=== PATIENT | female | born 1955 | race Caucasian/White ===

== ENCOUNTER → 2017-05-21 10:54 | Outpatient (CLI) | payer OTHER, SELFPAY ==
--- NOTE | 2017-05-21 10:57 | RAD_ITS ---
STUDY: X-RAY - SACROILIAC JOINTS REASON FOR EXAM: Female, 61 years old. Bilateral SI joint pain TECHNIQUE: 3 view(s) of the sacroiliac joints were obtained. COMPARISON: None. FINDINGS: Normal bilateral sacroiliac joints. Normal visualized sacral ala and sacrum. Normal visualized iliac bones. Normal visualized soft tissue structures. RAD/S-I Jts 3 or More Views IMPRESSION: Normal x-ray examination of the bilateral sacroiliac joints. Electronically Signed: Frederick Pemberton MD at 16:51 EDT , Service support ,
== END ==
PROVIDERS: Family Provider Internal Medicine; PCP Internal Medicine; Visit Provider Internal Medicine
DX: M53.3 Sacrococcygeal disorders, not elsewhere classified (principal)
CPT/HCPCS: 72202

== ENCOUNTER → 2017-06-14 09:54 | Outpatient (CLI) | payer OTHER, SELFPAY ==
[2017-06-14 12:35] LABS: AST(SGOT) 30 U/L (15-37); Alanine Aminotransfer ALT/SGPT 47 U/L (13-56); Alkaline Phosphatase 103 U/L (45-117); Bilirubin, Direct 0.07 mg/dL (0.00-0.30); Cholesterol 180 mg/dL (200); Globulin 3.6 g/dL (2.2-4.2); High Density Lipoprotein 35 mg/dL; Protein, Total 7.6 g/dL (6.4-8.2); Triglycerides 176 mg/dL; Very Low Density Lipoprotein 35 mg/dL (5-40)
== END ==
PROVIDERS: Family Provider Internal Medicine; PCP Internal Medicine; Visit Provider Internal Medicine Cardiovascular Disease
DX: E78.5 Hyperlipidemia, unspecified (principal); Z79.899 Other long term (current) drug therapy
CPT/HCPCS: 36415; 80061; 80076

== ENCOUNTER → 2017-07-07 10:51 | Outpatient (CLI) | payer OTHER, SELFPAY | PROVIDERS: Family Provider Internal Medicine; PCP Internal Medicine; Visit Provider Nurse Practitioner Family | DX: R00.2 Palpitations (principal) | CPT/HCPCS: 93225; 93226 ==

== ENCOUNTER → 2017-07-21 15:18 | Outpatient (CLI) | payer OTHER, SELFPAY ==
--- NOTE | 2017-07-21 15:22 | RAD_ITS ---
STUDY: X-RAY - LUMBAR SPINE REASON FOR EXAM: Female, 61 years old. Low back pain TECHNIQUE: 4 view(s) of the lumbar spine were obtained. COMPARISON: None FINDINGS: Normal lumbar lordosis. There is no substantial scoliosis. There is a normal alignment of the vertebrae. Normal vertebral bodies and endplates. Normal disc space heights. There is no demonstrated fracture. The soft tissue structures are unremarkable. RAD/L/S Spine Min 4 Views IMPRESSION: Normal x-ray examination of the lumbar spine. Electronically Signed: Durga Peñaloza MD at 8:28 EDT , Service support ,
== END ==
PROVIDERS: Family Provider Internal Medicine; PCP Internal Medicine; Visit Provider Anesthesiology Pain Medicine
DX: M54.5 Low back pain (principal); M79.604 Pain in right leg
CPT/HCPCS: 72110

== ENCOUNTER → 2017-08-13 12:11 | Outpatient (CLI) | payer OTHER, SELFPAY ==
--- NOTE | 2017-08-13 11:56 | BI_ITS ---
MAMMOGRAPHY - BILATERAL SCREENING REASON FOR EXAM: Female, 61 years old. Routine annual screening examination. PERTINENT HISTORY: NO FAM HX CURRENT PROGESTERONE CR X 6 MO NO SX TECHNIQUE: Digital bilateral breast compa (3D mammographic acquisition) in the CC and MLO projections. 2-D mediolateral oblique (MLO) and craniocaudad (CC) views of both breasts were obtained. CAD: Full Field Digital Mammography with Computer Added Detection was performed. COMPARISON: 08/11/2016, 08/08/2015, 08/03/2014 FINDINGS: Breast Composition: The breasts are heterogeneously dense, which may obscure small masses. There are no dominant masses or suspicious calcifications. No other significant abnormalities are identified. BI/SCREENING MAMM (CAD), BILAT IMPRESSION: Stable bilateral screening mammogram. Yearly follow-up mammogram recommended. (A) ASSESSMENT CATEGORY: BIRADS Category 2: Benign. A letter regarding these results will be sent to the patient by the facility within 30 days. Approximately 10% of breast cancers are not detected by mammography. A normal mammogram should not delay biopsy of a clinically suspicious abnormality. [id number] Electronically Signed: Kalpana Sharp MD at 13:51 EDT Tel , Service support ,
--- NOTE | 2017-08-13 12:11 | DT_ITS ---
This patient was seen during an EMR downtime August 09, 2017 - August 16, 2017. This patient may have a combination of paper and electronic documentation or all paper documentation. All documentation is viewable within the e-chart portion of [employer] for each patient visit.
== END ==
PROVIDERS: Family Provider Internal Medicine; PCP Internal Medicine; Visit Provider Obstetrics & Gynecology
DX: Z12.31 Encounter for screening mammogram for malignant neoplasm of breast (principal)
CPT/HCPCS: 77063; 77067

== ENCOUNTER → 2017-12-07 09:52 | Outpatient (CLI) | payer OTHER, SELFPAY ==
[2017-12-07 13:05] LABS: BNP,B-Type NATRIURETIC PEPTIDE 38.2 pg/mL (0-100)
== END ==
PROVIDERS: Family Provider Internal Medicine; PCP Internal Medicine; Visit Provider Nurse Practitioner Family
DX: R06.09 Other forms of dyspnea (principal); R07.89 Other chest pain; I34.1 Nonrheumatic mitral (valve) prolapse; R00.2 Palpitations
CPT/HCPCS: 36415; 83880; 84484

== ENCOUNTER 2017-12-09 16:00 | Outpatient (RCR) | payer OTHER, SELFPAY ==
--- NOTE | 2017-10-27 13:58 | HP.PTEVAL_ITS ---
Patient's Visit Information PING CHUNG is a 62 year old F referred to Physical Therapy by RA Vale with a diagnosis of LUMBOSACRAL INTERVERTEBRAL DISC,DISORDER SACRUM, SACROILITIS. Date of Evaluation: 10/27/17 Physical Therapist: Morgan Barnes, PT, - Visit Plan Frequency: 2x /Week Duration: 4 Weeks Plan: intailly pain releive intervention modalities ,progress to DLS for abd/ back SI progam,postural ex's - Subjective Subjective: This 62 y/o female presents to physical therapy with lumbar pain . Patient fell on ice Esther slipped landed buttuck/sacrum. Patient seen Dr Pugh recommended pain managemnet. Patient had epidural injections x2 . Did x- rays -. Recommended PT. Symptoms worse with sitting,bending,lifting . Patient symptoms better MEDS ,CP. Denies parathesia/tingling. Cooghing/sneezing -. Sleeping okay at night on sides. Patient has h/o lumbar pain. No treatmment. Patient symptoms affect QOL ,job demands ,and housework tasks. SOCIAL: . VOCATION: [employer] - Pain Bilateral Back Pain Intensity (Out of 10): 7 Pain Intensity Range: 10 - Objective POSTURE: mild foward posture. GAIT: normal aston reciprocal pattern. NEURO: reflexes L3-4,L4-5,L5-S1 2/3 ,. FLEXABLITY: hams min tight. SYMMTRIES: ALIGN. PALAPTION: tender SI. LUMBAR ROM: flexion min loss ,extension min loss,side glides min loss pain all planes of motion. TA ACTIVATION: poor - Special Tests L/S Slump test left side: Negative L/S Slump test right side: Negative L/S Left Straight Leg Raise: Negative L/S Right Straight Leg Raise: Negative Lumbar Standing: Flexion - Mechanical Response: No effect Lumbar Standing: Flexion - Symptoms During Testing: Increases Lumbar Standing: Flexion - Symptoms After Testing: No worse Lumbar Standing: Extension - Mechanical Response: No effect Lumbar Standing: Extension - Symptoms During Testing: Increases Lumbar Standing: Extension - Symptoms After Testing: No worse Lumbar Standing: Right Side Glides - Mechanical Response: No effect Lumbar Standing: Right Side [place] - Symptoms During Testing: Increases Lumbar Standing: Right Side [place] - Symptoms After Testing: No worse Lumbar Standing: Left Side [place] - Mechanical Response: No effect Lumbar Standing: Left Side [place] - Symptoms During Testing: Increases Lumbar Standing: Left Side [place] - Symptoms After Testing: No worse Lumbar Lying: Flexion - Mechanical Response: No effect Lumbar Lying: Flexion - Symptoms During Testing: Increases Lumbar Lying: Flexion - Symptoms After Testing: No worse Lumbar Lying: Extension - Mechanical Response: No effect Lumbar Lying: Extension - Symptoms During Testing: Increases Lumbar Lying: Extension - Symptoms After Testing: No worse - Goals Goal 1:: Patient to be Independant with HEP Goal Time Frame: 4-6 Weeks Goal 2:: Patient to be Independant with posture/body mechanics to decrease back pain Goal Time Frame: 4-6 Weeks Goal 3:: Patient to decrease lumbar pain by 50% or greater to improve function with ADL'S Goal Time Frame: 4-6 Weeks Goal 4:: Patient to improve lumbar ROM with less pain for function of recovery Goal Time Frame: 4-6 Weeks Goal 5:: Patient be able to perform ADL'S and job demands with min limioations Goal Time Frame: 4-6 Weeks Goal 6:: Patient improve low back owestry outconme scor by 5 points Goal Time Frame: 4-6 Weeks - Rehabilitation Potential Physical Therapy Diagnosis: This patient has L-S/SI dysfunction with pain which patient fell Prashanth on ice on buttucks thus causing pain with all activity and motion of lumbar ,affect ablioty with job demands thus benifit from skilled PT Rehabilitation Potential: Good - Anticipated Interventions Patient/Client Instruction: Educate patient on: Condition, Plan of Care For the Purpose of:: To decrease pain, To increase ROM, To improve muscle performance and motor function, To improve ability to perform ADL's, To increase tolerance to activity/condition/position, To improve ability of physical actions for home/community/work/leisure, To decrease soft tissue restriction, To increase flexibility/ROM, To improve ability to perform tasks related to life management Therapeutic Exercise to Include: Strength training, Body mechanics, Postural training, Flexibilty training, Dynamic Lumbar Stabilization For the Purpose of:: To decrease pain, To increase ROM, To improve muscle performance and motor function, To improve ability to perform ADL's, To increase tolerance to activity/condition/position, To decrease level of supervision to perform tasks, To improve health of tissue, To decrease soft tissue restriction, To increase flexibility/ROM, To improve ability to perform tasks related to life management TENS: Yes IF ES: Yes Cryotherapy (ice pack, ice massage): Yes Thermo therapy (hot pack): Yes Ultrasound (thermal/non thermal): Yes For the Purpose of:: To decrease pain, To increase ROM, To improve nutrient delivery to tissue, To increase oxygenation perfusion, To improve health of tissue, To decrease soft tissue restriction Thank you for the opportunity to evaluate your patient. For Medicare and Medicare HMO plans, please review the plan of care and approve it. It will need to be FAXED BACK to us at [phone] for Medicare purposes. Please let me know if there are questions or concerns regarding this plan of care. Physician Signature: Date:
--- NOTE | 2017-12-09 16:29 | HP.PTDCSUM ---
HP - PT D/C Summary It has been my pleasure to treat PING CHUNG under orders from Gloria Xie NP-C, for the diagnosis of LUMBOSACRAL INTERVERTEBRAL DISC,DISORDER SACRUM,SACROILITIS for a total of 14 visit(s). Discharge Date: 12/09/17 Please see the following information for a summary of their discharge status. - Subjective Subjective: Doing better.. Overall doing better pain intetmittant. Return to prior level before to injury. Doing ADL'S and job demands - Pain Bilateral Back Pain Intensity (Out of 10): 4 - Overall Improvement % Improvement: 65 - Objective Objective/Function: POSTURE: mild foward posture. GAIT: normal aston. PALAPTION: unremarkable. NEURO: denies parathesia/tingling,reflexes L3-4,L4-5 2/3. MMT: 07/10. LUMBAR ROM: flexion WNL ,extension MIN loss,side glides min loss. -SLR - Goals Goal 1:: Patient to be Independant with HEP Goal Progress: Goal Met Goal 2:: Patient to be Independant with posture/body mechanics to decrease back pain Goal Progress: Goal Met Goal 3:: Patient to decrease lumbar pain by 50% or greater to improve function with ADL'S Goal Progress: Goal Met Goal 4:: Patient to improve lumbar ROM with less pain for function of recovery Goal Progress: Goal Met Goal 5:: Patient be able to perform ADL'S and job demands with min limioations Goal 6:: Patient improve low back owestry outconme scor by 5 points Goal Progress: Goal Met - Plan Plan: D/C TO HEP - D/C Information Discharge Comments: HEP If there are questions or concerns regarding this patient's physical therapy, please feel free to call me at [phone]. Thank you for the referral of this patient. Sincerely, Morgan Barnes, PT,
== END 2017-12-09 19:00 | disposition home or self-care (01) ==
LOC: PT 16:00
PROVIDERS: Family Provider Internal Medicine; PCP Internal Medicine; Visit Provider Nurse Practitioner Family
DX: M54.17 Radiculopathy, lumbosacral region (principal); M51.37 Other intervertebral disc degeneration, lumbosacral region; M53.3 Sacrococcygeal disorders, not elsewhere classified; M25.9 Joint disorder, unspecified; M46.1 Sacroiliitis, not elsewhere classified
CPT/HCPCS: 97014; 97035; 97110; 97162; 97530; G0283

== ENCOUNTER → 2017-12-14 13:23 | Outpatient (CLI) | payer OTHER, SELFPAY ==
--- NOTE | 2017-12-14 13:25 | STEWCON_ITS ---
Stress Results Protocol: Stress Echocardiogram Maximum Predicted HR: 159 bpm Target HR: 135 bpm% Maximum Pr edicted HR: 157 % DurationHeart Rate Stage (mm:ss) (bpm) BPCom ment BASELINE 78 142/80 DILUTED DEFINITY 4 ML USED CHELA PROTOCOL- STAGE 1 3:00 13 1 160/84 CHELA PROTOCOL- STAGE 2 3:00 15 1 172/84 CHELA PROTOCOL- STAGE 3 2:18 25 0 / SVT , SOB RECOVERY 110 144/7 0 Stress Duration: 8:18 mm:ss Maximum Stress HR: 250 bpmM ETS: 9 Baseline Echocardiogram Findings Stress Echo Wall motion Data Resting WMIntermediate WMStress WM Resting Wall Motion Wall Motion Stress All segments Normal. All segments Hyperkinetic. Ejection Fraction 60 %. Ejection Fraction 75 %. Stress Results Heart rate response: appropriate Blood pressure response: resting hypertension - appropriate response Arrhythmias: a) exercise related intermittent episodes of PSVT (ventricular rates approximately 240 bpm) with spontaneous resolution towards baseline b) occasional PVCs during exercise / recovery c) rare ventricular couplets / triplets during recovery Functional capacity: good Stopped secndary to: dyspnea. EKG Data Baseline ECG: NSR. Exercise ECG: no obvious ECG changes. Symptoms with Stress No c/o chest discomfort during exercise / recovery. Interpretation Summary Negative (adequate) Stress Echocardiogram Negative (adequate) ECG ETT Cardiac dysrhythmias as noted above Ordering Physician: Larry Ngo Referring Physician: Larry Ngo Performed By: Millie Nieto, KATIA, RVT
== END ==
PROVIDERS: Family Provider Internal Medicine; PCP Internal Medicine; Referring Provider Nurse Practitioner Family; Visit Provider Nurse Practitioner Family
DX: R07.89 Other chest pain (principal); R06.09 Other forms of dyspnea
CPT/HCPCS: 93017; 93350; Q9957; C8928

== ENCOUNTER → 2018-02-16 12:29 | Outpatient (CLI) | payer OTHER, SELFPAY ==
--- NOTE | 2018-02-16 12:42 | MRI_ITS ---
STUDY: MRI LUMBAR SPINE WITHOUT CONTRAST REASON FOR EXAM: Female, 62 years old. LBP Lower Back Pain MRI - Lumbar, radiates into bilat hips, x 9 mons no known injury. TECHNIQUE: Standardized fat and water weighted pulse sequences were obtained in the sagittal and axial planes. COMPARISON: X-ray dated July 21, 2017 FINDINGS: T12-L1: There is minimal disc space narrowing and endplate spondylosis. There is no significant disc herniation, central canal or foraminal stenosis. There is straightening of the normal lumbar lordosis. There is no substantial scoliosis. Normal conus medullaris that terminates at the L1 L1-2: There is minimal disc space narrowing and endplate spondylosis. There is no significant disc herniation, central canal or foraminal stenosis. L2-3: There is mild disc space narrowing and endplate spondylosis. There is no significant disc herniation, central canal or foraminal stenosis. There is mild facet arthropathy L3-4: There is minimal disc space narrowing and endplate spondylosis. There is no significant disc herniation, central canal or foraminal stenosis. There is mild facet arthropathy. L4-5: There is minimal disc space narrowing and endplates spondylosis. There is a mild disc bulge asymmetric to the right with mild right foraminal stenosis. There is moderate facet arthropathy without significant central canal or left foraminal stenosis. L5-S1: There is minimal disc space narrowing and endplates spondylosis. There is moderate facet arthropathy. Normal visualized sacral ala. Normal visualized paraspinous soft tissue structures. MRI/Spine Lumbar (Routine) IMPRESSION: L4/L5: Mild right foraminal stenosis. Multilevel facet arthropathy. Electronically Signed: Victor Manuel Harden MD at 11:27 EST Tel , Service support ,
--- OUTSIDE RECORDS SUMMARY | 2018-04-04 15:49 | XMS RPT_ITS | Continuity of Care Document ---
:1955 Author Organization [facility] Address [address] [place] [address] Phone Care Team Providers Name Role Phone Leticia Pugh DO Unavailable Sangeetha ULLOA MD, Larry Powell Unavailable Jack Mayen MD Unavailable Jessica Cristobal Unavailable Sadiq Greer Unavailable Allie Caruso LPN Unavailable Unavailable Princess Kitchen Unavailable Unavailable Unavailable Unavailable Problems Name Dates Details Abnormal finding on thyroid function test (R94.6, 794.5) Status: Active BMI 31.0-31.9,adult (Z68.31, V85.31) Status: Active BMI 32.0-32.9,adult (Z68.32, V85.32) Status: Active BMI 33.0-33.9,adult (Z68.33, V85.33) Status: Active Cellulitis of abdominal wall (L03.311, 682.2) Status: Active Ceruminosis, bilateral (Renamed from Excessive cerumen in both ear canals) (H61.23, 380.4) Status: Active Cervical Radiculopathy (Renamed from Cervical nerve root disorder) (M54.12, 723.4) Status: Active Deliveries (Parity) Status: Active Diabetes mellitus type II, controlled, with no complications (E11.9, 250.00) Status: Active Dysuria (R30.0, 788.1) Status: Active Elevated blood sugar (R73.9, 790.29) Status: Active Gastroparesis (K31.84, 536.3) Comments: tolerable Status: Active GERD (gastroesophageal reflux disease) (K21.9, 530.81) Status: Active Hearing loss of right ear due to cerumen impaction (H61.21, 389.8) Status: Active Hearing loss on right (H91.91, 389.9) Status: Active Hypercholesteremia (E78.00, 272.0) Comments: h/o not tolerating statins Status: Active Hyperglycemia (R73.9, 790.29) Status: Active Hyperglycemia (R73.9, 790.29) Status: Active Impingement syndrome of shoulder region, unspecified laterality (M75.40, 726.2) Status: Active Insomnia, unspecified (G47.00, 780.52) Status: Active Low back pain potentially associated with radiculopathy (M54.5, 724.2) Comments: progressed to radiculopathy -- never used musle relaxant Status: Active Mild carpal tunnel syndrome (G56.00, 354.0) Status: Active Night sweats (R61, 780.8) Comments: ldh, tsh, lab s neg ppd neg - cxr neg - 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 when ck in middle of nite-- depending what traditional pipe smoker machine operator says maybe consider saliva testingwith recent abd wall abscess - was getting them before then went away then with infection came back- no hot flashes during the day-- sugars are up even though gave different meds when stopped victoza Status: Active Night sweats (R61, 780.8) Comments: endocrine thinks more menopausal related Status: Active Nonsmoker (Z78.9, V49.89) Status: Active Non-smoker (Z78.9, V49.89) Status: Active Osteoarthritis, unspecified osteoarthritis type, unspecified site (M19.90, 715.90) Comments: stable Status: Active Other dysphagia (R13.19, 787.29) Comments: worked up 2015 saw GI- w/u unremarkalbe so no EGD was done-- but still having random chest pressure and can throw up food when hits and cant swallow Status: Active Other specified abnormal findings of blood chemistry (R79.89, 790.6) Comments: NEW Status: Active Pneumococcal vaccination declined (Z28.21, V64.06) Status: Active Pneumococcal vaccination given (Z23, V06.6) Status: Active Pregnancies () Comments: 2 Status: Active Right ear pain (H92.01, 388.70) Comments: resolved Status: Active Sacroiliac joint pain (M53.3, 724.6) Status: Active Screening examination for pulmonary tuberculosis (Z11.1, V74.1) Status: Active Sinusitis (J32.9, 473.9) Status: Active Sore throat (J02.9, 462) Status: Active Stress reaction (F43.0, 308.9) Status: Active Subclinical hypothyroidism (E03.9, 244.8) Status: Active Tinnitus of both ears (H93.13, 388.30) Comments: [facility] ?? [facility] >pt to look into - Status: Active Type II diabetes mellitus, well controlled (E11.9, 250.00) Status: Active Unspecified Diagnosis Status: Active Urethritis (N34.2, 597.80) Status: Active Vitamin B deficiency (E53.9, 266.9) Status: Active Vitamin B12 deficiency (non anemic) (E53.8, 266.2) Status: Active Vitamin D deficiency, unspecified (E55.9, 268.9) Status: Active Medications Name Dates Details ASPIRIN CHILDRENS, 81MG (Oral Tablet Chewable) 1 (one) Tablet Chewable qd for 0 days Quantity: 30 {Tablet} Refills: 3 Ordered:13-Dec-2014 Shari Pugh DO, DO, Kathleen Start : 13-Dec-2014 Active Benadryl Allergy 25 MG Oral Capsule 1 (one) Capsule Capsule TAD for 0 days Quantity: 30 {Capsule} Refills: 0 Ordered:03-Jul-2016 Yennifer Loya LPN Start : 19-May-2016 Active COLESTIPOL HCL, 1GM (Oral Tablet) 2 (two) Tablet Tablet qd for 30 days Refills: 0 Ordered:31-Aug-2013 Shari Pugh DO, DO, Kathleen Start : 25-May-2013 Active FREESTYLE LITE TEST (In Vitro Strip) 1 Strip up to tid for 0 days Quantity: 1 {box(s)} Refills: 3 Ordered:28-Oct-2011 Chana Jewell Start : 28-Oct-2011 Active Norvasc 5 MG Oral Tablet 1 (one) Tablet Tablet qd for 0 days Quantity: 30 {Tablet} Refills: 3 Ordered:19-Aug-2016 Shari Pugh DO, DO, Kathleen Start : 19-Aug-2016 Active DYNAMICS AX TECHNICAL ARCHITECT Thyroid 30 MG Oral Tablet 1 (one) Tablet Tablet daily as directed for 0 days Quantity: 30 {Tablet} Refills: 5 Ordered:13-May-2017 Shari Pugh DO, DO, Kathleen Start : 04-Mar-2017 Active Pen [place] 31G X 6 MM Miscellaneous 1 Misc qd for 0 days Quantity: 1 {Box} Refills: 4 Ordered:20-Dec-2017 Shari Pugh DO, DO, Kathleen Start : 20-Dec-2017 Active Prevacid 30 MG Oral Capsule Delayed Release [address] qd for 0 days Quantity: 90 {Capsule} Refills: 1 Ordered:03-Jul-2016 Yennifer Loya LPN Start : 03-Jul-2016 Active Comments:before a meal Trulicity 1.5 MG/0.5ML Subcutaneous Solution Pen-injector 1 (one) Injection q week for 30 days Quantity: 1 {Box} Refills: 3 Ordered:21-Jul-2017 Yamilex Duffy Start : 21-Jul-2017 Active Trulicity 1.5 MG/0.5ML Subcutaneous Solution Pen-injector 1 (one) Soln Pen-inj Soln Pen-inj q week for 40 days Quantity: 4 {Pre-filled_Pen_Syringe} Refills: 3 Ordered:23-Jul-2016 Long MINING HELPERAllie L Start : 23-Jul-2016 Active Victoza 18 MG/3ML Subcutaneous Solution Pen-injector 1.8 Milligram qd sc for 0 days Quantity: 3 {Pre-filled_Pen_Syringe} Refills: 3 Ordered:13-Sep-2017 Shari Pugh DO, DO, Kathleen Start : 13-Sep-2017 Active Zetia 10 MG Oral Tablet 1 Tablet qd for 0 days Quantity: 30 {Tablet} Refills: 2 Ordered:13-Sep-2017 Lexy ISAACS LeticiaDariuszpatricia ISAACS Leticia Start : 13-Sep-2017 Active Comments:pt hasnt tolerated 3 different statins( crestor, simvastatin, lovastatin, and whelcol) please ask insurance company to cover AMBIEN CR, 6.25MG (Oral Tablet Extended Release) 1/2 Tablet ER qhs / HS for 0 days Quantity: 15 {Tablet_ER} Refills: 1 Ordered:15-Feb-2012 Yennifer Loya LPN End : 15-Feb-2012 Inactive Augmentin 875-125 MG Oral Tablet 1 (one) Tablet bid for 14 days Quantity: 28 {Tablet} Refills: 0 Ordered:05-Jan-2017 Tanvi Hawthorne CNP Start : 05-Jan-2017 End : 19-Jan-2017 Inactive Bactrim DS 800-160 MG Oral Tablet 1 (one) Tablet bid for 0 days Quantity: 20 {Tablet} Refills: 0 Ordered:29-Jan-2016 Yennifer Loya LPN Start : 13-Dec-2015 End : 29-Jan-2016 Inactive CARAFATE, 1GM (Oral Tablet) 1 (one) Tablet AC AND QHS for 0 days Quantity: 120 {Tablet} Refills: 2 Ordered:18-May-2007 Yennifer Loya LPN Start : 18-May-2007 End : 14-May-2008 Inactive CELEBREX, 200MG (Oral Capsule) 1 Capsule BID prn for 0 days Refills: 0 Ordered:07-Aug-2008 EVONNE Anderson Start : 14-May-2008 End : 07-Aug-2008 Inactive CELEXA, 20MG (Oral Tablet) 1 Tablet qd for 0 days Quantity: 30 {Tablet} Refills: 0 Ordered:15-Feb-2012 Yennifer Loya LPN Start : 17-Dec-2010 End : 15-Feb-2012 Inactive Comments:please substitute generic CIPRO, 500MG (Oral Tablet) 1 Tablet bid for 7 days Quantity: 14 {Tablet} Refills: 0 Ordered:29-Oct-2014 Tanvi Hawthorne CNP Start : 29-Oct-2014 End : 05-Nov-2014 Inactive CIPROFLOXACIN HCL, 500MG (Oral Tablet) 1 Tablet bid for 0 days Quantity: 20 {Tablet} Refills: 0 Ordered:15-Feb-2012 Yennifer Loya LPN Start : 09-Oct-2011 End : 15-Feb-2012 Inactive CYMBALTA, 30MG (Oral Capsule Delayed Release Particles) [address] Part qd for 0 days Quantity: 30 {Capsule_DR_Part} Refills: 0 Ordered:22-Sep-2010 Yennifer Loya LPN Start : 19-Sep-2010 End : 22-Sep-2010 Inactive DIFLUCAN, 150MG (Oral Tablet) 1 (one) Tablet q72 h x 2 doses for 0 days Quantity: 2 {Tablet} Refills: 0 Ordered:13-Dec-2014 Allie Caruso LPN Start : 23-Oct-2014 End : 13-Dec-2014 Inactive DOXEPIN HCL, 100MG (Oral Capsule) 1 Capsule qhs for 0 days Quantity: 30 {Capsule} Refills: 1 Ordered:17-Dec-2010 Yennifer Loya LPN Start : 17-Nov-2010 End : 17-Dec-2010 Inactive DRISDOL, 59557EMBV (Oral Capsule) 1 Capsule 2 xweek for 0 days Quantity: 8 {Capsule} Refills: 4 Ordered:19-Dec-2010 Yennifer Loya LPN Start : 29-Sep-2010 End : 19-Dec-2010 Inactive ERYTHROMYCIN ETHYLSUCCINATE, 400MG (Oral Tablet) 1/2 (one half) Tablet BID for 0 days Quantity: 30 {Tablet} Refills: 4 Ordered:19-May-2010 Shari Pugh DO, DO, Kathleen Start : 19-May-2010 End : 19-May-2010 Inactive ETODOLAC ER, 400MG (Oral Tablet Extended Release 24 Hour) 2 (two) Tablet ER 24HR qd with food for 0 days Quantity: 30 {Tablet_ER_24HR} Refills: 0 Ordered:15-Feb-2012 Yennifer Loya LPN Start : 24-Sep-2011 End : 15-Feb-2012 Inactive Ketorolac Tromethamine 10 MG Oral Tablet 1 (one) Tablet q6hr for 30 days Quantity: 20 {Tablet} Refills: 0 Ordered:31-May-2017 Yamilex Duffy Start : 31-May-2017 End : 30-Jun-2017 Inactive Comments:had injectable loading dose LIPITOR, 10MG (Oral Tablet) 1 Tablet qd for 30 days Quantity: 30 {Tablet} Refills: 5 Ordered:24-Nov-2012 Carmela Chery Start : 18-Aug-2012 End : 24-Nov-2012 Inactive LUNESTA, 2MG (Oral Tablet) 1 (one) Tablet qhs prn for 0 days Refills: 0 Ordered:28-May-2009 EVONNE Anderson Start : 01-Oct-2008 Inactive MACRODANTIN, 100MG (Oral Capsule) 1 Capsule bid for 7 days Quantity: 14 {Capsule} Refills: 0 Ordered:06-Jan-2011 Tanvi Hawthorne CNP Start : 06-Jan-2011 End : 13-Jan-2011 Inactive METAXALONE, 800MG (Oral Tablet) 1 Tablet tid prn for 0 days Quantity: 30 {Tablet} Refills: 0 Ordered:15-Feb-2012 Yennifer Loya LPN Start : 24-Sep-2011 End : 15-Feb-2012 Inactive MetFORMIN HCl ER 500 MG Oral Tablet Extended Release 24 Hour 2 (two) Tablet ER 24HR bid for 0 days Quantity: 120 {Tablet} Refills: 3 Ordered:20-Mar-2016 Carmela Chery Start : 24-Feb-2016 End : 20-Mar-2016 Inactive ONGLYZA, 5MG (Oral Tablet) 1 Tablet qd for 0 days Quantity: 30 {Tablet} Refills: 3 Ordered:15-Feb-2012 Yennifer Loya LPN Start : 24-Sep-2011 End : 15-Feb-2012 Inactive PREDNISOLONE ACETATE, 1% (Ophthalmic Suspension) 1 Suspension qid for 10 days Refills: 0 Ordered:31-Mar-2012 Shari Pugh DO, DO, Kathleen Start : 15-Feb-2012 End : 25-Feb-2012 Inactive PREDNISONE, 20MG (Oral Tablet) 1 Tablet qd for 5 days Quantity: 5 {Tablet} Refills: 0 Ordered:11-Apr-2014 Shari Pugh DO, DO, Kathleen Start : 11-Apr-2014 End : 16-Apr-2014 Inactive Comments:with food PREVACID, 30MG (Oral Capsule Delayed Release) [address] QD for 0 days Quantity: 90 {Capsule_DR} Refills: 3 Ordered:02-Jun-2010 Yennifer Loya LPN Start : 17-Sep-2009 End : 02-Jun-2010 Inactive Comments:to front PREVPAC (Oral Miscellaneous) tad Misc uad for 0 days Quantity: 1 {Package(s)} Refills: 0 Ordered:02-Jun-2010 Yennifer Loya LPN Start : 19-May-2010 End : 02-Jun-2010 Inactive PROZAC, 20MG (Oral Capsule) 1 Capsule qd for 0 days Quantity: 30 {Capsule} Refills: 1 Ordered:17-Dec-2010 Yennifer Loya LPN Start : 17-Nov-2010 End : 17-Dec-2010 Inactive PYRIDIUM, 100MG (Oral Tablet) 1 Tablet tid for 2 days Quantity: 6 {Tablet} Refills: 0 Ordered:05-Nov-2014 Tanvi Hawthorne CNP Start : 05-Nov-2014 End : 07-Nov-2014 Inactive Repatha 140 MG/ML Subcutaneous Solution Prefilled Syringe 1 (one) Soln Pref Syr Soln Pref Syr every other week for 0 days Quantity: 2 {Dose_Pack} Refills: 0 Ordered:06-Dec-2015 Yennifer Loya LPN Start : 05-Sep-2015 End : 06-Dec-2015 Inactive SAVELLA TITRATION PACK, 12.5 & 25 & 50MG (Oral Miscellaneous) 1 Misc qd for 0 days Quantity: 30 {Misc} Refills: 0 Ordered:14-Nov-2010 Kassidy Ayala Start : 13-Oct-2010 End : 14-Nov-2010 Inactive SIMVASTATIN, 20MG (Oral Tablet) 1 Tablet qd for 30 days Refills: 0 Ordered:17-Nov-2010 Yennifer Loya LPN Start : 17-Nov-2010 End : 17-Dec-2010 Inactive SUCRALFATE, 1GM/10ML (Oral Suspension) 10 Milliliter qid for 14 days Quantity: 560 {Milliliter} Refills: 0 Ordered:15-Mar-2015 Christoph CHOPRA Shey Start : 15-Mar-2015 End : 29-Mar-2015 Inactive Comments:1hr before meals TOPICORT LP, 0.05% (External Cream) tad Cream bid for 0 days Quantity: 15 {Cream} Refills: 0 Ordered:19-May-2010 Yennifer Loya LPN Start : 28-May-2009 End : 19-May-2010 Inactive Comments:apply sparingly to affected area on eye lid bid for 7 days VALIUM, 2MG (Oral Tablet) 1-2 Tablet bid for 5 days Quantity: 20 {Tablet} Refills: 0 Ordered:22-Oct-2011 Shari Pugh DO, DO, Kathleen Start : 09-Oct-2011 End : 14-Oct-2011 Inactive Comments:twenty ZOSTAVAX, 31884BVA/0.65ML (Subcutaneous Solution Reconstituted) 1 For Solution x1 for 0 days Quantity: 1 {For_Solution} Refills: 0 Ordered:25-May-2013 Yennifer Loya LPN Start : 24-Nov-2012 End : 25-May-2013 Inactive ASPIRIN LOW DOSE, 81MG (Oral Tablet) 1 qd for 0 days Refills: 0 Ordered:23-Oct-2014 Maia Carlos LPN End : 23-Oct-2014 Discontinued CELEBREX, 100MG (Oral Capsule) 1 (one) Capsule bid for 0 days Quantity: 60 {Capsule} Refills: 3 Ordered:15-Mar-2015 Christoph CHOPRA Shey Start : 13-Dec-2014 End : 15-Mar-2015 Discontinued Comments:per Dr Delio ESCUDEROMBALTA, 60MG (Oral Capsule Delayed Release Particles) [address] Part qd for 0 days Quantity: 30 {Capsule_DR_Part} Refills: 0 Ordered:17-Nov-2010 Shari Pugh DO, DO, Kathleen Start : 17-Nov-2010 End : 17-Nov-2010 Discontinued Comments:diarrhea ERGOCALCIFEROL, 23047UHHW (Oral Capsule) 1 (one) Capsule q week for 0 days Quantity: 4 {Capsule} Refills: 3 Ordered:05-Sep-2015 Shari Pugh DO, DO, Kathleen Start : 05-Sep-2015 End : 05-Sep-2015 Discontinued Januvia 100 MG Oral Tablet 1 Tablet qd for 30 days Quantity: 30 {Tablet} Refills: 3 Ordered:20-Mar-2016 Shari Pugh DO, DO, Kathleen Start : 20-Mar-2016 End : 20-Mar-2016 Discontinued Levothyroxine Sodium 88 MCG Oral Tablet for 0 days Refills: 0 Ordered:04-Mar-2017 Shari Pugh DO, DO, Kathleen Start : 04-Mar-2017 End : 04-Mar-2017 Discontinued METAXALONE, 800MG (Oral Tablet) 1 (one) Tablet Tablet tid prn for 0 days Quantity: 30 {Tablet} Refills: 0 Ordered:23-Oct-2014 Maia Carlos LPN Start : 11-Apr-2014 End : 23-Oct-2014 Discontinued NEURONTIN, 300MG (Oral Capsule) 1 (one) Capsule Capsule qhs for 5 days then bid for 0 days Quantity: 60 {Capsule} Refills: 0 Ordered:23-Oct-2014 SlaMaia parson LPN Start : 11-Apr-2014 End : 23-Oct-2014 Discontinued SAVELLA, 50MG (Oral Tablet) 1 Tablet BID for 0 days Quantity: 60 {Tablet} Refills: 3 Ordered:17-Nov-2010 Shari Pugh DO, DO, Kathleen Start : 17-Nov-2010 End : 17-Nov-2010 Discontinued Comments:constipation and no effect after 6 weeks anyway VIIBRYD, 10MG (Oral Tablet) 1 Tablet qd for 0 days Quantity: 1 {Tablet} Refills: 0 Ordered:29-Sep-2010 Shari Pugh DO, DO, Kathleen Start : 29-Sep-2010 End : 29-Sep-2010 Discontinued Comments:sample pack given-- diarrhea WELCHOL, 625MG (Oral Tablet) 3 (three) Tablet bid for 0 days Quantity: 180 {Tablet} Refills: 3 Ordered:16-May-2012 Shari Pugh DO, DO, Kathleen Start : 16-May-2012 End : 16-May-2012 Discontinued Comments:too many pills Allergies and Adverse Reactions Name Dates Details No Known Allergies (Allergy) Onset: 31-Aug-2013 Status: Active No Known Drug Allergies (Allergy) Status: Active Past Medical History Name Dates Details Abdominal pain (R10.9, 789.00) Comments: mid epigastric Status: Inactive as of 16-May-2015 Abdominal pain, acute, right upper quadrant (R10.11, 789.01) Status: Inactive as of 16-May-2012 Abscess, abdomen (K65.1, 567.22) Status: Resolved as of 13-Feb-2016 Blurred vision (H53.8, 368.8) Status: Inactive as of 16-May-2015 BMI 31.0-31.9,adult (Z68.31, V85.31) Status: Inactive as of 05-Jan-2017 BMI 32.0-32.9,adult (Z68.32, V85.32) Status: Inactive as of 05-Jan-2017 Cellulitis of skin (L03.90, 682.9) Status: Resolved as of 29-Jan-2016 Chest pain (R07.9, 786.50) Status: Inactive as of 16-May-2015 Chest pain (R07.9, 786.59) Status: Inactive as of 28-May-2009 Chest pain at rest (R07.9, 786.50) Comments: ? GI caouse or cardio think gastro will restart prevacid get labs,holter Status: Inactive as of 16-May-2015 Cognitive change (R41.89, 799.59) Comments: improved wiht B12 but not resolved Status: Inactive as of 16-May-2015 Congestion of right ear (H93.8X1, 388.8) Comments: occuring after ear pain and after augmentin,has tried sudafed, sweet oil, irrigated today with no wax and no relief Status: Inactive as of 04-Mar-2017 Cystitis, acute (N30.00, 595.0) Status: Inactive as of 16-May-2015 Epigastric pain (R10.13, 789.06) Status: Resolved as of 16-May-2012 Foot pain (M79.673, 729.5) Comments: referto [place] orhto new pod Status: Inactive as of 16-May-2015 Gastritis, acute (K29.00, 535.00) Comments: Esophageoduodenoscopy 07-10-07 Status: Inactive as of 28-May-2009 Hot flashes (N95.1, 627.2) Comments: black cohosh and evening primrose and try natural product at dr waite office Status: Inactive as of 16-May-2015 Impaired fasting glucose (R73.01, 790.21) Status: Inactive as of 04-Mar-2017 Jaw pain (R68.84, 784.92) Comments: has TMJ does not always wear bite plate Status: Inactive as of 16-May-2015 Knee pain (M25.569, 719.46) Comments: ? ETIOLOGY MENISCAL TEAR? X-RAY SHOW MILD OA -- NOT SURE SOLE ETIOLOGY FOR PAIN Status: Inactive as of 16-May-2012 Low back pain (M54.5, 724.2) Status: Inactive as of 16-May-2012 Memory impairment (R41.3, 780.93) Comments: improved with B12 Status: Inactive as of 05-Sep-2015 Muscle cramps (R25.2, 729.82) Comments: bacilio ok on lab -- had surgery there-- will look to see if has cataplex F at home ??-- if not consider calactate, cat F or mag lactate-- discussed hydeation , stretch too Status: Inactive as of 06-Dec-2015 Muscle spasm (M62.838, 728.85) Status: Inactive as of 16-May-2015 Myalgia (M79.10, 729.1) Comments: on statins -- currently on zetia and no problems but # but not be at goal -- lab reslults going todr moodisspw Status: Resolved as of 25-May-2013 Neck Pain (Renamed from Cervical pain) (M54.2, 723.1) Status: Inactive as of 06-Dec-2015 Need for Tdap vaccination (Renamed from Need for lccjjhvfjd-fzhxwez-mcwrxbweg (Tdap) vaccine, adult/adolescent) (Z23, V06.1) Status: Inactive as of 16-May-2015 Neoplasm of uncertain behavior of skin (D48.5, 238.2) Status: Inactive as of 16-May-2012 Pain in joint, unspecified site (719.40) Comments: combinationof jt adn muscle Status: Inactive as of 16-May-2015 Pre-operative examination (Z01.818, V72.84) Status: Inactive as of 16-May-2015 Shoulder pain (M25.519, 719.41) Comments: partial and full thickness tear of m in rotator cuff Status: Inactive as of 19-Sep-2008 Sinus pressure (J34.89, 478.19) Status: Inactive as of 04-Mar-2017 SYMPTOMS INVOLVING RESPIRATORY SYSTEM AND OTHER CHEST SYMPTOMS; SWELLING, MASS, OR LUMP IN CHEST (786.6) Status: Inactive as of 28-May-2009 Toe pain, left (M79.675, 729.5) Status: Resolved as of 04-Mar-2017 Unspecified Diagnosis Status: Inactive as of 16-May-2015 Unspecified Diagnosis Status: Inactive as of 16-May-2015 Unspecified Diagnosis Status: Inactive as of 16-May-2015 Urinary frequency (R35.0, 788.41) Comments: will extend antiiotic while await cx results to see if still infection presnet or not-no blood in ua-- if no infrction its her overactive bladder rev in consult note from dr saravia 2010 and took oxybutr in XL 10 mg qd for 8 weeks and she remembers it helping but does not know why didnt stay on it-- we can rerx if need to Status: Inactive as of 16-May-2015 UTI symptoms (R39.9, 788.99) Status: Inactive as of 16-May-2015 Vaginal burning (N94.9, 625.8) Comments: used monistat Status: Inactive as of 16-May-2015 Procedures Procedure Dates Details Hysterectomy; Vaginal Completed Comments: 2001 left tendon tear left leg Completed Rt shoulder sx Completed Comments: 09/03/08 Thyroid biopsy Completed Appendectomy Completed Comments: 2004 Date Value Details 14-Dec-2017 Stress Test Echo w/ Contrast Result: Comments: See Note; NOTES: [facility] Cardiovascular Services [address] [place] [id number] Stress Test Echo W/Contrast MR#: [id number] Acct: [id number] Name: RADHA RAMOS Rep #: [id number] : 1955 62 From: Marcus Sánchez MD Primary Care: Leticia Pugh DO Status: REG CLI Ordering Dr: Larry Ngo DYNAMICS AX TECHNICAL ARCHITECT-C Sex: F C Stress Results Protocol: Stress Echocardiogram Maximum Predicted HR: 159 bpm Target HR: 135 bpm% Maximum Pr edicted HR: 157 % DurationHeart Rate Stage (mm:ss) (bpm) BPCom ment BASELINE 78 142/80 DILUTED DEFINITY 4 ML USED FABRICIO PROTOCOL- STAGE 1 3: 00 13 1 160/84 FABRICIO PROTOCOL- STAGE 2 3:00 15 1 172/84 FABRICIO PROTOCOL- STAGE 3 2:18 25 0 / SVT , SOB RECOVERY 110 144/7 0 Stress Duration: 8:18 mm:ss Maximum Stress HR: 250 bpmM ETS: 9 Baseline Echo cardiogram Findings Stress Echo Wall motion Data Resting WMIntermediate WMStress WM Resting Wall Motion Wall Motion Stress All segments Normal. All segments Hyperkinetic. Ejection Fraction 60 %. Eject ion Fraction 75 %. Stress Results Heart rate response: appropriate Blood pressure response: resting hypertension - appropriate response Arrhythmias: a) exercise related intermittent episodes of PSVT (v entricular rates approximately 240 bpm) with spontaneous resolution towards baseline b) occasional PVCs during exercise / recovery c) rare ventricular couplets / triplets during recovery Functional cap[place]: good Stopped secndary to: dyspnea. EKG Data Baseline ECG: NSR. Exercise ECG: no obvious ECG changes. Symptoms with Stress No c/o chest discomfort during exercise / recovery. Interpretation Summ rikki Negative (adequate) Stress Echocardiogram Negative (adequate) ECG ETT Cardiac dysrhythmias as noted above __ Ordering Physician: Larry Ngo Referring Physician: Larry Ngo Performed By: Millie Nieto, KATIA, RVT 12/14/17 1521 Date Marcus Sánchez MD CC: DEMETRICE Pugh DO Date Dictated: 12/14/17 1343 Date Transcribed: 12/14/17 1521 Field Gauger: Signed 10-Dec-2017 PT D/C Summary (1) Result: Comments: See Note; NOTES: [facility] Physical Therapy Health[address] [place], [place] [address] Fax REHABILITATION SERVICES DISCHAR SUMMARY MR#: [id number] Acct: [id number] Name: RADHA RAMOS Rep #: [id number] : 1955 62 From: Morgan Barnes PT, Cert. T, OCS Referring DrDomenic: Gloria KNAPP Prebish Status: REG RCR Insuranc e: [employer] - PT D/C Summary It has been my pleasure to treat RADHA RAMOS under orders from RA Vale, for the diagnosis of LUMBOSACRAL INTERVERTEBRAL DISC,DISORDER SACRUM,SACROILITIS for a total of 14 visit(s). Discharge Date: 12/09/17 Please see the following information for a summary of their discharge status. - Subjective Subjective: Doing better.. Overall doing better pain intetmittant. Return to prior level before to injury. Doing ADL'S and job demands - Pain Bilateral Back Pain Intensity (Out of 10): 4 - Overall Improvement % Improvement: 65 - Ob jective Objective/Function: POSTURE: mild foward posture. GAIT: normal aston. PALAPTION: unremarkable. NEURO: denies parathesia/tingling,reflexes L3-4,L4-5 /. MMT: 07/10. LUMBAR ROM: flexion WNL ,exte nsion MIN loss,side glides min loss. -SLR - Goals Goal 1:: Patient to be Independant with HEP Goal Progress: Goal Met Goal 2:: Patient to be Independant with posture/body mechanics to decrease back katharine n Goal Progress: Goal Met Goal 3:: Patient to decrease lumbar pain by 50% or greater to improve function with ADL'S Goal Progress: Goal Met Goal 4:: Patient to improve lumbar ROM with less pain for func tion of recovery Goal Progress: Goal Met Goal 5:: Patient be able to perform ADL'S and job demands with min limioations Goal 6:: Patient improve low back owestry outconme scor by 5 points Goal Progress: Goal Met - Plan Plan: D/C TO HEP - D/C Information Discharge Comments: HEP If there are questions or concerns regarding this patient's physical therapy, please feel free to call me at [phone]. T elton you for the referral of this patient. Sincerely, Morgan Barnes PT, <Electronically signed by Morgan Barnes PT, Cert. T, OCS> 12/10/17 0758 CC: Leticia Xie JOSSELINE Signed 07-Dec-2017 Cardiology Visit Report Result: Comments: See Note; NOTES: [facility] [address] [place] [address] OFFICE VISIT Date of Service: 12/07/17 MR#: [id number] Acct: [id number] Name: RADHA RAMOS Rep #: [id number] : 1955 Provider: DEMETRICE Ngo Age/Sex: 62/F Location[place] [facility] Status: Signed HPI HPI Details: RADHA RAMOS, is a 62 F who presents to the office today for a cardiovascular o utpatient follow-up. She has a history of atypical chest discomfort, palpitations, hyperlipidemia and diabetes. She states over the week she notices changing chest pressure that radiates to her bilater al upper biceps and bilateral jaw. She states with the chest pressure she notices she has to "take an extra breath. It worse when lying down and improved when sitting up. The pain appea rs to be increasing in duration. With the chest pain she feels nauseated and diaphoretic. At times she rates the pain 8-9/10. She states SOB when going up steps this week. She states her exercise capaci ty and energy level has decreased over the last week. Her palpitations have not worsened or changed. She denies lightheadedness, dizziness, near syncopal or syncopal episodes. Pt denies edema or claudi cation issues. Pt. denies PND, fever, chills, blood in urine, blood in stool, or myalgia. She denies any recent illness. She states a month ago she was stung by a bee below her left eye. Her thryoid me dication has been adjusted recently and she states with this adjustment her appetite has increased and her hemoglobin A1C has increased. Intake Vital Signs12/07/17 Height 5 ft 5 in 12/07/17 Weight: 192 lb 12/07/17 Body Mass Index (BMI) 31.9 12/07/17 Blood Pressure 130/76 H Intake Visit Reasons: PT REQ / NOT FEELING WELL Allergies pravastatin [From Pravachol] Adverse Reaction (Severe, Verified 06/06 11/23 14:32) Myalgias atorvastatin [From Lipitor] Adverse Reaction (Intermediate, Verified 06/24/17 14:32) Muscle pain simvastatin [From Zocor] Adverse Reaction (Intermediate, Verified 06/24/17 14:32) My algias Medications Cyanocobalamin [Vitamin B12] 100 mcg SC UD 09/24/14 [History Confirmed 06/24/17] Ezetimibe [Zetia] 10 mg PO DAILY 09/24/14 [History Confirmed 06/24/17] Liraglutide [Victoza 2-Balbir] 0.1 - 8 mg SQ QHS 09/24/14 [History Confirmed 06/24/17] Aspirin 81 mg PO DAILY 12/23/15 [History Confirmed 06/24/17] cholecalciferol (vitamin D3) 2,000 unit tablet See Rx Instructions PO QDAY 06/22/17 [ History Confirmed 06/24/17] oxybutynin chloride ER 5 mg tablet,extended release 24 hr 5 mg PO QDAY 06/24/17 [History Confirmed 06/24/17] metoprolol tartrate 25 mg tablet See Rx Instructions PO BID tab 0 07/02/17 [History] colestipol 1 gram tablet 2 g PO DAILY #60 tab 07/07/17 [Rx] PFSH Medical History Mixed hyperlipidemia (Chronic) Atypical chest pain (Chronic) Encounter for long-term current use of high risk medication (Chronic) Palpitations (Chronic) Mitral valve prolapse (Chronic) Wound, open, abdominal wall, anterior (Acute) Diabetes mellitus (Chronic) Abscess of abdominal wall (Acute) Post-op pain (Acute) Chest pain (Acute) Night sweats (Acute) Surgical History History of knee surgery (Resolved) Hx of cholecystectomy (Resolved) H/O foot surgery (Resolved) H/O: hysterectomy (Resolved) H/O shoulder surgery (Resolved) S/P foot surgery (Resolved) Hx of appendectomy (Resolved) Family History Mother CAD (coronary artery disease) Heart disease Hypertension Diabetes Father Brain tumor Cancer Brother Aortic aneurysm Social History Smoking Status: Never smoker alcohol intake: never substance use type: does not use diet: low carbohydrate caffeine: Yes Type: carbonated beve rages Number of servings: 1 what type of physical activity do you participate in: none seatbelt use: always do you feel safe at home: Yes ROS Const Const: Positive for fatigue and excessive sweating ; negative for weakness, body ache, fever(s) or chills ENT ENT: Negative for dizziness Cardio Chest Pain: Yes Palpitations: Yes Edema: None Muscle aches with walking: None Resp Respiratory: Positive for SOB with activity and SOB orthopnea\SOB lying down; negative for SOB at rest, paroxysmal nocturnal dyspnea, Cough or chest congestion GI GI: Positive for nausea; negative black,tarry stools, bright, re d blood in stools or vomiting blood/hematemesis : Negative for hematuria or frequent nighttime urination/ nocturia Musc Musc: Negative for muscle aches/ myalgia Skin Skin: Negative non-healing lesi ons or rash Neuro Neuro: Negative for weakness, dizziness, lightheadedness, near syncope, syncope or orthostatic symptoms Endo Endo: Positive for fatigue and excessive sweating Allergy Allergy/Immunolog y: Negative for rash Cardiology Exam Const Appearance: cooperative, no acute distress, well developed and healthy appearing; negative acute distress Orientation: alert, awake and oriented x3 Head Head : normocephalic, atraumatic and normal to inspection Ears: hearing grossly normal bilaterally Nose: external nose normal Face and Sinus: face symmetric Mouth: moist mucous membranes Eyes General: appear ance normal, both eyes and all related structures Conjunctivae: conjunctivae normal Pupils: PERRL EOM: EOM intact bilaterally Neck Neck: normal visual inspection, no lymphadenopathy and no JVD Carotids: Negative bruit Neck Mass: Negative Neck mass Chest Chest inspection: normal inspection of the chest, symmetric chest movement and normal respiratory effort Auscultation: Bilateral: Clear to Auscultatio n Cardio Palpation: normal PMI Rate: regular rate Rhythm: regular rhythm Heart sounds: S1 normal and S2 normal; negative rub, gallop or murmur GI GI: normal to inspection and soft Neuro General: alert, awake, oriented x3, CN's II-XI intact bilaterally and moves all extremities Extremities Pulses: Normal: Right Posterior Tibial Pulse, Left Posterior Tibial Pulse, Right Radial Pulse, Left Radial Pulse L ower Extremity Edema: None: Bilateral Psych Psychological: normal affect Supplemental Info Stress echocardiogram from December 2016 was a negative, adequate, stress echocardiogram. Her resting ejection fraction was 55%. Echocardiogram from February 2014 showed normal LV size, estimate ejection fraction 55%, no regional wall motion abnormalities noted, and structurally normal valves. Heart catheteri zation from February 2003 showed elevation of LVEDP, estimated ejection fraction of 60-65%, left main as angiographically normal, LAD as angiographically normal, LCx that was a small nondominant vessel and angiographically normal, RCA that was a large dominant vessel and angiographically normal, and mild mitral valve prolapse with trace mitral valve regurgitation. Assessment AND Plan 1. Atypical ravinder st pain R07.89 Plan She does have a history of atypical chest pain in the past, however, her chest pain this past week she states is different and is associated with multiple secondary symptoms and hist ory of diabetes. She will undergo laboratory work, that includes a troponin to evaluated CAD. She will also undergo a stress echocardiogram for further evaluation. Depending on her laboratory workup fur ther recommendation will be made. Her ECG in office showed sinus rhythm at a rate of 79 bpm with non-specific t-wave abnormality and consideration for old anterior infarct. Orders Orders: 2. Dyspnea o n exertion R06.09 Plan She states over the last week has had increasing dyspnea on exertion most notably when going up steps. She will undergo laboratory work, which includes BNP to evaluate fluid compo nent. On physical exam she does not appear to be a fluid volume overload. Her weight has remained stable. Further recommendation will be made based on laboratory results. Her last echocardiogram was in February 2014 and it showed structurally normal valves. Depending on her overall course a repeat echocardiogram may be needed to evaluate valvular status and ejection fraction. As noted above, she will undergo a stress echocardiogram which will help evaluate ejection fraction and valves. Orders Orders: 3. Palpitations R00.2 Plan This is unchanged. She will continue with current beta le and we w ill continue to monitor. Orders Orders: 4. Mixed hyperlipidemia E78.2 Plan Her lipid panel from June 2017 showed cholesterol: 180, HDL: 35, LDL: 110, and triglyceride: 176. She has been intolerant to multiple statin medications in the past. She will continue with Zetia 10 mg p.o. daily. She is expected to repeat lipid and liver panel in the near future. We will wait for her laboratory results for f michelle recommendation she will continue with current medications. Plan Detail Other Orders Orders: Additional Comments Thank you for allowing us to participate in the patient's plan of care, if you hav e any questions please do not hesitate to call. This note was generated using a voice recognition system and there may be incorrect words, spelling, or punctuation that were not noted upon reviewing th e office note prior to saving. Coding Level of Care Code Off vis,est,level 4 Diagnoses Atypical chest pain R07.89 Dyspnea on exertion R06.09 Palpitations R00.2 Mixed hyperlipidemia E78.2 Coding Leve l of Care Code Off vis,est,level 4 Diagnoses Atypical chest pain R07.89 Dyspnea on exertion R06.09 Palpitations R00.2 Mixed hyperlipidemia E78.2 12/07/17 0958 <Electronically signed by Larry Ngo DYNAMICS AX TECHNICAL ARCHITECT-C> Date Larry Ngo DYNAMICS AX TECHNICAL ARCHITECT-C Cosigner Signature: Date (if applicable) CC: Leticia Pugh DO 07-Dec-2017 12 Lead EKG performed by [facility] Result: Comments: See Note; NOTES: [place] [address] [place] [address] 12 Lead EKG performed by [facility] 12/07/17910 MR#: [id number] Acct: [id number] Name: RADHA RAMOS Rep #: [id number] : 1955 62 From: Larry Ngo NP-C Attending Dr: Larry Ngo, DYNAMICS AX TECHNICAL ARCHITECT Status: DEP AMB Ordering Dr: Larry Ngo DYNAMICS AX TECHNICAL ARCHITECTRogelioC Date: 12/07/17 Location: [facility] Sex: F C Admitted: ORD ER #: [id number] /12 Lead EKG performed by [facility] 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 - Nonspecific T-abnormality. BNORMAL 12/07/17 1257 <Electronically signed by Larry Ngo DYNAMICS AX TECHNICAL ARCHITECT-C&amp ;#62; Date Larry SPEARC CC: Leticia Pugh DO Date Dictated: 12/07/17910 Date Transcribed: 12/07/17910 Field Gauger: ISABEL Signed 07-Dec-2017 12 Lead EKG performed by [facility] Result: Comments: See Note; NOTES: [address] [place] [address] 12 Lead EKG performed by [facility] 12/07/17910 MR#: [id number] Acct: [id number] Name: RADHA RAMOS Rep #: [id number] : 1955 62 From: Larry KNAPP Attending Dr: Larry Ngo NP Status: DEP AMB Ordering Dr: Larry Ngo Date: 12/07/17 Location: [facility] Sex: F C Admitted: ORD ER #: [id number] [facility]/12 Lead EKG performed by [facility] ECG Report Interpretation Sinus Rhythm Poor R wave progressionElectronically signed on 12/08/2017 at 17:44 by Marcus Sánchez Software Version 8610 12/08/17 1746 Date Larry KNAPP CC: Leticia Pugh DO Date Dictated: 12/07/17910 Date Transcribed: 12/07/17910 Field Gauger: ISABEL Signed 28-Oct-2017 Inital Evaluation (1) - PT Result: Comments: See Note; NOTES: [facility] Physical Therapy [facility] [place], [place] [address] Fax REHABILITATION SERVICES INITIAL EVALUATION MR#: [id number] Acct: [id number] Name: RADHA RAMOS Rep #: [id number] : 1955 62 From: Morgan Barnes PT, Cert. MDT, OCS Referring DrDomenic: Gloria Xie Status: REG RCR Insuran ce: [employer] Patient's Visit Information RADHA RAMOS is a 62 year old F referred to Physical Therapy by RA Vale with a diagnosis of LUMBOSACRAL INTERVERTEBRAL DISC,DI SORDER SACRUM,SACROILITIS. Date of Evaluation: 10/27/17 Physical Therapist: Morgan Androsik, PT, - Visit Plan Frequency: 2x /Week Duration: 4 Weeks Plan: intailly pain releive intervention modalities ,progress to DLS for abd/back SI progam,postural ex's - Subjective Subjective: This 62 y/o female presents to physical therapy with lumbar pain . Patient fell on ice March slipped landed buttuck/sacr um. Patient seen Dr Pugh recommended pain managemnet. Patient had epidural injections x2 . Did x-rays -. Recommended PT. Symptoms worse with sitting,bending,lifting . Patient symptoms better MEDS ,CP. Denies parathesia/tingling. Cooghing/sneezing -. Sleeping okay at night on sides. Patient has h/o lumbar pain. No treatmment. Patient symptoms affect QOL ,job demands ,and housework tasks. SOCIAL: joon ied. VOCATION: [employer] - Pain Bilateral Back Pain Intensity (Out of 10): 7 Pain Intensity Range: 10 - Objective POSTURE: mild foward posture. GAIT: normal aston reciprocal pattern. MERY RO: reflexes L3-4,L4-5,L5-S1 2/3 ,. FLEXABLITY: hams min tight. SYMMTRIES: ALIGN. PALAPTION: tender SI. LUMBAR ROM: flexion min loss ,extension min loss,side glides min loss pain all planes of motion. T A ACTIVATION: poor - Special Tests L/S Slump test left side: Negative L/S Slump test right side: Negative L/S Left Straight Leg Raise: Negative L/S Right Straight Leg Raise: Negative Lumbar Standing: F lexion - Mechanical Response: No effect Lumbar Standing: Flexion - Symptoms During Testing: Increases Lumbar Standing: Flexion - Symptoms After Testing: No worse Lumbar Standing: Extension - Mechanical Response: No effect Lumbar Standing: Extension - Symptoms During Testing: Increases Lumbar Standing: Extension - Symptoms After Testing: No worse Lumbar Standing: Right Side Glides - Mechanical Response : No effect Lumbar Standing: Right Side [place] - Symptoms During Testing: Increases Lumbar Standing: Right Side [place] - Symptoms After Testing: No worse Lumbar Standing: Left Side [place] - Mechanical Resp onse: No effect Lumbar Standing: Left Side [place] - Symptoms During Testing: Increases Lumbar Standing: Left Side [place] - Symptoms After Testing: No worse Lumbar Lying: Flexion - Mechanical Response: No effect Lumbar Lying: Flexion - Symptoms During Testing: Increases Lumbar Lying: Flexion - Symptoms After Testing: No worse Lumbar Lying: Extension - Mechanical Response: No effect Lumbar Lying: Extensio n - Symptoms During Testing: Increases Lumbar Lying: Extension - Symptoms After Testing: No worse - Goals Goal 1:: Patient to be Independant with HEP Goal Time Frame: 4-6 Weeks Goal 2:: Patient to be I ndependant with posture/body mechanics to decrease back pain Goal Time Frame: 4-6 Weeks Goal 3:: Patient to decrease lumbar pain by 50% or greater to improve function with ADL'S Goal Time Frame: 4-6 Wee ks Goal 4:: Patient to improve lumbar ROM with less pain for function of recovery Goal Time Frame: 4-6 Weeks Goal 5:: Patient be able to perform ADL'S and job demands with min limioations Goal Time Fram e: 4-6 Weeks Goal 6:: Patient improve low back owestry outconme scor by 5 points Goal Time Frame: 4-6 Weeks - Rehabilitation Potential Physical Therapy Diagnosis: This patient has L-S/SI dysfunction wi th pain which patient fell Prashanth on ice on buttucks thus causing pain with all activity and motion of lumbar ,affect ablioty with job demands thus benifit from skilled PT Rehabilitation Potential: Good - Anticipated Interventions Patient/Client Instruction: Educate patient on: Condition, Plan of Care For the Purpose of:: To decrease pain, To increase ROM, To improve muscle performance and motor functio n, To improve ability to perform ADL's, To increase tolerance to activity/condition/position, To improve ability of physical actions for home/community/work/leisure, To decrease soft tissue restriction, To increase flexibility/ROM, To improve ability to perform tasks related to life management Therapeutic Exercise to Include: Strength training, Body mechanics, Postural training, Flexibilty training, D ynamic Lumbar Stabilization For the Purpose of:: To decrease pain, To increase ROM, To improve muscle performance and motor function, To improve ability to perform ADL's, To increase tolerance to activi ty/condition/position, To decrease level of supervision to perform tasks, To improve health of tissue, To decrease soft tissue restriction, To increase flexibility/ROM, To improve ability to perform tas ks related to life management TENS: Yes IF ES: Yes Cryotherapy (ice pack, ice massage): Yes Thermo therapy (hot pack): Yes Ultrasound (thermal/non thermal): Yes For the Purpose of:: To decrease pain, To increase ROM, To improve nutrient delivery to tissue, To increase oxygenation perfusion, To improve health of tissue, To decrease soft tissue restriction Thank you for the opportunity to evaluate y our patient. For Medicare and Medicare HMO plans, please review the plan of care and approve it. It will need to be FAXED BACK to us at [phone] for Medicare purposes. Please let me know if there are questions or concerns regarding this plan of care. Physician Signature: Date: <Electronically signed by Morgan Barnes PT, Ce rt. T, OCS> 10/28/17 1010 CC: Gloria Xie; Leticia Pugh DO JOSSELINE Signed For Medicare only, by signing this I certify the plan of care. Physicians Signature Date 26-Aug-2017 Downtime Report Result: Comments: See Note; NOTES: [facility] Medical Records Department [address] [place] [address] Downtime Report MR#: [id number] Acct: [id number] Name: RADHA RAMOS Rep #: [id number] : 1955 61 From: Herrera Hennessy PCP: Leticia Pugh DO Status: REG CLI This patient was seen during an EMR downtime August 09, 2017 - August 16, 2017. This patient may have a combination of paper and electronic documentation or all paper documentation. All documentation is viewable within the e-chart portion of [employer] for each patient visit. 21-Jul-2017 L/S Spine Min 4 Views Result: Comments: See Note; NOTES: [facility] Imaging Services [address] [facility] [place] [address] L/S Spine Min 4 Views MR#: [id number] Acct: [id number] Name: RADHA RAMOS Rep #: [id number] : 1955 F 61 From: Durga Peñaloza MD PCP: Leticia Pugh DO Status: REG CLI Study: L/S Spine Min 4 Views Date of Exam: 07/21/17 Exam# [id number] Ordering Dr: Joey Greer MD STUDY: X -RAY - LUMBAR SPINE REASON FOR EXAM: Female, 61 years old. Low back pain TECHNIQUE: 4 view(s) of the lumbar spine were obtained. COMPARISON: None FINDINGS: Normal lumbar lordosis. There is no substantial scoliosis. There is a normal alignment of the vertebrae. Normal vertebral bodies and endplates. Normal disc space heights. There is no demonstrated fracture. The soft tissue structures are unremarkable. RAD/L/S Spine Min 4 Views IMPRESSION: Normal x-ray examination of the lumbar spine. Electronically Signed: Durga Peñaloza MD at 8:28 EDT , Service support , CC: Joey Greer; Leticia Pugh DO Field Gauger: Signed 25-Jun-2017 Cardiology Visit Report Result: Comments: See Note; NOTES: [facility] [address] [place] [address] OFFICE VISIT Date of Service: 06/24/17 MR#: [id number] Acct: [id number] Name: RADHA RAMOS Rep #: [id number] : 1955 Provider: Nimco Vasquez Age/Sex: 61/F Location: [facility] Status: Signed HPI HPI Details: RADHA RAMOS, is a 61 F who presents to the office today for a cardiovascul ar follow-up. She has a history of atypical chest discomfort, palpitations, hyperlipidemia and diabetes. From a cardiac standpoint, patient is doing well. She does not have any chest discomfort/heavine ss/tightness. Her exercise tolerance is stable for her age. She does not have any worsening symptoms of shortness of breath. She does not have any orthopnea. She denies PND. She does not have any sympto ms of congestive heart failure. She does not have any palpitations that she is aware of. She does not have any lightheadedness or dizziness. She does not have any near-syncope or syncope. She does not h ave any lower extremity edema. She does not have any symptoms of claudication. 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: No Accompanied by: none Is patient in pain?: No Allergies pravastatin [From Pravachol] Adverse Reaction (Severe, Verified 06/24/17 1 4:32) Myalgias atorvastatin [From Lipitor] Adverse Reaction (Intermediate, Verified 06/24/17 14:32) Muscle pain simvastatin [From Zocor] Adverse Reaction (Intermediate, Verified 06/24/17 14:32) Myalgias Medications Colestipol Tablet [Colestid Tablet] 2 gm PO DAILY 09/24/14 [History Confirmed 06/24/17] Cyanocobalamin [Vitamin B12] 100 mcg SC UD 09/24/14 [History Confirmed 06/24/17] Ezetimibe [Zetia] 10 mg PO DAILY 09/24/14 [History Confirmed 06/24/17] Liraglutide [Victoza 2-Balbir] 0.1 - 8 mg SQ QHS 09/24/14 [History Confirmed 06/24/17] Aspirin 81 mg PO DAILY 12/23/15 [History Confirmed 06/24/17] cho lecalciferol (vitamin D3) 2,000 unit tablet See Label Instructions PO QDAY 06/22/17 [History Confirmed 06/24/17] metoprolol tartrate 25 mg tablet 25 mg PO QDAY tab 06/22/17 [History Confirmed 06/24/17] oxybutynin chloride ER 5 mg tablet,extended release 24 hr 5 mg PO QDAY 06/24/17 [History Confirmed 06/24/17] Ejection fraction %: 60 to 64 PFSH Medical History Palpitations (Chronic) Mitral valve pr olapse (Chronic) Hyperlipidemia (Chronic) Chest pain (Acute) Night sweats (Acute) Surgical History History of knee surgery (Resolved) Hx of cholecystectomy ( Resolved) H/O foot surgery (Resolved) Hx of appendectomy (Resolved) H/O: hysterectomy (Resolved) H/O shoulder surgery (Resolved) Family History Mother d CAD (coronary artery disease) Heart disease Hypertension Diabetes Father Brain tumor Cancer Brother Aortic aneurysm Social History Smoking Status: Never smoker alcohol intake: never subst ance use type: does not use diet: low carbohydrate caffeine: Yes Type: carbonated beverages Number of servings: 1 what type of physical activity do you participate in: none seatbelt use: always do you feel safe at home: Yes ROS Const Const: Negative for weakness, fatigue, fever(s) or headache(s) Eyes Eyes: Negative for blind spots, loss of peripheral vision or transient loss of vision ENT EN T: Negative for headache(s), dizziness, tinnitus or Nosebleed/epistaxis Cardio Chest Pain: No Palpitations: No Edema: None Muscle aches with walking: None Resp Respiratory: Negative for SOB with activit y, SOB at rest, SOB orthopnea\SOB lying down or Cough GI GI: Negative nausea, vomiting, heartburn or vomiting blood/hematemesis : Negative for hematuria Musc Musc: Negative for muscle aches/ myalgi a Neuro Neuro: Negative for weakness, headache(s), dizziness, near syncope, syncope, lightheadedness or orthostatic symptoms Baldemar Hematologic/Lymphatic: Negative for easy bleeding Endo Endo: Negative fo r fatigue Cardiology Exam Const Appearance: cooperative, no acute distress and well developed Orientation: alert, awake and oriented x3 Head Head: normocephalic and atraumatic Mouth: moist mucous memb ranes Eyes General: appearance normal, both eyes and all related structures Conjunctivae: conjunctivae normal Pupils: PERRL EOM: EOM intact bilaterally Neck Neck: normal visual inspection, no lymphadeno meghan and no JVD Carotids: Negative bruit Neck Mass: Negative Neck mass Chest Chest inspection: normal inspection of the chest and symmetric chest movement Auscultation: Bilateral: Clear to Auscultation Cardio Palpation: normal PMI Rate: regular rate Rhythm: regular rhythm Heart sounds: S1 normal and S2 normal; negative rub, gallop or murmur GI GI: normal to inspection, soft, no hepatosplenomegaly and bowel sounds present; negative tender Neuro General: alert, awake, oriented x3, CN's II-XI intact bilaterally and moves all extremities Extremities Pulses: Normal: Right Posterior Tibial Pulse, Left Po sterior Tibial Pulse, Right Radial Pulse, Left Radial Pulse Lower Extremity Edema: None: Bilateral Psych Psychological: normal affect Supplemental Info Stress echocardiogram in December 2016 was negati ve for ischemia. Assessment AND Plan 1. Mixed hyperlipidemia E78.2 Plan Patient questions whether not she is a candidate for a Repatha. Her lipids are adequately controlled on current medications. Rec ent lipid profile demonstrates total cholesterol 180, HDL 35, LDL 110. Plan Detail Additional Comments Thank you for allowing us to participate in patient's plan of care, if you have any questions plea se do not hesitate to call. This note was generated using a voice recognition system and there may be incorrect words, spelling or punctuation errors that were not noted when reviewing the office note prior to saving. Follow Up 1 Year (PFM) Coding Level of Care Code Off vis,est,level 3 Diagnoses Mixed hyperlipidemia E78.2 Hyperlipidemia type: mixed hyperlipidemia Coding Level of Care Code Off vi s,est,level 3 Diagnoses Mixed hyperlipidemia E78.2 Hyperlipidemia type: mixed hyperlipidemia 06/25/17 0901 <Electronically signed by Nimco MCGRATH> Date Nimco MCGRATH Cosigner Signature: Date (if applicable) CC: Leticia Pugh DO 21-May-2017 S-I Jts 3 or More Views Result: Comments: See Note; NOTES: [facility] Imaging Services [address] [place] [address] S-I Jts 3 or More Views MR#: [id number] Acct: [id number] Name: RADHA RAMOS Rep #: [id number] : 1955 F 61 From: Frederick Pemberton MD PCP: Leticia Pugh DO Status: REG CLI Study: S-I Jts 3 or More Views Date of Exam: 05/21/17 Exam# [id number] Ordering Dr: Leticia Pugh DO STUD Y: X-RAY - SACROILIAC JOINTS REASON FOR EXAM: Female, 61 years old. Bilateral SI joint pain TECHNIQUE: 3 view(s) of the sacroiliac joints were obtained. COMPARISON: None. FINDINGS: Normal bilateral sacroiliac joints. Normal visualized sacral ala and sacrum. Normal visualized iliac bones. Normal visualized soft tissue structures. ____ RAD/S-I Jts 3 or More Views IMPRESSION: Normal x-ray examination of the bilateral sacroiliac joints. Electronically Signed: Frederick Pemberton MD at 16:51 EDT Tel , Service support , CC: Leticia Pugh DO Field Gauger: Signed 17-Mar-2017 Abdomen/Pelvis without Cont Result: Comments: See Note; NOTES: [facility] Imaging Services [address] [place] [address] Abdomen/Pelvis without Cont MR#: [id number] Acct: [id number] Name: RADHA RAMOS Rep #: [id number] : 1955 F 61 From: Rahel Salazar MD PCP: Leticia Pugh DO Status: REG CLI Study: Abdomen/Pelvis without Cont Date of Exam: 03/17/17 Exam# [id number] Ordering Dr: Casimiro Saravia MD STUDY: CT ABDOMEN AND PELVIS WITHOUT CONTRAST REASON FOR EXAM: Female, 61 years old. Hematuria. RADIATION DOSAGE (If Supplied By Facility): CTDIvol = ( 11.08 ) mGy, DLP = ( 608.89 ) mGycm TECHNIQUE: Transaxial images were obtained from the dome of the diaphragm to the symphysis pubis without oral contrast, and without intravenous contrast. Sagittal and coronal images were reconstructed. Individua lized dose optimization techniques were used for this CT. COMPARISON: December 12, 2015 FINDINGS: The visualized lung bases are unremarkable. There are coronary arter y calcifications present. There is decreased attenuation of the liver consistent with steatosis. There is non-visualization of the gallbladder, which may be secondary to either contraction or a prior c holecystectomy. Normal spleen. Normal pancreas. Normal bilateral adrenal glands. Normal right kidney. There are left-sided parapelvic cysts. Normal visualized stomach. Normal small intestine. There a re multiple sigmoid colon diverticula consistent with diverticulosis. There are surgical clips in the region of the appendix consistent with a prior appendectomy. There is diffuse atherosclerotic calci fication of the abdominal aorta, without a demonstrated aneurysm. Normal inferior vena cava. Normal retroperitoneum. Normal urinary bladder. There is stable stranding within the left inguinal region. There are diffuse degenerative changes of the visualized thoracic and lumbar spine. CT/Abdomen/Pelvis without Cont IMPRESSION: Colonic diverticul osis without evidence of diverticulitis. Atherosclerosis. Fatty infiltration of the liver. Electronically Signed: Rahel Salazar MD at 16:04 EST Tel , Service support [phone], CC: Casimiro Saravia MD; Leticia Pugh DO Field Gauger: Signed 15-Feb-2017 Toe(s) Min 2 Views Result: Comments: See Note; NOTES: [facility] Imaging Services [address] [place] [address] Toe(s) Min 2 Views MR#: [id number] Acct: [id number] Name: RADHA RAMOS Rep #: [id number] : 1955 F 61 From: Juan Henriquez MD PCP: Leticia Pugh DO Status: REG CLI Study: Toe(s) Min 2 Views Date of Exam: 02/15/17 Exam# [id number] Ordering Dr: Tanvi Hawthorne STUDY: X-RAY LEFT FOOT, pinky TOE REASON FOR EXAM: Female, 61 years old. Injury TECHNIQUE: 3 view(s) of the toe were obtained. COMPARISON: None. FINDINGS: There is fracture at the neck of the fifth proximal phalanx with dorsal displacement of approximately three- quarter shaft width. Normal visualized metatarsus. Normal metatarsophalangeal (M.T.P) joint. Normal interphalangeal joints. Normal interphalangeal joints. RAD/Toe(s) Min 2 Views IMPRESSION: Fracture at the neck of the right fifth proximal phalanx with dorsal displace ment Electronically Signed: Juan Henriquez MD at 21:59 EST Tel , Service support , CC: Tanvi Hawthorne DYNAMICS AX TECHNICAL ARCHITECT; Leticia Pugh DO Field Gauger: Signed 22-Dec-2016 Stress Test Echo w/o Contrast Result: Comments: See Note; NOTES: [facility] Cardiovascular Services [address] [place] [address] Stress Test Echo w/o Contrast MR#: [id number] Acct: [id number] Name: RADHA RAMOS Rep #: [id number] : 1955 61 From: Marcus Sánchez MD Primary Care: Leticia Pugh DO Status: REG CLI Ordering Dr: Marcus Sánchez MD Sex: F C Reason For Study: Chest pain Stress Results Protocol: Fabricio Protocol Maximum Predicted HR: 160 bpm Target HR: 136 bpm% Max imum Predicted HR: 102 % DurationHeart Rate Stage (mm:ss) (bpm) BP Baseline 81 132/78 Stage 1 3:00 12 6 182/80 Stage 2 3: 00 14 1 178/84 Stage 3 2:00 16 4 / Recovery 109 138/8 8 Stress Duration: 8:00 mm:ss Maximum Stress HR: 164 bpmM ETS: 9 Baseline Echocardiogram Findings Stress Echo Wall motion Data Resting WMInterme diate WMStress WM Resting Wall Motion Wall Motion Stress All segments Normal. All segments Hyperkinetic. Ejection Fraction 55 %. Ejection Fraction 70 %. Stress Results Heart rate response: appropriate Blood pressure response: normal resting BP - appropriate response Arrhythmias: rare premature aberrant complex during exercise Functional capacity: good Stopped secondary to: foot discomfort. EKG Data Baseline ECG: NSR. Peak exercise ECG: no obvious ECG changes. Symptoms with Stress No c/o chest discomfort during exercise / recovery. Interpretation Summary Negative (adequate) Stress Echocardiogram Ordering Physician: Marcus Sánchez Referring Physician: Marcus Sánchez MD Performed By: Millie Torrez RDCS, RVT 12/22/161703 Date Marcus Sánchez MD CC: Leticia Pugh DO; Marcus Sánchez MD Date Dictated: 12/22/16 1307 Date Transcribed: 12/22/161703 Field Gauger: Signed 19-Nov-2016 12 Lead Electrocardiogram Result: Comments: See Note; NOTES: [facility] Cardiovascular Services [address] [place] [address] 12 Lead EKG 11/14/16156 MR#: [id number] Acct: [id number] Name: RADHA RAMOS Rep #: [id number] : 1955 61 From: Guevara Casanova MD Attending Dr: Status: DEP ER Ordering Dr: Roscoe Diaz MD Date: 11/14/16 Location: ED Sex: F C Admitted: Test Reason : CP Blood Pressure : */ mmHG Vent. Rate : 083 BPM Atrial Rate : 083 BPM P-R Int : 146 ms QRS Dur : 092 ms QT Int : 384 ms P-R-T Axes : 067 050 053 degrees QTc Int : 451 ms Normal sinus rhythm Normal ECG Confirmed by SAMANTHA LI MD, GUEVARA ([id number]), editor in chief JUNE HENNESSY ([id number]) on 11/16/2016 1:29:52 PM Referred By: GAL Confirmed By:GUEAVRA CASANOVA MD 11/16/16 1329 Date Guevara Casanova MD CC: Leticia Pugh DO Date Dictated: 11/14/16156 Date Transcribed: 11/14/16156 Field Gauger: Signed 14-Nov-2016 Discharge Instruction Result: Comments: See Note; NOTES: [facility] Medical Records Department [address] [place] [address] Discharge Instruction 11/14/16 0345 MR#: [id number] Acct: [id number] Name: JEANMARIE RAMOS Rep #: [id number] : 1955 61 From: Roscoe Diaz MD PCP: Leticia Pugh DO Status: DEP ER ED Disposition - Plan for ED Patient: Disposition: Home or Assisted Living Chief Complain t: Chest Pain Instructions: Heart Valve Problems: Mitral Valve Prolapse Referrals: Leticia Pugh DO [Primary Care Provider] - Marcus Sánchez MD [STAFF PHYSICIAN] - What to do if you have Problems For any increased pain, shortness of breath, bleeding, nausea or vomiting, chest pain, or any unexpected problems, contact your Primary Care Provider. Call [facility] ([phone]) or report to the closest Emergency Room. Call 911 if necessary. 11/14/16 0637 <Electronically signed by Roscoe Diaz MD> Date Roscoe Maher Cosigner Signature (If Indicated): Date CC: Leticia Pugh DO 14-Nov-2016 Emergency Department Summary Result: Comments: See Note; NOTES: [facility] Medical Records Department [address] [place] [address] Emergency Department Summary 11/14/16 0343 MR#: [id number] Acct: [id number] Name: RADHA RAMOS Rep #: [id number] : 1955 61 From: Roscoe Diaz MD PCP: Leticia Pugh DO Status: DEP ER - ER Visit Summary Date of Service: 11/14/16 Chief Complaint: [] Rapid heartbeat History of Present Illness: The patient is a 61 F planing of a rapid heartbeat for the last 3 days intermittently. It happens for a few minutes while laying down and then goes away. It happened prior to coming in. With rapid heart rate she feels pain and then it stops. She is a history of mitral valve prolapse. No history of coronary artery disease. Had a stress test 3 years ago that was normal. No pr evious heart cath. No home treatment for her mitral valve prolapse. She is worn Holter monitors in the past and not gotten any arrhythmias. Physical Examination: [] Vital signs reviewed General: Well-n ourished well-developed Head: Normocephalic atraumatic Eyes: Pupils equal round and reactive to light extraocular movements intact ENT: TMs clear no hemotympanum no trauma Neck: Nontender full range of motion Cardiovascular: Regular rate rhythm no murmurs normal S1-S2 Respiratory: No distress clear to auscultation bilaterally chest nontender Abdomen: Soft nontender nondistended normal bowel sounds no masses Back: Nontender no CVA tenderness Extremities: Nontender active range of motion 4 extremities no trauma Skin: Normal color no trauma Neuro alert oriented cranial nerves II through XII intact norm al strength sensation reflexes Test Results: [] EKG shows sinus rhythm at a rate of 83 without acute ischemia or arrhythmia. CBC normal. Chemistry normal except chloride 108. Troponin less than 0.02. C hest x-ray unremarkable. Emergency Department Course and Treatment: [] Monitored in the emergency department for almost 2 hours. No recurrence of symptoms. At this time she will follow-up with cardiolo gy. This is likely secondary to her mitral valve prolapse. I do not think she is having an acute coronary syndrome pulmonary embolism or dissection. No evidence of arrhythmia. She may need an outpatient Holter again. She will return if it worsens. Treatment Plan: [] Disposition: [] Impression: [] Palpitations, chest pain, mitral valve prolapse ED Disposition - Plan for ED Patient: Chief Complain t: Chest Pain Referrals: Leticia Pugh, DO [Primary Care Provider] - What to do if you have Problems For any increased pain, shortness of breath, bleeding, nausea or vomiting, chest pain, or any u nexpected problems, contact your Primary Care Provider. Call [facility] ([phone]) or report to the closest Emergency Room. Call 911 if necessary. 11/14/16 0636 <Electronically kristin d by Roscoe Diaz MD> Date Roscoe Diaz MD Cosigner Signature (If Indicated): Date CC: Leticia Pugh DO 14-Nov-2016 Chest 1 View (Portable) Result: Comments: See Note; NOTES: [facility] Imaging Services [address] [place] [address] Chest 1 View (Portable) MR#: [id number] Acct: [id number] Name: RADHA RAMOS Rep #: [id number] : 1955 F 61 From: Nelson Coronado PCP: Leticia Pugh DO Status: REG ER Study: Chest 1 View (Portable) Date of Exam: 11/14/16 Exam# [id number] Ordering Dr: Roscoe Diaz MD STUDY: X- RAY CHEST REASON FOR EXAM: Female, 61 years old. Chest pain, palpitations, nausea for 3 days. TECHNIQUE: AP portable chest. COMPARISON: February 27, 2016. FINDING S: The lungs are clear and expanded. There is no demonstrated pleural abnormality. Normal size heart. Normal mediastinum and shemar. Normal visualized pulmonary arteries. Normal visualized aortic arch a nd descending thoracic aorta. Degenerative changes of the thoracic spine. Normal visualized ribs, clavicles, and shoulders. There is no demonstrated abnormality of the visualized soft tissue structure s of the upper abdomen. RAD/Chest 1 View (Portable) IMPRESSION: No acute cardiopulmonary disease. Electronically Signed: Nelson Coronado MD 2016 at 3:17 EDT , Service support , CC: Leticia Pugh DO; Roscoe Diaz MD Field Gauger: Signed 13-Nov-2016 US Thyroid Biopsy Result: Comments: See Note; NOTES: [facility] Imaging Services [address] [place] [address] US Thyroid Biopsy MR#: [id number] Acct: [id number] Name: HEDY RAMOSBREA House Rep #: [id number] D OB: 1955 F 61 From: Ross Saxena MD PCP: Leticia Pugh DO Status: REG CLI Study: US Thyroid Biopsy Date of Exam: 11/13/16 Exam# [id number] Ordering Dr: James Casey MD STUDY: THYROID ULTRASOUND REASON FOR EXAM: Female, 61 years old. Ultrasound guided biopsy of the nodule in the lower pole of the left lobe of the thyroid. TECHNIQUE: Ultrasound evaluation of the thyroid was performe d with real-time and static doll-scale imaging. COMPARISON: Comparison is made with prior study dated September 24, 2016. FINDINGS: The surgery performed ultrasound-ramu ded biopsy of the nodule in the lower pole of the left lobe of the thyroid. US/US Thyroid Biopsy IMPRESSION: Successful ultrasound- guided biopsy of the nodule in the lower pole of the left lobe of the thyroid. Electronically Signed: Ross Saxena MD at 12:24 EDT Tel [phone], Service support , CC: James Casey MD; Leticia Pugh DO Field Gauger: Signed 24-Sep-2016 Thyroid Result: Comments: See Note; NOTES: [facility] Imaging Services [address] [place] [address] Verdana 4d Thyroid MR#: [id number] Acct: [id number] Name: RADHA RAMOS Rep #: [id number] : 1955 F 60 From: Kalpana Sharp MD PCP: Leticia Pugh DO Status: REG CLI Study: Thyroid Date of Exam: 09/24/16 Exam# [id number] Ordering Dr: Lety Ball DYNAMICS AX TECHNICAL ARCHITECT-C STUDY: THYROID ULTRASOUND REASON FOR EXAM: Female, 60 years old. Thyroid nodules TECHNIQUE: Ultrasound evaluation of the thyroid was performed with real-time and static doll-scale imaging. COMPARISON: Aug 20 2008 11:59AM ____ FINDINGS: RIGHT LOBE: The right lobe of the thyroid gland measures 4.6 x 1.5 x 1.2 cm. There is a heterogeneous echotexture. Multiple nodules are noted largest measures 8 x 7 x 8 mm. LEFT LOBE: The left lobe of the thyroid gland measures 3.9 x 1.2 x 1.2 cm. There is a heterogeneous echotexture. Multiple nodules are noted largest measures 10 x 9 x 8 mm ISTHMUS: The i sthmus measures 4 mm in thickness. There is a nodule in the isthmus measures 7 x 7 x 3 mm. . The regional lymph nodes are normal. US/Thyroid IM PRESSION: Heterogeneous echotexture of the thyroid gland and multiple bilateral nonspecific thyroid nodules that have not significantly changed in size since the previous study. These findings may repre sent thyroiditis. Electronically Signed: Kalpana Sharp MD at 9:23 EDT Tel , Service support , CC: Lety Ball DYNAMICS AX TECHNICAL ARCHITECT; Leticia Pugh DO Field Gauger: Signed 11-Aug-2016 SCREENING MAMM (CAD), BILAT Result: Comments: See Note; NOTES: [facility] Imaging Services [address] [place] [address] Verdana 4d SCREENING MAMM (CAD), BILAT MR#: [id number] Acct: [id number] Name: RADHA RAMOS Rep #: [id number] : 1955 F 60 From: Ross Saxena MD PCP: Leticia Pugh DO Status: [facility] Study: SCREENING MAMM (CAD), BILAT Date of Exam: 08/11/16 Exam# [id number] Ordering Dr: Zhane Martinez MD MAMMOGRAPHY - BILATERAL SCREENING REASON FOR EXAM: Female, 60 years old. Routine annual screening examination. PERTINENT HISTORY: Non- contributory. TECHNIQUE: Digital bilateral breast compa (3D mammographic acquisition) in the CC and MLO projections. 2-D mediolateral oblique (MLO) and craniocaudad (CC) views of both breasts were obtained. CAD: Full Field Digital Mammography with Compu ter Added Detection was performed. COMPARISON: Comparison is made with prior study dated August 08, 2015 and August 03, 2014. FINDINGS: Breast Composition: There are scat tered areas of fibroglandular density. There are no dominant masses or suspicious calcifications. No other significant abnormalities are identified. There has been no significant change since the prio r study. HPBI/SCREENING MAMM (CAD), BILAT IMPRESSION: Stable bilateral screening mammogram. Yearly follow-up mammogram recommended. (A) ASSESSMENT CATEGORY: BIRADS Category 1: Negative. A letter regarding these results will be sent to the patient by the facility within 30 days. Approximately 10% of breast c ancers are not detected by mammography. A normal mammogram should not delay biopsy of a clinically suspicious abnormality. [id number] Electronically Signed: Ross Saxena MD at 13:32 EDT Tel [phone], Service support , CC: Zhane Angeles MD; Leticia Pugh DO Field Gauger: Signed 17-Jul-2016 Upper GI w/BA Swallow Result: Comments: See Note; NOTES: [facility] Imaging Services [address] [place], [place] [address] [address] Verdana 4d Upper GI w/BA Swallow MR#: [id number] Acct: [id number] Name: RADHA RAMOS Rep #: [id number] : 1955 F 60 From: Coreen Mata MD PCP: Leticia Pugh DO Status: REG CLI Study: Upper GI w/BA Swallow Date of Exam: 07/17/16 Exam# [id number] Ordering Dr: James Garrido MD CLINICAL HISTORY: Female, 60 years old. STUDY: Esophagram and upper GI REASON FOR EXAM: Female, 60 years old. Epigastric pain and dysphagia RADIATION DOSAGE (If Supplied By Facility): 140 fluoroscopy images Individualized dose optimization techniques were used for this CT.? FLUOROSCOPY TIME (if supplied): (2:00) minutes/seconds TECHNIQUE: Administration of oral crystals and barium COMPARISON: Non e. FINDINGS: The swallowing mechanism was normal. There is no evidence of obstruction mass or mucosal abnormality. The stomach was normal in size shape and position. There was poor coating of the gastric mucosa by the barium however no obvious mass or ulceration was seen. The pyloric canal and duodenal bulb were not seen. An oral barium tablet was seen to transit t hrough the esophagus without difficulty and then later showed to be within the proximal small bowel. RAD/Upper GI w/BA Swallow IMPRESSION: Poor mucosal coating in the stomach otherw ise unremarkable study Electronically Signed: Coreen Mata, at 12:50 EDT Tel , Service support , CC: Leticia Pugh DO; James Garrido Field Gauger: Signed 27-Feb-2016 Chest PA and Lateral Result: Comments: See Note; NOTES: [facility] Imaging Services [address] [place] [address] Verdana 4d Chest PA and Lateral MR#: [id number] Acct: [id number] Name: RADHA RAMOS Rep #: [id number] : 1955 F 60 From: Segun Loomis MD PCP: Leticia Pugh DO Status: REG CLI Study: Chest PA and Lateral Date of Exam: 02/27/16 Exam# [id number] Ordering Dr: Leticia Pugh DO STUD Y: X-RAY CHEST REASON FOR EXAM: Female, 60 years old. Night sweats TECHNIQUE: PA and lateral views of the chest. COMPARISON: 2013 FINDINGS: The lungs are clear a nd expanded. There is no demonstrated pleural abnormality. Normal size heart. Normal mediastinum and shemar. Normal visualized pulmonary arteries. Normal visualized aortic arch and descending thoracic ao rta. Normal visualized thoracic spine. Normal visualized ribs, clavicles, and shoulders. There is no demonstrated abnormality of the visualized soft tissue structures of the upper abdomen. RAD/Chest PA and Lateral IMPRESSION: Normal x-ray examination of the chest. Electronically Signed: Kevin Loomis MD at 15:10 EST Tel , Service support [phone], CC: Leticia Pugh DO Field Gauger: Signed 24-Feb-2016 [facility] Note Result: Comments: See Note; NOTES: [facility] [address] [place] [address] [facility] Progress Note 02/24/16 1305 MR#: [id number] Acct: [id number] Name: Keyur RAMOS Rep #: [id number] : 1955 60 From: Ruslna Sesay MD PCP: Leticia Pugh DO Status: REG RCR Y Location: WC (1) Abscess of abdominal wall Status: Acute Current Visit: Yes Code(s): L02.2 11 - CUTANEOUS ABSCESS OF ABDOMINAL WALL (2) Post-op pain Status: Acute Current Visit: Yes Code(s): G89.18 - OTHER ACUTE POSTPROCEDURAL PAIN (3) Wound, open, abdominal wall, anterior Status: Acute Cur rent Visit: Yes Qualifiers: Encounter type: subsequent encounter Qualified Code(s): S31.109D - Unspecified open wound of abdominal wall, unspecified quadrant without penetration into peritoneal cavity, subsequent encounter Code(s): S31.109A - UNSP OPN WND ABD WALL, UNSP Q W/O PENET PERIT CAV, INIT (4) Diabetes mellitus Status: Chronic Current Visit: Yes Qualifiers: Diabetes mellitus type: type 2 Diab etes mellitus complication status: without complication Diabetes mellitus complication detail: D Diabetic retinopathy severity: D Proliferative retinopathy type: P Diabetes mellitus macular edema: D Lisa betes mellitus retirement insulin 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 Laterality: L Chronic kidney disease stage: C Qualified Code(s): E11.9 - Type 2 diabetes mellitus without complications; Z79.4 - longterm (curre nt) use of insulin Code(s): E11.9 - TYPE 2 DIABETES MELLITUS WITHOUT COMPLICATIONS (5) Hyperlipidemia Status: Chronic Current Visit: No Qualifiers: Hyperlipidemia type: mixed hyperlipidemia Qualified C ode(s): E78.2 - Mixed hyperlipidemia Code(s): E78.5 - HYPERLIPIDEMIA, UNSPECIFIED (6) Mitral valve prolapse Status: Chronic Current Visit: No Code(s): I34.1 - NONRHEUMATIC MITRAL (VALVE) PROLAPSE (7) S/P foot surgery Status: Chronic Current Visit: No Qualifiers: Laterality: L Code(s): Z98.890 - OTHER SPECIFIED POSTPROCEDURAL STATES Type of Wound Date of Service: 02/24/16 Chief Complaint: Abscess o f left lateral abdominal wall History of Wound: This is a 60-year-old diabetic female who was in her normal state of good health until approximately 3 weeks prior to presentation. At that time, she deve loped some erythema and discomfort on the left lateral abdominal wall. This became progressively more severe. She was evaluated at her primary care office, and evaluated initially by Dr. Ortez. The patie nt was felt to have a cellulitis, and was prescribed Augmentin. The erythema and pain worsened, and the patient was evaluated several days later by Dr. Pugh. Her antibiotic was changed to Bactrim. A C T scan was then performed on December 12, 2015, which showed inflammatory changes in the left lower quadrant and left flank. No significant fluid collection was noted to suggest abscess. Several days lat er, the patient return to see Dr. Pugh, and an I AND D was performed with drainage of purulent material. The abscess cavity was then packed with gauze. The patient was referred for definitive manageme nt by Dr. Kaye Tomas. Dr. Tomas evaluated the patient 3 days prior to her presentation here, where a large cruciate incision was created, with drainage of the remaining purulent material. The abscess cav ity was packed with gauze. The patient was then [facility] for further management. Progress of Wound: The patient presents today where the wound now totally healed. The wound h as now completely epithelialized, and there are no open portions remaining. There is no evidence of cellulitis or infection. The patient has undergone a battery of laboratory tests. Results are as follo ws: Hemoglobin A1c 6.1, glucose 118, BUN 18, creatinine 1.04, albumen 4.3, calcium 8.9, sodium 136, potassium 4.4, chloride 104, white blood count 5.8, hemoglobin 13.8, hematocrit 40.5, platelets 307,00 0. - Physical Exam Vital Signs Temp Pulse Resp BP Pulse Ox 96.1 F 81 18 143/94 02/24/16 12:35 02/24/16 12:35 02/24/16 12:35 02/24/16 12:35 General: Alert, Oriented x3, Cooperative, No apparent distr ess, Well developed, Well nourished HEENT: Atraumatic, PERRLA, EOMI, Normocephalic Oral: Moist Mucosa Neck: No JVD Lungs: Normal air movement Abdomen: Non- Distended, - - The patient's abdominal wall wou nd is now completely healed. It has completely epithelialized. There is no erythema or signs of cellulitis or infection. Extremities: No clubbing, No cyanosis, No edema Skin: No rashes, No breakdown Wou nd Measurements and Assessment WC - Nurse 1 - General Ulcer Measurement Start: 02/10/16 13:01 Freq: Status: Active Activity Type Activity Date Activity User E-Sign Co-Sign Detail Recorded Client Record ed Date Recorded By Document 02/24/16 12:35 CHRIS [id number] 02/24/16 12:38 CHRIS 02/24/16 12:35 Wound Center Nurse 1 [Ulcer Assessment] 1-abdomen -Combined with other wound No -Current Size (cm) - Length 0 -Cur rent Size (cm) - Width 0 -Current Size (cm) - Depth 0 -Total Square Cm 0 -Date of Last Picture (Recall this 02/24/16 field) -Photo Taken Yes - Epithelialization Large 67-100% -Tunneling No -Undermining/T unneling No -Circular Undermining No -Classification - Thickness Full Thickness without Exposed Support Structure -Exudate Amt None Present (0 %) -Wound Margin Fibrotic Scar, Thickened Scar -Granulation Amt Large (67-100%) -Granulation Quality N/A -Slough/Fibrin No -Necrosis Amt None Present (0 %) -Structure Exposed None/Limited to Skin Breakdown -Texture ([place]-wound Skin Appearance) No Abnormality -M oisture ([place]-wound Skin Appearance No Abnormality ) -Color ([place]-wound Skin Appearance) No Abnormality -Temperature ([place]-wound Skin No Abnormality Appearance) (Pt Warm) -Tenderness on Palpation ([place] -wound No Skin Appearance) -Ulcer Cleansing Rinsed/ Irrigated with Saline -Foul Odor after Cleansing No WC - Nurse 2 - General Ulcer CM Notes Start: 02/10/16 13:01 Freq: Status: Active Activity Type Ac tivity Date Activity User E-Sign Co-Sign Detail Recorded Client Recorded Date Recorded By Document 02/24/16 12:38 [id number] 02/24/16 12:39 CHRIS 02/24/16 12:38 Wound Center Nurse 2 [Procedure/Treatment] - Time 12:38 -Correct Patient Yes -Correct Side, Site, Position Yes -Correct Procedure Yes -Procedure Performed No -Post Debridement Size (cm) - Length 0 -Post Debridement Size (cm) - Width 0 -Post Debrid ement Size (cm) - Depth 0 -Total Square Cm 0 -Wound/Ulcer Outcome Healed- Epithelialized -Ulcer Cleansing Not Cleansed -Foul Odor after Cleansing No -Bioengineered Tissue No -Cetacaine [place] No -Bleedin g Controlled with NA -Treatment Response Procedure Tolerated Well [See Physician Procedure note for Specifics] Musculoskeletal: No Muscle Wasting Neurological: Cranial nerves II-XII grossly intact, N euro grossly intact Psych/Mental Status: Normal Affect, Appropriate, Alert and oriented to time, place, person, mood and affect Debridement Note Post- Debridement Measurements/Treatment WC - Nurse 2 - General Ulcer CM Notes Start: 02/10/16 13:01 Freq: Status: Active Activity Type Activity Date Activity User E-Sign Co-Sign Detail Recorded Client Recorded Date Recorded By Document 02/24/16 12:38 [id number] 02/24/16 12:39 02/24/16 12:38 Wound Center Nurse 2 1-abdomen -Time 12:38 -Correct Patient Yes -Correct Side, Site, Position Yes -Correct Procedure Yes - Procedure Performed No -Post Debridement S ize (cm) - Length 0 -Post Debridement Size (cm) - Width 0 -Post Debridement Size (cm) - Depth 0 -Total Square Cm 0 -Wound/Ulcer Outcome Healed- Epithelialized - Ulcer Cleansing Not Cleansed -Foul Odor af ter Cleansing No -Bioengineered Tissue No -Cetacaine [place] No -Bleeding Controlled with NA -Treatment Response Procedure Tolerated Well No debridement was completed today Assessment/Plan Active Prob lems Abscess of abdominal wall (Acute) Post-op pain (Acute) Wound, open, abdominal wall, anterior (Acute) Diabetes mellitus (Chronic) Assessment: This is a 60-year-old diabetic female who i s in her normal state of health until approximately 3 weeks prior to presentation, at which time she developed an abscess on the left lateral abdominal wall. She self- injects her dose of insulin daily, and there is a possibility that this may have started at a prior injection site. Nonetheless, the patient presented having had the abscess surgically incised and drained elsewhere. There was a large op en incision and abscess cavity on the left lateral abdominal wall, the site of incision and drainage. The size of the cavity has diminished significantly in recent weeks. Cultures were negative. Based u dave physical examination, infection was not suspected. The patient completed a recent course of oral antibiotics with Bactrim. The abscess site and surgical wound are now totally healed. Plan: The patiusman nt's wound is now totally healed. She has shown very rapid progress in terms of wound healing. The patient has done well, and is now to be discharged from the [facility]. She will return on an as needed basis. 02/24/16 1310 <Electronically signed by Ruslan Sesay MD> Date Ruslan Sesay MD CC: Signed 10-Feb-2016 [facility] Progress Note Result: Comments: See Note; NOTES: [facility] [address] [place] [address] [facility] Progress Note 02/10/16 1325 MR#: [id number] Acct: [id number] Name: Keyur RAMOS Rep #: [id number] : [id number] From: Ruslan Sesay MD PCP: Leticia Pugh DO Status: REG RCR Y Location: WC (1) Abscess of abdominal wall Status: Acute Current Visit: Yes Code(s): L02.2 11 - CUTANEOUS ABSCESS OF ABDOMINAL WALL (2) Post-op pain Status: Acute Current Visit: No Code(s): G89.18 - OTHER ACUTE POSTPROCEDURAL PAIN (3) Wound, open, abdominal wall, anterior Status: Acute Curr ent Visit: Yes Qualifiers: Encounter type: subsequent encounter Qualified Code(s): S31.109D - Unspecified open wound of abdominal wall, unspecified quadrant without penetration into peritoneal cavity, s ubsequent encounter Code(s): S31.109A - UNSP OPN WND ABD WALL, UNSP Q W/O PENET PERIT CAV, INIT (4) Diabetes mellitus Status: Chronic Current Visit: Yes Qualifiers: Diabetes mellitus type: type 2 Diabe hardeep mellitus complication status: without complication Diabetes mellitus complication detail: D Diabetic retinopathy severity: D Proliferative retinopathy type: P Diabetes mellitus macular edema: D Diab etes mellitus retirement insulin use: with retirement use Laterality: L Chronic kidney disease stage: C Qualified Code(s): E11.9 - Type 2 diabetes mellitus without complications; Z79.4 - longterm (curren t) use of insulin Code(s): E11.9 - TYPE 2 DIABETES MELLITUS WITHOUT COMPLICATIONS (5) Hyperlipidemia Status: Chronic Current Visit: No Qualifiers: Hyperlipidemia type: mixed hyperlipidemia Qualified Co de(s): E78.2 - Mixed hyperlipidemia Code(s): E78.5 - HYPERLIPIDEMIA, UNSPECIFIED (6) Mitral valve prolapse Status: Chronic Current Visit: No Code(s): I34.1 - NONRHEUMATIC MITRAL (VALVE) PROLAPSE (7) S/P foot surgery Status: Chronic Current Visit: No Qualifiers: Laterality: L Code(s): Z98.890 - OTHER SPECIFIED POSTPROCEDURAL STATES Type of Wound Date of Service: 02/10/16 Chief Complaint: Abscess of left lateral abdominal wall History of Wound: This is a 60-year-old diabetic female who was in her normal state of good health until approximately 3 weeks prior to presentation. At that time, she devel oped some erythema and discomfort on the left lateral abdominal wall. This became progressively more severe. She was evaluated at her primary care office, and evaluated initially by Dr. Ortez. The patien t was felt to have a cellulitis, and was prescribed Augmentin. The erythema and pain worsened, and the patient was evaluated several days later by Dr. Pugh. Her antibiotic was changed to Bactrim. A CT scan was then performed on December 12, 2015, which showed inflammatory changes in the left lower quadrant and left flank. No significant fluid collection was noted to suggest abscess. Several days late r, the patient return to see Dr. Pugh, and an I AND D was performed with drainage of purulent material. The abscess cavity was then packed with gauze. The patient was referred for definitive managemen t by Dr. Kaye Tomas. Dr. Tomas evaluated the patient 3 days prior to her presentation here, where a large cruciate incision was created, with drainage of the remaining purulent material. The abscess cavi ty was packed with gauze. The patient was then referred to the [facility] for further management. Progress of Wound: The patient presents today where the wound appears much smaller in size. It is nearly healed, with only a very small ulceration remaining at the midportion of the wound, measuring only several millimeters in diameter. The unhealed portion of wound is pink and healthy in appear ance. The dimensions of the wound are documented elsewhere, though only millimeters in diameter. There is no evidence of cellulitis or infection. At the current rate , it is anticipated that the wound w ill be completely healed within the next several weeks, barring anything unforeseen. The patient has undergone a battery of laboratory tests. Results are as follows: Hemoglobin A1c 6.1, glucose 118, BUN 18, creatinine 1.04, albumen 4.3, calcium 8.9, sodium 136, potassium 4.4, chloride 104, white blood count 5.8, hemoglobin 13.8, hematocrit 40.5, platelets 307,000. - Physical Exam Vital Signs Temp Pu lse Resp BP Pulse Ox 97.6 F 96 18 155/87 12/05/16 13:01 02/10/16 13:01 02/10/16 13:01 02/10/16 13:01 General: Alert, Oriented x3, Cooperative, No apparent distress, Well developed, Well nourished HEEN T: Atraumatic, PERRLA, EOMI, Normocephalic Oral: Moist Mucosa Neck: No JVD Lungs: Normal air movement Abdomen: Non-Distended, - - The left abdominal wound is now nearly healed. The horizontal incisional wound is now nearly healed, with only a small unhealed portion near the middle, which measures only several millimeters in diameter. Actual dimensions are documented elsewhere. There is no sign of infe ction or cellulitis. There is no drainage. Extremities: No clubbing, No cyanosis, No edema, Capillary Refill Less than 3 Seconds Skin: No rashes Wound Measurements and Assessment WC - Nurse 1 - General Ulcer Measurement Start: 02/10/16 13:01 Freq: Status: Active Activity Type Activity Date Activity User E-Sign Co-Sign Detail Recorded Client Recorded Date Recorded By Document 02/10/16 13:01 DL [id number] 02/10/16 13:07 DL 02/10/16 13:01 Wound Center Nurse 1 [Ulcer Assessment] 1-abdomen -Current Size (cm) - Length 0 -Current Size (cm) - Width 0 -Current Size (cm) - Depth 0 -Total Square Cm 0 -Photo Take n Yes -Exudate Amt None Present (0 %) -Wound Margin Flat AND Intact -Granulation Amt Large (67-100%) -Granulation Quality [place] -Necrosis Amt None Present (0 %) -Structure Exposed N/A -Texture ([place]-woun d Skin Appearance) Scarring -Moisture ([place]-wound Skin Appearance No Abnormality ) -Color ([place]-wound Skin Appearance) No Abnormality -Temperature ([place]-wound Skin No Abnormality Appearance) (Pt Warm) - Tenderness on Palpation ([place]-wound No Skin Appearance) -Foul Odor after Cleansing No -Anesthetic Used 4% Lidocaine Solution WC - Nurse 2 - General Ulcer CM Notes Start: 02/10/16 13:01 Freq: Status: Ac tive Activity Type Activity Date Activity User E-Sign Co-Sign Detail Recorded Client Recorded Date Recorded By Document 02/10/16 13:15 MW [id number] 02/10/16 13:17 MW 02/10/16 13:15 Wound Center Nurse 2 [P rocedure/Treatment] -Time 13:16 -Correct Patient Yes -Correct Side, Site, Position Yes -Correct Procedure Yes -Procedure Performed No -Wound/Ulcer Outcome Not Healed -Ulcer Cleansing Not Cleansed -Foul Odor after Cleansing No -Bioengineered Tissue No -Cetacaine [place] No -Topical Lidocaine (%) 4 -Lidocaine (ml) 5 -Bleeding Controlled with NA [See Physician Procedure note for Specifics] Musculoskelet al: No Muscle Wasting Neurological: Cranial nerves II-XII grossly intact, Neuro grossly intact Psych/Mental Status: Normal Affect, Appropriate, Alert and oriented to time, place, person, mood and affect Debridement Note Post-Debridement Measurements/Treatment WC - Nurse 2 - General Ulcer CM Notes Start: 02/10/16 13:01 Freq: Status: Active Activity Type Activity Date Activity User E-Sign Co-Sign Deta il Recorded Client Recorded Date Recorded By Document 02/10/16 13:15 MW [id number] 02/10/16 13:17 MW 02/10/16 13:15 Wound Center Nurse 2 1-abdomen -Time 13:16 - Correct Patient Yes -Correct Side, Site, Posi tion Yes -Correct Procedure Yes -Procedure Performed No -Wound/Ulcer Outcome Not Healed -Ulcer Cleansing Not Cleansed -Foul Odor after Cleansing No - Bioengineered Tissue No -Cetacaine [place] No -Topical Lidocaine (%) 4 -Lidocaine (ml) 5 -Bleeding Controlled with NA No debridement was completed today Assessment/Plan Active Problems Abscess of abdominal wall (Acute) Wound, open, abdominal wall, ante rior (Acute) Diabetes mellitus (Chronic) Assessment: This is a 60-year-old diabetic female who is in her normal state of health until approximately 3 weeks prior to presentation, at which ti me she developed an abscess on the left lateral abdominal wall. She self- injects her dose of insulin daily, and there is a possibility that this may have started at a prior injection site. Nonetheless, the patient presented having had the abscess surgically incised and drained elsewhere. There was a large open incision and abscess cavity on the left lateral abdominal wall, the site of incision and dr avelar. The size of the cavity has diminished significantly in recent weeks. Cultures were negative. Based upon physical examination, infection was not suspected. The patient has completed a recent cour se of oral antibiotics with Bactrim. The abscess site and surgical wound on now nearly totally healed. Plan: The patient's wound is now nearly totally healed. She has shown very rapid progress in terms of wound healing. She is to continue using hydrogel topically. The patient is to return in 2 weeks for reassessment. It is anticipated that the patient's wound will be healed upon her return visit. She has been instructed to take a well-balanced nutritious diet, and to optimize her glycemic control. 02/10/16 1332 <Electronically signed by Ruslan Sesay MD> Date Ruslan Sesay MD CC: Signed 03-Feb-2016 [facility] Progress Note Result: Comments: See Note; NOTES: [facility] [place] [address] [facility] Progress Note 02/03/16 1336 MR#: [id number] Acct: [id number] Name: Keyur RAMOS Rep #: [id number] : [id number] 60 From: Ruslan Sesay MD PCP: Leticia Pugh DO Status: REG RCR Y Location: WC (1) Abscess of abdominal wall Status: Acute Current Visit: Yes Code(s): L02.2 11 - CUTANEOUS ABSCESS OF ABDOMINAL WALL (2) Post-op pain Status: Acute Current Visit: Yes Code(s): G89.18 - OTHER ACUTE POSTPROCEDURAL PAIN (3) S/P foot surgery Status: Chronic Current Visit: No Qual ifiers: Laterality: L Code(s): Z98.890 - OTHER SPECIFIED POSTPROCEDURAL STATES (4) Wound, open, abdominal wall, anterior Status: Acute Current Visit: Yes Qualifiers: Encounter type: subsequent encounte r Qualified Code(s): S31.109D - Unspecified open wound of abdominal wall, unspecified quadrant without penetration into peritoneal cavity, subsequent encounter Code(s): S31.109A - UNSP OPN WND ABD WALL, UNSP Q W/O PENET PERIT CAV, INIT (5) Diabetes mellitus Status: Chronic Current Visit: Yes Qualifiers: Diabetes mellitus type: type 2 Diabetes mellitus complication status: without complication Diabete s mellitus complication detail: D Diabetic retinopathy severity: D Proliferative retinopathy type: P Diabetes mellitus macular edema: D Diabetes mellitus retirement insulin use: with retirement use Latera lity: L Chronic kidney disease stage: C Qualified Code(s): E11.9 - Type 2 diabetes mellitus without complications Code(s): E11.9 - TYPE 2 DIABETES MELLITUS WITHOUT COMPLICATIONS (6) Hyperlipidemia Stat us: Chronic Current Visit: No Qualifiers: Hyperlipidemia type: mixed hyperlipidemia Qualified Code(s): E78.2 - Mixed hyperlipidemia Code(s): E78.5 - HYPERLIPIDEMIA, UNSPECIFIED (7) Mitral valve prolap se Status: Chronic Current Visit: No Code(s): I34.1 - NONRHEUMATIC MITRAL (VALVE) PROLAPSE Type of Wound Date of Service: 02/03/16 Chief Complaint: Abscess of left lateral abdominal wall History of Wou nd: This is a 60-year-old diabetic female who was in her normal state of good health until approximately 3 weeks prior to presentation. At that time, she developed some erythema and discomfort on the le ft lateral abdominal wall. This became progressively more severe. She was evaluated at her primary care office, and evaluated initially by Dr. Ortez. The patient was felt to have a cellulitis, and was pr escribed Augmentin. The erythema and pain worsened, and the patient was evaluated several days later by Dr. Pugh. Her antibiotic was changed to Bactrim. A CT scan was then performed on December 11, which showed inflammatory changes in the left lower quadrant and left flank. No significant fluid collection was noted to suggest abscess. Several days later, the patient return to see Dr. Pugh, an d an I AND D was performed with drainage of purulent material. The abscess cavity was then packed with gauze. The patient was referred for definitive management by Dr. Kaye Tomas. Dr. Tomas evaluated the patient 3 days prior to her presentation here, where a large cruciate incision was created, with drainage of the remaining purulent material. The abscess cavity was packed with gauze. The patient was t hen referred to the [facility] for further management. Progress of Wound: The patient presents today where the wound appears much smaller in size. The wound is generally pink and healthy in ap pearance. The dimensions of the wound are documented elsewhere. The base of the wound demonstrates pink healthy granulation tissue, with a small amount of bioburden present. There is no evidence of cell ulitis. At the current rate, it is anticipated that the wound will be completely healed within the next several weeks, barring anything unforeseen. The patient has undergone a battery of laboratory test s. Results are as follows: Hemoglobin A1c 6.1, glucose 118, BUN 18, creatinine 1.04, albumen 4.3, calcium 8.9, sodium 136, potassium 4.4, chloride 104, white blood count 5.8, hemoglobin 13.8, hematocrit 40.5, platelets 307,000. - Physical Exam Vital Signs Temp Pulse Resp BP Pulse Ox 97.5 F 105 18 151/84 02/03/16 13:02 02/03/16 13:02 02/03/16 13:02 02/03/16 13:02 General: Alert, Oriented x3, Vignesh ative, No apparent distress, Well developed, Well nourished HEENT: Atraumatic, PERRLA, EOMI, Normocephalic Oral: Moist Mucosa Neck: No JVD Lungs: Normal air movement Abdomen: Non-Distended, - - The heal ing abscess cavity on the left lateral abdominal wall continues to diminish in size. It is now quite small in dimensions. Dimensions are documented elsewhere. The base of the wound is pink and healthy i n appearance, demonstrating active granulation tissue. There is no sign of infection or cellulitis. Extremities: No clubbing, No cyanosis, No edema Skin: No rashes Wound Measurements and Assessment WC - Nurse 1 - General Ulcer Measurement Start: 01/09/16 11:20 Freq: Status: Active Activity Type Activity Date Activity User E-Sign Co-Sign Detail Recorded Client Recorded Date Recorded By Document 13:02 DL [id number] 02/03/16 13:09 DL 02/03/16 13:02 Wound Center Nurse 1 [Ulcer Assessment] 1-abdomen -Current Size (cm) - Length 0.5 -Current Size (cm) - Width 2.4 -Current Size (cm) - Depth 0.3 -Tota l Square Cm 1.20 -Photo Taken No -Exudate Amt Small (1-33%) -Exudate Type Serosanguineous -Wound Margin Distinct, Outline Attached -Granulation Amt Large (67-100%) - Granulation Quality [place] -Necrosis Am t Small (1-33%) -Necrotic Tissue Type Adherent Slough -Structure Exposed N/A - Texture ([place]-wound Skin Appearance) Scarring -Moisture ([place]-wound Skin Appearance No Abnormality ) -Color ([place]-wound Ski n Appearance) No Abnormality -Temperature ([place]-wound Skin No Abnormality Appearance) (Pt Warm) -Tenderness on Palpation ([place]-wound No Skin Appearance) -Ulcer Cleansing Rinsed/ Irrigated with Saline -F oul Odor after Cleansing No -Anesthetic Used 4% Lidocaine Solution - Nurse 2 - General Ulcer CM Notes Start: 01/09/16 11:20 Freq: Status: Active Activity Type Activity Date Activity User E-Sign Co-S ign Detail Recorded Client Recorded Date Recorded By Document 02/03/16 13:28 CHRIS [id number] 02/03/16 13:32 CHRIS 02/03/16 13:28 Wound Center Nurse 2 [Procedure/Treatment] -Time 13:28 -Correct Patient Yes -Tamar ect Side, Site, Position Yes -Correct Procedure Yes -Procedure Performed Yes - Type of Procedure Debridement -Clinical Debridement Subcutaneous -Post Debridement Size (cm) - Length 0.5 -Post Debridement Size (cm) - Width 3.7 -Post Debridement Size (cm) - Depth 0.1 -Total Square Cm 1.85 -Wound/Ulcer Outcome Not Healed -Ulcer Cleansing Rinsed/ Irrigated with Saline -Foul Odor after Cleansing No -Bioengi neered Tissue No -Cetacaine [place] No -Topical Lidocaine (%) 4 -Lidocaine (ml) 5 -Bleeding Controlled with NA -Treatment Response Procedure Tolerated Well [See Physician Procedure note for Specifics] Musculoskeletal: No Muscle Wasting Neurological: Cranial nerves II-XII grossly intact, Neuro grossly intact Psych/Mental Status: Normal Affect, Appropriate, Alert and oriented to time, place, person, mo od and affect Debridement Note Post-Debridement Measurements/Treatment - Nurse 2 - General Ulcer CM Notes Start: 01/09/16 11:20 Freq: Status: Active Activity Type Activity Date Activity User E-Sign Co-Sign Detail Recorded Client Recorded Date Recorded By Document 02/03/16 13:28 CHRIS [id number] 02/03/16 13:32 CHRIS 02/03/16 13:28 Wound Center Nurse 2 1-abdomen - Time 13:28 -Correct Patient Yes -Correct Kapil e, Site, Position Yes -Correct Procedure Yes -Procedure Performed Yes -Type of Procedure Debridement -Clinical Debridement Subcutaneous -Post Debridement Size (cm) - Length 0.5 -Post Debridement Size ( cm) - Width 3.7 -Post Debridement Size (cm) - Depth 0.1 -Total Square Cm 1.85 -Wound/Ulcer Outcome Not Healed -Ulcer Cleansing Rinsed/ Irrigated with Saline -Foul Odor after Cleansing No -Bioengineered Tissue No -Cetacaine [place] No -Topical Lidocaine (%) 4 -Lidocaine (ml) 5 -Bleeding Controlled with NA -Treatment Response Procedure Tolerated Well Laterality: Left - Lateral abdominal wall Type of D ebridement: Excisional debridement Anesthesia Used: 4% Lidocaine Solution Depth: Down to and including healthy tissue, in the subcutaneous layer Percentage of wound debrided: 100 Instrument Used: 3mm cu rette Severity: Fat Layer Exposed Amount of bleeding with debridement: Mild Bleeding Controlled with: Compression and gauze Patient tolerated procedure well Assessment/Plan Active Problems Abscess of abdominal wall (Acute) Post-op pain (Acute) Wound, open, abdominal wall, anterior (Acute) Diabetes mellitus (Chronic) Assessment: This is a 60-year-old diabetic female who is in her normal s gan of health until approximately 3 weeks prior to presentation, at which time she developed an abscess on the left lateral abdominal wall. She self- injects her dose of insulin daily, and there is a p ossibility that this may have started at a prior injection site. Nonetheless, the patient presented having had the abscess surgically incised and drained elsewhere. There was a large open incision and a bscess cavity on the left lateral abdominal wall, the site of incision and drainage. The size of the cavity has diminished significantly in recent weeks. Cultures were negative. Based upon physical exam ination, infection was not suspected. The patient has completed a recent course of oral antibiotics with Bactrim. We have recently use the wound VAC , which has resulted in significant improvement. Plan : We had been using the wound VAC for several weeks. This resulted in significant improvement. The wound cavity is now so small that insertion of the wound VAC foam is difficult. Therefore, we are to tr ansition from the use of Promogran to collagen hydrogel, which will be reapplied daily. The patient is to return in 1 week for reassessment. She has been instructed to take a well-balanced nutritious di et, and to optimize her glycemic control. 02/03/16 1342 <Electronically signed by Ruslan Sesay MD> Date Ruslan Sesay MD CC: Signed 27-Jan-2016 [facility] Progress Note Result: Comments: See Note; NOTES: [facility] [address] [place] [address] [facility] Progress Note 01/27/16 1333 MR#: [id number] Acct: [id number] Name: RICHARDKeyur House Rep #: [id number] : 1955 60 From: Ruslan Sesay MD PCP: Leticia Pugh DO Status: REG RCR Y Location: WC (1) Abscess of abdominal wall Status: Acute Current Visit: Yes Code(s): L02.2 11 - CUTANEOUS ABSCESS OF ABDOMINAL WALL (2) Post-op pain Status: Acute Current Visit: Yes Code(s): G89.18 - OTHER ACUTE POSTPROCEDURAL PAIN (3) S/P foot surgery Status: Acute Current Visit: No Qualif iers: Laterality: L Code(s): Z98.890 - OTHER SPECIFIED POSTPROCEDURAL STATES (4) Wound, open, abdominal wall, anterior Status: Acute Current Visit: Yes Qualifiers: Encounter type: subsequent encounter Qualified Code(s): S31.109D - Unspecified open wound of abdominal wall, unspecified quadrant without penetration into peritoneal cavity, subsequent encounter Code(s): S31.109A - UNSP OPN WND ABD WALL, U NSP Q W/O PENET PERIT CAV, INIT (5) Diabetes mellitus Status: Chronic Current Visit: Yes Qualifiers: Diabetes mellitus type: type 2 Diabetes mellitus complication status: without complication Diabetes mellitus complication detail: D Diabetic retinopathy severity: D Proliferative retinopathy type: P Diabetes mellitus macular edema: D Diabetes mellitus retirement insulin use: with retirement use Laterali ty: L Chronic kidney disease stage: C Qualified Code(s): E11.9 - Type 2 diabetes mellitus without complications Code(s): E11.9 - TYPE 2 DIABETES MELLITUS WITHOUT COMPLICATIONS (6) Hyperlipidemia Status : Chronic Current Visit: No Qualifiers: Hyperlipidemia type: mixed hyperlipidemia Qualified Code(s): E78.2 - Mixed hyperlipidemia Code(s): E78.5 - HYPERLIPIDEMIA, UNSPECIFIED (7) Mitral valve prolapse Status: Chronic Current Visit: No Code(s): I34.1 - NONRHEUMATIC MITRAL (VALVE) PROLAPSE Type of Wound Date of Service: 01/27/16 Chief Complaint: Abscess of left lateral abdominal wall History of Wound : This is a 60-year-old diabetic female who was in her normal state of good health until approximately 3 weeks prior to presentation. At that time, she developed some erythema and discomfort on the left lateral abdominal wall. This became progressively more severe. She was evaluated at her primary care office, and evaluated initially by Dr. Ortez. The patient was felt to have a cellulitis, and was pres cribed Augmentin. The erythema and pain worsened, and the patient was evaluated several days later by Dr. Pugh. Her antibiotic was changed to Bactrim. A CT scan was then performed on December 12, 2015, which showed inflammatory changes in the left lower quadrant and left flank. No significant fluid collection was noted to suggest abscess. Several days later, the patient return to see Dr. Pugh, and an I AND D was performed with drainage of purulent material. The abscess cavity was then packed with gauze. The patient was referred for definitive management by Dr. Kaye Tomas. Dr. Tomas evaluated the p atient 3 days prior to her presentation here, where a large cruciate incision was created, with drainage of the remaining purulent material. The abscess cavity was packed with gauze. The patient was the n referred to the [facility] for further management. Progress of Wound: The patient presents today where the wound appears much smaller in generally pink and healthy in appearance. The dimensi ons of the wound are documented elsewhere. The base of the wound demonstrates pink healthy granulation tissue, with no significant bioburden present. There is no evidence of cellulitis. Wound cultures r evealed no significant aerobic or anaerobic growth. The patient has undergone a battery of laboratory tests. Results are as follows: Hemoglobin A1c 6.1, glucose 118, BUN 18, creatinine 1.04, albumen 4.3 , calcium 8.9, sodium 136, potassium 4.4, chloride 104, white blood count 5.8, hemoglobin 13.8, hematocrit 40.5, platelets 307,000. - Physical Exam Vital Signs Temp Pulse Resp BP Pulse Ox 98.6 F 90 18 142/89 01/24/16 10:43 01/24/16 10:43 01/27/16 12:44 01/27/16 12:44 General: Alert, Oriented x3, Cooperative, No apparent distress, Well developed, Well nourished HEENT: Atraumatic, PERRLA, EOMI, Norm ocephalic Oral: Moist Mucosa Neck: No JVD Lungs: Normal air movement Abdomen: Non-Distended, - - The left abdominal wound is much smaller in size. It has diminished in size significantly since the patie nt's last visit 1 week ago. The base of the wound is pink and healthy in appearance, with active granulation tissue. There is no sign of cellulitis or infection. Extremities: No clubbing, No cyanosis, N o edema Wound Measurements and Assessment WC - Nurse 1 - General Ulcer Measurement Start: 01/09/16 11:20 Freq: Status: Active Activity Type Activity Date Activity User E-Sign Co-Sign Detail Recorded Cl ient Recorded Date Recorded By Document 01/27/16 12:44 [id number] 01/27/16 12:54 01/27/16 12:44 Wound Center Nurse 1 [Ulcer Assessment] 1-abdomen -Combined with other wound No -Current Size (cm) - Le ngth 4.4 -Current Size (cm) - Width 0.7 -Current Size (cm) - Depth 0.7 -Total Square Cm 3.08 -Date of Last Picture (Recall this 01/27/16 field) -Photo Taken Yes -Epithelialization Small 1-33% -Tunneling No -Undermining/Tunneling No -Circular Undermining No -Classification - Thickness Full Thickness without Exposed Support Structure -Exudate Amt Small (1-33%) - Exudate Type Serosanguineous -Wound Margin Distinct, Outline Attached -Granulation Amt Small (1-33%) -Granulation Quality Red -Slough/Fibrin Yes -Necrosis Amt Small (1-33%) -Necrotic Tissue Type Adherent Slough -Structure Exposed Fascia Fat La reji Exposed None/Limited to Skin Breakdown -Texture ([place]-wound Skin Appearance) No Abnormality -Moisture ([place]-wound Skin Appearance No Abnormality ) -Color ([place]-wound Skin Appearance) No Abnormality -Temperature ([place]-wound Skin No Abnormality Appearance) (Pt Warm) -Tenderness on Palpation ([place]-wound No Skin Appearance) -Ulcer Cleansing Rinsed/ Irrigated with Saline -Foul Odor after Cleansing No -Anesthetic Used 4% Lidocaine Solution [Edema Assessment] -Lower Limb Edema Present No WC - Nurse 2 - General Ulcer CM Notes Start: 01/09/16 11:20 Freq: Status: Active Activity Type Activity Date Activ ity User E-Sign Co-Sign Detail Recorded Client Recorded Date Recorded By Document 01/27/16 13:23 MW [id number] 01/27/16 13:31 MW 01/27/16 13:23 Wound Center Nurse 2 [Procedure/Treatment] 1-abdomen -Time 13 :24 -Correct Patient Yes -Correct Side, Site, Position Yes -Correct Procedure Yes -Procedure Performed No -Wound/Ulcer Outcome Not Healed -Ulcer Cleansing Rinsed/ Irrigated with Saline -Foul Odor after Cleansing No -Bioengineered Tissue No -Cetacaine [place] No -Bleeding Controlled with NA [See Physician Procedure note for Specifics] Neurological: Cranial nerves II-XII grossly intact, Neuro grossly i ntact Psych/Mental Status: Normal Affect, Appropriate, Alert and oriented to time, place, person, mood and affect Debridement Note Post-Debridement Measurements/Treatment - Nurse 2 - General Ulcer CM Notes Start: 01/09/16 11:20 Freq: Status: Active Activity Type Activity Date Activity User E-Sign Co-Sign Detail Recorded Client Recorded Date Recorded By Document 01/27/16 13:23 MW [id number] 01/27/16 1 3:31 MW 01/27/16 13:23 Wound Center Nurse 2 1-abdomen -Time 13:24 -Correct Patient Yes -Correct Side, Site, Position Yes -Correct Procedure Yes -Procedure Performed No -Wound/Ulcer Outcome Not Healed - Ulcer Cleansing Rinsed/ Irrigated with Saline -Foul Odor after Cleansing No -Bioengineered Tissue No -Cetacaine [place] No -Bleeding Controlled with NA No debridement was completed today Assessment/Pl an Active Problems Abscess of abdominal wall (Acute) Post-op pain (Acute) Wound, open, abdominal wall, anterior (Acute) Diabetes mellitus (Chronic) Assessment: This is a 60-year-old diabetic [place] female who is in her normal state of health until approximately 3 weeks prior to presentation, at which time she developed an abscess on the left lateral abdominal wall. She joy- injects her dose of i nsulin daily, and there is a possibility that this may have started at a prior injection site. Nonetheless, the patient presented having had the abscess surgically incised and drained. There is a large open incision and abscess cavity on the left lateral abdominal wall, the site of incision and drainage. The size of the cavity has diminished significantly in recent weeks. Cultures are negative. Based upon physical examination, infection is not suspected. The patient has completed a recent course of oral antibiotics with Bactrim. We have recently use the wound VAC , which has resulted in significant improvement. Plan: We have been using the wound VAC for several weeks. This has resulted in significant improvement. The wound cavity is now so small that insertion of the wound VAC foam is difficult. T herefore, we are to transition to the use of Promogran, which will be reapplied every other day. We are to take a holidayfrom the use of the wound VAC at this time. The patient is to r eturn in 1 week for reassessment. We will determine her response to Promogran at her return visit. She appears to be doing well at this time, with her wound responding appropriately to the use of the wo und VAC recently. The patient appears comfortable with the described management plan. She will be reevaluated in 1 week. She has been instructed to take a well-balanced nutritious diet, and to optimize her glycemic control. 01/27/16 1341 <Electronically signed by Ruslan Sesay MD> Date Ruslan Sesay MD CC: Signed 20-Jan-2016 [facility] Progress Note Result: Comments: See Note; NOTES: [facility] [address] [place] [address] [facility] Progress Note 01/20/16 1521 MR#: [id number] Acct: [id number] Name: RADHA RAMOS Rep #: [id number] : 1955 60 From: Ruslan Sesay MD PCP: Leticia Pugh DO Status: REG RCR Y Location: WC (1) Abscess of abdominal wall Status: Acute Current Visit: Yes Code: L02.2 11 (2) Post-op pain Status: Acute Current Visit: Yes Code: G89.18 (3) S/P foot surgery Status: Acute Current Visit: No Code: Z98.890 (4) Wound, open, abdominal wall, anterior Status: Acute Current Vi sit: Yes Qualifiers: Encounter type: subsequent encounter Qualifier Code: (S31.109D) Unspecified open wound of abdominal wall, unspecified quadrant without penetration into peritoneal cavity, subsequent encounter Code: S31.109A (5) Diabetes mellitus Status: Chronic Current Visit: Yes Qualifiers: Diabetes mellitus type: type 2 Diabetes mellitus complication status: without complication 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 At that time, she developed some erythema and discomfort on the left lateral abdominal wall. This became progressively more severe. She was evaluated at her primary care office, and evaluated i nitially by Dr. Ortez. The patient was felt to have a cellulitis, and was prescribed Augmentin. The erythema and pain worsened, and the patient was evaluated several days later by Dr. Pugh. Her antibio tic was changed to Bactrim. A CT scan was then performed on December 12, 2015, which showed inflammatory changes in the left lower quadrant and left flank. No significant fluid collection was noted to galindo ggest abscess. Several days later, the patient return to see Dr. Pugh, and an I AND D was performed with drainage of purulent material. Cultures were obtained, but were sent to an outside lab, and wer e not available, despite requests from the patient's primary care office. The abscess cavity was then packed with gauze. The patient was referred for definitive management by Dr. Kaye Tomas. Dr. Tomas ev aluated the patient 3 days prior to her presentation here, where a large cruciate incision was created, with drainage of the remaining purulent material. The abscess cavity was packed with gauze. The pa alin was then referred to the [facility]aling [facility] for further management. Progress of Wound: The patient presents today where the wound appears generally pink and healthy in appearance. The dimensions of the wound are smaller. The base of the wound demonstrates pink healthy granulation tissue, with no significant bioburden present. There is no evidence of cellulitis. Wound cultures revealed no signi ficant aerobic or anaerobic growth. The patient has undergone a battery of laboratory tests. Results are as follows: Hemoglobin A1c 6.1, glucose 118, BUN 18, creatinine 1.04, albumen 4.3, calcium 8.9, s odium 136, potassium 4.4, chloride 104, white blood count 5.8, hemoglobin 13.8, hematocrit 40.5, platelets 307,000. - Physical Exam Vital Signs Temp Pulse Resp BP Pulse Ox 98.1 F 91 18 142/84 01/20/16 14:33 01/20/16 14:33 01/20/16 14:33 01/20/16 14:33 General: Alert, Oriented x3, Cooperative, No apparent distress, Well developed, Well nourished HEENT: Atraumatic, PERRLA, EOMI, Normocephalic Oral: Moist Mucosa Neck: No JVD Lungs: Normal air movement Abdomen: Non-Distended, - - The open wound on the left lateral abdomen is smaller in size. There is no evidence of erythema or cellulitis. The wound cavity itself is smaller in size with notably less undermining. The base of the wound is pink and healthy in appearance. Extremities: No clubbing, No cyanosis, No edema Skin: No rashes Wound Measurement s and Assessment WC - Nurse 1 - General Ulcer Measurement Start: 01/09/16 11:20 Freq: Status: Active Activity Type Activity Date Activity User E-Sign Co-Sign Detail Recorded Client Recorded Date Record ed By Document 01/20/16 14:33 DL [id number] 01/20/16 14:36 DL 01/20/16 14:33 Wound Center Nurse 1 [Ulcer Assessment] 1-abdomen -Current Size (cm) - Length 1 - Current Size (cm) - Width 0.5 -Current Size (cm ) - Depth 1.2 -Total Square Cm 0.5 -Photo Taken No -Exudate Amt Small (1-33%) -Exudate Type Serosanguineous -Wound Margin Thickened AND Rolled Under - Granulation Amt Large (67-100%) -Granulation Qualit y Red -Necrosis Amt Small (1-33%) -Necrotic Tissue Type Adherent Slough -Structure Exposed N/A -Texture ([place]-wound Skin Appearance) No Abnormality -Moisture ([place]-wound Skin Appearance No Abnormality ) -Color ([place]-wound Skin Appearance) No Abnormality -Temperature ([place]-wound Skin No Abnormality Appearance) (Pt Warm) -Tenderness on Palpation ([place]-wound No Skin Appearance) -Anesthetic Used 4% Lidoc mark Solution WC - Nurse 2 - General Ulcer CM Notes Start: 01/09/16 11:20 Freq: Status: Active Activity Type Activity Date Activity User E-Sign Co-Sign Detail Recorded Client Recorded Date Recorded By Document 01/20/16 15:06 [id number] 01/20/16 15:07 01/20/16 15:06 Wound Center Nurse 2 [Procedure/Treatment] -Time 15:06 -Correct Patient Yes -Correct Side, Site, Position Yes -Correct Procedure Yes -Procedure Performed No -Wound/Ulcer Outcome Not Healed -Ulcer Cleansing Rinsed/ Irrigated with Saline -Foul Odor after Cleansing No -Bioengineered Tissue No - Cetacaine [place] No [See Physician Procedure note for Specifics] Neurological: Cranial nerves II-XII grossly intact, Neuro grossly intact Psych/Mental Status: Normal Affect, Appropriate, Alert and oriented to time, place, person, mood and affe ct Debridement Note Post-Debridement Measurements/Treatment WC - Nurse 2 - General Ulcer CM Notes Start: 01/09/16 11:20 Freq: Status: Active Activity Type Activity Date Activity User E-Sign Co-Sign De tail Recorded Client Recorded Date Recorded By Document 01/20/16 15:06 [id number] 01/20/16 15:07 01/20/16 15:06 Wound Center Nurse 2 1-abdomen -Time 15:06 - Correct Patient Yes -Correct Side, Site, Po sition Yes -Correct Procedure Yes -Procedure Performed No -Wound/Ulcer Outcome Not Healed -Ulcer Cleansing Rinsed/ Irrigated with Saline -Foul Odor after Cleansing No -Bioengineered Tissue No -Cetacaine [place] No No debridement was completed today Assessment/Plan Active Problems Abscess of abdominal wall (Acute) Post-op pain (Acute) Wound, open, abdominal wall, anterior (Acute) Diabetes mellitus ( Chronic) Assessment: This is a 60-year-old diabetic female who is in her normal state of health until approximately 3 weeks prior to presentation, at which time she developed an abscess on t he left lateral abdominal wall. She self injects her dose of insulin daily, and there is a possibility that this may have started at a prior injection site. Nonetheless, the patient presented having had the abscess surgically incised and drained. There is a large cruciate incision on the left lateral abdominal wall, the site of incision and drainage. Cultures are negative. Based upon physical examinat ion, infection is not suspected. The patient has completed a recent course of oral antibiotics with Bactrim. Plan: We have been using the wound VAC for several weeks. However, the patient developed a tr ansient reaction to the wound VAC adhesive film. As result, the wound VAC was temporarily discontinued, and the wound has been treated by daily packing with saline moistened gauze. The skin irritation a nd erythema has now resolved. We are to return to the use of the wound VAC, changed every several days. The wound VAC is anticipated to expedite healing by secondary intention. The patient is to return in 1 week for reassessment. She appears to be doing well at this time, with her wound responding appropriately to the use of the wound VAC. The wound VAC may obviate the need for surgical unroofing and debridement. This is yet to be determined, but the patient's response thus far is encouraging. These issues have been discussed the patient detail. She appears comfortable with the described management plan. She will be reevaluated in 1 week. She has been instructed to take a well- balanced nutritious diet , and to optimize her glycemic control. 01/20/16 1529 <Electronically signed by Ruslan Sesay MD> Date Ruslan Sesay MD CC: Signed 06-Jan-2016 [facility] Progress Note Result: Comments: See Note; NOTES: [facility] [address] [place] [address] [facility] Progress Note 01/06/16 1307 MR#: [id number] Acct: [id number] Name: RADHA RAMOS Rep #: [id number] : 1955 60 From: Ruslan Sesay MD PCP: Leticia Pugh DO Status: REG RCR Y Location: WC (1) Abscess of abdominal wall Status: Acute Current Visit: Yes Code: L02.2 11 (2) Diabetes mellitus Status: Chronic Current Visit: Yes Qualifiers: Diabetes mellitus type: type 2 Diabetes mellitus complication status: with skin complications Diabetes mellitus complication deta il: with other skin complication Diabetes mellitus retirement insulin use: with retirement use Qualifier Code: (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 Code: E11.9 (3) Hyperlipide grzegorz Status: Chronic Current Visit: No Qualifiers: Hyperlipidemia type: mixed hyperlipidemia Qualifier Code: (E78.2) Mixed hyperlipidemia Code: E78.5 (4) Wound, open, abdominal wall, anterior Status: Ac [place] Current Visit: Yes Qualifiers: Encounter type: subsequent encounter Qualifier Code: (S31.109D) Unspecified open wound of abdominal wall, unspecified quadrant without penetration into peritoneal cavi ty, subsequent encounter Code: S31.109A (5) Mitral valve prolapse Status: Chronic Current Visit: No Code: I34.1 Type of Wound Date of Service: 01/06/16 Chief Complaint: Abscess of left lateral abdomi nal wall History of Wound: This is a 60-year-old diabetic female who was in her normal state of good health until approximately 3 weeks prior to presentation. At that time, she developed some erythema a nd discomfort on the left lateral abdominal wall. This became progressively more severe. She was evaluated at her primary care office, and evaluated initially by Dr. Ortez. The patient was felt to have a cellulitis, and was prescribed Augmentin. The erythema and pain worsened, and the patient was evaluated several days later by Dr. Pugh. Her antibiotic was changed to Bactrim. A CT scan was then perfo rmed on December 12, 2015, which showed inflammatory changes in the left lower quadrant and left flank. No significant fluid collection was noted to suggest abscess. Several days later, the patient retur n to see Dr. Pugh, and an I AND D was performed with drainage of purulent material. Cultures were obtained, but were sent to an outside lab, and are not available currently, despite requests from the patient's primary care office. The abscess cavity was then packed with gauze. The patient was referred for definitive management by Dr. Kaye Tomas. Dr. Tomas evaluated the patient 3 days prior to her pre sentation here, where a large cruciate incision was created, with drainage of the remaining purulent material. The abscess cavity was packed with gauze. The patient was then referred to the [facility] for further management. Progress of Wound: The patient presents today where the wound appears generally pink and healthy in appearance. The dimensions of the wound are smaller. Wound cultures w ere obtained 1 week ago at the patient's last visit, both aerobic and anaerobic. The results revealed no significant aerobic or anaerobic growth. The patient has undergone a battery of auditory tests. R esults are as follows: Hemoglobin A1c 6.1, glucose 118, BUN 18, creatinine 1.04, albumen 4.3, calcium 8.9, sodium 136, potassium 4.4, chloride 104, white blood count 5.8, hemoglobin 13.8, hematocrit 40. 5, platelets 307,000. - Physical Exam Vital Signs Temp Pulse Resp BP Pulse Ox 96.1 F 96 16 147/70 12/30/15 14:19 12/30/15 14:19 01/06/16 12:42 01/06/16 12:42 General: Alert, Oriented x3, Cooperative , No apparent distress, Well developed, Well nourished HEENT: Atraumatic, PERRLA, EOMI, Normocephalic Oral: Moist Mucosa Neck: No JVD Lungs: Normal air movement Abdomen: Non-Distended, - - The left-side d open abscess cavity wound remains pink and healthy in appearance. There is no evidence of infection. There is no erythema or cellulitis. The base of the wound is generally pink and healthy in appearan ce, demonstrating granulation tissue. Dimensions are documented elsewhere. Extremities: No clubbing, No cyanosis, No edema Skin: No rashes, No breakdown Wound Measurements and Assessment WC - Nurse 1 - General Ulcer Measurement Start: 12/23/15 12:46 Freq: Status: Active Activity Type Activity Date Activity User E-Sign Co-Sign Detail Recorded Client Recorded Date Recorded By Document 01/06/16 12:42 TM [id number] 01/06/16 12:51 TM 01/06/16 12:42 Wound Center Nurse 1 [Ulcer Assessment] 1-abdomen -Combined with other wound No -Current Size (cm) - Length 2.6 - Current Size (cm) - Width 6.6 -Current Size (c m) - Depth 2.2 -Total Square Cm 17.16 -Photo Taken No -Epithelialization Small 1-33% -Tunneling No -Undermining/Tunneling No -Circular Undermining No - Classification - Thickness Full Thickness without E xposed Support Structure -Exudate Amt Medium (34-66%) -Exudate Type Serosanguineous -Wound Margin Distinct, Outline Attached -Granulation Amt Medium (34-66%) - Granulation Quality Red -Slough/Fibrin Yes -Necrosis Amt Small (1-33%) -Necrotic Tissue Type Adherent Slough -Structure Exposed Fat Layer Exposed -Texture ([place]-wound Skin Appearance) No Abnormality Assessed -Moisture ([place]-wound Skin Appearance No Abnormality ) Assessed -Color ([place]-wound Skin Appearance) No Abnormality Assessed -Temperature ([place]-wound Skin No Abnormality Appearance) (Pt Warm) - Tenderness on Palpation ([place]-wound Yes Skin A ppearance) -Ulcer Cleansing Rinsed/ Irrigated with Saline -Foul Odor after Cleansing No -Anesthetic Used 4% Lidocaine Solution - Nurse 2 - General Ulcer CM Notes Start: 12/23/15 12:46 Freq: Status: Active Activity Type Activity Date Activity User E-Sign Co-Sign Detail Recorded Client Recorded Date Recorded By Document 01/06/16 12:54 DV [id number] 01/06/16 13:00 DV 01/06/16 12:54 Wound Center Nurse 2 [Procedure/Treatment] -Time 12:59 -Correct Patient Yes -Correct Side, Site, Position Yes -Correct Procedure Yes -Procedure Performed No -Wound/Ulcer Outcome Not Healed -Ulcer Cleansing Rinsed/ Irrigated with Saline -Foul Odor after Cleansing No -Bioengineered Tissue No -Cetacaine [place] No -Bleeding Controlled with NA -Treatment Response Procedure Tolerated Well [See Physician Procedure note for Specif ics] Neurological: Cranial nerves II-XII grossly intact, Neuro grossly intact Psych/Mental Status: Normal Affect, Appropriate, Alert and oriented to time, place, person, mood and affect Debridement Note Post-Debridement Measurements/Treatment WC - Nurse 2 - General Ulcer CM Notes Start: 12/23/15 12:46 Freq: Status: Active Activity Type Activity Date Activity User E-Sign Co-Sign Detail Recorded Cl ient Recorded Date Recorded By Document 01/06/16 12:54 DV [id number] 01/06/16 13:00 DV 01/06/16 12:54 Wound Center Nurse 2 1-abdomen -Time 12:59 -Correct Patient Yes -Correct Side, Site, Position Yes -Tamar ect Procedure Yes -Procedure Performed No -Wound/Ulcer Outcome Not Healed -Ulcer Cleansing Rinsed/ Irrigated with Saline -Foul Odor after Cleansing No - Bioengineered Tissue No -Cetacaine [place] No -Bleed ing Controlled with NA -Treatment Response Procedure Tolerated Well No debridement was completed today Assessment/Plan Active Problems Abscess of abdominal wall (Acute) Wound, open, abdominal wall, anterior (Acute) Diabetes mellitus (Chronic) Assessment: This is a 60-year-old diabetic female who is in her normal state of health until approximately 3 weeks prior to presentation, at [facility] time she developed an abscess on the left lateral abdominal wall. She self injects her dose of insulin daily, and there is a possibility that this may have started at a prior injection site. Nonethel ess, the patient presented having had the abscess surgically incised and drained. There is a large cruciate incision on the left lateral abdominal wall, the site of incision and drainage. Cultures are n egative. Based upon physical examination, infection is not suspected. The patient has completed a recent course of oral antibiotics with Bactrim. Plan: We are to transition from gauze packing of the pat ient's wound the use of the wound VAC, which is now available. The wound VAC will be changed 3 times weekly. The wound VAC is anticipated to expedite healing by secondary intention. She is to return in 1 week for reassessment. Ultimately, a decision will be made whether it will be necessary for a surgical unroofing and debridement to configure the wound in a more appropriate manner for healing by seco ndary intention. The wound VAC may obviate the need for surgical unroofing and debridement. This is yet to be determined. These issues have been discussed the patient detail. She appears comfortable wit h the described management plan. She will be reevaluated in 1 week. She has been instructed to take a well-balanced nutritious diet, and to optimize her glycemic control. 01/06/16 1314 <Electr onically signed by Ruslan Sesay MD> Date Ruslan Sesay MD CC: Signed 30-Dec-2015 [facility] Progress Note Result: Comments: See Note; NOTES: [facility] [address] [place] [address] [facility] Progress Note 12/30/15 1625 MR#: [id number] Acct: [id number] Name: RADHA RAMOS Rep #: [id number] : 1955 60 From: Ruslan Sesay MD PCP: Leticia Pugh DO Status: REG RCR Y Location: WC (1) Abscess of abdominal wall Status: Acute Current Visit: Yes Code: L02.2 11 (2) Diabetes mellitus Status: Chronic Current Visit: Yes Qualifiers: Diabetes mellitus type: type 2 Diabetes mellitus complication status: with skin complications Diabetes mellitus complication deta il: with other skin complication 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 Qualifier Code: (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 Code: E11.9 (3) Hyperlipide grzegorz Status: Chronic Current Visit: No Qualifiers: Hyperlipidemia type: mixed hyperlipidemia Qualifier Code: (E78.2) Mixed hyperlipidemia Code: E78.5 (4) Wound, open, abdominal wall, anterior Status: Ac [place] Current Visit: Yes Qualifiers: Encounter type: subsequent encounter Qualifier Code: (S31.109D) Unspecified open wound of abdominal wall, unspecified quadrant without penetration into peritoneal cavi ty, subsequent encounter Code: S31.109A (5) Mitral valve prolapse Status: Chronic Current Visit: No Code: I34.1 Type of Wound Date of Service: 10/24/16 Chief Complaint: Abscess of left lateral abdomi nal wall History of Wound: This is a 60-year-old diabetic female who was in her normal state of good health until approximately 3 weeks prior to presentation. At that time, she developed some erythema a nd discomfort on the left lateral abdominal wall. This became progressively more severe. She was evaluated at her primary care office, and evaluated initially by Dr. Ortez. The patient was felt to have a cellulitis, and was prescribed Augmentin. The erythema and pain worsened, and the patient was evaluated several days later by Dr. Pugh. Her antibiotic was changed to Bactrim. A CT scan was then perfo rmed on December 12, 2015, which showed inflammatory changes in the left lower quadrant and left flank. No significant fluid collection was noted to suggest abscess. Several days later, the patient retur n to see Dr. Pugh, and an I AND D was performed with drainage of purulent material. Cultures were obtained, but were sent to an outside lab, and are not available currently, despite requests from the patient's primary care office. The abscess cavity was then packed with gauze. The patient was referred for definitive management by Dr. Kaye Tomas. Dr. Tomas evaluated the patient 3 days prior to her pre sentation here, where a large cruciate incision was created, with drainage of the remaining purulent material. The abscess cavity was packed with gauze. [facility]. Progress of Wound: The patient presents today where the wound appears generally pink and healthy in appearance. The skin surrounding the wound is slightly erythematous. This may represent a cellulitis. Wound cultures were obtained by swab, both aerobic and anaerobic. We will await the results. We have requested recent wound cultures from the patient's primary care off ce, yet to be received. The patient has undergone a battery of auditory tests. Results are as follows: Hemoglobin A1c 6.1, glucose 118, BUN 18, creatinine 1.04, albumen 4.3, calcium 8.9, sodium 136, pot assium 4.4, chloride 104, white blood count 5.8, hemoglobin 13.8, hematocrit 40.5, platelets 307,000. - Physical Exam Vital Signs Temp Pulse Resp BP Pulse Ox 96.1 F 96 16 150/86 12/30/15 14:19 6 14:19 12/30/15 14:19 12/30/15 14:19 General: Alert, Oriented x3, Cooperative, No apparent distress, Well developed, Well nourished HEENT: Atraumatic, PERRLA, EOMI, Normocephalic Oral: Moist Mucosa N agustin: No JVD Lungs: Normal air movement Abdomen: Non-Distended Extremities: No clubbing, No cyanosis, No edema Skin: - - The abscess cavity in the left lateral abdominal wall is generally pink and health y in appearance. There is evidence of active granulation tissue. The skin margins are slightly erythematous. The dimensions of the wound are documented elsewhere. Wound Measurements and Assessment WC - Nurse 1 - General Ulcer Measurement Start: 12/23/15 12:46 Freq: Status: Active Activity Type Activity Date Activity User E-Sign Co-Sign Detail Recorded Client Recorded Date Recorded By Document 6 14:19 TM [id number] 12/30/15 14:37 TM 12/30/15 14:19 Wound Center Nurse 1 [Ulcer Assessment] 1-abdomen -Combined with other wound No -Current Size (cm) - Length 7.5 -Current Size (cm) - Width 3.0 -Curre nt Size (cm) - Depth 2.2 -Total Square Cm 22.50 -Photo Taken No -Epithelialization Small 1-33% -Tunneling No -Undermining/Tunneling No -Circular Undermining No - Classification - Thickness Full Thickness without Exposed Support Structure -Exudate Amt Small (1-33%) -Exudate Type Serosanguineous -Wound Margin Thickened -Granulation Amt Small (1-33%) -Granulation Quality [place] Red -Slough/Fibrin Yes -Necro sis Amt Small (1-33%) -Necrotic Tissue Type Adherent Slough -Structure Exposed Fascia -Texture ([place]-wound Skin Appearance) No Abnormality -Moisture ([place]- wound Skin Appearance No Abnormality ) -Color ( [place]-wound Skin Appearance) Erythema -Temperature ([place]-wound Skin No Abnormality Appearance) (Pt Warm) -Tenderness on Palpation ([place]-wound Yes Skin Appearance) -Ulcer Cleansing Rinsed/ Irrigated with Saline -Foul Odor after Cleansing No -Anesthetic Used 4% Lidocaine Solution [Edema Assessment] -Lower Limb Edema Present No WC - Nurse 2 - General Ulcer CM Notes Start: 12/23/15 12:46 Freq: Status: Ac tive Activity Type Activity Date Activity User E-Sign Co-Sign Detail Recorded Client Recorded Date Recorded By Document 12/30/15 16:21 [id number] 12/30/15 16:22 12/30/15 16:21 Wound Center Nurse 2 [P rocedure/Treatment] 1-abdomen -Time 16:21 -Correct Patient Yes -Correct Side, Site, Position Yes -Correct Procedure Yes -Procedure Performed No -Wound/Ulcer Outcome Not Healed -Ulcer Cleansing Rinsed/ I rrigated with Saline -Foul Odor after Cleansing No -Bioengineered Tissue No -Cetacaine [place] No -Bleeding Controlled with NA -Treatment Response Procedure Tolerated Well [See Physician Procedure note fo r Specifics] Musculoskeletal: No Muscle Wasting Neurological: Cranial nerves II-XII grossly intact, Neuro grossly intact Psych/Mental Status: Normal Affect, Appropriate, Alert and oriented to time, p lace, person, mood and affect Debridement Note Post-Debridement Measurements/Treatment WC - Nurse 2 - General Ulcer CM Notes Start: 12/23/15 12:46 Freq: Status: Active Activity Type Activity Date Acti vity User E-Sign Co-Sign Detail Recorded Client Recorded Date Recorded By Document 12/30/15 16:21 [id number] 12/30/15 16:22 12/30/15 16:21 Wound Center Nurse 2 1-abdomen -Time 16:21 -Correct Patient Yes -Correct Side, Site, Position Yes -Correct Procedure Yes -Procedure Performed No -Wound/Ulcer Outcome Not Healed -Ulcer Cleansing Rinsed/ Irrigated with Saline -Foul Odor after Cleansing No -Bioengi neered Tissue No -Cetacaine [place] No -Bleeding Controlled with NA -Treatment Response Procedure Tolerated Well No debridement was completed today Assessment/Plan Active Problems Abscess of abdomina l wall (Acute) Wound, open, abdominal wall, anterior (Acute) Diabetes mellitus (Chronic) Assessment: This is a 60-year-old diabetic female who is in her normal state of health until approxim ately 3 weeks prior to presentation, at which time she developed an abscess on the left lateral abdominal wall. She self injects her dose of insulin daily, and there is a possibility that this may have started at a prior injection site. Nonetheless, the patient presented having had the abscess surgically incised and drained. There is a large cruciate incision on the left lateral abdominal wall, the si te of incision and drainage. Cultures were obtained recently by the patient's primary care physician at the initial incision and drainage, though these results are not available at this time. Based upon physical examination, veronica infection is not suspected. The patient has completed a course of oral antibiotics with Bactrim, the last dose of which was 9 days ago. Plan: We are to initiate a regimen of daily wound packing using saline-moistened gauze. The wound packing will be changed on a daily basis. The patient has been instructed in the appropriate measures. She is to return in 1 week for reasses sment. We are to request preauthorization for the use of a wound VAC. Wound cultures have been obtained, and we are awaiting results. Ultimately, a decision will be made whether it will be necessary for a surgical unroofing and debridement to configure the wound in a more appropriate manner for healing by secondary intention. The wound VAC may obviate the need for surgical unroofing and debridement. T his is yet to be determined. These issues have been discussed the patient detail. She appears comfortable with the described management plan. She will be reevaluated in 1 week. She has been instructed t o take a well-balanced nutritious diet, and to optimize her glycemic control. 12/30/15 1635 <Electronically signed by Ruslan Sesay MD> Date Ruslan Sesay MD CC: Signed 23-Dec-2015 Wound Ctr History AND Physical Result: Comments: See Note; NOTES: [facility] [address] [place] [address] Wound Ctr History AND Physical 12/23/15 1708 MR#: [id number] Acct: [id number] Name: RADHA TERRY Rep #: [id number] : 1955 60 From: Ruslan Sesay MD PCP: Leticia Pugh DO Status: REG RCR Y Location: WC (1) Abscess of abdominal wall Status: Acute Current Visit: Yes Code: L02 .211 (2) Diabetes mellitus Status: Chronic Current Visit: Yes Qualifiers: Diabetes mellitus type: type 2 Diabetes mellitus complication status: with skin complications Diabetes mellitus complication de tail: with other skin complication 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 Qualifier Code: (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 Code: E11.9 (3) Hyperlipi demia Status: Chronic Current Visit: Yes Qualifiers: Hyperlipidemia type: mixed hyperlipidemia Qualifier Code: (E78.2) Mixed hyperlipidemia Code: E78.5 (4) Wound, open, abdominal wall, anterior Status: Acute Current Visit: Yes Qualifiers: Encounter type: initial encounter Qualifier Code: (S31.109A) Unspecified open wound of abdominal wall, unspecified quadrant without penetration into peritoneal cavi ty, initial encounter Code: S31.109A (5) Mitral valve prolapse Status: Chronic Current Visit: Yes Code: I34.1 History of Present Illness Date of Service: 12/23/15 Chief Complaint: Abscess of left lat eral abdominal wall History of Wound: This is a 60-year-old diabetic female who was in her normal state of good health until approximately 3 weeks ago. At that time, she developed some erythema and disc omfort on the left lateral abdominal wall. This became progressively more severe. She is evaluated at her primary care office, and evaluated initially by Dr. Ortez. The patient is felt to have a cellulit is, and was prescribed Augmentin. The erythema and pain worsened, and the patient was evaluated several days later by Dr. Pugh. Her antibiotics changed to Bactrim. A CT scan was then performed on 2015, which showed inflammatory changes in the left lower quadrant and left flank. No significant fluid collection was noted to suggest abscess. Several days later, the patient return to see Dr. Pugh, and an I AND D was performed with drainage of purulent material. Cultures were obtained, but were sent to an outside lab, and are not available currently. The abscess cavity was then packed wit h gauze. The patient was referred for definitive management by Dr. Kaye Tomas. Dr. Tomas evaluated the patient 3 days ago in her office, where a large cruciate incision was created, with drainage of the remaining purulent material. The abscess cavity was again packed with gauze. The patient was then referred to the [facility] for further management. Past Medical History Past Medical History: Chronic Problems Diabetes mellitus (Chronic) Hyperlipidemia (Chronic) Mitral valve prolapse (Chronic) Past Medical History: The patient's history is negative for myocardial infarction, congestive he art failure, cerebrovascular accident, hypertension, cancer, pulmonary disease, renal disease , and thyroid disease Surgical History: appendectomy, cholecystectomy, hysterectomy - Partial, rotator cuff repair - Right Allergies/Adverse Reactions: Allergies No Known Allergies Allergy (Verified 09/24/14 09:03) Home Medications: Ambulatory Orders Medication Instructions Recorded Colestipol Tablet [Co lestid Tablet] 2 gm PO DAILY 09/24/14 Cyanocobalamin [Vitamin B12] 100 mcg SC UD 09/24/14 Ezetimibe [Zetia] 10 mg PO DAILY 09/24/14 Liraglutide [Victoza 2- Balbir] 0.1 - 8 mg SQ QHS 09/24/14 Oxycodone HCl/ Acetaminophen 1 - 2 tablet PO Q6H PRN PRN #30 09/28/14 [Percocet 5/325] tablet Aspirin 12/23/15 Lansoprazole [Prevacid] 30 mg PO DAILY 12/23/15 - Family History Maternal Diabetes Paternal Canc er, - - The patient's mother at age of 84 from old age. The patient's father at age of 68 with a brain tumor. 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 Lives: Spouse/ Significant Other Smoking Status: Never smoker Tobacco Use: Non-smoker Alcohol: None Drugs: None Review of Systems Constitutional: Denies: Chills, Fever, Weight Change Eyes: D enies: Pain, Vision Change HEENT: Denies: Difficulty Hearing, Difficulty Swallowing, Sinus Congestion Cardiovascular: Denies: Chest Pain, Palpitations Respiratory: Denies: Cough, Shortness of Breath Gas trointestinal: Denies: Diarrhea, Nausea, Vomiting Genitourinary: Denies: Dysuria, Hematuria Endocrine: Denies: Heat/ Cold Intolerance, Polydipsia, Polyuria Hematologic/ Lymphatic: Denies: Easy Bruising, Easy Bleeding - Physical Exam Vital Signs Temp Pulse Resp BP Pulse Ox 96 F 85 18 144/78 12/23/15 15:16 12/23/15 15:16 12/23/15 15:16 12/23/15 15:16 General: Alert, Oriented x3, Cooperative, No appa rent distress, Well developed, Well nourished HEENT: Atraumatic, PERRLA, EOMI, Normocephalic Oral: Moist Mucosa, No Gingival or Mucosal Lesions/ Ulcerations Neck: Supple, No JVD, Negative Carotid Bruits , No Nuchal Rigidity, Trachea Midline Lungs: Clear to auscultation, Normal air movement, No rhonchi, No wheeze, No rales Cardiovascular: Regular rate, Regular Rhythm, Normal S1, Normal S2, No murmurs Ab domen: Soft, Non-Distended, - - A large cruciate incision is noted on the left lateral abdomen. This is associated with an underlying abscess cavity. The skin demonstrates no significant erythema or roberta dence of cellulitis. There is no significant drainage from the abscess cavity itself. The depths of the this cavity are generally pink and healthy in appearance. There is significant undermining. No fra nkly necrotic tissue is appreciated Extremities: No clubbing, No cyanosis, No edema, - - Full range of motion; peripheral extremities are warm and well- perfused Wound Measurements and Assessment NOE - Patircia duvall 1 - General Ulcer Measurement Start: 12/23/15 12:46 Freq: Status: Active Activity Type Activity Date Activity User E-Sign Co-Sign Detail Recorded Client Recorded Date Recorded By Document 12/23/15 15:16 [id number] 12/23/15 15:38 12/23/15 15:16 Wound Center Nurse 1 [Ulcer Assessment] 1-abdomen -Combined with other wound No -Current Size (cm) - Length 2.7 -Current Size (cm) - Width 7.5 -Current Size (cm) - Depth 3.1 -Total Square Cm 20.25 -Photo Taken Yes -Epithelialization None Present -Tunneling No -Undermining/Tunneling No -Circular Undermining Yes -Classification - Thickness Full Thickness without Exposed Support Structure -Exudate Amt Large (67-100%) -Exudate Type Serosanguineous -Wound Margin Flat AND Intact -Granulation Amt Large (67-100%) - Granulation Quality Red -Slough/Fibrin Yes - Necrosis Amt Small (1-33%) -Necrotic Tissue Type Adherent Slough -Structure Exposed N/A -Texture ([place]-wound Skin Appearance) Assessed Induration Localized Edema - Moisture ([place]-wound Skin Appearance As sessed ) Dry/Scaly -Color ([place]-wound Skin Appearance) Assessed -Temperature ([place]- wound Skin No Abnormality Appearance) (Pt Warm) -Tenderness on Palpation ([place]- wound No Skin Appearance) -Ulcer Cleans ing Rinsed/ Irrigated with Saline -Foul Odor after Cleansing No -Anesthetic Used 4% Lidocaine Solution [Edema Assessment] -Lower Limb Edema Present NA WC - Nurse 2 - General Ulcer CM Notes Start: 12/22 12:46 Freq: Status: Active Activity Type Activity Date Activity User E-Sign Co-Sign Detail Recorded Client Recorded Date Recorded By Document 12/23/15 16:42 [id number] 12/23/15 16:44 12/23/15 16: 42 Wound Center Nurse 2 [Procedure/Treatment] 1-abdomen -Time 16:42 -Correct Patient Yes -Correct Side, Site, Position Yes -Correct Procedure Yes -Wound/Ulcer Outcome Not Healed -Ulcer Cleansing Rinsed / Irrigated with Saline -Foul Odor after Cleansing No -Bioengineered Tissue No -Cetacaine [place] No -Bleeding Controlled with NA -Treatment Response Procedure Tolerated Well [See Physician Procedure note for Specifics] Musculoskeletal: No Muscle Wasting Neurological: Cranial nerves II-XII grossly intact, Neuro grossly intact Psych/Mental Status: Normal Affect, Appropriate, Alert and oriented to time , place, person, mood and affect Debridement Note Post-Debridement Measurements/Treatment WC - Nurse 2 - General Ulcer CM Notes Start: 12/23/15 12:46 Freq: Status: Active Activity Type Activity Date A ctivity User E-Sign Co-Sign Detail Recorded Client Recorded Date Recorded By Document 12/23/15 16:42 [id number] 12/23/15 16:44 12/23/15 16:42 Wound Center Nurse 2 1-abdomen -Time 16:42 -Correct Patie nt Yes -Correct Side, Site, Position Yes -Correct Procedure Yes -Wound/Ulcer Outcome Not Healed -Ulcer Cleansing Rinsed/ Irrigated with Saline -Foul Odor after Cleansing No -Bioengineered Tissue No -Cet acaine [place] No -Bleeding Controlled with NA -Treatment Response Procedure Tolerated Well No debridement was completed today Assessment/Plan Active Problems Abscess of abdominal wall (Acute) Wound, open, abdominal wall, anterior (Acute) Diabetes mellitus (Chronic) Hyperlipidemia (Chronic) Mitral valve prolapse (Chronic) Assessment: This is a 60-year-old diabetic female who is in her [facility] state of health until approximately 3 weeks ago, which he developed an abscess on the left lateral abdominal wall. She self injects her dose of insulin daily, and there is a possibility that this may have started at a prior injection site. Nonetheless, the patient presents today having had the abscess surgically incised and drained. There is a large cruciate incision on the left lateral abdomina l wall, the site of incision and drainage 3 days ago. Cultures were obtained recently by the patient's primary care physician at the initial incision and drainage, though these results are not available at this time. Based upon physical examination, veronica infection is not suspected. The patient has completed a course of oral antibiotics with Bactrim, the last dose of which was 2 days ago. Plan: At thi s juncture, we are to initiate a regimen of daily wound packing using saline- moistened gauze such as Nu Gauze or Marleny. The wound packing will be changed on a daily basis. The patient has been instruct ed in the appropriate measures. To return in 1 week for reassessment. In the interim, we are to obtain a battery of laboratory tests, including a CBC, BMP, hemoglobin A1c, and serum prealbumin. These la boratory tests will allow assessment of the patient's nutritional status, diabetes control, white blood count which may indicate the presence of infection or absence thereof, etc. We will pack the wound on a daily basis as described for 1 or 2 weeks, and ascertain the progress which is made. Ultimately, a decision will be made whether it will be necessary for a surgical unroofing and debridement to co nfigure the wound in a more appropriate manner for healing by secondary intention. The wound VAC may also be considered. These options will be considered based upon the patient's evolving clinical cours e over the next several weeks. These issues have been discussed the patient detail. She appears comfortable with the described management plan. She will be reevaluated in 1 week. 12/23/15 1726 &#6 0;Electronically signed by Ruslan Sesay MD> Date Ruslan Sesay MD CC: Signed 12-Dec-2015 Abdomen/Pelvis WITH Contrast Result: Comments: See Note; NOTES: [facility] Imaging Services [address] [place] [address] Verdana 4d Abdomen/Pelvis WITH Contrast MR#: [id number] Acct: [id number] Name: MILO RAMOS Rep #: [id number] : 1955 F 60 From: Jack Hernandez MD PCP: Leticia Pugh DO Status: REG CLI Study: Abdomen/Pelvis WITH Contrast Date of Exam: 12/12/15 Exam# [id number] Ordering Dr: Leticia Pugh DO STUDY: CT ABDOMEN AND PELVIS WITH CONTRAST REASON FOR EXAM: Female, 60 years old. Left lower quadrant abscess x1 week. History of appendectomy and partial hysterectomy. RADIATION DOSAG E (If Supplied By Facility): CTDIvol = ( 17.02 ) mGy, DLP = ( 1084.66 ) mGycm TECHNIQUE: Transaxial images were obtained from the dome of the diaphragm to the symphysis pubis with oral contrast. 100 ml of Isovue 300 contrast was administered. Sagittal and coronal images were reconstructed. Individualized dose optimization techniques were used for this CT. COMPARISON: December 30, 2010 FINDINGS: There is subsegmental atelectasis at the lung bases bilaterally. The visualized portions of the heart are within normal limits. Normal liver. There is non-visualization of the gallbladder, which may be secondary to either contraction or a prior cholecystectomy. Normal spleen. Normal pancreas. Normal bilateral adrenal glands. Normal right kidney. Parapelvic cysts on the left. Normal visualized stomach. Normal small intestine. There is increased stool throughout the colon. There are surgical clips in the region of the appendix consistent with a prior appendectomy. Normal abdominal aorta. Normal inferior vena cava. Normal retroperitoneum. Normal urinary bladder. There is subcutaneous stranding in the anterior abdominal wall bilaterally, left greater than right. No discrete fluid collection is noted. Normal osseous structures. CT/Abdomen/Pelvis WITH Contrast IMPRESSION: Inflammatory change left lower qu adrant and left flank subcutaneous tissues. No significant fluid collection to suggest abscess. Electronically Signed: Jack Hernandez MD at 17:46 EDT , Service support [phone], CC: Leticia Pugh DO Field Gauger: Signed 25-Oct-2015 Chest WITH Contrast Result: Comments: See Note; NOTES: [facility] Imaging Services [address] [place] [address] Verdana 4d Chest WITH Contrast MR#: [id number] Acct: [id number] Name: RADHA RAMOS Rep #: [id number] : 1955 F 60 From: Emerson Centeno MD PCP: Leticia Pugh DO Status: REG CLI Study: Chest WITH Contrast Date of Exam: 10/25/15 Exam# [id number] Ordering Dr: Marcus Sánchez MD MALISSA DY: CT CHEST WITH CONTRAST REASON FOR EXAM: Female, 60 years old. CHEST PAIN/ MITRAL VALVE PROLAPSE RADIATION DOSAGE (If Supplied By Facility): CTDIvol = ( 13.54 ) mGy, DLP = ( 469.60 ) mGycm TECHNIQ UE: Transaxial imaging was performed following intravenous administration of 100ml ml of Isovue 300 contrast material. Individualized dose optimization techniques were used for this CT. COMPARISON: No ne. FINDINGS: The lungs are normal. There is no demonstrated pleural abnormality. Normal heart and pericardium. Normal mediastinum. Normal hilar regions. Normal e nhanced pulmonary arteries. Normal aorta arch and descending thoracic aorta. There are multi-level degenerative changes of the thoracic spine. There is diffuse fatty infiltration of the liver. CT/Chest WITH Contrast IMPRESSION: Normal enhanced CT Chest examination. Fatty liver Electronically Signed: Emerson Centeno MD at 21:00 EDT , Service support [phone], CC: Leticia Pugh DO; Marcus Sánchez MD Field Gauger: Signed 05-Sep-2015 ELECTROCARDIOGRAM, COMPLETE (ECG) (85110) Comments: nsr no acute chg Result: [MEASUREMENTS ANALYSIS] Date of Test: 09/05/2015 14:41:33; Heart Rate: 82; CO Interval: 152; QRS: 100; QT Interval: 366; Corrected QT Interval (QTc): 404; P Wave Holly: 62; QRS Wave Holly: 42; T Wave Holly : 23; Blood Pressure: 122/82 [ECG DIAGNOSTIC STATEMENTS] Date of Test: 09/05/2015 14:41:33; Summary: Sinus Rhythm WITHIN NORMAL LIMITS 08-Aug-2015 Bilat Scrn Digital AND CAD Result: Comments: See Note; NOTES: [facility] Imaging Services [address] [place] [address] Verdana 4d Bilat Scrn Digital AND CAD MR#: [id number] Acct: [id number] Name: RADHA RAMOS Rep #: [id number] : 1955 F 59 From: Ross Saxena MD PCP: Leticia Pugh DO Status: REG CLI Study: Bilat Scrn Digital AND CAD Date of Exam: 08/08/15 Exam# [id number] [facility] Dr: Zhane Angeles MD MAMMOGRAPHY - BILATERAL SCREENING REASON FOR EXAM: Female, 59 years old. Routine annual screening examination. PERTINENT HISTORY: Non-contributory. TECHNIQUE: Digi mirna bilateral breast tomosynthesis (3-D mammographic acquisition) in the CC and MLO projections. Synthesized 2-D images (C-View reconstruction from tomosynthesis acquisition) providing bilateral breas t CC and MLO views. Mediolateral oblique (MLO) and craniocaudad (CC) views of both breasts were obtained. CAD: Full Field Digital Mammography with Computer Added Detection was performed. COMPARISON : Comparison is made with prior study dated August 03, 2014 and August 02, 2013. FINDINGS: Breast Composition: There are scattered areas of fibroglandular density. T here are no dominant masses or suspicious calcifications. No other significant abnormalities are identified. IMPRESSION: Stable bilateral screening mammogram. Y early follow-up mammogram recommended. (A) ASSESSMENT CATEGORY: BIRADS Category 1: Negative. A letter regarding these results will be sent to the patient by [facility] facility within 30 days. Approximately 10% of breast cancers are not detected by mammography. A normal mammogram should not delay biopsy of a clinically suspicious abnormality. [id number] Electron ically Signed: Ross Saxena MD at 10:53 EDT Tel [phone], Service support [phone], CC: Zhane Angeles MD; Leticia Pugh DO Field Gauger: Signed 15-Mar-2015 ELECTROCARDIOGRAM, COMPLETE (ECG) (97910) Result: [MEASUREMENTS ANALYSIS] Date of Test: 03/15/2015 11:59:12; Heart Rate: 78; CO Interval: 126; QRS: 100; QT Interval: 380; Corrected QT Interval (QTc): 411; P Wave Holly: 39; QRS Wave Holly: 44; T Wave Holly : 27; Blood Pressure: 126/82 [ECG DIAGNOSTIC STATEMENTS] Date of Test: 03/15/2015 11:59:12; Summary: Sinus Rhythm WITHIN NORMAL LIMITS 13-Feb-2015 PT D/C of Non Returning Pt. Result: Comments: See Note; NOTES: [facility] Physical Therapy [facility] [facility] [place], [place] [id number] Fax REHABILITATION RVICES DISCHARGE SUMMARY MR#: [id number] Acct: [id number] Name: RADHA RAMOS Rep #: [id number] : 1955 59 From: Morgan Barnes Referring DrDomenic: Joey Kebede DPKeyur Status: PRE RCR Eval Date: Discharge Date: HP - Discharge Summary - Patient Information RADHA RAMOS was seen in my office for initial evaluation on . The following Plan of Care was established for this patie nt: This patient was last seen in our office 01/20/15. Pertinent comments regarding their Physical therapy will appear below: Patient seen for PT following surgery for ankle ,pain was issue but prog ressing well wth ROM, strength of ankle. Follow up with you for further advisement, At this point I will be discontinuing this patient from physical therapy. I would be happy to see this patient ag ain in the future if found appropriate by the physician. Thank you! Morgan Barnes <Electronically signed by Morgan Barnes > 02/13/15 1731 CC: Joey Kebede DPM; Leticia Pugh DO Signed 05-Dec-2014 Inital Evaluation - PT Result: Comments: See Note; NOTES: [facility] Physical Therapy [facility] [facility] [place] [id number] Fax REHABILITATION SERVICES INITIAL EVALUATION MR#: [id number] Acct: [id number] Name: RADHA RAMOS Rep #: [id number] : 1955 59 From: Morgan Barnes Referring Dr.: Joey Kebede DPM Status: REG R Insurance: [employer] [facility] Date: DATE OF SERVICE: 11/29/2014 PHYSICIAN: Joey Kebede DPM. SUBJECTIVE: This patient by the name of Radha Richard who was born on 1955 was referred to [facility] with diagnosis of medical complexity issue of status post posterior tibial tendon debridement, flexor digitorum longus tendon transfer, calcaneal osteotomy, gastroc soleus recession, exostec antonette of the dorsal navicular joint, which was done by Dr. Kebede, on September 28, 2014. The patient has complaint of left foot pain for about 3 years. The patient tried different types of treatment, whic h did not help, thus underwent status post surgery as stated done by Dr. Kebede. The patient stated initially after the surgery, she was in a cast with no weightbearing for 5 weeks, then she used the scooter with no weightbearing on her leg. Then, 4 weeks ago, she was about weightbearing as tolerated with the boot on. She is allowed to wean herself from the shoe, but she has to have her brace on and she is to wear it is typically okay to walk around inside the house, but when she is outside continue to use the brace per physician. At this point, she states that her pain is 2/10_ on pain scal e. She has various complaints of paresthesia throughout her foot where the incision is mainly. MEDICATIONS: Celebrex. At this time, her foot impairs her ability to perform her housework chores, AD Ls as well as certain job demands as well as unable to walk normally. Her goals are to walk normally, return all level of activity. PAST MEDICAL HISTORY: Elevated cholesterol, insulin-dependent lisa betes, partial hysterectomy, appendectomy, gallbladder, rotator cuff repair. VOCATION: The patient works at [employer]. OBJECTIVE: OBSERVATION OF POSTURE: The patient has pes planus. GAI T ASSESSMENT: The patient ambulated into physical therapy department with her boot on. We did assess the patient's gait assessment without her boot. She ambulates with foot flat, decreased heel strike to toe off during the gait cycle. Also, decreased toe extension and flexion. Proprioception is poor, unable to single leg stand obviously. NEUROLOGICAL: Complains of inscion numbness/tingling but her light touch is intact although. The numbness is around the incision area. EDEMA: Trimalleolar joint line is 26.2 cm. Metatarsal head is 21.3 cm. Skin incision is well approximated. There was some mi ld redness noted. Pedal pulses are good. RANGE OF MOTION: Dorsiflexion of her left ankle is 10 degrees from 0, plantar flexion 50, inversion 20, eversion 10 degrees compares to her right ankle dorsif lexion is 5 degrees, plantar flexion is 65, inversion 35, eversion 10 degrees. Strength of ankle stabilizers on her left side and tibialis is 4-/5. Great toe extensors are 3+/5, gastroc soleus is 2+/ 5, posterior tibialis and peroneus is 4-/5 ORTHOPEDIC TESTS: Not appropriate. PALPATION: The patient has some generalized tenderness, it is grossly in the subtalar joint, etc. ASSESSMENT AND IMPRES CHANTAL: This patient has a medical complexity issue, which the patient has decreased range of motion, strength, proprioception along with pain due to undergoing status post surgery of her left foot wit h posterior tibial tendon debridement, flexor digitorum longus transfer, calcaneal osteotomy, gastroc soleus recession, exostectomy of dorsal navicular joint. Thus the patient will benefit from skille d physical therapy to address these impairments, to return to her prior level of activity as well as improving her proprioception and gait, increasing her strength, range of motion. We did perform low er functional disability scale, at 58 percent. PROBLEMS: 1. Decreased home exercise program. 2. Decreased range of motion. 3. Decreased strength. 4. Impaired gait. 5. Balance and proprioception. FUNCTION GOALS: 1. The patient will be independent with home exercise program for range of motion and strengthening. 2. Decrease pain of the left ankle with all functional activities by 60percent or greater to improve function. 3. The patient to increase range of motion of left ankle dorsiflexion to at least 0 degrees or greater and inversion to 35 eversion to 10, plantar flexion 60 degrees t o improve function, especially ability to ascend and descend steps reciprocally and stance time during the gait cycle. 4. The patient to increase strength of ankle stabilizers to 4/5 to improve funct ion, especially with heel strike to toe off during the gait pattern. 5. The patient to improve proprioception symmetrically, left compared to right. 6. The patient to normalize gait pattern to heel s trike to toe off during the gait cycle with minimal antalgic gait with good balance. PLAN: Plan of care was reviewed with the patient. We discussed with the patient basic anatomy of the left ankle. We discussed with the patient home exercise program. The patient has good rehab potential, progression of therapy as well as weightbearing with ambulation with boot and our goals. The patient agreed to plan of care and goals. We educated the patient to perform calf stretch 5 sets of 10 repetitions, dorsiflexion, plantar flexion, inversion and eversion x10 repetitions, dorsiflexion and plantar fle xion with orange band, calf and toe raises, toe crunch 2 sets of 15 repetitions with handout provided as well as therapeutic exercises. I plan to see this patient 2-3 times a week for the next 4-6 we eks focusing on home exercise program, range of motion, flexibility exercises to gastroc soleus, strengthening exercises to ankle stabilizers and iontophoresis with 4 percent dexamethasone, propriocep tion activities, gait and balance training, cold pack, moist hot pack, NuStep, bike as well as proprioception exercises. Morgan Barnes, PT T: NTS JOB: [id number] <Electronically signed by Morgan Barnes > 12/05/14 1319 CC: Signed For Medicare only, by signing this I certify the plan of care. Physicians Signature Date 28-Sep-2014 Discharge Instruction Result: Comments: See Note; NOTES: [facility] Medical Records Department [address] [place] [address] Instructions for Home/Discharge Instructions 09/28/14 1826 MR#: [id number] ct: [id number] Name: RADHA RAMOS Rep #: [id number] : 1955 58 From: Joey Kebede DPKeyur PCP: Leticia Pugh DO Status: REG [facility] Dis[place] Diet: Light diet - advance as tolerated Dis charge Activity: May Not Drive Weight Bearing Status: No weight bearing - No weightbearing left foot/ankle Call your doctor if your incision/area has: Sudden Increased Bleeding, Increased Pain/ Swelli ng Call your doctor if you observe: Fever of 101 or Higher, Coldness, Increased Pain, Shortness of breath, Dizziness, Chest pain, Increased palpitations (irregular heartbeat), Calf discomfort, Uncontr olled pain Cleanse incision/area with: Do not get Incision Wet, Keep Dressing Clean AND Dry Allergies/Adverse Reactions: Allergies No Known Allergies Allergy (Verified 09/24/14 09:03) Medicatio ns to take at Discharge Cholecalciferol (Vitamin D3) [Vitamin D3] 10,000 unit PO DAILY 09/24/14 Colestipol Tablet [Colestid Tablet] 2 gm PO DAILY 09/24/14 Cyanocobalamin [Vitamin B12] 100 mcg SC Q30 D 09/24/14 Cyclobenzaprine [Flexeril] 15 mg PO QHS 09/24/14 Ezetimibe [Zetia] 10 mg PO DAILY 09/24/14 Liraglutide [Victoza 2-Balbir] 0.1 - 8 mg SQ QHS 09/24/14 Oxycodone HCl/Acetaminophen [Percocet 5/3 25] 1 - 2 tablet PO Q6H PRN PRN #30 tablet 09/28/14 Rivaroxaban [Xarelto] 10 mg PO DAILY #14 tablet 09/28/14 The following prescriptions were given: Oxycodone HCl/Acetaminophen [Percocet 5/325] 1 - 2 tablet PO Q6H PRN PRN #30 tablet PRN Reason: Pain Rivaroxaban [Xarelto] 10 mg PO DAILY #14 tablet Please Follow Up With: Joey Kebede When: within 1 week, or sooner if needed 09/28/14 1 828 <Electronically signed by Joey Kebede DPM> Date Joey Kebeed DPM CC: Leticia Pugh DO 28-Sep-2014 Foot min 3 Views Result: Comments: See Note; NOTES: [facility] Imaging Services [address] [place] [address] Radiology Report MR#: [id number] Acct: [id number] Name: RADHA RAMOS Rep #: [id number] : 1955 F 58 From: Rohit Zamarripa MD PCP: Leticia Pugh DO Status: [facility] Study: Foot min 3 Views Date of Exam: 09/28/14 Exam# [id number] Ordering Dr: Joey Kebede DPM STUDY: X-RAY - LEFT FOOT CLINICAL: Female, 58 years old. Post-op, tendon repair TECHNIQUE: 3 view(s) of the foot. COMPARISON: Intraoperative x-rays of the left calcaneus on 09-28-14. FINDINGS: Status post osteotomy of the posterior process of the calcaneus and stabilization with a cannulated screw. Alignment is anatomical and no immediate post surgical complic ations are seen. Cast is in place. Normal visualized subtalar, talonavicular, calcaneocuboid, tarsal and tarsometatarsal articulations. Normal metatarsi. Normal metatarsophalangeal joint of the g reat toe. Normal tibial and fibular sesamoid bones. Normal interphalangeal joint of the great toe. Normal phalanges of the great toe. Normal second through fifth metatarsophalangeal joints. Normal interphalangeal joints and phalanges of the lesser toes. The soft tissue structures are unremarkable. IMPRESSION: Status post osteotomy of the posterior process of the calcaneus and stabilization with a cannulated screw. Alignment is anatomical and no immediate post surgical complications are seen. Cast is in place. Electronically Signed: Rohit gomez MD, FACR at 20:28 EDT , Service support [phone], RAD/Foot min 3 Views IMPRESSION: Status post osteotomy of the posterior pr ocess of the calcaneus and stabilization with a cannulated screw. Alignment is anatomical and no immediate post surgical complications are seen. Cast is in place. Electronically Signed: Rohit laird MD, FACR at 20:28 EDT , Service support [phone], CC: Joey Kebede DPM; Leticia Pugh DO Field Gauger: Signed 28-Sep-2014 Calcaneus min 2 Views Result: Comments: See Note; NOTES: [facility] Imaging Services [address] [place] [address] Radiology Report MR#: [id number] Acct: [id number] Name: RADHA RAMOS Rep #: [id number] : 1955 F 58 From: Rohit Zamarripa MD PCP: Leticia Pugh DO Status: [facility] Study: Calcaneus min 2 Views Date of Exam: 09/28/14 Exam# [id number] Ordering Dr: Joey Kebede DPM S JEFFREY: X-RAY - LEFT CALCANEUS REASON FOR EXAM: Female, 58 years old. ORIF calcaneus TECHNIQUE: 4 view(s) of the calcaneus were obtained. COMPARISON: None. FIN DINGS: Intraoperative control Status Post osteotomy of the posterior process of the calcaneus and stabilization with a cannulated screw. Alignment is anatomical and no immediate post surgical complic ations are seen. IMPRESSION: Status Post osteotomy of the posterior process of the calcaneus and stabilization with a cannulated screw. Alignment is anatomical and no immediate post surgical complications are seen. Electronically Signed: Rohit Zamarripa MD, FACR at 20:32 EDT , Service support [phone], RAD/Calcaneus min 2 Views IMPRESSION: Status Post osteotomy of the posterior process of the calcaneus and stabilization with a cannulated screw. Alignment is anatomical and no immediate post surgical complications are seen. Electronically Signed: Rohit Zamarripa MD, FACR at 20:32 EDT , Service support [phone], CC: Joey Kebede DPM; Leticia Pugh DO Field Gauger: Signed 27-Aug-2014 Lower Ext Joint Only (Routine) Result: Comments: See Note; NOTES: [facility] Imaging Services [address] [place] [address] MRI Report MR#: [id number] Acct: [id number] Name: RADHA RAMOS Rep #: [id number] : 1955 F 58 From: Rohit Zamarripa MD PCP: Leticia Pugh DO Status: REG CLI Study: Lower Ext Joint Only (Routine) Date of Exam: 08/27/14 Exam# [id number] Ordering Dr: Joey Kebede DPM STUDY: MRI LEFT ANKLE WITHOUT CONTRAST REASON FOR EXAM: Female, 58 years old. PTT dysfunction. Tendinitis. Evaluate ankle through navicular tuberosity. TECHNIQUE: Standardized fat and water weigh temitope pulse sequences were obtained in all 3 orthogonal planes. COMPARISON: None. FINDINGS: Normal subcutis adipose space. There is mild tenosynovitis of the p osterior tibialis tendon without tendinosis or tear. Normal flexor digitorum longus tendon. Normal flexor hallucis longus tendon. Normal peroneus longus and brevis tendons. Normal tibialis anterior t endon. Normal extensor hallucis longus tendon. Normal extensor digitorum longus tendons. Normal Achilles tendon and teno-osseous insertion. Normal plantar fascia. There is a plantar calcaneal spur, but without cancellous marrow edema. Normal intrinsic muscles of the rearfoot. Normal distal tibiofibular syndesmotic ligamentous complex. There is thickening of the anterior talofibular ligament c onsistent with an old sprain (axial T2 series 4 image 18) Normal subtalar ligaments and sinus tarsi. Normal deltoid ligamentous complexes. Normal plantar calcaneonavicular (spring) ligament. Normal tibiotalar articulation. Normal talar dome. Normal subtalar articulations. There are degenerative changes of the talonavicular joint with dorsal osteophyte formation Normal calcaneocuboid articulatio n. Normal navicular-cuneiform articulations. There are cystic changes in the lateral aspect of the cuboid bone IMPRESSION: Mild tenosynovitis of the posterior t ibialis tendon, without tendinosis or tear. Thickening of the anterior talofibular ligament consistent with an old sprain. Degenerative changes of the talonavicular joint with dorsal osteophyte f ormation. Cystic changes in the lateral aspect of the cuboid bone. Electronically Signed: Rohit Zamarripa MD, FACR at 17:00 EDT , Service support [phone], Fax CC: Joey Kebede MD; Leticia Pugh DO Field Gauger: Signed 27-Aug-2014 Lower Ext Joint Only (Routine) Result: Comments: See Note; NOTES: [facility] Imaging Services [address] [place] [address] MRI Report MR#: [id number] Acct: [id number] Name: RADHA RAMOS Rep #: [id number] : 1955 F 58 From: Rohit Zamarripa MD PCP: Leticia Pugh DO Status: REG CLI Study: Lower Ext Joint Only (Routine) Date of Exam: 08/27/14 Exam# [id number] Ordering Dr: Joey Kebede DPM ADDENDUM by Rohit Zamarripa MD on 09/17/14 at 1408 ADDENDUM The images were reviewed. In addit ion to the tenosynovitis of the posterior tibialis tendon, there is mild thickening at the level of the insertion into the medial pole of the navicular bone consistent with tendinosis (short axis T2 series 5 image 34). There is a rounded ossicle at the level of the medial pole of the navicular bone consistent with a type I accessory navicular (coronal T1 series 8 image 24). Electronically Kristin d: Rohit Zamarripa MD, FACR at 14:08 EDT , Service support [phone], 09/17/14 1408 Date cc: Joey Kebede DPM; Leticia Pugh DO * Signed STUDY: MRI LEFT ANKLE WITHOUT CONTRAST REASON FOR EXAM: Female, 58 years old. PTT dysfunction. Tendinitis. Evaluate ankle through navicular tuberosity. TECHNIQUE: Standardize d fat and water weighted pulse sequences were obtained in all 3 orthogonal planes. COMPARISON: None. FINDINGS: Normal subcutis adipose space. There is mild t enosynovitis of the posterior tibialis tendon without tendinosis or tear. Normal flexor digitorum longus tendon. Normal flexor hallucis longus tendon. Normal peroneus longus and brevis tendons. Normal tibialis anterior tendon. Normal extensor hallucis longus tendon. Normal extensor digitorum longus tendons. Normal Achilles tendon and teno-osseous insertion. Normal plantar fascia. There is a pl sade calcaneal spur, but without cancellous marrow edema. Normal intrinsic muscles of the rearfoot. Normal distal tibiofibular syndesmotic ligamentous complex. There is thickening of the anterior t alofibular ligament consistent with an old sprain (axial T2 series 4 image 18) Normal subtalar ligaments and sinus tarsi. Normal deltoid ligamentous complexes. Normal plantar calcaneonavicular (sprin g) ligament. Normal tibiotalar articulation. Normal talar dome. Normal subtalar articulations. There are degenerative changes of the talonavicular joint with dorsal osteophyte formation Normal calca neocuboid articulation. Normal navicular-cuneiform articulations. There are cystic changes in the lateral aspect of the cuboid bone IMPRESSION: Mild tenosynovit is of the posterior tibialis tendon, without tendinosis or tear. Thickening of the anterior talofibular ligament consistent with an old sprain. Degenerative changes of the talonavicular joint with dorsal osteophyte formation. Cystic changes in the lateral aspect of the cuboid bone. Electronically Signed: Rohit Zamarripa MD, FACR at 17:00 EDT , Service suppor t [phone], CC: Joey Kebede DPM; Leticia Pugh DO Field Gauger: Signed 03-Aug-2014 Bilat Scrn Digital AND CAD Result: Comments: See Note; NOTES: [facility] Imaging Services [address] [place] [address] Breast Imaging Report MR#: [id number] Acct: [id number] Name: RADHA RAMOS Rep #: [id number] : 1955 F 58 From: Ross Saxena MD PCP: Leticia Pugh DO Status: REG CLI Study: Faviola Vincent Digital AND CAD Date of Exam: 08/03/14 Exam# [id number] Ordering Dr: Lelo Angeles MD MAMMOGRAPHY - BILATERAL SCREENING REASON FOR EXAM: Female, 58 years old. Routine annual screening examination. PERTINENT HISTORY: Non- contributory. TECHNIQUE: Digital examination. Medio lateral oblique (MLO) and craniocaudad (CC) views of both breasts were obtained. CAD: CAD was performed on this study. COMPARISON: Comparison is made with prior study dated August 02, 2013 and July 29, 2012. FINDINGS: Breast Composition: The breasts are heterogeneously dense, which may obscure small masses. There are no dominant masses or suspicious calcific ations. No other significant abnormalities are identified. There has been no significant change since the prior study. IMPRESSION: Stable bilateral screening m ammogram. Yearly follow-up recommended. (A) ASSESSMENT CATEGORY: BIRADS Category 2: Benign. A letter regarding these results will be sent to the patient by the [facility] within 30 days. Approximately 10% of breast cancers are not detected by mammography. A normal mammogram should not delay biopsy of a clinically suspicious abnormality. Electronically Kristin d: Ross Saxena MD at 13:16 EDT Tel [phone], Service support [phone], CC: Zhane Angeles MD; Leticia Pugh DO Field Gauger: Signed 03-Aug-2014 Bilat Scrn Digital AND CAD Result: Comments: See Note; NOTES: [facility] Imaging Services [address] [place] [address] Breast Imaging Report MR#: [id number] Acct: [id number] Name: RADHA RAMOS Rep #: [id number] : 1955 F 58 From: Ross Saxena MD PCP: Leticia Pugh DO Status: REG CLI Study: Faviola Vincent Digital AND CAD Date of Exam: 08/03/14 Exam# [id number] Ordering Dr: Lelo Angeles MD MAMMOGRAPHY - BILATERAL SCREENING REASON FOR EXAM: Female, 58 years old. Routine annual screening examination. PERTINENT HISTORY: Non- contributory. TECHNIQUE: Digital examination. Medio lateral oblique (MLO) and craniocaudad (CC) views of both breasts were obtained. CAD: CAD was performed on this study. COMPARISON: Comparison is made with prior study dated August 02, 2013 and July 29, 2012. FINDINGS: Breast Composition: The breasts are heterogeneously dense, which may obscure small masses. There are no dominant masses or suspicious calcific ations. No other significant abnormalities are identified. There has been no significant change since the prior study. IMPRESSION: Stable bilateral screening m ammogram. Yearly follow-up recommended. (A) ASSESSMENT CATEGORY: BIRADS Category 2: Benign. A letter regarding these results will be sent to the patient by the [facility] within 30 days. Approximately 10% of breast cancers are not detected by mammography. A normal mammogram should not delay biopsy of a clinically suspicious abnormality. Electronically Kristin d: Ross Saxena MD at 13:16 EDT Tel [phone], Service support [phone], CC: Zhane Angeles MD; Leticia Pugh DO Field Gauger: Signed 03-Aug-2014 Bilat Scrpatricia Digital AND CAD Result: Comments: See Note; NOTES: [facility] Imaging Services [address] [place] [address] Breast Imaging Report MR#: [id number] Acct: [id number] Name: RADHA RAMOS Rep #: [id number] : 1955 F 58 From: Ross Saxena MD PCP: Leticia Pugh DO Status: REG CLI Study: Faviola Vincent Digital AND CAD Date of Exam: 08/03/14 Exam# [id number] Ordering Dr: Lelo Angeles MD MAMMOGRAPHY - BILATERAL SCREENING REASON FOR EXAM: Female, 58 years old. Routine annual screening examination. PERTINENT HISTORY: Non- contributory. TECHNIQUE: Digital examination. Medio lateral oblique (MLO) and craniocaudad (CC) views of both breasts were obtained. CAD: CAD was performed on this study. COMPARISON: Comparison is made with prior study dated August 02, 2013 and July 29, 2012. FINDINGS: Breast Composition: The breasts are heterogeneously dense, which may obscure small masses. There are no dominant masses or suspicious calcific ations. No other significant abnormalities are identified. There has been no significant change since the prior study. IMPRESSION: Stable bilateral screening m ammogram. Yearly follow-up recommended. (A) ASSESSMENT CATEGORY: BIRADS Category 2: Benign. A letter regarding these results [facility] the [facility] days. Approximately 10% of breast cancers are not detected by mammography. A normal mammogram should not delay biopsy of a clinically suspicious abnormality. Electronically Kristin d: Ross Saxena MD at 13:16 EDT Tel [phone], Service support [phone], CC: Zhane Angeles MD; Leticia Pugh DO Field Gauger: Signed 05-Jul-2014 PT Discharge Summary Result: Comments: See Note; NOTES: [facility] Physical Therapy [facility] [address] [place], [place] [address] Fax REHABILITATION SERVICES DISCHARGE SUMMARY MR#: [id number] Acct: [id number] Name: RADHA RAMOS Rep #: [id number] : 1955 58 From: Morgan Barnes Referring Dr.: Leticia Pugh DO Status: PRE RCR Eval Date: Date: DATE OF SERVICE: REFERRING PHYSICIAN: Leticia Pugh D.O. This patient by the name of Radha Ramos was seen in our physical therapy clinic with a diagnosis of cervical radicul opathy. At discharge, the patient reported about 30% better overall. The patient admitted intermittent pain behind the eye. The patient was to follow up with Dr. Pugh for further medical consultat ion. The patient responded positively with manual therapy techniques to include soft tissue massage, traction, Benny exercises as well as posture correction and therapeutic exercises. The patient had no pain today. Cervical range of motion minimally loss for extension, rotation, lateral flexion.Patient cervical spine has pain on the right side compared to the left side. The patient continu ed to have pain, which is intermittent behind her eye. She had no radiculopathy today. At this point, we will discharge the patient from our care. She has already seen you in your office probably at this point. Once again, thank you for this referral. Sincerely, Morgan Barnes, PT T: NTS JOB: [id number] <Electronically signed by Morgan Barnes > 07/05/14 1429 CC: Signed 18-May-2014 Brain W/WO Contrast Result: Comments: See Note; NOTES: [facility] Imaging Services [address] [place] [address] MRI Report MR#: [id number] Acct: [id number] Name: RADHA RAMOS Rep #: [id number] D OB: 1955 F 58 From: Yolanda Vitale MD PCP: Leticia Pugh DO Status: REG CLI Study: Brain W/WO Contrast Date of Exam: 05/18/14 Exam# [id number] Ordering Dr: Leticia Pugh DO STUDY: MRI BRAIN WITH AND WITHOUT CONTRAST REASON FOR EXAM: Female, 58 years old. Right-sided neck pain which radiates to the right eye for 2 months. TECHNIQUE: Standardized multiplanar fat and water weighted puls e sequences were obtained. 8 ml of Gadavist contrast material was administered intravenously for the contrast portion of the examination. COMPARISON: None. FIN DINGS: Normal size of the ventricles and extra-axial spaces for the patient's age. There are a limited number of small white matter hyperintensities, distributed throughout the deep white matter trac ts of the cerebral hemispheres, consistent with mild chronic white matter ischemic changes. There is no evidence for recent intracranial ischemia or other cause of cytotoxic edema on diffusion weigh temitope imaging (DWI). Normal bilateral basal ganglia. Normal thalami. There is no extra-axial fluid accumulation. Normal flow voids within the major intracranial circulation suggesting patency by spi n echo criteria. Normal venous enhancement. There is no enhancing intra-axial or extra-axial abnormality. Normal sella turcica, pituitary gland, infundibular stalk, optic chiasm and hypothalamus. No rmal tectal plate and pineal gland. Normal midbrain, yue and medulla. Normal cerebellum. Normal basal cisterns. Normal bilateral temporal bones. Normal bilateral internal auditory canals. No demo nstrated orbital abnormality, within the constraints of a routine brain study. Orbital apices are unremarkable. Cavernous sinuses and Meckel's caves are also unremarkable. There is minimal mucosal t hickening involving both maxillary sinuses. Normal rest of visualized paranasal sinuses. Normal calvarium and skull base. Normal visualized soft tissue structures. Normal visualized upper cervical s pine. IMPRESSION: Normal unenhanced and enhanced MRI of the brain. No suspicious enhancement. No mass lesion. Electronically Signed: Michael Vitale MD at 17:10 EDT , Service support [phone], CC: Leticia Pugh DO Field Gauger: Signed 18-May-2014 Spine Cervical (Routine) Result: Comments: See Note; NOTES: [facility] Imaging Services [address] [place] [address] MRI Report MR#: [id number] Acct: [id number] Name: RADHA RAMOS Rep #: [id number] D OB: 1955 F 58 From: Yolanda Vitale MD PCP: Leticia Pugh DO Status: REG CLI Study: Spine Cervical (Routine) Date of Exam: 05/18/14 Exam# [id number] Ordering Dr: Leticia Pugh DO STUDY: MRI CERVICAL SPINE WITHOUT CONTRAST REASON FOR EXAM: Female, 58 years old. Severe right sided neck pain with radiculopathy to right side x2 months. TECHNIQUE: Standardized fat and water weighted pulse sequences were obtained in the sagittal and axial planes. No intravenous contrast was administered for this study. COMPARISON: None FINDINGS: Normal foramen m agnum and brainstem-cervical cord junction. Normal craniovertebral junction. Normal anterior atlantoaxial articulation. Normal odontoid process. There is straightening of the normal cervical lordosi s. Posterior elements articulate appropriately. There is no demonstrated compression deformity or fracture of the visualized vertebrae. There is no subluxation. Marrow and muscle signal is unremark able. No suspicious marrow lesion is seen. C2-3: Normal endplates. Normal disc height, and morphology. Normal central canal and intervertebral neural foramina. C3-4: Normal endplates. Normal disc height, and morphology. Normal central canal and intervertebral neural foramina. C4-5: Normal endplates. Mild diffuse disc bulge. Normal central canal and right-sided intervertebral neural foramina. Minimal left-sided neural foraminal narrowing. C5-6: Normal endplates. Mild diffuse disc bulge. Normal central canal. Minimal bilateral neural foraminal narrowing. C6-7: Normal endplates. Mild di ffuse disc bulge. Normal central canal and intervertebral neural foramina. C7-T1: Normal endplates. Normal disc height, and morphology. Normal central canal and intervertebral neural foramina. Nor mal cervical cord. There is no demonstrated cervical cord injury. Normal visualized soft tissue structures. IMPRESSION: Multilevel degenerative changes, as desc ribed above. Straightening of lordotic curvature. No nerve impingement. No significant central canal stenosis or neural foraminal narrowing. Electronically Signed: Michael Vitale MD at 22 :30 EDT , Service support [phone], CC: Leticia Pugh DO Field Gauger: Signed 20-Apr-2014 Inital Evaluation - PT Result: Comments: See Note; NOTES: [facility] Physical Therapy [address] [place] [address] Fax REHABILITATION SERVICES INITIAL EVALUATION MR#: [id number] Acct: [id number] Name: RADHA RAMOS Rep #: [id number] : 1955 58 From: Morgan Barnes Referring : Leticia Pugh DO Status: REG R Insurance: A [facility] Date: DATE OF SERVICE: 04/17/2014 REFERRING PHYSICIAN: Dr. Leticia Pugh SUBJECTIVE: this is a 58-year-old female by the name of Radha Ramos, who was born on 1955, was referred to physical therapy with diagnosis of cervical radiculopathy. this patient complained of right-sided cervical pain, which radiates to occipital, back of her head. Occasionally radiates to her posterior eye. She states that she has a history of a bulging disk many years ago. She did receive prior physical therapy. Most recently, she had been trying director of critical care, which consist ed of manipulations with some extension. She states that also she has some equilibrium problems when she gets up. She described many things such as steroids, muscle relaxers, which did not help. X-r ays showed degenerative disk disease. No recent MRI, although she does have a prior MRI, which showed some bulging disk in the past. She has no abnormal night pain except she has difficulty sleeping throughout the night, typically on 2 pillows supine, side position. No unexplained weight loss. No major accidents or surgeries. Her symptoms today are 5-6/10 on pain scale on the right side of her neck. She reports that they are worse when she is bending her neck sitting, sleeping, looking upwards. Heat and ice sometimes makes it better. PAST MEDICAL HISTORY: Gallbladder, right shoulder ar throscopic, history of neck pain. SOCIAL HISTORY: . VOCATION: Works at [employer]. Goals to get rid of pain. OBJECTIVE: POSTURE: The patient sits with rounded shoulders, head f orward. PALPATION: The patient has moderate tenderness of right side of cervical spine, base of occipital spine as well on the right side. Paraspinals are very tender to touch. NEUROLOGICAL: Denies numbness/tingling. Reflexes symmetrically elicited at C5- C7. Correction of posture somewhat better. Myotomes intact. Upper extremity range of motion within normal limits. Strength upper extremities grossly 4/5 for deltoid, biceps, triceps, wrist flexor, extensors. 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 Negative ANR. MOVEMENT LOSS: Protrusion minimal loss with pain end range; flexion min-to- moderate loss; retraction, extension minimal loss; side bending to the right minimal loss; side bend to left is omc-ei-[id number] loss; rotation to the right minimal loss; rotation to the left is yhm-yj-sklbppjs loss. Repeated motion, right neck pain. Protrusion, increased right-sided neck pain, then produces symptoms behind the eye, symptoms slightly worse behind right-sided nec k. Retraction, pull with end range, no worse. Extension, pull with end range, no worse. Right lateral flexion increases pain repetitively, but no worse. Side bending to the left, increased pulling, n o worse. Rotation to the left increases pain, no worse, more of a stretching sensation. Flexion increased symptoms slightly worse right side of her cervical spine. SPECIAL TESTS: Quadrant test ne gative. Compression somewhat painful. Distraction decreases symptoms. ASSESSMENT, PROVISIONAL DIAGNOSIS: The patient appears to have right side neck pain, was very tender to touch as well as some atypical symptoms that radiate to her posterior eye. She is very tender at base of occipital spine as well. Repeated motions do not make symptoms better, although she has limitations mostly in all aliza rica. She does exhibit a derangement, which does have history of bulging disk. There is also some tenderness associated with her symptoms. Medications do not help. The patient will benefit from skill ed physical therapy to address the above impairments, the patient can benefit from further diagnostics. PROBLEM LIST: 1. Decreased home exercise program. 2. Decreased posture. 3. Increased right- sided neck pain. 4. Tenderness. 5. Function. GOALS: 1. The patient will be independent with home exercise program to self-manage symptoms. 2. The patient independant posture awareness during func tional demands. 3. The patient to decrease right-sided neck pain by 60 greater to improve function. 4. The patient to increase range of motion within normal limits in all planes of motion without p ain. 5. The patient will be able to perform housework chores, ADLs without symptoms of pain, sleeping postures, etc as well as job demands. 6. The patient to have minimal palpational assessment of r ight neck without pain. PLAN: Plan of care was reviewed with the patient. We discussed with the patient basic anatomy of the neck. We discussed with the patient benefits of physical therapy. We di scussed with the patient a home exercise program consisting mainly correction of posture. Today, we implemented ultrasound treatment x8 minutes at 1.3 queen per meter squared right-sided neck pain. Then, we implemented soft tissue massage x10 minutes followed by moist hot pack x10 minutes, manual therapy times 10 minutes, which consisted of soft tissue massage, myofascial cervical distraction, followed by moist hot pack x10 minutes. Plan to see this patient twice a week for 4 weeks focusing on home exercise program, Benny exercises, posture exercises, manual therapy techniques to incl ude soft tissue massage, modalities such as ultrasound with stimulation, cold pack, moist hot pack, patient education. Morgan Barnes, PT T: NTS JOB: [id number] <Electronically signed by Morgan Barnes > 04/20/14 0856 CC: Signed For Medicare only, by signing this I certify the plan of care. Physicians Signature Date 11-Apr-2014 Cerv Spine 4 or 5 Views Result: Comments: See Note; NOTES: [facility] Imaging Services [address] [place] [address] Radiology Report MR#: [id number] Acct: [id number] Name: RADHA RAMOS Rep #: [id number] : 1955 F 58 From: Sofia Gamble MD PCP: Leticia Pugh DO Status: REG CLI Study: Cerv Spine 4 or 5 Views Date of Exam: 04/11/14 Exam# [id number] Ordering Dr: Leticia Pugh: X-RAY - CERVICAL SPINE REASON FOR EXAM: Female, 58 years old. Right-sided neck pain TECHNIQUE: 5 view(s) of the cervical spine were obtained. COMPARISON: None FINDINGS: Normal anterior atlantoaxial articulation. Normal odontoid process. Normal cervical lordosis. Normal vertebral bodies and endplates. Minimal disc narrowing and spondylitic endplate changes. Normal visualized intervertebral neuroforamina. The soft tissue structures are unremarkable. IMPRESSION: Normal x- ray examination of the visualized c ervical spine. Electronically Signed: Sofia Gamble MD at 16:35 EST , Service support [phone], RAD/Cerv Spine 4 or 5 Vie ws IMPRESSION: Normal x-ray examination of the visualized cervical spine. Electronically Signed: Sofia Gamble MD at 16:35 EST , Service support [phone], CC: Leticia Pugh DO Field Gauger: Signed 30-Mar-2014 Esophagus Only Result: Comments: See Note; NOTES: [facility] Imaging Services [address] [place] [address] Radiology Report MR#: [id number] Acct: [id number] Name: RADHA RAMOS Rep #: [id number] : 1955 F 58 From: Ross Saxena MD PCP: eLticia Pugh DO Status: REG CLI Study: Esophagus Only Date of Exam: 03/30/14 Exam# [id number] Ordering Dr: James Garrido MD STUDY: X-RAY - ESOPHAGUS (BARIUM SWALLOW) WITH FLUOROSCOPY REASON FOR EXAM: Female, 58 years old. Chest pressure and dysphagia. TECHNIQUE: Multiple view(s) of the esophagus were obtained following swallow ing of barium. FLUOROSCOPY TIME (if supplied): (0:36) minutes/seconds COMPARISON: None. FINDINGS: There is no demonstrated esophageal foreign body. There is n o demonstrated stricture or mucosal abnormality. Normal gastroesophageal junction, without a demonstrated hiatal hernia. The patient ingested a 12 mm tablet of barium without any difficulty. Normal visualized aortic arch and descending thoracic aorta. Normal visualized pulmonary parenchyma. Normal visualized osseous structures of the thorax. IMPRESSION: Normal plain film x-ray examination (barium swallow) of the esophagus. Electronically Signed: Ross Saxena MD at 9:25 EST Tel [phone], Service support [phone], Fax CC: Leticia Pugh DO; Betinamichell Hema Field Gauger: Signed 08-Feb-2014 Stress Test Echo w/o Contrast Result: Comments: See Note; NOTES: [facility] Cardiovascular Services [address] [place] [address] STRESS TEST REPORT 02/02/14 1143 MR#: [id number] Acct: [id number] Name: RADHA RAMOS Rep #: [id number] : 1955 58 From: Guevara Casanova MD Primary Care: Leticia Pugh DO Status: REG CLI Ordering Dr: Service Date: 02/08/14 Order Date: Sex: F C Stress Results Pro tocol: Stress Echocardiogram Maximum Predicted HR: 163 bpm Target HR: 139 bpm % Maximum Predicted HR: 94 % Stage DurationHeart Rate BP (mm:ss) (bpm) Baseline 80 130/72 Fabricio Protocol- Stage 1 3: 00 115 132/70 Fabricio Protocol- Stage 2 3:00 133 160/72 Fabricio Protocol- Stage 3 2:00 153 180/74 Recovery 90 138/76 Stress Duration: 8:00 mm:ss Maximum Stress HR: 153 bpm Baseline Echocardiogram Fi ndings Stress Echo Wall motion Data Resting WM Intermediate WM Stress WM Resting Wall Motion Wall Motion Stress No regional wall motion No regional wall motion abnormalities noted. abnormalit ies noted. Ejection Fraction 55 %. Ejection Fraction 65 %. EKG Data Baseline ECG demonstrates normal sinus rhythm with a rate of 80 beats per minute. The patient exercised according to the regula r Fabricio protocol for a total duration of 8. The maximum heart rate attained was 153 beats per minute. This was 93% of maximum predicted heart rate. The patient exercised into stage 3 of the Fabricio pr otocol. At rest, there were no ST or T wave changes noted to suggest ischemia. At peak exercise, upsloping ST changes only were noted, which did not meet the criteria for ischemia. The peak blood p ressure was 180/74. No arrhythmias noted. No clinical angina was noted. Interpretation Summary Normal resting LV systolic function. Nonstenotic valves. With stress, the LV size decreased and all segments augmented normally. The LVEF increased from % to XX%. Negative for ischemia at XX% of MPHR and at XX METS. Normal resting LV systolic function. Nonstenotic valves. With stress, the LV size decreased and all segments augmented normally. The LVEF increased from 55% to 65%. Negative for ischemia at 93% of MPHR and at 10.1 METS. No chest pain noted and test terminated due to fatigue. Nor mal Exercise stress echo. Ordering Physician: Leticia Pugh M.D. Performed By: Dino Garza RDCS 02/05/14 0902 Date Guevara Casanova MD CC: Leticia Pguh DO Date Dictate d: 02/02/14 1143 Date Transcribed: 02/05/14 09 Field Gauger: Signed 08-Feb-2014 Echocardiogram Complete Result: Comments: See Note; NOTES: [facility] Cardiovascular Services [address] [place] [address] STRESS TEST REPORT 02/02/14 1143 MR#: [id number] Acct: [id number] Name: RADHA RAMOS Rep #: [id number] : 1955 58 From: Guevara Casanova MD Primary Care: Leticia Pugh DO Status: REG CLI Ordering Dr: Tanvi Hawthorne Service Date: 02/02/14 Order Date: 02/02/14 Sex: F C Left Ventricle Normal LV size. The estimated ejection fraction is 55 %. No regional wall motion abnormalities noted. Right Ventricle Normal RV size. Normal systolic function. Atria Normal lef t atrium. Normal right atrium. Mitral Valve Normal mitral valve. Tricuspid Valve Normal tricuspid valve. Aortic Valve Trisinus/trileaflet aortic valve. Pulmonic Valve Normal pulmonic valve. Great Vessels Normal aortic root. Pericardium/Pleural No pericardial effusion. LVIDd: 4.5 cm IVSd: 0.89 cm Ao root diam: 2.2 cm LAV(MOD-bp): 22.6 ml LVIDs: 2.9 cm LVPWd: 0.85 cm RVDd: 3.6 cm FS: 35.8 % Ao root area: 3.7 cm2 LAV(MOD-bp) Indexed: 11.7 ml/m2 LA dimension: 3.7 cm LAV(MOD-sp2): 19.4 ml LAV(MOD-sp4): 24.8 ml MV E max suraj: 64.4 cm/sec Ao V2 max: 104.8 cm/sec LV V1 max: 88.7 cm/sec PA V2 max: 121.0 cm/sec MV A max suraj: 76.0 cm/sec Ao max P.4 mmHg LV V1 max P.1 mmHg PA max P.9 mmHg MV E/A: 0.85 Interpretation Summary Normal LV size. The estimated ejectio n fraction is 55 %. No regional wall motion abnormalities noted. Structurally normal valves. Ordering Physician: Tanvi Hawthorne Referring Physician: Guevara Casanova MD Performed By: Amy Garza, KATIA 02/05/14 0836 Date Guevara Casanova MD CC: Tanvi Hawthorne; Leticia Pugh Date Dictated: 02/02/14 1143 Date Transcribed: 02/05/1436 Field Gauger: Signed 06-Feb-2014 Upper GI Series Only Result: Comments: See Note; NOTES: [facility] Imaging Services [address] [place] [address] Radiology Report MR#: [id number] Acct: [id number] Name: RADHA RAMOS Rep #: [id number] : 1955 F 58 From: Segun Loomis MD PCP: Leticia Pugh DO Status: REG CLI Study: Upper GI Series Only Date of Exam: 02/06/14 Exam# [id number] Ordering Dr: Tanvi Hawthorne CLINICAL HISTOR Y: Female, 58 years old. Dysphagia, heartburn PROCEDURE: Air-contrast upper GI study FLUOROSCOPY TIME (if supplied): (1:04) minutes/seconds Findings: Swallowing was initiated normally without n asopharyngeal reflux or aspiration. No evidence of a Zenker's diverticulum noted on the lateral view. Normal peristaltic activity is noted in the proximal and mid esophagus. There was some collecti on of barium proximal to the pylorus and there were episodes of intraesophageal reflux due to the tight pyloric channel. However, when the patient perform a dry swallow, the pyloric channel dilated n ormally and barium passed through into the stomach without difficulty. No demonstrated GE reflux The stomach and duodenum distend normally without evidence of rugal folds are or gross ulceration. No rmal location of the ligament of Treitz left of the spine. IMPRESSION: Patient shows evidence of a tight pyloric channel which is sometimes causing accumulation of barium in the distal esophagus and intraesophageal reflux was noted. The sphincter relaxed with dry swallowing and barium would then pass through the pyloric channel without difficulty. Patient wa s instructed to perform some dry swallows when eating and drinking in order to allow fluid to pass through the distal esophagus into the stomach without accumulating. No demonstrated GE reflux, muc osal ulceration or mass lesion. Electronically Signed: Kevin Loomis MD at 10:55 EST , Service support [phone], RAD/Upper GI Series Only IMPRESSION: Patient shows evidence of a tight pyloric channel which is sometimes causing accumulation of barium in the distal esophagus and intraesophageal reflux was noted. The sphin cter relaxed with dry swallowing and barium would then pass through the pyloric channel without difficulty. Patient was instructed to perform some dry swallows when eating and drinking in order to al low fluid to pass through the distal esophagus into the stomach without accumulating. No demonstrated GE reflux, mucosal ulceration or mass lesion. Electronically Signed: Kevin Loomis MD 2013 at 10:55 EST , Service support [phone], CC: Tanvi Hawthorne; Leticia Pugh DO Field Gauger: Signed 05-Feb-2014 Stress Test Echo w/o Contrast Result: Comments: See Note; NOTES: [facility] Cardiovascular Services [address] [place] [address] STRESS TEST REPORT 02/02/14 1143 MR#: [id number] Acct: [id number] Name: RADHA RAMOS Rep #: [id number] : 1955 58 From: Guevara Casanova MD Primary Care: Leticia Pugh DO Status: REG CLI Ordering Dr: Tanvi Hawthorne Service Date: 02/02/14 Order Date: 02/02/14 Sex: F C Left Ventricle Normal LV size. The estimated ejection fraction is 55 %. No regional wall motion abnormalities noted. Right Ventricle Normal RV size. Normal systolic function. Atria Normal lef t atrium. Normal right atrium. Mitral Valve Normal mitral valve. Tricuspid Valve Normal tricuspid valve. Aortic Valve Trisinus/trileaflet aortic valve. Pulmonic Valve Normal pulmonic valve. Great Vessels Normal aortic root. Pericardium/Pleural No pericardial effusion. LVIDd: 4.5 cm IVSd: 0.89 cm Ao root diam: 2.2 cm LAV(MOD-bp): 22.6 ml LVIDs: 2.9 cm LVPWd: 0.85 cm RVDd: 3.6 cm FS: 35.8 % Ao root area: 3.7 cm2 LAV(MOD-bp) Indexed: 11.7 ml/m2 LA dimension: 3.7 cm LAV(MOD-sp2): 19.4 ml LAV(MOD-sp4): 24.8 ml MV E max suraj: 64.4 cm/sec Ao V2 max: 104.8 cm/sec LV V1 max: 88.7 cm/sec PA V2 max: 121.0 cm/sec MV A max suraj: 76.0 cm/sec Ao max P.4 mmHg LV V1 max P.1 mmHg PA max P.9 mmHg MV E/A: 0.85 Interpretation Summary Normal LV size. The estimated ejectio n fraction is 55 %. No regional wall motion abnormalities noted. Structurally normal valves. Ordering Physician: Tanvi Hawthorne Referring Physician: Guevara Casanova MD Performed By: Amy Garza RDCS 02/05/14 0836 Date Guevara Casanova MD CC: Tanvi Hawthorne; Leticia Pugh DO Date Dictated: 02/02/14 1143 Date Transcribed: 02/05/14 0836 Field Gauger: Signed 02-Feb-2014 Chest PA and Lateral Result: Comments: See Note; NOTES: [facility] Imaging Services [address] [place] [address] Radiology Report MR#: [id number] Acct: [id number] Name: RADHA RAMOS Rep #: [id number] : 1955 F 58 From: Martell Price MD PCP: Leticia Pugh DO Status: REG CLI Study: Chest PA and Lateral Date of Exam: 02/02/14 Exam# [id number] Ordering Dr: Tanvi Hawthorne STUDY: X-RAY CHEST REASON FOR EXAM: Female, 58 years old. Chest pain. Mitral valve prolapse. TECHNIQUE: PA and lateral views of the chest. COMPARISON: October 06, 2007. FI NDINGS: The lungs are clear and expanded. There is no demonstrated pleural abnormality. Normal size heart. Normal mediastinum and shemar. Normal visualized pulmonary arteries. Normal visualized aort ic arch and descending thoracic aorta. Normal visualized thoracic spine. Normal visualized ribs, clavicles, and shoulders. There is no demonstrated abnormality of the visualized soft tissue struc tures of the upper abdomen. IMPRESSION: Normal x-ray examination of the chest. Electronically Signed: Martell Price MD at 14:11 EST Tel , Service support [phone], RAD/Chest PA and Lateral IMPRESSION: Normal x-ray examination of the chest. Electronically Signed: Martell Price MD 20/01/28 at 14:11 EST , Service support [phone], CC: Tanvi Hawthorne; Leticia Pugh DO Field Gauger: Signed 29-Jan-2014 ELECTROCARDIOGRAM, COMPLETE (ECG) (30219) Comments: sinus rhythm, similar to 11-19 Result: [MEASUREMENTS ANALYSIS] Date of Test: 01/29/2014 13:47:19; Heart Rate: 86; CO Interval: 136; QRS: 100; QT Interval: 368; Corrected QT Interval (QTc): 413; P Wave Holly: 66; QRS Wave Holly: 41; T Wave Holly : -1; Blood Pressure: 132/74 [ECG DIAGNOSTIC STATEMENTS] Date of Test: 01/29/2014 13:47:19; Summary: Sinus Rhythm WITHIN NORMAL LIMITS 02-Aug-2013 Bilat Scrn Digital & CAD Result: Comments: See Note; NOTES: [facility] Imaging Services [address] [place] [address] [place] [address] Breast Imaging Report MR#: [id number] Acct: [id number] Name: RADHA RAMOS Rep #: [id number] : 1955 F 57 From: Ross Saxena MD PCP: Leticia Pugh DO Status: REG CLI Exam# [id number] Ordering Dr: Zhane Angeles MD MAMMOGRAPHY - BILATERAL SCREENING REASON FOR E XAM: Female, 57 years old. Routine annual screening examination. PERTINENT HISTORY: Non-contributory. TECHNIQUE: Digital examination. Mediolateral oblique (MLO) and craniocaudad (CC) views of both breasts were obtained. CAD: CAD was performed on this study. COMPARISON: Comparison is made with prior study dated July 29, 2012 and July 28, 2011. FINDINGS: T he breast composition is heterogeneously dense, ranging from 51% to 75% of the total breast volume, which may obscure small masses. There are no dominant masses or suspicious calcifications. No oth er significant abnormalities are identified. There has been no significant change since the prior study. IMPRESSION: Stable bilateral screening mammogram. Yearly follow-up recommended. (A) ASSESSMENT CATEGORY: BIRADS Category 2: Benign finding(s). A letter regarding these results will [facility] the [facility] days. Approximately 10% of breast cancers are not detected by mammography. A normal mammogram should not delay biopsy of a clinically suspicious abnormality. Electronically Signed: Thompson Saxena MD at 10:52 EDT Tel [phone], Service support [phone], CC: Zhane Angeles MD; Leticia Pugh DO Field Gauger: Signed Immunization Name Dates Details Influenza (3 years and up) on: 2017 Social History Name Dates Details Caffeine Use Comments: 1-2 qd Status: Active Exercise History Comments: Inactive Status: Active Living Situation Comments: Lives with spouse Status: Active No Drug Use Status: Active Non Drinker/No Alcohol Use Status: Active Non Smoker/No Tobacco Use Status: Active Number of Adult (age 18 or over) Dependents Comments: 2 Status: Active Pets/Animals Comments: Cat Status: Active Tobacco use: Never smoker. Status: Active Tobacco use: Never smoker. Status: Inactive Tobacco use: Never smoker. Status: Inactive Tobacco use: Never smoker. Comments: 12/17/10 Status: Inactive Tobacco use: Never smoker. Status: Inactive Smoking Status Name Dates Details Never smoker Vital Signs Date Test Result Details :51 Pulse 83 /min Comments: Pattern: Regular Respiration Rate 18 /min Comments: Pattern: Unlabored O2 SAT 98 % Comments: Room air BP Systolic 118 mm[Hg] Comments: Patient Position: Sitting; Cuff Location: Left Arm; Cuff Size: Large BP Diastolic 82 mm[Hg] Comments: Patient Position: Sitting; Cuff Location: Left Arm; Cuff Size: Large Weight 197.125 lb Height 64.5 in Body Mass Index Calculated 33.31 kg/m2 Body Surface Area Calculated 1.96 m2 :56 Pulse 83 /min Comments: Pattern: Regular Respiration Rate 16 /min Comments: Pattern: Unlabored O2 SAT 98 % Comments: Room air Weight 192 lb Height 64.5 in Body Mass Index Calculated 32.45 kg/m2 Body Surface Area Calculated 1.93 m2 :06 Temperature 97.9 f Pulse 92 /min Comments: Pattern: Regular Respiration Rate 18 /min Comments: Pattern: Unlabored O2 SAT 98 % Comments: Room air BP Systolic 150 mm[Hg] Comments: Patient Position: Sitting; Cuff Location: Left Arm; Cuff Size: Standard BP Diastolic 80 mm[Hg] Comments: Patient Position: Sitting; Cuff Location: Left Arm; Cuff Size: Standard Weight 194 lb Height 64.5 in Body Mass Index Calculated 32.79 kg/m2 Body Surface Area Calculated 1.94 m2 :57 Temperature 97.7 f Pulse 103 /min Comments: Pattern: Regular Respiration Rate 18 /min Comments: Pattern: Unlabored O2 SAT 99 % Comments: Room air BP Systolic 122 mm[Hg] Comments: Patient Position: Sitting; Cuff Location: Left Arm; Cuff Size: Standard BP Diastolic 76 mm[Hg] Comments: Patient Position: Sitting; Cuff Location: Left Arm; Cuff Size: Standard Weight 188 lb Height 64.5 in Body Mass Index Calculated 31.77 kg/m2 Body Surface Area Calculated 1.92 m2 :12 Temperature 97.8 f Comments: Method: Temporal Pulse 91 /min Comments: Pattern: Regular Respiration Rate 16 /min Comments: Pattern: Unlabored O2 SAT 98 % Comments: Room air BP Systolic 130 mm[Hg] Comments: Patient Position: Sitting; Cuff Location: Left Arm; Cuff Size: Standard BP Diastolic 70 mm[Hg] Comments: Patient Position: Sitting; Cuff Location: Left Arm; Cuff Size: Standard Weight 188 lb Height 64.5 in Body Mass Index Calculated 31.77 kg/m2 Body Surface Area Calculated 1.92 m2 :00 Pulse 93 /min Comments: Pattern: Regular Respiration Rate 18 /min Comments: Pattern: Unlabored O2 SAT 99 % Comments: Room air BP Systolic 120 mm[Hg] Comments: Patient Position: Sitting; Cuff Location: Left Arm; Cuff Size: Large BP Diastolic 80 mm[Hg] Comments: Patient Position: Sitting; Cuff Location: Left Arm; Cuff Size: Large Weight 186.375 lb Height 64.5 in Body Mass Index Calculated 31.5 kg/m2 Body Surface Area Calculated 1.91 m2 :35 Temperature 98.4 f Pulse 103 /min Comments: Pattern: Regular Respiration Rate 18 /min Comments: Pattern: Unlabored O2 SAT 98 % Comments: Room air BP Systolic 124 mm[Hg] Comments: Patient Position: Sitting; Cuff Location: Left Arm; Cuff Size: Standard BP Diastolic 72 mm[Hg] Comments: Patient Position: Sitting; Cuff Location: Left Arm; Cuff Size: Standard Weight 190 lb Height 64.5 in Body Mass Index Calculated 32.11 kg/m2 Body Surface Area Calculated 1.92 m2 :15 Temperature 98.2 f Pulse 98 /min Comments: Pattern: Regular Respiration Rate 18 /min Comments: Pattern: Unlabored O2 SAT 98 % Comments: Room air BP Systolic 118 mm[Hg] Comments: Patient Position: Sitting; Cuff Location: Left Arm; Cuff Size: Standard BP Diastolic 76 mm[Hg] Comments: Patient Position: Sitting; Cuff Location: Left Arm; Cuff Size: Standard Weight 190 lb Height 64.5 in Body Mass Index Calculated 32.11 kg/m2 Body Surface Area Calculated 1.92 m2 :32 Pulse 70 /min Comments: Pattern: Regular Respiration Rate 16 /min Comments: Pattern: Unlabored O2 SAT 98 % Comments: Room air BP Systolic 120 mm[Hg] Comments: Patient Position: Sitting; Cuff Location: Left Arm; Cuff Size: Standard BP Diastolic 70 mm[Hg] Comments: Patient Position: Sitting; Cuff Location: Left Arm; Cuff Size: Standard Weight 189.5 lb Height 64.5 in Body Mass Index Calculated 32.02 kg/m2 Body Surface Area Calculated 1.92 m2 :02 Pulse 72 /min Comments: Pattern: Regular Respiration Rate 16 /min Comments: Pattern: Unlabored O2 SAT 98 % Comments: Room air BP Systolic 120 mm[Hg] Comments: Patient Position: Sitting; Cuff Location: Left Arm; Cuff Size: Standard BP Diastolic 70 mm[Hg] Comments: Patient Position: Sitting; Cuff Location: Left Arm; Cuff Size: Standard Weight 190.5 lb Height 64.5 in Body Mass Index Calculated 32.19 kg/m2 Body Surface Area Calculated 1.93 m2 :29 Pulse 88 /min Comments: Pattern: Regular Respiration Rate 18 /min Comments: Pattern: Unlabored O2 SAT 99 % Comments: Room air BP Systolic 122 mm[Hg] Comments: Patient Position: Sitting; Cuff Location: Left Arm; Cuff Size: Standard BP Diastolic 82 mm[Hg] Comments: Patient Position: Sitting; Cuff Location: Left Arm; Cuff Size: Standard Weight 190.5 lb Height 64.5 in Body Mass Index Calculated 32.19 kg/m2 Body Surface Area Calculated 1.93 m2 :54 Pulse 87 /min Comments: Pattern: Regular Respiration Rate 18 /min Comments: Pattern: Unlabored O2 SAT 98 % Comments: Room air BP Systolic 128 mm[Hg] Comments: Patient Position: Sitting; Cuff Location: Left Arm; Cuff Size: Standard BP Diastolic 60 mm[Hg] Comments: Patient Position: Sitting; Cuff Location: Left Arm; Cuff Size: Standard Weight 190.5 lb Height 64.5 in Body Mass Index Calculated 32.19 kg/m2 Body Surface Area Calculated 1.93 m2 :43 Pulse 106 /min Comments: Pattern: Regular Respiration Rate 18 /min Comments: Pattern: Unlabored O2 SAT 97 % Comments: Room air BP Systolic 158 mm[Hg] Comments: Patient Position: Sitting; Cuff Location: Left Arm; Cuff Size: Large BP Diastolic 82 mm[Hg] Comments: Patient Position: Sitting; Cuff Location: Left Arm; Cuff Size: Large Weight 195.25 lb Height 64.5 in Body Mass Index Calculated 33 kg/m2 Body Surface Area Calculated 1.95 m2 :46 Temperature 97.8 f Comments: Method: Temporal Pulse 60 /min Comments: Pattern: Regular Respiration Rate 16 /min Comments: Pattern: Unlabored O2 SAT 98 % Comments: Room air BP Systolic 136 mm[Hg] Comments: Patient Position: Sitting; Cuff Location: Left Arm; Cuff Size: Standard BP Diastolic 72 mm[Hg] Comments: Patient Position: Sitting; Cuff Location: Left Arm; Cuff Size: Standard Weight 195.25 lb Height 64.5 in Body Mass Index Calculated 33 kg/m2 Body Surface Area Calculated 1.95 m2 :02 Pulse 82 /min Comments: Pattern: Regular Respiration Rate 18 /min Comments: Pattern: Unlabored O2 SAT 98 % Comments: Room air BP Systolic 138 mm[Hg] Comments: Patient Position: Sitting; Cuff Location: Left Arm; Cuff Size: Large BP Diastolic 82 mm[Hg] Comments: Patient Position: Sitting; Cuff Location: Left Arm; Cuff Size: Large Weight 195.25 lb Height 64.5 in Body Mass Index Calculated 33 kg/m2 Body Surface Area Calculated 1.95 m2 :58 Pulse 95 /min Comments: Pattern: Regular Respiration Rate 18 /min Comments: Pattern: Unlabored O2 SAT 97 % Comments: Room air BP Systolic 122 mm[Hg] Comments: Patient Position: Sitting; Cuff Location: Left Arm; Cuff Size: Large BP Diastolic 80 mm[Hg] Comments: Patient Position: Sitting; Cuff Location: Left Arm; Cuff Size: Large Weight 195.25 lb Height 64.5 in Body Mass Index Calculated 33 kg/m2 Body Surface Area Calculated 1.95 m2 :24 Pulse 95 /min Comments: Pattern: Regular Respiration Rate 18 /min Comments: Pattern: Unlabored O2 SAT 98 % Comments: Room air BP Systolic 122 mm[Hg] Comments: Patient Position: Sitting; Cuff Location: Left Arm; Cuff Size: Large BP Diastolic 70 mm[Hg] Comments: Patient Position: Sitting; Cuff Location: Left Arm; Cuff Size: Large Weight 195.25 lb Height 64.5 in Body Mass Index Calculated 33 kg/m2 Body Surface Area Calculated 1.95 m2 :42 Temperature 98.2 f Comments: Method: Temporal Pulse 90 /min Comments: Pattern: Regular Respiration Rate 15 /min Comments: Pattern: Unlabored O2 SAT 99 % Comments: Room air BP Systolic 124 mm[Hg] Comments: Patient Position: Sitting; Cuff Location: Left Arm; Cuff Size: Standard BP Diastolic 82 mm[Hg] Comments: Patient Position: Sitting; Cuff Location: Left Arm; Cuff Size: Standard Weight 195.25 lb Height 64.5 in Body Mass Index Calculated 33 kg/m2 Body Surface Area Calculated 1.95 m2 :39 Pulse 91 /min Comments: Pattern: Regular Respiration Rate 18 /min Comments: Pattern: Unlabored O2 SAT 95 % Comments: Room air BP Systolic 122 mm[Hg] Comments: Patient Position: Sitting; Cuff Location: Left Arm; Cuff Size: Large BP Diastolic 82 mm[Hg] Comments: Patient Position: Sitting; Cuff Location: Left Arm; Cuff Size: Large Weight 195.25 lb Height 64.5 in Body Mass Index Calculated 33 kg/m2 Body Surface Area Calculated 1.95 m2 :46 Temperature 97.6 f Comments: Method: Temporal Pulse 90 /min Comments: Pattern: Regular Respiration Rate 18 /min Comments: Pattern: Unlabored O2 SAT 97 % Comments: Room air BP Systolic 140 mm[Hg] Comments: Patient Position: Sitting; Cuff Location: Left Arm; Cuff Size: Large BP Diastolic 80 mm[Hg] Comments: Patient Position: Sitting; Cuff Location: Left Arm; Cuff Size: Large Weight 189 lb Height 64.5 in Body Mass Index Calculated 31.94 kg/m2 Body Surface Area Calculated 1.92 m2 :48 Temperature 97.4 f Pulse 84 /min Comments: Pattern: Regular Respiration Rate 17 /min Comments: Pattern: Unlabored O2 SAT 99 % Comments: Room air BP Systolic 126 mm[Hg] Comments: Patient Position: Sitting; Cuff Location: Left Arm; Cuff Size: Standard BP Diastolic 82 mm[Hg] Comments: Patient Position: Sitting; Cuff Location: Left Arm; Cuff Size: Standard Weight 192 lb Height 64.5 in Body Mass Index Calculated 32.45 kg/m2 Body Surface Area Calculated 1.93 m2 :54 Comments: weight checked wearing the boot/cam walker Temperature 98 f Comments: Method: Temporal Pulse 72 /min Comments: Pattern: Regular Respiration Rate 16 /min Comments: Pattern: Unlabored BP Systolic 122 mm[Hg] Comments: Patient Position: Sitting; Cuff Location: Left Arm; Cuff Size: Standard BP Diastolic 66 mm[Hg] Comments: Patient Position: Sitting; Cuff Location: Left Arm; Cuff Size: Standard Weight 192 lb Height 64.5 in Body Mass Index Calculated 32.45 kg/m2 Body Surface Area Calculated 1.93 m2 :30 Temperature 97.8 f Pulse 82 /min Comments: Pattern: Regular Respiration Rate 12 /min Comments: Pattern: Unlabored O2 SAT 98 % Comments: Room air BP Systolic 122 mm[Hg] Comments: Patient Position: Sitting; Cuff Location: Left Arm; Cuff Size: Standard BP Diastolic 84 mm[Hg] Comments: Patient Position: Sitting; Cuff Location: Left Arm; Cuff Size: Standard Weight 192.375 lb Height 64.5 in Body Mass Index Calculated 32.51 kg/m2 Body Surface Area Calculated 1.94 m2 :08 Temperature 98.4 f Comments: Method: Oral Pulse 72 /min Comments: Pattern: Regular Respiration Rate 18 /min Comments: Pattern: Unlabored BP Systolic 122 mm[Hg] Comments: Patient Position: Sitting; Cuff Location: Left Arm; Cuff Size: Standard BP Diastolic 78 mm[Hg] Comments: Patient Position: Sitting; Cuff Location: Left Arm; Cuff Size: Standard Weight 192.375 lb Height 64.5 in Body Mass Index Calculated 32.51 kg/m2 Body Surface Area Calculated 1.94 m2 :08 Pulse 100 /min Comments: Pattern: Regular Respiration Rate 18 /min Comments: Pattern: Unlabored O2 SAT 96 % Comments: Room air BP Systolic 138 mm[Hg] Comments: Patient Position: Sitting; Cuff Location: Left Arm; Cuff Size: Standard BP Diastolic 90 mm[Hg] Comments: Patient Position: Sitting; Cuff Location: Left Arm; Cuff Size: Standard Weight 190.375 lb Height 64.5 in Body Mass Index Calculated 32.17 kg/m2 Body Surface Area Calculated 1.93 m2 :20 Temperature 97.3 f Comments: Method: Temporal Pulse 93 /min Comments: Pattern: Regular Respiration Rate 16 /min Comments: Pattern: Unlabored O2 SAT 98 % Comments: Room air BP Systolic 122 mm[Hg] Comments: Patient Position: Sitting; Cuff Location: Left Arm; Cuff Size: Standard BP Diastolic 74 mm[Hg] Comments: Patient Position: Sitting; Cuff Location: Left Arm; Cuff Size: Standard Weight 190.375 lb Height 64.5 in Body Mass Index Calculated 32.17 kg/m2 Body Surface Area Calculated 1.93 m2 :12 Temperature 98.7 f Pulse 95 /min Comments: Pattern: Regular Respiration Rate 16 /min Comments: Pattern: Unlabored O2 SAT 99 % Comments: Room air BP Systolic 128 mm[Hg] Comments: Patient Position: Sitting; Cuff Location: Left Arm; Cuff Size: Standard BP Diastolic 82 mm[Hg] Comments: Patient Position: Sitting; Cuff Location: Left Arm; Cuff Size: Standard Weight 187.375 lb Height 64.5 in Body Mass Index Calculated 31.67 kg/m2 Body Surface Area Calculated 1.91 m2 :43 Temperature 97.6 f Comments: Method: Oral Pulse 88 /min Comments: Pattern: Regular Respiration Rate 18 /min Comments: Pattern: Unlabored O2 SAT 98 % Comments: Room air BP Systolic 138 mm[Hg] Comments: Patient Position: Sitting; Cuff Location: Left Arm; Cuff Size: Standard BP Diastolic 82 mm[Hg] Comments: Patient Position: Sitting; Cuff Location: Left Arm; Cuff Size: Standard Weight 190.125 lb Height 64.5 in Body Mass Index Calculated 32.13 kg/m2 Body Surface Area Calculated 1.93 m2 :42 Temperature 98.7 f Comments: Method: Temporal Pulse 72 /min Comments: Pattern: Regular Respiration Rate 16 /min Comments: Pattern: Unlabored O2 SAT 99 % Comments: Room air BP Systolic 132 mm[Hg] Comments: Patient Position: Sitting; Cuff Location: Left Arm; Cuff Size: Standard BP Diastolic 74 mm[Hg] Comments: Patient Position: Sitting; Cuff Location: Left Arm; Cuff Size: Standard Weight 192.4375 lb Height 64.5 in Body Mass Index Calculated 32.52 kg/m2 Body Surface Area Calculated 1.94 m2 :12 Temperature 95.2 f Comments: Method: Oral Pulse 80 /min Comments: Pattern: Regular Respiration Rate 18 /min Comments: Pattern: Unlabored O2 SAT 98 % Comments: Room air BP Systolic 122 mm[Hg] Comments: Patient Position: Sitting; Cuff Location: Left Arm; Cuff Size: Standard BP Diastolic 78 mm[Hg] Comments: Patient Position: Sitting; Cuff Location: Left Arm; Cuff Size: Standard Weight 192.4375 lb Height 64.5 in Body Mass Index Calculated 32.52 kg/m2 Body Surface Area Calculated 1.94 m2 [id number] Temperature 98.2 f Comments: Method: Oral Pulse 106 /min Comments: Pattern: Regular Respiration Rate 15 /min O2 SAT 97 % Comments: Room air BP Systolic 126 mm[Hg] Comments: Patient Position: Sitting; Cuff Location: Left Arm; Cuff Size: Standard BP Diastolic 78 mm[Hg] Comments: Patient Position: Sitting; Cuff Location: Left Arm; Cuff Size: Standard Weight 189.4375 lb Height 64.5 in Body Mass Index Calculated 32.01 kg/m2 Body Surface Area Calculated 1.92 m2 :51 Pulse 93 /min Comments: Pattern: Regular Respiration Rate 16 /min Comments: Pattern: Unlabored O2 SAT 98 % Comments: Room air BP Systolic 120 mm[Hg] Comments: Patient Position: Sitting; Cuff Location: Left Arm; Cuff Size: Standard BP Diastolic 78 mm[Hg] Comments: Patient Position: Sitting; Cuff Location: Left Arm; Cuff Size: Standard Weight 189.4375 lb Height 64.5 in Body Mass Index Calculated 32.01 kg/m2 Body Surface Area Calculated 1.92 m2 :00 Temperature 96.9 f Comments: Method: Oral Pulse 82 /min Comments: Pattern: Regular Respiration Rate 20 /min Comments: Pattern: Unlabored O2 SAT 98 % Comments: Room air BP Systolic 128 mm[Hg] Comments: Patient Position: Sitting; Cuff Location: Left Arm; Cuff Size: Large BP Diastolic 82 mm[Hg] Comments: Patient Position: Sitting; Cuff Location: Left Arm; Cuff Size: Large Weight 189.4375 lb Height 64.5 in Body Mass Index Calculated 32.01 kg/m2 Body Surface Area Calculated 1.92 m2 :17 Pulse 89 /min Comments: Pattern: Regular Respiration Rate 20 /min Comments: Pattern: Unlabored O2 SAT 98 % Comments: Room air BP Systolic 120 mm[Hg] Comments: Patient Position: Sitting; Cuff Location: Left Arm; Cuff Size: Standard BP Diastolic 82 mm[Hg] Comments: Patient Position: Sitting; Cuff Location: Left Arm; Cuff Size: Standard Weight 189.0625 lb Height 64.5 in Body Mass Index Calculated 31.95 kg/m2 Body Surface Area Calculated 1.92 m2 :28 Pulse 78 /min Comments: Pattern: Regular Respiration Rate 16 /min Comments: Pattern: Unlabored BP Systolic 126 mm[Hg] Comments: Patient Position: Sitting; Cuff Location: Left Arm; Cuff Size: Standard BP Diastolic 78 mm[Hg] Comments: Patient Position: Sitting; Cuff Location: Left Arm; Cuff Size: Standard Weight 191.4375 lb Height 64.5 in Body Mass Index Calculated 32.35 kg/m2 Body Surface Area Calculated 1.93 m2 :34 Pulse 60 /min Comments: Pattern: Regular Respiration Rate 20 /min Comments: Pattern: Unlabored BP Systolic 110 mm[Hg] Comments: Patient Position: Sitting; Cuff Location: Left Arm; Cuff Size: Large BP Diastolic 70 mm[Hg] Comments: Patient Position: Sitting; Cuff Location: Left Arm; Cuff Size: Large Weight 190.4375 lb Height 64.5 in Body Mass Index Calculated 32.18 kg/m2 Body Surface Area Calculated 1.93 m2 :05 Pulse 60 /min Comments: Pattern: Regular Respiration Rate 20 /min Comments: Pattern: Unlabored BP Systolic 120 mm[Hg] Comments: Patient Position: Sitting; Cuff Location: Left Arm; Cuff Size: Standard BP Diastolic 80 mm[Hg] Comments: Patient Position: Sitting; Cuff Location: Left Arm; Cuff Size: Standard Weight 188.25 lb Height 64.5 in Body Mass Index Calculated 31.81 kg/m2 Body Surface Area Calculated 1.92 m2 :04 Temperature 97.4 f Comments: Method: Oral Pulse 80 /min Comments: Pattern: Regular Respiration Rate 20 /min Comments: Pattern: Unlabored BP Systolic 120 mm[Hg] Comments: Patient Position: Sitting; Cuff Location: Left Arm; Cuff Size: Large BP Diastolic 80 mm[Hg] Comments: Patient Position: Sitting; Cuff Location: Left Arm; Cuff Size: Large Weight 187.25 lb Height 64.5 in Body Mass Index Calculated 31.64 kg/m2 Body Surface Area Calculated 1.91 m2 :43 Pulse 64 /min Comments: Pattern: Regular Respiration Rate 18 /min Comments: Pattern: Unlabored BP Systolic 122 mm[Hg] Comments: Patient Position: Sitting; Cuff Location: Left Arm; Cuff Size: Large BP Diastolic 62 mm[Hg] Comments: Patient Position: Sitting; Cuff Location: Left Arm; Cuff Size: Large Weight 184.1875 lb Height 64.5 in Body Mass Index Calculated 31.13 kg/m2 Body Surface Area Calculated 1.9 m2 :01 Pulse 68 /min Comments: Pattern: Regular Respiration Rate 20 /min Comments: Pattern: Unlabored BP Systolic 128 mm[Hg] Comments: Patient Position: Sitting; Cuff Location: Left Arm; Cuff Size: Large BP Diastolic 78 mm[Hg] Comments: Patient Position: Sitting; Cuff Location: Left Arm; Cuff Size: Large Weight 182.125 lb Height 64.5 in Body Mass Index Calculated 30.78 kg/m2 Body Surface Area Calculated 1.89 m2 :04 Pulse 68 /min Comments: Pattern: Regular Respiration Rate 20 /min Comments: Pattern: Unlabored BP Systolic 128 mm[Hg] Comments: Patient Position: Sitting; Cuff Location: Left Arm; Cuff Size: Large BP Diastolic 82 mm[Hg] Comments: Patient Position: Sitting; Cuff Location: Left Arm; Cuff Size: Large Weight 183.0625 lb Height 64.5 in Body Mass Index Calculated 30.94 kg/m2 Body Surface Area Calculated 1.89 m2 :04 Temperature 97.1 f Comments: Method: Oral Pulse 92 /min Comments: Pattern: Regular Respiration Rate 16 /min O2 SAT 98 % Comments: Room air BP Systolic 118 mm[Hg] Comments: Patient Position: Sitting; Cuff Location: Left Arm; Cuff Size: Standard BP Diastolic 80 mm[Hg] Comments: Patient Position: Sitting; Cuff Location: Left Arm; Cuff Size: Standard Weight 194.375 lb Height 64.5 in Body Mass Index Calculated 32.85 kg/m2 Body Surface Area Calculated 1.94 m2 :14 Temperature 97.9 f Comments: Method: Oral Pulse 84 /min Comments: Pattern: Regular O2 SAT 99 % Comments: Room air BP Systolic 116 mm[Hg] Comments: Patient Position: Sitting; Cuff Location: Left Arm; Cuff Size: Standard BP Diastolic 74 mm[Hg] Comments: Patient Position: Sitting; Cuff Location: Left Arm; Cuff Size: Standard Weight 194.375 lb Height 64.5 in Body Mass Index Calculated 32.85 kg/m2 Body Surface Area Calculated 1.94 m2 :50 Temperature 96.7 f Comments: Method: Oral Pulse 94 /min Comments: Pattern: Regular Respiration Rate 15 /min Comments: Pattern: Unlabored O2 SAT 98 % Comments: Room air BP Systolic 122 mm[Hg] Comments: Patient Position: Sitting; Cuff Location: Left Arm; Cuff Size: Standard BP Diastolic 80 mm[Hg] Comments: Patient Position: Sitting; Cuff Location: Left Arm; Cuff Size: Standard Weight 194.375 lb Height 64.5 in Body Mass Index Calculated 32.85 kg/m2 Body Surface Area Calculated 1.94 m2 :58 Temperature 96.8 f Comments: Method: Oral Pulse 72 /min Comments: Pattern: Regular Respiration Rate 16 /min Comments: Pattern: Unlabored BP Systolic 118 mm[Hg] Comments: Patient Position: Sitting; Cuff Location: Left Arm; Cuff Size: Standard BP Diastolic 76 mm[Hg] Comments: Patient Position: Sitting; Cuff Location: Left Arm; Cuff Size: Standard Weight 194.375 lb Height 64.5 in Body Mass Index Calculated 32.85 kg/m2 Body Surface Area Calculated 1.94 m2 :27 Temperature 97.5 f Comments: Method: Oral Pulse 118 /min Comments: Pattern: Regular Respiration Rate 17 /min BP Systolic 124 mm[Hg] Comments: Patient Position: Sitting; Cuff Location: Left Arm; Cuff Size: Standard BP Diastolic 80 mm[Hg] Comments: Patient Position: Sitting; Cuff Location: Left Arm; Cuff Size: Standard Weight 194.375 lb Height 64.5 in Body Mass Index Calculated 32.85 kg/m2 Body Surface Area Calculated 1.94 m2 :32 Temperature 96.4 f Comments: Method: Oral Pulse 68 /min Comments: Pattern: Regular Respiration Rate 20 /min Comments: Pattern: Unlabored BP Systolic 128 mm[Hg] Comments: Patient Position: Sitting; Cuff Location: Left Arm; Cuff Size: Large BP Diastolic 62 mm[Hg] Comments: Patient Position: Sitting; Cuff Location: Left Arm; Cuff Size: Large Weight 194.375 lb Height 64.5 in Body Mass Index Calculated 32.85 kg/m2 Body Surface Area Calculated 1.94 m2 :01 Temperature 98.2 f Comments: Method: Oral Pulse 68 /min Comments: Pattern: Regular Respiration Rate 18 /min Comments: Pattern: Unlabored BP Systolic 122 mm[Hg] Comments: Patient Position: Sitting; Cuff Location: Left Arm; Cuff Size: Standard BP Diastolic 78 mm[Hg] Comments: Patient Position: Sitting; Cuff Location: Left Arm; Cuff Size: Standard Weight 193.3125 lb Height 64.5 in Body Mass Index Calculated 32.67 kg/m2 Body Surface Area Calculated 1.94 m2 :09 Temperature 97.6 f Comments: Method: Oral Pulse 68 /min Comments: Pattern: Regular Respiration Rate 20 /min Comments: Pattern: Unlabored BP Systolic 128 mm[Hg] Comments: Patient Position: Sitting; Cuff Location: Left Arm; Cuff Size: Large BP Diastolic 70 mm[Hg] Comments: Patient Position: Sitting; Cuff Location: Left Arm; Cuff Size: Large Weight 191.25 lb Height 64.5 in Body Mass Index Calculated 32.32 kg/m2 Body Surface Area Calculated 1.93 m2 :24 Pulse 68 /min Comments: Pattern: Regular Respiration Rate 20 /min Comments: Pattern: Unlabored BP Systolic 122 mm[Hg] Comments: Patient Position: Sitting; Cuff Location: Left Arm; Cuff Size: Large BP Diastolic 80 mm[Hg] Comments: Patient Position: Sitting; Cuff Location: Left Arm; Cuff Size: Large Weight 194 lb Height 64.5 in Body Mass Index Calculated 32.79 kg/m2 Body Surface Area Calculated 1.94 m2 :00 Pulse 68 /min Comments: Pattern: Regular Respiration Rate 20 /min Comments: Pattern: Unlabored BP Systolic 128 mm[Hg] Comments: Patient Position: Sitting; Cuff Location: Left Arm; Cuff Size: Large BP Diastolic 70 mm[Hg] Comments: Patient Position: Sitting; Cuff Location: Left Arm; Cuff Size: Large Weight 194 lb Height 64.5 in Body Mass Index Calculated 32.79 kg/m2 Body Surface Area Calculated 1.94 m2 :09 Pulse 64 /min Comments: Pattern: Regular Respiration Rate 18 /min Comments: Pattern: Unlabored BP Systolic 122 mm[Hg] Comments: Patient Position: Sitting; Cuff Location: Left Arm; Cuff Size: Large BP Diastolic 68 mm[Hg] Comments: Patient Position: Sitting; Cuff Location: Left Arm; Cuff Size: Large Weight 188.375 lb Height 64.5 in Body Mass Index Calculated 31.83 kg/m2 Body Surface Area Calculated 1.92 m2 :40 Temperature 96.4 f Comments: Method: Oral Pulse 64 /min Comments: Pattern: Regular Respiration Rate 20 /min Comments: Pattern: Unlabored BP Systolic 122 mm[Hg] Comments: Patient Position: Sitting; Cuff Location: Left Arm; Cuff Size: Large BP Diastolic 76 mm[Hg] Comments: Patient Position: Sitting; Cuff Location: Left Arm; Cuff Size: Large Weight 188.125 lb Height 64.5 in Body Mass Index Calculated 31.79 kg/m2 Body Surface Area Calculated 1.92 m2 :54 Temperature 98.1 f Comments: Method: Oral Pulse 70 /min Comments: Pattern: Regular Respiration Rate 18 /min Comments: Pattern: Unlabored BP Systolic 124 mm[Hg] Comments: Patient Position: Sitting; Cuff Location: Left Arm; Cuff Size: Standard BP Diastolic 82 mm[Hg] Comments: Patient Position: Sitting; Cuff Location: Left Arm; Cuff Size: Standard :18 Pulse 80 /min Comments: Pattern: Regular Respiration Rate 20 /min Comments: Pattern: Unlabored BP Systolic 122 mm[Hg] Comments: Patient Position: Sitting; Cuff Location: Left Arm; Cuff Size: Large BP Diastolic 84 mm[Hg] Comments: Patient Position: Sitting; Cuff Location: Left Arm; Cuff Size: Large Weight 186 lb Height 64.5 in Body Mass Index Calculated 31.43 kg/m2 Body Surface Area Calculated 1.91 m2 Head Circumference 0.00 cm :58 Temperature 98.1 f Comments: Method: Oral Pulse 84 /min Comments: Pattern: Regular Respiration Rate 16 /min Comments: Pattern: Unlabored BP Systolic 132 mm[Hg] Comments: Patient Position: Sitting; Cuff Location: Left Arm; Cuff Size: Standard BP Diastolic 86 mm[Hg] Comments: Patient Position: Sitting; Cuff Location: Left Arm; Cuff Size: Standard Weight 0 lb Height 0 in Head Circumference 0.00 cm :52 Temperature 97 f Comments: Method: Oral Pulse 92 /min Comments: Pattern: Regular Respiration Rate 16 /min Comments: Pattern: Unlabored BP Systolic 130 mm[Hg] Comments: Patient Position: Sitting; Cuff Location: Left Arm; Cuff Size: Standard BP Diastolic 86 mm[Hg] Comments: Patient Position: Sitting; Cuff Location: Left Arm; Cuff Size: Standard Weight 0 lb Height 0 in Head Circumference 0.00 cm :23 Pulse 64 /min Comments: Pattern: Regular Respiration Rate 20 /min Comments: Pattern: Unlabored BP Systolic 120 mm[Hg] Comments: Patient Position: Sitting; Cuff Location: Left Arm; Cuff Size: Large BP Diastolic 78 mm[Hg] Comments: Patient Position: Sitting; Cuff Location: Left Arm; Cuff Size: Large Weight 190.5 lb Height 64.5 in Body Mass Index Calculated 32.19 kg/m2 Body Surface Area Calculated 1.93 m2 Head Circumference 0.00 cm :01 Pulse 64 /min Comments: Pattern: Regular Respiration Rate 20 /min Comments: Pattern: Unlabored BP Systolic 120 mm[Hg] Comments: Patient Position: Sitting; Cuff Location: Left Arm; Cuff Size: Standard BP Diastolic 78 mm[Hg] Comments: Patient Position: Sitting; Cuff Location: Left Arm; Cuff Size: Standard Weight 186.125 lb Height 64.5 in Body Mass Index Calculated 31.45 kg/m2 Body Surface Area Calculated 1.91 m2 Head Circumference 0.00 cm :20 Temperature 98.1 f Comments: Method: Oral Pulse 80 /min Comments: Pattern: Regular Respiration Rate 18 /min Comments: Pattern: Unlabored BP Systolic 122 mm[Hg] Comments: Patient Position: Sitting; Cuff Location: Left Arm; Cuff Size: Standard BP Diastolic 78 mm[Hg] Comments: Patient Position: Sitting; Cuff Location: Left Arm; Cuff Size: Standard Weight 186.125 lb Height 64.5 in Body Mass Index Calculated 31.45 kg/m2 Body Surface Area Calculated 1.91 m2 Head Circumference 0.00 cm :58 Temperature 97.5 f Comments: Method: Oral Pulse 76 /min Comments: Pattern: Regular Respiration Rate 18 /min Comments: Pattern: Unlabored BP Systolic 120 mm[Hg] Comments: Patient Position: Sitting; Cuff Location: Left Arm; Cuff Size: Standard BP Diastolic 70 mm[Hg] Comments: Patient Position: Sitting; Cuff Location: Left Arm; Cuff Size: Standard Weight 184 lb Height 0 in Head Circumference 0.00 cm Results Date Description Value Details :54 BNP,B-Type NATRIURETIC PEPTIDE Comments: [facility] [address] [place], [place], [id number] B-TYPE CAMILO PEP 38.2 pg/mL (Normal) Range: 0-100 :54 Troponin-I Comments: 'TROP' Serial specimen #1, #2, #3, or #4: [facility] [id number] [place], [place], [address] TROPONIN-I < 0.015 ng/mL (Normal) Comments: TROPONIN-I EXPECTED VALUES <0.045 Negative 0.045 - 0.590 Consistent with Cardiac Damage > OR = 0.600 Critical Value Not every elevated troponin is indicative of IL. T hesevalues should be used with clinical judgement in examiningthe patient's clinical picture for diagnosis. To establisha diagnosis of IL versus myocardial injury, there must be ademonstrated rise and/ or fall in the troponin values, inaddition to ischemic symptoms, EKG changes, new regionalwall motion abnormality, and/or angiographical evidence. PLEASE NOTE: REFERENCE RANGES EDITED 17:58 Lipid Profile Comments: Order Date: 10/16/16Order Info: [id number] - *Hepatic Function PanelOrder Info: [id number] - *Lipid Profile CC PCPComments: 12 hours fasting, may have water.[facility] [address] [place], [place], [address] VLDL 35 mg/dL (Normal) Range: 5-40 LDL 110 mg/dL (Normal) Range: 0-130 HDL 35 mg/dL (Abnormal) Comments: The drugs N-Acetylcysteine and Metamizole may falselydepress this assay. Reference Range HDL <40 mg/dL Low HDL Cholesterol HDL >or= 60 mg/dL High HDL Cholesterol TRIG 176 mg/dL (Normal) Comments: The drugs N-Acetylcysteine and Metamizole may falselydepress this assay.Serum Triglycerides Reference Interval Normal <150 mg/dL Borderline high 150 - 199 mg/dL High 200 - 499 mg/dL Very High > or = 500 mg/dL CHOL 180 mg/dL (Normal) Comments: <200 mg/dL Desirable 200-240 mg/dL Borderline >240 mg/dL High Risk :58 Liver Profile Comments: Order Date: 10/16/16Order Info: [id number] - *Hepatic Function PanelOrder Info: [id number] - *Lipid Profile CC PCPComments: 12 hours fasting, may have water.[facility] [address] [place], [id number] D BILI 0.07 mg/dL (Normal) Range: 0.00-0.30 T BILI 0.70 mg/dL (Normal) Range: 0.20-1.00 ALT 47 U/L (Normal) Range: 13-56 Comments: Please note revised ALT reference range gpdowjqgr89/28/2018. ALK P 103 U/L (Normal) Range: 45-117 AST 30 U/L (Normal) Range: 15-37 GLOB 3.6 g/dL (Normal) Range: 2.2-4.2 ALB 4.0 g/dL (Normal) Range: 3.2-5.0 T PROT 7.6 g/dL (Normal) Range: 6.4-8.2 09-Tdt-192405:09 Free T3 Comments: [facility] [address] [place], [id number] FREE T3 3.2 pg/mL (Normal) Range: 2.18-3.98 19-Xfh-223668:09 T4 Free Direct Comments: [facility] [address] [place], [id number] T4 FREE DIRECT 0.84 ng/dL (Normal) Range: 0.76-1.46 69-Lzh-679047:09 Thyroid Stim Hormone (TSH) Comments: [facility] [address] [place], [id number] TSH 1.27 {uIU/mL} (Normal) Range: 0.358-3.74 56-Hfi-634859:04 VITAMIN B-12 (CYANOCOBALAMIN) Comments: PATIENT WAS FASTINGPERFORMED BY: [facility] [id number] [facility] [id number] ([id number]) Vitamin B12 1049 pg/mL (Normal) Range: 232-1245 96-Zak-514713:04 CALCIFEDIOL ([id number]) Comments: PATIENT WAS FASTINGPERFORMED BY: [facility] [id number] [facility] [id number] Vitamin D, 25-Hydroxy 17.4 ng/mL (Abnormal) Range: 30.0-100.0 Comments: Vitamin D deficiency has been defined by the [place] ofMedicine and an Endocrine Society practice guideline as alevel of serum 25-OH vitamin D less than 20 ng/mL (1,2).The Endocrine Society went on to further define vitamin Dinsufficiency as a level between 21 and 29 ng/mL (2).1. IOM ([place] of Medicine). 2010. Dietary reference intakes for calcium and D. [place]: The National Academies Press.2. Catie MF, Karon ACEVEDO, Myron KESSLER, et al. Evaluation, treatment, and prevention of vitamin D deficiency: an Endocrine Society clinical practice guideline. JCEM. 2010; 96(7):1911-30. 13-Cxr-168910:08 URINE SHANI CULTURE-IDENTIFICATN Comments: PATIENT NOT FASTINGPERFORMED BY: [employer] [facility] [id number] [facility] [id number] ([id number]) Antimicrobial MIHEAD (Normal) Comments: S = Susceptible; I = Intermediate; R = Resistant P = Positive; N = Negative MICS are expressed in micrograms per mL Antibiotic RSLT#1 RSLT#2 RS Susceptibility LT#3 RSLT#4Amoxicillin/Clavulanic Acid SAmpicillin SCefepime SCeftriaxone SCefuroxime SCephalothin SCiprofloxacin SErtapenem SGentamicin SImipenem SLevofloxacin SNitrofurantoin SPipera cillin STetracycline STobramycin STrimethoprim/Sulfa S Result 1 Escherichia coli Comments: 25,000-50,000 colony forming units per mL (Abnormal) Urine Final report Culture,Comprehensive (Abnormal) 96-Oap-[id number]:08 URINALYSIS ([id number]) Comments: PATIENT NOT FASTINGPERFORMED BY: [facility] [id number] [address] [facility] [id number] Information: SRC:UC Microscopic Examination MICNIP (Normal) Comments: Microscopic not indicated and not performed. Nitrite, Urine Negative (Normal) Urobilinogen,Semi-Qn 0.2 mg/dL (Normal) Range: 0.2-1.0 Bilirubin Negative (Normal) Occult Blood Negative (Normal) Ketones Negative (Normal) Glucose Negative (Normal) Protein Negative (Normal) WBC Esterase Negative (Normal) Appearance Clear (Normal) Urine-Color Yellow (Normal) pH 5.0 (Normal) Range: 5.0-7.5 Specific [place] 1.021 (Normal) Range: 1.005-1.030 :11 Basic Metabolic Profile (BMP) Comments: 'TROP' Serial specimen #1, #2, #3, or #4: 1[facility] [address] [place], [address] GAP 9 (Normal) Range: 5-15 CO2 24.0 mmol/L (Normal) Range: 21.0-32.0 CL 108 mmol/L (Abnormal) Range: 98-107 K 3.7 mmol/L (Normal) Range: 3.5-5.1 NA 141 mmol/L (Normal) Range: 136-145 CA 8.8 mg/dL (Normal) Range: 8.5-10.1 BUN/CRE 15.6 {RATIO} (Normal) Range: 10-20 Estimated CRCL 59.81 ml/min (Normal) EST GFR - AA 82 mL/min (Normal) Comments: GFR Calc EST GFR 68 mL/min (Normal) Comments: Non- GFR Calc CREAT,SERUM 0.90 mg/dL (Normal) Range: 0.55-1.02 Comments: The validity of the calculated GFR AND GFRAA in patients over70 years has not been determined. Clinical correlation isessential. BUN 14 mg/dL (Normal) Range: 7-18 GLU 124 mg/dL (Abnormal) Range: 70-110 Comments: Fasting Glucose result from 110 to <126 mg/dLsuggests IMPAIRED HOMEOSTASIS per A.D.A. criteria. :11 CBC W/Diff, Automated Comments: [facility] [address] [place], [address] Absolute Lymph 3.23 {X10_3/ul} (Normal) Range: 0.83-4.51 Absolute Neut 2.5 {X10_3/uL} (Normal) Range: 2.0-7.7 IM GRAN % 0.200 % (Normal) Range: 0.0-0.9 Comments: IG% - Immature Granulocytes (promyelocytes, myelocytes andmetamyelocytes) > 1% indicates that a LEFT SHIFT is Present. BASO% 0.2 % (Normal) Range: 0-1 EO% 1.9 % (Normal) Range: 0-5 MONO% 6.4 % (Normal) Range: 0-10 LY% 51.8 % (Abnormal) Range: 19-41 NEUT% 39.5 % (Abnormal) Range: 47-70 MPV 9.1 fL (Normal) Range: 6.2-12.0 PLT 223 K/mm3 (Normal) Range: 150-450 RDW SD 39.3 fL (Normal) Range: 35.1-43.9 RDW CV 12.7 % (Normal) Range: 11.6-14.6 MCHC 33.6 {g/gl} (Normal) Range: 32-36 MCH 28.6 pg (Normal) Range: 27.0-32.0 MCV 85.0 fL (Normal) Range: 81-99 HCT 43.1 % (Normal) Range: 37-47 HGB 14.5 g/dL (Normal) Range: 12.0-15.0 RBC 5.07 {M/mm3} (Normal) Range: 4.2-5.4 WBC 6.2 K/mm3 (Normal) Range: 4.4-11.0 14-Nov-20162:11 Troponin-I Comments: 'TROP' Serial specimen #1, #2, #3, or #4: [facility] [address] [facility] [place], [address] TROPONIN-I < 0.02 ng/mL (Normal) Comments: TROPONIN-I EXPECTED VALUES <0.05 NEGATIVE 0.06 - 0.59 AT RISK OF IL > OR = 0.60 SUGGEST IL 13-Nov-20160:00 ASP RADIOLOGY (FLUID) See Note (Normal) Comments: [facility] [address] [facility] [place], [address] Comments: Patient: RADHA RAMOS : 1955 (61/F) Acct Num: [id number] Phys: Jacinto VIDALES,James Unit Num: [id number] Loc: US Specimen: [id number] Received: 11/13/16 - 1243 Spec Type: ASP OUT TISSUES TISSUES: COMMENT The specimen is evaluated at the time of left thyroid FNA by Dr. Valencia. Immediate Evaluation = Adequate for evaluation. Correlation with clinical, rad iologic findings and appropriate follow up are necessary. CYTOLOGY GROSS Received is 0.2 ml of bloody fluid labeled with the patient's name, and designated left thyroid FNA. Six imprints an d five paps are made from the submitted fluid from four passes and the rest is added to CytoLyt for cell blockpreparation. Submitted for cytology study. / SVETLANA:brayden 11/13/16 TC:5 CPT: 98608, 05754, 881 72 CYTOLOGY STUDY Slides are reviewed. The specimen is adequate for evaluation. The specimen predominantly consists of small lymphocytes, a few clusters of benign follicular cells and Hurthle cells. DIAGNOSIS CYTOLOGY Left thyroid nodule, ultrasound-guided FNA (smears and cell block): Consistent with chronic lymphocytic thyroiditis. See cytology study and comment. SJ:brayden 11/16/16 HEADER OPERATION: Ultrasound-guided thyroid FNA PRE-OP DIAGNOSIS: Thyroid nodule TISSUE SUBMITTED: Thyroid nodule, left, FNA Signed ___ Braxton Valencia 11/16/16 <signature on file> :57 Hemoglobin A1c Comments: Order Date: 09/21/16Order Info: [id number] - *[facility] [address] [place], [place], [address] HGB A1C 6.3 % (Normal) Range: 4.2-6.3 96-Uyw-91159:57 Lipid Profile Comments: Order Date: 10/28/15Interface Comments: 12 hours fasting, may have water.[facility] [address] [place], [place], [address] VLDL 28 mg/dL (Normal) Range: 5-40 LDL 93 mg/dL (Normal) Range: 0-130 HDL 34 mg/dL (Abnormal) Comments: The drugs N-Acetylcysteine and Metamizole may falsely deressthis assay. Reference Range HDL <40 mg/dL Low HDL Cholesterol HDL >or= 60 mg/dL High HDL Cholesterol TRIG 142 mg/dL (Normal) Comments: The drugs N-Acetylcysteine and Metamizole may falsely deressthis assay.Serum Triglycerides Reference Interval Normal <150 mg/dL Borderline high 150 - 199 mg/dL High 200 - 499 mg/dL Very High > or = 500 mg/dL CHOL 155 mg/dL (Normal) Comments: <200 mg/dL Desirable 200-240 mg/dL Borderline >240 mg/dL High Risk :57 Liver Profile Comments: Order Date: 10/28/15Interface Comments: 12 hours fasting, may have water.[facility] [address] [place], [place], [id number] D BILI 0.11 mg/dL (Normal) Range: 0.00-0.30 T BILI 0.60 mg/dL (Normal) Range: 0.20-1.00 ALT 34 U/L (Normal) Range: 12-78 ALK P 95 U/L (Normal) Range: 45-117 AST 21 U/L (Normal) Range: 15-37 GLOB 3.2 g/dL (Normal) Range: 2.3-3.5 ALB 4.1 g/dL (Normal) Range: 3.4-5.0 T PROT 7.3 g/dL (Normal) Range: 6.4-8.2 41-Jvw-305825:14 CBC W/Diff, Automated Comments: Order Date: 09/21/16Order Info: [id number] - *CBC with DifferentialComments: Reason:[facility] [address] [place], [place], [id number] Absolute Lymph 2.69 {X10_3/ul} (Normal) Range: 0.83-4.51 Absolute Neut 3.8 {X10_3/uL} (Normal) Range: 2.0-7.7 IM GRAN % 0.100 % (Normal) Range: 0.0-0.9 Comments: IG% - Immature Granulocytes (promyelocytes, myelocytes andmetamyelocytes) > 1% indicates that a LEFT SHIFT is Present. BASO% 0.3 % (Normal) Range: 0-1 EO% 1.7 % (Normal) Range: 0-5 MONO% 8.1 % (Normal) Range: 0-10 LY% 37.0 % (Normal) Range: 19-41 NEUT% 52.8 % (Normal) Range: 47-70 MPV 9.6 fL (Normal) Range: 6.2-12.0 PLT 224 K/mm3 (Normal) Range: 150-450 RDW SD 40.2 fL (Normal) Range: 35.1-43.9 RDW CV 13.1 % (Normal) Range: 11.6-14.6 MCHC 34.5 {g/gl} (Normal) Range: 32-36 MCH 29.2 pg (Normal) Range: 27.0-32.0 MCV 84.7 fL (Normal) Range: 81-99 HCT 41.4 % (Normal) Range: 37-47 HGB 14.3 g/dL (Normal) Range: 12.0-15.0 RBC 4.89 {M/mm3} (Normal) Range: 4.2-5.4 WBC 7.3 K/mm3 (Normal) Range: 4.4-11.0 63-Ptg-115445:14 Thyroid Stim Hormone (TSH) Comments: Order Date: 09/21/16Order Info: [id number] - *TSHComments: Reason:[facility] [address] [place], [place], [id number] TSH 1.64 {uIU/mL} (Normal) Range: 0.358-3.74 :55 HgA1C , Office (85002) HgA1C , Office 5.8 % (Normal) Range: 4.6 - 7.1 03-Agu-846043:55 Blood Glucose , Office (14779) Blood Glucose , Office 110 (Normal) 38-Zli-982939:19 THROAT CULTURE (00212) Comments: PATIENT NOT FASTINGPERFORMED BY: LabCoRobert [facility] Hospital SomersetNxbnnh7108 [facility] [id number] Information: SRC:TH Result 1 RRF (Normal) Comments: Routine respiratory jaylyn Upper Respiratory Culture Final report (Normal) 41-Jjr-723883:42 LIPID PANEL (08065) Comments: PATIENT WAS FASTINGPERFORMED BY: LabCoRobert Wood Johnson [facility] Hospital SomersetLodcvr0300 [facility] [id number] LDL/HDL Ratio 3.4 {ratio_units} (Abnormal) Range: 0.0-3.2 Comments: LDL/HDL Ratio Men Women 1/2 Avg.Risk 1.0 1.5 Av g.Risk 3.6 3.2 2X Avg.Risk 6.2 5.0 3X Avg.Risk 8.0 6.1 LDL Cholesterol Calc 122 mg/dL (Abnormal) Range: 0-99 VLDL Cholesterol Leonel 34 mg/dL (Normal) Range: 5-40 HDL Cholesterol 36 mg/dL (Abnormal) Triglycerides 172 mg/dL (Abnormal) Range: 0-149 Cholesterol, Total 192 mg/dL (Normal) Range: 100-199 95-Miq-140592:42 CALCIFIDIOL (29798) VIT D 25 Comments: PATIENT WAS FASTINGPERFORMED BY: LabCoClinicalBox Citizens Memorial HealthcareSilicon MitusDuke Raleigh Hospital [id number]; will rview on 07/03 Vitamin D, 25-Hydroxy 23.3 ng/mL (Abnormal) Range: 30.0-100.0 Comments: Vitamin D deficiency has been defined by the Jemison ofMedicine and an Endocrine Society practice guideline as alevel of serum 25-OH vitamin D less than 20 ng/mL (1,2).The Endocrine Society went on to further define vitamin Dinsufficiency as a level between 21 and 29 ng/mL (2).1. IOM (Jemison of Medicine). 2010. Dietary reference intakes for calcium and D. [place]: The National Academies Press.2. Catie MF, Karon NC, Myron KESSLER, et al. Evaluation, treatment, and prevention of vitamin D deficiency: an Endocrine Society clinical practice guideline. JCEM. 2010; 96(7):1911-30. 29-Joz-911035:09 HgA1C , Office (04547) HgA1C , Office 6.0 % (Normal) Range: 4.6 - 7.1 82-Pst-524284:09 Blood Glucose , Office (82658) Blood Glucose , Office 113 (Normal) 50-Xzv-753360:21 Microscopic Examination Comments: PATIENT WAS FASTINGPERFORMED BY: [facility] Awcoda1952 [facility] [id number] Bacteria Few (Normal) Mucus Threads Present (Normal) Epithelial Cells (non renal) 0-10 {/hpf} (Normal) Range: 0 - 10 RBC 0-2 {/hpf} (Normal) Range: 0 - 2 WBC 0-5 {/hpf} (Normal) Range: 0 - 5 :53 PPD (51749) Comments: lot: [id number]: 07/22site/route: L forearm/intradermalamt: 0.1mLVIS signed when applicableChelsea, LANGUAGE ASSISTANT SKIN TEST INTRADERMAL TB negative (Normal) :33 LDH (LD) (LACTATE DEHYDROGENASE) Comments: PATIENT NOT FASTINGPERFORMED BY: Wan Shidao management70 CerecorDuke Raleigh Hospital [id number] (69419) LDH 174 [iU]/L (Normal) Range: 119-226 :33 SED RATE ERYTHROCYTE (84423) Comments: PATIENT NOT FASTINGPERFORMED BY: [employer] LabMeru Networksrp Kydssb4550 CreabilisUNC Health [facility] [id number] Sedimentation Rate-Westergren 2 mm/h (Normal) Range: 0-40 :33 C-REACTIVE PROTEIN (64496) Comments: PATIENT NOT FASTINGPERFORMED BY: [employer] [facility] Zjyomp2608 [address] [facility] [id number] C-Reactive Protein, Quant 1.8 mg/L (Normal) Range: 0.0-4.9 :33 TSH (53323) Comments: PATIENT NOT FASTINGPERFORMED BY: [facility] Ogogti3738 [facility] [id number] TSH 2.710 {uIU/mL} (Normal) Range: 0.450-4.500 :33 METABOLIC PANEL, COMPREHENSIVE Comments: PATIENT NOT FASTINGPERFORMED BY: [employer] LabMeru Networksrp Guiwnq2743 AguileraThree Rivers Healthcare [id number] (95229) ALT (SGPT) 25 [iU]/L (Normal) Range: 0-32 AST (SGOT) 20 [iU]/L (Normal) Range: 0-40 Alkaline Phosphatase, S 89 [iU]/L (Normal) Range: 39-117 Bilirubin, Total 0.4 mg/dL (Normal) Range: 0.0-1.2 A/G Ratio 1.9 (Normal) Range: 1.1-2.5 Globulin, Total 2.5 g/dL (Normal) Range: 1.5-4.5 Albumin, Serum 4.8 g/dL (Normal) Range: 3.5-5.5 Protein, Total, Serum 7.3 g/dL (Normal) Range: 6.0-8.5 Calcium, Serum 9.5 mg/dL (Normal) Range: 8.7-10.2 Carbon Dioxide, Total 22 mmol/L (Normal) Range: 18-29 Chloride, Serum 103 mmol/L (Normal) Range: 96-106 Comments: Please note reference interval change Potassium, Serum 4.1 mmol/L (Normal) Range: 3.5-5.2 Sodium, Serum 143 mmol/L (Normal) Range: 134-144 Comments: Please note reference interval change BUN/Creatinine Ratio 16 (Normal) Range: 9-23 eGFR If Africn Am 98 mL/min/1.73 (Normal) eGFR If NonAfricn Am 85 mL/min/1.73 (Normal) Creatinine, Serum 0.77 mg/dL (Normal) Range: 0.57-1.00 BUN 12 mg/dL (Normal) Range: 6-24 Glucose, Serum 83 mg/dL (Normal) Range: 65-99 92-Rop-763598:33 CBC W/AUTO DIFF WBC (05005) Comments: PATIENT NOT FASTINGPERFORMED BY: LabCoRobert Wood Johnson University Hospital SomersetBvxcht1775 [facility] [id number] Immature Grans (Abs) 0.0 {x10E3/uL} (Normal) Range: 0.0-0.1 Immature Granulocytes 0 % (Normal) Baso (Absolute) 0.0 {x10E3/uL} (Normal) Range: 0.0-0.2 Eos (Absolute) 0.1 {x10E3/uL} (Normal) Range: 0.0-0.4 Monocytes(Absolute) 0.5 {x10E3/uL} (Normal) Range: 0.1-0.9 Lymphs (Absolute) 3.1 {x10E3/uL} (Normal) Range: 0.7-3.1 Neutrophils (Absolute) 3.5 {x10E3/uL} (Normal) Range: 1.4-7.0 Basos 0 % (Normal) Eos 2 % (Normal) Monocytes 7 % (Normal) Lymphs 43 % (Normal) Neutrophils 48 % (Normal) Platelets 215 {x10E3/uL} (Normal) Range: 150-379 RDW 13.2 % (Normal) Range: 12.3-15.4 MCHC 34.1 g/dL (Normal) Range: 31.5-35.7 MCH 28.8 pg (Normal) Range: 26.6-33.0 MCV 84 fL (Normal) Range: 79-97 Hematocrit 41.3 % (Normal) Range: 34.0-46.6 Hemoglobin 14.1 g/dL (Normal) Range: 11.1-15.9 RBC 4.90 {x10E6/uL} (Normal) Range: 3.77-5.28 WBC 7.4 {x10E3/uL} (Normal) Range: 3.4-10.8 :00 Culture, Deep Wound Comments: [address] [place], [address] CUDW See Note (Normal) Comments: Comments: ABDOMINAL ABCESSGram StainGram Stain No White Blood Cells No organisms seen Wound CulturePossible skin contamination, further Identification and sensitivity will be performed only by physi taye's request. ORGANISM 1: Coag Negative StaphAmount Growth Very Rare Cult, AnaerobicNo anaerobic bacteria isolated. 12-Hqo-606645:51 Albumin, Serum Comments: [address] [place], [address] ALB 4.3 g/dL (Normal) Range: 3.4-5.0 73-Dcr-748647:51 Basic Metabolic Profile (BMP) Comments: [address] [place], [place], [id number] GAP 6 (Normal) Range: 5-15 CO2 26.0 mmol/L (Normal) Range: 21.0-32.0 CL 104 mmol/L (Normal) Range: 98-107 K 4.4 mmol/L (Normal) Range: 3.5-5.1 NA 136 mmol/L (Normal) Range: 136-145 CA 8.9 mg/dL (Normal) Range: 8.5-10.1 BUN/CRE 17.3 {RATIO} (Normal) Range: 10-20 EST GFR - AA 70 mL/min (Normal) Comments: GFR Calc EST GFR 58 mL/min (Abnormal) Comments: Non- GFR Calc CREAT,SERUM 1.04 mg/dL (Normal) Range: 0.55-1.20 Comments: The validity of the calculated GFR AND GFRAA in patients over70 years has not been determined. Clinical correlation isessential. BUN 18 mg/dL (Normal) Range: 7-18 GLU 118 mg/dL (Abnormal) Range: 70-110 Comments: Fasting Glucose result from 110 to <126 mg/dLsuggests IMPAIRED HOMEOSTASIS per A.D.A. criteria. 18-Spf-448836:51 CBC-Complete Blood Cnt No Diff Comments: [facility] [address] [place], [place], [address] MPV 9.4 fL (Normal) Range: 6.2-12.0 PLT 307 K/mm3 (Normal) Range: 150-450 RDW SD 39.8 fL (Normal) Range: 35.1-43.9 RDW CV 13.1 % (Normal) Range: 11.6-14.6 MCHC 34.1 {g/gl} (Normal) Range: 32-36 MCH 29.2 pg (Normal) Range: 27.0-32.0 MCV 85.6 fL (Normal) Range: 81-99 HCT 40.5 % (Normal) Range: 37-47 HGB 13.8 g/dL (Normal) Range: 12.0-15.0 RBC 4.73 {M/mm3} (Normal) Range: 4.2-5.4 WBC 5.8 K/mm3 (Normal) Range: 4.4-11.0 :51 Hemoglobin A1c Comments: [facility] [address] [place], [place], [id number] HGB A1C 6.1 % (Normal) Range: 4.2-6.3 :51 Prealbumin Comments: [facility] [address] [place], [address] PREALBUMIN 32.4 mg/dL (Normal) Range: 20.0-40.0 64-Vbc-01141:06 Urinalysis, Office (22423) UA - LEUKOCYTE ESTERASE Negative (Normal) UA - NITRITE Negative (Normal) URINE UROBILINGN MICHAEL TIMED Normal mg/dL (Normal) UA - PROTEIN Negative mg/dL (Normal) UA - PH 6.0 (Normal) Comments: 5.5 UA - BLOOD Non Hemolyzed Trace (Normal) UA - SPECIFIC GRAVITY 1.030 (Abnormal) UA - KETONES Negative mg/dL (Normal) UA - BILIRUBIN Negative (Normal) UA - GLUCOSE Negative (Normal) 5-Sci-616312:23 SED RATE ERYTHROCYTE Comments: PATIENT WAS FASTINGPERFORMED BY: My Computer WorksDr. Dan C. Trigg Memorial HospitalWkndqz78[address] [place] [address] [id number] Information: [id number] (00033) Sedimentation Rate-Westergren 2 mm/h (Normal) Range: 0-40 2-Gbu-064533:27 Aerobic Bacterial Culture Comments: PATIENT WAS FASTINGPERFORMED BY: [employer] Works[address] [id number] Information: [id number] SRC:AB (22441) Result 1 Mixed skin jaylyn (Normal) Aerobic Bacterial Culture Final report (Normal) 1-Pap-792985:21 Serum Creatinine AND GFR Comments: [facility] [address] [place], [place], [id number] EST GFR - AA 73 mL/min (Normal) Comments: GFR Calc EST GFR 60 mL/min (Normal) Comments: Non- GFR Calc CREAT,SERUM 1.00 mg/dL (Normal) Range: 0.55-1.20 Comments: The validity of the calculated GFR AND GFRAA in patients over70 years has not been determined. Clinical correlation isessential. 21-Bxw-578156:21 VITAMIN B-12 (CYANOCOBALAMIN) Comments: PATIENT WAS FASTINGPERFORMED BY: FandiumRobert Wood Johnson [facility] Hospital SomersetSdxejv5387 [facility] [id number] (75524) Vitamin B12 738 pg/mL (Normal) Range: 211-946 :21 TSH (43785) Comments: PATIENT WAS FASTINGPERFORMED BY: FundedByMeCorewell Health [facility] Hospital6370 [facility] [id number] TSH 2.440 {uIU/mL} (Normal) Range: 0.450-4.500 :21 URINALYSIS, W/ MICRO (31982) Comments: PATIENT WAS FASTINGPERFORMED BY: [facility]6370 [facility] [id number] Microscopic Examination See below: (Normal) Comments: Microscopic was indicated and was performed. Microscopic Examination MICRON (Normal) Comments: Microscopic follows if indicated. Nitrite, Urine Negative (Normal) Urobilinogen,Semi-Qn 0.2 mg/dL (Normal) Range: 0.2-1.0 Bilirubin Negative (Normal) Occult Blood Negative (Normal) Ketones Negative (Normal) Glucose Negative (Normal) Protein Negative (Normal) WBC Esterase Negative (Normal) Appearance Clear (Normal) Urine-Color Yellow (Normal) pH 5.5 (Normal) Range: 5.0-7.5 Specific [place] 1.027 (Normal) Range: 1.005-1.030 :21 MICROALBUMIN: CREATININE RATIO Comments: PATIENT WAS FASTINGPERFORMED BY: My Computer WorksRobert Wood Johnson University Hospital SomersetUktpiq6032 [facility] [id number] (94506) AND (04269) Microalb/Creat Ratio 2.9 {mg/g_creat} (Normal) Range: 0.0-30.0 Microalbumin, Urine 4.1 ug/mL (Normal) Creatinine, Urine 143.7 mg/dL (Normal) :21 METABOLIC PANEL, COMPREHENSIVE Comments: PATIENT WAS FASTINGPERFORMED BY: FundedByMeCorewell Health Greenville Hospital6370 [facility] [id number] (54683) ALT (SGPT) 28 [iU]/L (Normal) Range: 0-32 AST (SGOT) 19 [iU]/L (Normal) Range: 0-40 Alkaline Phosphatase, S 85 [iU]/L (Normal) Range: 39-117 Bilirubin, Total 0.5 mg/dL (Normal) Range: 0.0-1.2 A/G Ratio 1.8 (Normal) Range: 1.1-2.5 Globulin, Total 2.4 g/dL (Normal) Range: 1.5-4.5 Albumin, Serum 4.3 g/dL (Normal) Range: 3.5-5.5 Protein, Total, Serum 6.7 g/dL (Normal) Range: 6.0-8.5 Calcium, Serum 9.3 mg/dL (Normal) Range: 8.7-10.2 Carbon Dioxide, Total 20 mmol/L (Normal) Range: 18-29 Chloride, Serum 105 mmol/L (Normal) Range: 96-106 Potassium, Serum 4.3 mmol/L (Normal) Range: 3.5-5.2 Sodium, Serum 143 mmol/L (Normal) Range: 134-144 BUN/Creatinine Ratio 16 (Normal) Range: 9-23 eGFR If Africn Am 86 mL/min/1.73 (Normal) eGFR If NonAfricn Am 74 mL/min/1.73 (Normal) Creatinine, Serum 0.86 mg/dL (Normal) Range: 0.57-1.00 BUN 14 mg/dL (Normal) Range: 6-24 Glucose, Serum 134 mg/dL (Abnormal) Range: 65-99 74-Zpz-389023:21 CBC W/AUTO DIFF WBC (58160) Comments: PATIENT WAS FASTINGPERFORMED BY: LabCoRobert Wood Johnson University Hospital SomersetFjrvys2457 [facility] [id number] Immature Grans (Abs) 0.0 {x10E3/uL} (Normal) Range: 0.0-0.1 Immature Granulocytes 0 % (Normal) Baso (Absolute) 0.0 {x10E3/uL} (Normal) Range: 0.0-0.2 Eos (Absolute) 0.1 {x10E3/uL} (Normal) Range: 0.0-0.4 Monocytes(Absolute) 0.4 {x10E3/uL} (Normal) Range: 0.1-0.9 Lymphs (Absolute) 2.1 {x10E3/uL} (Normal) Range: 0.7-3.1 Neutrophils (Absolute) 2.6 {x10E3/uL} (Normal) Range: 1.4-7.0 Basos 0 % (Normal) Eos 3 % (Normal) Monocytes 7 % (Normal) Lymphs 40 % (Normal) Neutrophils 50 % (Normal) Platelets 221 {x10E3/uL} (Normal) Range: 150-379 RDW 13.3 % (Normal) Range: 12.3-15.4 MCHC 33.7 g/dL (Normal) Range: 31.5-35.7 MCH 29.0 pg (Normal) Range: 26.6-33.0 MCV 86 fL (Normal) Range: 79-97 Hematocrit 41.8 % (Normal) Range: 34.0-46.6 Hemoglobin 14.1 g/dL (Normal) Range: 11.1-15.9 RBC 4.87 {x10E6/uL} (Normal) Range: 3.77-5.28 WBC 5.2 {x10E3/uL} (Normal) Range: 3.4-10.8 28-Hkg-719650:21 LIPID PANEL (97475) Comments: PATIENT WAS FASTINGPERFORMED BY: Wan Shidao management70 CerecorDuke Raleigh Hospital [id number] LDL/HDL Ratio 3.0 {ratio_units} (Normal) Range: 0.0-3.2 Comments: LDL/HDL Ratio Men Women 1/2 Avg.Risk 1.0 1.5 Av g.Risk 3.6 3.2 2X Avg.Risk 6.2 5.0 3X Avg.Risk 8.0 6.1 LDL Cholesterol Calc 121 mg/dL (Abnormal) Range: 0-99 VLDL Cholesterol Leonel 27 mg/dL (Normal) Range: 5-40 HDL Cholesterol 41 mg/dL (Normal) Triglycerides 137 mg/dL (Normal) Range: 0-149 Cholesterol, Total 189 mg/dL (Normal) Range: 100-199 68-Zya-161841:21 CALCIFIDIOL (73836) VIT D 25 Comments: PATIENT WAS FASTINGPERFORMED BY: [employer] [facility] Ejmtjy2585 [place] [facility] [id number] Vitamin D, 25-Hydroxy 19.5 ng/mL (Abnormal) Range: 30.0-100.0 Comments: Vitamin D deficiency has been defined by the Jemison ofMedicine and an Endocrine Society practice guideline as alevel of serum 25-OH vitamin D less than 20 ng/mL (1,2).The Endocrine Society went on to further define vitamin Dinsufficiency as a level between 21 and 29 ng/mL (2).1. IOM (Jemison of Medicine). 2010. Dietary reference intakes for calcium and D. [place]: The National Academies Press.2. Catie MF, Karon ACEVEDO, Myron KESSLER, et al. Evaluation, treatment, and prevention of vitamin D deficiency: an Endocrine Society clinical practice guideline. JCEM. 2010; 96(7):1911-30. :19 HgA1C , Office (45691) HgA1C , Office 5.8 % (Normal) Range: 4.6 - 7.1 :19 Blood Glucose , Office (99945) Blood Glucose , Office 79 (Normal) 12-Pjj-375924:15 Lipid Profile Comments: Order Date: 10/21/15Interface Comments: 12 hours fasting, may have water.Order Date: 10/21/15[facility] [address] [place], [place], [address] VLDL 28 mg/dL (Normal) Range: 5-40 LDL 97 mg/dL (Normal) Range: 0-130 HDL 35 mg/dL (Abnormal) Comments: The drugs N-Acetylcysteine and Metamizole may falsely deressthis assay. Reference Range HDL <40 mg/dL Low HDL Cholesterol HDL >or= 60 mg/dL High HDL Cholesterol TRIG 142 mg/dL (Normal) Comments: The drugs N-Acetylcysteine and Metamizole may falsely deressthis assay.Serum Triglycerides Reference Interval Normal <150 mg/dL Borderline high 150 - 199 mg/dL High 200 - 499 mg/dL Very High > or = 500 mg/dL CHOL 160 mg/dL (Normal) Comments: <200 mg/dL Desirable 200-240 mg/dL Borderline >240 mg/dL High Risk 86-Zsn-065557:15 Liver Profile Comments: Order Date: 10/21/15Interface Comments: 12 hours fasting, may have water.Order Date: 10/21/15[facility] [address] [place], [place], [address] D BILI 0.13 mg/dL (Normal) Range: 0.00-0.30 T BILI 0.80 mg/dL (Normal) Range: 0.20-1.00 ALT 39 U/L (Normal) Range: 12-78 ALK P 90 U/L (Normal) Range: 50-136 AST 23 U/L (Normal) Range: 15-37 GLOB 3.1 g/dL (Normal) Range: 2.3-3.5 ALB 4.3 g/dL (Normal) Range: 3.4-5.0 T PROT 7.4 g/dL (Normal) Range: 6.4-8.2 :48 HgA1C , Office (63587) HgA1C , Office 5.9 % (Normal) Range: 4.6 - 7.1 :48 Blood Glucose , Office (94704) Blood Glucose , Office 81 (Normal) :50 Microscopic Examination Comments: PATIENT WAS FASTINGPERFORMED BY: [employer] Jodgip3189 [facility] [id number] Bacteria Few (Normal) Mucus Threads Present (Normal) Epithelial Cells (non renal) 0-10 {/hpf} (Normal) Range: 0 - 10 RBC 0-2 {/hpf} (Normal) Range: 0 - 2 WBC 0-5 {/hpf} (Normal) Range: 0 - 5 :17 VITAMIN B-12 (CYANOCOBALAMIN) Comments: PATIENT NOT FASTINGPERFORMED BY: My Computer WorksRobert Wood Johnson University Hospital SomersetAyzlue2831 [facility] [id number] (02854) Vitamin B12 928 pg/mL (Normal) Range: 211-946 :17 CALCIFIDIOL (36465) VIT D Comments: PATIENT NOT FASTINGPERFORMED BY: FundedByMeCorewell Health [facility] Hospital6370 [facility] [id number] Information: [id number] Vitamin D, 25-Hydroxy 20.0 ng/mL (Abnormal) Range: 30.0-100.0 Comments: Vitamin D deficiency has been defined by the Jemison ofMedicine and an Endocrine Society practice guideline as alevel of serum 25-OH vitamin D less than 20 ng/mL (1,2).The Endocrine Society went on to further define vitamin Dinsufficiency as a level between 21 and 29 ng/mL (2).1. IOM (Jemison of Medicine). 2010. Dietary reference intakes for calcium and D. [place]: The National Academies Press.2. Catie MF, Karon ACEVEDO, Myron KESSLER, et al. Evaluation, treatment, and prevention of vitamin D deficiency: an Endocrine Society clinical practice guideline. JCEM. 2010; 96(7):1911-30. :50 URINALYSIS, W/ MICRO (82349) Comments: PATIENT WAS FASTINGPERFORMED BY: MediaXstreamDuke Raleigh Hospital [id number] Microscopic Examination See below: (Normal) Comments: Microscopic was indicated and was performed. Microscopic Examination MICRON (Normal) Comments: Microscopic follows if indicated. Nitrite, Urine Negative (Normal) Urobilinogen,Semi-Qn 0.2 mg/dL (Normal) Range: 0.2-1.0 Bilirubin Negative (Normal) Occult Blood Negative (Normal) Ketones Negative (Normal) Glucose Negative (Normal) Protein Negative (Normal) WBC Esterase Negative (Normal) Appearance Clear (Normal) Urine-Color Yellow (Normal) pH 6.0 (Normal) Range: 5.0-7.5 Specific [place] 1.021 (Normal) Range: 1.005-1.030 :50 MICROALBUMIN: CREATININE RATIO Comments: PATIENT WAS FASTINGPERFORMED BY: IQuum [facility] HospitalSilicon MitusDuke Raleigh Hospital [id number] (74700) AND (14548) Microalb/Creat Ratio 2.6 {mg/g_creat} (Normal) Range: 0.0-30.0 Microalbumin, Urine 4.4 ug/mL (Normal) Creatinine, Urine 170.1 mg/dL (Normal) :50 METABOLIC PANEL, COMPREHENSIVE Comments: PATIENT WAS FASTINGPERFORMED BY: MediaXstreamDuke Raleigh Hospital [id number] (01386) ALT (SGPT) 28 [iU]/L (Normal) Range: 0-32 AST (SGOT) 22 [iU]/L (Normal) Range: 0-40 Alkaline Phosphatase, S 93 [iU]/L (Normal) Range: 39-117 Bilirubin, Total 0.7 mg/dL (Normal) Range: 0.0-1.2 A/G Ratio 1.9 (Normal) Range: 1.1-2.5 Globulin, Total 2.3 g/dL (Normal) Range: 1.5-4.5 Albumin, Serum 4.3 g/dL (Normal) Range: 3.5-5.5 Protein, Total, Serum 6.6 g/dL (Normal) Range: 6.0-8.5 Calcium, Serum 9.2 mg/dL (Normal) Range: 8.7-10.2 Carbon Dioxide, Total 21 mmol/L (Normal) Range: 18-29 Chloride, Serum 105 mmol/L (Normal) Range: 97-108 Potassium, Serum 4.6 mmol/L (Normal) Range: 3.5-5.2 Sodium, Serum 142 mmol/L (Normal) Range: 134-144 BUN/Creatinine Ratio 11 (Normal) Range: 9-23 eGFR If Africn Am 91 mL/min/1.73 (Normal) eGFR If NonAfricn Am 79 mL/min/1.73 (Normal) Creatinine, Serum 0.82 mg/dL (Normal) Range: 0.57-1.00 BUN 9 mg/dL (Normal) Range: 6-24 Glucose, Serum 113 mg/dL (Abnormal) Range: 65-99 :50 CBC W/AUTO DIFF WBC Comments: PATIENT WAS FASTINGPERFORMED BY: LabCoRobert Wood Johnson University Hospital SomersetTatsyz0610 [facility] [id number] Information: [id number] DL (76027) Immature Grans (Abs) 0.0 {x10E3/uL} (Normal) Range: 0.0-0.1 Immature Granulocytes 0 % (Normal) Baso (Absolute) 0.0 {x10E3/uL} (Normal) Range: 0.0-0.2 Eos (Absolute) 0.1 {x10E3/uL} (Normal) Range: 0.0-0.4 Monocytes(Absolute) 0.5 {x10E3/uL} (Normal) Range: 0.1-0.9 Lymphs (Absolute) 2.1 {x10E3/uL} (Normal) Range: 0.7-3.1 Neutrophils (Absolute) 2.3 {x10E3/uL} (Normal) Range: 1.4-7.0 Basos 0 % (Normal) Eos 3 % (Normal) Monocytes 10 % (Normal) Lymphs 42 % (Normal) Neutrophils 45 % (Normal) Platelets 214 {x10E3/uL} (Normal) Range: 150-379 RDW 13.6 % (Normal) Range: 12.3-15.4 MCHC 33.9 g/dL (Normal) Range: 31.5-35.7 MCH 28.6 pg (Normal) Range: 26.6-33.0 MCV 84 fL (Normal) Range: 79-97 Hematocrit 41.3 % (Normal) Range: 34.0-46.6 Hemoglobin 14.0 g/dL (Normal) Range: 11.1-15.9 RBC 4.90 {x10E6/uL} (Normal) Range: 3.77-5.28 WBC 5.0 {x10E3/uL} (Normal) Range: 3.4-10.8 :50 VITAMIN B-12 (CYANOCOBALAMIN) Comments: PATIENT WAS FASTINGPERFORMED BY: LabCoMelissa Ville [id number] [facility] [id number] (62397) Vitamin B12 589 pg/mL (Normal) Range: 211-946 :50 LIPID PANEL ([id number]) Comments: PATIENT WAS FASTINGPERFORMED BY: [facility] [id number] LDL/HDL Ratio 3.2 {ratio_units} (Normal) Range: 0.0-3.2 Comments: LDL/HDL Ratio Men Women 1/2 Avg.Risk 1.0 1.5 Av g.Risk 3.6 3.2 2X Avg.Risk 6.2 5.0 3X Avg.Risk 8.0 6.1 LDL Cholesterol Calc 110 mg/dL (Abnormal) Range: 0-99 VLDL Cholesterol Leonel 34 mg/dL (Normal) Range: 5-40 HDL Cholesterol 34 mg/dL (Abnormal) Comments: According to ATP-III Guidelines, HDL-C >59 mg/dL is considered anegative risk factor for CHD. Triglycerides 169 mg/dL (Abnormal) Range: 0-149 Cholesterol, Total 178 mg/dL (Normal) Range: 100-199 [id number] CALCIFIDIOL (25023) VIT D 25 Comments: PATIENT WAS FASTINGPERFORMED BY: [facility] [id number] [place] [facility] [id number] Vitamin D, 25-Hydroxy 23.6 ng/mL (Abnormal) Range: 30.0-100.0 Comments: Vitamin D deficiency has been defined by the [place] [employer] and an Endocrine Society practice guideline as alevel of serum 25-OH vitamin D less than 20 ng/mL (1,2).The Endocrine Society went on to further define vitamin Dinsufficiency as a level between 21 and 29 ng/mL (2).1. IOM ([place] [employer]). 2010. Dietary reference intakes for calcium and D. [place]: The National Academies Press.2. Catie MF, Karon ACEVEDO, Myron KESSLER, et al. Evaluation, treatment, and prevention of vitamin D deficiency: an Endocrine Society clinical practice guideline. JCEM. 2010; 96(7):1911-30. :39 HgA1C , Office (62698) HgA1C , Office 5.7 % (Normal) Range: 4.6 - 7.1 :39 Blood Glucose , Office (05037) Blood Glucose , Office 87 (Normal) :08 CK-MB Quantitative and Index Comments: 'TROP' Serial specimen #1, #2, #3, or #4: INT'CKMB' Serial Specimen #1, #2 or #3? 1[facility] [address] [place], [place], [id number] CKRI 0.5 % (Normal) Range: 0.0-1.4 Comments: RELATIVE INDEX >1.5% IS PRESUMPTIVELY POSITIVE CPKMB 0.6 ng/mL (Normal) Range: 0.0-5.0 Comments: CK-MB and RI Interpretation MB Relative Index Non-AMI <or= 5 NA Indeterminate > 5 <or= 4 AMI > 5 > 4 CPK TOTAL 114 U/L (Normal) Range: 26-192 :08 Troponin I (34831) Comments: 'TROP' Serial specimen #1, #2, #3, or #4: INT'CKMB' Serial Specimen #1, #2 or #3? [facility] [address] [place], [address] TROPONIN-I < 0.02 ng/mL (Normal) Comments: TROPONIN-I EXPECTED VALUES <0.05 NEGATIVE 0.06 - 0.59 AT RISK OF [place] > OR = 0.60 SUGGEST [place] 2-Slc-974852:44 LIPID PANEL (15173) Comments: PATIENT WAS FASTINGPERFORMED BY: [facility] Rvnozt9038 [facility] [id number] Information: [id number] LDL/HDL Ratio 2.6 {ratio_units} (Normal) Range: 0.0-3.2 Comments: LDL/HDL Ratio Men Women 1/2 Avg.Risk 1.0 1.5 Av g.Risk 3.6 3.2 2X Avg.Risk 6.2 5.0 3X Avg.Risk 8.0 6.1 LDL Cholesterol Calc 95 mg/dL (Normal) Range: 0-99 VLDL Cholesterol Leonel 40 mg/dL (Normal) Range: 5-40 HDL Cholesterol 37 mg/dL (Abnormal) Comments: According to ATP-III Guidelines, HDL-C >59 mg/dL is considered anegative risk factor for CHD. Triglycerides 200 mg/dL (Abnormal) Range: 0-149 Cholesterol, Total 172 mg/dL (Normal) Range: 100-199 6-Gqb-009786:56 HgA1C , Office (48329) HgA1C , Office 5.8 % (Normal) Range: 4.6 - 7.1 0-Gqg-515546:56 Blood Glucose , Office (95843) Blood Glucose , Office 99 (Normal) 34-Fxg-363469:27 URINE SHANI CULTURE-MICHAEL COL Comments: PATIENT NOT FASTINGPERFORMED BY: [facility]CoRobert [facility] SomersetQreyjk0384 [facility] [id number] Information: SRC:[facility] [id number] COUNT (63601) Antimicrobial MIHEAD (Normal) Comments: S = Susceptible; I = Intermediate; R = Resistant P = Positive; N = Negative MICS are expressed in micrograms per mL Antibiotic RSLT#1 RSLT#2 RS Susceptibility LT#3 RSLT#4Amoxicillin/Clavulanic Acid SAmpicillin RCefepime SCeftriaxone SCefuroxime SCephalothin SCiprofloxacin SErtapenem SGentamicin SImipenem SLevofloxacin SNitrofurantoin SPipera cillin RTetracycline STobramycin STrimethoprim/Sulfa S Result 1 Klebsiella oxytoca Comments: 200 Colonies/mL . (Abnormal) Urine Final report Culture,Comprehensive (Abnormal) 33-Roi-175019:33 Urinalysis, Office (63880) UA - LEUKOCYTE ESTERASE Negative (Normal) UA - NITRITE Negative (Normal) URINE UROBILINGN MICHAEL TIMED Normal mg/dL (Normal) UA - PROTEIN Negative mg/dL (Normal) UA - PH 5 (Abnormal) UA - BLOOD Negative (Normal) UA - SPECIFIC GRAVITY 1.025 (Normal) UA - KETONES Negative mg/dL (Normal) UA - BILIRUBIN Negative (Normal) UA - GLUCOSE Negative (Normal) 08-Gjp-491949:00 Culture, Wound Comments: Test performed at:[facility] [address] [place], [place] [address] CUW See Note (Normal) Comments: SPECIMEN RECEIVED IN CULTURETTE (EXP. 06/2014) RESULTS MAY BE AFFECTEDComments: LEFT HEELGram StainGram Stain Rare White Blood Cells Rare Gram negative rods Wound CultureORGANISM 1: Klebsiell a oxytocaAmount Growth Rare Klebsiella oxytoca: REACTION Amoxacillin/Clavulanic Acid $ <=2 S Ampicillin $ 16 R Ampicillin/Sulbactam $ 4 S Cefazolin $ <=4 S Cefepime $ <=1 S Ceftriaxone $ <=1 S Ciprofloxacin $ <=0.25 S ESBL - Ertapenim $$$ <=0.5 S Gentamicin $ <=1 S Imipenem *NF <=0.25 S Levofloxacin $ <=0.12 S Piperacillin/Tazobactam $$ <=4 S Tobramycin $ <=1 S Trimethoprim/Sulfametho $ <=20 S(NF) indicates non-formulary drug at [facility]. Approval by In fectious Disease Specialist required before non-formulary drugs may be ordered and/or dispensed. 97-Yuq-497719:54 Bedside Glucose Comments: Test performed at:[facility] [address] [place] [address] ; ordered by Dr. Kebede BEDSIDE GLU 126 mg/dL (Abnormal) Range: 70-110 Comments: No Action RequiredMANAGEMENT OF PATIENT CARE PER NURSING PROTOCOL 67-Vnj-280045:25 Urinalysis, Routine (Dipstick) Comments: How was Urine Obtained? TOSSER TO SPECIFYTest performed at:[facility] [address] [place] [address] LEUK ESTERASE Negative /ul (Normal) OCCULT BLOOD-UR Negative /ul (Normal) NITRITE UR Negative (Normal) UROBILI Normal mg/dL (Normal) PROT DIPSTX Negative mg/dL (Normal) pH UR 5.0 (Normal) Range: 5.0 - 8.0 SP.GR. DIPSTX 1.020 (Normal) Range: 1.002-1.030 KETONE UR Negative mg/dL (Normal) BILIRUBIN URINE Negative mg/dL (Normal) GLUCOSE, UR Normal mg/dL (Normal) CLARITY Clear (Normal) COLOR Yellow (Normal) 76-Vbv-619398:01 Bedside Glucose Comments: Test performed at:[facility] [address] [facility] [place] [address] BEDSIDE GLU 108 mg/dL (Normal) Range: 70-110 Comments: Policy and Physicians Orders followedMANAGEMENT OF PATIENT CARE PER NURSING PROTOCOL 03-Jel-51449:47 CBC W/Diff, Automated Comments: Test performed at:[facility] [address] [facility] [place] [address] Absolute Lymph 2.25 {X10_3/ul} (Normal) Range: 0.83-4.51 Absolute Neut 3.0 {X10_3/uL} (Normal) Range: 2.0-7.7 IM GRAN % 0.200 % (Normal) Range: 0.0-0.9 Comments: IG% - Immature Granulocytes (promyelocytes, myelocytes andmetamyelocytes) > 1% indicates that a LEFT SHIFT is Present. BASO% 0.3 % (Normal) Range: 0-1 EO% 2.4 % (Normal) Range: 0-5 MONO% 8.3 % (Normal) Range: 0-10 LY% 38.0 % (Normal) Range: 19-41 NEUT% 50.8 % (Normal) Range: 47-70 MPV 9.8 fL (Normal) Range: 6.2-12.0 PLT 232 K/mm3 (Normal) Range: 150-450 RDW SD 38.2 fL (Normal) Range: 35.1-43.9 RDW CV 12.7 % (Normal) Range: 11.6-14.6 MCHC 35.3 {g/gl} (Normal) Range: 32-36 MCH 29.4 pg (Normal) Range: 27.0-32.0 MCV 83.2 fL (Normal) Range: 81-99 HCT 42.5 % (Normal) Range: 37-47 HGB 15.0 g/dL (Normal) Range: 12.0-15.0 RBC 5.11 {M/mm3} (Normal) Range: 4.2-5.4 WBC 5.9 K/mm3 (Normal) Range: 4.4-11.0 46-Tmi-88005:47 Comprehensive Metabolic Profil Comments: Test performed at:[facility] [address] [place] [address] GAP 11 (Normal) Range: 5-15 CO2 24.0 mmol/L (Normal) Range: 21.0-32.0 CL 105 mmol/L (Normal) Range: 98-107 K 4.3 mmol/L (Normal) Range: 3.5-5.1 NA 140 mmol/L (Normal) Range: 136-145 T BILI 0.60 mg/dL (Normal) Range: 0.20-1.00 ALT 38 U/L (Normal) Range: 12-78 ALK P 105 U/L (Normal) Range: 50-136 AST 27 U/L (Normal) Range: 15-37 CA 8.9 mg/dL (Normal) Range: 8.5-10.1 A/G 1.1 {RATIO} (Normal) Range: 0.9-2.4 GLOB 3.7 g/dL (Normal) Range: 2.7-4.2 ALB 4.1 g/dL (Normal) Range: 3.4-5.0 T PROT 7.8 g/dL (Normal) Range: 6.4-8.2 BUN/CRE 18.8 {RATIO} (Normal) Range: 10-20 Estimated CRCL 69.82 ml/min (Normal) EST GFR - AA 96 mL/min (Normal) EST GFR 79 mL/min (Normal) CREAT,SERUM 0.8 mg/dL (Normal) Range: 0.6-1.0 BUN 15 mg/dL (Normal) Range: 7-18 GLU 106 mg/dL (Normal) Range: 70-110 :33 LIPID PANEL (01197) Comments: PATIENT WAS FASTINGPERFORMED BY: My Computer WorksRobert Wood Johnson University Hospital SomersetTqodhr8333 [facility] [id number] LDL/HDL Ratio 3.4 {ratio_units} (Abnormal) Range: 0.0-3.2 Comments: LDL/HDL Ratio Men Women 1/2 Avg.Risk 1.0 1.5 Av g.Risk 3.6 3.2 2X Avg.Risk 6.2 5.0 3X Avg.Risk 8.0 6.1 LDL Cholesterol Calc 133 mg/dL (Abnormal) Range: 0-99 VLDL Cholesterol Leonel 36 mg/dL (Normal) Range: 5-40 HDL Cholesterol 39 mg/dL (Abnormal) Comments: According to ATP-III Guidelines, HDL-C >59 mg/dL is considered anegative risk factor for CHD. Triglycerides 179 mg/dL (Abnormal) Range: 0-149 Cholesterol, Total 208 mg/dL (Abnormal) Range: 100-199 :33 TSH (21635) Comments: PATIENT WAS FASTINGPERFORMED BY: My Computer WorksRobert Wood Johnson University Hospital SomersetKcgjsa4240 [facility] [id number] TSH 3.440 {uIU/mL} (Normal) Range: 0.450-4.500 :33 METABOLIC PANEL, Comments: PATIENT WAS FASTINGPERFORMED BY: [facility]6370 [facility] [id number] Information: [id number] COMPREHENSIVE (17556) ALT (SGPT) 26 [iU]/L (Normal) Range: 0-32 AST (SGOT) 19 [iU]/L (Normal) Range: 0-40 Alkaline Phosphatase, S 97 [iU]/L (Normal) Range: 39-117 Bilirubin, Total 0.5 mg/dL (Normal) Range: 0.0-1.2 A/G Ratio 2.0 (Normal) Range: 1.1-2.5 Globulin, Total 2.4 g/dL (Normal) Range: 1.5-4.5 Albumin, Serum 4.7 g/dL (Normal) Range: 3.5-5.5 Protein, Total, Serum 7.1 g/dL (Normal) Range: 6.0-8.5 Calcium, Serum 9.6 mg/dL (Normal) Range: 8.7-10.2 Carbon Dioxide, Total 20 mmol/L (Normal) Range: 18-29 Chloride, Serum 104 mmol/L (Normal) Range: 97-108 Potassium, Serum 4.5 mmol/L (Normal) Range: 3.5-5.2 Sodium, Serum 143 mmol/L (Normal) Range: 134-144 BUN/Creatinine Ratio 17 (Normal) Range: 9-23 eGFR If Africn Am 82 mL/min/1.73 (Normal) eGFR If NonAfricn Am 71 mL/min/1.73 (Normal) Creatinine, Serum 0.90 mg/dL (Normal) Range: 0.57-1.00 BUN 15 mg/dL (Normal) Range: 6-24 Glucose, Serum 108 mg/dL (Abnormal) Range: 65-99 76-Nct-624654:33 CBC (AUTO) (52680) Comments: PATIENT WAS FASTINGPERFORMED BY: [facility] Eqkylm0206 [facility] [id number] Platelets 216 {x10E3/uL} (Normal) Range: 150-379 RDW 13.9 % (Normal) Range: 12.3-15.4 MCHC 34.1 g/dL (Normal) Range: 31.5-35.7 MCH 28.9 pg (Normal) Range: 26.6-33.0 MCV 85 fL (Normal) Range: 79-97 Hematocrit 41.6 % (Normal) Range: 34.0-46.6 Hemoglobin 14.2 g/dL (Normal) Range: 11.1-15.9 RBC 4.92 {x10E6/uL} (Normal) Range: 3.77-5.28 WBC 5.6 {x10E3/uL} (Normal) Range: 3.4-10.8 18-Nzq-855995:33 VITAMIN B-12 (CYANOCOBALAMIN) Comments: PATIENT WAS FASTINGPERFORMED BY: [facility]University [facility] Rektwb8268 [facility] [id number] (57748) Vitamin B12 638 pg/mL (Normal) Range: 211-946 55-Gbt-807100:33 CALCIFIDIOL (37934) VIT D 25 Comments: PATIENT WAS FASTINGPERFORMED BY: [facility] Xxqsdu6033 [facility] [id number]; apt. 12-13-14 Vitamin D, 25-Hydroxy 19.4 ng/mL (Abnormal) Range: 30.0-100.0 Comments: Vitamin D deficiency has been defined by the Jemison ofMedicine and an Endocrine Society practice guideline as alevel of serum 25-OH vitamin D less than 20 ng/mL (1,2).The Endocrine Society went on to further define vitamin Dinsufficiency as a level between 21 and 29 ng/mL (2).1. IOM (Jemison of Medicine). 2010. Dietary reference intakes for calcium and D. [place]: The National Academies Press.2. Catie MF, Karon NC, Myron KESSLER, et al. Evaluation, treatment, and prevention of vitamin D deficiency: an Endocrine Society clinical practice guideline. JCEM. 2010; 96(7):1911-30. 4-Cnc-250293:47 HgA1C , Office (74595) HgA1C , Office 5.9 % (Normal) Range: 4.6 - 7.1 83-Jyz-929496:05 METABOLIC PANEL, Comments: PATIENT NOT FASTINGPERFORMED BY: [facility] Zfmsmf7057 [facility] [id number] Information: [id number] COMPREHENSIVE (89035) ALT (SGPT) 24 [iU]/L (Normal) Range: 0-32 AST (SGOT) 17 [iU]/L (Normal) Range: 0-40 Alkaline Phosphatase, S 111 [iU]/L (Normal) Range: 39-117 Bilirubin, Total 0.6 mg/dL (Normal) Range: 0.0-1.2 A/G Ratio 1.9 (Normal) Range: 1.1-2.5 Globulin, Total 2.5 g/dL (Normal) Range: 1.5-4.5 Albumin, Serum 4.8 g/dL (Normal) Range: 3.5-5.5 Protein, Total, Serum 7.3 g/dL (Normal) Range: 6.0-8.5 Calcium, Serum 10.0 mg/dL (Normal) Range: 8.7-10.2 Carbon Dioxide, Total 22 mmol/L (Normal) Range: 18-29 Chloride, Serum 101 mmol/L (Normal) Range: 97-108 Potassium, Serum 4.3 mmol/L (Normal) Range: 3.5-5.2 Sodium, Serum 140 mmol/L (Normal) Range: 134-144 BUN/Creatinine Ratio 15 (Normal) Range: 9-23 eGFR If Africn Am 89 mL/min/1.73 (Normal) eGFR If NonAfricn Am 77 mL/min/1.73 (Normal) Creatinine, Serum 0.84 mg/dL (Normal) Range: 0.57-1.00 BUN 13 mg/dL (Normal) Range: 6-24 Glucose, Serum 139 mg/dL (Abnormal) Range: 65-99 90-Pvj-469173:05 CBC (AUTO) (45787) Comments: PATIENT NOT FASTINGPERFORMED BY: Wan Shidao management[address] [facility] [id number] Platelets 251 {x10E3/uL} (Normal) Range: 150-379 RDW 13.3 % (Normal) Range: 12.3-15.4 MCHC 33.9 g/dL (Normal) Range: 31.5-35.7 MCH 28.3 pg (Normal) Range: 26.6-33.0 MCV 84 fL (Normal) Range: 79-97 Hematocrit 43.4 % (Normal) Range: 34.0-46.6 Hemoglobin 14.7 g/dL (Normal) Range: 11.1-15.9 RBC 5.19 {x10E6/uL} (Normal) Range: 3.77-5.28 WBC 5.8 {x10E3/uL} (Normal) Range: 3.4-10.8 51-Lyk-393526:05 VITAMIN B-12 (CYANOCOBALAMIN) Comments: PATIENT NOT FASTINGPERFORMED BY: [employer] Weqlgd3704 [facility] [id number] (25030) Vitamin B12 365 pg/mL (Normal) Range: 211-946 81-Sff-900912:05 TSH (55918) Comments: PATIENT NOT FASTINGPERFORMED BY: [employer] Jdgxra2889 [facility] [id number] TSH 2.930 {uIU/mL} (Normal) Range: 0.450-4.500 :25 CKMB Comments: 'TROP' Serial specimen #1, #2, #3, or #4: INT'CKMB' Serial Specimen #1, #2 or #3? 1 CPKMB 1.1 ng/mL (Normal) Range: 0.0-5.0 Comments: CK-MB and RI Interpretation MB Relative IndexNon-AMI <or= 5 NAIndeterminate > 5 <or= 4AMI > 5 > 4 CPK 95 U/L (Normal) Range: 26-192 :25 CPK 93 U/L (Normal) Range: 26-192 74-Wqb-352431:25 CRP < 2.90 mg/L (Normal) Comments: 'TROP' Serial specimen #1, #2, #3, or #4: INT'CKMB' Serial Specimen #1, #2 or #3? 1 Range: 0.0-3.0 Comments: C-Reactive Protein (CRP) provides useful information for thediagnosis, therapy and monitoring of inflammatory processesand associated diseases. For the evaluation of Relative Riskfor Cardiovascular Dise ase, a High Sensitivity CRP (HSCRP)should be ordered. :25 TROP < 0.02 ng/mL (Normal) Comments: 'TROP' Serial specimen #1, #2, #3, or #4: INT'CKMB' Serial Specimen #1, #2 or #3? 1 Comments: TROPONIN-I EXPECTED VALUES <0.05 NEGATIVE0.06 - 0.59 AT RISK OF IL> OR = 0.60 SUGGEST IL :32 URINE SHANI CULTURE (MICHAEL Comments: PATIENT NOT FASTINGPERFORMED BY: FundedByMeCoRobert Wood Johnson [facility] Hospital SomersetCfcflh0491 [facility] [id number] Information: SRC:UR [id number] COL COUNT) (57404) Result 1 MUG (Normal) Comments: Mixed urogenital flora25,000-50,000 colony forming units per mL Urine Final report (Normal) Culture,Comprehensive :14 Urinalysis, Office (05446) UA - LEUKOCYTE ESTERASE Negative (Normal) UA - NITRITE Negative (Normal) URINE UROBILINGN MICHAEL TIMED Normal mg/dL (Normal) UA - PROTEIN Negative mg/dL (Normal) UA - PH 5.0 (Normal) Comments: 5.5 UA - BLOOD Negative (Normal) UA - SPECIFIC GRAVITY 1.030 (Abnormal) UA - KETONES Negative mg/dL (Normal) UA - BILIRUBIN Negative (Normal) UA - GLUCOSE Negative (Normal) :51 HgA1C , Office (28805) HgA1C , Office 6.1 % (Normal) Range: 4.6 - 7.1 :16 URINE SHANI CULTURE-MICHAEL COL Comments: PATIENT NOT FASTINGPERFORMED BY: [facility] Qrbzxv0940 [facility] [id number] Information: SRC:UR [id number] COUNT (05707) Result 1 ECV (Abnormal) Comments: Escherichia coli, identified by an automated biochemical system.Greater than 100,000 colony forming units per mL S = Susceptible; I = Intermediate; R = Resistant P = Posi tive; N = Negative MICS are expressed in micrograms per mL Antibiotic RSLT#1 RSLT#2 RSLT#3 RSLT#4Amoxicillin/Clavulanic Acid IAmpicillin RCef epime SCeftriaxone SCefuroxime SCephalothin ICiprofloxacin SErtapenem SGentamicin SImipenem SLevofloxacin SNitrofurantoin SPiperacillin RTetracycline STobramycin STrimethoprim/Sulfa S Urine Final report Culture,Comprehensi (Abnormal) ve 91-Cei-993766:59 Urinalysis, Office (72495) UA - LEUKOCYTE ESTERASE Small (Normal) UA - NITRITE Negative (Normal) URINE UROBILINGN MICHAEL TIMED 2 mg/dL (Normal) UA - PROTEIN Negative mg/dL (Normal) UA - PH 6.5 (Normal) UA - BLOOD Hemolyzed Small (Normal) UA - SPECIFIC GRAVITY 1.025 (Normal) UA - KETONES Negative mg/dL (Normal) UA - BILIRUBIN Negative (Normal) UA - GLUCOSE Negative (Normal) :33 HgA1C , Office (47064) HgA1C , Office 6.1 % (Normal) Range: 4.6 - 7.1 :33 Blood Glucose , Office (78019) Blood Glucose , Office 144 (Normal) Comments: non-fasting 64-Zwd-040471:24 Microscopic Examination Comments: PATIENT WAS FASTINGPERFORMED BY: [employer]Like [facility] [id number] Bacteria Few (Normal) Mucus Threads Present (Normal) Epithelial Cells (non renal) >10 {/hpf} (Abnormal) Range: 0 - 10 RBC 0-2 {/hpf} (Normal) Range: 0 - 2 WBC 0-5 {/hpf} (Normal) Range: 0 - 5 :48 TSH (65267) Comments: PATIENT WAS FASTINGPERFORMED BY: [employer]Like [facility] [id number] TSH 3.000 {uIU/mL} (Normal) Range: 0.450-4.500 :48 LIPID PANEL (59577) Comments: PATIENT WAS FASTINGPERFORMED BY: [employer]Like [facility] [id number] LDL/HDL Ratio 2.8 {ratio_units} (Normal) Range: 0.0-3.2 LDL Cholesterol Calc 105 mg/dL (Abnormal) Range: 0-99 VLDL Cholesterol Leonel 26 mg/dL (Normal) Range: 5-40 HDL Cholesterol 37 mg/dL (Abnormal) Comments: According to ATP-III Guidelines, HDL-C >59 mg/dL is considered anegative risk factor for CHD. Cholesterol, Total 168 mg/dL (Normal) Range: 100-199 Triglycerides 128 mg/dL (Normal) Range: 0-149 :48 URINALYSIS, W/ MICRO (72368) Comments: PATIENT WAS FASTINGPERFORMED BY: Wan Shidao management70 [facility] [id number] Microscopic Examination See below: (Normal) Microscopic Examination MICRON (Normal) Comments: Microscopic follows if indicated. Nitrite, Urine Negative (Normal) Urobilinogen,Semi-Qn 0.2 mg/dL (Normal) Range: 0.0-1.9 Bilirubin Negative (Normal) Occult Blood Negative (Normal) Ketones Negative (Normal) Glucose Negative (Normal) Protein Negative (Normal) WBC Esterase Negative (Normal) Appearance Clear (Normal) Urine-Color Yellow (Normal) pH 6.0 (Normal) Range: 5.0-7.5 Specific [place] 1.026 (Normal) Range: 1.005-1.030 :48 MICROALBUMIN: CREATININE RATIO Comments: PATIENT WAS FASTINGPERFORMED BY: Wan Shidao management70 [facility] [id number] (61817) AND (15933) Microalb/Creat Ratio 3.5 {mg/g_creat} (Normal) Range: 0.0-30.0 Microalbumin, Urine 5.6 ug/mL (Normal) Range: 0.0-17.0 Creatinine, Urine 158.6 mg/dL (Normal) Range: 15.0-328.0 :48 METABOLIC PANEL, COMPREHENSIVE Comments: PATIENT WAS FASTINGPERFORMED BY: MobileHandshake6370 [facility]orD[facility] [id number] (18550) ALT (SGPT) 26 [iU]/L (Normal) Range: 0-32 Alkaline Phosphatase, S 104 [iU]/L (Normal) Range: 39-117 AST (SGOT) 26 [iU]/L (Normal) Range: 0-40 Bilirubin, Total 0.6 mg/dL (Normal) Range: 0.0-1.2 A/G Ratio 1.9 (Normal) Range: 1.1-2.5 Globulin, Total 2.3 g/dL (Normal) Range: 1.5-4.5 Albumin, Serum 4.4 g/dL (Normal) Range: 3.5-5.5 Protein, Total, Serum 6.7 g/dL (Normal) Range: 6.0-8.5 Calcium, Serum 9.4 mg/dL (Normal) Range: 8.7-10.2 Carbon Dioxide, Total 22 mmol/L (Normal) Range: 18-29 Comments: Please note reference interval change Chloride, Serum 104 mmol/L (Normal) Range: 97-108 Potassium, Serum 4.5 mmol/L (Normal) Range: 3.5-5.2 Sodium, Serum 142 mmol/L (Normal) Range: 134-144 BUN/Creatinine Ratio 14 (Normal) Range: 9-23 eGFR If Africn Am 79 mL/min/1.73 (Normal) eGFR If NonAfricn Am 69 mL/min/1.73 (Normal) Creatinine, Serum 0.93 mg/dL (Normal) Range: 0.57-1.00 BUN 13 mg/dL (Normal) Range: 6-24 Glucose, Serum 100 mg/dL (Abnormal) Range: 65-99 31-Hwp-58695:48 CBC WITH MANUAL DIFF Comments: PATIENT WAS FASTINGPERFORMED BY: LabCoRobert Wood Johnson [facility] Hospital SomersetUrfsav5047 [facility] [id number] Information: [id number] (43566) Immature Grans (Abs) 0.0 {x10E3/uL} (Normal) Range: 0.0-0.1 Immature Granulocytes 0 % (Normal) Range: 0-2 Baso (Absolute) 0.0 {x10E3/uL} (Normal) Range: 0.0-0.2 Eos (Absolute) 0.2 {x10E3/uL} (Normal) Range: 0.0-0.4 Monocytes(Absolute) 0.5 {x10E3/uL} (Normal) Range: 0.1-0.9 Lymphs (Absolute) 2.4 {x10E3/uL} (Normal) Range: 0.7-3.1 Neutrophils (Absolute) 2.1 {x10E3/uL} (Normal) Range: 1.4-7.0 Basos 0 % (Normal) Range: 0-3 Eos 4 % (Normal) Range: 0-5 Monocytes 10 % (Normal) Range: 4-12 Lymphs 46 % (Normal) Range: 14-46 Neutrophils 40 % (Normal) Range: 40-74 Platelets 210 {x10E3/uL} (Normal) Range: 150-379 Comments: Please note reference interval change RDW 13.6 % (Normal) Range: 12.3-15.4 MCHC 33.1 g/dL (Normal) Range: 31.5-35.7 MCH 28.3 pg (Normal) Range: 26.6-33.0 MCV 86 fL (Normal) Range: 79-97 Hematocrit 41.4 % (Normal) Range: 34.0-46.6 Hemoglobin 13.7 g/dL (Normal) Range: 11.1-15.9 RBC 4.84 {x10E6/uL} (Normal) Range: 3.77-5.28 WBC 5.1 {x10E3/uL} (Normal) Range: 3.4-10.8 :41 HEPATIC FUNCTION PANEL Comments: send to dr sánchez; PATIENT WAS FASTINGPERFORMED BY: My Computer WorksRobert Wood Johnson University Hospital SomersetNagxed4041 [facility] [id number] (12880) ALT (SGPT) 25 [iU]/L (Normal) Range: 0-32 AST (SGOT) 21 [iU]/L (Normal) Range: 0-40 Alkaline Phosphatase, S 103 [iU]/L (Normal) Range: 39-117 Bilirubin, Direct 0.16 mg/dL (Normal) Range: 0.00-0.40 Bilirubin, Total 0.8 mg/dL (Normal) Range: 0.0-1.2 Albumin, Serum 4.7 g/dL (Normal) Range: 3.5-5.5 Protein, Total, Serum 7.1 g/dL (Normal) Range: 6.0-8.5 :41 LIPID PANEL (56194) Comments: send to dr sánchez; PATIENT WAS FASTINGPERFORMED BY: My Computer WorksMelissa Ville 7248570 [facility] [id number] Information: [id number] 1 LDL Cholesterol Calc 104 mg/dL (Abnormal) Range: 0-99 LDL/HDL Ratio 2.7 {ratio_units} (Normal) Range: 0.0-3.2 HDL Cholesterol 39 mg/dL (Abnormal) Comments: According to ATP-III Guidelines, HDL-C >59 mg/dL is considered anegative risk factor for CHD. VLDL Cholesterol Leonel 20 mg/dL (Normal) Range: 5-40 Triglycerides 100 mg/dL (Normal) Range: 0-149 Cholesterol, Total 163 mg/dL (Normal) Range: 100-199 78-Gth-26463:47 HgA1C , Office (55369) HgA1C , Office 5.7 % (Normal) Range: 4.6 - 7.1 :47 Blood Glucose , Office (79285) Blood Glucose , Office 142 (Normal) :18 Microscopic Examination Comments: PATIENT WAS FASTINGPERFORMED BY: [facility] Brqdcj6895 Agu[address]era RoadDublin [place] [id number] Bacteria None seen (Normal) Mucus Threads Present (Normal) Epithelial Cells (non renal) 0-10 {/hpf} (Normal) Range: 0 - 10 RBC None seen {/hpf} (Normal) Range: 0 - 3 WBC 0-5 {/hpf} (Normal) Range: 0 - 5 :18 Vitamin D Hydroxy (58972) Comments: PATIENT WAS FASTINGPERFORMED BY: [facility] [id number]Dublin [place] [id number] Vitamin D, 25-Hydroxy 21.1 ng/mL (Abnormal) Range: 30.0-100.0 Comments: Vitamin D deficiency has been defined by the [place] [employer] and an Endocrine Society practice guideline as alevel of serum 25-OH vitamin D less than 20 ng/mL (1,2).The Endocrine Society went on to further define vitamin Dinsufficiency as a level between 21 and 29 ng/mL (2).1. IOM ([place] [employer]). 2010. Dietary reference intakes for calcium and D. [place]: The National Academies Press.2. Catie MF, Karon NC, Myron KESSLER, et al. Evaluation, treatment, and prevention of vitamin D deficiency: an Endocrine Society clinical practice guideline. JCEM. 2010; 96(7):1911-30. :18 TSH ([id number]) Comments: PATIENT WAS FASTINGPERFORMED BY: [facility] [id number]Dublin [place] [id number] TSH 2.340 {uIU/mL} (Normal) Range: 0.450-4.500 :18 URINALYSIS, W/ MICRO (43776) Comments: PATIENT WAS FASTINGPERFORMED BY: [facility] [id number]Dublin [place] [id number] Microscopic Examination See below: (Normal) Microscopic Examination MICRON (Normal) Comments: Microscopic follows if indicated. Nitrite, Urine Negative (Normal) Urobilinogen,Semi-Qn 0.2 mg/dL (Normal) Range: 0.0-1.9 Bilirubin Negative (Normal) Occult Blood Negative (Normal) Ketones Negative (Normal) Glucose Negative (Normal) Protein Negative (Normal) WBC Esterase Negative (Normal) Appearance Clear (Normal) pH 6.0 (Normal) Range: 5.0-7.5 Urine-Color Yellow (Normal) Specific [place] 1.024 (Normal) Range: 1.005-1.030 :18 MICROALBUMIN: CREATININE RATIO Comments: PATIENT WAS FASTINGPERFORMED BY: Wan Sh[facility] management70 CoSMo CompanyB[facility] [id number] ([id number]) AND ([id number]) Microalb/Creat Ratio 2.7 {mg/g_creat} (Normal) Range: 0.0-30.0 Creatinine, Urine 138.1 mg/dL (Normal) Range: 15.0-278.0 Microalbumin, Urine 3.7 ug/mL (Normal) Range: 0.0-17.0 :18 METABOLIC PANEL, COMPREHENSIVE Comments: PATIENT WAS FASTINGPERFORMED BY: Wan Shidao management70 [facility] [id number] (02762) ALT (SGPT) 25 [iU]/L (Normal) Range: 0-32 AST (SGOT) 23 [iU]/L (Normal) Range: 0-40 Alkaline Phosphatase, S 94 [iU]/L (Normal) Range: 39-117 Bilirubin, Total 0.6 mg/dL (Normal) Range: 0.0-1.2 A/G Ratio 2.0 (Normal) Range: 1.1-2.5 Globulin, Total 2.4 g/dL (Normal) Range: 1.5-4.5 Albumin, Serum 4.7 g/dL (Normal) Range: 3.5-5.5 Protein, Total, Serum 7.1 g/dL (Normal) Range: 6.0-8.5 Calcium, Serum 9.4 mg/dL (Normal) Range: 8.7-10.2 Carbon Dioxide, Total 23 mmol/L (Normal) Range: 19-28 Chloride, Serum 103 mmol/L (Normal) Range: 97-108 Potassium, Serum 4.1 mmol/L (Normal) Range: 3.5-5.2 Sodium, Serum 140 mmol/L (Normal) Range: 134-144 BUN/Creatinine Ratio 20 (Normal) Range: 9-23 eGFR If Africn Am 95 mL/min/1.73 (Normal) eGFR If NonAfricn Am 83 mL/min/1.73 (Normal) Creatinine, Serum 0.80 mg/dL (Normal) Range: 0.57-1.00 BUN 16 mg/dL (Normal) Range: 6-24 Glucose, Serum 92 mg/dL (Normal) Range: 65-99 :18 LIPID PANEL (72144) Comments: PATIENT WAS FASTINGPERFORMED BY: Wan Shidao management70 [place] [facility] [id number] LDL/HDL Ratio 2.8 {ratio_units} (Normal) Range: 0.0-3.2 LDL Cholesterol Calc 113 mg/dL (Abnormal) Range: 0-99 VLDL Cholesterol Leonel 24 mg/dL (Normal) Range: 5-40 HDL Cholesterol 41 mg/dL (Normal) Comments: According to ATP-III Guidelines, HDL-C >59 mg/dL is considered anegative risk factor for CHD. Cholesterol, Total 178 mg/dL (Normal) Range: 100-199 Triglycerides 121 mg/dL (Normal) Range: 0-149 :18 CBC WITH MANUAL DIFF Comments: PATIENT WAS FASTINGPERFORMED BY: Wan Shidao management70 [facility] [id number] Information: [id number] (87610) Immature Grans (Abs) 0.0 {x10E3/uL} (Normal) Range: 0.0-0.1 Baso (Absolute) 0.0 {x10E3/uL} (Normal) Range: 0.0-0.2 Immature Granulocytes 0 % (Normal) Range: 0-2 Eos (Absolute) 0.1 {x10E3/uL} (Normal) Range: 0.0-0.4 Monocytes(Absolute) 0.4 {x10E3/uL} (Normal) Range: 0.1-0.9 Lymphs (Absolute) 2.5 {x10E3/uL} (Normal) Range: 0.7-3.1 Neutrophils (Absolute) 2.1 {x10E3/uL} (Normal) Range: 1.4-7.0 Basos 0 % (Normal) Range: 0-3 Eos 2 % (Normal) Range: 0-5 Monocytes 7 % (Normal) Range: 4-12 Lymphs 49 % (Abnormal) Range: 14-46 Neutrophils 42 % (Normal) Range: 40-74 Platelets 213 {x10E3/uL} (Normal) Range: 155-379 RDW 13.2 % (Normal) Range: 12.3-15.4 MCHC 34.4 g/dL (Normal) Range: 31.5-35.7 MCH 28.9 pg (Normal) Range: 26.6-33.0 MCV 84 fL (Normal) Range: 79-97 Hematocrit 41.3 % (Normal) Range: 34.0-46.6 Hemoglobin 14.2 g/dL (Normal) Range: 11.1-15.9 RBC 4.92 {x10E6/uL} (Normal) Range: 3.77-5.28 WBC 5.1 {x10E3/uL} (Normal) Range: 3.4-10.8 :31 HgA1C , Office (39999) HgA1C , Office 5.5 % (Normal) Range: 4.6 - 7.1 :31 Blood Glucose , Office (68395) Blood Glucose , Office 113 (Normal) :23 HgA1C , Office (96492) HgA1C , Office 6.1 % (Normal) Range: 4.6 - 7.1 :23 Blood Glucose , Office (12299) Blood Glucose , Office 118 (Normal) :33 Microscopic Examination Comments: PATIENT WAS FASTINGPERFORMED BY: LabCorewell [facility]6370 [facility] [id number] Bacteria None seen (Normal) Mucus Threads Present (Normal) Epithelial Cells (non renal) 0-10 {/hpf} (Normal) Range: 0 - 10 RBC 0-3 {/hpf} (Normal) Range: 0 - 3 WBC 0-5 {/hpf} (Normal) Range: 0 - 5 :27 FECAL OCCULT HGB ASSAY- tubes sent home (12393) FECAL OCCULT HGB ASSAY, QUAL, 1-3 SIMULTANEOU negative (Normal) :33 TSH (89269) Comments: PATIENT WAS FASTINGPERFORMED BY: [employer] [facility] [id number] TSH 3.330 {uIU/mL} (Normal) Range: 0.450-4.500 :33 URINALYSIS, W/ MICRO (69367) Comments: PATIENT WAS FASTINGPERFORMED BY: [employer] [facility] [id number] Microscopic Examination See below: (Normal) Microscopic Examination MICRON (Normal) Comments: Microscopic follows if indicated. Nitrite, Urine Negative (Normal) Urobilinogen,Semi-Qn 0.2 mg/dL (Normal) Range: 0.0-1.9 Bilirubin Negative (Normal) Occult Blood Negative (Normal) Ketones Negative (Normal) Glucose Negative (Normal) Protein Negative (Normal) WBC Esterase Negative (Normal) Appearance Clear (Normal) Urine-Color Yellow (Normal) pH 7.0 (Normal) Range: 5.0-7.5 Specific [place] 1.021 (Normal) Range: 1.005-1.030 :33 MICROALBUMIN: CREATININE RATIO Comments: PATIENT WAS FASTINGPERFORMED BY: [employer] [facility] [id number] (83623) AND (95551) Microalb/Creat Ratio 1.6 {mg/g_creat} (Normal) Range: 0.0-30.0 Creatinine, Urine 154.5 mg/dL (Normal) Range: 15.0-278.0 Microalbumin, Urine 2.5 ug/mL (Normal) Range: 0.0-17.0 :33 METABOLIC PANEL, COMPREHENSIVE Comments: PATIENT WAS FASTINGPERFORMED BY: [employer] [facility] [id number] (09609) ALT (SGPT) 24 [iU]/L (Normal) Range: 0-32 AST (SGOT) 19 [iU]/L (Normal) Range: 0-40 Alkaline Phosphatase, S 93 [iU]/L (Normal) Range: 25-150 Bilirubin, Total 0.6 mg/dL (Normal) Range: 0.0-1.2 A/G Ratio 1.8 (Normal) Range: 1.1-2.5 Globulin, Total 2.6 g/dL (Normal) Range: 1.5-4.5 Albumin, Serum 4.7 g/dL (Normal) Range: 3.5-5.5 Calcium, Serum 9.4 mg/dL (Normal) Range: 8.7-10.2 Protein, Total, Serum 7.3 g/dL (Normal) Range: 6.0-8.5 Carbon Dioxide, Total 22 mmol/L (Normal) Range: 20-32 Comments: Effective August 22, 2012, the reference interval for Carbon Dioxide, Total will be changing to: 0 - 7 days 18 - 28 8 - 30 days 17 - 27 31 d - 5 months 15 - 26 6 m - up to 1 year 15 - 25 1 - 12 years 17 - 26 > 12 years 19 - 28 Chloride, Serum 103 mmol/L (Normal) Range: 97-108 Potassium, Serum 4.2 mmol/L (Normal) Range: 3.5-5.2 Sodium, Serum 140 mmol/L (Normal) Range: 134-144 BUN/Creatinine Ratio 15 (Normal) Range: 9-23 eGFR If Africn Am 87 mL/min/1.73 (Normal) eGFR If NonAfricn Am 75 mL/min/1.73 (Normal) Creatinine, Serum 0.87 mg/dL (Normal) Range: 0.57-1.00 BUN 13 mg/dL (Normal) Range: 6-24 Glucose, Serum 105 mg/dL (Abnormal) Range: 65-99 03-Esm-139097:33 LIPID PANEL (25688) Comments: PATIENT WAS FASTINGPERFORMED BY: LabCoRobert Wood Johnson University Hospital SomersetZpqnyr6848 [facility] [id number] LDL Cholesterol Calc 115 mg/dL (Abnormal) Range: 0-99 LDL/HDL Ratio 2.9 {ratio_units} (Normal) Range: 0.0-3.2 HDL Cholesterol 39 mg/dL (Abnormal) Comments: According to ATP-III Guidelines, HDL-C >59 mg/dL is considered anegative risk factor for CHD. VLDL Cholesterol Leonel 32 mg/dL (Normal) Range: 5-40 Cholesterol, Total 186 mg/dL (Normal) Range: 100-199 Triglycerides 160 mg/dL (Abnormal) Range: 0-149 75-Cwi-848831:33 CBC WITH MANUAL DIFF Comments: PATIENT WAS FASTINGPERFORMED BY: DAVID LabCoRobert Wood Johnson University Hospital SomersetPtpfyh3408 [facility] [id number] Information: [id number] (10663) Immature Grans (Abs) 0.0 {x10E3/uL} (Normal) Range: 0.0-0.1 Immature Granulocytes 0 % (Normal) Range: 0-2 Baso (Absolute) 0.0 {x10E3/uL} (Normal) Range: 0.0-0.2 Eos (Absolute) 0.1 {x10E3/uL} (Normal) Range: 0.0-0.4 Monocytes(Absolute) 0.4 {x10E3/uL} (Normal) Range: 0.1-1.0 Lymphs (Absolute) 2.5 {x10E3/uL} (Normal) Range: 0.7-4.5 Neutrophils (Absolute) 4.5 {x10E3/uL} (Normal) Range: 1.8-7.8 Basos 0 % (Normal) Range: 0-3 Eos 1 % (Normal) Range: 0-7 Monocytes 5 % (Normal) Range: 4-13 Lymphs 33 % (Normal) Range: 14-46 Neutrophils 61 % (Normal) Range: 40-74 Platelets 236 {x10E3/uL} (Normal) Range: 140-415 RDW 13.6 % (Normal) Range: 12.3-15.4 MCHC 32.8 g/dL (Normal) Range: 31.5-35.7 MCH 27.9 pg (Normal) Range: 26.6-33.0 MCV 85 fL (Normal) Range: 79-97 Hematocrit 43.0 % (Normal) Range: 34.0-46.6 Hemoglobin 14.1 g/dL (Normal) Range: 11.1-15.9 RBC 5.05 {x10E6/uL} (Normal) Range: 3.77-5.28 WBC 7.5 {x10E3/uL} (Normal) Range: 4.0-10.5 :33 Vitamin D Hydroxy (83937) Comments: PATIENT WAS FASTINGPERFORMED BY: LabCoRobert Wood Johnson University Hospital SomersetNlbgio5817 [facility] [id number] Vitamin D, 25-Hydroxy 46.4 ng/mL (Normal) Range: 30.0-100.0 Comments: Vitamin D deficiency has been defined by the Jemison ofGrand [facility] Joint Township District Memorial Hospitalcine and an Endocrine Society practice guideline as alevel of serum 25-OH vitamin D less than 20 ng/mL (1,2).The Endocrine Society went on to further define vitamin Dinsufficiency as a level between 21 and 29 ng/mL (2).1. IOM (Jemison of Medicine). 2010. Dietary reference intakes for calcium and D. [place]: The National Academies Press.2. Catie MF, Karon ACEVEDO, Myron KESSLER, et al. Evaluation, treatment, and prevention of vitamin D deficiency: an Endocrine Society clinical practice guideline. JCEM. 2010; 96(7):1911-30. :58 HgA1C , Office (94948) HgA1C , Office 6.0 % (Normal) Range: 4.6 - 7.1 :58 Blood Glucose , Office (15691) Blood Glucose , Office 92 (Normal) :59 HgA1C , Office (71541) HgA1C , Office 5.5 % (Normal) Range: 4.6 - 7.1 :59 Blood Glucose , Office (86303) Blood Glucose , Office 105 (Normal) :40 LIPID PANEL (12578) Comments: PATIENT WAS FASTINGPERFORMED BY: LabCoRobert Wood Johnson [facility] Hospital SomersetRbrtjq9836 [facility] [id number] LDL Cholesterol Calc 144 mg/dL (Abnormal) Range: 0-99 LDL/HDL Ratio 3.1 {ratio_units} (Normal) Range: 0.0-3.2 VLDL Cholesterol Leonel 24 mg/dL (Normal) Range: 5-40 HDL Cholesterol 46 mg/dL (Normal) Comments: According to ATP-III Guidelines, HDL-C >59 mg/dL is considered anegative risk factor for CHD. Triglycerides 118 mg/dL (Normal) Range: 0-149 Cholesterol, Total 214 mg/dL (Abnormal) Range: 100-199 8-Inz-643895:40 TSH (79459) Comments: PATIENT WAS FASTINGPERFORMED BY: My Computer WorksRobert Wood Johnson University Hospital SomersetFoxfab0464 [facility] [id number] TSH 2.430 {uIU/mL} (Normal) Range: 0.450-4.500 1-Nnd-903185:40 URINALYSIS, W/ MICRO (71688) Comments: PATIENT WAS FASTINGPERFORMED BY: My Computer WorksRobert Wood Johnson University Hospital SomersetDflovy4058 [facility] [id number] Microscopic Examination See below: (Normal) Microscopic Examination MICRON (Normal) Comments: Microscopic follows if indicated. Nitrite, Urine Negative (Normal) Urobilinogen,Semi-Qn 0.2 mg/dL (Normal) Range: 0.0-1.9 Bilirubin Negative (Normal) Occult Blood Negative (Normal) Ketones Negative (Normal) Glucose Negative (Normal) Protein Negative (Normal) WBC Esterase Negative (Normal) Appearance Clear (Normal) Urine-Color Yellow (Normal) pH 5.5 (Normal) Range: 5.0-7.5 Specific [place] 1.022 (Normal) Range: 1.005-1.030 0-Mnv-652929:40 MICROALBUMIN: CREATININE RATIO Comments: PATIENT WAS FASTINGPERFORMED BY: My Computer WorksRobert Wood Johnson University Hospital SomersetKidgxm9788 [facility] [id number] (45760) AND (00942) Microalb/Creat Ratio 2.2 {mg/g_creat} (Normal) Range: 0.0-30.0 Creatinine, Urine 124.7 mg/dL (Normal) Range: 15.0-278.0 Microalbumin, Urine 2.7 ug/mL (Normal) Range: 0.0-17.0 3-Yzr-968293:40 METABOLIC PANEL, COMPREHENSIVE Comments: PATIENT WAS FASTINGPERFORMED BY: FundedByMeCorewell Health [facility] Hospital6370 [facility] [id number] (50765) ALT (SGPT) 27 [iU]/L (Normal) Range: 0-32 AST (SGOT) 24 [iU]/L (Normal) Range: 0-40 Alkaline Phosphatase, S 86 [iU]/L (Normal) Range: 25-150 Bilirubin, Total 0.6 mg/dL (Normal) Range: 0.0-1.2 A/G Ratio 1.7 (Normal) Range: 1.1-2.5 Globulin, Total 2.7 g/dL (Normal) Range: 1.5-4.5 Albumin, Serum 4.5 g/dL (Normal) Range: 3.5-5.5 Protein, Total, Serum 7.2 g/dL (Normal) Range: 6.0-8.5 Calcium, Serum 9.3 mg/dL (Normal) Range: 8.7-10.2 Carbon Dioxide, Total 22 mmol/L (Normal) Range: 20-32 Chloride, Serum 102 mmol/L (Normal) Range: 97-108 Potassium, Serum 4.0 mmol/L (Normal) Range: 3.5-5.2 Sodium, Serum 140 mmol/L (Normal) Range: 134-144 BUN/Creatinine Ratio 20 (Normal) Range: 9-23 eGFR If Africn Am 93 mL/min/1.73 (Normal) eGFR If NonAfricn Am 81 mL/min/1.73 (Normal) Creatinine, Serum 0.82 mg/dL (Normal) Range: 0.57-1.00 BUN 16 mg/dL (Normal) Range: 6-24 Glucose, Serum 119 mg/dL (Abnormal) Range: 65-99 5-Lpv-216210:40 CBC WITH MANUAL DIFF Comments: PATIENT WAS FASTINGPERFORMED BY: LabCoRobert Wood Johnson University Hospital SomersetSbqnhk8380 [facility] [id number] Information: [id number] (72965) Immature Grans (Abs) 0.0 {x10E3/uL} (Normal) Range: 0.0-0.1 Immature Granulocytes 0 % (Normal) Range: 0-2 Baso (Absolute) 0.0 {x10E3/uL} (Normal) Range: 0.0-0.2 Eos (Absolute) 0.2 {x10E3/uL} (Normal) Range: 0.0-0.4 Monocytes(Absolute) 0.4 {x10E3/uL} (Normal) Range: 0.1-1.0 Lymphs (Absolute) 2.2 {x10E3/uL} (Normal) Range: 0.7-4.5 Neutrophils (Absolute) 3.2 {x10E3/uL} (Normal) Range: 1.8-7.8 Basos 0 % (Normal) Range: 0-3 Eos 3 % (Normal) Range: 0-7 Monocytes 7 % (Normal) Range: 4-13 Lymphs 36 % (Normal) Range: 14-46 Neutrophils 54 % (Normal) Range: 40-74 Platelets 222 {x10E3/uL} (Normal) Range: 140-415 RDW 13.6 % (Normal) Range: 12.3-15.4 MCHC 33.0 g/dL (Normal) Range: 31.5-35.7 MCH 28.5 pg (Normal) Range: 26.6-33.0 MCV 86 fL (Normal) Range: 79-97 Hematocrit 41.5 % (Normal) Range: 34.0-46.6 Hemoglobin 13.7 g/dL (Normal) Range: 11.1-15.9 RBC 4.81 {x10E6/uL} (Normal) Range: 3.77-5.28 WBC 5.9 {x10E3/uL} (Normal) Range: 4.0-10.5 5-Zwz-250304:40 Microscopic Examination Comments: PATIENT WAS FASTINGPERFORMED BY: AudingoUNC Health [facility] [id number] Bacteria None seen (Normal) Mucus Threads Present (Normal) Epithelial Cells (non renal) 0-10 {/hpf} (Normal) Range: 0 - 10 RBC None seen {/hpf} (Normal) Range: 0 - 3 WBC 0-5 {/hpf} (Normal) Range: 0 - 5 :59 HgA1C , Office (58336) HgA1C , Office 5.8 % (Normal) Range: 4.6 - 7.1 :59 Blood Glucose , Office (45386) Blood Glucose , Office 137 (Normal) :50 URINE SHANI CULTURE (MICHAEL Comments: PATIENT NOT FASTINGPERFORMED BY: FandiumRobert Wood Johnson University Hospital SomersetFauote6338 [employer] [facility] [id number] Information: SRC:UR [id number] COL COUNT) (03655) Result 1 MUG (Normal) Comments: Mixed urogenital flora10,000-25,000 colony forming units per mL Urine Final report (Normal) Culture,Comprehensive 09-Oct-20118:53 Urinalysis, Office (00636) UA - BILIRUBIN Large (Normal) UA - BLOOD Negative (Normal) UA - GLUCOSE Negative (Normal) UA - KETONES Negative mg/dL (Normal) UA - LEUKOCYTE ESTERASE Negative (Normal) UA - NITRITE Negative (Normal) UA - PH 6.0 (Normal) UA - PROTEIN Negative mg/dL (Normal) UA - SPECIFIC GRAVITY 1.025 (Normal) URINE UROBILINGN MICHAEL TIMED Normal mg/dL (Normal) 96-Jxb-735378:17 Microscopic Examination Comments: PATIENT WAS FASTINGPERFORMED BY: LabCorewell Health Green[facility] Hospital6370 [facility] [id number] Bacteria None seen (Normal) Mucus Threads Present (Normal) Epithelial Cells (non renal) 0-10 {/hpf} (Normal) Range: 0 - 10 RBC 0-3 {/hpf} (Normal) Range: 0 - 3 WBC 0-5 {/hpf} (Normal) Range: 0 - 5 54-Tkl-586391:32 L/S SPINE,MIN 4 VIEWS Radiology Report See Note (Normal) Comments: PROCEDURE: X-RAY - LUMBAR SPINE REASON FOR EXAM: Female, 55 years old. Two-month history of low backandbilateral lower extremity pain. TECHNIQUE: Five views of the lumbar spine were obtained. COM PARISON: None FINDINGS:Normal lumbar lordosis. There is no substantial scoliosis. T12-L1: Normal disc height. Normal endplates. Normal alignment of thevertebrae. L1-2: Normal disc height. Normal en dplates. Normal alignment of thevertebrae. L2-3: There is a mild degree of disk space narrowing with anteriorspondylosis. L3-4: There is a mild degree of disk space narrowing with anteriorspondylosis. L4-5: There is mild degree of anterior spondylosis and facet jointosteoarthritis. L5-S1: There is evidence of facet joint osteoarthritis. The soft tissue structures are unremarkable. IMPRESSION:Degen erative changes of the spine, as detailed above. Signed:Ross Saxena M.D.September 24, 2011 at 3:23:12 PM [id number] Signed GP/GP If you are the referring physician and would like t o consult with theradiologist who provided this interpretation, please contact Marcelo Choudhury at [phone]. If this radiologist is unavailable, youwill be directed to another radiologist to assist. If you are a patient with a question regarding this report, pleasecontactyour referring physician directly. Professional Interpretation Provided By: [employer] Phone ,Fax Dictated on 09/24/11 1000 by Odessa VIDALES,AdamriBrandyranscribed on 09/24/11 1530 by ITS IMPORTSign by Odessa VIDALES,Ross on 09/24/11 1530 Sign by: Ross Saxena MD 44-Onu-971064:17 Hemoglobin Glyclated (HGB A1C) Comments: PATIENT WAS FASTINGPERFORMED BY: MediaXstreamDuke [facility] Hospital [id number] (74378) Hemoglobin A1c 5.6 % (Normal) Range: 4.8-5.6 Comments: . Increased risk for diabetes: 5.7 - 6.4 Diabetes: >6.4 Glycemic control for adults with diabetes: <7.0 90-Dsl-980418:17 LIPID PANEL (64039) Comments: PATIENT WAS FASTINGPERFORMED BY: MediaXstreamDuke [facility] Hospital [id number] LDL/HDL Ratio 3.2 {ratio_units} (Normal) Range: 0.0-3.2 LDL Cholesterol Calc 126 mg/dL (Abnormal) Range: 0-99 VLDL Cholesterol Leonel 30 mg/dL (Normal) Range: 5-40 HDL Cholesterol 40 mg/dL (Normal) Comments: According to ATP-III Guidelines, HDL-C >59 mg/dL is considered anegative risk factor for CHD. Triglycerides 151 mg/dL (Abnormal) Range: 0-149 Cholesterol, Total 196 mg/dL (Normal) Range: 100-199 53-Qfo-234271:17 TSH (80359) Comments: PATIENT WAS FASTINGPERFORMED BY: MediaXstreamD[facility] [id number] TSH 2.330 {uIU/mL} (Normal) Range: 0.450-4.500 62-Duo-711302:17 URINALYSIS, W/ MICRO (21615) Comments: PATIENT WAS FASTINGPERFORMED BY: [facility]6370 [facility] [id number] Microscopic Examination See below: (Normal) Microscopic Examination MICRON (Normal) Comments: Microscopic follows if indicated. Nitrite, Urine Negative (Normal) Urobilinogen,Semi-Qn 0.2 mg/dL (Normal) Range: 0.0-1.9 Bilirubin Negative (Normal) Occult Blood Negative (Normal) Ketones Negative (Normal) Glucose Negative (Normal) Protein Negative (Normal) WBC Esterase Negative (Normal) Appearance Clear (Normal) Urine-Color Yellow (Normal) pH 5.0 (Normal) Range: 5.0-7.5 Specific [place] 1.022 (Normal) Range: 1.005-1.030 32-Sek-588245:17 MICROALBUMIN: CREATININE RATIO Comments: PATIENT WAS FASTINGPERFORMED BY: My Computer WorksRobert Wood Johnson University Hospital SomersetQerueg8309 [facility] [id number] (77729) AND (15685) Microalb/Creat Ratio 2.4 {mg/g_creat} (Normal) Range: 0.0-30.0 Microalbumin, Urine 3.0 ug/mL (Normal) Range: 0.0-17.0 Creatinine, Urine 125.5 mg/dL (Normal) Range: 15.0-278.0 05-Rxu-440208:17 METABOLIC PANEL, COMPREHENSIVE Comments: PATIENT WAS FASTINGPERFORMED BY: My Computer WorksRobert Wood Johnson University Hospital SomersetJweegn4443 [facility] [id number] (21004) ALT (SGPT) 18 [iU]/L (Normal) Range: 0-40 AST (SGOT) 21 [iU]/L (Normal) Range: 0-40 Alkaline Phosphatase, S 81 [iU]/L (Normal) Range: 25-150 Bilirubin, Total 0.7 mg/dL (Normal) Range: 0.0-1.2 A/G Ratio 1.9 (Normal) Range: 1.1-2.5 Globulin, Total 2.4 g/dL (Normal) Range: 1.5-4.5 Albumin, Serum 4.6 g/dL (Normal) Range: 3.5-5.5 Protein, Total, Serum 7.0 g/dL (Normal) Range: 6.0-8.5 Calcium, Serum 9.5 mg/dL (Normal) Range: 8.7-10.2 Carbon Dioxide, Total 21 mmol/L (Normal) Range: 20-32 Chloride, Serum 104 mmol/L (Normal) Range: 97-108 Potassium, Serum 4.3 mmol/L (Normal) Range: 3.5-5.2 Sodium, Serum 139 mmol/L (Normal) Range: 134-144 BUN/Creatinine Ratio 13 (Normal) Range: 9-23 eGFR If Africn Am 89 mL/min/1.73 (Normal) eGFR If NonAfricn Am 77 mL/min/1.73 (Normal) Creatinine, Serum 0.86 mg/dL (Normal) Range: 0.57-1.00 BUN 11 mg/dL (Normal) Range: 6-24 Glucose, Serum 100 mg/dL (Abnormal) Range: 65-99 08-Zxw-784859:17 CBC WITH MANUAL DIFF Comments: PATIENT WAS FASTINGPERFORMED BY: LabCoRobert Wood Johnson [facility] Hospital SomersetNxyncx2415 [facility] [id number] Information: [id number] (60387) Immature Grans (Abs) 0.0 {x10E3/uL} (Normal) Range: 0.0-0.1 Immature Granulocytes 0 % (Normal) Range: 0-2 Baso (Absolute) 0.0 {x10E3/uL} (Normal) Range: 0.0-0.2 Eos (Absolute) 0.2 {x10E3/uL} (Normal) Range: 0.0-0.4 Monocytes(Absolute) 0.4 {x10E3/uL} (Normal) Range: 0.1-1.0 Lymphs (Absolute) 2.3 {x10E3/uL} (Normal) Range: 0.7-4.5 Neutrophils (Absolute) 3.0 {x10E3/uL} (Normal) Range: 1.8-7.8 Basos 0 % (Normal) Range: 0-3 Eos 3 % (Normal) Range: 0-7 Monocytes 7 % (Normal) Range: 4-13 Lymphs 39 % (Normal) Range: 14-46 Neutrophils 51 % (Normal) Range: 40-74 Platelets 231 {x10E3/uL} (Normal) Range: 140-415 RDW 13.2 % (Normal) Range: 12.3-15.4 MCHC 34.5 g/dL (Normal) Range: 31.5-35.7 MCH 29.0 pg (Normal) Range: 26.6-33.0 MCV 84 fL (Normal) Range: 79-97 Hematocrit 42.3 % (Normal) Range: 34.0-46.6 Hemoglobin 14.6 g/dL (Normal) Range: 11.1-15.9 RBC 5.03 {x10E6/uL} (Normal) Range: 3.77-5.28 WBC 5.8 {x10E3/uL} (Normal) Range: 4.0-10.5 :17 Vitamin D Hydroxy (04854) Comments: PATIENT WAS FASTINGPERFORMED BY: [employer] [place] [id number] Vitamin D, 25-Hydroxy 15.2 ng/mL (Abnormal) Range: 30.0-100.0 Comments: Vitamin D deficiency has been defined by the Jemison ofGrand [facility] Joint Township District Memorial Hospitalcine and an Endocrine Society practice guideline as alevel of serum 25-OH vitamin D less than 20 ng/mL (1,2).The Endocrine Society went on to further define vitamin Dinsufficiency as a level between 21 and 29 ng/mL (2).1. IOM (Jemison of Medicine). 2010. Dietary reference intakes for calcium and D. [place]: The National Academies Press.2. Catie MF, Karon [place], Myron KESSLER, et al. Evaluation, treatment, and prevention of vitamin D deficiency: an Endocrine Society clinical practice guideline. JCEM. 2010; 96(7):1911-30. :46 CK, Total+Isoenzymes, Serum Comments: PATIENT NOT FASTINGPERFORMED BY: MediaXstreamD[facility] Hospital [id number] CK-BB 0 % (Normal) CK-MB 0 % (Normal) Range: 0-3 Macro Type 1 0 % (Normal) CK-MM 100 % (Normal) Range: 97-100 Macro Type 2 0 % (Normal) Creatine Kinase,Total,Serum 82 U/L (Normal) Range: 24-173 40-Uvq-135836:00 Urinalysis, Office (09059) UA - BILIRUBIN Negative (Normal) UA - BLOOD Negative (Normal) UA - GLUCOSE Negative (Normal) UA - KETONES Negative mg/dL (Normal) UA - LEUKOCYTE ESTERASE Negative (Normal) UA - NITRITE Negative (Normal) UA - PH 5.0 (Normal) UA - PROTEIN Negative mg/dL (Normal) UA - SPECIFIC GRAVITY 1.025 (Normal) URINE UROBILINGN MICHAEL TIMED Normal mg/dL (Normal) 66-Vig-325678:49 HgA1C , Office (70575) HgA1C , Office 6.4 % (Normal) Range: 4.6 - 7.1 11-Izv-850447:49 Blood Glucose , Office (66476) Blood Glucose , Office 186 (Normal) [id number] Metabolic Panel, Basic Comments: PATIENT NOT FASTINGPERFORMED BY: [facility] [facility] [id number] Information: [id number]) Calcium, Serum 9.4 mg/dL (Normal) Range: 8.7-10.2 Carbon Dioxide, Total 20 mmol/L (Normal) Range: 20-32 Chloride, Serum 102 mmol/L (Normal) Range: 97-108 Potassium, Serum 3.9 mmol/L (Normal) Range: 3.5-5.2 Sodium, Serum 137 mmol/L (Normal) Range: 135-145 BUN/Creatinine Ratio 12 (Normal) Range: 9-23 eGFR If Africn Am 90 mL/min/1.73 (Normal) Comments: Note: A persistent eGFR <60 mL/min/1.73 m2 (3 months or more) mayindicate chronic kidney disease. An eGFR >59 mL/min/1.73 m2 with anelevated urine protein also may indicate chronic kidney disease.Calculated using CKD-EPI formula. eGFR If NonAfricn Am 78 mL/min/1.73 (Normal) Creatinine, Serum 0.85 mg/dL (Normal) Range: 0.57-1.00 BUN 10 mg/dL (Normal) Range: 6-24 Glucose, Serum 202 mg/dL (Abnormal) Range: 65-99 [id number]-Pul-[id number]:45 Urinalysis, Office (50402) UA - BILIRUBIN Small (Normal) UA - BLOOD Negative (Normal) UA - GLUCOSE Negative (Normal) UA - KETONES Small mg/dL (Normal) UA - LEUKOCYTE ESTERASE Negative (Normal) UA - NITRITE Negative (Normal) UA - PH 5.0 (Normal) UA - PROTEIN Negative mg/dL (Normal) UA - SPECIFIC GRAVITY 1.025 (Normal) URINE UROBILINGN MICHAEL TIMED Normal mg/dL (Normal) 7-Vsi-[id number]:50 URINE SHANI CULTURE-MICHAEL COL Comments: PATIENT NOT FASTINGPERFORMED BY: [facility] [id number] Information: SRC:[facility] [place] [id number] COUNT (93448) Result 1 ECV (Normal) Comments: Escherichia coli, identified by an automated biochemical system.Greater than 100,000 colony forming units per mL S = Susceptible; I = Intermediate; R = Resistant P = Posi tive; N = Negative MICS are expressed in micrograms per mL Antibiotic RSLT#1 RSLT#2 RSLT#3 RSLT#4Amoxicillin/Clavulanic Acid IAmpicillin RCef azolin SCefepime SCeftriaxone SCefuroxime SCephalothin SCiprofloxacin SESBL NErtapenem SGentamicin SImipenem SLevofloxacin SNitrofurantoin SPiperacillin STetracycline STobramycin STrimethoprim/Sulfa S Urine Final report (Normal) Culture,Comprehensiv e 5-Qqb-023404:27 Urinalysis, Office (95209) UA - BILIRUBIN Small (Normal) UA - BLOOD Hemolyzed Large (Normal) UA - GLUCOSE Negative (Normal) UA - KETONES Negative mg/dL (Normal) UA - LEUKOCYTE ESTERASE Small (Normal) UA - NITRITE Negative (Normal) UA - PH 6.0 (Normal) UA - PROTEIN 300 mg/dL (Normal) UA - SPECIFIC GRAVITY 1.025 (Normal) URINE UROBILINGN MICHAEL TIMED Normal mg/dL (Normal) 15-Slx-560852:03 CALCIFIDIOL (94730) VIT D Comments: PATIENT NOT FASTINGPERFORMED BY: [facility] [id number] Information: [id number] 25 Vitamin D, 25-Hydroxy 28.0 ng/mL (Abnormal) Range: 32.0-100.0 Comments: Effective January 26, 2011 Vitamin D, 25-Hydroxy reference intervals will be changing to 30-100. .Recent studies consider the lower li lucio of 32.0 ng/mL to be athreshold for optimal health.Francisco Javier FOSTER. J Nutr. 2004;135(2):317-22. 70-Yfs-299309:09 KNEE,4 OR MORE VIEWS Radiology Report See Note (Normal) Comments: PROCEDURES: X-RAY - RIGHT KNEE REASON FOR EXAM: Female, 54 years old. The patient presented withmedialknee pain. TECHNIQUE: Four views of the knee. COMPARISON: None. FINDINGS:There is mild dege nerative arthrosis of the medial femorotibialcompartment. Normal lateral femorotibial compartment. Normalpatellofemoral articulation. Normal visualized distal femur. Normal visualized proximal tibia andfibula. Normal proximal tibiofibular articulation. IMPRESSION:There is a mild degree of the medial joint space narrowing. Dictated on 10/02/101408 by Odessa VIDALES,Aylinranscribed on 10/03/101323 by ITS IMPORTSign by Ross Saxena MD on 10/03/101323 Sign by: Ross Saxena MD 33-Qzr-46483:00 KNEE,4 OR MORE VIEWS Radiology Report See Note (Normal) Comments: PROCEDURES: X-RAY - LEFT KNEE REASON FOR EXAM: Female, 54 years old. The patient presents withmedialjoint space narrowing. TECHNIQUE: Four views of the knee. COMPARISON: None. FINDI NGS:Normal m edial femorotibial compartment. Normal lateral femorotibialcompartment. Normal patellofemoral articulation. Normal visualized distal femur. Normal visualized proximal tibia andfibula. Normal proxima l tibiofibular articulation. IMPRESSION:Normal x-ray examination of the knee. Dictated on 10/02/101408 by Aylin Saxena MDranscribed on 07/29/11 1324 by ITS IMPORTSign by Ross Saxena MD on 10/03/10 1325 Sign by: Ross Saxena MD 98-Fov-57762:00 RHEUMATOID FACTOR-QUANT Comments: PATIENT NOT FASTINGPERFORMED BY: [employer] [id number] [facility] [id number] BY: [address] [id number] (90998) RA Latex Turbid. 8.6 {IU/mL} (Normal) Range: 0.0-13.9 :00 PARATHORMONE (94337) Comments: PATIENT NOT FASTINGPERFORMED BY: [employer] [id number] [facility] [id number] BY: [address] [id number] PTH, Intact 23 pg/mL (Normal) Range: 15-65 :00 CALCIUM SERUM (45152) Comments: PATIENT NOT FASTINGPERFORMED BY: [employer] [id number] [facility] [id number] BY: [address] [id number] Calcium, Serum 9.4 mg/dL (Normal) Range: 8.7-10.2 CCP Antibodies IgG/IgA 3 {units} (Normal) Comments: PATIENT NOT FASTINGPERFORMED BY: [employer] [id number] [facility] [id number] BY: [address] [id number] :00 Range: 0-19 Comments: Negative <20 Weak positive 20 - 39 Moderate positive 40 - 59 Strong positive >59 29-Knf-427204:15 STEVE DIR SEMI-QL STEVE DIRECT 33 AU/mL (Normal) 66-Uil-967200:15 ANTI JO1 ANTI ABIGAIL 7 AU/mL (Normal) 12-Swp-827227:15 C-REACTIVE PROT 3.34 mg/L (Abnormal) Range: 0.0-3.0 Comments: C-Reactive Protein (CRP) provides useful information for thediagnosis, therapy and monitoring of inflammatory processesand associated diseases. For the evaluation of Relative Riskfor Cardiovascular Dise ase, a High Sensitivity CRP (HSCRP)should be ordered. :15 CPK TOTAL 112 U/L (Normal) Range: 26-192 Comments: Please note: Revised Creatinine Kinase (CK) Reference ramge effective 03/06/10. :15 ESR Comments: appt 09/29/10 SED RATE 3 mm/h (Normal) Range: 0-30 :15 TSH 3.22 {uIU/mL} (Normal) Range: 0.358-3.74 :15 VIT D,25 99641 13.3 ng/mL (Abnormal) Comments: appt 09/29/10 Range: 32.0-100.0 Comments: Recent studies consider the lower limit of 32.0 ng/mL to dory threshold for optimal health.Francisco Javier FOSTER. J Nutr. 2004;135(2):317-22.Performed at: [address] [id number]Lab Director: Hamida Boyer MD, Phone: [phone] 22-Xnz-87662:20 HEPATOBILIARY IMAGING Radiology Report See Note (Normal) Comments: CLINICAL:Female, 54 years old. The patient presents with a history of right upperquadrant pain. EXAMINATION:Hepatobiliary scan with Kinevac. TECHNIQUE:5.1 mCi of technetium labeled Choletec were given intravenously.Multipleimages of the right upper quadrant were then obtained. 1.6 mcg ofKinevacwere given intravenously at approximately 65 minutes following theinjection of Choletec. A gallbladder eje ction fraction was then obtained. COMPARISON:None. FINDINGS:There is homogeneous uptake by the liver. There is prompt excretion intothe intra-and extrahepatic biliary ducts. The gallbladder is opacifi edwithin 30 minutes. Following the injection of Kinevac, the gallbladdercontracted, with an ejection fraction of greater than 90%. IMPRESSION:Normal hepatobiliary scan with Kinevac. Dictated on 05/08 03/18 0509 by PedAdriana rodriguez MDscribed on 06/05/10 1346 by ITS IMPORTSign by Ross Saxena MD on 06/05/10 1347 Sign by: Ross Saxena MD 30-Vwb-19287:51 GALLBLADDER Radiology Report See Note (Normal) Comments: CLINICAL:54 year old female complains of abdominal pain. ABDOMINAL ULTRASOUND TECHNIQUE:Transabdominal COMPARISON:February 12, 2005 FINDINGS:There is increased echogenicity consistent with diffuse fattyi nfiltrationof the liver. There is echogenic lesion of 1.7-cm in the right hepaticlobe, region of adis hepatis. It is probably a hemangioma. It was notdemonstrated in the prior exam. There is hepato megaly with diffusehepaticenlargement. The sagittal length is 19.8-cm. There is no dilatation of the intrahepatic or extrahepatic bile ducts.Thecommon bile duct measures 4 mm. Normal gallbladder. Desi l visualized head, body and tail of the pancreas. Normal right kidney. The right kidney measures 11.4 x 6.2 x 3.4 cm.There is no pelvicalyceal dilatation of the right kidney. There is no ascites. IMPRE SSION:Hepatomegaly with fatty infiltration.Probable hepatic hemangioma, as described above. Dictated on 05/26/10 0900 by Aiyana OCASIO MDcribed on 05/27/10 1015 by ITS IMPORTSign by Meredith OCASIO MDERTO on 05/27/10 1015 Sign by: ADRIAN OCASIO MD H.PYLORI [id number] < 0.9 U/mL Range: 0.0-0.8 3:08 (Normal) Comments: Negative <0.9 Indeterminate 0.9 - 1.0 Positive >1.0Performed at: [facility] [id number] Director: Hamida Boyer MD, Phone: [phone] 24-Mbv-193790:21 FECAL OCCULT- Tubes sent home (21745) FECAL OCCULT HGB ASSAY, QUAL, 1-3 SIMULTANEOU negative (Normal) 11-Sep-20088:22 THYROID IMAGING ONLY Radiology Report See Note (Normal) Comments: Exam Number: [id number] THYROID SCAN AND UPTAKE The patient was given 299 mCi of I-123 orally. The patient wasdemonstrated to have some nodularity in the thyroid gland on theultrasound of August 20, 2008, and some irregular attenuation in thethyroid gland on the CT scan of August 09, 2008. The uptake at 24 hoursis calculated to be 8.9% which is at the lower limits of normal. Since the patient had a CT sc an with contrast about a month ago,however, this value is probably artificially low. The thyroid scansdemonstrate fairly uniform activity throughout both lobes. Both lobesappear normal in size and con figuration. A hot or cold nodule is notdemonstrated. IMPRESSION1) The thyroid scan appears essentially normal.2) Uptake is 8.9% of 24 hours but this is probably artificially lowsince the patient h ad a CT scan of the chest with contrast on August. Reported By: KEVIN YUAN M.D. 09-Gjw-508247:05 THYROID Radiology Report See Note (Normal) Comments: Exam Number: [id number] CLINICAL:52-year-old female with nodules ULTRASOUND THYROID COMPARISON:None. FINDINGS:Normal size, contour and echotexture of the right lobe of the thyroid gland, measuring 4.7 x 1.4 x 1.6 mm in length. There is 3 nodules involving the right thyroid gland: 11 x 7 x 10 mm; 11 x 6 x 11 mm; 4 x 2 x 4 mm. Normal size, contour and echotexture of the left lobe of the thyroid gland, me asuring 5.6 x 1.4 x 1.4 cm in length. There is a 0.6 x 0.6 x0..9-cm nodule involving the upper pole. There is a 4 x 3 x 5 mm nodule in the lower pole. Normal thyroid isthmus. The isthmus measures 6 mm . There is a nodule that measures 5 x 3 x4mm; and second nodule that measures 3 mm. There is no perithyroid pathology. IMPRESSION:Several nodules involving both thyroid glands. The differential includ es both benign as well as malignant entities. Correlation with nuclear medicine thyroid study is recommended. Reported By: DARCY MURRIETA M.D. :4 FREE T3 3.1 pg/mL (Normal) Range: 2.18-3.98 5 :4 T4 FREE DIRECT 0.9 ng/dL (Normal) Range: 0.76-1.146 5 :4 TSH 1.62 {uIU/mL} Range: 0.358-3.74 5 (Normal) :14 CHEST W/WO CONTRAST Radiology Report See Note (Normal) Comments: Exam Number: [id number] CLINICAL:52-year-old female with swollen areas at base of neck, anteriorly. Possible supraclavicular masses. 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 No history of cancer or diabetes. No chest symptoms. CT CHEST WITH AND WITHOUT CONTRAST COMPARISON:None. TECHNIQUE:High resolution tr ansaxial imaging was performed without and with following the intravenous administration of 100 ml of Isovue-300 contrast material. Axial images were obtained without contrast from the level of the mout h through the lung apices. Axial images were obtained with contrast from the level of the mouth through the upper abdomen. Then, additional delayed axial images were obtained from the mouth through th e lung apices. Sagittal and coronal reconstructions of both the arterial phase and delayed axial images were obtained. A total of 803 images were transmitted. The regions of interest were marked with BBs. FINDINGS:Normal inflation of the lungs and no demonstrated parenchymal nodule or infiltrate. Mild dependent atelectasis is noted in the posterior lower lobes. Normal pleura without pleural thicken ing, a mass lesion or calcifications. There are no pleural effusions. Normal mediastinum and pulmonary shemar without lymphadenopathy. Normal cardiac size without demonstrated pericardial fluid or thicke rajan. There are no vascular calcifications of the coronary arteries. There are no valvular calcifications. Normal main pulmonary artery with normal right and left pulmonary arteries. Normal bilateral peripheral pulmonary arteries without vascular prominence. There is no demonstrated intraluminal defect of the pulmonary arteries. Specifically, there is no demonstrated pulmonary embolus on this exami nation. Normal thoracic aorta without aneurysmal dilatation. 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 Normal thoracic esophagus. There is no lymphadenopathy of the axillary or supraclavicular lymph nodes. Normal visualized liver, spleen, gallbladder, pancreas and adrenal glands. Incidental not e is made of minimal calcification of the splenic artery. Normal visualized osseous structures. Normal visualized chest wall structures. There is no abnormal contrast enhancement. The visualized oropha rynx, the hypopharynx, and the larynx appear normal. The epiglottis, aryepiglottic folds, vallecula, and piriform sinuses appear normal. The visualized bilateral parotid glands, the bilateral submandibu lar glands, and the thyroid gland appear grossly normal. A small low density nodule cannot be excluded in the anterior aspect of the right lobe of the thyroid gland. If clinically indicated, an ultras ound of the thyroid gland could be performed for further evaluation. Scattered small cervical lymph nodes are noted at all cervical levels. In the regions of interest, underlying the BBs, there is no ev idence of a mass lesion. No significant lymph nodes are noted in these regions. Fat and fascial tissue underlie the BBs. IMPRESSION:There is no evidence of a mass lesion or prominent lymph node under lying the BBs. Only fat and fascial tissue are noted in the regions of interest. Mild dependent atelectasis in the posterior lungs. No acute pulmonary disease. Minimal calcification of the splenic art ann is incidentally noted. There is a small low-density nodule versus artifact in the anterior aspect of the right lobe of the thyroid gland. If clinically indicated, ultrasound could be performed for further evaluation. Reported By: DONTAE ESPINAL M.D. 27-Cgo-192681:47 UPPER EXT/JT ONLY (ROUTINE) Radiology Report See Note (Normal) Comments: Exam Number: [id number] MRI OF THE RIGHT SHOULDER WITHOUT CONTRAST. CLINICAL STATEMENTPain, decreased range of motion. COMPARISONNone. TECHNIQUECoronal T1 and coronal proton density fat sat, cor onal T2 fat sat,sagittal T1 and sagittal STIR and axial proton density fat satsequences were obtained through the right shoulder. FINDINGSThe infraspinatus tendon is within normal limits. There is a focalfull thickness tear of the supraspinatus tendon at the insertion. There is a focal T2 hyperintensity extending along the bursal side ofthe superficial tendon, more proximal to the insertion, whi ch likelyreflects a partial thickness bursal sided tear. The subscapularistendon and biceps tendon are within normal limits. The superior, anterior, and posterior angelina are intact. There is a s mall amount of joint fluid which extends into the bicepstendon sheath. There is also a small amount of fluid within thesubacromial, subdeltoid bursa. Degenerative changes are seen in the acromiocl avicular joint. Thereis an undersurface osteophyte. There is effacement of the subacromialfat. The bone marrow is age appropriate. The musculaturedemonstrates normal signal and morphology. IMPR ESSION1. High-grade partial thickness bursal sided tear involving the anterior fibers of the supraspinatus tendon with a focal full thickness tear at the insertion. 2. Small joint effusion. 3. Fluid within the subacromial, subdeltoid space. 4. Degenerative changes within the acromioclavicular joint with effacement of the subacromial fat. Reported By: EMELI COLEMAN M.D. 4-Ypp-176163:03 SHOULDER,MIN 2 VIEWS (MT) Radiology Report See Note (Normal) Comments: Exam Number: [id number] RIGHT SHOULDER, 4 VIEWS CLINICAL STATEMENTPain. PRIOR STUDIESNone. No acute fracture, joint dislocation or AC joint separation is shown. Joint spaces are maintained. No significa nt spurring or pathologiccalcifications. No suspicious bone lesions. Right lung apex isclear. IMPRESSIONNegative right shoulder. Reported By: LESLI CURIEL M.D. 49-Yxv-777164:15 GASTRIC EMPTYING STUDY Radiology Report See Note (Normal) Comments: Exam Number: [id number] NUCLEAR MEDICINE GASTRIC EMPTYING STUDY SOLID PHASE CLINICAL STATEMENTGastroesophageal reflux disease. COMPARISON STUDIESNone. TECHNIQUEPatient received an oral dose o f 1.1 mCi Tc 99m labeled sulfur colloidin oatmeal. Anterior and posterior imaging was acquired at 60-secondintervals for a total of 90 minutes. FINDINGSAfter 90 minutes of imaging there is no significant emptying ofgastric content. The percentage retained at 2 hours is calculated at99.6%. Findings are compatible with gastric paresis. Nogastroesophageal reflux is shown during the course of the study. IMPRESSIO NAbnormal gastric emptying of solids. At the conclusion of the study,no significant emptying of gastric content had occurred with almostcomplete retention at 2 hours. Findings are compatible withgastroparesis. Reported By: LESLI CURIEL M.D. 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 Indication: Diabetes mellitus type II, controlled, with no complications Hypercholesteremia : Cholesterol mgmt Indication: Hypercholesteremia GERD (gastroesophageal reflux disease) : GERD Education Indication: GERD (gastroesophageal reflux disease) Diabetes mellitus type II, controlled, with no complications : Diet, Exercise, and Wt loss Indication: Diabetes mellitus type II, controlled, with no complications Diabetes mellitus type II, controlled, with no complications : *Diabetes Education Indication: Diabetes mellitus type II, controlled, with no complications BMI 31.0-31.9,adult : Eprescribed prescriptions (G8553) Indication: BMI 31.0-31.9,adult BMI 32.0-32.9,adult : Follow up if no improvement or if symptoms worsen Indication: BMI 32.0-32.9,adult Sinus pressure : Follow up if no improvement or if symptoms worsen Indication: Sinus pressure Sinus pressure : Eprescribed prescriptions (G8553) Indication: Sinus pressure Diabetes mellitus type II, controlled, with no complications : Eprescribed prescriptions (G8553) Indication: Diabetes mellitus type II, controlled, with no complications GERD (gastroesophageal reflux disease) : Follow up in 6 weeks Indication: GERD (gastroesophageal reflux disease) Diabetes mellitus type II, controlled, with no complications : Follow up in 3 months Indication: Diabetes mellitus type II, controlled, with no complications Other dysphagia : Reviewed Diagnostic Tests: saw upper gi series + and eshogram wit 13mm tab - Indication: Other dysphagia GERD (gastroesophageal reflux disease) : GERD Education Indication: GERD (gastroesophageal reflux disease) Hypercholesteremia : Cholesterol mgmt Indication: Hypercholesteremia Diabetes mellitus type II, controlled, with no complications : Diabetes and Exercise: Preventing Low Blood Sugar: blood sugar Indication: Diabetes mellitus type II, controlled, with no complications Congestion of right ear : Eprescribed prescriptions (G8553) Indication: Congestion of right ear Sore throat : Eprescribed prescriptions (G8553) Indication: Sore throat Diabetes mellitus type II, controlled, with no complications : Follow up in 3 months Indication: Diabetes mellitus type II, controlled, with no complications Hypercholesteremia : Cholesterol mgmt Indication: Hypercholesteremia GERD (gastroesophageal reflux disease) : GERD Education Indication: GERD (gastroesophageal reflux disease) Diabetes mellitus type II, controlled, with no complications : Hemoglobin A1c Test *: a1c test Indication: Diabetes mellitus type II, controlled, with no complications Diabetes mellitus type II, controlled, with no complications : Eprescribed prescriptions (G8553) Indication: Diabetes mellitus type II, controlled, with no complications Impaired fasting glucose : Follow up in 3 weeks or keep current mar Indication: Impaired fasting glucose Impaired fasting glucose : Eprescribed prescriptions (G8553) Indication: Impaired fasting glucose Type II diabetes mellitus, well controlled : Follow up in 1 week Indication: Type II diabetes mellitus, well controlled Abscess, abdomen : 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 Indication: Abscess, abdomen Type II diabetes mellitus, well controlled : Eprescribed prescriptions (G8553) Indication: Type II diabetes mellitus, well controlled Abscess, abdomen : 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- [facility] [place] Indication: Abscess, abdomen Type II diabetes mellitus, well controlled : Follow up in 2 weeks Indication: Type II diabetes mellitus, well controlled Non-smoker : Eprescribed prescriptions (G8553) Indication: Non-smoker Abscess, abdomen : Reviewed Lab Indication: Abscess, abdomen Abscess, abdomen : Reviewed Diagnostic Tests Indication: Abscess, abdomen Cellulitis of skin : Eprescribed prescriptions (G8553) Indication: Cellulitis of skin Abscess, abdomen : I/D Cyst/Abscess- complicated with many park and large Indication: Abscess, abdomen Cellulitis of skin : Reviewed Diagnostic Tests Indication: Cellulitis of skin Abscess, abdomen : Eprescribed prescriptions (G8553) Indication: Abscess, abdomen Abscess, abdomen : Follow up tomorrow am-early Indication: Abscess, abdomen Cellulitis of abdominal wall : Continue Current Prescription(s) Indication: Cellulitis of abdominal wall Hypercholesteremia : Cholesterol mgmt Indication: Hypercholesteremia Diabetes mellitus type II, controlled, with no complications : Eprescribed prescriptions (G8553) Indication: Diabetes mellitus type II, controlled, with no complications Diabetes mellitus type II, controlled, with no complications : Diabetes and Exercise: Preventing Low Blood Sugar: blood sugar Indication: Diabetes mellitus type II, controlled, with no complications Cellulitis of abdominal wall : Cellulitis: skin infection Indication: Cellulitis of abdominal wall Cellulitis of abdominal wall : Eprescribed prescriptions (G8553) Indication: Cellulitis of abdominal wall Insomnia, unspecified : Follow up in 1 week Indication: Insomnia, unspecified Diabetes mellitus type II, controlled, with no complications : Follow up in 3 months Indication: Diabetes mellitus type II, controlled, with no complications GERD (gastroesophageal reflux disease) : GERD Education Indication: GERD (gastroesophageal reflux disease) Hypercholesteremia : Cholesterol mgmt Indication: Hypercholesteremia Diabetes mellitus type II, controlled, with no complications : Eprescribed prescriptions (G8553) Indication: Diabetes mellitus type II, controlled, with no complications Diabetes mellitus type II, controlled, with no complications : Diabetes and Exercise: Preventing Low Blood Sugar: blood sugar Indication: Diabetes mellitus type II, controlled, with no complications GERD (gastroesophageal reflux disease) : GERD Education Indication: GERD (gastroesophageal reflux disease) Diabetes mellitus type II, controlled, with no complications : Eprescribed prescriptions (G8553) Indication: Diabetes mellitus type II, controlled, with no complications Diabetes mellitus type II, controlled, with no complications : Diabetes and Exercise: Preventing Low Blood Sugar: blood sugar Indication: Diabetes mellitus type II, controlled, with no complications Impaired fasting glucose : Reviewed Lab Indication: Impaired fasting glucose Impaired fasting glucose : Follow up in 4 months Indication: Impaired fasting glucose GERD (gastroesophageal reflux disease) : GERD Education Indication: GERD (gastroesophageal reflux disease) Hypercholesteremia : Cholesterol mgmt Indication: Hypercholesteremia Impaired fasting glucose : Eprescribed prescriptions (G8553) Indication: Impaired fasting glucose UTI symptoms : Follow up if no improvement or if symptoms worsen Indication: UTI symptoms Hypercholesteremia : Cholesterol mgmt Indication: Hypercholesteremia Diabetes mellitus type II, controlled, with no complications : Follow up in 3 months Indication: Diabetes mellitus type II, controlled, with no complications GERD (gastroesophageal reflux disease) : GERD Education Indication: GERD (gastroesophageal reflux disease) Diabetes mellitus type II, controlled, with no complications : Eprescribed prescriptions (G8553) Indication: Diabetes mellitus type II, controlled, with no complications Diabetes mellitus type II, controlled, with no complications : Diabetes and Exercise: Preventing Low Blood Sugar: blood sugar Indication: Diabetes mellitus type II, controlled, with no complications Diabetes mellitus type II, controlled, with no complications : *Diabetes Education Indication: Diabetes mellitus type II, controlled, with no complications Pre-operative examination : Eprescribed prescriptions (G8553) Indication: Pre-operative examination Pre-operative examination : Instructions for the Patient Before and After Surgery *: instructions Indication: Pre-operative examination Vitamin B12 deficiency (non anemic) : Eprescribed prescriptions (G8553) Indication: Vitamin B12 deficiency (non anemic) Neck Pain (Renamed from Cervical pain) : Follow up - Make appt after diagnostic tests Indication: Neck Pain (Renamed from Cervical pain) Abdominal pain : Follow up in 1 week Indication: Abdominal pain Chest pain : Eprescribed prescriptions (G8553) Indication: Chest pain GERD (gastroesophageal reflux disease) : GERD Education Indication: GERD (gastroesophageal reflux disease) Hypercholesteremia : Cholesterol mgmt Indication: Hypercholesteremia Diabetes mellitus type II, controlled, with no complications : Eprescribed prescriptions (G8553) Indication: Diabetes mellitus type II, controlled, with no complications Diabetes mellitus type II, controlled, with no complications : Diabetes and Exercise: Preventing Low Blood Sugar: blood sugar Indication: Diabetes mellitus type II, controlled, with no complications Cystitis, acute : Follow up if no improvement or if symptoms worsen Indication: Cystitis, acute Cystitis, acute : *UTI treatment Indication: Cystitis, acute Cystitis, acute : Water in diet, brief version Indication: Cystitis, acute GERD (gastroesophageal reflux disease) : GERD Education Indication: GERD (gastroesophageal reflux disease) Vitamin D deficiency, unspecified : Continue Current Prescription(s) Indication: Vitamin D deficiency, unspecified Diabetes mellitus type II, controlled, with no complications : Follow up in 3 months- do ekg at this visit Indication: Diabetes mellitus type II, controlled, with no complications Hypercholesteremia : Cholesterol mgmt Indication: Hypercholesteremia Diabetes mellitus type II, controlled, with no complications : Eprescribed prescriptions (G8553) Indication: Diabetes mellitus type II, controlled, with no complications Diabetes mellitus type II, controlled, with no complications : Diabetes and Exercise: Preventing Low Blood Sugar: blood sugar Indication: Diabetes mellitus type II, controlled, with no complications Diabetes mellitus type II, controlled, with no complications : Follow up in 3 months: do ekg Indication: Diabetes mellitus type II, controlled, with no complications GERD (gastroesophageal reflux disease) : GERD Education Indication: GERD (gastroesophageal reflux disease) Vitamin D deficiency, unspecified : Continue Current Prescription(s) Indication: Vitamin D deficiency, unspecified Diabetes mellitus type II, controlled, with no complications : *Diabetes Education Indication: Diabetes mellitus type II, controlled, with no complications Hypercholesteremia : Cholesterol mgmt Indication: Hypercholesteremia Diabetes mellitus type II, controlled, with no complications : Diabetes and Exercise: Preventing Low Blood Sugar: diabetes Indication: Diabetes mellitus type II, controlled, with no complications Diabetes mellitus type II, controlled, with no complications : Follow up in 3 months Indication: Diabetes mellitus type II, controlled, with no complications Diabetes mellitus type II, controlled, with no complications : Diabetes Mellitus: Type 2 *: diabetes Indication: Diabetes mellitus type II, controlled, with no complications Vitamin D deficiency, unspecified : Continue Current Prescription(s) Indication: Vitamin D deficiency, unspecified Diabetes mellitus type II, controlled, with no complications : Follow up in 3 months Indication: Diabetes mellitus type II, controlled, with no complications GERD (gastroesophageal reflux disease) : GERD Education Indication: GERD (gastroesophageal reflux disease) Hypercholesteremia : Cholesterol mgmt Indication: Hypercholesteremia Diabetes mellitus type II, controlled, with no complications : *Colon Cancer Screening Indication: Diabetes mellitus type II, controlled, with no complications Hypercholesteremia : Cholesterol mgmt Indication: Hypercholesteremia GERD (gastroesophageal reflux disease) : GERD Education Indication: GERD (gastroesophageal reflux disease) Diabetes mellitus type II, controlled, with no complications : Follow up in 3 months Indication: Diabetes mellitus type II, controlled, with no complications Diabetes mellitus type II, controlled, with no complications : Diabetes Mellitus: Type 2 *: blood sugar Indication: Diabetes mellitus type II, controlled, with no complications Diabetes mellitus type II, controlled, with no complications : Follow up in 3 months Indication: Diabetes mellitus type II, controlled, with no complications Diabetes mellitus type II, controlled, with no complications : Reviewed Lab Indication: Diabetes mellitus type II, controlled, with no complications Diabetes mellitus type II, controlled, with no complications : Follow up in 3 months Indication: Diabetes mellitus type II, controlled, with no complications GERD (gastroesophageal reflux disease) : GERD Education Indication: GERD (gastroesophageal reflux disease) Hypercholesteremia : Cholesterol mgmt Indication: Hypercholesteremia Diabetes mellitus type II, controlled, with no complications : *Diabetes Education Indication: Diabetes mellitus type II, controlled, with no complications Diabetes mellitus type II, controlled, with no complications : Follow up in 3 months Indication: Diabetes mellitus type II, controlled, with no complications GERD (gastroesophageal reflux disease) : GERD Education Indication: GERD (gastroesophageal reflux disease) Diabetes mellitus type II, controlled, with no complications : Continue Current Prescription(s) Indication: Diabetes mellitus type II, controlled, with no complications Gastroparesis : Continue Current Prescription(s) Indication: Gastroparesis Hypercholesteremia : Cholesterol mgmt Indication: Hypercholesteremia Diabetes mellitus type II, controlled, with no complications : Diabetes Overview (Living with Diabetes): hyperglycemia Indication: Diabetes mellitus type II, controlled, with no complications Vitamin D deficiency, unspecified : Reviewed Lab Indication: Vitamin D deficiency, unspecified Low back pain potentially associated with radiculopathy : Reviewed Diagnostic Tests Indication: Low back pain potentially associated with radiculopathy Diabetes mellitus type II, controlled, with no complications : Follow up in 3 months Indication: Diabetes mellitus type II, controlled, with no complications Hypercholesteremia : *Cholesterol - Nonprescription Treatment Indication: Hypercholesteremia Low back pain : Follow up in 2 weeks: if no better consider PT Indication: Low back pain Hypercholesteremia : Cholesterol mgmt Indication: Hypercholesteremia GERD (gastroesophageal reflux disease) : GERD Education Indication: GERD (gastroesophageal reflux disease) Low back pain : Follow up in 3 weeks- fu for this visit as well as do gen med Indication: Low back pain Diabetes mellitus type II, controlled, with no complications : Reviewed Lab Indication: Diabetes mellitus type II, controlled, with no complications Other specified abnormal findings of blood chemistry : Follow up in 2 weeks with [facility] for diabetic teaching Indication: Other specified abnormal findings of blood chemistry Dysuria : Reviewed Lab Indication: Dysuria Dysuria : follow up for recheck urine 1 week after complete antibiotic Indication: Dysuria Dysuria : Follow up in 2 weeks Indication: Dysuria Dysuria : follow up for recheck urine 1 week after complete antibiotic Indication: Dysuria Dysuria : Water in diet, brief version Indication: Dysuria Myalgia : Follow up in 1 month Indication: Myalgia Vitamin D deficiency, unspecified : Continue Current Prescription(s) Indication: Vitamin D deficiency, unspecified Myalgia : Follow up in 1 month Indication: Myalgia Myalgia : Follow up in 4 weeks Indication: Myalgia Osteoarthritis, unspecified osteoarthritis type, unspecified site : Reviewed Diagnostic Tests Indication: Osteoarthritis, unspecified osteoarthritis type, unspecified site Myalgia : Follow up in 2 weeks Indication: Myalgia Myalgia : Reviewed Lab Indication: Myalgia Myalgia : Continue Current Prescription(s) Indication: Myalgia Vitamin D deficiency, unspecified : *ERGOCALCIFEROL DOSAGE PER SHEWMON Indication: Vitamin D deficiency, unspecified Myalgia : FOLLOW UP IN 2 WEEKS Indication: Myalgia Gastroparesis : FOLLOW UP IN 2 WEEKS Indication: Gastroparesis SYMPTOMS INVOLVING RESPIRATORY SYSTEM AND OTHER CHEST SYMPTOMS; SWELLING, MASS, OR LUMP IN CHEST : Reviewed Diagnostic Tests Indication: SYMPTOMS INVOLVING RESPIRATORY SYSTEM AND OTHER CHEST SYMPTOMS; SWELLING, MASS, OR LUMP IN CHEST GERD (gastroesophageal reflux disease) : GERD Education Indication: GERD (gastroesophageal reflux disease) Planned Observations Rapid Strep Test, Office ([id number])Indication: Sore throat On: 37-Srb-086559:31 Request SED RATE ERYTHROCYTE ([id number])Indication: Abscess, abdomen On: 16-Dec-2015 Request BACT CULTURE ANY-ANAEROBIC (67129)Indication: Abscess, abdomen On: 13-Dec-20157:42 Request CALCIFIDIOL (85397) VIT D 25Indication: Vitamin D deficiency, unspecified On: 10-Uqp-506306:30 Request CPK MB FRACTION (79864)Indication: Chest pain at rest On: 6-Wpg-699300:30 Request CREATINE KINASE TOTAL (99921)Indication: Chest pain at rest On: 8-Zss-797492:30 Request Troponin I (13809)Indication: Chest pain On: 88-Wau-223737:19 Request CPK MB FRACTION (23026)Indication: Chest pain On: 41-Dwz-464718:19 Request CREATINE KINASE TOTAL (10497)Indication: Chest pain On: 37-Drs-913779:19 Request C-Reactive Protein (48460)Indication: Chest pain On: 61-Iei-252457:19 Request Vitamin D Hydroxy (38420)Indication: Vitamin D deficiency, unspecified On: 36-Vvz-47212:00 Request TSH (63510)Indication: Diabetes mellitus type II, controlled, with no complications On: :59 Request URINALYSIS, W/ MICRO (41652)Indication: Diabetes mellitus type II, controlled, with no complications On: :59 Request MICROALBUMIN: CREATININE RATIO (27567) AND (80436)Indication: Diabetes mellitus type II, controlled, with no complications On: :59 Request METABOLIC PANEL, COMPREHENSIVE (12044)Indication: Diabetes mellitus type II, controlled, with no complications On: 13-Rxs-17188:59 Request LIPID PANEL (05281)Indication: Hypercholesteremia On: :59 Request CBC W/AUTO DIFF WBC (18985)Indication: Diabetes mellitus type II, controlled, with no complications On: 60-Zdh-14518:59 Request Blood Glucose , Office (61230)Indication: Diabetes mellitus type II, controlled, with no complications On: 24-Gkd-26745:51 Request Lipid Panel (90541)Indication: Hypercholesteremia On: 46-Iwg-876332:10 Request HEPATIC FUNCTION PANEL (40079)Indication: Hypercholesteremia On: :10 Request LIPID PANEL (00754)Indication: Hypercholesteremia On: :48 Request CPK TOTAL & ISOENZYMES (45045)Indication: Epigastric pain On: 34-Rlo-253377:33 Request Urinalysis, Office (72956)Indication: Dysuria On: 8-Yqv-216683:01 Request CCP ANTIBODY (22129)Indication: Pain in joint, unspecified site On: 59-Kcg-95742:51 Request STEVE (ANTINUCLEAR ANTIBODY) (88290)Indication: Myalgia On: :24 Request CALCIFIDIOL (07335) VIT D 25Indication: Myalgia On: :20 Request TSH (77201)Indication: Myalgia On: :20 Request SED RATE ERYTHROCYTE (56575)Indication: Myalgia On: :20 Request STEVE (ANTINUCLEAR ANTIBODY) (20441)Indication: Myalgia On: :20 Request Anti-Abigail-1 (96363)Indication: Myalgia On: :20 Request Creatine Kinase Total (95534)Indication: Myalgia On: :19 Request C-Reactive Protein (32291)Indication: Myalgia On: :19 Request HELICOBACTER PYLORI ANTIBODY (51321)Indication: Epigastric pain On: 05-Bjz-704551:21 Request Planned Procedures B 12 Injection, 1000 mcg On: 09-Dec-2017 Intent (J3420)By: Lexy ISAACS, Comments: Vitamin B12 1000 mcg injectionLot--[id number]--jan 2019L Delt IMpt tolerated wellTLOCKLEAR, MINING HELPER Leticia Pugh DO, Leticia B 12 Injection, 1000 mcg On: 26-Nov-2017 Intent (J3420)By: Tammy Shaw Comments: lot:[id number]:jan 2019site/route:L deltoid amt:1ml 1,000mcg/mlJasmin, CCMA B 12 Injection, 1000 mcg On: 15-Nov-2017 Intent (J3420)By: Lexy ISAACS, Comments: lot: [id number]: 01/24site/route: L del/IMamt: 1mLVIS signed when applicableChelsea, LANGUAGE ASSISTANT Leticiaaura Pugh DO, Leticia INJECTION, VITAMIN B-12 On: 27-Oct-2017 Intent CYANOCOBALAMIN, UP TO 1000 Comments: lot:[id number]:rte:IM right deltoid dose:1ml given by:fozia Overton MINING HELPER EZEKIEL (Special Coverage Instructions Apply. See CIM: 45-4 and MCM: 2049) (J3420)By: Visit, Nurse B 12 Injection, 1000 mcg On: 15-Oct-2017 Intent (J3420)By: Visit, Nurse Comments: lot:[id number]:05/2019rte:IM left arm dose:1ml given by:fozia Overton LPN B 12 Injection, 1000 mcg On: 30-Sep-2017 Intent (J3420)By: Visit, Nurse Comments: [id number], 38458sshu dltd, IMCM, LANGUAGE ASSISTANT B 12 Injection, 1000 mcg On: 16-Sep-2017 Intent (J3420)By: Rolando Calderon Comments: Vitamin b12 1000mcg injection lot:[id number]:05/2018L DELT IMpt tolerated well MSMITH,MINING HELPER B 12 Injection, 1000 mcg On: 02-Sep-2017 Intent (J3420)By: Visit, Nurse Comments: 1 ml given rt arm lot [id number] EXP 05/24 B 12 Injection, 1000 mcg On: 19-Aug-2017 Intent (J3420)By: Rolando Calderon Comments: Vitamin b12 1000mcg injection lot:[id number]:12/2018L DELT IMpt tolerated well MSMITH,MINING HELPER B 12 Injection, 1000 mcg On: 06-Aug-2017 Intent (J3420)By: Lexy ISAACS, Comments: vitamin b12 1000mcg injectionlot: [id number]: 12/2018L DELT IMpt tolerated wellAD MINING HELPER Leticia Lexy DO, Leticia B 12 Injection, 1000 mcg On: 22-Jul-2017 Intent (J3420)By: Lexy ISAACS, Comments: Vitamin b12 1000mcg injection lot:[id number]:12/2018R DELT IMpt tolerated well MSMITH,MINING HELPER Leticia Lexy DO, Leticia B 12 Injection, 1000 mcg On: 09-Jul-2017 Intent (J3420)By: Lexy ISAACS, Comments: Vitamin b12 1000mcg injection lot:[id number]:12/2018L DELT IMpt tolerated well MSMITH,MINING HELPER Leticia Lexy DO, Leticia B 12 Injection, 1000 mcg On: 24-Jun-2017 Intent (J3420)By: Lexy ISAACS, Comments: vitamin b12 1000mcg injectionlot: [id number]: 12/2018L DELT IMpt tolerated wellAD MINING HELPER Leticia Lexy DO, Leticia B 12 Injection, 1000 mcg On: 11-Jun-2017 Intent (J3420)By: Tanvi Hawthorne CNP Comments: lot [id number] 07/2018rt [id number] mcgas, MINING HELPER B 12 Injection, 1000 mcg On: 28-May-2017 Intent (J3420)By: Visit, Nurse Comments: [id number] dltd, IM Toradol Injection, 30 mg On: 28-May-2017 Intent (J1885)By: Visit, Nurse Comments: 05687fs0/2019R hip, IM30mg/2 unitsMLONG, MINING HELPER Toradol Injection, 30 mg On: 21-May-2017 Intent (J1885)By: Lexy ISAACS, Comments: toradol 30mg injectionlot: [id number]: 10/2018L GMpt tolerated wellAD MINING HELPER Leticia Lexy DO, Leticia X-RAY OF SACROILIAC JOINT On: 21-May-2017 Intent ([id number])By: Leticia Pugh DO Lexy DO, Leticia B 12 Injection, 1000 mcg On: 13-May-2017 Intent (J3420)By: Ginna, Nurse Comments: [id number] dltdRoel, MINING HELPER B 12 Injection, 1000 mcg On: 29-Apr-2017 Intent (J3420)By: Lexy ISAACS, Comments: vitamin b12 1000mcg injectionlot: [id number]: 07/2018L DELT IMpt tolerated wellAD MINING HELPER Leticia Lexy DO, Leticia B 12 Injection, 1000 mcg On: 16-Apr-2017 Intent (J3420)By: Yamilex Duffy Comments: vitamin b12 1000mcg injectionlot: [id number]: 07/2018L DELT IMpt tolerated wellAD MINING HELPER B 12 Injection, 1000 mcg On: 01-Apr-2017 Intent (J3420)By: Lexy ISAACS, Comments: vitamin b12 1000mcg injectionlot: [id number]: 07/2019L DELT IMpt tolerated wellAD MINING HELPER Leticia Lexy DO, Leticia B 12 Injection, 1000 mcg On: 18-Mar-2017 Intent (J3420)By: Lexy ISAACS, Comments: Lot:[id number]:07/2018Dose:1mlRoute:IMSite:l arm Given By:LATANYA signed Leticia Lexy DO, Leticia B 12 Injection, 1000 mcg On: 04-Mar-2017 Intent (J3420)By: Leticia Pugh DO Lexy DO, Leticia B 12 Injection, 1000 mcg On: 15-Feb-2017 Intent (J3420)By: Tanvi Hawthorne CNP Radiology - Toe(s) - LeftBy: On: 15-Feb-2017 Intent Tanvi Hawthorne CNP Comments: send to Dr Kebede B 12 Injection, 1000 mcg On: 18-Jan-2017 Intent (J3420)By: Lexy ISAACS, Comments: vitamin b12 1000mcg injectionlot: [id number]: 04/2018L DELT IMpt tolerated wellAD MINING HELPER Leticia Lexy DO, Leticia B 12 Injection, 1000 mcg On: 01-Jan-2017 Intent (J3420)By: Lexy ISAACS, Comments: lot: [id number]: 04/26site/route: L del/IMamt: 1mLVIS signed when applicableChelsea, LANGUAGE ASSISTANT Leticia Lexy DO, Leticia B 12 Injection, 1000 mcg On: 18-Dec-2016 Intent (J3420)By: Lexy ISAACS, Comments: b12 1000mcg lot [id number]: 10/2017L Delt IMpt tolerated wellAD MINING HELPER Leticiaaura Pugh DO, Leticia B 12 Injection, 1000 mcg On: 04-Dec-2016 Intent (J3420)By: Lexy ISAACS, Comments: Lot:[id number]:10/23Dose:1mlRoute:IMSite:l armGiven By:LATANYA signed Leticia Lindaon DO, Leticia B 12 Injection, 1000 mcg On: 20-Nov-2016 Intent (J3420)By: Lexy ISAACS, Comments: Lot:[id number]:10/23Dose:1mlRoute:IMSite:l arm Given By:LATANYA signed Leticia Pugh DO, Leticia B 12 Injection, 1000 mcg On: 06-Nov-2016 Intent (J3420)By: Lexy ISAACS, Comments: lot: [id number]: 818site/route: L del/IMamt: 1mLVIS signed when applicableChelsea, LANGUAGE ASSISTANT Leticiaaura Pugh DO, Leticia B 12 Injection, 1000 mcg On: 23-Oct-2016 Intent (J3420)By: Visit, Nurse Comments: [id number]/201911406rdNxera Dltd, IMmlong, heading machine operator B 12 Injection, 1000 mcg On: 08-Oct-2016 Intent (J3420)By: Lexy ISAACS, Comments: lot: [id number]: 818site/route: L del/IMamt: 1mLVIS signed when applicableChelsea, LANGUAGE ASSISTANT Leticia Lexy DO, Leticia B 12 Injection, 1000 mcg On: 17-Sep-2016 Intent (J3420)By: Visit, Nurse Comments: see flowsheet 1ml givenKM, LANGUAGE ASSISTANT B 12 Injection, 1000 mcg On: 04-Sep-2016 Intent (J3420)By: Lexy ISAACS, Comments: lot: [id number]: 18site/route: R del/IMamt: 1mLVIS signed when applicableMegan, MINING HELPER Leticia Lexy DO, Leticia B 12 Injection, 1000 mcg On: 24-Aug-2016 Intent (J3420)By: Lexy ISAACS, Comments: Lot:[id number]:11/23Dose:1mlRoute:IMSite:l armGiven By:LATANYA signed Leticia Lexy DO, Leticia B 12 Injection, 1000 mcg On: 19-May-2016 Intent (J3420)By: Christoph CHOPRA Shey Comments: Lot:[id number]:09/2017Dose:1mlRoute:IMSite:l armGiven By:LATANYA signed Wax CurettesBy: Christoph CHOPRA, On: 19-May-2016 Intent Tanvi [facility] (96376)By: On: 19-May-2016 Intent Christoph CHOPRA Shey B 12 Injection, 1000 mcg On: 08-Apr-2016 Intent (J3420)By: Lexy ISAACS, Comments: Lot:615Exp:06/23Dose:1mlRoute:IMSite:l arm Given By:LATANYA signed Leticia Lexy DO, Leticia B 12 Injection, 1000 mcg On: 20-Mar-2016 Intent (J3420)By: Lexy ISAACS, Comments: lot: [id number]: 18site/route: L del/IMamt: 1mLVIS signed when applicableChelsea, LANGUAGE ASSISTANT Leticia Lexy DO, Leticia B 12 Injection, 1000 mcg On: 05-Mar-2016 Intent (J3420)By: Lexy ISAACS, Comments: B12lot:6202exp:18site:rt deltroute:imdose:1mlD.JEANMARIE Ray Leticia Lexy DO, Leticia Radiology - Chest- PA and On: 24-Feb-2016 Intent LatBy: Lexy DO, Leticia Lexy DO, Leticia B 12 Injection, 1000 mcg On: 29-Jan-2016 Intent (J3420)By: Lexy ISAACS, Comments: B12lot:6185exp:18site:rt deltroute:IMdose:1mlD.JEANMARIE Ray Leticia Lexy DO, Leticia B 12 Injection, 1000 mcg On: 17-Jan-2016 Intent (J3420)By: Lexy ISAACS, Comments: Lot:[id number]:06/23Dose:1mlRoute:IMSite:l armGiven By:JKMVIS signed Leticia Lexy DO, Leticia B 12 Injection, 1000 mcg On: 19-Dec-2015 Intent (J3420)By: Lexy ISAACS, Comments: [id number] lot# exp4/18 left deltiod Leticia Lexy DO, Leticia CAT SCAN OF ABDOMEN On: 12-Dec-2015 Intent (47806)By: Lexy ISAACS, Leticia Lexy DO, Leticia B 12 Injection, 1000 mcg On: 06-Dec-2015 Intent (J3420)By: Lexy ISAACS, Comments: B12lot:6185exp:ite:lt deltroute:IMdose:1mlD.JEANMARIE Ray Leticia Lexy DO, Leticia Rocephin Injection, 2 Gram On: 04-Dec-2015 Intent (J0696)By: Tammy Ortez DO Comments: lot: [id number]: 03/08/18site/route: RGM and LGM/IMamt: 2GVIS signed when applicableCRISTINO Casey B 12 Injection, 1000 mcg On: 25-Nov-2015 Intent (J3420)By: Lexy ISAACS, Comments: Lot:[id number]:06/23Dose:1mlRoute:IMSite:l Maximven By:MLVIS signed Leticia Lexy DO, Leticia B 12 Injection, 1000 mcg On: 08-Nov-2015 Intent (J3420)By: Lexy ISAACS, Comments: 1000 mcglot 67809/18left dltdIMas, MINING HELPER Leticia Lexy DO, Leticia B 12 Injection, 1000 mcg On: 22-Oct-2015 Intent (J3420)By: Visit, Nurse Comments: 50520/181mlLdltdML, MINING HELPER B 12 Injection, 1000 mcg On: 03-Oct-2015 Intent (J3420)By: Henri Ray Comments: B12lot:6155exp:ite:rt deltroute:IMdose:1mlD.JEANMARIE Ray B 12 Injection, 1000 mcg On: 20-Sep-2015 Intent (J3420)By: Danika Caputo MD Comments: Lot:[id number]:07/23Dose:1mlRoute:IMSite:l Maximven By:LATANYA signed M B 12 Injection, 1000 mcg On: 05-Sep-2015 Intent (J3420)By: Lexy ISAACS, Comments: B12lot:5200exp:07/22site:rt glutroute:imdose:1mlD.JEANMARIE Ray DO, Kathleen TD VACCINE ADULT (29127)By: On: 04-Apr-2015 Intent Henri Ray TDAP VACCINE >7 IM On: 04-Apr-2015 Intent (83037)By: Henri Ray Comments: Tdaplot:LD1ZDsan:01/24/17site:lt deltoidroute:ImDEMICk, MA B 12 Injection, 1000 mcg On: 04-Apr-2015 Intent (J3420)By: Henri Ray Comments: B12lot:5310exp:11/22site: rt deltroute:IVzxob6fpSSTBQW, MA B 12 Injection, 1000 mcg On: 25-Feb-2015 Intent (J3420)By: Henri Ray Comments: B12lot:[id number]:06/22site: rt delroute:IMdose:1mlDESHA B 12 Injection, 1000 mcg On: 28-Jan-2015 Intent (J3420)By: Lexy ISAACS, Comments: Lot:[id number]:06/22Dose:1mlRoute:IMSite:rene Panven By JETHRO signed Leticiaaura Pugh Carole ISAACSLeticia B 12 Injection, 1000 mcg On: 01-Jan-2015 Intent (J3420)By: Lexy ISAACS, Comments: Lot:[id number]:06/22Dose:1mlRoute:IMSite:rene Panven By:LATANYA signed Leticia Pugh DO Leticia B 12 Injection, 1000 mcg On: 03-Dec-2014 Intent (J3420)By: eLxy ISAACS, Comments: lot: [id number]: 05/22site/route: L del/IMamt: 0.5mLVIS signed when applicableCarmela LANGUAGE ASSISTANT Leticia Lexy DO, Leticia B 12 Injection, 1000 mcg On: 13-Sep-2014 Intent (J3420)By: Lexy ISAACS, Comments: Lot:[id number]:11.16Route:IMSite:R deltoidDose: 1 mLgiven by: Altagracia Dumas CMA Leticia Lexy DO, Leticia B 12 Injection, 1000 mcg On: 05-Sep-2014 Intent (J3420)By: Lexy ISAACS, Comments: Lot:[id number]:3.16Route:IMSite:R deltoidDose: 1 mLgiven by: Altagracia Dumas CMA Leticianicolas Pugh DO, Leticia EKG ([id number])By: Lexy ISAACS, On: 05-Sep-2014 Intent Leticia Pugh DOLeticia Comments: nsr no acute chg B 12 Injection, 1000 mcg On: 10-Aug-2014 Intent (J3420)By: Lexy ISAACS, Comments: Lot:[id number]:05/21Dose:1mlRoute:IMSite:l armGiven By:JKMVIS signed Leticia Lexy DO, Leticia B 12 Injection, 1000 mcg On: 09-Jul-2014 Intent (J3420)By: Lexy ISAACS, Comments: lot [id number] 05/21location L armroute imgiven by - msmith VIS and/or ABN signed Leticia Lexy DO, Leticia B 12 Injection, 1000 mcg On: 06-Jun-2014 Intent (J3420)By: Lexy ISAACS, Comments: Lot:[id number]:05/21Dose:1mlRoute:IMSite:l armGiven By:JKMVIS signed Leticia Lexy DO, Leticia B 12 Injection, 1000 mcg On: 30-May-2014 Intent (J3420)By: Lexy ISAACS, Comments: Lot:[id number]:05/2015Dose:1mlRoute:IMSite:l armGiven By:CMVIS signed Leticia Lexy DO, Leticia B 12 Injection, 1000 mcg On: 23-May-2014 Intent (J3420)By: Lexy ISAACS, Comments: given in R Allie honeycutt Leticia Lexy DO, Leticia B 12 Injection, 1000 mcg On: 17-May-2014 Intent (J3420)By: Visit, Nurse Comments: [id number] Dltd, IMMegan, LPN1ml MRI - Brain (IV Contrast On: 15-May-2014 Intent Needed)By: LexyLeticia bain DO Lexy DO, Leticia MRI - Cervical SpineBy: On: 15-May-2014 Intent Lexy DO, Leticia Lexy DO, [facility] - Cervical On: 11-Apr-2014 Intent SpineBy: Lexy DO, [facility]icia Lexy DO, [facility] - ChestBy: Ciesa On: 29-Jan-2014 Intent Tanvi CHOPRA UGI (With air contrast if On: 29-Jan-2014 Intent necessary)By: Tanvi Hawthorne CNP Stress Echo with On: 29-Jan-2014 Intent TreadmillBy: Tanvi Hawthorne CNP Echo CompleteBy: Christoph CHOPRA, On: 29-Jan-2014 Intent Tanvi Mary EKG ([id number])By: Lexy ISAACS, On: 30-Nov-2013 Intent Leticia Reza DO Comments: nsr no acute chg SPECIMEN HANDLING/TRANSPORT On: 20-Nov-2013 Intent ([id number])By: Tanvi Hawthorne CNP PNEUM VAC ADLT/IMUMNOSPR, On: 24-Nov-2012 Intent SBC/INTRM ([id number])By: Lexy Comments: lot: [id number]: 09/24/13site/route: L deltoid/IMamt: 0.5mLVIS signed when applicableChelsea, LANGUAGE ASSISTANT DO, Leticia Lexy DO, [facility] - ThyroidBy: On: 24-Nov-2012 Intent Lexy DO, Leticia Lexy DO, [facility] IMMUNIZ ADMNIN, 1 VAC, On: 24-Nov-2012 Intent SNGL/COMBO ([id number])By: Leticia Pugh DO Lexy DOLeticia Eprescribed prescriptions On: 24-Nov-2012 Intent ([id number])By: Carmela Chery EKG ([id number])By: Shalini, On: 15-Aug-2012 Intent Yennifer NAZARIO Comments: nsr no acute chg Eprescribed prescriptions On: 15-Aug-2012 Intent ([id number])By: Yennifer Loya LPN Eprescribed prescriptions On: 16-May-2012 Intent ([id number])By: Lexy DO, Leticia Lexy DO, [facility] Eprescribed prescriptions On: 15-Feb-2012 Intent ([id number])By: Yennifer Loya LPN EKG ([id number])By: Lexy DO, On: 24-Sep-2011 Intent Leticia Lexy DO, Leticia Comments: nsr no acute chg Radiology - Lumbar SpineBy: On: 24-Sep-2011 Intent Lexy DO, Leticia Lexy DO, [facility] SPECIMEN HANDLING/TRANSPORT On: 27-Jan-2011 Intent ([id number])By: Tanner NAZARIO, Enid CALIX, SPLIT, >3 YEARS, On: 17-Dec-2010 Intent INTRAMUSC ([id number])By: Lexy Comments: pt refused DO, Leticia Lexy DO, [facility] - Knee - RightBy: On: 29-Sep-2010 Intent Lexy DO, Leticia Lexy DO, [facility] - Knee - LeftBy: On: 29-Sep-2010 Intent Lexy DO, Leticia Lexy DO, [facility] Eprescribed prescriptions On: 29-Sep-2010 Intent ([id number])By: Lexy DO, Leticia Lexy DO, [facility] Doppler Ultrasound OtherBy: On: 15-Sep-2010 Intent Lexy DO, Leticia Lexy Comments: both legs-- calf pain and one calf bigger than other DO, [facility] - HIDA On: 29-May-2010 Intent w/CPKBy: Mast RN, Dori Comments: hida with cck Ultrasound - GallbladderBy: On: 19-May-2010 Intent Lexy DO, Leticia Lexy DO, [facility] - On: 27-Aug-2008 Intent ThyroidBy: Christoph CHOPRA, Shey CT - ChestBy: Patito VIDALES, On: 07-Aug-2008 Intent Danika Baer Comments: ATTENTION SUPRACLAAVICULAR AREA MRI - Shoulder(s) - RightBy: On: 31-May-2008 Intent Lexy DO, Leticia Lexy DO, [facility] - Shoulder - On: 14-May-2008 Intent RightBy: Lexy DO, Leticia Lindaon DO, [facility] EKG ([id number])By: Lexy ISAACS, On: 18-May-2007 Intent Leticia Reza DO Comments: NSR NO ACUTE ISCHEMIC CHANGES Planned Medications INJECTION, CEFTRIAXONE SODIUM, PER 250 MG Ordered: 04-Dec-2015 Pending Fast DO, Tammy A INJECTION, KETOROLAC TROMETHAMINE, PER 15 MG Ordered: 21-May-2017 Pending Lexy DOLeticia DO, Leticia INJECTION, KETOROLAC TROMETHAMINE, PER 15 MG Ordered: 28-May-2017 Pending [place], Vitamin B-12 1000 MCG/ML Injection Solution Ordered: 20-Nov-2016 Pending Lexy DOLeticia Lexy DO, Leticia Vitamin B-12 1000 MCG/ML Injection Solution Ordered: 04-Dec-2016 Pending Lexy DO, Leticia Lexy DO, Leticia Vitamin B-12 1000 MCG/ML Injection Solution Ordered: 18-Dec-2016 Pending Lexy DOLeticia Lexy DO, [facility]icia Vitamin B-12 1000 MCG/ML Injection Solution Ordered: 01-Jan-2017 Pending Lexy DOLeticia Lexy DO, Leticia Vitamin B-12 1000 MCG/ML Injection Solution Ordered: 18-Jan-2017 Pending Lexy DOLeticia Lexy DO, Leticia Vitamin B-12 1000 MCG/ML Injection Solution Ordered: 15-Feb-2017 Pending Tanvi Hawthorne CNP Vitamin B-12 1000 MCG/ML Injection Solution Ordered: 04-Mar-2017 Pending Lexy DOLeticia Lexy DO, Leticia Vitamin B-12 1000 MCG/ML Injection Solution Ordered: 18-Mar-2017 Pending Lexy DOCaroleLeticia Lexy DO, Leticia Vitamin B-12 1000 MCG/ML Injection Solution Ordered: 01-Apr-2017 Pending Lexy DOLeticia Lexy DO, Leticia Vitamin B-12 1000 MCG/ML Injection Solution Ordered: 16-Apr-2017 Pending Yamilex Duffy Vitamin B-12 1000 MCG/ML Injection Solution Ordered: 29-Apr-2017 Pending Lexy DOLeticia Lexy DO, Leticia Vitamin B-12 1000 MCG/ML Injection Solution Ordered: 13-May-2017 Pending Visit, Nurse Vitamin B-12 1000 MCG/ML Injection Solution Ordered: 17-May-2014 Pending Visit, Nurse Vitamin B-12 1000 MCG/ML Injection Solution Ordered: 28-May-2017 Pending Visit, Nurse Vitamin B-12 1000 MCG/ML Injection Solution Ordered: 11-Jun-2017 Pending Christoph CHOPRATanvi Vitamin B-12 1000 MCG/ML Injection Solution Ordered: 24-Jun-2017 Pending Lexy DO, Leticia Lexy DO, Leticia Vitamin B-12 1000 MCG/ML Injection Solution Ordered: 09-Jul-2017 Pending Lexy DO, Leticia Lexy DO, Leticia Vitamin B-12 1000 MCG/ML Injection Solution Ordered: 22-Jul-2017 Pending Lexy DO, Leticia Lexy DO, [facility]icia Vitamin B-12 1000 MCG/ML Injection Solution Ordered: 06-Aug-2017 Pending Lexy DO, Leticia Lexy DO, Leticia Vitamin B-12 1000 MCG/ML Injection Solution Ordered: 19-Aug-2017 Pending Rolando Calderon Vitamin B-12 1000 MCG/ML Injection Solution Ordered: 02-Sep-2017 Pending Visit, Nurse Vitamin B-12 1000 MCG/ML Injection Solution Ordered: 16-Sep-2017 Pending Rolando Calderon Vitamin B-12 1000 MCG/ML Injection Solution Ordered: 30-Sep-2017 Pending Visit, Nurse Vitamin B-12 1000 MCG/ML Injection Solution Ordered: 15-Oct-2017 Pending Visit, Nurse Vitamin B-12 1000 MCG/ML Injection Solution Ordered: 27-Oct-2017 Pending Visit, Nurse Vitamin B-12 1000 MCG/ML Injection Solution Ordered: 15-Nov-2017 Pending Lexy DOLeticia Lexy DO, Leticia Vitamin B-12 1000 MCG/ML Injection Solution Ordered: 06-Nov-2016 Pending Lexy DO, Leticia Lexy DO, [facility] Vitamin B-12 1000 MCG/ML Injection Solution Ordered: 23-Oct-2016 Pending Visit, Nurse Vitamin B-12 1000 MCG/ML Injection Solution Ordered: 08-Oct-2016 Pending Lexy DO, Leticia Lexy DO, Leticia Vitamin B-12 1000 MCG/ML Injection Solution Ordered: 17-Sep-2016 Pending Visit, Nurse Vitamin B-12 1000 MCG/ML Injection Solution Ordered: 23-May-2014 Pending Lexy DO, Leticia Lexy DO, Leticia Vitamin B-12 1000 MCG/ML Injection Solution Ordered: 30-May-2014 Pending Lexy DO, Leticia Lexy DO, Leticia Vitamin B-12 1000 MCG/ML Injection Solution Ordered: 06-Jun-2014 Pending Lexy DO, Leticia Lexy DO, Leticia Vitamin B-12 1000 MCG/ML Injection Solution Ordered: 09-Jul-2014 Pending Lexy DO, Leticia Lexy DO, Leticia Vitamin B-12 1000 MCG/ML Injection Solution Ordered: 10-Aug-2014 Pending Lexy DO, Leticia Lexy DO, Leticia Vitamin B-12 1000 MCG/ML Injection Solution Ordered: 05-Sep-2014 Pending Lexy DO, Leticia Lexy DO, Leticia Vitamin B-12 1000 MCG/ML Injection Solution Ordered: 13-Sep-2014 Pending Lexy DO, Leticia Lexy DO, Leticia Vitamin B-12 1000 MCG/ML Injection Solution Ordered: 03-Dec-2014 Pending Lexy DO, Leticia Lexy DO, Leticia Vitamin B-12 1000 MCG/ML Injection Solution Ordered: 01-Jan-2015 Pending Lexy DO, Leticia Lexy DO, Leticia Vitamin B-12 1000 MCG/ML Injection Solution Ordered: 28-Jan-2015 Pending Lexy DO, Leticia Lexy DO, Leticia Vitamin B-12 1000 MCG/ML Injection Solution Ordered: 25-Feb-2015 Pending [place], [place] Vitamin B-12 1000 MCG/ML Injection Solution Ordered: 04-Apr-2015 Pending [place], [place] Vitamin B-12 1000 MCG/ML Injection Solution Ordered: 05-Sep-2015 Pending Lexy DO, Leticia Lexy DO, Leticia Vitamin B-12 1000 MCG/ML Injection Solution Ordered: 26-Nov-2017 Pending Tammy Shaw Vitamin B-12 1000 MCG/ML Injection Solution Ordered: 20-Sep-2015 Pending Danika Caputo MD Vitamin B-12 1000 MCG/ML Injection Solution Ordered: 22-Oct-2015 Pending Nurse Ginna Vitamin B-12 1000 MCG/ML Injection Solution Ordered: 08-Nov-2015 Pending Lexy DO, Leticia Lexy DO, Leticia Vitamin B-12 1000 MCG/ML Injection Solution Ordered: 25-Nov-2015 Pending Lexy DO, Leticia Lexy DO, Leticia Vitamin B-12 1000 MCG/ML Injection Solution Ordered: 06-Dec-2015 Pending Lexy DO, Leticia Lexy DO, Leticia Vitamin B-12 1000 MCG/ML Injection Solution Ordered: 19-Dec-2015 Pending Lexy DO, Leticia Lexy DO, Leticia Vitamin B-12 1000 MCG/ML Injection Solution Ordered: 17-Jan-2016 Pending Lexy DO, Leticia Lexy DO, Leticia Vitamin B-12 1000 MCG/ML Injection Solution Ordered: 29-Jan-2016 Pending Lexy DO, Leticia Lexy DO, Leticia Vitamin B-12 1000 MCG/ML Injection Solution Ordered: 05-Mar-2016 Pending Lexy DO, Leticia Lexy DO, Leticia Vitamin B-12 1000 MCG/ML Injection Solution Ordered: 20-Mar-2016 Pending Lexy DO, Leticia Lexy DO, Leticia Vitamin B-12 1000 MCG/ML Injection Solution Ordered: 08-Apr-2016 Pending Lexy DO, Leticia Lexy DO, Leticia Vitamin B-12 1000 MCG/ML Injection Solution Ordered: 19-May-2016 Pending Tanvi Hawthorne CNP Vitamin B-12 1000 MCG/ML Injection Solution Ordered: 24-Aug-2016 Pending Lexy DO, Leticia Lexy DO, Leticia Vitamin B-12 1000 MCG/ML Injection Solution Ordered: 04-Sep-2016 Pending Elxy DO, Leticia Lexy DO, Leticia Vitamin B-12 1000 MCG/ML Injection Solution Ordered: 03-Oct-2015 Pending Henri Ray Vitamin B-12 1000 MCG/ML Injection Solution Ordered: 09-Dec-2017 Pending Lexy DO, Leticia Lexy DO, Leticia Instructions Name Dates Details Nonsmoker : How to access health information online Indication: Nonsmoker Nonsmoker : How to access health information online - Detail Indication: Nonsmoker Nonsmoker : Patient Instructions Indication: Nonsmoker Vitamin B12 deficiency (non anemic) : How to access health information online Indication: Vitamin B12 deficiency (non anemic) Vitamin B12 deficiency (non anemic) : How to access health information online - Detail Indication: Vitamin B12 deficiency (non anemic) Vitamin B12 deficiency (non anemic) : Patient Instructions Indication: Vitamin B12 deficiency (non anemic) BMI 31.0-31.9,adult : How to access health information online Indication: BMI 31.0-31.9,adult BMI 31.0-31.9,adult : How to access health information online - Detail Indication: BMI 31.0-31.9,adult BMI 31.0-31.9,adult : Patient Instructions Indication: BMI 31.0-31.9,adult Sinus pressure : How to access health information online Indication: Sinus pressure Sinus pressure : How to access health information online - Detail Indication: Sinus pressure Sinus pressure : Patient Instructions Indication: Sinus pressure Diabetes mellitus type II, controlled, with no complications : How to access health information online Indication: Diabetes mellitus type II, controlled, with no complications Diabetes mellitus type II, controlled, with no complications : How to access health information online - Detail Indication: Diabetes mellitus type II, controlled, with no complications Diabetes mellitus type II, controlled, with no complications : Patient Instructions Indication: Diabetes mellitus type II, controlled, with no complications Diabetes mellitus type II, controlled, with no complications : How to access health information online Indication: Diabetes mellitus type II, controlled, with no complications Diabetes mellitus type II, controlled, with no complications : How to access health information online - Detail Indication: Diabetes mellitus type II, controlled, with no complications Diabetes mellitus type II, controlled, with no complications : Patient Instructions Indication: Diabetes mellitus type II, controlled, with no complications Congestion of right ear : How to access health information online Indication: Congestion of right ear Congestion of right ear : How to access health information online - Detail Indication: Congestion of right ear Congestion of right ear : Patient Instructions Indication: Congestion of right ear Sore throat : Patient Instructions Indication: Sore throat Sore throat : How to access health information online Indication: Sore throat Sore throat : How to access health information online - Detail Indication: Sore throat Diabetes mellitus type II, controlled, with no complications : How to access health information online Indication: Diabetes mellitus type II, controlled, with no complications Diabetes mellitus type II, controlled, with no complications : How to access health information online - Detail Indication: Diabetes mellitus type II, controlled, with no complications Diabetes mellitus type II, controlled, with no complications : Patient Instructions Indication: Diabetes mellitus type II, controlled, with no complications Impaired fasting glucose : How to access health information online Indication: Impaired fasting glucose Impaired fasting glucose : How to access health information online - Detail Indication: Impaired fasting glucose Impaired fasting glucose : Patient Instructions Indication: Impaired fasting glucose Non-smoker : How to access health information online - Detail Indication: Non-smoker Non-smoker : How to access health information online Indication: Non-smoker Non-smoker : Patient Instructions Indication: Non-smoker Non-smoker : How to access health information online Indication: Non-smoker Non-smoker : How to access health information online - Detail Indication: Non-smoker Non-smoker : Patient Instructions Indication: Non-smoker Cellulitis of skin : How to access health information online Indication: Cellulitis of skin Cellulitis of skin : How to access health information online - Detail Indication: Cellulitis of skin Cellulitis of skin : Patient Instructions Indication: Cellulitis of skin Abscess, abdomen : How to access health information online Indication: Abscess, abdomen Abscess, abdomen : How to access health information online - Detail Indication: Abscess, abdomen Diabetes mellitus type II, controlled, with no complications : How to access health information online Indication: Diabetes mellitus type II, controlled, with no complications Diabetes mellitus type II, controlled, with no complications : How to access health information online - Detail Indication: Diabetes mellitus type II, controlled, with no complications Diabetes mellitus type II, controlled, with no complications : Patient Instructions Indication: Diabetes mellitus type II, controlled, with no complications Cellulitis of abdominal wall : How to access health information online Indication: Cellulitis of abdominal wall Cellulitis of abdominal wall : How to access health information online - Detail Indication: Cellulitis of abdominal wall Cellulitis of abdominal wall : Patient Instructions Indication: Cellulitis of abdominal wall Diabetes mellitus type II, controlled, with no complications : How to access health information online - Detail Indication: Diabetes mellitus type II, controlled, with no complications Diabetes mellitus type II, controlled, with no complications : Patient Instructions Indication: Diabetes mellitus type II, controlled, with no complications Diabetes mellitus type II, controlled, with no complications : How to access health information online Indication: Diabetes mellitus type II, controlled, with no complications Diabetes mellitus type II, controlled, with no complications : How to access health information online - Detail Indication: Diabetes mellitus type II, controlled, with no complications Diabetes mellitus type II, controlled, with no complications : Patient Instructions Indication: Diabetes mellitus type II, controlled, with no complications Impaired fasting glucose : How to access health information online Indication: Impaired fasting glucose Impaired fasting glucose : How to access health information online - Detail Indication: Impaired fasting glucose Impaired fasting glucose : Patient Instructions Indication: Impaired fasting glucose Diabetes mellitus type II, controlled, with no complications : How to access health information online Indication: Diabetes mellitus type II, controlled, with no complications Diabetes mellitus type II, controlled, with no complications : How to access health information online - Detail Indication: Diabetes mellitus type II, controlled, with no complications Diabetes mellitus type II, controlled, with no complications : Patient Instructions Indication: Diabetes mellitus type II, controlled, with no complications Pre-operative examination : How to access health information online Indication: Pre-operative examination Pre-operative examination : How to access health information online - Detail Indication: Pre-operative examination Pre-operative examination : Patient Instructions Indication: Pre-operative examination Vitamin B12 deficiency (non anemic) : How to access health information online Indication: Vitamin B12 deficiency (non anemic) Vitamin B12 deficiency (non anemic) : How to access health information online - Detail Indication: Vitamin B12 deficiency (non anemic) Vitamin B12 deficiency (non anemic) : Patient Instructions Indication: Vitamin B12 deficiency (non anemic) Memory impairment : How to access health information online Indication: Memory impairment Memory impairment : How to access health information online - Detail Indication: Memory impairment Chest pain : How to access health information online Indication: Chest pain Chest pain : How to access health information online - Detail Indication: Chest pain Chest pain : Patient Instructions Indication: Chest pain Diabetes mellitus type II, controlled, with no complications : Patient Instructions Indication: Diabetes mellitus type II, controlled, with no complications Diabetes mellitus type II, controlled, with no complications : Patient Instructions Indication: Diabetes mellitus type II, controlled, with no complications Diabetes mellitus type II, controlled, with no complications : Patient Instructions Indication: Diabetes mellitus type II, controlled, with no complications Diabetes mellitus type II, controlled, with no complications : Patient Instructions Indication: Diabetes mellitus type II, controlled, with no complications Diabetes mellitus type II, controlled, with no complications : Patient Instructions Indication: Diabetes mellitus type II, controlled, with no complications Diabetes mellitus type II, controlled, with no complications : Patient Instructions Indication: Diabetes mellitus type II, controlled, with no complications Diabetes mellitus type II, controlled, with no complications : Patient Instructions Indication: Diabetes mellitus type II, controlled, with no complications Diabetes mellitus type II, controlled, with no complications : Patient Instructions Indication: Diabetes mellitus type II, controlled, with no complications Advance Directives Name Dates Details Immunization Registry [employer] - Effective on Effective: 17-Nov-201711/17/2017. Expiration date unspecified Encounters Office Visit On: 09-Dec-2017 11:25 Encounter Reason: Injections - The medication the patient is here to receive is vitamin B12 IM.Encounter Diagnosis: Vitamin B12 deficiency (non anemic) End: 09-Dec-2017 11:43 [facility] Office Visit On: 26-Nov-2017 9:24 Encounter Reason: Injections - The medication the patient is here to receive is vitamin B12 IM.Encounter Diagnosis: Vitamin B12 deficiency (non anemic) End: 26-Nov-2017 9:33 [facility] Office Visit On: 15-Nov-2017 12:57 Encounter Reason: Injections - The medication the patient is here to receive is vitamin B12 IM.Encounter Diagnosis: Vitamin B12 deficiency (non anemic) End: 15-Nov-2017 13:35 [facility] Office Visit On: 27-Oct-2017 14:07 Encounter Diagnosis: Vitamin B12 deficiency (non anemic) End: 27-Oct-2017 14:39 [facility] Office Visit On: 15-Oct-2017 12:00 Encounter Diagnosis: Vitamin B12 deficiency (non anemic) End: 15-Oct-2017 12:04 [facility] Office Visit On: 30-Sep-2017 12:53 Encounter Reason: Injections - The medication the patient is here to receive is vitamin B12 IM.Encounter Diagnosis: Vitamin B12 deficiency (non anemic) End: 30-Sep-2017 13:13 [facility] Office Visit On: 16-Sep-2017 11:04 Encounter Reason: Injections - The medication the patient is here to receive is vitamin B12 IM.Encounter Diagnosis: Vitamin B12 deficiency (non anemic) End: 16-Sep-2017 12:18 [facility] Nurse Visit On: 02-Sep-2017 13:31 Encounter Reason: Injections - The medication the patient is here to receive is vitamin B12 IM.Encounter Diagnosis: Vitamin B12 deficiency (non anemic) End: 02-Sep-2017 14:11 [facility] Office Visit On: 19-Aug-2017 10:59 Encounter Reason: Injections - The medication the patient is here to receive is vitamin B12 IM.Encounter Diagnosis: Vitamin B12 deficiency (non anemic) End: 19-Aug-2017 11:56 [facility] Office Visit On: 06-Aug-2017 11:10 Encounter Reason: Injections - The medication the patient is here to receive is vitamin B12 IM.Encounter Diagnosis: Vitamin B12 deficiency (non anemic) End: 06-Aug-2017 11:37 [facility] Office Visit On: 22-Jul-2017 13:39 Encounter Reason: Injections - The medication the patient is here to receive is vitamin B12 IM.Encounter Diagnosis: Vitamin B12 deficiency (non anemic) End: 22-Jul-2017 14:02 [facility] Annotation/Addendum On: 21-Jul-2017 12:05 Encounter Diagnosis: Unspecified Diagnosis End: 21-Jul-2017 12:12 [facility] Office Visit On: 09-Jul-2017 13:30 Encounter Reason: Injections - The medication the patient is here to receive is vitamin B12 IM.Encounter Diagnosis: Vitamin B12 deficiency (non anemic) End: 09-Jul-2017 13:59 [facility] Office Visit On: 24-Jun-2017 11:26 Encounter Reason: Injections - The medication the patient is here to receive is vitamin B12 IM.Encounter Diagnosis: Vitamin B12 deficiency (non anemic) End: 24-Jun-2017 12:09 [facility] Office Visit On: 11-Jun-2017 10:39 Encounter Reason: Injections - The medication the patient is here to receive is vitamin B12 IM.Encounter Diagnosis: Vitamin B deficiency End: 11-Jun-2017 11:17 [facility] Annotation/Addendum On: 31-May-2017 10:38 Encounter Diagnosis: Sacroiliac joint pain End: 31-May-2017 10:58 [facility] Office Visit On: 28-May-2017 11:36 Encounter Reason: Injections - The medication the patient is here to receive is vitamin B12 IM and other.Encounter Diagnosis: Sacroiliac joint pain, Vitamin B12 deficiency (non anemic) End: 28-May-2017 12:18 [facility] Office Visit On: 21-May-2017 9:46 Encounter Reason: Back Pain - This condition occurred following a specific injury. The injury involved the lower back. This occurred month(s) ago. The activity began month(s) ago. Symptoms are located in the left lower back.Encounter Diagnosis: End: 21-May-2017 14:57 BMI 33.0-33.9,adult, Nonsmoker, Sacroiliac joint pain [facility] Office Visit On: 13-May-2017 10:30 Encounter Reason: Injections - The medication the patient is here to receive is vitamin B12 IM.Encounter Diagnosis: Vitamin B12 deficiency (non anemic) End: 13-May-2017 11:15 [facility] Office Visit On: 29-Apr-2017 13:05 Encounter Reason: Injections - The medication the patient is here to receive is vitamin B12 IM.Encounter Diagnosis: Vitamin B12 deficiency (non anemic) End: 29-Apr-2017 13:15 [facility] Office Visit On: 16-Apr-2017 11:41 Encounter Reason: Injections - The medication the patient is here to receive is vitamin B12 IM.Encounter Diagnosis: Vitamin B12 deficiency (non anemic) End: 16-Apr-2017 12:02 [facility] Office Visit On: 01-Apr-2017 12:59 Encounter Diagnosis: Vitamin B12 deficiency (non anemic) End: 01-Apr-2017 13:42 [facility] Office Visit On: 18-Mar-2017 11:59 Encounter Reason: Injections - The medication the patient is here to receive is vitamin B12 IM.Encounter Diagnosis: Vitamin B12 deficiency (non anemic) End: 18-Mar-2017 13:21 [facility] Office Visit On: 04-Mar-2017 12:55 Encounter Reason: Follow up for chronic medical issues - The patient does not feel well, has decreased energy level and is sleeping poorly. Patient has been compliant with instructions. Current medication use: no side ef End: 04-Mar-2017 13:50 fects and compliant with dosing regimen. Nutrition: inappropriate diet. The medical issues the patient is following up for include All identified problems below, blood sugar issues, high blood pressure and high cholesterol. fasting blood sugars : and weight :.Encounter Diagnosis: Nonsmoker, BMI 31.0-31.9,adult, Vitamin B deficiency, Diabetes mellitus type II, controlled, with no complications, Vitamin D deficiency, unspecified, GERD (gastroesophageal reflux disease), Hypercholesteremia, Night sweats, Subclinical hypothyroidism [facility] Office Visit On: 15-Feb-2017 15:04 Encounter Reason: Urinary problems - The urinary problems have been occurring in a persistent pattern. The course has been recurrent. The urinary problems are described as moderate. The urinary problem is characterized a End: 15-Feb-2017 15:35 s painful urination (urethra swollen and painful.). Note for Urinary problems: [facility] had urine negEncounter Diagnosis: BMI 32.0-32.9,adult, Urethritis, Toe pain, left, Vitamin B deficiency [facility] Office Visit On: 18-Jan-2017 13:04 Encounter Reason: Injections - The medication the patient is here to receive is vitamin B12 IM.Encounter Diagnosis: Vitamin B deficiency End: 18-Jan-2017 13:20 [facility] Office Visit On: 05-Jan-2017 10:49 Encounter Reason: Cold Symptoms - Symptoms include nasal congestion, runny nose, postnasal drainage, sore throat, productive cough and facial pressure. The symptoms occur constantly. The patient describes this as worseni End: 05-Jan-2017 11:21 ng. Current treatment includes oral decongestants. Previous presentation included nasal congestion, runny nose, postnasal drainage, scratchy throat, sore throat and productive cough. Note for Cold symp toms: a lot of green drainage thick and difficult swallowingEncounter Diagnosis: BMI 31.0-31.9,adult, Nonsmoker, Sinus pressure, Sinusitis [facility] Office Visit On: 01-Jan-2017 11:51 Encounter Reason: Injections - The medication the patient is here to receive is vitamin B12 IM.Encounter Diagnosis: Vitamin B deficiency End: 01-Jan-2017 12:19 [facility] Office Visit On: 18-Dec-2016 11:11 Encounter Reason: Injections - The medication the patient is here to receive is vitamin B12 IM.Encounter Diagnosis: Vitamin B deficiency End: 18-Dec-2016 11:25 [facility] Office Visit On: 04-Dec-2016 13:53 Encounter Reason: Injections - The medication the patient is here to receive is vitamin B12 IM.Encounter Diagnosis: Vitamin B deficiency End: 04-Dec-2016 15:40 [facility] Office Visit On: 20-Nov-2016 13:06 Encounter Reason: Injections - The medication the patient is here to receive is vitamin B12 IM.Encounter Diagnosis: Vitamin B deficiency End: 20-Nov-2016 15:18 [facility] Office Visit On: 06-Nov-2016 14:12 Encounter Reason: Injections - The medication the patient is here to receive is vitamin B12 IM.Encounter Diagnosis: Vitamin B deficiency End: 06-Nov-2016 16:27 [facility] Office Visit On: 23-Oct-2016 11:18 Encounter Reason: Injections - The medication the patient is here to receive is vitamin B12 IM.Encounter Diagnosis: Vitamin B deficiency End: 26-Oct-2016 8:02 [facility] Office Visit On: 08-Oct-2016 11:02 Encounter Reason: Injections - The medication the patient is here to receive is vitamin B12 IM.Encounter Diagnosis: Vitamin B deficiency End: 08-Oct-2016 12:49 [facility] Office Visit On: 17-Sep-2016 13:46 Encounter Reason: Injections - The medication the patient is here to receive is vitamin B12 IM.Encounter Diagnosis: Vitamin B deficiency End: 18-Sep-2016 8:37 [facility] Office Visit On: 04-Sep-2016 13:17 Encounter Reason: Injections - The medication the patient is here to receive is vitamin B12 IM.Encounter Diagnosis: Vitamin B deficiency End: 04-Sep-2016 13:25 [facility] Office Visit On: 24-Aug-2016 9:55 Encounter Diagnosis: Vitamin B deficiency End: 24-Aug-2016 10:30 [facility] Office Visit On: 14-Aug-2016 14:11 Encounter Reason: elevated BS Encounter Diagnosis: Diabetes mellitus type II, controlled, with no complications, Night sweats, Elevated blood sugar End: 14-Aug-2016 14:33 [facility] Phone Encounter On: 23-Jul-2016 15:12 Encounter Diagnosis: Diabetes mellitus type II, controlled, with no complications End: 23-Jul-2016 15:14 [facility] Office Visit On: 03-Jul-2016 14:55 Encounter Reason: Follow up for chronic medical issues - The patient does not feel well, has decreased energy level and is sleeping poorly. Patient has been compliant with instructions. Current medication use: no side ef End: 03-Jul-2016 15:39 fects and compliant with dosing regimen. Nutrition: inappropriate diet. The medical issues the patient is following up for include All identified problems below, blood sugar issues, high blood pressure and high cholesterol. fasting blood sugars : and weight :.Encounter Diagnosis: Diabetes mellitus type II, controlled, with no complications, Non-smoker, BMI 31.0- 31.9,adult, Vitamin B12 deficiency (non anemic), Vitamin D deficiency, unspecified, Hypercholesteremia, GERD (gastroesophageal reflux disease), Insomnia, unspecified, Other dysphagia [facility] Annotation/Addendum On: 19-May-2016 15:53 Encounter Diagnosis: Hearing loss of right ear due to cerumen impaction End: 19-May-2016 15:54 [facility] Annotation/Addendum On: 19-May-2016 12:05 Encounter Diagnosis: Vitamin B12 deficiency (non anemic) End: 19-May-2016 12:40 [facility] Office Visit On: 19-May-2016 11:33 Encounter Reason: Earache - The onset of the earache has been gradual and has been occurring in a persistent pattern for 2 weeks. The earache is described as a pressure sensation. It affects both ears. The pain affects t End: 19-May-2016 12:05 he internal ear. There has been associated inability to 'pop' ears. Note for Earache: Started 2 weeks ago, given augmentin at that time ear hurt and red at that time, now ear wont pop. Has tried sudaf ed, sweet oil, hydrogen peroxide, nasocort. Today it was irrigated but no relievEncounter Diagnosis: BMI 32.0-32.9,adult, Non-smoker, Right ear pain, Congestion of right ear, Hearing loss on right [facility] Office Visit On: 04-May-2016 11:11 Encounter Reason: Sore Throat - Symptoms include sore throat and dysphagia. The symptoms are right sided. The pain radiates to the right ear. The patient describes the pain as sharp. Onset was 5 day(s) ago. The patient d End: 04-May-2016 11:46 escribes this as worsening. Associated symptoms include ear pain. Presenting symptoms included sore throat and dysphagia.Encounter Diagnosis: BMI 32.0-32.9,adult, Non-smoker, Sore throat, Right ear pain [facility] Office Visit On: 08-Apr-2016 11:04 Encounter Reason: Injections - The medication the patient is here to receive is vitamin B12 IM.Encounter Diagnosis: Vitamin B12 deficiency (non anemic) End: 08-Apr-2016 11:33 [facility] Office Visit On: 20-Mar-2016 13:08 Encounter Reason: Follow up tests - Date: (03/05 blood work)., [ADDITIONAL REASON] Follow up for chronic medical issues - The patient feels well with minor complai End: 20-Mar-2016 15:20 nts (cold symptoms), has decreased energy level and is sleeping poorly. Patient has been compliant with instructions. Current medication use: no side effects and compliant with dosing regimen. Patient s leeps 4 hours per night. Nutrition: balanced diet. The medical issues the patient is following up for include All identified problems below, blood sugar issues, high blood pressure and high cholesterol. blood pressure range :, fasting blood sugars : and weight :. Encounter Diagnosis: Non-smoker, BMI 32.0-32.9,adult, Vitamin B12 deficiency (non anemic), Diabetes mellitus type II, controlled, with no complications, GERD (gastroesophageal reflux disease), Hypercholesteremia, Vitamin D deficiency, unspecified, Gastroparesis, Night sweats [facility] Office Visit On: 05-Mar-2016 11:06 Encounter Reason: Nurse procedure visit - The symptoms have been associated with other (B12).Encounter Diagnosis: Vitamin B12 deficiency (non anemic) End: 05-Mar-2016 12:04 [facility] Office Visit On: 28-Feb-2016 10:01 Encounter Reason: Nurse procedure visit - The symptoms have been associated with other (TB reading).[facility] End: 28-Feb-2016 10:20 Office Visit On: 24-Feb-2016 13:58 Encounter Reason: Follow up Meds - Patient has been compliant with instructions. Current medication use: no side effects, compliant with dosing regimen and not considered effective by patient.Encounter Diagnosis: Hyperglycemia, End: 24-Feb-2016 17:44 Impaired fasting glucose, Night sweats, Screening examination for pulmonary tuberculosis [facility] Office Visit On: 13-Feb-2016 12:11 Encounter Reason: Follow up for diabetes/glucose intolerance - The patient feels well with minor complaints, has good energy level and is sleeping poorly. Patient has been compliant with instructions. Nutrition: balanced diet.Encounter Diagnosis: End: 13-Feb-2016 12:51 BMI 32.0-32.9,adult, Non-smoker, Pneumococcal vaccination given, Pneumococcal vaccination declined, Type II diabetes mellitus, well controlled, Hyperglycemia, Abscess, abdomen [facility] Office Visit On: 29-Jan-2016 11:50 Encounter Reason: Follow up for diabetes/glucose intolerance - The patient feels well with minor complaints. Patient has been compliant with instructions. Nutrition: balanced diet. fasting blood sugars :.Encounter Diagnosis: End: 29-Jan-2016 12:53 Vitamin B12 deficiency (non anemic), BMI 32.0-32.9,adult, Non-smoker, Type II diabetes mellitus, well controlled, Hyperglycemia, Abscess, abdomen, Cellulitis of skin [facility] Office Visit On: 17-Jan-2016 13:11 Encounter Reason: Injections - The medication the patient is here to receive is vitamin B12 IM.Encounter Diagnosis: Vitamin B12 deficiency (non anemic) End: 17-Jan-2016 13:39 [facility] Office Visit On: 19-Dec-2015 14:43 Encounter Reason: Cellulitis - Symptoms include pain, swelling, tenderness and warmth, while symptoms do not include fever. Symptoms are located on the left trunk (left lower abd). The patient describes the pain as achin End: 19-Dec-2015 15:28 g, burning, stinging and throbbing. Onset was sudden 2 day(s) ago. There is no known event that preceded symptom onset. The symptoms occur constantly. The patient describes this as worsening. Associated symptoms include chills and nausea, while associated symptoms do not include fatigue. Note for Cellulitis: started wednesday- does give her self victoza and then took another needle and tried to injecti on - using clean needles every time and using etoh- having chills- nausea- no abd pain - nothing changed in bowelsEncounter Diagnosis: Abscess, abdomen, Cellulitis of skin, Diabetes mellitus type II, controlled, with no complications, Vitamin B12 deficiency (non anemic) [facility] Office Visit On: 16-Dec-2015 7:46 Encounter Reason: Follow up acute care visit - The medical issues the patient is following up for include cellulitis.Encounter Diagnosis: Cellulitis of skin, Dysuria (788.1), Abscess, abdomen End: 16-Dec-2015 12:36 [facility] Office Visit On: 13-Dec-2015 7:01 Encounter Reason: Follow up tests - Date: ()., [ADDITIONAL REASON] Cellulitis - Symptoms include pain, swelling, tenderness and warmth, while sympt End: 13-Dec-2015 16:41 oms do not include fever. Symptoms are located on the left trunk (left lower abd). The patient describes the pain as aching, burning, stinging and throbbing. Onset was sudden 2 day(s) ago. There is no k nown event that preceded symptom onset. The symptoms occur constantly. The patient describes this as worsening. Associated symptoms include chills and nausea, while associated symptoms do not include fa tigue. Note for Cellulitis: started wednesday- does give her self victoza and then took another needle and tried to injection - using clean needles every time and using etoh- having chills- nausea- no abd pain - nothing changed in bowels Encounter Diagnosis: Cellulitis of skin, Abscess, abdomen, Diabetes mellitus type II, controlled, with no complications [facility] Office Visit On: 12-Dec-2015 12:57 Encounter Reason: Cellulitis - Symptoms include pain, swelling, tenderness and warmth, while symptoms do not include fever. Symptoms are located on the left trunk (left lower abd). The patient describes the pain as achin End: 12-Dec-2015 13:47 g, burning, stinging and throbbing. Onset was sudden 2 day(s) ago. There is no known event that preceded symptom onset. The symptoms occur constantly. The patient describes this as worsening. Associated symptoms include chills and nausea, while associated symptoms do not include fatigue. Note for Cellulitis: started wednesday- does give her self victoza and then took another needle and tried to injecti on - using clean needles every time and using etoh- having chills- nausea- no abd pain - nothing changed in bowelsEncounter Diagnosis: Diabetes mellitus type II, controlled, with no complications, Abscess, abdomen, Cellulitis of skin [facility] Office Visit On: 06-Dec-2015 14:18 Encounter Reason: Follow up for chronic medical issues - The patient feels well with minor complaints, has good energy level and is sleeping poorly. Patient has been compliant with instructions. Current medication use: n End: 06-Dec-2015 15:41 o side effects and compliant with dosing regimen. Patient sleeps 4 hours per night. Nutrition: balanced diet. The medical issues the patient is following up for include All identified problems below, bl ood sugar issues, high blood pressure and high cholesterol. blood pressure range :, fasting blood sugars : and weight :.Encounter Diagnosis: Diabetes mellitus type II, controlled, with no complications, Vitamin B12 deficiency (non anemic), Hypercholesteremia, Vitamin D deficiency, unspecified, Gastroparesis, GERD (gastroesophageal reflux disease), Cellulitis of abdominal wall [facility] Office Visit On: 04-Dec-2015 15:38 Encounter Reason: Cellulitis - Symptoms include pain, swelling, tenderness and warmth, while symptoms do not include fever. Symptoms are located on the left trunk (left lower abd). The patient describes the pain as achin End: 04-Dec-2015 21:15 g, burning, stinging and throbbing. Onset was sudden 2 day(s) ago. There is no known event that preceded symptom onset. The symptoms occur constantly. The patient describes this as worsening. Associated symptoms include chills and nausea, while associated symptoms do not include fatigue. Note for Cellulitis: started wednesday- does give her self victoza and then took another needle and tried to injecti on - using clean needles every time and using etoh- having chills- nausea- no abd pain - nothing changed in bowelsEncounter Diagnosis: Cellulitis of abdominal wall, Diabetes mellitus type II, controlled, with no complications [facility] Office Visit On: 25-Nov-2015 14:29 Encounter Reason: Injections - The medication the patient is here to receive is vitamin B12 IM.Encounter Diagnosis: Vitamin B12 deficiency (non anemic) End: 25-Nov-2015 15:14 [facility] Office Visit On: 08-Nov-2015 11:29 Encounter Reason: Injections - The medication the patient is here to receive is vitamin B12 IM.Encounter Diagnosis: Vitamin B12 deficiency (non anemic) End: 08-Nov-2015 16:50 [facility] Office Visit On: 22-Oct-2015 14:24 Encounter Reason: Injections - The medication the patient is here to receive is vitamin B12 IM (out stock).Encounter Diagnosis: Vitamin B12 deficiency (non anemic) End: 22-Oct-2015 14:43 [facility] Office Visit On: 03-Oct-2015 11:39 Encounter Reason: Nurse procedure visit - The symptoms have been associated with other (B12).Encounter Diagnosis: Vitamin B12 deficiency (non anemic) End: 03-Oct-2015 11:45 [facility] Office Visit On: 20-Sep-2015 11:06 Encounter Reason: Injections - The medication the patient is here to receive is vitamin B12 IM.Encounter Diagnosis: Vitamin B12 deficiency (non anemic) End: 20-Sep-2015 14:11 [facility] Office Visit On: 05-Sep-2015 13:26 Encounter Reason: Follow up tests - Date: (08/30/15 labs)., [ADDITIONAL REASON] Follow up for chronic medical issues - The patient feels well with minor complai End: 05-Sep-2015 15:19 nts, has good energy level and is sleeping poorly. Patient has been compliant with instructions. Current medication use: no side effects and compliant with dosing regimen. Patient sleeps 6 (broken) hour s per night. Nutrition: inappropriate diet and no supplemental vitamins & iron. The medical issues the patient is following up for include All identified problems below, blood sugar issues, high blo od pressure and high cholesterol. blood pressure range :, fasting blood sugars : and weight :. Encounter Diagnosis: Diabetes mellitus type II, controlled, with no complications, Vitamin D deficiency, unspecified, GERD (gastroesophageal reflux disease), Hypercholesteremia, Vitamin B12 deficiency (non anemic), Stress reaction, Insomnia, unspecified, Muscle cramps [facility] Phone Encounter On: 10-Jun-2015 17:55 Encounter Diagnosis: Vitamin D deficiency, unspecified End: 10-Jun-2015 17:57 [facility] Lab Order On: 05-Jun-2015 13:28 Encounter Diagnosis: Vitamin D deficiency, unspecified End: 05-Jun-2015 13:31 [facility] Office Visit On: 16-May-2015 13:39 Encounter Reason: Follow up for chronic medical issues - The patient feels well with minor complaints and has decreased energy level. Patient has been compliant with instructions. Current medication use: no side effects, End: 16-May-2015 14:59 compliant with dosing regimen and considered effective by patient. Patient sleeps 5 hours per night. Impact of disease: emotional impact-mild. Nutrition: balanced diet and supplemental vitamins. The me dical issues the patient is following up for include blood sugar issues, cardiac issues, gastric reflux, high cholesterol, osteoarthritis and other (insomnia, overweight, B12 and vitamin d def., mild CTS ).Encounter Diagnosis: Diabetes mellitus type II, controlled, with no complications, Gastroparesis, Vitamin B12 deficiency (non anemic), Vitamin D deficiency, unspecified, Hypercholesteremia, GERD (gastroesophageal reflux disease), Tinnitus of both ears, Cervical Radiculopathy (Renamed from Cervical nerve root disorder) [facility] Office Visit On: 04-Apr-2015 13:47 Encounter Diagnosis: Vitamin B12 deficiency (non anemic), Need for Tdap vaccination (Renamed from Need for [id number] (Tdap) vaccine, adult/adolescent) End: 04-Apr-2015 15:25 [facility] Office Visit On: 15-Mar-2015 11:44 Encounter Reason: Chest Pain - The last clinic visit was 1 week(s) ago. Symptoms include chest pain. The pain is located in the epigastrium. The pain radiates to the neck and jaw (has tmj). The patient describes the pain End: 15-Mar-2015 12:43 as burning and pressure-like. Onset was 1 week(s) ago. The patient describes this as unchanged. Associated symptoms include heartburn. Current treatment includes H2 blockers and proton pump inhibitors. By report there is good compliance with treatment. Previous presentation included chest pain, neck pain and jaw pain. Note for Chest pain: midsternal then radiates to mid, [ADDITIONAL REASON] Abdominal pain - The pain has been occurring for 2 weeks. Encounter Diagnosis: Chest pain at rest, Abdominal pain [facility] Office Visit On: 25-Feb-2015 17:18 Encounter Diagnosis: Vitamin B12 deficiency (non anemic) End: 25-Feb-2015 18:11 [facility] Office Visit On: 28-Jan-2015 14:19 Encounter Reason: Injections - The medication the patient is here to receive is vitamin B12 IM.Encounter Diagnosis: Vitamin B12 deficiency (non anemic) End: 28-Jan-2015 17:41 [facility] Office Visit On: 01-Jan-2015 10:44 Encounter Reason: Injections - The medication the patient is here to receive is vitamin B12 IM.Encounter Diagnosis: Vitamin B12 deficiency (non anemic) End: 01-Jan-2015 11:45 [facility] Office Visit On: 13-Dec-2014 10:54 Encounter Reason: Follow up tests - Date: (12.03.14)., [ADDITIONAL REASON] Follow up for chronic medical issues - The patient feels well with minor complai End: 13-Dec-2014 11:46 nts and is sleeping poorly. Patient has been compliant with instructions. Current medication use: no side effects and compliant with dosing regimen. Patient sleeps 6 (broken up ) hours per night. Nutrit ion: balanced diet. The medical issues the patient is following up for include All identified problems below, blood sugar issues, depression, high blood pressure and high cholesterol. Encounter Diagnosis: Vitamin B12 deficiency (non anemic), Hypercholesteremia, GERD (gastroesophageal reflux disease), Impaired fasting glucose (790.21), Vitamin D deficiency, unspecified (268.9) [facility] Office Visit On: 03-Dec-2014 10:41 Encounter Reason: Injections - The medication the patient is here to receive is vitamin B12 IM.Encounter Diagnosis: Vitamin B12 deficiency (non anemic) End: 03-Dec-2014 13:19 [facility] Annotation/Addendum On: 05-Nov-2014 13:59 Encounter Diagnosis: Unspecified Diagnosis End: 05-Nov-2014 14:00 [facility] Annotation/Addendum On: 29-Oct-2014 12:30 Encounter Diagnosis: Dysuria (788.1) End: 29-Oct-2014 12:32 [facility] Office Visit On: 23-Oct-2014 14:22 Encounter Reason: UTI - The urinary symptoms are described as frequency, urgency and burning. The symptoms have been occurring for 1 week and have been increasing. The urine is described as clear. There is no history of End: 23-Oct-2014 15:20 sexual contact with a person having an STD, use of tampons, possible vaginal foreign body, douching, use of contraceptive devices, sexual assault, trauma, vulvovaginal exposure to chemical irritants, s exual contact with a person exposed to an STD, recent catheterization, new sexual partner or current catheterization. There is no medical history of diabetes, current , vaginitis, kidney stones , recurrent urinary tract infections, urethritis, pyelonephritis, sexually transmitted disease, anatomic urinary anomalies, menopause, prostate disease, neurologic disorder, immuno-deficiency or renal d isease. The patient denies the use of oral contraceptives, antibiotics, hormone replacement therapy or pyridium/uristat.Encounter Diagnosis: UTI symptoms, Vaginal burning [facility] Office Visit On: 13-Sep-2014 10:43 Encounter Reason: Follow up for chronic medical issues - The patient feels well with minor complaints, has good energy level and is sleeping well. Patient has been compliant with instructions. Current medication use: no End: 13-Sep-2014 14:36 side effects and compliant with dosing regimen. Patient sleeps 8 hours per night. Nutrition: balanced diet. The medical issues the patient is following up for include All identified problems below, bloo d sugar issues, depression, high blood pressure and high cholesterol.Encounter Diagnosis: Diabetes type II,controlled no comp (250.00), Vitamin B12 deficiency (non anemic), Vitamin D deficiency, unspecified (268.9), Hypercholesteremia (272.0), Gerd (530.81), Memory impairment, Cognitive change [facility] Office Visit On: 05-Sep-2014 13:32 Encounter Reason: Pre-Op Visit - The procedure scheduled is a surgery on foot on 0 (not scheduled at this time.). The surgeon for the procedure will be . The chief complaint is painful 10/15. Recent symptoms do End: 05-Sep-2014 17:35 not include fever, chills, fatigue, chest pain, cough, dyspnea, dysuria, urinary frequency, nausea, vomiting, diarrhea, abdominal pain, easy bruising, lower extremity swelling or poor exercise tolerance . Pertinent social history includes aspirin use, while pertinent social history does not include nonsteroidal anti-inflammatory drug use, tobacco use, alcohol use, illicit drug use, transfusion refusal, wearing dentures or partial plates or concerns regarding care after surgery. After surgery the patient plans to recover at home with family ()., [ADDITIONAL REASON] Follow up tests - Date: (6.22 and 5.29). Encounter Diagnosis: PRE-OPERATIVE EXAMINATION, UNSPECIFIED (V72.84), Vitamin B12 deficiency (non anemic), Diabetes type II,controlled no comp (250.00) [facility] Office Visit On: 10-Aug-2014 10:40 Encounter Reason: Injections - The medication the patient is here to receive is vitamin B12 IM.Encounter Diagnosis: Vitamin B12 deficiency (non anemic) End: 13-Aug-2014 8:08 [facility] Office Visit On: 09-Jul-2014 14:33 Encounter Reason: Injections - The medication the patient is here to receive is vitamin B12 IM.Encounter Diagnosis: Vitamin B12 deficiency (non anemic) End: 09-Jul-2014 16:01 [facility] Office Visit On: 06-Jun-2014 15:43 Encounter Reason: Injections - The medication the patient is here to receive is vitamin B12 IM.Encounter Diagnosis: Vitamin B12 deficiency (non anemic) End: 06-Jun-2014 16:38 [facility] Office Visit On: 30-May-2014 14:34 Encounter Reason: Injections - The medication the patient is here to receive is vitamin B12 IM.Encounter Diagnosis: Vitamin B12 deficiency (non anemic) End: 30-May-2014 15:25 [facility] Office Visit On: 23-May-2014 9:04 Encounter Reason: Follow up tests - Date: (05/18/14 mri).Encounter Diagnosis: Vitamin B12 deficiency (non anemic), Memory impairment, Cognitive change, Blurred vision End: 23-May-2014 9:56 [facility] Office Visit On: 17-May-2014 14:01 Encounter Diagnosis: Memory impairment, Vitamin B12 deficiency (non anemic) End: 17-May-2014 15:16 [facility] Office Visit On: 15-May-2014 11:44 Encounter Reason: Neck Pain - This condition occurred without any known injury. Symptoms include neck pain and shoulder pain. Symptoms are located in the left posterior neck. The patient describes the pain as sharp, dull End: 15-May-2014 13:31 , aching, burning, stinging and throbbing. Onset was gradual 3 week(s) after the injury. The symptoms occur intermittently. The episodes occur daily. The patient describes symptoms as moderate in severi ty and unchanged. Associated symptoms include impaired memory (No impairment, but eye pain). Current treatment includes massage. Previous presentation included neck pain.Encounter Diagnosis: Neck Pain (Renamed from Cervical pain), Cervical Radiculopathy (Renamed from Cervical nerve root disorder), Blurred vision, Memory impairment, Cognitive change [facility] Office Visit On: 11-Apr-2014 14:32 Encounter Reason: Neck Pain - This condition occurred without any known injury. Symptoms include neck pain and shoulder pain. Symptoms are located in the left posterior neck. The patient describes the pain as sharp, dull End: 11-Apr-2014 15:30 , aching, burning, stinging and throbbing. Onset was gradual 3 week(s) after the injury.Encounter Diagnosis: Cervical Radiculopathy (Renamed from Cervical nerve root disorder), Neck Pain (Renamed from Cervical pain), Muscle spasm [facility] Office Visit On: 29-Jan-2014 13:40 Encounter Reason: Chest pain, [ADDITIONAL REASON] Muscle pain - Note for Muscle pain: both arms Encounter Diagnosis: Chest pain (786.50), Jaw pain, Abdominal pain End: 29-Jan-2014 14:22 [facility] Annotation/Addendum On: 19-Dec-2013 15:00 Encounter Diagnosis: Unspecified Diagnosis End: 19-Dec-2013 15:02 [facility] Office Visit On: 30-Nov-2013 7:51 Encounter Reason: Follow up for chronic medical issues - The patient feels well with minor complaints, has decreased energy level (by evening) and is sleeping well. Patient has been compliant with instructions. Current m End: 30-Nov-2013 15:35 edication use: no side effects and compliant with dosing regimen. Patient sleeps 6 hours per night. Nutrition: balanced diet. fasting blood sugars : and evening sugars :.Encounter Diagnosis: Diabetes type II,controlled no comp (250.00), Gerd (530.81) , Vitamin D deficiency, unspecified (268.9), Hypercholesteremia (272.0), Urinary frequency (788.41) [facility] Office Visit On: 20-Nov-2013 13:49 Encounter Reason: Urinary problems - The onset of the urinary problems has been sudden and they have been occurring in a persistent pattern for 3 days. The course has been increasing. The urinary problems are described a End: 20-Nov-2013 14:23 s moderate. The urinary problem is characterized as frequency, urgency and painful urination.Encounter Diagnosis: Cystitis,Acute (595.0), Dysuria (788.1) [facility] Office Visit On: 31-Aug-2013 7:31 Encounter Reason: Follow up tests - Date: (08/23/13 labs)., [ADDITIONAL REASON] Follow up for chronic medical issues - The patient feels well with minor complai End: 31-Aug-2013 9:15 nts (plantar fascitis), has good energy level (sometimes good sometimes not) and is sleeping poorly. Patient has been compliant with instructions. Current medication use: no side effects and compliant w ith dosing regimen. The medical issues the patient is following up for include All identified problems below, blood sugar issues and osteoarthritis. Encounter Diagnosis: Diabetes type II,controlled no comp (250.00), Hypercholesteremia (272.0), Vitamin D deficiency, unspecified (268.9), Osteoarthritis- Generalized or Localized, Involving Unspecified Site (715.90), Foot pain (729.5), Gerd (530.81) [facility] Office Visit On: 25-May-2013 7:46 Encounter Reason: Follow up for chronic medical issues - The patient feels well with minor complaints, has good energy level and is sleeping well. Patient has been compliant with instructions. Current medication use: no End: 25-May-2013 8:41 side effects and compliant with dosing regimen. Patient sleeps 7 hours per night. Nutrition: balanced diet and no supplemental vitamins & iron. The medical issues the patient is following up for inc lude All identified problems below, blood sugar issues, gastric reflux and high cholesterol. fasting blood sugars :.Encounter Diagnosis: Diabetes type II,controlled no comp (250.00), Hypercholesteremia (272.0), Vitamin D deficiency, unspecified (268.9), Gerd (530.81), Myalgia, Unspecified(729.1) [facility] Office Visit On: 23-Feb-2013 7:29 Encounter Reason: Follow up for chronic medical issues - The patient feels well with minor complaints, has good energy level and is sleeping well. Patient has been compliant with instructions. Current medication use: no End: 23-Feb-2013 8:51 side effects and compliant with dosing regimen. Patient sleeps 7 hours per night. Nutrition: balanced diet and no supplemental vitamins & iron. The medical issues the patient is following up for inc lude All identified problems below, blood sugar issues, gastric reflux and high cholesterol. blood pressure range :, fasting blood sugars : and weight :.Encounter Diagnosis: Diabetes type II,controlled no comp (250.00), Carpal tunnel syndrome on both sides (354.0), Vitamin D deficiency, unspecified (268.9), Hypercholesteremia (272.0), Gastroparesis (536.3), Osteoarthritis- Generalized or Localized, Involving Unspecified Site (715.90) [facility] Office Visit On: 24-Nov-2012 8:23 Encounter Reason: Follow up for chronic medical issues - The patient feels well with no complaints, has good energy level and is sleeping poorly. Patient has been compliant with instructions. Current medication use: no s End: 24-Nov-2012 10:01 kadi effects and compliant with dosing regimen. Patient sleeps 5 (broken hours) hours per night. Nutrition: balanced diet. The medical issues the patient is following up for include All identified proble ms below, blood sugar issues, gastric reflux and other. weight :.Encounter Diagnosis: Diabetes type II,controlled no comp (250.00), Hypercholesteremia (272.0), Gerd (530.81), Vitamin D deficiency, unspecified (268.9), Nonspecific abnormal results of function study of thyroid (794.5) [facility] Phone Encounter On: 18-Aug-2012 15:09 Encounter Diagnosis: Hypercholesteremia (272.0) End: 18-Aug-2012 15:10 [facility] Office Visit On: 15-Aug-2012 9:57 Encounter Reason: Follow up for chronic medical issues - The patient feels well with minor complaints, has decreased energy level and is sleeping poorly. Patient has been compliant with instructions. Current medication u End: 15-Aug-2012 11:28 se: no side effects and compliant with dosing regimen. Patient sleeps 5 hours per night. Nutrition: balanced diet. The medical issues the patient is following up for include All identified problems belo w, blood sugar issues, gastric reflux and other. weight :.Encounter Diagnosis: Diabetes type II,controlled no comp (250.00), Chest pain (786.50), Vitamin D deficiency, unspecified (268.9), Gerd (530.81), Hypercholesteremia (272.0) [facility] Office Visit On: 16-May-2012 7:58 Encounter Reason: Follow up tests - Date: (05/11/12 labs)., [ADDITIONAL REASON] Follow up for chronic medical issues - The patient feels well with minor complai End: 16-May-2012 8:43 nts, has decreased energy level and is sleeping poorly. Patient has been non-compliant (with cholesterol med) with instructions. Current medication use: no side effects and non-compliant with dosing reg imen. Patient sleeps 6 hours per night. Nutrition: balanced diet and supplemental vitamins. The medical issues the patient is following up for include All identified problems below, blood sugar issues, high blood pressure and high cholesterol. fasting blood sugars :. Encounter Diagnosis: Diabetes type II,controlled no comp (250.00), Hypercholesteremia (272.0), Gerd (530.81), Vitamin D deficiency, unspecified (268.9), Epigastric pain (789.06), Hot Flashes (782.62) [facility] Office Visit On: 15-Feb-2012 8:59 Encounter Reason: Follow up for chronic medical issues - The patient feels well with minor complaints, has good energy level and is sleeping well. Patient has been compliant with instructions. Current medication use: no End: 15-Feb-2012 9:49 side effects and compliant with dosing regimen. Patient sleeps 6 hours per night. Nutrition: balanced diet and supplemental vitamins. The medical issues the patient is following up for include All ident ified problems below and blood sugar issues. fasting blood sugars : and weight :.Encounter Diagnosis: Diabetes type II,controlled no comp (250.00), Hypercholesteremia (272.0), Gastroparesis (536.3), Gerd (530.81) [facility] Office Visit On: 28-Oct-2011 10:47 Encounter Diagnosis: Unspecified Diagnosis End: 28-Oct-2011 10:50 [facility] Office Visit On: 09-Oct-2011 8:43 Encounter Reason: Follow up tests - Date: (09/25/11 labs)., [ADDITIONAL REASON] UTI - The urinary symptoms are described as burning. The symptoms have been occu End: 09-Oct-2011 9:50 rring for 1 day and have been recurrent. The urine is described as clear. The symptoms have been associated with low back pain, while the symptoms have not been associated with abdominal pain. Encounter Diagnosis: Dysuria (788.1), LOW BACK PAIN WITH RADICULOPATHY (724.4), Vitamin D deficiency, unspecified (268.9), Hypercholesteremia (272.0) [facility] Office Visit On: 24-Sep-2011 8:59 Encounter Reason: Follow up tests - Date: (09/22/11 labs)., [ADDITIONAL REASON] Follow up for chronic medical issues - The patient does not feel well (with the End: 25-Sep-2011 10:49 low back pain ). Current medication use: no side effects (restarted januvia). Impact of disease: no overall impact. Nutrition: balanced diet. The medical issues the patient is following up for include b lood sugar issues, fibromyalgia, high blood pressure, high cholesterol and hypothyroid. Encounter Diagnosis: Low back pain (724.2), Diabetes type II,controlled no comp (250.00), Vitamin D deficiency, unspecified (268.9), Gerd (530.81), Hypercholesteremia (272.0) [facility] Annotation/Addendum On: 21-Sep-2011 12:28 Encounter Diagnosis: Epigastric pain (789.06) End: 21-Sep-2011 12:33 [facility] Office Visit On: 03-Sep-2011 9:03 Encounter Reason: Follow up tests - Date: (labs scanned in 08-31-11).Encounter Diagnosis: Diabetes type II,controlled no comp (250.00), Low back pain (724.2) End: 03-Sep-2011 9:37 [facility] Visit On: 16-Feb-2011 10:34 Encounter Reason: Follow up acute care visit - Patient sleeps 6 hours per night. The medical issues the patient is following up for include UTI.Encounter Diagnosis: Urinary frequency (788.41), Impaired fasting glucose (790.21) End: 16-Feb-2011 11:40 [facility] Visit On: 02-Feb-2011 11:10 Encounter Reason: Follow up tests - Diagnostic tests include other (labs). Date: (01/27/11). Follow up visit with no current symptoms. There is no family history of breast cancer, cardiovascular disease, cystic fibrosis, End: 02-Feb-2011 13:29 Down's syndrome, mental retardation or myocardial infarction before age 55. Past medical history includes other (Vit d deficency).Encounter Diagnosis: Hyperglycemia (790.29) [facility] Office Visit On: 27-Jan-2011 9:44 Encounter Reason: Follow up acute care visit - The patient feels the same. Patient has been compliant with instructions. Current medication use: no side effects, compliant with dosing regimen and not considered effective End: 27-Jan-2011 10:05 by patient. The medical issues the patient is following up for include All identified problems below and UTI.Encounter Diagnosis: Dysuria (788.1) [facility] Office Visit On: 14-Jan-2011 15:55 Encounter Reason: Urinary problems - The onset of the urinary problems has been sudden and they have been occurring in a persistent pattern for 1 week. The course has been constant. The urinary problems are described as End: 14-Jan-2011 16:19 moderate. The urinary problem is characterized as frequency, urgency and painful urination. There has been no associated fever / chills, back pain, nausea or blood in urine.Encounter Diagnosis: Dysuria (788.1) [facility] Office Visit On: 06-Jan-2011 11:20 Encounter Reason: Urinary problems - The onset of the urinary problems has been sudden and they have been occurring in a persistent pattern for 1 week. The course has been constant. The urinary problems are described as End: 06-Jan-2011 12:07 moderate. The urinary problem is characterized as frequency, urgency and painful urination. There has been no associated fever / chills, back pain, nausea or blood in urine.Encounter Diagnosis: Dysuria (788.1) [facility] Erroneous Entry On: 17-Dec-2010 9:26 Encounter Diagnosis: Vitamin D deficiency, unspecified (268.9) End: 17-Dec-2010 9:27 [facility] Office Visit On: 17-Dec-2010 8:32 Encounter Reason: Follow up Meds - The patient feels well with minor complaints, has decreased energy level and is sleeping poorly. Patient has been non- compliant with instructions. Current medication use: experiencing s End: 17-Dec-2010 9:23 kadi effects and compliant with dosing regimen. Patient sleeps 6 hours per night. Nutrition: balanced diet.Encounter Diagnosis: Myalgia, Unspecified(729.1), Vitamin D deficiency, unspecified (268.9) [facility] Office Visit On: 17-Nov-2010 7:58 Encounter Reason: Follow up Meds - The patient does not feel well, has decreased energy level and is sleeping well. Patient has been compliant (just up till thur since she was having bm troubles) with instructions. Curre End: 17-Nov-2010 8:28 nt medication use: experiencing side effects and non-compliant with dosing regimen. Patient sleeps 7 hours per night. Nutrition: balanced diet.Encounter Diagnosis: Myalgia, Unspecified(729.1) [facility] Office Visit On: 20-Oct-2010 13:06 Encounter Reason: Follow up Meds - The patient feels well with minor complaints, has decreased energy level and is sleeping poorly. Patient has been compliant with instructions. Current medication use: no side effects an End: 20-Oct-2010 13:50 d compliant with dosing regimen. Patient sleeps 6 hours per night. Nutrition: balanced diet and supplemental vitamins.Encounter Diagnosis: Myalgia, Unspecified(729.1), Osteoarthritis- Generalized or Localized, Involving Unspecified Site (715.90), Knee pain (719.46) [facility] Annotation/Addendum On: 17-Oct-2010 9:15 Encounter Diagnosis: Myalgia, Unspecified(729.1) End: 17-Oct-2010 9:18 [facility] Office Visit On: 29-Sep-2010 9:21 Encounter Reason: Follow up tests - Date: (7-11-11 labs)., [ADDITIONAL REASON] Follow up Meds - The patient feels well with minor complaints, has good energy l End: 29-Sep-2010 10:43 evel and is sleeping poorly. Patient has been compliant with instructions. Current medication use: experiencing side effects and compliant with dosing regimen. Patient sleeps 6 hours per night. Nutrition: balanced diet and supplemental vitamins. Encounter Diagnosis: Myalgia, Unspecified(729.1), Vitamin D deficiency, unspecified (268.9), Pain in joint, unspecified site (719.40) [facility] Phone Encounter On: 22-Sep-2010 17:06 Encounter Diagnosis: Myalgia, Unspecified(729.1) End: 22-Sep-2010 17:06 [facility] Office Visit On: 15-Sep-2010 12:00 Encounter Reason: Leg Pain - This condition occurred without any known injury. The patient sustained an injury to the left hip, left thigh, left knee, left lower leg, right hip, right thigh, right knee and right lower le End: 15-Sep-2010 15:57 g. The activity began month(s) ago (one month ago). Symptoms include leg pain. There is no radiation.Encounter Diagnosis: Myalgia, Unspecified(729.1), Foot pain (729.5) [facility] Office Visit On: 02-Jun-2010 10:50 Encounter Reason: Abdominal pain - The onset of the pain has been sudden and has been occurring in a persistent pattern for 3 weeks. The course has been constant. The pain is described as a moderate burning, dull ache an End: 02-Jun-2010 11:24 d pressure sensation. The pain is described as being located in the upper abdomen. The pain does not radiate. The symptoms have no aggravating factors. The symptoms are relieved by belching. The symptom s have been associated with heartburn, while the symptoms have not been associated with constipation.Encounter Diagnosis: Epigastric pain (789.06), Gastroparesis (536.3) [facility] Office Visit On: 30-May-2010 9:37 [facility] End: 30-May-2010 9:54 Phone Encounter On: 29-May-2010 14:52 Encounter Diagnosis: Abdominal Pain,RUQ(789.01) End: 29-May-2010 14:54 [facility] Office Visit On: 19-May-2010 11:35 Encounter Reason: Abdominal pain - The onset of the pain has been sudden and has been occurring in a persistent pattern for 3 weeks. The course has been constant. The pain is described as a moderate burning, dull ache an End: 19-May-2010 12:26 d pressure sensation. The pain is described as being located in the upper abdomen. The pain does not radiate. The symptoms have no aggravating factors. The symptoms are relieved by belching. The symptom s have been associated with heartburn, while the symptoms have not been associated with constipation.Encounter Diagnosis: Gastroparesis (536.3), Epigastric pain (789.06), Abdominal Pain,RUQ(789.01) [facility] Office Visit On: 28-May-2009 14:47 Encounter Reason: Skin problems - The onset of the skin problem has been variable and has been occurring in an intermittent pattern for 3 months. The skin problem is described as mild. Encounter Diagnosis: Lesion-Unknown behavior (238.2) End: 28-May-2009 15:17 [facility] Historical Summary On: 09-Oct-2008 15:42 [facility] End: 09-Oct-2008 15:43 Historical Summary On: 01-Oct-2008 14:56 [facility] End: 01-Oct-2008 15:00 Office Visit On: 01-Oct-2008 13:15 Encounter Reason: Follow up tests - Date: (09/11/08). Encounter Diagnosis: SYMPTOMS INVOLVING RESPIRATORY SYSTEM AND OTHER CHEST SYMPTOMS; SWELLING, MASS, OR LUMP IN CHEST (786.6), Insomnia,Unspecified (327.00) End: 01-Oct-2008 14:02 [facility] Historical Summary On: 19-Sep-2008 10:17 [facility] End: 19-Sep-2008 10:17 Office Visit On: 27-Aug-2008 15:19 Encounter Diagnosis: Nonspecific abnormal results of function study of thyroid (794.5) End: 27-Aug-2008 15:23 [facility] Office Visit On: 07-Aug-2008 9:57 Encounter Reason: Lymphadenopathy - The onset of the lymphadenopathy has been acute and has been occurring in a persistent pattern for 5 days. The course has been increasing. The lymphadenopathy is described as moderate. Encounter Diagnosis: End: 07-Aug-2008 10:31 supraclavicular mass [facility] Office Visit On: 12-Jun-2008 15:52 Encounter Reason: Follow up tests - Diagnostic tests include MRI (right shoulder). Date: (06/04/08). Current symptoms include joint pains (right shoulder). Encounter Diagnosis: Shoulder pain (719.41) End: 12-Jun-2008 16:11 [facility] Office Visit On: 31-May-2008 13:22 Encounter Reason: Follow up for chronic medical issues - The patient feels well with minor complaints ,has good energy level and is sleeping poorly. Patient has been compliant with instructions. Current medication use: n End: 31-May-2008 14:09 o side effects and compliant with dosing regimen. Patient sleeps 6 hours per night. Nutrition: balanced diet and no supplemental vitamins & iron. The medical issues the patient is following up for i nclude All identified problems below and gastric reflux. blood pressure range :. Encounter Diagnosis: Gerd (530.81), Gastroparesis (536.3), Shoulder pain (719.41), Shoulder Impingment Syndrome (726.2), Foot pain (729.5) [facility] Office Visit On: 14-May-2008 13:01 Encounter Reason: Arm pain - The onset of the pain has been sudden and has been occurring in an intermittent pattern for 2 months. The course has been recurrent. The pain is described as moderate. The pain is described a End: 14-May-2008 13:40 s being located in the right shoulder and right forearm. The pain is aggravated by reaching and lifting. The pain is relieved by nothing. Encounter Diagnosis: Shoulder pain (719.41), Shoulder Impingment Syndrome (726.2) [facility] Historical Summary On: 25-Jul-2007 8:20 [facility] End: 25-Jul-2007 8:21 Historical Summary On: 19-Jul-2007 8:27 [facility] End: 19-Jul-2007 8:27 Error Encounter On: 06-Jun-2007 16:20 Encounter Reason: Physical female exam - Last seen more than 1 year ago. General health: feels well with minor complaints ,has decreased energy level and is sleeping poorly. The patient's appetite is normal. Nutrition: n End: 06-Jun-2007 16:54 o supplemental vitamins & iron. Exercises 0 days per week. Sleeps on average 4 (broken sleep) hours per night. Normal bowel and bladder habits. Safety measures include appropriate use of safety belt s and home smoke detectors , but do not include appropriate use of helmets ,counseling regarding safe sex/HIV or counseling regarding substance abuse. Current emotional problems include sleep disturbanc es (which is ). screening, mammography (06/2006) ,screening, Pap smear (03/2007) and screening, visual acuity (02/2007). Encounter Diagnosis: Pt was under the impression that she was going to be seeing Dr. Pugh and prefers that. She will res chedule with her. NO CHARGE [facility] Office Visit On: 18-May-2007 13:54 Encounter Reason: Heartburn - The onset of the heartburn has been gradual and has been occurring in a persistent pattern for years. The course has been constant. The heartburn is characterized as burning ,pain and warmth End: 18-May-2007 15:52 . The heartburn is described as being located in the upper epigastrium and epigastrium. The heartburn does not radiate. The symptoms are not aggravated by large meals ,aspirin ,citrus fruits ,alcohol ,l tiara down or stooping. The symptoms have no relieving factors. The symptoms have been associated with indigestion. Note for Heartburn: also has been spitting up some foam. 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
--- OUTSIDE RECORDS SUMMARY | 2018-04-04 15:52 | XMS RPT_ITS | Continuity of Care Document ---
:1955 Author Organization [facility] Address [address] [facility] [address] [place] [address] Phone Care Team Providers Name Role Phone Leticia Pugh DO Unavailable Sangeetha ULLOA MD, Larry Powell Unavailable Jcak Mayen MD Unavailable Jessica Cristobal Unavailable Sadiq Greer Unavailable Long RESIDENT BUYER, Allie L Unavailable Unavailable Desire Shawin Unavailable Unavailable Unavailable Unavailable Problems Name Dates [...] neg - pt will go back to reconciling clerk for hormonal reasonsnot low bs when ck in middle of nite-- depending what traditional reconciling clerk says maybe consider saliva testingwith recent abd [...] 388.30) Comments: [facility] ?? tinnitis clinic at [facility] >pt to look into - Status: [...] DO, DO, Kathleen Start : 19-Aug-2016 Active [employer] Thyroid 30 MG Oral Tablet 1 (one) Tablet Tablet daily as directed for 0 days Quantity: 30 {Tablet} Refills: 5 Ordered:13-May-2017 Shari Pugh DO, DO, Kathleen Start : 04-Mar-2017 Active Pen [place] 31G X 6 MM Miscellaneous 1 Misc [...] Quantity: 4 {Pre-filled_Pen_Syringe} Refills: 3 Ordered:23-Jul-2016 Long Allie NAZARIO L Start : 23-Jul-2016 Active Victoza 18 MG/3ML Subcutaneous Solution Pen-injector 1.8 Milligram qd sc for 0 days Quantity: 3 {Pre-filled_Pen_Syringe} Refills: 3 Ordered:13-Sep-2017 Shari Pugh DO, DO, Kathleen Start : 13-Sep-2017 Active Zetia 10 MG Oral Tablet 1 Tablet qd for 0 days Quantity: 30 {Tablet} Refills: 2 Ordered:13-Sep-2017 Lexy ISAACS LeticiaLexy Leticia Start : 13-Sep-2017 Active Comments:pt hasnt [...] : 17-Nov-2010 End : 17-Dec-2010 Inactive DRISDOL, 62397SEOC (Oral Capsule) 1 Capsule 2 xweek for [...] 09-Oct-2011 End : 14-Oct-2011 Inactive Comments:twenty ZOSTAVAX, 39098PEQ/0.65ML (Subcutaneous Solution Reconstituted) 1 For Solution x1 [...] 17-Nov-2010 End : 17-Nov-2010 Discontinued Comments:diarrhea ERGOCALCIFEROL, 62559EGOI (Oral Capsule) 1 (one) Capsule q week [...] for Tdap vaccination (Renamed from Need for gbrtreptbr-tpbmyqu-seycrxson (Tdap) vaccine, adult/adolescent) (Z23, V06.1) Status: Inactive [...] w/ Contrast Result: Comments: See Note; NOTES: [facility] Cardiovascular Services [address] [place] [address] Stress Test Echo W/Contrast MR#: [id number] Acct: [id number] Name: RADHA RAMOS Rep #: [id number] : 1955 62 From: Marcus Sánchez MD Primary Care: Leticia Pugh DO Status: REG CLI Ordering Dr: Larry Ngo [employer]-C Sex: F C Stress Results Protocol: Stress [...] Referring Physician: Larry Ngo Performed By: Millie Nieto RDCS, RVT 12/14/17 1521 Date Marcus Sánchez MD CC: DEMETRICE Pugh DO Date Dictated: 12/14/17 1343 Date Transcribed: 12/14/17 1521 Generating Plant Superintendent: Signed 10-Dec-2017 PT D/C Summary (1) Result: Comments: See Note; NOTES: [facility] Physical Therapy Health[address] [place], [place] [id number] Fax REHABILITATION SERVICES DISCHAR SUMMARY MR#: [id number] Acct: [id number] Name: RADHA RAMOS Rep #: [id number] : 1955 62 From: Morgan Barnes PT, Cert. T, OCS Referring Dr.: Gloria KNAPP Prebish Status: REG RCR Insuranc [...] please feel free to call me at [phone]. T elton you for the referral of this patient. Sincerely, Morgan Barnes PT, <Electronically signed by Morgan Barnes PT, Cert. T, OCS> 12/10/17 0758 CC: Leticia Xie JOSSELINE Signed 07-Dec-2017 Cardiology Visit Report Result: Comments: See Note; NOTES: [facility] [address] [place] [address] OFFICE VISIT Date of Service: 12/07/17 MR#: [id number] Acct: [id number] Name: RADHA RAMOS Rep #: [id number] : 1955 Provider: DEMETRICE Ngo Age/Sex: 62/F [place] [facility] Status: Signed HPI HPI Details: RADHA [...] valve regurgitation. Assessment AND Plan 1. Atypical gail st pain R07.89 Plan She does have [...] 12/07/17 0958 <Electronically signed by Larry Ngo [employer]-C> Date Larry Ngo [employer]-C Cosigner Signature: Date (if applicable) CC: Leticia Pugh DO 07-Dec-2017 12 Lead EKG performed [place] [facility] Result: Comments: See Note; NOTES: [place] [address] [place] [address] 12 Lead EKG performed [place] [facility] 12/07/17910 MR#: [id number] Acct: [id number] Name: RADHA RAMOS Rep #: [id number] : 1955 62 From: Larry Ngo NP-C Attending Dr: Larry Ngo, [employer] Status: DEP AMB Ordering Dr: Larry NgoC Date: 12/07/17 [place] [facility] Sex: F C Admitted: ORD ER #: [id number] /12 Lead EKG performed [place] [facility] 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 - Nonspecific T-abnormality. BNORMAL 12/07/17 1257 <Electronically signed by Larry Ngo [employer]-C&amp ;#62; Date Larry SPEARC CC: Leticia Pugh DO Date Dictated: 12/07/17910 Date Transcribed: 12/07/17910 Generating Plant Superintendent: ISABEL Signed 07-Dec-2017 12 Lead EKG performed [place] [facility] Result: Comments: See Note; NOTES: [facility] [address] [place] [address] 12 Lead EKG performed by [facility] 12/07/17910 MR#: [id number] Acct: [id number] Name: RADHA RAMOS Rep #: [id number] : 1955 62 From: Larry KNAPP Attending Dr: Larry Ngo [employer] Status: DEP AMB Ordering Dr: Larry Ngo Date: 12/07/17 [place] [facility] Sex: F C Admitted: ORD ER #: [id number] BMS/12 Lead EKG performed [place] [facility] ECG Report Interpretation Sinus Rhythm Poor R wave progressionElectronically signed on 12/08/2017 at 17:44 by Marcus Sánchez Software Version 8610 12/08/17 1746 Date Larry KNAPP CC: Leticia Pugh DO Date Dictated: 12/07/17910 Date Transcribed: 12/07/17910 Generating Plant Superintendent: ISABEL Signed 28-Oct-2017 Inital Evaluation (1) - PT Result: Comments: See Note; NOTES: [facility] Physical Therapy Health[address] [place], [place] [address] Fax REHABILITATION SERVICES INITIAL EVALUATION MR#: [id number] Acct: [id number] Name: RADHA RAMOS Rep #: [id number] [...] Date of Evaluation: 10/27/17 Physical Therapist: Morgan Barnes, PT, - Visit Plan Frequency: 2x /Week Duration: 4 Weeks Plan: intailly pain releive intervention modalities ,progress to DLS for abd/back SI progam,postural ex's - Subjective Subjective: This 62 y/o female presents to physical therapy with lumbar pain . Patient fell on ice Esther slipped landed buttuck/sacr um. Patient seen Dr [...] : No effect Lumbar Standing: Right Side [place] - Symptoms During Testing: Increases Lumbar Standing: Right Side [place] - Symptoms After Testing: No worse Lumbar Standing: Left Side [place] - Mechanical Resp onse: No effect Lumbar Standing: Left Side [place] - Symptoms During Testing: Increases Lumbar Standing: Left Side [place] - Symptoms After Testing: No worse Lumbar [...] to be FAXED BACK to us at [phone] for Medicare purposes. Please let me know [...] Downtime Report Result: Comments: See Note; NOTES: [facility] Medical Records Department [address] [place] [address] Downtime Report MR#: [id number] Acct: [id number] Name: RADHA RAMOS Rep #: [id number] : 1955 61 From: Herrera Hennessy PCP: Leticia Pugh DO Status: REG CLI This patient was seen during an EMR downtime August 09, 2017 - August 16, 2017. This patient may have a combination of paper and electronic documentation or all paper documentation. All documentation is viewable within the e-chart portion of [employer] for each patient visit. 21-Jul-2017 L/S Spine Min 4 Views Result: Comments: See Note; NOTES: [facility] Imaging Services [address] [place] [address] L/S Spine Min 4 Views MR#: [id number] Acct: [id number] Name: RADHA RAMOS Rep #: [id number] : 1955 F 61 From: Durga Peñaloza MD PCP: Leticia Pugh DO Status: REG CLI Study: L/S Spine Min 4 Views Date of Exam: 07/21/17 Exam# [id number] Ordering Dr: Joey Greer MD STUDY: X [...] , CC: Joey Greer; Leticia Pugh DO Generating Plant Superintendent: Signed 25-Jun-2017 Cardiology Visit Report Result: Comments: See Note; NOTES: [facility] [address] [place] [address] OFFICE VISIT Date of Service: 06/24/17 MR#: [id number] Acct: [id number] Name: RADHA RAMOS Rep #: [id number] : 1955 Provider: Nimco Vasquez Age/Sex: 61/F [place] [facility] Status: Signed HPI HPI Details: RADHA [...] 138/82 Intake Visit Reasons: 6 M FU Refrigerator Car Icer Required: No Accompanied by: none Is patient [...] More Views Result: Comments: See Note; NOTES: [facility] Imaging Services [address] [place] [address] S-I Jts 3 or More Views MR#: [id number] Acct: [id number] Name: RADHA RAMSO Rep #: [id number] : 1955 F 61 From: Frederick Pemberton MD PCP: Leticia Pugh DO Status: REG CLI Study: S-I Jts 3 or More Views Date of Exam: 05/21/17 Exam# [id number] Ordering Dr: Leticia Pugh DO STUD Y: [...] Service support , CC: Leticia Pugh DO Generating Plant Superintendent: Signed 17-Mar-2017 Abdomen/Pelvis without Cont Result: Comments: See Note; NOTES: [facility] Imaging Services [address] [place] [address] Abdomen/Pelvis without Cont MR#: [id number] Acct: [id number] Name: RADHA RAMOS Rep #: [id number] : 1955 F 61 From: Rahel Salazar MD PCP: Leticia Pugh DO Status: REG CLI Study: Abdomen/Pelvis without Cont Date of Exam: 03/17/17 Exam# [id number] Ordering Dr: Casimiro Saravia MD STUDY: CT [...] at 16:04 EST Tel , Service support [phone], CC: Casimiro Saravia MD; Leticia Pugh DO Generating Plant Superintendent: Signed 15-Feb-2017 Toe(s) Min 2 Views Result: Comments: See Note; NOTES: [facility] Imaging Services [address] [place] [address] Toe(s) Min 2 Views MR#: [id number] Acct: [id number] Name: RADHA RAMOS Rep #: [id number] : 1955 F 61 From: Juan Henriquez MD PCP: Leticia Pugh DO Status: REG CLI Study: Toe(s) Min 2 Views Date of Exam: 02/15/17 Exam# [id number] Ordering Dr: Tanvi Hawthorne STUDY: X-RAY LEFT [...] , Service support , CC: Tanvi Hawthorne [employer]; Leticia Pugh DO Generating Plant Superintendent: Signed 22-Dec-2016 Stress Test Echo w/o Contrast Result: Comments: See Note; NOTES: [facility] Cardiovascular Services [address] [place] [address] Stress Test Echo w/o Contrast MR#: [id number] Acct: [id number] Name: RADHA RAMOS Rep #: [id number] : 1955 61 From: Marcus Sánchez MD [...] MD Performed By: Millie Torrez RDCS, RVT 12/22/16 170 Date Marcus Sánchez MD CC: Leticia Pugh DO; Marcus Sánchez MD Date Dictated: 12/22/16 130 Date Transcribed: 12/22/161703 Generating Plant Superintendent: Signed 19-Nov-2016 12 Lead Electrocardiogram Result: Comments: See Note; NOTES: [facility] Cardiovascular Services [address] [place] [address] 12 Lead EKG 11/14/16156 MR#: [id number] Acct: [id number] Name: RADHA RAMOS Rep #: [id number] : 1955 61 From: Guevara Casanova MD [...] Confirmed by SAMANTHA LI MD, GUEVARA ([id number]), video editor JUNE HENNESSY (57) on 11/16/2016 1:29:52 PM Referred By: GAL Confirmed By:GUEVARA CSAANOVA MD 11/16/16 1329 Date Guevara Casanova MD CC: Leticia Pugh DO Date Dictated: 11/14/16156 Date Transcribed: 11/14/16156 Generating Plant Superintendent: Signed 14-Nov-2016 Discharge Instruction Result: Comments: See Note; NOTES: [facility] Medical Records Department [address] [place] [address] Discharge Instruction 11/14/16 0345 MR#: [id number] Acct: [id number] Name: JEANMARIE RAMOS Rep #: [id number] : 1955 61 From: Roscoe Diaz MD [...] your Primary Care Provider. Call [facility] ([phone]) or report to the closest Emergency Room. Call 911 if necessary. 11/14/16 0637 <Electronically signed by Roscoe Diaz MD> Date Roscoe Maher Cosigner Signature (If Indicated): Date CC: Leticia Pugh DO 14-Nov-2016 Emergency Department Summary Result: Comments: See Note; NOTES: [facility] Medical Records Department [address] [place] [address] Emergency Department Summary 11/14/16 0343 MR#: [id number] Acct: [id number] Name: RADHA RAMOS Rep #: [id number] : 1955 61 From: Roscoe Diaz MD [...] your Primary Care Provider. Call [facility] ([phone]) or report to the closest Emergency Room. Call 911 if necessary. 11/14/16 0636 <Electronically kristin d by Roscoe Diaz MD> Date Roscoe Diaz MD Cosigner Signature (If Indicated): Date CC: Leticia Pugh DO 14-Nov-2016 Chest 1 View (Portable) Result: Comments: See Note; NOTES: [facility] Imaging Services [address] [place] [address] Chest 1 View (Portable) MR#: [id number] Acct: [id number] Name: RADHA RAMOS Rep #: [id number] : 1955 F 61 From: Nelson Coronado PCP: Leticia Pugh DO Status: REG ER Study: Chest 1 View (Portable) Date of Exam: 11/14/16 Exam# [id number] Ordering Dr: Roscoe Diaz MD STUDY: X- [...] CC: Leticia Pugh DO; Roscoe Diaz MD Generating Plant Superintendent: Signed 13-Nov-2016 US Thyroid Biopsy Result: Comments: See Note; NOTES: [facility] Imaging Services [address] [address] US Thyroid Biopsy MR#: [id number] Acct: [id number] Name: MARCELA RAMOSUsman House Rep #: [id number] D OB: 1955 F 61 From: Ross Saxena MD PCP: Leticia Pugh DO Status: REG CLI Study: US Thyroid Biopsy Date of Exam: 11/13/16 Exam# [id number] Ordering Dr: James Casey MD STUDY: THYROID [...] Ross Saxena MD at 12:24 EDT Tel [phone], Service support , CC: James Casey MD; Leticia Pugh DO Generating Plant Superintendent: Signed 24-Sep-2016 Thyroid Result: Comments: See Note; NOTES: [facility] Imaging Services [address] [place] [address] Verdana 4d Thyroid MR#: [id number] Acct: [id number] Name: RADHA RAMOS Rep #: [id number] : 1955 F 60 From: Kalpana Sharp MD PCP: Leticia Pugh DO Status: REG CLI Study: Thyroid Date of Exam: 09/24/16 Exam# [id number] Ordering Dr: Lety Ball [employer]-C STUDY: THYROID ULTRASOUND REASON FOR EXAM: Female, [...] , Service support , CC: Lety Ball [employer]; Leticia Pugh DO Generating Plant Superintendent: Signed 11-Aug-2016 SCREENING MAMM (CAD), BILAT Result: Comments: See Note; NOTES: [facility] Imaging Services [address] [place] [address] Verdana 4d SCREENING MAMM (CAD), BILAT MR#: [id number] Acct: [id number] Name: RADHA RAMOS Rep #: [id number] : 1955 F 60 From: Ross Saxena MD PCP: Leticia Pugh DO Status: [facility] Study: SCREENING MAMM (CAD), BILAT Date of Exam: 08/11/16 Exam# [id number] Ordering Dr: Zhane Martinez MD MAMMOGRAPHY - [...] delay biopsy of a clinically suspicious abnormality. [id number] Electronically Signed: Ross Saxena MD at 13:32 EDT Tel [phone], Service support , CC: Zhane Angeles MD; Leticia Pugh DO Generating Plant Superintendent: Signed 17-Jul-2016 Upper GI w/BA Swallow Result: Comments: See Note; NOTES: [facility] Imaging Services [address] [place], [place] [address] [place] [address] Verdana 4d Upper GI w/BA Swallow MR#: [id number] Acct: [id number] Name: RADHA RAMOS Rep #: [id number] : 1955 F 60 From: Coreen Mata MD PCP: Leticia Pugh DO Status: REG CLI Study: Upper GI w/BA Swallow Date of Exam: 07/17/16 Exam# [id number] Ordering Dr: James Garrido MD CLINICAL HISTORY: [...] , CC: Leticia Pugh DO; James Garrido Generating Plant Superintendent: Signed 27-Feb-2016 Chest PA and Lateral Result: Comments: See Note; NOTES: [facility] Imaging Services [address] [place] [address] Verdana 4d Chest PA and Lateral MR#: [id number] Acct: [id number] Name: RADHA RAMOS Rep #: [id number] : 1955 F 60 From: Segun Loomis MD PCP: Leticia Pugh DO Status: REG CLI Study: Chest PA and Lateral Date of Exam: 02/27/16 Exam# [id number] Ordering Dr: Leticia Pugh DO STUD Y: [...] at 15:10 EST Tel , Service support [phone], CC: Leticia Pugh DO Generating Plant Superintendent: Signed 24-Feb-2016 [facility] Progress Note Result: Comments: See Note; NOTES: [facility] [address] [place] [address] [facility] Progress Note 02/24/16 1305 MR#: [id number] Acct: [id number] Name: Keyur RAMOS Rep #: [id number] : 1955 60 From: Ruslan Sesay MD [...] mellitus macular edema: D Lisa betes mellitus penitentiary insulin use: with termite technician use Laterality: L Chronic kidney disease stage: [...] Date Recorded By Document 02/24/16 12:35 CHRIS [id number] 02/24/16 12:38 CHRIS 02/24/16 12:35 Wound Center [...] Recorded Date Recorded By Document 02/24/16 12:38 CHRIS [id number] 02/24/16 12:39 CHRIS 02/24/16 12:38 Wound Center [...] after Cleansing No -Bioengineered Tissue No -Cetacaine [place] No -Bleedin g Controlled with NA -Treatment [...] Recorded Date Recorded By Document 02/24/16 12:38 [facility] 993 02/24/16 12:39 02/24/16 12:38 Wound Center [...] ter Cleansing No -Bioengineered Tissue No -Cetacaine [place] No -Bleeding Controlled with NA -Treatment Response [...] HOSPITAL [facility] [address] [place] [address] [facility] Progress Note 02/10/16 1325 MR#: [id number] Acct: [id number] Name: Keyur RAMOS Rep #: [id number] : 1955 60 From: Ruslan Sesay MD [...] mellitus macular edema: D Diab etes mellitus penitentiary insulin use: with penitentiary use Laterality: L Chronic kidney disease stage: [...] Date Recorded By Document 02/10/16 13:01 DL [id number] 02/10/16 13:07 DL 02/10/16 13:01 Wound Center Nurse 1 [Ulcer Assessment] 1-abdomen -Current Size (cm) - Length 0 -Current Size (cm) - Width 0 -Current Size (cm) - Depth 0 -Total Square Cm 0 -Photo Take n Yes -Exudate Amt None Present (0 %) -Wound Margin Flat AND Intact -Granulation Amt Large (67-100%) -Granulation Quality [place] -Necrosis Amt None Present (0 %) -Structure [...] Date Recorded By Document 02/10/16 13:15 MW [id number] 02/10/16 13:17 02/10/16 13:15 Wound Center Nurse 2 [P rocedure/Treatment] -Time 13:16 -Correct Patient Yes -Correct Side, Site, Position Yes -Correct Procedure Yes -Procedure Performed No -Wound/Ulcer Outcome Not Healed -Ulcer Cleansing Not Cleansed -Foul Odor after Cleansing No -Bioengineered Tissue No -Cetacaine [place] No -Topical Lidocaine (%) 4 -Lidocaine (ml) [...] Recorded Date Recorded By Document 02/10/16 13:15 [id number] 02/10/16 13:17 02/10/16 13:15 Wound Center Nurse 2 1-abdomen -Time 13:16 - Correct Patient Yes -Correct Side, Site, Posi tion Yes -Correct Procedure Yes -Procedure Performed No -Wound/Ulcer Outcome Not Healed -Ulcer Cleansing Not Cleansed -Foul Odor after Cleansing No - Bioengineered Tissue No -Cetacaine [place] No -Topical Lidocaine (%) 4 -Lidocaine (ml) [...] Progress Note Result: Comments: See Note; NOTES: [facility] [address] [place] [address] [facility] Progress Note 02/03/16 1336 MR#: [id number] Acct: [id number] Name: Keyur RAMOS Harsh Rep #: [id number] : 1955 60 From: Ruslan Sesay MD [...] Diabetes mellitus macular edema: D Diabetes mellitus penitentiary insulin use: with penitentiary use Latera lity: L Chronic kidney disease [...] Recorded Date Recorded By Document 13:02 DL [id number] 02/03/16 13:09 DL 02/03/16 13:02 Wound Center Nurse 1 [Ulcer Assessment] 1-abdomen -Current Size (cm) - Length 0.5 -Current Size (cm) - Width 2.4 -Current Size (cm) - Depth 0.3 -Tota l Square Cm 1.20 -Photo Taken No -Exudate Amt Small (1-33%) -Exudate Type Serosanguineous -Wound Margin Distinct, Outline Attached -Granulation Amt Large (67-100%) - Granulation Quality [place] -Necrosis Am t Small (1-33%) -Necrotic Tissue [...] Date Recorded By Document 02/03/16 13:28 CHRIS [id number] 02/03/16 13:32 CHRIS 02/03/16 13:28 Wound Center [...] Cleansing No -Bioengi neered Tissue No -Cetacaine [place] No -Topical Lidocaine (%) 4 -Lidocaine (ml) [...] Date Recorded By Document 02/03/16 13:28 CHRIS [id number] 02/03/16 13:32 CHRIS 02/03/16 13:28 Wound Center [...] after Cleansing No -Bioengineered Tissue No -Cetacaine [place] No -Topical Lidocaine (%) 4 -Lidocaine (ml) [...] diabetic female who is in her normal gan of health until approximately 3 weeks [...] glycemic control. 02/03/16 1342 <Electronically signed by Ruslna Sesay MD> Date Ruslan Sesay MD CC: Signed 27-Jan-2016 [facility] Progress Note Result: Comments: See Note; NOTES: [facility] [address] [place] [address] [facility] Progress Note 01/27/16 1333 MR#: [id number] Acct: [id number] Name: Keyur RAMOS Rep #: [id number] : 1955 60 From: Ruslan Sesay MD [...] Diabetes mellitus macular edema: D Diabetes mellitus penitentiary insulin use: with penitentiary use Laterali ty: L Chronic kidney disease [...] Recorded Date Recorded By Document 01/27/16 12:44 [id number] 01/27/16 12:54 01/27/16 12:44 Wound Center Nurse [...] Date Recorded By Document 01/27/16 13:23 MW [id number] 01/27/16 13:31 MW 01/27/16 13:23 Wound Center Nurse 2 [Procedure/Treatment] 1-abdomen -Time 13 :24 -Correct Patient Yes -Correct Side, Site, Position Yes -Correct Procedure Yes -Procedure Performed No -Wound/Ulcer Outcome Not Healed -Ulcer Cleansing Rinsed/ Irrigated with Saline -Foul Odor after Cleansing No -Bioengineered Tissue No -Cetacaine [place] No -Bleeding Controlled with NA [See Physician [...] Date Recorded By Document 01/27/16 13:23 MW [id number] 01/27/16 1 3:31 MW 01/27/16 13:23 Wound Center Nurse 2 1-abdomen -Time 13:24 -Correct Patient Yes -Correct Side, Site, Position Yes -Correct Procedure Yes -Procedure Performed No -Wound/Ulcer Outcome Not Healed - Ulcer Cleansing Rinsed/ Irrigated with Saline -Foul Odor after Cleansing No -Bioengineered Tissue No -Cetacaine [place] No -Bleeding Controlled with NA No debridement was completed today Assessment/Pl an Active Problems Abscess of abdominal wall (Acute) Post-op pain (Acute) Wound, open, abdominal wall, anterior (Acute) Diabetes mellitus (Chronic) Assessment: This is a 60-year-old diabetic Caucas[place] n female who is in her normal [...] Progress Note Result: Comments: See Note; NOTES: [facility] [address] [place] [address] [facility] Progress Note 01/20/16 1521 MR#: [id number] Acct: [id number] Name: RADHA RAMOS Rep #: [id number] : 1955 60 From: Ruslan Sesay MD [...] mellitus complication status: without complication Diabetes mellit penitentiary insulin use: with termite technician use Qualifier Code : (E11.9) Type 2 [...] cavity was packed with gauze. The pa tient was then referred to the Wound Healing [...] Record ed By Document 01/20/16 14:33 DL [id number] 01/20/16 14:36 DL 01/20/16 14:33 Wound Center [...] Recorded Date Recorded By Document 01/20/16 15:06 [id number] 01/20/16 15:07 01/20/16 15:06 Wound Center Nurse 2 [Procedure/Treatment] -Time 15:06 -Correct Patient Yes -Correct Side, Site, Position Yes -Correct Procedure Yes -Procedure Performed No -Wound/Ulcer Outcome Not Healed -Ulcer Cleansing Rinsed/ Irrigated with Saline -Foul Odor after Cleansing No -Bioengineered Tissue No - Cetacaine [place] No [See Physician Procedure note for Specifics] Neurological: Cranial nerves II-XII grossly intact, Neuro grossly intact Psych/Mental Status: Normal Affect, Appropriate, Alert and oriented to time, place, person, mood and affe ct Debridement Note Post-Debridement Measurements/Treatment - Nurse 2 - General Ulcer CM Notes Start: 01/09/16 11:20 Freq: Status: Active Activity Type Activity Date Activity User E-Sign Co-Sign De tail Recorded Client Recorded Date Recorded By Document 01/20/16 15:06 [id number] 01/20/16 15:07 01/20/16 15:06 Wound Center Nurse 2 1-abdomen -Time 15:06 - Correct Patient Yes -Correct Side, Site, Po sition Yes -Correct Procedure Yes -Procedure Performed No -Wound/Ulcer Outcome Not Healed -Ulcer Cleansing Rinsed/ Irrigated with Saline -Foul Odor after Cleansing No -Bioengineered Tissue No -Cetacaine [place] No No debridement was completed today Assessment/Plan [...] Progress Note Result: Comments: See Note; NOTES: [facility] Wound Healing [facility] [address] [place] [address] Wound Heal Ctr Progress Note 01/06/16 1307 MR#: [id number] Acct: [id number] Name: RADHA RAMOS Rep #: [id number] : 1955 60 From: Ruslan Sesay MD PCP: Leticia Pugh DO Status: REG RCR Y Location: WC (1) Abscess of abdominal wall Status: Acute Current Visit: Yes Code: L02.2 11 (2) Diabetes mellitus Status: Chronic Current Visit: Yes Qualifiers: Diabetes mellitus type: type 2 Diabetes mellitus complication status: with skin complications Diabetes mellitus complication deta il: with other skin complication Diabetes mellitus penitentiary insulin use: with penitentiary use Qualifier Code: (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 Progress of Wound: [...] Date Recorded By Document 01/06/16 12:42 TM [id number] 01/06/16 12:51 TM 01/06/16 12:42 Wound Center [...] Date Recorded By Document 01/06/16 12:54 DV [id number] 01/06/16 13:00 DV 01/06/16 12:54 Wound Center Nurse 2 [Procedure/Treatment] -Time 12:59 -Correct Patient Yes -Correct Side, Site, Position Yes -Correct Procedure Yes -Procedure Performed No -Wound/Ulcer Outcome Not Healed -Ulcer Cleansing Rinsed/ Irrigated with Saline -Foul Odor after Cleansing No -Bioengineered Tissue No -Cetacaine [place] No -Bleeding Controlled with NA -Treatment Response [...] Date Recorded By Document 01/06/16 12:54 DV [id number] 01/06/16 13:00 DV 01/06/16 12:54 Wound Center Nurse 2 1-abdomen -Time 12:59 -Correct Patient Yes -Correct Side, Site, Position Yes -Tamar ect Procedure Yes -Procedure Performed No -Wound/Ulcer Outcome Not Healed -Ulcer Cleansing Rinsed/ Irrigated with Saline -Foul Odor after Cleansing No - Bioengineered Tissue No -Cetacaine [place] No -Bleed ing Controlled with NA -Treatment Response Procedure Tolerated Well No debridement was completed today Assessment/Plan Active Problems Abscess of abdominal wall (Acute) Wound, open, abdominal wall, anterior (Acute) Diabetes mellitus (Chronic) Assessment: This is a 60-year-old diabetic female who is in her normal state of health until approximately 3 weeks prior to presentation, at [facility] time she developed an abscess [...] Progress Note Result: Comments: See Note; NOTES: [facility] W[facility] [address] [place] [address] Wound [facility]al Ctr Progress Note 12/30/15 1625 MR#: [id number] Acct: [id number] Name: RADHA RAMOS Rep #: [id number] : 1955 60 From: Ruslan Sesay MD PCP: Leticia Pugh DO Status: REG RCR Y Location: WC (1) Abscess of abdominal wall Status: Acute Current Visit: Yes Code: L02.2 11 (2) Diabetes mellitus Status: Chronic Current Visit: Yes Qualifiers: Diabetes mellitus type: type 2 Diabetes mellitus complication status: with skin complications Diabetes mellitus complication deta il: with other skin complication Diabetes mellitus termite technician insulin use: with penitentiary use Qualifier Code: (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 Code: E11.9 (3) Hyperlipide grzegorz Status: Chronic Current Visit: No Qualifiers: Hyperlipidemia type: mixed hyperlipidemia Qualifier Code: (E78.2) Mixed hyperlipidemia Code: E78.5 (4) Wound, open, abdominal wall, anterior Status: Ac chitina Current Visit: Yes Qualifiers: Encounter type: subsequent encounter Qualifier Code: (S31.109D) Unspecified open wound of abdominal wall, unspecified quadrant without penetration into peritoneal cavi ty, subsequent encounter Code: S31.109A (5) Mitral valve prolapse Status: Chronic Current Visit: No Code: I34.1 Type of Wound Date of Service: 12/30/15 Chief Complaint: Abscess of left lateral abdomi [...] [facility]. Progress of [...] Date Recorded By Document 6 14:19 TM [id number] 12/30/15 14:37 TM 12/30/15 14:19 Wound Center [...] Thickened -Granulation Amt Small (1-33%) -Granulation Quality [place] Red -Slough/Fibrin Yes -Necro sis Amt Small [...] Recorded Date Recorded By Document 12/30/15 16:21 [id number] 12/30/15 16:22 12/30/15 16:21 Wound Center Nurse 2 [P rocedure/Treatment] 1-abdomen -Time 16:21 -Correct Patient Yes -Correct Side, Site, Position Yes -Correct Procedure Yes -Procedure Performed No -Wound/Ulcer Outcome Not Healed -Ulcer Cleansing Rinsed/ I rrigated with Saline -Foul Odor after Cleansing No -Bioengineered Tissue No -Cetacaine [place] No -Bleeding Controlled with NA -Treatment Response [...] Recorded Date Recorded By Document 12/30/15 16:21 [id number] 12/30/15 16:22 12/30/15 16:21 Wound Center Nurse 2 1-abdomen -Time 16:21 -Correct Patient Yes -Correct Side, Site, Position Yes -Correct Procedure Yes -Procedure Performed No -Wound/Ulcer Outcome Not Healed -Ulcer Cleansing Rinsed/ Irrigated with Saline -Foul Odor after Cleansing No -Bioengi neered Tissue No -Cetacaine [place] No -Bleeding Controlled with NA -Treatment Response [...] AND Physical Result: Comments: See Note; NOTES: [facility] Wound Healing Center [address] [place] [address] Wound Ctr History AND Physical 12/23/15 1708 MR#: [id number] Acct: [id number] Name: RADHA TERRY Rep #: [id number] : 1955 60 From: Ruslan Sesay MD PCP: Leticia Pugh DO Status: REG RCR Y Location: WC (1) Abscess of abdominal wall Status: Acute Current Visit: Yes Code: L02 .211 (2) Diabetes mellitus Status: Chronic Current Visit: Yes Qualifiers: Diabetes mellitus type: type 2 Diabetes mellitus complication status: with skin complications Diabetes mellitus complication de tail: with other skin complication Diabetes mellitus termite technician insulin use: with penitentiary use Qualifier Code: (E11.628) Type 2 diabetes [...] tumor. 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 Lives: Spouse/ Significant Other Smoking Status: [...] perfused Wound Measurements and Assessment NOE - Patricia duvall 1 - General Ulcer Measurement Start: 12/23/15 12:46 Freq: Status: Active Activity Type Activity Date Activity User E-Sign Co-Sign Detail Recorded Client Recorded Date Recorded By Document 12/23/15 15:16 [id number] 12/23/15 15:38 12/23/15 15:16 Wound Center Nurse [...] Recorded Date Recorded By Document 12/23/15 16:42 [id number] 12/23/15 16:44 12/23/15 16: 42 Wound Center Nurse 2 [Procedure/Treatment] 1-abdomen -Time 16:42 -Correct Patient Yes -Correct Side, Site, Position Yes -Correct Procedure Yes -Wound/Ulcer Outcome Not Healed -Ulcer Cleansing Rinsed / Irrigated with Saline -Foul Odor after Cleansing No -Bioengineered Tissue No -Cetacaine [place] No -Bleeding Controlled with NA -Treatment Response [...] Recorded Date Recorded By Document 12/23/15 16:42 [id number] 12/23/15 16:44 12/23/15 16:42 Wound Center Nurse 2 1-abdomen -Time 16:42 -Correct Patie nt Yes -Correct Side, Site, Position Yes -Correct Procedure Yes -Wound/Ulcer Outcome Not Healed -Ulcer Cleansing Rinsed/ Irrigated with Saline -Foul Odor after Cleansing No -Bioengineered Tissue No -Cet acaine [place] No -Bleeding Controlled with NA -Treatment Response Procedure Tolerated Well No debridement was completed today Assessment/Plan Active Problems Abscess of abdominal wall (Acute) Wound, open, abdominal wall, anterior (Acute) Diabetes mellitus (Chronic) Hyperlipidemia (Chronic) Mitral valve prolapse (Chronic) Assessment: This is a 60-year-old diabetic female who is in her n ormal state of health until approximately 3 weeks [...] WITH Contrast Result: Comments: See Note; NOTES: [facility] Imaging Services [address] [place] [address] Verdana 4d Abdomen/Pelvis WITH Contrast MR#: [id number] Acct: [id number] Name: MILO RAMOS Rep #: [id number] : 1955 F 60 From: Jack Hernandez MD PCP: Leticia Pugh DO Status: REG CLI Study: Abdomen/Pelvis WITH Contrast Date of Exam: 12/12/15 Exam# [id number] Ordering Dr: Leticia Pugh DO STUDY: CT [...] MD at 17:46 EDT , Service support [phone], CC: Leticia Pugh DO Generating Plant Superintendent: Signed 25-Oct-2015 Chest WITH Contrast Result: Comments: See Note; NOTES: [facility] Imaging Services [address] [place] [address] Verdana 4d Chest WITH Contrast MR#: [id number] Acct: [id number] Name: RADHA RAMOS Rep #: [id number] : 1955 F 60 From: Emerson Centeno MD PCP: Leticia Pugh DO Status: REG CLI Study: Chest WITH Contrast Date of Exam: 10/25/15 Exam# [id number] Ordering Dr: Marcus Sánchez MD [facility] DY: CT CHEST WITH CONTRAST REASON FOR [...] MD at 21:00 EDT , Service support [phone], CC: Leticia Pugh DO; Marcus Sánchez MD Generating Plant Superintendent: Signed 05-Sep-2015 ELECTROCARDIOGRAM, COMPLETE (ECG) (64435) Comments: nsr no acute chg Result: [MEASUREMENTS ANALYSIS] Date of Test: 09/05/2015 14:41:33; Heart Rate: 82; IN Interval: 152; QRS: 100; QT Interval: 366; Corrected QT Interval (QTc): 404; P Wave [place]: 62; QRS Wave [place]: 42; T Wave [place] : 23; Blood Pressure: 122/82 [ECG DIAGNOSTIC STATEMENTS] Date of Test: 09/05/2015 14:41:33; Summary: Sinus Rhythm WITHIN NORMAL LIMITS 08-Aug-2015 Bilat Scrn Digital AND CAD Result: Comments: See Note; NOTES: [facility] Imaging Services [address] [place] [address] Verdana 4d Bilat Scrn Digital AND CAD MR#: [id number] Acct: [id number] Name: RADHA RAMOS Rep #: [id number] : 1955 F 59 From: Ross Saxean MD PCP: Leticia Pugh DO Status: REG CLI Study: Bilat Scrn Digital AND CAD Date of Exam: 08/08/15 Exam# [id number] [facility]3] Dr: Zhane Angeles MD MAMMOGRAPHY - BILATERAL [...] will be sent to the patient by [facility] within 30 days. Approximately 10% of breast cancers are not detected by mammography. A normal mammogram should not delay biopsy of a clinically suspicious abnormality. [id number] Electron ically Signed: Ross Saxena MD at 10:53 EDT Tel [phone], Service support [phone], CC: Zhane Angeles MD; Leticia Pugh DO Generating Plant Superintendent: Signed 15-Mar-2015 ELECTROCARDIOGRAM, COMPLETE (ECG) (03765) Result: [MEASUREMENTS ANALYSIS] Date of Test: 03/15/2015 11:59:12; Heart Rate: 78; IN Interval: 126; QRS: 100; QT Interval: 380; Corrected QT Interval (QTc): 411; P Wave [place]: 39; QRS Wave [place]: 44; T Wave [place] : 27; Blood Pressure: 126/82 [ECG DIAGNOSTIC STATEMENTS] Date of Test: 03/15/2015 11:59:12; Summary: Sinus Rhythm WITHIN NORMAL LIMITS 13-Feb-2015 PT D/C of Non Returning Pt. Result: Comments: See Note; NOTES: [facility] Physical Therapy [facility] [place] [address] Fax REHABILITATION RVICES DISCHARGE SUMMARY MR#: [id number] Acct: [id number] Name: RADHA RAMOS Rep #: [id number] : 1955 59 From: Morgan Barnes Referring Dr.: Joey Kebede DPKeyur Status: PRE RCR Eval [...] <Electronically signed by Morgan Barnes > 02/13/15 173 CC: Joey Kebede DPM; Leticia Pugh DO Signed 05-Dec-2014 Inital Evaluation - PT Result: Comments: See Note; NOTES: [facility] Physical Therapy [facility] [place] [id number] Fax REHABILITATION SERVICES INITIAL EVALUATION MR#: [id number] Acct: [id number] Name: RADHA RAMOS Rep #: [id number] : 1955 59 From: Morgan Barnes Referring Dr.: Joey Kebede DPM Status: REG R Insurance: [employer] [facility] Date: DATE OF SERVICE: 11/29/2014 PHYSICIAN: Joey Kebede DPM. SUBJECTIVE: This patient by the name of Radha Richard who was born on 1955 was referred to [facility] with diagnosis of medical complexity issue of [...] cuff repair. VOCATION: The patient works at [employer]. OBJECTIVE: OBSERVATION OF POSTURE: The patient has [...] exercises. Morgan Barnes, PT T: NTS JOB: [id number] <Electronically signed by Morgan Barnes > 12/05/14 1319 CC: Signed For Medicare only, by signing this I certify the plan of care. Physicians Signature Date 28-Sep-2014 Discharge Instruction Result: Comments: See Note; NOTES: [facility] Medical Records Department [address] [place] [address] Instructions for Home/Discharge Instructions 09/28/14 1826 MR#: [id number] ct: [id number] Name: RADHA RAMOS Rep #: [id number] : 1955 58 From: Joey Kebede DPM PCP: Leticia Pugh DO Status: REG [facility] Discharge Diet: Light diet - advance as [...] signed by Joey Kebede DPM> Date Joey Kebede DPM CC: Leticia Pugh DO 28-Sep-2014 Foot min 3 Views Result: Comments: See Note; NOTES: [facility] Imaging Services [address] [place] [address] Radiology Report MR#: [id number] Acct: [id number] Name: RADHA RAMOS Rep #: [id number] : 1955 F 58 From: Rohit Zamarripa MD PCP: Leticia Pugh DO Status: [facility] Study: Foot min 3 Views Date of Exam: 09/28/14 Exam# [id number] Ordering Dr: Joey Kebede DPM STUDY: X-RAY [...] FACR at 20:28 EDT , Service support [phone], RAD/Foot min 3 Views IMPRESSION: Status post osteotomy of the posterior pr ocess of the calcaneus and stabilization with a cannulated screw. Alignment is anatomical and no immediate post surgical complications are seen. Cast is in place. Electronically Signed: Rohit laird MD, FACR at 20:28 EDT , Service support [phone], CC: Joey Kebede DPM; Leticia Pugh DO Generating Plant Superintendent: Signed 28-Sep-2014 Calcaneus min 2 Views Result: Comments: See Note; NOTES: [facility] Imaging Services [address] [place] [address] Radiology Report MR#: [id number] Acct: [id number] Name: RADHA RAMOS Rep #: [id number] : 1955 F 58 From: Rohit Zamarripa MD PCP: Leticia Pugh DO Status: [facility] Study: Calcaneus min 2 Views Date of Exam: 09/28/14 Exam# [id number] Ordering Dr: Joey Kebede DPM Mindy MURPHY: X-RAY - LEFT CALCANEUS REASON FOR EXAM: [...] FACR at 20:32 EDT , Service support [phone], RAD/Calcaneus min 2 Views IMPRESSION: Status Post osteotomy of the posterior process of the calcaneus and stabilization with a cannulated screw. Alignment is anatomical and no immediate post surgical complications are seen. Electronically Signed: Rohit Zamarripa MD, FACR at 20:32 EDT , Service support [phone], CC: Joey Kebede DPM; Leticia Pugh DO Generating Plant Superintendent: Signed 27-Aug-2014 Lower Ext Joint Only (Routine) Result: Comments: See Note; NOTES: [facility] Imaging Services [address] [place] [address] MRI Report MR#: [id number] Acct: [id number] Name: RADHA RAMOS Harsh Rep #: [id number] : 1955 F 58 From: Rohit Zamarripa MD PCP: Leticia Pugh DO Status: REG CLI Study: Lower Ext Joint Only (Routine) Date of Exam: 08/27/14 Exam# [id number] Ordering Dr: Joey Kebede DPM STUDY: MRI [...] FACR at 17:00 EDT , Service support [phone], Fax CC: Joey Kebede MD; Leticia Pugh DO Generating Plant Superintendent: Signed 27-Aug-2014 Lower Ext Joint Only (Routine) Result: Comments: See Note; NOTES: [facility] Imaging Services [address] [facility] [place] [place] [address] MRI Report MR#: [id number] Acct: [id number] Name: RADHA RAMOS Rep #: [id number] : 1955 F 58 From: Rohit Zamarripa MD PCP: Leticia Pugh DO Status: REG CLI Study: Lower Ext Joint Only (Routine) Date of Exam: 08/27/14 Exam# [id number] Ordering Dr: Joey Kebede DPM ADDENDUM by [...] FACR at 14:08 EDT , Service support [phone], 09/17/14 1408 Date cc: Joey Kebede DPM; [...] at 17:00 EDT , Service suppor t [phone], CC: Joey Kebede DPM; Leticia Pugh DO Generating Plant Superintendent: Signed 03-Aug-2014 Bilat Scrpatricia Digital AND CAD Result: Comments: See Note; NOTES: [facility] Imaging Services [address] [place] [address] Breast Imaging Report MR#: [id number] Acct: [id number] Name: RADHA RAMOS Rep #: [id number] : 1955 F 58 From: Ross Saxena MD PCP: Leticia Pugh DO Status: REG CLI Study: Faviola Vincent Digital AND CAD Date of Exam: 08/03/14 Exam# [id number] Ordering Dr: Lelo Angeles MD MAMMOGRAPHY - [...] be sent to the patient by the [facility] within 30 days. Approximately 10% of breast cancers are not detected by mammography. A normal mammogram should not delay biopsy of a clinically suspicious abnormality. Electronically Kristin d: Ross Saxena MD at 13:16 EDT Tel [phone], Service support [phone], CC: Zhane Angeles MD; Leticia Pugh DO Generating Plant Superintendent: Signed 03-Aug-2014 Bilat Scrpatricia Digital AND CAD Result: Comments: See Note; NOTES: [facility] Imaging Services [address] [place] [address] Breast Imaging Report MR#: [id number] Acct: [id number] Name: RADHA RAMOS Rep #: [id number] : 1955 F 58 From: Ross Saxena MD PCP: Leticia Pugh DO Status: REG CLI Study: Faviola Vincent Digital AND CAD Date of Exam: 08/03/14 Exam# [id number] Ordering Dr: Lelo Angeles MD MAMMOGRAPHY - [...] be sent to the patient by the [facility] within 30 days. Approximately 10% of breast cancers are not detected by mammography. A normal mammogram should not delay biopsy of a clinically suspicious abnormality. Electronically Kristin d: Ross Saxena MD at 13:16 EDT Tel [phone], Service support [phone], CC: Zhane Angeles MD; Leticia Pugh DO Generating Plant Superintendent: Signed 03-Aug-2014 Bilat Scrn Digital AND CAD Result: Comments: See Note; NOTES: [facility] Imaging Services [address] [place] [address] Breast Imaging Report MR#: [id number] Acct: [id number] Name: RADHA RAMOS Rep #: [id number] : 1955 F 58 From: Ross Saxena MD PCP: Leticia Pugh DO Status: REG CLI Study: Bilhaley Vincent Digital AND CAD Date of Exam: 08/03/14 Exam# [id number] Ordering Dr: Lelo Angeles MD MAMMOGRAPHY - [...] [facility]. Approximately 10% of breast cancers are not detected by mammography. A normal mammogram should not delay biopsy of a clinically suspicious abnormality. Electronically Kristin d: Ross Saxena MD at 13:16 EDT Tel [phone], Service support [phone], CC: Zhane Angeles MD; Leticia Pugh DO Generating Plant Superintendent: Signed 05-Jul-2014 PT Discharge Summary Result: Comments: See Note; NOTES: [facility] Physical Therapy [facility] [place] [address] Fax REHABILITATION SERVICES DISCHARGE SUMMARY MR#: [id number] Acct: [id number] Name: RADHA RAMOS Rep #: [id number] : 1955 58 From: Morgan Barnes Referring [...] Sincerely, Morgan Barnes, PT T: NTS JOB: [id number] <Electronically signed by Morgan Barnes > 07/05/14 1429 CC: Signed 18-May-2014 Brain W/WO Contrast Result: Comments: See Note; NOTES: [facility] Imaging Services [address] [place] [address] MRI Report MR#: [id number] Acct: [id number] Name: RADHA RAMOS Rep #: [id number] D OB: 1955 F 58 From: Yolanda Vitale MD PCP: Leticia Pugh DO Status: REG CLI Study: Brain W/WO Contrast Date of Exam: 05/18/14 Exam# [id number] Ordering Dr: Leticia Pugh DO STUDY: MRI [...] MD at 17:10 EDT , Service support [phone], CC: Leticia Pugh DO Generating Plant Superintendent: Signed 18-May-2014 Spine Cervical (Routine) Result: Comments: See Note; NOTES: [facility] Imaging Services [address] [place] [address] MRI Report MR#: [id number] Acct: [id number] Name: RADHA RAMOS Rep #: [id number] D OB: 1955 F 58 From: Yolanda Vitale MD PCP: Leticia Pugh DO Status: REG CLI Study: Spine Cervical (Routine) Date of Exam: 05/18/14 Exam# [id number] Ordering Dr: Leticia Pugh DO STUDY: MRI [...] at 22 :30 EDT , Service support [phone], CC: Leticia Pugh DO Generating Plant Superintendent: Signed 20-Apr-2014 Inital Evaluation - PT Result: Comments: See Note; NOTES: [facility] Physical Therapy [address] [place] [id number] Fax REHABILITATION SERVICES INITIAL EVALUATION MR#: [id number] Acct: [id number] Name: RADHA RAMOS Rep #: [id number] : 1955 58 From: Morgan Barnes Referring : Leticia Pugh DO Status: REG R Insurance: A [employer] Date: DATE OF SERVICE: 04/17/2014 REFERRING [...] therapy. Most recently, she had been trying intensive care unit registered nurse, which consist ed of manipulations with some [...] pain. SOCIAL HISTORY: . VOCATION: Works at [employer]. Goals to get rid of pain. OBJECTIVE: [...] for deltoid, biceps, triceps, wrist flexor, extensors. Life Skills Instructor strength 40 pressure using dynamometer porter head jamie. Negative ANR. MOVEMENT LOSS: Protrusion minimal loss with pain end range; flexion min-to- moderate loss; retraction, extension minimal loss; side bending to the right minimal loss; side bend to left is qfy-zw-ysjwewsr loss; rotation to the right minimal loss; rotation to the left is try-fe-zrkkkubk loss. Repeated motion, right neck pain. Protrusion, [...] pack, patient education. Morgan Barnes, PT T: ADIS JOB: [id number] <Electronically signed by Morgan Barnes > 04/20/14 0856 CC: Signed For Medicare only, by signing this I certify the plan of care. Physicians Signature Date 11-Apr-2014 Cerv Spine 4 or 5 Views Result: Comments: See Note; NOTES: [facility] Imaging Services [address] [place] [address] Radiology Report MR#: [id number] Acct: [id number] Name: RADHA RAMOS Rep #: [id number] : 1955 F 58 From: Sofia Gamble MD PCP: Leticia Pugh DO Status: REG CLI Study: Cerv Spine 4 or 5 Views Date of Exam: 04/11/14 Exam# [id number] Ordering Dr: Leticia Pugh: X-RAY - CERVICAL [...] MD at 16:35 EST , Service support [phone], RAD/Cerv Spine 4 or 5 Vie ws IMPRESSION: Normal x-ray examination of the visualized cervical spine. Electronically Signed: Sofia Gamble MD at 16:35 EST , Service support [phone], CC: Leticia Pugh DO Generating Plant Superintendent: Signed 30-Mar-2014 Esophagus Only Result: Comments: See Note; NOTES: [facility] Imaging Services [address] [place] [address] Radiology Report MR#: [id number] Acct: [id number] Name: RADHA RAMOS Rep #: [id number] : 1955 F 58 From: Ross Saxena MD PCP: Leticia Pugh DO Status: REG CLI Study: Esophagus Only Date of Exam: 03/30/14 Exam# [id number] Ordering Dr: James Garrido MD STUDY: X-RAY [...] Ross Saxena MD at 9:25 EST Tel [phone], Service support [phone], Fax CC: Leticia Pugh DO; James Hema Generating Plant Superintendent: Signed 08-Feb-2014 Stress Test Echo w/o Contrast Result: Comments: See Note; NOTES: [facility] Cardiovascular Services [address] [place] [address] STRESS TEST REPORT 02/02/14 1143 MR#: [id number] Acct: [id number] Name: RADHA RAMOS Rep #: [id number] : 1955 58 From: Guevara Casanova MD [...] 0902 Date Guevara Casanova MD CC: Leticia Pugh DO Date Dictate d: 02/02/14 1143 Date Transcribed: 02/05/14 09 Generating Plant Superintendent: Signed 08-Feb-2014 Echocardiogram Complete Result: Comments: See Note; NOTES: [facility] Cardiovascular Services [address] [place] [address] STRESS TEST REPORT 02/02/14 1143 MR#: [id number] Acct: [id number] Name: RADHA RAMOS Rep #: [id number] : 1955 58 From: Guevara Casanova MD [...] DO Date Dictated: 02/02/14 1143 Date Transcribed: 02/05/1436 Generating Plant Superintendent: Signed 06-Feb-2014 Upper GI Series Only Result: Comments: See Note; NOTES: [facility] Imaging Services [address] [place] [address] Radiology Report MR#: [id number] Acct: [id number] Name: RADHA RAMOS Rep #: [id number] : 1955 F 58 From: Segun Loomis MD PCP: Leticia Pugh DO Status: REG CLI Study: Upper GI Series Only Date of Exam: 02/06/14 Exam# [id number] Ordering Dr: Tanvi Hawthorne CLINICAL HISTOR Y: [...] MD at 10:55 EST , Service support [phone], RAD/Upper GI Series Only IMPRESSION: Patient shows [...] 2013 at 10:55 EST , Service support [phone], CC: Tanvi Hawthorne; Leticia Pugh DO Generating Plant Superintendent: Signed 05-Feb-2014 Stress Test Echo w/o Contrast Result: Comments: See Note; NOTES: [facility] Cardiovascular Services [address] [place] [address] STRESS TEST REPORT 02/02/14 1143 MR#: [id number] Acct: [id number] Name: RADHA RAMOS Rep #: [id number] : 1955 58 From: Guevara Casanova MD [...] Dictated: 02/02/14 1143 Date Transcribed: 02/05/14 0836 Generating Plant Superintendent: Signed 02-Feb-2014 Chest PA and Lateral Result: Comments: See Note; NOTES: [facility] Imaging Services [address] [place] [address] Radiology Report MR#: [id number] Acct: [id number] Name: RADHA RAMOS Rep #: [id number] : 1955 F 58 From: Martell Price MD PCP: Leticia Pugh DO Status: REG CLI Study: Chest PA and Lateral Date of Exam: 02/02/14 Exam# [id number] Ordering Dr: Tanvi Hawthorne STUDY: X-RAY CHEST [...] at 14:11 EST Tel , Service support [phone], RAD/Chest PA and Lateral IMPRESSION: Normal x-ray examination of the chest. Electronically Signed: Martell Price MD 20/01/28 at 14:11 EST , Service support [phone], CC: Tanvi Hawthorne; Leticia Pugh DO Generating Plant Superintendent: Signed 29-Jan-2014 ELECTROCARDIOGRAM, COMPLETE (ECG) (96505) Comments: sinus rhythm, similar to 11-19 Result: [MEASUREMENTS ANALYSIS] Date of Test: 01/29/2014 13:47:19; Heart Rate: 86; IN Interval: 136; QRS: 100; QT Interval: 368; Corrected QT Interval (QTc): 413; P Wave [place]: 66; QRS Wave [place]: 41; T Wave [place] : -1; Blood Pressure: 132/74 [ECG DIAGNOSTIC STATEMENTS] Date of Test: 01/29/2014 13:47:19; Summary: Sinus Rhythm WITHIN NORMAL LIMITS 02-Aug-2013 Bilat Scrn Digital & CAD Result: Comments: See Note; NOTES: [facility] Imaging Services [address] [place], [place] [address] [address] Breast Imaging Report MR#: [id number] Acct: [id number] Name: RADHA RAMOS Rep #: [id number] : 1955 F 57 From: Ross Saxena MD PCP: Leticia Pugh DO Status: REG CLI Exam# [id number] Ordering Dr: Zhane Angeles MD MAMMOGRAPHY - [...] [facility]. Approximately 10% of breast cancers are not detected by mammography. A normal mammogram should not delay biopsy of a clinically suspicious abnormality. Electronically Signed: Thompson Saxena MD at 10:52 EDT Tel [phone], Service support [phone], CC: Zhane Angeles MD; Leticia Pugh DO Generating Plant Superintendent: Signed Immunization Name Dates Details Influenza (3 [...] kg/m2 Body Surface Area Calculated 1.94 m2 37-Ubb-333786:00 Temperature 98.2 f Comments: Method: Oral Pulse [...] Height 0 in Head Circumference 0.00 cm 39-Vow-407552:23 Pulse 64 /min Comments: Pattern: Regular Respiration [...] 0.00 cm Results Date Description Value Details 63-Gpm-130631:10 VITAMIN B-12 (CYANOCOBALAMIN) Comments: PATIENT NOT FASTINGPERFORMED BY: [facility] Nilfuc9041 [facility] [id number] ([id number]) Vitamin B12 723 pg/mL (Normal) Range: 232-1245 2-Oct-30162:54 BNP,B-Type NATRIURETIC PEPTIDE Comments: [facility] [address] [place], [id number] B-TYPE CAMILO PEP 38.2 pg/mL (Normal) Range: 0-100 :54 Troponin-I Comments: 'TROP' Serial specimen #1, #2, #3, or #4: [facility] [address] [place], [id number] TROPONIN-I < 0.015 ng/mL (Normal) Comments: TROPONIN-I EXPECTED VALUES <0.045 Negative 0.045 - 0.590 Consistent with Cardiac Damage > OR = 0.600 Critical Value Not every elevated troponin is indicative of MN. T hesevalues should be used with clinical judgement in examiningthe patient's clinical picture for diagnosis. To establisha diagnosis of MN versus myocardial injury, there must be ademonstrated rise and/ or fall in the troponin values, inaddition to ischemic symptoms, EKG changes, new regionalwall motion abnormality, and/or angiographical evidence. PLEASE NOTE: REFERENCE RANGES EDITED 17:58 Lipid Profile Comments: Order Date: 10/16/16Order Info: [id number] - *Hepatic Function PanelOrder Info: [id number] - *Lipid Profile CC PCPComments: 12 hours fasting, may have water.[facility] [address] [place], [place], [id number] VLDL 35 mg/dL (Normal) Range: 5-40 LDL [...] 200-240 mg/dL Borderline >240 mg/dL High Risk 14-Jun-20179:58 Liver Profile Comments: Order Date: 10/16/16Order Info: [id number] - *Hepatic Function PanelOrder Info: [id number] - *Lipid Profile CC PCPComments: 12 hours fasting, may have water.[facility] [address] [place], [id number] D BILI 0.07 mg/dL (Normal) Range: 0.00-0.30 T BILI 0.70 mg/dL (Normal) Range: 0.20-1.00 ALT 47 U/L (Normal) Range: 13-56 Comments: Please note revised ALT reference range rjrwzfexj41/28/2018. ALK P 103 U/L (Normal) Range: 45-117 AST 30 U/L (Normal) Range: 15-37 GLOB 3.6 g/dL (Normal) Range: 2.2-4.2 ALB 4.0 g/dL (Normal) Range: 3.2-5.0 T PROT 7.6 g/dL (Normal) Range: 6.4-8.2 50-Llv-078912:09 Free T3 Comments: [facility] [address] [place], [id number] FREE T3 3.2 pg/mL (Normal) Range: 2.18-3.98 96-Urw-589380:09 T4 Free Direct Comments: [facility] [address] [place], [address] T4 FREE DIRECT 0.84 ng/dL (Normal) Range: 0.76-1.46 24-Gez-302405:09 Thyroid Stim Hormone (TSH) Comments: [facility] [address] [place], [address] TSH 1.27 {uIU/mL} (Normal) Range: 0.358-3.74 57-Vhz-724601:04 VITAMIN B-12 (CYANOCOBALAMIN) Comments: PATIENT WAS FASTINGPERFORMED BY: [facility] Tsgmec5015 [facility] [id number] ([id number]) Vitamin B12 1049 pg/mL (Normal) Range: 232-1245 25-Fub-975783:04 CALCIFEDIOL (50766) Comments: PATIENT WAS FASTINGPERFORMED BY: [employer] Pixtul6019 [facility] [id number] Vitamin D, 25-Hydroxy 17.4 ng/mL (Abnormal) Range: 30.0-100.0 Comments: Vitamin D deficiency has been defined by the [place] of[place]icine and an Endocrine Society practice guideline as alevel of serum 25-OH vitamin D less than 20 ng/mL (1,2).The Endocrine Society went on to further define vitamin Dinsufficiency as a level between 21 and 29 ng/mL (2).1. IOM ([place] of Medicine). 2010. Dietary reference intakes for calcium and D. [place]: The National Academies Press.2. Catie MF, Karon ACEVEDO, Myron KESSLER, et al. Evaluation, treatment, and prevention of vitamin D deficiency: an Endocrine Society clinical practice guideline. JCEM. 2010; 96(7):1911-30. 90-Etz-522449:08 URINE SHANI CULTURE-IDENTIFICATN Comments: PATIENT NOT FASTINGPERFORMED BY: [employer] Emmixd6287 [facility] [id number] (76845) Antimicrobial MIHEAD (Normal) Comments: S = Susceptible; [...] mL (Abnormal) Urine Final report Culture,Comprehensive (Abnormal) 19-Xvt-177287:08 URINALYSIS (79075) Comments: PATIENT NOT FASTINGPERFORMED BY: [facility] Nvvyyo1278 [facility] [id number] Information: SRC:UC Microscopic Examination MICNIP (Normal) Comments: Microscopic not indicated and not performed. Nitrite, Urine Negative (Normal) Urobilinogen,Semi-Qn 0.2 mg/dL (Normal) Range: 0.2-1.0 Bilirubin Negative (Normal) Occult Blood Negative (Normal) Ketones Negative (Normal) Glucose Negative (Normal) Protein Negative (Normal) WBC Esterase Negative (Normal) Appearance Clear (Normal) Urine-Color Yellow (Normal) pH 5.0 (Normal) Range: 5.0-7.5 Specific [place] 1.021 (Normal) Range: 1.005-1.030 :11 Basic Metabolic Profile (BMP) Comments: 'TROP' Serial specimen #1, #2, #3, or #4: 1[facility] [address] [place], [address] GAP 9 (Normal) Range: 5-15 [...] A.D.A. criteria. :11 CBC W/Diff, Automated Comments: [facility] [address] [place], [address] Absolute Lymph 3.23 {X10_3/ul} (Normal) [...] Serial specimen #1, #2, #3, or #4: [facility] [address] [place], [address] TROPONIN-I < 0.02 ng/mL (Normal) Comments: TROPONIN-I EXPECTED VALUES <0.05 NEGATIVE 0.06 - 0.59 AT RISK OF MN > OR = 0.60 SUGGEST MN 13-Nov-20160:00 ASP RADIOLOGY (FLUID) See Note (Normal) Comments: [facility] [address] [place], [address] Comments: Patient: RADHA RAMOS : 1955 (61/F) Acct Num: [id number] Phys: Jacinto VIDALES,James Unit Num: [id number] Loc: Specimen: [id number] Received: 11/13/16 - 1243 Spec [...] cytology study. / SVETLANA:brayden 11/13/16 TC:5 CPT: 42966, 12341, 881 72 CYTOLOGY STUDY Slides are reviewed. [...] Order Date: 09/21/16Order Info: [id number] - *[facility] [address] [place], [id number] HGB A1C 6.3 % (Normal) Range: 4.2-6.3 :57 Lipid Profile Comments: Order Date: 10/28/15Interface Comments: 12 hours fasting, may have water.[facility] [address] [place], [id number] VLDL 28 mg/dL (Normal) Range: 5-40 LDL [...] 200-240 mg/dL Borderline >240 mg/dL High Risk 00-Pxa-78355:57 Liver Profile Comments: Order Date: 10/28/15Interface Comments: 12 hours fasting, may have water.[facility] [address] [place], [place], [id number] D BILI 0.11 mg/dL (Normal) Range: 0.00-0.30 T BILI 0.60 mg/dL (Normal) Range: 0.20-1.00 ALT 34 U/L (Normal) Range: 12-78 ALK P 95 U/L (Normal) Range: 45-117 AST 21 U/L (Normal) Range: 15-37 GLOB 3.2 g/dL (Normal) Range: 2.3-3.5 ALB 4.1 g/dL (Normal) Range: 3.4-5.0 T PROT 7.3 g/dL (Normal) Range: 6.4-8.2 75-Sxb-658091:14 CBC W/Diff, Automated Comments: Order Date: 09/21/16Order Info: [id number] - *CBC with DifferentialComments: Reason:[facility] [address] [place], [id number] Absolute Lymph 2.69 {X10_3/ul} (Normal) Range: 0.83-4.51 [...] 4.2-5.4 WBC 7.3 K/mm3 (Normal) Range: 4.4-11.0 :14 Thyroid Stim Hormone (TSH) Comments: Order Date: 09/21/16Order Info: [id number] - *TSHComments: Reason:[facility] [address] [place], [place], [id number] TSH 1.64 {uIU/mL} (Normal) Range: 0.358-3.74 :55 HgA1C , Office (76329) HgA1C , Office 5.8 % (Normal) Range: 4.6 - 7.1 :55 Blood Glucose , Office (77352) Blood Glucose , Office 110 (Normal) 84-Hau-076247:19 THROAT CULTURE (46889) Comments: PATIENT NOT FASTINGPERFORMED BY: LabCoSt. Joseph's Regional Medical CenterKoluwi7678 [facility] [id number] Information: SRC:TH Result 1 RRF (Normal) Comments: Routine respiratory jaylyn Upper Respiratory Culture Final report (Normal) 34-Xyd-587839:42 LIPID PANEL (67902) Comments: PATIENT WAS FASTINGPERFORMED BY: OutboundEngineSt. Joseph's Regional Medical CenterGexcsj4650 [facility] [id number] LDL/HDL Ratio 3.4 {ratio_units} (Abnormal) Range: 0.0-3.2 Comments: LDL/HDL Ratio Men Women 1/2 Avg.Risk 1.0 1.5 Av g.Risk 3.6 3.2 2X Avg.Risk 6.2 5.0 3X Avg.Risk 8.0 6.1 LDL Cholesterol Calc 122 mg/dL (Abnormal) Range: 0-99 VLDL Cholesterol Leonel 34 mg/dL (Normal) Range: 5-40 HDL Cholesterol 36 mg/dL (Abnormal) Triglycerides 172 mg/dL (Abnormal) Range: 0-149 Cholesterol, Total 192 mg/dL (Normal) Range: 100-199 66-Yst-580898:42 CALCIFIDIOL (92876) VIT D 25 Comments: PATIENT WAS FASTINGPERFORMED BY: SteelHouselin6370 [facility] [id number]; will rview on 07/03 Vitamin D, 25-Hydroxy 23.3 ng/mL (Abnormal) Range: 30.0-100.0 Comments: Vitamin D deficiency has been defined by the [place] of[place]icine and an Endocrine Society practice guideline as alevel of serum 25-OH vitamin D less than 20 ng/mL (1,2).The Endocrine Society went on to further define vitamin Dinsufficiency as a level between 21 and 29 ng/mL (2).1. IOM ([place] of Medicine). 2010. Dietary reference intakes for calcium and D. [place]: The National Academies Press.2. Catie MF, Karon [place], Myron KESSLER, et al. Evaluation, treatment, and prevention of vitamin D deficiency: an Endocrine Society clinical practice guideline. JCEM. 2010; 96(7):1911-30. :09 HgA1C , Office (33958) HgA1C , Office 6.0 % (Normal) Range: 4.6 - 7.1 42-Vwx-953371:09 Blood Glucose , Office (90611) Blood Glucose , Office 113 (Normal) 56-Quj-578047:21 Microscopic Examination Comments: PATIENT WAS FASTINGPERFORMED BY: DAVID [employer] Zqevbq3505 [facility] [id number] Bacteria Few (Normal) Mucus Threads Present (Normal) Epithelial Cells (non renal) 0-10 {/hpf} (Normal) Range: 0 - 10 RBC 0-2 {/hpf} (Normal) Range: 0 - 2 WBC 0-5 {/hpf} (Normal) Range: 0 - 5 08-Dsx-794311:53 PPD (95151) Comments: lot: [id number]: 07/22site/route: L forearm/intradermalamt: 0.1mLVIS signed when applicableChelsea, CUSHION COVER INSPECTOR SKIN TEST INTRADERMAL TB negative (Normal) :33 LDH (LD) (LACTATE DEHYDROGENASE) Comments: PATIENT NOT FASTINGPERFORMED BY: ElsaLys BiotechCameron Regional Medical CenterRoprti6654 [facility] [id number] (41974) LDH 174 [iU]/L (Normal) Range: 119-226 :33 SED RATE ERYTHROCYTE (59434) Comments: PATIENT NOT FASTINGPERFORMED BY: ElsaLys BiotechCameron Regional Medical CenterKemcir3239 [facility] [id number] Sedimentation Rate-Westergren 2 mm/h (Normal) Range: 0-40 :33 C-REACTIVE PROTEIN (51184) Comments: PATIENT NOT FASTINGPERFORMED BY: ElsaLys BiotechOaklawn Hospital6370 [facility] [id number] C-Reactive Protein, Quant 1.8 mg/L (Normal) Range: 0.0-4.9 :33 TSH (93797) Comments: PATIENT NOT FASTINGPERFORMED BY: ElsaLys BiotechOaklawn Hospital6370 [facility] [id number] TSH 2.710 {uIU/mL} (Normal) Range: 0.450-4.500 :33 METABOLIC PANEL, COMPREHENSIVE Comments: PATIENT NOT FASTINGPERFORMED BY: ElsaLys BiotechOaklawn Hospital6370 [facility] [id number] (25204) ALT (SGPT) 25 [iU]/L (Normal) Range: 0-32 [...] Glucose, Serum 83 mg/dL (Normal) Range: 65-99 52-Gol-784877:33 CBC W/AUTO DIFF WBC (13077) Comments: PATIENT NOT FASTINGPERFORMED BY: [facility] Hdhmik8615 [facility] [id number] Immature Grans (Abs) 0.0 {x10E3/uL} (Normal) Range: [...] Range: 3.4-10.8 :00 Culture, Deep Wound Comments: [address] [place], [address] CUDW See Note (Normal) Comments: Comments: ABDOMINAL ABCESSGram StainGram Stain No White Blood Cells No organisms seen Wound CulturePossible skin contamination, further Identification and sensitivity will be performed only by physi taye's request. ORGANISM 1: Coag Negative StaphAmount Growth Very Rare Cult, AnaerobicNo anaerobic bacteria isolated. 17-Njx-640128:51 Albumin, Serum Comments: [address] [place], [place], [address] ALB 4.3 g/dL (Normal) Range: 3.4-5.0 23-Npc-731249:51 Basic Metabolic Profile (BMP) Comments: [address] [place], [place], [address] GAP 6 (Normal) Range: 5-15 CO2 26.0 [...] <126 mg/dLsuggests IMPAIRED HOMEOSTASIS per A.D.A. criteria. 18-Meq-473488:51 CBC-Complete Blood Cnt No Diff Comments: [facility] [address] [place], [place], [address] MPV 9.4 fL (Normal) Range: 6.2-12.0 PLT [...] (Normal) Range: 4.4-11.0 :51 Hemoglobin A1c Comments: [facility] [address] [place], [place], [address] HGB A1C 6.1 % (Normal) Range: 4.2-6.3 84-Qih-243640:51 Prealbumin Comments: [facility] [address] [place], [address] PREALBUMIN 32.4 mg/dL (Normal) Range: 20.0-40.0 66-Uir-32077:06 Urinalysis, Office (78143) UA - LEUKOCYTE ESTERASE Negative (Normal) UA - NITRITE Negative (Normal) URINE UROBILINGN MICHAEL TIMED Normal mg/dL (Normal) UA - PROTEIN Negative mg/dL (Normal) UA - PH 6.0 (Normal) Comments: 5.5 UA - BLOOD Non Hemolyzed Trace (Normal) UA - SPECIFIC GRAVITY 1.030 (Abnormal) UA - KETONES Negative mg/dL (Normal) UA - BILIRUBIN Negative (Normal) UA - GLUCOSE Negative (Normal) 8-Loo-222025:23 SED RATE ERYTHROCYTE Comments: PATIENT WAS FASTINGPERFORMED BY: [facility] Ogiujk8758 [facility] [id number] Information: [id number] (79825) Sedimentation Rate-Westergren 2 mm/h (Normal) Range: 0-40 9-Hat-081146:27 Aerobic Bacterial Culture Comments: PATIENT WAS FASTINGPERFORMED BY: [employer] [facility] Qtbakq3695 [facility] [id number] Information: [id number] SRC: (11107) Result 1 Mixed skin jaylyn (Normal) Aerobic Bacterial Culture Final report (Normal) 4-Kmk-224913:21 Serum Creatinine AND GFR Comments: [facility] [address] [place], [address] EST GFR - AA 73 mL/min (Normal) Comments: GFR Calc EST GFR 60 mL/min (Normal) Comments: Non- GFR Calc CREAT,SERUM 1.00 mg/dL (Normal) Range: 0.55-1.20 Comments: The validity of the calculated GFR AND GFRAA in patients over70 years has not been determined. Clinical correlation isessential. 79-Ntt-273574:21 VITAMIN B-12 (CYANOCOBALAMIN) Comments: PATIENT WAS FASTINGPERFORMED BY: OutboundEngineZia Health ClinicNvftlv7296 [facility] [id number] (57412) Vitamin B12 738 pg/mL (Normal) Range: 211-946 TSH (75882) Comments: PATIENT WAS FASTINGPERFORMED BY: ElsaLys BiotechCameron Regional Medical CenterWyyxzv5798 [facility] [id number] TSH 2.440 {uIU/mL} (Normal) Range: 0.450-4.500 : URINALYSIS, W/ MICRO (61443) Comments: PATIENT WAS FASTINGPERFORMED BY: [employer] Gpqppt1563 [facility] [id number] Microscopic Examination See below: (Normal) Comments: Microscopic was indicated and was performed. Microscopic Examination MICRON (Normal) Comments: Microscopic follows if indicated. Nitrite, Urine Negative (Normal) Urobilinogen,Semi-Qn 0.2 mg/dL (Normal) Range: 0.2-1.0 Bilirubin Negative (Normal) Occult Blood Negative (Normal) Ketones Negative (Normal) Glucose Negative (Normal) Protein Negative (Normal) WBC Esterase Negative (Normal) Appearance Clear (Normal) Urine-Color Yellow (Normal) pH 5.5 (Normal) Range: 5.0-7.5 Specific [place] 1.027 (Normal) Range: 1.005-1.030 : MICROALBUMIN: CREATININE RATIO Comments: PATIENT WAS FASTINGPERFORMED BY: OutboundEngineZia Health ClinicWifecl5570 [facility] [id number] (28949) AND (03314) Microalb/Creat Ratio 2.9 {mg/g_creat} (Normal) Range: 0.0-30.0 Microalbumin, Urine 4.1 ug/mL (Normal) Creatinine, Urine 143.7 mg/dL (Normal) : METABOLIC PANEL, COMPREHENSIVE Comments: PATIENT WAS FASTINGPERFORMED BY: OutboundEngineZia Health ClinicKtzlht7881 [facility] [id number] (03913) ALT (SGPT) 28 [iU]/L (Normal) Range: 0-32 [...] Glucose, Serum 134 mg/dL (Abnormal) Range: 65-99 67-Ulz-821128:21 CBC W/AUTO DIFF WBC (41222) Comments: PATIENT WAS FASTINGPERFORMED BY: LabCoSt. Joseph's Regional Medical CenterDfgubq8552 [facility] [id number] Immature Grans (Abs) 0.0 {x10E3/uL} (Normal) Range: [...] 3.77-5.28 WBC 5.2 {x10E3/uL} (Normal) Range: 3.4-10.8 90-Qht-388153:21 LIPID PANEL (85055) Comments: PATIENT WAS FASTINGPERFORMED BY: Dreamweaver InternationalUNC [facility] [id number] LDL/HDL Ratio 3.0 {ratio_units} (Normal) Range: 0.0-3.2 Comments: LDL/HDL Ratio Men Women 1/2 Avg.Risk 1.0 1.5 Av g.Risk 3.6 3.2 2X Avg.Risk 6.2 5.0 3X Avg.Risk 8.0 6.1 LDL Cholesterol Calc 121 mg/dL (Abnormal) Range: 0-99 VLDL Cholesterol Leonel 27 mg/dL (Normal) Range: 5-40 HDL Cholesterol 41 mg/dL (Normal) Triglycerides 137 mg/dL (Normal) Range: 0-149 Cholesterol, Total 189 mg/dL (Normal) Range: 100-199 65-Mty-661125:21 CALCIFIDIOL (78406) VIT D 25 Comments: PATIENT WAS FASTINGPERFORMED BY: Vertishear70 TapInkoUNC Health [facility] [id number] Vitamin D, 25-Hydroxy 19.5 ng/mL (Abnormal) Range: 30.0-100.0 Comments: Vitamin D deficiency has been defined by the [place] of[place]icine and an Endocrine Society practice guideline as alevel of serum 25-OH vitamin D less than 20 ng/mL (1,2).The Endocrine Society went on to further define vitamin Dinsufficiency as a level between 21 and 29 ng/mL (2).1. IOM ([place] of Medicine). 2010. Dietary reference intakes for calcium and D. [place]: The National Academies Press.2. Catie MF, Karon ACEVEDO, Myron KESSLER, et al. Evaluation, treatment, and prevention of vitamin D deficiency: an Endocrine Society clinical practice guideline. JCEM. 2010; 96(7):1911-30. :19 HgA1C , Office (57626) HgA1C , Office 5.8 % (Normal) Range: 4.6 - 7.1 :19 Blood Glucose , Office (19707) Blood Glucose , Office 79 (Normal) 85-Maw-055232:15 Lipid Profile Comments: Order Date: 10/21/15Interface Comments: 12 hours fasting, may have water.Order Date: 10/21/15[facility] [address] [place], [address] VLDL 28 mg/dL (Normal) Range: 5-40 LDL [...] 200-240 mg/dL Borderline >240 mg/dL High Risk :15 Liver Profile Comments: Order Date: 10/21/15Interface Comments: 12 hours fasting, may have water.Order Date: 10/21/15[facility] [address] [place], [id number] D BILI 0.13 mg/dL (Normal) Range: 0.00-0.30 T BILI 0.80 mg/dL (Normal) Range: 0.20-1.00 ALT 39 U/L (Normal) Range: 12-78 ALK P 90 U/L (Normal) Range: 50-136 AST 23 U/L (Normal) Range: 15-37 GLOB 3.1 g/dL (Normal) Range: 2.3-3.5 ALB 4.3 g/dL (Normal) Range: 3.4-5.0 T PROT 7.4 g/dL (Normal) Range: 6.4-8.2 :48 HgA1C , Office (24303) HgA1C , Office 5.9 % (Normal) Range: 4.6 - 7.1 :48 Blood Glucose , Office (58600) Blood Glucose , Office 81 (Normal) :50 Microscopic Examination Comments: PATIENT WAS FASTINGPERFORMED BY: [employer] [place] [id number] Bacteria Few (Normal) Mucus Threads Present (Normal) Epithelial Cells (non renal) 0-10 {/hpf} (Normal) Range: 0 - 10 RBC 0-2 {/hpf} (Normal) Range: 0 - 2 WBC 0-5 {/hpf} (Normal) Range: 0 - 5 :17 VITAMIN B-12 (CYANOCOBALAMIN) Comments: PATIENT NOT FASTINGPERFORMED BY: Vertishear70 [employer] [place] [id number] (49495) Vitamin B12 928 pg/mL (Normal) Range: 211-946 :17 CALCIFIDIOL (64924) VIT D Comments: PATIENT NOT FASTINGPERFORMED BY: Dreamweaver InternationalUNC Health [facility] [id number] Information: [id number] 25 Vitamin D, 25-Hydroxy 20.0 ng/mL (Abnormal) Range: 30.0-100.0 Comments: Vitamin D deficiency has been defined by the [place] of[place]icine and an Endocrine Society practice guideline as alevel of serum 25-OH vitamin D less than 20 ng/mL (1,2).The Endocrine Society went on to further define vitamin Dinsufficiency as a level between 21 and 29 ng/mL (2).1. IOM ([place] of Medicine). 2010. Dietary reference intakes for calcium and D. [place]: The National Academies Press.2. Catie MF, Karon ACEVEDO, Myron KESSLER, et al. Evaluation, treatment, and prevention of vitamin D deficiency: an Endocrine Society clinical practice guideline. JCEM. 2010; 96(7):1911-30. :50 URINALYSIS, W/ MICRO (80688) Comments: PATIENT WAS FASTINGPERFORMED BY: [employer] [place] [id number] Microscopic Examination See below: (Normal) Comments: Microscopic was indicated and was performed. Microscopic Examination MICRON (Normal) Comments: Microscopic follows if indicated. Nitrite, Urine Negative (Normal) Urobilinogen,Semi-Qn 0.2 mg/dL (Normal) Range: 0.2-1.0 Bilirubin Negative (Normal) Occult Blood Negative (Normal) Ketones Negative (Normal) Glucose Negative (Normal) Protein Negative (Normal) WBC Esterase Negative (Normal) Appearance Clear (Normal) Urine-Color Yellow (Normal) pH 6.0 (Normal) Range: 5.0-7.5 Specific [place] 1.021 (Normal) Range: 1.005-1.030 :50 MICROALBUMIN: CREATININE RATIO Comments: PATIENT WAS FASTINGPERFORMED BY: Vertishear70 TapInkoUNC Health [facility] [id number] (80815) AND (31189) Microalb/Creat Ratio 2.6 {mg/g_creat} (Normal) Range: 0.0-30.0 Microalbumin, Urine 4.4 ug/mL (Normal) Creatinine, Urine 170.1 mg/dL (Normal) :50 METABOLIC PANEL, COMPREHENSIVE Comments: PATIENT WAS FASTINGPERFORMED BY: Dreamweaver InternationalUNC [facility] [id number] (34579) ALT (SGPT) 28 [iU]/L (Normal) Range: 0-32 [...] Glucose, Serum 113 mg/dL (Abnormal) Range: 65-99 41-Ibk-86652:50 CBC W/AUTO DIFF WBC Comments: PATIENT WAS FASTINGPERFORMED BY: [facility] Zhcrhx5089 [facility] [id number] Information: [id number] DL (25785) Immature Grans (Abs) 0.0 {x10E3/uL} (Normal) Range: [...] B-12 (CYANOCOBALAMIN) Comments: PATIENT WAS FASTINGPERFORMED BY: [employer] Uhmkoi8802 [facility] [id number] (69798) Vitamin B12 589 pg/mL (Normal) Range: 211-946 :50 LIPID PANEL (28716) Comments: PATIENT WAS FASTINGPERFORMED BY: Promoboxx LabCoSt. Joseph[facility] Regional [facility] CenterQiwbcn1281 [facility] [id number] LDL/HDL Ratio 3.2 {ratio_units} (Normal) Range: 0.0-3.2 [...] Cholesterol, Total 178 mg/dL (Normal) Range: 100-199 :50 CALCIFIDIOL (79651) VIT D 25 Comments: PATIENT WAS FASTINGPERFORMED BY: LabCoSt. Joseph's Regional Medical CenterLksrap3571 [facility] [id number] Vitamin D, 25-Hydroxy 23.6 ng/mL (Abnormal) Range: 30.0-100.0 Comments: Vitamin D deficiency has been defined by the [place] ofMedicine and an Endocrine Society practice guideline as alevel of serum 25-OH vitamin D less than 20 ng/mL (1,2).The Endocrine Society went on to further define vitamin Dinsufficiency as a level between 21 and 29 ng/mL (2).1. IOM ([place] of Medicine). 2010. Dietary reference intakes for calcium and D. [place]: The National Academies Press.2. Catie MF, Karon NC, Myron KESSLER, et al. Evaluation, treatment, and prevention of vitamin D deficiency: an Endocrine Society clinical practice guideline. JCEM. 2010; 96(7):1911-30. 09-Fwd-540900:39 HgA1C , Office (45798) HgA1C , Office 5.7 % (Normal) Range: 4.6 - 7.1 :39 Blood Glucose , Office (01751) Blood Glucose , Office 87 (Normal) :08 CK-MB Quantitative and Index Comments: 'TROP' Serial specimen #1, #2, #3, or #4: INT'CKMB' Serial Specimen #1, #2 or #3? 1[facility] [address] [place], [place], [address] CKRI 0.5 % (Normal) Range: 0.0-1.4 Comments: RELATIVE INDEX >1.5% IS PRESUMPTIVELY POSITIVE CPKMB 0.6 ng/mL (Normal) Range: 0.0-5.0 Comments: CK-MB and RI Interpretation MB Relative Index Non-AMI <or= 5 NA Indeterminate > 5 <or= 4 AMI > 5 > 4 CPK TOTAL 114 U/L (Normal) Range: 26-192 4-Azr-581419:08 Troponin I (47514) Comments: 'TROP' Serial specimen #1, #2, #3, or #4: INT'CKMB' Serial Specimen #1, #2 or #3? 1[facility] [address] [place], [place], [address] TROPONIN-I < 0.02 ng/mL (Normal) Comments: TROPONIN-I EXPECTED VALUES <0.05 NEGATIVE 0.06 - 0.59 AT RISK OF MN > OR = 0.60 SUGGEST [place] 7-Rdb-936178:44 LIPID PANEL (46472) Comments: PATIENT WAS FASTINGPERFORMED BY: [employer] [facility] [id number] Information: [id number] LDL/HDL Ratio 2.6 {ratio_units} (Normal) Range: 0.0-3.2 [...] Cholesterol, Total 172 mg/dL (Normal) Range: 100-199 6-Cxs-081486:56 HgA1C , Office (97303) HgA1C , Office 5.8 % (Normal) Range: 4.6 - 7.1 :56 Blood Glucose , Office (32894) Blood Glucose , Office 99 (Normal) 64-Qxp-945653:27 URINE SHANI CULTURE-MICHAEL COL Comments: PATIENT NOT FASTINGPERFORMED BY: LabCoSt. Joseph's Regional Medical CenterBwvuqn53[address] [place] [address] [id number] Information: [place] [id number] COUNT (10466) Antimicrobial MIHEAD (Normal) Comments: S = Susceptible; [...] . (Abnormal) Urine Final report Culture,Comprehensive (Abnormal) 12-Adl-602197:33 Urinalysis, Office (75189) UA - LEUKOCYTE ESTERASE Negative (Normal) UA - NITRITE Negative (Normal) URINE UROBILINGN MICHAEL TIMED Normal mg/dL (Normal) UA - PROTEIN Negative mg/dL (Normal) UA - PH 5 (Abnormal) UA - BLOOD Negative (Normal) UA - SPECIFIC GRAVITY 1.025 (Normal) UA - KETONES Negative mg/dL (Normal) UA - BILIRUBIN Negative (Normal) UA - GLUCOSE Negative (Normal) 67-Vpa-059857:00 Culture, Wound Comments: Test performed at:[facility] [address] [place] [address] CUW See Note (Normal) Comments: SPECIMEN RECEIVED [...] $ <=20 S(NF) indicates non-formulary drug at [facility]. Approval by In fectious Disease Specialist required before non-formulary drugs may be ordered and/or dispensed. 37-Dbt-506213:54 Bedside Glucose Comments: Test performed at:[facility] [address] [place] [address] ; ordered by Dr. Kebede BEDSIDE GLU 126 mg/dL (Abnormal) Range: 70-110 Comments: No Action RequiredMANAGEMENT OF PATIENT CARE PER NURSING PROTOCOL 11-Szj-906153:25 Urinalysis, Routine (Dipstick) Comments: How was Urine Obtained? MAILROOM ASSOCIATE TO SPECIFYTest performed at:[facility] [address] [place] [address] LEUK ESTERASE Negative /ul (Normal) OCCULT BLOOD-UR Negative /ul (Normal) NITRITE UR Negative (Normal) UROBILI Normal mg/dL (Normal) PROT DIPSTX Negative mg/dL (Normal) pH UR 5.0 (Normal) Range: 5.0 - 8.0 SP.GR. DIPSTX 1.020 (Normal) Range: 1.002-1.030 KETONE UR Negative mg/dL (Normal) BILIRUBIN URINE Negative mg/dL (Normal) GLUCOSE, UR Normal mg/dL (Normal) CLARITY Clear (Normal) COLOR Yellow (Normal) 23-Cra-288974:01 Bedside Glucose Comments: Test performed at:[facility] [address] [place] [address] BEDSIDE GLU 108 mg/dL (Normal) Range: 70-110 Comments: Policy and Physicians Orders followedMANAGEMENT OF PATIENT CARE PER NURSING PROTOCOL 10-Idx-13667:47 CBC W/Diff, Automated Comments: Test performed at:[facility] [address] [place] [address] Absolute Lymph 2.25 {X10_3/ul} (Normal) [...] 4.2-5.4 WBC 5.9 K/mm3 (Normal) Range: 4.4-11.0 :47 Comprehensive Metabolic Profil Comments: Test performed at:[facility] [address] [place] [address] GAP 11 (Normal) Range: 5-15 CO2 24.0 [...] 7-18 GLU 106 mg/dL (Normal) Range: 70-110 79-Ahw-902826:33 LIPID PANEL (21478) Comments: PATIENT WAS FASTINGPERFORMED BY: OutboundEngineSt. Joseph's Regional Medical CenterCebixc1529 [facility] [id number] LDL/HDL Ratio 3.4 {ratio_units} (Abnormal) Range: 0.0-3.2 [...] Cholesterol, Total 208 mg/dL (Abnormal) Range: 100-199 04-Qts-442481:33 TSH (79871) Comments: PATIENT WAS FASTINGPERFORMED BY: [facility] [place] [address] [id number] TSH 3.440 {uIU/mL} (Normal) Range: 0.450-4.500 17-Xal-717899:33 METABOLIC PANEL, Comments: PATIENT WAS FASTINGPERFORMED BY: [facility] [place] [address] [id number] Information: [id number] COMPREHENSIVE (87071) ALT (SGPT) 26 [iU]/L (Normal) Range: 0-32 [...] Glucose, Serum 108 mg/dL (Abnormal) Range: 65-99 10-Uon-811388:33 CBC (AUTO) (20760) Comments: PATIENT WAS FASTINGPERFORMED BY: LabCoSt. Joseph's Regional Medical CenterEkmctt7382 [facility] [id number] Platelets 216 {x10E3/uL} (Normal) Range: 150-379 RDW 13.9 % (Normal) Range: 12.3-15.4 MCHC 34.1 g/dL (Normal) Range: 31.5-35.7 MCH 28.9 pg (Normal) Range: 26.6-33.0 MCV 85 fL (Normal) Range: 79-97 Hematocrit 41.6 % (Normal) Range: 34.0-46.6 Hemoglobin 14.2 g/dL (Normal) Range: 11.1-15.9 RBC 4.92 {x10E6/uL} (Normal) Range: 3.77-5.28 WBC 5.6 {x10E3/uL} (Normal) Range: 3.4-10.8 :33 VITAMIN B-12 (CYANOCOBALAMIN) Comments: PATIENT WAS FASTINGPERFORMED BY: [employer] Jpwjey4811 [facility] [id number] (73104) Vitamin B12 638 pg/mL (Normal) Range: 211-946 :33 CALCIFIDIOL (78978) VIT D 25 Comments: PATIENT WAS FASTINGPERFORMED BY: LabGramovox Kpobsa6038 [facility] [id number]; [address]. [address]-14 Vitamin D, 25-Hydroxy 19.4 ng/mL (Abnormal) Range: 30.0-100.0 Comments: Vitamin D deficiency has been defined by the [place] ofParkview Health Bryan Hospitalcine and an Endocrine Society practice guideline as alevel of serum 25-OH vitamin D less than 20 ng/mL (1,2).The Endocrine Society went on to further define vitamin Dinsufficiency as a level between 21 and 29 ng/mL (2).1. IOM ([place] of Medicine). 2010. Dietary reference intakes for calcium and D. [place]: The National Academies Press.2. Catie MF, Karon NC, Myron KESSLER, et al. Evaluation, treatment, and prevention of vitamin D deficiency: an Endocrine Society clinical practice guideline. JCEM. 2010; 96(7):1911-30. :47 HgA1C , Office (42640) HgA1C , Office 5.9 % (Normal) Range: 4.6 - 7.1 :05 METABOLIC PANEL, Comments: PATIENT NOT FASTINGPERFORMED BY: ElsaLys BiotechRanken Jordan [facility] Ppujsi3861 [facility] [id number] Information: [id number] COMPREHENSIVE (67008) ALT (SGPT) 24 [iU]/L (Normal) Range: 0-32 [...] Glucose, Serum 139 mg/dL (Abnormal) Range: 65-99 58-Mqi-804392:05 CBC (AUTO) (45719) Comments: PATIENT NOT FASTINGPERFORMED BY: LabCoSt. Joseph's Regional Medical CenterHfgcpu8810 [facility] [id number] Platelets 251 {x10E3/uL} (Normal) Range: 150-379 RDW 13.3 % (Normal) Range: 12.3-15.4 MCHC 33.9 g/dL (Normal) Range: 31.5-35.7 MCH 28.3 pg (Normal) Range: 26.6-33.0 MCV 84 fL (Normal) Range: 79-97 Hematocrit 43.4 % (Normal) Range: 34.0-46.6 Hemoglobin 14.7 g/dL (Normal) Range: 11.1-15.9 RBC 5.19 {x10E6/uL} (Normal) Range: 3.77-5.28 WBC 5.8 {x10E3/uL} (Normal) Range: 3.4-10.8 :05 VITAMIN B-12 (CYANOCOBALAMIN) Comments: PATIENT NOT FASTINGPERFORMED BY: [facility]6370 [facility] [id number] (35923) Vitamin B12 365 pg/mL (Normal) Range: 211-946 :05 TSH (42760) Comments: PATIENT NOT FASTINGPERFORMED BY: [facility]6370 [facility] [id number] TSH 2.930 {uIU/mL} (Normal) Range: 0.450-4.500 :25 CKMB Comments: 'TROP' Serial specimen #1, #2, #3, or #4: INT'CKMB' Serial Specimen #1, #2 or #3? 1 CPKMB 1.1 ng/mL (Normal) Range: 0.0-5.0 Comments: CK-MB and RI Interpretation MB Relative IndexNon-AMI <or= 5 NAIndeterminate > 5 <or= 4AMI > 5 > 4 CPK 95 U/L (Normal) Range: 26-192 :25 CPK 93 U/L (Normal) Range: 26-192 :25 CRP < 2.90 mg/L (Normal) Comments: 'TROP' [...] <0.05 NEGATIVE0.06 - 0.59 AT RISK OF MN> OR = 0.60 SUGGEST MN :32 URINE SHANI CULTURE (MICHAEL Comments: PATIENT NOT FASTINGPERFORMED BY: LabOaklawn Hospital6370 [facility] [id number] Information: SRC:UR [id number] COL COUNT) (07979) Result 1 MUG (Normal) Comments: Mixed urogenital flora25,000-50,000 colony forming units per mL Urine Final report (Normal) Culture,Comprehensive :14 Urinalysis, Office (74575) UA - LEUKOCYTE ESTERASE Negative (Normal) UA - NITRITE Negative (Normal) URINE UROBILINGN MICHAEL TIMED Normal mg/dL (Normal) UA - PROTEIN Negative mg/dL (Normal) UA - PH 5.0 (Normal) Comments: 5.5 UA - BLOOD Negative (Normal) UA - SPECIFIC GRAVITY 1.030 (Abnormal) UA - KETONES Negative mg/dL (Normal) UA - BILIRUBIN Negative (Normal) UA - GLUCOSE Negative (Normal) :51 HgA1C , Office (23211) HgA1C , Office 6.1 % (Normal) Range: 4.6 - 7.1 :16 URINE SHANI CULTURE-MICHAEL COL Comments: PATIENT NOT FASTINGPERFORMED BY: OutboundEngineSt. Joseph's Regional Medical CenterIfzwxh0317 [facility] [id number] Information: SRC:UR [id number] COUNT (56148) Result 1 ECV (Abnormal) Comments: Escherichia coli, [...] S Urine Final report Culture,Comprehensi (Abnormal) ve 46-Cqy-630755:59 Urinalysis, Office (11694) UA - LEUKOCYTE ESTERASE Small (Normal) UA - NITRITE Negative (Normal) URINE UROBILINGN MICHAEL TIMED 2 mg/dL (Normal) UA - PROTEIN Negative mg/dL (Normal) UA - PH 6.5 (Normal) UA - BLOOD Hemolyzed Small (Normal) UA - SPECIFIC GRAVITY 1.025 (Normal) UA - KETONES Negative mg/dL (Normal) UA - BILIRUBIN Negative (Normal) UA - GLUCOSE Negative (Normal) :33 HgA1C , Office (13348) HgA1C , Office 6.1 % (Normal) Range: 4.6 - 7.1 :33 Blood Glucose , Office (21757) Blood Glucose , Office 144 (Normal) Comments: non-fasting :24 Microscopic Examination Comments: PATIENT WAS FASTINGPERFORMED BY: [employer] [facility] [id number] Bacteria Few (Normal) Mucus Threads Present (Normal) Epithelial Cells (non renal) >10 {/hpf} (Abnormal) Range: 0 - 10 RBC 0-2 {/hpf} (Normal) Range: 0 - 2 WBC 0-5 {/hpf} (Normal) Range: 0 - 5 :48 TSH (70139) Comments: PATIENT WAS FASTINGPERFORMED BY: [employer] [facility] [id number] TSH 3.000 {uIU/mL} (Normal) Range: 0.450-4.500 :48 LIPID PANEL (70292) Comments: PATIENT WAS FASTINGPERFORMED BY: [employer] [facility] [id number] LDL/HDL Ratio 2.8 {ratio_units} (Normal) Range: 0.0-3.2 LDL Cholesterol Calc 105 mg/dL (Abnormal) Range: 0-99 VLDL Cholesterol Leonel 26 mg/dL (Normal) Range: 5-40 HDL Cholesterol 37 mg/dL (Abnormal) Comments: According to ATP-III Guidelines, HDL-C >59 mg/dL is considered anegative risk factor for CHD. Cholesterol, Total 168 mg/dL (Normal) Range: 100-199 Triglycerides 128 mg/dL (Normal) Range: 0-149 :48 URINALYSIS, W/ MICRO (88420) Comments: PATIENT WAS FASTINGPERFORMED BY: OutboundEngineZia Health ClinicIriflp2248 [facility] [id number] Microscopic Examination See below: (Normal) Microscopic Examination MICRON (Normal) Comments: Microscopic follows if indicated. Nitrite, Urine Negative (Normal) Urobilinogen,Semi-Qn 0.2 mg/dL (Normal) Range: 0.0-1.9 Bilirubin Negative (Normal) Occult Blood Negative (Normal) Ketones Negative (Normal) Glucose Negative (Normal) Protein Negative (Normal) WBC Esterase Negative (Normal) Appearance Clear (Normal) Urine-Color Yellow (Normal) pH 6.0 (Normal) Range: 5.0-7.5 Specific [place] 1.026 (Normal) Range: 1.005-1.030 :48 MICROALBUMIN: CREATININE RATIO Comments: PATIENT WAS FASTINGPERFORMED BY: [employer] Hsldfb8232 [facility] [id number] (17644) AND (65043) Microalb/Creat Ratio 3.5 {mg/g_creat} (Normal) Range: 0.0-30.0 Microalbumin, Urine 5.6 ug/mL (Normal) Range: 0.0-17.0 Creatinine, Urine 158.6 mg/dL (Normal) Range: 15.0-328.0 :48 METABOLIC PANEL, COMPREHENSIVE Comments: PATIENT WAS FASTINGPERFORMED BY: OutboundEngineSt. Joseph's Regional Medical CenterHsovwz2029 [facility] [id number] (84970) ALT (SGPT) 26 [iU]/L (Normal) Range: 0-32 [...] Glucose, Serum 100 mg/dL (Abnormal) Range: 65-99 19-Pxu-02935:48 CBC WITH MANUAL DIFF Comments: PATIENT WAS FASTINGPERFORMED BY: LabCoSt. Joseph's Regional Medical CenterQlqhav1829 [facility] [id number] Information: [id number] (53360) Immature Grans (Abs) 0.0 {x10E3/uL} (Normal) Range: [...] to dr sánchez; PATIENT WAS FASTINGPERFORMED BY: CBLPathSt. Joseph's Regional Medical CenterJahbkx3306 [address] [facility] [id number] (44841) ALT (SGPT) 25 [iU]/L (Normal) Range: 0-32 AST (SGOT) 21 [iU]/L (Normal) Range: 0-40 Alkaline Phosphatase, S 103 [iU]/L (Normal) Range: 39-117 Bilirubin, Direct 0.16 mg/dL (Normal) Range: 0.00-0.40 Bilirubin, Total 0.8 mg/dL (Normal) Range: 0.0-1.2 Albumin, Serum 4.7 g/dL (Normal) Range: 3.5-5.5 Protein, Total, Serum 7.1 g/dL (Normal) Range: 6.0-8.5 :41 LIPID PANEL (42514) Comments: send to dr sánchez; PATIENT WAS FASTINGPERFORMED BY: OutboundEngineSt. Joseph's Regional Medical CenterMvppgv7389 [facility] [id number] Information: [id number] 1 LDL Cholesterol Calc 104 mg/dL (Abnormal) Range: 0-99 LDL/HDL Ratio 2.7 {ratio_units} (Normal) Range: 0.0-3.2 HDL Cholesterol 39 mg/dL (Abnormal) Comments: According to ATP-III Guidelines, HDL-C >59 mg/dL is considered anegative risk factor for CHD. VLDL Cholesterol Leonel 20 mg/dL (Normal) Range: 5-40 Triglycerides 100 mg/dL (Normal) Range: 0-149 Cholesterol, Total 163 mg/dL (Normal) Range: 100-199 :47 HgA1C , Office (30884) HgA1C , Office 5.7 % (Normal) Range: 4.6 - 7.1 :47 Blood Glucose , Office (70781) Blood Glucose , Office 142 (Normal) :18 Microscopic Examination Comments: PATIENT WAS FASTINGPERFORMED BY: [employer] Wozlxm90[address] [id number] Bacteria None seen (Normal) Mucus Threads Present (Normal) Epithelial Cells (non renal) 0-10 {/hpf} (Normal) Range: 0 - 10 RBC None seen {/hpf} (Normal) Range: 0 - 3 WBC 0-5 {/hpf} (Normal) Range: 0 - 5 :18 Vitamin D Hydroxy (16654) Comments: PATIENT WAS FASTINGPERFORMED BY: CBLPathrp Tmlakn2127 [address] [facility]: [place] [id number] Vitamin D, 25-Hydroxy 21.1 ng/mL (Abnormal) Range: 30.0-100.0 Comments: Vitamin D deficiency has been defined by the [place] ofMedicine and an Endocrine Society practice guideline as alevel of serum 25-OH vitamin D less than 20 ng/mL (1,2).The Endocrine Society went on to further define vitamin Dinsufficiency as a level between 21 and 29 ng/mL (2).1. IOM ([place] of Medicine). 2010. Dietary reference intakes for calcium and D. [place]: The National Academies Press.2. Catie MF, Karon NC, Myron KESSLER, et al. Evaluation, treatment, and prevention of vitamin D deficiency: an Endocrine Society clinical practice guideline. JCEM. 2010; 96(7):1911-30. :18 TSH (64091) Comments: PATIENT WAS FASTINGPERFORMED BY: [employer] [facility] Wsbnep3112 [address] RoadDublin [place] [id number] TSH 2.340 {uIU/mL} (Normal) Range: 0.450-4.500 :18 URINALYSIS, W/ MICRO (05803) Comments: PATIENT WAS FASTINGPERFORMED BY: OutboundEngineSt. Joseph's Regional Medical CenterPmpdwx3033 [facility] [id number] Microscopic Examination See below: (Normal) Microscopic Examination MICRON (Normal) Comments: Microscopic follows if indicated. Nitrite, Urine Negative (Normal) Urobilinogen,Semi-Qn 0.2 mg/dL (Normal) Range: 0.0-1.9 Bilirubin Negative (Normal) Occult Blood Negative (Normal) Ketones Negative (Normal) Glucose Negative (Normal) Protein Negative (Normal) WBC Esterase Negative (Normal) Appearance Clear (Normal) pH 6.0 (Normal) Range: 5.0-7.5 Urine-Color Yellow (Normal) Specific [place] 1.024 (Normal) Range: 1.005-1.030 :18 MICROALBUMIN: CREATININE RATIO Comments: PATIENT WAS FASTINGPERFORMED BY: OutboundEngineSt. Joseph's Regional Medical CenterKlmmrm3382 [facility] [id number] (18315) AND (71796) Microalb/Creat Ratio 2.7 {mg/g_creat} (Normal) Range: 0.0-30.0 Creatinine, Urine 138.1 mg/dL (Normal) Range: 15.0-278.0 Microalbumin, Urine 3.7 ug/mL (Normal) Range: 0.0-17.0 :18 METABOLIC PANEL, COMPREHENSIVE Comments: PATIENT WAS FASTINGPERFORMED BY: OutboundEngineSt. Joseph's Regional Medical CenterFxndnr6637 [facility] [id number] (47444) ALT (SGPT) 25 [iU]/L (Normal) Range: 0-32 [...] mg/dL (Normal) Range: 65-99 :18 LIPID PANEL (17647) Comments: PATIENT WAS FASTINGPERFORMED BY: [facility] [id number] LDL/HDL Ratio 2.8 {ratio_units} (Normal) Range: 0.0-3.2 [...] MANUAL DIFF Comments: PATIENT WAS FASTINGPERFORMED BY: [employer] [facility] [id number] Information: [id number] (67667) Immature Grans (Abs) 0.0 {x10E3/uL} (Normal) Range: [...] (Normal) Range: 3.4-10.8 :31 HgA1C , Office (59026) HgA1C , Office 5.5 % (Normal) Range: 4.6 - 7.1 :31 Blood Glucose , Office (21452) Blood Glucose , Office 113 (Normal) :23 HgA1C , Office (68191) HgA1C , Office 6.1 % (Normal) Range: 4.6 - 7.1 :23 Blood Glucose , Office (67216) Blood Glucose , Office 118 (Normal) :33 Microscopic Examination Comments: PATIENT WAS FASTINGPERFORMED BY: LabOaklawn Hospital6370 [facility] [id number] Bacteria None seen (Normal) Mucus Threads Present (Normal) Epithelial Cells (non renal) 0-10 {/hpf} (Normal) Range: 0 - 10 RBC 0-3 {/hpf} (Normal) Range: 0 - 3 WBC 0-5 {/hpf} (Normal) Range: 0 - 5 77-Zjh-653779:27 FECAL OCCULT HGB ASSAY- tubes sent home (12676) FECAL OCCULT HGB ASSAY, QUAL, 1-3 SIMULTANEOU negative (Normal) 72-Tdu-862735:33 TSH (41647) Comments: PATIENT WAS FASTINGPERFORMED BY: Vertishear70 [address] [facility] [id number] TSH 3.330 {uIU/mL} (Normal) Range: 0.450-4.500 :33 URINALYSIS, W/ MICRO (72937) Comments: PATIENT WAS FASTINGPERFORMED BY: Vertishear70 [facility] [id number] Microscopic Examination See below: (Normal) Microscopic Examination MICRON (Normal) Comments: Microscopic follows if indicated. Nitrite, Urine Negative (Normal) Urobilinogen,Semi-Qn 0.2 mg/dL (Normal) Range: 0.0-1.9 Bilirubin Negative (Normal) Occult Blood Negative (Normal) Ketones Negative (Normal) Glucose Negative (Normal) Protein Negative (Normal) WBC Esterase Negative (Normal) Appearance Clear (Normal) Urine-Color Yellow (Normal) pH 7.0 (Normal) Range: 5.0-7.5 Specific [place] 1.021 (Normal) Range: 1.005-1.030 25-Xbm-597496:33 MICROALBUMIN: CREATININE RATIO Comments: PATIENT WAS FASTINGPERFORMED BY: [employer] Asfezg1818 [facility] [id number] (57691) AND (60783) Microalb/Creat Ratio 1.6 {mg/g_creat} (Normal) Range: 0.0-30.0 Creatinine, Urine 154.5 mg/dL (Normal) Range: 15.0-278.0 Microalbumin, Urine 2.5 ug/mL (Normal) Range: 0.0-17.0 87-Hni-387542:33 METABOLIC PANEL, COMPREHENSIVE Comments: PATIENT WAS FASTINGPERFORMED BY: 2sms6370 [facility] [id number] (01446) ALT (SGPT) 24 [iU]/L (Normal) Range: 0-32 [...] Glucose, Serum 105 mg/dL (Abnormal) Range: 65-99 01-Gpj-995298:33 LIPID PANEL (78500) Comments: PATIENT WAS FASTINGPERFORMED BY: Reactful70 [facility] [id number] LDL Cholesterol Calc 115 mg/dL (Abnormal) Range: 0-99 LDL/HDL Ratio 2.9 {ratio_units} (Normal) Range: 0.0-3.2 HDL Cholesterol 39 mg/dL (Abnormal) Comments: According to ATP-III Guidelines, HDL-C >59 mg/dL is considered anegative risk factor for CHD. VLDL Cholesterol Leonel 32 mg/dL (Normal) Range: 5-40 Cholesterol, Total 186 mg/dL (Normal) Range: 100-199 Triglycerides 160 mg/dL (Abnormal) Range: 0-149 57-Yzc-768960:33 CBC WITH MANUAL DIFF Comments: PATIENT WAS FASTINGPERFORMED BY: [facility] Otwgvm4567 [facility] [id number] Information: [id number] (64405) Immature Grans (Abs) 0.0 {x10E3/uL} (Normal) Range: [...] (Normal) Range: 4.0-10.5 :33 Vitamin D Hydroxy (51331) Comments: PATIENT WAS FASTINGPERFORMED BY: [employer] Xbtpes7212 [facility] [id number] Vitamin D, 25-Hydroxy 46.4 ng/mL (Normal) Range: 30.0-100.0 Comments: Vitamin D deficiency has been defined by the [place] ofPark[facility] Health Bryan Hospitalcine and an Endocrine Society practice guideline as alevel of serum 25-OH vitamin D less than 20 ng/mL (1,2).The Endocrine Society went on to further define vitamin Dinsufficiency as a level between 21 and 29 ng/mL (2).1. IOM ([place] of Medicine). 2010. Dietary reference intakes for calcium and D. [place]: The National Academies Press.2. Catie MF, Karon NC, Myron KESSLER, et al. Evaluation, treatment, and prevention of vitamin D deficiency: an Endocrine Society clinical practice guideline. JCEM. 2010; 96(7):1911-30. :58 HgA1C , Office (21242) HgA1C , Office 6.0 % (Normal) Range: 4.6 - 7.1 :58 Blood Glucose , Office (45326) Blood Glucose , Office 92 (Normal) :59 HgA1C , Office (41247) HgA1C , Office 5.5 % (Normal) Range: 4.6 - 7.1 :59 Blood Glucose , Office (38689) Blood Glucose , Office 105 (Normal) :40 LIPID PANEL (36387) Comments: PATIENT WAS FASTINGPERFORMED BY: OutboundEngineSt. Joseph's Regional Medical CenterQbvcnd4351 [facility] [id number] LDL Cholesterol Calc 144 mg/dL (Abnormal) Range: 0-99 LDL/HDL Ratio 3.1 {ratio_units} (Normal) Range: 0.0-3.2 VLDL Cholesterol Leonel 24 mg/dL (Normal) Range: 5-40 HDL Cholesterol 46 mg/dL (Normal) Comments: According to ATP-III Guidelines, HDL-C >59 mg/dL is considered anegative risk factor for CHD. Triglycerides 118 mg/dL (Normal) Range: 0-149 Cholesterol, Total 214 mg/dL (Abnormal) Range: 100-199 2-Zzo-716288:40 TSH (55016) Comments: PATIENT WAS FASTINGPERFORMED BY: CBLPath MyLuvs [facility] [id number] TSH 2.430 {uIU/mL} (Normal) Range: 0.450-4.500 7-Nqm-348935:40 URINALYSIS, W/ MICRO (70413) Comments: PATIENT WAS FASTINGPERFORMED BY: [employer] [facility] [id number] Microscopic Examination See below: (Normal) Microscopic Examination MICRON (Normal) Comments: Microscopic follows if indicated. Nitrite, Urine Negative (Normal) Urobilinogen,Semi-Qn 0.2 mg/dL (Normal) Range: 0.0-1.9 Bilirubin Negative (Normal) Occult Blood Negative (Normal) Ketones Negative (Normal) Glucose Negative (Normal) Protein Negative (Normal) WBC Esterase Negative (Normal) Appearance Clear (Normal) Urine-Color Yellow (Normal) pH 5.5 (Normal) Range: 5.0-7.5 Specific [place] 1.022 (Normal) Range: 1.005-1.030 0-Xvd-909059:40 MICROALBUMIN: CREATININE RATIO Comments: PATIENT WAS FASTINGPERFORMED BY: CBLPathSt. Joseph's Regional Medical CenterVqvgyp2635 [facility] [id number] ([id number]) AND (48057) Microalb/Creat Ratio 2.2 {mg/g_creat} (Normal) Range: 0.0-30.0 Creatinine, Urine 124.7 mg/dL (Normal) Range: 15.0-278.0 Microalbumin, Urine 2.7 ug/mL (Normal) Range: 0.0-17.0 :40 METABOLIC PANEL, COMPREHENSIVE Comments: PATIENT WAS FASTINGPERFORMED BY: DAVID LabCoSt. Joseph's Regional Medical CenterCeuydq5814 [facility] [id number] ([id number]) ALT (SGPT) 27 [iU]/L (Normal) Range: 0-32 [...] Glucose, Serum 119 mg/dL (Abnormal) Range: 65-99 1-Maq-409041:40 CBC WITH MANUAL DIFF Comments: PATIENT WAS FASTINGPERFORMED BY: [facility] Enjzcl1937 [facility] [id number] Information: [id number] (26290) Immature Grans (Abs) 0.0 {x10E3/uL} (Normal) Range: [...] 3.77-5.28 WBC 5.9 {x10E3/uL} (Normal) Range: 4.0-10.5 :40 Microscopic Examination Comments: PATIENT WAS FASTINGPERFORMED BY: LabOaklawn Hospital6370 [facility] [id number] Bacteria None seen (Normal) Mucus Threads Present (Normal) Epithelial Cells (non renal) 0-10 {/hpf} (Normal) Range: 0 - 10 RBC None seen {/hpf} (Normal) Range: 0 - 3 WBC 0-5 {/hpf} (Normal) Range: 0 - 5 :59 HgA1C , Office (62639) HgA1C , Office 5.8 % (Normal) Range: 4.6 - 7.1 :59 Blood Glucose , Office (29485) Blood Glucose , Office 137 (Normal) 7-Bec-893237:50 URINE SHANI CULTURE (MICHAEL Comments: PATIENT NOT FASTINGPERFORMED BY: OutboundEngineSt. Joseph's Regional Medical CenterCvaryo7996 [facility] [id number] Information: SRC:TERRANCE [id number] COL COUNT) ([id number]) Result 1 MUG (Normal) Comments: Mixed urogenital flora10,000-25,000 colony forming units per mL Urine Final report (Normal) Culture,Comprehensive :53 Urinalysis, Office (16786) UA - BILIRUBIN Large (Normal) UA - BLOOD Negative (Normal) UA - GLUCOSE Negative (Normal) UA - KETONES Negative mg/dL (Normal) UA - LEUKOCYTE ESTERASE Negative (Normal) UA - NITRITE Negative (Normal) UA - PH 6.0 (Normal) UA - PROTEIN Negative mg/dL (Normal) UA - SPECIFIC GRAVITY 1.025 (Normal) URINE UROBILINGN MICHAEL TIMED Normal mg/dL (Normal) 04-Itl-483547:17 Microscopic Examination Comments: PATIENT WAS FASTINGPERFORMED BY: [employer]6370 [facility] [id number] Bacteria None seen (Normal) Mucus Threads Present (Normal) Epithelial Cells (non renal) 0-10 {/hpf} (Normal) Range: 0 - 10 RBC 0-3 {/hpf} (Normal) Range: 0 - 3 WBC 0-5 {/hpf} (Normal) Range: 0 - 5 50-Gca-926420:32 L/S SPINE,MIN 4 VIEWS Radiology Report See [...] Saxena M.D.September 24, 2011 at 3:23:12 PM [id number] Signed GP/GP If you are the referring physician and would like t o consult with theradiologist who provided this interpretation, please contact Marcelo Choudhury at [phone]. If this radiologist is unavailable, youwill be directed to another radiologist to assist. If you are a patient with a question regarding this report, pleasecontactyour referring physician directly. Professional Interpretation Provided By: [employer], Phone ,Fax Dictated on 09/24/11 1000 by Odessa VIDALES,AdamriBrandyranscribed on 09/24/11 1530 by ITS IMPORTSign by Odessa VIDALES,Ross on 09/24/11 1530 Sign by: Odessa VIDALES,Ross 45-Ipr-444976:17 Hemoglobin Glyclated (HGB A1C) Comments: PATIENT WAS FASTINGPERFORMED BY: [employer]6370 [facility] [id number] ([id number]) Hemoglobin A1c 5.6 % (Normal) Range: 4.8-5.6 Comments: . Increased risk for diabetes: 5.7 - 6.4 Diabetes: >6.4 Glycemic control for adults with diabetes: <7.0 88-Pyq-387171:17 LIPID PANEL (83999) Comments: PATIENT WAS FASTINGPERFORMED BY: [employer]6370 [facility] [id number] LDL/HDL Ratio 3.2 {ratio_units} (Normal) Range: 0.0-3.2 LDL Cholesterol Calc 126 mg/dL (Abnormal) Range: 0-99 VLDL Cholesterol Leonel 30 mg/dL (Normal) Range: 5-40 HDL Cholesterol 40 mg/dL (Normal) Comments: According to ATP-III Guidelines, HDL-C >59 mg/dL is considered anegative risk factor for CHD. Triglycerides 151 mg/dL (Abnormal) Range: 0-149 Cholesterol, Total 196 mg/dL (Normal) Range: 100-199 99-Tap-331863:17 TSH (76135) Comments: PATIENT WAS FASTINGPERFORMED BY: ElsaLys BiotechOaklawn Hospital6370 [facility] [id number] TSH 2.330 {uIU/mL} (Normal) Range: 0.450-4.500 79-Fea-106016:17 URINALYSIS, W/ MICRO (53506) Comments: PATIENT WAS FASTINGPERFORMED BY: ElsaLys BiotechOaklawn Hospital6370 [facility] [id number] Microscopic Examination See below: (Normal) Microscopic Examination MICRON (Normal) Comments: Microscopic follows if indicated. Nitrite, Urine Negative (Normal) Urobilinogen,Semi-Qn 0.2 mg/dL (Normal) Range: 0.0-1.9 Bilirubin Negative (Normal) Occult Blood Negative (Normal) Ketones Negative (Normal) Glucose Negative (Normal) Protein Negative (Normal) WBC Esterase Negative (Normal) Appearance Clear (Normal) Urine-Color Yellow (Normal) pH 5.0 (Normal) Range: 5.0-7.5 Specific [place] 1.022 (Normal) Range: 1.005-1.030 39-Yil-369097:17 MICROALBUMIN: CREATININE RATIO Comments: PATIENT WAS FASTINGPERFORMED BY: OutboundEngineSt. Joseph's Regional Medical CenterZzbchj9986 [facility] [id number] (90992) AND (39908) Microalb/Creat Ratio 2.4 {mg/g_creat} (Normal) Range: 0.0-30.0 Microalbumin, Urine 3.0 ug/mL (Normal) Range: 0.0-17.0 Creatinine, Urine 125.5 mg/dL (Normal) Range: 15.0-278.0 55-Xyd-708919:17 METABOLIC PANEL, COMPREHENSIVE Comments: PATIENT WAS FASTINGPERFORMED BY: ElsaLys BiotechOaklawn Hospital6370 [facility] [id number] (38162) ALT (SGPT) 18 [iU]/L (Normal) Range: 0-40 [...] Glucose, Serum 100 mg/dL (Abnormal) Range: 65-99 28-Aft-852967:17 CBC WITH MANUAL DIFF Comments: PATIENT WAS FASTINGPERFORMED BY: [facility]6370 [facility] [id number] Information: [id number] (58480) Immature Grans (Abs) 0.0 {x10E3/uL} (Normal) Range: [...] (Normal) Range: 4.0-10.5 :17 Vitamin D Hydroxy (19519) Comments: PATIENT WAS FASTINGPERFORMED BY: [facility]6370 [facility] [id number] Vitamin D, 25-Hydroxy 15.2 ng/mL (Abnormal) Range: 30.0-100.0 Comments: Vitamin D deficiency has been defined by the [place] ofPark[facility] Hospitalcine and an Endocrine Society practice guideline as alevel of serum 25-OH vitamin D less than 20 ng/mL (1,2).The Endocrine Society went on to further define vitamin Dinsufficiency as a level between 21 and 29 ng/mL (2).1. IOM ([place] of Medicine). 2010. Dietary reference intakes for calcium and D. [place]: The National Academies Press.2. Catie MF, Karon NC, Myron KESSLER, et al. Evaluation, treatment, and prevention of vitamin D deficiency: an Endocrine Society clinical practice guideline. JCEM. 2010; 96(7):1911-30. :46 CK, Total+Isoenzymes, Serum Comments: PATIENT NOT FASTINGPERFORMED BY: [employer] Devlcq6754 [facility] [id number] CK-BB 0 % (Normal) CK-MB 0 % (Normal) Range: 0-3 Macro Type 1 0 % (Normal) CK-MM 100 % (Normal) Range: 97-100 Macro Type 2 0 % (Normal) Creatine Kinase,Total,Serum 82 U/L (Normal) Range: 24-173 00-Mys-944154:00 Urinalysis, Office (98592) UA - BILIRUBIN Negative (Normal) UA - BLOOD Negative (Normal) UA - GLUCOSE Negative (Normal) UA - KETONES Negative mg/dL (Normal) UA - LEUKOCYTE ESTERASE Negative (Normal) UA - NITRITE Negative (Normal) UA - PH 5.0 (Normal) UA - PROTEIN Negative mg/dL (Normal) UA - SPECIFIC GRAVITY 1.025 (Normal) URINE UROBILINGN MICHAEL TIMED Normal mg/dL (Normal) 46-Ukm-287273:49 HgA1C , Office (02425) HgA1C , Office 6.4 % (Normal) Range: 4.6 - 7.1 55-Ojk-446897:49 Blood Glucose , Office (14265) Blood Glucose , Office 186 (Normal) 18-Fwp-175118:14 Metabolic Panel, Basic Comments: PATIENT NOT FASTINGPERFORMED BY: OutboundEngineSt. Joseph's Regional Medical CenterVrcspv2840 [facility] [id number] Information: [id number] (86757) Calcium, Serum 9.4 mg/dL (Normal) Range: 8.7-10.2 [...] Glucose, Serum 202 mg/dL (Abnormal) Range: 65-99 47-Nco-43803:45 Urinalysis, Office (49186) UA - BILIRUBIN Small (Normal) UA - BLOOD Negative (Normal) UA - GLUCOSE Negative (Normal) UA - KETONES Small mg/dL (Normal) UA - LEUKOCYTE ESTERASE Negative (Normal) UA - NITRITE Negative (Normal) UA - PH 5.0 (Normal) UA - PROTEIN Negative mg/dL (Normal) UA - SPECIFIC GRAVITY 1.025 (Normal) URINE UROBILINGN MICHAEL TIMED Normal mg/dL (Normal) 2-Gdu-415220:50 URINE SHANI CULTURE-MICHAEL COL Comments: PATIENT NOT FASTINGPERFORMED BY: LabCoSt. Joseph's Regional Medical CenterJmbygk5204 [facility] [id number] Information: SRC:URC [id number] COUNT (13466) Result 1 ECV (Normal) Comments: Escherichia coli, [...] S Urine Final report (Normal) Culture,Comprehensiv e 4-Jnb-523248:27 Urinalysis, Office (84865) UA - BILIRUBIN Small (Normal) UA - BLOOD Hemolyzed Large (Normal) UA - GLUCOSE Negative (Normal) UA - KETONES Negative mg/dL (Normal) UA - LEUKOCYTE ESTERASE Small (Normal) UA - NITRITE Negative (Normal) UA - PH 6.0 (Normal) UA - PROTEIN 300 mg/dL (Normal) UA - SPECIFIC GRAVITY 1.025 (Normal) URINE UROBILINGN MICHAEL TIMED Normal mg/dL (Normal) 57-Lkr-965911:03 CALCIFIDIOL (46132) VIT D Comments: PATIENT NOT FASTINGPERFORMED BY: DAVID [facility] Jeaxwj1416 [place] [id number] Information: [id number] Vitamin D, 25-Hydroxy 28.0 ng/mL (Abnormal) Range: 32.0-100.0 Comments: Effective January 26, 2011 Vitamin D, 25-Hydroxy reference intervals will be changing to 30-100. .Recent studies consider the lower li lucio of 32.0 ng/mL to be athreshold for optimal health.Francisco Javier FOSTER. J Nutr. 2004;135(2):317-22. 69-Tst-004879:09 KNEE,4 OR MORE VIEWS Radiology Report See [...] the medial joint space narrowing. Dictated on 10/02/10 1409 by Byron Saxena MDeleTranscribed on 10/03/10 1324 by ITS IMPORTSign by Ross Saxena MD on 10/03/10 1324 Sign by: Ross Saxena MD 13-Eyb-54285:00 KNEE,4 OR MORE VIEWS Radiology Report See [...] x-ray examination of the knee. Dictated on 10/02/10 1409 by Odessa VIDALES,AdamrieleTranscribed on 10/03/10 1324 by ITS IMPORTSign by Ross Saxena MD on 10/03/10 1325 Sign by: Ross Saxena MD 40-Isb-55726:00 RHEUMATOID FACTOR-QUANT Comments: PATIENT NOT FASTINGPERFORMED BY: [employer] [place] [id number] BY: OutboundEngineLori [place] [id number] (49981) RA Latex Turbid. 8.6 {IU/mL} (Normal) Range: 0.0-13.9 :00 PARATHORMONE (04766) Comments: PATIENT NOT FASTINGPERFORMED BY: [employer] [place] [place] [id number] BY: [employer] [id number] PTH, Intact 23 pg/mL (Normal) Range: 15-65 :00 CALCIUM SERUM (03672) Comments: PATIENT NOT FASTINGPERFORMED BY: [employer] InternationalUNC Health [facility] [id number] BY: [employer] [id number] Calcium, Serum 9.4 mg/dL (Normal) Range: 8.7-10.2 CCP Antibodies IgG/IgA 3 {units} (Normal) Comments: PATIENT NOT FASTINGPERFORMED BY: [employer]: [place] [id number] BY: [employer] [id number] :[id number] Range: 0-19 Comments: Negative <20 Weak positive 20 - 39 Moderate positive 40 - 59 Strong positive >59 :15 STEVE DIR SEMI-QL STEVE DIRECT 33 AU/mL (Normal) :15 ANTI JO1 ANTI AIBGAIL 7 AU/mL (Normal) :15 C-REACTIVE PROT 3.34 mg/L (Abnormal) Range: 0.0-3.0 [...] {uIU/mL} (Normal) Range: 0.358-3.74 :15 VIT D,25 64794 13.3 ng/mL (Abnormal) Comments: appt 09/29/10 Range: 32.0-100.0 Comments: Recent studies consider the lower limit of 32.0 ng/mL to dory threshold for optimal health.Francisco Javier FOSTER. J Nutr. 2004;135(2):317-22.Performed at: [place] [address] Director: Hamida Boyer MD, Phone: [phone] 27-Rbv-76079:20 HEPATOBILIARY IMAGING Radiology Report See Note (Normal) [...] [employer]. Dictated on 05/08 03/18 0509 by Aylin Saxena MDranscribed on 06/05/10 1346 by ITS IMPORTSign by Ross Saxena MD on 06/05/10 134 Sign by: Ross Saxena MD 97-Pdw-04880:51 GALLBLADDER Radiology Report See Note (Normal) Comments: [...] 1015 by ITS IMPORTSign by Meredith OCASIO MD on 05/27/10 1015 Sign by: ADRIAN OCASIO MD H.PYLORI [id number] < 0.9 U/mL Range: 0.0-0.8 3:08 (Normal) Comments: Negative <0.9 Indeterminate 0.9 - 1.0 Positive >1.0Performed at: CB - [facility] Jnnpxj78 [address] [place], [place] [id number] Director: Hamida Boyer MD, Phone: [phone] 49-Atb-270096:21 FECAL OCCULT- Tubes sent home (59273) FECAL OCCULT HGB ASSAY, QUAL, 1-3 SIMULTANEOU negative (Normal) 11-Sep-20088:22 THYROID IMAGING ONLY Radiology Report See Note (Normal) Comments: Exam Number: [id number] THYROID SCAN AND UPTAKE The patient was [...] on August. Reported By: KEVIN YUAN M.D. 30-Lps-901920:05 THYROID Radiology Report See Note (Normal) Comments: Exam Number: [id number] CLINICAL:52-year-old female with nodules ULTRASOUND THYROID COMPARISON:None. [...] Report See Note (Normal) Comments: Exam Number: [id number] CLINICAL:52-year-old female with swollen areas at base of neck, anteriorly. Possible supraclavicular masses. History of swelling in the supraclavicular regions for 6 days which is not present in the director community health nursing, but swells later in the day. No [...] further evaluation. Reported By: DONTAE ESPINAL M.D. 51-Mce-032931:47 UPPER EXT/JT ONLY (ROUTINE) Radiology Report See Note (Normal) Comments: Exam Number: [id number] MRI OF THE RIGHT SHOULDER WITHOUT CONTRAST. [...] subacromial fat. Reported By: EMELI COLEMAN M.D. 7-Yqk-910605:03 SHOULDER,MIN 2 VIEWS (MT) Radiology Report See Note (Normal) Comments: Exam Number: [id number] RIGHT SHOULDER, 4 VIEWS CLINICAL STATEMENTPain. PRIOR STUDIESNone. No acute fracture, joint dislocation or AC joint separation is shown. Joint spaces are maintained. No significa nt spurring or pathologiccalcifications. No suspicious bone lesions. Right lung apex isclear. IMPRESSIONNegative right shoulder. Reported By: LESLI CURIEL M.D. 83-Imf-316369:15 GASTRIC EMPTYING STUDY Radiology Report See Note (Normal) Comments: Exam Number: [id number] NUCLEAR MEDICINE GASTRIC EMPTYING STUDY SOLID PHASE [...] II, controlled, with no complications : Reviewed Entertainment Musician Letter Indication: Diabetes mellitus type II, controlled, [...] in 3 weeks or keep current mar app Indication: Impaired fasting glucose Impaired fasting glucose : Eprescribed prescriptions (G8553) Indication: Impaired fasting glucose Type II diabetes mellitus, well controlled : Follow up in 1 week Indication: Type II diabetes mellitus, well controlled Abscess, abdomen : Reviewed Entertainment Musician Letter Indication: Abscess, abdomen Type II diabetes mellitus, well controlled : Eprescribed prescriptions (G8553) Indication: Type II diabetes mellitus, well controlled Abscess, abdomen : Reviewed Entertainment Musician Letter- dr Tomas then wound care clinic / [place] Indication: Abscess, [...] : Follow up in 2 weeks with [facility] for diabetic teaching Indication: Other [...] disease) Planned Observations Rapid Strep Test, Office (37885)Indication: Sore throat On: 04-Phi-808998:31 Request SED RATE ERYTHROCYTE (46188)Indication: Abscess, abdomen On: 16-Dec-2015 Request BACT CULTURE ANY-ANAEROBIC (06562)Indication: Abscess, abdomen On: 13-Dec-20157:42 Request CALCIFIDIOL (08499) VIT D 25Indication: Vitamin D deficiency, unspecified On: 33-Cej-419254:30 Request CPK MB FRACTION (87592)Indication: Chest pain at rest On: 6-Loa-662242:30 Request CREATINE KINASE TOTAL (74414)Indication: Chest pain at rest On: 3-Fxy-408498:30 Request Troponin I (14944)Indication: Chest pain On: 42-Qsc-681141:19 Request CPK MB FRACTION (39678)Indication: Chest pain On: 62-Exx-032812:19 Request CREATINE KINASE TOTAL (17521)Indication: Chest pain On: 10-Via-055652:19 Request C-Reactive Protein (50539)Indication: Chest pain On: 98-Tsd-333486:19 Request Vitamin D Hydroxy (24148)Indication: Vitamin D deficiency, unspecified On: 46-Nvw-25221:00 Request TSH (42636)Indication: Diabetes mellitus type II, controlled, with no complications On: 67-Fyi-58920:59 Request URINALYSIS, W/ MICRO (58939)Indication: Diabetes mellitus type II, controlled, with no complications On: 31-Cih-56961:59 Request MICROALBUMIN: CREATININE RATIO (96108) AND (87565)Indication: Diabetes mellitus type II, controlled, with no complications On: :59 Request METABOLIC PANEL, COMPREHENSIVE (78659)Indication: Diabetes mellitus type II, controlled, with no complications On: 94-Yym-42256:59 Request LIPID PANEL (48530)Indication: Hypercholesteremia On: :59 Request CBC W/AUTO DIFF WBC (42556)Indication: Diabetes mellitus type II, controlled, with no complications On: :59 Request Blood Glucose , Office (65679)Indication: Diabetes mellitus type II, controlled, with no complications On: 12-Miq-37216:51 Request Lipid Panel (80656)Indication: Hypercholesteremia On: 15-Kyc-307736:10 Request HEPATIC FUNCTION PANEL (70592)Indication: Hypercholesteremia On: :10 Request LIPID PANEL (83850)Indication: Hypercholesteremia On: 73-Frf-81220:48 Request CPK TOTAL & ISOENZYMES (07555)Indication: Epigastric pain On: 26-Jzk-108085:33 Request Urinalysis, Office (16855)Indication: Dysuria On: 1-Lod-500926:01 Request CCP ANTIBODY (64723)Indication: Pain in joint, unspecified site On: 12-Ehh-40500:51 Request STEVE (ANTINUCLEAR ANTIBODY) (33941)Indication: Myalgia On: 20-Ypf-875209:24 Request CALCIFIDIOL (31080) VIT D 25Indication: Myalgia On: :20 Request TSH (65141)Indication: Myalgia On: 61-Yvc-946126:20 Request SED RATE ERYTHROCYTE (29616)Indication: Myalgia On: :20 Request STEVE (ANTINUCLEAR ANTIBODY) (84213)Indication: Myalgia On: 36-Qif-893387:20 Request Anti-Abigail-1 (00853)Indication: Myalgia On: :20 Request Creatine Kinase Total (74446)Indication: Myalgia On: :19 Request C-Reactive Protein (36821)Indication: Myalgia On: 85-Mfq-056854:19 Request HELICOBACTER PYLORI ANTIBODY (79541)Indication: Epigastric pain On: 67-Xbe-087478:21 Request Planned Procedures B 12 Injection, 1000 mcg On: 04-Feb-2018 Intent (J3420)By: Tammy Shaw Comments: lot:[id number]:Byz2578wocq/route:L dltdamt:1mlJasmin, CCMA B 12 Injection, 1000 mcg On: 24-Jan-2018 Intent (J3420)By: Tammy Shaw Comments: lot:[id number]:July 2019site/route: L dltdamt: 1mlJasmin, CCMA B 12 Injection, 1000 mcg On: 05-Jan-2018 Intent (J3420)By: Lexy ISAACS, Comments: lot: [id number]: ite/route: R del/IMamt: 1mLVIS signed when applicableCheCRISTINO quezada DO Leticia B 12 Injection, 1000 mcg On: 09-Dec-2017 Intent (J3420)By: Lexy ISAACS, Comments: Vitamin B12 1000 mcg injectionLot--[id number]--jan 2019L Delt IMpt tolerated wellARAVIND GOLDMAN DO, Leticia B 12 Injection, 1000 mcg On: 26-Nov-2017 Intent (J3420)By: Tammy Shaw Comments: lot:[id number]:jan 2019site/route:L deltoid amt:1ml 1,000mcg/mlJasmin, CCMA B 12 Injection, 1000 mcg On: 15-Nov-2017 Intent (J3420)By: Lexy ISAACS, Comments: lot: [id number]: 01/24site/route: L del/IMamt: 1mLVIS signed when applicableCRISTINO Casey DO Leticia INJECTION, VITAMIN B-12 On: 27-Oct-2017 Intent CYANOCOBALAMIN, UP TO Comments: lot:[id number]:rte:IM right deltoid dose:1ml given by:fozia Overton LPN 1000 MCG (Special Coverage Instructions Apply. See [facility]: 45-4 and [facility]: 2049) (J3420)By: Visit, Nurse B 12 Injection, 1000 mcg On: 15-Oct-2017 Intent (J3420)By: Visit, Nurse Comments: lot:[id number]:05/2019rte:IM left arm dose:1ml given by:fozia lozadaER, RESIDENT BUYER B 12 Injection, 1000 mcg On: 30-Sep-2017 Intent (J3420)By: Visit, Nurse Comments: [id number], 17932bhqh dltd, IMCM, CUSHION COVER INSPECTOR B 12 Injection, 1000 mcg On: 16-Sep-2017 Intent (J3420)By: Rolando Calderon Comments: Vitamin b12 1000mcg injection lot:[id number]:05/2018L DELT IMpt tolerated well MSMITH,RESIDENT BUYER B 12 Injection, 1000 mcg On: 02-Sep-2017 Intent (J3420)By: Visit, Nurse Comments: 1 ml given rt arm lot [id number] EXP 05/24 B 12 Injection, 1000 mcg On: 19-Aug-2017 Intent (J3420)By: Rolando Calderon Comments: Vitamin b12 1000mcg injection lot:[id number]:12/2018L DELT IMpt tolerated well MSMITH,RESIDENT BUYER B 12 Injection, 1000 mcg On: 06-Aug-2017 Intent (J3420)By: Lexy ISAACS, Comments: vitamin b12 1000mcg injectionlot: [id number]: 12/2018L DELT IMpt tolerated wellAD RESIDENT BUYER Leticia Lexy ISAACS, Leticia B 12 Injection, 1000 mcg On: 22-Jul-2017 Intent (J3420)By: Lexy ISAACS, Comments: Vitamin b12 1000mcg injection lot:[id number]:12/2018R DELT IMpt tolerated well MSMITH,RESIDENT BUYER Leticia Lexy DO, Leticia B 12 Injection, 1000 mcg On: 09-Jul-2017 Intent (J3420)By: Lexy ISAACS, Comments: Vitamin b12 1000mcg injection lot:[id number]:12/2018L DELT IMpt tolerated well MSMITH,RESIDENT BUYER Leticia Lexy ISAACS, Leticia B 12 Injection, 1000 mcg On: 24-Jun-2017 Intent (J3420)By: Lexy ISAACS, Comments: vitamin b12 1000mcg injectionlot: [id number]: 12/2018L DELT IMpt tolerated wellAD RESIDENT BUYER Leticia Lexy DO, Leticia B 12 Injection, 1000 mcg On: 11-Jun-2017 Intent (J3420)By: Christoph CHOPRATanvi Comments: lot [id number] 07/2018rt habw0271 mcgas, RESIDENT BUYER E B 12 Injection, 1000 mcg On: 28-May-2017 Intent (J3420)By: Visit, Nurse Comments: [id number] dltd, IM Toradol Injection, 30 mg On: 28-May-2017 Intent (J1885)By: Visit, Nurse Comments: [id number] hip, IM30mg/2 unitsMLONG, RESIDENT BUYER Toradol Injection, 30 mg On: 21-May-2017 Intent (J1885)By: Lexy ISAACS, Comments: toradol 30mg injectionlot: [id number]: 10/2018L GMpt tolerated wellAD RESIDENT BUYER Leticia Lexy DO, Leticia X-RAY OF SACROILIAC JOINT On: 21-May-2017 Intent (65151)By: Leticia Pugh DO Lexy DO, Leticia B 12 Injection, 1000 mcg On: 13-May-2017 Intent (J3420)By: Visit, Nurse Comments: [id number] dltd, iMMEGAN, RESIDENT BUYER B 12 Injection, 1000 mcg On: 29-Apr-2017 Intent (J3420)By: Lexy ISAACS, Comments: vitamin b12 1000mcg injectionlot: [id number]: 07/2018L DELT IMpt tolerated wellAD RESIDENT BUYER Leticia Lexy DO, Leticia B 12 Injection, 1000 mcg On: 16-Apr-2017 Intent (J3420)By: Yamilex Duffy Comments: vitamin b12 1000mcg injectionlot: [id number]: 07/2018L DELT IMpt tolerated wellAD RESIDENT BUYER B 12 Injection, 1000 mcg On: 01-Apr-2017 Intent (J3420)By: Lexy ISAACS, Comments: vitamin b12 1000mcg injectionlot: [id number]: 07/2019L DELT IMpt tolerated wellAD RESIDENT BUYER Leticia Lexy DO, Leticia B 12 Injection, 1000 mcg On: 18-Mar-2017 Intent (J3420)By: Lexy IASACS, Comments: Lot:[id number]:07/2018Dose:1mlRoute:IMSite:l arm Given By:LATANYA signed Leticia Pugh DO, Leticia B 12 Injection, 1000 mcg On: 04-Mar-2017 Intent (J3420)By: Lexy ISAACS Leticia Lexy DO, Leticia B 12 Injection, 1000 mcg On: 15-Feb-2017 Intent (J3420)By: Tanvi Hawthorne CNP Radiology - Toe(s) - On: 15-Feb-2017 Intent LeftBy: Tanvi Hawthorne CNP Comments: send to Dr Kebede B 12 Injection, 1000 mcg On: 18-Jan-2017 Intent (J3420)By: Lexy ISAACS, Comments: vitamin b12 1000mcg injectionlot: [id number]: 04/2018L DELT IMpt tolerated wellAD RESIDENT BUYER Leticia Pugh DO, Leticia B 12 Injection, 1000 mcg On: 01-Jan-2017 Intent (J3420)By: Lexy ISAACS, Comments: lot: [id number]: 04/26site/route: L del/IMamt: 1mLVIS signed when applicableCheCRISTINO quezada Leticia Pugh DO, Letiica B 12 Injection, 1000 mcg On: 18-Dec-2016 Intent (J3420)By: Lexy ISAACS, Comments: b12 1000mcg lot [id number]: 10/2017L Delt IMpt tolerated wellAD RESIDENT BUYER Leticia Pugh DO, Leticia B 12 Injection, 1000 mcg On: 04-Dec-2016 Intent (J3420)By: Lexy ISAACS, Comments: Lot:[id number]:10/23Dose:1mlRoute:IMSite:l armGiven By:LATANYA signed Leticia Pugh DO, Leticia B 12 Injection, 1000 mcg On: 20-Nov-2016 Intent (J3420)By: Lexy ISAACS, Comments: Lot:[id number]:10/23Dose:1mlRoute:IMSite:l arm Given By:LATANYA signed Leticia Pugh DO, Leticia B 12 Injection, 1000 mcg On: 06-Nov-2016 Intent (J3420)By: Lexy ISAACS, Comments: lot: [id number]: 8/18site/route: L del/IMamt: 1mLVIS signed when applicableChelsea, CUSHION COVER INSPECTOR Leticia Lexy DO, Leticia B 12 Injection, 1000 mcg On: 23-Oct-2016 Intent (J3420)By: Visit, Nurse Comments: [id number] Dltd, IMmlong, comfort advisor B 12 Injection, 1000 mcg On: 08-Oct-2016 Intent (J3420)By: Lexy ISAACS, Comments: lot: [id number]: 818site/route: L del/IMamt: 1mLVIS signed when applicableChelsea, CUSHION COVER INSPECTOR Leticia Lexy DO, Leticia B 12 Injection, 1000 mcg On: 17-Sep-2016 Intent (J3420)By: Visit, Nurse Comments: see flowsheet 1ml givenKM, CUSHION COVER INSPECTOR B 12 Injection, 1000 mcg On: 04-Sep-2016 Intent (J3420)By: Lexy ISAACS, Comments: lot: [id number]: 18site/route: R del/IMamt: 1mLVIS signed when applicableMegan, RESIDENT BUYER Leticia Lexy DO, Leticia B 12 Injection, 1000 mcg On: 24-Aug-2016 Intent (J3420)By: Lexy ISAACS, Comments: Lot:[id number]:11/23Dose:1mlRoute:IMSite:l armGiven By:LATANYA signed Leticia Pugh DO, Leticia B 12 Injection, 1000 mcg On: 19-May-2016 Intent (J3420)By: Christoph CHOPRA Tanvi Comments: Lot:[id number]:09/2017Dose:1mlRoute:IMSite:l armGiven By:LATANYA signed E Wax CurettesBy: Christoph CHOPRA, On: 19-May-2016 Intent Shey Ear Irrigation ([id number])By: On: 19-May-2016 Intent Tanvi Hawthorne CNP E B 12 Injection, 1000 mcg On: 08-Apr-2016 Intent (J3420)By: Lexy ISAACS, Comments: Lot:615Exp:06/23Dose:1mlRoute:IMSite:l arm Given By:LATANYA signed Leticia Lexy DO, Leticia B 12 Injection, 1000 mcg On: 20-Mar-2016 Intent (J3420)By: Lexy ISAACS, Comments: lot: [id number]: ite/route: L del/IMamt: 1mLVIS signed when applicableGaillsCRISTINO mike Leticia Lexy DO, Leticia B 12 Injection, 1000 mcg On: 05-Mar-2016 Intent (J3420)By: Lexy ISAACS, Comments: B12lot:6202exp:ite:rt deltroute:imdose:1mlD.JEANMARIE Ray Leticia Lexy DO, Leticia Radiology - Chest- PA and On: 24-Feb-2016 Intent LatBy: Lexy DO, Leticia Lexy DO, Leticia B 12 Injection, 1000 mcg On: 29-Jan-2016 Intent (J3420)By: Lexy ISAACS, Comments: B12lot:6185exp:ite:rt deltroute:IMdose:1mlD.JEANMARIE Ray Leticia Lexy DO, Leticia B 12 Injection, 1000 mcg On: 17-Jan-2016 Intent (J3420)By: Lexy ISAACS, Comments: Lot:[id number]:06/23Dose:1mlRoute:IMSite:l armGiven By:LATANYA signed Leticia Lexy DO, Leticia B 12 Injection, 1000 mcg On: 19-Dec-2015 Intent (J3420)By: Lexy ISAACS, Comments: [id number] lot# exp4/18 left deltiod Leticia Lexy DO, Leticia CAT SCAN OF ABDOMEN On: 12-Dec-2015 Intent ([id number])By: Lexy DO, Leticia Lexy DO, Leticia B 12 Injection, 1000 mcg On: 06-Dec-2015 Intent (J3420)By: Lexy ISAACS, Comments: B12lot:6185exp:ite:lt deltroute:IMdose:1mlD.JEANMARIE Ray Leticia Lexy DO, Leticia Rocephin Injection, 2 Gram On: 04-Dec-2015 Intent (J0696)By: Tammy Ortez DO Comments: lot: [id number]: 03/08/18site/route: RGM and LGM/IMamt: 2GVIS signed when applicableChelsea, CUSHION COVER INSPECTOR A B 12 Injection, 1000 mcg On: 25-Nov-2015 Intent (J3420)By: Lexy ISAACS, Comments: Lot:615Exp:06/23Dose:1mlRoute:IMSite:l armGiven By:MLVIS signed Leticia Pugh DO Leticia B 12 Injection, 1000 mcg On: 08-Nov-2015 Intent (J3420)By: Lexy ISAACS, Comments: 1000 mcglot 96466/18left dltdIMas, RESIDENT BUYER Leticia Pugh DO, Leticia B 12 Injection, 1000 mcg On: 22-Oct-2015 Intent (J3420)By: Visit, Nurse Comments: 40347/181mlLdltdML, RESIDENT BUYER B 12 Injection, 1000 mcg On: 03-Oct-2015 Intent (J3420)By: Henri Ray Comments: B12lot:6155exp:ite:rt deltroute:IMdose:1mlD.JEANMARIE Ray B 12 Injection, 1000 mcg On: 20-Sep-2015 Intent (J3420)By: Patito VIDALES, Comments: Lot:[id number]:07/23Dose:1mlRoute:IMSite:l armGiven By:JKMVIS signed Danika M B 12 Injection, 1000 mcg On: 05-Sep-2015 Intent (J3420)By: Lexy ISAACS, Comments: B12lot:5200exp:07/22site:rt glutroute:imdose:1mlD.JEANMARIE Ray DO, Leticia TD VACCINE ADULT On: 04-Apr-2015 Intent ([id number])By: Henri Ray TDAP VACCINE >7 IM On: 04-Apr-2015 Intent ([id number])By: Henri Ray Comments: Tdaplot:DW6QRewn:01/24/17site:lt deltoidroute:ImJEANMARIE Richardson B 12 Injection, 1000 mcg On: 04-Apr-2015 Intent (J3420)By: Henri Ray Comments: B12lot:5310exp:11/22site: rt deltroute:CIfwnl0xzMBINAL, MA B 12 Injection, 1000 mcg On: 25-Feb-2015 Intent (J3420)By: Henri Ray Comments: B12lot:[id number]:06/22site: rt delroute:IMdose:1mlDESHA B 12 Injection, 1000 mcg On: 28-Jan-2015 Intent (J3420)By: Lexy ISAACS, Comments: Lot:[id number]:06/22Dose:1mlRoute:IMSite:l armGiven By JETHRO signed Leticia Lexy DO, Leticia B 12 Injection, 1000 mcg On: 01-Jan-2015 Intent (J3420)By: Lexy ISAACS, Comments: Lot:[id number]:06/22Dose:1mlRoute:IMSite:l armGiven By:LATANYA signed Leticia Lexy DO, Leticia B 12 Injection, 1000 mcg On: 03-Dec-2014 Intent (J3420)By: Lexy ISAACS, Comments: lot: [id number]: 05/22site/route: L del/IMamt: 0.5mLVIS signed when applicableChelsea, CUSHION COVER INSPECTOR Leticia Lexy DO, Leticia B 12 Injection, 1000 mcg On: 13-Sep-2014 Intent (J3420)By: Lexy ISAACS, Comments: Lot:[id number]:11.16Route:IMSite:R deltoidDose: 1 mLgiven by: Altagracia Dumas CMA Leticia Lexy DO, Leticia B 12 Injection, 1000 mcg On: 05-Sep-2014 Intent (J3420)By: Lexy ISAACS, Comments: Lot:[id number]:3.16Route:IMSite:R deltoidDose: 1 mLgiven by: Altagracia Dumas CMA Leticia Lexy DO, Leticia EKG ([id number])By: Lexy ISAACS, On: 05-Sep-2014 Intent Leticia Pugh DO, Comments: nsr no acute chg Leticia B 12 Injection, 1000 mcg On: 10-Aug-2014 Intent (J3420)By: Lexy ISAACS, Comments: Lot:[id number]:05/21Dose:1mlRoute:IMSite:l armGiven By:LarryKMVIS signed Leticia Lexy DO, Leticia B 12 Injection, 1000 mcg On: 09-Jul-2014 Intent (J3420)By: Lexy ISAACS, Comments: lot [id number] 05/21location [facility] - msmith VIS and/or ABN signed [...] (J3420)By: Lexy ISAACS, Comments: given in R dltd, Allie Leticia Lexy DO, Leticia B 12 Injection, 1000 mcg On: 17-May-2014 Intent (J3420)By: Visit, Nurse Comments: [id number] Dltd, IMMegan, LPN1ml MRI - Brain (IV Contrast On: 15-May-2014 Intent Needed)By: Lexy DO Leticia Lexy DO, Leticia MRI - Cervical SpineBy: On: 15-May-2014 Intent Lexy DO, Leticia Lexy DO, Leticia Radiology - Cervical On: 11-Apr-2014 Intent SpineBy: Lexy DO, Leticia Lexy DO, Leticia Radiology - ChestBy: Ciesa On: 29-Jan-2014 Intent Tanvi CHOPRA UGI (With air contrast if On: 29-Jan-2014 Intent necessary)By: Tanvi Hawthorne CNP Stress Echo with On: 29-Jan-2014 Intent TreadmillBy: CiTanvi mayfield CNP Echo CompleteBy: Ciesa On: 29-Jan-2014 Intent Tanvi CHOPRA EKG (31800)By: Lexy DO, On: 30-Nov-2013 Intent Leticia Lexy DO, Comments: nsr no acute chg Leticia SPECIMEN On: 20-Nov-2013 Intent HANDLING/TRANSPORT (20718)By: Christoph CHOPRA, Shey PNEUM VAC ADLT/IMUMNOSPR, On: 24-Nov-2012 Intent SBC/INTRM (79730)By: Comments: lot: [id number]: 09/24/13site/route: L deltoid/IMamt: 0.5mLVIS signed when applicableChelsea, CUSHION COVER INSPECTOR Lexy DO, Leticia Lexy DO, Leticia Ultrasound - ThyroidBy: On: 24-Nov-2012 Intent Lexy DO, Leticia Lexy DO, Leticia IMMUNIZ ADMNIN, 1 VAC, On: 24-Nov-2012 Intent SNGL/COMBO (10404)By: Lexy DO, Leticia Lexy DO, Lteicia Eprescribed prescriptions On: 24-Nov-2012 Intent (G8553)By: Carmela Chery EKG (85075)By: Shalini, On: 15-Aug-2012 Intent Yennifer NAZARIO Comments: nsr no acute chg Eprescribed prescriptions On: 15-Aug-2012 Intent (G8553)By: Yennifer Loya LPN Eprescribed prescriptions On: 16-May-2012 Intent (G8553)By: Lexy DO, Leticia Lexy DO, Leticia Eprescribed prescriptions On: 15-Feb-2012 Intent (G8553)By: Yennifer Loya LPN EKG ([id number])By: Lexy DO, On: 24-Sep-2011 Intent Leticia Lexy DO, Comments: nsr no acute chg Leticia Radiology - Lumbar On: 24-Sep-2011 Intent SpineBy: Lexy DO, Leticia Lexy DO, Leticia SPECIMEN On: 27-Jan-2011 Intent HANDLING/TRANSPORT ([id number])By: Enid Hart LPN VAC, SPLIT, >3 YEARS, On: 17-Dec-2010 Intent INTRAMUSC ([id number])By: Comments: pt refused Lexy DO, Leticia Lexy DO, Leticia Radiology - Knee - On: 29-Sep-2010 Intent RightBy: Lexy DO, Leticia Lexy DO, Leticia Radiology - Knee - LeftBy: On: 29-Sep-2010 Intent Lexy ISAACS, Leticia Reza DO Eprescribed prescriptions On: 29-Sep-2010 Intent (G8553)By: Leticia Pugh DO, DO, Kathleen Doppler Ultrasound On: 15-Sep-2010 Intent OtherBy: Lexy ISAACS, Comments: both legs-- calf pain and one calf bigger than other Leticia Reza DO Nuclear Medicine - HIDA On: 29-May-2010 Intent w/CPKBy: Louie RN, Dori Comments: hida with cck Ultrasound - On: 19-May-2010 Intent GallbladderBy: Leticia Pugh DO, DO, Kathleen Nuclear Medicine - On: 27-Aug-2008 Intent ThyroidBy: Christoph CHOPRA, Shey CT - ChestBy: Patito VIDALES, On: 07-Aug-2008 Intent Danika Baer Comments: ATTENTION SUPRACLAAVICULAR AREA MRI - Shoulder(s) - On: 31-May-2008 Intent RightBy: Leticia Pugh DO, DO, Kathleen Radiology - Shoulder - On: 14-May-2008 Intent RightBy: Leticia Pugh DO, DO, Kathleen EKG ([id number])By: Lexy ISAACS, On: 18-May-2007 Intent Leticia Pugh DO, Comments: NSR NO ACUTE ISCHEMIC CHANGES Leticia Planned Medications INJECTION, CEFTRIAXONE SODIUM, PER 250 MG Ordered: 04-Dec-2015 Pending Pérez DO, Tammy A INJECTION, KETOROLAC TROMETHAMINE, PER 15 MG Ordered: 21-May-2017 Pending Leticia Pugh DO, DO, Kathleen INJECTION, KETOROLAC TROMETHAMINE, PER 15 MG Ordered: 28-May-2017 Pending Visit, Nurse Vitamin B-12 1000 MCG/ML Injection Solution Ordered: 17-May-2014 Pending Visit, Nurse Vitamin B-12 1000 MCG/ML Injection Solution Ordered: 04-Dec-2016 Pending Leticia Pugh DO, DO, Kathleen Vitamin B-12 1000 MCG/ML Injection Solution Ordered: 18-Dec-2016 Pending Leticia Pugh DO, DO, Kathleen Vitamin B-12 1000 MCG/ML Injection Solution Ordered: 01-Jan-2017 Pending Lexy DO, Leticia Lexy DO, Leticia Vitamin B-12 1000 MCG/ML Injection Solution Ordered: 18-Jan-2017 Pending Lexy DO, Leticia Lexy DO, Leticia Vitamin B-12 1000 MCG/ML Injection Solution Ordered: 15-Feb-2017 Pending Christoph CHOPRA Tanvi Mary Vitamin B-12 1000 MCG/ML Injection Solution Ordered: 04-Mar-2017 Pending Lexy DO, Leticia Lexy DO, Leticia Vitamin B-12 1000 MCG/ML Injection Solution Ordered: 18-Mar-2017 Pending Lexy DO, Leticia Lexy DO, Leticia Vitamin B-12 1000 MCG/ML Injection Solution Ordered: 01-Apr-2017 Pending Lexy DO, Leticia Lexy DO, Leticia Vitamin B-12 1000 MCG/ML Injection Solution Ordered: 16-Apr-2017 Pavaning Yamilex Duffy Vitamin B-12 1000 MCG/ML Injection Solution Ordered: 29-Apr-2017 Pending Lexy DO, Leticia Lexy DO, Leticia Vitamin B-12 1000 MCG/ML Injection Solution Ordered: 13-May-2017 Pending Visit, Nurse Vitamin B-12 1000 MCG/ML Injection Solution Ordered: 20-Nov-2016 Pending Lexy DO, Leticia Lexy DO, Leticia [...] MCG/ML Injection Solution Ordered: 15-Nov-2017 Pending Lexy DO, Leticia Lexy DO, Leticia Vitamin B-12 1000 MCG/ML Injection Solution Ordered: 26-Nov-2017 Pending Tammy Shaw Vitamin B-12 1000 MCG/ML Injection Solution Ordered: 09-Dec-2017 Pending Lexy DO, Leticia Lexy DO, Leticia Vitamin B-12 1000 MCG/ML Injection Solution Ordered: 05-Jan-2018 Pending Lexy DO, Leticia Lexy DO, Leticia Vitamin B-12 1000 MCG/ML Injection Solution Ordered: 11-Jun-2017 Pending Tanvi Hawthorne CNP Vitamin B-12 1000 [...] MCG/ML Injection Solution Ordered: 25-Feb-2015 Pending Emick, Morrill Vitamin B-12 1000 MCG/ML Injection Solution Ordered: 04-Apr-2015 Pending Emick, Morrill Vitamin B-12 1000 MCG/ML Injection Solution Ordered: 05-Sep-2015 Pending Lexy DO, Leticia Lexy DO, Leticia Vitamin B-12 1000 MCG/ML Injection Solution Ordered: 20-Sep-2015 Pending Danika Caputo MD Vitamin B-12 1000 MCG/ML Injection Solution Ordered: 03-Oct-2015 Pending Emick, Henri Vitamin B-12 1000 MCG/ML Injection Solution Ordered: [...] 1000 MCG/ML Injection Solution Ordered: 04-Sep-2016 Pending Lexy DO, Leticia Lexy DO, Leticia Vitamin B-12 1000 MCG/ML Injection Solution Ordered: 17-Sep-2016 Pending Nurse Ginna Vitamin B-12 1000 MCG/ML Injection Solution Ordered: 24-Jan-2018 Pending Tammy Shaw Vitamin B-12 1000 MCG/ML Injection Solution Ordered: 04-Feb-2018 Pending Tammy Shaw Instructions Name Dates Details Nonsmoker : How [...] Advance Directives Name Dates Details Immunization Registry [place] - Effective on Effective: 17-Nov-201711/17/2017. Expiration date unspecified Encounters Office Visit On: 04-Feb-2018 12:03 Encounter Reason: Injections - The medication the patient is here to receive is vitamin B12 IM.Encounter Diagnosis: Vitamin B12 deficiency (non anemic) End: 04-Feb-2018 13:26 [facility] Office Visit On: 24-Jan-2018 11:30 Encounter Reason: Injections - The medication the patient is here to receive is vitamin B12 IM.Encounter Diagnosis: Vitamin B deficiency End: 25-Jan-2018 9:27 [facility] Phone Encounter On: 24-Jan-2018 11:15 Encounter Diagnosis: Vitamin B deficiency End: 24-Jan-2018 11:23 [facility] Office Visit On: 05-Jan-2018 10:54 Encounter Reason: Injections - The medication the patient is here to receive is vitamin B12 IM.Encounter Diagnosis: Vitamin B deficiency End: 05-Jan-2018 13:15 [facility] Office Visit On: 09-Dec-2017 11:25 Encounter Reason: [...] swollen and painful.). Note for Urinary problems: [facility] had urine negEncounter Diagnosis: BMI 32.0-32.9,adult, Urethritis, [...] for Tdap vaccination (Renamed from Need for zneebmjsaj-hmlojlk-unqjjjsrd (Tdap) vaccine, adult/adolescent) End: 04-Apr-2015 15:25 [facility] [...] Encounter Reason: Follow up tests - Date: (09-15-10 labs)., [ADDITIONAL REASON] Follow up Meds - [...]
--- OUTSIDE RECORDS SUMMARY | 2018-04-04 15:54 | XMS RPT_ITS | Continuity of Care Document ---
:1955 Author Organization [facility] Address [address] [facility] [address] [place] [address] Phone Care Team Providers Name Role Phone Leticia Pugh DO Unavailable Sangeetha ULLOA MD, Larry Powell Unavailable Jack Mayen MD Unavailable Jessica Cristobal Unavailable Sadiq Greer Unavailable Long BUSINESS COMPUTERS TEACHER, Allie L Unavailable Unavailable Tammy Shaw Unavailable Unavailable Princess Kitchen Unavailable Unavailable Unavailable [...] neg - pt will go back to art supervisor for hormonal reasonsnot low bs when ck in middle of nite-- depending what traditional art supervisor says maybe consider saliva testingwith recent abd [...] 388.30) Comments: [facility] ?? tinnitis clinic at [facility] >pt to look into - Status: [...] days Quantity: 30 {Tablet} Refills: 3 Ordered:13-Dec-2014 hSari Pugh DO, DO, Kathleen Start : 13-Dec-2014 [...] DO, DO, Kathleen Start : 19-Aug-2016 Active MACHINE OPERATOR HOP WORKER Thyroid 30 MG Oral Tablet 1 (one) Tablet Tablet daily as directed for 0 days Quantity: 30 {Tablet} Refills: 5 Ordered:13-May-2017 Shrai Pugh DO, DO, Kathleen Start : 04-Mar-2017 Active Pen [place] 31G X 6 MM Miscellaneous 1 Misc [...] {Pre-filled_Pen_Syringe} Refills: 3 Ordered:23-Jul-2016 Long Allie NAZARIO Start : 23-Jul-2016 Active Victoza 18 MG/3ML Subcutaneous Solution Pen-injector 1.8 Milligram qd sc for 0 days Quantity: 3 {Pre-filled_Pen_Syringe} Refills: 3 Ordered:13-Sep-2017 Shari Pguh DO, DO, Kathleen Start : 13-Sep-2017 Active [...] days Quantity: 30 {Tablet} Refills: 0 Ordered:15-Feb-2012 Yenniefr Loya LPN Start : 17-Dec-2010 End : [...] : 17-Nov-2010 End : 17-Dec-2010 Inactive DRISDOL, 23389XVFD (Oral Capsule) 1 Capsule 2 xweek for [...] 09-Oct-2011 End : 14-Oct-2011 Inactive Comments:twenty ZOSTAVAX, 91644YCK/0.65ML (Subcutaneous Solution Reconstituted) 1 For Solution x1 [...] days Quantity: 60 {Capsule} Refills: 3 Ordered:15-Mar-2015 Tanvi Hawthorne CNP Start : 13-Dec-2014 End : 15-Mar-2015 Discontinued Comments:per Dr Delio ESCUDEROMBALTA, 60MG (Oral Capsule Delayed Release Particles) [address] Part qd for 0 days Quantity: 30 {Capsule_DR_Part} Refills: 0 Ordered:17-Nov-2010 Shari Pugh DO, DO, Kathleen Start : 17-Nov-2010 End : 17-Nov-2010 Discontinued Comments:diarrhea ERGOCALCIFEROL, 46569URLD (Oral Capsule) 1 (one) Capsule q week [...] days Quantity: 60 {Capsule} Refills: 0 Ordered:23-Oct-2014 Slarb Maia NAZARIO Start : 11-Apr-2014 End : 23-Oct-2014 Discontinued [...] for Tdap vaccination (Renamed from Need for gkdexbkdbo-bojyuiy-ipmywghsa (Tdap) vaccine, adult/adolescent) (Z23, V06.1) Status: Inactive [...] w/ Contrast Result: Comments: See Note; NOTES: [facility] Cardiovascular Services [address] [place] [address] Stress Test Echo W/Contrast MR#: [id number] Acct: [id number] Name: RADHA RAMOS Rep #: [id number] : 1955 62 From: Marcus Sánchez MD Primary Care: Leticia Pugh DO Status: REG CLI Ordering Dr: Larry Ngo MACHINE OPERATOR HOP WORKER-C Sex: F C Stress Results Protocol: Stress [...] 1521 Date Marcus Sánchez MD CC: DEMETRICE Ngo; Leticia Pugh DO Date Dictated: 12/14/17 1343 Date Transcribed: 12/14/17 1521 Medical Logistics Specialist: Signed 10-Dec-2017 PT D/C Summary (1) Result: Comments: See Note; NOTES: [facility] Physical Therapy [place] [address] [place] [address] Fax [facility]#: [id number] Acct: [id number] Name: RADHA RAMOS Rep #: [id number] [...] aston. PALAPTION: unremarkable. NEURO: denies parathesia/tingling,reflexes L3-4,L4-5 2/3. MMT: 5/5. LUMBAR ROM: flexion WNL ,exte nsion MIN loss,side glides min loss. -SLR - Goals Goal 1:: Patient to be Independant with HEP Goal Progress: Goal Met Goal 2:: Patient to be Independant with posture/body mechanics to decrease back kathairne n Goal Progress: Goal Met Goal 3:: [...] please feel free to call me at [phone]. T elton you for the referral of this patient. Sincerely, Morgan Barnes PT, <Electronically signed by Morgan Barnes PT, Cert. T, [facility]> 12/10/17 0758 CC: Leticia Pugh DO; Gloria KNAPP Presh JOSSELINE Signed 07-Dec-2017 Cardiology Visit Report Result: Comments: See Note; NOTES: [place] [facility] [address] [place] [address] OFFICE VISIT Date of Service: 12/07/17 MR#: [id number] Acct: [id number] Name: RADHA RAMOS Rep #: [id number] : 1955 Provider: DEMETRICE Ngo Age/Sex: 62/F Location: [facility] Status: Signed HPI HPI Details: RADHA RAMOS, [...] 12/07/17 0958 <Electronically signed by Larry Ngo NP-C> Date Larry Ngo MACHINE OPERATOR HOP WORKER-C Cosigner Signature: Date (if applicable) CC: eLticia Pugh DO 07-Dec-2017 12 Lead EKG performed by [facility] Result: Comments: See Note; NOTES: [facility] [address] [facility] [address] [place] [address] 12 Lead EKG performed by [facility] 12/07/17910 MR#: [id number] Acct: [id number] Name: RADHA RAMOS Rep #: [id number] : 1955 62 From: Larry SPEARC Attending Dr: Larry Ngo, MACHINE OPERATOR HOP WORKER Status: DEP AMB Ordering Dr: Larry NgoC Date: 12/07/17 Location: [facility] Sex: F C Admitted: ORD ER #: [id number] [facility]/12 Lead EKG performed by [facility] 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 - Nonspecific T-abnormality. BNORMAL 12/07/17 1257 <Electronically signed by Larry Ngo MACHINE OPERATOR HOP WORKER-C&amp ;#62; Date Larry KNAPP CC: Leticia Pugh DO Date Dictated: 12/07/17910 Date Transcribed: 12/07/17910 Medical Logistics Specialist: ISABEL Signed 07-Dec-2017 12 Lead EKG performed by [facility] Result: Comments: See Note; NOTES: [facility] [address] [place] [address] 12 Lead EKG performed by [facility] 12/07/17910 MR#: [id number] Acct: [id number] Name: RADHA RAMOS Rep #: [id number] : 1955 62 From: Larry KNAPP Attending Dr: Larry Ngo NP Status: DEP AMB Ordering Dr: Larry Ngo Date: 12/07/17 Location: [facility] Sex: F C Admitted: ORD ER #: [id number] [facility]/12 Lead EKG performed by [facility] ECG Report Interpretation Sinus Rhythm Poor R wave progressionElectronically signed on 12/08/2017 at 17:44 by Marcus Sánchez Software Version 8610 12/08/17 1746 Date Larry KNAPP CC: Leticia Pugh DO Date Dictated: 12/07/17910 Date Transcribed: 12/07/17910 Medical Logistics Specialist: ISABEL Signed 28-Oct-2017 Inital Evaluation (1) - PT Result: Comments: See Note; NOTES: [facility] Physical Therapy [address] [place], [place] [address] Fax REHABILITATION SERVICES INITIAL EVALUATION MR#: [id number] Acct: [id number] Name: RADHA RAMOS Rep #: [id number] [...] Date of Evaluation: 10/27/17 Physical Therapist: Morgan Barnes PT, - Visit Plan Frequency: 2x /Week [...] : No effect Lumbar Standing: Right Side [place] - Symptoms During Testing: Increases Lumbar Standing: Right Side [place] - Symptoms After Testing: No worse Lumbar Standing: Left Side [place] - Mechanical Resp onse: No effect Lumbar Standing: Left Side [place] - Symptoms During Testing: Increases Lumbar Standing: Left Side [place] - Symptoms After Testing: No worse Lumbar [...] to be FAXED BACK to us at [phone] for Medicare purposes. Please let me know [...] Downtime Report Result: Comments: See Note; NOTES: [facility] Medical Records Department [address] [place] [address] Downtime Report MR#: [id number] Acct: [id number] Name: RADHA RAMOS Rep #: [id number] : 1955 61 From: Herrera Hennessy PCP: Leticia Pugh DO Status: REG CLI This patient was seen during an EMR downtime August 09, 2017 - August 16, 2017. This patient may have a combination of paper and electronic documentation or all paper documentation. All documentation is viewable within the e-chart portion of [employer] for each patient visit. 21-Jul-2017 L/S Spine Min 4 Views Result: Comments: See Note; NOTES: [facility] Imaging Services [address] [place] [address] L/S Spine Min 4 Views MR#: [id number] Acct: [id number] Name: RADHA RAMOS Rep #: [id number] : 1955 F 61 From: Durga Peñaloza MD PCP: Leticia Pugh DO Status: REG CLI Study: L/S Spine Min 4 Views Date of Exam: 07/21/17 Exam# [id number] Ordering Dr: Joey Greer MD STUDY: X [...] , CC: Joey Greer; Leticia Pugh DO Medical Logistics Specialist: Signed 25-Jun-2017 Cardiology Visit Report Result: Comments: See Note; NOTES: [facility] [address] [place] [address] OFFICE VISIT Date of Service: 06/24/17 MR#: [id number] Acct: [id number] Name: RADHA RAMOS Rep #: [id number] : 1955 Provider: Nimco Vasquez Age/Sex: 61/F Location: [facility] Status: Signed HPI HPI Details: RADHA RAMOS, [...] Pressure 138/82 Intake Visit Reasons: 6 M Breeder Hen Service Technician Required: No Accompanied by: none Is patient [...] More Views Result: Comments: See Note; NOTES: [facility] Imaging Services [address] [place] [address] S-I Jts 3 or More Views MR#: [id number] Acct: [id number] Name: RADHA RAMOS Rep #: [id number] : 1955 F 61 From: Frederick Pemberton MD PCP: Leticia Pugh DO Status: REG CLI Study: S-I Jts 3 or More Views Date of Exam: 05/21/17 Exam# [id number] Ordering Dr: Leticia Pugh DO STUD Y: [...] Service support , CC: Leticia Pugh DO Medical Logistics Specialist: Signed 17-Mar-2017 Abdomen/Pelvis without Cont Result: Comments: See Note; NOTES: [facility] Imaging Services [address] [place] [address] Abdomen/Pelvis without Cont MR#: [id number] Acct: [id number] Name: RADHA RAMOS Rep #: [id number] : 1955 F 61 From: Rahel Salazar MD PCP: Leticia Pugh DO Status: REG CLI Study: Abdomen/Pelvis without Cont Date of Exam: 03/17/17 Exam# [id number] Ordering Dr: Casimiro Saravia MD STUDY: CT [...] at 16:04 EST Tel , Service support , CC: Casimiro Saravia MD; Leticia Pugh DO Medical Logistics Specialist: Signed 15-Feb-2017 Toe(s) Min 2 Views Result: Comments: See Note; NOTES: [facility] Imaging Services [address] [place] [address] Toe(s) Min 2 Views MR#: [id number] Acct: [id number] Name: RADHA RAMOS Rep #: [id number] : 1955 F 61 From: Juan Henriquez MD PCP: Leticia Pugh DO Status: REG CLI Study: Toe(s) Min 2 Views Date of Exam: 02/15/17 Exam# [id number] Ordering Dr: Tanvi Hawthorne STUDY: X-RAY LEFT [...] , Service support , CC: Tanvi Hawthorne MACHINE OPERATOR HOP WORKER; Leticia Pugh DO Medical Logistics Specialist: Signed 22-Dec-2016 Stress Test Echo w/o Contrast Result: Comments: See Note; NOTES: [facility] Cardiovascular Services [address] [place] [address] Stress Test Echo w/o Contrast MR#: [id number] Acct: [id number] Name: RADHA RAMOS Rep #: [id number] : 1955 61 From: Marcus Sánchez MD [...] Physician: Marcus Sánchez MD Performed By: Millie Torrez, KATIA, RVT 12/22/16 1704 Date Marcus Sánchez MD CC: Leticia Pugh DO; Marcus Sánchez MD Date Dictated: 12/22/16 1307 Date Transcribed: 12/22/16 170 Medical Logistics Specialist: Signed 19-Nov-2016 12 Lead Electrocardiogram Result: Comments: See Note; NOTES: [facility] Cardiovascular Services [address] [place] [address] 12 Lead EKG 11/14/16156 MR#: [id number] Acct: [id number] Name: RADHA RMAOS Rep #: [id number] : 1955 61 From: Guevara Casanova MD [...] by SAMANTHA LI MD, GUEVARA ([id number]), editor book JUNE HENNESSY (57) on 11/16/2016 1:29:52 PM Referred By: GAL Confirmed By:GUEVARA CASANOVA MD 11/16/16 1329 Date Guevara Casanova MD CC: Leticia Pugh DO Date Dictated: 11/14/16156 Date Transcribed: 11/14/16156 Medical Logistics Specialist: Signed 14-Nov-2016 Discharge Instruction Result: Comments: See Note; NOTES: [facility] Medical Records Department [address] [place] [address] Discharge Instruction 11/14/16 0345 MR#: [id number] Acct: [id number] Name: JEANMARIE RAMOS Rep #: [id number] : 1955 61 From: Roscoe Diaz MD [...] your Primary Care Provider. Call [facility] ([phone]) or report to the closest Emergency Room. Call 911 if necessary. 11/14/16 0637 <Electronically signed by Roscoe Diaz MD> Date Roscoe Maher Cosigner Signature (If Indicated): Date CC: Leticia Pugh DO 14-Nov-2016 Emergency Department Summary Result: Comments: See Note; NOTES: [facility] Medical Records Department [address] [place] [address] Emergency Department Summary 11/14/16 0343 MR#: [id number] Acct: [id number] Name: RADHA RAMOS Rep #: [id number] : 1955 61 From: Roscoe Diaz MD [...] your Primary Care Provider. Call [facility] ([phone]) or report to the closest Emergency Room. Call 911 if necessary. 11/14/16 0636 <Electronically kristin d by Roscoe Diaz MD> Date Roscoe Diaz MD Cosigner Signature (If Indicated): Date CC: Leticia Pugh 14-Nov-2016 Chest 1 View (Portable) Result: Comments: See Note; NOTES: [facility] Imaging Services [address] [place] [address] Chest 1 View (Portable) MR#: [id number] Acct: [id number] Name: RADHA RAMOS Rep #: [id number] : 1955 F 61 From: Nelson Coronado PCP: Leticia Pugh DO Status: REG ER Study: Chest 1 View (Portable) Date of Exam: 11/14/16 Exam# [id number] Ordering Dr: Roscoe Diaz MD STUDY: X- [...] CC: Leticia Pugh DO; Roscoe Diaz MD Medical Logistics Specialist: Signed 13-Nov-2016 US Thyroid Biopsy Result: Comments: See Note; NOTES: [facility] Imaging Services [address] [place] [address] US Thyroid Biopsy MR#: [id number] Acct: [id number] Name: RADHA RAMOS Rep #: [id number] D OB: 1955 F 61 From: Ross Saxena MD PCP: Leticia Pugh DO Status: REG CLI Study: US Thyroid Biopsy Date of Exam: 11/13/16 Exam# [id number] Ordering Dr: James Casey MD STUDY: THYROID [...] Ross Saxena MD at 12:24 EDT Tel [phone], Service support , CC: James Casey MD; Leticia Pugh DO Medical Logistics Specialist: Signed 24-Sep-2016 Thyroid Result: Comments: See Note; NOTES: [facility] Imaging Services [address] [place] [address] Verdana 4d Thyroid MR#: [id number] Acct: [id number] Name: RADHA RAMOS Rep #: [id number] : 1955 F 60 From: Kalpana Sharp MD PCP: Leticia Pugh DO Status: REG CLI Study: Thyroid Date of Exam: 09/24/16 Exam# [id number] Ordering Dr: eLty Ball MACHINE OPERATOR HOP WORKER-C STUDY: THYROID ULTRASOUND REASON FOR EXAM: Female, [...] , Service support , CC: Lety Ball MACHINE OPERATOR HOP WORKER; Leticia Pugh DO Medical Logistics Specialist: Signed 11-Aug-2016 SCREENING MAMM (CAD), BILAT Result: Comments: See Note; NOTES: [facility] Imaging Services [address] [place] [address] Verdana 4d SCREENING MAMM (CAD), BILAT MR#: [id number] Acct: [id number] Name: RADHA RAMOS Rep #: [id number] : 1955 F 60 From: Ross Saxena MD PCP: Leticia Pugh DO Status: [facility] Study: SCREENING MAMM (CAD), BILAT Date of Exam: 08/11/16 Exam# [id number] Ordering Dr: Zhane Martinez MD MAMMOGRAPHY - [...] delay biopsy of a clinically suspicious abnormality. [id number] Electronically Signed: Ross Saxena MD at 13:32 EDT Tel [phone], Service support , CC: Zhane Angeles MD; Leticia Pugh DO Medical Logistics Specialist: Signed 17-Jul-2016 Upper GI w/BA Swallow Result: Comments: See Note; NOTES: [facility] Imaging Services [address] [place] [address] Verdana 4d Upper GI w/BA Swallow MR#: [id number] Acct: [id number] Name: RADHA ARMOS Rep #: [id number] : 1955 F 60 From: Coreen Mata MD PCP: Leticia Pugh DO Status: REG CLI Study: Upper GI w/BA Swallow Date of Exam: 07/17/16 Exam# [id number] Ordering Dr: James Garrido MD CLINICAL HISTORY: [...] , CC: Leticia Pugh DO; James Garrido Medical Logistics Specialist: Signed 27-Feb-2016 Chest PA and Lateral Result: Comments: See Note; NOTES: [facility] Imaging Services [address] [place] [address] Verda 4d Chest PA and Lateral MR#: [id number] Acct: [id number] Name: RADHA RAMOS Rep #: [id number] : 1955 F 60 From: Segun Loomis MD PCP: Leticia Pugh DO Status: REG CLI Study: Chest PA and Lateral Date of Exam: 02/27/16 Exam# [id number] Ordering Dr: Leticia Pugh DO STUD Y: [...] at 15:10 EST Tel , Service support [phone], CC: Leticia Pugh DO Medical Logistics Specialist: Signed 24-Feb-2016 W[facility]al C[facility] Progress Note Result: Comments: See Note; NOTES: [facility] [address] [place] [address] [facility] Progress Note 02/24/16 1305 MR#: [id number] Acct: [id number] Name: Keyur RAMOS Rep #: [id number] : 1955 60 From: Ruslan Sesay MD [...] mellitus macular edema: D Lisa betes mellitus half-way insulin use: with half-way use Laterality: L Chronic kidney disease stage: C Qualified Code(s): E11.9 - Type 2 diabetes mellitus without complications; Z79.4 - FPC (curre nt) use of insulin Code(s): E11.9 [...] Date Recorded By Document 02/24/16 12:35 CHRIS [id number] 02/24/16 12:38 CHRIS 02/24/16 12:35 Wound Center [...] Date Recorded By Document 02/24/16 12:38 CHRIS [id number] 02/24/16 12:39 CHRIS 02/24/16 12:38 Wound Center [...] after Cleansing No -Bioengineered Tissue No -Cetacaine [place] No -Bleedin g Controlled with NA -Treatment [...] Recorded Date Recorded By Document 02/24/16 12:38 [facility] 993 02/24/16 12:39 CHRIS 02/24/16 12:38 Wound Center Nurse 2 1-abdomen [...] ter Cleansing No -Bioengineered Tissue No -Cetacaine [place] No -Bleeding Controlled with NA -Treatment Response [...] MD> Date Ruslan Sesay MD CC: Signed 5-Dec-2016 [facility] Progress Note Result: Comments: See Note; NOTES: [facility] [address] [place] [address] [facility]al [facility] Progress Note 02/10/16 1325 MR#: [id number] Acct: [id number] Name: Keyur RAMOS Rep #: [id number] : 1955 60 From: Ruslan Sesay MD [...] mellitus macular edema: D Diab etes mellitus entry level buyer insulin use: with entry level buyer use Laterality: L Chronic kidney disease stage: C Qualified Code(s): E11.9 - Type 2 diabetes mellitus without complications; Z79.4 - patent leather sorter (curren t) use of insulin Code(s): E11.9 [...] Pulse Ox 97.6 F 96 18 155/87 02/10/16 13:01 02/10/16 13:01 02/10/16 13:01 02/10/16 13:01 [...] Date Recorded By Document 02/10/16 13:01 DL [id number] 02/10/16 13:07 DL 02/10/16 13:01 Wound Center Nurse 1 [Ulcer Assessment] 1-abdomen -Current Size (cm) - Length 0 -Current Size (cm) - Width 0 -Current Size (cm) - Depth 0 -Total Square Cm 0 -Photo Take n Yes -Exudate Amt None Present (0 %) -Wound Margin Flat AND Intact -Granulation Amt Large (67-100%) -Granulation Quality [place] -Necrosis Amt None Present (0 %) -Structure [...] Date Recorded By Document 02/10/16 13:15 MW [id number] 02/10/16 13:17 MW 02/10/16 13:15 Wound Center Nurse 2 [P rocedure/Treatment] -Time 13:16 -Correct Patient Yes -Correct Side, Site, Position Yes -Correct Procedure Yes -Procedure Performed No -Wound/Ulcer Outcome Not Healed -Ulcer Cleansing Not Cleansed -Foul Odor after Cleansing No -Bioengineered Tissue No -Cetacaine [place] No -Topical Lidocaine (%) 4 -Lidocaine (ml) [...] Date Recorded By Document 02/10/16 13:15 MW [id number] 02/10/16 13:17 MW 02/10/16 13:15 Wound Center Nurse 2 1-abdomen -Time 13:16 - Correct Patient Yes -Correct Side, Site, Posi tion Yes -Correct Procedure Yes -Procedure Performed No -Wound/Ulcer Outcome Not Healed -Ulcer Cleansing Not Cleansed -Foul Odor after Cleansing No - Bioengineered Tissue No -Cetacaine [place] No -Topical Lidocaine (%) 4 -Lidocaine (ml) [...] Progress Note Result: Comments: See Note; NOTES: [facility] [place] [address] W[facility]al C[facility] Progress Note 02/03/16 1336 MR#: [id number] Acct: [id number] Name: Keyur RAMOS Rep #: [id number] : 1955 60 From: Ruslan Sesay MD [...] Diabetes mellitus macular edema: D Diabetes mellitus entry level buyer insulin use: with half-way use Latera lity: L Chronic kidney disease [...] Recorded Date Recorded By Document 13:02 DL [id number] 02/03/16 13:09 DL 02/03/16 13:02 Wound Center Nurse 1 [Ulcer Assessment] 1-abdomen -Current Size (cm) - Length 0.5 -Current Size (cm) - Width 2.4 -Current Size (cm) - Depth 0.3 -Tota l Square Cm 1.20 -Photo Taken No -Exudate Amt Small (1-33%) -Exudate Type Serosanguineous -Wound Margin Distinct, Outline Attached -Granulation Amt Large (67-100%) - Granulation Quality [place] -Necrosis Am t Small (1-33%) -Necrotic Tissue [...] Date Recorded By Document 02/03/16 13:28 CHRIS [id number] 02/03/16 13:32 CHRIS 02/03/16 13:28 Wound Center [...] Cleansing No -Bioengi neered Tissue No -Cetacaine [place] No -Topical Lidocaine (%) 4 -Lidocaine (ml) [...] Date Recorded By Document 02/03/16 13:28 CHRIS [id number] 02/03/16 13:32 JS 02/03/16 13:28 Wound Center Nurse 2 1-abdomen [...] after Cleansing No -Bioengineered Tissue No -Cetacaine [place] No -Topical Lidocaine (%) 4 -Lidocaine (ml) [...] Progress Note Result: Comments: See Note; NOTES: [facility] [address] [facility] [place] [address] [facility] Progress Note 01/27/16 1333 MR#: [id number] Acct: [id number] Name: Keyur RAMOS Rep #: [id number] : 1955 60 From: Ruslan Sesay MD [...] Diabetes mellitus macular edema: D Diabetes mellitus entry level buyer insulin use: with half-way use Laterali ty: L Chronic kidney disease [...] Recorded Date Recorded By Document 01/27/16 12:44 [id number] 01/27/16 12:54 01/27/16 12:44 Wound Center Nurse [...] Date Recorded By Document 01/27/16 13:23 MW [id number] 01/27/16 13:31 MW 01/27/16 13:23 Wound Center Nurse 2 [Procedure/Treatment] 1-abdomen -Time 13 :24 -Correct Patient Yes -Correct Side, Site, Position Yes -Correct Procedure Yes -Procedure Performed No -Wound/Ulcer Outcome Not Healed -Ulcer Cleansing Rinsed/ Irrigated with Saline -Foul Odor after Cleansing No -Bioengineered Tissue No -Cetacaine [place] No -Bleeding Controlled with NA [See Physician [...] Date Recorded By Document 01/27/16 13:23 MW [id number] 01/27/16 1 3:31 MW 01/27/16 13:23 Wound Center Nurse 2 1-abdomen -Time 13:24 -Correct Patient Yes -Correct Side, Site, Position Yes -Correct Procedure Yes -Procedure Performed No -Wound/Ulcer Outcome Not Healed - Ulcer Cleansing Rinsed/ Irrigated with Saline -Foul Odor after Cleansing No -Bioengineered Tissue No -Cetacaine [place] No -Bleeding Controlled with NA No debridement [...] Progress Note Result: Comments: See Note; NOTES: [facility] [address] [place] [address] [facility] Progress Note 01/20/16 1521 MR#: [id number] Acct: [id number] Name: RADHA RAMOS Rep #: [id number] : 1955 60 From: Ruslan Sesay MD [...] Diabetes mellitus complication status: without complication Diabetes [facility] half-way insulin use: with entry level buyer use Qualifier Code : (E11.9) Type 2 [...] Record ed By Document 01/20/16 14:33 DL [id number] 01/20/16 14:36 DL 01/20/16 14:33 Wound Center [...] Recorded Date Recorded By Document 01/20/16 15:06 [id number] 01/20/16 15:07 01/20/16 15:06 Wound Center Nurse 2 [Procedure/Treatment] -Time 15:06 -Correct Patient Yes -Correct Side, Site, Position Yes -Correct Procedure Yes -Procedure Performed No -Wound/Ulcer Outcome Not Healed -Ulcer Cleansing Rinsed/ Irrigated with Saline -Foul Odor after Cleansing No -Bioengineered Tissue No - Cetacaine [place] No [See Physician Procedure note for Specifics] [...] Recorded Date Recorded By Document 01/20/16 15:06 [id number] 01/20/16 15:07 01/20/16 15:06 Wound Center Nurse 2 1-abdomen -Time 15:06 - Correct Patient Yes -Correct Side, Site, Po sition Yes -Correct Procedure Yes -Procedure Performed No -Wound/Ulcer Outcome Not Healed -Ulcer Cleansing Rinsed/ Irrigated with Saline -Foul Odor after Cleansing No -Bioengineered Tissue No -Cetacaine [place] No No debridement was completed today Assessment/Plan [...] Progress Note Result: Comments: See Note; NOTES: [facility] [address] [place] [address] [facility] Progress Note 01/06/16 1307 MR#: [id number] Acct: [id number] Name: RADHA RAMOS Rep #: [id number] : 1955 60 From: Ruslan Sesay MD PCP: Leticia Pugh DO Status: REG RCR Y Location: WC (1) Abscess of abdominal wall Status: Acute Current Visit: Yes Code: L02.2 11 (2) Diabetes mellitus Status: Chronic Current Visit: Yes Qualifiers: Diabetes mellitus type: type 2 Diabetes mellitus complication status: with skin complications Diabetes mellitus complication deta il: with other skin complication Diabetes mellitus half-way insulin use: with half-way use Qualifier Code: (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 Progress [...] rashes, No breakdown Wound Measurements and Assessment - Nurse 1 - General Ulcer Measurement Start: 12/23/15 12:46 Freq: Status: Active Activity Type Activity Date Activity User E-Sign Co-Sign Detail Recorded Client Recorded Date Recorded By Document 01/06/16 12:42 TM [id number] 01/06/16 12:51 01/06/16 12:42 Wound Center Nurse 1 [Ulcer [...] Date Recorded By Document 01/06/16 12:54 DV [id number] 01/06/16 13:00 DV 01/06/16 12:54 Wound Center Nurse 2 [Procedure/Treatment] -Time 12:59 -Correct Patient Yes -Correct Side, Site, Position Yes -Correct Procedure Yes -Procedure Performed No -Wound/Ulcer Outcome Not Healed -Ulcer Cleansing Rinsed/ Irrigated with Saline -Foul Odor after Cleansing No -Bioengineered Tissue No -Cetacaine [place] No -Bleeding Controlled with NA -Treatment Response [...] Date Recorded By Document 01/06/16 12:54 DV [id number] 01/06/16 13:00 DV 01/06/16 12:54 Wound Center Nurse 2 1-abdomen -Time 12:59 -Correct Patient Yes -Correct Side, Site, Position Yes -Tamar ect Procedure Yes -Procedure Performed No -Wound/Ulcer Outcome Not Healed -Ulcer Cleansing Rinsed/ Irrigated with Saline -Foul Odor after Cleansing No - Bioengineered Tissue No -Cetacaine [place] No -Bleed ing Controlled with NA -Treatment Response Procedure Tolerated Well No debridement was completed today Assessment/Plan Active Problems Abscess of abdominal wall (Acute) Wound, open, abdominal wall, anterior (Acute) Diabetes mellitus (Chronic) Assessment: This is a 60-year-old diabetic female who is in her normal state of health until approximately 3 weeks prior to presentation, at [facility] time she developed an abscess [...] Progress Note Result: Comments: See Note; NOTES: [facility] [address] [place] [address] Wound Heal Ctr Progress Note 12/30/15 1625 MR#: [id number] Acct: [id number] Name: RADHA RAMOS Rep #: [id number] : 1955 60 From: Ruslan Sesay MD PCP: Leticia Pugh DO Status: REG RCR Y Location: WC (1) Abscess of abdominal wall Status: Acute Current Visit: Yes Code: L02.2 11 (2) Diabetes mellitus Status: Chronic Current Visit: Yes Qualifiers: Diabetes mellitus type: type 2 Diabetes mellitus complication status: with skin complications Diabetes mellitus complication deta il: with other skin complication Diabetes mellitus half-way insulin use: with half-way use Qualifier Code: (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 Progress of [...] Date Recorded By Document 6 14:19 TM [id number] 12/30/15 14:37 TM 12/30/15 14:19 Wound Center [...] Thickened -Granulation Amt Small (1-33%) -Granulation Quality [place] Red -Slough/Fibrin Yes -Necro sis Amt Small [...] Recorded Date Recorded By Document 12/30/15 16:21 [id number] 12/30/15 16:22 JS 12/30/15 16:21 Wound Center Nurse 2 [P rocedure/Treatment] 1-abdomen -Time 16:21 -Correct Patient Yes -Correct Side, Site, Position Yes -Correct Procedure Yes -Procedure Performed No -Wound/Ulcer Outcome Not Healed -Ulcer Cleansing Rinsed/ I rrigated with Saline -Foul Odor after Cleansing No -Bioengineered Tissue No -Cetacaine [place] No -Bleeding Controlled with NA -Treatment Response [...] Recorded Date Recorded By Document 12/30/15 16:21 [id number] 12/30/15 16:22 12/30/15 16:21 Wound Center Nurse 2 1-abdomen -Time 16:21 -Correct Patient Yes -Correct Side, Site, Position Yes -Correct Procedure Yes -Procedure Performed No -Wound/Ulcer Outcome Not Healed -Ulcer Cleansing Rinsed/ Irrigated with Saline -Foul Odor after Cleansing No -Bioengi neered Tissue No -Cetacaine [place] No -Bleeding Controlled with NA -Treatment Response [...] AND Physical Result: Comments: See Note; NOTES: [facility] [address] [place] [address] Wound Ctr History AND Physical 12/23/15 1708 MR#: [id number] Acct: [id number] Name: RADHA TERRY Rep #: [id number] : 1955 60 From: Ruslan Sesay MD PCP: Leticia Pugh DO Status: REG RCR Y Location: WC (1) Abscess of abdominal wall Status: Acute Current Visit: Yes Code: L02 .211 (2) Diabetes mellitus Status: Chronic Current Visit: Yes Qualifiers: Diabetes mellitus type: type 2 Diabetes mellitus complication status: with skin complications Diabetes mellitus complication de tail: with other skin complication Diabetes mellitus half-way insulin use: with half-way use Qualifier Code: (E11.628) Type 2 diabetes [...] tumor. 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 Lives: Spouse/ Significant Other Smoking Status: [...] Recorded Date Recorded By Document 12/23/15 15:16 [id number] 12/23/15 15:38 12/23/15 15:16 Wound Center Nurse [...] Recorded Date Recorded By Document 12/23/15 16:42 [id number] 12/23/15 16:44 JS 12/23/15 16: 42 Wound Center Nurse 2 [Procedure/Treatment] 1-abdomen -Time 16:42 -Correct Patient Yes -Correct Side, Site, Position Yes -Correct Procedure Yes -Wound/Ulcer Outcome Not Healed -Ulcer Cleansing Rinsed / Irrigated with Saline -Foul Odor after Cleansing No -Bioengineered Tissue No -Cetacaine [place] No -Bleeding Controlled with NA -Treatment Response [...] Recorded Date Recorded By Document 12/23/15 16:42 [id number] 12/23/15 16:44 12/23/15 16:42 Wound Center Nurse 2 1-abdomen -Time 16:42 -Correct Patie nt Yes -Correct Side, Site, Position Yes -Correct Procedure Yes -Wound/Ulcer Outcome Not Healed -Ulcer Cleansing Rinsed/ Irrigated with Saline -Foul Odor after Cleansing No -Bioengineered Tissue No -Cet acaine [place] No -Bleeding Controlled with NA -Treatment Response [...] WITH Contrast Result: Comments: See Note; NOTES: [facility] Imaging Services [address] [place] [address] Verdana 4d Abdomen/Pelvis WITH Contrast MR#: [id number] Acct: [id number] Name: MILO RAMOS Rep #: [id number] : 1955 F 60 From: Jack Hernandez MD PCP: Leticia Pugh DO Status: REG CLI Study: Abdomen/Pelvis WITH Contrast Date of Exam: 12/12/15 Exam# [id number] Ordering Dr: Leticia Pugh DO STUDY: CT [...] MD at 17:46 EDT , Service support , CC: Leticia Pugh DO Medical Logistics Specialist: Signed 25-Oct-2015 Chest WITH Contrast Result: Comments: See Note; NOTES: [facility] Imaging Services [address] [place] [address] Verdana 4d Chest WITH Contrast MR#: [id number] Acct: [id number] Name: RADHA RAMOS Rep #: [id number] : 1955 F 60 From: Emerson Centeno MD PCP: Leticia Pugh DO Status: REG CLI Study: Chest WITH Contrast Date of Exam: 10/25/15 Exam# [id number] Ordering Dr: Marcus Sánchez MD [facility] DY: CT CHEST WITH CONTRAST REASON FOR [...] MD at 21:00 EDT , Service support [phone], CC: Leticia Pugh DO; Marcus Sánchez MD Medical Logistics Specialist: Signed 05-Sep-2015 ELECTROCARDIOGRAM, COMPLETE (ECG) ([id number]) Comments: nsr no acute chg Result: [MEASUREMENTS ANALYSIS] Date of Test: 09/05/2015 14:41:33; Heart Rate: 82; GA Interval: 152; QRS: 100; QT Interval: 366; Corrected QT Interval (QTc): 404; P [place]: 62; QRS [place]: 42; T [place] : 23; Blood Pressure: 122/82 [ECG DIAGNOSTIC STATEMENTS] Date of Test: 09/05/2015 14:41:33; Summary: Sinus Rhythm WITHIN NORMAL LIMITS 08-Aug-2015 Bilat Scrn Digital AND CAD Result: Comments: See Note; NOTES: [facility] Imaging Services [address] [place] [address] Verdana 4d Bilat Scrn Digital AND CAD MR#: [id number] Acct: [id number] Name: RADHA RAMOS Rep #: [id number] : 1955 F 59 From: Ross Saxena MD PCP: Leticia Pugh DO Status: REG CLI Study: Bilat Scrn Digital AND CAD Date of Exam: 08/08/15 Exam# [id number] [facility] Dr: Zhane Angeles MD MAMMOGRAPHY - BILATERAL [...] will be sent to the patient by [facility] facility within 30 days. Approximately 10% of breast cancers are not detected by mammography. A normal mammogram should not delay biopsy of a clinically suspicious abnormality. [id number] Electron ically Signed: Ross Saexna MD at 10:53 EDT Tel [phone], Service support [phone], CC: Zhane Angeles MD; Leticia Pugh DO Medical Logistics Specialist: Signed 15-Mar-2015 ELECTROCARDIOGRAM, COMPLETE (ECG) ([id number]) Result: [MEASUREMENTS ANALYSIS] Date of Test: 03/15/2015 11:59:12; Heart Rate: 78; GA Interval: 126; QRS: 100; QT Interval: 380; Corrected QT Interval (QTc): 411; P [place]: 39; QRS [place]: 44; T [place] : 27; Blood Pressure: 126/82 [ECG DIAGNOSTIC STATEMENTS] Date of Test: 03/15/2015 11:59:12; Summary: Sinus Rhythm WITHIN NORMAL LIMITS 13-Feb-2015 PT D/C of Non Returning Pt. Result: Comments: See Note; NOTES: [facility] [place] [address] Fax REHABILITATION SE RVICES DISCHARGE SUMMARY MR#: [id number] Acct: [id number] Name: RADHA RAMOS Rep #: [id number] : 1955 59 From: Morgan Barnes Referring [...] - PT Result: Comments: See Note; NOTES: [facility] Physical [facility] [place] [id number] Fax REHABILITATION SERVICES INITIAL EVALUATION MR#: [id number] Acct: [id number] Name: RADHA RAMOS Rep #: [id number] : 1955 59 From: Morgan Barnes Referring Dr.: Joey Kebede DPM Status: REG R Insurance: [employer] [facility] Date: DATE OF SERVICE: 11/29/2014 PHYSICIAN: Joey Kebede DPM. SUBJECTIVE: This patient by the name of Radha Ramos who was born on 1955 was referred to physica therapy with diagnosis of medical complexity issue [...] cuff repair. VOCATION: The patient works at [employer]. OBJECTIVE: OBSERVATION OF POSTURE: The patient has [...] as proprioception exercises. Morgan Barnes, PT T: ADIS JOB: [id number] <Electronically signed by Morgan Barnes > 12/05/14 1319 CC: Signed For Medicare only, by signing this I certify the plan of care. Physicians Signature Date 28-Sep-2014 Discharge Instruction Result: Comments: See Note; NOTES: [facility] Medical Records Department [address] [place] [address] Instructions for Home/Discharge Instructions 09/28/14 1826 MR#: [id number] ct: [id number] Name: RADHA RAMOS Rep #: [id number] : 1955 58 From: Joey Kebede DPM PCP: Leticia Pugh DO Status: REG [facility] Discharge Diet: Light diet - advance as [...] 3 Views Result: Comments: See Note; NOTES: [facility] Imaging Services [address] [place], [place] [id number] Radiology Report MR#: [id number] Acct: [id number] Name: RADHA RAMOS Rep #: [id number] : 1955 F 58 From: Rohit Zamarripa MD PCP: Leticia Pugh DO Status: [facility] Study: Foot min 3 Views Date of Exam: 09/28/14 Exam# [id number] Ordering Dr: Joey Kebede DPM STUDY: X-RAY [...] FACR at 20:28 EDT , Service support [phone], RAD/Foot min 3 Views IMPRESSION: Status post osteotomy of the posterior pr ocess of the calcaneus and stabilization with a cannulated screw. Alignment is anatomical and no immediate post surgical complications are seen. Cast is in place. Electronically Signed: Rohit laird MD, FACR at 20:28 EDT , Service support [phone], CC: Joey Kebede DPM; Leticia Pugh DO Medical Logistics Specialist: Signed 28-Sep-2014 Calcaneus min 2 Views Result: Comments: See Note; NOTES: [facility] Imaging Services [address] [place] [address] Radiology Report MR#: [id number] Acct: [id number] Name: RADHA RAMOS Rep #: [id number] : 1955 F 58 From: Rohit Zamarripa MD PCP: Leticia Pugh DO Status: [facility] Study: Calcaneus min 2 Views Date of Exam: 09/28/14 Exam# [id number] Ordering Dr: Joey Kebede DPM Mindy MURPHY: [...] FACR at 20:32 EDT , Service support [phone], RAD/Calcaneus min 2 Views IMPRESSION: Status Post osteotomy of the posterior process of the calcaneus and stabilization with a cannulated screw. Alignment is anatomical and no immediate post surgical complications are seen. Electronically Signed: Rohit Zamarripa MD, FACR at 20:32 EDT , Service support [phone], CC: Joey Kebede DPM; Leticia Pugh DO Medical Logistics Specialist: Signed 27-Aug-2014 Lower Ext Joint Only (Routine) Result: Comments: See Note; NOTES: [facility] Imaging Services [address] [facility] [place] [address] MRI Report MR#: [id number] Acct: [id number] Name: RADHA RAMOS Rep #: [id number] : 1955 F 58 From: Rohit Zamarripa MD PCP: Leticia Pugh DO Status: REG CLI Study: Lower Ext Joint Only (Routine) Date of Exam: 08/27/14 Exam# [id number] Ordering Dr: Joey Kebede DPM STUDY: MRI [...] FACR at 17:00 EDT , Service support [phone], Fax CC: Joey Kebede MD; Leticia Pugh DO Medical Logistics Specialist: Signed 27-Aug-2014 Lower Ext Joint Only (Routine) Result: Comments: See Note; NOTES: [facility] Imaging Services [address] [place] [address] MRI Report MR#: [id number] Acct: [id number] Name: RADHA RAMOS Rep #: [id number] : 1955 F 58 From: Rohit Zamarripa MD PCP: Leticia Pugh DO Status: REG CLI Study: Lower Ext Joint Only (Routine) Date of Exam: 08/27/14 Exam# [id number] Ordering Dr: Joey Kebede DPM ADDENDUM by [...] FACR at 14:08 EDT , Service support [phone], 09/17/14 1408 Date cc: Joey Kebede DPM; Leticia Lexy DO * Signed STUDY: MRI LEFT ANKLE [...] at 17:00 EDT , Service suppor t [phone], CC: Joey Kebede DPM; Leticia Pugh DO Medical Logistics Specialist: Signed 03-Aug-2014 Bilat Scrn Digital AND CAD Result: Comments: See Note; NOTES: [facility] Imaging Services [address] [place] [address] Breast Imaging Report MR#: [id number] Acct: [id number] Name: RADHA RAMOS Rep #: [id number] : 1955 F 58 From: Ross Saxena MD PCP: Leticia Pugh DO Status: REG CLI Study: Faviola Vincent Digital AND CAD Date of Exam: 08/03/14 Exam# [id number] Ordering Dr: Lelo Angeles MD MAMMOGRAPHY - [...] [facility]. Approximately 10% of breast cancers are not detected by mammography. A normal mammogram should not delay biopsy of a clinically suspicious abnormality. Electronically Kristin d: Ross Saxena MD at 13:16 EDT Tel [phone], Service support [phone], CC: Zhane Angeles MD; Leticia Pugh DO Medical Logistics Specialist: Signed 03-Aug-2014 Bilat Scrn Digital AND CAD Result: Comments: See Note; NOTES: [facility] Imaging Services [address] [address] Breast Imaging Report MR#: [id number] Acct: [id number] Name: RADHA RAMOS Rep #: [id number] : 1955 F 58 From: Ross Saxena MD PCP: Leticia Pugh DO Status: REG CLI Study: Bilat Scrpatricia Digital AND CAD Date of Exam: 08/03/14 Exam# [id number] Ordering Dr: Lelo Angeles MD MAMMOGRAPHY - [...] be sent to the patient by the [facility] within 30 days. Approximately 10% of breast cancers are not detected by mammography. A normal mammogram should not delay biopsy of a clinically suspicious abnormality. Electronically Kristin d: Ross Saxena MD at 13:16 EDT Tel [phone], Service support [phone], CC: Zhane Angeles MD; Leticia Pugh DO Medical Logistics Specialist: Signed 03-Aug-2014 Bilat Scrn Digital AND CAD Result: Comments: See Note; NOTES: [facility] Imaging Services [address] [place] [address] Breast Imaging Report MR#: [id number] Acct: [id number] Name: RADHA RAMOS Rep #: [id number] : 1955 F 58 From: Ross Saxena MD PCP: Leticia Pugh DO Status: REG CLI Study: Bilhaley Vincent Digital AND CAD Date of Exam: 08/03/14 Exam# [id number] Ordering Dr: Lelo Angeles MD MAMMOGRAPHY - [...] be sent to the patient by the [facility] within 30 days. Approximately 10% of breast cancers are not detected by mammography. A normal mammogram should not delay biopsy of a clinically suspicious abnormality. Electronically Kristin d: Ross Saxena MD at 13:16 EDT Tel [phone], Service support [phone], CC: Zhane Angeles MD; Leticia Pugh DO Medical Logistics Specialist: Signed 05-Jul-2014 PT Discharge Summary Result: Comments: See Note; NOTES: [facility] [address] [place] [address]. [address] [place] [address] Fax REHABILITATION SERVICES DISCHARGE SUMMARY MR#: [id number] Acct: [id number] Name: RADHA RAMOS Rep #: [id number] : 1955 58 From: Morgan Barnes Referring [...] this referral. Sincerely, Morgan Barnes, PT T: ADIS JOB: [id number] <Electronically signed by Morgan Barnes > 07/05/14 1429 CC: Signed 18-May-2014 Brain W/WO Contrast Result: Comments: See Note; NOTES: [facility] Imaging Services [address] [place] [address] MRI Report MR#: [id number] Acct: [id number] Name: RADHA RAMOS Rep #: [id number] D OB: 1955 F 58 From: Yolanda Vitale MD PCP: Leticia Pugh DO Status: REG CLI Study: Brain W/WO Contrast Date of Exam: 05/18/14 Exam# [id number] Ordering Dr: Leticia Pugh DO STUDY: MRI [...] MD at 17:10 EDT , Service support [phone], CC: Leticia Pugh DO Medical Logistics Specialist: Signed 18-May-2014 Spine Cervical (Routine) Result: Comments: See Note; NOTES: [facility] Imaging Services [address] [place] [address] MRI Report MR#: [id number] Acct: [id number] Name: RADHA RAMOS Harsh Rep #: [id number] D OB: 1955 F 58 From: Yolanda Vitale MD PCP: Leticia Pugh DO Status: REG CLI Study: Spine Cervical (Routine) Date of Exam: 05/18/14 Exam# [id number] Ordering Dr: Leticia Pugh DO STUDY: MRI [...] at 22 :30 EDT , Service support [phone], CC: Leticia Pugh DO Medical Logistics Specialist: Signed 20-Apr-2014 Inital Evaluation - PT Result: Comments: See Note; NOTES: [facility] Physical Therapy [address] [place] [address] Fax REHABILITATION SERVICES INITIAL EVALUATION MR#: [id number] Acct: [id number] Name: RADHA RAMOS Rep #: [id number] : 1955 58 From: Morgan Barnes Referring : Leticia Pugh DO Status: REG R Insurance: A [employer] [facility] Date: DATE OF SERVICE: 04/17/2014 REFERRING PHYSICIAN: [...] therapy. Most recently, [facility], which consist ed of manipulations with some [...] pain. SOCIAL HISTORY: . VOCATION: Works at [employer]. Goals to get rid of pain. OBJECTIVE: [...] for deltoid, biceps, triceps, wrist flexor, extensors. 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 Negative ANR. MOVEMENT LOSS: Protrusion minimal loss with pain end range; flexion min-to- moderate loss; retraction, extension minimal loss; side bending to the right minimal loss; side bend to left is ldu-zc-auqjidie loss; rotation to the right minimal loss; rotation to the left is fgy-iz-fbarmhly loss. Repeated motion, right neck pain. Protrusion, [...] education. Morgan Barnes, PT T: NTS JOB: [id number] <Electronically signed by Morgan Barnes > 04/20/14 0856 CC: Signed For Medicare only, by signing this I certify the plan of care. Physicians Signature Date 11-Apr-2014 Cerv Spine 4 or 5 Views Result: Comments: See Note; NOTES: [facility] Imaging Services [address] [facility] [place] [address] Radiology Report MR#: [id number] Acct: [id number] Name: RADHA RAMOS Rep #: [id number] : 1955 F 58 From: Sofia Gamble MD PCP: Leticia Pugh DO Status: REG CLI Study: Cerv Spine 4 or 5 Views Date of Exam: 04/11/14 Exam# [id number] Ordering Dr: Leticia Pugh: X-RAY - CERVICAL [...] MD at 16:35 EST , Service support [phone], RAD/Cerv Spine 4 or 5 Vie ws IMPRESSION: Normal x-ray examination of the visualized cervical spine. Electronically Signed: Sofia Gamble MD at 16:35 EST , Service support [phone], CC: Leticia Pugh DO Medical Logistics Specialist: Signed 30-Mar-2014 Esophagus Only Result: Comments: See Note; NOTES: [facility] Imaging Services [address] [place] [address] Radiology Report MR#: [id number] Acct: [id number] Name: RADHA RAMOS Rep #: [id number] : 1955 F 58 From: Ross Saxena MD PCP: Leticia Pugh DO Status: REG CLI Study: Esophagus Only Date of Exam: 03/30/14 Exam# [id number] Ordering Dr: James Garrido MD STUDY: X-RAY [...] Ross Saxena MD at 9:25 EST Tel [phone], Service support [phone], Fax CC: Leticia Pugh DO; James Garrido Medical Logistics Specialist: Signed 08-Feb-2014 Stress Test Echo w/o Contrast Result: Comments: See Note; NOTES: [facility] Cardiovascular Services [address] [place] [address] STRESS TEST REPORT 02/02/14 1143 MR#: [id number] Acct: [id number] Name: RADHA RAMOS Rep #: [id number] : 1955 58 From: Guevara Casanova MD [...] Date Dictate d: 02/02/14 1143 Date Transcribed: 02/05/14901 Medical Logistics Specialist: Signed 08-Feb-2014 Echocardiogram Complete Result: Comments: See Note; NOTES: [facility] Cardiovascular Services [address] [place] [address] STRESS TEST REPORT 02/02/14 1143 MR#: [id number] Acct: [id number] Name: RADHA RAMOS Rep #: [id number] : 1955 58 From: Guevara Casanova MD [...] Casanova MD Performed By: Amy Garza RDCS 02/05/1436 Date Guevara Casanova MD CC: Tanvi Hawthorne; Leticia Pugh DO Date Dictated: 02/02/14 1143 Date Transcribed: 02/05/14 0836 Medical Logistics Specialist: Signed 06-Feb-2014 Upper GI Series Only Result: Comments: See Note; NOTES: [facility] Imaging Services [address] [place] [address] Radiology Report MR#: [id number] Acct: [id number] Name: RADHA RAMOS Rep #: [id number] : 1955 F 58 From: Segun Loomis MD PCP: Leticia Pugh DO Status: REG CLI Study: Upper GI Series Only Date of Exam: 02/06/14 Exam# [id number] Ordering Dr: Tanvi Hawthorne CLINICAL HISTOR Y: [...] MD at 10:55 EST , Service support [phone], RAD/Upper GI Series Only IMPRESSION: Patient shows [...] 2013 at 10:55 EST , Service support [phone], CC: Tanvi Hawthorne; Leticia Pugh DO Medical Logistics Specialist: Signed 05-Feb-2014 Stress Test Echo w/o Contrast Result: Comments: See Note; NOTES: [facility] Cardiovascular Services [address] [place] [address] STRESS TEST REPORT 02/02/14 1143 MR#: [id number] Acct: [id number] Name: RADHA RAMOS Rep #: [id number] : 1955 58 From: Guevara Casanova MD [...] Dictated: 02/02/14 1143 Date Transcribed: 02/05/14 0836 Medical Logistics Specialist: Signed 02-Feb-2014 Chest PA and Lateral Result: Comments: See Note; NOTES: [facility] Imaging Services [address] [place] [address] Radiology Report MR#: [id number] Acct: [id number] Name: RADHA RAMOS Rep #: [id number] : 1955 F 58 From: Martell Price MD PCP: Leticia Pugh DO Status: REG CLI Study: Chest PA and Lateral Date of Exam: 02/02/14 Exam# [id number] Ordering Dr: Tanvi Hawthorne STUDY: X-RAY CHEST [...] at 14:11 EST Tel , Service support [phone], RAD/Chest PA and Lateral IMPRESSION: Normal x-ray examination of the chest. Electronically Signed: Martell Price MD 20/01/28 at 14:11 EST , Service support [phone], CC: Tanvi Casandratran; Leticia Pugh DO Medical Logistics Specialist: Signed 29-Jan-2014 ELECTROCARDIOGRAM, COMPLETE (ECG) ([id number]) Comments: sinus rhythm, similar to 11-19 Result: [MEASUREMENTS ANALYSIS] Date of Test: 01/29/2014 13:47:19; Heart Rate: 86; GA Interval: 136; QRS: 100; QT Interval: 368; Corrected QT Interval (QTc): 413; P [place]: 66; QRS [place]: 41; T [place] : -1; Blood Pressure: 132/74 [ECG DIAGNOSTIC STATEMENTS] Date of Test: 01/29/2014 13:47:19; Summary: Sinus Rhythm WITHIN NORMAL LIMITS 02-Aug-2013 Bilat Scrn Digital & CAD Result: Comments: See Note; NOTES: [facility] Services [address] [place] [address] Breast Imaging Report MR#: [id number] Acct: [id number] Name: RADHA RAMOS Rep #: [id number] : 1955 F 57 From: Ross Saxena MD PCP: Leticia Pugh DO Status: REG CLI Exam# [id number] Ordering Dr: Zhane Angeles MD MAMMOGRAPHY - [...] be sent to the patient by the [facility] within 30 days. Approximately 10% of breast cancers are not detected by mammography. A normal mammogram should not delay biopsy of a clinically suspicious abnormality. Electronically Signed: Thompson Saxena MD at 10:52 EDT Tel [phone], Service support [phone], CC: Zhane Angeles MD; Leticia Pugh DO Medical Logistics Specialist: Signed Immunization Name Dates Details Influenza (3 years and up) on: 2018 Social History Name Dates Details Caffeine Use [...] kg/m2 Body Surface Area Calculated 1.94 m2 76-Mul-290517:00 Temperature 98.2 f Comments: Method: Oral Pulse [...] kg/m2 Body Surface Area Calculated 1.89 m2 : Temperature 97.1 f Comments: Method: Oral Pulse [...] 0.00 cm Results Date Description Value Details 33-Qfc-922104:10 VITAMIN B-12 (CYANOCOBALAMIN) Comments: PATIENT NOT FASTINGPERFORMED BY: [facility] Cnxesy5717 [facility] [id number] ([id number]) Vitamin B12 723 pg/mL (Normal) Range: 232-1245 :54 BNP,B-Type NATRIURETIC PEPTIDE Comments: [facility] [address] [place], [address] B-TYPE CAMILO PEP 38.2 pg/mL (Normal) Range: 0-100 :54 Troponin-I Comments: 'TROP' Serial specimen #1, #2, #3, or #4: [facility] [address] [place], [address] TROPONIN-I < 0.015 ng/mL (Normal) Comments: TROPONIN-I EXPECTED VALUES <0.045 Negative 0.045 - 0.590 Consistent with Cardiac Damage > OR = 0.600 Critical Value Not every elevated troponin is indicative of HI. T hesevalues should be used with clinical judgement in examiningthe patient's clinical picture for diagnosis. To establisha diagnosis of HI versus myocardial injury, there must be ademonstrated rise and/ or fall in the troponin values, inaddition to ischemic symptoms, EKG changes, new regionalwall motion abnormality, and/or angiographical evidence. PLEASE NOTE: REFERENCE RANGES EDITED 17:58 Lipid Profile Comments: Order Date: 10/16/16Order Info: [id number] - *Hepatic Function PanelOrder Info: [id number] - *Lipid Profile CC PCPComments: 12 hours fasting, may have water.[facility] [address] [place], [place], [address] VLDL 35 mg/dL (Normal) Range: 5-40 LDL [...] Info: [id number] - *Hepatic Function PanelOrder Info: [id number] - *Lipid Profile CC PCPComments: 12 hours fasting, may have water.[facility] [address] [place], [id number] D BILI 0.07 mg/dL (Normal) Range: 0.00-0.30 T BILI 0.70 mg/dL (Normal) Range: 0.20-1.00 ALT 47 U/L (Normal) Range: 13-56 Comments: Please note revised ALT reference range /28/2018. ALK P 103 U/L (Normal) Range: 45-117 AST 30 U/L (Normal) Range: 15-37 GLOB 3.6 g/dL (Normal) Range: 2.2-4.2 ALB 4.0 g/dL (Normal) Range: 3.2-5.0 T PROT 7.6 g/dL (Normal) Range: 6.4-8.2 02-Zpk-458327:09 Free T3 Comments: [facility] [address] [place], [address] FREE T3 3.2 pg/mL (Normal) Range: 2.18-3.98 51-Pga-565502:09 T4 Free Direct Comments: [facility] [address] [place], [id number] T4 FREE DIRECT 0.84 ng/dL (Normal) Range: 0.76-1.46 34-Chl-204181:09 Thyroid Stim Hormone (TSH) Comments: [facility] [address] [place], [address] TSH 1.27 {uIU/mL} (Normal) Range: 0.358-3.74 28-Qfz-492787:04 VITAMIN B-12 (CYANOCOBALAMIN) Comments: PATIENT WAS FASTINGPERFORMED BY: [facility] Vodxuj0980 [facility] [id number] ([id number]) Vitamin B12 1049 pg/mL (Normal) Range: 232-1245 08-Jlu-619911:04 CALCIFEDIOL (41736) Comments: PATIENT WAS FASTINGPERFORMED BY: [facility] Xegyeh5605 [facility] [id number] Vitamin D, 25-Hydroxy 17.4 ng/mL (Abnormal) Range: 30.0-100.0 Comments: Vitamin D deficiency has been defined by the [place] of[place]icine and an Endocrine Society practice guideline as alevel of serum 25-OH vitamin D less than 20 ng/mL (1,2).The Endocrine Society went on to further define vitamin Dinsufficiency as a level between 21 and 29 ng/mL (2).1. IOM ([place] of [employer]). 2010. Dietary reference intakes for calcium and D. [place]: The National Academies Press.2. Catie MF, Karon ACEVEDO, Myron KESSLER, et al. Evaluation, treatment, and prevention of vitamin D deficiency: an Endocrine Society clinical practice guideline. JCEM. 2010; 96(7):1911-30. 74-Qgs-060871:08 URINE SHANI CULTURE-IDENTIFICATN Comments: PATIENT NOT FASTINGPERFORMED BY: [employer] Yvybxa5291 [facility] [id number] ([id number]) Antimicrobial MIHEAD (Normal) Comments: S = Susceptible; [...] mL (Abnormal) Urine Final report Culture,Comprehensive (Abnormal) 63-Arg-942929:08 URINALYSIS (47583) Comments: PATIENT NOT FASTINGPERFORMED BY: [facility] Djvlti1939 [facility] [id number] Information: SRC:UC Microscopic Examination MICNIP (Normal) Comments: Microscopic not indicated and not performed. Nitrite, Urine Negative (Normal) Urobilinogen,Semi-Qn 0.2 mg/dL (Normal) Range: 0.2-1.0 Bilirubin Negative (Normal) Occult Blood Negative (Normal) Ketones Negative (Normal) Glucose Negative (Normal) Protein Negative (Normal) WBC Esterase Negative (Normal) Appearance Clear (Normal) Urine-Color Yellow (Normal) pH 5.0 (Normal) Range: 5.0-7.5 Specific [place] 1.021 (Normal) Range: 1.005-1.030 :11 Basic Metabolic Profile (BMP) Comments: 'TROP' Serial specimen #1, #2, #3, or #4: [address] [place] [address] [address] [place], [place], [id number] GAP 9 (Normal) Range: 5-15 CO2 24.0 [...] A.D.A. criteria. :11 CBC W/Diff, Automated Comments: [facility] [address] [place], [place], [address] Absolute Lymph 3.23 {X10_3/ul} (Normal) Range: 0.83-4.51 [...] Serial specimen #1, #2, #3, or #4: 1[facility] [address] [place], [address] TROPONIN-I < 0.02 ng/mL (Normal) Comments: TROPONIN-I EXPECTED VALUES <0.05 NEGATIVE 0.06 - 0.59 AT RISK OF HI > OR = 0.60 SUGGEST HI :00 ASP RADIOLOGY (FLUID) See Note (Normal) Comments: [facility] [address] [place], [place], [address] Comments: Patient: RADHA RAMOS : 1955 (61/F) Acct Num: [id number] Phys: Jacinto VIDALES,James Unit Num: [id number] Loc: Specimen: [id number] Received: 11/13/16 - 1243 [...] cytology study. / SVETLANA:brayden 11/13/16 TC:5 CPT: 07725, 49368, 881 72 CYTOLOGY STUDY Slides are reviewed. [...] Order Date: 09/21/16Order Info: [id number] - *[facility] [address] [place], [address] HGB A1C 6.3 % (Normal) Range: 4.2-6.3 99-Kqv-77925:57 Lipid Profile Comments: Order Date: 10/28/15Interface Comments: 12 hours fasting, may have water.[facility] [address] [place], [id number] VLDL 28 mg/dL (Normal) Range: 5-40 LDL [...] 200-240 mg/dL Borderline >240 mg/dL High Risk 48-Fla-81207:57 Liver Profile Comments: Order Date: 10/28/15Interface Comments: 12 hours fasting, may have water.[facility] [address] [place], [place], [address] D BILI 0.11 mg/dL (Normal) Range: 0.00-0.30 T BILI 0.60 mg/dL (Normal) Range: 0.20-1.00 ALT 34 U/L (Normal) Range: 12-78 ALK P 95 U/L (Normal) Range: 45-117 AST 21 U/L (Normal) Range: 15-37 GLOB 3.2 g/dL (Normal) Range: 2.3-3.5 ALB 4.1 g/dL (Normal) Range: 3.4-5.0 T PROT 7.3 g/dL (Normal) Range: 6.4-8.2 62-Wnt-024003:14 CBC W/Diff, Automated Comments: Order Date: 09/21/16Order Info: [id number] - *CBC with DifferentialComments: Reason:[facility] [address] [place], [place], [address] Absolute Lymph 2.69 {X10_3/ul} (Normal) Range: 0.83-4.51 [...] 4.2-5.4 WBC 7.3 K/mm3 (Normal) Range: 4.4-11.0 27-Zyu-600555:14 Thyroid Stim Hormone (TSH) Comments: Order Date: 09/21/16Order Info: [id number] - *TSHComments: Reason:[facility] [address] [place], [place], [address] TSH 1.64 {uIU/mL} (Normal) Range: 0.358-3.74 :55 HgA1C , Office (83227) HgA1C , Office 5.8 % (Normal) Range: 4.6 - 7.1 :55 Blood Glucose , Office (55972) Blood Glucose , Office 110 (Normal) 37-Sny-511730:19 THROAT CULTURE (80390) Comments: PATIENT NOT FASTINGPERFORMED BY: [facility]CoTr[place] 4625970 [place] [id number] Information: SRC:TH Result 1 RRF (Normal) Comments: Routine respiratory jaylyn Upper Respiratory Culture Final report (Normal) 74-Ibw-062691:42 LIPID PANEL (88682) Comments: PATIENT WAS FASTINGPERFORMED BY: Vel[facility] LabsGeneral Leonard Wood Army Community HospitalMzrqzq7238 [facility] [id number] LDL/HDL Ratio 3.4 {ratio_units} (Abnormal) Range: 0.0-3.2 Comments: LDL/HDL Ratio Men Women 1/2 Avg.Risk 1.0 1.5 Av g.Risk 3.6 3.2 2X Avg.Risk 6.2 5.0 3X Avg.Risk 8.0 6.1 LDL Cholesterol Calc 122 mg/dL (Abnormal) Range: 0-99 VLDL Cholesterol Leonel 34 mg/dL (Normal) Range: 5-40 HDL Cholesterol 36 mg/dL (Abnormal) Triglycerides 172 mg/dL (Abnormal) Range: 0-149 Cholesterol, Total 192 mg/dL (Normal) Range: 100-199 05-Cob-315045:42 CALCIFIDIOL (37470) VIT D 25 Comments: PATIENT WAS FASTINGPERFORMED BY: LabCoAtlantiCare [facility] Medical Center, [facility] CampusOefdiy1849 [facility] [id number]; will rview on 07/03 Vitamin D, 25-Hydroxy 23.3 ng/mL (Abnormal) Range: 30.0-100.0 Comments: Vitamin D deficiency has been defined by the [place] of[place]icine and an Endocrine Society practice guideline as alevel of serum 25-OH vitamin D less than 20 ng/mL (1,2).The Endocrine Society went on to further define vitamin Dinsufficiency as a level between 21 and 29 ng/mL (2).1. IOM ([place] of [employer]). 2010. Dietary reference intakes for calcium and D. [place]: The National Academies Press.2. Catie MF, Karon ACEVEDO, Myron KESSLER, et al. Evaluation, treatment, and prevention of vitamin D deficiency: an Endocrine Society clinical practice guideline. JCEM. 2010; 96(7):1911-30. 02-Jqx-997553:09 HgA1C , Office (34846) HgA1C , Office 6.0 % (Normal) Range: 4.6 - 7.1 37-Hrr-806922:09 Blood Glucose , Office (84178) Blood Glucose , Office 113 (Normal) 59-Ozz-068572:21 Microscopic Examination Comments: PATIENT WAS FASTINGPERFORMED BY: [facility]6370 [facility] [id number] Bacteria Few (Normal) Mucus Threads Present (Normal) Epithelial Cells (non renal) 0-10 {/hpf} (Normal) Range: 0 - 10 RBC 0-2 {/hpf} (Normal) Range: 0 - 2 WBC 0-5 {/hpf} (Normal) Range: 0 - 5 50-Xtu-821823:53 PPD (50499) Comments: lot: [id number]: 07/22site/route: L forearm/intradermalamt: 0.1mLVIS signed when applicableChelsea, INSPECTOR WATCH TRAIN SKIN TEST INTRADERMAL TB negative (Normal) :33 LDH (LD) (LACTATE DEHYDROGENASE) Comments: PATIENT NOT FASTINGPERFORMED BY: [facility]6370 [facility] [id number] (85152) LDH 174 [iU]/L (Normal) Range: 119-226 :33 SED RATE ERYTHROCYTE (15909) Comments: PATIENT NOT FASTINGPERFORMED BY: [facility]6370 [facility] [id number] Sedimentation Rate-Westergren 2 mm/h (Normal) Range: 0-40 :33 C-REACTIVE PROTEIN (87170) Comments: PATIENT NOT FASTINGPERFORMED BY: [facility]6370 [facility] [id number] C-Reactive Protein, Quant 1.8 mg/L (Normal) Range: 0.0-4.9 :33 TSH (68222) Comments: PATIENT NOT FASTINGPERFORMED BY: [facility]6370 [facility] [id number] TSH 2.710 {uIU/mL} (Normal) Range: 0.450-4.500 18-Zgm-261204:33 METABOLIC PANEL, COMPREHENSIVE Comments: PATIENT NOT FASTINGPERFORMED BY: [facility]6370 [facility] [id number] (61670) ALT (SGPT) 25 [iU]/L (Normal) Range: 0-32 [...] Glucose, Serum 83 mg/dL (Normal) Range: 65-99 97-Ywl-187093:33 CBC W/AUTO DIFF WBC (53840) Comments: PATIENT NOT FASTINGPERFORMED BY: [facility] Tyyuev5254 [facility] [id number] Immature Grans (Abs) 0.0 {x10E3/uL} (Normal) Range: [...] 3.77-5.28 WBC 7.4 {x10E3/uL} (Normal) Range: 3.4-10.8 82-Gib-67102:00 Culture, Deep Wound Comments: [address] [place], [place], [address] CUDW See Note (Normal) Comments: Comments: ABDOMINAL ABCESSGram StainGram Stain No White Blood Cells No organisms seen Wound CulturePossible skin contamination, further Identification and sensitivity will be performed only by physi taye's request. ORGANISM 1: Coag Negative StaphAmount Growth Very Rare Cult, AnaerobicNo anaerobic bacteria isolated. 23-Cta-942187:51 Albumin, Serum Comments: [address] [place], [place], [address] ALB 4.3 g/dL (Normal) Range: 3.4-5.0 75-Hzn-933969:51 Basic Metabolic Profile (BMP) Comments: [address] [place], [address] GAP 6 (Normal) Range: 5-15 CO2 26.0 [...] <126 mg/dLsuggests IMPAIRED HOMEOSTASIS per A.D.A. criteria. :51 CBC-Complete Blood Cnt No Diff Comments: [facility] [address] [place], [address] MPV 9.4 fL (Normal) Range: 6.2-12.0 PLT [...] 4.2-5.4 WBC 5.8 K/mm3 (Normal) Range: 4.4-11.0 04-Aqq-872483:51 Hemoglobin A1c Comments: [facility] [address] [place], [address] HGB A1C 6.1 % (Normal) Range: 4.2-6.3 74-Gwn-690132:51 Prealbumin Comments: [facility] [address] [place], [address] PREALBUMIN 32.4 mg/dL (Normal) Range: 20.0-40.0 29-Kau-74199:06 Urinalysis, Office (31828) UA - LEUKOCYTE ESTERASE Negative (Normal) UA - NITRITE Negative (Normal) URINE UROBILINGN MICHAEL TIMED Normal mg/dL (Normal) UA - PROTEIN Negative mg/dL (Normal) UA - PH 6.0 (Normal) Comments: 5.5 UA - BLOOD Non Hemolyzed Trace (Normal) UA - SPECIFIC GRAVITY 1.030 (Abnormal) UA - KETONES Negative mg/dL (Normal) UA - BILIRUBIN Negative (Normal) UA - GLUCOSE Negative (Normal) 7-Myi-320475:23 SED RATE ERYTHROCYTE Comments: PATIENT WAS FASTINGPERFORMED BY: [employer] Lmhxyn9083 [facility] [id number] Information: [id number] (11475) Sedimentation Rate-[place] 2 mm/h (Normal) Range: 0-40 9-Wsr-135302:27 Aerobic Bacterial Culture Comments: PATIENT WAS FASTINGPERFORMED BY: [facility] [facility] Fyhmyf7801 [facility] [id number] Information: [id number] SRC:AB (45417) Result 1 Mixed skin jaylyn (Normal) Aerobic Bacterial Culture Final report (Normal) 4-Emn-777276:21 Serum Creatinine AND GFR Comments: [facility] [address] [place], [address] EST GFR - AA 73 mL/min (Normal) Comments: GFR Calc EST GFR 60 mL/min (Normal) Comments: Non- GFR Calc CREAT,SERUM 1.00 mg/dL (Normal) Range: 0.55-1.20 Comments: The validity of the calculated GFR AND GFRAA in patients over70 years has not been determined. Clinical correlation isessential. :21 VITAMIN B-12 (CYANOCOBALAMIN) Comments: PATIENT WAS FASTINGPERFORMED BY: Velo LabsGeneral Leonard Wood Army Community HospitalIlrnyr2447 [facility] [id number] (72790) Vitamin B12 738 pg/mL (Normal) Range: 211-946 : TSH (55105) Comments: PATIENT WAS FASTINGPERFORMED BY: Vel[facility] LabsSelect [facility]ty Hospital-Pontiac6370 [facility] [id number] TSH 2.440 {uIU/mL} (Normal) Range: 0.450-4.500 : URINALYSIS, W/ MICRO (99499) Comments: PATIENT WAS FASTINGPERFORMED BY: Vel[facility] LabsSelect Specialty Hospital-Pontiac6370 [facility] [id number] Microscopic Examination See below: (Normal) Comments: Microscopic was indicated and was performed. Microscopic Examination MICRON (Normal) Comments: Microscopic follows if indicated. Nitrite, Urine Negative (Normal) Urobilinogen,Semi-Qn 0.2 mg/dL (Normal) Range: 0.2-1.0 Bilirubin Negative (Normal) Occult Blood Negative (Normal) Ketones Negative (Normal) Glucose Negative (Normal) Protein Negative (Normal) WBC Esterase Negative (Normal) Appearance Clear (Normal) Urine-Color Yellow (Normal) pH 5.5 (Normal) Range: 5.0-7.5 Specific [place] 1.027 (Normal) Range: 1.005-1.030 :21 MICROALBUMIN: CREATININE RATIO Comments: PATIENT WAS FASTINGPERFORMED BY: Vel[facility] LabsSelect Specialty Hospital-Pontiac6370 [facility] [id number] (49889) AND (47875) Microalb/Creat Ratio 2.9 {mg/g_creat} (Normal) Range: 0.0-30.0 Microalbumin, Urine 4.1 ug/mL (Normal) Creatinine, Urine 143.7 mg/dL (Normal) :21 METABOLIC PANEL, COMPREHENSIVE Comments: PATIENT WAS FASTINGPERFORMED BY: Vel[facility] LabsSelect [facility]ty Hospital-Pontiac6370 [facility] [id number] (04642) ALT (SGPT) 28 [iU]/L (Normal) Range: 0-32 [...] Glucose, Serum 134 mg/dL (Abnormal) Range: 65-99 33-Bph-428959:21 CBC W/AUTO DIFF WBC (46223) Comments: PATIENT WAS FASTINGPERFORMED BY: LabCoAtlantiCare Regional Medical Center, [facility] CampusPanqoe4470 [facility] [id number] Immature Grans (Abs) 0.0 {x10E3/uL} (Normal) Range: [...] 3.77-5.28 WBC 5.2 {x10E3/uL} (Normal) Range: 3.4-10.8 86-Vol-654932:21 LIPID PANEL (57414) Comments: PATIENT WAS FASTINGPERFORMED BY: [employer] [place] [id number] LDL/HDL Ratio 3.0 {ratio_units} (Normal) Range: 0.0-3.2 Comments: LDL/HDL Ratio Men Women 1/2 Avg.Risk 1.0 1.5 Av g.Risk 3.6 3.2 2X Avg.Risk 6.2 5.0 3X Avg.Risk 8.0 6.1 LDL Cholesterol Calc 121 mg/dL (Abnormal) Range: 0-99 VLDL Cholesterol Leonel 27 mg/dL (Normal) Range: 5-40 HDL Cholesterol 41 mg/dL (Normal) Triglycerides 137 mg/dL (Normal) Range: 0-149 Cholesterol, Total 189 mg/dL (Normal) Range: 100-199 53-Yga-153084:21 CALCIFIDIOL (48334) VIT D 25 Comments: PATIENT WAS FASTINGPERFORMED BY: [employer] [place] [id number] Vitamin D, 25-Hydroxy 19.5 ng/mL (Abnormal) Range: 30.0-100.0 Comments: Vitamin D deficiency has been defined by the [place] of[place]icine and an Endocrine Society practice guideline as alevel of serum 25-OH vitamin D less than 20 ng/mL (1,2).The Endocrine Society went on to further define vitamin Dinsufficiency as a level between 21 and 29 ng/mL (2).1. IOM ([place] of [employer]). 2010. Dietary reference intakes for calcium and D. [place]: The National Academies Press.2. Catie MF, Karon ACEVEDO, Myron KESSLER, et al. Evaluation, treatment, and prevention of vitamin D deficiency: an Endocrine Society clinical practice guideline. JCEM. 2010; 96(7):1911-30. :19 HgA1C , Office (09298) HgA1C , Office 5.8 % (Normal) Range: 4.6 - 7.1 :19 Blood Glucose , Office (69369) Blood Glucose , Office 79 (Normal) 91-Bma-923117:15 Lipid Profile Comments: Order Date: 10/21/15Interface Comments: 12 hours fasting, may have water.Order Date: 10/21/15[facility] [address] [place], [place], [address] VLDL 28 mg/dL (Normal) Range: 5-40 LDL [...] 200-240 mg/dL Borderline >240 mg/dL High Risk 04-Ikh-269607:15 Liver Profile Comments: Order Date: 10/21/15Interface Comments: 12 hours fasting, may have water.Order Date: 10/21/15[facility] [address] [place], [address] D BILI 0.13 mg/dL (Normal) Range: 0.00-0.30 T BILI 0.80 mg/dL (Normal) Range: 0.20-1.00 ALT 39 U/L (Normal) Range: 12-78 ALK P 90 U/L (Normal) Range: 50-136 AST 23 U/L (Normal) Range: 15-37 GLOB 3.1 g/dL (Normal) Range: 2.3-3.5 ALB 4.3 g/dL (Normal) Range: 3.4-5.0 T PROT 7.4 g/dL (Normal) Range: 6.4-8.2 :48 HgA1C , Office (01088) HgA1C , Office 5.9 % (Normal) Range: 4.6 - 7.1 :48 Blood Glucose , Office (31458) Blood Glucose , Office 81 (Normal) :50 Microscopic Examination Comments: PATIENT WAS FASTINGPERFORMED BY: [employer] ImmunotEGGD[facility] Hospital [id number] Bacteria Few (Normal) Mucus Threads Present (Normal) Epithelial Cells (non renal) 0-10 {/hpf} (Normal) Range: 0 - 10 RBC 0-2 {/hpf} (Normal) Range: 0 - 2 WBC 0-5 {/hpf} (Normal) Range: 0 - 5 :17 VITAMIN B-12 (CYANOCOBALAMIN) Comments: PATIENT NOT FASTINGPERFORMED BY: Bundle [employer]70 ImmunotEGGD[facility] Hospital [id number] (60055) Vitamin B12 928 pg/mL (Normal) Range: 211-946 :17 CALCIFIDIOL (36084) VIT D Comments: PATIENT NOT FASTINGPERFORMED BY: [employer] Nnrqfd7525 [facility] [id number] Information: [id number] Vitamin D, 25-Hydroxy 20.0 ng/mL (Abnormal) Range: 30.0-100.0 Comments: Vitamin D deficiency has been defined by the [place] of[place]icine and an Endocrine Society practice guideline as alevel of serum 25-OH vitamin D less than 20 ng/mL (1,2).The Endocrine Society went on to further define vitamin Dinsufficiency as a level between 21 and 29 ng/mL (2).1. IOM ([place] of [employer]). 2010. Dietary reference intakes for calcium and D. [place]: The National Academies Press.2. Catie MF, Karon ACEVEDO, Myron KESSLER, et al. Evaluation, treatment, and prevention of vitamin D deficiency: an Endocrine Society clinical practice guideline. JCEM. 2010; 96(7):1911-30. :50 URINALYSIS, W/ MICRO (80806) Comments: PATIENT WAS FASTINGPERFORMED BY: [employer] TherapeuticsKindred Hospital [facility] [id number] Microscopic Examination See below: (Normal) Comments: Microscopic was indicated and was performed. Microscopic Examination MICRON (Normal) Comments: Microscopic follows if indicated. Nitrite, Urine Negative (Normal) Urobilinogen,Semi-Qn 0.2 mg/dL (Normal) Range: 0.2-1.0 Bilirubin Negative (Normal) Occult Blood Negative (Normal) Ketones Negative (Normal) Glucose Negative (Normal) Protein Negative (Normal) WBC Esterase Negative (Normal) Appearance Clear (Normal) Urine-Color Yellow (Normal) pH 6.0 (Normal) Range: 5.0-7.5 Specific [place] 1.021 (Normal) Range: 1.005-1.030 :50 MICROALBUMIN: CREATININE RATIO Comments: PATIENT WAS FASTINGPERFORMED BY: LabStyle InnovationsD[facility] Hospital [id number] (63383) AND (29426) Microalb/Creat Ratio 2.6 {mg/g_creat} (Normal) Range: 0.0-30.0 Microalbumin, Urine 4.4 ug/mL (Normal) Creatinine, Urine 170.1 mg/dL (Normal) :50 METABOLIC PANEL, COMPREHENSIVE Comments: PATIENT WAS FASTINGPERFORMED BY: LabStyle InnovationsD[facility] Hospital [id number] (64556) ALT (SGPT) 28 [iU]/L (Normal) Range: 0-32 [...] Glucose, Serum 113 mg/dL (Abnormal) Range: 65-99 59-Jip-39130:50 CBC W/AUTO DIFF WBC Comments: PATIENT WAS FASTINGPERFORMED BY: DAVID [facility] Btawkb3142 [facility] [id number] Information: [id number] DL (03941) Immature Grans (Abs) 0.0 {x10E3/uL} (Normal) Range: [...] B-12 (CYANOCOBALAMIN) Comments: PATIENT WAS FASTINGPERFORMED BY: [employer] [facility] Hzsanp5575 [facility] [id number] (57681) Vitamin B12 589 pg/mL (Normal) Range: 211-946 :50 LIPID PANEL (96586) Comments: PATIENT WAS FASTINGPERFORMED BY: [facility] Hmylvm7249 [facility] [id number] LDL/HDL Ratio 3.2 {ratio_units} (Normal) Range: 0.0-3.2 [...] 178 mg/dL (Normal) Range: 100-199 :50 CALCIFIDIOL (96187) VIT D 25 Comments: PATIENT WAS FASTINGPERFORMED BY: LabCoAtlantiCare Regional Medical Center, [facility] CampusQdyllm3760 [facility] [id number] Vitamin D, 25-Hydroxy 23.6 ng/mL (Abnormal) Range: 30.0-100.0 Comments: Vitamin D deficiency has been defined by the [place] of[place]icine and an Endocrine Society practice guideline as alevel of serum 25-OH vitamin D less than 20 ng/mL (1,2).The Endocrine Society went on to further define vitamin Dinsufficiency as a level between 21 and 29 ng/mL (2).1. IOM ([place] of [employer]). 2010. Dietary reference intakes for calcium and D. [place]: The National Academies Press.2. Catie MF, Karon NC, Myron KESSLER, et al. Evaluation, treatment, and prevention of vitamin D deficiency: an Endocrine Society clinical practice guideline. JCEM. 2010; 96(7):1911-30. :39 HgA1C , Office (34292) HgA1C , Office 5.7 % (Normal) Range: 4.6 - 7.1 :39 Blood Glucose , Office (48630) Blood Glucose , Office 87 (Normal) :08 CK-MB Quantitative and Index Comments: 'TROP' Serial specimen #1, #2, #3, or #4: INT'CKMB' Serial Specimen #1, #2 or #3? [facility] [address] [place], [place], [address] CKRI 0.5 % (Normal) Range: 0.0-1.4 Comments: RELATIVE INDEX >1.5% IS PRESUMPTIVELY POSITIVE CPKMB 0.6 ng/mL (Normal) Range: 0.0-5.0 Comments: CK-MB and RI Interpretation MB Relative Index Non-AMI <or= 5 NA Indeterminate > 5 <or= 4 AMI > 5 > 4 CPK TOTAL 114 U/L (Normal) Range: 26-192 0-Iwr-559946:08 Troponin I (04740) Comments: 'TROP' Serial specimen #1, #2, #3, or #4: INT'CKMB' Serial Specimen #1, #2 or #3? 1[facility] [address] [place], [place], [address] TROPONIN-I < 0.02 ng/mL (Normal) Comments: TROPONIN-I EXPECTED VALUES <0.05 NEGATIVE 0.06 - 0.59 AT RISK OF HI > OR = 0.60 SUGGEST HI 2-Ort-334391:44 LIPID PANEL (14627) Comments: PATIENT WAS FASTINGPERFORMED BY: [facility] [id number] Information: [id number] LDL/HDL Ratio 2.6 {ratio_units} (Normal) Range: 0.0-3.2 [...] Cholesterol, Total 172 mg/dL (Normal) Range: 100-199 :56 HgA1C , Office (20836) HgA1C , Office 5.8 % (Normal) Range: 4.6 - 7.1 :56 Blood Glucose , Office (52051) Blood Glucose , Office 99 (Normal) 51-Jrt-713652:27 URINE SHANI CULTURE-MICHAEL COL Comments: PATIENT NOT FASTINGPERFORMED BY: [employer] CampusOnpbsr8593 [facility] [id number] Information: SRC:[facility] [id number] COUNT (57241) Antimicrobial MIHEAD (Normal) Comments: S = Susceptible; [...] . (Abnormal) Urine Final report Culture,Comprehensive (Abnormal) 01-Dbl-841519:33 Urinalysis, Office (71371) UA - LEUKOCYTE ESTERASE Negative (Normal) UA - NITRITE Negative (Normal) URINE UROBILINGN MICHAEL TIMED Normal mg/dL (Normal) UA - PROTEIN Negative mg/dL (Normal) UA - PH 5 (Abnormal) UA - BLOOD Negative (Normal) UA - SPECIFIC GRAVITY 1.025 (Normal) UA - KETONES Negative mg/dL (Normal) UA - BILIRUBIN Negative (Normal) UA - GLUCOSE Negative (Normal) 28-Kbk-187574:00 Culture, Wound Comments: Test performed at:[facility] [address] [place] [address] CUW See Note (Normal) Comments: SPECIMEN RECEIVED [...] $ <=20 S(NF) indicates non-formulary drug at [facility]. Approval by In fectious Disease Specialist required before non-formulary drugs may be ordered and/or dispensed. 68-Mri-167727:54 Bedside Glucose Comments: Test performed at:[facility] [address] [place] [address] ; ordered by Dr. Kebede BEDSIDE GLU 126 mg/dL (Abnormal) Range: 70-110 Comments: No Action RequiredMANAGEMENT OF PATIENT CARE PER NURSING PROTOCOL 85-Nsb-128354:25 Urinalysis, Routine (Dipstick) Comments: How was Urine Obtained? RESEARCH AND EVALUATION MANAGER TO SPECIFYTest performed at:[facility] [address] [place] [address] LEUK ESTERASE Negative /ul (Normal) OCCULT BLOOD-UR Negative /ul (Normal) NITRITE UR Negative (Normal) UROBILI Normal mg/dL (Normal) PROT DIPSTX Negative mg/dL (Normal) pH UR 5.0 (Normal) Range: 5.0 - 8.0 SP.GR. DIPSTX 1.020 (Normal) Range: 1.002-1.030 KETONE UR Negative mg/dL (Normal) BILIRUBIN URINE Negative mg/dL (Normal) GLUCOSE, UR Normal mg/dL (Normal) CLARITY Clear (Normal) COLOR Yellow (Normal) 83-Ajf-190703:01 Bedside Glucose Comments: Test performed at:[facility] [address] [place] [address] BEDSIDE GLU 108 mg/dL (Normal) Range: 70-110 Comments: Policy and Physicians Orders followedMANAGEMENT OF PATIENT CARE PER NURSING PROTOCOL 52-Rzs-45551:47 CBC W/Diff, Automated Comments: Test performed at:[facility] [address] [place] [address] Absolute Lymph 2.25 {X10_3/ul} (Normal) [...] 4.2-5.4 WBC 5.9 K/mm3 (Normal) Range: 4.4-11.0 88-Wrl-48617:47 Comprehensive Metabolic Profil Comments: Test performed at:[facility] [address] [place] [address] GAP 11 (Normal) Range: 5-15 CO2 24.0 [...] 7-18 GLU 106 mg/dL (Normal) Range: 70-110 04-Bpr-990500:33 LIPID PANEL (35828) Comments: PATIENT WAS FASTINGPERFORMED BY: Cuff-ProtectAtlantiCare Regional Medical Center, [facility] CampusMrpnlz[address] [place] [address] [id number] LDL/HDL Ratio 3.4 {ratio_units} (Abnormal) Range: 0.0-3.2 [...] Cholesterol, Total 208 mg/dL (Abnormal) Range: 100-199 36-Gar-154606:33 TSH (46272) Comments: PATIENT WAS FASTINGPERFORMED BY: Cuff-ProtectAtlantiCare [facility] Medical [facility], [facility] CampusTzupvq8415 [facility] [id number] TSH 3.440 {uIU/mL} (Normal) Range: 0.450-4.500 23-Wxi-505318:33 METABOLIC PANEL, Comments: PATIENT WAS FASTINGPERFORMED BY: Cuff-ProtectAtlantiCare Regional Medical [facility], [facility] CampusRoriil5108 [facility] [id number] Information: [id number] COMPREHENSIVE (95245) ALT (SGPT) 26 [iU]/L (Normal) Range: 0-32 [...] Glucose, Serum 108 mg/dL (Abnormal) Range: 65-99 06-Tlo-448489:33 CBC (AUTO) (32407) Comments: PATIENT WAS FASTINGPERFORMED BY: LabCoAtlantiCare Regional Medical Center, [facility] CampusNcemqz3077 [facility] [id number] Platelets 216 {x10E3/uL} (Normal) Range: 150-379 RDW 13.9 % (Normal) Range: 12.3-15.4 MCHC 34.1 g/dL (Normal) Range: 31.5-35.7 MCH 28.9 pg (Normal) Range: 26.6-33.0 MCV 85 fL (Normal) Range: 79-97 Hematocrit 41.6 % (Normal) Range: 34.0-46.6 Hemoglobin 14.2 g/dL (Normal) Range: 11.1-15.9 RBC 4.92 {x10E6/uL} (Normal) Range: 3.77-5.28 WBC 5.6 {x10E3/uL} (Normal) Range: 3.4-10.8 :33 VITAMIN B-12 (CYANOCOBALAMIN) Comments: PATIENT WAS FASTINGPERFORMED BY: [employer] Hdpcsn9898 [facility] [id number] (54000) Vitamin B12 638 pg/mL (Normal) Range: 211-946 :33 CALCIFIDIOL (78508) VIT D 25 Comments: PATIENT WAS FASTINGPERFORMED BY: [employer] Awzuyj1787 [facility] [id number]; apt. 12-13-14 Vitamin D, 25-Hydroxy 19.4 ng/mL (Abnormal) Range: 30.0-100.0 Comments: Vitamin D deficiency has been defined by the [place] ofAdena Fayette Medical Centercine and an Endocrine Society practice guideline as alevel of serum 25-OH vitamin D less than 20 ng/mL (1,2).The Endocrine Society went on to further define vitamin Dinsufficiency as a level between 21 and 29 ng/mL (2).1. IOM ([place] of Medicine). 2010. Dietary reference intakes for calcium and D. [place]: The National Academies Press.2. Catie MF, Karon NC, Myron KESSLER, et al. Evaluation, treatment, and prevention of vitamin D deficiency: an Endocrine Society clinical practice guideline. JCEM. 2010; 96(7):1911-30. :47 HgA1C , Office (86683) HgA1C , Office 5.9 % (Normal) Range: 4.6 - 7.1 :05 METABOLIC PANEL, Comments: PATIENT NOT FASTINGPERFORMED BY: Cuff-ProtectAtlantiCare Regional Medical Center, [facility] CampusIzrdyk3957 [facility] [id number] Information: [id number] COMPREHENSIVE (97868) ALT (SGPT) 24 [iU]/L (Normal) Range: 0-32 [...] Glucose, Serum 139 mg/dL (Abnormal) Range: 65-99 97-Pil-696366:05 CBC (AUTO) (91046) Comments: PATIENT NOT FASTINGPERFORMED BY: LabCoAtlantiCare Regional Medical Center, [facility] CampusXqvbbz7775 [facility] [id number] Platelets 251 {x10E3/uL} (Normal) Range: 150-379 RDW 13.3 % (Normal) Range: 12.3-15.4 MCHC 33.9 g/dL (Normal) Range: 31.5-35.7 MCH 28.3 pg (Normal) Range: 26.6-33.0 MCV 84 fL (Normal) Range: 79-97 Hematocrit 43.4 % (Normal) Range: 34.0-46.6 Hemoglobin 14.7 g/dL (Normal) Range: 11.1-15.9 RBC 5.19 {x10E6/uL} (Normal) Range: 3.77-5.28 WBC 5.8 {x10E3/uL} (Normal) Range: 3.4-10.8 20-Dzc-164242:05 VITAMIN B-12 (CYANOCOBALAMIN) Comments: PATIENT NOT FASTINGPERFORMED BY: [facility]6370 [facility] [id number] (92635) Vitamin B12 365 pg/mL (Normal) Range: 211-946 :05 TSH (88367) Comments: PATIENT NOT FASTINGPERFORMED BY: [facility]6370 [facility] [id number] TSH 2.930 {uIU/mL} (Normal) Range: 0.450-4.500 :25 [...] <0.05 NEGATIVE0.06 - 0.59 AT RISK OF HI> OR = 0.60 SUGGEST HI :32 URINE SHANI CULTURE (MICHAEL Comments: PATIENT NOT FASTINGPERFORMED BY: Velo LabsJanet Ville 5453870 [facility] [id number] Information: SRC:UR [id number] COL COUNT) (82845) Result 1 MUG (Normal) Comments: Mixed urogenital flora25,000-50,000 colony forming units per mL Urine Final report (Normal) Culture,Comprehensive :14 Urinalysis, Office (28579) UA - LEUKOCYTE ESTERASE Negative (Normal) UA - NITRITE Negative (Normal) URINE UROBILINGN MICHAEL TIMED Normal mg/dL (Normal) UA - PROTEIN Negative mg/dL (Normal) UA - PH 5.0 (Normal) Comments: 5.5 UA - BLOOD Negative (Normal) UA - SPECIFIC GRAVITY 1.030 (Abnormal) UA - KETONES Negative mg/dL (Normal) UA - BILIRUBIN Negative (Normal) UA - GLUCOSE Negative (Normal) :51 HgA1C , Office (91638) HgA1C , Office 6.1 % (Normal) Range: 4.6 - 7.1 :16 URINE SHANI CULTURE-MICHAEL COL Comments: PATIENT NOT FASTINGPERFORMED BY: LabJanet Ville 5453870 [facility] [id number] Information: SRC:UR [id number] COUNT (74758) Result 1 ECV (Abnormal) Comments: Escherichia coli, [...] S Urine Final report Culture,Comprehensi (Abnormal) ve 83-Uhn-458259:59 Urinalysis, Office (71136) UA - LEUKOCYTE ESTERASE Small (Normal) UA - NITRITE Negative (Normal) URINE UROBILINGN MICHAEL TIMED 2 mg/dL (Normal) UA - PROTEIN Negative mg/dL (Normal) UA - PH 6.5 (Normal) UA - BLOOD Hemolyzed Small (Normal) UA - SPECIFIC GRAVITY 1.025 (Normal) UA - KETONES Negative mg/dL (Normal) UA - BILIRUBIN Negative (Normal) UA - GLUCOSE Negative (Normal) :33 HgA1C , Office (15530) HgA1C , Office 6.1 % (Normal) Range: 4.6 - 7.1 :33 Blood Glucose , Office (04020) Blood Glucose , Office 144 (Normal) Comments: non-fasting :24 Microscopic Examination Comments: PATIENT WAS FASTINGPERFORMED BY: [facility] [id number] Bacteria Few (Normal) Mucus Threads Present (Normal) Epithelial Cells (non renal) >10 {/hpf} (Abnormal) Range: 0 - 10 RBC 0-2 {/hpf} (Normal) Range: 0 - 2 WBC 0-5 {/hpf} (Normal) Range: 0 - 5 :48 TSH (74336) Comments: PATIENT WAS FASTINGPERFORMED BY: [facility] [id number] TSH 3.000 {uIU/mL} (Normal) Range: 0.450-4.500 :48 LIPID PANEL (56047) Comments: PATIENT WAS FASTINGPERFORMED BY: [facility] [id number] LDL/HDL Ratio 2.8 {ratio_units} (Normal) Range: 0.0-3.2 LDL Cholesterol Calc 105 mg/dL (Abnormal) Range: 0-99 VLDL Cholesterol Leonel 26 mg/dL (Normal) Range: 5-40 HDL Cholesterol 37 mg/dL (Abnormal) Comments: According to ATP-III Guidelines, HDL-C >59 mg/dL is considered anegative risk factor for CHD. Cholesterol, Total 168 mg/dL (Normal) Range: 100-199 Triglycerides 128 mg/dL (Normal) Range: 0-149 :48 URINALYSIS, W/ MICRO (18027) Comments: PATIENT WAS FASTINGPERFORMED BY: Cuff-ProtectAtlantiCare Regional Medical Center, [facility] CampusKerxzm5552 [facility] [id number] Microscopic Examination See below: (Normal) Microscopic Examination MICRON (Normal) Comments: Microscopic follows if indicated. Nitrite, Urine Negative (Normal) Urobilinogen,Semi-Qn 0.2 mg/dL (Normal) Range: 0.0-1.9 Bilirubin Negative (Normal) Occult Blood Negative (Normal) Ketones Negative (Normal) Glucose Negative (Normal) Protein Negative (Normal) WBC Esterase Negative (Normal) Appearance Clear (Normal) Urine-Color Yellow (Normal) pH 6.0 (Normal) Range: 5.0-7.5 Specific [place] 1.026 (Normal) Range: 1.005-1.030 :48 MICROALBUMIN: CREATININE RATIO Comments: PATIENT WAS FASTINGPERFORMED BY: [employer] Hejgyi8647 [facility] [id number] (79683) AND (94752) Microalb/Creat Ratio 3.5 {mg/g_creat} (Normal) Range: 0.0-30.0 Microalbumin, Urine 5.6 ug/mL (Normal) Range: 0.0-17.0 Creatinine, Urine 158.6 mg/dL (Normal) Range: 15.0-328.0 :48 METABOLIC PANEL, COMPREHENSIVE Comments: PATIENT WAS FASTINGPERFORMED BY: Cuff-ProtectAtlantiCare Regional Medical Center, [facility] CampusIszoap4080 [facility] [id number] (62693) ALT (SGPT) 26 [iU]/L (Normal) Range: 0-32 [...] Glucose, Serum 100 mg/dL (Abnormal) Range: 65-99 53-Fzf-61099:48 CBC WITH MANUAL DIFF Comments: PATIENT WAS FASTINGPERFORMED BY: LabCoAtlantiCare Regional Medical Center, [facility] CampusRlvuws9078 [facility] [id number] Information: [id number] (82089) Immature Grans (Abs) 0.0 {x10E3/uL} (Normal) Range: [...] to dr sánchez; PATIENT WAS FASTINGPERFORMED BY: [employer]6[address] [place] [facility] [id number] (34933) ALT (SGPT) 25 [iU]/L (Normal) Range: 0-32 AST (SGOT) 21 [iU]/L (Normal) Range: 0-40 Alkaline Phosphatase, S 103 [iU]/L (Normal) Range: 39-117 Bilirubin, Direct 0.16 mg/dL (Normal) Range: 0.00-0.40 Bilirubin, Total 0.8 mg/dL (Normal) Range: 0.0-1.2 Albumin, Serum 4.7 g/dL (Normal) Range: 3.5-5.5 Protein, Total, Serum 7.1 g/dL (Normal) Range: 6.0-8.5 :41 LIPID PANEL (72445) Comments: send to dr sánchez; PATIENT WAS FASTINGPERFORMED BY: Flareo Qqdnpu1955 [place] [facility] [id number] Information: [id number] LDL Cholesterol Calc 104 mg/dL (Abnormal) Range: 0-99 LDL/HDL Ratio 2.7 {ratio_units} (Normal) Range: 0.0-3.2 HDL Cholesterol 39 mg/dL (Abnormal) Comments: According to ATP-III Guidelines, HDL-C >59 mg/dL is considered anegative risk factor for CHD. VLDL Cholesterol Leonel 20 mg/dL (Normal) Range: 5-40 Triglycerides 100 mg/dL (Normal) Range: 0-149 Cholesterol, Total 163 mg/dL (Normal) Range: 100-199 :47 HgA1C , Office (01507) HgA1C , Office 5.7 % (Normal) Range: 4.6 - 7.1 :47 Blood Glucose , Office (29481) Blood Glucose , Office 142 (Normal) :18 Microscopic Examination Comments: PATIENT WAS FASTINGPERFORMED BY: [employer] Srdcba2329 [place]abDublin [place] [id number] Bacteria None seen (Normal) Mucus Threads Present (Normal) Epithelial Cells (non renal) 0-10 {/hpf} (Normal) Range: 0 - 10 RBC None seen {/hpf} (Normal) Range: 0 - 3 WBC 0-5 {/hpf} (Normal) Range: 0 - 5 :18 Vitamin D Hydroxy (64848) Comments: PATIENT WAS FASTINGPERFORMED BY: [employer] Kzmwsr3014 ImmunotEGGblin [place] [id number] Vitamin D, 25-Hydroxy 21.1 ng/mL (Abnormal) Range: 30.0-100.0 Comments: Vitamin D deficiency has been defined by the [place] ofMedicine and an Endocrine Society practice guideline as alevel of serum 25-OH vitamin D less than 20 ng/mL (1,2).The Endocrine Society went on to further define vitamin Dinsufficiency as a level between 21 and 29 ng/mL (2).1. IOM ([place] of [employer]). 2010. Dietary reference intakes for calcium and D. [place]: The National Academies Press.2. Catie MF, Karon NC, Myron KESSLER, et al. Evaluation, treatment, and prevention of vitamin D deficiency: an Endocrine Society clinical practice guideline. JCEM. 2010; 96(7):1911-30. :18 TSH (99352) Comments: PATIENT WAS FASTINGPERFORMED BY: [employer] LabTeracent Qwatwy1493 [place] [facility]At[facility] [id number] TSH 2.340 {uIU/mL} (Normal) Range: 0.450-4.500 :18 URINALYSIS, W/ MICRO (10825) Comments: PATIENT WAS FASTINGPERFORMED BY: Velo LabsSelect Specialty Hospital-Pontiac6370 [facility] [id number] Microscopic Examination See below: (Normal) Microscopic Examination MICRON (Normal) Comments: Microscopic follows if indicated. Nitrite, Urine Negative (Normal) Urobilinogen,Semi-Qn 0.2 mg/dL (Normal) Range: 0.0-1.9 Bilirubin Negative (Normal) Occult Blood Negative (Normal) Ketones Negative (Normal) Glucose Negative (Normal) Protein Negative (Normal) WBC Esterase Negative (Normal) Appearance Clear (Normal) pH 6.0 (Normal) Range: 5.0-7.5 Urine-Color Yellow (Normal) Specific [place] 1.024 (Normal) Range: 1.005-1.030 :18 MICROALBUMIN: CREATININE RATIO Comments: PATIENT WAS FASTINGPERFORMED BY: Cuff-ProtectAtlantiCare Regional Medical Center, [facility] CampusWhlcpu6043 [facility] [id number] (38082) AND (47922) Microalb/Creat Ratio 2.7 {mg/g_creat} (Normal) Range: 0.0-30.0 Creatinine, Urine 138.1 mg/dL (Normal) Range: 15.0-278.0 Microalbumin, Urine 3.7 ug/mL (Normal) Range: 0.0-17.0 :18 METABOLIC PANEL, COMPREHENSIVE Comments: PATIENT WAS FASTINGPERFORMED BY: Cuff-ProtectAtlantiCare Regional Medical Center, [facility] CampusBygzek0364 [facility] [id number] (78331) ALT (SGPT) 25 [iU]/L (Normal) Range: 0-32 [...] mg/dL (Normal) Range: 65-99 :18 LIPID PANEL (08693) Comments: PATIENT WAS FASTINGPERFORMED BY: [employer]70 [place] [facility] [id number] LDL/HDL Ratio 2.8 {ratio_units} (Normal) Range: 0.0-3.2 [...] MANUAL DIFF Comments: PATIENT WAS FASTINGPERFORMED BY: FlareoAtlantiCare Regional Medical Center, [facility] CampusTpjjgt6786 [facility] [id number] Information: [id number] (72629) Immature Grans (Abs) 0.0 {x10E3/uL} (Normal) Range: [...] (Normal) Range: 3.4-10.8 :31 HgA1C , Office (03804) HgA1C , Office 5.5 % (Normal) Range: 4.6 - 7.1 :31 Blood Glucose , Office (26745) Blood Glucose , Office 113 (Normal) :23 HgA1C , Office (78441) HgA1C , Office 6.1 % (Normal) Range: 4.6 - 7.1 :23 Blood Glucose , Office (53394) Blood Glucose , Office 118 (Normal) :33 Microscopic Examination Comments: PATIENT WAS FASTINGPERFORMED BY: LabSelect Specialty Hospital-Pontiac6370 [facility] [id number] Bacteria None seen (Normal) Mucus Threads Present (Normal) Epithelial Cells (non renal) 0-10 {/hpf} (Normal) Range: 0 - 10 RBC 0-3 {/hpf} (Normal) Range: 0 - 3 WBC 0-5 {/hpf} (Normal) Range: 0 - 5 :27 FECAL OCCULT HGB ASSAY- tubes sent home (89929) FECAL OCCULT HGB ASSAY, QUAL, 1-3 SIMULTANEOU negative (Normal) :33 TSH (80452) Comments: PATIENT WAS FASTINGPERFORMED BY: Flareo Lmushd3966 [facility] [id number] TSH 3.330 {uIU/mL} (Normal) Range: 0.450-4.500 :33 URINALYSIS, W/ MICRO (31962) Comments: PATIENT WAS FASTINGPERFORMED BY: [employer] Thysku6061 [facility] [id number] Microscopic Examination See below: (Normal) Microscopic Examination MICRON (Normal) Comments: Microscopic follows if indicated. Nitrite, Urine Negative (Normal) Urobilinogen,Semi-Qn 0.2 mg/dL (Normal) Range: 0.0-1.9 Bilirubin Negative (Normal) Occult Blood Negative (Normal) Ketones Negative (Normal) Glucose Negative (Normal) Protein Negative (Normal) WBC Esterase Negative (Normal) Appearance Clear (Normal) Urine-Color Yellow (Normal) pH 7.0 (Normal) Range: 5.0-7.5 Specific [place] 1.021 (Normal) Range: 1.005-1.030 46-Wlw-779795:33 MICROALBUMIN: CREATININE RATIO Comments: PATIENT WAS FASTINGPERFORMED BY: Cuff-ProtectAtlantiCare Regional Medical Center, [facility] CampusHekfsj7064 [facility] [id number] (55903) AND (59286) Microalb/Creat Ratio 1.6 {mg/g_creat} (Normal) Range: 0.0-30.0 Creatinine, Urine 154.5 mg/dL (Normal) Range: 15.0-278.0 Microalbumin, Urine 2.5 ug/mL (Normal) Range: 0.0-17.0 78-Ilj-791399:33 METABOLIC PANEL, COMPREHENSIVE Comments: PATIENT WAS FASTINGPERFORMED BY: DAVID MessageBunker [facility] [id number] (65992) ALT (SGPT) 24 [iU]/L (Normal) Range: 0-32 [...] Glucose, Serum 105 mg/dL (Abnormal) Range: 65-99 99-Cnt-901001:33 LIPID PANEL (52287) Comments: PATIENT WAS FASTINGPERFORMED BY: LabStyle Innovationsin [place] [id number] LDL Cholesterol Calc 115 mg/dL (Abnormal) Range: 0-99 LDL/HDL Ratio 2.9 {ratio_units} (Normal) Range: 0.0-3.2 HDL Cholesterol 39 mg/dL (Abnormal) Comments: According to ATP-III Guidelines, HDL-C >59 mg/dL is considered anegative risk factor for CHD. VLDL Cholesterol Leonel 32 mg/dL (Normal) Range: 5-40 Cholesterol, Total 186 mg/dL (Normal) Range: 100-199 Triglycerides 160 mg/dL (Abnormal) Range: 0-149 75-Kmp-764390:33 CBC WITH MANUAL DIFF Comments: PATIENT WAS FASTINGPERFORMED BY: DAVID [facility] Yjaszq6520 [facility] [id number] Information: [id number] (54693) Immature Grans (Abs) 0.0 {x10E3/uL} (Normal) Range: [...] (Normal) Range: 4.0-10.5 :33 Vitamin D Hydroxy (14116) Comments: PATIENT WAS FASTINGPERFORMED BY: LabCo Gjsdsk2149 [facility] [id number] Vitamin D, 25-Hydroxy 46.4 ng/mL (Normal) Range: 30.0-100.0 Comments: Vitamin D deficiency has been defined by the [place] ofAdena Fayette Medical Centercine and an Endocrine Society practice guideline as alevel of serum 25-OH vitamin D less than 20 ng/mL (1,2).The Endocrine Society went on to further define vitamin Dinsufficiency as a level between 21 and 29 ng/mL (2).1. IOM ([place] of [employer]). 2010. Dietary reference intakes for calcium and D. [place]: The National Academies Press.2. Catie MF, Karon NC, Myron KESSLER, et al. Evaluation, treatment, and prevention of vitamin D deficiency: an Endocrine Society clinical practice guideline. JCEM. 2010; 96(7):1911-30. :58 HgA1C , Office (83485) HgA1C , Office 6.0 % (Normal) Range: 4.6 - 7.1 :58 Blood Glucose , Office (97009) Blood Glucose , Office 92 (Normal) :59 HgA1C , Office (35740) HgA1C , Office 5.5 % (Normal) Range: 4.6 - 7.1 :59 Blood Glucose , Office (71556) Blood Glucose , Office 105 (Normal) :40 LIPID PANEL (14444) Comments: PATIENT WAS FASTINGPERFORMED BY: LabCoAtlantiCare Regional Medical Center, [facility] CampusVdxnry2513 [facility] [id number] LDL Cholesterol Calc 144 mg/dL (Abnormal) Range: 0-99 LDL/HDL Ratio 3.1 {ratio_units} (Normal) Range: 0.0-3.2 VLDL Cholesterol Leonel 24 mg/dL (Normal) Range: 5-40 HDL Cholesterol 46 mg/dL (Normal) Comments: According to ATP-III Guidelines, HDL-C >59 mg/dL is considered anegative risk factor for CHD. Triglycerides 118 mg/dL (Normal) Range: 0-149 Cholesterol, Total 214 mg/dL (Abnormal) Range: 100-199 :40 TSH (32074) Comments: PATIENT WAS FASTINGPERFORMED BY: [facility] [id number] TSH 2.430 {uIU/mL} (Normal) Range: 0.450-4.500 :40 URINALYSIS, W/ MICRO (49235) Comments: PATIENT WAS FASTINGPERFORMED BY: [facility] [id number] Microscopic Examination See below: (Normal) Microscopic Examination MICRON (Normal) Comments: Microscopic follows if indicated. Nitrite, Urine Negative (Normal) Urobilinogen,Semi-Qn 0.2 mg/dL (Normal) Range: 0.0-1.9 Bilirubin Negative (Normal) Occult Blood Negative (Normal) Ketones Negative (Normal) Glucose Negative (Normal) Protein Negative (Normal) WBC Esterase Negative (Normal) Appearance Clear (Normal) Urine-Color Yellow (Normal) pH 5.5 (Normal) Range: 5.0-7.5 Specific [place] 1.022 (Normal) Range: 1.005-1.030 :40 MICROALBUMIN: CREATININE RATIO Comments: PATIENT WAS FASTINGPERFORMED BY: FlareoAtlantiCare Regional Medical Center, [facility] CampusSquisl8670 [facility] [id number] (85530) AND (49823) Microalb/Creat Ratio 2.2 {mg/g_creat} (Normal) Range: 0.0-30.0 Creatinine, Urine 124.7 mg/dL (Normal) Range: 15.0-278.0 Microalbumin, Urine 2.7 ug/mL (Normal) Range: 0.0-17.0 :40 METABOLIC PANEL, COMPREHENSIVE Comments: PATIENT WAS FASTINGPERFORMED BY: FlareoAtlantiCare Regional Medical Center, [facility] CampusPdpset4840 [facility] [id number] (43760) ALT (SGPT) 27 [iU]/L (Normal) Range: 0-32 [...] Glucose, Serum 119 mg/dL (Abnormal) Range: 65-99 9-Uhk-059222:40 CBC WITH MANUAL DIFF Comments: PATIENT WAS FASTINGPERFORMED BY: [facility] [id number] Information: [id number] (54139) Immature Grans (Abs) 0.0 {x10E3/uL} (Normal) Range: [...] Microscopic Examination Comments: PATIENT WAS FASTINGPERFORMED BY: [facility] [id number] Bacteria None seen (Normal) Mucus Threads Present (Normal) Epithelial Cells (non renal) 0-10 {/hpf} (Normal) Range: 0 - 10 RBC None seen {/hpf} (Normal) Range: 0 - 3 WBC 0-5 {/hpf} (Normal) Range: 0 - 5 :59 HgA1C , Office (86472) HgA1C , Office 5.8 % (Normal) Range: 4.6 - 7.1 :59 Blood Glucose , Office (34649) Blood Glucose , Office 137 (Normal) 3-Qmw-856252:50 URINE SHANI CULTURE (MICHAEL Comments: PATIENT NOT FASTINGPERFORMED BY: FlareoAtlantiCare [facility] CampusSamnur3324 [facility] [id number] Information: SRC:UR [id number] COL COUNT) (34400) Result 1 MUG (Normal) Comments: Mixed urogenital flora10,000-25,000 colony forming units per mL Urine Final report (Normal) Culture,Comprehensive :53 Urinalysis, Office (13525) UA - BILIRUBIN Large (Normal) UA - BLOOD Negative (Normal) UA - GLUCOSE Negative (Normal) UA - KETONES Negative mg/dL (Normal) UA - LEUKOCYTE ESTERASE Negative (Normal) UA - NITRITE Negative (Normal) UA - PH 6.0 (Normal) UA - PROTEIN Negative mg/dL (Normal) UA - SPECIFIC GRAVITY 1.025 (Normal) URINE UROBILINGN MICHAEL TIMED Normal mg/dL (Normal) 09-Nud-199550:17 Microscopic Examination Comments: PATIENT WAS FASTINGPERFORMED BY: [employer]70 [facility] [id number] Bacteria None seen (Normal) Mucus Threads Present (Normal) Epithelial Cells (non renal) 0-10 {/hpf} (Normal) Range: 0 - 10 RBC 0-3 {/hpf} (Normal) Range: 0 - 3 WBC 0-5 {/hpf} (Normal) Range: 0 - 5 86-Aya-099532:32 L/S SPINE,MIN 4 VIEWS Radiology Report See [...] Saxena M.D.September 24, 2011 at 3:23:12 PM [id number] Signed GP/GP If you are the referring physician and would like t o consult with theradiologist who provided this interpretation, please contact Marcelo Choudhury at [phone]. If this radiologist is unavailable, youwill be directed to another radiologist to assist. If you are a patient with a question regarding this report, pleasecontactyour referring physician directly. Professional Interpretation Provided By: [employer]ipper, Phone ,Fax Dictated on 09/24/11 1000 by Odessa VIDALES,Aylinranscribed on 09/24/11 1530 by ITS IMPORTSign by Odessa VIDALES,Ross on 09/24/11 1530 Sign by: Ross Saxena MD 26-Trw-922314:17 Hemoglobin Glyclated (HGB A1C) Comments: PATIENT WAS FASTINGPERFORMED BY: [employer]6370 [facility] [id number] (22730) Hemoglobin A1c 5.6 % (Normal) Range: 4.8-5.6 Comments: . Increased risk for diabetes: 5.7 - 6.4 Diabetes: >6.4 Glycemic control for adults with diabetes: <7.0 32-Ymr-696568:17 LIPID PANEL (82565) Comments: PATIENT WAS FASTINGPERFORMED BY: [employer]6370 [facility] [id number] LDL/HDL Ratio 3.2 {ratio_units} (Normal) Range: 0.0-3.2 LDL Cholesterol Calc 126 mg/dL (Abnormal) Range: 0-99 VLDL Cholesterol Leonel 30 mg/dL (Normal) Range: 5-40 HDL Cholesterol 40 mg/dL (Normal) Comments: According to ATP-III Guidelines, HDL-C >59 mg/dL is considered anegative risk factor for CHD. Triglycerides 151 mg/dL (Abnormal) Range: 0-149 Cholesterol, Total 196 mg/dL (Normal) Range: 100-199 21-Jdg-962041:17 TSH (09347) Comments: PATIENT WAS FASTINGPERFORMED BY: Cuff-ProtectAtlantiCare [facility], [facility] CampusFfwelz2669 [facility] [id number] TSH 2.330 {uIU/mL} (Normal) Range: 0.450-4.500 30-Pif-852067:17 URINALYSIS, W/ MICRO (16921) Comments: PATIENT WAS FASTINGPERFORMED BY: Cuff-ProtectAtlantiCare [facility], [facility] CampusMgedrg3620 [facility] [id number] Microscopic Examination See below: (Normal) Microscopic Examination MICRON (Normal) Comments: Microscopic follows if indicated. Nitrite, Urine Negative (Normal) Urobilinogen,Semi-Qn 0.2 mg/dL (Normal) Range: 0.0-1.9 Bilirubin Negative (Normal) Occult Blood Negative (Normal) Ketones Negative (Normal) Glucose Negative (Normal) Protein Negative (Normal) WBC Esterase Negative (Normal) Appearance Clear (Normal) Urine-Color Yellow (Normal) pH 5.0 (Normal) Range: 5.0-7.5 Specific [place] 1.022 (Normal) Range: 1.005-1.030 06-Lws-316936:17 MICROALBUMIN: CREATININE RATIO Comments: PATIENT WAS FASTINGPERFORMED BY: Cuff-ProtectAtlantiCare [facility], [facility] CampusAifelx7604 [facility] [id number] (01906) AND (24470) Microalb/Creat Ratio 2.4 {mg/g_creat} (Normal) Range: 0.0-30.0 Microalbumin, Urine 3.0 ug/mL (Normal) Range: 0.0-17.0 Creatinine, Urine 125.5 mg/dL (Normal) Range: 15.0-278.0 :17 METABOLIC PANEL, COMPREHENSIVE Comments: PATIENT WAS FASTINGPERFORMED BY: Cuff-ProtectAtlantiCare [facility], [facility] CampusCnlvad5293 [facility] [id number] (60725) ALT (SGPT) 18 [iU]/L (Normal) Range: 0-40 [...] Glucose, Serum 100 mg/dL (Abnormal) Range: 65-99 46-Usn-706145:17 CBC WITH MANUAL DIFF Comments: PATIENT WAS FASTINGPERFORMED BY: [facility] [id number] Information: [id number] (89628) Immature Grans (Abs) 0.0 {x10E3/uL} (Normal) Range: [...] (Normal) Range: 4.0-10.5 :17 Vitamin D Hydroxy (67797) Comments: PATIENT WAS FASTINGPERFORMED BY: [facility]Select [facility] [id number] Vitamin D, 25-Hydroxy 15.2 ng/mL (Abnormal) Range: 30.0-100.0 Comments: Vitamin D deficiency has been defined by the [place] of[facility] Centercine and an Endocrine Society practice guideline as alevel of serum 25-OH vitamin D less than 20 ng/mL (1,2).The Endocrine Society went on to further define vitamin Dinsufficiency as a level between 21 and 29 ng/mL (2).1. IOM ([place] of Medicine). 2010. Dietary reference intakes for calcium and D. [place]: The National Academies Press.2. Catie MF, Karon ACEVEDO, Myron KESSLER, et al. Evaluation, treatment, and prevention of vitamin D deficiency: an Endocrine Society clinical practice guideline. JCEM. 2010; 96(7):1911-30. 85-Ccm-937368:46 CK, Total+Isoenzymes, Serum Comments: PATIENT NOT FASTINGPERFORMED BY: Cuff-ProtectAtlantiCare [facility], [facility] CampusLfabvp3123 [facility] [id number] CK-BB 0 % (Normal) CK-MB 0 % (Normal) Range: 0-3 Macro Type 1 0 % (Normal) CK-MM 100 % (Normal) Range: 97-100 Macro Type 2 0 % (Normal) Creatine Kinase,Total,Serum 82 U/L (Normal) Range: 24-173 24-Wkm-851469:00 Urinalysis, Office (36943) UA - BILIRUBIN Negative (Normal) UA - BLOOD Negative (Normal) UA - GLUCOSE Negative (Normal) UA - KETONES Negative mg/dL (Normal) UA - LEUKOCYTE ESTERASE Negative (Normal) UA - NITRITE Negative (Normal) UA - PH 5.0 (Normal) UA - PROTEIN Negative mg/dL (Normal) UA - SPECIFIC GRAVITY 1.025 (Normal) URINE UROBILINGN MICHAEL TIMED Normal mg/dL (Normal) 91-Ulx-576124:49 HgA1C , Office (42276) HgA1C , Office 6.4 % (Normal) Range: 4.6 - 7.1 98-Jol-185379:49 Blood Glucose , Office (69541) Blood Glucose , Office 186 (Normal) 66-Ipw-967805:14 Metabolic Panel, Basic Comments: PATIENT NOT FASTINGPERFORMED BY: [employer] Ppwkzw9719 [facility] [id number] Information: [id number] (35892) Calcium, Serum 9.4 mg/dL (Normal) Range: 8.7-10.2 [...] Glucose, Serum 202 mg/dL (Abnormal) Range: 65-99 31-Ufb-02009:45 Urinalysis, Office (62570) UA - BILIRUBIN Small (Normal) UA - BLOOD Negative (Normal) UA - GLUCOSE Negative (Normal) UA - KETONES Small mg/dL (Normal) UA - LEUKOCYTE ESTERASE Negative (Normal) UA - NITRITE Negative (Normal) UA - PH 5.0 (Normal) UA - PROTEIN Negative mg/dL (Normal) UA - SPECIFIC GRAVITY 1.025 (Normal) URINE UROBILINGN MICHAEL TIMED Normal mg/dL (Normal) 1-Cmu-011332:50 URINE SHANI CULTURE-MICHAEL COL Comments: PATIENT NOT FASTINGPERFORMED BY: LabCoAtlantiCare [facility], [facility] CampusZdzrxn7251 [facility] [id number] Information: SRC:UR [id number] COUNT (64639) Result 1 ECV (Normal) Comments: Escherichia coli, [...] S Urine Final report (Normal) Culture,Comprehensiv e 1-Akg-252402:27 Urinalysis, Office (74508) UA - BILIRUBIN Small (Normal) UA - BLOOD Hemolyzed Large (Normal) UA - GLUCOSE Negative (Normal) UA - KETONES Negative mg/dL (Normal) UA - LEUKOCYTE ESTERASE Small (Normal) UA - NITRITE Negative (Normal) UA - PH 6.0 (Normal) UA - PROTEIN 300 mg/dL (Normal) UA - SPECIFIC GRAVITY 1.025 (Normal) URINE UROBILINGN MICHAEL TIMED Normal mg/dL (Normal) 96-Lde-696375:03 CALCIFIDIOL (98935) VIT D Comments: PATIENT NOT FASTINGPERFORMED BY: DAVID [facility] [place] [place] [id number] Information: [id number] 25 Vitamin D, 25-Hydroxy 28.0 ng/mL (Abnormal) Range: 32.0-100.0 Comments: Effective January 26, 2011 Vitamin D, 25-Hydroxy reference intervals will be changing to 30-100. .Recent studies consider the lower li lucio of 32.0 ng/mL to be athreshold for optimal health.Francisco Javier FOSTER. J Nutr. 2004;135(2):317-22. 04-Gyv-716272:09 KNEE,4 OR MORE VIEWS Radiology Report See [...] 10/03/10 1324 Sign by: Ross Saxena MD 37-Znk-74040:00 KNEE,4 OR MORE VIEWS Radiology Report See [...] the knee. Dictated on 10/02/10 1409 by Adam Saxena MDrieleTranscribed on 10/03/10 1324 by ITS IMPORTSign by Ross Saxena MD on 10/03/10 1325 Sign by: Ross Saxena MD 94-Dgi-70635:00 RHEUMATOID FACTOR-QUANT Comments: PATIENT NOT FASTINGPERFORMED BY: LabStyle InnovationsD[facility] Hospital [id number] BY: Cuff-ProtectGina [place]ille [id number] (25181) RA Latex Turbid. 8.6 {IU/mL} (Normal) Range: 0.0-13.9 :00 PARATHORMONE (62166) Comments: PATIENT NOT FASTINGPERFORMED BY: [employer]70 ImmunotEGGin [place] [id number] BY: [employer] [id number] PTH, Intact 23 pg/mL (Normal) Range: 15-65 :00 CALCIUM SERUM (83025) Comments: PATIENT NOT FASTINGPERFORMED BY: [facility] It70 ImmunotEGGDuke Raleigh Hospital [id number] BY: [place] [id number] Calcium, Serum 9.4 mg/dL (Normal) Range: 8.7-10.2 CCP Antibodies IgG/IgA 3 {units} (Normal) Comments: PATIENT NOT FASTINGPERFORMED BY: [employer]70 [facility] FluentialD[facility] Hospital [id number] BY: [employer] [id number] :00 Range: 0-19 Comments: Negative <20 Weak positive 20 - 39 Moderate positive 40 - 59 Strong positive >59 :15 STEVE DIR SEMI-QL STEVE DIRECT 33 AU/mL (Normal) :15 ANTI JO1 ANTI ABIGAIL 7 AU/mL (Normal) :15 C-REACTIVE PROT 3.34 [...] {uIU/mL} (Normal) Range: 0.358-3.74 :15 VIT D,25 74829 13.3 ng/mL (Abnormal) Comments: appt 09/29/10 Range: 32.0-100.0 Comments: Recent studies consider the lower limit of 32.0 ng/mL to dory threshold for optimal health.Francisco Javier FOSTER. J Nutr. 2004;135(2):317-22.Performed at: [address] Director: Hamida Boyer MD, Phone: [phone] 12-Ylb-89690:20 HEPATOBILIARY IMAGING Radiology Report See Note (Normal) [...] [employer]. Dictated on 05/08 03/18 0509 by Adriana Saxena MDscribed on 06/05/10 1346 by ITS IMPORTSign by Ross Saxena MD on 06/05/10 134 Sign by: Ross Saxena MD :51 GALLBLADDER Radiology Report See Note (Normal) Comments: [...] 1015 Sign by: ADRIAN OCASIO MD H.PYLORI [id number] < 0.9 U/mL Range: 0.0-0.8 3:08 (Normal) Comments: Negative <0.9 Indeterminate 0.9 - 1.0 Positive >1.0Performed at: CB - [facility] Fcrvdk08 [address] [facility], [place], [place] [address] Director: Hamida Boyer MD, Phone: [phone] 77-Dhy-115558:21 FECAL OCCULT- Tubes sent home (12872) FECAL OCCULT HGB ASSAY, QUAL, 1-3 SIMULTANEOU negative (Normal) 11-Sep-20088:22 THYROID IMAGING ONLY Radiology Report See Note (Normal) Comments: Exam Number: [id number] THYROID SCAN AND UPTAKE The patient was [...] on August. Reported By: KEVIN YUAN M.D. 80-Dkn-712839:05 THYROID Radiology Report See Note (Normal) Comments: Exam Number: [id number] CLINICAL:52-year-old female with nodules ULTRASOUND THYROID COMPARISON:None. [...] Report See Note (Normal) Comments: Exam Number: [id number] CLINICAL:52-year-old female with swollen areas at base of neck, anteriorly. Possible supraclavicular masses. History of swelling in the supraclavicular regions for 6 days which is not present in the typing section chief, but swells later in the day. No [...] further evaluation. Reported By: DONTAE ESPINAL M.D. 61-Edt-644909:47 UPPER EXT/JT ONLY (ROUTINE) Radiology Report See Note (Normal) Comments: Exam Number: [id number] MRI OF THE RIGHT SHOULDER WITHOUT CONTRAST. [...] subacromial fat. Reported By: EMELI COLEMAN M.D. 3-Jzb-653341:03 SHOULDER,MIN 2 VIEWS (MT) Radiology Report See Note (Normal) Comments: Exam Number: [id number] RIGHT SHOULDER, 4 VIEWS CLINICAL STATEMENTPain. PRIOR STUDIESNone. No acute fracture, joint dislocation or AC joint separation is shown. Joint spaces are maintained. No significa nt spurring or pathologiccalcifications. No suspicious bone lesions. Right lung apex isclear. IMPRESSIONNegative right shoulder. Reported By: LESLI CURIEL M.D. 60-Cjf-676030:15 GASTRIC EMPTYING STUDY Radiology Report See Note (Normal) Comments: Exam Number: [id number] NUCLEAR MEDICINE GASTRIC EMPTYING STUDY SOLID PHASE [...] II, controlled, with no complications : Reviewed [employer] Area Supervisor Letter Indication: Diabetes mellitus type II, controlled, [...] mellitus, well controlled Abscess, abdomen : Reviewed [employer] Store Area Supervisor Letter Indication: Abscess, abdomen Type II diabetes mellitus, well controlled : Eprescribed prescriptions (G8553) Indication: Type II diabetes mellitus, well controlled Abscess, abdomen : Reviewed [employer] Store Area Supervisor Letter- dr [facility] [...] : Follow up in 2 weeks with [facility] for diabetic teaching Indication: Other specified abnormal [...] disease) Planned Observations Rapid Strep Test, Office (59399)Indication: Sore throat On: 00-Wdr-275621:31 Request SED RATE ERYTHROCYTE (82820)Indication: Abscess, abdomen On: 16-Dec-2015 Request BACT CULTURE ANY-ANAEROBIC (23526)Indication: Abscess, abdomen On: 13-Dec-20157:42 Request CALCIFIDIOL (50216) VIT D 25Indication: Vitamin D deficiency, unspecified On: 25-Qbh-694490:30 Request CPK MB FRACTION (85034)Indication: Chest pain at rest On: 4-Zip-021763:30 Request CREATINE KINASE TOTAL (79152)Indication: Chest pain at rest On: 7-Ned-297589:30 Request Troponin I (79836)Indication: Chest pain On: 81-Owv-078530:19 Request CPK MB FRACTION (09528)Indication: Chest pain On: 86-Xlv-525405:19 Request CREATINE KINASE TOTAL (05378)Indication: Chest pain On: 60-Aus-296706:19 Request C-Reactive Protein (98431)Indication: Chest pain On: 09-Sjr-761384:19 Request Vitamin D Hydroxy (73945)Indication: Vitamin D deficiency, unspecified On: 57-Sah-33267:00 Request TSH (69529)Indication: Diabetes mellitus type II, controlled, with no complications On: 05-Yeu-03616:59 Request URINALYSIS, W/ MICRO (64425)Indication: Diabetes mellitus type II, controlled, with no complications On: 76-Ggn-69402:59 Request MICROALBUMIN: CREATININE RATIO (39818) AND (29279)Indication: Diabetes mellitus type II, controlled, with no complications On: :59 Request METABOLIC PANEL, COMPREHENSIVE (66738)Indication: Diabetes mellitus type II, controlled, with no complications On: 91-Mvu-06438:59 Request LIPID PANEL (76646)Indication: Hypercholesteremia On: :59 Request CBC W/AUTO DIFF WBC (45034)Indication: Diabetes mellitus type II, controlled, with no complications On: :59 Request Blood Glucose , Office (32161)Indication: Diabetes mellitus type II, controlled, with no complications On: 32-Dku-14138:51 Request Lipid Panel (28456)Indication: Hypercholesteremia On: 32-Xft-944609:10 Request HEPATIC FUNCTION PANEL (05872)Indication: Hypercholesteremia On: 48-Csw-819063:10 Request LIPID PANEL (57501)Indication: Hypercholesteremia On: 64-Ldz-70047:48 Request CPK TOTAL & ISOENZYMES (52093)Indication: Epigastric pain On: 25-Pfy-579549:33 Request Urinalysis, Office (42302)Indication: Dysuria On: 0-Xng-940748:01 Request CCP ANTIBODY (52648)Indication: Pain in joint, unspecified site On: 96-Kdd-58499:51 Request STEVE (ANTINUCLEAR ANTIBODY) (24833)Indication: Myalgia On: 73-Edr-677698:24 Request CALCIFIDIOL (39927) VIT D 25Indication: Myalgia On: :20 Request TSH (70126)Indication: Myalgia On: :20 Request SED RATE ERYTHROCYTE (38752)Indication: Myalgia On: :20 Request STEVE (ANTINUCLEAR ANTIBODY) (82249)Indication: Myalgia On: 07-Svp-875803:20 Request Anti-Abigail-1 (38504)Indication: Myalgia On: :20 Request Creatine Kinase Total (52177)Indication: Myalgia On: 98-Ehc-177458:19 Request C-Reactive Protein (35281)Indication: Myalgia On: 81-Wbr-731135:19 Request HELICOBACTER PYLORI ANTIBODY (02938)Indication: Epigastric pain On: 16-Ngn-927157:21 Request Planned Procedures B 12 Injection, 1000 mcg On: 24-Jan-2018 Intent (J3420)By: Tammy Shaw Comments: lot:[id number]:July 2019site/route: L dltdamt: 1mlJasmin, CCMA B 12 Injection, 1000 mcg On: 05-Jan-2018 Intent (J3420)By: Leticia Pugh DO Comments: lot: [id number]: ite/route: R del/IMamt: 1mLVIS signed when applicableCRISTINO Caseytaya ISAACS Leticia B 12 Injection, 1000 mcg On: 09-Dec-2017 Intent (J3420)By: Leticia Pugh DO Comments: Vitamin B12 1000 mcg injectionLot--[id number]--jan 2019L Delt IMpt tolerated wellSUSI, BUSINESS COMPUTERS TEACHER Lexy DO Leticia B 12 Injection, 1000 mcg On: 26-Nov-2017 Intent (J3420)By: Tammy Shaw Comments: lot:[id number]:jan 2019site/route:L deltoid amt:1ml 1,000mcg/mlJasmin, CCMA B 12 Injection, 1000 mcg On: 15-Nov-2017 Intent (J3420)By: Leticia Pugh DO Comments: lot: [id number]: 01/24site/route: L del/IMamt: 1mLVIS signed when applicableChelsCRISTINO mikeon [place] ISAACSeen INJECTION, VITAMIN B-12 On: 27-Oct-2017 Intent CYANOCOBALAMIN, UP TO 1000 MCG Comments: lot:[id number]:rte:IM right deltoid dose:1ml given by:fozia Overton LPN (Special Coverage Instructions Apply. See CIM: 45-4 and MCM: 2049) (J3420)By: Visit, Nurse B 12 Injection, 1000 mcg On: 15-Oct-2017 Intent (J3420)By: Visit, Nurse Comments: lot:[id number]:05/2019rte:IM left arm dose:1ml given by:fozia GALLEGOS signedER, BUSINESS COMPUTERS TEACHER B 12 Injection, 1000 mcg On: 30-Sep-2017 Intent (J3420)By: Visit, Nurse Comments: [id number], 79532fhat dltd, IMCM, INSPECTOR WATCH TRAIN B 12 Injection, 1000 mcg On: 16-Sep-2017 Intent (J3420)By: Rolando Calderon Comments: Vitamin b12 1000mcg injection lot:[id number]:05/2018L DELT IMpt tolerated well MSMITH,BUSINESS COMPUTERS TEACHER B 12 Injection, 1000 mcg On: 02-Sep-2017 Intent (J3420)By: Visit, Nurse Comments: 1 ml given rt arm lot [id number] EXP 05/24 B 12 Injection, 1000 mcg On: 19-Aug-2017 Intent (J3420)By: Rolando Calderon Comments: Vitamin b12 1000mcg injection lot:[id number]:12/2018L DELT IMpt tolerated well MSMITH,BUSINESS COMPUTERS TEACHER B 12 Injection, 1000 mcg On: 06-Aug-2017 Intent (J3420)By: Leticia Pugh DO Comments: vitamin b12 1000mcg injectionlot: [id number]: 12/2018L DELT IMpt tolerated wellAD BUSINESS COMPUTERS TEACHER Leticia Pugh DO B 12 Injection, 1000 mcg On: 22-Jul-2017 Intent (J3420)By: Leticia Pugh DO Comments: Vitamin b12 1000mcg injection lot:[id number]:12/2018R DELT IMpt tolerated well MSMITH,BUSINESS COMPUTERS TEACHER Leticia Pugh DO B 12 Injection, 1000 mcg On: 09-Jul-2017 Intent (J3420)By: Leticia Pugh DO Comments: Vitamin b12 1000mcg injection lot:[id number]:12/2018L DELT IMpt tolerated well MSMITH,BUSINESS COMPUTERS TEACHER Leticia Pugh DO B 12 Injection, 1000 mcg On: 24-Jun-2017 Intent (J3420)By: Leticia Pugh DO Comments: vitamin b12 1000mcg injectionlot: [id number]: 12/2018L DELT IMpt tolerated wellAD BUSINESS COMPUTERS TEACHER Leticia Pugh DO B 12 Injection, 1000 mcg On: 11-Jun-2017 Intent (J3420)By: Christoph CHOPRA Tanvi Mary Comments: lot [id number] 07/2018rt dgyc6096 mcgas, BUSINESS COMPUTERS TEACHER B 12 Injection, 1000 mcg On: 28-May-2017 Intent (J3420)By: Visit, Nurse Comments: [id number] dltd, IM Toradol Injection, 30 mg On: 28-May-2017 Intent (J1885)By: Visit, Nurse Comments: 47047na9/2019R hip, IM30mg/2 unitsMLONG, BUSINESS COMPUTERS TEACHER Toradol Injection, 30 mg On: 21-May-2017 Intent (J1885)By: Leticia Pugh DO Comments: toradol 30mg injectionlot: [id number]: 10/2018L GMpt tolerated wellAD BUSINESS COMPUTERS TEACHER Leticia Pugh DO X-RAY OF SACROILIAC JOINT On: 21-May-2017 Intent (51614)By: Leticia Pugh DO, DO, Kathleen B 12 Injection, 1000 mcg On: 13-May-2017 Intent (J3420)By: Visit, Nurse Comments: [id number] dltd, iMMEGAN, BUSINESS COMPUTERS TEACHER B 12 Injection, 1000 mcg On: 29-Apr-2017 Intent (J3420)By: Leticia Pugh DO Comments: vitamin b12 1000mcg injectionlot: [id number]: 07/2018L DELT IMpt tolerated wellAD BUSINESS COMPUTERS TEACHER Carole Pugh DOhleen B 12 Injection, 1000 mcg On: 16-Apr-2017 Intent (J3420)By: Yamilex Duffy Comments: vitamin b12 1000mcg injectionlot: [id number]: 07/2018L DELT IMpt tolerated wellAD BUSINESS COMPUTERS TEACHER B 12 Injection, 1000 mcg On: 01-Apr-2017 Intent (J3420)By: Leticia Pugh DO Comments: vitamin b12 1000mcg injectionlot: [id number]: 07/2019L DELT IMpt tolerated wellAD BUSINESS COMPUTERS TEACHER Lexy DO, Leticia B 12 Injection, 1000 mcg On: 18-Mar-2017 Intent (J3420)By: Leticia Pugh DO Comments: Lot:[id number]:07/2018Dose:1mlRoute:IMSite:l arm Given By:LATANYA signed Lexy DO Leticia B 12 Injection, 1000 mcg On: 04-Mar-2017 Intent (J3420)By: Leticia Pugh DO Lexy DO, Leticia B 12 Injection, 1000 mcg On: 15-Feb-2017 Intent (J3420)By: Tanvi Hawthorne CNP Radiology - Toe(s) - LeftBy: On: 15-Feb-2017 Intent Tanvi Hawthorne CNP Comments: send to Dr Kebede B 12 Injection, 1000 mcg On: 18-Jan-2017 Intent (J3420)By: Leticia Pugh DO Comments: vitamin b12 1000mcg injectionlot: [id number]: 04/2018L DELT IMpt tolerated wellAD BUSINESS COMPUTERS TEACHER Lexy DO, Leticia B 12 Injection, 1000 mcg On: 01-Jan-2017 Intent (J3420)By: Leticia Pugh DO Comments: lot: [id number]: 04/26site/route: L del/IMamt: 1mLVIS signed when applicableCRISTINO Casey Lexy DO, Leticia B 12 Injection, 1000 mcg On: 18-Dec-2016 Intent (J3420)By: Leticia Pugh DO Comments: b12 1000mcg lot [id number]: 10/2017L Delt IMpt tolerated wellAD BUSINESS COMPUTERS TEACHER Lexy DO Leticia B 12 Injection, 1000 mcg On: 04-Dec-2016 Intent (J3420)By: Leticia Pugh DO Comments: Lot:[id number]:10/23Dose:1mlRoute:IMSite:l armGiven By:LATANYA signed Lexy DO Leticia B 12 Injection, 1000 mcg On: 20-Nov-2016 Intent (J3420)By: Leticia Pugh DO Comments: Lot:[id number]:10/23Dose:1mlRoute:IMSite:l arm Given By:LATANYA signed Lexy DO Leticia B 12 Injection, 1000 mcg On: 06-Nov-2016 Intent (J3420)By: Leticia Pugh DO Comments: lot: [id number]: ite/route: L del/IMamt: 1mLVIS signed when applicableChelsea, INSPECTOR WATCH TRAIN Lexy DO, Leticia B 12 Injection, 1000 mcg On: 23-Oct-2016 Intent (J3420)By: Visit, Nurse Comments: [id number] DltdDarius lpn B 12 Injection, 1000 mcg On: 08-Oct-2016 Intent (J3420)By: Leticia Pugh DO Comments: lot: [id number]: 18site/route: L del/IMamt: 1mLVIS signed when applicableCRISTINO Casey Lexy DO, Leticia B 12 Injection, 1000 mcg On: 17-Sep-2016 Intent (J3420)By: Visit, Nurse Comments: see flowsheet 1ml CRISTINO Solis B 12 Injection, 1000 mcg On: 04-Sep-2016 Intent (J3420)By: Leticia Pugh DO Comments: lot: [id number]: ite/route: R del/IMamt: 1mLVIS signed when applicableDANIEL KelleyN Lexy DO, Leticia B 12 Injection, 1000 mcg On: 24-Aug-2016 Intent (J3420)By: Leticia Pugh DO Comments: Lot:[id number]:11/23Dose:1mlRoute:IMSite:l armGiven By:LATANYA signed Lexy DO, Leticia B 12 Injection, 1000 mcg On: 19-May-2016 Intent (J3420)By: Tanvi Hawthorne CNP Comments: Lot:[id number]:09/2017Dose:1mlRoute:IMSite:l armGiven By:LATANYA signed Wax CurettesBy: Tanvi Hawthorne CNP On: 19-May-2016 Intent Ear Irrigation (57108)By: Christoph On: 19-May-2016 Intent Tanvi CHOPRA B 12 Injection, 1000 mcg On: 08-Apr-2016 Intent (J3420)By: Leticia Pugh DO Comments: Lot:615Exp:06/23Dose:1mlRoute:IMSite:l arm Given By:LATANYA signed Lexy DO, Leticia B 12 Injection, 1000 mcg On: 20-Mar-2016 Intent (J3420)By: Leticia Pugh DO Comments: lot: [id number]: ite/route: L del/IMamt: 1mLVIS signed when applicableChelsCRISTINO mike Lexy DO, Leticia B 12 Injection, 1000 mcg On: 05-Mar-2016 Intent (J3420)By: Leticia Pugh DO Comments: B12lot:6202exp:ite:rt deltroute:imdose:1mlD.JEANMARIE Ray Leticia Pugh DO Radiology - Chest- PA and LatBy: On: 24-Feb-2016 Intent Lexy DO Leticia Lexy DO, Leticia B 12 Injection, 1000 mcg On: 29-Jan-2016 Intent (J3420)By: Leticia Pguh DO Comments: B12lot:6185exp:ite:rt deltroute:IMdose:1mlD.JEANMARIE Ray Lexy DO, Leticia B 12 Injection, 1000 mcg On: 17-Jan-2016 Intent (J3420)By: Leticia Pugh DO Comments: Lot:[id number]:06/23Dose:1mlRoute:IMSite:l armGiven By:JKMVIS signed Lexy DO, Leticia B 12 Injection, 1000 mcg On: 19-Dec-2015 Intent (J3420)By: Leticia Pugh DO Comments: [id number] lot# exp4/18 left deltiod Leticia Pugh DO CAT SCAN OF ABDOMEN ([id number])By: On: 12-Dec-2015 Intent Lexy DOLeticia Lexy DO, Leticia B 12 Injection, 1000 mcg On: 06-Dec-2015 Intent (J3420)By: Leticia Pugh DO Comments: B12lot:6185exp:ite:lt deltroute:IMdose:1mlD.JEANMARIE Ray Leticia Pugh DO Rocephin Injection, 2 Gram On: 04-Dec-2015 Intent ([id number])By: Tammy Ortez DO Comments: lot: [id number]: 03/08/18site/route: RGM and LGM/IMamt: 2GVIS signed when applicableChelscee INSPECTOR WATCH TRAIN B 12 Injection, 1000 mcg On: 25-Nov-2015 Intent ([id number])By: Leticia Pugh DO Comments: Lot:615Exp:06/23Dose:1mlRoute:IMSite:l armGiven By:MLVIS signed Leticia Pugh DO B 12 Injection, 1000 mcg On: 08-Nov-2015 Intent (J3420)By: Leticia Pugh DO Comments: 1000 mcglot 17107/18left dltdIMas, BUSINESS COMPUTERS TEACHER Leticia Pugh DO B 12 Injection, 1000 mcg On: 22-Oct-2015 Intent (J3420)By: Visit, Nurse Comments: 92468/181mlLdltdML, BUSINESS COMPUTERS TEACHER B 12 Injection, 1000 mcg On: 03-Oct-2015 Intent (J3420)By: Henri Ray Comments: B12lot:6155exp:ite:rt deltroute:IMdose:1mlD.JEANMARIE Ray B 12 Injection, 1000 mcg On: 20-Sep-2015 Intent (J3420)By: Danika Caputo MD Comments: Lot:[id number]:07/23Dose:1mlRoute:IMSite:l armGiven By:JKARELYVIS signed B 12 Injection, 1000 mcg On: 05-Sep-2015 Intent (J3420)By: Leticia Pugh DO Comments: B12lot:5200exp:07/22site:rt glutroute:imdose:1mlD.JEANMARIE Ray DO, Kathleen TD VACCINE ADULT (43036)By: On: 04-Apr-2015 Intent Henri Ray TDAP VACCINE >7 IM ([id number])By: On: 04-Apr-2015 Intent Henri Ray Comments: Tdaplot:LI3LYths:01/24/17site:lt deltoidroute:ImDEMICk, [place] B 12 Injection, 1000 mcg On: 04-Apr-2015 Intent (J3420)By: Henri Ray Comments: B12lot:5310exp:11/22site: rt deltroute:VXypyf8xyCXIVRH, [place] B 12 Injection, 1000 mcg On: 25-Feb-2015 Intent (J3420)By: Henri Ray Comments: B12lot:[id number]:4/17site: rt delroute:IMdose:1mlDESHA B 12 Injection, 1000 mcg On: 28-Jan-2015 Intent (J3420)By: Leticia Pugh DO Comments: Lot:[id number]:06/22Dose:1mlRoute:IMSite:l armGiven By JETHRO signed Lexy DO Leticia B 12 Injection, 1000 mcg On: 01-Jan-2015 Intent (J3420)By: Leticia Pugh DO Comments: Lot:[id number]:06/22Dose:1mlRoute:IMSite:l armGiven By:GINETTEVIS signed Lexy DO, Leticia B 12 Injection, 1000 mcg On: 03-Dec-2014 Intent (J3420)By: Leticia Pugh DO Comments: lot: [id number]: 05/22site/route: L del/IMamt: 0.5mLVIS signed when applicableCRISTINO Casey Lexy DO, Leticia B 12 Injection, 1000 mcg On: 13-Sep-2014 Intent (J3420)By: Leticia Pugh DO Comments: Lot:[id number]:11.16Route:IMSite:R deltoidDose: 1 mLgiven by: CRISTINO Mathew DO, Kathleen B 12 Injection, 1000 mcg On: 05-Sep-2014 Intent (J3420)By: Leticia Pugh DO Comments: Lot:[id number]:3.16Route:IMSite:R deltoidDose: 1 mLgiven by: CRISTINO Mathew DO, Kathleen EKG ([id number])By: Lexy ISAACS, On: 05-Sep-2014 Intent Leticia Reza DO Comments: nsr no acute chg B 12 Injection, 1000 mcg On: 10-Aug-2014 Intent (J3420)By: Leticia Pugh DO Comments: Lot:[id number]:05/21Dose:1mlRoute:IMSite:l armGiven By:GINETTEVIS signed Lexy DO Leticia B 12 Injection, 1000 mcg On: 09-Jul-2014 Intent (J3420)By: Leticia Pugh DO Comments: lot [id number] 3/16location L armroute imgiven by - msmith VIS and/or ABN signed Leticia Pugh DO B 12 Injection, 1000 mcg On: 06-Jun-2014 Intent (J3420)By: Leticia Pugh DO Comments: Lot:0AExp:05/21Dose:1mlRoute:IMSite:l armGiven By:JKMVIS signed Carole Pugh DOhleen B 12 Injection, 1000 mcg On: 30-May-2014 Intent (J3420)By: Leticia Pugh DO Comments: Lot:[id number]:05/2015Dose:1mlRoute:IMSite:l armGiven By:CMVIS signed Leticia Pugh DO B 12 Injection, 1000 mcg On: 23-May-2014 Intent (J3420)By: Leticia Pugh DO Comments: given in R dltd, Allie Leticia Pugh DO B 12 Injection, 1000 mcg On: 17-May-2014 Intent (J3420)By: Visit, Nurse Comments: [id number] Dltd, IMMegan, LPN1ml MRI - Brain (IV Contrast On: 15-May-2014 Intent Needed)By: Leticia Pugh DO, DO, Kathleen MRI - Cervical SpineBy: Lexy On: 15-May-2014 Intent Leticia ISAACS DO, Kathleen Radiology - Cervical SpineBy: On: 11-Apr-2014 Intent Leticia Pugh DO, DO, Kathleen Radiology - ChestBy: Christoph CHOPRA, On: 29-Jan-2014 Intent Tanvi Mary UGI (With air contrast if On: 29-Jan-2014 Intent necessary)By: Tanvi Hawthorne CNP Stress Echo with TreadmillBy: On: 29-Jan-2014 Intent Tanvi Hawthorne CNP Echo CompleteBy: Tanvi Hawthorne CNP On: 29-Jan-2014 Intent E EKG ([id number])By: Lexy ISAACS, On: 30-Nov-2013 Intent Leticia Reza DO Comments: nsr no acute chg SPECIMEN HANDLING/TRANSPORT On: 20-Nov-2013 Intent ([id number])By: Ciesa TILE EDGER, Shey PNEUM VAC ADLT/IMUMNOSPR, On: 24-Nov-2012 Intent SBC/INTRM ([id number])By: Lexy ISAACS, Comments: lot: [id number]: 09/24/13site/route: L deltoid/IMamt: 0.5mLVIS signed when applicableChelsea, INSPECTOR WATCH TRAIN Leticia Lexy DO, Leticia Ultrasound - ThyroidBy: Lexy On: 24-Nov-2012 Intent DO, Leticia Lexy DO, Leticia IMMUNIZ ADMNIN, 1 VAC, SNGL/COMBO On: 24-Nov-2012 Intent ([id number])By: Lexy DO, Leticia Lexy DO, Leticia Eprescribed prescriptions On: 24-Nov-2012 Intent (G8553)By: Carmela Chery EKG ([id number])By: Yennifer Loya On: 15-Aug-2012 Intent ARAVIND Comments: nsr no acute chg Eprescribed prescriptions On: 15-Aug-2012 Intent (G8553)By: Yennifer Loya LPN Eprescribed prescriptions On: 16-May-2012 Intent (G8553)By: Lexy ISAACS, Leticia Lexy DO, Leticia Eprescribed prescriptions On: 15-Feb-2012 Intent (G8553)By: Yennifer Loya LPN EKG ([id number])By: Lexy ISAACS, On: 24-Sep-2011 Intent Leticia Lexy DO, Leticia Comments: nsr no acute chg Radiology - Lumbar SpineBy: On: 24-Sep-2011 Intent Lexy DO, Leticia Lexy DO, Leticia SPECIMEN HANDLING/TRANSPORT On: 27-Jan-2011 Intent ([id number])By: Enid Hart LPN VAC, SPLIT, >3 YEARS, On: 17-Dec-2010 Intent INTRAMUSC ([id number])By: Lexy ISAACS, Comments: pt refused Leticia Lexy DO, Leticia Radiology - Knee - RightBy: On: 29-Sep-2010 Intent Lexy DO, Leticia Lexy DO, Leticia Radiology - Knee - LeftBy: Lexy On: 29-Sep-2010 Intent DO, Leticia Lexy DO, Leticia Eprescribed prescriptions On: 29-Sep-2010 Intent (G8553)By: Leticia Pugh DO, DO, Leticia Doppler Ultrasound OtherBy: On: 15-Sep-2010 Intent Lexy ISAACS, Leticia Pugh DO, Comments: both legs-- calf pain and one calf bigger than other Leticia Nuclear Medicine - HIDA w/CPKBy: On: 29-May-2010 Intent Mast Dori MORRISON Comments: hida with cck Ultrasound - GallbladderBy: On: 19-May-2010 Intent Lexy ISAACS, Leticia Pugh DO, Leticia Nuclear Medicine - ThyroidBy: On: 27-Aug-2008 Intent Christoph TILE EDGER, Shey CT - ChestBy: Patito VIDALES, Danika Baer On: 07-Aug-2008 Intent Comments: ATTENTION SUPRACLAAVICULAR AREA MRI - Shoulder(s) - RightBy: On: 31-May-2008 Intent Leticia Pugh DO, DO, Leticia Radiology - Shoulder - RightBy: On: 14-May-2008 Intent Lexy ISAACS, Leticia Pugh DO, Leticia EKG ([id number])By: Lexy ISAACS, On: 18-May-2007 Intent Leticia Reza [...] MCG/ML Injection Solution Ordered: 04-Dec-2016 Pending Lexy DOLeticia Lexy DO, Leticia Vitamin B-12 1000 MCG/ML Injection Solution Ordered: 18-Dec-2016 Pending Lexy DO, Leticia Lexy DO, Leticia Vitamin B-12 1000 MCG/ML Injection Solution Ordered: 01-Jan-2017 Pending Lexy DO, Leticia Lexy DO, Leticia Vitamin B-12 1000 MCG/ML Injection Solution Ordered: 18-Jan-2017 Pending Lexy DOCaroleLeticia Lexy DO, Leticia Vitamin B-12 1000 MCG/ML Injection Solution Ordered: 15-Feb-2017 Pending Ciesa TILE EDGER, Shey Vitamin B-12 1000 MCG/ML Injection Solution Ordered: 04-Mar-2017 Pending Lexy DO, Leticia Lexy DO, Leticia Vitamin B-12 1000 MCG/ML Injection Solution Ordered: 18-Mar-2017 Pending Lexy DO, Leticia Lexy DO, Leticia Vitamin B-12 1000 MCG/ML Injection Solution Ordered: 01-Apr-2017 Pending Lexy DO, Leticia Leyx DO, Leticia Vitamin B-12 1000 MCG/ML Injection Solution Ordered: 16-Apr-2017 Pending Yamilex Duffy Vitamin B-12 1000 MCG/ML Injection Solution Ordered: 29-Apr-2017 Pending Lexy DO, Leticia Lexy DO, Leticia Vitamin B-12 1000 MCG/ML Injection Solution Ordered: 13-May-2017 Pending Visit, Nurse Vitamin B-12 1000 MCG/ML Injection Solution Ordered: 28-May-2017 Pending Visit, Nurse Vitamin B-12 1000 MCG/ML Injection Solution Ordered: 11-Jun-2017 Pending Christoph CHOPRA, Tanvi Mary Vitamin B-12 1000 MCG/ML Injection [...] 1000 MCG/ML Injection Solution Ordered: 26-Nov-2017 Pending GraviusDesirein Vitamin B-12 1000 MCG/ML Injection Solution Ordered: [...] MCG/ML Injection Solution Ordered: 25-Feb-2015 Pending Emick, Appling Vitamin B-12 1000 MCG/ML Injection Solution Ordered: 04-Apr-2015 Pending Emick, [place] Vitamin B-12 1000 MCG/ML Injection Solution Ordered: 05-Sep-2015 Pending Lexy DO, Leticia Lexy DO, Leticia Vitamin B-12 1000 MCG/ML Injection Solution Ordered: 20-Sep-2015 Pending Danika Caputo MD Vitamin B-12 1000 MCG/ML Injection Solution Ordered: 03-Oct-2015 Pending Emick, [place] Vitamin B-12 1000 MCG/ML Injection Solution Ordered: [...] Injection Solution Ordered: 24-Jan-2018 Pending Tammy Shaw Instructions Name Dates Details [...] Advance Directives Name Dates Details Immunization Registry [place] - Effective on Effective: 17-Nov-201711/17/2017. Expiration date unspecified Encounters Office Visit On: 24-Jan-2018 11:30 Encounter Reason: [...] Note for Urinary problems: [facility] at [facility] had urine negEncounter Diagnosis: BMI 32.0-32.9,adult, [...] for Tdap vaccination (Renamed from Need for nhrnvitbkf-hdnrhke-xmthczdht (Tdap) vaccine, adult/adolescent) End: 04-Apr-2015 15:25 Comprehensive [...] [ADDITIONAL REASON] Follow up tests - Date: (6. and 5). Encounter Diagnosis: PRE-OPERATIVE EXAMINATION, UNSPECIFIED (V72.84), Vitamin [...]
--- OUTSIDE RECORDS SUMMARY | 2018-04-04 15:56 | XMS RPT_ITS | Continuity of Care Document ---
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 tinnitis clinic at [facility] >pt to look into - Status: [...] days Quantity: 1 {box(s)} Refills: 3 Ordered:28-Oct-2011 Cahna Jeewll Start : 28-Oct-2011 Active Norvasc 5 MG Oral Tablet 1 (one) Tablet Tablet qd for 0 days Quantity: 30 {Tablet} Refills: 3 Ordered:19-Aug-2016 Shari Pugh DO, DO, Kathleen Start : 19-Aug-2016 Active [employer] Thyroid 30 MG Oral Tablet 1 (one) Tablet Tablet daily as directed for 0 days Quantity: 30 {Tablet} Refills: 5 Ordered:13-May-2017 Shari Pugh DO, DO, Kathleen Start : 04-Mar-2017 Active Pen [place] 31G X 6 MM Miscellaneous 1 Misc [...] Quantity: 2 {Tablet} Refills: 0 Ordered:13-Dec-2014 Allie Caruos LPN Start : 23-Oct-2014 End : 13-Dec-2014 Inactive DOXEPIN HCL, 100MG (Oral Capsule) 1 Capsule qhs for 0 days Quantity: 30 {Capsule} Refills: 1 Ordered:17-Dec-2010 Yennifer Loya LPN Start : 17-Nov-2010 End : 17-Dec-2010 Inactive DRISDOL, 13092JDTN (Oral Capsule) 1 Capsule 2 xweek for [...] Quantity: 30 {Tablet} Refills: 0 Ordered:15-Feb-2012 Yennifer Loay LPN Start : 24-Sep-2011 End : 15-Feb-2012 [...] 09-Oct-2011 End : 14-Oct-2011 Inactive Comments:twenty ZOSTAVAX, 53265UPL/0.65ML (Subcutaneous Solution Reconstituted) 1 For Solution x1 [...] 17-Nov-2010 End : 17-Nov-2010 Discontinued Comments:diarrhea ERGOCALCIFEROL, 22249NZSH (Oral Capsule) 1 (one) Capsule q week [...] for Tdap vaccination (Renamed from Need for mwfhtiadsh-bpgfmdk-durxykmyh (Tdap) vaccine, adult/adolescent) (Z23, V06.1) Status: Inactive [...] w/ Contrast Result: Comments: See Note; NOTES: [facility] Cardiovascular Services [address] [place] [address] Stress Test Echo W/Contrast MR#: [id number] Acct: [id number] Name: RADHA RAMOS Rep #: [id number] : 1955 62 From: Marcus Sánchez MD Primary Care: Leticia Pugh DO Status: REG CLI Ordering Dr: Larry Ngo [employer]ER-C Sex: F C Stress Results Protocol: Stress [...] Dictated: 12/14/17 1343 Date Transcribed: 12/14/17 1521 Teller Head: Signed 10-Dec-2017 PT D/C Summary (1) Result: Comments: See Note; NOTES: [facility] Physical Therapy [place] [address] [facility] [place] [address] Fax [facility] MR#: [id number] Acct: [id number] Name: RADHA RAMOS Rep #: [id number] [...] please feel free to call me at [phone]. T elton you for the referral of this patient. Sincerely, Morgan Barnes PT, <Electronically signed by Morgan Barnes PT, Cert. T, [facility]> 12/10/17 0758 CC: Leticia Pugh DO; Gloria KNAPP Presh JOSSELINE Signed 07-Dec-2017 Cardiology Visit Report Result: Comments: See Note; NOTES: [place] [facility] [address] [place] [address] OFFICE VISIT Date of Service: 12/07/17 MR#: [id number] Acct: [id number] Name: RADHA RAMOS Rep #: [id number] : 1955 Provider: DEMETRICE Ngo Age/Sex: 62/F Location: [facility] Status: Signed HPI HPI Details: RADHA RAMOS, [...] by Larry Ngo NP-C> Date Larry Ngo [employer]-C Cosigner Signature: Date (if applicable) CC: Leticia Pugh DO 07-Dec-2017 12 Lead EKG performed by [facility] Result: Comments: See Note; NOTES: [facility] [address] [place] [address] 12 Lead EKG performed by [facility] 12/07/17910 MR#: [id number] Acct: [id number] Name: RADHA RAMOS Rep #: [id number] : 1955 62 From: Larry SPERAC Attending Dr: Larry Ngo, [employer] BE[employer] CLEANER Status: DEP AMB Ordering Dr: Larry NgoC Date: 12/07/17 Location: [facility] Sex: F C Admitted: ORD ER #: [id number] [facility]/12 Lead EKG performed by [facility] 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 - Nonspecific T-abnormality. BNORMAL 12/07/17 1257 <Electronically signed by Larry Ngo [employer] CLE[employer]ER-C&amp ;#62; Date Larry KNAPP CC: Leticia Pugh DO Date Dictated: 12/07/17910 Date Transcribed: 12/07/17910 Teller Head: ISABEL Signed 07-Dec-2017 12 Lead EKG performed by [facility] Result: Comments: See Note; NOTES: [facility] [address] [place] [address] 12 Lead EKG performed by [facility] 12/07/17910 MR#: [id number] Acct: [id number] Name: RADHA RAMOS Rep #: [id number] : 1955 62 From: Larry KNAPP Attending Dr: Larry Ngo NP Status: DEP AMB Ordering Dr: Larry Ngo Date: 12/07/17 Location: [facility] Sex: F C Admitted: ORD ER #: [id number] [facility]/12 Lead EKG performed by [facility] ECG Report Interpretation Sinus Rhythm Poor R wave progressionElectronically signed on 12/08/2017 at 17:44 by Marcus Sánchez Software Version 8610 12/08/17 1746 Date Larry KNAPP CC: Leitcia Pugh DO Date Dictated: 12/07/17910 Date Transcribed: 12/07/17910 Teller Head: ISABEL Signed 28-Oct-2017 Inital Evaluation (1) - PT Result: Comments: See Note; NOTES: [facility] Physical Therapy [address] [place], [place] [address] Fax REHABILITATION SERVICES INITIAL EVALUATION MR#: [id number] Acct: [id number] Name: RADHA RAMOS Rep #: [id number] [...] : No effect Lumbar Standing: Right Side Coleman - Symptoms During Testing: Increases Lumbar Standing: Right Side Coleman - Symptoms After Testing: No worse Lumbar Standing: Left Side Coleman - Mechanical Resp onse: No effect Lumbar Standing: Left Side Coleman - Symptoms During Testing: Increases Lumbar Standing: Left Side Coleman - Symptoms After Testing: No worse Lumbar [...] to be FAXED BACK to us at [phone] for Medicare purposes. Please let me know if there are questions or concerns regarding this plan of care. Physician Signature: Date: <Electronically signed by Morgan Barnes PT, Ce rt. T, OCS> 10/28/17 1010 CC: Gloria Xie; Leticia Pguh DO JOSSELINE Signed For Medicare only, by signing this I certify the plan of care. Physicians Signature Date 26-Aug-2017 Downtime Report Result: Comments: See Note; NOTES: [facility] Medical Records Department [address] [place] [address] Downtime Report MR#: [id number] Acct: [id number] Name: RADHA RAMOS Rep #: [id number] : 1955 61 From: Herrera Hennessy PCP: Leticia Pugh DO Status: REG CLI This patient was seen during an EMR downtime August 09, 2017 - August 16, 2017. This patient may have a combination of paper and electronic documentation or all paper documentation. All documentation is viewable within the e-chart portion of [facility] for each patient visit. 21-Jul-2017 L/S Spine Min 4 Views Result: Comments: See Note; NOTES: [facility] Imaging Services [address] [place] [address] L/S Spine Min 4 Views MR#: [id number] Acct: [id number] Name: RADHA RAMOS Rep #: [id number] : 1955 F 61 From: Durga Peñaloza MD PCP: Leticia Pugh DO Status: REG CLI Study: L/S Spine Min 4 Views Date of Exam: 07/21/17 Exam# [id number] Ordering Dr: Joey Greer MD STUDY: X [...] , CC: Joey Greer; Leticia Pugh DO Teller Head: Signed 25-Jun-2017 Cardiology Visit Report Result: Comments: See Note; NOTES: [facility] [address] [place] [address] OFFICE VISIT Date of Service: 06/24/17 MR#: [id number] Acct: [id number] Name: RADHA RAMOS Rep #: [id number] : 1955 Provider: Nimco Vasquez Age/Sex: 61/F Location: [facility] Status: Signed HPI HPI Details: RADHA RAMOS, [...] Pressure 138/82 Intake Visit Reasons: 6 M Hansard Reporter Required: No Accompanied by: none Is patient [...] More Views Result: Comments: See Note; NOTES: [facility] Imaging Services [address] [place] [address] S-I Jts 3 or More Views MR#: [id number] Acct: [id number] Name: RADHA RAMOS Rep #: [id number] : 1955 F 61 From: Frederick Pemberton MD PCP: Leticia Puhg DO Status: REG CLI Study: S-I Jts 3 or More Views Date of Exam: 05/21/17 Exam# [id number] Ordering Dr: Leticia Pugh DO STUD Y: [...] Service support , CC: Leticia Pugh DO Teller Head: Signed 17-Mar-2017 Abdomen/Pelvis without Cont Result: Comments: See Note; NOTES: [facility] Imaging Services [address] [place] [address] Abdomen/Pelvis without Cont MR#: [id number] Acct: [id number] Name: RADHA RAMOS Rep #: [id number] : 1955 F 61 From: Rahel Salazar MD PCP: Leticia Pugh DO Status: REG CLI Study: Abdomen/Pelvis without Cont Date of Exam: 03/17/17 Exam# [id number] Ordering Dr: Casimiro Saravia MD STUDY: CT [...] at 16:04 EST Tel , Service support [phone], CC: Casimiro Saravia MD; Leticia Pugh DO Teller Head: Signed 15-Feb-2017 Toe(s) Min 2 Views Result: Comments: See Note; NOTES: [facility] Imaging Services [address] [place] [address] Toe(s) Min 2 Views MR#: [id number] Acct: [id number] Name: RADHA RAMOS Rep #: [id number] : 1955 F 61 From: Juan Henriquez MD PCP: Leticia Pugh DO Status: REG CLI Study: Toe(s) Min 2 Views Date of Exam: 02/15/17 Exam# [id number] Ordering Dr: Tanvi Hawthorne STUDY: X-RAY LEFT [...] , Service support , CC: Tanvi Hawthorne [employer] CLE[employer]ER; Leticia Pugh DO Teller Head: Signed 22-Dec-2016 Stress Test Echo w/o Contrast Result: Comments: See Note; NOTES: [facility] Cardiovascular Services [address] [place] [address] Stress Test Echo w/o Contrast MR#: [id number] Acct: [id number] Name: RADHA RAMOS Rep #: [id number] : 1955 61 From: Marcus Sánchez MD [...] Dictated: 12/22/16 1307 Date Transcribed: 12/22/16 170 Teller Head: Signed 19-Nov-2016 12 Lead Electrocardiogram Result: Comments: See Note; NOTES: [facility] Cardiovascular Services [address] [place] [address] 12 Lead EKG 11/14/16156 MR#: [id number] Acct: [id number] Name: RADHA RAMOS Rep #: [id number] : 1955 61 From: Guevara Casanova MD [...] by SAMANTHA LI MD, GUEVARA (1080), video news editor JUNE HENNESSY (57) on 11/16/2016 1:29:52 PM Referred By: GAL Confirmed By:GUEVARA CASANOVA MD 11/16/16 1329 Date Guevara Casanova MD CC: Leticia Pugh DO Date Dictated: 11/14/16156 Date Transcribed: 11/14/16156 Teller Head: Signed 14-Nov-2016 Discharge Instruction Result: Comments: See Note; NOTES: [facility] Medical Records Department [address] [place] [address] Discharge Instruction 11/14/16 0345 MR#: [id number] Acct: [id number] Name: JEANMARIE RAMOS Rep #: [id number] : 1955 61 From: Roscoe Diaz MD [...] your Primary Care Provider. Call [facility] ([phone]) or report to the closest Emergency Room. Call 911 if necessary. 11/14/16 0637 <Electronically signed by Roscoe Diaz MD> Date Roscoe Maher Cosigner Signature (If Indicated): Date CC: Leticia Pugh DO 14-Nov-2016 Emergency Department Summary Result: Comments: See Note; NOTES: [facility] Medical Records Department [address] [place] [address] Emergency Department Summary 11/14/16 0343 MR#: [id number] Acct: [id number] Name: RADHA RAMOS Rep #: [id number] : 1955 61 From: Roscoe Diaz MD [...] your Primary Care Provider. Call [facility] ([phone]) or report to the closest Emergency Room. Call 911 if necessary. 11/14/16 0636 <Electronically kristin d by Roscoe Diaz MD> Date Roscoe Diaz MD Cosigner Signature (If Indicated): Date CC: Leticia Pugh 14-Nov-2016 Chest 1 View (Portable) Result: Comments: See Note; NOTES: [facility] Imaging Services [address] [place] [address] Chest 1 View (Portable) MR#: [id number] Acct: [id number] Name: RADHA RAMOS Rep #: [id number] : 1955 F 61 From: Nelson Coronado PCP: Leticia Pugh DO Status: REG ER Study: Chest 1 View (Portable) Date of Exam: 11/14/16 Exam# [id number] Ordering Dr: Roscoe Diaz MD STUDY: X- [...] CC: Leticia Pugh DO; Roscoe Diaz MD Teller Head: Signed 13-Nov-2016 US Thyroid Biopsy Result: Comments: See Note; NOTES: [facility] Imaging Services [address] [place] [address] US Thyroid Biopsy MR#: [id number] Acct: [id number] Name: RADHA RAMOS Rep #: [id number]: 1955 F 61 From: Ross Saxena MD PCP: Leticia Pugh DO Status: REG CLI Study: US Thyroid Biopsy Date of Exam: 11/13/16 Exam# [id number] Ordering Dr: James Casey MD STUDY: THYROID [...] Ross Saxena MD at 12:24 EDT Tel [phone], Service support , CC: James Casey MD; Leticia Pugh DO Teller Head: Signed 24-Sep-2016 Thyroid Result: Comments: See Note; NOTES: [facility] Imaging Services [address] [place] [address] [address] 4d Thyroid MR#: [id number] Acct: [id number] Name: RADHA RAMOS Rep #: [id number] : 1955 F 60 From: Kalpana Sharp MD PCP: Leticia Pugh DO Status: REG CLI Study: Thyroid Date of Exam: 09/24/16 Exam# [id number] Ordering Dr: Lety Ball [employer]ER-C STUDY: THYROID ULTRASOUND REASON FOR EXAM: Female, [...] , Service support , CC: Lety Ball [employer] CLE[employer]ER; Leticia Pugh DO Teller Head: Signed 11-Aug-2016 SCREENING MAMM (CAD), BILAT Result: Comments: See Note; NOTES: [facility] Imaging Services [address] [place] [address] Verdana 4d SCREENING MAMM (CAD), BILAT MR#: [id number] Acct: [id number] Name: RADHA RAMOS Rep #: [id number] : 1955 F 60 From: Ross Saxena MD PCP: Leticia Pugh DO Status: [facility] Study: SCREENING MAMM (CAD), BILAT Date of Exam: 08/11/16 Exam# [id number] Ordering Dr: Zhane Martinez MD MAMMOGRAPHY - [...] delay biopsy of a clinically suspicious abnormality. [id number] Electronically Signed: Ross Saxena MD at 13:32 EDT Tel [phone], Service support , CC: Zhane Angeles MD; Leticia Pugh DO Teller Head: Signed 17-Jul-2016 Upper GI w/BA Swallow Result: Comments: See Note; NOTES: [facility] Imaging Services [address] [place] [address] Verdana 4d Upper GI w/BA Swallow MR#: [id number] Acct: [id number] Name: RADHA RAMOS Rep #: [id number] : 1955 F 60 From: Coreen Mata MD PCP: Leticia Pugh DO Status: REG CLI Study: Upper GI w/BA Swallow Date of Exam: 07/17/16 Exam# [id number] Ordering Dr: James Garrido MD CLINICAL HISTORY: [...] , CC: Leticia Pugh DO; James Garrido Teller Head: Signed 27-Feb-2016 Chest PA and Lateral Result: Comments: See Note; NOTES: [facility] Imaging Services [address] [place] [address] [address] Chest PA and Lateral MR#: [id number] Acct: [id number] Name: RADHA RAMOS Rep #: [id number] : 1955 F 60 From: Segun Loomis MD PCP: Leticia Pugh DO Status: REG CLI Study: Chest PA and Lateral Date of Exam: 02/27/16 Exam# [id number] Ordering Dr: Leticia Pugh DO STUD Y: [...] at 15:10 EST Tel , Service support [phone], CC: Leticia Pugh DO Teller Head: Signed 24-Feb-2016 Wound Heal Ctr Progress Note Result: Comments: See Note; NOTES: [facility] [address] [place] [address] [facility] Progress Note 02/24/16 1305 MR#: [id number] Acct: [id number] Name: Keyur RAMOS Rep #: [id number] : 1955 60 From: Ruslan Sesay MD [...] mellitus macular edema: D Lisa betes mellitus senior care insulin use: with senior care use Laterality: L Chronic kidney disease stage: C Qualified Code(s): E11.9 - Type 2 diabetes mellitus without complications; Z79.4 - half-way (curre nt) use of insulin Code(s): E11.9 [...] Date Recorded By Document 02/24/16 12:35 CHRIS [id number] 02/24/16 12:38 CHRIS 02/24/16 12:35 Wound Center [...] Date Recorded By Document 02/24/16 12:38 CHRIS [id number] 02/24/16 12:39 CHRIS 02/24/16 12:38 Wound Center [...] after Cleansing No -Bioengineered Tissue No -Cetacaine Gower No -Bleedin g Controlled with NA -Treatment [...] Recorded Date Recorded By Document 02/24/16 12:38 [facility] 993 02/24/16 12:39 CHRIS 02/24/16 12:38 Wound [...] ter Cleansing No -Bioengineered Tissue No -Cetacaine Gower No -Bleeding Controlled with NA -Treatment Response [...] Progress Note Result: Comments: See Note; NOTES: 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 Code(s): E11.9 [...] Date Recorded By Document 02/10/16 13:01 DL [id number] 02/10/16 13:07 DL 02/10/16 13:01 Wound Center Nurse 1 [Ulcer Assessment] 1-abdomen -Current Size (cm) - Length 0 -Current Size (cm) - Width 0 -Current Size (cm) - Depth 0 -Total Square Cm 0 -Photo Take n Yes -Exudate Amt None Present (0 %) -Wound Margin Flat AND Intact -Granulation Amt Large (67-100%) -Granulation Quality Vandergrift -Necrosis Amt None Present (0 %) -Structure [...] Date Recorded By Document 02/10/16 13:15 MW [id number] 02/10/16 13:17 MW 02/10/16 13:15 Wound Center Nurse 2 [P rocedure/Treatment] -Time 13:16 -Correct Patient Yes -Correct Side, Site, Position Yes -Correct Procedure Yes -Procedure Performed No -Wound/Ulcer Outcome Not Healed -Ulcer Cleansing Not Cleansed -Foul Odor after Cleansing No -Bioengineered Tissue No -Cetacaine Gower No -Topical Lidocaine (%) 4 -Lidocaine (ml) [...] Date Recorded By Document 02/10/16 13:15 MW [id number] 02/10/16 13:17 MW 02/10/16 13:15 Wound Center Nurse 2 1-abdomen -Time 13:16 - Correct Patient Yes -Correct Side, Site, Posi tion Yes -Correct Procedure Yes -Procedure Performed No -Wound/Ulcer Outcome Not Healed -Ulcer Cleansing Not Cleansed -Foul Odor after Cleansing No - Bioengineered Tissue No -Cetacaine Gower No -Topical Lidocaine (%) 4 -Lidocaine (ml) [...] Progress Note Result: Comments: See Note; NOTES: [facility] Wound Healing [facility] [place] [address] Wound Heal Ctr Progress Note 02/03/16 1336 MR#: [id number] Acct: [id number] Name: Keyur RAMOS Rep #: [id number] : 1955 60 From: Ruslan Sesay MD [...] Diabetes mellitus macular edema: D Diabetes mellitus manager terminal insulin use: with senior care use Latera lity: L Chronic kidney disease [...] Recorded Date Recorded By Document 13:02 DL [id number] 02/03/16 13:09 DL 02/03/16 13:02 Wound Center Nurse 1 [Ulcer Assessment] 1-abdomen -Current Size (cm) - Length 0.5 -Current Size (cm) - Width 2.4 -Current Size (cm) - Depth 0.3 -Tota l Square Cm 1.20 -Photo Taken No -Exudate Amt Small (1-33%) -Exudate Type Serosanguineous -Wound Margin Distinct, Outline Attached -Granulation Amt Large (67-100%) - Granulation Quality Vandergrift -Necrosis Am t Small (1-33%) -Necrotic Tissue [...] Date Recorded By Document 02/03/16 13:28 CHRIS [id number] 02/03/16 13:32 CHRIS 02/03/16 13:28 Wound Center [...] Cleansing No -Bioengi neered Tissue No -Cetacaine Gower No -Topical Lidocaine (%) 4 -Lidocaine (ml) [...] Date Recorded By Document 02/03/16 13:28 CHRIS [id number] 02/03/16 13:32 JS 02/03/16 13:28 Wound Center [...] after Cleansing No -Bioengineered Tissue No -Cetacaine Gower No -Topical Lidocaine (%) 4 -Lidocaine (ml) [...] Progress Note Result: Comments: See Note; NOTES: [facility] W[facility] [address] [place] [address] Wound Heal Ctr Progress Note 01/27/16 1333 MR#: [id number] Acct: [id number] Name: Keyur RAMOS Rep #: [id number] : 1955 60 From: Ruslan Sesay MD [...] Diabetes mellitus macular edema: D Diabetes mellitus manager terminal insulin use: with senior care use Laterali ty: L Chronic kidney disease [...] Recorded Date Recorded By Document 01/27/16 12:44 [id number] 01/27/16 12:54 01/27/16 12:44 Wound Center Nurse [...] Date Recorded By Document 01/27/16 13:23 MW [id number] 01/27/16 13:31 MW 01/27/16 13:23 Wound Center Nurse 2 [Procedure/Treatment] 1-abdomen -Time 13 :24 -Correct Patient Yes -Correct Side, Site, Position Yes -Correct Procedure Yes -Procedure Performed No -Wound/Ulcer Outcome Not Healed -Ulcer Cleansing Rinsed/ Irrigated with Saline -Foul Odor after Cleansing No -Bioengineered Tissue No -Cetacaine Gower No -Bleeding Controlled with NA [See Physician [...] Date Recorded By Document 01/27/16 13:23 MW [id number] 01/27/16 1 3:31 MW 01/27/16 13:23 Wound Center Nurse 2 1-abdomen -Time 13:24 -Correct Patient Yes -Correct Side, Site, Position Yes -Correct Procedure Yes -Procedure Performed No -Wound/Ulcer Outcome Not Healed - Ulcer Cleansing Rinsed/ Irrigated with Saline -Foul Odor after Cleansing No -Bioengineered Tissue No -Cetacaine Gower No -Bleeding Controlled with NA No debridement [...] Progress Note Result: Comments: See Note; NOTES: [facility] W[facility] [address] [place] [address] Wound Heal Ctr Progress Note 01/20/16 1521 MR#: [id number] Acct: [id number] Name: RADHA RAMOS Rep #: [id number] : 1955 60 From: Ruslan Sesay MD [...] Diabetes mellitus complication status: without complication Diabetes [facility] senior care insulin use: with manager terminal use Qualifier Code : (E11.9) Type 2 [...] Record ed By Document 01/20/16 14:33 DL [id number] 01/20/16 14:36 DL 01/20/16 14:33 Wound Center [...] Recorded Date Recorded By Document 01/20/16 15:06 [id number] 01/20/16 15:07 01/20/16 15:06 Wound Center Nurse 2 [Procedure/Treatment] -Time 15:06 -Correct Patient Yes -Correct Side, Site, Position Yes -Correct Procedure Yes -Procedure Performed No -Wound/Ulcer Outcome Not Healed -Ulcer Cleansing Rinsed/ Irrigated with Saline -Foul Odor after Cleansing No -Bioengineered Tissue No - Cetacaine Gower No [See Physician Procedure note for Specifics] [...] Recorded Date Recorded By Document 01/20/16 15:06 [id number] 01/20/16 15:07 01/20/16 15:06 Wound Center Nurse 2 1-abdomen -Time 15:06 - Correct Patient Yes -Correct Side, Site, Po sition Yes -Correct Procedure Yes -Procedure Performed No -Wound/Ulcer Outcome Not Healed -Ulcer Cleansing Rinsed/ Irrigated with Saline -Foul Odor after Cleansing No -Bioengineered Tissue No -Cetacaine Gower No No debridement was completed today Assessment/Plan [...] Progress Note Result: Comments: See Note; NOTES: [facility] W[facility] [address] [place] [address] Wound Heal Ctr Progress Note 01/06/16 1307 MR#: [id number] Acct: [id number] Name: RADHA RAMOS Rep #: [id number] : 1955 60 From: Ruslan Sesay MD PCP: Leticia Pugh DO Status: REG RCR Y Location: WC (1) Abscess of abdominal wall Status: Acute Current Visit: Yes Code: L02.2 11 (2) Diabetes mellitus Status: Chronic Current Visit: Yes Qualifiers: Diabetes mellitus type: type 2 Diabetes mellitus complication status: with skin complications Diabetes mellitus complication deta il: with other skin complication Diabetes mellitus senior care insulin use: with senior care use Qualifier Code: (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 Progress of Wound: [...] Date Recorded By Document 01/06/16 12:42 TM [id number] 01/06/16 12:51 01/06/16 12:42 Wound Center Nurse [...] Date Recorded By Document 01/06/16 12:54 DV [id number] 01/06/16 13:00 DV 01/06/16 12:54 Wound Center Nurse 2 [Procedure/Treatment] -Time 12:59 -Correct Patient Yes -Correct Side, Site, Position Yes -Correct Procedure Yes -Procedure Performed No -Wound/Ulcer Outcome Not Healed -Ulcer Cleansing Rinsed/ Irrigated with Saline -Foul Odor after Cleansing No -Bioengineered Tissue No -Cetacaine Gower No -Bleeding Controlled with NA -Treatment Response [...] Date Recorded By Document 01/06/16 12:54 DV [id number] 01/06/16 13:00 DV 01/06/16 12:54 Wound Center Nurse 2 1-abdomen -Time 12:59 -Correct Patient Yes -Correct Side, Site, Position Yes -Tamar ect Procedure Yes -Procedure Performed No -Wound/Ulcer Outcome Not Healed -Ulcer Cleansing Rinsed/ Irrigated with Saline -Foul Odor after Cleansing No - Bioengineered Tissue No -Cetacaine Gower No -Bleed ing Controlled with NA -Treatment Response Procedure Tolerated Well No debridement was completed today Assessment/Plan Active Problems Abscess of abdominal wall (Acute) Wound, open, abdominal wall, anterior (Acute) Diabetes mellitus (Chronic) Assessment: This is a 60-year-old diabetic female who is in her normal state of health until approximately 3 weeks prior to presentation, at [facility] time she developed an abscess on [...] Progress Note Result: Comments: See Note; NOTES: [facility] W[facility] [address] [place] [address] Wound Heal Ctr Progress Note 12/30/15 1625 MR#: [id number] Acct: [id number] Name: RADHA RAMOS Rep #: [id number] : 1955 60 From: Ruslan Sesay MD PCP: Leticia Pugh DO Status: REG RCR Y Location: WC (1) Abscess of abdominal wall Status: Acute Current Visit: Yes Code: L02.2 11 (2) Diabetes mellitus Status: Chronic Current Visit: Yes Qualifiers: Diabetes mellitus type: type 2 Diabetes mellitus complication status: with skin complications Diabetes mellitus complication deta il: with other skin complication Diabetes mellitus senior care insulin use: with senior care use Qualifier Code: (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 Code: E11.9 (3) Hyperlipide grzegorz Status: Chronic Current Visit: No Qualifiers: Hyperlipidemia type: mixed hyperlipidemia Qualifier Code: (E78.2) Mixed hyperlipidemia Code: E78.5 (4) Wound, open, abdominal wall, anterior Status: Ac togiak Current Visit: Yes Qualifiers: Encounter type: subsequent [...] Date Recorded By Document 6 14:19 TM [id number] 12/30/15 14:37 TM 12/30/15 14:19 Wound Center [...] Thickened -Granulation Amt Small (1-33%) -Granulation Quality [place] Red -Slough/Fibrin Yes -Necro sis Amt Small [...] Recorded Date Recorded By Document 12/30/15 16:21 [id number] 12/30/15 16:22 JS 12/30/15 16:21 Wound Center Nurse 2 [P rocedure/Treatment] 1-abdomen -Time 16:21 -Correct Patient Yes -Correct Side, Site, Position Yes -Correct Procedure Yes -Procedure Performed No -Wound/Ulcer Outcome Not Healed -Ulcer Cleansing Rinsed/ I rrigated with Saline -Foul Odor after Cleansing No -Bioengineered Tissue No -Cetacaine Gower No -Bleeding Controlled with NA -Treatment Response [...] Recorded Date Recorded By Document 12/30/15 16:21 [id number] 12/30/15 16:22 12/30/15 16:21 Wound Center Nurse 2 1-abdomen -Time 16:21 -Correct Patient Yes -Correct Side, Site, Position Yes -Correct Procedure Yes -Procedure Performed No -Wound/Ulcer Outcome Not Healed -Ulcer Cleansing Rinsed/ Irrigated with Saline -Foul Odor after Cleansing No -Bioengi neered Tissue No -Cetacaine Gower No -Bleeding Controlled with NA -Treatment Response [...] AND Physical Result: Comments: See Note; NOTES: [facility] [address] [place] [address] Wound Ctr History AND Physical 12/23/15 1708 MR#: [id number] Acct: [id number] Name: RADHA TERRY Rep #: [id number] : 1955 60 From: Ruslan Sesay MD PCP: Leticia Pugh DO Status: REG RCR Y Location: WC (1) Abscess of abdominal wall Status: Acute Current Visit: Yes Code: L02 .211 (2) Diabetes mellitus Status: Chronic Current Visit: Yes Qualifiers: Diabetes mellitus type: type 2 Diabetes mellitus complication status: with skin complications Diabetes mellitus complication de tail: with other skin complication Diabetes mellitus senior care insulin use: with senior care use Qualifier Code: (E11.628) Type 2 diabetes [...] tumor. 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 Lives: Spouse/ Significant Other Smoking Status: [...] Recorded Date Recorded By Document 12/23/15 15:16 [id number] 12/23/15 15:38 12/23/15 15:16 Wound Center Nurse [...] Recorded Date Recorded By Document 12/23/15 16:42 [id number] 12/23/15 16:44 JS 12/23/15 16: 42 Wound Center Nurse 2 [Procedure/Treatment] 1-abdomen -Time 16:42 -Correct Patient Yes -Correct Side, Site, Position Yes -Correct Procedure Yes -Wound/Ulcer Outcome Not Healed -Ulcer Cleansing Rinsed / Irrigated with Saline -Foul Odor after Cleansing No -Bioengineered Tissue No -Cetacaine Gower No -Bleeding Controlled with NA -Treatment Response [...] Recorded Date Recorded By Document 12/23/15 16:42 [id number] 12/23/15 16:44 12/23/15 16:42 Wound Center Nurse 2 1-abdomen -Time 16:42 -Correct Patie nt Yes -Correct Side, Site, Position Yes -Correct Procedure Yes -Wound/Ulcer Outcome Not Healed -Ulcer Cleansing Rinsed/ Irrigated with Saline -Foul Odor after Cleansing No -Bioengineered Tissue No -Cet acaine Gower No -Bleeding Controlled with NA -Treatment Response [...] WITH Contrast Result: Comments: See Note; NOTES: [facility] Imaging Services [address] [place] [address] Verdana 4d Abdomen/Pelvis WITH Contrast MR#: [id number] Acct: [id number] Name: MILO RAMOS Rep #: [id number] : 1955 F 60 From: Jack Hernandez MD PCP: Leticia Pugh DO Status: REG CLI Study: Abdomen/Pelvis WITH Contrast Date of Exam: 12/12/15 Exam# [id number] Ordering Dr: Leticia Pugh DO STUDY: CT [...] MD at 17:46 EDT , Service support [phone], CC: Leticia Pugh DO Teller Head: Signed 25-Oct-2015 Chest WITH Contrast Result: Comments: See Note; NOTES: [facility] Imaging Services [address] [place] [address] Verdana 4d Chest WITH Contrast MR#: [id number] Acct: [id number] Name: RADHA RAMOS Rep #: [id number] : 1955 F 60 From: Emerson Centeno MD PCP: Leticia Pugh DO Status: REG CLI Study: Chest WITH Contrast Date of Exam: 10/25/15 Exam# [id number] Ordering Dr: Marcus Sánchez MD [facility] DY: CT CHEST WITH CONTRAST [...] MD at 21:00 EDT , Service support [phone], CC: Leticia Pugh DO; Marcus Sánchez MD Teller Head: Signed 05-Sep-2015 ELECTROCARDIOGRAM, COMPLETE (ECG) (00261) Comments: nsr no acute chg Result: [MEASUREMENTS ANALYSIS] Date of Test: 09/05/2015 14:41:33; Heart Rate: 82; GA Interval: 152; QRS: 100; QT Interval: 366; Corrected QT Interval (QTc): 404; P Wave [place]: 62; QRS [place]: 42; T Wave [place] : 23; Blood Pressure: 122/82 [ECG DIAGNOSTIC STATEMENTS] Date of Test: 09/05/2015 14:41:33; Summary: Sinus Rhythm WITHIN NORMAL LIMITS 08-Aug-2015 Bilat Scrn Digital AND CAD Result: Comments: See Note; NOTES: [facility] Imaging Services [address] [place] [address] Verdana 4d Bilat Scrn Digital AND CAD MR#: [id number] Acct: [id number] Name: RADHA RAMOS Rep #: [id number] : 1955 F 59 From: Ross Saxena MD PCP: Leticia Pugh DO Status: REG CLI Study: Bilat Scrn Digital AND CAD Date of Exam: 08/08/15 Exam# [id number] [facility] Dr: Zhane Angeles MD MAMMOGRAPHY [...] will be sent to the patient by [facility] within 30 days. Approximately 10% of breast cancers are not detected by mammography. A normal mammogram should not delay biopsy of a clinically suspicious abnormality. [id number] Electron ically Signed: Ross Saxena MD at 10:53 EDT Tel [phone], Service support [phone], CC: Zhane Angeles MD; Leticia Pugh DO Teller Head: Signed 15-Mar-2015 ELECTROCARDIOGRAM, COMPLETE (ECG) (66798) Result: [MEASUREMENTS ANALYSIS] Date of Test: 03/15/2015 11:59:12; Heart Rate: 78; GA Interval: 126; QRS: 100; QT Interval: 380; Corrected QT Interval (QTc): 411; P Wave [place]: 39; QRS [place]: 44; T Wave [place] : 27; Blood Pressure: 126/82 [ECG DIAGNOSTIC STATEMENTS] Date of Test: 03/15/2015 11:59:12; Summary: Sinus Rhythm WITHIN NORMAL LIMITS 13-Feb-2015 PT D/C of Non Returning Pt. Result: Comments: See Note; NOTES: [facility] Physical Therapy [facility]. [address] [place] [address] Fax REHABILITATION SE RVICES DISCHARGE SUMMARY MR#: [id number] Acct: [id number] Name: RADHA RAMOS Rep #: [id number] : 1955 59 From: Morgan Barnes Referring [...] - PT Result: Comments: See Note; NOTES: [facility] Physical Therapy [facility]. [address] [place] [id number] Fax REHABILITATION SERVICES INITIAL EVALUATION MR#: [id number] Acct: [id number] Name: RADHA RAMOS Rep #: [id number] : 1955 59 From: Morgan Barnes Referring Dr.: Joey Kebede DPM Status: REG R Insurance: [facility] Date: DATE OF SERVICE: 11/29/2014 PHYSICIAN: [...] cuff repair. VOCATION: The patient works at [employer]. OBJECTIVE: OBSERVATION OF POSTURE: The patient has [...] exercises. Morgan Barnes, PT T: ADIS JOB: [id number] <Electronically signed by Morgan Barnes > 12/05/14 1319 CC: Signed For Medicare only, by signing this I certify the plan of care. Physicians Signature Date 28-Sep-2014 Discharge Instruction Result: Comments: See Note; NOTES: [facility] Medical Records Department [address] [place] [address] Instructions for Home/Discharge Instructions 09/28/14 1826 MR#: [id number] ct: [id number] Name: RADHA RAMOS Rep #: [id number] : 1955 58 From: Joey Kebede DPM PCP: Leticia Pugh DO Status: REG [facility] Discharge Diet: Light diet - advance as [...] 3 Views Result: Comments: See Note; NOTES: [facility] Imaging Services [address] [place], [place] [address] Radiology Report MR#: [id number] Acct: [id number] Name: RADHA RAMOS Rep #: [id number] : 1955 F 58 From: Rohit Zamarripa MD PCP: Leticia Pugh DO Status: [facility] Study: Foot min 3 Views Date of Exam: 09/28/14 Exam# [id number] Ordering Dr: Joey Kebede DPM STUDY: X-RAY [...] FACR at 20:28 EDT , Service support [phone], RAD/Foot min 3 Views IMPRESSION: Status post osteotomy of the posterior pr ocess of the calcaneus and stabilization with a cannulated screw. Alignment is anatomical and no immediate post surgical complications are seen. Cast is in place. Electronically Signed: Rohit laird MD, FACR at 20:28 EDT , Service support [phone], CC: Joey Kebede DPM; Leticia Pugh DO Teller Head: Signed 28-Sep-2014 Calcaneus min 2 Views Result: Comments: See Note; NOTES: [facility] Imaging Services [address] [place] [address] Radiology Report MR#: [id number] Acct: [id number] Name: RADHA RAMOS Rep #: [id number] : 1955 F 58 From: Rohit Zamarripa MD PCP: Leticia Pugh DO Status: [facility] Study: Calcaneus min 2 Views Date of Exam: 09/28/14 Exam# [id number] Ordering Dr: Joey Kebede DPM Mindy MURPHY: [...] FACR at 20:32 EDT , Service support [phone], RAD/Calcaneus min 2 Views IMPRESSION: Status Post osteotomy of the posterior process of the calcaneus and stabilization with a cannulated screw. Alignment is anatomical and no immediate post surgical complications are seen. Electronically Signed: Rohit Zamarripa MD, FACR at 20:32 EDT , Service support [phone], CC: Joey Kebede DPM; Leticia Pugh DO Teller Head: Signed 27-Aug-2014 Lower Ext Joint Only (Routine) Result: Comments: See Note; NOTES: [facility] Imaging Services [address] [place] [address] MRI Report MR#: [id number] Acct: [id number] Name: RADHA RAMOS Rep #: [id number] : 1955 F 58 From: Rohit Zamarripa MD PCP: Leticia Pugh DO Status: REG CLI Study: Lower Ext Joint Only (Routine) Date of Exam: 08/27/14 Exam# [id number] Ordering Dr: Joey Kebede DPM STUDY: MRI [...] FACR at 17:00 EDT , Service support [phone], Fax CC: Joey Kebede MD; Leticia Pugh DO Teller Head: Signed 27-Aug-2014 Lower Ext Joint Only (Routine) Result: Comments: See Note; NOTES: [facility] Imaging Services [address] [place] [address] MRI Report MR#: [id number] Acct: [id number] Name: RADHA RAMOS Rep #: [id number] : 1955 F 58 From: Rohit Zamarripa MD PCP: Leticia Pugh DO Status: REG CLI Study: Lower Ext Joint Only (Routine) Date of Exam: 08/27/14 Exam# [id number] Ordering Dr: Joey Kebede DPM ADDENDUM by [...] FACR at 14:08 EDT , Service support [phone], 09/17/14 1408 Date cc: Joey Kebede DPM; [...] at 17:00 EDT , Service suppor t [phone], CC: Joey Kebede DPM; Leticia Pugh DO Teller Head: Signed 03-Aug-2014 Bilat Scrn Digital AND CAD Result: Comments: See Note; NOTES: [facility] Imaging Services [address] [place] [address] Breast Imaging Report MR#: [id number] Acct: [id number] Name: RADHA RAMOS Rep #: [id number] : 1955 F 58 From: Ross Saxena MD PCP: Leticia Pugh DO Status: REG CLI Study: Faviola Vincent Digital AND CAD Date of Exam: 08/03/14 Exam# [id number] Ordering Dr: Lelo Angeles MD MAMMOGRAPHY - [...] [facility] Approximately 10% of breast cancers are not detected by mammography. A normal mammogram should not delay biopsy of a clinically suspicious abnormality. Electronically Kristin d: Ross Saxena MD at 13:16 EDT Tel [phone], Service support [phone], CC: Zhane Angeles MD; Leticia Pugh DO Teller Head: Signed 03-Aug-2014 Bilat Scrn Digital AND CAD Result: Comments: See Note; NOTES: [facility] Imaging Services [address] [facility] [place] [address] Breast Imaging Report MR#: [id number] Acct: [id number] Name: RADHA RAMOS Rep #: [id number] : 1955 F 58 From: Ross Saxena MD PCP: Leticia Pugh DO Status: REG CLI Study: Bilat Scrpatricia Digital AND CAD Date of Exam: 08/03/14 Exam# [id number] Ordering Dr: Lelo Angeles MD MAMMOGRAPHY - [...] sent [facility] within 30 days. Approximately 10% of breast cancers are not detected by mammography. A normal mammogram should not delay biopsy of a clinically suspicious abnormality. Electronically Kristin d: Ross Saxena MD at 13:16 EDT Tel [phone], Service support [phone], CC: Zhane Angeles MD; Leticia Pugh DO Teller Head: Signed 03-Aug-2014 Bilat Scrn Digital AND CAD Result: Comments: See Note; NOTES: [facility] Imaging Services [address] [place] [address] Breast Imaging Report MR#: [id number] Acct: [id number] Name: RADHA RAMOS Rep #: [id number] : 1955 F 58 From: Ross Saxena MD PCP: Leticia Pugh DO Status: REG CLI Study: Bilhaley Vincent Digital AND CAD Date of Exam: 08/03/14 Exam# [id number] Ordering Dr: Lelo Angeles MD MAMMOGRAPHY - [...] Ross Saxena MD at 13:16 EDT Tel [phone], Service support [phone], CC: Zhane Angeles MD; Leticia Pugh DO Teller Head: Signed 05-Jul-2014 PT Discharge Summary Result: Comments: See Note; NOTES: [facility] Physical Therapy [facility] [address] [place] [address]. [address] [place] [address] Fax REHABILITATION SERVICES DISCHARGE SUMMARY MR#: [id number] Acct: [id number] Name: RADHA RAMOS Rep #: [id number] : 1955 58 From: Morgan Barnes Referring [...] Sincerely, Morgan Barnes, PT T: ADIS JOB: [id number] <Electronically signed by Morgan Barnes > 07/05/14 1429 CC: Signed 18-May-2014 Brain W/WO Contrast Result: Comments: See Note; NOTES: [facility] Imaging Services [address] [place] [address] MRI Report MR#: [id number] Acct: [id number] Name: RADHA RAMOS Rep #: [id number] D OB: 1955 F 58 From: Yolanda Vitale MD PCP: Leticia Pugh DO Status: REG CLI Study: Brain W/WO Contrast Date of Exam: 05/18/14 Exam# [id number] Ordering Dr: Leticia Pugh DO STUDY: MRI [...] MD at 17:10 EDT , Service support [phone], CC: Leticia Pugh DO Teller Head: Signed 18-May-2014 Spine Cervical (Routine) Result: Comments: See Note; NOTES: [facility] Imaging Services [address] [place] [address] MRI Report MR#: [id number] Acct: [id number] Name: RADHA RAMOS Harsh Rep #: [id number] D OB: 1955 F 58 From: Yolanda Vitale MD PCP: Leticia Pugh DO Status: REG CLI Study: Spine Cervical (Routine) Date of Exam: 05/18/14 Exam# [id number] Ordering Dr: Leticia Pugh DO STUDY: MRI [...] at 22 :30 EDT , Service support [phone], CC: Leticia Pugh DO Teller Head: Signed 20-Apr-2014 Inital Evaluation - PT Result: Comments: See Note; NOTES: [facility] Physical Therapy [address] [place] [address] Fax REHABILITATION SERVICES INITIAL EVALUATION MR#: [id number] Acct: [id number] Name: RADHA RAMOS Rep #: [id number] : 1955 58 From: Morgan Barnes Referring : Leticia Pugh DO Status: REG R Insurance: A [facility] Date: DATE OF SERVICE: 04/17/2014 REFERRING [...] therapy. Most recently, she had been trying healthcare facility administrator, which consist ed of manipulations with some [...] pain. SOCIAL HISTORY: . VOCATION: Works at [employer]. Goals to get rid of pain. OBJECTIVE: [...] for deltoid, biceps, triceps, wrist flexor, extensors. 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 Negative ANR. MOVEMENT LOSS: Protrusion minimal loss with pain end range; flexion min-to- moderate loss; retraction, extension minimal loss; side bending to the right minimal loss; side bend to left is ywt-mm-poorpqqn loss; rotation to the right minimal loss; rotation to the left is cjt-jk-qufcltct loss. Repeated motion, right neck pain. Protrusion, [...] education. Morgan Barnes, PT T: NTS JOB: [id number] <Electronically signed by Morgan Barnes > 04/20/14 0856 CC: Signed For Medicare only, by signing this I certify the plan of care. Physicians Signature Date 11-Apr-2014 Cerv Spine 4 or 5 Views Result: Comments: See Note; NOTES: [facility] Imaging Services [address] [place] [address] Radiology Report MR#: [id number] Acct: [id number] Name: RADHA RAMOS Rep #: [id number] : 1955 F 58 From: Sofia Gamble MD PCP: Leticia Pugh DO Status: REG CLI Study: Cerv Spine 4 or 5 Views Date of Exam: 04/11/14 Exam# [id number] Ordering Dr: Leticia Pugh: X-RAY - CERVICAL [...] MD at 16:35 EST , Service support [phone], RAD/Cerv Spine 4 or 5 Vie ws IMPRESSION: Normal x-ray examination of the visualized cervical spine. Electronically Signed: Sofia Gamble MD at 16:35 EST , Service support [phone], CC: Leticia Pugh DO Teller Head: Signed 30-Mar-2014 Esophagus Only Result: Comments: See Note; NOTES: [facility] Imaging Services [address] [place] [address] Radiology Report MR#: [id number] Acct: [id number] Name: RADHA RAMOS Rep #: [id number] : 1955 F 58 From: Ross Saxena MD PCP: Leticia Pugh DO Status: REG CLI Study: Esophagus Only Date of Exam: 03/30/14 Exam# [id number] Ordering Dr: James Garrido MD STUDY: X-RAY [...] Ross Saxena MD at 9:25 EST Tel [phone], Service support [phone], Fax CC: Leticia Pugh DO; James Garrido Teller Head: Signed 08-Feb-2014 Stress Test Echo w/o Contrast Result: Comments: See Note; NOTES: [facility] Cardiovascular Services [address] [place] [address] STRESS TEST REPORT 02/02/14 1143 MR#: [id number] Acct: [id number] Name: RADHA RAMOS Rep #: [id number] : 1955 58 From: Guevara Casanova MD [...] Dictate d: 02/02/14 1143 Date Transcribed: 02/05/14901 Teller Head: Signed 08-Feb-2014 Echocardiogram Complete Result: Comments: See Note; NOTES: [facility] Cardiovascular Services [address] [place] [address] STRESS TEST REPORT 02/02/14 1143 MR#: [id number] Acct: [id number] Name: RADHA RAMOS Rep #: [id number] : 1955 58 From: Guevara Casanova MD [...] Dictated: 02/02/14 1143 Date Transcribed: 02/05/14 0836 Teller Head: Signed 06-Feb-2014 Upper GI Series Only Result: Comments: See Note; NOTES: [facility] Imaging Services [address] [place] [address] Radiology Report MR#: [id number] Acct: [id number] Name: RADHA RAMOS Rep #: [id number] : 1955 F 58 From: Segun Loomis MD PCP: Leticia Pugh DO Status: REG CLI Study: Upper GI Series Only Date of Exam: 02/06/14 Exam# [id number] Ordering Dr: Tanvi Hawthorne CLINICAL HISTOR Y: [...] MD at 10:55 EST , Service support [phone], RAD/Upper GI Series Only IMPRESSION: Patient shows [...] 2013 at 10:55 EST , Service support [phone], CC: Tanvi Hawthorne; Leticia Pugh DO Teller Head: Signed 05-Feb-2014 Stress Test Echo w/o Contrast Result: Comments: See Note; NOTES: [facility] Cardiovascular Services [address] [place] [address] STRESS TEST REPORT 02/02/14 1143 MR#: [id number] Acct: [id number] Name: RADHA RAMOS Rep #: [id number] : 1955 58 From: Guevara Casanova MD [...] Dictated: 02/02/14 1143 Date Transcribed: 02/05/14 0836 Teller Head: Signed 02-Feb-2014 Chest PA and Lateral Result: Comments: See Note; NOTES: [facility] Imaging Services [address] [place] [address] Radiology Report MR#: [id number] Acct: [id number] Name: RADHA RAMOS Rep #: [id number] : 1955 F 58 From: Martell Price MD PCP: Leticia Pugh DO Status: REG CLI Study: Chest PA and Lateral Date of Exam: 02/02/14 Exam# [id number] Ordering Dr: Tanvi Hawthorne STUDY: X-RAY CHEST [...] at 14:11 EST Tel , Service support [phone], RAD/Chest PA and Lateral IMPRESSION: Normal x-ray examination of the chest. Electronically Signed: Martell Price MD 20/01/28 at 14:11 EST , Service support [phone], CC: Tanvi Casandratran; Leticia Pugh DO Teller Head: Signed 29-Jan-2014 ELECTROCARDIOGRAM, COMPLETE (ECG) ([id number]) Comments: sinus rhythm, similar to 11-19 Result: [MEASUREMENTS ANALYSIS] Date of Test: 01/29/2014 13:47:19; Heart Rate: 86; GA Interval: 136; QRS: 100; QT Interval: 368; Corrected QT Interval (QTc): 413; P Wave [place]: 66; QRS [place]: 41; T Wave [place] : -1; Blood Pressure: 132/74 [ECG DIAGNOSTIC STATEMENTS] Date of Test: 01/29/2014 13:47:19; Summary: Sinus Rhythm WITHIN NORMAL LIMITS 02-Aug-2013 Bilat Scrn Digital & CAD Result: Comments: See Note; NOTES: [facility] Imaging Services [address] [place] [address] Breast Imaging Report MR#: [id number] Acct: [id number] Name: RADHA RAMOS Rep #: [id number] : 1955 F 57 From: Ross Saxena MD PCP: Leticia Pugh DO Status: REG CLI Exam# [id number] Ordering Dr: Zhane Angeles MD MAMMOGRAPHY - [...] be sent to the patient by the [facility] within 30 days. Approximately 10% of breast cancers are not detected by mammography. A normal mammogram should not delay biopsy of a clinically suspicious abnormality. Electronically Signed: Thompson Saxena MD at 10:52 EDT Tel [phone], Service support [phone], CC: Zhane Angeles MD; Leticia Pugh DO Teller Head: Signed Immunization Name Dates Details Influenza (3 [...] kg/m2 Body Surface Area Calculated 1.94 m2 86-Xek-112733:00 Temperature 98.2 f Comments: Method: Oral Pulse [...] 0.00 cm Results Date Description Value Details [id number]-Dcr-854854:10 VITAMIN B-12 (CYANOCOBALAMIN) Comments: PATIENT NOT FASTINGPERFORMED BY: [facility] [id number] [facility] [id number] ([id number]) Vitamin B12 723 pg/mL (Normal) Range: 232-1245 :54 BNP,B-Type NATRIURETIC PEPTIDE Comments: [facility] [id number] [place], [address] B-TYPE CAMILO PEP 38.2 pg/mL (Normal) Range: 0-100 :54 Troponin-I Comments: 'TROP' Serial specimen #1, #2, #3, or #4: [facility] [id number] [place], [id number] TROPONIN-I < 0.015 ng/mL (Normal) Comments: TROPONIN-I EXPECTED VALUES <0.045 Negative 0.045 - 0.590 Consistent with Cardiac Damage > OR = 0.600 Critical Value Not every elevated troponin is indicative of AR. T hesevalues should be used with clinical judgement in examiningthe patient's clinical picture for diagnosis. To establisha diagnosis of AR versus myocardial injury, there must be ademonstrated rise and/ or fall in the troponin values, inaddition to ischemic symptoms, EKG changes, new regionalwall motion abnormality, and/or angiographical evidence. PLEASE NOTE: REFERENCE RANGES EDITED 17:58 Lipid Profile Comments: Order Date: 10/16/16Order Info: [id number] - *Hepatic Function PanelOrder Info: [id number] - *Lipid Profile CC PCPComments: 12 hours fasting, may have water.[facility] [id number] [place], [place], [id number] VLDL 35 mg/dL (Normal) Range: 5-40 LDL [...] Info: 0788-1 - *Hepatic Function PanelOrder Info: [id number] - *Lipid Profile CC PCPComments: 12 hours fasting, may have water.[facility] [address] [place], [id number] D BILI 0.07 mg/dL (Normal) Range: 0.00-0.30 T BILI 0.70 mg/dL (Normal) Range: 0.20-1.00 ALT 47 U/L (Normal) Range: 13-56 Comments: Please note revised ALT reference range rihqbuvid55/28/2018. ALK P 103 U/L (Normal) Range: 45-117 AST 30 U/L (Normal) Range: 15-37 GLOB 3.6 g/dL (Normal) Range: 2.2-4.2 ALB 4.0 g/dL (Normal) Range: 3.2-5.0 T PROT 7.6 g/dL (Normal) Range: 6.4-8.2 81-Xsu-178134:09 Free T3 Comments: [facility] [address] [place], [address] FREE T3 3.2 pg/mL (Normal) Range: 2.18-3.98 74-Nyd-807735:09 T4 Free Direct Comments: [facility] [address] [place], [id number] T4 FREE DIRECT 0.84 ng/dL (Normal) Range: 0.76-1.46 06-Cnt-266827:09 Thyroid Stim Hormone (TSH) Comments: [facility] [address] [place], [address] TSH 1.27 {uIU/mL} (Normal) Range: 0.358-3.74 67-Zaq-053676:04 VITAMIN B-12 (CYANOCOBALAMIN) Comments: PATIENT WAS FASTINGPERFORMED BY: [facility] Uaiwtr7810 [facility] [id number] (25917) Vitamin B12 1049 pg/mL (Normal) Range: 232-1245 01-Kqu-216332:04 CALCIFEDIOL (97723) Comments: PATIENT WAS FASTINGPERFORMED BY: [facility] Hjwycf7666 [facility] [id number] Vitamin D, 25-Hydroxy 17.4 ng/mL (Abnormal) Range: 30.0-100.0 Comments: Vitamin D deficiency has been defined by the [place] of[place]icine and an Endocrine Society practice guideline as alevel of serum 25-OH vitamin D less than 20 ng/mL (1,2).The Endocrine Society went on to further define vitamin Dinsufficiency as a level between 21 and 29 ng/mL (2).1. IOM ([place] of Medicine). 2010. Dietary reference intakes for calcium and D. [place]: The National Academies Press.2. Catie MF, Karon ACEVEDO, Myron KESSLER, et al. Evaluation, treatment, and prevention of vitamin D deficiency: an Endocrine Society clinical practice guideline. JCEM. 2010; 96(7):1911-30. 01-Ewo-737600:08 URINE SHANI CULTURE-IDENTIFICATN Comments: PATIENT NOT FASTINGPERFORMED BY: [facility] Llurpu4767 [facility] [id number] (05484) Antimicrobial MIHEAD (Normal) Comments: S = Susceptible; [...] mL (Abnormal) Urine Final report Culture,Comprehensive (Abnormal) 41-Snr-030159:08 URINALYSIS (61232) Comments: PATIENT NOT FASTINGPERFORMED BY: [facility] Nbqokw8003 [facility] [id number] Information: SRC:UC Microscopic Examination MICNIP (Normal) Comments: Microscopic not indicated and not performed. Nitrite, Urine Negative (Normal) Urobilinogen,Semi-Qn 0.2 mg/dL (Normal) Range: 0.2-1.0 Bilirubin Negative (Normal) Occult Blood Negative (Normal) Ketones Negative (Normal) Glucose Negative (Normal) Protein Negative (Normal) WBC Esterase Negative (Normal) Appearance Clear (Normal) Urine-Color Yellow (Normal) pH 5.0 (Normal) Range: 5.0-7.5 Specific Hammond 1.021 (Normal) Range: 1.005-1.030 :11 Basic Metabolic Profile (BMP) Comments: 'TROP' Serial specimen #1, #2, #3, or #4: [address] [place] [address] [address] [place], [place], [address] GAP 9 (Normal) Range: 5-15 CO2 24.0 [...] A.D.A. criteria. :11 CBC W/Diff, Automated Comments: [facility] [address] [place], [place], [id number] Absolute Lymph 3.23 {X10_3/ul} (Normal) Range: 0.83-4.51 [...] Serial specimen #1, #2, #3, or #4: 1[facility] [address] [place], [address] TROPONIN-I < 0.02 ng/mL (Normal) Comments: TROPONIN-I EXPECTED VALUES <0.05 NEGATIVE 0.06 - 0.59 AT RISK OF AR > OR = 0.60 SUGGEST AR :00 ASP RADIOLOGY (FLUID) See Note (Normal) Comments: [facility] [address] [place], [place], [address] Comments: Patient: RADHA RAMOS : 1955 (61/F) Acct Num: [id number] Phys: Jacinto VIDALES,James Unit Num: [id number] Loc: Specimen: [id number] Received: 11/13/16 - 1243 [...] cytology study. / SVETLANA:brayden 11/13/16 TC:5 CPT: 99293, 88369, 881 72 CYTOLOGY STUDY Slides are reviewed. [...] Order Date: 09/21/16Order Info: [id number]- [id number] - *[facility]6SMraqxalFulton [facility] [address] [place], [address] HGB A1C 6.3 % (Normal) Range: 4.2-6.3 27-Mqp-79216:57 Lipid Profile Comments: Order Date: 10/28/15Interface Comments: 12 hours fasting, may have water.[facility] [address] [place], [id number] VLDL 28 mg/dL (Normal) Range: 5-40 LDL [...] 200-240 mg/dL Borderline >240 mg/dL High Risk 96-Bat-17827:57 Liver Profile Comments: Order Date: 10/28/15Interface Comments: 12 hours fasting, may have water.[facility] [address] [place], [place], [address] D BILI 0.11 mg/dL (Normal) Range: 0.00-0.30 T BILI 0.60 mg/dL (Normal) Range: 0.20-1.00 ALT 34 U/L (Normal) Range: 12-78 ALK P 95 U/L (Normal) Range: 45-117 AST 21 U/L (Normal) Range: 15-37 GLOB 3.2 g/dL (Normal) Range: 2.3-3.5 ALB 4.1 g/dL (Normal) Range: 3.4-5.0 T PROT 7.3 g/dL (Normal) Range: 6.4-8.2 53-Zwp-880390:14 CBC W/Diff, Automated Comments: Order Date: 09/21/16Order Info: [id number] - *CBC with DifferentialComments: Reason:[facility] [address] [place], [place], [id number] Absolute Lymph 2.69 {X10_3/ul} (Normal) Range: 0.83-4.51 [...] 4.2-5.4 WBC 7.3 K/mm3 (Normal) Range: 4.4-11.0 27-Kyb-517303:14 Thyroid Stim Hormone (TSH) Comments: Order Date: 09/21/16Order Info: [id number] - *TSHComments: Reason:[facility] [address] [place], [place], [address] TSH 1.64 {uIU/mL} (Normal) Range: 0.358-3.74 :55 HgA1C , Office (41288) HgA1C , Office 5.8 % (Normal) Range: 4.6 - 7.1 :55 Blood Glucose , Office (76917) Blood Glucose , Office 110 (Normal) 02-Qti-845362:19 THROAT CULTURE (08930) Comments: PATIENT NOT FASTINGPERFORMED BY: [facility] [place] 0053670 [place] [id number] Information: SRC:TH Result 1 RRF (Normal) Comments: Routine respiratory jaylyn Upper Respiratory Culture Final report (Normal) 69-Jza-099374:42 LIPID PANEL (96606) Comments: PATIENT WAS FASTINGPERFORMED BY: [facility] [employer] HospitalZvqwia0818 [facility] [id number] LDL/HDL Ratio 3.4 {ratio_units} (Abnormal) Range: 0.0-3.2 Comments: LDL/HDL Ratio Men Women 1/2 Avg.Risk 1.0 1.5 Av g.Risk 3.6 3.2 2X Avg.Risk 6.2 5.0 3X Avg.Risk 8.0 6.1 LDL Cholesterol Calc 122 mg/dL (Abnormal) Range: 0-99 VLDL Cholesterol Leonel 34 mg/dL (Normal) Range: 5-40 HDL Cholesterol 36 mg/dL (Abnormal) Triglycerides 172 mg/dL (Abnormal) Range: 0-149 Cholesterol, Total 192 mg/dL (Normal) Range: 100-199 65-Hnm-858747:42 CALCIFIDIOL (81781) VIT D 25 Comments: PATIENT WAS FASTINGPERFORMED BY: [facility]CoNewton Medical CenterIrwotn3353 [facility] [id number]; will rview on 07/03 Vitamin D, 25-Hydroxy 23.3 ng/mL (Abnormal) Range: 30.0-100.0 Comments: Vitamin D deficiency has been defined by the [place] of[place]icine and an Endocrine Society practice guideline as alevel of serum 25-OH vitamin D less than 20 ng/mL (1,2).The Endocrine Society went on to further define vitamin Dinsufficiency as a level between 21 and 29 ng/mL (2).1. IOM ([place] of Medicine). 2010. Dietary reference intakes for calcium and D. [place]: The National Academies Press.2. Catie MF, Karon ACEVEDO, Myron KESSLER, et al. Evaluation, treatment, and prevention of vitamin D deficiency: an Endocrine Society clinical practice guideline. JCEM. 2010; 96(7):1911-30. 94-Ipd-706612:09 HgA1C , Office (57375) HgA1C , Office 6.0 % (Normal) Range: 4.6 - 7.1 69-Pqs-034265:09 Blood Glucose , Office (96843) Blood Glucose , Office 113 (Normal) 63-Vjj-235908:21 Microscopic Examination Comments: PATIENT WAS FASTINGPERFORMED BY: [facility]6370 [facility] [id number] Bacteria Few (Normal) Mucus Threads Present (Normal) Epithelial Cells (non renal) 0-10 {/hpf} (Normal) Range: 0 - 10 RBC 0-2 {/hpf} (Normal) Range: 0 - 2 WBC 0-5 {/hpf} (Normal) Range: 0 - 5 89-Lqu-922459:53 PPD (99171) Comments: lot: [id number]: 07/22site/route: L forearm/intradermalamt: 0.1mLVIS signed when applicableChelsea, NURSERY SUPERVISOR SKIN TEST INTRADERMAL TB negative (Normal) :33 LDH (LD) (LACTATE DEHYDROGENASE) Comments: PATIENT NOT FASTINGPERFORMED BY: [facility]6370 [facility] [id number] (89742) LDH 174 [iU]/L (Normal) Range: 119-226 :33 SED RATE ERYTHROCYTE (16547) Comments: PATIENT NOT FASTINGPERFORMED BY: [facility]6370 [facility] [id number] Sedimentation Rate-Westergren 2 mm/h (Normal) Range: 0-40 :33 C-REACTIVE PROTEIN (73835) Comments: PATIENT NOT FASTINGPERFORMED BY: [facility]6370 [facility] [id number] C-Reactive Protein, Quant 1.8 mg/L (Normal) Range: 0.0-4.9 :33 TSH (14310) Comments: PATIENT NOT FASTINGPERFORMED BY: [facility]6370 [facility] [id number] TSH 2.710 {uIU/mL} (Normal) Range: 0.450-4.500 18-Izo-544636:33 METABOLIC PANEL, COMPREHENSIVE Comments: PATIENT NOT FASTINGPERFORMED BY: [facility]6370 [facility] [id number] (41760) ALT (SGPT) 25 [iU]/L (Normal) Range: 0-32 [...] Glucose, Serum 83 mg/dL (Normal) Range: 65-99 95-Aet-348390:33 CBC W/AUTO DIFF WBC (63423) Comments: PATIENT NOT FASTINGPERFORMED BY: [facility] Moerai5739 [facility] [id number] Immature Grans (Abs) 0.0 {x10E3/uL} (Normal) Range: [...] 3.77-5.28 WBC 7.4 {x10E3/uL} (Normal) Range: 3.4-10.8 22-Yec-38972:00 Culture, Deep Wound Comments: [address] [place], [place], [address] CUDW See Note (Normal) Comments: Comments: ABDOMINAL ABCESSGram StainGram Stain No White Blood Cells No organisms seen Wound CulturePossible skin contamination, further Identification and sensitivity will be performed only by physi taye's request. ORGANISM 1: Coag Negative StaphAmount Growth Very Rare Cult, AnaerobicNo anaerobic bacteria isolated. 84-Cov-058452:51 Albumin, Serum Comments: [address] [place], [place], [id number] ALB 4.3 g/dL (Normal) Range: 3.4-5.0 39-Cua-984119:51 Basic Metabolic Profile (BMP) Comments: [address] [place], [address] GAP 6 (Normal) Range: 5-15 [...] :51 CBC-Complete Blood Cnt No Diff Comments: [facility] [address] [place], [address] MPV 9.4 fL (Normal) Range: [...] 4.2-5.4 WBC 5.8 K/mm3 (Normal) Range: 4.4-11.0 62-Mjg-156954:51 Hemoglobin A1c Comments: [facility] [address] [place], [address] HGB A1C 6.1 % (Normal) Range: 4.2-6.3 84-Bgs-422610:51 Prealbumin Comments: [facility] [address] [place], [address] PREALBUMIN 32.4 mg/dL (Normal) Range: 20.0-40.0 95-Jxu-70630:06 Urinalysis, Office (00336) UA - LEUKOCYTE ESTERASE Negative (Normal) UA - NITRITE Negative (Normal) URINE UROBILINGN MICHAEL TIMED Normal mg/dL (Normal) UA - PROTEIN Negative mg/dL (Normal) UA - PH 6.0 (Normal) Comments: 5.5 UA - BLOOD Non Hemolyzed Trace (Normal) UA - SPECIFIC GRAVITY 1.030 (Abnormal) UA - KETONES Negative mg/dL (Normal) UA - BILIRUBIN Negative (Normal) UA - GLUCOSE Negative (Normal) 1-Osf-459509:23 SED RATE ERYTHROCYTE Comments: PATIENT WAS FASTINGPERFORMED BY: [facility] Jmzmgd2422 [facility] [id number] Information: [id number] (92194) Sedimentation Rate-Westergren 2 mm/h (Normal) Range: 0-40 7-Cqe-356309:27 Aerobic Bacterial Culture Comments: PATIENT WAS FASTINGPERFORMED BY: [facility] Wggkky9213 [facility] [id number] Information: [id number] SRC:AB (77250) Result 1 Mixed skin jaylyn (Normal) Aerobic Bacterial Culture Final report (Normal) 5-Fnb-300833:21 Serum Creatinine AND GFR Comments: [facility] [address] [place], [address] EST GFR - AA 73 mL/min (Normal) Comments: GFR Calc EST GFR 60 mL/min (Normal) Comments: Non- GFR Calc CREAT,SERUM 1.00 mg/dL (Normal) Range: 0.55-1.20 Comments: The validity of the calculated GFR AND GFRAA in patients over70 years has not been determined. Clinical correlation isessential. :21 VITAMIN B-12 (CYANOCOBALAMIN) Comments: PATIENT WAS FASTINGPERFORMED BY: [facility] [employer] HospitalPndhug2351 [facility] [id number] (02325) Vitamin B12 738 pg/mL (Normal) Range: 211-946 : TSH (89436) Comments: PATIENT WAS FASTINGPERFORMED BY: [facility] [employer]6370 [facility] [id number] TSH 2.440 {uIU/mL} (Normal) Range: 0.450-4.500 : URINALYSIS, W/ MICRO (97136) Comments: PATIENT WAS FASTINGPERFORMED BY: [facility] [employer]6370 [facility] [id number] Microscopic Examination See below: (Normal) Comments: Microscopic was indicated and was performed. Microscopic Examination MICRON (Normal) Comments: Microscopic follows if indicated. Nitrite, Urine Negative (Normal) Urobilinogen,Semi-Qn 0.2 mg/dL (Normal) Range: 0.2-1.0 Bilirubin Negative (Normal) Occult Blood Negative (Normal) Ketones Negative (Normal) Glucose Negative (Normal) Protein Negative (Normal) WBC Esterase Negative (Normal) Appearance Clear (Normal) Urine-Color Yellow (Normal) pH 5.5 (Normal) Range: 5.0-7.5 Specific Hammond 1.027 (Normal) Range: 1.005-1.030 :21 MICROALBUMIN: CREATININE RATIO Comments: PATIENT WAS FASTINGPERFORMED BY: [facility] [employer]6370 [facility] [id number] (93487) AND (91945) Microalb/Creat Ratio 2.9 {mg/g_creat} (Normal) Range: 0.0-30.0 Microalbumin, Urine 4.1 ug/mL (Normal) Creatinine, Urine 143.7 mg/dL (Normal) :21 METABOLIC PANEL, COMPREHENSIVE Comments: PATIENT WAS FASTINGPERFORMED BY: [facility] [employer]6370 [facility] [id number] (60961) ALT (SGPT) 28 [iU]/L (Normal) Range: 0-32 [...] Glucose, Serum 134 mg/dL (Abnormal) Range: 65-99 20-Lga-746712:21 CBC W/AUTO DIFF WBC (95207) Comments: PATIENT WAS FASTINGPERFORMED BY: [facility]CoNewton Medical CenterQsazec5487 [facility] [id number] Immature Grans (Abs) 0.0 {x10E3/uL} (Normal) Range: [...] 3.77-5.28 WBC 5.2 {x10E3/uL} (Normal) Range: 3.4-10.8 17-Njs-436872:21 LIPID PANEL (54719) Comments: PATIENT WAS FASTINGPERFORMED BY: [employer] [place] [id number] LDL/HDL Ratio 3.0 {ratio_units} (Normal) Range: 0.0-3.2 Comments: LDL/HDL Ratio Men Women 1/2 Avg.Risk 1.0 1.5 Av g.Risk 3.6 3.2 2X Avg.Risk 6.2 5.0 3X Avg.Risk 8.0 6.1 LDL Cholesterol Calc 121 mg/dL (Abnormal) Range: 0-99 VLDL Cholesterol Leonel 27 mg/dL (Normal) Range: 5-40 HDL Cholesterol 41 mg/dL (Normal) Triglycerides 137 mg/dL (Normal) Range: 0-149 Cholesterol, Total 189 mg/dL (Normal) Range: 100-199 05-Yll-941375:21 CALCIFIDIOL (15076) VIT D 25 Comments: PATIENT WAS FASTINGPERFORMED BY: [employer] [place] [id number] Vitamin D, 25-Hydroxy 19.5 ng/mL (Abnormal) Range: 30.0-100.0 Comments: Vitamin D deficiency has been defined by the [place] of[place]icine and an Endocrine Society practice guideline as alevel of serum 25-OH vitamin D less than 20 ng/mL (1,2).The Endocrine Society went on to further define vitamin Dinsufficiency as a level between 21 and 29 ng/mL (2).1. IOM ([place] of [place]). 2010. Dietary reference intakes for calcium and D. [place]: The National Academies Press.2. Catie MF, Karon ACEVEDO, Myron KESSLER, et al. Evaluation, treatment, and prevention of vitamin D deficiency: an Endocrine Society clinical practice guideline. JCEM. 2010; 96(7):1911-30. :19 HgA1C , Office (49155) HgA1C , Office 5.8 % (Normal) Range: 4.6 - 7.1 :19 Blood Glucose , Office (25626) Blood Glucose , Office 79 (Normal) 79-Zel-725831:15 Lipid Profile Comments: Order Date: 10/21/15Interface Comments: 12 hours fasting, may have water.Order Date: 10/21/15[facility] [address] [place], [place], [address] VLDL 28 mg/dL (Normal) Range: 5-40 LDL [...] 200-240 mg/dL Borderline >240 mg/dL High Risk 74-Mwk-086409:15 Liver Profile Comments: Order Date: 10/21/15Interface Comments: 12 hours fasting, may have water.Order Date: 10/21/15[facility] [address] [place], [address] D BILI 0.13 mg/dL (Normal) Range: 0.00-0.30 T BILI 0.80 mg/dL (Normal) Range: 0.20-1.00 ALT 39 U/L (Normal) Range: 12-78 ALK P 90 U/L (Normal) Range: 50-136 AST 23 U/L (Normal) Range: 15-37 GLOB 3.1 g/dL (Normal) Range: 2.3-3.5 ALB 4.3 g/dL (Normal) Range: 3.4-5.0 T PROT 7.4 g/dL (Normal) Range: 6.4-8.2 :48 HgA1C , Office (32369) HgA1C , Office 5.9 % (Normal) Range: 4.6 - 7.1 :48 Blood Glucose , Office (50607) Blood Glucose , Office 81 (Normal) :50 Microscopic Examination Comments: PATIENT WAS FASTINGPERFORMED BY: [employer]70 [facility] LayerAs[facility] [id number] Bacteria Few (Normal) Mucus Threads Present (Normal) Epithelial Cells (non renal) 0-10 {/hpf} (Normal) Range: 0 - 10 RBC 0-2 {/hpf} (Normal) Range: 0 - 2 WBC 0-5 {/hpf} (Normal) Range: 0 - 5 :17 VITAMIN B-12 (CYANOCOBALAMIN) Comments: PATIENT NOT FASTINGPERFORMED BY: [employer]70 [facility] LayerAshe [facility] Hospital [id number] (41162) Vitamin B12 928 pg/mL (Normal) Range: 211-946 :17 CALCIFIDIOL (79339) VIT D Comments: PATIENT NOT FASTINGPERFORMED BY: [employer] Koytod8714 [facility] [id number] Information: [id number] 25 Vitamin D, 25-Hydroxy 20.0 ng/mL (Abnormal) Range: 30.0-100.0 Comments: Vitamin D deficiency has been defined by the [place] of[place]icine and an Endocrine Society practice guideline as alevel of serum 25-OH vitamin D less than 20 ng/mL (1,2).The Endocrine Society went on to further define vitamin Dinsufficiency as a level between 21 and 29 ng/mL (2).1. IOM ([place] of [place]). 2010. Dietary reference intakes for calcium and D. [place]: The National Academies Press.2. Catie MF, Karon ACEVEDO, Myron KESSLER, et al. Evaluation, treatment, and prevention of vitamin D deficiency: an Endocrine Society clinical practice guideline. JCEM. 2010; 96(7):1911-30. :50 URINALYSIS, W/ MICRO (10020) Comments: PATIENT WAS FASTINGPERFORMED BY: [facility] [id number] Microscopic Examination See below: (Normal) Comments: Microscopic was indicated and was performed. Microscopic Examination MICRON (Normal) Comments: Microscopic follows if indicated. Nitrite, Urine Negative (Normal) Urobilinogen,Semi-Qn 0.2 mg/dL (Normal) Range: 0.2-1.0 Bilirubin Negative (Normal) Occult Blood Negative (Normal) Ketones Negative (Normal) Glucose Negative (Normal) Protein Negative (Normal) WBC Esterase Negative (Normal) Appearance Clear (Normal) Urine-Color Yellow (Normal) pH 6.0 (Normal) Range: 5.0-7.5 Specific Hammond 1.021 (Normal) Range: 1.005-1.030 :50 MICROALBUMIN: CREATININE RATIO Comments: PATIENT WAS FASTINGPERFORMED BY: [facility]ilerpopAs[facility] [id number] (41343) AND (14736) Microalb/Creat Ratio 2.6 {mg/g_creat} (Normal) Range: 0.0-30.0 Microalbumin, Urine 4.4 ug/mL (Normal) Creatinine, Urine 170.1 mg/dL (Normal) :50 METABOLIC PANEL, COMPREHENSIVE Comments: PATIENT WAS FASTINGPERFORMED BY: [facility]ilerpop[facility] [id number] (85637) ALT (SGPT) 28 [iU]/L (Normal) Range: 0-32 [...] Glucose, Serum 113 mg/dL (Abnormal) Range: 65-99 75-Mja-55172:50 CBC W/AUTO DIFF WBC Comments: PATIENT WAS FASTINGPERFORMED BY: DAVID [facility] Vqnpus8338 [facility] [id number] Information: [id number] DL (74916) Immature Grans (Abs) 0.0 {x10E3/uL} (Normal) Range: [...] B-12 (CYANOCOBALAMIN) Comments: PATIENT WAS FASTINGPERFORMED BY: [facility] Cepatg6321 [facility] [id number] (21707) Vitamin B12 589 pg/mL (Normal) Range: 211-946 :50 LIPID PANEL (65478) Comments: PATIENT WAS FASTINGPERFORMED BY: [facility] Gjbwvd3826 [facility] [id number] LDL/HDL Ratio 3.2 {ratio_units} (Normal) Range: 0.0-3.2 [...] 178 mg/dL (Normal) Range: 100-199 :50 CALCIFIDIOL (26417) VIT D 25 Comments: PATIENT WAS FASTINGPERFORMED BY: LabCoNewton Medical CenterOhazlj7073 [facility] [id number] Vitamin D, 25-Hydroxy 23.6 ng/mL (Abnormal) Range: 30.0-100.0 Comments: Vitamin D deficiency has been defined by the [place] of[place]icine and an Endocrine Society practice guideline as alevel of serum 25-OH vitamin D less than 20 ng/mL (1,2).The Endocrine Society went on to further define vitamin Dinsufficiency as a level between 21 and 29 ng/mL (2).1. IOM ([place] of [place]). 2010. Dietary reference intakes for calcium and D. [place]: The National Academies Press.2. Catie MF, Karon [place], Myron KESSLER, et al. Evaluation, treatment, and prevention of vitamin D deficiency: an Endocrine Society clinical practice guideline. JCEM. 2010; 96(7):1911-30. :39 HgA1C , Office (54564) HgA1C , Office 5.7 % (Normal) Range: 4.6 - 7.1 :39 Blood Glucose , Office (88289) Blood Glucose , Office 87 (Normal) :08 CK-MB Quantitative and Index Comments: 'TROP' Serial specimen #1, #2, #3, or #4: INT'CKMB' Serial Specimen #1, #2 or #3? 1[facility] [address]myy[address] [place], [place], [address] CKRI 0.5 % (Normal) Range: 0.0-1.4 Comments: RELATIVE INDEX >1.5% IS PRESUMPTIVELY POSITIVE CPKMB 0.6 ng/mL (Normal) Range: 0.0-5.0 Comments: CK-MB and RI Interpretation MB Relative Index Non-AMI <or= 5 NA Indeterminate > 5 <or= 4 AMI > 5 > 4 CPK TOTAL 114 U/L (Normal) Range: 26-192 5-Jan-589228:08 Troponin I (08122) Comments: 'TROP' Serial specimen #1, #2, #3, or #4: INT'CKMB' Serial Specimen #1, #2 or #3? 1[facility] [address] [place], [place], [address] TROPONIN-I < 0.02 ng/mL (Normal) Comments: TROPONIN-I EXPECTED VALUES <0.05 NEGATIVE 0.06 - 0.59 AT RISK OF AR > OR = 0.60 SUGGEST AR 5-Sbv-105046:44 LIPID PANEL (73149) Comments: PATIENT WAS FASTINGPERFORMED BY: [employer] [facility] [id number] Information: [id number] LDL/HDL Ratio 2.6 {ratio_units} (Normal) Range: 0.0-3.2 [...] (Normal) Range: 100-199 :56 HgA1C , Office (77809) HgA1C , Office 5.8 % (Normal) Range: 4.6 - 7.1 :56 Blood Glucose , Office (99028) Blood Glucose , Office 99 (Normal) 85-Zvm-421645:27 URINE SHANI CULTURE-MICHAEL COL Comments: PATIENT NOT FASTINGPERFORMED BY: [facility]StarMobileNewton Medical CenterSqcxyy6785 [facility] [id number] Information: SRC:[facility] [place] [id number] [place] (08183) Antimicrobial MIHEAD (Normal) Comments: S = Susceptible; [...] . (Abnormal) Urine Final report Culture,Comprehensive (Abnormal) 82-Dvf-534399:33 Urinalysis, Office (89048) UA - LEUKOCYTE ESTERASE Negative (Normal) UA - NITRITE Negative (Normal) URINE UROBILINGN MICHAEL TIMED Normal mg/dL (Normal) UA - PROTEIN Negative mg/dL (Normal) UA - PH 5 (Abnormal) UA - BLOOD Negative (Normal) UA - SPECIFIC GRAVITY 1.025 (Normal) UA - KETONES Negative mg/dL (Normal) UA - BILIRUBIN Negative (Normal) UA - GLUCOSE Negative (Normal) 63-Fgp-371260:00 Culture, Wound Comments: Test performed at:[facility] [address] [place] [address] CUW See Note (Normal) Comments: SPECIMEN RECEIVED [...] $ <=20 S(NF) indicates non-formulary drug at [facility]. Approval by In fectious Disease Specialist required before non-formulary drugs may be ordered and/or dispensed. 56-Fpe-585433:54 Bedside Glucose Comments: Test performed at:[facility] [id number] [place] [address] ; ordered by Dr. Kebede BEDSIDE GLU 126 mg/dL (Abnormal) Range: 70-110 Comments: No Action RequiredMANAGEMENT OF PATIENT CARE PER NURSING PROTOCOL [id number] Urinalysis, Routine (Dipstick) Comments: How was Urine Obtained? ACTUARY MANAGER TO SPECIFYTest performed at:[facility] [address] [place] [address] LEUK ESTERASE Negative /ul (Normal) OCCULT BLOOD-UR Negative /ul (Normal) NITRITE UR Negative (Normal) UROBILI Normal mg/dL (Normal) PROT DIPSTX Negative mg/dL (Normal) pH UR 5.0 (Normal) Range: 5.0 - 8.0 SP.GR. DIPSTX 1.020 (Normal) Range: 1.002-1.030 KETONE UR Negative mg/dL (Normal) BILIRUBIN URINE Negative mg/dL (Normal) GLUCOSE, UR Normal mg/dL (Normal) CLARITY Clear (Normal) COLOR Yellow (Normal) 66-Drl-707653:01 Bedside Glucose Comments: Test performed at:[facility] [address] [place] [address] BEDSIDE GLU 108 mg/dL (Normal) Range: 70-110 Comments: Policy and Physicians Orders followedMANAGEMENT OF PATIENT CARE PER NURSING PROTOCOL 01-Gqw-22625:47 CBC W/Diff, Automated Comments: Test performed at:[facility] [address] [place] [address] Absolute Lymph 2.25 {X10_3/ul} (Normal) [...] 4.2-5.4 WBC 5.9 K/mm3 (Normal) Range: 4.4-11.0 05-Hzr-40773:47 Comprehensive Metabolic Profil Comments: Test performed at:[facility] [address] [place] [address] GAP 11 (Normal) Range: 5-15 CO2 24.0 [...] 7-18 GLU 106 mg/dL (Normal) Range: 70-110 02-Rzp-920777:33 LIPID PANEL (79019) Comments: PATIENT WAS FASTINGPERFORMED BY: [facility] CenterXcwpba13[address] [place] [address] [id number] LDL/HDL Ratio 3.4 {ratio_units} (Abnormal) Range: 0.0-3.2 [...] Cholesterol, Total 208 mg/dL (Abnormal) Range: 100-199 38-Uvb-959096:33 TSH (14026) Comments: PATIENT WAS FASTINGPERFORMED BY: [facility] CenterZxwcjh0403 [facility] [id number] TSH 3.440 {uIU/mL} (Normal) Range: 0.450-4.500 80-Pfn-108479:33 METABOLIC PANEL, Comments: PATIENT WAS FASTINGPERFORMED BY: [facility] CenterXsbnog8909 [facility] [id number] Information: [id number] COMPREHENSIVE (51148) ALT (SGPT) 26 [iU]/L (Normal) Range: 0-32 [...] Glucose, Serum 108 mg/dL (Abnormal) Range: 65-99 62-Pwc-685859:33 CBC (AUTO) (68600) Comments: PATIENT WAS FASTINGPERFORMED BY: [facility]CoNewton [facility] CenterBbocha9294 [facility] [id number] Platelets 216 {x10E3/uL} (Normal) Range: 150-379 RDW 13.9 % (Normal) Range: 12.3-15.4 MCHC 34.1 g/dL (Normal) Range: 31.5-35.7 MCH 28.9 pg (Normal) Range: 26.6-33.0 MCV 85 fL (Normal) Range: 79-97 Hematocrit 41.6 % (Normal) Range: 34.0-46.6 Hemoglobin 14.2 g/dL (Normal) Range: 11.1-15.9 RBC 4.92 {x10E6/uL} (Normal) Range: 3.77-5.28 WBC 5.6 {x10E3/uL} (Normal) Range: 3.4-10.8 :33 VITAMIN B-12 (CYANOCOBALAMIN) Comments: PATIENT WAS FASTINGPERFORMED BY: [employer] Rvihso7555 [facility] [id number] (86826) Vitamin B12 638 pg/mL (Normal) Range: 211-946 :33 CALCIFIDIOL (75851) VIT D 25 Comments: PATIENT WAS FASTINGPERFORMED BY: [employer] Rrtaft3167 [facility] [id number]; [address] Vitamin D, 25-Hydroxy 19.4 ng/mL (Abnormal) Range: 30.0-100.0 Comments: Vitamin D deficiency has been defined by the [place] of[facility] Hospitalcine and an Endocrine Society practice guideline as alevel of serum 25-OH vitamin D less than 20 ng/mL (1,2).The Endocrine Society went on to further define vitamin Dinsufficiency as a level between 21 and 29 ng/mL (2).1. IOM ([place] of Medicine). 2010. Dietary reference intakes for calcium and D. [place]: The National Academies Press.2. Catie MF, Karon NC, Myron KESSLER, et al. Evaluation, treatment, and prevention of vitamin D deficiency: an Endocrine Society clinical practice guideline. JCEM. 2010; 96(7):1911-30. :47 HgA1C , Office (53757) HgA1C , Office 5.9 % (Normal) Range: 4.6 - 7.1 :05 METABOLIC PANEL, Comments: PATIENT NOT FASTINGPERFORMED BY: [facility]Newton [facility] CenterHlxvso1553 [facility] [id number] Information: [id number] COMPREHENSIVE (20654) ALT (SGPT) 24 [iU]/L (Normal) Range: 0-32 [...] Glucose, Serum 139 mg/dL (Abnormal) Range: 65-99 07-Wub-522207:05 CBC (AUTO) (65447) Comments: PATIENT NOT FASTINGPERFORMED BY: [facility]CoNewton [facility] CenterMpfipj0544 [facility] [id number] Platelets 251 {x10E3/uL} (Normal) Range: 150-379 RDW 13.3 % (Normal) Range: 12.3-15.4 MCHC 33.9 g/dL (Normal) Range: 31.5-35.7 MCH 28.3 pg (Normal) Range: 26.6-33.0 MCV 84 fL (Normal) Range: 79-97 Hematocrit 43.4 % (Normal) Range: 34.0-46.6 Hemoglobin 14.7 g/dL (Normal) Range: 11.1-15.9 RBC 5.19 {x10E6/uL} (Normal) Range: 3.77-5.28 WBC 5.8 {x10E3/uL} (Normal) Range: 3.4-10.8 52-Mgp-323041:05 VITAMIN B-12 (CYANOCOBALAMIN) Comments: PATIENT NOT FASTINGPERFORMED BY: [facility]6370 [facility] [id number] (95344) Vitamin B12 365 pg/mL (Normal) Range: 211-946 :05 TSH (62691) Comments: PATIENT NOT FASTINGPERFORMED BY: [facility]6370 [facility] [id number] TSH 2.930 {uIU/mL} (Normal) Range: 0.450-4.500 :25 [...] <0.05 NEGATIVE0.06 - 0.59 AT RISK OF AR> OR = 0.60 SUGGEST AR :32 URINE SHANI CULTURE (MICHAEL Comments: PATIENT NOT FASTINGPERFORMED BY: [employer] [address]85[address] [facility] [id number] Information: SRC:UR [id number] COL COUNT) (14622) Result 1 MUG (Normal) Comments: Mixed urogenital flora25,000-50,000 colony forming units per mL Urine Final report (Normal) Culture,Comprehensive :14 Urinalysis, Office (70689) UA - LEUKOCYTE ESTERASE Negative (Normal) UA - NITRITE Negative (Normal) URINE UROBILINGN MICHAEL TIMED Normal mg/dL (Normal) UA - PROTEIN Negative mg/dL (Normal) UA - PH 5.0 (Normal) Comments: 5.5 UA - BLOOD Negative (Normal) UA - SPECIFIC GRAVITY 1.030 (Abnormal) UA - KETONES Negative mg/dL (Normal) UA - BILIRUBIN Negative (Normal) UA - GLUCOSE Negative (Normal) :51 HgA1C , Office (28319) HgA1C , Office 6.1 % (Normal) Range: 4.6 - 7.1 :16 URINE SHANI CULTURE-MICHAEL COL Comments: PATIENT NOT FASTINGPERFORMED BY: LabRobert Ville 8685270 [facility] [id number] Information: SRC:UR [id number] COUNT (24250) Result 1 ECV (Abnormal) Comments: Escherichia coli, [...] S Urine Final report Culture,Comprehensi (Abnormal) ve 57-Vho-782729:59 Urinalysis, Office (83050) UA - LEUKOCYTE ESTERASE Small (Normal) UA - NITRITE Negative (Normal) URINE UROBILINGN MICHAEL TIMED 2 mg/dL (Normal) UA - PROTEIN Negative mg/dL (Normal) UA - PH 6.5 (Normal) UA - BLOOD Hemolyzed Small (Normal) UA - SPECIFIC GRAVITY 1.025 (Normal) UA - KETONES Negative mg/dL (Normal) UA - BILIRUBIN Negative (Normal) UA - GLUCOSE Negative (Normal) :33 HgA1C , Office (67716) HgA1C , Office 6.1 % (Normal) Range: 4.6 - 7.1 :33 Blood Glucose , Office (61507) Blood Glucose , Office 144 (Normal) Comments: non-fasting :24 Microscopic Examination Comments: PATIENT WAS FASTINGPERFORMED BY: [employer] [facility] [id number] Bacteria Few (Normal) Mucus Threads Present (Normal) Epithelial Cells (non renal) >10 {/hpf} (Abnormal) Range: 0 - 10 RBC 0-2 {/hpf} (Normal) Range: 0 - 2 WBC 0-5 {/hpf} (Normal) Range: 0 - 5 :48 TSH (56823) Comments: PATIENT WAS FASTINGPERFORMED BY: [employer] [facility] [id number] TSH 3.000 {uIU/mL} (Normal) Range: 0.450-4.500 :48 LIPID PANEL (54687) Comments: PATIENT WAS FASTINGPERFORMED BY: [employer] [facility] [id number] LDL/HDL Ratio 2.8 {ratio_units} (Normal) Range: 0.0-3.2 LDL Cholesterol Calc 105 mg/dL (Abnormal) Range: 0-99 VLDL Cholesterol Leonel 26 mg/dL (Normal) Range: 5-40 HDL Cholesterol 37 mg/dL (Abnormal) Comments: According to ATP-III Guidelines, HDL-C >59 mg/dL is considered anegative risk factor for CHD. Cholesterol, Total 168 mg/dL (Normal) Range: 100-199 Triglycerides 128 mg/dL (Normal) Range: 0-149 :48 URINALYSIS, W/ MICRO (53602) Comments: PATIENT WAS FASTINGPERFORMED BY: [facility]Newton [facility] CenterGjqvip8336 [facility] [id number] Microscopic Examination See below: (Normal) Microscopic Examination MICRON (Normal) Comments: Microscopic follows if indicated. Nitrite, Urine Negative (Normal) Urobilinogen,Semi-Qn 0.2 mg/dL (Normal) Range: 0.0-1.9 Bilirubin Negative (Normal) Occult Blood Negative (Normal) Ketones Negative (Normal) Glucose Negative (Normal) Protein Negative (Normal) WBC Esterase Negative (Normal) Appearance Clear (Normal) Urine-Color Yellow (Normal) pH 6.0 (Normal) Range: 5.0-7.5 Specific [place] 1.026 (Normal) Range: 1.005-1.030 :48 MICROALBUMIN: CREATININE RATIO Comments: PATIENT WAS FASTINGPERFORMED BY: [employer] Glhzkg5356 [facility] [id number] (90256) AND (76090) Microalb/Creat Ratio 3.5 {mg/g_creat} (Normal) Range: 0.0-30.0 Microalbumin, Urine 5.6 ug/mL (Normal) Range: 0.0-17.0 Creatinine, Urine 158.6 mg/dL (Normal) Range: 15.0-328.0 :48 METABOLIC PANEL, COMPREHENSIVE Comments: PATIENT WAS FASTINGPERFORMED BY: [facility]Newton [facility] CenterDzmxbb9228 [facility] [id number] (51805) ALT (SGPT) 26 [iU]/L (Normal) Range: 0-32 [...] Glucose, Serum 100 mg/dL (Abnormal) Range: 65-99 07-Onp-54194:48 CBC WITH MANUAL DIFF Comments: PATIENT WAS FASTINGPERFORMED BY: [facility]CoNewton [facility] CenterFwqkns8158 [facility] [id number] Information: [id number] (20686) Immature Grans (Abs) 0.0 {x10E3/uL} (Normal) Range: [...] to dr sánchez; PATIENT WAS FASTINGPERFORMED BY: Phoodeez6370 [facility] [id number] (58166) ALT (SGPT) 25 [iU]/L (Normal) Range: 0-32 AST (SGOT) 21 [iU]/L (Normal) Range: 0-40 Alkaline Phosphatase, S 103 [iU]/L (Normal) Range: 39-117 Bilirubin, Direct 0.16 mg/dL (Normal) Range: 0.00-0.40 Bilirubin, Total 0.8 mg/dL (Normal) Range: 0.0-1.2 Albumin, Serum 4.7 g/dL (Normal) Range: 3.5-5.5 Protein, Total, Serum 7.1 g/dL (Normal) Range: 6.0-8.5 :41 LIPID PANEL (40505) Comments: send to dr sánchez; PATIENT WAS FASTINGPERFORMED BY: [employer] Zgqcdc0085 [facility] [id number] Information: [id number] LDL Cholesterol Calc 104 mg/dL (Abnormal) Range: 0-99 LDL/HDL Ratio 2.7 {ratio_units} (Normal) Range: 0.0-3.2 HDL Cholesterol 39 mg/dL (Abnormal) Comments: According to ATP-III Guidelines, HDL-C >59 mg/dL is considered anegative risk factor for CHD. VLDL Cholesterol Leonel 20 mg/dL (Normal) Range: 5-40 Triglycerides 100 mg/dL (Normal) Range: 0-149 Cholesterol, Total 163 mg/dL (Normal) Range: 100-199 :47 HgA1C , Office (80030) HgA1C , Office 5.7 % (Normal) Range: 4.6 - 7.1 :47 Blood Glucose , Office (36129) Blood Glucose , Office 142 (Normal) :18 Microscopic Examination Comments: PATIENT WAS FASTINGPERFORMED BY: [employer] Blgtxw1949 [place] SoftwareDublin [place] [id number] Bacteria None seen (Normal) Mucus Threads Present (Normal) Epithelial Cells (non renal) 0-10 {/hpf} (Normal) Range: 0 - 10 RBC None seen {/hpf} (Normal) Range: 0 - 3 WBC 0-5 {/hpf} (Normal) Range: 0 - 5 :18 Vitamin D Hydroxy (19752) Comments: PATIENT WAS FASTINGPERFORMED BY: [employer] Essdde7318 [address] [place] [id number] Vitamin D, 25-Hydroxy 21.1 ng/mL (Abnormal) Range: 30.0-100.0 Comments: Vitamin D deficiency has been defined by the [place] of[place]icine and an Endocrine Society practice guideline as alevel of serum 25-OH vitamin D less than 20 ng/mL (1,2).The Endocrine Society went on to further define vitamin Dinsufficiency as a level between 21 and 29 ng/mL (2).1. IOM ([place] of Medicine). 2010. Dietary reference intakes for calcium and D. [place]: The National Academies Press.2. Catie MF, Karon NC, Myron KESSLER, et al. Evaluation, treatment, and prevention of vitamin D deficiency: an Endocrine Society clinical practice guideline. JCEM. 2010; 96(7):1911-30. :18 TSH (18544) Comments: PATIENT WAS FASTINGPERFORMED BY: [facility] Estmnl3741 [place] Accept SoftwareAt[facility] Health [facility] [id number] TSH 2.340 {uIU/mL} (Normal) Range: 0.450-4.500 :18 URINALYSIS, W/ MICRO (82358) Comments: PATIENT WAS FASTINGPERFORMED BY: [employer]6370 [facility] [id number] Microscopic Examination See below: (Normal) Microscopic Examination MICRON (Normal) Comments: Microscopic follows if indicated. Nitrite, Urine Negative (Normal) Urobilinogen,Semi-Qn 0.2 mg/dL (Normal) Range: 0.0-1.9 Bilirubin Negative (Normal) Occult Blood Negative (Normal) Ketones Negative (Normal) Glucose Negative (Normal) Protein Negative (Normal) WBC Esterase Negative (Normal) Appearance Clear (Normal) pH 6.0 (Normal) Range: 5.0-7.5 Urine-Color Yellow (Normal) Specific [place] 1.024 (Normal) Range: 1.005-1.030 :18 MICROALBUMIN: CREATININE RATIO Comments: PATIENT WAS FASTINGPERFORMED BY: [facility]Newton [facility] CenterVizbxg4562 [facility] [id number] (80011) AND (08354) Microalb/Creat Ratio 2.7 {mg/g_creat} (Normal) Range: 0.0-30.0 Creatinine, Urine 138.1 mg/dL (Normal) Range: 15.0-278.0 Microalbumin, Urine 3.7 ug/mL (Normal) Range: 0.0-17.0 :18 METABOLIC PANEL, COMPREHENSIVE Comments: PATIENT WAS FASTINGPERFORMED BY: [facility]Newton [facility] CenterPopddg9125 [facility] [id number] (21454) ALT (SGPT) 25 [iU]/L (Normal) Range: 0-32 [...] mg/dL (Normal) Range: 65-99 :18 LIPID PANEL (72392) Comments: PATIENT WAS FASTINGPERFORMED BY: [employer] [facility] [facility] [id number] LDL/HDL Ratio 2.8 {ratio_units} (Normal) Range: 0.0-3.2 [...] MANUAL DIFF Comments: PATIENT WAS FASTINGPERFORMED BY: [facility]ikNewton [facility] CenterSlfokp8806 [facility] [id number] Information: [id number] (21616) Immature Grans (Abs) 0.0 {x10E3/uL} (Normal) Range: [...] (Normal) Range: 3.4-10.8 :31 HgA1C , Office (74469) HgA1C , Office 5.5 % (Normal) Range: 4.6 - 7.1 :31 Blood Glucose , Office (37220) Blood Glucose , Office 113 (Normal) :23 HgA1C , Office (77242) HgA1C , Office 6.1 % (Normal) Range: 4.6 - 7.1 :23 Blood Glucose , Office (37032) Blood Glucose , Office 118 (Normal) :33 Microscopic Examination Comments: PATIENT WAS FASTINGPERFORMED BY: LabAsc[facility] Hospital6370 [facility] [id number] Bacteria None seen (Normal) Mucus Threads Present (Normal) Epithelial Cells (non renal) 0-10 {/hpf} (Normal) Range: 0 - 10 RBC 0-3 {/hpf} (Normal) Range: 0 - 3 WBC 0-5 {/hpf} (Normal) Range: 0 - 5 :27 FECAL OCCULT HGB ASSAY- tubes sent home (87940) FECAL OCCULT HGB ASSAY, QUAL, 1-3 SIMULTANEOU negative (Normal) :33 TSH (21844) Comments: PATIENT WAS FASTINGPERFORMED BY: [employer] Nazfar8053 [facility] [id number] TSH 3.330 {uIU/mL} (Normal) Range: 0.450-4.500 :33 URINALYSIS, W/ MICRO (06461) Comments: PATIENT WAS FASTINGPERFORMED BY: [employer] Pqopez1719 [facility] [id number] Microscopic Examination See below: (Normal) Microscopic Examination MICRON (Normal) Comments: Microscopic follows if indicated. Nitrite, Urine Negative (Normal) Urobilinogen,Semi-Qn 0.2 mg/dL (Normal) Range: 0.0-1.9 Bilirubin Negative (Normal) Occult Blood Negative (Normal) Ketones Negative (Normal) Glucose Negative (Normal) Protein Negative (Normal) WBC Esterase Negative (Normal) Appearance Clear (Normal) Urine-Color Yellow (Normal) pH 7.0 (Normal) Range: 5.0-7.5 Specific [place] 1.021 (Normal) Range: 1.005-1.030 40-Pju-889379:33 MICROALBUMIN: CREATININE RATIO Comments: PATIENT WAS FASTINGPERFORMED BY: [facility] ProofNewton Medical CenterOeketb0094 [facility] [id number] (57285) AND (80645) Microalb/Creat Ratio 1.6 {mg/g_creat} (Normal) Range: 0.0-30.0 Creatinine, Urine 154.5 mg/dL (Normal) Range: 15.0-278.0 Microalbumin, Urine 2.5 ug/mL (Normal) Range: 0.0-17.0 21-Zpy-361977:33 METABOLIC PANEL, COMPREHENSIVE Comments: PATIENT WAS FASTINGPERFORMED BY: DAVID [facility] [id number] (27395) ALT (SGPT) 24 [iU]/L (Normal) Range: 0-32 [...] Glucose, Serum 105 mg/dL (Abnormal) Range: 65-99 75-Iqz-255481:33 LIPID PANEL (31319) Comments: PATIENT WAS FASTINGPERFORMED BY: [place] [id number] LDL Cholesterol Calc 115 mg/dL (Abnormal) Range: 0-99 LDL/HDL Ratio 2.9 {ratio_units} (Normal) Range: 0.0-3.2 HDL Cholesterol 39 mg/dL (Abnormal) Comments: According to ATP-III Guidelines, HDL-C >59 mg/dL is considered anegative risk factor for CHD. VLDL Cholesterol Leonel 32 mg/dL (Normal) Range: 5-40 Cholesterol, Total 186 mg/dL (Normal) Range: 100-199 Triglycerides 160 mg/dL (Abnormal) Range: 0-149 82-Pez-758354:33 CBC WITH MANUAL DIFF Comments: PATIENT WAS FASTINGPERFORMED BY: DAVID [facility] Cebluh7127 [facility] [id number] Information: [id number] (66590) Immature Grans (Abs) 0.0 {x10E3/uL} (Normal) Range: [...] (Normal) Range: 4.0-10.5 :33 Vitamin D Hydroxy (76328) Comments: PATIENT WAS FASTINGPERFORMED BY: [employer] Xjedkr5951 [facility] [id number] Vitamin D, 25-Hydroxy 46.4 ng/mL (Normal) Range: 30.0-100.0 Comments: Vitamin D deficiency has been defined by the [place] of[facility] Hospitalcine and an Endocrine Society practice guideline as alevel of serum 25-OH vitamin D less than 20 ng/mL (1,2).The Endocrine Society went on to further define vitamin Dinsufficiency as a level between 21 and 29 ng/mL (2).1. IOM ([place] of Medicine). 2010. Dietary reference intakes for calcium and D. [place]: The National Academies Press.2. Catie MF, Karon NC, Myron KESSLER, et al. Evaluation, treatment, and prevention of vitamin D deficiency: an Endocrine Society clinical practice guideline. JCEM. 2010; 96(7):1911-30. :58 HgA1C , Office (24044) HgA1C , Office 6.0 % (Normal) Range: 4.6 - 7.1 :58 Blood Glucose , Office (38395) Blood Glucose , Office 92 (Normal) :59 HgA1C , Office (01375) HgA1C , Office 5.5 % (Normal) Range: 4.6 - 7.1 :59 Blood Glucose , Office (88733) Blood Glucose , Office 105 (Normal) :40 LIPID PANEL (50750) Comments: PATIENT WAS FASTINGPERFORMED BY: LabCoNewton Medical CenterItkslg6393 [facility] [id number] LDL Cholesterol Calc 144 mg/dL (Abnormal) Range: 0-99 LDL/HDL Ratio 3.1 {ratio_units} (Normal) Range: 0.0-3.2 VLDL Cholesterol Leonel 24 mg/dL (Normal) Range: 5-40 HDL Cholesterol 46 mg/dL (Normal) Comments: According to ATP-III Guidelines, HDL-C >59 mg/dL is considered anegative risk factor for CHD. Triglycerides 118 mg/dL (Normal) Range: 0-149 Cholesterol, Total 214 mg/dL (Abnormal) Range: 100-199 :40 TSH (64648) Comments: PATIENT WAS FASTINGPERFORMED BY: [employer] [facility] [id number] TSH 2.430 {uIU/mL} (Normal) Range: 0.450-4.500 :40 URINALYSIS, W/ MICRO (43796) Comments: PATIENT WAS FASTINGPERFORMED BY: [employer] [facility] [id number] Microscopic Examination See below: (Normal) Microscopic Examination MICRON (Normal) Comments: Microscopic follows if indicated. Nitrite, Urine Negative (Normal) Urobilinogen,Semi-Qn 0.2 mg/dL (Normal) Range: 0.0-1.9 Bilirubin Negative (Normal) Occult Blood Negative (Normal) Ketones Negative (Normal) Glucose Negative (Normal) Protein Negative (Normal) WBC Esterase Negative (Normal) Appearance Clear (Normal) Urine-Color Yellow (Normal) pH 5.5 (Normal) Range: 5.0-7.5 Specific [place] 1.022 (Normal) Range: 1.005-1.030 :40 MICROALBUMIN: CREATININE RATIO Comments: PATIENT WAS FASTINGPERFORMED BY: [facility]ikNewton [facility] CenterQebezk3765 [facility] [id number] (31023) AND (52537) Microalb/Creat Ratio 2.2 {mg/g_creat} (Normal) Range: 0.0-30.0 Creatinine, Urine 124.7 mg/dL (Normal) Range: 15.0-278.0 Microalbumin, Urine 2.7 ug/mL (Normal) Range: 0.0-17.0 :40 METABOLIC PANEL, COMPREHENSIVE Comments: PATIENT WAS FASTINGPERFORMED BY: [facility]ikNewton [facility] CenterElimoy8473 [facility] [id number] (94791) ALT (SGPT) 27 [iU]/L (Normal) Range: 0-32 [...] Glucose, Serum 119 mg/dL (Abnormal) Range: 65-99 3-Gsx-431768:40 CBC WITH MANUAL DIFF Comments: PATIENT WAS FASTINGPERFORMED BY: [facility]6370 [facility] [id number] Information: [id number] (96988) Immature Grans (Abs) 0.0 {x10E3/uL} (Normal) Range: [...] Microscopic Examination Comments: PATIENT WAS FASTINGPERFORMED BY: LabAsc[facility]6370 [facility] [id number] Bacteria None seen (Normal) Mucus Threads Present (Normal) Epithelial Cells (non renal) 0-10 {/hpf} (Normal) Range: 0 - 10 RBC None seen {/hpf} (Normal) Range: 0 - 3 WBC 0-5 {/hpf} (Normal) Range: 0 - 5 :59 HgA1C , Office (42384) HgA1C , Office 5.8 % (Normal) Range: 4.6 - 7.1 :59 Blood Glucose , Office (23771) Blood Glucose , Office 137 (Normal) 0-Rhr-937871:50 URINE SHANI CULTURE (MICHAEL Comments: PATIENT NOT FASTINGPERFORMED BY: [facility]ikNewton [facility] CenterFkpkoy8421 [facility] [id number] Information: SRC:UR [id number] COL COUNT) (47582) Result 1 MUG (Normal) Comments: Mixed urogenital flora10,000-25,000 colony forming units per mL Urine Final report (Normal) Culture,Comprehensive :53 Urinalysis, Office (80318) UA - BILIRUBIN Large (Normal) UA - BLOOD Negative (Normal) UA - GLUCOSE Negative (Normal) UA - KETONES Negative mg/dL (Normal) UA - LEUKOCYTE ESTERASE Negative (Normal) UA - NITRITE Negative (Normal) UA - PH 6.0 (Normal) UA - PROTEIN Negative mg/dL (Normal) UA - SPECIFIC GRAVITY 1.025 (Normal) URINE UROBILINGN MICHAEL TIMED Normal mg/dL (Normal) 49-Krb-995833:17 Microscopic Examination Comments: PATIENT WAS FASTINGPERFORMED BY: [employer]70 [facility] [id number] Bacteria None seen (Normal) Mucus Threads Present (Normal) Epithelial Cells (non renal) 0-10 {/hpf} (Normal) Range: 0 - 10 RBC 0-3 {/hpf} (Normal) Range: 0 - 3 WBC 0-5 {/hpf} (Normal) Range: 0 - 5 97-Ocu-166303:32 L/S SPINE,MIN 4 VIEWS Radiology Report See [...] Saxena M.D.September 24, 2011 at 3:23:12 PM [id number] Signed GP/GP If you are the referring physician and would like t o consult with theradiologist who provided this interpretation, please contact Marcelo Choudhury at [phone]. If this radiologist is unavailable, youwill be directed to another radiologist to assist. If you are a patient with a question regarding this report, pleasecontactyour referring physician directly. Professional Interpretation Provided By: [employer], Phone ,Fax Dictated on 09/24/11 1000 by Odessa VIDALES,Aylinranscribed on 09/24/11 1530 by ITS IMPORTSign by Odessa VIDALES,Ross on 09/24/11 1530 Sign by: Ross Saxena MD 34-Kud-465375:17 Hemoglobin Glyclated (HGB A1C) Comments: PATIENT WAS FASTINGPERFORMED BY: Phoodeez6370 [facility] [id number] (12964) Hemoglobin A1c 5.6 % (Normal) Range: 4.8-5.6 Comments: . Increased risk for diabetes: 5.7 - 6.4 Diabetes: >6.4 Glycemic control for adults with diabetes: <7.0 97-Uoc-062396:17 LIPID PANEL (82945) Comments: PATIENT WAS FASTINGPERFORMED BY: Phoodeez6370 [facility] [id number] LDL/HDL Ratio 3.2 {ratio_units} (Normal) Range: 0.0-3.2 LDL Cholesterol Calc 126 mg/dL (Abnormal) Range: 0-99 VLDL Cholesterol Leonel 30 mg/dL (Normal) Range: 5-40 HDL Cholesterol 40 mg/dL (Normal) Comments: According to ATP-III Guidelines, HDL-C >59 mg/dL is considered anegative risk factor for CHD. Triglycerides 151 mg/dL (Abnormal) Range: 0-149 Cholesterol, Total 196 mg/dL (Normal) Range: 100-199 36-Opl-809783:17 TSH (10248) Comments: PATIENT WAS FASTINGPERFORMED BY: [facility] ProofNewton [facility] CenterWkpbro4467 [facility] [id number] TSH 2.330 {uIU/mL} (Normal) Range: 0.450-4.500 73-Hgy-485452:17 URINALYSIS, W/ MICRO (40152) Comments: PATIENT WAS FASTINGPERFORMED BY: [facility] ProofNewton [facility] CenterDhoflk0005 [facility] [id number] Microscopic Examination See below: (Normal) Microscopic Examination MICRON (Normal) Comments: Microscopic follows if indicated. Nitrite, Urine Negative (Normal) Urobilinogen,Semi-Qn 0.2 mg/dL (Normal) Range: 0.0-1.9 Bilirubin Negative (Normal) Occult Blood Negative (Normal) Ketones Negative (Normal) Glucose Negative (Normal) Protein Negative (Normal) WBC Esterase Negative (Normal) Appearance Clear (Normal) Urine-Color Yellow (Normal) pH 5.0 (Normal) Range: 5.0-7.5 Specific [place] 1.022 (Normal) Range: 1.005-1.030 21-Dkw-293642:17 MICROALBUMIN: CREATININE RATIO Comments: PATIENT WAS FASTINGPERFORMED BY: [facility] ProofNewton Medical CenterZtmfdn0638 [facility] [id number] ([id number]) AND (47039) Microalb/Creat Ratio 2.4 {mg/g_creat} (Normal) Range: 0.0-30.0 Microalbumin, Urine 3.0 ug/mL (Normal) Range: 0.0-17.0 Creatinine, Urine 125.5 mg/dL (Normal) Range: 15.0-278.0 :17 METABOLIC PANEL, COMPREHENSIVE Comments: PATIENT WAS FASTINGPERFORMED BY: [facility] ProofNewton [facility] CenterDjkodx2972 [facility] [id number] ([id number]) ALT (SGPT) 18 [iU]/L (Normal) Range: 0-40 [...] Glucose, Serum 100 mg/dL (Abnormal) Range: 65-99 00-Moi-897458:17 CBC WITH MANUAL DIFF Comments: PATIENT WAS FASTINGPERFORMED BY: [facility]6370 [facility] [id number] Information: [id number] ([id number]) Immature Grans (Abs) 0.0 {x10E3/uL} (Normal) Range: [...] (Normal) Range: 4.0-10.5 :17 Vitamin D Hydroxy (81652) Comments: PATIENT WAS FASTINGPERFORMED BY: [facility]6370 [facility] [id number] Vitamin D, 25-Hydroxy 15.2 ng/mL (Abnormal) Range: 30.0-100.0 Comments: Vitamin D deficiency has been defined by the [place] [facility] and an Endocrine Society practice guideline as alevel of serum 25-OH vitamin D less than 20 ng/mL (1,2).The Endocrine Society went on to further define vitamin Dinsufficiency as a level between 21 and 29 ng/mL (2).1. IOM ([place] of Medicine). 2010. Dietary reference intakes for calcium and D. [place]: The National Academies Press.2. Catie MF, Karon ACEVEDO, Myron KESSLER, et al. Evaluation, treatment, and prevention of vitamin D deficiency: an Endocrine Society clinical practice guideline. JCEM. 2010; 96(7):1911-30. 21-Djr-983911:46 CK, Total+Isoenzymes, Serum Comments: PATIENT NOT FASTINGPERFORMED BY: [facility]Newton [facility] CenterBzmtgv1516 [facility] [id number] CK-BB 0 % (Normal) CK-MB 0 % (Normal) Range: 0-3 Macro Type 1 0 % (Normal) CK-MM 100 % (Normal) Range: 97-100 Macro Type 2 0 % (Normal) Creatine Kinase,Total,Serum 82 U/L (Normal) Range: 24-173 60-Srt-233815:00 Urinalysis, Office (73573) UA - BILIRUBIN Negative (Normal) UA - BLOOD Negative (Normal) UA - GLUCOSE Negative (Normal) UA - KETONES Negative mg/dL (Normal) UA - LEUKOCYTE ESTERASE Negative (Normal) UA - NITRITE Negative (Normal) UA - PH 5.0 (Normal) UA - PROTEIN Negative mg/dL (Normal) UA - SPECIFIC GRAVITY 1.025 (Normal) URINE UROBILINGN MICHAEL TIMED Normal mg/dL (Normal) 86-Njj-916245:49 HgA1C , Office (75866) HgA1C , Office 6.4 % (Normal) Range: 4.6 - 7.1 63-Asr-652386:49 Blood Glucose , Office (84932) Blood Glucose , Office 186 (Normal) 91-Yvu-844326:14 Metabolic Panel, Basic Comments: PATIENT NOT FASTINGPERFORMED BY: [employer] Pqqeva2148 [facility] [id number] Information: [id number] (69977) Calcium, Serum 9.4 mg/dL (Normal) Range: 8.7-10.2 [...] Glucose, Serum 202 mg/dL (Abnormal) Range: 65-99 02-Zsq-88472:45 Urinalysis, Office (95902) UA - BILIRUBIN Small (Normal) UA - BLOOD Negative (Normal) UA - GLUCOSE Negative (Normal) UA - KETONES Small mg/dL (Normal) UA - LEUKOCYTE ESTERASE Negative (Normal) UA - NITRITE Negative (Normal) UA - PH 5.0 (Normal) UA - PROTEIN Negative mg/dL (Normal) UA - SPECIFIC GRAVITY 1.025 (Normal) URINE UROBILINGN MICHAEL TIMED Normal mg/dL (Normal) 5-Olv-949732:50 URINE SHANI CULTURE-MICHAEL COL Comments: PATIENT NOT FASTINGPERFORMED BY: [facility]CoNewton [facility] CenterMjslhg0302 [facility] [id number] Information: SRC:UR [id number] COUNT (40629) Result 1 ECV (Normal) Comments: Escherichia coli, [...] S Urine Final report (Normal) Culture,Comprehensiv e 1-Vek-893701:27 Urinalysis, Office (62242) UA - BILIRUBIN Small (Normal) UA - BLOOD Hemolyzed Large (Normal) UA - GLUCOSE Negative (Normal) UA - KETONES Negative mg/dL (Normal) UA - LEUKOCYTE ESTERASE Small (Normal) UA - NITRITE Negative (Normal) UA - PH 6.0 (Normal) UA - PROTEIN 300 mg/dL (Normal) UA - SPECIFIC GRAVITY 1.025 (Normal) URINE UROBILINGN MICHAEL TIMED Normal mg/dL (Normal) 04-Spw-571202:03 CALCIFIDIOL (71852) VIT D Comments: PATIENT NOT FASTINGPERFORMED BY: DAVID [facility] Cfnwcb8601 [place] [id number] Information: [id number] 25 Vitamin D, 25-Hydroxy 28.0 ng/mL (Abnormal) Range: 32.0-100.0 Comments: Effective January 26, 2011 Vitamin D, 25-Hydroxy reference intervals will be changing to 30-100. .Recent studies consider the lower li lucio of 32.0 ng/mL to be athreshold for optimal health.Francisco Javier FOSTER. J Nutr. 2004;135(2):317-22. 98-Raw-071417:09 KNEE,4 OR MORE VIEWS Radiology Report See [...] 10/03/10 1324 Sign by: Ross Saxena MD 30-Cwe-73306:00 KNEE,4 OR MORE VIEWS Radiology Report See [...] 10/03/10 1325 Sign by: Ross Saxena MD 13-Nyj-98284:00 RHEUMATOID FACTOR-QUANT Comments: PATIENT NOT FASTINGPERFORMED BY: [facility] [id number] BY: Living ProofElizabeth [place]ille [id number] ([id number]) RA Latex Turbid. 8.6 {IU/mL} (Normal) Range: 0.0-13.9 :00 PARATHORMONE (92683) Comments: PATIENT NOT FASTINGPERFORMED BY: [employer] [place] [id number] BY: [employer] [id number] PTH, Intact 23 pg/mL (Normal) Range: 15-65 :00 CALCIUM SERUM (65709) Comments: PATIENT NOT FASTINGPERFORMED BY: [employer]70 Sales LayerAshe [facility] Hospital [id number] BY: [employer] [id number] Calcium, Serum 9.4 mg/dL (Normal) Range: 8.7-10.2 CCP Antibodies IgG/IgA 3 {units} (Normal) Comments: PATIENT NOT FASTINGPERFORMED BY: [employer] QufenqiAshe Memorial Hospital [id number] BY: [employer] [id number] Range: 0-19 Comments: Negative <20 Weak [...] {uIU/mL} (Normal) Range: 0.358-3.74 :15 VIT D,25 35964 13.3 ng/mL (Abnormal) Comments: appt 09/29/10 Range: 32.0-100.0 Comments: Recent studies consider the lower limit of 32.0 ng/mL to dory threshold for optimal health.Francisco Javier FOSTER. J Nutr. 2004;135(2):317-22.Performed at: [address] Director: Hamida Boyer MD, Phone: [phone] 69-Fny-29823:20 HEPATOBILIARY IMAGING Radiology Report See Note (Normal) [...] 1015 Sign by: ADRIAN OCASIO MD H.PYLORI [id number] < 0.9 U/mL Range: 0.0-0.8 3:08 (Normal) Comments: Negative <0.9 Indeterminate 0.9 - 1.0 Positive >1.0Performed at: CB - [facility] Ttovjl[address], [place], [place] [id number] Director: Hamida Boyer MD, Phone: [phone] 37-Nhz-704272:21 FECAL OCCULT- Tubes sent home (86754) FECAL OCCULT HGB ASSAY, QUAL, 1-3 SIMULTANEOU negative (Normal) 11-Sep-20088:22 THYROID IMAGING ONLY Radiology Report See Note (Normal) Comments: Exam Number: [id number] THYROID SCAN AND UPTAKE The patient was [...] on August. Reported By: KEVIN YUAN M.D. 97-Tpc-202874:05 THYROID Radiology Report See Note (Normal) Comments: Exam Number: [id number] CLINICAL:52-year-old female with nodules ULTRASOUND THYROID COMPARISON:None. [...] Report See Note (Normal) Comments: Exam Number: [id number] CLINICAL:52-year-old female with swollen areas at base of neck, anteriorly. Possible supraclavicular masses. History of swelling in the supraclavicular regions for 6 days which is not present in the equity analyst, but swells later in the day. No [...] further evaluation. Reported By: DONTAE ESPINAL M.D. 29-Tsh-628936:47 UPPER EXT/JT ONLY (ROUTINE) Radiology Report See Note (Normal) Comments: Exam Number: [id number] MRI OF THE RIGHT SHOULDER WITHOUT CONTRAST. [...] subacromial fat. Reported By: EMELI COLEMAN M.D. 4-Zhl-070127:03 SHOULDER,MIN 2 VIEWS (MT) Radiology Report See Note (Normal) Comments: Exam Number: [id number] RIGHT SHOULDER, 4 VIEWS CLINICAL STATEMENTPain. PRIOR STUDIESNone. No acute fracture, joint dislocation or AC joint separation is shown. Joint spaces are maintained. No significa nt spurring or pathologiccalcifications. No suspicious bone lesions. Right lung apex isclear. IMPRESSIONNegative right shoulder. Reported By: LESLI CURIEL M.D. 81-Ccu-601222:15 GASTRIC EMPTYING STUDY Radiology Report See Note (Normal) Comments: Exam Number: [id number] NUCLEAR MEDICINE GASTRIC EMPTYING STUDY SOLID PHASE [...] II, controlled, with no complications : Reviewed Woodworking Belt Sander Letter Indication: Diabetes mellitus type II, controlled, [...] mellitus, well controlled Abscess, abdomen : Reviewed Woodworking Belt Sander Letter Indication: Abscess, abdomen Type II diabetes mellitus, well controlled : Eprescribed prescriptions (G8553) Indication: Type II diabetes mellitus, well controlled Abscess, abdomen : Reviewed Woodworking Belt Sander Letter- dr [facility] [...] : Follow up in 2 weeks with [facility] [place] for diabetic teaching Indication: Other specified abnormal [...] disease) Planned Observations Rapid Strep Test, Office (40874)Indication: Sore throat On: 98-Xpe-188490:31 Request SED RATE ERYTHROCYTE (69750)Indication: Abscess, abdomen On: 16-Dec-2015 Request BACT CULTURE ANY-ANAEROBIC (68206)Indication: Abscess, abdomen On: 13-Dec-20157:42 Request CALCIFIDIOL (98315) VIT D 25Indication: Vitamin D deficiency, unspecified On: 69-Hsi-458904:30 Request CPK MB FRACTION (61443)Indication: Chest pain at rest On: 4-Dzj-759081:30 Request CREATINE KINASE TOTAL (08579)Indication: Chest pain at rest On: 3-Osh-040427:30 Request Troponin I (68328)Indication: Chest pain On: 35-Coc-339432:19 Request CPK MB FRACTION (40898)Indication: Chest pain On: 82-Ksf-316024:19 Request CREATINE KINASE TOTAL (23697)Indication: Chest pain On: 93-Pck-251918:19 Request C-Reactive Protein (78580)Indication: Chest pain On: 60-Vhz-493762:19 Request Vitamin D Hydroxy (00194)Indication: Vitamin D deficiency, unspecified On: 58-Nvc-80812:00 Request TSH (32170)Indication: Diabetes mellitus type II, controlled, with no complications On: 50-Zpv-17136:59 Request URINALYSIS, W/ MICRO (20327)Indication: Diabetes mellitus type II, controlled, with no complications On: 82-Qeo-26950:59 Request MICROALBUMIN: CREATININE RATIO (67185) AND (41683)Indication: Diabetes mellitus type II, controlled, with no complications On: :59 Request METABOLIC PANEL, COMPREHENSIVE (34228)Indication: Diabetes mellitus type II, controlled, with no complications On: 32-Jmm-36614:59 Request LIPID PANEL (99710)Indication: Hypercholesteremia On: :59 Request CBC W/AUTO DIFF WBC (19515)Indication: Diabetes mellitus type II, controlled, with no complications On: :59 Request Blood Glucose , Office (08147)Indication: Diabetes mellitus type II, controlled, with no complications On: 29-Upb-51765:51 Request Lipid Panel (45628)Indication: Hypercholesteremia On: 36-Yky-626349:10 Request HEPATIC FUNCTION PANEL (13320)Indication: Hypercholesteremia On: 63-Mfz-085200:10 Request LIPID PANEL (47342)Indication: Hypercholesteremia On: 78-Nim-79174:48 Request CPK TOTAL & ISOENZYMES (33799)Indication: Epigastric pain On: 25-Szw-885984:33 Request Urinalysis, Office (03400)Indication: Dysuria On: 8-Vvg-393233:01 Request CCP ANTIBODY (20199)Indication: Pain in joint, unspecified site On: 39-Twh-78120:51 Request STEVE (ANTINUCLEAR ANTIBODY) (56043)Indication: Myalgia On: 11-Qay-092861:24 Request CALCIFIDIOL (33868) VIT D 25Indication: Myalgia On: :20 Request TSH (47381)Indication: Myalgia On: :20 Request SED RATE ERYTHROCYTE (78379)Indication: Myalgia On: :20 Request STEVE (ANTINUCLEAR ANTIBODY) (99056)Indication: Myalgia On: 72-Hud-114791:20 Request Anti-Abigail-1 (84546)Indication: Myalgia On: :20 Request Creatine Kinase Total (69756)Indication: Myalgia On: 06-Nks-378938:19 Request C-Reactive Protein (27104)Indication: Myalgia On: 35-Bod-076129:19 Request HELICOBACTER PYLORI ANTIBODY (80576)Indication: Epigastric pain On: 35-Hrh-177654:21 Request Planned Procedures B 12 Injection, 1000 mcg On: 24-Jan-2018 Intent (J3420)By: Tammy Shaw Comments: lot:[id number]:July 2019site/route: L dltdamt: 1mlJasmin, CCMA B 12 Injection, 1000 mcg On: 05-Jan-2018 Intent (J3420)By: Leticia Pugh DO Comments: lot: [id number]: ite/route: R del/IMamt: 1mLVIS signed when applicableCRISTINO Caseytaya ISAACS Leticia B 12 Injection, 1000 mcg On: 09-Dec-2017 Intent (J3420)By: Leticia Pugh DO Comments: Vitamin B12 1000 mcg injectionLot--[id number]--jan 2019L Delt IMpt tolerated wellSUSI, MOTOR VEHICLE ASSEMBLER Lexy DO Leticia B 12 Injection, 1000 mcg On: 26-Nov-2017 Intent (J3420)By: Tammy Shaw Comments: lot:[id number]:jan 2019site/route:L deltoid amt:1ml 1,000mcg/mlJasmin, CCMA B 12 Injection, 1000 mcg On: 15-Nov-2017 Intent (J3420)By: Leticia Pugh DO Comments: lot: [id number]: 01/24site/route: L del/IMamt: 1mLVIS signed when applicableChelsCRISTINO mikeon [place] ISAACSeen INJECTION, VITAMIN B-12 On: 27-Oct-2017 Intent CYANOCOBALAMIN, UP TO 1000 MCG Comments: lot:[id number]:rte:IM right deltoid dose:1ml given by:fozia Overton LPN (Special Coverage Instructions Apply. See CIM: 45-4 and MCM: 2049) (J3420)By: Visit, Nurse B 12 Injection, 1000 mcg On: 15-Oct-2017 Intent (J3420)By: Visit, Nurse Comments: lot:[id number]:05/2019rte:IM left arm dose:1ml given by:fozia GALLEGOS signedER, MOTOR VEHICLE ASSEMBLER B 12 Injection, 1000 mcg On: 30-Sep-2017 Intent (J3420)By: Visit, Nurse Comments: [id number]/42506vq, 70863lwqm dltd, IMCM, NURSERY SUPERVISOR B 12 Injection, 1000 mcg On: 16-Sep-2017 Intent (J3420)By: Rolando Calderon Comments: Vitamin b12 1000mcg injection lot:[id number]:05/2018L DELT IMpt tolerated well MSMITH,MOTOR VEHICLE ASSEMBLER B 12 Injection, 1000 mcg On: 02-Sep-2017 Intent (J3420)By: Visit, Nurse Comments: 1 ml given rt arm lot [id number] EXP 05/24 B 12 Injection, 1000 mcg On: 19-Aug-2017 Intent (J3420)By: Rolando Calderon Comments: Vitamin b12 1000mcg injection lot:[id number]:12/2018L DELT IMpt tolerated well MSMITH,MOTOR VEHICLE ASSEMBLER B 12 Injection, 1000 mcg On: 06-Aug-2017 Intent (J3420)By: Leticia Pugh DO Comments: vitamin b12 1000mcg injectionlot: [id number]: 12/2018L DELT IMpt tolerated wellAD MOTOR VEHICLE ASSEMBLER Leticia Pugh DO B 12 Injection, 1000 mcg On: 22-Jul-2017 Intent (J3420)By: Leticia Pugh DO Comments: Vitamin b12 1000mcg injection lot:[id number]:12/2018R DELT IMpt tolerated well MSMITH,MOTOR VEHICLE ASSEMBLER Leticia Pugh DO B 12 Injection, 1000 mcg On: 09-Jul-2017 Intent (J3420)By: Leticia Pugh DO Comments: Vitamin b12 1000mcg injection lot:[id number]:12/2018L DELT IMpt tolerated well MSMITH,MOTOR VEHICLE ASSEMBLER Leticia Pugh DO B 12 Injection, 1000 mcg On: 24-Jun-2017 Intent (J3420)By: Leticia Pugh DO Comments: vitamin b12 1000mcg injectionlot: [id number]: 12/2018L DELT IMpt tolerated wellAD MOTOR VEHICLE ASSEMBLER Leticia Pugh DO B 12 Injection, 1000 mcg On: 11-Jun-2017 Intent (J3420)By: Christoph CHOPRA Tanvi Mary Comments: lot [id number] 07/2018rt hbtk4953 mcgas, MOTOR VEHICLE ASSEMBLER B 12 Injection, 1000 mcg On: 28-May-2017 Intent (J3420)By: Visit, Nurse Comments: [id number] dltd, IM Toradol Injection, 30 mg On: 28-May-2017 Intent (J1885)By: Visit, Nurse Comments: 91198mk5/2019R hip, IM30mg/2 unitsMLONG, MOTOR VEHICLE ASSEMBLER Toradol Injection, 30 mg On: 21-May-2017 Intent (J1885)By: Leticia Pugh DO Comments: toradol 30mg injectionlot: 82-863-HKisr: 10/2018L GMpt tolerated wellAD MOTOR VEHICLE ASSEMBLER Leticia Pugh DO X-RAY OF SACROILIAC JOINT On: 21-May-2017 Intent (11577)By: Leticia Pugh DO, DO, Kathleen B 12 Injection, 1000 mcg On: 13-May-2017 Intent (J3420)By: Visit, Nurse Comments: 7360699.32694kqM dltd, iMMEGAN, MOTOR VEHICLE ASSEMBLER B 12 Injection, 1000 mcg On: 29-Apr-2017 Intent (J3420)By: Leticia Pugh DO Comments: vitamin b12 1000mcg injectionlot: [id number]: 07/2018L DELT IMpt tolerated wellAD MOTOR VEHICLE ASSEMBLER Carole Pugh DOhleen B 12 Injection, 1000 mcg On: 16-Apr-2017 Intent (J3420)By: Yamilex Duffy Comments: vitamin b12 1000mcg injectionlot: 2799769.1exp: 07/2018L DELT IMpt tolerated wellAD MOTOR VEHICLE ASSEMBLER B 12 Injection, 1000 mcg On: 01-Apr-2017 Intent (J3420)By: Leticia Pugh DO Comments: vitamin b12 1000mcg injectionlot: [id number]: 07/2019L DELT IMpt tolerated wellAD MOTOR VEHICLE ASSEMBLER Lexy DO, Leticia B 12 Injection, 1000 mcg On: 18-Mar-2017 Intent (J3420)By: Leticia Pugh DO Comments: Lot:[id number]:07/2018Dose:1mlRoute:IMSite:l arm Given By:LATANYA signed Lexy DO Leticia [...] injectionlot: 7062exp: 04/2018L DELT IMpt tolerated wellAD MOTOR VEHICLE ASSEMBLER Lexy DO, Leticia B 12 Injection, 1000 mcg On: 01-Jan-2017 Intent (J3420)By: Leticia Pugh DO Comments: lot: [id number]: 04/26site/route: L del/IMamt: 1mLVIS signed when applicableCRISTINO Casey Lexy DO, Leticia B 12 Injection, 1000 mcg On: 18-Dec-2016 Intent (J3420)By: Leticia Pugh DO Comments: b12 1000mcg lot [id number]: 10/2017L Delt IMpt tolerated wellAD MOTOR VEHICLE ASSEMBLER Lexy DO Leticia B 12 Injection, 1000 [...] ite/route: L del/IMamt: 1mLVIS signed when applicableChelsea, NURSERY SUPERVISOR Lexy DO, Leticia B 12 Injection, 1000 mcg On: 23-Oct-2016 Intent (J3420)By: Visit, Nurse Comments: 0353398.16437ukQxvze DltdDarius lpn B 12 Injection, 1000 mcg [...] 19-May-2016 Intent (J3420)By: Tanvi Hawthorne CNP Comments: Lot:[id number]:09/2017Dose:1mlRoute:IMSite:l armGiven By:LATANYA signed Wax CurettesBy: Tanvi Hawthorne CNP On: 19-May-2016 Intent Ear Irrigation (13251)By: Christoph On: 19-May-2016 Intent Tanvi CHOPRA B [...] 1000 mcg On: 29-Jan-2016 Intent (J3420)By: Leticia Pugh DO Comments: B12lot:6185exp:ite:rt deltroute:IMdose:1mlD.JEANMARIE Ray Lexy DO, Leticia B 12 Injection, 1000 mcg On: 17-Jan-2016 Intent (J3420)By: Leticia Pugh DO Comments: Lot:[id number]:06/23Dose:1mlRoute:IMSite:l armGiven By:JKMVIS signed Lexy DO, Leticia B 12 Injection, 1000 mcg On: 19-Dec-2015 Intent (J3420)By: Leticia Pugh DO Comments: 6185 lot# exp4/18 left deltiod Leticia Pugh DO CAT SCAN OF ABDOMEN (64597)By: On: 12-Dec-2015 Intent Lexy DOLeticia Lexy DO, Leticia B 12 Injection, 1000 mcg On: 06-Dec-2015 Intent (J3420)By: Leticia Pugh DO Comments: B12lot:6185exp:ite:lt deltroute:IMdose:1mlD.JEANMARIE Ray Leticia Pugh DO Rocephin Injection, 2 Gram On: 04-Dec-2015 Intent (J0696)By: Tammy Ortez DO Comments: lot: [id number]: 03/08/18site/route: RGM and LGM/IMamt: 2GVIS signed when applicableChelscee NURSERY SUPERVISOR B 12 Injection, 1000 mcg On: 25-Nov-2015 Intent (J3420)By: Leticia Pugh DO Comments: Lot:615Exp:06/23Dose:1mlRoute:IMSite:l armGiven By:MLVIS signed Leticia Pugh DO B 12 Injection, 1000 mcg On: 08-Nov-2015 Intent (J3420)By: Leticia Pugh DO Comments: 1000 mcglot 29234/18left dltdIMas, MOTOR VEHICLE ASSEMBLER Leticia Pugh DO B 12 Injection, 1000 mcg On: 22-Oct-2015 Intent (J3420)By: Visit, Nurse Comments: 82165/181mlLdltdML, MOTOR VEHICLE ASSEMBLER B 12 Injection, 1000 mcg On: 03-Oct-2015 Intent (J3420)By: Henri Ray Comments: B12lot:6155exp:ite:rt deltroute:IMdose:1mlD.JEANMARIE Ray B 12 Injection, 1000 mcg On: 20-Sep-2015 Intent (J3420)By: Danika Caputo MD Comments: Lot:[id number]:07/23Dose:1mlRoute:IMSite:l armGiven By:JKARELYVIS signed B 12 Injection, 1000 mcg On: 05-Sep-2015 Intent (J3420)By: Leticia Pugh DO Comments: B12lot:5200exp:07/22site:rt glutroute:imdose:1mlD.JEANMARIE Ray DO, Kathleen TD VACCINE ADULT (45069)By: On: 04-Apr-2015 Intent Henri Ray TDAP VACCINE >7 IM (76385)By: On: 04-Apr-2015 Intent Henri Ray Comments: Tdaplot:UJ8YOlrg:01/24/17site:lt deltoidroute:ImDEMICk, MA B 12 Injection, 1000 mcg On: 04-Apr-2015 Intent (J3420)By: Henri Ray Comments: B12lot:5310exp:11/22site: rt deltroute:AFfxml8xrFCHVVT, MA B 12 Injection, 1000 mcg On: 25-Feb-2015 Intent (J3420)By: Henri Ray Comments: B12lot:[id number]:4/17site: rt delroute:IMdose:1mlDESHA B 12 Injection, 1000 mcg On: 28-Jan-2015 Intent (J3420)By: Leticia Pugh DO Comments: Lot:[id number]:06/22Dose:1mlRoute:IMSite:l armGiven By JETHRO signed Lexy DO Leticia B 12 Injection, 1000 mcg On: 01-Jan-2015 Intent (J3420)By: Leticia Pugh DO Comments: Lot:[id number]:06/22Dose:1mlRoute:IMSite:l armGiven By:GINETTEVIS signed Lexy DO, Leticia B 12 Injection, 1000 mcg On: 03-Dec-2014 Intent (J3420)By: Leticia Pugh DO Comments: lot: [id number]: 05/22site/route: L del/IMamt: 0.5mLVIS signed when applicableCRISTINO Casey Lexy DO, Leticia B 12 Injection, 1000 mcg On: 13-Sep-2014 Intent (J3420)By: Leticia Pugh DO Comments: Lot:[id number]:11.16Route:IMSite:R deltoidDose: 1 mLgiven by: CRISTINO Mathew DO, Kathleen B 12 Injection, 1000 mcg On: 05-Sep-2014 Intent (J3420)By: Leticia Pugh DO Comments: Lot:[id number]:3.16Route:IMSite:R deltoidDose: 1 mLgiven by: CRISTINO Mathew DO, Kathleen EKG (40325)By: Lexy ISAACS, On: 05-Sep-2014 Intent Leticia Reza [...] On: 17-May-2014 Intent (J3420)By: Visit, Nurse Comments: [id number] Dltd, IMMegan, LPN1ml MRI - Brain (IV [...] Hawthorne CNP On: 29-Jan-2014 Intent E EKG (36566)By: Lexy ISAACS, On: 30-Nov-2013 Intent Leticia Reza DO Comments: nsr no acute chg SPECIMEN HANDLING/TRANSPORT On: 20-Nov-2013 Intent (51556)By: [facility], [place] PNEUM VAC ADLT/IMUMNOSPR, On: 24-Nov-2012 Intent SBC/INTRM (18991)By: Lexy ISAACS, Comments: lot: [id number]: 09/24/13site/route: L deltoid/IMamt: 0.5mLVIS signed when applicableChelsea, NURSERY SUPERVISOR Leticia Lexy DO, Leticia Ultrasound - ThyroidBy: Lexy On: 24-Nov-2012 Intent DO, Leticia Lexy DO, Leticia IMMUNIZ ADMNIN, 1 VAC, SNGL/COMBO On: 24-Nov-2012 Intent (30759)By: Lexy DO, Leticia Lexy DO, Leticia Eprescribed prescriptions On: 24-Nov-2012 Intent (G8553)By: Carmela Chery EKG (52721)By: Yennifer Loya On: 15-Aug-2012 Intent ARAVIND Comments: nsr no acute chg Eprescribed prescriptions On: 15-Aug-2012 Intent (G8553)By: Yennifer Loya LPN Eprescribed prescriptions On: 16-May-2012 Intent (G8553)By: Lexy ISAACS, Leticia Lexy DO, Leticia Eprescribed prescriptions On: 15-Feb-2012 Intent (G8553)By: Yennifer Loya LPN EKG (85744)By: Lexy ISAACS, On: 24-Sep-2011 Intent Leticia Lexy DO, Leticia Comments: nsr no acute chg Radiology - Lumbar SpineBy: On: 24-Sep-2011 Intent Lexy DO, Leticia Lexy DO, Leticia SPECIMEN HANDLING/TRANSPORT On: 27-Jan-2011 Intent (42655)By: Enid Hart LPN VAC, SPLIT, >3 YEARS, On: 17-Dec-2010 Intent INTRAMUSC (86107)By: Lexy ISAACS, Comments: pt refused Leticia Lexy DO, Leticia Radiology - Knee - RightBy: On: 29-Sep-2010 Intent Lexy DO, Leticia Lexy DO, Leticia Radiology - Knee - LeftBy: Elxy On: 29-Sep-2010 Intent DO, Leticia Lexy DO, [...] Medicine - ThyroidBy: On: 27-Aug-2008 Intent Christoph [facility], Shey CT - ChestBy: Patito VIDALES, Danika Baer On: 07-Aug-2008 Intent Comments: ATTENTION SUPRACLAAVICULAR AREA MRI - Shoulder(s) - RightBy: On: 31-May-2008 Intent Leticia Pugh DO, DO, Leticia Radiology - Shoulder - RightBy: On: 14-May-2008 Intent Lexy ISAACS, Leticia Pugh DO, Leticia EKG (74445)By: Lexy ISAACS, On: 18-May-2007 Intent Leticia Reza [...] MCG/ML Injection Solution Ordered: 15-Feb-2017 Pending [facility] [place] Vitamin B-12 1000 MCG/ML Injection Solution [...] MCG/ML Injection Solution Ordered: 25-Feb-2015 Pending [place], [place] Vitamin B-12 1000 MCG/ML Injection Solution Ordered: 04-Apr-2015 Pending [place], [place] Vitamin B-12 1000 MCG/ML Injection Solution Ordered: 05-Sep-2015 Pending Lexy DO, Leticia Lexy DO, [place] Vitamin B-12 1000 MCG/ML Injection Solution Ordered: 20-Sep-2015 Pending Danika Caputo MD Vitamin B-12 1000 MCG/ML Injection Solution Ordered: 03-Oct-2015 Pending [place], [place] Vitamin B-12 1000 MCG/ML Injection Solution Ordered: [...] Advance Directives Name Dates Details Immunization Registry [place] - Effective on Effective: 17-Nov-201711/17/2017. Expiration date [...] Note for Urinary problems: Saw [facility] at [facility] had urine negEncounter Diagnosis: BMI 32.0-32.9,adult, [...] for Tdap vaccination (Renamed from Need for pdmeblkfrw-[id number] (Tdap) vaccine, adult/adolescent) End: 04-Apr-2015 15:25 Comprehensive [...]
--- OUTSIDE RECORDS SUMMARY | 2018-04-04 15:58 | XMS RPT_ITS | Continuity of Care Document ---
:1955 Author Organization [facility] Address [address] [facility] [address] [place] [address] Phone Care Team Providers Name Role Phone Leticia Pugh DO Unavailable Sangeetha ULLOA MD, Larry Powell Unavailable Jack Mayen MD Unavailable Jessica Cristobal Unavailable Sadiq Greer Unavailable Long ACCOUNTS RECEIVABLE ADMINISTRATOR, Allie L Unavailable Unavailable Tammy Shaw Unavailable [...] neg - pt will go back to steward/stewardess third for hormonal reasonsnot low bs when ck in middle of nite-- depending what traditional steward/stewardess third says maybe consider saliva testingwith recent abd [...] Comments: [facility] ?? tinnitis clinic at [facility] >pt to look into - Status: Active [...] DO, DO, Kathleen Start : 19-Aug-2016 Active BENCH TECHNICIAN Thyroid 30 MG Oral Tablet 1 (one) Tablet Tablet daily as directed for 0 days Quantity: 30 {Tablet} Refills: 5 Ordered:13-May-2017 Shari Pugh DO, DO, Kathleen Start : 04-Mar-2017 Active Pen Spooner 31G X 6 MM Miscellaneous 1 Misc [...] days Quantity: 30 {Tablet} Refills: 2 Ordered:13-Sep-2017 Lxey ISAACS LeticiaDariuszpatricia ISAACS Leticia Start : 13-Sep-2017 [...] : 17-Nov-2010 End : 17-Dec-2010 Inactive DRISDOL, 83767RWAH (Oral Capsule) 1 Capsule 2 xweek for [...] 09-Oct-2011 End : 14-Oct-2011 Inactive Comments:twenty ZOSTAVAX, 66239LTY/0.65ML (Subcutaneous Solution Reconstituted) 1 For Solution x1 [...] 17-Nov-2010 End : 17-Nov-2010 Discontinued Comments:diarrhea ERGOCALCIFEROL, 55410UYVQ (Oral Capsule) 1 (one) Capsule q week [...] for Tdap vaccination (Renamed from Need for lfnovcfpcu-alzvuif-baheihdag (Tdap) vaccine, adult/adolescent) (Z23, V06.1) Status: Inactive [...] w/ Contrast Result: Comments: See Note; NOTES: [facility] Cardiovascular Services [address] [place] [address] Stress Test Echo W/Contrast MR#: [id number] Acct: [id number] Name: RADHA RAMOS Rep #: [id number] : 1955 62 From: Marcus Sánchez MD Primary Care: Leticia Pugh DO Status: REG CLI Ordering Dr: Larry Ngo BENCH TECHNICIAN-C Sex: F C Stress Results Protocol: Stress [...] Dictated: 12/14/17 1343 Date Transcribed: 12/14/17 1521 Program Arranger: Signed 10-Dec-2017 PT D/C Summary (1) Result: Comments: See Note; NOTES: [facility] [place] [address] [facility] [place] [address] Fax [facility] MR#: [id number] Acct: [id number] Name: RADHA RAMOS Rep #: [id number] [...] please feel free to call me at [phone]. T elton you for the referral of this patient. Sincerely, Morgan Barnes PT, <Electronically signed by Morgan Barnes PT, Cert. T, [facility]> 12/10/17 0758 CC: Leticia Pugh DO; Gloria KNAPP Presh JOSSELINE Signed 07-Dec-2017 Cardiology Visit Report Result: Comments: See Note; NOTES: [facility] [address] [place] [address] OFFICE VISIT Date of Service: 12/07/17 MR#: [id number] Acct: [id number] Name: RADHA RAMOS Rep #: [id number] : 1955 Provider: DEMETRICE Ngo Age/Sex: 62/F Location: [facility] Status: Signed HPI HPI Details: RADHA RAMOS, [...] by Larry Ngo NP-C> Date Larry Ngo BENCH TECHNICIAN-C Cosigner Signature: Date (if applicable) CC: Leticia Pugh DO 07-Dec-2017 12 Lead EKG performed by [facility] Result: Comments: See Note; NOTES: [facility] [address] [facility] [address] [place] [address] 12 Lead EKG performed by [facility] 12/07/17910 MR#: [id number] Acct: [id number] Name: RADHA RAMOS Rep #: [id number] : 1955 62 From: Larry SPEARC Attending Dr: Larry Ngo, BENCH TECHNICIAN Status: DEP AMB Ordering Dr: Larry NgoC Date: 12/07/17 Location: [facility] Sex: F C Admitted: ORD ER #: [id number] [facility]/12 Lead EKG performed by [facility] 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 - Nonspecific T-abnormality. BNORMAL 12/07/17 1257 <Electronically signed by Larry Ngo BENCH TECHNICIAN-C&amp ;#62; Date Larry KNAPP CC: Leticia Pugh DO Date Dictated: 12/07/17910 Date Transcribed: 12/07/17910 Program Arranger: ISABEL Signed 07-Dec-2017 12 Lead EKG performed by [facility] Result: Comments: See Note; NOTES: [facility] [address] [place] [address] 12 Lead EKG performed by [facility] 12/07/17910 MR#: [id number] Acct: [id number] Name: RADHA RAOMS Rep #: [id number] : 1955 62 From: Larry KNAPP Attending Dr: Larry Ngo NP Status: DEP AMB Ordering Dr: Larry Ngo Date: 12/07/17 Location: [facility] Sex: F C Admitted: ORD ER #: [id number] [facility]/12 Lead EKG performed by [facility] ECG Report Interpretation Sinus Rhythm Poor R wave progressionElectronically signed on 12/08/2017 at 17:44 by Marcus Sánchez Software Version 8610 12/08/17 1746 Date Larry KNAPP CC: Leticia Pugh DO Date Dictated: 12/07/17910 Date Transcribed: 12/07/17910 Program Arranger: ISABEL Signed 28-Oct-2017 Inital Evaluation (1) - PT Result: Comments: See Note; NOTES: [facility] [address] [place], [place] [address] Fax REHABILITATION SERVICES INITIAL EVALUATION MR#: [id number] Acct: [id number] Name: RADHA RAMOS Rep #: [id number] [...] : No effect Lumbar Standing: Right Side Suches - Symptoms During Testing: Increases Lumbar Standing: Right Side Suches - Symptoms After Testing: No worse Lumbar Standing: Left Side Suches - Mechanical Resp onse: No effect Lumbar Standing: Left Side Suches - Symptoms During Testing: Increases Lumbar Standing: Left Side Suches - Symptoms After Testing: No worse Lumbar [...] to be FAXED BACK to us at [phone] for Medicare purposes. Please let me know if there are questions or concerns regarding this plan of care. Physician Signature: Date: <Electronically signed by Morgan Barnes PT, Ce rt. T, OCS> 10/28/17 1010 CC: Gloria Xei; Leticia Pugh DO JOSSELINE Signed For Medicare only, by signing this I certify the plan of care. Physicians Signature Date 26-Aug-2017 Downtime Report Result: Comments: See Note; NOTES: [facility] Medical Records Department [address] [place] [address] Downtime Report MR#: [id number] Acct: [id number] Name: RADHA RAMOS Rep #: [id number] : 1955 61 From: Herrera Hennessy PCP: Leticia Pugh DO Status: REG CLI This patient was seen during an EMR downtime August 09, 2017 - August 16, 2017. This patient may have a combination of paper and electronic documentation or all paper documentation. All documentation is viewable within the e-chart portion of [employer] for each patient visit. 21-Jul-2017 L/S Spine Min 4 Views Result: Comments: See Note; NOTES: [facility] Imaging Services [address] [place] [address] L/S Spine Min 4 Views MR#: [id number] Acct: [id number] Name: RADHA RAMOS Rep #: [id number] : 1955 F 61 From: Durga Peñaloza MD PCP: Leticia Pugh DO Status: REG CLI Study: L/S Spine Min 4 Views Date of Exam: 07/21/17 Exam# [id number] Ordering Dr: Joey Greer MD STUDY: X [...] , CC: Joey Greer; Leticia Pugh DO Program Arranger: Signed 25-Jun-2017 Cardiology Visit Report Result: Comments: See Note; NOTES: [facility] [address] [place] [address] OFFICE VISIT Date of Service: 06/24/17 MR#: [id number] Acct: [id number] Name: RADHA RAMOS Rep #: [id number] : 1955 Provider: Nimco Vasquez Age/Sex: 61/F Location: [facility] Status: Signed HPI HPI Details: RADHA RAMOS, [...] Pressure 138/82 Intake Visit Reasons: 6 M Hand Paster Required: No Accompanied by: none Is patient [...] More Views Result: Comments: See Note; NOTES: [facility] Imaging Services [address] [place] [address] S-I Jts 3 or More Views MR#: [id number] Acct: [id number] Name: RADHA RAMOS Rep #: [id number] : 1955 F 61 From: Frederick Pemberton MD PCP: Leticia Pugh DO Status: REG CLI Study: S-I Jts 3 or More Views Date of Exam: 05/21/17 Exam# [id number] Ordering Dr: Leticia Pugh DO STUD Y: [...] Service support , CC: Leticia Pugh DO Program Arranger: Signed 17-Mar-2017 Abdomen/Pelvis without Cont Result: Comments: See Note; NOTES: [facility] Imaging Services [address] [place] [address] Abdomen/Pelvis without Cont MR#: [id number] Acct: [id number] Name: RADHA RAMOS Rep #: [id number] : 1955 F 61 From: Rahel Salazar MD PCP: Leticia Pugh DO Status: REG CLI Study: Abdomen/Pelvis without Cont Date of Exam: 03/17/17 Exam# [id number] Ordering Dr: Casimiro Saravia MD STUDY: CT [...] at 16:04 EST Tel , Service support [phone], CC: Casimiro Saravia MD; Leticia Pugh DO Program Arranger: Signed 15-Feb-2017 Toe(s) Min 2 Views Result: Comments: See Note; NOTES: [facility] Imaging Services [address] [place] [address] Toe(s) Min 2 Views MR#: [id number] Acct: [id number] Name: RADHA RAMOS Rep #: [id number] : 1955 F 61 From: Juan Henriquez MD PCP: Leticia Pugh DO Status: REG CLI Study: Toe(s) Min 2 Views Date of Exam: 02/15/17 Exam# [id number] Ordering Dr: Tanvi Hawthorne STUDY: X-RAY LEFT [...] , Service support , CC: Tanvi Hawthorne BENCH TECHNICIAN; Leticia Pugh DO Program Arranger: Signed 22-Dec-2016 Stress Test Echo w/o Contrast Result: Comments: See Note; NOTES: [facility] Cardiovascular Services [address] [place] [address] Stress Test Echo w/o Contrast MR#: [id number] Acct: [id number] Name: RADHA RAMOS Rep #: [id number] : 1955 61 From: Marcus Sánchez MD [...] Dictated: 12/22/16 1307 Date Transcribed: 12/22/16 170 Program Arranger: Signed 19-Nov-2016 12 Lead Electrocardiogram Result: Comments: See Note; NOTES: [facility] Cardiovascular Services [address] [place] [address] 12 Lead EKG 11/14/16156 MR#: [id number] Acct: [id number] Name: RADHA RAMOS Rep #: [id number] : 1955 61 From: Guevara Casanova MD [...] Confirmed by SAMANTHA LI MD, GUEVARA ([id number]), news assignment editor JUNE HENNESSY ([id number]) on 11/16/2016 1:29:52 PM Referred By: GAL Confirmed By:GUEVARA CASANOVA MD 11/16/16 1329 Date Guevara Casanova MD CC: Leticia Pugh DO Date Dictated: 11/14/16156 Date Transcribed: 11/14/16156 Program Arranger: Signed 14-Nov-2016 Discharge Instruction Result: Comments: See Note; NOTES: [facility] Medical Records Department [address] [place] [address] Discharge Instruction 11/14/16 0345 MR#: [id number] Acct: [id number] Name: JEANMARIE RAMOS Rep #: [id number] : 1955 61 From: Roscoe Diaz MD [...] your Primary Care Provider. Call [facility] ([phone]) or report to the closest Emergency Room. Call 911 if necessary. 11/14/16 0637 <Electronically signed by Roscoe Diaz MD> Date Roscoe Maher Cosigner Signature (If Indicated): Date CC: Leticia Pugh DO 14-Nov-2016 Emergency Department Summary Result: Comments: See Note; NOTES: [facility] Medical Records Department [address] [place] [address] Emergency Department Summary 11/14/16 0343 MR#: [id number] Acct: [id number] Name: RADHA RAMOS Rep #: [id number] : 1955 61 From: Roscoe Diaz MD [...] your Primary Care Provider. Call [facility] ([phone]) or report to the closest Emergency Room. Call 911 if necessary. 11/14/16 0636 <Electronically kristin d by Roscoe Diaz MD> Date Roscoe Diaz MD Cosigner Signature (If Indicated): Date CC: Leticia Pugh 14-Nov-2016 Chest 1 View (Portable) Result: Comments: See Note; NOTES: [facility] Imaging Services [address] [place] [address] Chest 1 View (Portable) MR#: [id number] Acct: [id number] Name: RADHA RAMOS Rep #: [id number] : 1955 F 61 From: Nelson Coronado PCP: Leticia Pugh DO Status: REG ER Study: Chest 1 View (Portable) Date of Exam: 11/14/16 Exam# [id number] Ordering Dr: Roscoe Diaz MD STUDY: X- [...] CC: Leticia Pugh DO; Roscoe Diaz MD Program Arranger: Signed 13-Nov-2016 US Thyroid Biopsy Result: Comments: See Note; NOTES: [facility] Imaging Services [address] [address] US Thyroid Biopsy MR#: [id number] Acct: [id number] Name: RADHA RAMOS Rep #: [id number] OB: 1955 F 61 From: Ross Saxena MD PCP: Leticia Pugh DO Status: REG CLI Study: US Thyroid Biopsy Date of Exam: 11/13/16 Exam# [id number] Ordering Dr: James aCsey MD STUDY: THYROID ULTRASOUND REASON FOR EXAM: [...] Ross Saxena MD at 12:24 EDT Tel [phone], Service support , CC: James Casey MD; Leticia Pugh DO Program Arranger: Signed 24-Sep-2016 Thyroid Result: Comments: See Note; NOTES: [facility] Imaging Services [address] [place] [address] [address] Thyroid MR#: [id number] Acct: [id number] Name: RADHA RAMOS Rep #: [id number] : 1955 F 60 From: Kalpana Sharp MD PCP: Leticia Pugh DO Status: REG CLI Study: Thyroid Date of Exam: 09/24/16 Exam# [id number] Ordering Dr: Lety Ball BENCH TECHNICIAN-C STUDY: THYROID ULTRASOUND REASON FOR EXAM: Female, [...] , Service support , CC: Lety Ball BENCH TECHNICIAN; Leticia Pugh DO Program Arranger: Signed 11-Aug-2016 SCREENING MAMM (CAD), BILAT Result: Comments: See Note; NOTES: [facility] Imaging Services [address] [place] [address] Verdana 4d SCREENING MAMM (CAD), BILAT MR#: [id number] Acct: [id number] Name: RADHA RAMOS Rep #: [id number] : 1955 F 60 From: Ross Saxena MD PCP: Leticia Pugh DO Status: [facility] Study: SCREENING MAMM (CAD), BILAT Date of Exam: 08/11/16 Exam# [id number] Ordering Dr: Zhane Martinez MD MAMMOGRAPHY - [...] delay biopsy of a clinically suspicious abnormality. [id number] Electronically Signed: Ross Saxena MD at 13:32 EDT Tel [phone], Service support , CC: Zhane Angeles MD; Leticia Pugh DO Program Arranger: Signed 17-Jul-2016 Upper GI w/BA Swallow Result: Comments: See Note; NOTES: [facility] Imaging Services [address] [place] [address] Verdana 4d Upper GI w/BA Swallow MR#: [id number] Acct: [id number] Name: RADHA RAMOS Rep #: [id number] : 1955 F 60 From: Coreen Mata MD PCP: Leticia Pugh DO Status: REG CLI Study: Upper GI w/BA Swallow Date of Exam: 07/17/16 Exam# [id number] Ordering Dr: James Garrido MD CLINICAL HISTORY: [...] , CC: Leticia Pugh DO; James Garrido Program Arranger: Signed 27-Feb-2016 Chest PA and Lateral Result: Comments: See Note; NOTES: [facility] Imaging Services [address] [place] [address] Ver[address] 4d Chest PA and Lateral MR#: [id number] Acct: [id number] Name: RADHA RAMOS Rep #: [id number] : 1955 F 60 From: Segun Loomis MD PCP: Leticia Pugh DO Status: REG CLI Study: Chest PA and Lateral Date of Exam: 02/27/16 Exam# [id number] Ordering Dr: Leticia Pugh DO STUD Y: [...] at 15:10 EST Tel , Service support [phone], CC: Leticia Pugh DO Program Arranger: Signed 24-Feb-2016 Wound Heal Ctr Progress Note Result: Comments: See Note; NOTES: [facility] [address] [place] [address] [facility] Progress Note 02/24/16 1305 MR#: [id number] Acct: [id number] Name: Keyur RAMOS Rep #: [id number] : 1955 60 From: Ruslan Sesay MD [...] mellitus macular edema: D Lisa betes mellitus custodial insulin use: with custodial use Laterality: L Chronic kidney disease stage: C Qualified Code(s): E11.9 - Type 2 diabetes mellitus without complications; Z79.4 - correction (curre nt) use of insulin Code(s): E11.9 [...] Date Recorded By Document 02/24/16 12:35 CHRIS [id number] 02/24/16 12:38 CHRIS 02/24/16 12:35 Wound Center [...] Date Recorded By Document 02/24/16 12:38 CHRIS [id number] 02/24/16 12:39 CHRIS 02/24/16 12:38 Wound Center [...] after Cleansing No -Bioengineered Tissue No -Cetacaine [place] No -Bleedin g Controlled with NA -Treatment [...] Recorded Date Recorded By Document 02/24/16 12:38 [facility] 993 02/24/16 12:39 CHRIS 02/24/16 12:38 Wound [...] ter Cleansing No -Bioengineered Tissue No -Cetacaine [place] No -Bleeding Controlled with NA -Treatment Response [...] Progress Note Result: Comments: See Note; NOTES: [facility] [address] [facility] [place] [address] W[facility]al C[facility] Progress Note 02/10/16 1325 MR#: [id number] Acct: [id number] Name: Keyur RAMOS Rep #: [id number] : 1955 60 From: Ruslan Sesay MD [...] mellitus macular edema: D Diab etes mellitus longwall machine operator helper insulin use: with longwall machine operator helper use Laterality: L Chronic kidney disease stage: C Qualified Code(s): E11.9 - Type 2 diabetes mellitus without complications; Z79.4 - exterminator termite (curren t) use of insulin Code(s): E11.9 [...] Date Recorded By Document 02/10/16 13:01 DL [id number] 02/10/16 13:07 DL 02/10/16 13:01 Wound Center Nurse 1 [Ulcer Assessment] 1-abdomen -Current Size (cm) - Length 0 -Current Size (cm) - Width 0 -Current Size (cm) - Depth 0 -Total Square Cm 0 -Photo Take n Yes -Exudate Amt None Present (0 %) -Wound Margin Flat AND Intact -Granulation Amt Large (67-100%) -Granulation Quality [place] -Necrosis Amt None Present (0 %) -Structure [...] Date Recorded By Document 02/10/16 13:15 MW [id number] 02/10/16 13:17 MW 02/10/16 13:15 Wound Center Nurse 2 [P rocedure/Treatment] -Time 13:16 -Correct Patient Yes -Correct Side, Site, Position Yes -Correct Procedure Yes -Procedure Performed No -Wound/Ulcer Outcome Not Healed -Ulcer Cleansing Not Cleansed -Foul Odor after Cleansing No -Bioengineered Tissue No -Cetacaine [place] No -Topical Lidocaine (%) 4 -Lidocaine (ml) [...] Date Recorded By Document 02/10/16 13:15 MW [id number] 02/10/16 13:17 MW 02/10/16 13:15 Wound Center Nurse 2 1-abdomen -Time 13:16 - Correct Patient Yes -Correct Side, Site, Posi tion Yes -Correct Procedure Yes -Procedure Performed No -Wound/Ulcer Outcome Not Healed -Ulcer Cleansing Not Cleansed -Foul Odor after Cleansing No - Bioengineered Tissue No -Cetacaine [place] No -Topical Lidocaine (%) 4 -Lidocaine (ml) [...] Progress Note Result: Comments: See Note; NOTES: [facility] Wound Healing Center [facility] [place] [address] Wound Heal Ctr Progress Note 02/03/16 1336 MR#: [id number] Acct: [id number] Name: Keyur RAMOS Rep #: [id number] : 1955 60 From: Ruslan Sesay MD [...] Diabetes mellitus macular edema: D Diabetes mellitus longwall machine operator helper insulin use: with custodial use Latera lity: L Chronic kidney disease [...] Recorded Date Recorded By Document 13:02 DL [id number] 02/03/16 13:09 DL 02/03/16 13:02 Wound Center Nurse 1 [Ulcer Assessment] 1-abdomen -Current Size (cm) - Length 0.5 -Current Size (cm) - Width 2.4 -Current Size (cm) - Depth 0.3 -Tota l Square Cm 1.20 -Photo Taken No -Exudate Amt Small (1-33%) -Exudate Type Serosanguineous -Wound Margin Distinct, Outline Attached -Granulation Amt Large (67-100%) - Granulation Quality [place] -Necrosis Am t Small (1-33%) -Necrotic Tissue [...] Date Recorded By Document 02/03/16 13:28 CHRIS [id number] 02/03/16 13:32 CHRIS 02/03/16 13:28 Wound Center [...] Cleansing No -Bioengi neered Tissue No -Cetacaine [place] No -Topical Lidocaine (%) 4 -Lidocaine (ml) [...] Date Recorded By Document 02/03/16 13:28 CHRIS [id number] 02/03/16 13:32 JS 02/03/16 13:28 Wound Center [...] after Cleansing No -Bioengineered Tissue No -Cetacaine [place] No -Topical Lidocaine (%) 4 -Lidocaine (ml) [...] Progress Note Result: Comments: See Note; NOTES: [facility] [address] [facility] [place] [address] W[facility]al C[facility] Progress Note 01/27/16 1333 MR#: [id number] Acct: [id number] Name: Keyur RAMOS Rep #: [id number] : 1955 60 From: Ruslan Sesay MD [...] Diabetes mellitus macular edema: D Diabetes mellitus longwall machine operator helper insulin use: with custodial use Laterali ty: L Chronic kidney disease [...] Recorded Date Recorded By Document 01/27/16 12:44 [id number] 01/27/16 12:54 01/27/16 12:44 Wound Center Nurse [...] Date Recorded By Document 01/27/16 13:23 MW [id number] 01/27/16 13:31 MW 01/27/16 13:23 Wound Center Nurse 2 [Procedure/Treatment] 1-abdomen -Time 13 :24 -Correct Patient Yes -Correct Side, Site, Position Yes -Correct Procedure Yes -Procedure Performed No -Wound/Ulcer Outcome Not Healed -Ulcer Cleansing Rinsed/ Irrigated with Saline -Foul Odor after Cleansing No -Bioengineered Tissue No -Cetacaine [place] No -Bleeding Controlled with NA [See Physician [...] Date Recorded By Document 01/27/16 13:23 MW [id number] 01/27/16 1 3:31 MW 01/27/16 13:23 Wound Center Nurse 2 1-abdomen -Time 13:24 -Correct Patient Yes -Correct Side, Site, Position Yes -Correct Procedure Yes -Procedure Performed No -Wound/Ulcer Outcome Not Healed - Ulcer Cleansing Rinsed/ Irrigated with Saline -Foul Odor after Cleansing No -Bioengineered Tissue No -Cetacaine [place] No -Bleeding Controlled with NA No debridement [...] Progress Note Result: Comments: See Note; NOTES: [facility] W[facility] [address] [place] [address] W[facility]al C[facility] Progress Note 01/20/16 1521 MR#: [id number] Acct: [id number] Name: RADHA RAMOS Rep #: [id number] : 1955 60 From: Ruslan Sesay MD [...] Diabetes mellitus complication status: without complication Diabetes [facility] custodial insulin use: with longwall machine operator helper use Qualifier Code : (E11.9) Type 2 [...] Record ed By Document 01/20/16 14:33 DL [id number] 01/20/16 14:36 DL 01/20/16 14:33 Wound Center [...] Recorded Date Recorded By Document 01/20/16 15:06 [id number] 01/20/16 15:07 01/20/16 15:06 Wound Center Nurse 2 [Procedure/Treatment] -Time 15:06 -Correct Patient Yes -Correct Side, Site, Position Yes -Correct Procedure Yes -Procedure Performed No -Wound/Ulcer Outcome Not Healed -Ulcer Cleansing Rinsed/ Irrigated with Saline -Foul Odor after Cleansing No -Bioengineered Tissue No - Cetacaine [place] No [See Physician Procedure note for Specifics] [...] Recorded Date Recorded By Document 01/20/16 15:06 [id number] 01/20/16 15:07 01/20/16 15:06 Wound Center Nurse 2 1-abdomen -Time 15:06 - Correct Patient Yes -Correct Side, Site, Po sition Yes -Correct Procedure Yes -Procedure Performed No -Wound/Ulcer Outcome Not Healed -Ulcer Cleansing Rinsed/ Irrigated with Saline -Foul Odor after Cleansing No -Bioengineered Tissue No -Cetacaine [place] No No debridement was completed today Assessment/Plan [...] Progress Note Result: Comments: See Note; NOTES: [facility] [address] [place] [address] W[facility]al [facility] Progress Note 01/06/16 1307 MR#: [id number] Acct: [id number] Name: RADHA RAMOS Rep #: [id number] : 1955 60 From: Ruslan Sesay MD PCP: Leticia Pugh DO Status: REG RCR Y Location: WC (1) Abscess of abdominal wall Status: Acute Current Visit: Yes Code: L02.2 11 (2) Diabetes mellitus Status: Chronic Current Visit: Yes Qualifiers: Diabetes mellitus type: type 2 Diabetes mellitus complication status: with skin complications Diabetes mellitus complication deta il: with other skin complication Diabetes mellitus custodial insulin use: with custodial use Qualifier Code: (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 for further management. Progress of [...] Date Recorded By Document 01/06/16 12:42 TM [id number] 01/06/16 12:51 01/06/16 12:42 Wound Center Nurse [...] Date Recorded By Document 01/06/16 12:54 DV [id number] 01/06/16 13:00 DV 01/06/16 12:54 Wound Center Nurse 2 [Procedure/Treatment] -Time 12:59 -Correct Patient Yes -Correct Side, Site, Position Yes -Correct Procedure Yes -Procedure Performed No -Wound/Ulcer Outcome Not Healed -Ulcer Cleansing Rinsed/ Irrigated with Saline -Foul Odor after Cleansing No -Bioengineered Tissue No -Cetacaine [place] No -Bleeding Controlled with NA -Treatment Response [...] Date Recorded By Document 01/06/16 12:54 DV [id number] 01/06/16 13:00 DV 01/06/16 12:54 Wound Center Nurse 2 1-abdomen -Time 12:59 -Correct Patient Yes -Correct Side, Site, Position Yes -Tamar ect Procedure Yes -Procedure Performed No -Wound/Ulcer Outcome Not Healed -Ulcer Cleansing Rinsed/ Irrigated with Saline -Foul Odor after Cleansing No - Bioengineered Tissue No -Cetacaine [place] No -Bleed ing Controlled with NA -Treatment Response Procedure Tolerated Well No debridement was completed today Assessment/Plan Active Problems Abscess of abdominal wall (Acute) Wound, open, abdominal wall, anterior (Acute) Diabetes mellitus (Chronic) Assessment: This is a 60-year-old diabetic female who is in her normal state of health until approximately 3 weeks prior to presentation, at [facility] time she developed an abscess [...] Progress Note Result: Comments: See Note; NOTES: [facility] Wound [facility]aling Center [address] [place] [address] Wound Heal Ctr Progress Note 12/30/15 1625 MR#: [id number] Acct: [id number] Name: RADHA RAMOS Rep #: [id number] : 1955 60 From: Ruslan Sesay MD PCP: Leticia Pugh DO Status: REG RCR Y Location: WC (1) Abscess of abdominal wall Status: Acute Current Visit: Yes Code: L02.2 11 (2) Diabetes mellitus Status: Chronic Current Visit: Yes Qualifiers: Diabetes mellitus type: type 2 Diabetes mellitus complication status: with skin complications Diabetes mellitus complication deta il: with other skin complication Diabetes mellitus custodial insulin use: with custodial use Qualifier Code: (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 Code: E11.9 (3) Hyperlipide grzegorz Status: Chronic Current Visit: No Qualifiers: Hyperlipidemia type: mixed hyperlipidemia Qualifier Code: (E78.2) Mixed hyperlipidemia Code: E78.5 (4) Wound, open, abdominal wall, anterior Status: Ac koi Current Visit: Yes Qualifiers: Encounter type: subsequent [...] Date Recorded By Document 6 14:19 TM [id number] 12/30/15 14:37 TM 12/30/15 14:19 Wound Center [...] Thickened -Granulation Amt Small (1-33%) -Granulation Quality [place] Red -Slough/Fibrin Yes -Necro sis Amt Small [...] Recorded Date Recorded By Document 12/30/15 16:21 [id number] 12/30/15 16:22 JS 12/30/15 16:21 Wound Center Nurse 2 [P rocedure/Treatment] 1-abdomen -Time 16:21 -Correct Patient Yes -Correct Side, Site, Position Yes -Correct Procedure Yes -Procedure Performed No -Wound/Ulcer Outcome Not Healed -Ulcer Cleansing Rinsed/ I rrigated with Saline -Foul Odor after Cleansing No -Bioengineered Tissue No -Cetacaine [place] No -Bleeding Controlled with NA -Treatment Response [...] Recorded Date Recorded By Document 12/30/15 16:21 [id number] 12/30/15 16:22 12/30/15 16:21 Wound Center Nurse 2 1-abdomen -Time 16:21 -Correct Patient Yes -Correct Side, Site, Position Yes -Correct Procedure Yes -Procedure Performed No -Wound/Ulcer Outcome Not Healed -Ulcer Cleansing Rinsed/ Irrigated with Saline -Foul Odor after Cleansing No -Bioengi neered Tissue No -Cetacaine [place] No -Bleeding Controlled with NA -Treatment Response [...] AND Physical Result: Comments: See Note; NOTES: [facility] [address] [place] [address] Wound Ctr History AND Physical 12/23/15 1708 MR#: [id number] Acct: [id number] Name: RADHA TERRY Rep #: [id number] : 1955 60 From: Ruslan Sesay MD PCP: Leticia Pugh DO Status: REG RCR Y Location: WC (1) Abscess of abdominal wall Status: Acute Current Visit: Yes Code: L02 .211 (2) Diabetes mellitus Status: Chronic Current Visit: Yes Qualifiers: Diabetes mellitus type: type 2 Diabetes mellitus complication status: with skin complications Diabetes mellitus complication de tail: with other skin complication Diabetes mellitus custodial insulin use: with custodial use Qualifier Code: (E11.628) Type 2 diabetes [...] tumor. 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 Lives: Spouse/ Significant Other Smoking Status: [...] Recorded Date Recorded By Document 12/23/15 15:16 [id number] 12/23/15 15:38 12/23/15 15:16 Wound Center Nurse [...] Recorded Date Recorded By Document 12/23/15 16:42 [id number] 12/23/15 16:44 JS 12/23/15 16: 42 Wound Center Nurse 2 [Procedure/Treatment] 1-abdomen -Time 16:42 -Correct Patient Yes -Correct Side, Site, Position Yes -Correct Procedure Yes -Wound/Ulcer Outcome Not Healed -Ulcer Cleansing Rinsed / Irrigated with Saline -Foul Odor after Cleansing No -Bioengineered Tissue No -Cetacaine [place] No -Bleeding Controlled with NA -Treatment Response [...] Recorded Date Recorded By Document 12/23/15 16:42 [id number] 12/23/15 16:44 12/23/15 16:42 Wound Center Nurse 2 1-abdomen -Time 16:42 -Correct Patie nt Yes -Correct Side, Site, Position Yes -Correct Procedure Yes -Wound/Ulcer Outcome Not Healed -Ulcer Cleansing Rinsed/ Irrigated with Saline -Foul Odor after Cleansing No -Bioengineered Tissue No -Cet acaine [place] No -Bleeding Controlled with NA -Treatment Response [...] WITH Contrast Result: Comments: See Note; NOTES: [facility] Imaging Services [address] [place] [address] Verdana 4d Abdomen/Pelvis WITH Contrast MR#: [id number] Acct: [id number] Name: MILO RAMOS Rep #: [id number] : 1955 F 60 From: Jack Hernandez MD PCP: Leticia Pugh DO Status: REG CLI Study: Abdomen/Pelvis WITH Contrast Date of Exam: 12/12/15 Exam# [id number] Ordering Dr: Leticia Pugh DO STUDY: CT [...] MD at 17:46 EDT , Service support [phone], CC: Leticia Pugh DO Program Arranger: Signed 25-Oct-2015 Chest WITH Contrast Result: Comments: See Note; NOTES: [facility] Imaging Services [address] [place] [address] Verdana 4d Chest WITH Contrast MR#: [id number] Acct: [id number] Name: RADHA RAMOS Rep #: [id number] : 1955 F 60 From: Emerson Centeno MD PCP: Leticia Pugh DO Status: REG CLI Study: Chest WITH Contrast Date of Exam: 10/25/15 Exam# [id number] Ordering Dr: Marcus Sánchez MD [facility] DY: CT CHEST WITH CONTRAST [...] MD at 21:00 EDT , Service support [phone], CC: Leticia Pugh DO; Marcus Sánchez MD Program Arranger: Signed 05-Sep-2015 ELECTROCARDIOGRAM, COMPLETE (ECG) (19663) Comments: nsr no acute chg Result: [MEASUREMENTS ANALYSIS] Date of Test: 09/05/2015 14:41:33; Heart Rate: 82; RI Interval: 152; QRS: 100; QT Interval: 366; Corrected QT Interval (QTc): 404; P Wave [place]: 62; QRS Wave [place]: 42; T Wave [place] : 23; Blood Pressure: 122/82 [ECG DIAGNOSTIC STATEMENTS] Date of Test: 09/05/2015 14:41:33; Summary: Sinus Rhythm WITHIN NORMAL LIMITS 08-Aug-2015 Bilat Scrn Digital AND CAD Result: Comments: See Note; NOTES: [facility] Imaging Services [address] [place] [address] Verdana 4d Bilat Scrn Digital AND CAD MR#: [id number] Acct: [id number] Name: RADHA RAMOS Rep #: [id number] : 1955 F 59 From: Ross Saxena MD PCP: Leticia Pugh DO Status: REG CLI Study: Bilat Scrn Digital AND CAD Date of Exam: 08/08/15 Exam# [id number] [facility] Dr: Zhane Angeles MD MAMMOGRAPHY - BILATERAL [...] will be sent to the patient by [facility] facility within 30 days. Approximately 10% of breast cancers are not detected by mammography. A normal mammogram should not delay biopsy of a clinically suspicious abnormality. [id number] Electron ically Signed: Ross Saxena MD at 10:53 EDT Tel [phone], Service support [phone], CC: Zhane Angeles MD; Leticia Pugh DO Program Arranger: Signed 15-Mar-2015 ELECTROCARDIOGRAM, COMPLETE (ECG) (83038) Result: [MEASUREMENTS ANALYSIS] Date of Test: 03/15/2015 11:59:12; Heart Rate: 78; RI Interval: 126; QRS: 100; QT Interval: 380; Corrected QT Interval (QTc): 411; P Wave [place]: 39; QRS Wave [place]: 44; T Wave [place] : 27; Blood Pressure: 126/82 [ECG DIAGNOSTIC STATEMENTS] Date of Test: 03/15/2015 11:59:12; Summary: Sinus Rhythm WITHIN NORMAL LIMITS 13-Feb-2015 PT D/C of Non Returning Pt. Result: Comments: See Note; NOTES: [facility]. [address] [place] [address] Fax REHABILITATION SE RVICES DISCHARGE SUMMARY MR#: [id number] Acct: [id number] Name: RADHA RAMOS Rep #: [id number] : 1955 59 From: Morgan Barnes Referring [...] - PT Result: Comments: See Note; NOTES: [facility]. [address] [place] [id number] Fax REHABILITATION SERVICES INITIAL EVALUATION MR#: [id number] Acct: [id number] Name: RADHA RAMOS Rep #: [id number] : 1955 59 From: Morgan Barnes Referring Dr.: Joey Kebede DPM Status: REG R Insurance: Room Choice [facility] Date: DATE OF SERVICE: 11/29/2014 PHYSICIAN: [...] cuff repair. VOCATION: The patient works at [employer]. OBJECTIVE: OBSERVATION OF POSTURE: The patient has [...] exercises. Morgan Barnes, PT T: ADIS JOB: [id number] <Electronically signed by Morgan Barnes > 12/05/14 1319 CC: Signed For Medicare only, by signing this I certify the plan of care. Physicians Signature Date 28-Sep-2014 Discharge Instruction Result: Comments: See Note; NOTES: [facility] Medical Records Department [address] [place] [address] Instructions for Home/Discharge Instructions 09/28/14 1826 MR#: [id number] ct: [id number] Name: RADHA RAMOS Rep #: [id number] : 1955 58 From: Joey Kebede DPM PCP: Leticia Pugh DO Status: REG [facility] Discharge Diet: Light diet [...] 3 Views Result: Comments: See Note; NOTES: [facility] Imaging Services [address] [place], [place] [address] Radiology Report MR#: [id number] Acct: [id number] Name: RADHA RAMOS Rep #: [id number] : 1955 F 58 From: Rohit Zamarripa MD PCP: Leticia Pugh DO Status: [facility] Study: Foot min 3 Views Date of Exam: 09/28/14 Exam# [id number] Ordering Dr: Joey Kebede DPM STUDY: X-RAY [...] FACR at 20:28 EDT , Service support [phone], RAD/Foot min 3 Views IMPRESSION: Status post osteotomy of the posterior pr ocess of the calcaneus and stabilization with a cannulated screw. Alignment is anatomical and no immediate post surgical complications are seen. Cast is in place. Electronically Signed: Rohit laird MD, FACR at 20:28 EDT , Service support [phone], CC: Joey Kebede DPM; Leticia Pugh DO Program Arranger: Signed 28-Sep-2014 Calcaneus min 2 Views Result: Comments: See Note; NOTES: [facility] Imaging Services [address] [place] [address] Radiology Report MR#: [id number] Acct: [id number] Name: RADHA RAMOS Rep #: [id number] : 1955 F 58 From: Rohit Zamarripa MD PCP: Leticia Pugh DO Status: [facility] Study: Calcaneus min 2 Views Date of Exam: 09/28/14 Exam# [id number] Ordering Dr: Joey Kebede DPM Mindy MURPHY: [...] FACR at 20:32 EDT , Service support [phone], RAD/Calcaneus min 2 Views IMPRESSION: Status Post osteotomy of the posterior process of the calcaneus and stabilization with a cannulated screw. Alignment is anatomical and no immediate post surgical complications are seen. Electronically Signed: Rohit Zamarripa MD, FACR at 20:32 EDT , Service support [phone], CC: Joey Kebede DPM; Leticia Pugh DO Program Arranger: Signed 27-Aug-2014 Lower Ext Joint Only (Routine) Result: Comments: See Note; NOTES: [facility] Imaging Services [address] [facility] [place] [address] MRI Report MR#: [id number] Acct: [id number] Name: RADHA RAMOS Rep #: [id number] : 1955 F 58 From: Rohit Zamarripa MD PCP: Leticia Pugh DO Status: REG CLI Study: Lower Ext Joint Only (Routine) Date of Exam: 08/27/14 Exam# [id number] Ordering Dr: Joey Kebede DPM STUDY: MRI [...] FACR at 17:00 EDT , Service support [phone], Fax CC: Joey Kebede MD; Leticia Pugh DO Program Arranger: Signed 27-Aug-2014 Lower Ext Joint Only (Routine) Result: Comments: See Note; NOTES: [facility] Imaging Services [address] [place] [address] MRI Report MR#: [id number] Acct: [id number] Name: RADHA RAMOS Rep #: [id number] : 1955 F 58 From: Rohit Zamarripa MD PCP: Leticia Pugh DO Status: REG CLI Study: Lower Ext Joint Only (Routine) Date of Exam: 08/27/14 Exam# [id number] Ordering Dr: Joey Kebede DPM ADDENDUM by [...] FACR at 14:08 EDT , Service support [phone], 09/17/14 1408 Date cc: Joey Kebede DPM; [...] at 17:00 EDT , Service suppor t [phone], CC: Joey Kebede DPM; Leticia Pugh DO Program Arranger: Signed 03-Aug-2014 Bilat Scrn Digital AND CAD Result: Comments: See Note; NOTES: [facility] Imaging Services [address] [place] [address] Breast Imaging Report MR#: [id number] Acct: [id number] Name: RADHA RAMOS Rep #: [id number] : 1955 F 58 From: Ross Saxena MD PCP: Leticia Pugh DO Status: REG CLI Study: Faviola Vincent Digital AND CAD Date of Exam: 08/03/14 Exam# [id number] Ordering Dr: Lelo Angeles MD MAMMOGRAPHY - [...] [facility]. Approximately 10% of breast cancers are not detected by mammography. A normal mammogram should not delay biopsy of a clinically suspicious abnormality. Electronically Kristin d: Ross Saxena MD at 13:16 EDT Tel [phone], Service support [phone], CC: Zhane Angeles MD; Leticia Pugh DO Program Arranger: Signed 03-Aug-2014 Bilat Scrn Digital AND CAD Result: Comments: See Note; NOTES: [facility] Imaging Services [address] [facility] [place] [address] Breast Imaging Report MR#: [id number] Acct: [id number] Name: RADHA RAMOS Rep #: [id number] : 1955 F 58 From: Ross Saxena MD PCP: Leticia Pugh DO Status: REG CLI Study: Bilat Scrpatricia Digital AND CAD Date of Exam: 08/03/14 Exam# [id number] Ordering Dr: Lelo Angeles MD MAMMOGRAPHY - [...] be sent to the patient by the [facility] within 30 days. Approximately 10% of breast cancers are not detected by mammography. A normal mammogram should not delay biopsy of a clinically suspicious abnormality. Electronically Kristin d: Ross Saxena MD at 13:16 EDT Tel [phone], Service support [phone], CC: Zhane Angeles MD; Leticia Pugh DO Program Arranger: Signed 03-Aug-2014 Bilat Scrn Digital AND CAD Result: Comments: See Note; NOTES: [facility] Imaging Services [address] [place] [address] Breast Imaging Report MR#: [id number] Acct: [id number] Name: RADHA RAMOS Rep #: [id number] : 1955 F 58 From: Ross Saxena MD PCP: Leticia Pugh DO Status: REG CLI Study: Bilhaley Vincent Digital AND CAD Date of Exam: 08/03/14 Exam# [id number] Ordering Dr: Lelo Angeles MD MAMMOGRAPHY - [...] Ross Saxena MD at 13:16 EDT Tel [phone], Service support [phone], CC: Zhane Angeles MD; Leticia Pugh DO Program Arranger: Signed 05-Jul-2014 PT Discharge Summary Result: Comments: See Note; NOTES: [facility] [address] [place] [address]. [address] [place] [address] Fax REHABILITATION SERVICES DISCHARGE SUMMARY MR#: [id number] Acct: [id number] Name: RADHA RAMOS Rep #: [id number] : 1955 58 From: Morgan Barnes Referring [...] Sincerely, Morgan Barnes, PT T: ADIS JOB: [id number] <Electronically signed by oMrgan Barnes > 07/05/14 1429 CC: Signed 18-May-2014 Brain W/WO Contrast Result: Comments: See Note; NOTES: [facility] Imaging Services [address] [place] [address] MRI Report MR#: [id number] Acct: [id number] Name: RADHA RAMOS Rep #: [id number] D OB: 1955 F 58 From: Yolanda Vitale MD PCP: Leticia Pugh DO Status: REG CLI Study: Brain W/WO Contrast Date of Exam: 05/18/14 Exam# [id number] Ordering Dr: Leticia Pugh DO STUDY: MRI [...] MD at 17:10 EDT , Service support [phone], CC: Leticia Pugh DO Program Arranger: Signed 18-May-2014 Spine Cervical (Routine) Result: Comments: See Note; NOTES: [facility] Imaging Services [address] [place] [address] MRI Report MR#: [id number] Acct: [id number] Name: RADHA RAMOS Harsh Rep #: [id number] D OB: 1955 F 58 From: Yolanda Vitale MD PCP: Leticia Pugh DO Status: REG CLI Study: Spine Cervical (Routine) Date of Exam: 05/18/14 Exam# [id number] Ordering Dr: Leticia Pugh DO STUDY: MRI [...] at 22 :30 EDT , Service support [phone], CC: Leticia Pugh DO Program Arranger: Signed 20-Apr-2014 Inital Evaluation - PT Result: Comments: See Note; NOTES: [facility] [place] [address] Fax REHABILITATION SERVICES INITIAL EVALUATION MR#: [id number] Acct: [id number] Name: RADHA RAMOS Rep #: [id number] : 1955 58 From: Morgan Barnes Referring : Leticia Pugh DO Status: REG R Insurance: A [facility] Date: DATE OF SERVICE: 04/17/2014 REFERRING [...] therapy. Most recently, she had been trying career manager, which consist ed of manipulations with some [...] pain. SOCIAL HISTORY: . VOCATION: Works at [employer]. Goals to get rid of pain. OBJECTIVE: [...] for deltoid, biceps, triceps, wrist flexor, extensors. 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 Negative ANR. MOVEMENT LOSS: Protrusion minimal loss with pain end range; flexion min-to- moderate loss; retraction, extension minimal loss; side bending to the right minimal loss; side bend to left is lpi-wh-amzlxrjo loss; rotation to the right minimal loss; rotation to the left is uug-qq-baowyydm loss. Repeated motion, right neck pain. Protrusion, [...] education. Morgan Barnes, PT T: NTS JOB: [id number] <Electronically signed by Morgan Barnes > 04/20/14 0856 CC: Signed For Medicare only, by signing this I certify the plan of care. Physicians Signature Date 11-Apr-2014 Cerv Spine 4 or 5 Views Result: Comments: See Note; NOTES: [facility] Imaging Services [address] [facility] [place] [address] Radiology Report MR#: [id number] Acct: [id number] Name: RADHA RAMOS Rep #: [id number] : 1955 F 58 From: Sofia Gamble MD PCP: Leticia Pugh DO Status: REG CLI Study: Cerv Spine 4 or 5 Views Date of Exam: 04/11/14 Exam# [id number] Ordering Dr: Leticia Pugh: X-RAY - CERVICAL [...] MD at 16:35 EST , Service support [phone], RAD/Cerv Spine 4 or 5 Vie ws IMPRESSION: Normal x-ray examination of the visualized cervical spine. Electronically Signed: Sofia Gamble MD at 16:35 EST , Service support [phone], CC: Leticia Pugh DO Program Arranger: Signed 30-Mar-2014 Esophagus Only Result: Comments: See Note; NOTES: [facility] Imaging Services [address] [place] [address] Radiology Report MR#: [id number] Acct: [id number] Name: RADHA RAMOS Rep #: [id number] : 1955 F 58 From: Ross Saxena MD PCP: Leticia Pugh DO Status: REG CLI Study: Esophagus Only Date of Exam: 03/30/14 Exam# [id number] Ordering Dr: James Garrido MD STUDY: X-RAY [...] Ross Saxena MD at 9:25 EST Tel [phone], Service support [phone], Fax CC: Leticia Pugh DO; James Garrido Program Arranger: Signed 08-Feb-2014 Stress Test Echo w/o Contrast Result: Comments: See Note; NOTES: [facility] Cardiovascular Services [address] [place] [address] STRESS TEST REPORT 02/02/14 1143 MR#: [id number] Acct: [id number] Name: RADHA RAMOS Rep #: [id number] : 1955 58 From: Guevara Casanova MD [...] Dictate d: 02/02/14 1143 Date Transcribed: 02/05/14901 Program Arranger: Signed 08-Feb-2014 Echocardiogram Complete Result: Comments: See Note; NOTES: [facility] Cardiovascular Services [address] [place] [address] STRESS TEST REPORT 02/02/14 1143 MR#: [id number] Acct: [id number] Name: RADHA RAMOS Rep #: [id number] : 1955 58 From: Guevara Casanova MD [...] Dictated: 02/02/14 1143 Date Transcribed: 02/05/14 0836 Program Arranger: Signed 06-Feb-2014 Upper GI Series Only Result: Comments: See Note; NOTES: [facility] Imaging Services [address] [place] [address] Radiology Report MR#: [id number] Acct: [id number] Name: RADHA RAMOS Rep #: [id number] : 1955 F 58 From: Segun Loomis MD PCP: Leticia Pugh DO Status: REG CLI Study: Upper GI Series Only Date of Exam: 02/06/14 Exam# [id number] Ordering Dr: Tanvi Hawthorne CLINICAL HISTOR Y: [...] MD at 10:55 EST , Service support [phone], RAD/Upper GI Series Only IMPRESSION: Patient shows [...] 2013 at 10:55 EST , Service support [phone], CC: Tanvi Hawthorne; Leticia Pugh DO Program Arranger: Signed 05-Feb-2014 Stress Test Echo w/o Contrast Result: Comments: See Note; NOTES: [facility] Cardiovascular Services [address] [place] [address] STRESS TEST REPORT 02/02/14 1143 MR#: [id number] Acct: [id number] Name: RADHA RAMOS Rep #: [id number] : 1955 58 From: Guevara Casanova MD [...] Dictated: 02/02/14 1143 Date Transcribed: 02/05/14 0836 Program Arranger: Signed 02-Feb-2014 Chest PA and Lateral Result: Comments: See Note; NOTES: [facility] Imaging Services [address] [place] [address] Radiology Report MR#: [id number] Acct: [id number] Name: RADHA RAMOS Rep #: [id number] : 1955 F 58 From: Martell Price MD PCP: Leticia Pugh DO Status: REG CLI Study: Chest PA and Lateral Date of Exam: 02/02/14 Exam# [id number] Ordering Dr: Tanvi Hawthorne STUDY: X-RAY CHEST [...] at 14:11 EST Tel , Service support [phone], RAD/Chest PA and Lateral IMPRESSION: Normal x-ray examination of the chest. Electronically Signed: Martell Price MD 20/01/28 at 14:11 EST , Service support [phone], CC: Tanvi Casandratran; Leticia Pugh DO Program Arranger: Signed 29-Jan-2014 ELECTROCARDIOGRAM, COMPLETE (ECG) (59394) Comments: sinus rhythm, similar to 11-19 Result: [MEASUREMENTS ANALYSIS] Date of Test: 01/29/2014 13:47:19; Heart Rate: 86; RI Interval: 136; QRS: 100; QT Interval: 368; Corrected QT Interval (QTc): 413; P Wave [place]: 66; QRS Wave [place]: 41; T Wave [place] : -1; Blood Pressure: 132/74 [ECG DIAGNOSTIC STATEMENTS] Date of Test: 01/29/2014 13:47:19; Summary: Sinus Rhythm WITHIN NORMAL LIMITS 02-Aug-2013 Bilat Scrn Digital & CAD Result: Comments: See Note; NOTES: [facility] Imaging Services [address] [place] [address] Breast Imaging Report MR#: [id number] Acct: [id number] Name: RADHA RAMOS Rep #: [id number] : 1955 F 57 From: Ross Saxena MD PCP: Leticia Pugh DO Status: REG CLI Exam# [id number] Ordering Dr: Zhane Angeles MD MAMMOGRAPHY - [...] be sent to the patient by the [facility] within 30 days. Approximately 10% of breast cancers are not detected by mammography. A normal mammogram should not delay biopsy of a clinically suspicious abnormality. Electronically Signed: Thompson Saxena MD at 10:52 EDT Tel [phone], Service support [phone], CC: Zhane Angeles MD; Leticia Pugh DO Program Arranger: Signed Immunization Name Dates Details Influenza (3 [...] kg/m2 Body Surface Area Calculated 1.94 m2 64-Jkc-[id number]:00 Temperature 98.2 f Comments: Method: Oral Pulse [...] 0.00 cm Results Date Description Value Details [id number]-Qjl-[id number]:10 VITAMIN B-12 (CYANOCOBALAMIN) Comments: PATIENT NOT FASTINGPERFORMED BY: [facility] [id number] [facility] [id number] ([id number]) Vitamin B12 723 pg/mL (Normal) Range: 232-1245 :54 BNP,B-Type NATRIURETIC PEPTIDE Comments: [facility] [id number] [place], [address] B-TYPE CAMILO PEP 38.2 pg/mL (Normal) Range: 0-100 :54 Troponin-I Comments: 'TROP' Serial specimen #1, #2, #3, or #4: [facility] [id number] [place], [id number] TROPONIN-I < 0.015 ng/mL (Normal) Comments: TROPONIN-I EXPECTED VALUES <0.045 Negative 0.045 - 0.590 Consistent with Cardiac Damage > OR = 0.600 Critical Value Not every elevated troponin is indicative of IA. T hesevalues should be used with clinical judgement in examiningthe patient's clinical picture for diagnosis. To establisha diagnosis of IA versus myocardial injury, there must be ademonstrated rise and/ or fall in the troponin values, inaddition to ischemic symptoms, EKG changes, new regionalwall motion abnormality, and/or angiographical evidence. PLEASE NOTE: REFERENCE RANGES EDITED 17:58 Lipid Profile Comments: Order Date: 10/16/16Order Info: [id number] - *Hepatic Function PanelOrder Info: [id number] - *Lipid Profile CC PCPComments: 12 hours fasting, may have water.[facility] [address] [place], [place], [address] VLDL 35 mg/dL (Normal) Range: 5-40 LDL [...] Info: [id number] - *Hepatic Function PanelOrder Info: [id number] - *Lipid Profile CC PCPComments: 12 hours fasting, may have water.[facility] [address] [place], [id number] D BILI 0.07 mg/dL (Normal) Range: 0.00-0.30 T BILI 0.70 mg/dL (Normal) Range: 0.20-1.00 ALT 47 U/L (Normal) Range: 13-56 Comments: Please note revised ALT reference range /28/2018. ALK P 103 U/L (Normal) Range: 45-117 AST 30 U/L (Normal) Range: 15-37 GLOB 3.6 g/dL (Normal) Range: 2.2-4.2 ALB 4.0 g/dL (Normal) Range: 3.2-5.0 T PROT 7.6 g/dL (Normal) Range: 6.4-8.2 82-Kdg-043878:09 Free T3 Comments: [facility] [address] [place], [address] FREE T3 3.2 pg/mL (Normal) Range: 2.18-3.98 01-Exl-778846:09 T4 Free Direct Comments: [facility] [address] [place], [id number] T4 FREE DIRECT 0.84 ng/dL (Normal) Range: 0.76-1.46 92-Ano-057662:09 Thyroid Stim Hormone (TSH) Comments: [facility] [address]mh[address] [place], [address] TSH 1.27 {uIU/mL} (Normal) Range: 0.358-3.74 80-San-844778:04 VITAMIN B-12 (CYANOCOBALAMIN) Comments: PATIENT WAS FASTINGPERFORMED BY: [facility] Bnstmq2574 [facility] [id number] ([id number]) Vitamin B12 1049 pg/mL (Normal) Range: 232-1245 82-Aml-240884:04 CALCIFEDIOL (58170) Comments: PATIENT WAS FASTINGPERFORMED BY: [employer] Snvyum6609 [facility] [id number] Vitamin D, 25-Hydroxy 17.4 ng/mL (Abnormal) Range: 30.0-100.0 Comments: Vitamin D deficiency has been defined by the [place] of[place]icine and an Endocrine Society practice guideline as alevel of serum 25-OH vitamin D less than 20 ng/mL (1,2).The Endocrine Society went on to further define vitamin Dinsufficiency as a level between 21 and 29 ng/mL (2).1. IOM ([place] of Medicine). 2010. Dietary reference intakes for calcium and D. [place]: The National Academies Press.2. Catie MF, Karon ACEVEDO, Myron KESSLER, et al. Evaluation, treatment, and prevention of vitamin D deficiency: an Endocrine Society clinical practice guideline. JCEM. 2010; 96(7):1911-30. 61-Qcr-494564:08 URINE SHANI CULTURE-IDENTIFICATN Comments: PATIENT NOT FASTINGPERFORMED BY: [employer] Oukhwo8616 [facility] [id number] (59072) Antimicrobial MIHEAD (Normal) Comments: S = Susceptible; [...] mL (Abnormal) Urine Final report Culture,Comprehensive (Abnormal) 21-Fnp-435002:08 URINALYSIS (23187) Comments: PATIENT NOT FASTINGPERFORMED BY: [facility] Glhhbo8872 [facility] [id number] Information: SRC:UC Microscopic Examination MICNIP (Normal) Comments: Microscopic not indicated and not performed. Nitrite, Urine Negative (Normal) Urobilinogen,Semi-Qn 0.2 mg/dL (Normal) Range: 0.2-1.0 Bilirubin Negative (Normal) Occult Blood Negative (Normal) Ketones Negative (Normal) Glucose Negative (Normal) Protein Negative (Normal) WBC Esterase Negative (Normal) Appearance Clear (Normal) Urine-Color Yellow (Normal) pH 5.0 (Normal) Range: 5.0-7.5 Specific Esbon 1.021 (Normal) Range: 1.005-1.030 :11 Basic Metabolic Profile (BMP) Comments: 'TROP' Serial specimen #1, #2, #3, or #4: [address] [place] [address] [address] [place], [place], [id number] GAP 9 (Normal) Range: 5-15 CO2 24.0 [...] A.D.A. criteria. :11 CBC W/Diff, Automated Comments: [facility] [address] [place], [place], [address] Absolute Lymph 3.23 {X10_3/ul} (Normal) Range: 0.83-4.51 [...] Serial specimen #1, #2, #3, or #4: 1[facility] [address]ivmsb[address] [place], [address] TROPONIN-I < 0.02 ng/mL (Normal) Comments: TROPONIN-I EXPECTED VALUES <0.05 NEGATIVE 0.06 - 0.59 AT RISK OF IA > OR = 0.60 SUGGEST IA :00 ASP RADIOLOGY (FLUID) See Note (Normal) Comments: [facility] [address] [place], [place], [address] Comments: Patient: RADHA RAMOS : 1955 (61/F) Acct Num: [id number] Phys: Jacinto VIDALES,James Unit Num: [id number] Loc: Specimen: [id number] Received: 11/13/16 - 1243 [...] cytology study. / SVETLANA:brayden 11/13/16 TC:5 CPT: 33792, 89257, 881 72 CYTOLOGY STUDY Slides are reviewed. [...] Order Date: 09/21/16Order Info: [id number] - *[facility] [address]vb[address] [place], [address] HGB A1C 6.3 % (Normal) Range: 4.2-6.3 80-Bso-48307:57 Lipid Profile Comments: Order Date: 10/28/15Interface Comments: 12 hours fasting, may have water.[facility] [address]scoc[address] [place], [address] VLDL 28 mg/dL (Normal) Range: 5-40 LDL [...] 200-240 mg/dL Borderline >240 mg/dL High Risk 69-Ggm-20222:57 Liver Profile Comments: Order Date: 10/28/15Interface Comments: 12 hours fasting, may have water.[facility] [address] [place], [place], [address] D BILI 0.11 mg/dL (Normal) Range: 0.00-0.30 T BILI 0.60 mg/dL (Normal) Range: 0.20-1.00 ALT 34 U/L (Normal) Range: 12-78 ALK P 95 U/L (Normal) Range: 45-117 AST 21 U/L (Normal) Range: 15-37 GLOB 3.2 g/dL (Normal) Range: 2.3-3.5 ALB 4.1 g/dL (Normal) Range: 3.4-5.0 T PROT 7.3 g/dL (Normal) Range: 6.4-8.2 45-Nyo-249826:14 CBC W/Diff, Automated Comments: Order Date: 09/21/16Order Info: [id number] - *CBC with DifferentialComments: Reason:[facility] [address] [place], [place], [id number] Absolute Lymph 2.69 {X10_3/ul} (Normal) Range: 0.83-4.51 [...] 4.2-5.4 WBC 7.3 K/mm3 (Normal) Range: 4.4-11.0 12-Ikm-174927:14 Thyroid Stim Hormone (TSH) Comments: Order Date: 09/21/16Order Info: [id number] - *TSHComments: Reason:[facility] [address] [place], [place], [address] TSH 1.64 {uIU/mL} (Normal) Range: 0.358-3.74 :55 HgA1C , Office (28859) HgA1C , Office 5.8 % (Normal) Range: 4.6 - 7.1 :55 Blood Glucose , Office (89826) Blood Glucose , Office 110 (Normal) 65-Xhq-129029:19 THROAT CULTURE (13075) Comments: PATIENT NOT FASTINGPERFORMED BY: LabCoTerri [place] [id number] [place] [id number] Information: SRC:TH Result 1 RRF (Normal) Comments: Routine respiratory jaylyn Upper Respiratory Culture Final report (Normal) 91-Pge-936660:42 LIPID PANEL (58527) Comments: PATIENT WAS FASTINGPERFORMED BY: AgillicHermann Area District HospitalNswvda3209 [facility] [id number] LDL/HDL Ratio 3.4 {ratio_units} (Abnormal) Range: 0.0-3.2 Comments: LDL/HDL Ratio Men Women 1/2 Avg.Risk 1.0 1.5 Av g.Risk 3.6 3.2 2X Avg.Risk 6.2 5.0 3X Avg.Risk 8.0 6.1 LDL Cholesterol Calc 122 mg/dL (Abnormal) Range: 0-99 VLDL Cholesterol Leonel 34 mg/dL (Normal) Range: 5-40 HDL Cholesterol 36 mg/dL (Abnormal) Triglycerides 172 mg/dL (Abnormal) Range: 0-149 Cholesterol, Total 192 mg/dL (Normal) Range: 100-199 55-Fzd-856591:42 CALCIFIDIOL (25707) VIT D 25 Comments: PATIENT WAS FASTINGPERFORMED BY: LabCoSaint Barnabas Behavioral Health CenterEjdglf9519 [facility] [id number]; will rview on 07/03 Vitamin D, 25-Hydroxy 23.3 ng/mL (Abnormal) Range: 30.0-100.0 Comments: Vitamin D deficiency has been defined by the [place] of[place]icine and an Endocrine Society practice guideline as alevel of serum 25-OH vitamin D less than 20 ng/mL (1,2).The Endocrine Society went on to further define vitamin Dinsufficiency as a level between 21 and 29 ng/mL (2).1. IOM ([place] of Medicine). 2010. Dietary reference intakes for calcium and D. [place]: The National Academies Press.2. Catie MF, Karon ACEVEDO, Myron KESSLER, et al. Evaluation, treatment, and prevention of vitamin D deficiency: an Endocrine Society clinical practice guideline. JCEM. 2010; 96(7):1911-30. 85-Xbd-625636:09 HgA1C , Office (73334) HgA1C , Office 6.0 % (Normal) Range: 4.6 - 7.1 37-Sbw-607666:09 Blood Glucose , Office (27691) Blood Glucose , Office 113 (Normal) 61-Fbs-304250:21 Microscopic Examination Comments: PATIENT WAS FASTINGPERFORMED BY: [facility]6370 [facility] [id number] Bacteria Few (Normal) Mucus Threads Present (Normal) Epithelial Cells (non renal) 0-10 {/hpf} (Normal) Range: 0 - 10 RBC 0-2 {/hpf} (Normal) Range: 0 - 2 WBC 0-5 {/hpf} (Normal) Range: 0 - 5 66-Ubp-092041:53 PPD (04459) Comments: lot: 56550kdw: 07/22site/route: L forearm/intradermalamt: 0.1mLVIS signed when applicableChelsea, COMPLIANCE COORDINATOR SKIN TEST INTRADERMAL TB negative (Normal) :33 LDH (LD) (LACTATE DEHYDROGENASE) Comments: PATIENT NOT FASTINGPERFORMED BY: [facility]6370 [facility] [id number] (47187) LDH 174 [iU]/L (Normal) Range: 119-226 :33 SED RATE ERYTHROCYTE (82250) Comments: PATIENT NOT FASTINGPERFORMED BY: [facility]6370 [facility] [id number] Sedimentation Rate-Westergren 2 mm/h (Normal) Range: 0-40 :33 C-REACTIVE PROTEIN (75602) Comments: PATIENT NOT FASTINGPERFORMED BY: [facility]6370 [facility] [id number] C-Reactive Protein, Quant 1.8 mg/L (Normal) Range: 0.0-4.9 :33 TSH (53321) Comments: PATIENT NOT FASTINGPERFORMED BY: [facility]6370 [facility] [id number] TSH 2.710 {uIU/mL} (Normal) Range: 0.450-4.500 32-Jff-535458:33 METABOLIC PANEL, COMPREHENSIVE Comments: PATIENT NOT FASTINGPERFORMED BY: [facility]6370 [facility] [id number] (57189) ALT (SGPT) 25 [iU]/L (Normal) Range: 0-32 [...] Glucose, Serum 83 mg/dL (Normal) Range: 65-99 11-Rmx-352152:33 CBC W/AUTO DIFF WBC (45151) Comments: PATIENT NOT FASTINGPERFORMED BY: [facility] Couqmn5269 [facility] [id number] Immature Grans (Abs) 0.0 {x10E3/uL} (Normal) Range: [...] 3.77-5.28 WBC 7.4 {x10E3/uL} (Normal) Range: 3.4-10.8 85-Kbi-80895:00 Culture, Deep Wound Comments: [address] [place], [place], [address] CUDW See Note (Normal) Comments: Comments: ABDOMINAL ABCESSGram StainGram Stain No White Blood Cells No organisms seen Wound CulturePossible skin contamination, further Identification and sensitivity will be performed only by physi taye's request. ORGANISM 1: Coag Negative StaphAmount Growth Very Rare Cult, AnaerobicNo anaerobic bacteria isolated. 59-Iho-945038:51 Albumin, Serum Comments: [address] [place], [place], [address] ALB 4.3 g/dL (Normal) Range: 3.4-5.0 98-Uiz-974718:51 Basic Metabolic Profile (BMP) Comments: [address] [place], [address] GAP 6 (Normal) Range: 5-15 [...] :51 CBC-Complete Blood Cnt No Diff Comments: [facility] [address]wcnc[address] [place], [address] MPV 9.4 fL (Normal) Range: [...] 4.2-5.4 WBC 5.8 K/mm3 (Normal) Range: 4.4-11.0 27-Ynx-497717:51 Hemoglobin A1c Comments: [facility] [address] [place], [address] HGB A1C 6.1 % (Normal) Range: 4.2-6.3 62-Fyk-876306:51 Prealbumin Comments: [facility] [address]ow[address] [place], [address] PREALBUMIN 32.4 mg/dL (Normal) Range: 20.0-40.0 79-Hsw-95746:06 Urinalysis, Office (50621) UA - LEUKOCYTE ESTERASE Negative (Normal) UA - NITRITE Negative (Normal) URINE UROBILINGN MICHAEL TIMED Normal mg/dL (Normal) UA - PROTEIN Negative mg/dL (Normal) UA - PH 6.0 (Normal) Comments: 5.5 UA - BLOOD Non Hemolyzed Trace (Normal) UA - SPECIFIC GRAVITY 1.030 (Abnormal) UA - KETONES Negative mg/dL (Normal) UA - BILIRUBIN Negative (Normal) UA - GLUCOSE Negative (Normal) 1-Cwa-877746:23 SED RATE ERYTHROCYTE Comments: PATIENT WAS FASTINGPERFORMED BY: Lab[facility] Datarp Btmkjf8563 [facility] [id number] Information: [id number], [id number] (67866) Sedimentation Rate-Westergren 2 mm/h (Normal) Range: 0-40 8-Eqp-951636:27 Aerobic Bacterial Culture Comments: PATIENT WAS FASTINGPERFORMED BY: Kopi [facility] Iaptim4357 [facility] [id number] Information: [id number] SRC:AB (64088) Result 1 Mixed skin jaylyn (Normal) Aerobic Bacterial Culture Final report (Normal) 5-Kxa-725198:21 Serum Creatinine AND GFR Comments: [facility] [address] [place], [address] EST GFR - AA 73 mL/min (Normal) Comments: GFR Calc EST GFR 60 mL/min (Normal) Comments: Non- GFR Calc CREAT,SERUM 1.00 mg/dL (Normal) Range: 0.55-1.20 Comments: The validity of the calculated GFR AND GFRAA in patients over70 years has not been determined. Clinical correlation isessential. :21 VITAMIN B-12 (CYANOCOBALAMIN) Comments: PATIENT WAS FASTINGPERFORMED BY: AgillicHermann Area District HospitalXmtfga2672 [facility] [id number] (83832) Vitamin B12 738 pg/mL (Normal) Range: 211-946 : TSH (38869) Comments: PATIENT WAS FASTINGPERFORMED BY: [facility]icAsc[facility]6370 [facility] [id number] TSH 2.440 {uIU/mL} (Normal) Range: 0.450-4.500 : URINALYSIS, W/ MICRO (13224) Comments: PATIENT WAS FASTINGPERFORMED BY: [facility]icAsc[facility] Hospital6370 [facility] [id number] Microscopic Examination See below: (Normal) Comments: Microscopic was indicated and was performed. Microscopic Examination MICRON (Normal) Comments: Microscopic follows if indicated. Nitrite, Urine Negative (Normal) Urobilinogen,Semi-Qn 0.2 mg/dL (Normal) Range: 0.2-1.0 Bilirubin Negative (Normal) Occult Blood Negative (Normal) Ketones Negative (Normal) Glucose Negative (Normal) Protein Negative (Normal) WBC Esterase Negative (Normal) Appearance Clear (Normal) Urine-Color Yellow (Normal) pH 5.5 (Normal) Range: 5.0-7.5 Specific Esbon 1.027 (Normal) Range: 1.005-1.030 :21 MICROALBUMIN: CREATININE RATIO Comments: PATIENT WAS FASTINGPERFORMED BY: [facility]ic[facility] Hospital6370 [facility] [id number] (80526) AND (56284) Microalb/Creat Ratio 2.9 {mg/g_creat} (Normal) Range: 0.0-30.0 Microalbumin, Urine 4.1 ug/mL (Normal) Creatinine, Urine 143.7 mg/dL (Normal) :21 METABOLIC PANEL, COMPREHENSIVE Comments: PATIENT WAS FASTINGPERFORMED BY: [facility] Hospital6370 [facility] [id number] (93309) ALT (SGPT) 28 [iU]/L (Normal) Range: 0-32 [...] Glucose, Serum 134 mg/dL (Abnormal) Range: 65-99 55-Vyd-466171:21 CBC W/AUTO DIFF WBC (96705) Comments: PATIENT WAS FASTINGPERFORMED BY: LabCoSaint Barnabas Behavioral Health CenterVkyykb6890 [facility] [id number] Immature Grans (Abs) 0.0 {x10E3/uL} (Normal) Range: [...] 3.77-5.28 WBC 5.2 {x10E3/uL} (Normal) Range: 3.4-10.8 10-Ust-952733:21 LIPID PANEL (29710) Comments: PATIENT WAS FASTINGPERFORMED BY: [employer] [place] [id number] LDL/HDL Ratio 3.0 {ratio_units} (Normal) Range: 0.0-3.2 Comments: LDL/HDL Ratio Men Women 1/2 Avg.Risk 1.0 1.5 Av g.Risk 3.6 3.2 2X Avg.Risk 6.2 5.0 3X Avg.Risk 8.0 6.1 LDL Cholesterol Calc 121 mg/dL (Abnormal) Range: 0-99 VLDL Cholesterol Leonel 27 mg/dL (Normal) Range: 5-40 HDL Cholesterol 41 mg/dL (Normal) Triglycerides 137 mg/dL (Normal) Range: 0-149 Cholesterol, Total 189 mg/dL (Normal) Range: 100-199 18-Fde-114724:21 CALCIFIDIOL (98301) VIT D 25 Comments: PATIENT WAS FASTINGPERFORMED BY: [employer] [place] [id number] Vitamin D, 25-Hydroxy 19.5 ng/mL (Abnormal) Range: 30.0-100.0 Comments: Vitamin D deficiency has been defined by the [place] of[place]icine and an Endocrine Society practice guideline as alevel of serum 25-OH vitamin D less than 20 ng/mL (1,2).The Endocrine Society went on to further define vitamin Dinsufficiency as a level between 21 and 29 ng/mL (2).1. IOM ([place] of Medicine). 2010. Dietary reference intakes for calcium and D. [place]: The National Academies Press.2. Catie MF, Karon ACEVEDO, Myron KESSLER, et al. Evaluation, treatment, and prevention of vitamin D deficiency: an Endocrine Society clinical practice guideline. JCEM. 2010; 96(7):1911-30. :19 HgA1C , Office (14157) HgA1C , Office 5.8 % (Normal) Range: 4.6 - 7.1 :19 Blood Glucose , Office (67704) Blood Glucose , Office 79 (Normal) 43-Kac-880717:15 Lipid Profile Comments: Order Date: 10/21/15Interface Comments: 12 hours fasting, may have water.Order Date: 10/21/15[facility] [address] [place], [place], [address] VLDL 28 mg/dL (Normal) Range: 5-40 LDL [...] 200-240 mg/dL Borderline >240 mg/dL High Risk 46-Lwi-503893:15 Liver Profile Comments: Order Date: 10/21/15Interface Comments: 12 hours fasting, may have water.Order Date: 10/21/15[facility] Blhtnjdyro9914 [address], [address] D BILI 0.13 mg/dL (Normal) Range: 0.00-0.30 T BILI 0.80 mg/dL (Normal) Range: 0.20-1.00 ALT 39 U/L (Normal) Range: 12-78 ALK P 90 U/L (Normal) Range: 50-136 AST 23 U/L (Normal) Range: 15-37 GLOB 3.1 g/dL (Normal) Range: 2.3-3.5 ALB 4.3 g/dL (Normal) Range: 3.4-5.0 T PROT 7.4 g/dL (Normal) Range: 6.4-8.2 :48 HgA1C , Office (20755) HgA1C , Office 5.9 % (Normal) Range: 4.6 - 7.1 :48 Blood Glucose , Office (55368) Blood Glucose , Office 81 (Normal) :50 Microscopic Examination Comments: PATIENT WAS FASTINGPERFORMED BY: [employer] EnergyAmerican Healthcare Systems [id number] Bacteria Few (Normal) Mucus Threads Present (Normal) Epithelial Cells (non renal) 0-10 {/hpf} (Normal) Range: 0 - 10 RBC 0-2 {/hpf} (Normal) Range: 0 - 2 WBC 0-5 {/hpf} (Normal) Range: 0 - 5 :17 VITAMIN B-12 (CYANOCOBALAMIN) Comments: PATIENT NOT FASTINGPERFORMED BY: [employer] EnergyAmerican Healthcare Systems [id number] (39949) Vitamin B12 928 pg/mL (Normal) Range: 211-946 :17 CALCIFIDIOL (46687) VIT D Comments: PATIENT NOT FASTINGPERFORMED BY: [email or web address] Zhiopz7397 [facility] [id number] Information: [id number] 25 Vitamin D, 25-Hydroxy 20.0 ng/mL (Abnormal) Range: 30.0-100.0 Comments: Vitamin D deficiency has been defined by the [place] of[place]icine and an Endocrine Society practice guideline as alevel of serum 25-OH vitamin D less than 20 ng/mL (1,2).The Endocrine Society went on to further define vitamin Dinsufficiency as a level between 21 and 29 ng/mL (2).1. IOM ([place] of Medicine). 2010. Dietary reference intakes for calcium and D. [place]: The National Academies Press.2. Catie MF, Karon ACEVEDO, Myron KESSLER, et al. Evaluation, treatment, and prevention of vitamin D deficiency: an Endocrine Society clinical practice guideline. JCEM. 2010; 96(7):1911-30. :50 URINALYSIS, W/ MICRO (51310) Comments: PATIENT WAS FASTINGPERFORMED BY: [employer] TherapeuticsUofL Health [facility] [id number] Microscopic Examination See below: (Normal) Comments: Microscopic was indicated and was performed. Microscopic Examination MICRON (Normal) Comments: Microscopic follows if indicated. Nitrite, Urine Negative (Normal) Urobilinogen,Semi-Qn 0.2 mg/dL (Normal) Range: 0.2-1.0 Bilirubin Negative (Normal) Occult Blood Negative (Normal) Ketones Negative (Normal) Glucose Negative (Normal) Protein Negative (Normal) WBC Esterase Negative (Normal) Appearance Clear (Normal) Urine-Color Yellow (Normal) pH 6.0 (Normal) Range: 5.0-7.5 Specific Esbon 1.021 (Normal) Range: 1.005-1.030 :50 MICROALBUMIN: CREATININE RATIO Comments: PATIENT WAS FASTINGPERFORMED BY: [email or web address] Healthcare Systems [id number] (27197) AND (71804) Microalb/Creat Ratio 2.6 {mg/g_creat} (Normal) Range: 0.0-30.0 Microalbumin, Urine 4.4 ug/mL (Normal) Creatinine, Urine 170.1 mg/dL (Normal) :50 METABOLIC PANEL, COMPREHENSIVE Comments: PATIENT WAS FASTINGPERFORMED BY: [email or web address] Healthcare Systems [id number] (16966) ALT (SGPT) 28 [iU]/L (Normal) Range: 0-32 [...] Glucose, Serum 113 mg/dL (Abnormal) Range: 65-99 86-Tta-31911:50 CBC W/AUTO DIFF WBC Comments: PATIENT WAS FASTINGPERFORMED BY: DAVID [facility] Xvjnzd7709 [facility] [id number] Information: [id number] DL (82744) Immature Grans (Abs) 0.0 {x10E3/uL} (Normal) Range: [...] B-12 (CYANOCOBALAMIN) Comments: PATIENT WAS FASTINGPERFORMED BY: Kopi [facility] Pnldmk7010 [facility] [id number] (91987) Vitamin B12 589 pg/mL (Normal) Range: 211-946 :50 LIPID PANEL (92836) Comments: PATIENT WAS FASTINGPERFORMED BY: [facility] Ivpxyl1114 [facility] [id number] LDL/HDL Ratio 3.2 {ratio_units} (Normal) Range: 0.0-3.2 [...] 178 mg/dL (Normal) Range: 100-199 :50 CALCIFIDIOL (61632) VIT D 25 Comments: PATIENT WAS FASTINGPERFORMED BY: LabCoSaint Barnabas Behavioral Health CenterKdormc1766 [facility] [id number] Vitamin D, 25-Hydroxy 23.6 ng/mL (Abnormal) Range: 30.0-100.0 Comments: Vitamin D deficiency has been defined by the [place] of[place]icine and an Endocrine Society practice guideline as alevel of serum 25-OH vitamin D less than 20 ng/mL (1,2).The Endocrine Society went on to further define vitamin Dinsufficiency as a level between 21 and 29 ng/mL (2).1. IOM ([place] of Medicine). 2010. Dietary reference intakes for calcium and D. [place]: The National Academies Press.2. Catie MF, Karon [place], Myron KESSLER, et al. Evaluation, treatment, and prevention of vitamin D deficiency: an Endocrine Society clinical practice guideline. JCEM. 2010; 96(7):1911-30. :39 HgA1C , Office (58893) HgA1C , Office 5.7 % (Normal) Range: 4.6 - 7.1 :39 Blood Glucose , Office (40089) Blood Glucose , Office 87 (Normal) :08 CK-MB Quantitative and Index Comments: 'TROP' Serial specimen #1, #2, #3, or #4: INT'CKMB' Serial Specimen #1, #2 or #3? [facility] [address]dnkvgfkye[address] [place], [place], [address] CKRI 0.5 % (Normal) Range: 0.0-1.4 Comments: RELATIVE INDEX >1.5% IS PRESUMPTIVELY POSITIVE CPKMB 0.6 ng/mL (Normal) Range: 0.0-5.0 Comments: CK-MB and RI Interpretation MB Relative Index Non-AMI <or= 5 NA Indeterminate > 5 <or= 4 AMI > 5 > 4 CPK TOTAL 114 U/L (Normal) Range: 26-192 3-Ymc-708069:08 Troponin I (84260) Comments: 'TROP' Serial specimen #1, #2, #3, or #4: INT'CKMB' Serial Specimen #1, #2 or #3? 1[facility] [address] [place], [place], [address] TROPONIN-I < 0.02 ng/mL (Normal) Comments: TROPONIN-I EXPECTED VALUES <0.05 NEGATIVE 0.06 - 0.59 AT RISK OF IA > OR = 0.60 SUGGEST IA 3-Jah-211984:44 LIPID PANEL (57448) Comments: PATIENT WAS FASTINGPERFORMED BY: [employer] [facility] [id number] Information: [id number] LDL/HDL Ratio 2.6 {ratio_units} (Normal) Range: 0.0-3.2 [...] (Normal) Range: 100-199 :56 HgA1C , Office (15485) HgA1C , Office 5.8 % (Normal) Range: 4.6 - 7.1 :56 Blood Glucose , Office (76345) Blood Glucose , Office 99 (Normal) 42-Cpy-508558:27 URINE SHANI CULTURE-MICHAEL COL Comments: PATIENT NOT FASTINGPERFORMED BY: Kopi LabReveal DataSaint Barnabas Behavioral Health CenterMzgxus6976 [facility] [id number] Information: SRC:[employer] [id number] COUNT (88679) Antimicrobial MIHEAD (Normal) Comments: S = Susceptible; [...] . (Abnormal) Urine Final report Culture,Comprehensive (Abnormal) 49-Gms-369985:33 Urinalysis, Office (43689) UA - LEUKOCYTE ESTERASE Negative (Normal) UA - NITRITE Negative (Normal) URINE UROBILINGN MICHAEL TIMED Normal mg/dL (Normal) UA - PROTEIN Negative mg/dL (Normal) UA - PH 5 (Abnormal) UA - BLOOD Negative (Normal) UA - SPECIFIC GRAVITY 1.025 (Normal) UA - KETONES Negative mg/dL (Normal) UA - BILIRUBIN Negative (Normal) UA - GLUCOSE Negative (Normal) 85-Pvk-518846:00 Culture, Wound Comments: Test performed at:[facility] [id number] [place] [address] CUW See Note (Normal) Comments: SPECIMEN RECEIVED [...] $ <=20 S(NF) indicates non-formulary drug at [facility]. Approval by In fectious Disease Specialist required before non-formulary drugs may be ordered and/or dispensed. [id number] Bedside Glucose Comments: Test performed at:[facility] [id number] [place] [address] ; ordered by Dr. Kebede BEDSIDE GLU 126 mg/dL (Abnormal) Range: 70-110 Comments: No Action RequiredMANAGEMENT OF PATIENT CARE PER NURSING PROTOCOL [id number] Urinalysis, Routine (Dipstick) Comments: How was Urine Obtained? ASSISTANT IMPORT MANAGER TO SPECIFYTest performed at:[facility] [address] [place] [address] LEUK ESTERASE Negative /ul (Normal) OCCULT BLOOD-UR Negative /ul (Normal) NITRITE UR Negative (Normal) UROBILI Normal mg/dL (Normal) PROT DIPSTX Negative mg/dL (Normal) pH UR 5.0 (Normal) Range: 5.0 - 8.0 SP.GR. DIPSTX 1.020 (Normal) Range: 1.002-1.030 KETONE UR Negative mg/dL (Normal) BILIRUBIN URINE Negative mg/dL (Normal) GLUCOSE, UR Normal mg/dL (Normal) CLARITY Clear (Normal) COLOR Yellow (Normal) 50-Gjk-287681:01 Bedside Glucose Comments: Test performed at:[facility] [address] [place] [address] BEDSIDE GLU 108 mg/dL (Normal) Range: 70-110 Comments: Policy and Physicians Orders followedMANAGEMENT OF PATIENT CARE PER NURSING PROTOCOL 92-Tqm-91113:47 CBC W/Diff, Automated Comments: Test performed at:[facility] [address] [place] [address] Absolute Lymph 2.25 {X10_3/ul} (Normal) [...] 4.2-5.4 WBC 5.9 K/mm3 (Normal) Range: 4.4-11.0 71-Eia-31535:47 Comprehensive Metabolic Profil Comments: Test performed at:[facility] [address] [place] [address] GAP 11 (Normal) Range: 5-15 CO2 24.0 [...] 7-18 GLU 106 mg/dL (Normal) Range: 70-110 90-Clz-362995:33 LIPID PANEL (09547) Comments: PATIENT WAS FASTINGPERFORMED BY: Keyhole.coSaint Barnabas Behavioral Health CenterLajeme60[address] [place] [address] [id number] LDL/HDL Ratio 3.4 {ratio_units} (Abnormal) Range: 0.0-3.2 [...] Cholesterol, Total 208 mg/dL (Abnormal) Range: 100-199 92-Pkm-335316:33 TSH (19785) Comments: PATIENT WAS FASTINGPERFORMED BY: Keyhole.coSaint Barnabas Behavioral Health CenterAadkop7223 [facility] [id number] TSH 3.440 {uIU/mL} (Normal) Range: 0.450-4.500 21-Xqq-527545:33 METABOLIC PANEL, Comments: PATIENT WAS FASTINGPERFORMED BY: Keyhole.coSaint Barnabas Behavioral Health CenterEhyqlg7434 [facility] [id number] Information: [id number] COMPREHENSIVE (31528) ALT (SGPT) 26 [iU]/L (Normal) Range: 0-32 [...] Glucose, Serum 108 mg/dL (Abnormal) Range: 65-99 92-Qzh-788910:33 CBC (AUTO) (50607) Comments: PATIENT WAS FASTINGPERFORMED BY: LabCoSaint Barnabas Behavioral Health CenterAvuiud1046 [facility] [id number] Platelets 216 {x10E3/uL} (Normal) Range: 150-379 RDW 13.9 % (Normal) Range: 12.3-15.4 MCHC 34.1 g/dL (Normal) Range: 31.5-35.7 MCH 28.9 pg (Normal) Range: 26.6-33.0 MCV 85 fL (Normal) Range: 79-97 Hematocrit 41.6 % (Normal) Range: 34.0-46.6 Hemoglobin 14.2 g/dL (Normal) Range: 11.1-15.9 RBC 4.92 {x10E6/uL} (Normal) Range: 3.77-5.28 WBC 5.6 {x10E3/uL} (Normal) Range: 3.4-10.8 :33 VITAMIN B-12 (CYANOCOBALAMIN) Comments: PATIENT WAS FASTINGPERFORMED BY: [employer] Lbnhlh1952 [facility] [id number] (31420) Vitamin B12 638 pg/mL (Normal) Range: 211-946 :33 CALCIFIDIOL (79464) VIT D 25 Comments: PATIENT WAS FASTINGPERFORMED BY: [employer] Ojxfgc8359 [facility] [id number]; apt. 12-13-14 Vitamin D, 25-Hydroxy 19.4 ng/mL (Abnormal) Range: 30.0-100.0 Comments: Vitamin D deficiency has been defined by the [place] [facility]cine and an Endocrine Society practice guideline as alevel of serum 25-OH vitamin D less than 20 ng/mL (1,2).The Endocrine Society went on to further define vitamin Dinsufficiency as a level between 21 and 29 ng/mL (2).1. IOM ([place] of Medicine). 2010. Dietary reference intakes for calcium and D. [place]: The National Academies Press.2. Catie MF, Karon [place], Myron KESSLER, et al. Evaluation, treatment, and prevention of vitamin D deficiency: an Endocrine Society clinical practice guideline. JCEM. 2010; 96(7):1911-30. :47 HgA1C , Office (02873) HgA1C , Office 5.9 % (Normal) Range: 4.6 - 7.1 :05 METABOLIC PANEL, Comments: PATIENT NOT FASTINGPERFORMED BY: Keyhole.coSaint Barnabas Behavioral Health CenterLbpsac5172 [facility] [id number] Information: [id number] COMPREHENSIVE (67808) ALT (SGPT) 24 [iU]/L (Normal) Range: 0-32 [...] Glucose, Serum 139 mg/dL (Abnormal) Range: 65-99 41-Cpe-184871:05 CBC (AUTO) (84121) Comments: PATIENT NOT FASTINGPERFORMED BY: LabCoSaint Barnabas Behavioral Health CenterUwrlig2366 [facility] [id number] Platelets 251 {x10E3/uL} (Normal) Range: 150-379 RDW 13.3 % (Normal) Range: 12.3-15.4 MCHC 33.9 g/dL (Normal) Range: 31.5-35.7 MCH 28.3 pg (Normal) Range: 26.6-33.0 MCV 84 fL (Normal) Range: 79-97 Hematocrit 43.4 % (Normal) Range: 34.0-46.6 Hemoglobin 14.7 g/dL (Normal) Range: 11.1-15.9 RBC 5.19 {x10E6/uL} (Normal) Range: 3.77-5.28 WBC 5.8 {x10E3/uL} (Normal) Range: 3.4-10.8 03-Zdi-728850:05 VITAMIN B-12 (CYANOCOBALAMIN) Comments: PATIENT NOT FASTINGPERFORMED BY: [facility]6370 [facility] [id number] (68595) Vitamin B12 365 pg/mL (Normal) Range: 211-946 :05 TSH (32355) Comments: PATIENT NOT FASTINGPERFORMED BY: [facility]6370 [facility] [id number] TSH 2.930 {uIU/mL} (Normal) Range: 0.450-4.500 :25 [...] <0.05 NEGATIVE0.06 - 0.59 AT RISK OF IA> OR = 0.60 SUGGEST IA :32 URINE SHANI CULTURE (MICHAEL Comments: PATIENT NOT FASTINGPERFORMED BY: [place]illicPamela [place] 8400970 [facility] [id number] Information: SRC:UR [id number] COL COUNT) (46818) Result 1 MUG (Normal) Comments: Mixed urogenital flora25,000-50,000 colony forming units per mL Urine Final report (Normal) Culture,Comprehensive :14 Urinalysis, Office (00725) UA - LEUKOCYTE ESTERASE Negative (Normal) UA - NITRITE Negative (Normal) URINE UROBILINGN MICHAEL TIMED Normal mg/dL (Normal) UA - PROTEIN Negative mg/dL (Normal) UA - PH 5.0 (Normal) Comments: 5.5 UA - BLOOD Negative (Normal) UA - SPECIFIC GRAVITY 1.030 (Abnormal) UA - KETONES Negative mg/dL (Normal) UA - BILIRUBIN Negative (Normal) UA - GLUCOSE Negative (Normal) :51 HgA1C , Office (91173) HgA1C , Office 6.1 % (Normal) Range: 4.6 - 7.1 :16 URINE SHANI CULTURE-MICHAEL COL Comments: PATIENT NOT FASTINGPERFORMED BY: LabPamela Ville 8400970 [facility] [id number] Information: SRC:UR [id number] COUNT (92638) Result 1 ECV (Abnormal) Comments: Escherichia coli, [...] S Urine Final report Culture,Comprehensi (Abnormal) ve 50-Eaa-905504:59 Urinalysis, Office (67994) UA - LEUKOCYTE ESTERASE Small (Normal) UA - NITRITE Negative (Normal) URINE UROBILINGN MICHAEL TIMED 2 mg/dL (Normal) UA - PROTEIN Negative mg/dL (Normal) UA - PH 6.5 (Normal) UA - BLOOD Hemolyzed Small (Normal) UA - SPECIFIC GRAVITY 1.025 (Normal) UA - KETONES Negative mg/dL (Normal) UA - BILIRUBIN Negative (Normal) UA - GLUCOSE Negative (Normal) :33 HgA1C , Office (12523) HgA1C , Office 6.1 % (Normal) Range: 4.6 - 7.1 :33 Blood Glucose , Office (56021) Blood Glucose , Office 144 (Normal) Comments: non-fasting :24 Microscopic Examination Comments: PATIENT WAS FASTINGPERFORMED BY: [employer] [facility] [id number] Bacteria Few (Normal) Mucus Threads Present (Normal) Epithelial Cells (non renal) >10 {/hpf} (Abnormal) Range: 0 - 10 RBC 0-2 {/hpf} (Normal) Range: 0 - 2 WBC 0-5 {/hpf} (Normal) Range: 0 - 5 :48 TSH (80310) Comments: PATIENT WAS FASTINGPERFORMED BY: [employer] [facility] [id number] TSH 3.000 {uIU/mL} (Normal) Range: 0.450-4.500 :48 LIPID PANEL (13243) Comments: PATIENT WAS FASTINGPERFORMED BY: [employer] [facility] [id number] LDL/HDL Ratio 2.8 {ratio_units} (Normal) Range: 0.0-3.2 LDL Cholesterol Calc 105 mg/dL (Abnormal) Range: 0-99 VLDL Cholesterol Leonel 26 mg/dL (Normal) Range: 5-40 HDL Cholesterol 37 mg/dL (Abnormal) Comments: According to ATP-III Guidelines, HDL-C >59 mg/dL is considered anegative risk factor for CHD. Cholesterol, Total 168 mg/dL (Normal) Range: 100-199 Triglycerides 128 mg/dL (Normal) Range: 0-149 :48 URINALYSIS, W/ MICRO (22243) Comments: PATIENT WAS FASTINGPERFORMED BY: Keyhole.coSaint Barnabas Behavioral Health CenterXjzylo8624 [facility] [id number] Microscopic Examination See below: (Normal) Microscopic Examination MICRON (Normal) Comments: Microscopic follows if indicated. Nitrite, Urine Negative (Normal) Urobilinogen,Semi-Qn 0.2 mg/dL (Normal) Range: 0.0-1.9 Bilirubin Negative (Normal) Occult Blood Negative (Normal) Ketones Negative (Normal) Glucose Negative (Normal) Protein Negative (Normal) WBC Esterase Negative (Normal) Appearance Clear (Normal) Urine-Color Yellow (Normal) pH 6.0 (Normal) Range: 5.0-7.5 Specific Esbon 1.026 (Normal) Range: 1.005-1.030 :48 MICROALBUMIN: CREATININE RATIO Comments: PATIENT WAS FASTINGPERFORMED BY: [employer] Upvsao9254 [facility] [id number] (63959) AND (92421) Microalb/Creat Ratio 3.5 {mg/g_creat} (Normal) Range: 0.0-30.0 Microalbumin, Urine 5.6 ug/mL (Normal) Range: 0.0-17.0 Creatinine, Urine 158.6 mg/dL (Normal) Range: 15.0-328.0 :48 METABOLIC PANEL, COMPREHENSIVE Comments: PATIENT WAS FASTINGPERFORMED BY: Keyhole.coSaint Barnabas Behavioral Health CenterCklsgo2982 [facility] [id number] (52629) ALT (SGPT) 26 [iU]/L (Normal) Range: 0-32 [...] Glucose, Serum 100 mg/dL (Abnormal) Range: 65-99 05-Cxo-82839:48 CBC WITH MANUAL DIFF Comments: PATIENT WAS FASTINGPERFORMED BY: LabCoSaint Barnabas Behavioral Health CenterIrjyne2656 [facility] [id number] Information: [id number] (13556) Immature Grans (Abs) 0.0 {x10E3/uL} (Normal) Range: [...] to dr sánchez; PATIENT WAS FASTINGPERFORMED BY: [employer]6370 [facility] [id number] (81583) ALT (SGPT) 25 [iU]/L (Normal) Range: 0-32 AST (SGOT) 21 [iU]/L (Normal) Range: 0-40 Alkaline Phosphatase, S 103 [iU]/L (Normal) Range: 39-117 Bilirubin, Direct 0.16 mg/dL (Normal) Range: 0.00-0.40 Bilirubin, Total 0.8 mg/dL (Normal) Range: 0.0-1.2 Albumin, Serum 4.7 g/dL (Normal) Range: 3.5-5.5 Protein, Total, Serum 7.1 g/dL (Normal) Range: 6.0-8.5 :41 LIPID PANEL (66299) Comments: send to dr sánchez; PATIENT WAS FASTINGPERFORMED BY: [employer] Lrfhkj7235 [facility] [id number] Information: [id number] CC:[id number] 1 LDL Cholesterol Calc 104 mg/dL (Abnormal) Range: 0-99 LDL/HDL Ratio 2.7 {ratio_units} (Normal) Range: 0.0-3.2 HDL Cholesterol 39 mg/dL (Abnormal) Comments: According to ATP-III Guidelines, HDL-C >59 mg/dL is considered anegative risk factor for CHD. VLDL Cholesterol Leonel 20 mg/dL (Normal) Range: 5-40 Triglycerides 100 mg/dL (Normal) Range: 0-149 Cholesterol, Total 163 mg/dL (Normal) Range: 100-199 :47 HgA1C , Office (72799) HgA1C , Office 5.7 % (Normal) Range: 4.6 - 7.1 :47 Blood Glucose , Office (08709) Blood Glucose , Office 142 (Normal) :18 Microscopic Examination Comments: PATIENT WAS FASTINGPERFORMED BY: [employer] Uqcala2711 [place] [employer], LLCDublin [place] [id number] Bacteria None seen (Normal) Mucus Threads Present (Normal) Epithelial Cells (non renal) 0-10 {/hpf} (Normal) Range: 0 - 10 RBC None seen {/hpf} (Normal) Range: 0 - 3 WBC 0-5 {/hpf} (Normal) Range: 0 - 5 :18 Vitamin D Hydroxy (91901) Comments: PATIENT WAS FASTINGPERFORMED BY: [employer] Nkhqmr2882 [employer]-[place] Energybl[place] [id number] Vitamin D, 25-Hydroxy 21.1 ng/mL (Abnormal) Range: 30.0-100.0 Comments: Vitamin D deficiency has been defined by the [place] of[place]icine and an Endocrine Society practice guideline as alevel of serum 25-OH vitamin D less than 20 ng/mL (1,2).The Endocrine Society went on to further define vitamin Dinsufficiency as a level between 21 and 29 ng/mL (2).1. IOM ([place] of Medicine). 2010. Dietary reference intakes for calcium and D. [place]: The National Academies Press.2. Catie MF, Karon [place], Myron KESSLER, et al. Evaluation, treatment, and prevention of vitamin D deficiency: an Endocrine Society clinical practice guideline. JCEM. 2010; 96(7):1911-30. :18 TSH (32436) Comments: PATIENT WAS FASTINGPERFORMED BY: [employer] LabThe Guild Gkswkt1347 [place] [employer], LLCNovant [facility] [id number] TSH 2.340 {uIU/mL} (Normal) Range: 0.450-4.500 :18 URINALYSIS, W/ MICRO (91366) Comments: PATIENT WAS FASTINGPERFORMED BY: [facility]icAsc[facility] Hospital6370 [facility] [id number] Microscopic Examination See below: (Normal) Microscopic Examination MICRON (Normal) Comments: Microscopic follows if indicated. Nitrite, Urine Negative (Normal) Urobilinogen,Semi-Qn 0.2 mg/dL (Normal) Range: 0.0-1.9 Bilirubin Negative (Normal) Occult Blood Negative (Normal) Ketones Negative (Normal) Glucose Negative (Normal) Protein Negative (Normal) WBC Esterase Negative (Normal) Appearance Clear (Normal) pH 6.0 (Normal) Range: 5.0-7.5 Urine-Color Yellow (Normal) Specific [place] 1.024 (Normal) Range: 1.005-1.030 :18 MICROALBUMIN: CREATININE RATIO Comments: PATIENT WAS FASTINGPERFORMED BY: Keyhole.coSaint Barnabas Behavioral Health CenterRhsjul9246 [facility] [id number] (81228) AND (49992) Microalb/Creat Ratio 2.7 {mg/g_creat} (Normal) Range: 0.0-30.0 Creatinine, Urine 138.1 mg/dL (Normal) Range: 15.0-278.0 Microalbumin, Urine 3.7 ug/mL (Normal) Range: 0.0-17.0 :18 METABOLIC PANEL, COMPREHENSIVE Comments: PATIENT WAS FASTINGPERFORMED BY: Keyhole.coSaint Barnabas Behavioral Health CenterQeedfm4817 [facility] [id number] (81673) ALT (SGPT) 25 [iU]/L (Normal) Range: 0-32 [...] mg/dL (Normal) Range: 65-99 :18 LIPID PANEL (27204) Comments: PATIENT WAS FASTINGPERFORMED BY: [employer]70 [facility] [id number] LDL/HDL Ratio 2.8 {ratio_units} (Normal) Range: 0.0-3.2 [...] MANUAL DIFF Comments: PATIENT WAS FASTINGPERFORMED BY: Chelsio CommunicationsSaint Barnabas Behavioral Health CenterPryrqz7892 [facility] [id number] Information: [id number] (22322) Immature Grans (Abs) 0.0 {x10E3/uL} (Normal) Range: [...] (Normal) Range: 3.4-10.8 :31 HgA1C , Office (77138) HgA1C , Office 5.5 % (Normal) Range: 4.6 - 7.1 :31 Blood Glucose , Office (20664) Blood Glucose , Office 113 (Normal) :23 HgA1C , Office (67928) HgA1C , Office 6.1 % (Normal) Range: 4.6 - 7.1 :23 Blood Glucose , Office (05434) Blood Glucose , Office 118 (Normal) :33 Microscopic Examination Comments: PATIENT WAS FASTINGPERFORMED BY: LabAscension [facility] Hospital6370 [facility] [id number] Bacteria None seen (Normal) Mucus Threads Present (Normal) Epithelial Cells (non renal) 0-10 {/hpf} (Normal) Range: 0 - 10 RBC 0-3 {/hpf} (Normal) Range: 0 - 3 WBC 0-5 {/hpf} (Normal) Range: 0 - 5 :27 FECAL OCCULT HGB ASSAY- tubes sent home (29497) FECAL OCCULT HGB ASSAY, QUAL, 1-3 SIMULTANEOU negative (Normal) :33 TSH (14223) Comments: PATIENT WAS FASTINGPERFORMED BY: [employer] Ongnre0150 [facility] [id number] TSH 3.330 {uIU/mL} (Normal) Range: 0.450-4.500 :33 URINALYSIS, W/ MICRO (14502) Comments: PATIENT WAS FASTINGPERFORMED BY: [employer] Xsncyt2045 [facility] [id number] Microscopic Examination See below: (Normal) Microscopic Examination MICRON (Normal) Comments: Microscopic follows if indicated. Nitrite, Urine Negative (Normal) Urobilinogen,Semi-Qn 0.2 mg/dL (Normal) Range: 0.0-1.9 Bilirubin Negative (Normal) Occult Blood Negative (Normal) Ketones Negative (Normal) Glucose Negative (Normal) Protein Negative (Normal) WBC Esterase Negative (Normal) Appearance Clear (Normal) Urine-Color Yellow (Normal) pH 7.0 (Normal) Range: 5.0-7.5 Specific Esbon 1.021 (Normal) Range: 1.005-1.030 28-Qog-237980:33 MICROALBUMIN: CREATININE RATIO Comments: PATIENT WAS FASTINGPERFORMED BY: Keyhole.coSaint Barnabas Behavioral Health CenterHyrluo2104 [facility] [id number] (91987) AND (62101) Microalb/Creat Ratio 1.6 {mg/g_creat} (Normal) Range: 0.0-30.0 Creatinine, Urine 154.5 mg/dL (Normal) Range: 15.0-278.0 Microalbumin, Urine 2.5 ug/mL (Normal) Range: 0.0-17.0 00-Xby-293324:33 METABOLIC PANEL, COMPREHENSIVE Comments: PATIENT WAS FASTINGPERFORMED BY: DAVID [employer] [facility] [id number] (53407) ALT (SGPT) 24 [iU]/L (Normal) Range: 0-32 [...] Glucose, Serum 105 mg/dL (Abnormal) Range: 65-99 94-Jri-994283:33 LIPID PANEL (79393) Comments: PATIENT WAS FASTINGPERFORMED BY: thephotocloser.comin [place] [id number] LDL Cholesterol Calc 115 mg/dL (Abnormal) Range: 0-99 LDL/HDL Ratio 2.9 {ratio_units} (Normal) Range: 0.0-3.2 HDL Cholesterol 39 mg/dL (Abnormal) Comments: According to ATP-III Guidelines, HDL-C >59 mg/dL is considered anegative risk factor for CHD. VLDL Cholesterol Leonel 32 mg/dL (Normal) Range: 5-40 Cholesterol, Total 186 mg/dL (Normal) Range: 100-199 Triglycerides 160 mg/dL (Abnormal) Range: 0-149 34-Vzc-340976:33 CBC WITH MANUAL DIFF Comments: PATIENT WAS FASTINGPERFORMED BY: DAVID [facility] Luxtga1782 [facility] [id number] Information: [id number] (13806) Immature Grans (Abs) 0.0 {x10E3/uL} (Normal) Range: [...] (Normal) Range: 4.0-10.5 :33 Vitamin D Hydroxy (47585) Comments: PATIENT WAS FASTINGPERFORMED BY: LabCo Xoytta3699 [facility] [id number] Vitamin D, 25-Hydroxy 46.4 ng/mL (Normal) Range: 30.0-100.0 Comments: Vitamin D deficiency has been defined by the [place] of[facility]cine and an Endocrine Society practice guideline as alevel of serum 25-OH vitamin D less than 20 ng/mL (1,2).The Endocrine Society went on to further define vitamin Dinsufficiency as a level between 21 and 29 ng/mL (2).1. IOM ([place] of Medicine). 2010. Dietary reference intakes for calcium and D. [place]: The National Academies Press.2. Catie MF, Karon [place], Myron KESSLER, et al. Evaluation, treatment, and prevention of vitamin D deficiency: an Endocrine Society clinical practice guideline. JCEM. 2010; 96(7):1911-30. :58 HgA1C , Office (36503) HgA1C , Office 6.0 % (Normal) Range: 4.6 - 7.1 :58 Blood Glucose , Office (25420) Blood Glucose , Office 92 (Normal) :59 HgA1C , Office (61740) HgA1C , Office 5.5 % (Normal) Range: 4.6 - 7.1 :59 Blood Glucose , Office (24884) Blood Glucose , Office 105 (Normal) :40 LIPID PANEL (21180) Comments: PATIENT WAS FASTINGPERFORMED BY: LabCoSaint Barnabas Behavioral Health CenterAisnhh9248 [facility] [id number] LDL Cholesterol Calc 144 mg/dL (Abnormal) Range: 0-99 LDL/HDL Ratio 3.1 {ratio_units} (Normal) Range: 0.0-3.2 VLDL Cholesterol Leonel 24 mg/dL (Normal) Range: 5-40 HDL Cholesterol 46 mg/dL (Normal) Comments: According to ATP-III Guidelines, HDL-C >59 mg/dL is considered anegative risk factor for CHD. Triglycerides 118 mg/dL (Normal) Range: 0-149 Cholesterol, Total 214 mg/dL (Abnormal) Range: 100-199 :40 TSH (28726) Comments: PATIENT WAS FASTINGPERFORMED BY: [employer] [facility] [id number] TSH 2.430 {uIU/mL} (Normal) Range: 0.450-4.500 :40 URINALYSIS, W/ MICRO (99492) Comments: PATIENT WAS FASTINGPERFORMED BY: [employer] [facility] [id number] Microscopic Examination See below: (Normal) Microscopic Examination MICRON (Normal) Comments: Microscopic follows if indicated. Nitrite, Urine Negative (Normal) Urobilinogen,Semi-Qn 0.2 mg/dL (Normal) Range: 0.0-1.9 Bilirubin Negative (Normal) Occult Blood Negative (Normal) Ketones Negative (Normal) Glucose Negative (Normal) Protein Negative (Normal) WBC Esterase Negative (Normal) Appearance Clear (Normal) Urine-Color Yellow (Normal) pH 5.5 (Normal) Range: 5.0-7.5 Specific Esbon 1.022 (Normal) Range: 1.005-1.030 :40 MICROALBUMIN: CREATININE RATIO Comments: PATIENT WAS FASTINGPERFORMED BY: Chelsio CommunicationsSaint Barnabas Behavioral Health CenterOebuxv2046 [facility] [id number] (03961) AND (44508) Microalb/Creat Ratio 2.2 {mg/g_creat} (Normal) Range: 0.0-30.0 Creatinine, Urine 124.7 mg/dL (Normal) Range: 15.0-278.0 Microalbumin, Urine 2.7 ug/mL (Normal) Range: 0.0-17.0 :40 METABOLIC PANEL, COMPREHENSIVE Comments: PATIENT WAS FASTINGPERFORMED BY: Chelsio CommunicationsSaint Barnabas Behavioral Health CenterNgpibq0587 [facility] [id number] (33127) ALT (SGPT) 27 [iU]/L (Normal) Range: 0-32 [...] Glucose, Serum 119 mg/dL (Abnormal) Range: 65-99 6-Crm-687631:40 CBC WITH MANUAL DIFF Comments: PATIENT WAS FASTINGPERFORMED BY: [facility]6370 [facility] [id number] Information: [id number] (30682) Immature Grans (Abs) 0.0 {x10E3/uL} (Normal) Range: [...] Examination Comments: PATIENT WAS FASTINGPERFORMED BY: LabAscension [facility] Hospital6370 [facility] [id number] Bacteria None seen (Normal) Mucus Threads Present (Normal) Epithelial Cells (non renal) 0-10 {/hpf} (Normal) Range: 0 - 10 RBC None seen {/hpf} (Normal) Range: 0 - 3 WBC 0-5 {/hpf} (Normal) Range: 0 - 5 :59 HgA1C , Office (06725) HgA1C , Office 5.8 % (Normal) Range: 4.6 - 7.1 :59 Blood Glucose , Office (92278) Blood Glucose , Office 137 (Normal) 1-Gef-544291:50 URINE SHANI CULTURE (MICHAEL Comments: PATIENT NOT FASTINGPERFORMED BY: Chelsio CommunicationsSaint Barnabas Behavioral Health CenterNzyumj2401 [facility] [id number] Information: SRC:UR [id number] COL COUNT) (76619) Result 1 MUG (Normal) Comments: Mixed urogenital flora10,000-25,000 colony forming units per mL Urine Final report (Normal) Culture,Comprehensive :53 Urinalysis, Office (81848) UA - BILIRUBIN Large (Normal) UA - BLOOD Negative (Normal) UA - GLUCOSE Negative (Normal) UA - KETONES Negative mg/dL (Normal) UA - LEUKOCYTE ESTERASE Negative (Normal) UA - NITRITE Negative (Normal) UA - PH 6.0 (Normal) UA - PROTEIN Negative mg/dL (Normal) UA - SPECIFIC GRAVITY 1.025 (Normal) URINE UROBILINGN MICHAEL TIMED Normal mg/dL (Normal) 99-Gxz-917378:17 Microscopic Examination Comments: PATIENT WAS FASTINGPERFORMED BY: [employer]70 [facility] [id number] Bacteria None seen (Normal) Mucus Threads Present (Normal) Epithelial Cells (non renal) 0-10 {/hpf} (Normal) Range: 0 - 10 RBC 0-3 {/hpf} (Normal) Range: 0 - 3 WBC 0-5 {/hpf} (Normal) Range: 0 - 5 63-Qmp-049687:32 L/S SPINE,MIN 4 VIEWS Radiology Report See [...] Saxena M.D.September 24, 2011 at 3:23:12 PM [id number] Signed GP/GP If you are the referring physician and would like t o consult with theradiologist who provided this interpretation, please contact Marcelo Choudhury at [phone]. If this radiologist is unavailable, youwill be directed to another radiologist to assist. If you are a patient with a question regarding this report, pleasecontactyour referring physician directly. Professional Interpretation Provided By: [employer], Phone ,Fax Dictated on 09/24/11 1000 by Odessa VIDALES,Aylinranscribed on 09/24/11 1530 by ITS IMPORTSign by Odessa VIDALES,Ross on 09/24/11 1530 Sign by: Ross Saxena MD 40-Gwk-449782:17 Hemoglobin Glyclated (HGB A1C) Comments: PATIENT WAS FASTINGPERFORMED BY: [employer]6370 [facility] [id number] (28100) Hemoglobin A1c 5.6 % (Normal) Range: 4.8-5.6 Comments: . Increased risk for diabetes: 5.7 - 6.4 Diabetes: >6.4 Glycemic control for adults with diabetes: <7.0 32-Nal-602177:17 LIPID PANEL (64156) Comments: PATIENT WAS FASTINGPERFORMED BY: [employer]6370 [facility] [id number] LDL/HDL Ratio 3.2 {ratio_units} (Normal) Range: 0.0-3.2 LDL Cholesterol Calc 126 mg/dL (Abnormal) Range: 0-99 VLDL Cholesterol Leonel 30 mg/dL (Normal) Range: 5-40 HDL Cholesterol 40 mg/dL (Normal) Comments: According to ATP-III Guidelines, HDL-C >59 mg/dL is considered anegative risk factor for CHD. Triglycerides 151 mg/dL (Abnormal) Range: 0-149 Cholesterol, Total 196 mg/dL (Normal) Range: 100-199 31-Svl-577568:17 TSH (20427) Comments: PATIENT WAS FASTINGPERFORMED BY: Keyhole.coSaint [facility]abas Behavioral Health CenterSkjwyb6406 [facility] [id number] TSH 2.330 {uIU/mL} (Normal) Range: 0.450-4.500 55-Nkv-965489:17 URINALYSIS, W/ MICRO (77452) Comments: PATIENT WAS FASTINGPERFORMED BY: [facility]hole.coSaint Barnabas Behavioral Health CenterNhrhvb7243 [facility] [id number] Microscopic Examination See below: (Normal) Microscopic Examination MICRON (Normal) Comments: Microscopic follows if indicated. Nitrite, Urine Negative (Normal) Urobilinogen,Semi-Qn 0.2 mg/dL (Normal) Range: 0.0-1.9 Bilirubin Negative (Normal) Occult Blood Negative (Normal) Ketones Negative (Normal) Glucose Negative (Normal) Protein Negative (Normal) WBC Esterase Negative (Normal) Appearance Clear (Normal) Urine-Color Yellow (Normal) pH 5.0 (Normal) Range: 5.0-7.5 Specific [place] 1.022 (Normal) Range: 1.005-1.030 90-Fuo-521996:17 MICROALBUMIN: CREATININE RATIO Comments: PATIENT WAS FASTINGPERFORMED BY: [facility]hole.coSaint [facility]ab[facility] CenterAchfkp3254 [facility] [id number] ([id number]) AND (02726) Microalb/Creat Ratio 2.4 {mg/g_creat} (Normal) Range: 0.0-30.0 Microalbumin, Urine 3.0 ug/mL (Normal) Range: 0.0-17.0 Creatinine, Urine 125.5 mg/dL (Normal) Range: 15.0-278.0 :17 METABOLIC PANEL, COMPREHENSIVE Comments: PATIENT WAS FASTINGPERFORMED BY: [facility].coSaint [facility]ab[facility] CenterEbgotz8842 [facility] [id number] (62394) ALT (SGPT) 18 [iU]/L (Normal) Range: 0-40 [...] Glucose, Serum 100 mg/dL (Abnormal) Range: 65-99 31-Klg-311368:17 CBC WITH MANUAL DIFF Comments: PATIENT WAS FASTINGPERFORMED BY: [facility]6370 [facility] [id number] Information: [id number] ([id number]) Immature Grans (Abs) 0.0 {x10E3/uL} (Normal) Range: [...] (Normal) Range: 4.0-10.5 :17 Vitamin D Hydroxy (32227) Comments: PATIENT WAS FASTINGPERFORMED BY: [facility]6370 [facility] [id number] Vitamin D, 25-Hydroxy 15.2 ng/mL (Abnormal) Range: 30.0-100.0 Comments: Vitamin D deficiency has been defined by the [place] [facility] and an Endocrine Society practice guideline as alevel of serum 25-OH vitamin D less than 20 ng/mL (1,2).The Endocrine Society went on to further define vitamin Dinsufficiency as a level between 21 and 29 ng/mL (2).1. IOM ([place] of Medicine). 2010. Dietary reference intakes for calcium and D. [place]: The National Academies Press.2. Catie MF, Karon ACEVEDO, Myron KESSLER, et al. Evaluation, treatment, and prevention of vitamin D deficiency: an Endocrine Society clinical practice guideline. JCEM. 2010; 96(7):1911-30. 56-Jrk-601735:46 CK, Total+Isoenzymes, Serum Comments: PATIENT NOT FASTINGPERFORMED BY: [facility].coSaint [facility]ab[facility] CenterRqzuhg5959 [facility] [id number] CK-BB 0 % (Normal) CK-MB 0 % (Normal) Range: 0-3 Macro Type 1 0 % (Normal) CK-MM 100 % (Normal) Range: 97-100 Macro Type 2 0 % (Normal) Creatine Kinase,Total,Serum 82 U/L (Normal) Range: 24-173 16-Dys-633399:00 Urinalysis, Office (67893) UA - BILIRUBIN Negative (Normal) UA - BLOOD Negative (Normal) UA - GLUCOSE Negative (Normal) UA - KETONES Negative mg/dL (Normal) UA - LEUKOCYTE ESTERASE Negative (Normal) UA - NITRITE Negative (Normal) UA - PH 5.0 (Normal) UA - PROTEIN Negative mg/dL (Normal) UA - SPECIFIC GRAVITY 1.025 (Normal) URINE UROBILINGN MICHAEL TIMED Normal mg/dL (Normal) 98-Jjv-308800:49 HgA1C , Office (30711) HgA1C , Office 6.4 % (Normal) Range: 4.6 - 7.1 31-Sjl-377045:49 Blood Glucose , Office (67848) Blood Glucose , Office 186 (Normal) 94-Mde-392469:14 Metabolic Panel, Basic Comments: PATIENT NOT FASTINGPERFORMED BY: [employer] Xuvijg0142 [facility] [id number] Information: [id number] (34875) Calcium, Serum 9.4 mg/dL (Normal) Range: 8.7-10.2 [...] Glucose, Serum 202 mg/dL (Abnormal) Range: 65-99 68-Jsd-23163:45 Urinalysis, Office (94535) UA - BILIRUBIN Small (Normal) UA - BLOOD Negative (Normal) UA - GLUCOSE Negative (Normal) UA - KETONES Small mg/dL (Normal) UA - LEUKOCYTE ESTERASE Negative (Normal) UA - NITRITE Negative (Normal) UA - PH 5.0 (Normal) UA - PROTEIN Negative mg/dL (Normal) UA - SPECIFIC GRAVITY 1.025 (Normal) URINE UROBILINGN MICHAEL TIMED Normal mg/dL (Normal) 4-Osw-671460:50 URINE SHANI CULTURE-MICHAEL COL Comments: PATIENT NOT FASTINGPERFORMED BY: LabCoSaint Barnabas Behavioral Health CenterNgygne5897 [facility] [id number] Information: SRC:UR [id number] COUNT (82114) Result 1 ECV (Normal) Comments: Escherichia coli, [...] S Urine Final report (Normal) Culture,Comprehensiv e 7-Mof-938847:27 Urinalysis, Office (36369) UA - BILIRUBIN Small (Normal) UA - BLOOD Hemolyzed Large (Normal) UA - GLUCOSE Negative (Normal) UA - KETONES Negative mg/dL (Normal) UA - LEUKOCYTE ESTERASE Small (Normal) UA - NITRITE Negative (Normal) UA - PH 6.0 (Normal) UA - PROTEIN 300 mg/dL (Normal) UA - SPECIFIC GRAVITY 1.025 (Normal) URINE UROBILINGN MICHAEL TIMED Normal mg/dL (Normal) 75-Wum-638912:03 CALCIFIDIOL (84411) VIT D Comments: PATIENT NOT FASTINGPERFORMED BY: DAVID [facility] Dlxvkw8682 Willy Goncalves [place] [id number] Information: [id number] 25 Vitamin D, 25-Hydroxy 28.0 ng/mL (Abnormal) Range: 32.0-100.0 Comments: Effective January 26, 2011 Vitamin D, 25-Hydroxy reference intervals will be changing to 30-100. .Recent studies consider the lower li lucio of 32.0 ng/mL to be athreshold for optimal health.Francisco Javier FOSTER. J Nutr. 2004;135(2):317-22. 34-Yhu-608115:09 KNEE,4 OR MORE VIEWS Radiology Report See [...] 10/03/10 1324 Sign by: Ross Saxena MD 45-Qsf-37198:00 KNEE,4 OR MORE VIEWS Radiology Report See [...] 10/03/10 1325 Sign by: Ross Saxena MD 16-Bly-50570:00 RHEUMATOID FACTOR-QUANT Comments: PATIENT NOT FASTINGPERFORMED BY: thephotocloser.comAmerican Healthcare Systems [id number] BY: [place] [id number] (38807) RA Latex Turbid. 8.6 {IU/mL} (Normal) Range: 0.0-13.9 :00 PARATHORMONE (19439) Comments: PATIENT NOT FASTINGPERFORMED BY: [employer] Energyin [place] [id number] BY: Keyhole.co[address] [id number] PTH, Intact 23 pg/mL (Normal) Range: 15-65 :00 CALCIUM SERUM (38770) Comments: PATIENT NOT FASTINGPERFORMED BY: [employer]70 ECO-GEN EnergyAmerican Healthcare Systems [id number] BY: [employer] [id number] Calcium, Serum 9.4 mg/dL (Normal) Range: 8.7-10.2 CCP Antibodies IgG/IgA 3 {units} (Normal) Comments: PATIENT NOT FASTINGPERFORMED BY: [employer]70 Agu[facility]era MadmagzAmerican Healthcare Systems [id number] BY: Keyhole[employer]co[address] [id number] :00 Range: 0-19 Comments: Negative <20 Weak positive 20 - 39 Moderate positive 40 - 59 Strong positive >59 :15 STEVE DIR SEMI-QL STEVE DIRECT 33 AU/mL (Normal) :15 ANTI JO1 ANTI BAIGAIL 7 AU/mL (Normal) :15 C-REACTIVE PROT 3.34 [...] {uIU/mL} (Normal) Range: 0.358-3.74 :15 VIT D,25 67107 13.3 ng/mL (Abnormal) Comments: appt 09/29/10 Range: 32.0-100.0 Comments: Recent studies consider the lower limit of 32.0 ng/mL to dory threshold for optimal health.Francisco Javier FOSTER. J Nutr. 2004;135(2):317-22.Performed at: [address] Director: Hamida Boyer MD, Phone: [phone] 52-Xep-83803:20 HEPATOBILIARY IMAGING Radiology Report See Note (Normal) [...] 1015 Sign by: ADRIAN OCASIO MD H.PYLORI [id number] < 0.9 U/mL Range: 0.0-0.8 3:08 (Normal) Comments: Negative <0.9 Indeterminate 0.9 - 1.0 Positive >1.0Performed at: CB - [facility] Qqtquk26 [address] [facility], [place], [place] [id number] Director: Hamida Boyer MD, Phone: [phone] 84-Wat-789997:21 FECAL OCCULT- Tubes sent home (01290) FECAL OCCULT HGB ASSAY, QUAL, 1-3 SIMULTANEOU negative (Normal) 11-Sep-20088:22 THYROID IMAGING ONLY Radiology Report See Note (Normal) Comments: Exam Number: [id number] THYROID SCAN AND UPTAKE The patient was [...] on August. Reported By: KEVIN YUAN M.D. 08-Nxa-947112:05 THYROID Radiology Report See Note (Normal) Comments: Exam Number: [id number] CLINICAL:52-year-old female with nodules ULTRASOUND THYROID COMPARISON:None. [...] Report See Note (Normal) Comments: Exam Number: [id number] CLINICAL:52-year-old female with swollen areas at base of neck, anteriorly. Possible supraclavicular masses. 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 No [...] further evaluation. Reported By: DONTAE ESPINAL M.D. 92-Uhk-967449:47 UPPER EXT/JT ONLY (ROUTINE) Radiology Report See Note (Normal) Comments: Exam Number: [id number] MRI OF THE RIGHT SHOULDER WITHOUT CONTRAST. [...] subacromial fat. Reported By: EMELI COLEMAN M.D. 8-Blh-777994:03 SHOULDER,MIN 2 VIEWS (MT) Radiology Report See Note (Normal) Comments: Exam Number: [id number] RIGHT SHOULDER, 4 VIEWS CLINICAL STATEMENTPain. PRIOR STUDIESNone. No acute fracture, joint dislocation or AC joint separation is shown. Joint spaces are maintained. No significa nt spurring or pathologiccalcifications. No suspicious bone lesions. Right lung apex isclear. IMPRESSIONNegative right shoulder. Reported By: LESLI CURIEL M.D. 42-Uyu-704524:15 GASTRIC EMPTYING STUDY Radiology Report See Note (Normal) Comments: Exam Number: [id number] NUCLEAR MEDICINE GASTRIC EMPTYING STUDY SOLID PHASE [...] II, controlled, with no complications : Reviewed Director Of Restaurant Operations Letter Indication: Diabetes mellitus type II, controlled, [...] mellitus, well controlled Abscess, abdomen : Reviewed Director Of Restaurant Operations Letter Indication: Abscess, abdomen Type II diabetes mellitus, well controlled : Eprescribed prescriptions (G8553) Indication: Type II diabetes mellitus, well controlled Abscess, abdomen : Reviewed Director Of Restaurant Operations Letter- [facility] [...] : Follow up in 2 weeks with [facility] for diabetic teaching Indication: Other specified [...] disease) Planned Observations Rapid Strep Test, Office (51793)Indication: Sore throat On: 19-Dct-570306:31 Request SED RATE ERYTHROCYTE (13535)Indication: Abscess, abdomen On: 16-Dec-2015 Request BACT CULTURE ANY-ANAEROBIC (16986)Indication: Abscess, abdomen On: 13-Dec-20157:42 Request CALCIFIDIOL (89475) VIT D 25Indication: Vitamin D deficiency, unspecified On: 96-Boi-351372:30 Request CPK MB FRACTION (60107)Indication: Chest pain at rest On: 6-Bof-985136:30 Request CREATINE KINASE TOTAL (23758)Indication: Chest pain at rest On: 1-Wnm-442783:30 Request Troponin I (84092)Indication: Chest pain On: 24-Sjm-434374:19 Request CPK MB FRACTION (73156)Indication: Chest pain On: 52-Lmu-008201:19 Request CREATINE KINASE TOTAL (52169)Indication: Chest pain On: 51-Bbw-330581:19 Request C-Reactive Protein (21110)Indication: Chest pain On: 82-Nli-331627:19 Request Vitamin D Hydroxy (31316)Indication: Vitamin D deficiency, unspecified On: 30-Iwg-50471:00 Request TSH (02775)Indication: Diabetes mellitus type II, controlled, with no complications On: 86-Lpz-95607:59 Request URINALYSIS, W/ MICRO (43156)Indication: Diabetes mellitus type II, controlled, with no complications On: 00-Csg-63651:59 Request MICROALBUMIN: CREATININE RATIO (30537) AND (66944)Indication: Diabetes mellitus type II, controlled, with no complications On: :59 Request METABOLIC PANEL, COMPREHENSIVE (40772)Indication: Diabetes mellitus type II, controlled, with no complications On: 49-Xcl-26587:59 Request LIPID PANEL (65012)Indication: Hypercholesteremia On: :59 Request CBC W/AUTO DIFF WBC (40551)Indication: Diabetes mellitus type II, controlled, with no complications On: :59 Request Blood Glucose , Office (21595)Indication: Diabetes mellitus type II, controlled, with no complications On: 29-Gvb-80138:51 Request Lipid Panel (52715)Indication: Hypercholesteremia On: 10-Pde-271585:10 Request HEPATIC FUNCTION PANEL (76371)Indication: Hypercholesteremia On: 10-Atd-577005:10 Request LIPID PANEL (93346)Indication: Hypercholesteremia On: 26-Hev-96692:48 Request CPK TOTAL & ISOENZYMES (20261)Indication: Epigastric pain On: 87-Put-075345:33 Request Urinalysis, Office (22720)Indication: Dysuria On: 6-Nab-397677:01 Request CCP ANTIBODY (74732)Indication: Pain in joint, unspecified site On: 88-Mew-31615:51 Request STEVE (ANTINUCLEAR ANTIBODY) (71605)Indication: Myalgia On: 75-Fqi-729589:24 Request CALCIFIDIOL (07479) VIT D 25Indication: Myalgia On: :20 Request TSH (02643)Indication: Myalgia On: :20 Request SED RATE ERYTHROCYTE (46787)Indication: Myalgia On: :20 Request STEVE (ANTINUCLEAR ANTIBODY) (44263)Indication: Myalgia On: 67-Rrl-304474:20 Request Anti-Abigail-1 (30277)Indication: Myalgia On: :20 Request Creatine Kinase Total (25527)Indication: Myalgia On: 68-Whh-888615:19 Request C-Reactive Protein (16474)Indication: Myalgia On: 96-Fzf-212202:19 Request HELICOBACTER PYLORI ANTIBODY (68814)Indication: Epigastric pain On: 24-Ysr-427245:21 Request Planned Procedures B 12 Injection, 1000 mcg On: 24-Jan-2018 Intent (J3420)By: Tammy Shaw Comments: lot:[id number]:July 2019site/route: L dltdamt: 1mlJasmin, CCMA B 12 Injection, 1000 mcg On: 05-Jan-2018 Intent (J3420)By: Leticia Pugh DO Comments: lot: [id number]: ite/route: R del/IMamt: 1mLVIS signed when applicableCRISTINO Caseytaya ISAACS Leticia B 12 Injection, 1000 mcg On: 09-Dec-2017 Intent (J3420)By: Leticia Pugh DO Comments: Vitamin B12 1000 mcg injectionLot--[id number]--jan 2019L Delt IMpt tolerated wellSUSI, ACCOUNTS RECEIVABLE ADMINISTRATOR Lexy DO Leticia B 12 Injection, 1000 mcg On: 26-Nov-2017 Intent (J3420)By: Tammy Shaw Comments: lot:[id number]:jan 2019site/route:L deltoid amt:1ml 1,000mcg/mlJasmin, CCMA B 12 Injection, 1000 mcg On: 15-Nov-2017 Intent (J3420)By: Leticia Pugh DO Comments: lot: [id number]: 01/24site/route: L del/IMamt: 1mLVIS signed when applicableChelsCRISTINO mikeon [place] ISAACSeen INJECTION, VITAMIN B-12 On: 27-Oct-2017 Intent CYANOCOBALAMIN, UP TO 1000 MCG Comments: lot:[id number]:rte:IM right deltoid dose:1ml given by:fozia Overton LPN (Special Coverage Instructions Apply. See CIM: 45-4 and MCM: 2049) (J3420)By: Visit, Nurse B 12 Injection, 1000 mcg On: 15-Oct-2017 Intent (J3420)By: Visit, Nurse Comments: lot:[id number]:05/2019rte:IM left arm dose:1ml given by:fozia GALLEGOS signedER, ACCOUNTS RECEIVABLE ADMINISTRATOR B 12 Injection, 1000 mcg On: 30-Sep-2017 Intent (J3420)By: Visit, Nurse Comments: [id number]/45766gs, 76109kxgh dltd, IMCM, COMPLIANCE COORDINATOR B 12 Injection, 1000 mcg On: 16-Sep-2017 Intent (J3420)By: Rolando Calderon Comments: Vitamin b12 1000mcg injection lot:[id number]:05/2018L DELT IMpt tolerated well MSMITH,ACCOUNTS RECEIVABLE ADMINISTRATOR B 12 Injection, 1000 mcg On: 02-Sep-2017 Intent (J3420)By: Visit, Nurse Comments: 1 ml given rt arm lot [id number] EXP 05/24 B 12 Injection, 1000 mcg On: 19-Aug-2017 Intent (J3420)By: Rolando Calderon Comments: Vitamin b12 1000mcg injection lot:[id number]:12/2018L DELT IMpt tolerated well MSMITH,ACCOUNTS RECEIVABLE ADMINISTRATOR B 12 Injection, 1000 mcg On: 06-Aug-2017 Intent (J3420)By: Leticia Pugh DO Comments: vitamin b12 1000mcg injectionlot: [id number]: 12/2018L DELT IMpt tolerated wellAD ACCOUNTS RECEIVABLE ADMINISTRATOR Leticia Pugh DO B 12 Injection, 1000 mcg On: 22-Jul-2017 Intent (J3420)By: Leticia Pugh DO Comments: Vitamin b12 1000mcg injection lot:[id number]:12/2018R DELT IMpt tolerated well MSMITH,ACCOUNTS RECEIVABLE ADMINISTRATOR Leticia Pugh DO B 12 Injection, 1000 mcg On: 09-Jul-2017 Intent (J3420)By: Leticia Pugh DO Comments: Vitamin b12 1000mcg injection lot:[id number]:12/2018L DELT IMpt tolerated well MSMITH,ACCOUNTS RECEIVABLE ADMINISTRATOR Leticia Pugh DO B 12 Injection, 1000 mcg On: 24-Jun-2017 Intent (J3420)By: Leticia Pugh DO Comments: vitamin b12 1000mcg injectionlot: [id number]: 12/2018L DELT IMpt tolerated wellAD ACCOUNTS RECEIVABLE ADMINISTRATOR Leticia Pugh DO B 12 Injection, 1000 mcg On: 11-Jun-2017 Intent (J3420)By: Christoph CHOPRA Tanvi Mary Comments: lot [id number] 07/2018rt kwfk9937 mcgas, ACCOUNTS RECEIVABLE ADMINISTRATOR B 12 Injection, 1000 mcg On: 28-May-2017 Intent (J3420)By: Visit, Nurse Comments: [id number] dltd, IM Toradol Injection, 30 mg On: 28-May-2017 Intent (J1885)By: Visit, Nurse Comments: 72744ad5/2019R hip, IM30mg/2 unitsMLONG, ACCOUNTS RECEIVABLE ADMINISTRATOR Toradol Injection, 30 mg On: 21-May-2017 Intent (J1885)By: Leticia Pugh DO Comments: toradol 30mg injectionlot: [id number]: 10/2018L GMpt tolerated wellAD ACCOUNTS RECEIVABLE ADMINISTRATOR Leticia Pugh DO X-RAY OF SACROILIAC JOINT On: 21-May-2017 Intent (34609)By: Leticia Pugh DO, DO, Kathleen B 12 Injection, 1000 mcg On: 13-May-2017 Intent (J3420)By: Visit, Nurse Comments: [id number] dltd, iMMEGAN, ACCOUNTS RECEIVABLE ADMINISTRATOR B 12 Injection, 1000 mcg On: 29-Apr-2017 Intent (J3420)By: Leticia Pugh DO Comments: vitamin b12 1000mcg injectionlot: [id number]: 07/2018L DELT IMpt tolerated wellAD ACCOUNTS RECEIVABLE ADMINISTRATOR Carole Pugh DOhleen B 12 Injection, 1000 mcg On: 16-Apr-2017 Intent (J3420)By: Yamilex Duffy Comments: vitamin b12 1000mcg injectionlot: [id number]: 07/2018L DELT IMpt tolerated wellAD ACCOUNTS RECEIVABLE ADMINISTRATOR B 12 Injection, 1000 mcg On: 01-Apr-2017 Intent (J3420)By: Leticia Pugh DO Comments: vitamin b12 1000mcg injectionlot: [id number]: 07/2019L DELT IMpt tolerated wellAD ACCOUNTS RECEIVABLE ADMINISTRATOR Lexy DO, Leticia B 12 Injection, 1000 mcg On: 18-Mar-2017 Intent (J3420)By: Leticia Pugh DO Comments: Lot:[id number]:07/2018Dose:1mlRoute:IMSite:l arm Given By:LATANYA signed Lexy DO Leticia [...] injectionlot: 7062exp: 04/2018L DELT IMpt tolerated wellAD ACCOUNTS RECEIVABLE ADMINISTRATOR Lexy DO, Leticia B 12 Injection, 1000 mcg On: 01-Jan-2017 Intent (J3420)By: Leticia Pugh DO Comments: lot: [id number]: 04/26site/route: L del/IMamt: 1mLVIS signed when applicableCRISTINO Casey Lexy DO, Leticia B 12 Injection, 1000 mcg On: 18-Dec-2016 Intent (J3420)By: Leticia Pugh DO Comments: b12 1000mcg lot [id number]: 10/2017L Delt IMpt tolerated wellAD ACCOUNTS RECEIVABLE ADMINISTRATOR Lexy DO Leticia B 12 Injection, 1000 [...] ite/route: L del/IMamt: 1mLVIS signed when applicableChelsea, COMPLIANCE COORDINATOR Lexy DO, Leticia B 12 Injection, 1000 mcg On: 23-Oct-2016 Intent (J3420)By: Visit, Nurse Comments: [id number] DltdDarius lpn B 12 Injection, 1000 mcg [...] 19-May-2016 Intent (J3420)By: Tanvi Hawthorne CNP Comments: Lot:[id number]:09/2017Dose:1mlRoute:IMSite:l armGiven By:LATANYA signed Wax CurettesBy: Tanvi Hawthorne CNP On: 19-May-2016 Intent Ear Irrigation (77858)By: Christoph On: 19-May-2016 Intent Tanvi CHOPRA B [...] Leticia Pugh DO CAT SCAN OF ABDOMEN (39232)By: On: 12-Dec-2015 Intent Lexy DOLeticia Lexy DO, Leticia B 12 Injection, 1000 mcg On: 06-Dec-2015 Intent (J3420)By: Leticia Pugh DO Comments: B12lot:6185exp:ite:lt deltroute:IMdose:1mlD.JEANMARIE Ray Leticia Pugh DO Rocephin Injection, 2 Gram On: 04-Dec-2015 Intent (J0696)By: Tammy Ortez DO Comments: lot: [id number]: 03/08/18site/route: RGM and LGM/IMamt: 2GVIS signed when applicableChelscee COMPLIANCE COORDINATOR B 12 Injection, 1000 mcg On: 25-Nov-2015 Intent (J3420)By: Leticia Pugh DO Comments: Lot:615Exp:06/23Dose:1mlRoute:IMSite:l armGiven By:MLVIS signed Leticia Pugh DO B 12 Injection, 1000 mcg On: 08-Nov-2015 Intent (J3420)By: Leticia Pugh DO Comments: 1000 mcglot 75088/18left dltdIMas, ACCOUNTS RECEIVABLE ADMINISTRATOR Leticia Pugh DO B 12 Injection, 1000 mcg On: 22-Oct-2015 Intent (J3420)By: Visit, Nurse Comments: 02147/181mlLdltdML, ACCOUNTS RECEIVABLE ADMINISTRATOR B 12 Injection, 1000 mcg On: 03-Oct-2015 Intent (J3420)By: Henri Ray Comments: B12lot:6155exp:ite:rt deltroute:IMdose:1mlD.JEANMARIE Ray B 12 Injection, 1000 mcg On: 20-Sep-2015 Intent (J3420)By: Danika Caputo MD Comments: Lot:[id number]:07/23Dose:1mlRoute:IMSite:l armGiven By:JKARELYVIS signed B 12 Injection, 1000 mcg On: 05-Sep-2015 Intent (J3420)By: Leticia Pugh DO Comments: B12lot:5200exp:07/22site:rt glutroute:imdose:1mlD.JEANMARIE Ray DO, Kathleen TD VACCINE ADULT (33734)By: On: 04-Apr-2015 Intent Henri Ray TDAP VACCINE >7 IM (55256)By: On: 04-Apr-2015 Intent Henri Ray Comments: Tdaplot:BC0ORvbo:01/24/17site:lt deltoidroute:ImDEMICk, [place] B 12 Injection, 1000 mcg On: 04-Apr-2015 Intent (J3420)By: Henri Ray Comments: B12lot:5310exp:11/22site: rt deltroute:RKpshj2ckFGHRBN, [place] B 12 Injection, 1000 mcg On: 25-Feb-2015 Intent (J3420)By: Henri Ray Comments: B12lot:3738479ssd:4/17site: rt delroute:IMdose:1mlDESHA B 12 Injection, 1000 mcg On: 28-Jan-2015 Intent (J3420)By: Leticia Pugh DO Comments: Lot:[id number]:06/22Dose:1mlRoute:IMSite:l armGiven By JETHRO signed Lexy DO Leticia B 12 Injection, 1000 mcg On: 01-Jan-2015 Intent (J3420)By: Leticia Pugh DO Comments: Lot:[id number]:06/22Dose:1mlRoute:IMSite:l armGiven By:GINETTEVIS signed Lexy DO, Leticia B 12 Injection, 1000 mcg On: 03-Dec-2014 Intent (J3420)By: Leticia Pugh DO Comments: lot: [id number]: 05/22site/route: L del/IMamt: 0.5mLVIS signed when applicableCRISTINO Casey Lexy DO, Leticia B 12 Injection, 1000 mcg On: 13-Sep-2014 Intent (J3420)By: Leticia Pugh DO Comments: Lot:[id number]:11.16Route:IMSite:R deltoidDose: 1 mLgiven by: CRISTINO Mathew DO, Kathleen B 12 Injection, 1000 mcg On: 05-Sep-2014 Intent (J3420)By: Leticia Pugh DO Comments: Lot:[id number]:3.16Route:IMSite:R deltoidDose: 1 mLgiven by: CRISTINO Mathew DO, Kathleen EKG (49931)By: Lexy ISAACS, On: 05-Sep-2014 Intent Leticia Reza [...] On: 17-May-2014 Intent (J3420)By: Visit, Nurse Comments: [id number] Dltd, IMMegan, LPN1ml MRI - Brain (IV [...] Hawthorne CNP On: 29-Jan-2014 Intent E EKG (11529)By: Lexy ISAACS, On: 30-Nov-2013 Intent Leticia Reza DO Comments: nsr no acute chg SPECIMEN HANDLING/TRANSPORT On: 20-Nov-2013 Intent (70486)By: Ciesa MARINE DRAFTER, Shey PNEUM VAC ADLT/IMUMNOSPR, On: 24-Nov-2012 Intent SBC/INTRM (15812)By: Lexy ISAACS, Comments: lot: [id number]: 09/24/13site/route: L deltoid/IMamt: 0.5mLVIS signed when applicableChelsea, COMPLIANCE COORDINATOR Leticia Lexy DO, Leticia Ultrasound - ThyroidBy: Lexy On: 24-Nov-2012 Intent DO, Leticia Lexy DO, Leticia IMMUNIZ ADMNIN, 1 VAC, SNGL/COMBO On: 24-Nov-2012 Intent (94063)By: Lexy DO, Leticia Lexy DO, Leticia Eprescribed prescriptions On: 24-Nov-2012 Intent (G8553)By: Carmela Chery EKG (46166)By: Yennifer Loya On: 15-Aug-2012 Intent ARAVIND Comments: nsr no acute chg Eprescribed prescriptions On: 15-Aug-2012 Intent (G8553)By: Yennifer Loya LPN Eprescribed prescriptions On: 16-May-2012 Intent (G8553)By: Lexy ISAACS, Leticia Lexy DO, Leticia Eprescribed prescriptions On: 15-Feb-2012 Intent (G8553)By: Yennifer Loya LPN EKG (44553)By: Lexy ISAACS, On: 24-Sep-2011 Intent Leticia Lexy DO, Leticia Comments: nsr no acute chg Radiology - Lumbar SpineBy: On: 24-Sep-2011 Intent Lexy DO, Leticia Lexy DO, Leticia SPECIMEN HANDLING/TRANSPORT On: 27-Jan-2011 Intent (04542)By: Enid Hart LPN VAC, SPLIT, >3 YEARS, On: 17-Dec-2010 Intent INTRAMUSC (57633)By: Lexy ISAACS, Comments: pt refused Leticia Lexy [...] Medicine - ThyroidBy: On: 27-Aug-2008 Intent Christoph MARINE DRAFTER, Shey CT - ChestBy: Patito VIDALES, Danika Baer On: 07-Aug-2008 Intent Comments: ATTENTION SUPRACLAAVICULAR AREA MRI - Shoulder(s) - RightBy: On: 31-May-2008 Intent Leticia Pugh DO, DO, Leticia Radiology - Shoulder - RightBy: On: 14-May-2008 Intent Lexy ISAACS, Leticia Pugh DO, Leticia EKG ([id number])By: Lexy ISAACS, On: 18-May-2007 Intent Leticia Reza [...] MCG/ML Injection Solution Ordered: 15-Feb-2017 Pending Ciesa MARINE DRAFTER, [facility] Vitamin B-12 1000 MCG/ML Injection Solution [...] MCG/ML Injection Solution Ordered: 25-Feb-2015 Pending [place], [facility] Vitamin B-12 1000 MCG/ML Injection Solution Ordered: 04-Apr-2015 Pending [place], [facility] Vitamin B-12 1000 MCG/ML Injection Solution Ordered: 05-Sep-2015 Pending Lexy DO, Leticia Lexy DO, Leticia Vitamin B-12 1000 MCG/ML Injection Solution Ordered: 20-Sep-2015 Pending Danika Caputo MD Vitamin B-12 1000 MCG/ML Injection Solution Ordered: 03-Oct-2015 Pending [place], [facility] Vitamin B-12 1000 MCG/ML Injection Solution Ordered: [...] Solution Ordered: 04-Sep-2016 Pending Lexy DO, Leticia Lxey DO, Leticia Vitamin B-12 1000 MCG/ML Injection [...] Advance Directives Name Dates Details Immunization Registry [place] - Effective on Effective: 17-Nov-201711/17/2017. Expiration date [...] Note for Urinary problems: [facility] at [facility] had urine negEncounter Diagnosis: BMI 32.0-32.9,adult, [...] for Tdap vaccination (Renamed from Need for kdymsthdjv-trebyvm-szbbhxbtp (Tdap) vaccine, adult/adolescent) End: 04-Apr-2015 15:25 Comprehensive [...]
--- OUTSIDE RECORDS SUMMARY | 2018-04-04 16:00 | XMS RPT_ITS | Continuity of Care Document ---
:1955 Author Organization [facility] Address [address] [facility] [address] [place] [address] Phone Care Team Providers Name Role Phone Leticia Pugh DO Unavailable Sangeetha GARRISON MD, Larry Powell Unavailable Jack Mayen MD Unavailable Jessica Cristobal Unavailable Sadiq Greer Unavailable Allie Caruso LPN Unavailable Unavailable Carmela Chery Unavailable Unavailable Princess Kitchen Unavailable Unavailable Unavailable [...] neg - pt will go back to business broker for hormonal reasonsnot low bs when ck in middle of nite-- depending what traditional business broker says maybe consider saliva testingwith recent abd [...] 388.30) Comments: [facility] ?? tinnitis clinic at [facility] >pt to look into - Status: Active [...] DO, DO, Kathleen Start : 19-Aug-2016 Active BIT WELDER Thyroid 30 MG Oral Tablet 1 (one) Tablet Tablet daily as directed for 0 days Quantity: 30 {Tablet} Refills: 5 Ordered:13-May-2017 Shari Pugh DO, DO, Kathleen Start : 04-Mar-2017 Active Pen [place] 31G X 6 MM Miscellaneous 1 Misc [...] : 17-Nov-2010 End : 17-Dec-2010 Inactive DRISDOL, 49000SDFG (Oral Capsule) 1 Capsule 2 xweek for [...] days Quantity: 560 {Milliliter} Refills: 0 Ordered:15-Mar-2015 Tanvi Hawthorne CNP Start : 15-Mar-2015 End : 29-Mar-2015 Inactive [...] 09-Oct-2011 End : 14-Oct-2011 Inactive Comments:twenty ZOSTAVAX, 75290ERT/0.65ML (Subcutaneous Solution Reconstituted) 1 For Solution x1 [...] 17-Nov-2010 End : 17-Nov-2010 Discontinued Comments:diarrhea ERGOCALCIFEROL, 53194HISY (Oral Capsule) 1 (one) Capsule q week [...] Quantity: 60 {Capsule} Refills: 0 Ordered:23-Oct-2014 Slarb ARAVINDMaia Start : 11-Apr-2014 End : 23-Oct-2014 Discontinued [...] of 05-Sep-2015 Muscle cramps (R25.2, 729.82) Comments: lytes ok on lab -- had surgery there-- [...] for Tdap vaccination (Renamed from Need for plxkmexiyc-xdwawkk-tktvuzadf (Tdap) vaccine, adult/adolescent) (Z23, V06.1) Status: Inactive [...] w/ Contrast Result: Comments: See Note; NOTES: [facility] Cardiovascular Services [address] [place] [address] Stress Test Echo W/Contrast MR#: [id number] Acct: [id number] Name: RADHA RAMOS Rep #: [id number] : 1955 62 From: Marcus Sánchez MD Primary Care: Leticia Pugh DO Status: REG CLI Ordering Dr: Larry Ngo BIT WELDER-C Sex: F C Stress Results Protocol: Stress [...] ventricular couplets / triplets during recovery [facility] good Stopped secndary to: dyspnea. EKG [...] Dictated: 12/14/17 1343 Date Transcribed: 12/14/17 1521 Chore Worker: Signed 10-Dec-2017 PT D/C Summary (1) Result: Comments: See Note; NOTES: [facility] [place] [address] [facility] [place] [address] Fax [facility]IT[facility] MR#: [id number] Acct: [id number] Name: RADHA RAMOS Rep #: [id number] [...] please feel free to call me at [phone]. T elton you for the referral of this patient. Sincerely, Morgan Barnes PT, <Electronically signed by Morgan Barnes PT, Cert. MDT, [facility]> 12/10/17 0758 CC: Leticia Pugh DO; Gloria KNAPP Presh JOSSELINE Signed 07-Dec-2017 Cardiology Visit Report Result: Comments: See Note; NOTES: [facility] [address] [place] [address] OFFICE VISIT Date of Service: 12/07/17 MR#: [id number] Acct: [id number] Name: RADHA RAMOS Rep #: [id number] : 1955 Provider: DEMETRICE Ngo Age/Sex: 62/F [place] [facility] Status: Signed HPI HPI Details: RADHA [...] 12/07/17 0958 <Electronically signed by Larry Ngo BIT WELDER-C> Date Larry Ngo BIT WELDER-C Cosigner Signature: Date (if applicable) CC: Leticia Pugh DO 07-Dec-2017 12 Lead EKG performed by [facility] Result: Comments: See Note; NOTES: [facility] [address] [place] [address] 12 Lead EKG performed by [facility] 12/07/17910 MR#: [id number] Acct: [id number] Name: RADHA RAMOS Rep #: [id number] : 1955 62 From: Larry Ngo NP-C Attending Dr: Larry Ngo BIT WELDER Status: DEP AMB Ordering Dr: Larry NgoC Date: 12/07/17 Location: 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 - Nonspecific T-abnormality. BNORMAL 12/07/17 1257 <Electronically signed by Larry Ngo BIT WELDER-C&amp ;#62; Date Larry Ngo BIT WELDERRogelioC CC: Leticia Pugh DO Date Dictated: 12/07/17910 Date Transcribed: 12/07/17910 Chore Worker: ISABEL Signed 07-Dec-2017 12 Lead EKG performed by [facility] Result: Comments: See Note; NOTES: [facility] [address] [place] [address] 12 Lead EKG performed by [facility] 12/07/17910 MR#: [id number] Acct: [id number] Name: RADHA RAMOS Rep #: [id number] : 1955 62 From: Larry SPEARC Attending Dr: Larry Ngo NP Status: DEP AMB Ordering Dr: Larry Ngo Date: 12/07/17 [place] [facility] [place]: F C Admitted: ORD ER #: [id number] BMS/12 Lead EKG performed by [facility] ECG Report Interpretation Sinus Rhythm Poor R wave progressionElectronically signed on 12/08/2017 at 17:44 by Marcus SánchezTwist Bioscience Software Version 8610 12/08/17 1746 Date Larry KNAPP CC: Leticia Pugh DO Date Dictated: 12/07/17910 Date Transcribed: 12/07/17910 Chore Worker: ISABEL Signed 28-Oct-2017 Inital Evaluation (1) - PT Result: Comments: See Note; NOTES: [facility] [address] [place], [place] [address] Fax REHABILITATION SERVICES INITIAL EVALUATION MR#: [id number] Acct: [id number] Name: RADHA RAMOS Rep #: [id number] [...] : No effect Lumbar Standing: Right Side [place] - Symptoms During Testing: Increases Lumbar Standing: Right Side [place] - Symptoms After Testing: No worse Lumbar Standing: Left Side [place] - Mechanical Resp onse: No effect Lumbar Standing: Left Side [place] - Symptoms During Testing: Increases Lumbar Standing: Left Side [place] - Symptoms After Testing: No worse Lumbar [...] to be FAXED BACK to us at [phone] for Medicare purposes. Please let me know [...] Downtime Report Result: Comments: See Note; NOTES: [facility] Medical Records Department [address] [place] [address] Downtime Report MR#: [id number] Acct: [id number] Name: RADHA RAMOS Rep #: [id number] : 1955 61 From: Herrera Hennessy PCP: Leticia Pugh DO Status: REG CLI This patient was seen during an EMR downtime August 09, 2017 - August 16, 2017. This patient may have a combination of paper and electronic documentation or all paper documentation. All documentation is viewable within the e-chart portion of [employer] for each patient visit. 21-Jul-2017 L/S Spine Min 4 Views Result: Comments: See Note; NOTES: [facility] Imaging Services [address] [place] [address] L/S Spine Min 4 Views MR#: [id number] Acct: [id number] Name: RADHA RAMOS Rep #: [id number] : 1955 F 61 From: Durga Peñaloza MD PCP: Leticia Pugh DO Status: REG CLI Study: L/S Spine Min 4 Views Date of Exam: 07/21/17 Exam# [id number] Ordering Dr: Joey Greer MD STUDY: X [...] , CC: Joey Greer; Leticia Pugh DO Chore Worker: Signed 25-Jun-2017 Cardiology Visit Report Result: Comments: See Note; NOTES: [facility] [address] [place] [address] OFFICE VISIT Date of Service: 06/24/17 MR#: [id number] Acct: [id number] Name: RADHA RAMOS Rep #: [id number] : 1955 Provider: Nimco Vasquez Age/Sex: 61/F Location: 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: No Accompanied by: none Is patient [...] More Views Result: Comments: See Note; NOTES: [facility] Imaging Services [address] [place] [address] S-I Jts 3 or More Views MR#: [id number] Acct: [id number] Name: RADHA RAMOS Rep #: [id number] : 1955 F 61 From: Frederick Pemberton MD PCP: Leticia Pugh DO Status: REG CLI Study: S-I Jts 3 or More Views Date of Exam: 05/21/17 Exam# [id number] Ordering Dr: Leticia Pugh DO STUD Y: [...] Service support , CC: Leticia Pugh DO Chore Worker: Signed 17-Mar-2017 Abdomen/Pelvis without Cont Result: Comments: See Note; NOTES: [facility] Imaging Services [address] [place] [address] Abdomen/Pelvis without Cont MR#: [id number] Acct: [id number] Name: RADHA RAMOS Rep #: [id number] : 1955 F 61 From: Rahel Salazar MD PCP: Leticia Pugh DO Status: REG CLI Study: Abdomen/Pelvis without Cont Date of Exam: 03/17/17 Exam# [id number] Ordering Dr: Casimiro Saravia MD STUDY: CT [...] at 16:04 EST Tel , Service support [phone], CC: Casimiro Saravia MD; Leticia Pugh DO Chore Worker: Signed 15-Feb-2017 Toe(s) Min 2 Views Result: Comments: See Note; NOTES: [facility] Imaging Services [address] [place] [address] Toe(s) Min 2 Views MR#: [id number] Acct: [id number] Name: RADHA RAMOS Rep #: [id number] : 1955 F 61 From: Juan Henriquez MD PCP: Leticia Pugh DO Status: REG CLI Study: Toe(s) Min 2 Views Date of Exam: 02/15/17 Exam# [id number] Ordering Dr: Tanvi Hawthorne STUDY: X-RAY LEFT [...] , Service support , CC: Tanvi Hawthorne BIT WELDER; Leticia Pugh DO Chore Worker: Signed 22-Dec-2016 Stress Test Echo w/o Contrast Result: Comments: See Note; NOTES: [facility] Cardiovascular Services [address] [place] [address] Stress Test Echo w/o Contrast MR#: [id number] Acct: [id number] Name: RADHA RAMOS Rep #: [id number] : 1955 61 From: Marcus Sánchez MD [...] Marcus Sánchez MD Performed By: Millie Torrez, RDWENDY, RVT 12/22/16 9344 Date Marcus Sánchez MD CC: Leticia Pugh DO; Marcus Sánchez MD Date Dictated: 12/22/16 1307 Date Transcribed: 12/22/16 170 Chore Worker: Signed 19-Nov-2016 12 Lead Electrocardiogram Result: Comments: See Note; NOTES: [facility] Cardiovascular Services [address] [place] [address] 12 Lead EKG 11/14/16156 MR#: [id number] Acct: [id number] Name: RADHA RAMOS Rep #: [id number] : 1955 61 From: Guevara Casanova MD [...] Confirmed by SAMANTHA LI MD, GUEVARA ([id number]), deputy editor in chief JUNE HENNESSY (57) on 11/16/2016 1:29:52 PM Referred By: GAL Confirmed By:GUEVARA CASANOVA MD 11/16/16 1329 Date Guevara Casanova MD CC: Leticia Pugh DO Date Dictated: 11/14/16156 Date Transcribed: 11/14/16156 Chore Worker: Signed 14-Nov-2016 Discharge Instruction Result: Comments: See Note; NOTES: [facility] Medical Records Department [address] [place] [address] Discharge Instruction 11/14/16 0345 MR#: [id number] Acct: [id number] Name: JEANMARIE RAMOS Rep #: [id number] : 1955 61 From: Roscoe Diaz MD [...] your Primary Care Provider. Call [facility] ([phone]) or report to the closest Emergency Room. Call 911 if necessary. 11/14/16 0637 <Electronically signed by Roscoe Diaz MD> Date Roscoe Maher Cosigner Signature (If Indicated): Date CC: Leticia Pugh DO 14-Nov-2016 Emergency Department Summary Result: Comments: See Note; NOTES: [facility] Medical Records Department [address] [place] [address] Emergency Department Summary 11/14/16 0343 MR#: [id number] Acct: [id number] Name: RADHA RAMOS Rep #: [id number] : 1955 61 From: Roscoe Diaz MD [...] your Primary Care Provider. Call [facility] ([phone]) or report to the closest Emergency Room. Call 911 if necessary. 11/14/16 0636 <Electronically kristin d by Roscoe Diaz MD> Date Roscoe Diaz MD Cosigner Signature (If Indicated): Date CC: Leticia Pugh 14-Nov-2016 Chest 1 View (Portable) Result: Comments: See Note; NOTES: [facility] Imaging Services [address] [place] [address] Chest 1 View (Portable) MR#: [id number] Acct: [id number] Name: RADHA RAMOS Rep #: [id number] : 1955 F 61 From: Nelson Coronado PCP: Leticia Pugh DO Status: REG ER Study: Chest 1 View (Portable) Date of Exam: 11/14/16 Exam# [id number] Ordering Dr: Roscoe Diaz MD STUDY: X- [...] CC: Leticia Pugh DO; Roscoe Diaz MD Chore Worker: Signed 13-Nov-2016 US Thyroid Biopsy Result: Comments: See Note; NOTES: [facility] Imaging Services [address] [place] [address] US Thyroid Biopsy MR#: [id number] Acct: [id number] Name: RADHA RAMOS Rep #: [id number] OB: 1955 F 61 From: Ross Saxena MD PCP: Leticia Pugh DO Status: REG CLI Study: US Thyroid Biopsy Date of Exam: 11/13/16 Exam# [id number] Ordering Dr: James Casey MD STUDY: THYROID [...] Ross Saxena MD at 12:24 EDT Tel [phone], Service support , CC: James Casey MD; Leticia Pugh DO Chore Worker: Signed 24-Sep-2016 Thyroid Result: Comments: See Note; NOTES: [facility] Imaging Services [address] [place] [address] [address] Thyroid MR#: [id number] Acct: [id number] Name: RADHA RAMOS Rep #: [id number] : 1955 F 60 From: Kalpana Sharp MD PCP: Leticia Pugh DO Status: REG CLI Study: Thyroid Date of Exam: 09/24/16 Exam# [id number] Ordering Dr: Lety Ball BIT WELDER-C STUDY: THYROID ULTRASOUND REASON FOR EXAM: Female, [...] , Service support , CC: Lety Ball BIT WELDER; Leticia Pugh DO Chore Worker: Signed 11-Aug-2016 SCREENING MAMM (CAD), BILAT Result: Comments: See Note; NOTES: [facility] Imaging Services [address] [place] [address] Ver[place] 4d SCREENING MAMM (CAD), BILAT MR#: [id number] Acct: [id number] Name: SHELDONRADHA Harsh Rep #: [id number] : 1955 F 60 From: Ross Saxena MD PCP: Leticia Pugh DO Status: [facility] Study: SCREENING MAMM (CAD), BILAT Date of Exam: 08/11/16 Exam# [id number] Ordering Dr: Zhane Martinez MD MAMMOGRAPHY - [...] delay biopsy of a clinically suspicious abnormality. [id number] Electronically Signed: Ross Saxena MD at 13:32 EDT Tel [phone], Service support , CC: Zhane Angeles MD; Leticia Pugh DO Chore Worker: Signed 17-Jul-2016 Upper GI w/BA Swallow Result: Comments: See Note; NOTES: [facility] Imaging Services [address] [place] [address] Verdana 4d Upper GI w/BA Swallow MR#: [id number] Acct: [id number] Name: RADHA RAMOS Rep #: [id number] : 1955 F 60 From: Coreen Mata MD PCP: Leticia Pugh DO Status: REG CLI Study: Upper GI w/BA Swallow Date of Exam: 07/17/16 Exam# [id number] Ordering Dr: James Garrido MD CLINICAL HISTORY: [...] , CC: Leticia Pugh DO; James Garrido Chore Worker: Signed 27-Feb-2016 Chest PA and Lateral Result: Comments: See Note; NOTES: [facility] Imaging Services [address] [place] [address] [address] Chest PA and Lateral MR#: [id number] Acct: [id number] Name: RADHA RAMOS Rep #: [id number] : 1955 F 60 From: Segun Loomis MD PCP: Leticia Pugh DO Status: REG CLI Study: Chest PA and Lateral Date of Exam: 02/27/16 Exam# [id number] Ordering Dr: Leticia Puhg DO STUD Y: X-RAY CHEST REASON FOR [...] at 15:10 EST Tel , Service support [phone], CC: Leticia Pugh DO Chore Worker: Signed 24-Feb-2016 Wound Heal Ctr Progress Note Result: Comments: See Note; NOTES: [facility] [address] [place] [address] [facility] Progress Note 02/24/16 1305 MR#: [id number] Acct: [id number] Name: Keyur RAMOS Rep #: [id number] : 1955 60 From: Ruslan Sesay MD [...] mellitus macular edema: D Lisa betes mellitus [facility] insulin use: with [place] use Laterality: L Chronic kidney disease stage: C Qualified Code(s): E11.9 - Type 2 diabetes mellitus without complications; 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 Code(s): E11.9 [...] Date Recorded By Document 02/24/16 12:35 CHRIS [id number] 02/24/16 12:38 CHRIS 02/24/16 12:35 Wound Center [...] Date Recorded By Document 02/24/16 12:38 CHRIS [id number] 02/24/16 12:39 CHRIS 02/24/16 12:38 Wound Center [...] after Cleansing No -Bioengineered Tissue No -Cetacaine [place] No -Bleedin g Controlled with NA -Treatment [...] Recorded Date Recorded By Document 02/24/16 12:38 [facility] 993 02/24/16 12:39 CHRIS 02/24/16 12:38 Wound [...] ter Cleansing No -Bioengineered Tissue No -Cetacaine [place] No -Bleeding Controlled with NA -Treatment Response [...] Progress Note Result: Comments: See Note; NOTES: [facility] [address] [place] [place] [address] W[facility] Heal C[facility] Progress Note 02/10/16 1325 MR#: [id number] Acct: [id number] Name: Keyur RAMOS Rep #: [id number] : 1955 60 From: Ruslan Sesay MD [...] mellitus macular edema: D Diab etes mellitus meterman insulin use: with meterman use Laterality: L Chronic kidney disease stage: C Qualified Code(s): E11.9 - Type 2 diabetes mellitus without complications; 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 Code(s): E11.9 [...] Date Recorded By Document 02/10/16 13:01 DL [id number] 02/10/16 13:07 DL 02/10/16 13:01 Wound Center Nurse 1 [Ulcer Assessment] 1-abdomen -Current Size (cm) - Length 0 -Current Size (cm) - Width 0 -Current Size (cm) - Depth 0 -Total Square Cm 0 -Photo Take n Yes -Exudate Amt None Present (0 %) -Wound Margin Flat AND Intact -Granulation Amt Large (67-100%) -Granulation Quality [place] -Necrosis Amt None Present (0 %) -Structure [...] Date Recorded By Document 02/10/16 13:15 MW [id number] 02/10/16 13:17 MW 02/10/16 13:15 Wound Center Nurse 2 [P rocedure/Treatment] -Time 13:16 -Correct Patient Yes -Correct Side, Site, Position Yes -Correct Procedure Yes -Procedure Performed No -Wound/Ulcer Outcome Not Healed -Ulcer Cleansing Not Cleansed -Foul Odor after Cleansing No -Bioengineered Tissue No -Cetacaine [place] No -Topical Lidocaine (%) 4 -Lidocaine (ml) [...] Date Recorded By Document 02/10/16 13:15 MW [id number] 02/10/16 13:17 MW 02/10/16 13:15 Wound Center Nurse 2 1-abdomen -Time 13:16 - Correct Patient Yes -Correct Side, Site, Posi tion Yes -Correct Procedure Yes -Procedure Performed No -Wound/Ulcer Outcome Not Healed -Ulcer Cleansing Not Cleansed -Foul Odor after Cleansing No - Bioengineered Tissue No -Cetacaine [place] No -Topical Lidocaine (%) 4 -Lidocaine (ml) [...] Progress Note Result: Comments: See Note; NOTES: [facility] Wound [facility]aling Center [facility] [place] [address] W[facility]al Ctr Progress Note 02/03/16 1336 MR#: [id number] Acct: [id number] Name: Keyur RAMOS Rep #: [id number] : 1955 60 From: Ruslan Sesay MD [...] Diabetes mellitus macular edema: D Diabetes mellitus meterman insulin use: with [facility] use Latera lity: L Chronic kidney disease [...] Recorded Date Recorded By Document 13:02 DL [id number] 02/03/16 13:09 DL 02/03/16 13:02 Wound Center Nurse 1 [Ulcer Assessment] 1-abdomen -Current Size (cm) - Length 0.5 -Current Size (cm) - Width 2.4 -Current Size (cm) - Depth 0.3 -Tota l Square Cm 1.20 -Photo Taken No -Exudate Amt Small (1-33%) -Exudate Type Serosanguineous -Wound Margin Distinct, Outline Attached -Granulation Amt Large (67-100%) - Granulation Quality [place] -Necrosis Am t Small (1-33%) -Necrotic Tissue [...] Date Recorded By Document 02/03/16 13:28 CHRIS [id number] 02/03/16 13:32 CHRIS 02/03/16 13:28 Wound Center [...] Cleansing No -Bioengi neered Tissue No -Cetacaine [place] No -Topical Lidocaine (%) 4 -Lidocaine (ml) [...] Date Recorded By Document 02/03/16 13:28 CHRIS [id number] 02/03/16 13:32 JS 02/03/16 13:28 Wound Center [...] after Cleansing No -Bioengineered Tissue No -Cetacaine [place] No -Topical Lidocaine (%) 4 -Lidocaine (ml) [...] Progress Note Result: Comments: See Note; NOTES: [facility] W[facility] [address] [place] [address] [facility] Progress Note 01/27/16 1333 MR#: [id number] Acct: [id number] Name: Keyur RAMOS Rep #: [id number] : 1955 60 From: Ruslan Sesay MD [...] Diabetes mellitus macular edema: D Diabetes mellitus meterman insulin use: with [facility] use Laterali ty: L Chronic kidney disease [...] Recorded Date Recorded By Document 01/27/16 12:44 [id number] 01/27/16 12:54 01/27/16 12:44 Wound Center Nurse [...] Date Recorded By Document 01/27/16 13:23 MW [id number] 01/27/16 13:31 MW 01/27/16 13:23 Wound Center Nurse 2 [Procedure/Treatment] 1-abdomen -Time 13 :24 -Correct Patient Yes -Correct Side, Site, Position Yes -Correct Procedure Yes -Procedure Performed No -Wound/Ulcer Outcome Not Healed -Ulcer Cleansing Rinsed/ Irrigated with Saline -Foul Odor after Cleansing No -Bioengineered Tissue No -Cetacaine [place] No -Bleeding Controlled with NA [See Physician [...] Date Recorded By Document 01/27/16 13:23 MW [id number] 01/27/16 1 3:31 MW 01/27/16 13:23 Wound Center Nurse 2 1-abdomen -Time 13:24 -Correct Patient Yes -Correct Side, Site, Position Yes -Correct Procedure Yes -Procedure Performed No -Wound/Ulcer Outcome Not Healed - Ulcer Cleansing Rinsed/ Irrigated with Saline -Foul Odor after Cleansing No -Bioengineered Tissue No -Cetacaine [place] No -Bleeding Controlled with NA No debridement [...] Progress Note Result: Comments: See Note; NOTES: [facility] [address] [place] [address] [facility]al C[facility] Progress Note 01/20/16 1521 MR#: [id number] Acct: [id number] Name: RADHA RAMOS Rep #: [id number] : 1955 60 From: Ruslan Sesay MD [...] Diabetes mellitus complication status: without complication [facility] insulin use: with meterman use Qualifier Code : (E11.9) Type 2 [...] Record ed By Document 01/20/16 14:33 DL [id number] 01/20/16 14:36 DL 01/20/16 14:33 Wound Center [...] Recorded Date Recorded By Document 01/20/16 15:06 [id number] 01/20/16 15:07 JS 01/20/16 15:06 Wound Center Nurse 2 [Procedure/Treatment] -Time 15:06 -Correct Patient Yes -Correct Side, Site, Position Yes -Correct Procedure Yes -Procedure Performed No -Wound/Ulcer Outcome Not Healed -Ulcer Cleansing Rinsed/ Irrigated with Saline -Foul Odor after Cleansing No -Bioengineered Tissue No - Cetacaine [place] No [See Physician Procedure note for Specifics] [...] Recorded Date Recorded By Document 01/20/16 15:06 [id number] 01/20/16 15:07 JS 01/20/16 15:06 Wound Center Nurse 2 1-abdomen -Time 15:06 - Correct Patient Yes -Correct Side, Site, Po sition Yes -Correct Procedure Yes -Procedure Performed No -Wound/Ulcer Outcome Not Healed -Ulcer Cleansing Rinsed/ Irrigated with Saline -Foul Odor after Cleansing No -Bioengineered Tissue No -Cetacaine [place] No No debridement was completed today Assessment/Plan [...] Progress Note Result: Comments: See Note; NOTES: [facility] [address] [place] [address] [facility] Progress Note 01/06/16 1307 MR#: [id number] Acct: [id number] Name: RADHA RAMOS Rep #: [id number] : 1955 60 From: Ruslan Sesay MD PCP: Leticia Pugh DO Status: REG RCR Y Location: WC (1) Abscess of abdominal wall Status: Acute Current Visit: Yes Code: L02.2 11 (2) Diabetes mellitus Status: Chronic Current Visit: Yes Qualifiers: Diabetes mellitus type: type 2 Diabetes mellitus complication status: with skin complications Diabetes mellitus complication deta il: with other skin complication Diabetes mellitus [facility] insulin use: with [facility] use Qualifier Code: (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 Progress of Wound: [...] Date Recorded By Document 01/06/16 12:42 TM [id number] 01/06/16 12:51 TM 01/06/16 12:42 Wound Center [...] Date Recorded By Document 01/06/16 12:54 DV [id number] 01/06/16 13:00 DV 01/06/16 12:54 Wound Center Nurse 2 [Procedure/Treatment] -Time 12:59 -Correct Patient Yes -Correct Side, Site, Position Yes -Correct Procedure Yes -Procedure Performed No -Wound/Ulcer Outcome Not Healed -Ulcer Cleansing Rinsed/ Irrigated with Saline -Foul Odor after Cleansing No -Bioengineered Tissue No -Cetacaine [place] No -Bleeding Controlled with NA -Treatment Response [...] Date Recorded By Document 01/06/16 12:54 DV [id number] 01/06/16 13:00 DV 01/06/16 12:54 Wound Center Nurse 2 1-abdomen -Time 12:59 -Correct Patient Yes -Correct Side, Site, Position Yes -Tamar ect Procedure Yes -Procedure Performed No -Wound/Ulcer Outcome Not Healed -Ulcer Cleansing Rinsed/ Irrigated with Saline -Foul Odor after Cleansing No - Bioengineered Tissue No -Cetacaine [place] No -Bleed ing Controlled with NA -Treatment Response Procedure Tolerated Well No debridement was completed today Assessment/Plan Active Problems Abscess of abdominal wall (Acute) Wound, open, abdominal wall, anterior (Acute) Diabetes mellitus (Chronic) Assessment: This is a 60-year-old diabetic female who is in her normal state of health until approximately 3 weeks prior to presentation, at [facility] time she developed an abscess [...] Progress Note Result: Comments: See Note; NOTES: [facility] W[facility]aling Center [address] [place] [address] Wound Heal Ctr Progress Note 12/30/15 1625 MR#: [id number] Acct: [id number] Name: RADHA RAMOS Rep #: [id number] : 1955 60 From: Ruslan Sesay MD PCP: Leticia Pugh DO Status: REG RCR Y Location: WC (1) Abscess of abdominal wall Status: Acute Current Visit: Yes Code: L02.2 11 (2) Diabetes mellitus Status: Chronic Current Visit: Yes Qualifiers: Diabetes mellitus type: type 2 Diabetes mellitus complication status: with skin complications Diabetes mellitus complication deta il: with other skin complication Diabetes mellitus [facility] insulin use: with [facility] use Qualifier Code: (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 The patient [...] Date Recorded By Document 6 14:19 TM [id number] 12/30/15 14:37 TM 12/30/15 14:19 Wound Center [...] Thickened -Granulation Amt Small (1-33%) -Granulation Quality [place] -Slough/Fibrin Yes -Necro sis Amt Small [...] Recorded Date Recorded By Document 12/30/15 16:21 [id number] 12/30/15 16:22 12/30/15 16:21 Wound Center Nurse 2 [P rocedure/Treatment] 1-abdomen -Time 16:21 -Correct Patient Yes -Correct Side, Site, Position Yes -Correct Procedure Yes -Procedure Performed No -Wound/Ulcer Outcome Not Healed -Ulcer Cleansing Rinsed/ I rrigated with Saline -Foul Odor after Cleansing No -Bioengineered Tissue No -Cetacaine [place] No -Bleeding Controlled with NA -Treatment Response [...] Recorded Date Recorded By Document 12/30/15 16:21 [id number] 12/30/15 16:22 12/30/15 16:21 Wound Center Nurse 2 1-abdomen -Time 16:21 -Correct Patient Yes -Correct Side, Site, Position Yes -Correct Procedure Yes -Procedure Performed No -Wound/Ulcer Outcome Not Healed -Ulcer Cleansing Rinsed/ Irrigated with Saline -Foul Odor after Cleansing No -Bioengi neered Tissue No -Cetacaine [place] No -Bleeding Controlled with NA -Treatment Response [...] AND Physical Result: Comments: See Note; NOTES: [facility] W[facility] [address] [place] [address] Wound Ctr History AND Physical 12/23/15 1708 MR#: [id number] Acct: [id number] Name: RADHA TERRY Rep #: [id number] : 1955 60 From: Ruslan Sesay MD PCP: Leticia Pugh DO Status: REG RCR Y Location: WC (1) Abscess of abdominal wall Status: Acute Current Visit: Yes Code: L02 .211 (2) Diabetes mellitus Status: Chronic Current Visit: Yes Qualifiers: Diabetes mellitus type: type 2 Diabetes mellitus complication status: with skin complications Diabetes mellitus complication de tail: with other skin complication Diabetes mellitus [facility] insulin use: with [facility] use Qualifier Code: (E11.628) Type 2 diabetes [...] tumor. 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 [employer] Lives: Spouse/ Significant Other Smoking Status: Never [...] Recorded Date Recorded By Document 12/23/15 15:16 [id number] 12/23/15 15:38 MAURILIO 12/23/15 15:16 Wound Center Nurse 1 [Ulcer [...] Recorded Date Recorded By Document 12/23/15 16:42 [id number] 12/23/15 16:44 12/23/15 16: 42 Wound Center Nurse 2 [Procedure/Treatment] 1-abdomen -Time 16:42 -Correct Patient Yes -Correct Side, Site, Position Yes -Correct Procedure Yes -Wound/Ulcer Outcome Not Healed -Ulcer Cleansing Rinsed / Irrigated with Saline -Foul Odor after Cleansing No -Bioengineered Tissue No -Cetacaine [place] No -Bleeding Controlled with NA -Treatment Response [...] Recorded Date Recorded By Document 12/23/15 16:42 [id number] 12/23/15 16:44 12/23/15 16:42 Wound Center Nurse 2 1-abdomen -Time 16:42 -Correct Patie nt Yes -Correct Side, Site, Position Yes -Correct Procedure Yes -Wound/Ulcer Outcome Not Healed -Ulcer Cleansing Rinsed/ Irrigated with Saline -Foul Odor after Cleansing No -Bioengineered Tissue No -Cet acaine [place] No -Bleeding Controlled with NA -Treatment Response Procedure Tolerated Well No debridement was completed today Assessment/Plan Active Problems Abscess of abdominal wall (Acute) Wound, open, abdominal wall, anterior (Acute) Diabetes mellitus (Chronic) Hyperlipidemia (Chronic) Mitral valve prolapse (Chronic) Assessment: This is a 60-year-old diabetic female who is in her [facility] state of health until approximately 3 weeks [...] WITH Contrast Result: Comments: See Note; NOTES: [facility] Imaging Services [address] [place] [address] Verdana 4d Abdomen/Pelvis WITH Contrast MR#: [id number] Acct: [id number] Name: MILO RAMOS Rep #: [id number] : 1955 F 60 From: Jack Hernandez MD PCP: Leticia Pugh DO Status: REG CLI Study: Abdomen/Pelvis WITH Contrast Date of Exam: 12/12/15 Exam# [id number] Ordering Dr: Leticia Pugh DO STUDY: CT [...] Service support , CC: Leticia Pugh DO Chore Worker: Signed 25-Oct-2015 Chest WITH Contrast Result: Comments: See Note; NOTES: [facility] Imaging Services [address] [place] [address] Verdana 4d Chest WITH Contrast MR#: [id number] Acct: [id number] Name: RADHA RAMOS Rep #: [id number] : 1955 F 60 From: Emerson Centeno MD PCP: Leticia Pugh DO Status: REG CLI Study: Chest WITH Contrast Date of Exam: 10/25/15 Exam# [id number] Ordering Dr: Marcus Sánchez MD [facility] DY: CT CHEST WITH CONTRAST REASON [...] MD at 21:00 EDT , Service support [phone], CC: Leticia Pugh DO; Marcus Sánchez MD Chore Worker: Signed 05-Sep-2015 ELECTROCARDIOGRAM, COMPLETE (ECG) ([id number]) Comments: nsr no acute chg Result: [MEASUREMENTS ANALYSIS] Date of Test: 09/05/2015 14:41:33; Heart Rate: 82; VT Interval: 152; QRS: 100; QT Interval: 366; Corrected QT Interval (QTc): 404; P Wave Gravel Switch: 62; QRS Wave Gravel Switch: 42; T Wave Gravel Switch : 23; Blood Pressure: 122/82 [ECG DIAGNOSTIC STATEMENTS] Date of Test: 09/05/2015 14:41:33; Summary: Sinus Rhythm WITHIN NORMAL LIMITS 08-Aug-2015 Bilat Scrn Digital AND CAD Result: Comments: See Note; NOTES: [facility] Imaging Services [address] [place] [address] Verdana 4d Bilat Scrn Digital AND CAD MR#: [id number] Acct: [id number] Name: RADHA RAMOS Rep #: [id number] : 1955 F 59 From: Ross Saxena MD PCP: Leticia Pugh DO Status: REG CLI Study: Bilat Scrn Digital AND CAD Date of Exam: 08/08/15 Exam# [id number] [facility]: Zhane Angeles MD MAMMOGRAPHY - [...] will be sent to the patient by [facility] within 30 days. Approximately 10% of breast cancers are not detected by mammography. A normal mammogram should not delay biopsy of a clinically suspicious abnormality. [id number] Electron ically Signed: Ross Saxena MD at 10:53 EDT Tel [phone], Service support [phone], CC: Zhane Angeles MD; Leticia Pugh DO Chore Worker: Signed 15-Mar-2015 ELECTROCARDIOGRAM, COMPLETE (ECG) ([id number]) Result: [MEASUREMENTS ANALYSIS] Date of Test: 03/15/2015 11:59:12; Heart Rate: 78; VT Interval: 126; QRS: 100; QT Interval: 380; Corrected QT Interval (QTc): 411; P Wave Gravel Switch: 39; QRS Wave Gravel Switch: 44; T Wave Gravel Switch : 27; Blood Pressure: 126/82 [ECG DIAGNOSTIC STATEMENTS] Date of Test: 03/15/2015 11:59:12; Summary: Sinus Rhythm WITHIN NORMAL LIMITS 13-Feb-2015 PT D/C of Non Returning Pt. Result: Comments: See Note; NOTES: [facility] [place] [address] Fax REHABILITATION SE RVICES DISCHARGE SUMMARY MR#: [id number] Acct: [id number] Name: RADHA RAMOS Rep #: [id number] : 1955 59 From: Morgan Barnes Referring DrDomenic: Joey Kebede DPM Status: PRE RCR Eval Date: Discharge Date: HP - Discharge Summary - Patient Information RAHDA RAMOS was seen in my office for [...] <Electronically signed by Morgan Barnes > 02/13/15 1761 CC: Joey Kebede DPM; Leticia Pugh DO Signed 05-Dec-2014 Inital Evaluation - PT Result: Comments: See Note; NOTES: [facility] [place] [id number] Fax REHABILITATION SERVICES INITIAL EVALUATION MR#: [id number] Acct: [id number] Name: RADHA RAMOS Rep #: [id number] : 1955 59 From: Morgan Barnes Referring Dr.: Joey Kebede DPM Status: REG R Insurance: [employer] [facility] Date: DATE OF SERVICE: 11/29/2014 PHYSICIAN: [...] cuff repair. VOCATION: The patient works at [employer]. OBJECTIVE: OBSERVATION OF POSTURE: The patient has [...] exercises. Morgan Barnes, PT T: NTS JOB: [id number] <Electronically signed by Morgan Barnes > 12/05/14 1319 CC: Signed For Medicare only, by signing this I certify the plan of care. Physicians Signature Date 28-Sep-2014 Discharge Instruction Result: Comments: See Note; NOTES: [facility] Medical Records Department [address] [place] [address] Instructions for Home/Discharge Instructions 09/28/14 1826 MR#: [id number] ct: [id number] Name: RADHA RAMOS Rep #: [id number] : 1955 58 From: Joey Kebede DPM PCP: Leticia Pugh DO Status: REG [facility] Discharge Diet: Light diet - advance as [...] 3 Views Result: Comments: See Note; NOTES: [facility] Imaging Services [address] [place] [address] Radiology Report MR#: [id number] Acct: [id number] Name: RADHA RAMOS Harsh Rep #: [id number] : 1955 F 58 From: Rohit Zamarripa MD PCP: Leticia Pugh DO Status: [facility] Study: Foot min 3 Views Date of Exam: 09/28/14 Exam# [id number] Ordering Dr: Joey Kebede DPM STUDY: X-RAY [...] FACR at 20:28 EDT , Service support [phone], RAD/Foot min 3 Views IMPRESSION: Status post osteotomy of the posterior pr ocess of the calcaneus and stabilization with a cannulated screw. Alignment is anatomical and no immediate post surgical complications are seen. Cast is in place. Electronically Signed: Rohit laird MD, FACR at 20:28 EDT , Service support [phone], CC: Joey Kebede DPM; Leticia Pugh DO Chore Worker: Signed 28-Sep-2014 Calcaneus min 2 Views Result: Comments: See Note; NOTES: [facility] Imaging Services [address] [place] [address] Radiology Report MR#: [id number] Acct: [id number] Name: RADHA RAMOS Rep #: [id number] : 1955 F 58 From: Rohit Zamarripa MD PCP: Leticia Pugh DO Status: [facility] Study: Calcaneus min 2 Views Date of Exam: 09/28/14 Exam# [id number] Ordering Dr: Joey Kebede DPM Mindy MURPHY: [...] FACR at 20:32 EDT , Service support [phone], RAD/Calcaneus min 2 Views IMPRESSION: Status Post osteotomy of the posterior process of the calcaneus and stabilization with a cannulated screw. Alignment is anatomical and no immediate post surgical complications are seen. Electronically Signed: Rohit Zamarripa MD, FACR at 20:32 EDT , Service support [phone], CC: Joey Kebede DPM; Leticia Pguh DO Chore Worker: Signed 27-Aug-2014 Lower Ext Joint Only (Routine) Result: Comments: See Note; NOTES: [facility] Imaging Services [address] [facility] [address] MRI Report MR#: [id number] Acct: [id number] Name: RADHA RAMOS Rep #: [id number] : 1955 F 58 From: Rohit Zamarripa MD PCP: Leticia Pugh DO Status: REG CLI Study: Lower Ext Joint Only (Routine) Date of Exam: 08/27/14 Exam# [id number] Ordering Dr: Joey Kebede DPM STUDY: MRI [...] FACR at 17:00 EDT , Service support [phone], Fax CC: Joey Kebede MD; Leticia Pugh DO Chore Worker: Signed 27-Aug-2014 Lower Ext Joint Only (Routine) Result: Comments: See Note; NOTES: [facility] Imaging Services [address] [place] [address] MRI Report MR#: [id number] Acct: [id number] Name: RADHA RAMOS Rep #: [id number] : 1955 F 58 From: Rohit Zamarripa MD PCP: Leticia Pugh DO Status: REG CLI Study: Lower Ext Joint Only (Routine) Date of Exam: 08/27/14 Exam# [id number] Ordering Dr: Joey Kebede DPM ADDENDUM by [...] FACR at 14:08 EDT , Service support [phone], 09/17/14 1408 Date cc: Joey JOHNSONM; Leticia Lexy DO * Signed STUDY: MRI [...] at 17:00 EDT , Service suppor t [phone], CC: Joey Kebede DPM; Leticia Pugh DO Chore Worker: Signed 03-Aug-2014 Bilat Scrn Digital AND CAD Result: Comments: See Note; NOTES: [facility] Imaging Services [address] [place] [address] Breast Imaging Report MR#: [id number] Acct: [id number] Name: RADHA RAMOS Rep #: [id number] : 1955 F 58 From: Ross Saxena MD PCP: Leticia Pugh DO Status: REG CLI Study: Faviola Vincent Digital AND CAD Date of Exam: 08/03/14 Exam# [id number] Ordering Dr: Lelo Angeles MD MAMMOGRAPHY - [...] be sent to the patient by the [facility] within 30 days. Approximately 10% of breast cancers are not detected by mammography. A normal mammogram should not delay biopsy of a clinically suspicious abnormality. Electronically Kristin d: Ross Saxena MD at 13:16 EDT Tel [phone], Service support [phone], CC: Zhane Angeels MD; Leticia Pugh DO Chore Worker: Signed 03-Aug-2014 Bilat Scrn Digital AND CAD Result: Comments: See Note; NOTES: [facility] Imaging Services [address] [place] [address] Breast Imaging Report MR#: [id number] Acct: [id number] Name: RADHA RAMOS Rep #: [id number] : 1955 F 58 From: Ross Saxena MD PCP: Leticia Pugh DO Status: REG CLI Study: Bilat Scrpatricia Digital AND CAD Date of Exam: 08/03/14 Exam# [id number] Ordering Dr: Lelo Angeles MD MAMMOGRAPHY - [...] be sent to the patient by the [facility] within 30 days. Approximately 10% of breast cancers are not detected by mammography. A normal mammogram should not delay biopsy of a clinically suspicious abnormality. Electronically Kristin d: Ross Saxena MD at 13:16 EDT Tel [phone], Service support [phone], CC: Zhane Angeles MD; Leticia Pugh DO Chore Worker: Signed 03-Aug-2014 Bilat Scrn Digital AND CAD Result: Comments: See Note; NOTES: [facility] Imaging Services [address] [place] [address] Breast Imaging Report MR#: [id number] Acct: [id number] Name: RADHA RAMOS Rep #: [id number] : 1955 F 58 From: Ross Saxena MD PCP: Leticia Pugh DO Status: REG CLI Study: Bilat Scrn Digital AND CAD Date of Exam: 08/03/14 Exam# [id number] Ordering Dr: Lelo Angeles MD MAMMOGRAPHY - [...] [facility]. Approximately 10% of breast cancers are not detected by mammography. A normal mammogram should not delay biopsy of a clinically suspicious abnormality. Electronically Kristin d: Ross Saxena MD at 13:16 EDT Tel [phone], Service support [phone], CC: Zhane Angeles MD; Leticia Pugh DO Chore Worker: Signed 05-Jul-2014 PT Discharge Summary Result: Comments: See Note; NOTES: [facility] [address] [place] [address]. [address] [place] [address] Fax REHABILITATION SERVICES DISCHARGE SUMMARY MR#: [id number] Acct: [id number] Name: RADHA RAMOS Rep #: [id number] : 1955 58 From: Morgan Barnes Referring [...] Sincerely, Morgan Barnes, PT T: ADIS JOB: [id number] <Electronically signed by Morgan Barnes > 07/05/14 1429 CC: Signed 18-May-2014 Brain W/WO Contrast Result: Comments: See Note; NOTES: [facility] Imaging Services [address] [place] [address] MRI Report MR#: [id number] Acct: [id number] Name: RADHA RAMOS Rep #: [id number] D OB: 1955 F 58 From: Yolanda Vitale MD PCP: Leticia Pugh DO Status: REG CLI Study: Brain W/WO Contrast Date of Exam: 05/18/14 Exam# [id number] Ordering Dr: Leticia Pugh DO STUDY: MRI [...] MD at 17:10 EDT , Service support [phone], CC: Leticia Pugh DO Chore Worker: Signed 18-May-2014 Spine Cervical (Routine) Result: Comments: See Note; NOTES: [facility] Imaging Services [address] [place] [address] MRI Report MR#: [id number] Acct: [id number] Name: RADHA RAMOS Harsh Rep #: [id number] D OB: 1955 F 58 From: Yolanda Vitale MD PCP: Leticia Pugh DO Status: REG CLI Study: Spine Cervical (Routine) Date of Exam: 05/18/14 Exam# [id number] Ordering Dr: Leticia Pugh DO STUDY: MRI [...] at 22 :30 EDT , Service support [phone], CC: Leticia Pugh DO Chore Worker: Signed 20-Apr-2014 Inital Evaluation - PT Result: Comments: See Note; NOTES: [facility] [address] [place] [address] Fax REHABILITATION SERVICES INITIAL EVALUATION MR#: [id number] Acct: [id number] Name: RADHA RAMOS Rep #: [id number] : 1955 58 From: Morgan Barnes Referring : Leticia Pugh DO Status: REG R Insurance: A [employer] [facility] Date: DATE OF SERVICE: 04/17/2014 REFERRING [...] therapy. Most recently, she had been trying medical care evaluation specialist, which consist ed of manipulations with some [...] pain. SOCIAL HISTORY: . VOCATION: Works at [employer]. Goals to get rid of pain. OBJECTIVE: [...] for deltoid, biceps, triceps, wrist flexor, extensors. Branch Library Clerk strength 40 pressure using dynamometer behavioral assistant jamie. Negative ANR. MOVEMENT LOSS: Protrusion minimal loss with pain end range; flexion min-to- moderate loss; retraction, extension minimal loss; side bending to the right minimal loss; side bend to left is ojg-zn-ojczuuta loss; rotation to the right minimal loss; rotation to the left is yts-dy-ppsxfwef loss. Repeated motion, right neck pain. Protrusion, [...] education. Morgan Barnes, PT T: NTS JOB: [id number] <Electronically signed by Morgan Barnes > 04/20/14 0856 CC: Signed For Medicare only, by signing this I certify the plan of care. Physicians Signature Date 11-Apr-2014 Cerv Spine 4 or 5 Views Result: Comments: See Note; NOTES: [facility] Imaging Services [address] [facility] [address] Radiology Report MR#: [id number] Acct: [id number] Name: RADHA RAMOS Rep #: [id number] : 1955 F 58 From: Sofia Gamble MD PCP: Leticia Pugh DO Status: REG CLI Study: Cerv Spine 4 or 5 Views Date of Exam: 04/11/14 Exam# [id number] Ordering Dr: Leticia Pugh: X-RAY - CERVICAL [...] MD at 16:35 EST , Service support [phone], RAD/Cerv Spine 4 or 5 Vie ws IMPRESSION: Normal x-ray examination of the visualized cervical spine. Electronically Signed: Sofia Gamble MD at 16:35 EST , Service support [phone], CC: Leticia Pugh DO Chore Worker: Signed 30-Mar-2014 Esophagus Only Result: Comments: See Note; NOTES: [facility] Imaging Services [address] [place] [address] Radiology Report MR#: [id number] Acct: [id number] Name: RADHA RAMOS Rep #: [id number] : 1955 F 58 From: Ross Saxena MD PCP: Leticia Pugh DO Status: REG CLI Study: Esophagus Only Date of Exam: 03/30/14 Exam# [id number] Ordering Dr: James Garrido MD STUDY: X-RAY [...] Ross Saxena MD at 9:25 EST Tel [phone], Service support [phone], Fax CC: Leticia Pugh DO; James Garrido Chore Worker: Signed 08-Feb-2014 Stress Test Echo w/o Contrast Result: Comments: See Note; NOTES: [facility] Cardiovascular Services [address] [place] [address] STRESS TEST REPORT 02/02/14 1143 MR#: [id number] Acct: [id number] Name: RADHA RAMOS Rep #: [id number] : 1955 58 From: Guevara Casanova MD [...] Dictate d: 02/02/14 1143 Date Transcribed: 02/05/14901 Chore Worker: Signed 08-Feb-2014 Echocardiogram Complete Result: Comments: See Note; NOTES: [facility] Cardiovascular Services [address] [place] [address] STRESS TEST REPORT 02/02/14 1143 MR#: [id number] Acct: [id number] Name: RADHA RAMOS Rep #: [id number] : 1955 58 From: Guevara Casanova MD [...] Date Dictated: 02/02/14 1143 Date Transcribed: 02/05/1436 Chore Worker: Signed 06-Feb-2014 Upper GI Series Only Result: Comments: See Note; NOTES: [facility] Imaging Services [address] [place] [address] Radiology Report MR#: [id number] Acct: [id number] Name: RADHA RAMOS Rep #: [id number] : 1955 F 58 From: Segun Loomis MD PCP: Leticia Pugh DO Status: REG CLI Study: Upper GI Series Only Date of Exam: 02/06/14 Exam# [id number] Ordering Dr: Tanvi Hawthorne CLINICAL HISTOR Y: [...] MD at 10:55 EST , Service support [phone], RAD/Upper GI Series Only IMPRESSION: Patient shows [...] 2013 at 10:55 EST , Service support [phone], CC: Tanvi Hawthorne; Leticia Pugh DO Chore Worker: Signed 05-Feb-2014 Stress Test Echo w/o Contrast Result: Comments: See Note; NOTES: [facility] Cardiovascular Services [address] [place] [address] STRESS TEST REPORT 02/02/14 1143 MR#: [id number] Acct: [id number] Name: RADHA RAMOS Rep #: [id number] : 1955 58 From: Guevara Casanova MD [...] Dictated: 02/02/14 1143 Date Transcribed: 02/05/14 0836 Chore Worker: Signed 02-Feb-2014 Chest PA and Lateral Result: Comments: See Note; NOTES: [facility] Imaging Services [address] [place] [address] Radiology Report MR#: [id number] Acct: [id number] Name: RADHA RAMOS Rep #: [id number] : 1955 F 58 From: Martell Price MD PCP: Leticia Pugh DO Status: REG CLI Study: Chest PA and Lateral Date of Exam: 02/02/14 Exam# [id number] Ordering Dr: Tanvi Hawthorne STUDY: X-RAY CHEST [...] at 14:11 EST Tel , Service support [phone], RAD/Chest PA and Lateral IMPRESSION: Normal x-ray examination of the chest. Electronically Signed: Martell Price MD 20/01/28 at 14:11 EST , Service support [phone], CC: Tanvi Christoph; Leticia Pugh DO Chore Worker: Signed 29-Jan-2014 ELECTROCARDIOGRAM, COMPLETE (ECG) ([id number]) Comments: sinus rhythm, similar to 11-19 Result: [MEASUREMENTS ANALYSIS] Date of Test: 01/29/2014 13:47:19; Heart Rate: 86; VT Interval: 136; QRS: 100; QT Interval: 368; Corrected QT Interval (QTc): 413; P Wave Gravel Switch: 66; QRS Wave Gravel Switch: 41; T Wave Gravel Switch : -1; Blood Pressure: 132/74 [ECG DIAGNOSTIC STATEMENTS] Date of Test: 01/29/2014 13:47:19; Summary: Sinus Rhythm WITHIN NORMAL LIMITS 02-Aug-2013 Bilat Scrn Digital & CAD Result: Comments: See Note; NOTES: [facility] Imaging Services [address] [place] [address] Breast Imaging Report MR#: [id number] Acct: [id number] Name: RADHA RAMOS Rep #: [id number] : 1955 F 57 From: Ross Saxena MD PCP: Leticia Pugh DO Status: REG CLI Exam# [id number] Ordering Dr: Zhane Angeles MD MAMMOGRAPHY - [...] [facility]. Approximately 10% of breast cancers are not detected by mammography. A normal mammogram should not delay biopsy of a clinically suspicious abnormality. Electronically Signed: Thompson Saxena MD at 10:52 EDT Tel [phone], Service support [phone], CC: hZane Angeles MD; Leticia uPgh DO Chore Worker: Signed Immunization Name Dates Details Influenza (3 [...] kg/m2 Body Surface Area Calculated 1.94 m2 [id number] Temperature 98.2 f Comments: Method: Oral Pulse [...] Value Details :54 BNP,B-Type NATRIURETIC PEPTIDE Comments: [facility] [address] [place], [address] B-TYPE CAMILO PEP 38.2 pg/mL (Normal) Range: 0-100 2-Oct-08077:54 Troponin-I Comments: 'TROP' Serial specimen #1, #2, #3, or #4: 1[facility] [address] [place], [place], [address] TROPONIN-I < 0.015 ng/mL (Normal) Comments: TROPONIN-I EXPECTED VALUES <0.045 Negative 0.045 - 0.590 Consistent with Cardiac Damage > OR = 0.600 Critical Value Not every elevated troponin is indicative of ME. T hesevalues should be used with clinical judgement in examiningthe patient's clinical picture for diagnosis. To establisha diagnosis of ME versus myocardial injury, there must be ademonstrated rise and/ or fall in the troponin values, inaddition to ischemic symptoms, EKG changes, new regionalwall motion abnormality, and/or angiographical evidence. PLEASE NOTE: REFERENCE RANGES EDITED 17:58 Lipid Profile Comments: Order Date: 10/16/16Order Info: [id number] - *Hepatic Function PanelOrder Info: [id number] - *Lipid Profile CC PCPComments: 12 hours fasting, may have water.[facility] [address] [place], [place], [address] VLDL 35 mg/dL (Normal) Range: 5-40 LDL [...] Info: [id number] - *Hepatic Function PanelOrder Info: [id number] - *Lipid Profile CC PCPComments: 12 hours fasting, may have water.[facility] [address] [place], [address] D BILI 0.07 mg/dL (Normal) Range: 0.00-0.30 T BILI 0.70 mg/dL (Normal) Range: 0.20-1.00 ALT 47 U/L (Normal) Range: 13-56 Comments: Please note revised ALT reference range iwlsvnanx41/28/2018. ALK P 103 U/L (Normal) Range: 45-117 AST 30 U/L (Normal) Range: 15-37 GLOB 3.6 g/dL (Normal) Range: 2.2-4.2 ALB 4.0 g/dL (Normal) Range: 3.2-5.0 T PROT 7.6 g/dL (Normal) Range: 6.4-8.2 10-Xih-745063:09 Free T3 Comments: [facility] [address] [place], [address] FREE T3 3.2 pg/mL (Normal) Range: 2.18-3.98 30-Ygy-521134:09 T4 Free Direct Comments: [facility] [address] [place], [address] T4 FREE DIRECT 0.84 ng/dL (Normal) Range: 0.76-1.46 67-Iyb-406268:09 Thyroid Stim Hormone (TSH) Comments: [facility] [address] [place], [address] TSH 1.27 {uIU/mL} (Normal) Range: 0.358-3.74 84-Tsc-440355:04 VITAMIN B-12 (CYANOCOBALAMIN) Comments: PATIENT WAS FASTINGPERFORMED BY: [facility] Vdirxd3354 [facility] [id number] ([id number]) Vitamin B12 1049 pg/mL (Normal) Range: 232-1245 82-Goq-041872:04 CALCIFEDIOL (00154) Comments: PATIENT WAS FASTINGPERFORMED BY: [facility] Wgvepz8788 [facility] [id number] Vitamin D, 25-Hydroxy 17.4 ng/mL (Abnormal) Range: 30.0-100.0 Comments: Vitamin D deficiency has been defined by the [place] of[place]icine and an Endocrine Society practice guideline as alevel of serum 25-OH vitamin D less than 20 ng/mL (1,2).The Endocrine Society went on to further define vitamin Dinsufficiency as a level between 21 and 29 ng/mL (2).1. IOM ([place] of Medicine). 2010. Dietary reference intakes for calcium and D. [place]: The National Academies Press.2. Catie MF, Karon ACEVEDO, Myron KESSLER, et al. Evaluation, treatment, and prevention of vitamin D deficiency: an Endocrine Society clinical practice guideline. JCEM. 2010; 96(7):1911-30. 81-Tvl-592580:08 URINE SHANI CULTURE-IDENTIFICATN Comments: PATIENT NOT FASTINGPERFORMED BY: [employer] [employer] [place] [id number] (58536) Antimicrobial MIHEAD (Normal) Comments: S = Susceptible; [...] mL (Abnormal) Urine Final report Culture,Comprehensive (Abnormal) 17-Tky-874202:08 URINALYSIS (26900) Comments: PATIENT NOT FASTINGPERFORMED BY: [facility] Tguhtb9000 LK FREEMANMaria Parham Health [id number] Information: SRC:UC Microscopic Examination MICNIP (Normal) Comments: Microscopic not indicated and not performed. Nitrite, Urine Negative (Normal) Urobilinogen,Semi-Qn 0.2 mg/dL (Normal) Range: 0.2-1.0 Bilirubin Negative (Normal) Occult Blood Negative (Normal) Ketones Negative (Normal) Glucose Negative (Normal) Protein Negative (Normal) WBC Esterase Negative (Normal) Appearance Clear (Normal) Urine-Color Yellow (Normal) pH 5.0 (Normal) Range: 5.0-7.5 Specific [place] 1.021 (Normal) Range: 1.005-1.030 :11 Basic Metabolic Profile (BMP) Comments: 'TROP' Serial specimen #1, #2, #3, or #4: 1[facility] [address] [place], [place], [address] GAP 9 (Normal) Range: 5-15 CO2 24.0 [...] A.D.A. criteria. :11 CBC W/Diff, Automated Comments: [facility] [address] [place], [address] Absolute Lymph 3.23 {X10_3/ul} (Normal) [...] Serial specimen #1, #2, #3, or #4: [facility] Pemsyukgnm6097 [facility] [place], [address] TROPONIN-I < 0.02 ng/mL (Normal) Comments: TROPONIN-I EXPECTED VALUES <0.05 NEGATIVE 0.06 - 0.59 AT RISK OF ME > OR = 0.60 SUGGEST ME 13-Nov-20160:00 ASP RADIOLOGY (FLUID) See Note (Normal) Comments: [facility] [address] [place], [address] Comments: Patient: RADHA RAMOS : 1955 (61/F) Acct Num: [id number] Phys: Jacinto VIDALES,James Unit Num: [id number] Loc: US Specimen: [id number] Received: 11/13/16 - [...] cytology study. / SVETLANA:brayden 11/13/16 TC:5 CPT: 45935, 24364, 881 72 CYTOLOGY STUDY Slides are reviewed. [...] Order Date: 09/21/16Order Info: [id number]- [id number] - *[facility]LNulxypcC[facility] [address]gnyq[address] [facility] [address]. [place], [place], [address] HGB A1C 6.3 % (Normal) Range: 4.2-6.3 80-Owr-10451:57 Lipid Profile Comments: Order Date: 10/28/15Interface Comments: 12 hours fasting, may have water.[facility] [address] [place], [place], [address] VLDL 28 mg/dL (Normal) Range: 5-40 LDL [...] 200-240 mg/dL Borderline >240 mg/dL High Risk 92-Xul-10494:57 Liver Profile Comments: Order Date: 10/28/15Interface Comments: 12 hours fasting, may have water.[facility] [address] [place], [place], [address] D BILI 0.11 mg/dL (Normal) Range: 0.00-0.30 T BILI 0.60 mg/dL (Normal) Range: 0.20-1.00 ALT 34 U/L (Normal) Range: 12-78 ALK P 95 U/L (Normal) Range: 45-117 AST 21 U/L (Normal) Range: 15-37 GLOB 3.2 g/dL (Normal) Range: 2.3-3.5 ALB 4.1 g/dL (Normal) Range: 3.4-5.0 T PROT 7.3 g/dL (Normal) Range: 6.4-8.2 85-Tqw-781820:14 CBC W/Diff, Automated Comments: Order Date: 09/21/16Order Info: [id number] - *CBC with DifferentialComments: Reason:[facility] [address] [place], [place], [address] Absolute Lymph 2.69 {X10_3/ul} (Normal) Range: 0.83-4.51 [...] 4.2-5.4 WBC 7.3 K/mm3 (Normal) Range: 4.4-11.0 90-God-738892:14 Thyroid Stim Hormone (TSH) Comments: Order Date: 09/21/16Order Info: [id number] - *TSHComments: Reason:[facility] [address] [place], [place], [address] TSH 1.64 {uIU/mL} (Normal) Range: 0.358-3.74 :55 HgA1C , Office (49086) HgA1C , Office 5.8 % (Normal) Range: 4.6 - 7.1 92-Rvx-153451:55 Blood Glucose , Office (81620) Blood Glucose , Office 110 (Normal) 05-Slu-130760:19 THROAT CULTURE (71817) Comments: PATIENT NOT FASTINGPERFORMED BY: edPULSEPeak Behavioral Health ServicesTkcuql8451 [facility] [id number] Information: SRC:TH Result 1 RRF (Normal) Comments: Routine respiratory jaylyn Upper Respiratory Culture Final report (Normal) 40-Sze-842729:42 LIPID PANEL (80351) Comments: PATIENT WAS FASTINGPERFORMED BY: LabUniversity Of [facility]–West6370 [facility] [id number] LDL/HDL Ratio 3.4 {ratio_units} (Abnormal) Range: 0.0-3.2 Comments: LDL/HDL Ratio Men Women 1/2 Avg.Risk 1.0 1.5 Av g.Risk 3.6 3.2 2X Avg.Risk 6.2 5.0 3X Avg.Risk 8.0 6.1 LDL Cholesterol Calc 122 mg/dL (Abnormal) Range: 0-99 VLDL Cholesterol Leonel 34 mg/dL (Normal) Range: 5-40 HDL Cholesterol 36 mg/dL (Abnormal) Triglycerides 172 mg/dL (Abnormal) Range: 0-149 Cholesterol, Total 192 mg/dL (Normal) Range: 100-199 85-Vwa-430449:42 CALCIFIDIOL (68345) VIT D 25 Comments: PATIENT WAS FASTINGPERFORMED BY: [employer]70 [facility] [id number]; will rview on 07/03 Vitamin D, 25-Hydroxy 23.3 ng/mL (Abnormal) Range: 30.0-100.0 Comments: Vitamin D deficiency has been defined by the [place] of[place]icine and an Endocrine Society practice guideline as alevel of serum 25-OH vitamin D less than 20 ng/mL (1,2).The Endocrine Society went on to further define vitamin Dinsufficiency as a level between 21 and 29 ng/mL (2).1. IOM ([place] of Medicine). 2010. Dietary reference intakes for calcium and D. [place]: The National Academies Press.2. Catie MF, Karon ACEVEDO, yMron KESSLER, et al. Evaluation, treatment, and prevention of vitamin D deficiency: an Endocrine Society clinical practice guideline. JCEM. 2010; 96(7):1911-30. 72-Khy-069304:09 HgA1C , Office (88258) HgA1C , Office 6.0 % (Normal) Range: 4.6 - 7.1 46-Fni-226140:09 Blood Glucose , Office (03855) Blood Glucose , Office 113 (Normal) 17-Hpv-977793:21 Microscopic Examination Comments: PATIENT WAS FASTINGPERFORMED BY: LabMinerva BiotechnologiesRobert Wood Johnson University HospitalXkvjnt1109 [facility] [id number] Bacteria Few (Normal) Mucus Threads Present (Normal) Epithelial Cells (non renal) 0-10 {/hpf} (Normal) Range: 0 - 10 RBC 0-2 {/hpf} (Normal) Range: 0 - 2 WBC 0-5 {/hpf} (Normal) Range: 0 - 5 :53 PPD (48581) Comments: lot: 83448pqk: 07/22site/route: L forearm/intradermalamt: 0.1mLVIS signed when applicableChelsea, ELECTRICAL INSTRUMENT TECHNICIAN SKIN TEST INTRADERMAL TB negative (Normal) :33 LDH (LD) (LACTATE DEHYDROGENASE) Comments: PATIENT NOT FASTINGPERFORMED BY: Spin[employer] Fpitcb7295 [facility]rapeuticsUNC [facility] [id number] (15740) LDH 174 [iU]/L (Normal) Range: 119-226 :33 SED RATE ERYTHROCYTE (21162) Comments: PATIENT NOT FASTINGPERFORMED BY: Ovuline [facility] Imbrcn5574 [facility] [id number] Sedimentation Rate-Westergren 2 mm/h (Normal) Range: 0-40 :33 C-REACTIVE PROTEIN (40406) Comments: PATIENT NOT FASTINGPERFORMED BY: Ovuline LabMinerva Biotechnologiesrp Yncknl8709 [facility] [id number] C-Reactive Protein, Quant 1.8 mg/L (Normal) Range: 0.0-4.9 :33 TSH (04444) Comments: PATIENT NOT FASTINGPERFORMED BY: Ovuline [facility] Xcxfya5221 [facility] [id number] TSH 2.710 {uIU/mL} (Normal) Range: 0.450-4.500 :33 METABOLIC PANEL, COMPREHENSIVE Comments: PATIENT NOT FASTINGPERFORMED BY: Spinzo Cqzzem9184 [facility]eraSt[facility] Hospital [id number] (96963) ALT (SGPT) 25 [iU]/L (Normal) Range: 0-32 [...] Glucose, Serum 83 mg/dL (Normal) Range: 65-99 75-Rya-438669:33 CBC W/AUTO DIFF WBC (42320) Comments: PATIENT NOT FASTINGPERFORMED BY: LabCoRobert Wood Johnson University HospitalXvvbsr3351 [facility] [id number] Immature Grans (Abs) 0.0 {x10E3/uL} (Normal) Range: [...] Range: 3.4-10.8 :00 Culture, Deep Wound Comments: [address] [place], [address] CUDW See Note (Normal) Comments: Comments: ABDOMINAL ABCESSGram StainGram Stain No White Blood Cells No organisms seen Wound CulturePossible skin contamination, further Identification and sensitivity will be performed only by physi taye's request. ORGANISM 1: Coag Negative StaphAmount Growth Very Rare Cult, AnaerobicNo anaerobic bacteria isolated. 10-Lgu-027473:51 Albumin, Serum Comments: [address] [place], [place], [address] ALB 4.3 g/dL (Normal) Range: 3.4-5.0 :51 Basic Metabolic Profile (BMP) Comments: [address] [place], [place], [address] GAP 6 (Normal) Range: 5-15 CO2 26.0 [...] <126 mg/dLsuggests IMPAIRED HOMEOSTASIS per A.D.A. criteria. 55-Ofh-362816:51 CBC-Complete Blood Cnt No Diff Comments: [facility] [address] [place], [place], [address] MPV 9.4 fL (Normal) Range: 6.2-12.0 PLT [...] (Normal) Range: 4.4-11.0 :51 Hemoglobin A1c Comments: [facility] [address] [place], [place], [address] HGB A1C 6.1 % (Normal) Range: 4.2-6.3 85-Tiw-687978:51 Prealbumin Comments: [facility] [address] [place], [place], [address] PREALBUMIN 32.4 mg/dL (Normal) Range: 20.0-40.0 71-Nox-11262:06 Urinalysis, Office (49038) UA - LEUKOCYTE ESTERASE Negative (Normal) UA - NITRITE Negative (Normal) URINE UROBILINGN MICHAEL TIMED Normal mg/dL (Normal) UA - PROTEIN Negative mg/dL (Normal) UA - PH 6.0 (Normal) Comments: 5.5 UA - BLOOD Non Hemolyzed Trace (Normal) UA - SPECIFIC GRAVITY 1.030 (Abnormal) UA - KETONES Negative mg/dL (Normal) UA - BILIRUBIN Negative (Normal) UA - GLUCOSE Negative (Normal) 4-Liv-489965:23 SED RATE ERYTHROCYTE Comments: PATIENT WAS FASTINGPERFORMED BY: [employer] [facility] [id number] Information: [id number] (38152) Sedimentation Rate-Westergren 2 mm/h (Normal) Range: 0-40 1-Vnd-168756:27 Aerobic Bacterial Culture Comments: PATIENT WAS FASTINGPERFORMED BY: [employer]70 [facility] [id number] Information: [id number] SRC: ([id number]) Result 1 Mixed skin jaylyn (Normal) Aerobic Bacterial Culture Final report (Normal) 2-Jax-860054:21 Serum Creatinine AND GFR Comments: [facility] Npagdlyrep9376 [facility]. [place], [place], [address] EST GFR - AA 73 mL/min (Normal) Comments: GFR Calc EST GFR 60 mL/min (Normal) Comments: Non- GFR Calc CREAT,SERUM 1.00 mg/dL (Normal) Range: 0.55-1.20 Comments: The validity of the calculated GFR AND GFRAA in patients over70 years has not been determined. Clinical correlation isessential. 34-Cxw-959213:21 VITAMIN B-12 (CYANOCOBALAMIN) Comments: PATIENT WAS FASTINGPERFORMED BY: [employer]70 [facility] [id number] (33047) Vitamin B12 738 pg/mL (Normal) Range: 211-946 :21 TSH (07677) Comments: PATIENT WAS FASTINGPERFORMED BY: edPULSERobert Wood Johnson University HospitalYjbhbe2081 [facility] [id number] TSH 2.440 {uIU/mL} (Normal) Range: 0.450-4.500 :21 URINALYSIS, W/ MICRO (43409) Comments: PATIENT WAS FASTINGPERFORMED BY: ATI Physical TherapyUniversity Of Michigan Health–West6370 [facility] [id number] Microscopic Examination See below: (Normal) Comments: Microscopic was indicated and was performed. Microscopic Examination MICRON (Normal) Comments: Microscopic follows if indicated. Nitrite, Urine Negative (Normal) Urobilinogen,Semi-Qn 0.2 mg/dL (Normal) Range: 0.2-1.0 Bilirubin Negative (Normal) Occult Blood Negative (Normal) Ketones Negative (Normal) Glucose Negative (Normal) Protein Negative (Normal) WBC Esterase Negative (Normal) Appearance Clear (Normal) Urine-Color Yellow (Normal) pH 5.5 (Normal) Range: 5.0-7.5 Specific [place] 1.027 (Normal) Range: 1.005-1.030 :21 MICROALBUMIN: CREATININE RATIO Comments: PATIENT WAS FASTINGPERFORMED BY: edPULSERobert Wood Johnson University HospitalHfmtzo0228 [facility] [id number] (30090) AND (95653) Microalb/Creat Ratio 2.9 {mg/g_creat} (Normal) Range: 0.0-30.0 Microalbumin, Urine 4.1 ug/mL (Normal) Creatinine, Urine 143.7 mg/dL (Normal) :21 METABOLIC PANEL, COMPREHENSIVE Comments: PATIENT WAS FASTINGPERFORMED BY: ATI Physical TherapyUniversity Of Michigan Health–West6370 [facility] [id number] (15503) ALT (SGPT) 28 [iU]/L (Normal) Range: 0-32 [...] Glucose, Serum 134 mg/dL (Abnormal) Range: 65-99 76-Vwq-523602:21 CBC W/AUTO DIFF WBC (93591) Comments: PATIENT WAS FASTINGPERFORMED BY: LabCoRobert Wood Johnson University HospitalFtsncy1498 [facility] [id number] Immature Grans (Abs) 0.0 {x10E3/uL} (Normal) Range: [...] 3.77-5.28 WBC 5.2 {x10E3/uL} (Normal) Range: 3.4-10.8 05-Zpv-644185:21 LIPID PANEL (36121) Comments: PATIENT WAS FASTINGPERFORMED BY: [employer]70 LK FREEMANMaria Parham Health [id number] LDL/HDL Ratio 3.0 {ratio_units} (Normal) Range: 0.0-3.2 Comments: LDL/HDL Ratio Men Women 1/2 Avg.Risk 1.0 1.5 Av g.Risk 3.6 3.2 2X Avg.Risk 6.2 5.0 3X Avg.Risk 8.0 6.1 LDL Cholesterol Calc 121 mg/dL (Abnormal) Range: 0-99 VLDL Cholesterol Leonel 27 mg/dL (Normal) Range: 5-40 HDL Cholesterol 41 mg/dL (Normal) Triglycerides 137 mg/dL (Normal) Range: 0-149 Cholesterol, Total 189 mg/dL (Normal) Range: 100-199 69-Tcz-812304:21 CALCIFIDIOL (65144) VIT D 25 Comments: PATIENT WAS FASTINGPERFORMED BY: [employer]6370 [facility] TherapeuticsUNC Health [id number] Vitamin D, 25-Hydroxy 19.5 ng/mL (Abnormal) Range: 30.0-100.0 Comments: Vitamin D deficiency has been defined by the [place] of[place]icine and an Endocrine Society practice guideline as alevel of serum 25-OH vitamin D less than 20 ng/mL (1,2).The Endocrine Society went on to further define vitamin Dinsufficiency as a level between 21 and 29 ng/mL (2).1. IOM ([place] of Medicine). 2010. Dietary reference intakes for calcium and D. [place]: The National Academies Press.2. Catie MF, Karon ACEVEDO, Myron KESSLER, et al. Evaluation, treatment, and prevention of vitamin D deficiency: an Endocrine Society clinical practice guideline. JCEM. 2010; 96(7):1911-30. :19 HgA1C , Office (56328) HgA1C , Office 5.8 % (Normal) Range: 4.6 - 7.1 :19 Blood Glucose , Office (86281) Blood Glucose , Office 79 (Normal) :15 Lipid Profile Comments: Order Date: 10/21/15Interface Comments: 12 hours fasting, may have water.Order Date: 10/21/15[facility] [address] [place], [place], [address] VLDL 28 mg/dL (Normal) Range: 5-40 LDL [...] 200-240 mg/dL Borderline >240 mg/dL High Risk 63-Pfk-464795:15 Liver Profile Comments: Order Date: 10/21/15Interface Comments: 12 hours fasting, may have water.Order Date: 10/21/15[facility] [address] [place], [place], [address] D BILI 0.13 mg/dL (Normal) Range: 0.00-0.30 T BILI 0.80 mg/dL (Normal) Range: 0.20-1.00 ALT 39 U/L (Normal) Range: 12-78 ALK P 90 U/L (Normal) Range: 50-136 AST 23 U/L (Normal) Range: 15-37 GLOB 3.1 g/dL (Normal) Range: 2.3-3.5 ALB 4.3 g/dL (Normal) Range: 3.4-5.0 T PROT 7.4 g/dL (Normal) Range: 6.4-8.2 :48 HgA1C , Office (34594) HgA1C , Office 5.9 % (Normal) Range: 4.6 - 7.1 :48 Blood Glucose , Office (79828) Blood Glucose , Office 81 (Normal) :50 Microscopic Examination Comments: PATIENT WAS FASTINGPERFORMED BY: ATI Physical TherapyCo Cofwvk7248 [facility] [id number] Bacteria Few (Normal) Mucus Threads Present (Normal) Epithelial Cells (non renal) 0-10 {/hpf} (Normal) Range: 0 - 10 RBC 0-2 {/hpf} (Normal) Range: 0 - 2 WBC 0-5 {/hpf} (Normal) Range: 0 - 5 :17 VITAMIN B-12 (CYANOCOBALAMIN) Comments: PATIENT NOT FASTINGPERFORMED BY: ATI Physical TherapyCoRobert Wood Johnson University HospitalObplni8000 [facility] [id number] (92266) Vitamin B12 928 pg/mL (Normal) Range: 211-946 :17 CALCIFIDIOL (34445) VIT D Comments: PATIENT NOT FASTINGPERFORMED BY: LabCo Ihjyzy1247 [facility] [id number] Information: [id number] 25 Vitamin D, 25-Hydroxy 20.0 ng/mL (Abnormal) Range: 30.0-100.0 Comments: Vitamin D deficiency has been defined by the [place] of[place]icine and an Endocrine Society practice guideline as alevel of serum 25-OH vitamin D less than 20 ng/mL (1,2).The Endocrine Society went on to further define vitamin Dinsufficiency as a level between 21 and 29 ng/mL (2).1. IOM ([place] of Medicine). 2010. Dietary reference intakes for calcium and D. [place]: The National Academies Press.2. Catie MF, Karon ACEVEDO, Myron KESSLER, et al. Evaluation, treatment, and prevention of vitamin D deficiency: an Endocrine Society clinical practice guideline. JCEM. 2010; 96(7):1911-30. :50 URINALYSIS, W/ MICRO (77865) Comments: PATIENT WAS FASTINGPERFORMED BY: HaofangtongMaria Parham Health [id number] Microscopic Examination See below: (Normal) Comments: Microscopic was indicated and was performed. Microscopic Examination MICRON (Normal) Comments: Microscopic follows if indicated. Nitrite, Urine Negative (Normal) Urobilinogen,Semi-Qn 0.2 mg/dL (Normal) Range: 0.2-1.0 Bilirubin Negative (Normal) Occult Blood Negative (Normal) Ketones Negative (Normal) Glucose Negative (Normal) Protein Negative (Normal) WBC Esterase Negative (Normal) Appearance Clear (Normal) Urine-Color Yellow (Normal) pH 6.0 (Normal) Range: 5.0-7.5 Specific [place] 1.021 (Normal) Range: 1.005-1.030 :50 MICROALBUMIN: CREATININE RATIO Comments: PATIENT WAS FASTINGPERFORMED BY: HaofangtongMaria [facility] Health [id number] (08415) AND (53655) Microalb/Creat Ratio 2.6 {mg/g_creat} (Normal) Range: 0.0-30.0 Microalbumin, Urine 4.4 ug/mL (Normal) Creatinine, Urine 170.1 mg/dL (Normal) :50 METABOLIC PANEL, COMPREHENSIVE Comments: PATIENT WAS FASTINGPERFORMED BY: HaofangtongMaria [facility] Health [id number] (72668) ALT (SGPT) 28 [iU]/L (Normal) Range: 0-32 [...] Glucose, Serum 113 mg/dL (Abnormal) Range: 65-99 14-Ahk-23321:50 CBC W/AUTO DIFF WBC Comments: PATIENT WAS FASTINGPERFORMED BY: LabCoRobert Wood Johnson University HospitalOwgbzp6253 [facility] [id number] Information: [id number] DL (70758) Immature Grans (Abs) 0.0 {x10E3/uL} (Normal) Range: [...] B-12 (CYANOCOBALAMIN) Comments: PATIENT WAS FASTINGPERFORMED BY: SpinzoJohn Ville 1210770 [facility] [id number] (36089) Vitamin B12 589 pg/mL (Normal) Range: 211-946 :50 LIPID PANEL (32833) Comments: PATIENT WAS FASTINGPERFORMED BY: LabCo[address] [id number] LDL/HDL Ratio 3.2 {ratio_units} (Normal) Range: 0.0-3.2 [...] Cholesterol, Total 178 mg/dL (Normal) Range: 100-199 14-Sxf-18206:50 CALCIFIDIOL (17068) VIT D 25 Comments: PATIENT WAS FASTINGPERFORMED BY: LabCoRobert Wood Johnson University HospitalJfwhul5481 [facility] [id number] Vitamin D, 25-Hydroxy 23.6 ng/mL (Abnormal) Range: 30.0-100.0 Comments: Vitamin D deficiency has been defined by the [place] of[place]icine and an Endocrine Society practice guideline as alevel of serum 25-OH vitamin D less than 20 ng/mL (1,2).The Endocrine Society went on to further define vitamin Dinsufficiency as a level between 21 and 29 ng/mL (2).1. IOM ([place] of Medicine). 2010. Dietary reference intakes for calcium and D. [place]: The National Academies Press.2. Catie MF, Karon ACEVEDO, Myron KESSLER, et al. Evaluation, treatment, and prevention of vitamin D deficiency: an Endocrine Society clinical practice guideline. JCEM. 2010; 96(7):1911-30. :39 HgA1C , Office (98839) HgA1C , Office 5.7 % (Normal) Range: 4.6 - 7.1 :39 Blood Glucose , Office (63085) Blood Glucose , Office 87 (Normal) :08 CK-MB Quantitative and Index Comments: 'TROP' Serial specimen #1, #2, #3, or #4: INT'CKMB' Serial Specimen #1, #2 or #3? 1[facility] [address] [place], [place], [address] CKRI 0.5 % (Normal) Range: 0.0-1.4 Comments: RELATIVE INDEX >1.5% IS PRESUMPTIVELY POSITIVE CPKMB 0.6 ng/mL (Normal) Range: 0.0-5.0 Comments: CK-MB and RI Interpretation MB Relative Index Non-AMI <or= 5 NA Indeterminate > 5 <or= 4 AMI > 5 > 4 CPK TOTAL 114 U/L (Normal) Range: 26-192 :08 Troponin I (86241) Comments: 'TROP' Serial specimen #1, #2, #3, or #4: INT'CKMB' Serial Specimen #1, #2 or #3? [facility] [address]fobdwytsu[address] [place], [place], [address] TROPONIN-I < 0.02 ng/mL (Normal) Comments: TROPONIN-I EXPECTED VALUES <0.05 NEGATIVE 0.06 - 0.59 AT RISK OF ME > OR = 0.60 SUGGEST ME 1-Jvy-924542:44 LIPID PANEL (86791) Comments: PATIENT WAS FASTINGPERFORMED BY: LabMinerva BiotechnologiesRobert Wood Johnson University HospitalUdbabs4547 [facility] [id number] Information: [id number] LDL/HDL Ratio 2.6 {ratio_units} (Normal) Range: 0.0-3.2 [...] (Normal) Range: 100-199 :56 HgA1C , Office (24848) HgA1C , Office 5.8 % (Normal) Range: 4.6 - 7.1 4-Srz-522402:56 Blood Glucose , Office (09398) Blood Glucose , Office 99 (Normal) 49-Wkj-119733:27 URINE SHANI CULTURE-MICHAEL COL Comments: PATIENT NOT FASTINGPERFORMED BY: Lab[address] [id number] Information: [facility] [id number] COUNT (78549) Antimicrobial MIHEAD (Normal) Comments: S = Susceptible; [...] . (Abnormal) Urine Final report Culture,Comprehensive (Abnormal) [id number] Urinalysis, Office (61701) UA - LEUKOCYTE ESTERASE Negative (Normal) UA - NITRITE Negative (Normal) URINE UROBILINGN MICHAEL TIMED Normal mg/dL (Normal) UA - PROTEIN Negative mg/dL (Normal) UA - PH 5 (Abnormal) UA - BLOOD Negative (Normal) UA - SPECIFIC GRAVITY 1.025 (Normal) UA - KETONES Negative mg/dL (Normal) UA - BILIRUBIN Negative (Normal) UA - GLUCOSE Negative (Normal) [id number] Culture, Wound Comments: Test performed at:[facility] [id number] [place] [address] CUW See Note (Normal) Comments: SPECIMEN RECEIVED [...] $ <=20 S(NF) indicates non-formulary drug at [facility]. Approval by In fectious Disease Specialist required before non-formulary drugs may be ordered and/or dispensed. 95-Wgm-533426:54 Bedside Glucose Comments: Test performed at:[facility] [address] [place] [address] ; ordered by Dr. Kebede BEDSIDE GLU 126 mg/dL (Abnormal) Range: 70-110 Comments: No Action RequiredMANAGEMENT OF PATIENT CARE PER NURSING PROTOCOL 24-Cif-552858:25 Urinalysis, Routine (Dipstick) Comments: How was Urine Obtained? CORE ANALYST TO SPECIFYTest performed at:[facility] [address] [place] [address] LEUK ESTERASE Negative /ul (Normal) OCCULT BLOOD-UR Negative /ul (Normal) NITRITE UR Negative (Normal) UROBILI Normal mg/dL (Normal) PROT DIPSTX Negative mg/dL (Normal) pH UR 5.0 (Normal) Range: 5.0 - 8.0 SP.GR. DIPSTX 1.020 (Normal) Range: 1.002-1.030 KETONE UR Negative mg/dL (Normal) BILIRUBIN URINE Negative mg/dL (Normal) GLUCOSE, UR Normal mg/dL (Normal) CLARITY Clear (Normal) COLOR Yellow (Normal) 03-Dbn-762706:01 Bedside Glucose Comments: Test performed at:[facility] [address] [place] [address] BEDSIDE GLU 108 mg/dL (Normal) Range: 70-110 Comments: Policy and Physicians Orders followedMANAGEMENT OF PATIENT CARE PER NURSING PROTOCOL 95-Dtz-79669:47 CBC W/Diff, Automated Comments: Test performed at:[facility] [address] [place] [address] Absolute Lymph 2.25 {X10_3/ul} (Normal) [...] 4.2-5.4 WBC 5.9 K/mm3 (Normal) Range: 4.4-11.0 11-Bzt-29722:47 Comprehensive Metabolic Profil Comments: Test performed at:[facility] [address] [place] [address] GAP 11 (Normal) Range: 5-15 CO2 24.0 [...] mg/dL (Normal) Range: 70-110 :33 LIPID PANEL (99988) Comments: PATIENT WAS FASTINGPERFORMED BY: edPULSERobert Wood Johnson University HospitalThevby1279 [facility] [id number] LDL/HDL Ratio 3.4 {ratio_units} (Abnormal) Range: 0.0-3.2 [...] 208 mg/dL (Abnormal) Range: 100-199 :33 TSH (95654) Comments: PATIENT WAS FASTINGPERFORMED BY: edPULSERobert Wood Johnson University HospitalWzgrxm3735 [facility] [id number] TSH 3.440 {uIU/mL} (Normal) Range: 0.450-4.500 37-Izc-992579:33 METABOLIC PANEL, Comments: PATIENT WAS FASTINGPERFORMED BY: [facility] [id number] Information: [id number] COMPREHENSIVE (03581) ALT (SGPT) 26 [iU]/L (Normal) Range: 0-32 [...] Glucose, Serum 108 mg/dL (Abnormal) Range: 65-99 :33 CBC (AUTO) (85451) Comments: PATIENT WAS FASTINGPERFORMED BY: LabCoRobert Wood Johnson University HospitalCylzak4387 [facility] [id number] Platelets 216 {x10E3/uL} (Normal) Range: 150-379 RDW 13.9 % (Normal) Range: 12.3-15.4 MCHC 34.1 g/dL (Normal) Range: 31.5-35.7 MCH 28.9 pg (Normal) Range: 26.6-33.0 MCV 85 fL (Normal) Range: 79-97 Hematocrit 41.6 % (Normal) Range: 34.0-46.6 Hemoglobin 14.2 g/dL (Normal) Range: 11.1-15.9 RBC 4.92 {x10E6/uL} (Normal) Range: 3.77-5.28 WBC 5.6 {x10E3/uL} (Normal) Range: 3.4-10.8 63-Xdu-260485:33 VITAMIN B-12 (CYANOCOBALAMIN) Comments: PATIENT WAS FASTINGPERFORMED BY: [facility] [id number] (39258) Vitamin B12 638 pg/mL (Normal) Range: 211-946 25-Him-650358:33 CALCIFIDIOL (05012) VIT D 25 Comments: PATIENT WAS FASTINGPERFORMED BY: LabCo Gpyidn8836 [facility] [id number]; apt. 12-13-14 Vitamin D, 25-Hydroxy 19.4 ng/mL (Abnormal) Range: 30.0-100.0 Comments: Vitamin D deficiency has been defined by the [place] ofMercy Health West Hospitalcine and an Endocrine Society practice guideline as alevel of serum 25-OH vitamin D less than 20 ng/mL (1,2).The Endocrine Society went on to further define vitamin Dinsufficiency as a level between 21 and 29 ng/mL (2).1. IOM ([place] of Medicine). 2010. Dietary reference intakes for calcium and D. [place]: The National Academies Press.2. Catie MF, Karon NC, Myron KESSLER, et al. Evaluation, treatment, and prevention of vitamin D deficiency: an Endocrine Society clinical practice guideline. JCEM. 2010; 96(7):1911-30. :47 HgA1C , Office (12637) HgA1C , Office 5.9 % (Normal) Range: 4.6 - 7.1 :05 METABOLIC PANEL, Comments: PATIENT NOT FASTINGPERFORMED BY: LabSaint [facility] Lwpdvl7853 [facility] [id number] Information: [id number] COMPREHENSIVE (35134) ALT (SGPT) 24 [iU]/L (Normal) Range: 0-32 [...] Glucose, Serum 139 mg/dL (Abnormal) Range: 65-99 :05 CBC (AUTO) (31087) Comments: PATIENT NOT FASTINGPERFORMED BY: PanelClawlin6370 [facility] [id number] Platelets 251 {x10E3/uL} (Normal) Range: 150-379 RDW 13.3 % (Normal) Range: 12.3-15.4 MCHC 33.9 g/dL (Normal) Range: 31.5-35.7 MCH 28.3 pg (Normal) Range: 26.6-33.0 MCV 84 fL (Normal) Range: 79-97 Hematocrit 43.4 % (Normal) Range: 34.0-46.6 Hemoglobin 14.7 g/dL (Normal) Range: 11.1-15.9 RBC 5.19 {x10E6/uL} (Normal) Range: 3.77-5.28 WBC 5.8 {x10E3/uL} (Normal) Range: 3.4-10.8 :05 VITAMIN B-12 (CYANOCOBALAMIN) Comments: PATIENT NOT FASTINGPERFORMED BY: Spinzo Glfjba6165 [facility] [id number] (61949) Vitamin B12 365 pg/mL (Normal) Range: 211-946 72-Xmn-391957:05 TSH (46241) Comments: PATIENT NOT FASTINGPERFORMED BY: LabCoRobert Wood Johnson University HospitalEnpskk8279 [facility] [id number] TSH 2.930 {uIU/mL} (Normal) Range: 0.450-4.500 :25 [...] <0.05 NEGATIVE0.06 - 0.59 AT RISK OF ME> OR = 0.60 SUGGEST ME :32 URINE SHANI CULTURE (MICHAEL Comments: PATIENT NOT FASTINGPERFORMED BY: LabCoRobert Wood Johnson University HospitalNvflps5325 [facility] [id number] Information: SRC:TERRANCE [id number] COL COUNT) (14668) Result 1 MUG (Normal) Comments: Mixed urogenital flora25,000-50,000 colony forming units per mL Urine Final report (Normal) Culture,Comprehensive :14 Urinalysis, Office (05999) UA - LEUKOCYTE ESTERASE Negative (Normal) UA - NITRITE Negative (Normal) URINE UROBILINGN MICHAEL TIMED Normal mg/dL (Normal) UA - PROTEIN Negative mg/dL (Normal) UA - PH 5.0 (Normal) Comments: 5.5 UA - BLOOD Negative (Normal) UA - SPECIFIC GRAVITY 1.030 (Abnormal) UA - KETONES Negative mg/dL (Normal) UA - BILIRUBIN Negative (Normal) UA - GLUCOSE Negative (Normal) :51 HgA1C , Office (56710) HgA1C , Office 6.1 % (Normal) Range: 4.6 - 7.1 :16 URINE SHANI CULTURE-MICHAEL COL Comments: PATIENT NOT FASTINGPERFORMED BY: LabCoRobert Wood Johnson University HospitalWlpips4816 [facility] [id number] Information: SRC:UR [id number] COUNT ([id number]) Result 1 ECV (Abnormal) Comments: Escherichia coli, [...] S Urine Final report Culture,Comprehensi (Abnormal) ve 69-Dsl-551485:59 Urinalysis, Office (47083) UA - LEUKOCYTE ESTERASE Small (Normal) UA - NITRITE Negative (Normal) URINE UROBILINGN MICHAEL TIMED 2 mg/dL (Normal) UA - PROTEIN Negative mg/dL (Normal) UA - PH 6.5 (Normal) UA - BLOOD Hemolyzed Small (Normal) UA - SPECIFIC GRAVITY 1.025 (Normal) UA - KETONES Negative mg/dL (Normal) UA - BILIRUBIN Negative (Normal) UA - GLUCOSE Negative (Normal) :33 HgA1C , Office (25358) HgA1C , Office 6.1 % (Normal) Range: 4.6 - 7.1 :33 Blood Glucose , Office (41593) Blood Glucose , Office 144 (Normal) Comments: non-fasting 67-Qes-227983:24 Microscopic Examination Comments: PATIENT WAS FASTINGPERFORMED BY: [employer] [facility] [id number] Bacteria Few (Normal) Mucus Threads Present (Normal) Epithelial Cells (non renal) >10 {/hpf} (Abnormal) Range: 0 - 10 RBC 0-2 {/hpf} (Normal) Range: 0 - 2 WBC 0-5 {/hpf} (Normal) Range: 0 - 5 :48 TSH (97591) Comments: PATIENT WAS FASTINGPERFORMED BY: [employer] [facility] [id number] TSH 3.000 {uIU/mL} (Normal) Range: 0.450-4.500 :48 LIPID PANEL (40216) Comments: PATIENT WAS FASTINGPERFORMED BY: [employer] [facility] [id number] LDL/HDL Ratio 2.8 {ratio_units} (Normal) Range: 0.0-3.2 LDL Cholesterol Calc 105 mg/dL (Abnormal) Range: 0-99 VLDL Cholesterol Leonel 26 mg/dL (Normal) Range: 5-40 HDL Cholesterol 37 mg/dL (Abnormal) Comments: According to ATP-III Guidelines, HDL-C >59 mg/dL is considered anegative risk factor for CHD. Cholesterol, Total 168 mg/dL (Normal) Range: 100-199 Triglycerides 128 mg/dL (Normal) Range: 0-149 :48 URINALYSIS, W/ MICRO (66301) Comments: PATIENT WAS FASTINGPERFORMED BY: [employer]6370 [facility] [id number] Microscopic Examination See below: (Normal) Microscopic Examination MICRON (Normal) Comments: Microscopic follows if indicated. Nitrite, Urine Negative (Normal) Urobilinogen,Semi-Qn 0.2 mg/dL (Normal) Range: 0.0-1.9 Bilirubin Negative (Normal) Occult Blood Negative (Normal) Ketones Negative (Normal) Glucose Negative (Normal) Protein Negative (Normal) WBC Esterase Negative (Normal) Appearance Clear (Normal) Urine-Color Yellow (Normal) pH 6.0 (Normal) Range: 5.0-7.5 Specific [place] 1.026 (Normal) Range: 1.005-1.030 :48 MICROALBUMIN: CREATININE RATIO Comments: PATIENT WAS FASTINGPERFORMED BY: HaofangtongMaria [facility] Health [id number] (85974) AND (76783) Microalb/Creat Ratio 3.5 {mg/g_creat} (Normal) Range: 0.0-30.0 Microalbumin, Urine 5.6 ug/mL (Normal) Range: 0.0-17.0 Creatinine, Urine 158.6 mg/dL (Normal) Range: 15.0-328.0 :48 METABOLIC PANEL, COMPREHENSIVE Comments: PATIENT WAS FASTINGPERFORMED BY: [employer]70 LK FREEMANMaria Parham Health [id number] (77843) ALT (SGPT) 26 [iU]/L (Normal) Range: 0-32 [...] Glucose, Serum 100 mg/dL (Abnormal) Range: 65-99 30-Hkf-73233:48 CBC WITH MANUAL DIFF Comments: PATIENT WAS FASTINGPERFORMED BY: LabUniversity Of [facility] Health–West6370 [facility] [id number] Information: [id number] (07713) Immature Grans (Abs) 0.0 {x10E3/uL} (Normal) Range: [...] to dr sánchez; PATIENT WAS FASTINGPERFORMED BY: edPULSERobert Wood Johnson University HospitalWzptso6422 [facility] [id number] (69442) ALT (SGPT) 25 [iU]/L (Normal) Range: 0-32 AST (SGOT) 21 [iU]/L (Normal) Range: 0-40 Alkaline Phosphatase, S 103 [iU]/L (Normal) Range: 39-117 Bilirubin, Direct 0.16 mg/dL (Normal) Range: 0.00-0.40 Bilirubin, Total 0.8 mg/dL (Normal) Range: 0.0-1.2 Albumin, Serum 4.7 g/dL (Normal) Range: 3.5-5.5 Protein, Total, Serum 7.1 g/dL (Normal) Range: 6.0-8.5 :41 LIPID PANEL (76456) Comments: send to dr sánchez; PATIENT WAS FASTINGPERFORMED BY: edPULSERobert Wood Johnson University HospitalDxmgoh5703 [facility] [id number] Information: [id number] LDL Cholesterol Calc 104 mg/dL (Abnormal) Range: 0-99 LDL/HDL Ratio 2.7 {ratio_units} (Normal) Range: 0.0-3.2 HDL Cholesterol 39 mg/dL (Abnormal) Comments: According to ATP-III Guidelines, HDL-C >59 mg/dL is considered anegative risk factor for CHD. VLDL Cholesterol Leonel 20 mg/dL (Normal) Range: 5-40 Triglycerides 100 mg/dL (Normal) Range: 0-149 Cholesterol, Total 163 mg/dL (Normal) Range: 100-199 :47 HgA1C , Office (15613) HgA1C , Office 5.7 % (Normal) Range: 4.6 - 7.1 :47 Blood Glucose , Office (49167) Blood Glucose , Office 142 (Normal) :18 Microscopic Examination Comments: PATIENT WAS FASTINGPERFORMED BY: [facility] Jxpomq34[address]ublin [place] [id number] Bacteria None seen (Normal) Mucus Threads Present (Normal) Epithelial Cells (non renal) 0-10 {/hpf} (Normal) Range: 0 - 10 RBC None seen {/hpf} (Normal) Range: 0 - 3 WBC 0-5 {/hpf} (Normal) Range: 0 - 5 :18 Vitamin D Hydroxy (44876) Comments: PATIENT WAS FASTINGPERFORMED BY: [facility] Zrzymm68[address] Road[address]ublin [place] [id number] Vitamin D, 25-Hydroxy 21.1 ng/mL (Abnormal) Range: 30.0-100.0 Comments: Vitamin D deficiency has been defined by the [place] ofMedicine and an Endocrine Society practice guideline as alevel of serum 25-OH vitamin D less than 20 ng/mL (1,2).The Endocrine Society went on to further define vitamin Dinsufficiency as a level between 21 and 29 ng/mL (2).1. IOM ([place] of Medicine). 2010. Dietary reference intakes for calcium and D. [place]: The National Academies Press.2. Catie MF, Karon NC, Myron KESSLER, et al. Evaluation, treatment, and prevention of vitamin D deficiency: an Endocrine Society clinical practice guideline. JCEM. 2010; 96(7):1911-30. :18 TSH (94481) Comments: PATIENT WAS FASTINGPERFORMED BY: CB [facility] Cimbpz4935 [address]ublin [place] [id number] TSH 2.340 {uIU/mL} (Normal) Range: 0.450-4.500 :18 URINALYSIS, W/ MICRO (47021) Comments: PATIENT WAS FASTINGPERFORMED BY: [facility] Hdhoqq2375 [address]Dublin [place] [id number] Microscopic Examination See below: (Normal) Microscopic Examination MICRON (Normal) Comments: Microscopic follows if indicated. Nitrite, Urine Negative (Normal) Urobilinogen,Semi-Qn 0.2 mg/dL (Normal) Range: 0.0-1.9 Bilirubin Negative (Normal) Occult Blood Negative (Normal) Ketones Negative (Normal) Glucose Negative (Normal) Protein Negative (Normal) WBC Esterase Negative (Normal) Appearance Clear (Normal) pH 6.0 (Normal) Range: 5.0-7.5 Urine-Color Yellow (Normal) Specific [place] 1.024 (Normal) Range: 1.005-1.030 :18 MICROALBUMIN: CREATININE RATIO Comments: PATIENT WAS FASTINGPERFORMED BY: edPULSERobert Wood Johnson University HospitalHvlurt3902 [facility] [id number] (71425) AND (31468) Microalb/Creat Ratio 2.7 {mg/g_creat} (Normal) Range: 0.0-30.0 Creatinine, Urine 138.1 mg/dL (Normal) Range: 15.0-278.0 Microalbumin, Urine 3.7 ug/mL (Normal) Range: 0.0-17.0 :18 METABOLIC PANEL, COMPREHENSIVE Comments: PATIENT WAS FASTINGPERFORMED BY: [employer] Qxgpmy5238 [facility] [id number] (70440) ALT (SGPT) 25 [iU]/L (Normal) Range: 0-32 [...] mg/dL (Normal) Range: 65-99 :18 LIPID PANEL (89467) Comments: PATIENT WAS FASTINGPERFORMED BY: [facility]inOtvet [facility] [id number] LDL/HDL Ratio 2.8 {ratio_units} (Normal) Range: 0.0-3.2 [...] MANUAL DIFF Comments: PATIENT WAS FASTINGPERFORMED BY: [employer]70 [facility] [id number] Information: [id number] (26702) Immature Grans (Abs) 0.0 {x10E3/uL} (Normal) Range: [...] (Normal) Range: 3.4-10.8 :31 HgA1C , Office (09122) HgA1C , Office 5.5 % (Normal) Range: 4.6 - 7.1 :31 Blood Glucose , Office (06175) Blood Glucose , Office 113 (Normal) :23 HgA1C , Office (90281) HgA1C , Office 6.1 % (Normal) Range: 4.6 - 7.1 :23 Blood Glucose , Office (02964) Blood Glucose , Office 118 (Normal) :33 Microscopic Examination Comments: PATIENT WAS FASTINGPERFORMED BY: LabCoRobert Wood Johnson University HospitalRafvem5422 [facility] [id number] Bacteria None seen (Normal) Mucus Threads Present (Normal) Epithelial Cells (non renal) 0-10 {/hpf} (Normal) Range: 0 - 10 RBC 0-3 {/hpf} (Normal) Range: 0 - 3 WBC 0-5 {/hpf} (Normal) Range: 0 - 5 :27 FECAL OCCULT HGB ASSAY- tubes sent home (71325) FECAL OCCULT HGB ASSAY, QUAL, 1-3 SIMULTANEOU negative (Normal) :33 TSH (43274) Comments: PATIENT WAS FASTINGPERFORMED BY: [facility] [id number] TSH 3.330 {uIU/mL} (Normal) Range: 0.450-4.500 :33 URINALYSIS, W/ MICRO (11324) Comments: PATIENT WAS FASTINGPERFORMED BY: [employer] [facility] [id number] Microscopic Examination MICRON (Normal) Comments: Microscopic follows if indicated. Microscopic Examination See below: (Normal) Nitrite, Urine Negative (Normal) Urobilinogen,Semi-Qn 0.2 mg/dL (Normal) Range: 0.0-1.9 Bilirubin Negative (Normal) Occult Blood Negative (Normal) Ketones Negative (Normal) Glucose Negative (Normal) Protein Negative (Normal) WBC Esterase Negative (Normal) Appearance Clear (Normal) Urine-Color Yellow (Normal) pH 7.0 (Normal) Range: 5.0-7.5 Specific [place] 1.021 (Normal) Range: 1.005-1.030 :33 MICROALBUMIN: CREATININE RATIO Comments: PATIENT WAS FASTINGPERFORMED BY: [employer] [facility] [id number] (42712) AND (81345) Microalb/Creat Ratio 1.6 {mg/g_creat} (Normal) Range: 0.0-30.0 Creatinine, Urine 154.5 mg/dL (Normal) Range: 15.0-278.0 Microalbumin, Urine 2.5 ug/mL (Normal) Range: 0.0-17.0 :33 METABOLIC PANEL, COMPREHENSIVE Comments: PATIENT WAS FASTINGPERFORMED BY: [employer] [facility] [id number] (44615) ALT (SGPT) 24 [iU]/L (Normal) Range: 0-32 [...] 31 d - 5 months 15 - 6 m - up to 1 year [...] Glucose, Serum 105 mg/dL (Abnormal) Range: 65-99 49-Yia-246939:33 LIPID PANEL (21989) Comments: PATIENT WAS FASTINGPERFORMED BY: LabCoRobert Wood Johnson University HospitalCsfnmh8262 [facility] [id number] LDL Cholesterol Calc 115 mg/dL (Abnormal) Range: 0-99 LDL/HDL Ratio 2.9 {ratio_units} (Normal) Range: 0.0-3.2 HDL Cholesterol 39 mg/dL (Abnormal) Comments: According to ATP-III Guidelines, HDL-C >59 mg/dL is considered anegative risk factor for CHD. VLDL Cholesterol Leonel 32 mg/dL (Normal) Range: 5-40 Cholesterol, Total 186 mg/dL (Normal) Range: 100-199 Triglycerides 160 mg/dL (Abnormal) Range: 0-149 04-Bkp-501487:33 CBC WITH MANUAL DIFF Comments: PATIENT WAS FASTINGPERFORMED BY: [facility] [id number] Information: [id number] (80857) Immature Grans (Abs) 0.0 {x10E3/uL} (Normal) Range: [...] (Normal) Range: 4.0-10.5 :33 Vitamin D Hydroxy (55053) Comments: PATIENT WAS FASTINGPERFORMED BY: LabCoRobert Wood Johnson University HospitalWispzh5191 [facility] [id number] Vitamin D, 25-Hydroxy 46.4 ng/mL (Normal) Range: 30.0-100.0 Comments: Vitamin D deficiency has been defined by the [place] ofMercy Health West Hospitalcine and an Endocrine Society practice guideline as alevel of serum 25-OH vitamin D less than 20 ng/mL (1,2).The Endocrine Society went on to further define vitamin Dinsufficiency as a level between 21 and 29 ng/mL (2).1. IOM ([place] of Medicine). 2010. Dietary reference intakes for calcium and D. [place]: The National Academies Press.2. Catie VÁSQUEZ, Karon ACEVEDO, Myron KESSLER, et al. Evaluation, treatment, and prevention of vitamin D deficiency: an Endocrine Society clinical practice guideline. JCEM. 2010; 96(7):1911-30. :58 HgA1C , Office (42965) HgA1C , Office 6.0 % (Normal) Range: 4.6 - 7.1 :58 Blood Glucose , Office (44049) Blood Glucose , Office 92 (Normal) :59 HgA1C , Office (14406) HgA1C , Office 5.5 % (Normal) Range: 4.6 - 7.1 :59 Blood Glucose , Office (35963) Blood Glucose , Office 105 (Normal) :40 LIPID PANEL (34674) Comments: PATIENT WAS FASTINGPERFORMED BY: LabCoRobert Wood Johnson University HospitalBwkkxl2367 [facility] [id number] LDL Cholesterol Calc 144 mg/dL (Abnormal) Range: 0-99 LDL/HDL Ratio 3.1 {ratio_units} (Normal) Range: 0.0-3.2 VLDL Cholesterol Leonel 24 mg/dL (Normal) Range: 5-40 HDL Cholesterol 46 mg/dL (Normal) Comments: According to ATP-III Guidelines, HDL-C >59 mg/dL is considered anegative risk factor for CHD. Triglycerides 118 mg/dL (Normal) Range: 0-149 Cholesterol, Total 214 mg/dL (Abnormal) Range: 100-199 7-Vip-118788:40 TSH (74581) Comments: PATIENT WAS FASTINGPERFORMED BY: [facility] TherapyUniversity [facility]West6370 [facility] [id number] TSH 2.430 {uIU/mL} (Normal) Range: 0.450-4.500 6-Xex-573163:40 URINALYSIS, W/ MICRO (34852) Comments: PATIENT WAS FASTINGPERFORMED BY: AT[facility] Physical TherapyUniversity Of Michigan Health–West[address] [place] [address] [id number] Microscopic Examination See below: (Normal) Microscopic Examination MICRON (Normal) Comments: Microscopic follows if indicated. Nitrite, Urine Negative (Normal) Urobilinogen,Semi-Qn 0.2 mg/dL (Normal) Range: 0.0-1.9 Bilirubin Negative (Normal) Occult Blood Negative (Normal) Ketones Negative (Normal) Glucose Negative (Normal) Protein Negative (Normal) WBC Esterase Negative (Normal) Appearance Clear (Normal) Urine-Color Yellow (Normal) pH 5.5 (Normal) Range: 5.0-7.5 Specific [place] 1.022 (Normal) Range: 1.005-1.030 2-Rnv-835789:40 MICROALBUMIN: CREATININE RATIO Comments: PATIENT WAS FASTINGPERFORMED BY: edPULSERobert Wood Johnson University HospitalTqiksr4994 [facility] [id number] (12594) AND (33440) Microalb/Creat Ratio 2.2 {mg/g_creat} (Normal) Range: 0.0-30.0 Creatinine, Urine 124.7 mg/dL (Normal) Range: 15.0-278.0 Microalbumin, Urine 2.7 ug/mL (Normal) Range: 0.0-17.0 8-Lpl-062547:40 METABOLIC PANEL, COMPREHENSIVE Comments: PATIENT WAS FASTINGPERFORMED BY: [facility] [id number] (30780) ALT (SGPT) 27 [iU]/L (Normal) Range: 0-32 [...] Glucose, Serum 119 mg/dL (Abnormal) Range: 65-99 0-Tah-520552:40 CBC WITH MANUAL DIFF Comments: PATIENT WAS FASTINGPERFORMED BY: [facility] [id number] Information: [id number] (79605) Immature Grans (Abs) 0.0 {x10E3/uL} (Normal) Range: [...] 3.77-5.28 WBC 5.9 {x10E3/uL} (Normal) Range: 4.0-10.5 3-Uvk-124180:40 Microscopic Examination Comments: PATIENT WAS FASTINGPERFORMED BY: HaofangtongMaria [facility] Health [id number] Bacteria None seen (Normal) Mucus Threads Present (Normal) Epithelial Cells (non renal) 0-10 {/hpf} (Normal) Range: 0 - 10 RBC None seen {/hpf} (Normal) Range: 0 - 3 WBC 0-5 {/hpf} (Normal) Range: 0 - 5 :59 HgA1C , Office (58816) HgA1C , Office 5.8 % (Normal) Range: 4.6 - 7.1 :59 Blood Glucose , Office (37925) Blood Glucose , Office 137 (Normal) :50 URINE SHANI CULTURE (MICHAEL Comments: PATIENT NOT FASTINGPERFORMED BY: [facility]inOtvet [facility] [id number] Information: SRC:UR [id number] COL COUNT) (82769) Result 1 MUG (Normal) Comments: Mixed urogenital flora10,000-25,000 colony forming units per mL Urine Final report (Normal) Culture,Comprehensive 09-Oct-20118:53 Urinalysis, Office (97765) UA - BILIRUBIN Large (Normal) UA - BLOOD Negative (Normal) UA - GLUCOSE Negative (Normal) UA - KETONES Negative mg/dL (Normal) UA - LEUKOCYTE ESTERASE Negative (Normal) UA - NITRITE Negative (Normal) UA - PH 6.0 (Normal) UA - PROTEIN Negative mg/dL (Normal) UA - SPECIFIC GRAVITY 1.025 (Normal) URINE UROBILINGN MICHAEL TIMED Normal mg/dL (Normal) 90-Daa-312280:17 Microscopic Examination Comments: PATIENT WAS FASTINGPERFORMED BY: [facility] [id number] Bacteria None seen (Normal) Mucus Threads Present (Normal) Epithelial Cells (non renal) 0-10 {/hpf} (Normal) Range: 0 - 10 RBC 0-3 {/hpf} (Normal) Range: 0 - 3 WBC 0-5 {/hpf} (Normal) Range: 0 - 5 32-Dso-624343:32 L/S SPINE,MIN 4 VIEWS Radiology Report See [...] Saxena M.D.September 24, 2011 at 3:23:12 PM [id number] Signed GP/GP If you are the referring physician and would like t o consult with theradiologist who provided this interpretation, please contact Marcelo Choudhury at [phone]. If this radiologist is unavailable, youwill be directed to another radiologist to assist. If you are a patient with a question regarding this report, pleasecontactyour referring physician directly. Professional Interpretation Provided By: [employer], Phone ,Fax Dictated on 09/24/11 1000 by Odessa VIDALES,Adrianascribed on 09/24/11 1530 by ITS IMPORTSign by Odessa VIDALES,Ross on 09/24/111529 Sign by: Ross Saxena MD 43-Lab-110976:17 Hemoglobin Glyclated (HGB A1C) Comments: PATIENT WAS FASTINGPERFORMED BY: [employer]70 [facility] [id number] (11282) Hemoglobin A1c 5.6 % (Normal) Range: 4.8-5.6 Comments: . Increased risk for diabetes: 5.7 - 6.4 Diabetes: >6.4 Glycemic control for adults with diabetes: <7.0 51-Okg-112258:17 LIPID PANEL (73829) Comments: PATIENT WAS FASTINGPERFORMED BY: [employer]70 [facility] [id number] LDL/HDL Ratio 3.2 {ratio_units} (Normal) Range: 0.0-3.2 LDL Cholesterol Calc 126 mg/dL (Abnormal) Range: 0-99 VLDL Cholesterol Leonel 30 mg/dL (Normal) Range: 5-40 HDL Cholesterol 40 mg/dL (Normal) Comments: According to ATP-III Guidelines, HDL-C >59 mg/dL is considered anegative risk factor for CHD. Triglycerides 151 mg/dL (Abnormal) Range: 0-149 Cholesterol, Total 196 mg/dL (Normal) Range: 100-199 [id number]-Mhr-[id number] TSH ([id number]) Comments: PATIENT WAS FASTINGPERFORMED BY: [employer] [facility] [id number] TSH 2.330 {uIU/mL} (Normal) Range: 0.450-4.500 57-Inb-318632:17 URINALYSIS, W/ MICRO (92809) Comments: PATIENT WAS FASTINGPERFORMED BY: [facility] [id number] Microscopic Examination See below: (Normal) Microscopic Examination MICRON (Normal) Comments: Microscopic follows if indicated. Nitrite, Urine Negative (Normal) Urobilinogen,Semi-Qn 0.2 mg/dL (Normal) Range: 0.0-1.9 Bilirubin Negative (Normal) Occult Blood Negative (Normal) Ketones Negative (Normal) Glucose Negative (Normal) Protein Negative (Normal) WBC Esterase Negative (Normal) Appearance Clear (Normal) Urine-Color Yellow (Normal) pH 5.0 (Normal) Range: 5.0-7.5 Specific [place] 1.022 (Normal) Range: 1.005-1.030 71-Zkq-776080:17 MICROALBUMIN: CREATININE RATIO Comments: PATIENT WAS FASTINGPERFORMED BY: [facility] [id number] ([id number]) AND (73298) Microalb/Creat Ratio 2.4 {mg/g_creat} (Normal) Range: 0.0-30.0 Microalbumin, Urine 3.0 ug/mL (Normal) Range: 0.0-17.0 Creatinine, Urine 125.5 mg/dL (Normal) Range: 15.0-278.0 91-Ncj-155616:17 METABOLIC PANEL, COMPREHENSIVE Comments: PATIENT WAS FASTINGPERFORMED BY: [facility] [id number] (56540) ALT (SGPT) 18 [iU]/L (Normal) Range: 0-40 [...] Glucose, Serum 100 mg/dL (Abnormal) Range: 65-99 90-Xie-286059:17 CBC WITH MANUAL DIFF Comments: PATIENT WAS FASTINGPERFORMED BY: [facility]Robert [facility] HospitalNbueqj1761 [facility] [id number] Information: [id number] (88653) Immature Grans (Abs) 0.0 {x10E3/uL} (Normal) Range: [...] (Normal) Range: 4.0-10.5 :17 Vitamin D Hydroxy (77184) Comments: PATIENT WAS FASTINGPERFORMED BY: [employer] [place] [id number] Vitamin D, 25-Hydroxy 15.2 ng/mL (Abnormal) Range: 30.0-100.0 Comments: Vitamin D deficiency has been defined by the [place] of[facility] and an Endocrine Society practice guideline as alevel of serum 25-OH vitamin D less than 20 ng/mL (1,2).The Endocrine Society went on to further define vitamin Dinsufficiency as a level between 21 and 29 ng/mL (2).1. IOM ([place] of Medicine). 2010. Dietary reference intakes for calcium and D. [place]: The National Academies Press.2. Catie MF, Karon NC, Myron KESSLER, et al. Evaluation, treatment, and prevention of vitamin D deficiency: an Endocrine Society clinical practice guideline. JCEM. 2010; 96(7):1911-30. :46 CK, Total+Isoenzymes, Serum Comments: PATIENT NOT FASTINGPERFORMED BY: [place] [id number] CK-BB 0 % (Normal) CK-MB 0 % (Normal) Range: 0-3 Macro Type 1 0 % (Normal) CK-MM 100 % (Normal) Range: 97-100 Macro Type 2 0 % (Normal) Creatine Kinase,Total,Serum 82 U/L (Normal) Range: 24-173 77-Nuk-336759:00 Urinalysis, Office (38914) UA - BILIRUBIN Negative (Normal) UA - BLOOD Negative (Normal) UA - GLUCOSE Negative (Normal) UA - KETONES Negative mg/dL (Normal) UA - LEUKOCYTE ESTERASE Negative (Normal) UA - NITRITE Negative (Normal) UA - PH 5.0 (Normal) UA - PROTEIN Negative mg/dL (Normal) UA - SPECIFIC GRAVITY 1.025 (Normal) URINE UROBILINGN MICHAEL TIMED Normal mg/dL (Normal) :49 HgA1C , Office (18755) HgA1C , Office 6.4 % (Normal) Range: 4.6 - 7.1 :49 Blood Glucose , Office (65968) Blood Glucose , Office 186 (Normal) 21-Air-057286:14 Metabolic Panel, Basic Comments: PATIENT NOT FASTINGPERFORMED BY: [facility]CoRobert [facility] HospitalIzjviq1789 [facility] [id number] Information: [id number] (90466) Calcium, Serum 9.4 mg/dL (Normal) Range: 8.7-10.2 [...] Glucose, Serum 202 mg/dL (Abnormal) Range: 65-99 30-Xhc-42538:45 Urinalysis, Office (17155) UA - BILIRUBIN Small (Normal) UA - BLOOD Negative (Normal) UA - GLUCOSE Negative (Normal) UA - KETONES Small mg/dL (Normal) UA - LEUKOCYTE ESTERASE Negative (Normal) UA - NITRITE Negative (Normal) UA - PH 5.0 (Normal) UA - PROTEIN Negative mg/dL (Normal) UA - SPECIFIC GRAVITY 1.025 (Normal) URINE UROBILINGN MICHAEL TIMED Normal mg/dL (Normal) 5-Dez-715602:50 URINE SHANI CULTURE-MICHAEL COL Comments: PATIENT NOT FASTINGPERFORMED BY: [facility]tongMaria [facility] [id number] Information: SRC:[facility] [id number] COUNT (94485) Result 1 ECV (Normal) Comments: Escherichia coli, [...] S Urine Final report (Normal) Culture,Comprehensiv e 1-Jdz-854011:27 Urinalysis, Office (63175) UA - BILIRUBIN Small (Normal) UA - BLOOD Hemolyzed Large (Normal) UA - GLUCOSE Negative (Normal) UA - KETONES Negative mg/dL (Normal) UA - LEUKOCYTE ESTERASE Small (Normal) UA - NITRITE Negative (Normal) UA - PH 6.0 (Normal) UA - PROTEIN 300 mg/dL (Normal) UA - SPECIFIC GRAVITY 1.025 (Normal) URINE UROBILINGN MICHAEL TIMED Normal mg/dL (Normal) 95-Baj-031261:03 CALCIFIDIOL (73228) VIT D Comments: PATIENT NOT FASTINGPERFORMED BY: [place] [id number] Information: [id number] 25 Vitamin D, 25-Hydroxy 28.0 ng/mL (Abnormal) Range: 32.0-100.0 Comments: Effective January 26, 2011 Vitamin D, 25-Hydroxy reference intervals will be changing to 30-100. .Recent studies consider the lower li lucio of 32.0 ng/mL to be athreshold for optimal health.Francisco Javier FOSTER. J Nutr. 2004;135(2):317-22. 20-Dkm-637888:09 KNEE,4 OR MORE VIEWS Radiology Report See [...] joint space narrowing. Dictated on 10/02/101408 by Jesus Manuel Saxena MDribed on 10/03/101323 by ITS IMPORTSign by Ross Saxena MD on 10/03/101323 Sign by: Ross Saxena MD :00 KNEE,4 OR MORE VIEWS Radiology Report See [...] of the knee. Dictated on 10/02/101408 by Nora Saxena MD on 10/03/10 1324 by ITS IMPORTSign by Ross Saxena MD on 10/03/10 1325 Sign by: Ross Saxena MD 43-Mav-82308:00 RHEUMATOID FACTOR-QUANT Comments: PATIENT NOT FASTINGPERFORMED BY: [employer] Czdxgu4338 [facility] [id number] BY: [facility] TherapyS[place] [id number] (65525) RA Latex Turbid. 8.6 {IU/mL} (Normal) Range: 0.0-13.9 :00 PARATHORMONE (25730) Comments: PATIENT NOT FASTINGPERFORMED BY: [employer] Kfmlkc9487 [facility] [id number] BY: [facility] [id number] PTH, Intact 23 pg/mL (Normal) Range: 15-65 :00 CALCIUM SERUM (62825) Comments: PATIENT NOT FASTINGPERFORMED BY: [employer] Ycenwn7320 [facility] [id number] BY: edPULSE[address] [id number] Calcium, Serum 9.4 mg/dL (Normal) Range: 8.7-10.2 CCP Antibodies IgG/IgA 3 {units} (Normal) Comments: PATIENT NOT FASTINGPERFORMED BY: [employer] Ivnhxq0685 [facility] [id number] BY: [facility] [id number] :00 Range: 0-19 Comments: Negative <20 Weak positive 20 - 39 Moderate positive 40 - 59 Strong positive >59 35-Hbf-492289:15 STEVE DIR SEMI-QL STEVE DIRECT 33 AU/mL (Normal) 54-Pdx-314225:15 ANTI JO1 ANTI ABIGAIL 7 AU/mL (Normal) [...] {uIU/mL} (Normal) Range: 0.358-3.74 :15 VIT D,25 32290 13.3 ng/mL (Abnormal) Comments: appt 09/29/10 Range: 32.0-100.0 Comments: Recent studies consider the lower limit of 32.0 ng/mL to dory threshold for optimal health.Francisco Javier FOSTER. J Nutr. 2004;135(2):317-22.Performed at: [place] [address]Lab Director: Hamida Boyer MD, Phone: [phone] 43-Wtw-15606:20 HEPATOBILIARY IMAGING Radiology Report See Note (Normal) [...] 06/05/10 1347 Sign by: Ross Saxena MD 88-Xhw-80930:51 GALLBLADDER Radiology Report See Note (Normal) Comments: [...] described above. Dictated on 05/26/10 0900 by GARFIELD OCASIO MDOTranscribed on 05/27/10 1015 by ITS IMPORTSign by Meredith OCASIO MD on 05/27/10 1015 Sign by: ADRIAN OCASIO MD H.PYLORI [id number] < 0.9 U/mL Range: 0.0-0.8 3:08 (Normal) Comments: Negative <0.9 Indeterminate 0.9 - 1.0 Positive >1.0Performed at: - [facility] [address] [id number] Director: Hamida Boyer MD, Phone: [phone] 00-Qfw-030469:21 FECAL OCCULT- Tubes sent home (71842) FECAL OCCULT HGB ASSAY, QUAL, 1-3 SIMULTANEOU negative (Normal) 11-Sep-20088:22 THYROID IMAGING ONLY Radiology Report See Note (Normal) Comments: Exam Number: [id number] THYROID SCAN AND UPTAKE The patient was [...] on August. Reported By: KEVIN YUAN M.D. 81-Rbx-584387:05 THYROID Radiology Report See Note (Normal) Comments: Exam Number: [id number] CLINICAL:52-year-old female with nodules ULTRASOUND THYROID COMPARISON:None. [...] Report See Note (Normal) Comments: Exam Number: [id number] CLINICAL:52-year-old female with swollen areas at base of neck, anteriorly. Possible supraclavicular masses. 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 No [...] further evaluation. Reported By: DONTAE ESPINAL M.D. 29-Bqu-280619:47 UPPER EXT/JT ONLY (ROUTINE) Radiology Report See Note (Normal) Comments: Exam Number: [id number] MRI OF THE RIGHT SHOULDER WITHOUT CONTRAST. [...] subacromial fat. Reported By: EMELI COLEMAN M.D. 9-Tgr-468244:03 SHOULDER,MIN 2 VIEWS (MT) Radiology Report See Note (Normal) Comments: Exam Number: [id number] RIGHT SHOULDER, 4 VIEWS CLINICAL STATEMENTPain. PRIOR STUDIESNone. No acute fracture, joint dislocation or AC joint separation is shown. Joint spaces are maintained. No significa nt spurring or pathologiccalcifications. No suspicious bone lesions. Right lung apex isclear. IMPRESSIONNegative right shoulder. Reported By: LESLI CURIEL M.D. 73-Jqp-161534:15 GASTRIC EMPTYING STUDY Radiology Report See Note (Normal) Comments: Exam Number: [id number] NUCLEAR MEDICINE GASTRIC EMPTYING STUDY SOLID PHASE [...] II, controlled, with no complications : Reviewed Group Work Program Aide Letter Indication: Diabetes mellitus type II, controlled, [...] mellitus, well controlled Abscess, abdomen : Reviewed Group Work Program Aide Letter Indication: Abscess, abdomen Type II diabetes mellitus, well controlled : Eprescribed prescriptions (G8553) Indication: Type II diabetes mellitus, well controlled Abscess, abdomen : Reviewed Group Work Program Aide Letter- dr [facility] [...] : Follow up in 2 weeks with [facility] for diabetic teaching Indication: Other [...] disease) Planned Observations Rapid Strep Test, Office (52938)Indication: Sore throat On: 76-Eyz-839120:31 Request SED RATE ERYTHROCYTE (32905)Indication: Abscess, abdomen On: 16-Dec-2015 Request BACT CULTURE ANY-ANAEROBIC (09525)Indication: Abscess, abdomen On: 13-Dec-20157:42 Request CALCIFIDIOL (89786) VIT D 25Indication: Vitamin D deficiency, unspecified On: 01-Oxy-278187:30 Request CPK MB FRACTION (00087)Indication: Chest pain at rest On: 6-Wxk-393977:30 Request CREATINE KINASE TOTAL (76770)Indication: Chest pain at rest On: 8-Tmy-091386:30 Request Troponin I (95791)Indication: Chest pain On: 34-Xgp-246951:19 Request CPK MB FRACTION (50272)Indication: Chest pain On: 06-Npk-527151:19 Request CREATINE KINASE TOTAL (05426)Indication: Chest pain On: 27-Plh-249639:19 Request C-Reactive Protein (50713)Indication: Chest pain On: 65-Bzr-705742:19 Request Vitamin D Hydroxy (56305)Indication: Vitamin D deficiency, unspecified On: 63-Roy-27357:00 Request TSH (60642)Indication: Diabetes mellitus type II, controlled, with no complications On: :59 Request URINALYSIS, W/ MICRO (78678)Indication: Diabetes mellitus type II, controlled, with no complications On: :59 Request MICROALBUMIN: CREATININE RATIO (04930) AND (38649)Indication: Diabetes mellitus type II, controlled, with no complications On: :59 Request METABOLIC PANEL, COMPREHENSIVE (95181)Indication: Diabetes mellitus type II, controlled, with no complications On: 27-Wbr-81140:59 Request LIPID PANEL (39734)Indication: Hypercholesteremia On: :59 Request CBC W/AUTO DIFF WBC (30934)Indication: Diabetes mellitus type II, controlled, with no complications On: :59 Request Blood Glucose , Office (63160)Indication: Diabetes mellitus type II, controlled, with no complications On: 53-Wgz-41073:51 Request Lipid Panel (08255)Indication: Hypercholesteremia On: :10 Request HEPATIC FUNCTION PANEL (62468)Indication: Hypercholesteremia On: :10 Request LIPID PANEL (94867)Indication: Hypercholesteremia On: 34-Rlu-42533:48 Request CPK TOTAL & ISOENZYMES (95738)Indication: Epigastric pain On: :33 Request Urinalysis, Office (72057)Indication: Dysuria On: :01 Request CCP ANTIBODY (59972)Indication: Pain in joint, unspecified site On: 53-Fyk-25600:51 Request STEVE (ANTINUCLEAR ANTIBODY) (68311)Indication: Myalgia On: :24 Request CALCIFIDIOL (83909) VIT D 25Indication: Myalgia On: :20 Request TSH (25505)Indication: Myalgia On: :20 Request SED RATE ERYTHROCYTE (20957)Indication: Myalgia On: :20 Request STEVE (ANTINUCLEAR ANTIBODY) (84106)Indication: Myalgia On: 03-Awq-079845:20 Request Anti-Abigail-1 (62284)Indication: Myalgia On: :20 Request Creatine Kinase Total (82704)Indication: Myalgia On: :19 Request C-Reactive Protein (55214)Indication: Myalgia On: :19 Request HELICOBACTER PYLORI ANTIBODY (61016)Indication: Epigastric pain On: 86-Otn-130693:21 Request Planned Procedures B 12 Injection, 1000 mcg On: 05-Jan-2018 Intent (J3420)By: Leticia Pugh DO Comments: lot: [id number]: ite/route: R del/IMamt: 1mLVIS signed when applicableCRISTINO Casey DO, Kathleen B 12 Injection, 1000 mcg On: 09-Dec-2017 Intent (J3420)By: Leticia Pugh DO Comments: Vitamin B12 1000 mcg injectionLot--[id number]--jan 2019L Delt IMpt tolerated wellTLOCKLEAR, GREEN BUILDING DESIGN SPECIALIST Lexy ISAACS Leticia B 12 Injection, 1000 mcg On: 26-Nov-2017 Intent (J3420)By: Tammy Shaw Comments: lot:[id number]:jan 2019site/route:L deltoid amt:1ml 1,000mcg/mlJasmin, CCMA B 12 Injection, 1000 mcg On: 15-Nov-2017 Intent (J3420)By: Leticia Pugh DO Comments: lot: [id number]: 01/24site/route: L del/IMamt: 1mLVIS signed when applicableGailCRISTINO quezada DO, Kathleen INJECTION, VITAMIN B-12 On: 27-Oct-2017 Intent CYANOCOBALAMIN, UP TO 1000 MCG Comments: lot:[id number]:rte:IM right deltoid dose:1ml given by:fozia Overton LPN (Special Coverage Instructions Apply. See CIM: 45-4 and MCM: 2049) (J3420)By: Visit, Nurse B 12 Injection, 1000 mcg On: 15-Oct-2017 Intent (J3420)By: Visit, Nurse Comments: lot:[id number]:05/2019rte:IM left arm dose:1ml given by:fozia Overton LPN B 12 Injection, 1000 mcg On: 30-Sep-2017 Intent (J3420)By: Visit, Nurse Comments: [id number]/32031jq, 96492zqqp dltd, IMCM, ELECTRICAL INSTRUMENT TECHNICIAN B 12 Injection, 1000 mcg On: 16-Sep-2017 Intent (J3420)By: Rolando Calderon Comments: Vitamin b12 1000mcg injection lot:[id number]:05/2018L DELT IMpt tolerated well MSMITHDANIELN B 12 Injection, 1000 mcg On: 02-Sep-2017 Intent (J3420)By: Visit, Nurse Comments: 1 ml given rt arm lot [id number] EXP 05/24 B 12 Injection, 1000 mcg On: 19-Aug-2017 Intent (J3420)By: Rolando Calderon Comments: Vitamin b12 1000mcg injection lot:[id number]:12/2018L DELT IMpt tolerated well MSMITH,GREEN BUILDING DESIGN SPECIALIST B 12 Injection, 1000 mcg On: 06-Aug-2017 Intent (J3420)By: Leticia Pugh DO Comments: vitamin b12 1000mcg injectionlot: [id number]: 12/2018L DELT IMpt tolerated wellAD GREEN BUILDING DESIGN SPECIALIST Lexy DO, Leticia B 12 Injection, 1000 mcg On: 22-Jul-2017 Intent (J3420)By: Leticia Pugh DO Comments: Vitamin b12 1000mcg injection lot:[id number]:12/2018R DELT IMpt tolerated well MSMITH,GREEN BUILDING DESIGN SPECIALIST Lexy DO, Leticia B 12 Injection, 1000 mcg On: 09-Jul-2017 Intent (J3420)By: Leticia Pugh DO Comments: Vitamin b12 1000mcg injection lot:[id number]:12/2018L DELT IMpt tolerated well MSMITH,GREEN BUILDING DESIGN SPECIALIST Lexy DO, Leticia B 12 Injection, 1000 mcg On: 24-Jun-2017 Intent (J3420)By: Leticia Pugh DO Comments: vitamin b12 1000mcg injectionlot: 3609511.1exp: 12/2018L DELT IMpt tolerated wellAD GREEN BUILDING DESIGN SPECIALIST Lexy DO, Leticia B 12 Injection, 1000 mcg On: 11-Jun-2017 Intent (J3420)By: Tanvi Hawthorne CNP Comments: lot [id number] 07/2018rt iypo3847 mcgas, GREEN BUILDING DESIGN SPECIALIST B 12 Injection, 1000 mcg On: 28-May-2017 Intent (J3420)By: Visit, Nurse Comments: [id number] dltd, IM Toradol Injection, 30 mg On: 28-May-2017 Intent (J1885)By: Visit, Nurse Comments: 90205kl7/2019R hip, IM30mg/2 unitsMLONG, GREEN BUILDING DESIGN SPECIALIST Toradol Injection, 30 mg On: 21-May-2017 Intent (J1885)By: Leticia Pugh DO Comments: toradol 30mg injectionlot: 60-558-TLrmg: 10/2018L GMpt tolerated wellAD GREEN BUILDING DESIGN SPECIALIST Leticia Pugh DO X-RAY OF SACROILIAC JOINT On: 21-May-2017 Intent (57308)By: Leticia Pugh DO, DO, Kathleen B 12 Injection, 1000 mcg On: 13-May-2017 Intent (J3420)By: Visit, Nurse Comments: 6569153.74584jdF dltd, iMMEGAN, GREEN BUILDING DESIGN SPECIALIST B 12 Injection, 1000 mcg On: 29-Apr-2017 Intent (J3420)By: Leticia Pugh DO Comments: vitamin b12 1000mcg injectionlot: 3202242.1exp: 07/2018L DELT IMpt tolerated wellAD GREEN BUILDING DESIGN SPECIALIST Leticia Pugh DO B 12 Injection, 1000 mcg On: 16-Apr-2017 Intent (J3420)By: Yamilex Duffy Comments: vitamin b12 1000mcg injectionlot: 3394008.1exp: 07/2018L DELT IMpt tolerated wellAD GREEN BUILDING DESIGN SPECIALIST B 12 Injection, 1000 mcg On: 01-Apr-2017 Intent (J3420)By: Leticia Pugh DO Comments: vitamin b12 1000mcg injectionlot: [id number]: 07/2019L DELT IMpt tolerated wellAD GREEN BUILDING DESIGN SPECIALIST Leticia Pugh DO B 12 Injection, 1000 mcg On: 18-Mar-2017 Intent (J3420)By: Leticia Pugh DO Comments: Lot:[id number]:07/2018Dose:1mlRoute:IMSite:l arm Given By:LATANYA signed Leticia Pugh DO B 12 Injection, 1000 mcg On: 04-Mar-2017 Intent (J3420)By: Leticia Pugh DO, DO Leticia B 12 Injection, 1000 mcg On: 15-Feb-2017 Intent (J3420)By: Tanvi Hawthorne CNP Radiology - Toe(s) - LeftBy: On: 15-Feb-2017 Intent Tanvi Hawthorne CNP Comments: send to Dr Kebede B 12 Injection, 1000 mcg On: 18-Jan-2017 Intent (J3420)By: Leticia Pugh DO Comments: vitamin b12 1000mcg injectionlot: 7062exp: 04/2018L DELT IMpt tolerated wellAD GREEN BUILDING DESIGN SPECIALIST Lexy DO, Leticia B 12 Injection, 1000 mcg On: 01-Jan-2017 Intent (J3420)By: Leticia Pugh DO Comments: lot: [id number]: 04/26site/route: L del/IMamt: 1mLVIS signed when applicableChelsea, ELECTRICAL INSTRUMENT TECHNICIAN Lexy DO, Leticia B 12 Injection, 1000 mcg On: 18-Dec-2016 Intent (J3420)By: Leticia Pugh DO Comments: b12 1000mcg lot [id number]: 10/2017L Delt IMpt tolerated wellAD GREEN BUILDING DESIGN SPECIALIST Lexy DO, Leticia B 12 Injection, 1000 mcg On: 04-Dec-2016 Intent (J3420)By: Leticia Pugh DO Comments: Lot:[id number]:10/23Dose:1mlRoute:IMSite:l armGiven By:LATANYA signed Lexy DO, Leticia B 12 Injection, 1000 mcg On: 20-Nov-2016 Intent (J3420)By: Leticia Pugh DO Comments: Lot:[id number]:10/23Dose:1mlRoute:IMSite:l arm Given By:LATANYA signed Lexy DO, Leticia B 12 Injection, 1000 mcg On: 06-Nov-2016 Intent (J3420)By: Leticia Pugh DO Comments: lot: [id number]: ite/route: L del/IMamt: 1mLVIS signed when applicableChelsea, ELECTRICAL INSTRUMENT TECHNICIAN Lexy DO, Leticia B 12 Injection, 1000 mcg On: 23-Oct-2016 Intent (J3420)By: Visit, Nurse Comments: 2552925.02/201943417olRgoaa Dltd, IMmlong, health care aide B 12 Injection, 1000 mcg On: 08-Oct-2016 Intent (J3420)By: Leticia Pugh DO Comments: lot: [id number]: 18site/route: L del/IMamt: 1mLVIS signed when applicableChelsea, ELECTRICAL INSTRUMENT TECHNICIAN Lexy DO, Leticia B 12 Injection, 1000 mcg On: 17-Sep-2016 Intent (J3420)By: Visit, Nurse Comments: see flowsheet 1ml CRISTINO Solis B 12 Injection, 1000 mcg On: 04-Sep-2016 Intent (J3420)By: Leticia Pugh DO Comments: lot: [id number]: ite/route: R del/IMamt: 1mLVIS signed when applicablerubyARAVIND DO, Kathleen B 12 Injection, 1000 mcg On: 24-Aug-2016 Intent (J3420)By: Leticia Pugh DO Comments: Lot:[id number]:11/23Dose:1mlRoute:IMSite:l armGiven By:LATANYA signed Leticia Pugh DO B 12 Injection, 1000 mcg On: 19-May-2016 Intent (J3420)By: Christoph CHOPRATanvi Comments: Lot:[id number]:09/2017Dose:1mlRoute:IMSite:l armGiven By:LATANYA signed Wax CurettesBy: Christoph CHOPRA Tanvi On: 19-May-2016 Intent E Ear Irrigation (02674)By: Christoph On: 19-May-2016 Intent Tanvi CHOPRA B 12 Injection, 1000 mcg On: 08-Apr-2016 Intent (J3420)By: Leticia Pugh DO Comments: Lot:615Exp:06/23Dose:1mlRoute:IMSite:l arm Given By:LATANYA signed Leticia Pugh DO B 12 Injection, 1000 mcg On: 20-Mar-2016 Intent (J3420)By: Leticia Pugh DO Comments: lot: [id number]: ite/route: L del/IMamt: 1mLVIS signed when applicableCRISTINO Casey DO, Kathleen B 12 Injection, 1000 mcg On: 05-Mar-2016 Intent (J3420)By: Leticia Pugh DO Comments: B12lot:6202exp:ite:rt deltroute:imdose:1mlD.JEANMARIE Ray DO, Kathleen Radiology - Chest- PA and LatBy: On: 24-Feb-2016 Intent Lexy DO, Leticia Lexy DO, Leticia B 12 Injection, 1000 mcg On: 29-Jan-2016 Intent (J3420)By: Leticia Pugh DO Comments: B12lot:6185exp:ite:rt deltroute:IMdose:1mlD.JEANMARIE Ray DO, Leticia B 12 Injection, 1000 mcg On: 17-Jan-2016 Intent (J3420)By: Leticia Pugh DO Comments: Lot:[id number]:06/23Dose:1mlRoute:IMSite:l armGiven By:JKMVIS signed Lexy DO Leticia B 12 Injection, 1000 mcg On: 19-Dec-2015 Intent (J3420)By: Leticia Pugh DO Comments: 6185 lot# exp4/18 left deltiod Leticia Pugh DO CAT SCAN OF ABDOMEN (45876)By: On: 12-Dec-2015 Intent LexyLeticia bain DO Lexy DO Leticia B 12 Injection, 1000 mcg On: 06-Dec-2015 Intent (J3420)By: Leticia Pugh DO Comments: B12lot:6185exp:ite:lt deltroute:IMdose:1mlD.JEANMARIE Ray DO Leticia Rocephin Injection, 2 Gram On: 04-Dec-2015 Intent (J0696)By: Tammy Ortez DO Comments: lot: [id number]: 03/08/18site/route: RGM and LGM/IMamt: 2GVIS signed when applicableGaillscee, ELECTRICAL INSTRUMENT TECHNICIAN B 12 Injection, 1000 mcg On: 25-Nov-2015 Intent (J3420)By: Leticia Pugh DO Comments: Lot:615Exp:06/23Dose:1mlRoute:IMSite:l armGiven By:MLVIS signed Lexy DO, Leticia B 12 Injection, 1000 mcg On: 08-Nov-2015 Intent (J3420)By: Leticia Pugh DO Comments: 1000 mcglot 08532/18le dltdIARAVIND Stover Lexy DO, Leticia B 12 Injection, 1000 mcg On: 22-Oct-2015 Intent (J3420)By: Visit, Nurse Comments: 57875/181mlLdltdML, GREEN BUILDING DESIGN SPECIALIST B 12 Injection, 1000 mcg On: 03-Oct-2015 Intent (J3420)By: Henri Ray Comments: B12lot:6155exp:ite:rt deltroute:IMdose:1mlD.Emilynikolay JEANMARIE B 12 Injection, 1000 mcg On: 20-Sep-2015 Intent (J3420)By: Danika Caputo MD Comments: Lot:[id number]:07/23Dose:1mlRoute:IMSite:l armGiven By:LATANYA signed B 12 Injection, 1000 mcg On: 05-Sep-2015 Intent (J3420)By: Leticia Pugh DO Comments: B12lot:5200exp:07/22site:rt glutroute:imdose:1mlD.JEANMARIE Ray DO, Kathleen TD VACCINE ADULT (40624)By: On: 04-Apr-2015 Intent Henri Ray TDAP VACCINE >7 IM (10756)By: On: 04-Apr-2015 Intent Henri Ray Comments: Tdaplot:HK0BFvkp:01/24/17site:lt deltoidroute:ImDEJEANMARIE Lemos B 12 Injection, 1000 mcg On: 04-Apr-2015 Intent (J3420)By: Henri Ray Comments: B12lot:5310exp:11/22site: rt deltroute:MFwfuw7ilGUWJJC, [place] B 12 Injection, 1000 mcg On: 25-Feb-2015 Intent (J3420)By: Henri Ray Comments: B12lot:0009650ips:06/22site: rt delroute:IMdose:1mlDESHA B 12 Injection, 1000 mcg On: 28-Jan-2015 Intent (J3420)By: Leticia Pugh DO Comments: Lot:[id number]:06/22Dose:1mlRoute:IMSite:l armGiven By DEVIS signed Leticia Pugh DO B 12 Injection, 1000 mcg On: 01-Jan-2015 Intent (J3420)By: Leticia Pugh DO Comments: Lot:[id number]:06/22Dose:1mlRoute:IMSite:l armGiven By:LATANYA signed Lexy DO, Leticia B 12 Injection, 1000 mcg On: 03-Dec-2014 Intent (J3420)By: Leticia Pugh DO Comments: lot: [id number]: 05/22site/route: L del/IMamt: 0.5mLVIS signed when applicableCRISTINO Casey Lexy DO, Leticia B 12 Injection, 1000 mcg On: 13-Sep-2014 Intent (J3420)By: Leticia Pugh DO Comments: Lot:[id number]:11.16Route:IMSite:R deltoidDose: 1 mLgiven by: Altagracia Dumas CMA Lexy DO, Leticia B 12 Injection, 1000 mcg On: 05-Sep-2014 Intent ([email or web address])By: Leticia Pugh DO Comments: Lot:[id number]:316Route:IMSite:R deltoidDose: 1 mLgiven by: CRISTINO Mathew DO, Kathleen EKG ([id number])By: Lexy ISAACS, On: 05-Sep-2014 Intent Leticia Reza DO Comments: nsr no acute chg B 12 Injection, 1000 mcg On: 10-Aug-2014 Intent ([email or web address])By: Leticia Pugh DO Comments: Lot:[id number]:05/21Dose:1mlRoute:IMSite:l armGiven By:LATANYA signed Lexy DO Leticia B 12 Injection, 1000 mcg On: 09-Jul-2014 Intent ([id number])By: Leticia Pugh DO Comments: lot [id number] 05/21location L armroute imgiven by - msmith VIS and/or ABN signed Lexy DO, Leticia B 12 Injection, 1000 mcg On: 06-Jun-2014 Intent ([id number])By: Leticia Pugh DO Comments: Lot:[id number]:05/21Dose:1mlRoute:IMSite:l armGiven By:LATANYA signed Lexy DO, Leticia B 12 Injection, 1000 mcg On: 30-May-2014 Intent ([id number])By: Leticia Pugh DO Comments: Lot:[id number]:05/2015Dose:1mlRoute:IMSite:l armGiven By:CMVIS signed Leticia Pugh DO 12 Injection, 1000 mcg On: 23-May-2014 Intent ([id number])By: Leticia Pguh DO Comments: given in R dltd, Allie Leticia Pugh DO B 12 Injection, 1000 mcg On: 17-May-2014 Intent ([id number])By: Visit, Nurse Comments: [id number] Dltd, IMMegan, LPN1ml MRI - Brain (IV [...] Hawthorne CNP On: 29-Jan-2014 Intent E EKG ([id number])By: Lexy ISAACS, On: 30-Nov-2013 Intent Leticia Reza DO Comments: nsr no acute chg SPECIMEN HANDLING/TRANSPORT On: 20-Nov-2013 Intent ([id number])By: Tanvi Hawthorne CNP PNEUM VAC ADLT/IMUMNOSPR, On: 24-Nov-2012 Intent SBC/INTRM ([id number])By: Lexy ISAACS, Comments: lot: [id number]: 09/24/13site/route: L deltoid/IMamt: 0.5mLVIS signed when applicableChelscee, Leticia Crespo DO Ultrasound - ThyroidBy: Lexy On: 24-Nov-2012 Intent , Leticia Reza DO IMMUNIZ ADMNIN, 1 VAC, On: 24-Nov-2012 Intent SNGL/COMBO ([id number])By: Lexy DO, Leticia Lexy DO, Leticia Eprescribed prescriptions On: 24-Nov-2012 Intent ([id number])By: Carmela Chery EKG ([id number])By: Yennifer Loya On: 15-Aug-2012 Intent ARAVIND Comments: nsr no acute chg Eprescribed prescriptions On: 15-Aug-2012 Intent ([id number])By: Yennifer Loya LPN Eprescribed prescriptions On: 16-May-2012 Intent ([id number])By: Lexy DO, Leticia Lexy DO, Leticia Eprescribed prescriptions On: 15-Feb-2012 Intent ([id number])By: Yennifer Loya LPN EKG ([id number])By: Lexy ISAACS, On: 24-Sep-2011 Intent Leticia Lexy DO, Leticia Comments: nsr no acute chg Radiology - Lumbar SpineBy: On: 24-Sep-2011 Intent Lexy DO, Leticia Lexy DO, Leticia SPECIMEN HANDLING/TRANSPORT On: 27-Jan-2011 Intent ([id number])By: Tanner NAZARIO, Enid CALIX, SPLIT, >3 YEARS, On: 17-Dec-2010 Intent INTRAMUSC ([id number])By: Lexy ISAACS, Comments: pt refused Leticia Lexy DO, Leticia Radiology - Knee - RightBy: On: 29-Sep-2010 Intent Lexy DO, Leticia Lexy DO, Leticia Radiology - Knee - LeftBy: On: 29-Sep-2010 Intent Lexy DO, Leticia Lexy DO, Leticia Eprescribed prescriptions On: 29-Sep-2010 Intent ([id number])By: Lexy DO, Leticia Lexy DO, Leticia Doppler Ultrasound OtherBy: On: 15-Sep-2010 Intent Lexy DO, Leticia Lexy DO, Comments: both legs-- calf pain and one calf bigger than other Leticia Nuclear Medicine - HIDA w/CPKBy: On: 29-May-2010 Intent Mast Dori MORRISON Comments: hida with cck Ultrasound - GallbladderBy: On: 19-May-2010 Intent Lexy DO, Leticia Lexy DO, Leticia Nuclear Medicine - ThyroidBy: On: 27-Aug-2008 Intent Tanvi Hawthorne CNP CT - ChestBy: Patito VIDALES, Danika Baer On: 07-Aug-2008 Intent Comments: ATTENTION SUPRACLAAVICULAR AREA MRI - Shoulder(s) - RightBy: On: 31-May-2008 Intent Leticia Pugh DO, DO, Kathleen Radiology - Shoulder - RightBy: On: 14-May-2008 Intent Lexy DO, Leticia Pugh DOLeticia EKG ([id number])By: Lexy ISAACS, On: 18-May-2007 Intent Leticia Reza DO Comments: NSR NO ACUTE ISCHEMIC CHANGES Planned Medications INJECTION, CEFTRIAXONE SODIUM, PER 250 MG Ordered: 04-Dec-2015 Pending Fast DO, Tammy A INJECTION, KETOROLAC TROMETHAMINE, PER 15 MG Ordered: 28-May-2017 Pending Visit, Nurse INJECTION, KETOROLAC TROMETHAMINE, PER 15 MG Ordered: 21-May-2017 Pending Lexy DO, Leticia Lexy DO, Leticia [...] MCG/ML Injection Solution Ordered: 06-Aug-2017 Pending Lexy DOLeticiaon DO, Leticia Vitamin B-12 1000 MCG/ML Injection [...] 1000 MCG/ML Injection Solution Ordered: 15-Nov-2017 Pending Leticia Pugh DOon DO, Leticia Vitamin B-12 1000 MCG/ML Injection [...] MCG/ML Injection Solution Ordered: 25-Feb-2015 Pending [place], [place] Vitamin B-12 1000 MCG/ML Injection Solution Ordered: 04-Apr-2015 Pending [place], [place] Vitamin B-12 1000 MCG/ML Injection Solution Ordered: [...] 1000 MCG/ML Injection Solution Ordered: 05-Jan-2018 Pending Leticia Pugh DO, DO, Kathleen Instructions Name Dates Details Nonsmoker : How [...] Advance Directives Name Dates Details Immunization Registry [employer] - Effective on Effective: 17-Nov-201711/17/2017. Expiration date unspecified Encounters Office Visit On: 05-Jan-2018 10:54 Encounter Reason: [...] Urinary problems: [facility] had urine negEncounter Diagnosis: BMI 32.0-32.9,adult, [...] include fatigue. Note for Cellulitis: started wednesday- give her self victoza and then took [...] for Tdap vaccination (Renamed from Need for fzobuxfecs-cxrdhjc-yykurxake (Tdap) vaccine, adult/adolescent) End: 04-Apr-2015 15:25 Comprehensive [...] Follow up tests - Date: (6. and 5.). Encounter Diagnosis: PRE-OPERATIVE EXAMINATION, UNSPECIFIED (V72.84), Vitamin [...] Internal Medicine End: 29-Mar-2006 15:38 Payers Moreno Ramos; franc guarantor
--- OUTSIDE RECORDS SUMMARY | 2018-04-04 16:03 | XMS RPT_ITS | Continuity of Care Document ---
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 tinnitis clinic at [facility] >pt to look into - [...] DO, DO, Kathleen Start : 19-Aug-2016 Active SASH CLAMP OPERATOR Thyroid 30 MG Oral Tablet 1 (one) Tablet Tablet daily as directed for 0 days Quantity: 30 {Tablet} Refills: 5 Ordered:13-May-2017 Shari Pugh DO, DO, Kathleen Start : 04-Mar-2017 Active [place] 31G X 6 MM Miscellaneous 1 Misc [...] : 17-Nov-2010 End : 17-Dec-2010 Inactive DRISDOL, 62099MKWV (Oral Capsule) 1 Capsule 2 xweek for [...] 09-Oct-2011 End : 14-Oct-2011 Inactive Comments:twenty ZOSTAVAX, 85746MDM/0.65ML (Subcutaneous Solution Reconstituted) 1 For Solution x1 [...] 17-Nov-2010 End : 17-Nov-2010 Discontinued Comments:diarrhea ERGOCALCIFEROL, 80264WNKC (Oral Capsule) 1 (one) Capsule q week [...] for Tdap vaccination (Renamed from Need for jzrwyebiwr-ldchwcr-svrhjvbsr (Tdap) vaccine, adult/adolescent) (Z23, V06.1) Status: Inactive [...] Contrast Result: Comments: See Note; NOTES: [facility] Cardiovascular Services [address] [place] [address] Stress Test Echo W/Contrast MR#: [id number] Acct: [id number] Name: RADHA RAMOS Rep #: [id number] : 1955 62 From: Marcus Sánchez MD Primary Care: Leticia Pugh DO Status: REG CLI Ordering Dr: Larry Ngo SASH CLAMP OPERATOR-C Sex: F C Stress Results Protocol: Stress [...] ventricular couplets / triplets during recovery [facility] good Stopped secndary to: dyspnea. [...] Dictated: 12/14/17 1343 Date Transcribed: 12/14/17 1521 Jackhammer Splitter Operator: Signed 10-Dec-2017 PT D/C Summary (1) Result: Comments: See Note; NOTES: [facility] [place] [address] [facility] [place] [address] Fax [facility]HABILITATION SERVICES [facility] MR#: [id number] Acct: [id number] Name: RADHA RAMOS Rep #: [id number] [...] please feel free to call me at [phone]. T elton you for the referral of this patient. Sincerely, Morgan Barnes PT, <Electronically signed by Morgan Barnes PT, Cert. MDT, [facility]> 12/10/17 0758 CC: Leticia Pugh DO; Gloria KNAPP Presh JOSSELINE Signed 07-Dec-2017 Cardiology Visit Report Result: Comments: See Note; NOTES: [facility] [address] [place] [address] OFFICE VISIT Date of Service: 12/07/17 MR#: [id number] Acct: [id number] Name: RADHA RAMOS Rep #: [id number] : 1955 Provider: DEMETRICE Ngo Age/Sex: 62/F [place] [facility] Status: Signed HPI HPI Details: RADHA RAMOS, [...] 12/07/17 0958 <Electronically signed by Larry Ngo SASH CLAMP OPERATOR-C> Date Larry Ngo SASH CLAMP OPERATOR-C Cosigner Signature: Date (if applicable) CC: Leticia Pugh DO 07-Dec-2017 12 Lead EKG performed by [facility] Result: Comments: See Note; NOTES: [facility] [address] [place] [address] 12 Lead EKG performed by [facility] 12/07/17910 MR#: [id number] Acct: [id number] Name: RADHA RAMOS Rep #: [id number] : 1955 62 From: Larry Ngo NP-C Attending Dr: Larry Ngo SASH CLAMP OPERATOR Status: DEP AMB Ordering Dr: Larry NgoC Date: 12/07/17 Location[place] [facility] Sex: F C Admitted: ORD ER #: [id number] /12 Lead EKG performed by [facility] 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 - Nonspecific T-abnormality. BNORMAL 12/07/17 1257 <Electronically signed by Larry Ngo SASH CLAMP OPERATOR-C&amp ;#62; Date Larry gNo SASH CLAMP OPERATORRogelioC CC: Leticia Pugh DO Date Dictated: 12/07/17910 Date Transcribed: 12/07/17910 Jackhammer Splitter Operator: ISABEL Signed 07-Dec-2017 12 Lead EKG performed by [facility] Result: Comments: See Note; NOTES: [facility] [address] [place] [address] 12 Lead EKG performed by [facility] 12/07/17910 MR#: [id number] Acct: [id number] Name: RADHA RAMOS Rep #: [id number] : 1955 62 From: Larry SPEARC Attending Dr: Larry Ngo NP Status: DEP AMB Ordering Dr: Larry Ngo Date: 12/07/17 Location: [facility] Sex: F C Admitted: ORD ER #: [id number] BMS/12 Lead EKG performed by [facility] ECG Report Interpretation Sinus Rhythm Poor R wave progressionElectronically signed on 12/08/2017 at 17:44 by Marcus SánchezeBillme Software Version 8610 12/08/17 1746 Date Larry KNAPP CC: Leticia Pugh DO Date Dictated: 12/07/17910 Date Transcribed: 12/07/17910 Jackhammer Splitter Operator: ISABEL Signed 28-Oct-2017 Inital Evaluation (1) - PT Result: Comments: See Note; NOTES: [facility] [address] [place], [place] [address] Fax REHABILITATION SERVICES INITIAL EVALUATION MR#: [id number] Acct: [id number] Name: RADHA RAMOS Rep #: [id number] [...] : No effect Lumbar Standing: Right Side [place] - Symptoms During Testing: Increases Lumbar Standing: Right Side [place] - Symptoms After Testing: No worse Lumbar Standing: Left Side [place] - Mechanical Resp onse: No effect Lumbar Standing: Left Side [place] - Symptoms During Testing: Increases Lumbar Standing: Left Side [place] - Symptoms After Testing: No worse Lumbar [...] to be FAXED BACK to us at [phone] for Medicare purposes. Please let me know [...] Report Result: Comments: See Note; NOTES: [facility] Medical Records Department [address] [place] [address] Downtime Report MR#: [id number] Acct: [id number] Name: RADHA RAMOS Rep #: [id number] : 1955 61 From: Herrera Hennessy PCP: Leticia Pugh DO Status: REG CLI This patient was seen during an EMR downtime August 09, 2017 - August 16, 2017. This patient may have a combination of paper and electronic documentation or all paper documentation. All documentation is viewable within the e-chart portion of Food and Beverage for each patient visit. 21-Jul-2017 L/S Spine Min 4 Views Result: Comments: See Note; NOTES: [facility] Imaging Services [address] [place] [address] L/S Spine Min 4 Views MR#: [id number] Acct: [id number] Name: RADHA RAMOS Rep #: [id number] : 1955 F 61 From: Durga Peñaloza MD PCP: Leticia Pugh DO Status: REG CLI Study: L/S Spine Min 4 Views Date of Exam: 07/21/17 Exam# [id number] Ordering Dr: Joey Greer MD STUDY: X [...] , CC: Joey Greer; Leticia Pugh DO Jackhammer Splitter Operator: Signed 25-Jun-2017 Cardiology Visit Report Result: Comments: See Note; NOTES: [facility] [address] [place] [address] OFFICE VISIT Date of Service: 06/24/17 MR#: [id number] Acct: [id number] Name: RADHA RAMOS Rep #: [id number] : 1955 Provider: Nimco Vasquez Age/Sex: 61/F [place] [facility] Status: Signed HPI HPI Details: RADHA RAMOS, [...] Pressure 138/82 Intake Visit Reasons: 6 M Manager Statistical Required: No Accompanied by: none Is patient [...] Views Result: Comments: See Note; NOTES: [facility] Imaging Services [address] [place] [address] S-I Jts 3 or More Views MR#: [id number] Acct: [id number] Name: RADHA RAMOS Rep #: [id number] : 1955 F 61 From: Frederick Pemberton MD PCP: Leticia Pugh DO Status: REG CLI Study: S-I Jts 3 or More Views Date of Exam: 05/21/17 Exam# [id number] Ordering Dr: Leticia Pugh DO STUD Y: [...] Service support , CC: Leticia Pugh DO Jackhammer Splitter Operator: Signed 17-Mar-2017 Abdomen/Pelvis without Cont Result: Comments: See Note; NOTES: [facility] Imaging Services [address] [place] [address] Abdomen/Pelvis without Cont MR#: [id number] Acct: [id number] Name: RADHA RAMOS Rep #: [id number] : 1955 F 61 From: Rahel Salazar MD PCP: Leticia Pugh DO Status: REG CLI Study: Abdomen/Pelvis without Cont Date of Exam: 03/17/17 Exam# [id number] Ordering Dr: Casimiro Saravia MD STUDY: CT [...] at 16:04 EST Tel , Service support [phone], CC: Casimiro Saravia MD; Leticia Pugh DO Jackhammer Splitter Operator: Signed 15-Feb-2017 Toe(s) Min 2 Views Result: Comments: See Note; NOTES: [facility] Imaging Services [address] [place] [address] Toe(s) Min 2 Views MR#: [id number] Acct: [id number] Name: RADHA RAMOS Rep #: [id number] : 1955 F 61 From: Juan Henriquez MD PCP: Leticia Pugh DO Status: REG CLI Study: Toe(s) Min 2 Views Date of Exam: 02/15/17 Exam# [id number] Ordering Dr: Tanvi Hawthorne STUDY: X-RAY LEFT [...] , Service support , CC: Tanvi Hawthorne SASH CLAMP OPERATOR; Leticia Pugh DO Jackhammer Splitter Operator: Signed 22-Dec-2016 Stress Test Echo w/o Contrast Result: Comments: See Note; NOTES: [facility] Cardiovascular Services [address] [place] [address] Stress Test Echo w/o Contrast MR#: [id number] Acct: [id number] Name: RADHA RAMOS Rep #: [id number] : 1955 61 From: Marcus Sánchez MD [...] Performed By: Millie Torrez, RDWENDY, RVT 12/22/16 1204 Date Marcus Sánchez MD CC: Leticia Pugh DO; Marcus Sánchez MD Date Dictated: 12/22/16 1307 Date Transcribed: 12/22/16 170 Jackhammer Splitter Operator: Signed 19-Nov-2016 12 Lead Electrocardiogram Result: Comments: See Note; NOTES: [facility] Cardiovascular Services [address] [place] [address] 12 Lead EKG 11/14/16156 MR#: [id number] Acct: [id number] Name: RADHA RAMOS Rep #: [id number] : 1955 61 From: Guevara Casanova MD [...] Confirmed by SAMANTHA LI MD, GUEVARA ([id number]), offline editor JUNE HENNESSY ([id number]) on 11/16/2016 1:29:52 PM Referred By: GAL Confirmed By:GUEVARA CASANOVA MD 11/16/16 1329 Date Guevara Casanova MD CC: Leticia Pugh DO Date Dictated: 11/14/16156 Date Transcribed: 11/14/16156 Jackhammer Splitter Operator: Signed 14-Nov-2016 Discharge Instruction Result: Comments: See Note; NOTES: [facility] Medical Records Department [address] [place] [address] Discharge Instruction 11/14/16 0345 MR#: [id number] Acct: [id number] Name: JEANMARIE RAMOS Rep #: [id number] : 1955 61 From: Roscoe Diaz MD [...] your Primary Care Provider. Call [facility] ([phone]) or report to the closest Emergency Room. Call 911 if necessary. 11/14/16 0637 <Electronically signed by Roscoe Diaz MD> Date Roscoe Maher Cosigner Signature (If Indicated): Date CC: Leticia Pugh DO 14-Nov-2016 Emergency Department Summary Result: Comments: See Note; NOTES: [facility] Medical Records Department [address] [place] [address] Emergency Department Summary 11/14/16 0343 MR#: [id number] Acct: [id number] Name: RADHA RAMOS Rep #: [id number] : 1955 61 From: Roscoe Diaz MD [...] your Primary Care Provider. Call [facility] ([phone]) or report to the closest Emergency Room. Call 911 if necessary. 11/14/16 0636 <Electronically kristin d by Roscoe Diaz MD> Date Roscoe Diaz MD Cosigner Signature (If Indicated): Date CC: Leticia Pugh 14-Nov-2016 Chest 1 View (Portable) Result: Comments: See Note; NOTES: [facility] Imaging Services [address] [place] [address] Chest 1 View (Portable) MR#: [id number] Acct: [id number] Name: RADHA RAMOS Rep #: [id number] : 1955 F 61 From: Nelson Coronado PCP: Leticia Pugh DO Status: REG ER Study: Chest 1 View (Portable) Date of Exam: 11/14/16 Exam# [id number] Ordering Dr: Roscoe Diaz MD STUDY: X- [...] CC: Leticia Pugh DO; Roscoe Diaz MD Jackhammer Splitter Operator: Signed 13-Nov-2016 US Thyroid Biopsy Result: Comments: See Note; NOTES: [facility] Imaging Services [address] [place] [address] US Thyroid Biopsy MR#: [id number] Acct: [id number] Name: RADHA RAMOS Rep #: [id number] OB: 1955 F 61 From: Ross Saxena MD PCP: Leticia Pugh DO Status: REG CLI Study: US Thyroid Biopsy Date of Exam: 11/13/16 Exam# [id number] Ordering Dr: James Casey MD STUDY: THYROID [...] Ross Saxena MD at 12:24 EDT Tel [phone], Service support , CC: James Casey MD; Leticia Pugh DO Jackhammer Splitter Operator: Signed 24-Sep-2016 Thyroid Result: Comments: See Note; NOTES: [facility] Imaging Services [address] [place] [address] [address] 4d Thyroid MR#: [id number] Acct: [id number] Name: RADHA RAMOS Rep #: [id number] : 1955 F 60 From: Kalpana Sharp MD PCP: Leticia Pugh DO Status: REG CLI Study: Thyroid Date of Exam: 09/24/16 Exam# [id number] Ordering Dr: Lety Ball SASH CLAMP OPERATOR-C STUDY: THYROID ULTRASOUND REASON FOR EXAM: Female, [...] , Service support , CC: Lety Ball SASH CLAMP OPERATOR; Leticia Pugh DO Jackhammer Splitter Operator: Signed 11-Aug-2016 SCREENING MAMM (CAD), BILAT Result: Comments: See Note; NOTES: [facility] Imaging Services [address] [place] [address] Verdana 4d SCREENING MAMM (CAD), BILAT MR#: [id number] Acct: [id number] Name: SHELDONRADHA Harsh Rep #: [id number] : 1955 F 60 From: Ross Saxena MD PCP: Leticia Pugh DO Status: [facility] Study: SCREENING MAMM (CAD), BILAT Date of Exam: 08/11/16 Exam# [id number] Ordering Dr: Zhane Martinez MD MAMMOGRAPHY - [...] delay biopsy of a clinically suspicious abnormality. [id number] Electronically Signed: Ross Saxena MD at 13:32 EDT Tel [phone], Service support , CC: Zhane Angeles MD; Leticia Pugh DO Jackhammer Splitter Operator: Signed 17-Jul-2016 Upper GI w/BA Swallow Result: Comments: See Note; NOTES: [facility] Imaging Services [address] [place] [address] Verdana 4d Upper GI w/BA Swallow MR#: [id number] Acct: [id number] Name: RADHA RAMOS Rep #: [id number] : 1955 F 60 From: Coreen Mata MD PCP: Leticia Pugh DO Status: REG CLI Study: Upper GI w/BA Swallow Date of Exam: 07/17/16 Exam# [id number] Ordering Dr: James Garrido MD CLINICAL HISTORY: [...] , CC: Leticia Pugh DO; James Garrido Jackhammer Splitter Operator: Signed 27-Feb-2016 Chest PA and Lateral Result: Comments: See Note; NOTES: [facility] Imaging Services [address] [place] [address] Ver[address] 4d Chest PA and Lateral MR#: [id number] Acct: [id number] Name: RADHA RAMOS Rep #: [id number] : 1955 F 60 From: Segun Loomis MD PCP: Leticia Pugh DO Status: REG CLI Study: Chest PA and Lateral Date of Exam: 02/27/16 Exam# [id number] Ordering Dr: Leticia Pugh DO STUD Y: [...] at 15:10 EST Tel , Service support [phone], CC: Leticia Pugh DO Jackhammer Splitter Operator: Signed 24-Feb-2016 W[facility]al C[facility] Progress Note Result: Comments: See Note; NOTES: [facility] [address] [place] [address] [facility] Progress Note 02/24/16 1305 MR#: [id number] Acct: [id number] Name: Keyur RAMOS Rep #: [id number] : 1955 60 From: Ruslan Sesay MD [...] Lisa betes mellitus retirement insulin use: with retirement use Laterality: L Chronic kidney disease stage: C Qualified Code(s): E11.9 - Type 2 diabetes mellitus without complications; Z79.4 - retirement (curre nt) use of insulin Code(s): E11.9 [...] Date Recorded By Document 02/24/16 12:35 CHRIS [id number] 02/24/16 12:38 CHRIS 02/24/16 12:35 Wound Center [...] Date Recorded By Document 02/24/16 12:38 CHRIS [id number] 02/24/16 12:39 CHRIS 02/24/16 12:38 Wound Center [...] after Cleansing No -Bioengineered Tissue No -Cetacaine [place] No -Bleedin g Controlled with NA -Treatment [...] Recorded Date Recorded By Document 02/24/16 12:38 [facility] 993 02/24/16 12:39 CHRIS 02/24/16 12:38 [...] ter Cleansing No -Bioengineered Tissue No -Cetacaine [place] No -Bleeding Controlled with NA -Treatment Response [...] Note Result: Comments: See Note; NOTES: [facility] [address] [place] [address] [facility]al [facility] Progress Note 02/10/16 1325 MR#: [id number] Acct: [id number] Name: Keyur RAMOS Rep #: [id number] : 1955 60 From: Ruslan Sesay MD [...] mellitus macular edema: D Diab etes mellitus intermodal customer service insulin use: with intermodal customer service use Laterality: L Chronic kidney disease stage: C Qualified Code(s): E11.9 - Type 2 diabetes mellitus without complications; 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 Code(s): E11.9 [...] Date Recorded By Document 02/10/16 13:01 DL [id number] 02/10/16 13:07 DL 02/10/16 13:01 Wound Center Nurse 1 [Ulcer Assessment] 1-abdomen -Current Size (cm) - Length 0 -Current Size (cm) - Width 0 -Current Size (cm) - Depth 0 -Total Square Cm 0 -Photo Take n Yes -Exudate Amt None Present (0 %) -Wound Margin Flat AND Intact -Granulation Amt Large (67-100%) -Granulation Quality [place] -Necrosis Amt None Present (0 %) -Structure [...] Date Recorded By Document 02/10/16 13:15 MW [id number] 02/10/16 13:17 MW 02/10/16 13:15 Wound Center Nurse 2 [P rocedure/Treatment] -Time 13:16 -Correct Patient Yes -Correct Side, Site, Position Yes -Correct Procedure Yes -Procedure Performed No -Wound/Ulcer Outcome Not Healed -Ulcer Cleansing Not Cleansed -Foul Odor after Cleansing No -Bioengineered Tissue No -Cetacaine [place] No -Topical Lidocaine (%) 4 -Lidocaine (ml) [...] Date Recorded By Document 02/10/16 13:15 MW [id number] 02/10/16 13:17 MW 02/10/16 13:15 Wound Center Nurse 2 1-abdomen -Time 13:16 - Correct Patient Yes -Correct Side, Site, Posi tion Yes -Correct Procedure Yes -Procedure Performed No -Wound/Ulcer Outcome Not Healed -Ulcer Cleansing Not Cleansed -Foul Odor after Cleansing No - Bioengineered Tissue No -Cetacaine [place] No -Topical Lidocaine (%) 4 -Lidocaine (ml) [...] Note Result: Comments: See Note; NOTES: [facility] Wound [facility]aling [facility] [place] [address] Wound Heal Ctr Progress Note 02/03/16 1336 MR#: [id number] Acct: [id number] Name: Keyur RAMOS Rep #: [id number] : 1955 60 From: Ruslan Sesay MD [...] Diabetes mellitus macular edema: D Diabetes mellitus intermodal customer service insulin use: with retirement use Latera lity: [...] Recorded Date Recorded By Document 13:02 DL [id number] 02/03/16 13:09 DL 02/03/16 13:02 Wound Center Nurse 1 [Ulcer Assessment] 1-abdomen -Current Size (cm) - Length 0.5 -Current Size (cm) - Width 2.4 -Current Size (cm) - Depth 0.3 -Tota l Square Cm 1.20 -Photo Taken No -Exudate Amt Small (1-33%) -Exudate Type Serosanguineous -Wound Margin Distinct, Outline Attached -Granulation Amt Large (67-100%) - Granulation Quality [place] -Necrosis Am t Small (1-33%) -Necrotic Tissue [...] Date Recorded By Document 02/03/16 13:28 CHRIS [id number] 02/03/16 13:32 CHRIS 02/03/16 13:28 Wound Center [...] Cleansing No -Bioengi neered Tissue No -Cetacaine [place] No -Topical Lidocaine (%) 4 -Lidocaine (ml) [...] Date Recorded By Document 02/03/16 13:28 CHRIS [id number] 02/03/16 13:32 JS 02/03/16 13:28 Wound Center [...] after Cleansing No -Bioengineered Tissue No -Cetacaine [place] No -Topical Lidocaine (%) 4 -Lidocaine (ml) [...] Note Result: Comments: See Note; NOTES: [facility] [address] [place] [address] W[facility] Progress Note 01/27/16 1333 MR#: [id number] Acct: [id number] Name: Keyur RAMOS Rep #: [id number] : 1955 60 From: Ruslan Sesay MD [...] Diabetes mellitus macular edema: D Diabetes mellitus intermodal customer service insulin use: with retirement use Laterali ty: [...] Recorded Date Recorded By Document 01/27/16 12:44 [id number] 01/27/16 12:54 01/27/16 12:44 Wound Center Nurse [...] Date Recorded By Document 01/27/16 13:23 MW [id number] 01/27/16 13:31 MW 01/27/16 13:23 Wound Center Nurse 2 [Procedure/Treatment] 1-abdomen -Time 13 :24 -Correct Patient Yes -Correct Side, Site, Position Yes -Correct Procedure Yes -Procedure Performed No -Wound/Ulcer Outcome Not Healed -Ulcer Cleansing Rinsed/ Irrigated with Saline -Foul Odor after Cleansing No -Bioengineered Tissue No -Cetacaine [place] No -Bleeding Controlled with NA [See Physician [...] Date Recorded By Document 01/27/16 13:23 MW [id number] 01/27/16 1 3:31 MW 01/27/16 13:23 Wound Center Nurse 2 1-abdomen -Time 13:24 -Correct Patient Yes -Correct Side, Site, Position Yes -Correct Procedure Yes -Procedure Performed No -Wound/Ulcer Outcome Not Healed - Ulcer Cleansing Rinsed/ Irrigated with Saline -Foul Odor after Cleansing No -Bioengineered Tissue No -Cetacaine [place] No -Bleeding Controlled with NA No debridement [...] Note Result: Comments: See Note; NOTES: [facility] [address] [place] [address] [facility]al C[facility] Progress Note 01/20/16 1521 MR#: [id number] Acct: [id number] Name: RADHA RAMOS Rep #: [id number] : 1955 60 From: Ruslan Sesay MD [...] Diabetes mellitus complication status: without complication Diabetes [facility] retirement insulin use: with intermodal customer service use Qualifier Code : (E11.9) Type 2 [...] Record ed By Document 01/20/16 14:33 DL [id number] 01/20/16 14:36 DL 01/20/16 14:33 Wound Center [...] Recorded Date Recorded By Document 01/20/16 15:06 [id number] 01/20/16 15:07 JS 01/20/16 15:06 Wound Center Nurse 2 [Procedure/Treatment] -Time 15:06 -Correct Patient Yes -Correct Side, Site, Position Yes -Correct Procedure Yes -Procedure Performed No -Wound/Ulcer Outcome Not Healed -Ulcer Cleansing Rinsed/ Irrigated with Saline -Foul Odor after Cleansing No -Bioengineered Tissue No - Cetacaine [place] No [See Physician Procedure note for Specifics] [...] Recorded Date Recorded By Document 01/20/16 15:06 [id number] 01/20/16 15:07 JS 01/20/16 15:06 Wound Center Nurse 2 1-abdomen -Time 15:06 - Correct Patient Yes -Correct Side, Site, Po sition Yes -Correct Procedure Yes -Procedure Performed No -Wound/Ulcer Outcome Not Healed -Ulcer Cleansing Rinsed/ Irrigated with Saline -Foul Odor after Cleansing No -Bioengineered Tissue No -Cetacaine [place] No No debridement was completed today Assessment/Plan [...] Note Result: Comments: See Note; NOTES: [facility] [address] [place] [address] [facility]al C[facility] Progress Note 01/06/16 1307 MR#: [id number] Acct: [id number] Name: RADHA RAMOS Rep #: [id number] : 1955 60 From: Ruslan Sesay MD [...] Wound, open, abdominal wall, anterior Status: Ac [place] Current Visit: Yes Qualifiers: Encounter type: subsequent [...] patient was then referred to the Wound [facility] for further management. Progress of [...] Date Recorded By Document 01/06/16 12:42 TM [id number] 01/06/16 12:51 TM 01/06/16 12:42 Wound Center [...] Date Recorded By Document 01/06/16 12:54 DV [id number] 01/06/16 13:00 DV 01/06/16 12:54 Wound Center Nurse 2 [Procedure/Treatment] -Time 12:59 -Correct Patient Yes -Correct Side, Site, Position Yes -Correct Procedure Yes -Procedure Performed No -Wound/Ulcer Outcome Not Healed -Ulcer Cleansing Rinsed/ Irrigated with Saline -Foul Odor after Cleansing No -Bioengineered Tissue No -Cetacaine [place] No -Bleeding Controlled with NA -Treatment Response [...] Date Recorded By Document 01/06/16 12:54 DV [id number] 01/06/16 13:00 DV 01/06/16 12:54 Wound Center Nurse 2 1-abdomen -Time 12:59 -Correct Patient Yes -Correct Side, Site, Position Yes -Tamar ect Procedure Yes -Procedure Performed No -Wound/Ulcer Outcome Not Healed -Ulcer Cleansing Rinsed/ Irrigated with Saline -Foul Odor after Cleansing No - Bioengineered Tissue No -Cetacaine [place] No -Bleed ing Controlled with NA -Treatment Response Procedure Tolerated Well No debridement was completed today Assessment/Plan Active Problems Abscess of abdominal wall (Acute) Wound, open, abdominal wall, anterior (Acute) Diabetes mellitus (Chronic) Assessment: This is a 60-year-old diabetic female who is in her normal state of health until approximately 3 weeks prior to presentation, at [facility] time she developed an abscess [...] Note Result: Comments: See Note; NOTES: [facility] [address] [place] [address] [facility]al [facility] Progress Note 12/30/15 1625 MR#: [id number] Acct: [id number] Name: RADHA RAMOS Rep #: [id number] : 1955 60 From: Ruslan Sesay MD [...] Wound, open, abdominal wall, anterior Status: Ac [place] [place] Current Visit: Yes Qualifiers: Encounter type: subsequent [...] Date Recorded By Document 6 14:19 TM [id number] 12/30/15 14:37 TM 12/30/15 14:19 Wound Center [...] Thickened -Granulation Amt Small (1-33%) -Granulation Quality [place] Red -Slough/Fibrin Yes -Necro sis Amt Small [...] Recorded Date Recorded By Document 12/30/15 16:21 [id number] 12/30/15 16:22 12/30/15 16:21 Wound Center Nurse 2 [P rocedure/Treatment] 1-abdomen -Time 16:21 -Correct Patient Yes -Correct Side, Site, Position Yes -Correct Procedure Yes -Procedure Performed No -Wound/Ulcer Outcome Not Healed -Ulcer Cleansing Rinsed/ I rrigated with Saline -Foul Odor after Cleansing No -Bioengineered Tissue No -Cetacaine [place] No -Bleeding Controlled with NA -Treatment Response [...] Recorded Date Recorded By Document 12/30/15 16:21 [id number] 12/30/15 16:22 12/30/15 16:21 Wound Center Nurse 2 1-abdomen -Time 16:21 -Correct Patient Yes -Correct Side, Site, Position Yes -Correct Procedure Yes -Procedure Performed No -Wound/Ulcer Outcome Not Healed -Ulcer Cleansing Rinsed/ Irrigated with Saline -Foul Odor after Cleansing No -Bioengi neered Tissue No -Cetacaine [place] No -Bleeding Controlled with NA -Treatment Response [...] Physical Result: Comments: See Note; NOTES: [facility] [address] [place] [address] Wound Ctr History AND Physical 12/23/15 1708 MR#: [id number] Acct: [id number] Name: RADHA TERRY Rep #: [id number] : 1955 60 From: Ruslan Sesay MD PCP: Leticia Pugh DO Status: REG RCR Y Location: WC (1) Abscess of abdominal wall Status: Acute Current Visit: Yes Code: L02 .211 (2) Diabetes mellitus Status: Chronic Current Visit: Yes Qualifiers: Diabetes mellitus type: type 2 Diabetes mellitus complication status: with skin complications Diabetes mellitus complication de tail: with other skin complication Diabetes mellitus retirement [...] tumor. Social History: The patient works for [employer] as a [employer] Lives: Spouse/ Significant Other Smoking Status: Never [...] Recorded Date Recorded By Document 12/23/15 15:16 [id number] 12/23/15 15:38 MAURILIO 12/23/15 15:16 Wound Center [...] Recorded Date Recorded By Document 12/23/15 16:42 [id number] 12/23/15 16:44 12/23/15 16: 42 Wound Center Nurse 2 [Procedure/Treatment] 1-abdomen -Time 16:42 -Correct Patient Yes -Correct Side, Site, Position Yes -Correct Procedure Yes -Wound/Ulcer Outcome Not Healed -Ulcer Cleansing Rinsed / Irrigated with Saline -Foul Odor after Cleansing No -Bioengineered Tissue No -Cetacaine [place] No -Bleeding Controlled with NA -Treatment Response [...] Recorded Date Recorded By Document 12/23/15 16:42 [id number] 12/23/15 16:44 12/23/15 16:42 Wound Center Nurse 2 1-abdomen -Time 16:42 -Correct Patie nt Yes -Correct Side, Site, Position Yes -Correct Procedure Yes -Wound/Ulcer Outcome Not Healed -Ulcer Cleansing Rinsed/ Irrigated with Saline -Foul Odor after Cleansing No -Bioengineered Tissue No -Cet acaine [place] No -Bleeding Controlled with NA -Treatment Response Procedure Tolerated Well No debridement was completed today Assessment/Plan Active Problems Abscess of abdominal wall (Acute) Wound, open, abdominal wall, anterior (Acute) Diabetes mellitus (Chronic) Hyperlipidemia (Chronic) Mitral valve prolapse (Chronic) Assessment: This is a 60-year-old diabetic female who is in her [facility] state of health until approximately 3 weeks [...] Contrast Result: Comments: See Note; NOTES: [facility] Imaging Services [address] [place] [address] Verdana 4d Abdomen/Pelvis WITH Contrast MR#: [id number] Acct: [id number] Name: MILO RAMOS Rep #: [id number] : 1955 F 60 From: Jack Hernandez MD PCP: Leticia Pugh DO Status: REG CLI Study: Abdomen/Pelvis WITH Contrast Date of Exam: 12/12/15 Exam# [id number] Ordering Dr: Leticia Pugh DO STUDY: CT [...] MD at 17:46 EDT , Service support [phone], CC: Leticia Pugh DO Jackhammer Splitter Operator: Signed 25-Oct-2015 Chest WITH Contrast Result: Comments: See Note; NOTES: [facility] Imaging Services [address] [place] [address] Verdana 4d Chest WITH Contrast MR#: [id number] Acct: [id number] Name: RADHA RAMOS Rep #: [id number] : 1955 F 60 From: Emerson Centeno MD PCP: Leticia Pugh DO Status: REG CLI Study: Chest WITH Contrast Date of Exam: 10/25/15 Exam# [id number] Ordering Dr: Marcus Sánchez MD [facility] DY: CT CHEST WITH CONTRAST REASON [...] MD at 21:00 EDT , Service support [phone], CC: Leticia Pugh DO; Marcus Sánchez MD Jackhammer Splitter Operator: Signed 05-Sep-2015 ELECTROCARDIOGRAM, COMPLETE (ECG) ([id number]) Comments: nsr no acute chg Result: [MEASUREMENTS ANALYSIS] Date of Test: 09/05/2015 14:41:33; Heart Rate: 82; ME Interval: 152; QRS: 100; QT Interval: 366; Corrected QT Interval (QTc): 404; P Wave Conger: 62; QRS Wave Conger: 42; T Wave Conger : 23; Blood Pressure: 122/82 [ECG DIAGNOSTIC STATEMENTS] Date of Test: 09/05/2015 14:41:33; Summary: Sinus Rhythm WITHIN NORMAL LIMITS 08-Aug-2015 Bilat Scrn Digital AND CAD Result: Comments: See Note; NOTES: [facility] Imaging Services [address] [place] [address] Verdana 4d Bilat Scrn Digital AND CAD MR#: [id number] Acct: [id number] Name: RADHA RAMOS Rep #: [id number] : 1955 F 59 From: Ross Saxena MD PCP: Leticia Pugh DO Status: REG CLI Study: Bilat Scrn Digital AND CAD Date of Exam: 08/08/15 Exam# [id number] [facility] Dr: Zhane Angeles MD MAMMOGRAPHY - [...] [facility]. Approximately 10% of breast cancers are not detected by mammography. A normal mammogram should not delay biopsy of a clinically suspicious abnormality. [id number] Electron ically Signed: Ross Saxena MD at 10:53 EDT Tel [phone], Service support [phone], CC: Zhane Angeles MD; Leticia Pugh DO Jackhammer Splitter Operator: Signed 15-Mar-2015 ELECTROCARDIOGRAM, COMPLETE (ECG) ([id number]) Result: [MEASUREMENTS ANALYSIS] Date of Test: 03/15/2015 11:59:12; Heart Rate: 78; ME Interval: 126; QRS: 100; QT Interval: 380; Corrected QT Interval (QTc): 411; P Wave Conger: 39; QRS Wave Conger: 44; T Wave Conger : 27; Blood Pressure: 126/82 [ECG DIAGNOSTIC STATEMENTS] Date of Test: 03/15/2015 11:59:12; Summary: Sinus Rhythm WITHIN NORMAL LIMITS 13-Feb-2015 PT D/C of Non Returning Pt. Result: Comments: See Note; NOTES: [facility]. [address] [place] [address] Fax REHABILITATION SE RVICES DISCHARGE SUMMARY MR#: [id number] Acct: [id number] Name: RADHA RAMOS Rep #: [id number] : 1955 59 From: Morgan Barnes Referring [...] <Electronically signed by Morgan Barnes > 02/13/15 1835 CC: Joey Kebede DPM; Leticia Pugh DO Signed 05-Dec-2014 Inital Evaluation - PT Result: Comments: See Note; NOTES: [facility]. [address] [place] [phone] Fax REHABILITATION SERVICES INITIAL EVALUATION MR#: [id number] Acct: [id number] Name: RADHA RAMOS Rep #: [id number] : 1955 59 From: Morgan Barnes Referring Dr.: Joey Kebede DPM Status: REG R Insurance: [facility] Date: DATE OF SERVICE: 11/29/2014 PHYSICIAN: Joey [...] cuff repair. VOCATION: The patient works at [employer]. OBJECTIVE: OBSERVATION OF POSTURE: The patient has [...] exercises. Morgan Barnes, PT T: NTS JOB: [id number] <Electronically signed by Morgan Barnes > 12/05/14 1319 CC: Signed For Medicare only, by signing this I certify the plan of care. Physicians Signature Date 28-Sep-2014 Discharge Instruction Result: Comments: See Note; NOTES: [facility] Medical Records Department [address] [place] [address] Instructions for Home/Discharge Instructions 09/28/14 1826 MR#: [id number] ct: [id number] Name: RADHA RAMOS Rep #: [id number] : 1955 58 From: Joey Kebede DPM PCP: Leticia Pugh DO Status: REG [facility] Discharge Diet: Light diet - advance as [...] Views Result: Comments: See Note; NOTES: [facility] Imaging Services [address] [place] [address] Radiology Report MR#: [id number] Acct: [id number] Name: RADHA RAMOS Harsh Rep #: [id number] : 1955 F 58 From: Rohit Zamarripa MD PCP: Leticia Pugh DO Status: [facility] Study: Foot min 3 Views Date of Exam: 09/28/14 Exam# [id number] Ordering Dr: Joey Kebede DPM STUDY: X-RAY [...] FACR at 20:28 EDT , Service support [phone], RAD/Foot min 3 Views IMPRESSION: Status post osteotomy of the posterior pr ocess of the calcaneus and stabilization with a cannulated screw. Alignment is anatomical and no immediate post surgical complications are seen. Cast is in place. Electronically Signed: Rohit laird MD, FACR at 20:28 EDT , Service support [phone], CC: Joey Kebede DPM; Leticia Pugh DO Jackhammer Splitter Operator: Signed 28-Sep-2014 Calcaneus min 2 Views Result: Comments: See Note; NOTES: [facility] Imaging Services [address] [place] [address] Radiology Report MR#: [id number] Acct: [id number] Name: RADHA RAMOS Rep #: [id number] : 1955 F 58 From: Rohit Zamarripa MD PCP: Leticia Pugh DO Status: [facility] Study: Calcaneus min 2 Views Date of Exam: 09/28/14 Exam# [id number] Ordering Dr: Joey Kebede DPM Mindy MURPHY: [...] FACR at 20:32 EDT , Service support [phone], RAD/Calcaneus min 2 Views IMPRESSION: Status Post osteotomy of the posterior process of the calcaneus and stabilization with a cannulated screw. Alignment is anatomical and no immediate post surgical complications are seen. Electronically Signed: Rohit Zamarripa MD, FACR at 20:32 EDT , Service support [phone], CC: Joey Kebede DPM; Leticia Pugh DO Jackhammer Splitter Operator: Signed 27-Aug-2014 Lower Ext Joint Only (Routine) Result: Comments: See Note; NOTES: [facility] Imaging Services [address] [facility] [place] [address] MRI Report MR#: [id number] Acct: [id number] Name: RADHA RAMOS Rep #: [id number] : 1955 F 58 From: Rohit Zamarripa MD PCP: Leticia Pugh DO Status: REG CLI Study: Lower Ext Joint Only (Routine) Date of Exam: 08/27/14 Exam# [id number] Ordering Dr: Joey Kebede DPM STUDY: MRI [...] FACR at 17:00 EDT , Service support [phone], Fax CC: Joey Kebede MD; Leticia Pugh DO Jackhammer Splitter Operator: Signed 27-Aug-2014 Lower Ext Joint Only (Routine) Result: Comments: See Note; NOTES: [facility] Imaging Services [address] [place] [address] MRI Report MR#: [id number] Acct: [id number] Name: RADHA RAMOS Rep #: [id number] : 1955 F 58 From: Rohit Zamarripa MD PCP: Leticia Pugh DO Status: REG CLI Study: Lower Ext Joint Only (Routine) Date of Exam: 08/27/14 Exam# [id number] Ordering Dr: Joey Kebede DPM ADDENDUM by [...] FACR at 14:08 EDT , Service support [phone], 09/17/14 1408 Date cc: Joey JOHNSONM; Leticia [...] at 17:00 EDT , Service suppor t [phone], CC: Joey Kebede DPM; Leticia Pugh DO Jackhammer Splitter Operator: Signed 03-Aug-2014 Bilat Scrn Digital AND CAD Result: Comments: See Note; NOTES: [facility] Imaging Services [address] [place] [address] Breast Imaging Report MR#: [id number] Acct: [id number] Name: RADHA RAMOS Rep #: [id number] : 1955 F 58 From: Ross Saxena MD PCP: Leticia Pugh DO Status: REG CLI Study: Faviola Vincent Digital AND CAD Date of Exam: 08/03/14 Exam# [id number] Ordering Dr: Lelo Angeles MD MAMMOGRAPHY - [...] be sent to the patient by the [facility] within 30 days. Approximately 10% of breast cancers are not detected by mammography. A normal mammogram should not delay biopsy of a clinically suspicious abnormality. Electronically Kristin d: Ross Saxena MD at 13:16 EDT Tel [phone], Service support [phone], CC: Zhane Angeles MD; Leticia Pugh DO Jackhammer Splitter Operator: Signed 03-Aug-2014 Bilat Scrn Digital AND CAD Result: Comments: See Note; NOTES: [facility] Imaging Services [address] [place] [address] Breast Imaging Report MR#: [id number] Acct: [id number] Name: RADHA RAMOS Rep #: [id number] : 1955 F 58 From: Ross Saxena MD PCP: Leticia Pugh DO Status: REG CLI Study: Bilat Scrpatricia Digital AND CAD Date of Exam: 08/03/14 Exam# [id number] Ordering Dr: Lelo Angeles MD MAMMOGRAPHY - [...] be sent to the patient by the [facility] within 30 days. Approximately 10% of breast cancers are not detected by mammography. A normal mammogram should not delay biopsy of a clinically suspicious abnormality. Electronically Kristin d: Ross Saxena MD at 13:16 EDT Tel [phone], Service support [phone], CC: Zhane Angeles MD; Leticia Pugh DO Jackhammer Splitter Operator: Signed 03-Aug-2014 Bilat Scrn Digital AND CAD Result: Comments: See Note; NOTES: [facility] Imaging Services [address] [place] [address] Breast Imaging Report MR#: [id number] Acct: [id number] Name: RADHA RAMOS Rep #: [id number] : 1955 F 58 From: Ross Saxena MD PCP: Leticia Pugh DO Status: REG CLI Study: Bilat Scrn Digital AND CAD Date of Exam: 08/03/14 Exam# [id number] Ordering Dr: Lelo Angeles MD MAMMOGRAPHY - [...] [facility]. Approximately 10% of breast cancers are not detected by mammography. A normal mammogram should not delay biopsy of a clinically suspicious abnormality. Electronically Kristin d: Ross Saxena MD at 13:16 EDT Tel [phone], Service support [phone], CC: Zhane Angeles MD; Leticia Pugh DO Jackhammer Splitter Operator: Signed 05-Jul-2014 PT Discharge Summary Result: Comments: See Note; NOTES: [facility] [address] [place] [address]. [address] [place] [address] Fax REHABILITATION SERVICES DISCHARGE SUMMARY MR#: [id number] Acct: [id number] Name: RADHA RAMOS Rep #: [id number] : 1955 58 From: Morgan Barnes Referring [...] Sincerely, Morgan Barnes, PT T: ADIS JOB: [id number] <Electronically signed by Morgan Barnes > 07/05/14 1429 CC: Signed 18-May-2014 Brain W/WO Contrast Result: Comments: See Note; NOTES: [facility] Imaging Services [address] [place] [address] MRI Report MR#: [id number] Acct: [id number] Name: RADHA RAMOS Rep #: [id number] D OB: 1955 F 58 From: Yolanda Vitale MD PCP: Leticia Pugh DO Status: REG CLI Study: Brain W/WO Contrast Date of Exam: 05/18/14 Exam# [id number] Ordering Dr: Leticia Pugh DO STUDY: MRI [...] MD at 17:10 EDT , Service support [phone], CC: Leticia Pugh DO Jackhammer Splitter Operator: Signed 18-May-2014 Spine Cervical (Routine) Result: Comments: See Note; NOTES: [facility] Imaging Services [address] [place] [address] MRI Report MR#: [id number] Acct: [id number] Name: RADHA RAMOS Harsh Rep #: [id number] D OB: 1955 F 58 From: Yolanda Vitale MD PCP: Leticia Pugh DO Status: REG CLI Study: Spine Cervical (Routine) Date of Exam: 05/18/14 Exam# [id number] Ordering Dr: Leticia Pugh DO STUDY: MRI [...] at 22 :30 EDT , Service support [phone], CC: Leticia Pugh DO Jackhammer Splitter Operator: Signed 20-Apr-2014 Inital Evaluation - PT Result: Comments: See Note; NOTES: [facility] [place] [address] Fax REHABILITATION SERVICES INITIAL EVALUATION MR#: [id number] Acct: [id number] Name: RADHA RAMOS Rep #: [id number] : 1955 58 From: Morgan Barnes Referring : Leticia Pugh DO Status: REG R Insurance: A [employer] [facility] Date: DATE OF SERVICE: 04/17/2014 REFERRING PHYSICIAN: [...] therapy. Most recently, she had been trying manager intensive care unit, which consist ed of manipulations with some [...] pain. SOCIAL HISTORY: . VOCATION: Works at [employer]. Goals to get rid of pain. OBJECTIVE: [...] for deltoid, biceps, triceps, wrist flexor, extensors. Laundry Clerk strength 40 pressure using dynamometer moveman jamie. Negative ANR. MOVEMENT LOSS: Protrusion minimal loss with pain end range; flexion min-to- moderate loss; retraction, extension minimal loss; side bending to the right minimal loss; side bend to left is ujh-cp-frkzjqys loss; rotation to the right minimal loss; rotation to the left is lnw-ei-yjhllzju loss. Repeated motion, right neck pain. Protrusion, [...] education. Morgan Barnes, PT T: NTS JOB: [id number] <Electronically signed by Morgan Barnes > 04/20/14 0856 CC: Signed For Medicare only, by signing this I certify the plan of care. Physicians Signature Date 11-Apr-2014 Cerv Spine 4 or 5 Views Result: Comments: See Note; NOTES: [facility] Imaging Services [address] [facility] [place] [address] Radiology Report MR#: [id number] Acct: [id number] Name: RADHA RAMOS Rep #: [id number] : 1955 F 58 From: Sofia Gamble MD PCP: Leticia Pugh DO Status: REG CLI Study: Cerv Spine 4 or 5 Views Date of Exam: 04/11/14 Exam# [id number] Ordering Dr: Leticia Pugh: X-RAY - CERVICAL [...] MD at 16:35 EST , Service support [phone], RAD/Cerv Spine 4 or 5 Vie ws IMPRESSION: Normal x-ray examination of the visualized cervical spine. Electronically Signed: Sofia Gamble MD at 16:35 EST , Service support [phone], CC: Leticia Pugh DO Jackhammer Splitter Operator: Signed 30-Mar-2014 Esophagus Only Result: Comments: See Note; NOTES: [facility] Imaging Services [address] [place] [address] Radiology Report MR#: [id number] Acct: [id number] Name: RADHA RAMOS Rep #: [id number] : 1955 F 58 From: Ross Saxena MD PCP: Leticia Pugh DO Status: REG CLI Study: Esophagus Only Date of Exam: 03/30/14 Exam# [id number] Ordering Dr: James Garrido MD STUDY: X-RAY [...] Ross Saxena MD at 9:25 EST Tel [phone], Service support [phone], Fax CC: Leticia Pugh DO; James Garrido Jackhammer Splitter Operator: Signed 08-Feb-2014 Stress Test Echo w/o Contrast Result: Comments: See Note; NOTES: [facility] Cardiovascular Services [address] [place] [address] STRESS TEST REPORT 02/02/14 1143 MR#: [id number] Acct: [id number] Name: RADHA RAMOS Rep #: [id number] : 1955 58 From: Guevara Casanova MD [...] Dictate d: 02/02/14 1143 Date Transcribed: 02/05/14901 Jackhammer Splitter Operator: Signed 08-Feb-2014 Echocardiogram Complete Result: Comments: See Note; NOTES: [facility] Cardiovascular Services [address] [place] [address] STRESS TEST REPORT 02/02/14 1143 MR#: [id number] Acct: [id number] Name: RADHA RAMOS Rep #: [id number] : 1955 58 From: Guevara Casanova MD [...] Date Dictated: 02/02/14 1143 Date Transcribed: 02/05/1436 Jackhammer Splitter Operator: Signed 06-Feb-2014 Upper GI Series Only Result: Comments: See Note; NOTES: [facility] Imaging Services [address] [place] [address] Radiology Report MR#: [id number] Acct: [id number] Name: RADHA RAMOS Rep #: [id number] : 1955 F 58 From: Segun Loomis MD PCP: Leticia Pugh DO Status: REG CLI Study: Upper GI Series Only Date of Exam: 02/06/14 Exam# [id number] Ordering Dr: Tanvi Hawthorne CLINICAL HISTOR Y: [...] MD at 10:55 EST , Service support [phone], RAD/Upper GI Series Only IMPRESSION: Patient shows [...] 2013 at 10:55 EST , Service support [phone], CC: Tanvi Hawthorne; Leticia Pugh DO Jackhammer Splitter Operator: Signed 05-Feb-2014 Stress Test Echo w/o Contrast Result: Comments: See Note; NOTES: [facility] Cardiovascular Services [address] [place] [address] STRESS TEST REPORT 02/02/14 1143 MR#: [id number] Acct: [id number] Name: RADHA RAMOS Rep #: [id number] : 1955 58 From: Guevara Casanova MD [...] Dictated: 02/02/14 1143 Date Transcribed: 02/05/14 0836 Jackhammer Splitter Operator: Signed 02-Feb-2014 Chest PA and Lateral Result: Comments: See Note; NOTES: [facility] Imaging Services [address] [place] [address] Radiology Report MR#: [id number] Acct: [id number] Name: RADHA RAMOS Rep #: [id number] : 1955 F 58 From: Martell Price MD PCP: Leticia Pugh DO Status: REG CLI Study: Chest PA and Lateral Date of Exam: 02/02/14 Exam# [id number] Ordering Dr: Tanvi Hawthorne STUDY: X-RAY CHEST [...] at 14:11 EST Tel , Service support [phone], RAD/Chest PA and Lateral IMPRESSION: Normal x-ray examination of the chest. Electronically Signed: Martell Price MD 20/01/28 at 14:11 EST , Service support [phone], CC: Tanvi Christoph; Leticia Pugh DO Jackhammer Splitter Operator: Signed 29-Jan-2014 ELECTROCARDIOGRAM, COMPLETE (ECG) (94330) Comments: sinus rhythm, similar to 11-19 Result: [MEASUREMENTS ANALYSIS] Date of Test: 01/29/2014 13:47:19; Heart Rate: 86; ME Interval: 136; QRS: 100; QT Interval: 368; Corrected QT Interval (QTc): 413; P Wave Conger: 66; QRS Wave Conger: 41; T Wave Conger : -1; Blood Pressure: 132/74 [ECG DIAGNOSTIC STATEMENTS] Date of Test: 01/29/2014 13:47:19; Summary: Sinus Rhythm WITHIN NORMAL LIMITS 02-Aug-2013 Bilat Scrn Digital & CAD Result: Comments: See Note; NOTES: [facility] Imaging Services [address] [place] [address] Breast Imaging Report MR#: [id number] Acct: [id number] Name: RADHA RAMOS Rep #: [id number] : 1955 F 57 From: Ross Saxena MD PCP: Leticia Pugh DO Status: REG CLI Exam# [id number] Ordering Dr: Zhane Angeles MD MAMMOGRAPHY - [...] [facility]. Approximately 10% of breast cancers are not detected by mammography. A normal mammogram should not delay biopsy of a clinically suspicious abnormality. Electronically Signed: Thompson Saxena MD at 10:52 EDT Tel [phone], Service support [phone], CC: Zhane Angeles MD; Leticia Pugh DO Jackhammer Splitter Operator: Signed Immunization Name Dates Details Influenza (3 [...] kg/m2 Body Surface Area Calculated 1.94 m2 05-Ymx-616625:00 Temperature 98.2 f Comments: Method: Oral Pulse [...] Value Details :54 BNP,B-Type NATRIURETIC PEPTIDE Comments: [facility] [address] [place], [address] B-TYPE CAMILO PEP 38.2 pg/mL (Normal) Range: 0-100 2-Oct-14720:54 Troponin-I Comments: 'TROP' Serial specimen #1, #2, #3, or #4: 1[facility] [address] [place], [place], [id number] TROPONIN-I < 0.015 ng/mL (Normal) Comments: TROPONIN-I EXPECTED VALUES <0.045 Negative 0.045 - 0.590 Consistent with Cardiac Damage > OR = 0.600 Critical Value Not every elevated troponin is indicative of OR. T hesevalues should be used with clinical judgement in examiningthe patient's clinical picture for diagnosis. To establisha diagnosis of OR versus myocardial injury, there must be ademonstrated rise and/ or fall in the troponin values, inaddition to ischemic symptoms, EKG changes, new regionalwall motion abnormality, and/or angiographical evidence. PLEASE NOTE: REFERENCE RANGES EDITED 17:58 Lipid Profile Comments: Order Date: 10/16/16Order Info: 0788-1 - *Hepatic Function PanelOrder Info: 05340-3 - *Lipid Profile CC PCPComments: 12 hours fasting, may have water.[facility] [address] [place], [place], [address] VLDL 35 mg/dL (Normal) Range: 5-40 LDL [...] Info: 0788-1 - *Hepatic Function PanelOrder Info: 89444-2 - *Lipid Profile CC PCPComments: 12 hours fasting, may have water.[facility] [address] [place], [id number] D BILI 0.07 mg/dL (Normal) Range: 0.00-0.30 T BILI 0.70 mg/dL (Normal) Range: 0.20-1.00 ALT 47 U/L (Normal) Range: 13-56 Comments: Please note revised ALT reference range agoedldml60/28/2018. ALK P 103 U/L (Normal) Range: 45-117 AST 30 U/L (Normal) Range: 15-37 GLOB 3.6 g/dL (Normal) Range: 2.2-4.2 ALB 4.0 g/dL (Normal) Range: 3.2-5.0 T PROT 7.6 g/dL (Normal) Range: 6.4-8.2 45-Oqq-393193:09 Free T3 Comments: [facility] [address] [place], [id number] FREE T3 3.2 pg/mL (Normal) Range: 2.18-3.98 93-Fnn-288113:09 T4 Free Direct Comments: [facility] [address] [place], [id number] T4 FREE DIRECT 0.84 ng/dL (Normal) Range: 0.76-1.46 75-Lxd-687757:09 Thyroid Stim Hormone (TSH) Comments: [facility] [address] [place], [id number] TSH 1.27 {uIU/mL} (Normal) Range: 0.358-3.74 66-Jac-490389:04 VITAMIN B-12 (CYANOCOBALAMIN) Comments: PATIENT WAS FASTINGPERFORMED BY: [facility] Dqaegu4657 [facility] [id number] (52124) Vitamin B12 1049 pg/mL (Normal) Range: 232-1245 50-Oxu-788647:04 CALCIFEDIOL (27135) Comments: PATIENT WAS FASTINGPERFORMED BY: [facility] Pwpwxe5355 [facility] [id number] Vitamin D, 25-Hydroxy 17.4 ng/mL (Abnormal) Range: 30.0-100.0 Comments: Vitamin D deficiency has been defined by the [place] of[place] and an Endocrine Society practice guideline as alevel of serum 25-OH vitamin D less than 20 ng/mL (1,2).The Endocrine Society went on to further define vitamin Dinsufficiency as a level between 21 and 29 ng/mL (2).1. IOM ([place] of [place]). 2010. Dietary reference intakes for calcium and D. [place]: The National Academies Press.2. Catie MF, Karon ACEVEDO, Myron KESSLER, et al. Evaluation, treatment, and prevention of vitamin D deficiency: an Endocrine Society clinical practice guideline. JCEM. 2010; 96(7):1911-30. 60-Gvs-685588:08 URINE SHANI CULTURE-IDENTIFICATN Comments: PATIENT NOT FASTINGPERFORMED BY: [employer]70 [address] [place] [id number] (15817) Antimicrobial MIHEAD (Normal) Comments: S = Susceptible; [...] mL (Abnormal) Urine Final report Culture,Comprehensive (Abnormal) 80-Xtz-621458:08 URINALYSIS (58757) Comments: PATIENT NOT FASTINGPERFORMED BY: [facility] Rjrwbu1981 Chond[facility] TherapeuticsFirstHealth [facility] Hospital [id number] Information: SRC:UC Microscopic Examination MICNIP (Normal) Comments: Microscopic not indicated and not performed. Nitrite, Urine Negative (Normal) Urobilinogen,Semi-Qn 0.2 mg/dL (Normal) Range: 0.2-1.0 Bilirubin Negative (Normal) Occult Blood Negative (Normal) Ketones Negative (Normal) Glucose Negative (Normal) Protein Negative (Normal) WBC Esterase Negative (Normal) Appearance Clear (Normal) Urine-Color Yellow (Normal) pH 5.0 (Normal) Range: 5.0-7.5 Specific Trosper 1.021 (Normal) Range: 1.005-1.030 :11 Basic Metabolic Profile (BMP) Comments: 'TROP' Serial specimen #1, #2, #3, or #4: 1[facility] [address] [place], [place], [address] GAP 9 (Normal) Range: 5-15 CO2 24.0 [...] A.D.A. criteria. :11 CBC W/Diff, Automated Comments: [facility] [address] [place], [address] Absolute Lymph 3.23 {X10_3/ul} (Normal) [...] Serial specimen #1, #2, #3, or #4: 1[facility] Natjpgzjpo5750 [facility] [place], [address] TROPONIN-I < 0.02 ng/mL (Normal) Comments: TROPONIN-I EXPECTED VALUES <0.05 NEGATIVE 0.06 - 0.59 AT RISK OF OR > OR = 0.60 SUGGEST OR 13-Nov-20160:00 ASP RADIOLOGY (FLUID) See Note (Normal) Comments: [facility] [address] [place], [address] Comments: Patient: RADHA RAMOS : 1955 (61/F) Acct Num: [id number] Phys: Jacinto VIDALES,James Unit Num: [id number] Loc: US Specimen: [id number] Received: 11/13/16 - [...] cytology study. / SVETLANA:brayden 11/13/16 TC:5 CPT: 09775, 66610, 881 72 CYTOLOGY STUDY Slides are reviewed. [...] Order Date: 09/21/16Order Info: [id number] - *[facility]qA1YZmxermvSelect [facility] Rzxydrszfm9237 [facility] [address]. [place], [place], [address] HGB A1C 6.3 % (Normal) Range: 4.2-6.3 64-Kue-62273:57 Lipid Profile Comments: Order Date: 10/28/15Interface Comments: 12 hours fasting, may have water.[facility] [address] [place], [place], [address] VLDL 28 mg/dL (Normal) Range: 5-40 LDL [...] 200-240 mg/dL Borderline >240 mg/dL High Risk 83-Mdh-00924:57 Liver Profile Comments: Order Date: 10/28/15Interface Comments: 12 hours fasting, may have water.[facility] [address] [place], [place], [id number] D BILI 0.11 mg/dL (Normal) Range: 0.00-0.30 T BILI 0.60 mg/dL (Normal) Range: 0.20-1.00 ALT 34 U/L (Normal) Range: 12-78 ALK P 95 U/L (Normal) Range: 45-117 AST 21 U/L (Normal) Range: 15-37 GLOB 3.2 g/dL (Normal) Range: 2.3-3.5 ALB 4.1 g/dL (Normal) Range: 3.4-5.0 T PROT 7.3 g/dL (Normal) Range: 6.4-8.2 44-Jye-864702:14 CBC W/Diff, Automated Comments: Order Date: 09/21/16Order Info: [id number] - *CBC with DifferentialComments: Reason:[facility] [address] [place], [place], [address] Absolute Lymph 2.69 {X10_3/ul} (Normal) Range: 0.83-4.51 [...] 4.2-5.4 WBC 7.3 K/mm3 (Normal) Range: 4.4-11.0 07-Feb-182234:14 Thyroid Stim Hormone (TSH) Comments: Order Date: 09/21/16Order Info: [id number] - *TSHComments: Reason:[facility] [address] [place], [place], [address] TSH 1.64 {uIU/mL} (Normal) Range: 0.358-3.74 :55 HgA1C , Office (08444) HgA1C , Office 5.8 % (Normal) Range: 4.6 - 7.1 11-Xga-513364:55 Blood Glucose , Office (77968) Blood Glucose , Office 110 (Normal) 00-Wfe-413776:19 THROAT CULTURE (56170) Comments: PATIENT NOT FASTINGPERFORMED BY: Horizon PharmaAdvanced Care Hospital of Southern New MexicoBtenfg7648 [facility] [id number] Information: SRC:TH Result 1 RRF (Normal) Comments: Routine respiratory jaylyn Upper Respiratory Culture Final report (Normal) 24-Gqi-636081:42 LIPID PANEL (04643) Comments: PATIENT WAS FASTINGPERFORMED BY: LabUniversity [facility] Health6370 [facility] [id number] LDL/HDL Ratio 3.4 {ratio_units} (Abnormal) Range: 0.0-3.2 Comments: LDL/HDL Ratio Men Women 1/2 Avg.Risk 1.0 1.5 Av g.Risk 3.6 3.2 2X Avg.Risk 6.2 5.0 3X Avg.Risk 8.0 6.1 LDL Cholesterol Calc 122 mg/dL (Abnormal) Range: 0-99 VLDL Cholesterol Leonel 34 mg/dL (Normal) Range: 5-40 HDL Cholesterol 36 mg/dL (Abnormal) Triglycerides 172 mg/dL (Abnormal) Range: 0-149 Cholesterol, Total 192 mg/dL (Normal) Range: 100-199 00-Plc-351158:42 CALCIFIDIOL (39281) VIT D 25 Comments: PATIENT WAS FASTINGPERFORMED BY: [employer]70 [facility] [id number]; will rview on 07/03 Vitamin D, 25-Hydroxy 23.3 ng/mL (Abnormal) Range: 30.0-100.0 Comments: Vitamin D deficiency has been defined by the [place] of[place] and an Endocrine Society practice guideline as alevel of serum 25-OH vitamin D less than 20 ng/mL (1,2).The Endocrine Society went on to further define vitamin Dinsufficiency as a level between 21 and 29 ng/mL (2).1. IOM ([place]). 2010. Dietary reference intakes for calcium and D. [place]: The National Academies Press.2. Catie MF, Karon ACEVEDO, Myron KESSLER, et al. Evaluation, treatment, and prevention of vitamin D deficiency: an Endocrine Society clinical practice guideline. JCEM. 2010; 96(7):1911-30. 20-Rok-249555:09 HgA1C , Office (03454) HgA1C , Office 6.0 % (Normal) Range: 4.6 - 7.1 17-Zrg-219641:09 Blood Glucose , Office (09376) Blood Glucose , Office 113 (Normal) 27-Hpn-374262:21 Microscopic Examination Comments: PATIENT WAS FASTINGPERFORMED BY: LabSoBiz10[facility] CenterTfsqkx2664 [facility] [id number] Bacteria Few (Normal) Mucus Threads Present (Normal) Epithelial Cells (non renal) 0-10 {/hpf} (Normal) Range: 0 - 10 RBC 0-2 {/hpf} (Normal) Range: 0 - 2 WBC 0-5 {/hpf} (Normal) Range: 0 - 5 :53 PPD (16083) Comments: lot: [id number]: 07/22site/route: L forearm/intradermalamt: 0.1mLVIS signed when applicableChelsea, TARPER SKIN TEST INTRADERMAL TB negative (Normal) :33 LDH (LD) (LACTATE DEHYDROGENASE) Comments: PATIENT NOT FASTINGPERFORMED BY: [employer] Vyyivn1165 [facility] EliteNov[facility] [id number] (11012) LDH 174 [iU]/L (Normal) Range: 119-226 :33 SED RATE ERYTHROCYTE (69652) Comments: PATIENT NOT FASTINGPERFORMED BY: [employer] [facility] Kgfcvk7883 [facility] [id number] Sedimentation Rate-Westergren 2 mm/h (Normal) Range: 0-40 :33 C-REACTIVE PROTEIN (94395) Comments: PATIENT NOT FASTINGPERFORMED BY: [employer] LabSoBiz10rp Bssvej4615 [facility] [id number] C-Reactive Protein, Quant 1.8 mg/L (Normal) Range: 0.0-4.9 :33 TSH (36449) Comments: PATIENT NOT FASTINGPERFORMED BY: [employer] [facility] Opyogx1512 [facility] [id number] TSH 2.710 {uIU/mL} (Normal) Range: 0.450-4.500 :33 METABOLIC PANEL, COMPREHENSIVE Comments: PATIENT NOT FASTINGPERFORMED BY: [employer] Yhqqsi2400 [facility] [id number] (09856) ALT (SGPT) 25 [iU]/L (Normal) Range: 0-32 [...] Glucose, Serum 83 mg/dL (Normal) Range: 65-99 99-Erz-128032:33 CBC W/AUTO DIFF WBC (22596) Comments: PATIENT NOT FASTINGPERFORMED BY: LabCoJersey Shore University Medical CenterRlmjvi8167 [facility] [id number] Immature Grans (Abs) 0.0 {x10E3/uL} (Normal) Range: [...] Range: 3.4-10.8 :00 Culture, Deep Wound Comments: [address] [place], [address] CUDW See Note (Normal) Comments: Comments: ABDOMINAL ABCESSGram StainGram Stain No White Blood Cells No organisms seen Wound CulturePossible skin contamination, further Identification and sensitivity will be performed only by physi taye's request. ORGANISM 1: Coag Negative StaphAmount Growth Very Rare Cult, AnaerobicNo anaerobic bacteria isolated. 55-Wwr-919577:51 Albumin, Serum Comments: [address] [place], [place], [address] ALB 4.3 g/dL (Normal) Range: 3.4-5.0 :51 Basic Metabolic Profile (BMP) Comments: [address] [place], [place], [address] GAP 6 (Normal) Range: 5-15 CO2 26.0 [...] <126 mg/dLsuggests IMPAIRED HOMEOSTASIS per A.D.A. criteria. 18-Jcc-304173:51 CBC-Complete Blood Cnt No Diff Comments: [facility] [address] [place], [place], [address] MPV 9.4 fL (Normal) Range: 6.2-12.0 PLT [...] (Normal) Range: 4.4-11.0 :51 Hemoglobin A1c Comments: [facility] [address] [place], [place], [address] HGB A1C 6.1 % (Normal) Range: 4.2-6.3 57-Doa-366270:51 Prealbumin Comments: [facility] [address] [place], [place], [address] PREALBUMIN 32.4 mg/dL (Normal) Range: 20.0-40.0 01-Jcd-71144:06 Urinalysis, Office (41372) UA - LEUKOCYTE ESTERASE Negative (Normal) UA - NITRITE Negative (Normal) URINE UROBILINGN MICHAEL TIMED Normal mg/dL (Normal) UA - PROTEIN Negative mg/dL (Normal) UA - PH 6.0 (Normal) Comments: 5.5 UA - BLOOD Non Hemolyzed Trace (Normal) UA - SPECIFIC GRAVITY 1.030 (Abnormal) UA - KETONES Negative mg/dL (Normal) UA - BILIRUBIN Negative (Normal) UA - GLUCOSE Negative (Normal) 4-Ofw-106195:23 SED RATE ERYTHROCYTE Comments: PATIENT WAS FASTINGPERFORMED BY: [employer] [facility] [id number] Information: [id number], [id number] (64156) Sedimentation Rate-Westergren 2 mm/h (Normal) Range: 0-40 1-Seh-399654:27 Aerobic Bacterial Culture Comments: PATIENT WAS FASTINGPERFORMED BY: [employer]70 [facility] [id number] Information: [id number] SRC: (46424) Result 1 Mixed skin jaylyn (Normal) Aerobic Bacterial Culture Final report (Normal) 5-Cjb-557692:21 Serum Creatinine AND GFR Comments: [facility] Kzfdifucbr7451 [facility]. [place], [place], [address] EST GFR - AA 73 mL/min (Normal) Comments: GFR Calc EST GFR 60 mL/min (Normal) Comments: Non- GFR Calc CREAT,SERUM 1.00 mg/dL (Normal) Range: 0.55-1.20 Comments: The validity of the calculated GFR AND GFRAA in patients over70 years has not been determined. Clinical correlation isessential. 13-Vwo-187044:21 VITAMIN B-12 (CYANOCOBALAMIN) Comments: PATIENT WAS FASTINGPERFORMED BY: [employer]70 [facility] [id number] (61885) Vitamin B12 738 pg/mL (Normal) Range: 211-946 :21 TSH (14060) Comments: PATIENT WAS FASTINGPERFORMED BY: Horizon PharmaJersey Shore University Medical CenterJlzqnt8455 [facility] [id number] TSH 2.440 {uIU/mL} (Normal) Range: 0.450-4.500 :21 URINALYSIS, W/ MICRO (69432) Comments: PATIENT WAS FASTINGPERFORMED BY: Blue TornadoUniversity Of Michigan Health6370 [facility] [id number] Microscopic Examination See below: (Normal) Comments: Microscopic was indicated and was performed. Microscopic Examination MICRON (Normal) Comments: Microscopic follows if indicated. Nitrite, Urine Negative (Normal) Urobilinogen,Semi-Qn 0.2 mg/dL (Normal) Range: 0.2-1.0 Bilirubin Negative (Normal) Occult Blood Negative (Normal) Ketones Negative (Normal) Glucose Negative (Normal) Protein Negative (Normal) WBC Esterase Negative (Normal) Appearance Clear (Normal) Urine-Color Yellow (Normal) pH 5.5 (Normal) Range: 5.0-7.5 Specific Trosper 1.027 (Normal) Range: 1.005-1.030 :21 MICROALBUMIN: CREATININE RATIO Comments: PATIENT WAS FASTINGPERFORMED BY: Horizon PharmaJersey Shore University Medical CenterRljmpw8378 [facility] [id number] (29002) AND (02976) Microalb/Creat Ratio 2.9 {mg/g_creat} (Normal) Range: 0.0-30.0 Microalbumin, Urine 4.1 ug/mL (Normal) Creatinine, Urine 143.7 mg/dL (Normal) :21 METABOLIC PANEL, COMPREHENSIVE Comments: PATIENT WAS FASTINGPERFORMED BY: Blue TornadoUniversity Of Michigan Health6370 [facility] [id number] (03952) ALT (SGPT) 28 [iU]/L (Normal) Range: 0-32 [...] Glucose, Serum 134 mg/dL (Abnormal) Range: 65-99 75-Ghu-600703:21 CBC W/AUTO DIFF WBC (63697) Comments: PATIENT WAS FASTINGPERFORMED BY: LabCoJersey Shore University Medical CenterWxblwl2222 [facility] [id number] Immature Grans (Abs) 0.0 {x10E3/uL} (Normal) Range: [...] 3.77-5.28 WBC 5.2 {x10E3/uL} (Normal) Range: 3.4-10.8 36-Vxb-484678:21 LIPID PANEL (50155) Comments: PATIENT WAS FASTINGPERFORMED BY: [employer]70 Chondrial TherapeuticsFirstHealth [facility] Hospital [id number] LDL/HDL Ratio 3.0 {ratio_units} (Normal) Range: 0.0-3.2 Comments: LDL/HDL Ratio Men Women 1/2 Avg.Risk 1.0 1.5 Av g.Risk 3.6 3.2 2X Avg.Risk 6.2 5.0 3X Avg.Risk 8.0 6.1 LDL Cholesterol Calc 121 mg/dL (Abnormal) Range: 0-99 VLDL Cholesterol Leonel 27 mg/dL (Normal) Range: 5-40 HDL Cholesterol 41 mg/dL (Normal) Triglycerides 137 mg/dL (Normal) Range: 0-149 Cholesterol, Total 189 mg/dL (Normal) Range: 100-199 38-Nra-308482:21 CALCIFIDIOL (42220) VIT D 25 Comments: PATIENT WAS FASTINGPERFORMED BY: [employer]6370 IQ EliteNovant [facility] [id number] Vitamin D, 25-Hydroxy 19.5 ng/mL (Abnormal) Range: 30.0-100.0 Comments: Vitamin D deficiency has been defined by the [place] of[place] and an Endocrine Society practice guideline as alevel of serum 25-OH vitamin D less than 20 ng/mL (1,2).The Endocrine Society went on to further define vitamin Dinsufficiency as a level between 21 and 29 ng/mL (2).1. IOM ([place]). 2010. Dietary reference intakes for calcium and D. [place]: The National Academies Press.2. Catie MF, Karon ACEVEDO, Myron KESSLER, et al. Evaluation, treatment, and prevention of vitamin D deficiency: an Endocrine Society clinical practice guideline. JCEM. 2010; 96(7):1911-30. :19 HgA1C , Office (71147) HgA1C , Office 5.8 % (Normal) Range: 4.6 - 7.1 :19 Blood Glucose , Office (52136) Blood Glucose , Office 79 (Normal) :15 Lipid Profile Comments: Order Date: 10/21/15Interface Comments: 12 hours fasting, may have water.Order Date: 10/21/15[facility] [address] [place], [place], [address] VLDL 28 mg/dL (Normal) Range: 5-40 LDL [...] 200-240 mg/dL Borderline >240 mg/dL High Risk 92-Cdm-672259:15 Liver Profile Comments: Order Date: 10/21/15Interface Comments: 12 hours fasting, may have water.Order Date: 10/21/15[facility] [address] [place], [place], [address] D BILI 0.13 mg/dL (Normal) Range: 0.00-0.30 T BILI 0.80 mg/dL (Normal) Range: 0.20-1.00 ALT 39 U/L (Normal) Range: 12-78 ALK P 90 U/L (Normal) Range: 50-136 AST 23 U/L (Normal) Range: 15-37 GLOB 3.1 g/dL (Normal) Range: 2.3-3.5 ALB 4.3 g/dL (Normal) Range: 3.4-5.0 T PROT 7.4 g/dL (Normal) Range: 6.4-8.2 :48 HgA1C , Office (63431) HgA1C , Office 5.9 % (Normal) Range: 4.6 - 7.1 :48 Blood Glucose , Office (06970) Blood Glucose , Office 81 (Normal) :50 Microscopic Examination Comments: PATIENT WAS FASTINGPERFORMED BY: [employer]Co Bprpzm6469 [facility] [id number] Bacteria Few (Normal) Mucus Threads Present (Normal) Epithelial Cells (non renal) 0-10 {/hpf} (Normal) Range: 0 - 10 RBC 0-2 {/hpf} (Normal) Range: 0 - 2 WBC 0-5 {/hpf} (Normal) Range: 0 - 5 :17 VITAMIN B-12 (CYANOCOBALAMIN) Comments: PATIENT NOT FASTINGPERFORMED BY: Blue TornadoCoJersey Shore University Medical CenterGqxzme5035 [facility] [id number] (75082) Vitamin B12 928 pg/mL (Normal) Range: 211-946 :17 CALCIFIDIOL (66999) VIT D Comments: PATIENT NOT FASTINGPERFORMED BY: [facility]Co Yoxepd6744 [facility] [id number] Information: [id number] 25 Vitamin D, 25-Hydroxy 20.0 ng/mL (Abnormal) Range: 30.0-100.0 Comments: Vitamin D deficiency has been defined by the [place] of[place] and an Endocrine Society practice guideline as alevel of serum 25-OH vitamin D less than 20 ng/mL (1,2).The Endocrine Society went on to further define vitamin Dinsufficiency as a level between 21 and 29 ng/mL (2).1. IOM ([place] of [place]). 2010. Dietary reference intakes for calcium and D. [place]: The National Academies Press.2. Catie MF, Karon ACEVEDO, Myron KESSLER, et al. Evaluation, treatment, and prevention of vitamin D deficiency: an Endocrine Society clinical practice guideline. JCEM. 2010; 96(7):1911-30. :50 URINALYSIS, W/ MICRO (27738) Comments: PATIENT WAS FASTINGPERFORMED BY: InkiveFirstHealth [facility] Hospital [id number] Microscopic Examination See below: (Normal) Comments: Microscopic was indicated and was performed. Microscopic Examination MICRON (Normal) Comments: Microscopic follows if indicated. Nitrite, Urine Negative (Normal) Urobilinogen,Semi-Qn 0.2 mg/dL (Normal) Range: 0.2-1.0 Bilirubin Negative (Normal) Occult Blood Negative (Normal) Ketones Negative (Normal) Glucose Negative (Normal) Protein Negative (Normal) WBC Esterase Negative (Normal) Appearance Clear (Normal) Urine-Color Yellow (Normal) pH 6.0 (Normal) Range: 5.0-7.5 Specific Trosper 1.021 (Normal) Range: 1.005-1.030 :50 MICROALBUMIN: CREATININE RATIO Comments: PATIENT WAS FASTINGPERFORMED BY: InkiveFirstHealth [facility] Hospital [id number] (18510) AND (45935) Microalb/Creat Ratio 2.6 {mg/g_creat} (Normal) Range: 0.0-30.0 Microalbumin, Urine 4.4 ug/mL (Normal) Creatinine, Urine 170.1 mg/dL (Normal) :50 METABOLIC PANEL, COMPREHENSIVE Comments: PATIENT WAS FASTINGPERFORMED BY: InkiveFirstHealth [facility] Hospital [id number] (21874) ALT (SGPT) 28 [iU]/L (Normal) Range: 0-32 [...] Glucose, Serum 113 mg/dL (Abnormal) Range: 65-99 24-Jcp-13056:50 CBC W/AUTO DIFF WBC Comments: PATIENT WAS FASTINGPERFORMED BY: LabCoJersey Shore University Medical CenterAbzwhs0088 [facility] [id number] Information: [id number] [id number] DL (57791) Immature Grans (Abs) 0.0 {x10E3/uL} (Normal) Range: [...] B-12 (CYANOCOBALAMIN) Comments: PATIENT WAS FASTINGPERFORMED BY: FlowMedicaDavid Ville 4727970 [facility] [id number] (16587) Vitamin B12 589 pg/mL (Normal) Range: 211-946 :50 LIPID PANEL (85787) Comments: PATIENT WAS FASTINGPERFORMED BY: LabCo[address] [id number] LDL/HDL Ratio 3.2 {ratio_units} (Normal) Range: 0.0-3.2 [...] Cholesterol, Total 178 mg/dL (Normal) Range: 100-199 85-Crj-76797:50 CALCIFIDIOL (11562) VIT D 25 Comments: PATIENT WAS FASTINGPERFORMED BY: LabCoJersey Shore University Medical CenterVdcwwg1016 [facility] [id number] Vitamin D, 25-Hydroxy 23.6 ng/mL (Abnormal) Range: 30.0-100.0 Comments: Vitamin D deficiency has been defined by the [place] of[place] and an Endocrine Society practice guideline as alevel of serum 25-OH vitamin D less than 20 ng/mL (1,2).The Endocrine Society went on to further define vitamin Dinsufficiency as a level between 21 and 29 ng/mL (2).1. IOM ([place] of [place]). 2010. Dietary reference intakes for calcium and D. [place]: The National Academies Press.2. Catie MF, Karon ACEVEDO, Myron KESSLER, et al. Evaluation, treatment, and prevention of vitamin D deficiency: an Endocrine Society clinical practice guideline. JCEM. 2010; 96(7):1911-30. :39 HgA1C , Office (82033) HgA1C , Office 5.7 % (Normal) Range: 4.6 - 7.1 :39 Blood Glucose , Office (36452) Blood Glucose , Office 87 (Normal) :08 CK-MB Quantitative and Index Comments: 'TROP' Serial specimen #1, #2, #3, or #4: INT'CKMB' Serial Specimen #1, #2 or #3? 1[facility] [address] [place], [place], [address] CKRI 0.5 % (Normal) Range: 0.0-1.4 Comments: RELATIVE INDEX >1.5% IS PRESUMPTIVELY POSITIVE CPKMB 0.6 ng/mL (Normal) Range: 0.0-5.0 Comments: CK-MB and RI Interpretation MB Relative Index Non-AMI <or= 5 NA Indeterminate > 5 <or= 4 AMI > 5 > 4 CPK TOTAL 114 U/L (Normal) Range: 26-192 :08 Troponin I (82991) Comments: 'TROP' Serial specimen #1, #2, #3, or #4: INT'CKMB' Serial Specimen #1, #2 or #3? 1WK[facility] [address]ozgtmnm[address] [place], [place], [address] TROPONIN-I < 0.02 ng/mL (Normal) Comments: TROPONIN-I EXPECTED VALUES <0.05 NEGATIVE 0.06 - 0.59 AT RISK OF OR > OR = 0.60 SUGGEST OR 1-Rhi-143028:44 LIPID PANEL (48001) Comments: PATIENT WAS FASTINGPERFORMED BY: LabSoBiz10Jer[facility] Shore University Medical CenterQmqkxg9031 [facility] [id number] Information: [id number] LDL/HDL Ratio 2.6 {ratio_units} (Normal) Range: 0.0-3.2 [...] (Normal) Range: 100-199 :56 HgA1C , Office (08859) HgA1C , Office 5.8 % (Normal) Range: 4.6 - 7.1 9-Ybu-848235:56 Blood Glucose , Office (47161) Blood Glucose , Office 99 (Normal) 97-Szv-938419:27 URINE SHANI CULTURE-MICHAEL COL Comments: PATIENT NOT FASTINGPERFORMED BY: Lab[address] [id number] Information: [facility] [id number] COUNT (90560) Antimicrobial MIHEAD (Normal) Comments: S = Susceptible; [...] . (Abnormal) Urine Final report Culture,Comprehensive (Abnormal) 28-Lcd-174094:33 Urinalysis, Office (70947) UA - LEUKOCYTE ESTERASE Negative (Normal) UA - NITRITE Negative (Normal) URINE UROBILINGN MICHAEL TIMED Normal mg/dL (Normal) UA - PROTEIN Negative mg/dL (Normal) UA - PH 5 (Abnormal) UA - BLOOD Negative (Normal) UA - SPECIFIC GRAVITY 1.025 (Normal) UA - KETONES Negative mg/dL (Normal) UA - BILIRUBIN Negative (Normal) UA - GLUCOSE Negative (Normal) 19-Bqv-516637:00 Culture, Wound Comments: Test performed at:[facility] [address] [place] [address] CUW See Note (Normal) Comments: SPECIMEN RECEIVED [...] $ <=20 S(NF) indicates non-formulary drug at [facility]. Approval by In fectious Disease Specialist required before non-formulary drugs may be ordered and/or dispensed. 48-Sst-392747:54 Bedside Glucose Comments: Test performed at:[facility] [address] [place] [address] ; ordered by Dr. Kebede BEDSIDE GLU 126 mg/dL (Abnormal) Range: 70-110 Comments: No Action RequiredMANAGEMENT OF PATIENT CARE PER NURSING PROTOCOL 15-Ldu-635197:25 Urinalysis, Routine (Dipstick) Comments: How was Urine Obtained? BRIGHT CUTTER TO SPECIFYTest performed at:[facility] [address] [place] [address] LEUK ESTERASE Negative /ul (Normal) OCCULT BLOOD-UR Negative /ul (Normal) NITRITE UR Negative (Normal) UROBILI Normal mg/dL (Normal) PROT DIPSTX Negative mg/dL (Normal) pH UR 5.0 (Normal) Range: 5.0 - 8.0 SP.GR. DIPSTX 1.020 (Normal) Range: 1.002-1.030 KETONE UR Negative mg/dL (Normal) BILIRUBIN URINE Negative mg/dL (Normal) GLUCOSE, UR Normal mg/dL (Normal) CLARITY Clear (Normal) COLOR Yellow (Normal) 52-Rxy-055523:01 Bedside Glucose Comments: Test performed at:[facility] [address] [facility] [place] [address] BEDSIDE GLU 108 mg/dL (Normal) Range: 70-110 Comments: Policy and Physicians Orders followedMANAGEMENT OF PATIENT CARE PER NURSING PROTOCOL 51-Jff-35629:47 CBC W/Diff, Automated Comments: Test performed at:[facility] [address] [place] [address] Absolute Lymph 2.25 {X10_3/ul} (Normal) [...] 4.2-5.4 WBC 5.9 K/mm3 (Normal) Range: 4.4-11.0 87-Uhp-45280:47 Comprehensive Metabolic Profil Comments: Test performed at:[facility] [address] [place] [address] GAP 11 (Normal) Range: 5-15 CO2 24.0 [...] mg/dL (Normal) Range: 70-110 :33 LIPID PANEL (26773) Comments: PATIENT WAS FASTINGPERFORMED BY: [facility] PharmaJersey [facility] University Medical CenterNzjuqh3996 [facility] [id number] LDL/HDL Ratio 3.4 {ratio_units} (Abnormal) Range: 0.0-3.2 [...] 208 mg/dL (Abnormal) Range: 100-199 :33 TSH (74510) Comments: PATIENT WAS FASTINGPERFORMED BY: [facility] PharmaJersey Shore University Medical CenterMthjdu1189 [facility] [id number] TSH 3.440 {uIU/mL} (Normal) Range: 0.450-4.500 44-Lpg-974153:33 METABOLIC PANEL, Comments: PATIENT WAS FASTINGPERFORMED BY: [facility] [id number] Information: [id number] COMPREHENSIVE (18074) ALT (SGPT) 26 [iU]/L (Normal) Range: 0-32 [...] mg/dL (Abnormal) Range: 65-99 :33 CBC (AUTO) (01111) Comments: PATIENT WAS FASTINGPERFORMED BY: LabCoJersey Shore University Medical CenterCayvsj9138 [facility] [id number] Platelets 216 {x10E3/uL} (Normal) Range: 150-379 RDW 13.9 % (Normal) Range: 12.3-15.4 MCHC 34.1 g/dL (Normal) Range: 31.5-35.7 MCH 28.9 pg (Normal) Range: 26.6-33.0 MCV 85 fL (Normal) Range: 79-97 Hematocrit 41.6 % (Normal) Range: 34.0-46.6 Hemoglobin 14.2 g/dL (Normal) Range: 11.1-15.9 RBC 4.92 {x10E6/uL} (Normal) Range: 3.77-5.28 WBC 5.6 {x10E3/uL} (Normal) Range: 3.4-10.8 39-Kbb-071397:33 VITAMIN B-12 (CYANOCOBALAMIN) Comments: PATIENT WAS FASTINGPERFORMED BY: [facility] [id number] (10570) Vitamin B12 638 pg/mL (Normal) Range: 211-946 36-Ezt-812679:33 CALCIFIDIOL (60883) VIT D 25 Comments: PATIENT WAS FASTINGPERFORMED BY: [facility] Icfkrh9182 [facility] [id number]; apt. 12-13-14 Vitamin D, 25-Hydroxy 19.4 ng/mL (Abnormal) Range: 30.0-100.0 Comments: Vitamin D deficiency has been defined by the [place] [facility] and an Endocrine Society practice guideline as alevel of serum 25-OH vitamin D less than 20 ng/mL (1,2).The Endocrine Society went on to further define vitamin Dinsufficiency as a level between 21 and 29 ng/mL (2).1. IOM ([place] [employer]). 2010. Dietary reference intakes for calcium and D. [place]: The National Academies Press.2. Catie MF, Karon NC, Myron KESSLER, et al. Evaluation, treatment, and prevention of vitamin D deficiency: an Endocrine Society clinical practice guideline. JCEM. 2010; 96(7):1911-30. :47 HgA1C , Office (64234) HgA1C , Office 5.9 % (Normal) Range: 4.6 - 7.1 :05 METABOLIC PANEL, Comments: PATIENT NOT FASTINGPERFORMED BY: [facility] Pnqmfy8892 [facility] [id number] Information: [id number] COMPREHENSIVE (38528) ALT (SGPT) 24 [iU]/L (Normal) Range: 0-32 [...] mg/dL (Abnormal) Range: 65-99 :05 CBC (AUTO) (56508) Comments: PATIENT NOT FASTINGPERFORMED BY: [employer] [facility] [id number] Platelets 251 {x10E3/uL} (Normal) Range: 150-379 RDW 13.3 % (Normal) Range: 12.3-15.4 MCHC 33.9 g/dL (Normal) Range: 31.5-35.7 MCH 28.3 pg (Normal) Range: 26.6-33.0 MCV 84 fL (Normal) Range: 79-97 Hematocrit 43.4 % (Normal) Range: 34.0-46.6 Hemoglobin 14.7 g/dL (Normal) Range: 11.1-15.9 RBC 5.19 {x10E6/uL} (Normal) Range: 3.77-5.28 WBC 5.8 {x10E3/uL} (Normal) Range: 3.4-10.8 :05 VITAMIN B-12 (CYANOCOBALAMIN) Comments: PATIENT NOT FASTINGPERFORMED BY: [employer] Itjfpk3439 [facility] [id number] (83423) Vitamin B12 365 pg/mL (Normal) Range: 211-946 12-Wrr-441929:05 TSH (95268) Comments: PATIENT NOT FASTINGPERFORMED BY: LabCoJersey [facility] University Medical CenterDujonr1513 [facility] [id number] TSH 2.930 {uIU/mL} (Normal) Range: 0.450-4.500 :25 [...] <0.05 NEGATIVE0.06 - 0.59 AT RISK OF OR> OR = 0.60 SUGGEST OR :32 URINE SHANI CULTURE (MICHAEL Comments: PATIENT NOT FASTINGPERFORMED BY: LabCoJersey Shore University Medical CenterEexvhr1329 [facility] [id number] Information: SRC:TERRANCE [id number] COL COUNT) (32218) Result 1 MUG (Normal) Comments: Mixed urogenital flora25,000-50,000 colony forming units per mL Urine Final report (Normal) Culture,Comprehensive :14 Urinalysis, Office (16369) UA - LEUKOCYTE ESTERASE Negative (Normal) UA - NITRITE Negative (Normal) URINE UROBILINGN MICHAEL TIMED Normal mg/dL (Normal) UA - PROTEIN Negative mg/dL (Normal) UA - PH 5.0 (Normal) Comments: 5.5 UA - BLOOD Negative (Normal) UA - SPECIFIC GRAVITY 1.030 (Abnormal) UA - KETONES Negative mg/dL (Normal) UA - BILIRUBIN Negative (Normal) UA - GLUCOSE Negative (Normal) :51 HgA1C , Office (04821) HgA1C , Office 6.1 % (Normal) Range: 4.6 - 7.1 :16 URINE SHANI CULTURE-MICHAEL COL Comments: PATIENT NOT FASTINGPERFORMED BY: LabCoJersey Shore University Medical CenterChphjs7344 [facility] [id number] Information: SRC:UR [id number] COUNT ([id number]) Result 1 ECV (Abnormal) Comments: Escherichia coli, [...] S Urine Final report Culture,Comprehensi (Abnormal) ve 40-Kxp-757124:59 Urinalysis, Office (35406) UA - LEUKOCYTE ESTERASE Small (Normal) UA - NITRITE Negative (Normal) URINE UROBILINGN MICHAEL TIMED 2 mg/dL (Normal) UA - PROTEIN Negative mg/dL (Normal) UA - PH 6.5 (Normal) UA - BLOOD Hemolyzed Small (Normal) UA - SPECIFIC GRAVITY 1.025 (Normal) UA - KETONES Negative mg/dL (Normal) UA - BILIRUBIN Negative (Normal) UA - GLUCOSE Negative (Normal) :33 HgA1C , Office (24422) HgA1C , Office 6.1 % (Normal) Range: 4.6 - 7.1 :33 Blood Glucose , Office (28677) Blood Glucose , Office 144 (Normal) Comments: non-fasting 80-Oay-715277:24 Microscopic Examination Comments: PATIENT WAS FASTINGPERFORMED BY: [employer] [facility] [id number] Bacteria Few (Normal) Mucus Threads Present (Normal) Epithelial Cells (non renal) >10 {/hpf} (Abnormal) Range: 0 - 10 RBC 0-2 {/hpf} (Normal) Range: 0 - 2 WBC 0-5 {/hpf} (Normal) Range: 0 - 5 :48 TSH (89172) Comments: PATIENT WAS FASTINGPERFORMED BY: [employer] [facility] [id number] TSH 3.000 {uIU/mL} (Normal) Range: 0.450-4.500 :48 LIPID PANEL (61202) Comments: PATIENT WAS FASTINGPERFORMED BY: [employer] [facility] [id number] LDL/HDL Ratio 2.8 {ratio_units} (Normal) Range: 0.0-3.2 LDL Cholesterol Calc 105 mg/dL (Abnormal) Range: 0-99 VLDL Cholesterol Leonel 26 mg/dL (Normal) Range: 5-40 HDL Cholesterol 37 mg/dL (Abnormal) Comments: According to ATP-III Guidelines, HDL-C >59 mg/dL is considered anegative risk factor for CHD. Cholesterol, Total 168 mg/dL (Normal) Range: 100-199 Triglycerides 128 mg/dL (Normal) Range: 0-149 :48 URINALYSIS, W/ MICRO (36076) Comments: PATIENT WAS FASTINGPERFORMED BY: [employer]6370 [facility] [id number] Microscopic Examination See below: (Normal) Microscopic Examination MICRON (Normal) Comments: Microscopic follows if indicated. Nitrite, Urine Negative (Normal) Urobilinogen,Semi-Qn 0.2 mg/dL (Normal) Range: 0.0-1.9 Bilirubin Negative (Normal) Occult Blood Negative (Normal) Ketones Negative (Normal) Glucose Negative (Normal) Protein Negative (Normal) WBC Esterase Negative (Normal) Appearance Clear (Normal) Urine-Color Yellow (Normal) pH 6.0 (Normal) Range: 5.0-7.5 Specific Trosper 1.026 (Normal) Range: 1.005-1.030 :48 MICROALBUMIN: CREATININE RATIO Comments: PATIENT WAS FASTINGPERFORMED BY: [facility] [id number] (69276) AND (81757) Microalb/Creat Ratio 3.5 {mg/g_creat} (Normal) Range: 0.0-30.0 Microalbumin, Urine 5.6 ug/mL (Normal) Range: 0.0-17.0 Creatinine, Urine 158.6 mg/dL (Normal) Range: 15.0-328.0 :48 METABOLIC PANEL, COMPREHENSIVE Comments: PATIENT WAS FASTINGPERFORMED BY: [employer]70 [facility]First[facility] [id number] (98105) ALT (SGPT) 26 [iU]/L (Normal) Range: 0-32 [...] Glucose, Serum 100 mg/dL (Abnormal) Range: 65-99 81-Xvz-87146:48 CBC WITH MANUAL DIFF Comments: PATIENT WAS FASTINGPERFORMED BY: [facility]University [facility]6370 [facility] [id number] Information: [id number] (09549) Immature Grans (Abs) 0.0 {x10E3/uL} (Normal) Range: [...] to dr sánchez; PATIENT WAS FASTINGPERFORMED BY: [facility] PharmaJer[facility] University Medical CenterTjrqzu8426 [facility] [id number] (22904) ALT (SGPT) 25 [iU]/L (Normal) Range: 0-32 AST (SGOT) 21 [iU]/L (Normal) Range: 0-40 Alkaline Phosphatase, S 103 [iU]/L (Normal) Range: 39-117 Bilirubin, Direct 0.16 mg/dL (Normal) Range: 0.00-0.40 Bilirubin, Total 0.8 mg/dL (Normal) Range: 0.0-1.2 Albumin, Serum 4.7 g/dL (Normal) Range: 3.5-5.5 Protein, Total, Serum 7.1 g/dL (Normal) Range: 6.0-8.5 :41 LIPID PANEL (12550) Comments: send to dr sánchez; PATIENT WAS FASTINGPERFORMED BY: [facility] PharmaJer[facility] University Medical CenterKbjigw7311 [facility] [id number] Information: [id number] 1 LDL Cholesterol Calc 104 mg/dL (Abnormal) Range: 0-99 LDL/HDL Ratio 2.7 {ratio_units} (Normal) Range: 0.0-3.2 HDL Cholesterol 39 mg/dL (Abnormal) Comments: According to ATP-III Guidelines, HDL-C >59 mg/dL is considered anegative risk factor for CHD. VLDL Cholesterol Leonel 20 mg/dL (Normal) Range: 5-40 Triglycerides 100 mg/dL (Normal) Range: 0-149 Cholesterol, Total 163 mg/dL (Normal) Range: 100-199 :47 HgA1C , Office (33876) HgA1C , Office 5.7 % (Normal) Range: 4.6 - 7.1 :47 Blood Glucose , Office (35934) Blood Glucose , Office 142 (Normal) :18 Microscopic Examination Comments: PATIENT WAS FASTINGPERFORMED BY: [facility] Lxnior[address] RoadDublin [place] [id number] Bacteria None seen (Normal) Mucus Threads Present (Normal) Epithelial Cells (non renal) 0-10 {/hpf} (Normal) Range: 0 - 10 RBC None seen {/hpf} (Normal) Range: 0 - 3 WBC 0-5 {/hpf} (Normal) Range: 0 - 5 :18 Vitamin D Hydroxy (20479) Comments: PATIENT WAS FASTINGPERFORMED BY: [facility] Kuesdc80[address] RoadDublin [place] [id number] Vitamin D, 25-Hydroxy 21.1 ng/mL (Abnormal) Range: 30.0-100.0 Comments: Vitamin D deficiency has been defined by the [place] of[place]icine and an Endocrine Society practice guideline as alevel of serum 25-OH vitamin D less than 20 ng/mL (1,2).The Endocrine Society went on to further define vitamin Dinsufficiency as a level between 21 and 29 ng/mL (2).1. IOM ([place] [employer]). 2010. Dietary reference intakes for calcium and D. [place]: The National Academies Press.2. Catie MF, Karon NC, Myron KESSLER, et al. Evaluation, treatment, and prevention of vitamin D deficiency: an Endocrine Society clinical practice guideline. JCEM. 2010; 96(7):1911-30. :18 TSH (58690) Comments: PATIENT WAS FASTINGPERFORMED BY: CB [facility] Jmjknc[address] RoadDublin [place] [id number] TSH 2.340 {uIU/mL} (Normal) Range: 0.450-4.500 :18 URINALYSIS, W/ MICRO (31736) Comments: PATIENT WAS FASTINGPERFORMED BY: [facility] Kwzmtg5[address] RoadDublin [place] [id number] Microscopic Examination See below: (Normal) Microscopic Examination MICRON (Normal) Comments: Microscopic follows if indicated. Nitrite, Urine Negative (Normal) Urobilinogen,Semi-Qn 0.2 mg/dL (Normal) Range: 0.0-1.9 Bilirubin Negative (Normal) Occult Blood Negative (Normal) Ketones Negative (Normal) Glucose Negative (Normal) Protein Negative (Normal) WBC Esterase Negative (Normal) Appearance Clear (Normal) pH 6.0 (Normal) Range: 5.0-7.5 Urine-Color Yellow (Normal) Specific Trosper 1.024 (Normal) Range: 1.005-1.030 :18 MICROALBUMIN: CREATININE RATIO Comments: PATIENT WAS FASTINGPERFORMED BY: [facility] PharmaJersey Shore University Medical CenterVgobis4247 [facility] [id number] (46760) AND (78390) Microalb/Creat Ratio 2.7 {mg/g_creat} (Normal) Range: 0.0-30.0 Creatinine, Urine 138.1 mg/dL (Normal) Range: 15.0-278.0 Microalbumin, Urine 3.7 ug/mL (Normal) Range: 0.0-17.0 :18 METABOLIC PANEL, COMPREHENSIVE Comments: PATIENT WAS FASTINGPERFORMED BY: [employer] Rtkota7160 [facility] [id number] (64336) ALT (SGPT) 25 [iU]/L (Normal) Range: 0-32 [...] mg/dL (Normal) Range: 65-99 :18 LIPID PANEL (80612) Comments: PATIENT WAS FASTINGPERFORMED BY: [facility] [id number] LDL/HDL Ratio 2.8 {ratio_units} (Normal) Range: 0.0-3.2 [...] MANUAL DIFF Comments: PATIENT WAS FASTINGPERFORMED BY: [employer]70 [facility] [id number] Information: [id number] (00929) Immature Grans (Abs) 0.0 {x10E3/uL} (Normal) Range: [...] (Normal) Range: 3.4-10.8 :31 HgA1C , Office (35684) HgA1C , Office 5.5 % (Normal) Range: 4.6 - 7.1 :31 Blood Glucose , Office (88830) Blood Glucose , Office 113 (Normal) :23 HgA1C , Office (23250) HgA1C , Office 6.1 % (Normal) Range: 4.6 - 7.1 :23 Blood Glucose , Office (04397) Blood Glucose , Office 118 (Normal) :33 Microscopic Examination Comments: PATIENT WAS FASTINGPERFORMED BY: LabCoJer[facility] University Medical CenterRbsoeu3281 [facility] [id number] Bacteria None seen (Normal) Mucus Threads Present (Normal) Epithelial Cells (non renal) 0-10 {/hpf} (Normal) Range: 0 - 10 RBC 0-3 {/hpf} (Normal) Range: 0 - 3 WBC 0-5 {/hpf} (Normal) Range: 0 - 5 :27 FECAL OCCULT HGB ASSAY- tubes sent home (94906) FECAL OCCULT HGB ASSAY, QUAL, 1-3 SIMULTANEOU negative (Normal) :33 TSH (68254) Comments: PATIENT WAS FASTINGPERFORMED BY: [employer] [place] [facility] [id number] TSH 3.330 {uIU/mL} (Normal) Range: 0.450-4.500 :33 URINALYSIS, W/ MICRO (64846) Comments: PATIENT WAS FASTINGPERFORMED BY: [employer] [facility] [id number] Microscopic Examination MICRON (Normal) Comments: Microscopic follows if indicated. Microscopic Examination See below: (Normal) Nitrite, Urine Negative (Normal) Urobilinogen,Semi-Qn 0.2 mg/dL (Normal) Range: 0.0-1.9 Bilirubin Negative (Normal) Occult Blood Negative (Normal) Ketones Negative (Normal) Glucose Negative (Normal) Protein Negative (Normal) WBC Esterase Negative (Normal) Appearance Clear (Normal) Urine-Color Yellow (Normal) pH 7.0 (Normal) Range: 5.0-7.5 Specific Trosper 1.021 (Normal) Range: 1.005-1.030 :33 MICROALBUMIN: CREATININE RATIO Comments: PATIENT WAS FASTINGPERFORMED BY: [employer] [address] [facility] [id number] (52034) AND (15833) Microalb/Creat Ratio 1.6 {mg/g_creat} (Normal) Range: 0.0-30.0 Creatinine, Urine 154.5 mg/dL (Normal) Range: 15.0-278.0 Microalbumin, Urine 2.5 ug/mL (Normal) Range: 0.0-17.0 :33 METABOLIC PANEL, COMPREHENSIVE Comments: PATIENT WAS FASTINGPERFORMED BY: [employer] [address] [facility] [id number] (13795) ALT (SGPT) 24 [iU]/L (Normal) Range: 0-32 [...] Glucose, Serum 105 mg/dL (Abnormal) Range: 65-99 86-Wzp-880960:33 LIPID PANEL (29578) Comments: PATIENT WAS FASTINGPERFORMED BY: LabCoJer[facility] Shore [facility] Medical CenterXdwwuj7372 [facility] [id number] LDL Cholesterol Calc 115 mg/dL (Abnormal) Range: 0-99 LDL/HDL Ratio 2.9 {ratio_units} (Normal) Range: 0.0-3.2 HDL Cholesterol 39 mg/dL (Abnormal) Comments: According to ATP-III Guidelines, HDL-C >59 mg/dL is considered anegative risk factor for CHD. VLDL Cholesterol Leonel 32 mg/dL (Normal) Range: 5-40 Cholesterol, Total 186 mg/dL (Normal) Range: 100-199 Triglycerides 160 mg/dL (Abnormal) Range: 0-149 88-Rtc-729680:33 CBC WITH MANUAL DIFF Comments: PATIENT WAS FASTINGPERFORMED BY: [facility]6370 [facility] [id number] Information: [id number] (62300) Immature Grans (Abs) 0.0 {x10E3/uL} (Normal) Range: [...] (Normal) Range: 4.0-10.5 :33 Vitamin D Hydroxy (18587) Comments: PATIENT WAS FASTINGPERFORMED BY: LabCoJer[facility] Shore [facility] Medical CenterZdoieh4675 [facility] [id number] Vitamin D, 25-Hydroxy 46.4 ng/mL (Normal) Range: 30.0-100.0 Comments: Vitamin D deficiency has been defined by the [place] [facility] and an Endocrine Society practice guideline as alevel of serum 25-OH vitamin D less than 20 ng/mL (1,2).The Endocrine Society went on to further define vitamin Dinsufficiency as a level between 21 and 29 ng/mL (2).1. IOM ([place] [employer] [place]). 2010. Dietary reference intakes for calcium and D. [place]: The National Academies Press.2. Catie VÁSQUEZ, Kaorn ACEVEDO, Myron KESSLER, et al. Evaluation, treatment, and prevention of vitamin D deficiency: an Endocrine Society clinical practice guideline. JCEM. 2010; 96(7):1911-30. :58 HgA1C , Office (07517) HgA1C , Office 6.0 % (Normal) Range: 4.6 - 7.1 :58 Blood Glucose , Office (96137) Blood Glucose , Office 92 (Normal) :59 HgA1C , Office (90130) HgA1C , Office 5.5 % (Normal) Range: 4.6 - 7.1 :59 Blood Glucose , Office (05254) Blood Glucose , Office 105 (Normal) :40 LIPID PANEL (25568) Comments: PATIENT WAS FASTINGPERFORMED BY: LabCoJer[facility] Shore [facility] Medical CenterXqrniu1454 [facility] [id number] LDL Cholesterol Calc 144 mg/dL (Abnormal) Range: 0-99 LDL/HDL Ratio 3.1 {ratio_units} (Normal) Range: 0.0-3.2 VLDL Cholesterol Leonel 24 mg/dL (Normal) Range: 5-40 HDL Cholesterol 46 mg/dL (Normal) Comments: According to ATP-III Guidelines, HDL-C >59 mg/dL is considered anegative risk factor for CHD. Triglycerides 118 mg/dL (Normal) Range: 0-149 Cholesterol, Total 214 mg/dL (Abnormal) Range: 100-199 3-Pgq-512176:40 TSH (10521) Comments: PATIENT WAS FASTINGPERFORMED BY: [facility]adoUniversity [facility]6370 [facility] [id number] TSH 2.430 {uIU/mL} (Normal) Range: 0.450-4.500 4-Gyk-987553:40 URINALYSIS, W/ MICRO (89580) Comments: PATIENT WAS FASTINGPERFORMED BY: [facility]adoUniversity [facility] Health[address] [place] [address] [id number] Microscopic Examination See below: (Normal) Microscopic Examination MICRON (Normal) Comments: Microscopic follows if indicated. Nitrite, Urine Negative (Normal) Urobilinogen,Semi-Qn 0.2 mg/dL (Normal) Range: 0.0-1.9 Bilirubin Negative (Normal) Occult Blood Negative (Normal) Ketones Negative (Normal) Glucose Negative (Normal) Protein Negative (Normal) WBC Esterase Negative (Normal) Appearance Clear (Normal) Urine-Color Yellow (Normal) pH 5.5 (Normal) Range: 5.0-7.5 Specific Trosper 1.022 (Normal) Range: 1.005-1.030 5-Von-928914:40 MICROALBUMIN: CREATININE RATIO Comments: PATIENT WAS FASTINGPERFORMED BY: [facility] PharmaJersey Shore University Medical CenterKncuis2647 [facility] [id number] (42517) AND (23887) Microalb/Creat Ratio 2.2 {mg/g_creat} (Normal) Range: 0.0-30.0 Creatinine, Urine 124.7 mg/dL (Normal) Range: 15.0-278.0 Microalbumin, Urine 2.7 ug/mL (Normal) Range: 0.0-17.0 5-Pyp-985895:40 METABOLIC PANEL, COMPREHENSIVE Comments: PATIENT WAS FASTINGPERFORMED BY: [facility]6370 [facility] [id number] (94695) ALT (SGPT) 27 [iU]/L (Normal) Range: 0-32 [...] Glucose, Serum 119 mg/dL (Abnormal) Range: 65-99 6-Nia-834820:40 CBC WITH MANUAL DIFF Comments: PATIENT WAS FASTINGPERFORMED BY: [facility]6370 [facility] [id number] Information: [id number] (73707) Immature Grans (Abs) 0.0 {x10E3/uL} (Normal) Range: [...] 3.77-5.28 WBC 5.9 {x10E3/uL} (Normal) Range: 4.0-10.5 0-Kek-861500:40 Microscopic Examination Comments: PATIENT WAS FASTINGPERFORMED BY: [facility]First[facility] [id number] Bacteria None seen (Normal) Mucus Threads Present (Normal) Epithelial Cells (non renal) 0-10 {/hpf} (Normal) Range: 0 - 10 RBC None seen {/hpf} (Normal) Range: 0 - 3 WBC 0-5 {/hpf} (Normal) Range: 0 - 5 :59 HgA1C , Office (14291) HgA1C , Office 5.8 % (Normal) Range: 4.6 - 7.1 :59 Blood Glucose , Office (63574) Blood Glucose , Office 137 (Normal) :50 URINE SHANI CULTURE (MICHAEL Comments: PATIENT NOT FASTINGPERFORMED BY: [facility] [id number] Information: SRC:UR [id number] COL COUNT) (00865) Result 1 MUG (Normal) Comments: Mixed urogenital flora10,000-25,000 colony forming units per mL Urine Final report (Normal) Culture,Comprehensive 09-Oct-20118:53 Urinalysis, Office (52483) UA - BILIRUBIN Large (Normal) UA - BLOOD Negative (Normal) UA - GLUCOSE Negative (Normal) UA - KETONES Negative mg/dL (Normal) UA - LEUKOCYTE ESTERASE Negative (Normal) UA - NITRITE Negative (Normal) UA - PH 6.0 (Normal) UA - PROTEIN Negative mg/dL (Normal) UA - SPECIFIC GRAVITY 1.025 (Normal) URINE UROBILINGN MICHAEL TIMED Normal mg/dL (Normal) 62-Qpb-537730:17 Microscopic Examination Comments: PATIENT WAS FASTINGPERFORMED BY: [facility]6370 [facility] [id number] Bacteria None seen (Normal) Mucus Threads Present (Normal) Epithelial Cells (non renal) 0-10 {/hpf} (Normal) Range: 0 - 10 RBC 0-3 {/hpf} (Normal) Range: 0 - 3 WBC 0-5 {/hpf} (Normal) Range: 0 - 5 53-Cqv-493612:32 L/S SPINE,MIN 4 VIEWS Radiology Report See [...] Saxena M.D.September 24, 2011 at 3:23:12 PM [id number] Signed GP/GP If you are the referring physician and would like t o consult with theradiologist who provided this interpretation, please contact Marcelo Choudhury at [phone]. If this radiologist is unavailable, youwill be directed to another radiologist to assist. If you are a patient with a question regarding this report, pleasecontactyour referring physician directly. Professional Interpretation Provided By: [employer], Phone ,Fax Dictated on 09/24/11 1000 by Odessa VIDALES,Adrianascribed on 09/24/11 1530 by ITS IMPORTSign by Odessa VIDALES,Ross on 09/24/111529 Sign by: Ross Saxena MD 80-Kuf-645648:17 Hemoglobin Glyclated (HGB A1C) Comments: PATIENT WAS FASTINGPERFORMED BY: [employer]70 [facility] [id number] (62358) Hemoglobin A1c 5.6 % (Normal) Range: 4.8-5.6 Comments: . Increased risk for diabetes: 5.7 - 6.4 Diabetes: >6.4 Glycemic control for adults with diabetes: <7.0 48-Hzl-021939:17 LIPID PANEL (70441) Comments: PATIENT WAS FASTINGPERFORMED BY: [employer]70 [facility] [id number] LDL/HDL Ratio 3.2 {ratio_units} (Normal) Range: 0.0-3.2 LDL Cholesterol Calc 126 mg/dL (Abnormal) Range: 0-99 VLDL Cholesterol Leonel 30 mg/dL (Normal) Range: 5-40 HDL Cholesterol 40 mg/dL (Normal) Comments: According to ATP-III Guidelines, HDL-C >59 mg/dL is considered anegative risk factor for CHD. Triglycerides 151 mg/dL (Abnormal) Range: 0-149 Cholesterol, Total 196 mg/dL (Normal) Range: 100-199 46-Klp-278727:17 TSH (48896) Comments: PATIENT WAS FASTINGPERFORMED BY: [employer] [facility] [id number] TSH 2.330 {uIU/mL} (Normal) Range: 0.450-4.500 91-Phf-018939:17 URINALYSIS, W/ MICRO (65552) Comments: PATIENT WAS FASTINGPERFORMED BY: [facility]6370 [facility] [id number] Microscopic Examination See below: (Normal) Microscopic Examination MICRON (Normal) Comments: Microscopic follows if indicated. Nitrite, Urine Negative (Normal) Urobilinogen,Semi-Qn 0.2 mg/dL (Normal) Range: 0.0-1.9 Bilirubin Negative (Normal) Occult Blood Negative (Normal) Ketones Negative (Normal) Glucose Negative (Normal) Protein Negative (Normal) WBC Esterase Negative (Normal) Appearance Clear (Normal) Urine-Color Yellow (Normal) pH 5.0 (Normal) Range: 5.0-7.5 Specific Trosper 1.022 (Normal) Range: 1.005-1.030 01-Eqp-956654:17 MICROALBUMIN: CREATININE RATIO Comments: PATIENT WAS FASTINGPERFORMED BY: [facility]6370 [facility] [id number] (18769) AND (45725) Microalb/Creat Ratio 2.4 {mg/g_creat} (Normal) Range: 0.0-30.0 Microalbumin, Urine 3.0 ug/mL (Normal) Range: 0.0-17.0 Creatinine, Urine 125.5 mg/dL (Normal) Range: 15.0-278.0 [id number] METABOLIC PANEL, COMPREHENSIVE Comments: PATIENT WAS FASTINGPERFORMED BY: [facility] [id number] ([id number]) ALT (SGPT) 18 [iU]/L (Normal) Range: 0-40 [...] Glucose, Serum 100 mg/dL (Abnormal) Range: 65-99 49-Kkb-674368:17 CBC WITH MANUAL DIFF Comments: PATIENT WAS FASTINGPERFORMED BY: [facility]Co[facility] CenterVqcarq5982 [facility] [id number] Information: [id number] (71068) Immature Grans (Abs) 0.0 {x10E3/uL} (Normal) Range: [...] (Normal) Range: 4.0-10.5 :17 Vitamin D Hydroxy (10033) Comments: PATIENT WAS FASTINGPERFORMED BY: [place] [id number] Vitamin D, 25-Hydroxy 15.2 ng/mL (Abnormal) Range: 30.0-100.0 Comments: Vitamin D deficiency has been defined by the [place] [facility] and an Endocrine Society practice guideline as alevel of serum 25-OH vitamin D less than 20 ng/mL (1,2).The Endocrine Society went on to further define vitamin Dinsufficiency as a level between 21 and 29 ng/mL (2).1. IOM ([place] of [employer]). 2010. Dietary reference intakes for calcium and D. [place]: The National Academies Press.2. Catie MF, Karon NC, Myron KESSLER, et al. Evaluation, treatment, and prevention of vitamin D deficiency: an Endocrine Society clinical practice guideline. JCEM. 2010; 96(7):1911-30. :46 CK, Total+Isoenzymes, Serum Comments: PATIENT NOT FASTINGPERFORMED BY: [place] [id number] CK-BB 0 % (Normal) CK-MB 0 % (Normal) Range: 0-3 Macro Type 1 0 % (Normal) CK-MM 100 % (Normal) Range: 97-100 Macro Type 2 0 % (Normal) Creatine Kinase,Total,Serum 82 U/L (Normal) Range: 24-173 35-Tdu-102872:00 Urinalysis, Office (70554) UA - BILIRUBIN Negative (Normal) UA - BLOOD Negative (Normal) UA - GLUCOSE Negative (Normal) UA - KETONES Negative mg/dL (Normal) UA - LEUKOCYTE ESTERASE Negative (Normal) UA - NITRITE Negative (Normal) UA - PH 5.0 (Normal) UA - PROTEIN Negative mg/dL (Normal) UA - SPECIFIC GRAVITY 1.025 (Normal) URINE UROBILINGN MICHAEL TIMED Normal mg/dL (Normal) :49 HgA1C , Office (66834) HgA1C , Office 6.4 % (Normal) Range: 4.6 - 7.1 :49 Blood Glucose , Office (11043) Blood Glucose , Office 186 (Normal) 40-Lra-967200:14 Metabolic Panel, Basic Comments: PATIENT NOT FASTINGPERFORMED BY: [facility]Co[facility] CenterEbmvrm5155 [facility] [id number] Information: [id number] (46531) Calcium, Serum 9.4 mg/dL (Normal) Range: 8.7-10.2 [...] Glucose, Serum 202 mg/dL (Abnormal) Range: 65-99 43-Lvi-74050:45 Urinalysis, Office (50071) UA - BILIRUBIN Small (Normal) UA - BLOOD Negative (Normal) UA - GLUCOSE Negative (Normal) UA - KETONES Small mg/dL (Normal) UA - LEUKOCYTE ESTERASE Negative (Normal) UA - NITRITE Negative (Normal) UA - PH 5.0 (Normal) UA - PROTEIN Negative mg/dL (Normal) UA - SPECIFIC GRAVITY 1.025 (Normal) URINE UROBILINGN MICHAEL TIMED Normal mg/dL (Normal) 4-Klz-792263:50 URINE SHANI CULTURE-MICHAEL COL Comments: PATIENT NOT FASTINGPERFORMED BY: [facility] [id number] Information: [id number] [place] (22291) Result 1 ECV (Normal) Comments: Escherichia coli, [...] S Urine Final report (Normal) Culture,Comprehensiv e 7-Hhc-980846:27 Urinalysis, Office (18751) UA - BILIRUBIN Small (Normal) UA - BLOOD Hemolyzed Large (Normal) UA - GLUCOSE Negative (Normal) UA - KETONES Negative mg/dL (Normal) UA - LEUKOCYTE ESTERASE Small (Normal) UA - NITRITE Negative (Normal) UA - PH 6.0 (Normal) UA - PROTEIN 300 mg/dL (Normal) UA - SPECIFIC GRAVITY 1.025 (Normal) URINE UROBILINGN MICHAEL TIMED Normal mg/dL (Normal) 33-Cdv-824105:03 CALCIFIDIOL (09156) VIT D Comments: PATIENT NOT FASTINGPERFORMED BY: [employer] / [employer] [place] [id number] Information: [id number] 25 Vitamin D, 25-Hydroxy 28.0 ng/mL (Abnormal) Range: 32.0-100.0 Comments: Effective January 26, 2011 Vitamin D, 25-Hydroxy reference intervals will be changing to 30-100. .Recent studies consider the lower li lucio of 32.0 ng/mL to be athreshold for optimal health.Francisco Javier FOSTER. J Nutr. 2004;135(2):317-22. 82-Phv-125167:09 KNEE,4 OR MORE VIEWS Radiology Report See [...] 10/03/10 1325 Sign by: Ross Saxena MD 96-Wcd-27456:00 RHEUMATOID FACTOR-QUANT Comments: PATIENT NOT FASTINGPERFORMED BY: [employer]So[employer]10 Wornbo7233 [facility] [id number] BY: [place] [id number] (62482) RA Latex Turbid. 8.6 {IU/mL} (Normal) Range: 0.0-13.9 :00 PARATHORMONE (28103) Comments: PATIENT NOT FASTINGPERFORMED BY: [employer] Zzntrk4256 [facility] [id number] BY: [employer] [id number] PTH, Intact 23 pg/mL (Normal) Range: 15-65 :00 CALCIUM SERUM (12504) Comments: PATIENT NOT FASTINGPERFORMED BY: [employer] Pjylds2960 [facility] [id number] BY: [employer] [id number] Calcium, Serum 9.4 mg/dL (Normal) Range: 8.7-10.2 CCP Antibodies IgG/IgA 3 {units} (Normal) Comments: PATIENT NOT FASTINGPERFORMED BY: [employer] Esidvz7984 [facility] [id number] BY: [employer] [id number] Range: 0-19 Comments: Negative <20 Weak positive 20 - 39 Moderate positive 40 - 59 Strong positive >59 33-Odu-278897:15 STEVE DIR SEMI-QL STEVE DIRECT 33 AU/mL (Normal) 88-Dcf-767593:15 ANTI JO1 ANTI ABIGAIL 7 AU/mL (Normal) [...] {uIU/mL} (Normal) Range: 0.358-3.74 :15 VIT D,25 67975 13.3 ng/mL (Abnormal) Comments: appt 09/29/10 Range: 32.0-100.0 Comments: Recent studies consider the lower limit of 32.0 ng/mL to dory threshold for optimal health.Francisco Javier FOSTER. J Nutr. 2004;135(2):317-22.Performed at: [place] [address]Lab Director: Hamida Boyer MD, Phone: [phone] 05-Vro-55344:20 HEPATOBILIARY IMAGING Radiology Report See Note (Normal) [...] 06/05/10 1347 Sign by: Ross Saxena MD 42-Twi-51965:51 GALLBLADDER Radiology Report See Note (Normal) Comments: [...] 1015 Sign by: ADRIAN OCASIO MD H.PYLORI [id number] < 0.9 U/mL Range: 0.0-0.8 3:08 (Normal) Comments: Negative <0.9 Indeterminate 0.9 - 1.0 Positive >1.0Performed at: - [facility] [address] [id number] Director: Hamida Boyer MD, Phone: [phone] 23-Rkv-841365:21 FECAL OCCULT- Tubes sent home (34212) FECAL OCCULT HGB ASSAY, QUAL, 1-3 SIMULTANEOU negative (Normal) 11-Sep-20088:22 THYROID IMAGING ONLY Radiology Report See Note (Normal) Comments: Exam Number: [id number] THYROID SCAN AND UPTAKE The patient was [...] on August. Reported By: KEVIN YUAN M.D. 00-Lmu-716762:05 THYROID Radiology Report See Note (Normal) Comments: Exam Number: [id number] CLINICAL:52-year-old female with nodules ULTRASOUND THYROID COMPARISON:None. [...] Report See Note (Normal) Comments: Exam Number: [id number] CLINICAL:52-year-old female with swollen areas at base of neck, anteriorly. Possible supraclavicular masses. History of swelling in the supraclavicular regions for 6 days which is not present in the director of hemophilia, but swells later in the day. No [...] further evaluation. Reported By: DONTAE ESPINAL M.D. 27-Ptl-495349:47 UPPER EXT/JT ONLY (ROUTINE) Radiology Report See Note (Normal) Comments: Exam Number: [id number] MRI OF THE RIGHT SHOULDER WITHOUT CONTRAST. [...] normal limits. The superior, anterior, and posterior nagelina are intact. There is a s mall [...] subacromial fat. Reported By: EMELI COLEMAN M.D. 5-Zrl-325144:03 SHOULDER,MIN 2 VIEWS (MT) Radiology Report See Note (Normal) Comments: Exam Number: [id number] RIGHT SHOULDER, 4 VIEWS CLINICAL STATEMENTPain. PRIOR STUDIESNone. No acute fracture, joint dislocation or AC joint separation is shown. Joint spaces are maintained. No significa nt spurring or pathologiccalcifications. No suspicious bone lesions. Right lung apex isclear. IMPRESSIONNegative right shoulder. Reported By: LESLI CURIEL M.D. 45-Njn-728812:15 GASTRIC EMPTYING STUDY Radiology Report See Note (Normal) Comments: Exam Number: [id number] NUCLEAR MEDICINE GASTRIC EMPTYING STUDY SOLID PHASE [...] II, controlled, with no complications : Reviewed Turret Lathe Set Up Operator Letter Indication: Diabetes mellitus type II, [...] mellitus, well controlled Abscess, abdomen : Reviewed Turret Lathe Set Up Operator Letter Indication: Abscess, abdomen Type II diabetes mellitus, well controlled : Eprescribed prescriptions (G8553) Indication: Type II diabetes mellitus, well controlled Abscess, abdomen : Reviewed Turret Lathe Set Up Operator Letter- dr Thom perez wound care [...] : Follow up in 2 weeks with [facility] for diabetic teaching Indication: Other specified abnormal [...] disease) Planned Observations Rapid Strep Test, Office (82449)Indication: Sore throat On: 02-Zug-850971:31 Request SED RATE ERYTHROCYTE (02125)Indication: Abscess, abdomen On: 16-Dec-2015 Request BACT CULTURE ANY-ANAEROBIC (34311)Indication: Abscess, abdomen On: 13-Dec-20157:42 Request CALCIFIDIOL (26491) VIT D 25Indication: Vitamin D deficiency, unspecified On: 18-Hip-005171:30 Request CPK MB FRACTION (28812)Indication: Chest pain at rest On: 1-Yzw-540335:30 Request CREATINE KINASE TOTAL (06173)Indication: Chest pain at rest On: 7-Nwi-397880:30 Request Troponin I (70368)Indication: Chest pain On: 54-Tmu-595033:19 Request CPK MB FRACTION (45797)Indication: Chest pain On: 46-Yfu-109333:19 Request CREATINE KINASE TOTAL (19677)Indication: Chest pain On: 26-Nuf-334720:19 Request C-Reactive Protein (36221)Indication: Chest pain On: 14-Jnn-177330:19 Request Vitamin D Hydroxy (58454)Indication: Vitamin D deficiency, unspecified On: 32-Zkp-67104:00 Request TSH (06010)Indication: Diabetes mellitus type II, controlled, with no complications On: :59 Request URINALYSIS, W/ MICRO (88079)Indication: Diabetes mellitus type II, controlled, with no complications On: :59 Request MICROALBUMIN: CREATININE RATIO (38235) AND (44513)Indication: Diabetes mellitus type II, controlled, with no complications On: :59 Request METABOLIC PANEL, COMPREHENSIVE (07930)Indication: Diabetes mellitus type II, controlled, with no complications On: 90-Gia-48810:59 Request LIPID PANEL (20983)Indication: Hypercholesteremia On: :59 Request CBC W/AUTO DIFF WBC (09867)Indication: Diabetes mellitus type II, controlled, with no complications On: :59 Request Blood Glucose , Office (35231)Indication: Diabetes mellitus type II, controlled, with no complications On: 70-Oyv-75822:51 Request Lipid Panel (52438)Indication: Hypercholesteremia On: :10 Request HEPATIC FUNCTION PANEL (67523)Indication: Hypercholesteremia On: :10 Request LIPID PANEL (40625)Indication: Hypercholesteremia On: 65-Ano-73724:48 Request CPK TOTAL & ISOENZYMES (14692)Indication: Epigastric pain On: :33 Request Urinalysis, Office (03379)Indication: Dysuria On: :01 Request CCP ANTIBODY (68533)Indication: Pain in joint, unspecified site On: 72-Cxk-81497:51 Request STEVE (ANTINUCLEAR ANTIBODY) (59105)Indication: Myalgia On: :24 Request CALCIFIDIOL (93699) VIT D 25Indication: Myalgia On: :20 Request TSH (84221)Indication: Myalgia On: :20 Request SED RATE ERYTHROCYTE (22681)Indication: Myalgia On: :20 Request STEVE (ANTINUCLEAR ANTIBODY) (29754)Indication: Myalgia On: 34-Amo-576558:20 Request Anti-Abigail-1 (77675)Indication: Myalgia On: :20 Request Creatine Kinase Total (92443)Indication: Myalgia On: :19 Request C-Reactive Protein (69838)Indication: Myalgia On: :19 Request HELICOBACTER PYLORI ANTIBODY (59885)Indication: Epigastric pain On: 66-Kzi-093440:21 Request Planned Procedures B 12 Injection, 1000 mcg On: 05-Jan-2018 Intent (J3420)By: Leticia Pugh DO Comments: lot: [id number]: ite/route: R del/IMamt: 1mLVIS signed when applicableCRISTINO Casey DO, Kathleen B 12 Injection, 1000 mcg On: 09-Dec-2017 Intent (J3420)By: Leticia Pugh DO Comments: Vitamin B12 1000 mcg injectionLot--[id number]--jan 2019L Delt IMpt tolerated wellTLOCKLEAR, STILL OPERATOR BRANDY Lexy ISAACS Leticia B 12 Injection, 1000 mcg On: 26-Nov-2017 Intent (J3420)By: Tammy Shaw Comments: lot:[id number]:jan 2019site/route:L deltoid amt:1ml 1,000mcg/mlJasmin, CCMA B 12 Injection, 1000 mcg On: 15-Nov-2017 Intent (J3420)By: Leticia Pugh DO Comments: lot: [id number]: 01/24site/route: L del/IMamt: 1mLVIS signed when applicableGailCRISTINO quezada DO, Kathleen INJECTION, VITAMIN B-12 On: 27-Oct-2017 Intent CYANOCOBALAMIN, UP TO 1000 MCG Comments: lot:[id number]:rte:IM right deltoid dose:1ml given by:fozia Overton LPN (Special Coverage Instructions Apply. See CIM: 45-4 and MCM: 2049) (J3420)By: Visit, Nurse B 12 Injection, 1000 mcg On: 15-Oct-2017 Intent (J3420)By: Visit, Nurse Comments: lot:[id number]:05/2019rte:IM left arm dose:1ml given by:fozia Overton LPN B 12 Injection, 1000 mcg On: 30-Sep-2017 Intent (J3420)By: Visit, Nurse Comments: [id number]/81351lt, 99930lrhm dltd, IMCM, TARPER B 12 Injection, 1000 mcg On: 16-Sep-2017 Intent (J3420)By: Rolando Calderon Comments: Vitamin b12 1000mcg injection lot:[id number]:05/2018L DELT IMpt tolerated well MSMITHDANIELN B 12 Injection, 1000 mcg On: 02-Sep-2017 Intent (J3420)By: Visit, Nurse Comments: 1 ml given rt arm lot [id number] EXP 05/24 B 12 Injection, 1000 mcg On: 19-Aug-2017 Intent (J3420)By: Rolando Calderon Comments: Vitamin b12 1000mcg injection lot:[id number]:12/2018L DELT IMpt tolerated well MSMITH,STILL OPERATOR BRANDY B 12 Injection, 1000 mcg On: 06-Aug-2017 Intent (J3420)By: Leticia Pugh DO Comments: vitamin b12 1000mcg injectionlot: [id number]: 12/2018L DELT IMpt tolerated wellAD STILL OPERATOR BRANDY Lexy DO, Leticia B 12 Injection, 1000 mcg On: 22-Jul-2017 Intent (J3420)By: Leticia Pugh DO Comments: Vitamin b12 1000mcg injection lot:[id number]:12/2018R DELT IMpt tolerated well MSMITH,STILL OPERATOR BRANDY Lexy DO, Leticia B 12 Injection, 1000 mcg On: 09-Jul-2017 Intent (J3420)By: Leticia Pugh DO Comments: Vitamin b12 1000mcg injection lot:[id number]:12/2018L DELT IMpt tolerated well MSMITH,STILL OPERATOR BRANDY Lexy DO, Leticia B 12 Injection, 1000 mcg On: 24-Jun-2017 Intent (J3420)By: Leticia Pugh DO Comments: vitamin b12 1000mcg injectionlot: [id number]: 12/2018L DELT IMpt tolerated wellAD STILL OPERATOR BRANDY Lexy DO, Leticia B 12 Injection, 1000 mcg On: 11-Jun-2017 Intent (J3420)By: Tanvi Hawthorne CNP Comments: lot [id number] 07/2018rt sfct1005 mcgas, STILL OPERATOR BRANDY B 12 Injection, 1000 mcg On: 28-May-2017 Intent (J3420)By: Visit, Nurse Comments: 6131918.49822746cysS dltd, IM Toradol Injection, 30 mg On: 28-May-2017 Intent (J1885)By: Visit, Nurse Comments: 44732vc3/2019R hip, IM30mg/2 unitsMLONG, STILL OPERATOR BRANDY Toradol Injection, 30 mg On: 21-May-2017 Intent (J1885)By: Leticia Pugh DO Comments: toradol 30mg injectionlot: 86-981-DWpbt: 10/2018L GMpt tolerated wellAD STILL OPERATOR BRANDY Leticia Pugh DO X-RAY OF SACROILIAC JOINT On: 21-May-2017 Intent (56911)By: Leticia Pugh DO, DO, Kathleen B 12 Injection, 1000 mcg On: 13-May-2017 Intent (J3420)By: Visit, Nurse Comments: 8865243.77299gmI dltd, iMMEGAN, STILL OPERATOR BRANDY B 12 Injection, 1000 mcg On: 29-Apr-2017 Intent (J3420)By: Leticia Pugh DO Comments: vitamin b12 1000mcg injectionlot: [id number]: 07/2018L DELT IMpt tolerated wellAD STILL OPERATOR BRANDY Leticia Pugh DO B 12 Injection, 1000 mcg On: 16-Apr-2017 Intent (J3420)By: Yamilex Duffy Comments: vitamin b12 1000mcg injectionlot: [id number]: 07/2018L DELT IMpt tolerated wellAD STILL OPERATOR BRANDY B 12 Injection, 1000 mcg On: 01-Apr-2017 Intent (J3420)By: Leticia Pugh DO Comments: vitamin b12 1000mcg injectionlot: [id number]: 07/2019L DELT IMpt tolerated wellAD STILL OPERATOR BRANDY Leticia Pugh DO B 12 Injection, 1000 mcg On: 18-Mar-2017 Intent (J3420)By: Leticia Pugh DO Comments: Lot:[id number]:07/2018Dose:1mlRoute:IMSite:l arm Given By:LATANYA signed Letciia Pugh DO B 12 Injection, 1000 mcg [...] injectionlot: 7062exp: 04/2018L DELT IMpt tolerated wellAD STILL OPERATOR BRANDY Lexy DO, Leticia B 12 Injection, 1000 mcg On: 01-Jan-2017 Intent (J3420)By: Leticia Pugh DO Comments: lot: [id number]: 04/26site/route: L del/IMamt: 1mLVIS signed when applicableChelsea, TARPER Lexy DO, Leticia B 12 Injection, 1000 mcg On: 18-Dec-2016 Intent (J3420)By: Leticia Pugh DO Comments: b12 1000mcg lot [id number]: 10/2017L Delt IMpt tolerated wellAD STILL OPERATOR BRANDY Lexy DO, Leticia B 12 Injection, 1000 [...] ite/route: L del/IMamt: 1mLVIS signed when applicableChelsea, TARPER Lexy DO, Leticia B 12 Injection, 1000 mcg On: 23-Oct-2016 Intent (J3420)By: Visit, Nurse Comments: 4353581.02/201936784ptPjrvi Dltd, IMmlong, bowl turner B 12 Injection, 1000 mcg On: 08-Oct-2016 Intent (J3420)By: Leticia Pugh DO Comments: lot: [id number]: 18site/route: L del/IMamt: 1mLVIS signed when applicableChelsea, TARPER Lexy DO, Leticia B 12 Injection, 1000 [...] On: 19-May-2016 Intent (J3420)By: Christoph CHOPRATanvi Comments: Lot:[id number]:09/2017Dose:1mlRoute:IMSite:l armGiven By:LATANYA signed Wax CurettesBy: Christoph CHOPRA Tanvi On: 19-May-2016 Intent E Ear Irrigation (11908)By: Christoph On: 19-May-2016 Intent Tanvi CHOPRA B [...] Leticia Pugh DO CAT SCAN OF ABDOMEN (69333)By: On: 12-Dec-2015 Intent LexyLeticia bain DO Lexy DO Leticia B 12 Injection, 1000 mcg On: 06-Dec-2015 Intent (J3420)By: Leticia Pugh DO Comments: B12lot:6185exp:ite:lt deltroute:IMdose:1mlD.JEANMARIE Ray DO Leticia Rocephin Injection, 2 Gram On: 04-Dec-2015 Intent (J0696)By: Tammy Ortez DO Comments: lot: [id number]: 03/08/18site/route: RGM and LGM/IMamt: 2GVIS signed when applicableGaillscee, TARPER B 12 Injection, 1000 mcg On: 25-Nov-2015 Intent (J3420)By: Leticia Pugh DO Comments: Lot:615Exp:06/23Dose:1mlRoute:IMSite:l armGiven By:MLVIS signed Lexy DO, Leticia B 12 Injection, 1000 mcg On: 08-Nov-2015 Intent (J3420)By: Leticia Pugh DO Comments: 1000 mcglot 51017/18le dltdIARAVIND Stover Lexy DO, Leticia B 12 Injection, 1000 mcg On: 22-Oct-2015 Intent (J3420)By: Visit, Nurse Comments: 15004/181mlLdltdML, STILL OPERATOR BRANDY B 12 Injection, 1000 mcg On: 03-Oct-2015 Intent (J3420)By: Henri Ray Comments: B12lot:6155exp:ite:rt deltroute:IMdose:1mlD.Emilynikolay JEANMARIE B 12 Injection, 1000 mcg On: 20-Sep-2015 Intent (J3420)By: Danika Caputo MD Comments: Lot:[id number]:07/23Dose:1mlRoute:IMSite:l armGiven By:LATANYA signed B 12 Injection, 1000 mcg On: 05-Sep-2015 Intent (J3420)By: Leticia Pugh DO Comments: B12lot:5200exp:07/22site:rt glutroute:imdose:1mlD.JEANMARIE Ray DO, Kathleen TD VACCINE ADULT (48633)By: On: 04-Apr-2015 Intent Henri Ray TDAP VACCINE >7 IM (98095)By: On: 04-Apr-2015 Intent Henri Ray Comments: Tdaplot:YJ1UUzvz:01/24/17site:lt deltoidroute:ImDEJEANMARIE Lemos B 12 Injection, 1000 mcg On: 04-Apr-2015 Intent (J3420)By: Henri Ray Comments: B12lot:5310exp:11/22site: rt deltroute:RUlsmq1vnCJCKIT, MA B 12 Injection, 1000 mcg On: 25-Feb-2015 Intent (J3420)By: Henri Ray Comments: B12lot:[id number]:06/22site: rt delroute:IMdose:1mlDESHA B 12 Injection, 1000 mcg On: 28-Jan-2015 Intent (J3420)By: Leticia Pugh DO Comments: Lot:[id number]:06/22Dose:1mlRoute:IMSite:l armGiven By DEVIS signed Leticia Pugh DO B 12 Injection, 1000 mcg On: 01-Jan-2015 Intent (J3420)By: Leticia Pugh DO Comments: Lot:[id number]:06/22Dose:1mlRoute:IMSite:l armGiven By:LATANYA signed Lexy DO, Leticia B 12 Injection, 1000 mcg On: 03-Dec-2014 Intent (J3420)By: Leticia Pugh DO Comments: lot: [id number]: 05/22site/route: L del/IMamt: 0.5mLVIS signed when applicableCRISTINO Casey Lexy DO, Leticia B 12 Injection, 1000 mcg On: 13-Sep-2014 Intent (J3420)By: Leticia Pugh DO Comments: Lot:[id number]:11.16Route:IMSite:R deltoidDose: 1 mLgiven by: Altagracia Dumas CMA Lexy DO, Leticia B 12 Injection, 1000 mcg On: 05-Sep-2014 Intent (J3420)By: Leticia Pugh DO Comments: Lot:[id number]:316Route:IMSite:R deltoidDose: 1 mLgiven by: CRISTINO Mathew DO, Kathleen EKG (77851)By: Lexy ISAACS, On: 05-Sep-2014 Intent Leticia Reza [...] On: 17-May-2014 Intent (J3420)By: Visit, Nurse Comments: [id number] Dltd, IMMegan, LPN1ml MRI - Brain (IV [...] Hawthorne CNP On: 29-Jan-2014 Intent E EKG (52096)By: Lexy ISAACS, On: 30-Nov-2013 Intent Leticia Reza DO Comments: nsr no acute chg SPECIMEN HANDLING/TRANSPORT On: 20-Nov-2013 Intent (86469)By: Tanvi Hawthorne CNP PNEUM VAC ADLT/IMUMNOSPR, On: 24-Nov-2012 Intent SBC/INTRM (08846)By: Lexy ISAACS, Comments: lot: [id number]: 09/24/13site/route: L deltoid/IMamt: 0.5mLVIS signed when applicableChelscee, Leticia Crespo DO Ultrasound - ThyroidBy: Lexy On: 24-Nov-2012 Intent , Leticia Reza DO IMMUNIZ ADMNIN, 1 VAC, On: 24-Nov-2012 Intent SNGL/COMBO (53091)By: Lexy DO, Leticia Lexy DO, Leticia Eprescribed prescriptions On: 24-Nov-2012 Intent (G8553)By: Carmela Chery EKG (50180)By: Yennifer Loya On: 15-Aug-2012 Intent ARAVIND Comments: nsr no acute chg Eprescribed prescriptions On: 15-Aug-2012 Intent (G8553)By: Yennifer Loya LPN Eprescribed prescriptions On: 16-May-2012 Intent (G8553)By: Lexy DO, Leticia Lexy DO, Leticia Eprescribed prescriptions On: 15-Feb-2012 Intent (G8553)By: Yennifer Loya LPN EKG (51719)By: Lexy ISAACS, On: 24-Sep-2011 Intent Leticia Lexy DO, Leticia Comments: nsr no acute chg Radiology - Lumbar SpineBy: On: 24-Sep-2011 Intent Lexy DO, Leticia Lexy DO, Leticia SPECIMEN HANDLING/TRANSPORT On: 27-Jan-2011 Intent (82562)By: Tanner NAZARIO, Enid CALIX, SPLIT, >3 YEARS, On: 17-Dec-2010 Intent INTRAMUSC (27508)By: Lexy ISAACS, Comments: pt refused Leticia Lexy [...] Intent Lexy DO, Leticia Pugh DOLeticia EKG (23246)By: Lexy ISAACS, On: 18-May-2007 Intent Leticia Reza [...] MCG/ML Injection Solution Ordered: 25-Feb-2015 Pending Emick, [place] Vitamin B-12 1000 MCG/ML Injection Solution Ordered: 04-Apr-2015 Pending Emick, [place] Vitamin B-12 1000 MCG/ML Injection Solution Ordered: [...] Advance Directives Name Dates Details Immunization Registry [place] - Effective on Effective: 17-Nov-201711/17/2017. Expiration date [...] Note for Urinary problems: [facility] had urine negEncounter Diagnosis: BMI 32.0-32.9,adult, [...] for Tdap vaccination (Renamed from Need for dlnqwwfjde-mtjsncq-vlcruqauw (Tdap) vaccine, adult/adolescent) End: 04-Apr-2015 15:25 Comprehensive [...]
--- OUTSIDE RECORDS SUMMARY | 2018-04-04 16:05 | XMS RPT_ITS | Continuity of Care Document ---
:1955 Author Organization [facility] Address [address] [facility] [address] [place] [address] Phone Care Team Providers Name Role Phone [...] neg - pt will go back to obstetrics gynecology physician for hormonal reasonsnot low bs when ck in middle of nite-- depending what traditional obstetrics gynecology physician says maybe consider saliva testingwith recent abd [...] DO, Kathleen Start : 19-Aug-2016 Active MACHINE REPAIRER MAINTENANCE Thyroid 30 MG Oral Tablet 1 (one) Tablet Tablet daily as directed for 0 days Quantity: 30 {Tablet} Refills: 5 Ordered:13-May-2017 Shari Pugh DO, DO, Kathleen Start : 04-Mar-2017 Active Pen [place] 31G X 6 MM Miscellaneous 1 Misc [...] Quantity: 4 {Pre-filled_Pen_Syringe} Refills: 3 Ordered:23-Jul-2016 Long [employer] ARCHITECTAllie L Start : 23-Jul-2016 Active Victoza 18 [...] : 17-Nov-2010 End : 17-Dec-2010 Inactive DRISDOL, 56044CXXE (Oral Capsule) 1 Capsule 2 xweek for [...] Quantity: 90 {Capsule_DR} Refills: 3 Ordered:02-Jun-2010 Yennifer Lyoa LPN Start : 17-Sep-2009 End : 02-Jun-2010 [...] 09-Oct-2011 End : 14-Oct-2011 Inactive Comments:twenty ZOSTAVAX, 42673NEV/0.65ML (Subcutaneous Solution Reconstituted) 1 For Solution x1 [...] 17-Nov-2010 End : 17-Nov-2010 Discontinued Comments:diarrhea ERGOCALCIFEROL, 49806FDQI (Oral Capsule) 1 (one) Capsule q week [...] for Tdap vaccination (Renamed from Need for uepsqmithb-jcvsefy-amuotxziu (Tdap) vaccine, adult/adolescent) (Z23, V06.1) Status: Inactive [...] Contrast Result: Comments: See Note; NOTES: [facility] Cardiovascular Services [address] [place] [address] Stress Test Echo W/Contrast MR#: [id number] Acct: [id number] Name: RADHA RAMOS Rep #: [id number] : 1955 62 From: Marcus Sánchez MD Primary Care: Leticia Pugh DO Status: REG CLI Ordering Dr: Larry Ngo MACHINE REPAIRER MAINTENANCE-C Sex: F C Stress Results Protocol: Stress [...] Dictated: 12/14/17 1343 Date Transcribed: 12/14/17 1521 Enterprise Security Architect: Signed 10-Dec-2017 PT D/C Summary (1) Result: Comments: See Note; NOTES: [facility] Physical Therapy Health[address] [place], [place] [address] Fax REHABILITATION SERVICES DISCHAR SUMMARY MR#: [id number] Acct: [id number] Name: RADHA RAMOS Rep #: [id number] [...] please feel free to call me at [phone]. T elton you for the referral of this patient. Sincerely, Morgan Barnes PT, <Electronically signed by Morgan Barnes PT, Cert. T, OCS> 12/10/17 0758 CC: Leticia Xie JOSSELINE Signed 07-Dec-2017 Cardiology Visit Report Result: Comments: See Note; NOTES: [facility] [address] [place] [address] OFFICE VISIT Date of Service: 12/07/17 MR#: [id number] Acct: [id number] Name: RADHA RAMOS Rep #: [id number] : 1955 Provider: DEMETRICE Ngo Age/Sex: 62/F Location: [facility] Status: Signed HPI HPI Details: RADHA [...] 12/07/17 0958 <Electronically signed by Larry Ngo MACHINE REPAIRER MAINTENANCE-C> Date Larry Ngo MACHINE REPAIRER MAINTENANCE-C Cosigner Signature: Date (if applicable) CC: Leticia Pugh DO 07-Dec-2017 12 Lead EKG performed by [facility] Result: Comments: See Note; NOTES: [place] [address] [place] [address] 12 Lead EKG performed by [facility] 12/07/17910 MR#: [id number] Acct: [id number] Name: RADHA RAMOS Rep #: [id number] : 1955 62 From: Larry Ngo NP-C Attending Dr: Larry Ngo, MACHINE REPAIRER MAINTENANCE Status: DEP AMB Ordering Dr: Larry Ngo MACHINE REPAIRER MAINTENANCERogelioC Date: 12/07/17 Location: [facility] Sex: F C Admitted: ORD ER #: [id number] /12 Lead EKG performed by 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 - Nonspecific T-abnormality. BNORMAL 12/07/17 1257 <Electronically signed by Larry Ngo MACHINE REPAIRER MAINTENANCE-C&amp ;#62; Date Larry SPEARC CC: Leticia Pugh DO Date Dictated: 12/07/17910 Date Transcribed: 12/07/17910 Enterprise Security Architect: ISABEL Signed 07-Dec-2017 12 Lead EKG performed by [facility] Result: Comments: See Note; NOTES: [address] [place] [address] 12 Lead EKG performed by [facility] 12/07/17910 MR#: [id number] Acct: [id number] Name: RADHA RAMOS Rep #: [id number] : 1955 62 From: Larry KNAPP Attending Dr: Larry Ngo NP Status: DEP AMB Ordering Dr: Larry Ngo Date: 12/07/17 Location: [facility] Sex: F C Admitted: ORD ER #: [id number] [facility]/12 Lead EKG performed by [facility] ECG Report Interpretation Sinus Rhythm Poor R wave progressionElectronically signed on 12/08/2017 at 17:44 by Marcus Sánchez Software Version 8610 12/08/17 1746 Date Larry KNAPP CC: Leticia Pugh DO Date Dictated: 12/07/17910 Date Transcribed: 12/07/17910 Enterprise Security Architect: ISABEL Signed 28-Oct-2017 Inital Evaluation (1) - PT Result: Comments: See Note; NOTES: [facility] [place], [place] [address] Fax REHABILITATION SERVICES INITIAL EVALUATION MR#: [id number] Acct: [id number] Name: RADHA RAMOS Rep #: [id number] [...] : No effect Lumbar Standing: Right Side [place] - Symptoms During Testing: Increases Lumbar Standing: Right Side [place] - Symptoms After Testing: No worse Lumbar Standing: Left Side [place] - Mechanical Resp onse: No effect Lumbar Standing: Left Side [place] - Symptoms During Testing: Increases Lumbar Standing: Left Side [place] - Symptoms After Testing: No worse Lumbar [...] to be FAXED BACK to us at [phone] for Medicare purposes. Please let me know [...] Report Result: Comments: See Note; NOTES: [facility] Medical Records Department [address] [place] [address] Downtime Report MR#: [id number] Acct: [id number] Name: RADHA RAMOS Rep #: [id number] : 1955 61 From: Herrera Hennessy PCP: Leticia Pugh DO Status: REG CLI This patient was seen during an EMR downtime August 09, 2017 - August 16, 2017. This patient may have a combination of paper and electronic documentation or all paper documentation. All documentation is viewable within the e-chart portion of [facility] for each patient visit. 21-Jul-2017 L/S Spine Min 4 Views Result: Comments: See Note; NOTES: [facility] Imaging Services [address] [facility] [place] [address] L/S Spine Min 4 Views MR#: [id number] Acct: [id number] Name: RADHA RAMOS Rep #: [id number] : 1955 F 61 From: Durga Peñaloza MD PCP: Leticia Pugh DO Status: REG CLI Study: L/S Spine Min 4 Views Date of Exam: 07/21/17 Exam# [id number] Ordering Dr: Joey Greer MD STUDY: X [...] , CC: Joey Greer; Leticia Pugh DO Enterprise Security Architect: Signed 25-Jun-2017 Cardiology Visit Report Result: Comments: See Note; NOTES: [facility] [address] [place] [address] OFFICE VISIT Date of Service: 06/24/17 MR#: [id number] Acct: [id number] Name: RADHA RAMOS Rep #: [id number] : 1955 Provider: Nimco Vasquez Age/Sex: 61/F Location: [facility] Status: Signed HPI HPI Details: RADHA RAMOS, [...] 138/82 Intake Visit Reasons: 6 M FU Chief Medical Technologist Required: No Accompanied by: none Is patient [...] Views Result: Comments: See Note; NOTES: [facility] Imaging Services [address] [place] [address] S-I Jts 3 or More Views MR#: [id number] Acct: [id number] Name: RADHA RAMOS Rep #: [id number] : 1955 F 61 From: Frederick Pemberton MD PCP: Leticia Pugh DO Status: REG CLI Study: S-I Jts 3 or More Views Date of Exam: 05/21/17 Exam# [id number] Ordering Dr: Leticia Pugh DO STUD Y: [...] Service support , CC: Leticia Pugh DO Enterprise Security Architect: Signed 17-Mar-2017 Abdomen/Pelvis without Cont Result: Comments: See Note; NOTES: [facility] Imaging Services [address] [place] [address] Abdomen/Pelvis without Cont MR#: [id number] Acct: [id number] Name: RADHA RAMOS Rep #: [id number] : 1955 F 61 From: Rahel Salazar MD PCP: Leticia Pugh DO Status: REG CLI Study: Abdomen/Pelvis without Cont Date of Exam: 03/17/17 Exam# [id number] Ordering Dr: Casimiro Saravia MD STUDY: CT [...] at 16:04 EST Tel , Service support [phone], CC: Casimiro Saravia MD; Leticia Pugh DO Enterprise Security Architect: Signed 15-Feb-2017 Toe(s) Min 2 Views Result: Comments: See Note; NOTES: [facility] Imaging Services [address] [place] [address] Toe(s) Min 2 Views MR#: [id number] Acct: [id number] Name: RADHA RAMOS Rep #: [id number] : 1955 F 61 From: Juan Henriquez MD PCP: Leticia Pugh DO Status: REG CLI Study: Toe(s) Min 2 Views Date of Exam: 02/15/17 Exam# [id number] Ordering Dr: Tanvi Hawthorne STUDY: X-RAY LEFT [...] Service support , CC: Tanvi Hawthorne MACHINE REPAIRER MAINTENANCE; Leticia Pugh DO Enterprise Security Architect: Signed 22-Dec-2016 Stress Test Echo w/o Contrast Result: Comments: See Note; NOTES: [facility] Cardiovascular Services [address] [place] [address] Stress Test Echo w/o Contrast MR#: [id number] Acct: [id number] Name: RADHA RAMOS Rep #: [id number] : 1955 61 From: Marcus Sánchez MD [...] Date Dictated: 12/22/16 1307 Date Transcribed: 12/22/161703 Enterprise Security Architect: Signed 19-Nov-2016 12 Lead Electrocardiogram Result: Comments: See Note; NOTES: [facility] Cardiovascular Services [address] [place] [address] 12 Lead EKG 11/14/16156 MR#: [id number] Acct: [id number] Name: RADHA RAMOS Rep #: [id number] : 1955 61 From: Guevara Casanova MD [...] Confirmed by SAMANTHA LI MD, GUEVARA ([id number]), commercial production editor JUNE HENNESSY ([id number]) on 11/16/2016 1:29:52 PM Referred By: GAL Confirmed By:GUEVARA CASANOVA MD 11/16/16 1329 Date Guevara Casanova MD CC: Leticia Pugh DO Date Dictated: 11/14/16156 Date Transcribed: 11/14/16156 Enterprise Security Architect: Signed 14-Nov-2016 Discharge Instruction Result: Comments: See Note; NOTES: [facility] Medical Records Department [address] [place] [address] Discharge Instruction 11/14/16 0345 MR#: [id number] Acct: [id number] Name: JEANMARIE RAMOS Rep #: [id number] : 1955 61 From: Roscoe Diaz MD [...] your Primary Care Provider. Call [facility] ([phone]) or report to the closest Emergency Room. Call 911 if necessary. 11/14/16 0637 <Electronically signed by Roscoe Diaz MD> Date Roscoe Maher Cosigner Signature (If Indicated): Date CC: Leticia Pugh DO 14-Nov-2016 Emergency Department Summary Result: Comments: See Note; NOTES: [facility] Medical Records Department [address] [place] [address] Emergency Department Summary 11/14/16 0343 MR#: [id number] Acct: [id number] Name: RADHA RAMOS Rep #: [id number] : 1955 61 From: Roscoe Diaz MD [...] your Primary Care Provider. Call [facility] ([phone]) or report to the closest Emergency Room. Call 911 if necessary. 11/14/16 0636 <Electronically kristin d by Roscoe Diaz MD> Date Roscoe Diaz MD Cosigner Signature (If Indicated): Date CC: Leticia Pugh DO 14-Nov-2016 Chest 1 View (Portable) Result: Comments: See Note; NOTES: [facility] Imaging Services [address] [place] [address] Chest 1 View (Portable) MR#: [id number] Acct: [id number] Name: RADHA RAMOS Rep #: [id number] : 1955 F 61 From: Nelson Coronado PCP: Leticia Pugh DO Status: REG ER Study: Chest 1 View (Portable) Date of Exam: 11/14/16 Exam# [id number] Ordering Dr: Roscoe Diaz MD STUDY: X- [...] CC: Leticia Pugh DO; Roscoe Diaz MD Enterprise Security Architect: Signed 13-Nov-2016 US Thyroid Biopsy Result: Comments: See Note; NOTES: [facility] Imaging Services [address] [place] [address] US Thyroid Biopsy MR#: [id number] Acct: [id number] Name: HEDY RAMOSBREA House Rep #: [id number] D OB: 1955 F 61 From: Ross Saxena MD PCP: Leticia Pugh DO Status: REG CLI Study: US Thyroid Biopsy Date of Exam: 11/13/16 Exam# [id number] Ordering Dr: James Casey MD STUDY: THYROID [...] Ross Saxena MD at 12:24 EDT Tel [phone], Service support , CC: James Casey MD; Leticia Pugh DO Enterprise Security Architect: Signed 24-Sep-2016 Thyroid Result: Comments: See Note; NOTES: [facility] Imaging Services [address] [place] [address] Verdana 4d Thyroid MR#: [id number] Acct: [id number] Name: RADHA RAMOS Rep #: [id number] : 1955 F 60 From: Kalpana Sharp MD PCP: Leticia Pugh DO Status: REG CLI Study: Thyroid Date of Exam: 09/24/16 Exam# [id number] Ordering Dr: Lety Ball MACHINE REPAIRER MAINTENANCE-C STUDY: THYROID ULTRASOUND REASON FOR EXAM: Female, [...] Service support , CC: Lety Ball MACHINE REPAIRER MAINTENANCE; Leticia Pugh DO Enterprise Security Architect: Signed 11-Aug-2016 SCREENING MAMM (CAD), BILAT Result: Comments: See Note; NOTES: [facility] Imaging Services [address] [place] [address] Verdana 4d SCREENING MAMM (CAD), BILAT MR#: [id number] Acct: [id number] Name: RADHA RAMOS Rep #: [id number] : 1955 F 60 From: Ross Saxena MD PCP: Leticia Pugh DO Status: [facility] Study: SCREENING MAMM (CAD), BILAT Date of Exam: 08/11/16 Exam# [id number] Ordering Dr: Zhane Martinez MD MAMMOGRAPHY - [...] delay biopsy of a clinically suspicious abnormality. [id number] Electronically Signed: Ross Saxena MD at 13:32 EDT Tel [phone], Service support , CC: Zhane Angeles MD; Leticia Pugh DO Enterprise Security Architect: Signed 17-Jul-2016 Upper GI w/BA Swallow Result: Comments: See Note; NOTES: [facility] Imaging Services [address] [place], [place] [address] [address] Verdana 4d Upper GI w/BA Swallow MR#: [id number] Acct: [id number] Name: RADHA RAMOS Rep #: [id number] : 1955 F 60 From: Coreen Mata MD PCP: Leticia Pugh DO Status: REG CLI Study: Upper GI w/BA Swallow Date of Exam: 07/17/16 Exam# [id number] Ordering Dr: James Garrido MD CLINICAL HISTORY: [...] , CC: Leticia Pugh DO; James Garrido Enterprise Security Architect: Signed 27-Feb-2016 Chest PA and Lateral Result: Comments: See Note; NOTES: [facility] Imaging Services [address] [place] [address] Verdana 4d Chest PA and Lateral MR#: [id number] Acct: [id number] Name: RADHA RAMOS Rep #: [id number] : 1955 F 60 From: Segnu Loomis MD PCP: Leticia Pugh DO Status: REG CLI Study: Chest PA and Lateral Date of Exam: 02/27/16 Exam# [id number] Ordering Dr: Leticia Pugh DO STUD Y: [...] at 15:10 EST Tel , Service support [phone], CC: Leticia Pugh DO Enterprise Security Architect: Signed 24-Feb-2016 W[facility]al C[facility] Progress Note Result: Comments: See Note; NOTES: [facility] [address] [place] [address] [facility] Progress Note 02/24/16 1305 MR#: [id number] Acct: [id number] Name: Keyur RAMOS Rep #: [id number] : 1955 60 From: Ruslan Sesay MD [...] mellitus macular edema: D Lisa betes mellitus skilled nursing insulin use: with oysterman use Laterality: L Chronic kidney disease stage: C Qualified Code(s): E11.9 - Type 2 diabetes mellitus without complications; Z79.4 - alf (curre nt) use of insulin Code(s): E11.9 [...] Date Recorded By Document 02/24/16 12:35 CHRIS [id number] 02/24/16 12:38 CHRIS 02/24/16 12:35 Wound Center [...] Recorded Date Recorded By Document 02/24/16 12:38 [id number] 02/24/16 12:39 CHRIS 02/24/16 12:38 Wound Center [...] after Cleansing No -Bioengineered Tissue No -Cetacaine [place] No -Bleedin g Controlled with NA -Treatment [...] ter Cleansing No -Bioengineered Tissue No -Cetacaine [place] No -Bleeding Controlled with NA -Treatment Response [...] HOSPITAL [facility] [address] [place] [address] [facility] Progress Note 02/10/16 1325 MR#: [id number] Acct: [id number] Name: Keyur RAMOS Rep #: [id number] : 1955 60 From: Ruslan Sesay MD [...] mellitus macular edema: D Diab etes mellitus skilled nursing insulin use: with skilled nursing use Laterality: L Chronic kidney disease stage: C Qualified Code(s): E11.9 - Type 2 diabetes mellitus without complications; Z79.4 - alf (curren t) use of insulin Code(s): E11.9 [...] Date Recorded By Document 02/10/16 13:01 DL [id number] 02/10/16 13:07 DL 02/10/16 13:01 Wound Center Nurse 1 [Ulcer Assessment] 1-abdomen -Current Size (cm) - Length 0 -Current Size (cm) - Width 0 -Current Size (cm) - Depth 0 -Total Square Cm 0 -Photo Take n Yes -Exudate Amt None Present (0 %) -Wound Margin Flat AND Intact -Granulation Amt Large (67-100%) -Granulation Quality [place] -Necrosis Amt None Present (0 %) -Structure [...] Date Recorded By Document 02/10/16 13:15 MW [id number] 02/10/16 13:17 MW 02/10/16 13:15 Wound Center Nurse 2 [P rocedure/Treatment] -Time 13:16 -Correct Patient Yes -Correct Side, Site, Position Yes -Correct Procedure Yes -Procedure Performed No -Wound/Ulcer Outcome Not Healed -Ulcer Cleansing Not Cleansed -Foul Odor after Cleansing No -Bioengineered Tissue No -Cetacaine [place] No -Topical Lidocaine (%) 4 -Lidocaine (ml) [...] Date Recorded By Document 02/10/16 13:15 MW [id number] 02/10/16 13:17 MW 02/10/16 13:15 Wound Center Nurse 2 1-abdomen -Time 13:16 - Correct Patient Yes -Correct Side, Site, Posi tion Yes -Correct Procedure Yes -Procedure Performed No -Wound/Ulcer Outcome Not Healed -Ulcer Cleansing Not Cleansed -Foul Odor after Cleansing No - Bioengineered Tissue No -Cetacaine [place] No -Topical Lidocaine (%) 4 -Lidocaine (ml) [...] Note Result: Comments: See Note; NOTES: [facility] W[facility]aling [facility] [place] [address] W[facility]al C[facility] Progress Note 02/03/16 1336 MR#: [id number] Acct: [id number] Name: Keyur RAMOS Rep #: [id number] : 1955 60 From: Ruslan Sesay MD [...] Diabetes mellitus macular edema: D Diabetes mellitus skilled nursing insulin use: with skilled nursing use Latera lity: L Chronic kidney disease [...] Recorded Date Recorded By Document 13:02 DL [id number] 02/03/16 13:09 DL 02/03/16 13:02 Wound Center Nurse 1 [Ulcer Assessment] 1-abdomen -Current Size (cm) - Length 0.5 -Current Size (cm) - Width 2.4 -Current Size (cm) - Depth 0.3 -Tota l Square Cm 1.20 -Photo Taken No -Exudate Amt Small (1-33%) -Exudate Type Serosanguineous -Wound Margin Distinct, Outline Attached -Granulation Amt Large (67-100%) - Granulation Quality [place] -Necrosis Am t Small (1-33%) -Necrotic Tissue [...] Date Recorded By Document 02/03/16 13:28 CHRIS [id number] 02/03/16 13:32 CHRIS 02/03/16 13:28 Wound Center [...] Cleansing No -Bioengi neered Tissue No -Cetacaine [place] No -Topical Lidocaine (%) 4 -Lidocaine (ml) [...] Date Recorded By Document 02/03/16 13:28 CHRIS [id number] 02/03/16 13:32 CHRIS 02/03/16 13:28 Wound Center [...] after Cleansing No -Bioengineered Tissue No -Cetacaine [place] No -Topical Lidocaine (%) 4 -Lidocaine (ml) [...] Note Result: Comments: See Note; NOTES: [facility] [address] [place] [address] [facility] Progress Note 01/27/16 1333 MR#: [id number] Acct: [id number] Name: RICHARDKeyur House Rep #: [id number] : 1955 60 From: Ruslan Sesay MD [...] Diabetes mellitus macular edema: D Diabetes mellitus skilled nursing insulin use: with skilled nursing use Laterali ty: L Chronic kidney disease [...] Recorded Date Recorded By Document 01/27/16 12:44 [id number] 01/27/16 12:54 01/27/16 12:44 Wound Center Nurse [...] Date Recorded By Document 01/27/16 13:23 MW [id number] 01/27/16 13:31 MW 01/27/16 13:23 Wound Center Nurse 2 [Procedure/Treatment] 1-abdomen -Time 13 :24 -Correct Patient Yes -Correct Side, Site, Position Yes -Correct Procedure Yes -Procedure Performed No -Wound/Ulcer Outcome Not Healed -Ulcer Cleansing Rinsed/ Irrigated with Saline -Foul Odor after Cleansing No -Bioengineered Tissue No -Cetacaine [place] No -Bleeding Controlled with NA [See Physician [...] Date Recorded By Document 01/27/16 13:23 MW [id number] 01/27/16 1 3:31 MW 01/27/16 13:23 Wound Center Nurse 2 1-abdomen -Time 13:24 -Correct Patient Yes -Correct Side, Site, Position Yes -Correct Procedure Yes -Procedure Performed No -Wound/Ulcer Outcome Not Healed - Ulcer Cleansing Rinsed/ Irrigated with Saline -Foul Odor after Cleansing No -Bioengineered Tissue No -Cetacaine Harrison No -Bleeding Controlled with NA No debridement [...] Note Result: Comments: See Note; NOTES: [facility] [address] [place] [address] [facility] Progress Note 01/20/16 1521 MR#: [id number] Acct: [id number] Name: RADHA RAMOS Rep #: [id number] : 1955 60 From: Ruslan Sesay MD [...] mellitus complication status: without complication Diabetes mellit skilled nursing insulin use: with oysterman use Qualifier Code : (E11.9) Type 2 [...] Record ed By Document 01/20/16 14:33 DL [id number] 01/20/16 14:36 DL 01/20/16 14:33 Wound Center [...] Recorded Date Recorded By Document 01/20/16 15:06 [id number] 01/20/16 15:07 01/20/16 15:06 Wound Center Nurse 2 [Procedure/Treatment] -Time 15:06 -Correct Patient Yes -Correct Side, Site, Position Yes -Correct Procedure Yes -Procedure Performed No -Wound/Ulcer Outcome Not Healed -Ulcer Cleansing Rinsed/ Irrigated with Saline -Foul Odor after Cleansing No -Bioengineered Tissue No - Cetacaine Harrison No [See Physician Procedure note for Specifics] [...] Recorded Date Recorded By Document 01/20/16 15:06 [id number] 01/20/16 15:07 01/20/16 15:06 Wound Center Nurse 2 1-abdomen -Time 15:06 - Correct Patient Yes -Correct Side, Site, Po sition Yes -Correct Procedure Yes -Procedure Performed No -Wound/Ulcer Outcome Not Healed -Ulcer Cleansing Rinsed/ Irrigated with Saline -Foul Odor after Cleansing No -Bioengineered Tissue No -Cetacaine Harrison No No debridement was completed today Assessment/Plan [...] Note Result: Comments: See Note; NOTES: [facility] [address] [place] [address] [facility] Progress Note 01/06/16 1307 MR#: [id number] Acct: [id number] Name: RADHA RAMOS Rep #: [id number] : 1955 60 From: Ruslan Sesay MD PCP: Leticia Pugh DO Status: REG RCR Y Location: WC (1) Abscess of abdominal wall Status: Acute Current Visit: Yes Code: L02.2 11 (2) Diabetes mellitus Status: Chronic Current Visit: Yes Qualifiers: Diabetes mellitus type: type 2 Diabetes mellitus complication status: with skin complications Diabetes mellitus complication deta il: with other skin complication Diabetes mellitus skilled nursing insulin use: with skilled nursing use Qualifier Code: (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 Code: E11.9 (3) Hyperlipide grzegorz Status: Chronic Current Visit: No Qualifiers: Hyperlipidemia type: mixed hyperlipidemia Qualifier Code: (E78.2) Mixed hyperlipidemia Code: E78.5 (4) Wound, open, abdominal wall, anterior Status: Ac [place] Current Visit: Yes Qualifiers: Encounter type: subsequent [...] Date Recorded By Document 01/06/16 12:42 TM [id number] 01/06/16 12:51 TM 01/06/16 12:42 Wound Center [...] Date Recorded By Document 01/06/16 12:54 DV [id number] 01/06/16 13:00 DV 01/06/16 12:54 Wound Center Nurse 2 [Procedure/Treatment] -Time 12:59 -Correct Patient Yes -Correct Side, Site, Position Yes -Correct Procedure Yes -Procedure Performed No -Wound/Ulcer Outcome Not Healed -Ulcer Cleansing Rinsed/ Irrigated with Saline -Foul Odor after Cleansing No -Bioengineered Tissue No -Cetacaine Harrison No -Bleeding Controlled with NA -Treatment Response [...] Date Recorded By Document 01/06/16 12:54 DV [id number] 01/06/16 13:00 DV 01/06/16 12:54 Wound Center Nurse 2 1-abdomen -Time 12:59 -Correct Patient Yes -Correct Side, Site, Position Yes -Tamar ect Procedure Yes -Procedure Performed No -Wound/Ulcer Outcome Not Healed -Ulcer Cleansing Rinsed/ Irrigated with Saline -Foul Odor after Cleansing No - Bioengineered Tissue No -Cetacaine Harrison No -Bleed ing Controlled with NA -Treatment Response Procedure Tolerated Well No debridement was completed today Assessment/Plan Active Problems Abscess of abdominal wall (Acute) Wound, open, abdominal wall, anterior (Acute) Diabetes mellitus (Chronic) Assessment: This is a 60-year-old diabetic female who is in her normal state of health until approximately 3 weeks prior to presentation, at [facility] time she developed an abscess [...] Note Result: Comments: See Note; NOTES: [facility] [address] [place] [address] Wound Heal Ctr Progress Note 12/30/15 1625 MR#: [id number] Acct: [id number] Name: RADHA RAMOS Rep #: [id number] : 1955 60 From: Ruslan Sesay MD PCP: Leticia Pugh DO Status: REG RCR Y Location: WC (1) Abscess of abdominal wall Status: Acute Current Visit: Yes Code: L02.2 11 (2) Diabetes mellitus Status: Chronic Current Visit: Yes Qualifiers: Diabetes mellitus type: type 2 Diabetes mellitus complication status: with skin complications Diabetes mellitus complication deta il: with other skin complication Diabetes mellitus oysterman insulin use: with skilled nursing use Qualifier Code: (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 Code: E11.9 (3) Hyperlipide grzegorz Status: Chronic Current Visit: No Qualifiers: Hyperlipidemia type: mixed hyperlipidemia Qualifier Code: (E78.2) Mixed hyperlipidemia Code: E78.5 (4) Wound, open, abdominal wall, anterior Status: Ac [place] Current Visit: Yes Qualifiers: Encounter type: subsequent [...] [facility]. Progress [...] Date Recorded By Document 6 14:19 TM [id number] 12/30/15 14:37 TM 12/30/15 14:19 Wound Center [...] Thickened -Granulation Amt Small (1-33%) -Granulation Quality [place] Red -Slough/Fibrin Yes -Necro sis Amt Small [...] Recorded Date Recorded By Document 12/30/15 16:21 [id number] 12/30/15 16:22 12/30/15 16:21 Wound Center Nurse 2 [P rocedure/Treatment] 1-abdomen -Time 16:21 -Correct Patient Yes -Correct Side, Site, Position Yes -Correct Procedure Yes -Procedure Performed No -Wound/Ulcer Outcome Not Healed -Ulcer Cleansing Rinsed/ I rrigated with Saline -Foul Odor after Cleansing No -Bioengineered Tissue No -Cetacaine Harrison No -Bleeding Controlled with NA -Treatment Response [...] Recorded Date Recorded By Document 12/30/15 16:21 [id number] 12/30/15 16:22 12/30/15 16:21 Wound Center Nurse 2 1-abdomen -Time 16:21 -Correct Patient Yes -Correct Side, Site, Position Yes -Correct Procedure Yes -Procedure Performed No -Wound/Ulcer Outcome Not Healed -Ulcer Cleansing Rinsed/ Irrigated with Saline -Foul Odor after Cleansing No -Bioengi neered Tissue No -Cetacaine Harrison No -Bleeding Controlled with NA -Treatment Response [...] Physical Result: Comments: See Note; NOTES: [facility] [address] [place] [address] Wound Ctr History AND Physical 12/23/15 1708 MR#: [id number] Acct: [id number] Name: RADHA TERRY Rep #: [id number] : 1955 60 From: Ruslan Sesay MD PCP: Leticia Pugh DO Status: REG RCR Y Location: WC (1) Abscess of abdominal wall Status: Acute Current Visit: Yes Code: L02 .211 (2) Diabetes mellitus Status: Chronic Current Visit: Yes Qualifiers: Diabetes mellitus type: type 2 Diabetes mellitus complication status: with skin complications Diabetes mellitus complication de tail: with other skin complication Diabetes mellitus oysterman insulin use: with skilled nursing use Qualifier Code: (E11.628) Type 2 diabetes [...] tumor. 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 Lives: Spouse/ Significant Other Smoking Status: [...] Recorded Date Recorded By Document 12/23/15 15:16 [id number] 12/23/15 15:38 12/23/15 15:16 Wound Center Nurse [...] Recorded Date Recorded By Document 12/23/15 16:42 [id number] 12/23/15 16:44 12/23/15 16: 42 Wound Center Nurse 2 [Procedure/Treatment] 1-abdomen -Time 16:42 -Correct Patient Yes -Correct Side, Site, Position Yes -Correct Procedure Yes -Wound/Ulcer Outcome Not Healed -Ulcer Cleansing Rinsed / Irrigated with Saline -Foul Odor after Cleansing No -Bioengineered Tissue No -Cetacaine Harrison No -Bleeding Controlled with NA -Treatment Response [...] Recorded Date Recorded By Document 12/23/15 16:42 [id number] 12/23/15 16:44 12/23/15 16:42 Wound Center Nurse 2 1-abdomen -Time 16:42 -Correct Patie nt Yes -Correct Side, Site, Position Yes -Correct Procedure Yes -Wound/Ulcer Outcome Not Healed -Ulcer Cleansing Rinsed/ Irrigated with Saline -Foul Odor after Cleansing No -Bioengineered Tissue No -Cet acaine Harrison No -Bleeding Controlled with NA -Treatment Response Procedure Tolerated Well No debridement was completed today Assessment/Plan Active Problems Abscess of abdominal wall (Acute) Wound, open, abdominal wall, anterior (Acute) Diabetes mellitus (Chronic) Hyperlipidemia (Chronic) Mitral valve prolapse (Chronic) Assessment: This is a 60-year-old diabetic female who is in her [facility] state of health until approximately 3 [...] Contrast Result: Comments: See Note; NOTES: [facility] Imaging Services [address] [place] [address] Verdana 4d Abdomen/Pelvis WITH Contrast MR#: [id number] Acct: [id number] Name: MILO RAMOS Rep #: [id number] : 1955 F 60 From: Jack Hernandez MD PCP: Leticia Pugh DO Status: REG CLI Study: Abdomen/Pelvis WITH Contrast Date of Exam: 12/12/15 Exam# [id number] Ordering Dr: Leticia Pugh DO STUDY: CT [...] Service support , CC: Leticia Pugh DO Enterprise Security Architect: Signed 25-Oct-2015 Chest WITH Contrast Result: Comments: See Note; NOTES: [facility] Imaging Services [address] [place] [address] Verdana 4d Chest WITH Contrast MR#: [id number] Acct: [id number] Name: RADHA RAMOS Rep #: [id number] : 1955 F 60 From: Emerson Centeno MD PCP: Leticia Pugh DO Status: REG CLI Study: Chest WITH Contrast Date of Exam: 10/25/15 Exam# [id number] Ordering Dr: Marcus Sánchez MD MALISSA DY: [...] MD at 21:00 EDT , Service support [phone], CC: Leticia Pugh DO; Marcus Sánchez MD Enterprise Security Architect: Signed 05-Sep-2015 ELECTROCARDIOGRAM, COMPLETE (ECG) ([id number]) Comments: nsr no acute chg Result: [MEASUREMENTS ANALYSIS] Date of Test: 09/05/2015 14:41:33; Heart Rate: 82; OK Interval: 152; QRS: 100; QT Interval: 366; Corrected QT Interval (QTc): 404; P Wave Welch: 62; QRS Wave Welch: 42; T Wave Welch : 23; Blood Pressure: 122/82 [ECG DIAGNOSTIC STATEMENTS] Date of Test: 09/05/2015 14:41:33; Summary: Sinus Rhythm WITHIN NORMAL LIMITS 08-Aug-2015 Bilat Scrn Digital AND CAD Result: Comments: See Note; NOTES: [facility] Imaging Services [address] [place] [address] Verdana 4d Bilat Scrn Digital AND CAD MR#: [id number] Acct: [id number] Name: RADHA RAMOS Rep #: [id number] : 1955 F 59 From: Ross Saxena MD PCP: Leticia Pugh DO Status: REG CLI Study: Bilat Scrn Digital AND CAD Date of Exam: 08/08/15 Exam# [id number] [facility] Dr: Zhane Angeles MD MAMMOGRAPHY - BILATERAL [...] will be sent to the patient by [facility] within 30 days. Approximately 10% of breast cancers are not detected by mammography. A normal mammogram should not delay biopsy of a clinically suspicious abnormality. [id number] Electron ically Signed: Ross Saxena MD at 10:53 EDT Tel [phone], Service support [phone], CC: Zhane Angeles MD; Leticia Pugh DO Enterprise Security Architect: Signed 15-Mar-2015 ELECTROCARDIOGRAM, COMPLETE (ECG) ([id number]) Result: [MEASUREMENTS ANALYSIS] Date of Test: 03/15/2015 11:59:12; Heart Rate: 78; OK Interval: 126; QRS: 100; QT Interval: 380; Corrected QT Interval (QTc): 411; P Wave Welch: 39; QRS Wave Welch: 44; T Wave Welch : 27; Blood Pressure: 126/82 [ECG DIAGNOSTIC STATEMENTS] Date of Test: 03/15/2015 11:59:12; Summary: Sinus Rhythm WITHIN NORMAL LIMITS 13-Feb-2015 PT D/C of Non Returning Pt. Result: Comments: See Note; NOTES: [facility] Therapy [facility] [place], [place] [id number] Fax REHABILITATION RVICES DISCHARGE SUMMARY MR#: [id number] Acct: [id number] Name: RADHA RAMOS Rep #: [id number] : 1955 59 From: Morgan Barnes Referring [...] - PT Result: Comments: See Note; NOTES: [facility] [place] [id number] Fax REHABILITATION SERVICES INITIAL EVALUATION MR#: [id number] Acct: [id number] Name: RADHA RAMOS Rep #: [id number] : 1955 59 From: Morgan Barnes Referring Dr.: Joey Kebede DPM Status: REG R [facility] Date: DATE OF SERVICE: 11/29/2014 PHYSICIAN: Joey Kebede DPM. SUBJECTIVE: This patient by the name of Radha Richard who was born on 1955 was referred [facility] with diagnosis of medical complexity issue of [...] cuff repair. VOCATION: The patient works at [employer]. OBJECTIVE: OBSERVATION OF POSTURE: The patient has [...] exercises. Morgan Barnes, PT T: NTS JOB: [id number] <Electronically signed by Morgan Barnes > 12/05/14 1319 CC: Signed For Medicare only, by signing this I certify the plan of care. Physicians Signature Date 28-Sep-2014 Discharge Instruction Result: Comments: See Note; NOTES: [facility] Medical Records Department [address] [place] [address] Instructions for Home/Discharge Instructions 09/28/14 1826 MR#: [id number] ct: [id number] Name: RADHA RAMOS Rep #: [id number] : 1955 58 From: Joey Kebede DPKeyur PCP: Leticia Pugh DO Status: [place] [facility] [place] Diet: Light diet - advance as [...] Views Result: Comments: See Note; NOTES: [facility] Imaging Services [address] [place] [address] Radiology Report MR#: [id number] Acct: [id number] Name: RADHA RAMOS Rep #: [id number] : 1955 F 58 From: Rohit Zamarripa MD PCP: Leticia Pugh DO Status: [facility] Study: Foot min 3 Views Date of Exam: 09/28/14 Exam# [id number] Ordering Dr: Joey Kebede DPM STUDY: X-RAY [...] FACR at 20:28 EDT , Service support [phone], RAD/Foot min 3 Views IMPRESSION: Status post osteotomy of the posterior pr ocess of the calcaneus and stabilization with a cannulated screw. Alignment is anatomical and no immediate post surgical complications are seen. Cast is in place. Electronically Signed: Rohit laird MD, FACR at 20:28 EDT , Service support [phone], CC: Joey Kebede DPM; Leticia Pugh DO Enterprise Security Architect: Signed 28-Sep-2014 Calcaneus min 2 Views Result: Comments: See Note; NOTES: [facility] Imaging Services [address] [place] [address] Radiology Report MR#: [id number] Acct: [id number] Name: RADHA RAMOS Rep #: [id number] : 1955 F 58 From: Rohit Zamarripa MD PCP: Leticia Pugh DO Status: [facility] Study: Calcaneus min 2 Views Date of Exam: 09/28/14 Exam# [id number] Ordering Dr: Joey Kebede DPM S JEFFREY: [...] FACR at 20:32 EDT , Service support [phone], RAD/Calcaneus min 2 Views IMPRESSION: Status Post osteotomy of the posterior process of the calcaneus and stabilization with a cannulated screw. Alignment is anatomical and no immediate post surgical complications are seen. Electronically Signed: Rohit Zamarripa MD, FACR at 20:32 EDT , Service support [phone], CC: Joey Kebede DPM; Leticia Pugh DO Enterprise Security Architect: Signed 27-Aug-2014 Lower Ext Joint Only (Routine) Result: Comments: See Note; NOTES: [facility] Imaging Services [address] [place] [address] MRI Report MR#: [id number] Acct: [id number] Name: RADHA RAMOS Rep #: [id number] : 1955 F 58 From: Rohit Zamarripa MD PCP: Leticia Pugh DO Status: REG CLI Study: Lower Ext Joint Only (Routine) Date of Exam: 08/27/14 Exam# [id number] Ordering Dr: Joey Kebede DPM STUDY: MRI [...] FACR at 17:00 EDT , Service support [phone], Fax CC: Joey Kebede MD; Leticia Pugh DO Enterprise Security Architect: Signed 27-Aug-2014 Lower Ext Joint Only (Routine) Result: Comments: See Note; NOTES: [facility] Imaging Services [address] [place] [address] MRI Report MR#: [id number] Acct: [id number] Name: RADHA RAMOS Rep #: [id number] : 1955 F 58 From: Rohit Zamarripa MD PCP: Leticia Pugh DO Status: REG CLI Study: Lower Ext Joint Only (Routine) Date of Exam: 08/27/14 Exam# [id number] Ordering Dr: Joey Kebede DPM ADDENDUM by [...] FACR at 14:08 EDT , Service support [phone], 09/17/14 1408 Date cc: Joey Kebede DPM; [...] at 17:00 EDT , Service suppor t [phone], CC: Joey Kebede DPM; Leticia Pugh DO Enterprise Security Architect: Signed 03-Aug-2014 Bilat Scrn Digital AND CAD Result: Comments: See Note; NOTES: [facility] Imaging Services [address] [place] [address] Breast Imaging Report MR#: [id number] Acct: [id number] Name: RADHA RAMOS Rep #: [id number] : 1955 F 58 From: Ross Saxena MD PCP: Leticia Pugh DO Status: REG CLI Study: Faviola Vincent Digital AND CAD Date of Exam: 08/03/14 Exam# [id number] Ordering Dr: Lelo Angeles MD MAMMOGRAPHY - [...] be sent to the patient by the [facility] within 30 days. Approximately 10% of breast cancers are not detected by mammography. A normal mammogram should not delay biopsy of a clinically suspicious abnormality. Electronically Kristin d: Ross Saxena MD at 13:16 EDT Tel [phone], Service support [phone], CC: Zhane Angeles MD; Leticia Pugh DO Enterprise Security Architect: Signed 03-Aug-2014 Bilat Scrn Digital AND CAD Result: Comments: See Note; NOTES: [facility] Imaging Services [address] [place] [address] Breast Imaging Report MR#: [id number] Acct: [id number] Name: RADHA RAMOS Rep #: [id number] : 1955 F 58 From: Ross Saxena MD PCP: Leticia Pugh DO Status: REG CLI Study: Faviola Vincent Digital AND CAD Date of Exam: 08/03/14 Exam# [id number] Ordering Dr: Lelo Angeles MD MAMMOGRAPHY - [...] be sent to the patient by the [facility] within 30 days. Approximately 10% of breast cancers are not detected by mammography. A normal mammogram should not delay biopsy of a clinically suspicious abnormality. Electronically Kristin d: Ross Saxena MD at 13:16 EDT Tel [phone], Service support [phone], CC: Zhane Angeles MD; Leticia Pugh DO Enterprise Security Architect: Signed 03-Aug-2014 Bilat Scrpatricia Digital AND CAD Result: Comments: See Note; NOTES: [facility] Imaging Services [address] [place] [address] Breast Imaging Report MR#: [id number] Acct: [id number] Name: RADHA RAMOS Rep #: [id number] : 1955 F 58 From: Ross Saxena MD PCP: Leticia Pugh DO Status: REG CLI Study: Faviola Vincent Digital AND CAD Date of Exam: 08/03/14 Exam# [id number] Ordering Dr: Lelo Angeles MD MAMMOGRAPHY - [...] [facility]. Approximately 10% of breast cancers are not detected by mammography. A normal mammogram should not delay biopsy of a clinically suspicious abnormality. Electronically Kristin d: Ross Saxena MD at 13:16 EDT Tel [phone], Service support [phone], CC: Zhane Angeles MD; Leticia Pugh DO Enterprise Security Architect: Signed 05-Jul-2014 PT Discharge Summary Result: Comments: See Note; NOTES: [facility] [address] [place], [place] [address] Fax REHABILITATION SERVICES DISCHARGE SUMMARY MR#: [id number] Acct: [id number] Name: RADHA RAMOS Rep #: [id number] : 1955 58 From: Morgan Barnes Referring Dr.: Leticia Pugh DO Status: PRE RCR Eval Date: Date: DATE OF SERVICE: REFERRING PHYSICIAN: Leticia Pugh D.O. This patient by the name of Radha Rmaos was seen in our physical therapy clinic [...] Sincerely, Morgan Barnes, PT T: NTS JOB: [id number] <Electronically signed by Morgan Barnes > 07/05/14 1429 CC: Signed 18-May-2014 Brain W/WO Contrast Result: Comments: See Note; NOTES: [facility] Imaging Services [address] [place] [address] MRI Report MR#: [id number] Acct: [id number] Name: RADHA RAMOS Rep #: [id number] D OB: 1955 F 58 From: Yolanda Vitale MD PCP: Leticia Pugh DO Status: REG CLI Study: Brain W/WO Contrast Date of Exam: 05/18/14 Exam# [id number] Ordering Dr: Leticia Pugh DO STUDY: MRI [...] MD at 17:10 EDT , Service support [phone], CC: Leticia Pugh DO Enterprise Security Architect: Signed 18-May-2014 Spine Cervical (Routine) Result: Comments: See Note; NOTES: [facility] Imaging Services [address] [facility] [place] [address] MRI Report MR#: [id number] Acct: [id number] Name: RADHA RAMOS Rep #: [id number] D OB: 1955 F 58 From: Yolanda Vitale MD PCP: Leticia Pugh DO Status: REG CLI Study: Spine Cervical (Routine) Date of Exam: 05/18/14 Exam# [id number] Ordering Dr: Leticia Pugh DO STUDY: MRI [...] at 22 :30 EDT , Service support [phone], CC: Leticia Pugh DO Enterprise Security Architect: Signed 20-Apr-2014 Inital Evaluation - PT Result: Comments: See Note; NOTES: [facility] Physical Therapy [address] [place] [address] Fax REHABILITATION SERVICES INITIAL EVALUATION MR#: [id number] Acct: [id number] Name: RAHDA RAMOS Rep #: [id number] : 1955 58 From: Morgan Barnes Referring : Leticia Pugh DO Status: REG R Insurance: A [facility] Date: DATE OF SERVICE: 04/17/2014 REFERRING [...] therapy. Most recently, she had been trying respiratory care assistant, which consist ed of manipulations with some [...] pain. SOCIAL HISTORY: . VOCATION: Works at [employer] Goals to get rid of pain. OBJECTIVE: [...] for deltoid, biceps, triceps, wrist flexor, extensors. 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 Negative ANR. MOVEMENT LOSS: Protrusion minimal loss with pain end range; flexion min-to- moderate loss; retraction, extension minimal loss; side bending to the right minimal loss; side bend to left is xxi-qv-gilopvvb loss; rotation to the right minimal loss; rotation to the left is nck-mz-mgirhhwk loss. Repeated motion, right neck pain. Protrusion, [...] education. Morgan Barnes, PT T: NTS JOB: [id number] <Electronically signed by Morgan Barnes > 04/20/14 0856 CC: Signed For Medicare only, by signing this I certify the plan of care. Physicians Signature Date 11-Apr-2014 Cerv Spine 4 or 5 Views Result: Comments: See Note; NOTES: [facility] Imaging Services [address] [place] [address] Radiology Report MR#: [id number] Acct: [id number] Name: RADHA RAMOS Rep #: [id number] : 1955 F 58 From: Sofia Gamble MD PCP: Leticia Pugh DO Status: REG CLI Study: Cerv Spine 4 or 5 Views Date of Exam: 04/11/14 Exam# [id number] Ordering Dr: Leticia Pugh: X-RAY - CERVICAL [...] MD at 16:35 EST , Service support [phone], RAD/Cerv Spine 4 or 5 Vie ws IMPRESSION: Normal x-ray examination of the visualized cervical spine. Electronically Signed: Sofia Gamble MD at 16:35 EST , Service support [phone], CC: Leticia Pugh DO Enterprise Security Architect: Signed 30-Mar-2014 Esophagus Only Result: Comments: See Note; NOTES: [facility] Imaging Services [address] [place] [address] Radiology Report MR#: [id number] Acct: [id number] Name: RADHA RAMOS Rep #: [id number] : 1955 F 58 From: Ross Saxena MD PCP: Leticia Pugh DO Status: REG CLI Study: Esophagus Only Date of Exam: 03/30/14 Exam# [id number] Ordering Dr: James Garrido MD STUDY: X-RAY [...] Ross Saxena MD at 9:25 EST Tel [phone], Service support [phone], Fax CC: Leticia Pugh DO; Betinamichell Hema Enterprise Security Architect: Signed 08-Feb-2014 Stress Test Echo w/o Contrast Result: Comments: See Note; NOTES: [facility] Cardiovascular Services [address] [place] [address] STRESS TEST REPORT 02/02/14 1143 MR#: [id number] Acct: [id number] Name: RADHA RAMOS Rep #: [id number] : 1955 58 From: Guevara Casanova MD [...] d: 02/02/14 1143 Date Transcribed: 02/05/14 09 Enterprise Security Architect: Signed 08-Feb-2014 Echocardiogram Complete Result: Comments: See Note; NOTES: [facility] Cardiovascular Services [address] [place] [address] STRESS TEST REPORT 02/02/14 1143 MR#: [id number] Acct: [id number] Name: RADHA RAMOS Rep #: [id number] : 1955 58 From: Guevara Casanova MD [...] Date Dictated: 02/02/14 1143 Date Transcribed: 02/05/1436 Enterprise Security Architect: Signed 06-Feb-2014 Upper GI Series Only Result: Comments: See Note; NOTES: [facility] Imaging Services [address] [place] [address] Radiology Report MR#: [id number] Acct: [id number] Name: RADHA RAMOS Rep #: [id number] : 1955 F 58 From: Segun Loomis MD PCP: Leticia Pugh DO Status: REG CLI Study: Upper GI Series Only Date of Exam: 02/06/14 Exam# [id number] Ordering Dr: Tanvi Hawthorne CLINICAL HISTOR Y: [...] MD at 10:55 EST , Service support [phone], RAD/Upper GI Series Only IMPRESSION: Patient shows [...] 2013 at 10:55 EST , Service support [phone], CC: Tanvi Hawthorne; Leticia Pugh DO Enterprise Security Architect: Signed 05-Feb-2014 Stress Test Echo w/o Contrast Result: Comments: See Note; NOTES: [facility] Cardiovascular Services [address] [facility] [address] STRESS TEST REPORT 02/02/14 1143 MR#: [id number] Acct: [id number] Name: RADHA RAMOS Rep #: [id number] : 1955 58 From: Guevara Casanova MD [...] Dictated: 02/02/14 1143 Date Transcribed: 02/05/14 0836 Enterprise Security Architect: Signed 02-Feb-2014 Chest PA and Lateral Result: Comments: See Note; NOTES: [facility] Imaging Services [address] [place] [address] Radiology Report MR#: [id number] Acct: [id number] Name: RADHA RAMOS Rep #: [id number] : 1955 F 58 From: Martell Price MD PCP: Leticia Pugh DO Status: REG CLI Study: Chest PA and Lateral Date of Exam: 02/02/14 Exam# [id number] Ordering Dr: Tavni Hawthorne STUDY: X-RAY CHEST REASON FOR EXAM: [...] at 14:11 EST Tel , Service support [phone], RAD/Chest PA and Lateral IMPRESSION: Normal x-ray examination of the chest. Electronically Signed: Martell Price MD 20/01/28 at 14:11 EST , Service support [phone], CC: Tanvi Hawthorne; Leticia Pugh DO Enterprise Security Architect: Signed 29-Jan-2014 ELECTROCARDIOGRAM, COMPLETE (ECG) (52930) Comments: sinus rhythm, similar to 11-19 Result: [MEASUREMENTS ANALYSIS] Date of Test: 01/29/2014 13:47:19; Heart Rate: 86; OK Interval: 136; QRS: 100; QT Interval: 368; Corrected QT Interval (QTc): 413; P Wave Welch: 66; QRS Wave Welch: 41; T Wave Welch : -1; Blood Pressure: 132/74 [ECG DIAGNOSTIC STATEMENTS] Date of Test: 01/29/2014 13:47:19; Summary: Sinus Rhythm WITHIN NORMAL LIMITS 02-Aug-2013 Bilat Scrn Digital & CAD Result: Comments: See Note; NOTES: [facility] Imaging Services [address] [place] [address] [place] [address] Breast Imaging Report MR#: [id number] Acct: [id number] Name: RADHA RAMOS Rep #: [id number] : 1955 F 57 From: Ross Saxena MD PCP: Leticia Pugh DO Status: REG CLI Exam# [id number] Ordering Dr: Zhane Angeles MD MAMMOGRAPHY - [...] [facility]. Approximately 10% of breast cancers are not detected by mammography. A normal mammogram should not delay biopsy of a clinically suspicious abnormality. Electronically Signed: Thompson Saxena MD at 10:52 EDT Tel [phone], Service support [phone], CC: Zhnae Angeles MD; Leticia Pugh DO Enterprise Security Architect: Signed Immunization Name Dates Details Influenza (3 [...] kg/m2 Body Surface Area Calculated 1.94 m2 [id number]:00 Temperature 98.2 f Comments: Method: Oral Pulse [...] Value Details :54 BNP,B-Type NATRIURETIC PEPTIDE Comments: [facility] [id number] [place], [place], [id number] B-TYPE CAMILO PEP 38.2 pg/mL (Normal) Range: 0-100 :54 Troponin-I Comments: 'TROP' Serial specimen #1, #2, #3, or #4: [facility] [id number] [address] [place], [place], [address] TROPONIN-I < 0.015 ng/mL (Normal) Comments: TROPONIN-I EXPECTED VALUES <0.045 Negative 0.045 - 0.590 Consistent with Cardiac Damage > OR = 0.600 Critical Value Not every elevated troponin is indicative of PR. T hesevalues should be used with clinical judgement in examiningthe patient's clinical picture for diagnosis. To establisha diagnosis of PR versus myocardial injury, there must be ademonstrated rise and/ or fall in the troponin values, inaddition to ischemic symptoms, EKG changes, new regionalwall motion abnormality, and/or angiographical evidence. PLEASE NOTE: REFERENCE RANGES EDITED 17:58 Lipid Profile Comments: Order Date: 10/16/16Order Info: [id number] - *Hepatic Function PanelOrder Info: [id number] - *Lipid Profile CC PCPComments: 12 hours fasting, may have water.[facility] [address] [place], [place], [address] VLDL 35 mg/dL (Normal) Range: 5-40 LDL [...] Info: [id number] - *Hepatic Function PanelOrder Info: [id number] - *Lipid Profile CC PCPComments: 12 hours fasting, may have water.[facility] Lhvobppgra[address] [place], [id number] D BILI 0.07 mg/dL (Normal) Range: 0.00-0.30 T BILI 0.70 mg/dL (Normal) Range: 0.20-1.00 ALT 47 U/L (Normal) Range: 13-56 Comments: Please note revised ALT reference range trkorhraz14/28/2018. ALK P 103 U/L (Normal) Range: 45-117 AST 30 U/L (Normal) Range: 15-37 GLOB 3.6 g/dL (Normal) Range: 2.2-4.2 ALB 4.0 g/dL (Normal) Range: 3.2-5.0 T PROT 7.6 g/dL (Normal) Range: 6.4-8.2 71-Fjn-027269:09 Free T3 Comments: [facility] [address] [place], [address] FREE T3 3.2 pg/mL (Normal) Range: 2.18-3.98 23-Lvh-139530:09 T4 Free Direct Comments: [facility] [address]mlvxocb[address] [place], [address] T4 FREE DIRECT 0.84 ng/dL (Normal) Range: 0.76-1.46 78-Nxu-931455:09 Thyroid Stim Hormone (TSH) Comments: [facility] [address]vn[address] [place], [id number] TSH 1.27 {uIU/mL} (Normal) Range: 0.358-3.74 51-Ypr-117184:04 VITAMIN B-12 (CYANOCOBALAMIN) Comments: PATIENT WAS FASTINGPERFORMED BY: [facility] Vcgtlq7396 [facility] [id number] (16902) Vitamin B12 1049 pg/mL (Normal) Range: 232-1245 50-Ldx-607656:04 CALCIFEDIOL (34489) Comments: PATIENT WAS FASTINGPERFORMED BY: [facility] Nnowjz6837 [facility] [id number] Vitamin D, 25-Hydroxy 17.4 ng/mL (Abnormal) Range: 30.0-100.0 Comments: Vitamin D deficiency has been defined by the Hope ofMedicine and an Endocrine Society practice guideline as alevel of serum 25-OH vitamin D less than 20 ng/mL (1,2).The Endocrine Society went on to further define vitamin Dinsufficiency as a level between 21 and 29 ng/mL (2).1. IOM (Hope of Medicine). 2010. Dietary reference intakes for calcium and D. [place]: The National Academies Press.2. Catie MF, Karon ACEVEDO, Myron KESSLER, et al. Evaluation, treatment, and prevention of vitamin D deficiency: an Endocrine Society clinical practice guideline. JCEM. 2010; 96(7):1911-30. 30-Dmv-394384:08 URINE SHANI CULTURE-IDENTIFICATN Comments: PATIENT NOT FASTINGPERFORMED BY: [employer] [facility] Afbaqh5677 [facility]ingSelect [facility] [id number] (46120) Antimicrobial MIHEAD (Normal) Comments: S = Susceptible; [...] mL (Abnormal) Urine Final report Culture,Comprehensive (Abnormal) 99-Iza-556972:08 URINALYSIS (69419) Comments: PATIENT NOT FASTINGPERFORMED BY: [facility] Icknis6666 [place] QutureNovant Health Presbyterian [facility] [id number] Information: SRC:UC Microscopic Examination MICNIP (Normal) Comments: Microscopic not indicated and not performed. Nitrite, Urine Negative (Normal) Urobilinogen,Semi-Qn 0.2 mg/dL (Normal) Range: 0.2-1.0 Bilirubin Negative (Normal) Occult Blood Negative (Normal) Ketones Negative (Normal) Glucose Negative (Normal) Protein Negative (Normal) WBC Esterase Negative (Normal) Appearance Clear (Normal) Urine-Color Yellow (Normal) pH 5.0 (Normal) Range: 5.0-7.5 Specific Elwood 1.021 (Normal) Range: 1.005-1.030 :11 Basic Metabolic Profile (BMP) Comments: 'TROP' Serial specimen #1, #2, #3, or #4: 1[facility] [address]ihmed[address] [place], [address] GAP 9 (Normal) Range: 5-15 [...] A.D.A. criteria. :11 CBC W/Diff, Automated Comments: [facility] Y[address]qco[address]uxp[address] [place], [address] Absolute Lymph 3.23 {X10_3/ul} (Normal) [...] Serial specimen #1, #2, #3, or #4: [facility] Spmzieeaqa8293 [place], [address] TROPONIN-I < 0.02 ng/mL (Normal) Comments: TROPONIN-I EXPECTED VALUES <0.05 NEGATIVE 0.06 - 0.59 AT RISK OF PR > OR = 0.60 SUGGEST PR 13-Nov-20160:00 ASP RADIOLOGY (FLUID) See Note (Normal) Comments: [facility] Uhkoxfyerr8205 [place], [address] Comments: Patient: RADHA RAMOS : 1955 (61/F) Acct Num: [id number] Phys: Jacinto VIDALES,James Unit Num: [id number] Loc: US Specimen: [id number] Received: 11/13/16 - [...] cytology study. / SVETLANA:brayden 11/13/16 TC:5 CPT: 72638, 40198, 881 72 CYTOLOGY STUDY Slides are reviewed. [...] Order Date: 09/21/16Order Info: [id number] - *GuW1EEhiahbzAvita [facility] [address]ia[address]ioihx[address] [place], [place], [address] HGB A1C 6.3 % (Normal) Range: 4.2-6.3 54-Dai-34513:57 Lipid Profile Comments: Order Date: 10/28/15Interface Comments: 12 hours fasting, may have water.[facility] [address] [place], [place], [address] VLDL 28 mg/dL (Normal) Range: 5-40 LDL [...] 10/28/15Interface Comments: 12 hours fasting, may have water.[facility] [address]fsp[address] [place], [place], [address] D BILI 0.11 mg/dL (Normal) Range: 0.00-0.30 T BILI 0.60 mg/dL (Normal) Range: 0.20-1.00 ALT 34 U/L (Normal) Range: 12-78 ALK P 95 U/L (Normal) Range: 45-117 AST 21 U/L (Normal) Range: 15-37 GLOB 3.2 g/dL (Normal) Range: 2.3-3.5 ALB 4.1 g/dL (Normal) Range: 3.4-5.0 T PROT 7.3 g/dL (Normal) Range: 6.4-8.2 95-Waf-083153:14 CBC W/Diff, Automated Comments: Order Date: 09/21/16Order Info: [id number] - *CBC with DifferentialComments: Reason:[facility] [address] [place], [place], [address] Absolute Lymph 2.69 {X10_3/ul} (Normal) Range: 0.83-4.51 [...] 4.2-5.4 WBC 7.3 K/mm3 (Normal) Range: 4.4-11.0 23-Vfa-623828:14 Thyroid Stim Hormone (TSH) Comments: Order Date: 09/21/16Order Info: [id number] - *TSHComments: Reason:[facility] [address] [place], [place], [address] TSH 1.64 {uIU/mL} (Normal) Range: 0.358-3.74 :55 HgA1C , Office (93892) HgA1C , Office 5.8 % (Normal) Range: 4.6 - 7.1 70-Wqd-648941:55 Blood Glucose , Office (38963) Blood Glucose , Office 110 (Normal) 80-Unu-450633:19 THROAT CULTURE (48852) Comments: PATIENT NOT FASTINGPERFORMED BY: LabCoSt. Francis Medical CenterHlkmfe3659 [facility] [id number] Information: SRC:TH Result 1 RRF (Normal) Comments: Routine respiratory jaylyn Upper Respiratory Culture Final report (Normal) 46-Unk-343536:42 LIPID PANEL (36276) Comments: PATIENT WAS FASTINGPERFORMED BY: LabCoSt. Francis Medical CenterRjmupa9172 [facility] [id number] LDL/HDL Ratio 3.4 {ratio_units} (Abnormal) Range: 0.0-3.2 Comments: LDL/HDL Ratio Men Women 1/2 Avg.Risk 1.0 1.5 Av g.Risk 3.6 3.2 2X Avg.Risk 6.2 5.0 3X Avg.Risk 8.0 6.1 LDL Cholesterol Calc 122 mg/dL (Abnormal) Range: 0-99 VLDL Cholesterol Leonel 34 mg/dL (Normal) Range: 5-40 HDL Cholesterol 36 mg/dL (Abnormal) Triglycerides 172 mg/dL (Abnormal) Range: 0-149 Cholesterol, Total 192 mg/dL (Normal) Range: 100-199 01-Pql-191594:42 CALCIFIDIOL (06201) VIT D 25 Comments: PATIENT WAS FASTINGPERFORMED BY: LabCoSeeS[employer] [facility] HospitalThe [facility] FoundationSelect [facility] [id number]; will rview on 07/03 Vitamin D, 25-Hydroxy 23.3 ng/mL (Abnormal) Range: 30.0-100.0 Comments: Vitamin D deficiency has been defined by the Hope ofMedicine and an Endocrine Society practice guideline as alevel of serum 25-OH vitamin D less than 20 ng/mL (1,2).The Endocrine Society went on to further define vitamin Dinsufficiency as a level between 21 and 29 ng/mL (2).1. IOM (Hope of Medicine). 2010. Dietary reference intakes for calcium and D. [place]: The National Academies Press.2. Catie MF, Karon [place], Myron KESSLER, et al. Evaluation, treatment, and prevention of vitamin D deficiency: an Endocrine Society clinical practice guideline. JCEM. 2010; 96(7):1911-30. 57-Ovm-379960:09 HgA1C , Office (65372) HgA1C , Office 6.0 % (Normal) Range: 4.6 - 7.1 22-Gkx-994458:09 Blood Glucose , Office (54807) Blood Glucose , Office 113 (Normal) 79-Akv-093866:21 Microscopic Examination Comments: PATIENT WAS FASTINGPERFORMED BY: [facility] Pqfuvm0523 [facility] [id number] Bacteria Few (Normal) Mucus Threads Present (Normal) Epithelial Cells (non renal) 0-10 {/hpf} (Normal) Range: 0 - 10 RBC 0-2 {/hpf} (Normal) Range: 0 - 2 WBC 0-5 {/hpf} (Normal) Range: 0 - 5 :53 PPD (61332) Comments: lot: 36137uwl: 07/22site/route: L forearm/intradermalamt: 0.1mLVIS signed when applicableChelsea, BREAKDOWN MAN SKIN TEST INTRADERMAL TB negative (Normal) :33 LDH (LD) (LACTATE DEHYDROGENASE) Comments: PATIENT NOT FASTINGPERFORMED BY: [employer]70 Global CrossingSelect [facility] [id number] (33875) LDH 174 [iU]/L (Normal) Range: 119-226 :33 SED RATE ERYTHROCYTE (70006) Comments: PATIENT NOT FASTINGPERFORMED BY: [employer] LabMiartech ([place])rp Msxpdz3296 EPAM SystemsNovant Health Presbyterian Medical Center [id number] Sedimentation Rate-Westergren 2 mm/h (Normal) Range: 0-40 :33 C-REACTIVE PROTEIN (74065) Comments: PATIENT NOT FASTINGPERFORMED BY: [employer] [facility] Dgiler6632 [place] [facility] [id number] C-Reactive Protein, Quant 1.8 mg/L (Normal) Range: 0.0-4.9 :33 TSH (11698) Comments: PATIENT NOT FASTINGPERFORMED BY: [facility] Krlmah7551 [facility] [id number] TSH 2.710 {uIU/mL} (Normal) Range: 0.450-4.500 :33 METABOLIC PANEL, COMPREHENSIVE Comments: PATIENT NOT FASTINGPERFORMED BY: [employer] LabMiart[employer] ([place])rp Dkwrsc3523 [facility] [id number] (68961) ALT (SGPT) 25 [iU]/L (Normal) Range: 0-32 [...] Glucose, Serum 83 mg/dL (Normal) Range: 65-99 88-Fti-386317:33 CBC W/AUTO DIFF WBC (06000) Comments: PATIENT NOT FASTINGPERFORMED BY: LabCoSt. Francis Medical CenterKxwhce7156 [facility] [id number] Immature Grans (Abs) 0.0 {x10E3/uL} (Normal) Range: [...] 3.4-10.8 :00 Culture, Deep Wound Comments: [address] [place], [address] CUDW See Note (Normal) Comments: Comments: ABDOMINAL ABCESSGram StainGram Stain No White Blood Cells No organisms seen Wound CulturePossible skin contamination, further Identification and sensitivity will be performed only by physi taye's request. ORGANISM 1: Coag Negative StaphAmount Growth Very Rare Cult, AnaerobicNo anaerobic bacteria isolated. 79-Fej-480773:51 Albumin, Serum Comments: [address] [place], [address] ALB 4.3 g/dL (Normal) Range: 3.4-5.0 09-Jut-940044:51 Basic Metabolic Profile (BMP) Comments: [address] [place], [place], [address] GAP 6 (Normal) Range: 5-15 CO2 26.0 [...] <126 mg/dLsuggests IMPAIRED HOMEOSTASIS per A.D.A. criteria. 47-Xoj-940018:51 CBC-Complete Blood Cnt No Diff Comments: [facility] [address]olmw[address] [place], [place], [address] MPV 9.4 fL (Normal) Range: 6.2-12.0 PLT [...] (Normal) Range: 4.4-11.0 :51 Hemoglobin A1c Comments: [facility] [address]uczscts7[address] [place], [place], [address] HGB A1C 6.1 % (Normal) Range: 4.2-6.3 :51 Prealbumin Comments: [facility] Tedzllyfgs[address] [place] [place], [address] PREALBUMIN 32.4 mg/dL (Normal) Range: 20.0-40.0 80-Een-36899:06 Urinalysis, Office (21265) UA - LEUKOCYTE ESTERASE Negative (Normal) UA - NITRITE Negative (Normal) URINE UROBILINGN MICHAEL TIMED Normal mg/dL (Normal) UA - PROTEIN Negative mg/dL (Normal) UA - PH 6.0 (Normal) Comments: 5.5 UA - BLOOD Non Hemolyzed Trace (Normal) UA - SPECIFIC GRAVITY 1.030 (Abnormal) UA - KETONES Negative mg/dL (Normal) UA - BILIRUBIN Negative (Normal) UA - GLUCOSE Negative (Normal) 9-Gka-445162:23 SED RATE ERYTHROCYTE Comments: PATIENT WAS FASTINGPERFORMED BY: [facility] HeartMimbres Memorial HospitalSahuvm02[address] [place] [address] [id number] Information: [id number], [id number] (38364) Sedimentation Rate-Westergren 2 mm/h (Normal) Range: 0-40 8-Gbj-000042:27 Aerobic Bacterial Culture Comments: PATIENT WAS FASTINGPERFORMED BY: [facility] [id number] Information: [id number] SRC:AB (15640) Result 1 Mixed skin jaylyn (Normal) Aerobic Bacterial Culture Final report (Normal) 4-Ytw-814144:21 Serum Creatinine AND GFR Comments: [facility] [address]cfiea[address] [place], [place], [address] EST GFR - AA 73 mL/min (Normal) Comments: GFR Calc EST GFR 60 mL/min (Normal) Comments: Non- GFR Calc CREAT,SERUM 1.00 mg/dL (Normal) Range: 0.55-1.20 Comments: The validity of the calculated GFR AND GFRAA in patients over70 years has not been determined. Clinical correlation isessential. 44-Zzg-653044:21 VITAMIN B-12 (CYANOCOBALAMIN) Comments: PATIENT WAS FASTINGPERFORMED BY: Inson Medical SystemsSt. Francis Medical CenterRxrepp8679 [facility] [id number] (10289) Vitamin B12 738 pg/mL (Normal) Range: 211-946 :21 TSH (89540) Comments: PATIENT WAS FASTINGPERFORMED BY: PubNubCorewell [facility]6370 [facility] [id number] TSH 2.440 {uIU/mL} (Normal) Range: 0.450-4.500 :21 URINALYSIS, W/ MICRO (09688) Comments: PATIENT WAS FASTINGPERFORMED BY: [facility]6370 [facility] [id number] Microscopic Examination See below: (Normal) Comments: Microscopic was indicated and was performed. Microscopic Examination MICRON (Normal) Comments: Microscopic follows if indicated. Nitrite, Urine Negative (Normal) Urobilinogen,Semi-Qn 0.2 mg/dL (Normal) Range: 0.2-1.0 Bilirubin Negative (Normal) Occult Blood Negative (Normal) Ketones Negative (Normal) Glucose Negative (Normal) Protein Negative (Normal) WBC Esterase Negative (Normal) Appearance Clear (Normal) Urine-Color Yellow (Normal) pH 5.5 (Normal) Range: 5.0-7.5 Specific Elwood 1.027 (Normal) Range: 1.005-1.030 :21 MICROALBUMIN: CREATININE RATIO Comments: PATIENT WAS FASTINGPERFORMED BY: [facility] HeartSt. Francis Medical CenterGtsztr5992 [facility] [id number] (21425) AND (49814) Microalb/Creat Ratio 2.9 {mg/g_creat} (Normal) Range: 0.0-30.0 Microalbumin, Urine 4.1 ug/mL (Normal) Creatinine, Urine 143.7 mg/dL (Normal) :21 METABOLIC PANEL, COMPREHENSIVE Comments: PATIENT WAS FASTINGPERFORMED BY: PubNubCorewell Health [facility] Hospital6370 [facility] [id number] (74500) ALT (SGPT) 28 [iU]/L (Normal) Range: 0-32 [...] Glucose, Serum 134 mg/dL (Abnormal) Range: 65-99 80-Yme-268730:21 CBC W/AUTO DIFF WBC (35873) Comments: PATIENT WAS FASTINGPERFORMED BY: LabCoSt. Francis Medical CenterYttiwm3502 [facility] [id number] Immature Grans (Abs) 0.0 {x10E3/uL} (Normal) Range: [...] 3.77-5.28 WBC 5.2 {x10E3/uL} (Normal) Range: 3.4-10.8 29-Hcg-360586:21 LIPID PANEL (18061) Comments: PATIENT WAS FASTINGPERFORMED BY: [employer]70 Global CrossingSelect Special[facility] Hospital [facility] [id number] LDL/HDL Ratio 3.0 {ratio_units} (Normal) Range: 0.0-3.2 Comments: LDL/HDL Ratio Men Women 1/2 Avg.Risk 1.0 1.5 Av g.Risk 3.6 3.2 2X Avg.Risk 6.2 5.0 3X Avg.Risk 8.0 6.1 LDL Cholesterol Calc 121 mg/dL (Abnormal) Range: 0-99 VLDL Cholesterol Leonel 27 mg/dL (Normal) Range: 5-40 HDL Cholesterol 41 mg/dL (Normal) Triglycerides 137 mg/dL (Normal) Range: 0-149 Cholesterol, Total 189 mg/dL (Normal) Range: 100-199 21-Gva-114255:21 CALCIFIDIOL (63169) VIT D 25 Comments: PATIENT WAS FASTINGPERFORMED BY: [employer] [facility] Lbcsgh3045 [place] [id number] Vitamin D, 25-Hydroxy 19.5 ng/mL (Abnormal) Range: 30.0-100.0 Comments: Vitamin D deficiency has been defined by the Hope ofMedicine and an Endocrine Society practice guideline as alevel of serum 25-OH vitamin D less than 20 ng/mL (1,2).The Endocrine Society went on to further define vitamin Dinsufficiency as a level between 21 and 29 ng/mL (2).1. IOM (Hope of Medicine). 2010. Dietary reference intakes for calcium and D. [place]: The National Academies Press.2. Catie MF, Karon ACEVEDO, Myron KESSLER, et al. Evaluation, treatment, and prevention of vitamin D deficiency: an Endocrine Society clinical practice guideline. JCEM. 2010; 96(7):1911-30. :19 HgA1C , Office (96366) HgA1C , Office 5.8 % (Normal) Range: 4.6 - 7.1 :19 Blood Glucose , Office (46625) Blood Glucose , Office 79 (Normal) 41-Tlb-462231:15 Lipid Profile Comments: Order Date: 10/21/15Interface Comments: 12 hours fasting, may have water.Order Date: 10/21/15[facility] [address]emf[address] [place], [place], [address] VLDL 28 mg/dL (Normal) Range: 5-40 LDL [...] 200-240 mg/dL Borderline >240 mg/dL High Risk 34-Vzi-274397:15 Liver Profile Comments: Order Date: 10/21/15Interface Comments: 12 hours fasting, may have water.Order Date: 10/21/15[facility] Phsisplcey1413 [address] [place], [place], [address] D BILI 0.13 mg/dL (Normal) Range: 0.00-0.30 T BILI 0.80 mg/dL (Normal) Range: 0.20-1.00 ALT 39 U/L (Normal) Range: 12-78 ALK P 90 U/L (Normal) Range: 50-136 AST 23 U/L (Normal) Range: 15-37 GLOB 3.1 g/dL (Normal) Range: 2.3-3.5 ALB 4.3 g/dL (Normal) Range: 3.4-5.0 T PROT 7.4 g/dL (Normal) Range: 6.4-8.2 :48 HgA1C , Office (86677) HgA1C , Office 5.9 % (Normal) Range: 4.6 - 7.1 :48 Blood Glucose , Office (70947) Blood Glucose , Office 81 (Normal) :50 Microscopic Examination Comments: PATIENT WAS FASTINGPERFORMED BY: [facility] Yuqjem2702 [facility] [id number] Bacteria Few (Normal) Mucus Threads Present (Normal) Epithelial Cells (non renal) 0-10 {/hpf} (Normal) Range: 0 - 10 RBC 0-2 {/hpf} (Normal) Range: 0 - 2 WBC 0-5 {/hpf} (Normal) Range: 0 - 5 :17 VITAMIN B-12 (CYANOCOBALAMIN) Comments: PATIENT NOT FASTINGPERFORMED BY: [facility] HeartSt. Francis Medical CenterYxgian4770 [facility] [id number] (01338) Vitamin B12 928 pg/mL (Normal) Range: 211-946 :17 CALCIFIDIOL (95002) VIT D Comments: PATIENT NOT FASTINGPERFORMED BY: PubNubCorewell Health [facility] Hospital6370 [facility] [id number] Information: [id number] 25 Vitamin D, 25-Hydroxy 20.0 ng/mL (Abnormal) Range: 30.0-100.0 Comments: Vitamin D deficiency has been defined by the Hope ofMedicine and an Endocrine Society practice guideline as alevel of serum 25-OH vitamin D less than 20 ng/mL (1,2).The Endocrine Society went on to further define vitamin Dinsufficiency as a level between 21 and 29 ng/mL (2).1. IOM (Hope of Medicine). 2010. Dietary reference intakes for calcium and D. [place]: The National Academies Press.2. Catie MF, Karon ACEVEDO, Myron KESSLER, et al. Evaluation, treatment, and prevention of vitamin D deficiency: an Endocrine Society clinical practice guideline. JCEM. 2010; 96(7):1911-30. :50 URINALYSIS, W/ MICRO (45570) Comments: PATIENT WAS FASTINGPERFORMED BY: MoneyspyderSelect Specialty Hospital [facility] [id number] Microscopic Examination See below: (Normal) Comments: Microscopic was indicated and was performed. Microscopic Examination MICRON (Normal) Comments: Microscopic follows if indicated. Nitrite, Urine Negative (Normal) Urobilinogen,Semi-Qn 0.2 mg/dL (Normal) Range: 0.2-1.0 Bilirubin Negative (Normal) Occult Blood Negative (Normal) Ketones Negative (Normal) Glucose Negative (Normal) Protein Negative (Normal) WBC Esterase Negative (Normal) Appearance Clear (Normal) Urine-Color Yellow (Normal) pH 6.0 (Normal) Range: 5.0-7.5 Specific [place]wood 1.021 (Normal) Range: 1.005-1.030 :50 MICROALBUMIN: CREATININE RATIO Comments: PATIENT WAS FASTINGPERFORMED BY: [employer] [facility] HospitalThe [facility] FoundationSelect [facility] [id number] (17956) AND (55372) Microalb/Creat Ratio 2.6 {mg/g_creat} (Normal) Range: 0.0-30.0 Microalbumin, Urine 4.4 ug/mL (Normal) Creatinine, Urine 170.1 mg/dL (Normal) :50 METABOLIC PANEL, COMPREHENSIVE Comments: PATIENT WAS FASTINGPERFORMED BY: [facility]yspyderSelect Specialty [facility] [id number] (48596) ALT (SGPT) 28 [iU]/L (Normal) Range: 0-32 [...] DIFF WBC Comments: PATIENT WAS FASTINGPERFORMED BY: LabCoSt. Francis Medical CenterDofbah0449 [facility] [id number] Information: [id number] DL (46972) Immature Grans (Abs) 0.0 {x10E3/uL} (Normal) Range: [...] B-12 (CYANOCOBALAMIN) Comments: PATIENT WAS FASTINGPERFORMED BY: LabCoHaley Ville 9263070 [facility] [id number] (00591) Vitamin B12 589 pg/mL (Normal) Range: 211-946 :50 LIPID PANEL (99212) Comments: PATIENT WAS FASTINGPERFORMED BY: LabCo[address] [id number] LDL/HDL Ratio 3.2 {ratio_units} (Normal) Range: 0.0-3.2 [...] Cholesterol, Total 178 mg/dL (Normal) Range: 100-199 46-Riu-35200:50 CALCIFIDIOL (31626) VIT D 25 Comments: PATIENT WAS FASTINGPERFORMED BY: LabCoSt. Francis Medical CenterQcufzu4471 [place] [id number] Vitamin D, 25-Hydroxy 23.6 ng/mL (Abnormal) Range: 30.0-100.0 Comments: Vitamin D deficiency has been defined by the Hope ofMedicine and an Endocrine Society practice guideline as alevel of serum 25-OH vitamin D less than 20 ng/mL (1,2).The Endocrine Society went on to further define vitamin Dinsufficiency as a level between 21 and 29 ng/mL (2).1. IOM (Hope of Medicine). 2010. Dietary reference intakes for calcium and D. [place]: The National Academies Press.2. Catie MF, Karon ACEVEDO, Myron KESSLER, et al. Evaluation, treatment, and prevention of vitamin D deficiency: an Endocrine Society clinical practice guideline. JCEM. 2010; 96(7):1911-30. :39 HgA1C , Office (82709) HgA1C , Office 5.7 % (Normal) Range: 4.6 - 7.1 :39 Blood Glucose , Office (78228) Blood Glucose , Office 87 (Normal) :08 CK-MB Quantitative and Index Comments: 'TROP' Serial specimen #1, #2, #3, or #4: INT'CKMB' Serial Specimen #1, #2 or #3? 1[facility] [address]qdx[address] [place], [place], [address] CKRI 0.5 % (Normal) Range: 0.0-1.4 Comments: RELATIVE INDEX >1.5% IS PRESUMPTIVELY POSITIVE CPKMB 0.6 ng/mL (Normal) Range: 0.0-5.0 Comments: CK-MB and RI Interpretation MB Relative Index Non-AMI <or= 5 NA Indeterminate > 5 <or= 4 AMI > 5 > 4 CPK TOTAL 114 U/L (Normal) Range: 26-192 :08 Troponin I (51303) Comments: 'TROP' Serial specimen #1, #2, #3, or #4: INT'CKMB' Serial Specimen #1, #2 or #3? 1[facility] [address]qsvzevllr[address] [place], [address] TROPONIN-I < 0.02 ng/mL (Normal) Comments: TROPONIN-I EXPECTED VALUES <0.05 NEGATIVE 0.06 - 0.59 AT RISK OF PR > OR = 0.60 SUGGEST PR 1-Rkv-327109:44 LIPID PANEL (54485) Comments: PATIENT WAS FASTINGPERFORMED BY: LabCo Olkpim4380 [facility] [id number] Information: [id number] LDL/HDL Ratio 2.6 {ratio_units} (Normal) Range: 0.0-3.2 [...] Cholesterol, Total 172 mg/dL (Normal) Range: 100-199 8-Ybd-319477:56 HgA1C , Office (92264) HgA1C , Office 5.8 % (Normal) Range: 4.6 - 7.1 6-Iiu-481420:56 Blood Glucose , Office (87404) Blood Glucose , Office 99 (Normal) 90-Qzf-942361:27 URINE SHANI CULTURE-MICHAEL COL Comments: PATIENT NOT FASTINGPERFORMED BY: LabCoSt. Francis Medical CenterPchfrf2182 [facility] [id number] Information: SRC:[facility] [id number] COUNT (73517) Antimicrobial MIHEAD (Normal) Comments: S = Susceptible; [...] . (Abnormal) Urine Final report Culture,Comprehensive (Abnormal) 83-Gzq-002122:33 Urinalysis, Office (14977) UA - LEUKOCYTE ESTERASE Negative (Normal) UA - NITRITE Negative (Normal) URINE UROBILINGN MICHAEL TIMED Normal mg/dL (Normal) UA - PROTEIN Negative mg/dL (Normal) UA - PH 5 (Abnormal) UA - BLOOD Negative (Normal) UA - SPECIFIC GRAVITY 1.025 (Normal) UA - KETONES Negative mg/dL (Normal) UA - BILIRUBIN Negative (Normal) UA - GLUCOSE Negative (Normal) 70-Ffa-441454:00 Culture, Wound Comments: Test performed at:[facility] [address] [place], [place] [address] CUW See Note (Normal) Comments: SPECIMEN RECEIVED [...] $ <=20 S(NF) indicates non-formulary drug at [facility]. Approval by In fectious Disease Specialist required before non-formulary drugs may be ordered and/or dispensed. 79-Xtu-342536:54 Bedside Glucose Comments: Test performed at:[facility] [address] [place] [address] ; ordered by Dr. Kebede BEDSIDE GLU 126 mg/dL (Abnormal) Range: 70-110 Comments: No Action RequiredMANAGEMENT OF PATIENT CARE PER NURSING PROTOCOL 50-Ilh-943257:25 Urinalysis, Routine (Dipstick) Comments: How was Urine Obtained? SYSTEM ADMINISTRATION MANAGER TO SPECIFYTest performed at:[facility] [address] [place] [address] LEUK ESTERASE Negative /ul (Normal) OCCULT BLOOD-UR Negative /ul (Normal) NITRITE UR Negative (Normal) UROBILI Normal mg/dL (Normal) PROT DIPSTX Negative mg/dL (Normal) pH UR 5.0 (Normal) Range: 5.0 - 8.0 SP.GR. DIPSTX 1.020 (Normal) Range: 1.002-1.030 KETONE UR Negative mg/dL (Normal) BILIRUBIN URINE Negative mg/dL (Normal) GLUCOSE, UR Normal mg/dL (Normal) CLARITY Clear (Normal) COLOR Yellow (Normal) 22-Wvb-499828:01 Bedside Glucose Comments: Test performed at:[facility] [address] [facility] [place] [address] BEDSIDE GLU 108 mg/dL (Normal) Range: 70-110 Comments: Policy and Physicians Orders followedMANAGEMENT OF PATIENT CARE PER NURSING PROTOCOL 69-Hnm-71726:47 CBC W/Diff, Automated Comments: Test performed at:[facility] [address] [facility] [place] [address] Absolute Lymph 2.25 {X10_3/ul} (Normal) [...] 4.2-5.4 WBC 5.9 K/mm3 (Normal) Range: 4.4-11.0 35-Zbg-90030:47 Comprehensive Metabolic Profil Comments: Test performed at:[facility] [address] [place] [address] GAP 11 (Normal) Range: 5-15 CO2 24.0 [...] mg/dL (Normal) Range: 70-110 :33 LIPID PANEL (03528) Comments: PATIENT WAS FASTINGPERFORMED BY: [facility]St[facility] CenterFrbcgg0942 [facility] [id number] LDL/HDL Ratio 3.4 {ratio_units} (Abnormal) Range: 0.0-3.2 [...] 208 mg/dL (Abnormal) Range: 100-199 :33 TSH (09534) Comments: PATIENT WAS FASTINGPERFORMED BY: [facility] HeartSt. [facility] Medical CenterIoxbxx6032 [facility] [id number] TSH 3.440 {uIU/mL} (Normal) Range: 0.450-4.500 :33 METABOLIC PANEL, Comments: PATIENT WAS FASTINGPERFORMED BY: [facility]6370 [facility] [id number] Information: [id number] COMPREHENSIVE (95577) ALT (SGPT) 26 [iU]/L (Normal) Range: 0-32 [...] Glucose, Serum 108 mg/dL (Abnormal) Range: 65-99 22-Iaw-351996:33 CBC (AUTO) (67817) Comments: PATIENT WAS FASTINGPERFORMED BY: [facility] Wwfhwz6097 [facility] [id number] Platelets 216 {x10E3/uL} (Normal) Range: 150-379 RDW 13.9 % (Normal) Range: 12.3-15.4 MCHC 34.1 g/dL (Normal) Range: 31.5-35.7 MCH 28.9 pg (Normal) Range: 26.6-33.0 MCV 85 fL (Normal) Range: 79-97 Hematocrit 41.6 % (Normal) Range: 34.0-46.6 Hemoglobin 14.2 g/dL (Normal) Range: 11.1-15.9 RBC 4.92 {x10E6/uL} (Normal) Range: 3.77-5.28 WBC 5.6 {x10E3/uL} (Normal) Range: 3.4-10.8 95-Lvl-248675:33 VITAMIN B-12 (CYANOCOBALAMIN) Comments: PATIENT WAS FASTINGPERFORMED BY: [facility] Rhrjes0307 [facility] [id number] (08055) Vitamin B12 638 pg/mL (Normal) Range: 211-946 57-Rhf-849463:33 CALCIFIDIOL (09028) VIT D 25 Comments: PATIENT WAS FASTINGPERFORMED BY: [facility] Abclbl7467 [facility] [id number]; apt. 12-13-14 Vitamin D, 25-Hydroxy 19.4 ng/mL (Abnormal) Range: 30.0-100.0 Comments: Vitamin D deficiency has been defined by the Hope ofMedicine and an Endocrine Society practice guideline as alevel of serum 25-OH vitamin D less than 20 ng/mL (1,2).The Endocrine Society went on to further define vitamin Dinsufficiency as a level between 21 and 29 ng/mL (2).1. IOM (Hope of Medicine). 2010. Dietary reference intakes for calcium and D. [place]: The National Academies Press.2. Catie MF, Karon NC, Myron KESSLER, et al. Evaluation, treatment, and prevention of vitamin D deficiency: an Endocrine Society clinical practice guideline. JCEM. 2010; 96(7):1911-30. 6-Owj-212948:47 HgA1C , Office (44523) HgA1C , Office 5.9 % (Normal) Range: 4.6 - 7.1 34-Gac-366409:05 METABOLIC PANEL, Comments: PATIENT NOT FASTINGPERFORMED BY: [facility] Wllhdc4894 [facility] [id number] Information: [id number] COMPREHENSIVE (17414) ALT (SGPT) 24 [iU]/L (Normal) Range: 0-32 [...] Glucose, Serum 139 mg/dL (Abnormal) Range: 65-99 53-Bza-299961:05 CBC (AUTO) (26588) Comments: PATIENT NOT FASTINGPERFORMED BY: [employer] [facility] [id number] Platelets 251 {x10E3/uL} (Normal) Range: 150-379 RDW 13.3 % (Normal) Range: 12.3-15.4 MCHC 33.9 g/dL (Normal) Range: 31.5-35.7 MCH 28.3 pg (Normal) Range: 26.6-33.0 MCV 84 fL (Normal) Range: 79-97 Hematocrit 43.4 % (Normal) Range: 34.0-46.6 Hemoglobin 14.7 g/dL (Normal) Range: 11.1-15.9 RBC 5.19 {x10E6/uL} (Normal) Range: 3.77-5.28 WBC 5.8 {x10E3/uL} (Normal) Range: 3.4-10.8 81-Mua-510436:05 VITAMIN B-12 (CYANOCOBALAMIN) Comments: PATIENT NOT FASTINGPERFORMED BY: [employer] Kclprf0834 [facility] [id number] (99847) Vitamin B12 365 pg/mL (Normal) Range: 211-946 67-Vme-754737:05 TSH (26405) Comments: PATIENT NOT FASTINGPERFORMED BY: [employer] Iqjjyo4151 [facility] [id number] TSH 2.930 {uIU/mL} (Normal) Range: 0.450-4.500 :25 CKMB Comments: 'TROP' Serial specimen #1, #2, #3, or #4: INT'CKMB' Serial Specimen #1, #2 or #3? 1 CPKMB 1.1 ng/mL (Normal) Range: 0.0-5.0 Comments: CK-MB and RI Interpretation MB Relative IndexNon-AMI <or= 5 NAIndeterminate > 5 <or= 4AMI > 5 > 4 CPK 95 U/L (Normal) Range: 26-192 :25 CPK 93 U/L (Normal) Range: 26-192 97-Luc-187638:25 CRP < 2.90 mg/L (Normal) Comments: 'TROP' [...] <0.05 NEGATIVE0.06 - 0.59 AT RISK OF PR> OR = 0.60 SUGGEST PR :32 URINE SHANI CULTURE (MICHAEL Comments: PATIENT NOT FASTINGPERFORMED BY: PubNubCoSt. Francis Medical CenterUtoupy7428 [facility] [id number] Information: SRC:UR [id number] COL COUNT) (11284) Result 1 MUG (Normal) Comments: Mixed urogenital flora25,000-50,000 colony forming units per mL Urine Final report (Normal) Culture,Comprehensive :14 Urinalysis, Office (56774) UA - LEUKOCYTE ESTERASE Negative (Normal) UA - NITRITE Negative (Normal) URINE UROBILINGN MICHAEL TIMED Normal mg/dL (Normal) UA - PROTEIN Negative mg/dL (Normal) UA - PH 5.0 (Normal) Comments: 5.5 UA - BLOOD Negative (Normal) UA - SPECIFIC GRAVITY 1.030 (Abnormal) UA - KETONES Negative mg/dL (Normal) UA - BILIRUBIN Negative (Normal) UA - GLUCOSE Negative (Normal) :51 HgA1C , Office (28131) HgA1C , Office 6.1 % (Normal) Range: 4.6 - 7.1 :16 URINE SHANI CULTURE-MICHAEL COL Comments: PATIENT NOT FASTINGPERFORMED BY: [facility] Ztrwxt6167 [facility] [id number] Information: SRC:UR [id number] COUNT (06414) Result 1 ECV (Abnormal) Comments: Escherichia coli, [...] S Urine Final report Culture,Comprehensi (Abnormal) ve 04-Gpz-620827:59 Urinalysis, Office (20734) UA - LEUKOCYTE ESTERASE Small (Normal) UA - NITRITE Negative (Normal) URINE UROBILINGN MICHAEL TIMED 2 mg/dL (Normal) UA - PROTEIN Negative mg/dL (Normal) UA - PH 6.5 (Normal) UA - BLOOD Hemolyzed Small (Normal) UA - SPECIFIC GRAVITY 1.025 (Normal) UA - KETONES Negative mg/dL (Normal) UA - BILIRUBIN Negative (Normal) UA - GLUCOSE Negative (Normal) :33 HgA1C , Office (21395) HgA1C , Office 6.1 % (Normal) Range: 4.6 - 7.1 :33 Blood Glucose , Office (63184) Blood Glucose , Office 144 (Normal) Comments: non-fasting 93-Nsr-379584:24 Microscopic Examination Comments: PATIENT WAS FASTINGPERFORMED BY: [employer] [facility] [id number] Bacteria Few (Normal) Mucus Threads Present (Normal) Epithelial Cells (non renal) >10 {/hpf} (Abnormal) Range: 0 - 10 RBC 0-2 {/hpf} (Normal) Range: 0 - 2 WBC 0-5 {/hpf} (Normal) Range: 0 - 5 :48 TSH (17205) Comments: PATIENT WAS FASTINGPERFORMED BY: [employer] [facility] [id number] TSH 3.000 {uIU/mL} (Normal) Range: 0.450-4.500 :48 LIPID PANEL (03210) Comments: PATIENT WAS FASTINGPERFORMED BY: [employer] [facility] [id number] LDL/HDL Ratio 2.8 {ratio_units} (Normal) Range: 0.0-3.2 LDL Cholesterol Calc 105 mg/dL (Abnormal) Range: 0-99 VLDL Cholesterol Leonel 26 mg/dL (Normal) Range: 5-40 HDL Cholesterol 37 mg/dL (Abnormal) Comments: According to ATP-III Guidelines, HDL-C >59 mg/dL is considered anegative risk factor for CHD. Cholesterol, Total 168 mg/dL (Normal) Range: 100-199 Triglycerides 128 mg/dL (Normal) Range: 0-149 :48 URINALYSIS, W/ MICRO (31691) Comments: PATIENT WAS FASTINGPERFORMED BY: [employer]70 [facility] [id number] Microscopic Examination See below: (Normal) Microscopic Examination MICRON (Normal) Comments: Microscopic follows if indicated. Nitrite, Urine Negative (Normal) Urobilinogen,Semi-Qn 0.2 mg/dL (Normal) Range: 0.0-1.9 Bilirubin Negative (Normal) Occult Blood Negative (Normal) Ketones Negative (Normal) Glucose Negative (Normal) Protein Negative (Normal) WBC Esterase Negative (Normal) Appearance Clear (Normal) Urine-Color Yellow (Normal) pH 6.0 (Normal) Range: 5.0-7.5 Specific [place]wood 1.026 (Normal) Range: 1.005-1.030 :48 MICROALBUMIN: CREATININE RATIO Comments: PATIENT WAS FASTINGPERFORMED BY: [employer]70 [facility] [id number] (76463) AND (82664) Microalb/Creat Ratio 3.5 {mg/g_creat} (Normal) Range: 0.0-30.0 Microalbumin, Urine 5.6 ug/mL (Normal) Range: 0.0-17.0 Creatinine, Urine 158.6 mg/dL (Normal) Range: 15.0-328.0 :48 METABOLIC PANEL, COMPREHENSIVE Comments: PATIENT WAS FASTINGPERFORMED BY: [employer]6370 [facility] [id number] (59608) ALT (SGPT) 26 [iU]/L (Normal) Range: 0-32 [...] Glucose, Serum 100 mg/dL (Abnormal) Range: 65-99 63-Qyt-69083:48 CBC WITH MANUAL DIFF Comments: PATIENT WAS FASTINGPERFORMED BY: LabCoSt. Francis Medical CenterAqugoz6538 [facility] [id number] Information: [id number] (92460) Immature Grans (Abs) 0.0 {x10E3/uL} (Normal) Range: [...] to dr sánchez; PATIENT WAS FASTINGPERFORMED BY: [facility] HeartSt. [facility] Medical CenterQiwvbi5894 [facility] [id number] (60564) ALT (SGPT) 25 [iU]/L (Normal) Range: 0-32 AST (SGOT) 21 [iU]/L (Normal) Range: 0-40 Alkaline Phosphatase, S 103 [iU]/L (Normal) Range: 39-117 Bilirubin, Direct 0.16 mg/dL (Normal) Range: 0.00-0.40 Bilirubin, Total 0.8 mg/dL (Normal) Range: 0.0-1.2 Albumin, Serum 4.7 g/dL (Normal) Range: 3.5-5.5 Protein, Total, Serum 7.1 g/dL (Normal) Range: 6.0-8.5 :41 LIPID PANEL (04187) Comments: send to dr sánchez; PATIENT WAS FASTINGPERFORMED BY: [facility] HeartHaley Ville 9263070 [facility] [id number] Information: [id number] LDL Cholesterol Calc 104 mg/dL (Abnormal) Range: 0-99 LDL/HDL Ratio 2.7 {ratio_units} (Normal) Range: 0.0-3.2 HDL Cholesterol 39 mg/dL (Abnormal) Comments: According to ATP-III Guidelines, HDL-C >59 mg/dL is considered anegative risk factor for CHD. VLDL Cholesterol Leonel 20 mg/dL (Normal) Range: 5-40 Triglycerides 100 mg/dL (Normal) Range: 0-149 Cholesterol, Total 163 mg/dL (Normal) Range: 100-199 68-Kzx-85717:47 HgA1C , Office (12690) HgA1C , Office 5.7 % (Normal) Range: 4.6 - 7.1 :47 Blood Glucose , Office (38719) Blood Glucose , Office 142 (Normal) :18 Microscopic Examination Comments: PATIENT WAS FASTINGPERFORMED BY: [facility] Gzetbi5869 [address] RoadDublin [place] [id number] Bacteria None seen (Normal) Mucus Threads Present (Normal) Epithelial Cells (non renal) 0-10 {/hpf} (Normal) Range: 0 - 10 RBC None seen {/hpf} (Normal) Range: 0 - 3 WBC 0-5 {/hpf} (Normal) Range: 0 - 5 :18 Vitamin D Hydroxy (78299) Comments: PATIENT WAS FASTINGPERFORMED BY: [facility] Tyqxmb6470 [address] RoadDublin [place] [id number] Vitamin D, 25-Hydroxy 21.1 ng/mL (Abnormal) Range: 30.0-100.0 Comments: Vitamin D deficiency has been defined by the Hope ofMedicine and an Endocrine Society practice guideline as alevel of serum 25-OH vitamin D less than 20 ng/mL (1,2).The Endocrine Society went on to further define vitamin Dinsufficiency as a level between 21 and 29 ng/mL (2).1. IOM (Hope of Medicine). 2010. Dietary reference intakes for calcium and D. [place]: The National Academies Press.2. Catie MF, Karon NC, Myron KESSLER, et al. Evaluation, treatment, and prevention of vitamin D deficiency: an Endocrine Society clinical practice guideline. JCEM. 2010; 96(7):1911-30. :18 TSH (49127) Comments: PATIENT WAS FASTINGPERFORMED BY: [facility] Jkuydt3551 [address] RoadDublin [place] [id number] TSH 2.340 {uIU/mL} (Normal) Range: 0.450-4.500 :18 URINALYSIS, W/ MICRO (30930) Comments: PATIENT WAS FASTINGPERFORMED BY: [facility] Glpvrs8077 [address] RoadDublin [place] [id number] Microscopic Examination See below: (Normal) Microscopic Examination MICRON (Normal) Comments: Microscopic follows if indicated. Nitrite, Urine Negative (Normal) Urobilinogen,Semi-Qn 0.2 mg/dL (Normal) Range: 0.0-1.9 Bilirubin Negative (Normal) Occult Blood Negative (Normal) Ketones Negative (Normal) Glucose Negative (Normal) Protein Negative (Normal) WBC Esterase Negative (Normal) Appearance Clear (Normal) pH 6.0 (Normal) Range: 5.0-7.5 Urine-Color Yellow (Normal) Specific [place] 1.024 (Normal) Range: 1.005-1.030 :18 MICROALBUMIN: CREATININE RATIO Comments: PATIENT WAS FASTINGPERFORMED BY: [employer]70 [facility] GeneticsMon[facility] Medical Center [id number] (25937) AND (61356) Microalb/Creat Ratio 2.7 {mg/g_creat} (Normal) Range: 0.0-30.0 Creatinine, Urine 138.1 mg/dL (Normal) Range: 15.0-278.0 Microalbumin, Urine 3.7 ug/mL (Normal) Range: 0.0-17.0 :18 METABOLIC PANEL, COMPREHENSIVE Comments: PATIENT WAS FASTINGPERFORMED BY: [employer]70 [facility]ingSelect [facility] [id number] (08001) ALT (SGPT) 25 [iU]/L (Normal) Range: 0-32 [...] mg/dL (Normal) Range: 65-99 :18 LIPID PANEL (88359) Comments: PATIENT WAS FASTINGPERFORMED BY: [employer] [facility] [id number] LDL/HDL Ratio 2.8 {ratio_units} (Normal) Range: 0.0-3.2 [...] MANUAL DIFF Comments: PATIENT WAS FASTINGPERFORMED BY: [employer]70 [facility] [id number] Information: [id number] (06121) Immature Grans (Abs) 0.0 {x10E3/uL} (Normal) Range: [...] (Normal) Range: 3.4-10.8 :31 HgA1C , Office (57374) HgA1C , Office 5.5 % (Normal) Range: 4.6 - 7.1 :31 Blood Glucose , Office (42826) Blood Glucose , Office 113 (Normal) :23 HgA1C , Office (20298) HgA1C , Office 6.1 % (Normal) Range: 4.6 - 7.1 :23 Blood Glucose , Office (10602) Blood Glucose , Office 118 (Normal) :33 Microscopic Examination Comments: PATIENT WAS FASTINGPERFORMED BY: LabCorewell [facility]6370 [facility] [id number] Bacteria None seen (Normal) Mucus Threads Present (Normal) Epithelial Cells (non renal) 0-10 {/hpf} (Normal) Range: 0 - 10 RBC 0-3 {/hpf} (Normal) Range: 0 - 3 WBC 0-5 {/hpf} (Normal) Range: 0 - 5 :27 FECAL OCCULT HGB ASSAY- tubes sent home (52022) FECAL OCCULT HGB ASSAY, QUAL, 1-3 SIMULTANEOU negative (Normal) :33 TSH (77239) Comments: PATIENT WAS FASTINGPERFORMED BY: [employer] [facility] [id number] TSH 3.330 {uIU/mL} (Normal) Range: 0.450-4.500 :33 URINALYSIS, W/ MICRO (02781) Comments: PATIENT WAS FASTINGPERFORMED BY: [employer] [facility] [id number] Microscopic Examination MICRON (Normal) Comments: Microscopic follows if indicated. Microscopic Examination See below: (Normal) Nitrite, Urine Negative (Normal) Urobilinogen,Semi-Qn 0.2 mg/dL (Normal) Range: 0.0-1.9 Bilirubin Negative (Normal) Occult Blood Negative (Normal) Ketones Negative (Normal) Glucose Negative (Normal) Protein Negative (Normal) WBC Esterase Negative (Normal) Appearance Clear (Normal) Urine-Color Yellow (Normal) pH 7.0 (Normal) Range: 5.0-7.5 Specific [place] 1.021 (Normal) Range: 1.005-1.030 :33 MICROALBUMIN: CREATININE RATIO Comments: PATIENT WAS FASTINGPERFORMED BY: [employer] [facility] [id number] (31242) AND (47488) Microalb/Creat Ratio 1.6 {mg/g_creat} (Normal) Range: 0.0-30.0 Creatinine, Urine 154.5 mg/dL (Normal) Range: 15.0-278.0 Microalbumin, Urine 2.5 ug/mL (Normal) Range: 0.0-17.0 :33 METABOLIC PANEL, COMPREHENSIVE Comments: PATIENT WAS FASTINGPERFORMED BY: [employer] [facility] [id number] (86096) ALT (SGPT) 24 [iU]/L (Normal) Range: 0-32 [...] Glucose, Serum 105 mg/dL (Abnormal) Range: 65-99 70-Zrc-752472:33 LIPID PANEL (37433) Comments: PATIENT WAS FASTINGPERFORMED BY: LabCoSt. Francis Medical CenterCqbyvk9227 [facility] [id number] LDL Cholesterol Calc 115 mg/dL (Abnormal) Range: 0-99 LDL/HDL Ratio 2.9 {ratio_units} (Normal) Range: 0.0-3.2 HDL Cholesterol 39 mg/dL (Abnormal) Comments: According to ATP-III Guidelines, HDL-C >59 mg/dL is considered anegative risk factor for CHD. VLDL Cholesterol Leonel 32 mg/dL (Normal) Range: 5-40 Cholesterol, Total 186 mg/dL (Normal) Range: 100-199 Triglycerides 160 mg/dL (Abnormal) Range: 0-149 46-Pyh-685458:33 CBC WITH MANUAL DIFF Comments: PATIENT WAS FASTINGPERFORMED BY: DAVID LabCoSt. Francis Medical CenterLgposq7277 [facility] [id number] Information: [id number] (12205) Immature Grans (Abs) 0.0 {x10E3/uL} (Normal) Range: [...] (Normal) Range: 4.0-10.5 :33 Vitamin D Hydroxy (51675) Comments: PATIENT WAS FASTINGPERFORMED BY: LabCoSt. Francis Medical CenterLnbeyz1444 [facility] [id number] Vitamin D, 25-Hydroxy 46.4 ng/mL (Normal) Range: 30.0-100.0 Comments: Vitamin D deficiency has been defined by the Hope ofSelect [facility] and an Endocrine Society practice guideline as alevel of serum 25-OH vitamin D less than 20 ng/mL (1,2).The Endocrine Society went on to further define vitamin Dinsufficiency as a level between 21 and 29 ng/mL (2).1. IOM (Hope of Medicine). 2010. Dietary reference intakes for calcium and D. [place]: The National Academies Press.2. Catie MF, Karon ACEVEDO, Myron KESSLER, et al. Evaluation, treatment, and prevention of vitamin D deficiency: an Endocrine Society clinical practice guideline. JCEM. 2010; 96(7):1911-30. :58 HgA1C , Office (74770) HgA1C , Office 6.0 % (Normal) Range: 4.6 - 7.1 :58 Blood Glucose , Office (49043) Blood Glucose , Office 92 (Normal) :59 HgA1C , Office (89337) HgA1C , Office 5.5 % (Normal) Range: 4.6 - 7.1 :59 Blood Glucose , Office (00158) Blood Glucose , Office 105 (Normal) :40 LIPID PANEL (47812) Comments: PATIENT WAS FASTINGPERFORMED BY: LabCoSt. Francis Medical CenterXhvhmo6961 [facility] [id number] LDL Cholesterol Calc 144 mg/dL (Abnormal) Range: 0-99 LDL/HDL Ratio 3.1 {ratio_units} (Normal) Range: 0.0-3.2 VLDL Cholesterol Leonel 24 mg/dL (Normal) Range: 5-40 HDL Cholesterol 46 mg/dL (Normal) Comments: According to ATP-III Guidelines, HDL-C >59 mg/dL is considered anegative risk factor for CHD. Triglycerides 118 mg/dL (Normal) Range: 0-149 Cholesterol, Total 214 mg/dL (Abnormal) Range: 100-199 3-Epn-051562:40 TSH (40430) Comments: PATIENT WAS FASTINGPERFORMED BY: [facility] HeartSt. Francis Medical CenterIsawbc3397 [facility] [id number] TSH 2.430 {uIU/mL} (Normal) Range: 0.450-4.500 1-Uje-604864:40 URINALYSIS, W/ MICRO (35023) Comments: PATIENT WAS FASTINGPERFORMED BY: [facility] HeartSt. Francis Medical CenterZqsgwf4972 [facility] [id number] Microscopic Examination See below: (Normal) Microscopic Examination MICRON (Normal) Comments: Microscopic follows if indicated. Nitrite, Urine Negative (Normal) Urobilinogen,Semi-Qn 0.2 mg/dL (Normal) Range: 0.0-1.9 Bilirubin Negative (Normal) Occult Blood Negative (Normal) Ketones Negative (Normal) Glucose Negative (Normal) Protein Negative (Normal) WBC Esterase Negative (Normal) Appearance Clear (Normal) Urine-Color Yellow (Normal) pH 5.5 (Normal) Range: 5.0-7.5 Specific [place] 1.022 (Normal) Range: 1.005-1.030 3-Evu-977208:40 MICROALBUMIN: CREATININE RATIO Comments: PATIENT WAS FASTINGPERFORMED BY: [facility] HeartSt. Francis Medical CenterPaemfm5095 [facility] [id number] (39289) AND (88005) Microalb/Creat Ratio 2.2 {mg/g_creat} (Normal) Range: 0.0-30.0 Creatinine, Urine 124.7 mg/dL (Normal) Range: 15.0-278.0 Microalbumin, Urine 2.7 ug/mL (Normal) Range: 0.0-17.0 6-Uag-473916:40 METABOLIC PANEL, COMPREHENSIVE Comments: PATIENT WAS FASTINGPERFORMED BY: PubNubCorewell Health [facility] Hospital6370 [facility] [id number] (65841) ALT (SGPT) 27 [iU]/L (Normal) Range: 0-32 [...] Glucose, Serum 119 mg/dL (Abnormal) Range: 65-99 2-Xik-197327:40 CBC WITH MANUAL DIFF Comments: PATIENT WAS FASTINGPERFORMED BY: LabCoSt. Francis Medical CenterCoazsr6926 [facility] [id number] Information: [id number] (72365) Immature Grans (Abs) 0.0 {x10E3/uL} (Normal) Range: [...] 3.77-5.28 WBC 5.9 {x10E3/uL} (Normal) Range: 4.0-10.5 6-Lpx-498726:40 Microscopic Examination Comments: PATIENT WAS FASTINGPERFORMED BY: PartyWithMeNovant Health [facility] [id number] Bacteria None seen (Normal) Mucus Threads Present (Normal) Epithelial Cells (non renal) 0-10 {/hpf} (Normal) Range: 0 - 10 RBC None seen {/hpf} (Normal) Range: 0 - 3 WBC 0-5 {/hpf} (Normal) Range: 0 - 5 :59 HgA1C , Office (33978) HgA1C , Office 5.8 % (Normal) Range: 4.6 - 7.1 :59 Blood Glucose , Office (08029) Blood Glucose , Office 137 (Normal) :50 URINE SHANI CULTURE (MICHAEL Comments: PATIENT NOT FASTINGPERFORMED BY: In[employer] Medical SystemsSt. Francis Medical CenterMweldf7192 [employer] [facility] [id number] Information: SRC:UR [id number] COL COUNT) (53460) Result 1 MUG (Normal) Comments: Mixed urogenital flora10,000-25,000 colony forming units per mL Urine Final report (Normal) Culture,Comprehensive 09-Oct-20118:53 Urinalysis, Office (64643) UA - BILIRUBIN Large (Normal) UA - BLOOD Negative (Normal) UA - GLUCOSE Negative (Normal) UA - KETONES Negative mg/dL (Normal) UA - LEUKOCYTE ESTERASE Negative (Normal) UA - NITRITE Negative (Normal) UA - PH 6.0 (Normal) UA - PROTEIN Negative mg/dL (Normal) UA - SPECIFIC GRAVITY 1.025 (Normal) URINE UROBILINGN MICHAEL TIMED Normal mg/dL (Normal) 00-Tsu-963668:17 Microscopic Examination Comments: PATIENT WAS FASTINGPERFORMED BY: LabCorewell Health [facility] Hospital[address] [facility] [id number] Bacteria None seen (Normal) Mucus Threads Present (Normal) Epithelial Cells (non renal) 0-10 {/hpf} (Normal) Range: 0 - 10 RBC 0-3 {/hpf} (Normal) Range: 0 - 3 WBC 0-5 {/hpf} (Normal) Range: 0 - 5 [id number] L/S SPINE,MIN 4 VIEWS Radiology Report See [...] Saxena M.D.September 24, 2011 at 3:23:12 PM [id number] Signed GP/GP If you are the referring physician and would like t o consult with theradiologist who provided this interpretation, please contact Marcelo Choudhury at [phone]. If this radiologist is unavailable, youwill be directed to another radiologist to assist. If you are a patient with a question regarding this report, pleasecontactyour referring physician directly. Professional Interpretation Provided By: [employer], Phone ,Fax Dictated on 09/24/11 1000 by Odessa VIDALES,AdamriBrandyranscribed on 09/24/11 1530 by ITS IMPORTSign by Odessa VIDALES,Ross on 09/24/11 1530 Sign by: Ross Saxena MD 30-Fpe-928646:17 Hemoglobin Glyclated (HGB A1C) Comments: PATIENT WAS FASTINGPERFORMED BY: [facility] [id number] ([id number]) Hemoglobin A1c 5.6 % (Normal) Range: 4.8-5.6 Comments: . Increased risk for diabetes: 5.7 - 6.4 Diabetes: >6.4 Glycemic control for adults with diabetes: <7.0 72-Uue-030879:17 LIPID PANEL (91371) Comments: PATIENT WAS FASTINGPERFORMED BY: [facility] [id number] LDL/HDL Ratio 3.2 {ratio_units} (Normal) Range: 0.0-3.2 LDL Cholesterol Calc 126 mg/dL (Abnormal) Range: 0-99 VLDL Cholesterol Leonel 30 mg/dL (Normal) Range: 5-40 HDL Cholesterol 40 mg/dL (Normal) Comments: According to ATP-III Guidelines, HDL-C >59 mg/dL is considered anegative risk factor for CHD. Triglycerides 151 mg/dL (Abnormal) Range: 0-149 Cholesterol, Total 196 mg/dL (Normal) Range: 100-199 13-Pei-603048:17 TSH (10979) Comments: PATIENT WAS FASTINGPERFORMED BY: [facility] [id number] TSH 2.330 {uIU/mL} (Normal) Range: 0.450-4.500 26-Cai-320791:17 URINALYSIS, W/ MICRO (99795) Comments: PATIENT WAS FASTINGPERFORMED BY: [facility]6370 [facility] [id number] Microscopic Examination See below: (Normal) Microscopic Examination MICRON (Normal) Comments: Microscopic follows if indicated. Nitrite, Urine Negative (Normal) Urobilinogen,Semi-Qn 0.2 mg/dL (Normal) Range: 0.0-1.9 Bilirubin Negative (Normal) Occult Blood Negative (Normal) Ketones Negative (Normal) Glucose Negative (Normal) Protein Negative (Normal) WBC Esterase Negative (Normal) Appearance Clear (Normal) Urine-Color Yellow (Normal) pH 5.0 (Normal) Range: 5.0-7.5 Specific [place] 1.022 (Normal) Range: 1.005-1.030 86-Bgk-074494:17 MICROALBUMIN: CREATININE RATIO Comments: PATIENT WAS FASTINGPERFORMED BY: [facility] CenterQbbsri9489 [facility] [id number] ([id number]) AND (56511) Microalb/Creat Ratio 2.4 {mg/g_creat} (Normal) Range: 0.0-30.0 Microalbumin, Urine 3.0 ug/mL (Normal) Range: 0.0-17.0 Creatinine, Urine 125.5 mg/dL (Normal) Range: 15.0-278.0 14-Xgk-102599:17 METABOLIC PANEL, COMPREHENSIVE Comments: PATIENT WAS FASTINGPERFORMED BY: [facility] CenterQnxloh2125 [facility] [id number] (48407) ALT (SGPT) 18 [iU]/L (Normal) Range: 0-40 [...] Glucose, Serum 100 mg/dL (Abnormal) Range: 65-99 36-Tqe-903303:17 CBC WITH MANUAL DIFF Comments: PATIENT WAS FASTINGPERFORMED BY: [facility]CoSt. Francis Medical CenterSlvwsb4626 [facility] [id number] Information: [id number] (28358) Immature Grans (Abs) 0.0 {x10E3/uL} (Normal) Range: [...] (Normal) Range: 4.0-10.5 :17 Vitamin D Hydroxy (07117) Comments: PATIENT WAS FASTINGPERFORMED BY: [employer] [place] [id number] Vitamin D, 25-Hydroxy 15.2 ng/mL (Abnormal) Range: 30.0-100.0 Comments: Vitamin D deficiency has been defined by the [facility] of[facility] and an Endocrine Society practice guideline as alevel of serum 25-OH vitamin D less than 20 ng/mL (1,2).The Endocrine Society went on to further define vitamin Dinsufficiency as a level between 21 and 29 ng/mL (2).1. IOM (Hope of Medicine). 2010. Dietary reference intakes for calcium and D. [place]: The National Academies Press.2. Catie MF, Karon [place], Myron KESSLER, et al. Evaluation, treatment, and prevention of vitamin D deficiency: an Endocrine Society clinical practice guideline. JCEM. 2010; 96(7):1911-30. :46 CK, Total+Isoenzymes, Serum Comments: PATIENT NOT FASTINGPERFORMED BY: [facility] [id number] CK-BB 0 % (Normal) CK-MB 0 % (Normal) Range: 0-3 Macro Type 1 0 % (Normal) CK-MM 100 % (Normal) Range: 97-100 Macro Type 2 0 % (Normal) Creatine Kinase,Total,Serum 82 U/L (Normal) Range: 24-173 66-Hpm-200099:00 Urinalysis, Office (71826) UA - BILIRUBIN Negative (Normal) UA - BLOOD Negative (Normal) UA - GLUCOSE Negative (Normal) UA - KETONES Negative mg/dL (Normal) UA - LEUKOCYTE ESTERASE Negative (Normal) UA - NITRITE Negative (Normal) UA - PH 5.0 (Normal) UA - PROTEIN Negative mg/dL (Normal) UA - SPECIFIC GRAVITY 1.025 (Normal) URINE UROBILINGN MICHAEL TIMED Normal mg/dL (Normal) 86-Smy-282452:49 HgA1C , Office (29136) HgA1C , Office 6.4 % (Normal) Range: 4.6 - 7.1 23-Zcu-778132:49 Blood Glucose , Office (97049) Blood Glucose , Office 186 (Normal) 35-Dij-415395:14 Metabolic Panel, Basic Comments: PATIENT NOT FASTINGPERFORMED BY: [facility]6370 [facility] [id number] Information: [id number] (95354) Calcium, Serum 9.4 mg/dL (Normal) Range: 8.7-10.2 [...] Glucose, Serum 202 mg/dL (Abnormal) Range: 65-99 42-Qpl-45858:45 Urinalysis, Office (15399) UA - BILIRUBIN Small (Normal) UA - BLOOD Negative (Normal) UA - GLUCOSE Negative (Normal) UA - KETONES Small mg/dL (Normal) UA - LEUKOCYTE ESTERASE Negative (Normal) UA - NITRITE Negative (Normal) UA - PH 5.0 (Normal) UA - PROTEIN Negative mg/dL (Normal) UA - SPECIFIC GRAVITY 1.025 (Normal) URINE UROBILINGN MICHAEL TIMED Normal mg/dL (Normal) 7-Hwb-632271:50 URINE SHANI CULTURE-MICHAEL COL Comments: PATIENT NOT FASTINGPERFORMED BY: [facility] TechnologyMon[facility] Center [id number] Information: SRC:[facility] [id number] COUNT (33139) Result 1 ECV (Normal) Comments: Escherichia coli, [...] S Urine Final report (Normal) Culture,Comprehensiv e 3-Jnq-342664:27 Urinalysis, Office (38942) UA - BILIRUBIN Small (Normal) UA - BLOOD Hemolyzed Large (Normal) UA - GLUCOSE Negative (Normal) UA - KETONES Negative mg/dL (Normal) UA - LEUKOCYTE ESTERASE Small (Normal) UA - NITRITE Negative (Normal) UA - PH 6.0 (Normal) UA - PROTEIN 300 mg/dL (Normal) UA - SPECIFIC GRAVITY 1.025 (Normal) URINE UROBILINGN MICHAEL TIMED Normal mg/dL (Normal) 01-Vir-207773:03 CALCIFIDIOL (57253) VIT D Comments: PATIENT NOT FASTINGPERFORMED BY: [facility] [id number] Information: [id number] Vitamin D, 25-Hydroxy 28.0 ng/mL (Abnormal) Range: 32.0-100.0 Comments: Effective January 26, 2011 Vitamin D, 25-Hydroxy reference intervals will be changing to 30-100. .Recent studies consider the lower li lucio of 32.0 ng/mL to be athreshold for optimal health.Francisco Javier FOSTER. J Nutr. 2004;135(2):317-22. 05-Ifm-142299:09 KNEE,4 OR MORE VIEWS Radiology Report See [...] on 10/03/101323 Sign by: Ross Saxena MD 01-Tld-11355:00 KNEE,4 OR MORE VIEWS Radiology Report See [...] 10/03/10 1325 Sign by: Ross Saxena MD 25-Ozx-69160:00 RHEUMATOID FACTOR-QUANT Comments: PATIENT NOT FASTINGPERFORMED BY: [employer] Otnalw1102 [facility] [id number] BY: [address] [id number] (76386) RA Latex Turbid. 8.6 {IU/mL} (Normal) Range: 0.0-13.9 :00 PARATHORMONE (77839) Comments: PATIENT NOT FASTINGPERFORMED BY: [employer] Ooncbl3057 [facility] [id number] BY: [address] [id number] PTH, Intact 23 pg/mL (Normal) Range: 15-65 :00 CALCIUM SERUM (36911) Comments: PATIENT NOT FASTINGPERFORMED BY: [facility] Ynutfu3552 [facility] [id number] BY: [address] [id number] Calcium, Serum 9.4 mg/dL (Normal) Range: 8.7-10.2 CCP Antibodies IgG/IgA 3 {units} (Normal) Comments: PATIENT NOT FASTINGPERFORMED BY: [facility] Yaihmr5315 [facility] [id number] BY: [address] [id number] :00 Range: 0-19 Comments: Negative <20 Weak positive 20 - 39 Moderate positive 40 - 59 Strong positive >59 46-Kgt-264872:15 STEVE DIR SEMI-QL STEVE DIRECT 33 AU/mL (Normal) 90-Glu-242043:15 ANTI JO1 ANTI ABIGAIL 7 AU/mL (Normal) 55-Tzx-764498:15 C-REACTIVE PROT 3.34 mg/L (Abnormal) Range: 0.0-3.0 [...] {uIU/mL} (Normal) Range: 0.358-3.74 :15 VIT D,25 55535 13.3 ng/mL (Abnormal) Comments: appt 09/29/10 Range: 32.0-100.0 Comments: Recent studies consider the lower limit of 32.0 ng/mL to dory threshold for optimal health.Francisco Javier FOSTER. J Nutr. 2004;135(2):317-22.Performed at: [address] [id number]Lab Director: Hamida Boyer MD, Phone: [phone] 90-Ywg-72078:20 HEPATOBILIARY IMAGING Radiology Report See Note (Normal) [...] 06/05/10 1347 Sign by: Ross Saxena MD 40-Mnp-87184:51 GALLBLADDER Radiology Report See Note (Normal) Comments: [...] on 05/27/10 1015 by ITS IMPORTSign by Merdeith OCASIO MDERTO on 05/27/10 1015 Sign by: ADRIAN OCASIO MD H.PYLORI [id number] < 0.9 U/mL Range: 0.0-0.8 3:08 (Normal) Comments: Negative <0.9 Indeterminate 0.9 - 1.0 Positive >1.0Performed at: [facility] [id number] Director: Hamida Boyer MD, Phone: [phone] 21-Ire-373910:21 FECAL OCCULT- Tubes sent home (99325) FECAL OCCULT HGB ASSAY, QUAL, 1-3 SIMULTANEOU negative (Normal) 11-Sep-20088:22 THYROID IMAGING ONLY Radiology Report See Note (Normal) Comments: Exam Number: [id number] THYROID SCAN AND UPTAKE The patient was [...] on August. Reported By: KEVIN YUAN M.D. 39-Sfk-965211:05 THYROID Radiology Report See Note (Normal) Comments: Exam Number: [id number] CLINICAL:52-year-old female with nodules ULTRASOUND THYROID COMPARISON:None. [...] Report See Note (Normal) Comments: Exam Number: [id number] CLINICAL:52-year-old female with swollen areas at base of neck, anteriorly. Possible supraclavicular masses. 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 No [...] further evaluation. Reported By: DONTAE ESPINAL M.D. 98-Ruj-755691:47 UPPER EXT/JT ONLY (ROUTINE) Radiology Report See Note (Normal) Comments: Exam Number: [id number] MRI OF THE RIGHT SHOULDER WITHOUT CONTRAST. [...] subacromial fat. Reported By: EMELI COLEMAN M.D. 1-Vsr-583583:03 SHOULDER,MIN 2 VIEWS (MT) Radiology Report See Note (Normal) Comments: Exam Number: [id number] RIGHT SHOULDER, 4 VIEWS CLINICAL STATEMENTPain. PRIOR STUDIESNone. No acute fracture, joint dislocation or AC joint separation is shown. Joint spaces are maintained. No significa nt spurring or pathologiccalcifications. No suspicious bone lesions. Right lung apex isclear. IMPRESSIONNegative right shoulder. Reported By: LESLI CURIEL M.D. 27-Xfn-470151:15 GASTRIC EMPTYING STUDY Radiology Report See Note (Normal) Comments: Exam Number: [id number] NUCLEAR MEDICINE GASTRIC EMPTYING STUDY SOLID PHASE [...] II, controlled, with no complications : Reviewed Service Observer Letter Indication: Diabetes mellitus type II, controlled, [...] mellitus, well controlled Abscess, abdomen : Reviewed Service Observer Letter Indication: Abscess, abdomen Type II diabetes mellitus, well controlled : Eprescribed prescriptions (G8553) Indication: Type II diabetes mellitus, well controlled Abscess, abdomen : Reviewed Service Observer Letter- dr [facility] [...] : Follow up in 2 weeks with [facility] for diabetic teaching Indication: Other [...] disease) Planned Observations Rapid Strep Test, Office (58141)Indication: Sore throat On: 03-Kuw-741888:31 Request SED RATE ERYTHROCYTE (40251)Indication: Abscess, abdomen On: 16-Dec-2015 Request BACT CULTURE ANY-ANAEROBIC (26106)Indication: Abscess, abdomen On: 13-Dec-20157:42 Request CALCIFIDIOL (38778) VIT D 25Indication: Vitamin D deficiency, unspecified On: 99-Shl-587422:30 Request CPK MB FRACTION (50613)Indication: Chest pain at rest On: 5-Ufp-669634:30 Request CREATINE KINASE TOTAL (13451)Indication: Chest pain at rest On: 8-Viq-331291:30 Request Troponin I (81578)Indication: Chest pain On: 97-Yhl-610196:19 Request CPK MB FRACTION (17170)Indication: Chest pain On: 22-Zps-082402:19 Request CREATINE KINASE TOTAL (00773)Indication: Chest pain On: 24-Ehd-306132:19 Request C-Reactive Protein (09788)Indication: Chest pain On: 48-Qmf-303285:19 Request Vitamin D Hydroxy (95629)Indication: Vitamin D deficiency, unspecified On: 49-Nsb-91230:00 Request TSH (17416)Indication: Diabetes mellitus type II, controlled, with no complications On: :59 Request URINALYSIS, W/ MICRO (02667)Indication: Diabetes mellitus type II, controlled, with no complications On: :59 Request MICROALBUMIN: CREATININE RATIO (70837) AND (72836)Indication: Diabetes mellitus type II, controlled, with no complications On: :59 Request METABOLIC PANEL, COMPREHENSIVE (47013)Indication: Diabetes mellitus type II, controlled, with no complications On: 99-Kmc-70682:59 Request LIPID PANEL (87412)Indication: Hypercholesteremia On: :59 Request CBC W/AUTO DIFF WBC (70878)Indication: Diabetes mellitus type II, controlled, with no complications On: 24-Xzc-09906:59 Request Blood Glucose , Office (17456)Indication: Diabetes mellitus type II, controlled, with no complications On: 49-Hsv-22765:51 Request Lipid Panel (92490)Indication: Hypercholesteremia On: 32-Sik-077229:10 Request HEPATIC FUNCTION PANEL (12545)Indication: Hypercholesteremia On: :10 Request LIPID PANEL (57198)Indication: Hypercholesteremia On: :48 Request CPK TOTAL & ISOENZYMES (49834)Indication: Epigastric pain On: 39-Tub-816914:33 Request Urinalysis, Office (25869)Indication: Dysuria On: 9-Ecf-511926:01 Request CCP ANTIBODY (04356)Indication: Pain in joint, unspecified site On: 51-Xtr-26463:51 Request STEVE (ANTINUCLEAR ANTIBODY) (83194)Indication: Myalgia On: :24 Request CALCIFIDIOL (33936) VIT D 25Indication: Myalgia On: :20 Request TSH (19696)Indication: Myalgia On: :20 Request SED RATE ERYTHROCYTE (91573)Indication: Myalgia On: :20 Request STEVE (ANTINUCLEAR ANTIBODY) (37154)Indication: Myalgia On: :20 Request Anti-Abigail-1 (88967)Indication: Myalgia On: :20 Request Creatine Kinase Total (62430)Indication: Myalgia On: :19 Request C-Reactive Protein (06773)Indication: Myalgia On: :19 Request HELICOBACTER PYLORI ANTIBODY (25123)Indication: Epigastric pain On: 77-Pkw-155383:21 Request Planned Procedures B 12 Injection, 1000 mcg On: 09-Dec-2017 Intent (J3420)By: Lexy ISAACS, Comments: Vitamin B12 1000 mcg injectionLot--[id number]--jan 2019L Delt IMpt tolerated wellTLOCKLEAR, DEVOPS SOLUTIONS ARCHITECT Leticia Pugh DO, Leticia B 12 Injection, 1000 mcg On: 26-Nov-2017 Intent (J3420)By: Tammy Shaw Comments: lot:[id number]:jan 2019site/route:L deltoid amt:1ml 1,000mcg/mlJasmin, CCMA B 12 Injection, 1000 mcg On: 15-Nov-2017 Intent (J3420)By: Lexy ISAACS, Comments: lot: [id number]: 01/24site/route: L del/IMamt: 1mLVIS signed when applicableChelsea, BREAKDOWN MAN Leticiaaura Pugh DO, Leticia INJECTION, VITAMIN B-12 On: 27-Oct-2017 Intent CYANOCOBALAMIN, UP TO 1000 Comments: lot:[id number]:rte:IM right deltoid dose:1ml given by:fozia Overton DEVOPS SOLUTIONS ARCHITECT EZEKIEL (Special Coverage Instructions Apply. See CIM: 45-4 and MCM: 2049) (J3420)By: Visit, Nurse B 12 Injection, 1000 mcg On: 15-Oct-2017 Intent (J3420)By: Visit, Nurse Comments: lot:[id number]:05/2019rte:IM left arm dose:1ml given by:fozia Overton LPN B 12 Injection, 1000 mcg On: 30-Sep-2017 Intent (J3420)By: Visit, Nurse Comments: [id number]/61626ha, 41739moqr dltd, IMCM, BREAKDOWN MAN B 12 Injection, 1000 mcg On: 16-Sep-2017 Intent (J3420)By: Rolando Calderon Comments: Vitamin b12 1000mcg injection lot:[id number]:05/2018L DELT IMpt tolerated well MSMITH,DEVOPS SOLUTIONS ARCHITECT B 12 Injection, 1000 mcg On: 02-Sep-2017 Intent (J3420)By: Visit, Nurse Comments: 1 ml given rt arm lot [id number] EXP 05/24 B 12 Injection, 1000 mcg On: 19-Aug-2017 Intent (J3420)By: Rolando Calderon Comments: Vitamin b12 1000mcg injection lot:[id number]:12/2018L DELT IMpt tolerated well MSMITH,DEVOPS SOLUTIONS ARCHITECT B 12 Injection, 1000 mcg On: 06-Aug-2017 Intent (J3420)By: Lexy ISAACS, Comments: vitamin b12 1000mcg injectionlot: [id number]: 12/2018L DELT IMpt tolerated wellAD DEVOPS SOLUTIONS ARCHITECT Leticia Lexy DO, Leticia B 12 Injection, 1000 mcg On: 22-Jul-2017 Intent (J3420)By: Lexy ISAACS, Comments: Vitamin b12 1000mcg injection lot:[id number]:12/2018R DELT IMpt tolerated well MSMITH,DEVOPS SOLUTIONS ARCHITECT Leticia Lexy DO, Leticia B 12 Injection, 1000 mcg On: 09-Jul-2017 Intent (J3420)By: Lexy ISAACS, Comments: Vitamin b12 1000mcg injection lot:[id number]:12/2018L DELT IMpt tolerated well MSMITH,DEVOPS SOLUTIONS ARCHITECT Leticia Lexy DO, Leticia B 12 Injection, 1000 mcg On: 24-Jun-2017 Intent (J3420)By: Lexy ISAACS, Comments: vitamin b12 1000mcg injectionlot: [id number]: 12/2018L DELT IMpt tolerated wellAD DEVOPS SOLUTIONS ARCHITECT Leticia Lexy DO, Leticia B 12 Injection, 1000 mcg On: 11-Jun-2017 Intent (J3420)By: Tanvi Hawthorne CNP Comments: lot [id number] 07/2018rt odne3736 mcgas, DEVOPS SOLUTIONS ARCHITECT B 12 Injection, 1000 mcg On: 28-May-2017 Intent (J3420)By: Visit, Nurse Comments: [id number] dltd, IM Toradol Injection, 30 mg On: 28-May-2017 Intent (J1885)By: Visit, Nurse Comments: 77238xe2/2019R hip, IM30mg/2 unitsMLONG, DEVOPS SOLUTIONS ARCHITECT Toradol Injection, 30 mg On: 21-May-2017 Intent (J1885)By: Lexy ISAACS, Comments: toradol 30mg injectionlot: 14-445-YQyar: 10/2018L GMpt tolerated wellAD DEVOPS SOLUTIONS ARCHITECT Leticia Lexy DO, Leticia X-RAY OF SACROILIAC JOINT On: 21-May-2017 Intent (30727)By: Leticia Pugh DO Lexy DO, Leticia B 12 Injection, 1000 mcg On: 13-May-2017 Intent (J3420)By: Ginna, Nurse Comments: [id number] dltdRoel, DEVOPS SOLUTIONS ARCHITECT B 12 Injection, 1000 mcg On: 29-Apr-2017 Intent (J3420)By: Lexy ISAACS, Comments: vitamin b12 1000mcg injectionlot: 1466953.1exp: 07/2018L DELT IMpt tolerated wellAD DEVOPS SOLUTIONS ARCHITECT Leticia Lexy DO, Leticia B 12 Injection, 1000 mcg On: 16-Apr-2017 Intent (J3420)By: Yamilex Duffy Comments: vitamin b12 1000mcg injectionlot: [id number]: 07/2018L DELT IMpt tolerated wellAD DEVOPS SOLUTIONS ARCHITECT B 12 Injection, 1000 mcg On: 01-Apr-2017 Intent (J3420)By: Lexy ISAACS, Comments: vitamin b12 1000mcg injectionlot: [id number]: 07/2019L DELT IMpt tolerated wellAD DEVOPS SOLUTIONS ARCHITECT Leticia Lexy DO, Leticia B 12 Injection, 1000 mcg On: 18-Mar-2017 Intent (J3420)By: Lexy ISAACS, Comments: Lot:[id number]:07/2018Dose:1mlRoute:IMSite:l arm Given By:LATANYA signed Leticia Lexy DO, [...] injectionlot: 7062exp: 04/2018L DELT IMpt tolerated wellAD DEVOPS SOLUTIONS ARCHITECT Leticia Lexy DO, Leticia B 12 Injection, 1000 mcg On: 01-Jan-2017 Intent (J3420)By: Lexy ISAACS, Comments: lot: [id number]: 04/26site/route: L del/IMamt: 1mLVIS signed when applicableChelsea, BREAKDOWN MAN Leticia Lexy DO, Leticia B 12 Injection, 1000 mcg On: 18-Dec-2016 Intent (J3420)By: Lexy ISAACS, Comments: b12 1000mcg lot [id number]: 10/2017L Delt IMpt tolerated wellAD DEVOPS SOLUTIONS ARCHITECT Leticiaaura Pugh DO, Leticia B 12 Injection, [...] 818site/route: L del/IMamt: 1mLVIS signed when applicableChelsea, BREAKDOWN MAN Leticiaaura Pugh DO, Leticia B 12 Injection, 1000 mcg On: 23-Oct-2016 Intent (J3420)By: Visit, Nurse Comments: [id number]/201955646icNwymg Dltd, IMmlong, custodian B 12 Injection, 1000 mcg On: 08-Oct-2016 Intent (J3420)By: Lexy ISAACS, Comments: lot: [id number]: 818site/route: L del/IMamt: 1mLVIS signed when applicableChelsea, BREAKDOWN MAN Leticia Lexy DO, Leticia B 12 Injection, 1000 mcg On: 17-Sep-2016 Intent (J3420)By: Visit, Nurse Comments: see flowsheet 1ml givenKM, BREAKDOWN MAN B 12 Injection, 1000 mcg On: 04-Sep-2016 Intent (J3420)By: Lexy ISAACS, Comments: lot: [id number]: 18site/route: R del/IMamt: 1mLVIS signed when applicableMegan, DEVOPS SOLUTIONS ARCHITECT Leticia Lexy DO, Leticia B 12 Injection, 1000 mcg On: 24-Aug-2016 Intent (J3420)By: Lexy ISAACS, Comments: Lot:[id number]:11/23Dose:1mlRoute:IMSite:l armGiven By:LATANYA signed Leticia Lexy DO, Leticia B 12 Injection, 1000 mcg On: 19-May-2016 Intent (J3420)By: Christoph CHOPRA Shey Comments: Lot:[id number]:09/2017Dose:1mlRoute:IMSite:l armGiven By:LATANYA signed Wax CurettesBy: Christoph CHOPRA, On: 19-May-2016 Intent Tanvi [place] [employer] (29490)By: On: 19-May-2016 Intent Christoph CHOPRA Shey B 12 Injection, 1000 mcg On: 08-Apr-2016 Intent (J3420)By: Lexy ISAACS, Comments: Lot:615Exp:06/23Dose:1mlRoute:IMSite:l arm Given By:LATANYA signed Leticia Lexy DO, Leticia B 12 Injection, 1000 mcg On: 20-Mar-2016 Intent (J3420)By: Lexy ISAACS, Comments: lot: [id number]: 18site/route: L del/IMamt: 1mLVIS signed when applicableChelsea, BREAKDOWN MAN Leticia Lexy DO, Leticia B 12 Injection, [...] CAT SCAN OF ABDOMEN On: 12-Dec-2015 Intent (05544)By: Lexy ISAACS, Leticia Lexy DO, Leticia B 12 Injection, 1000 mcg On: 06-Dec-2015 Intent (J3420)By: Lexy ISAACS, Comments: B12lot:6185exp:ite:lt deltroute:IMdose:1mlD.JEANMARIE Ray Leticia Lexy DO, Leticia Rocephin Injection, 2 Gram On: 04-Dec-2015 Intent (J0696)By: Tammy Ortez DO Comments: lot: [id number]: 03/08/18site/route: RGM and LGM/IMamt: 2GVIS signed when applicableCRISTINO Casey B 12 Injection, 1000 mcg On: 25-Nov-2015 Intent (J3420)By: Lexy ISAACS, Comments: Lot:615Exp:06/23Dose:1mlRoute:IMSite:l Maximven By:MLVIS signed Leticia Lexy DO, Leticia B 12 Injection, 1000 mcg On: 08-Nov-2015 Intent (J3420)By: Lexy ISAACS, Comments: 1000 mcglot 21375/18left dltdIMas, DEVOPS SOLUTIONS ARCHITECT Leticia Lexy DO, Leticia B 12 Injection, 1000 mcg On: 22-Oct-2015 Intent (J3420)By: Visit, Nurse Comments: 38667/181mlLdltdML, DEVOPS SOLUTIONS ARCHITECT B 12 Injection, 1000 mcg On: 03-Oct-2015 Intent (J3420)By: Henri Ray Comments: B12lot:6155exp:ite:rt deltroute:IMdose:1mlD.JEANMARIE Ray B 12 Injection, 1000 mcg On: 20-Sep-2015 Intent (J3420)By: Danika Caputo MD Comments: Lot:[id number]:07/23Dose:1mlRoute:IMSite:l Maximven By:LATANYA signed M B 12 Injection, 1000 mcg On: 05-Sep-2015 Intent (J3420)By: Lexy ISAACS, Comments: B12lot:5200exp:07/22site:rt glutroute:imdose:1mlD.JEANMARIE Ray DO, Kathleen TD VACCINE ADULT (76125)By: On: 04-Apr-2015 Intent Henri Ray TDAP VACCINE >7 IM On: 04-Apr-2015 Intent (90888)By: Henri Ray Comments: Tdaplot:DC1YKhyw:01/24/17site:lt deltoidroute:ImDEMICk, MA B 12 Injection, 1000 mcg On: 04-Apr-2015 Intent (J3420)By: Henri Ray Comments: B12lot:5310exp:11/22site: rt deltroute:DQqfai0ucNZVUQU, MA B 12 Injection, 1000 mcg On: 25-Feb-2015 Intent (J3420)By: Henri Ray Comments: B12lot:[id number]:06/22site: rt delroute:IMdose:1mlDESHA B 12 Injection, 1000 mcg On: 28-Jan-2015 Intent (J3420)By: Lexy ISAACS, Comments: Lot:[id number]:06/22Dose:1mlRoute:IMSite:erne Panven By JETHRO signed Leticiaaura Pugh Carole ISAACSLeticia B 12 Injection, 1000 mcg On: 01-Jan-2015 Intent (J3420)By: Lexy ISAACS, Comments: Lot:[id number]:06/22Dose:1mlRoute:IMSite:rene Panven By:LATANYA signed Leticia Pugh DO Leticia B 12 Injection, 1000 mcg On: 03-Dec-2014 Intent (J3420)By: Lexy ISAACS, Comments: lot: [id number]: 05/22site/route: L del/IMamt: 0.5mLVIS signed when applicableCarmela BREAKDOWN MAN Leticia Lexy DO, Leticia B 12 Injection, 1000 mcg On: 13-Sep-2014 Intent (J3420)By: Lexy ISAACS, Comments: Lot:[id number]:11.16Route:IMSite:R deltoidDose: 1 mLgiven by: Altagracia Dumas CMA Leticia Lexy DO, Leticia B 12 Injection, 1000 mcg On: 05-Sep-2014 Intent (J3420)By: Lexy ISAACS, Comments: Lot:[id number]:3.16Route:IMSite:R deltoidDose: 1 mLgiven by: Altagracia Dumas CMA Leticianicolas Pugh DO, Leticia EKG ([id number])By: Lexy ISAACS, On: 05-Sep-2014 Intent Leticia Pugh [...] On: 17-May-2014 Intent (J3420)By: Visit, Nurse Comments: [id number] Dltd, IMMegan, LPN1ml MRI - Brain (IV [...] CHOPRA, On: 29-Jan-2014 Intent Tanvi Mary EKG ([id number])By: Lexy ISAACS, On: 30-Nov-2013 Intent Leticia Reza DO Comments: nsr no acute chg SPECIMEN HANDLING/TRANSPORT On: 20-Nov-2013 Intent ([id number])By: Tanvi Hawthorne CNP PNEUM VAC ADLT/IMUMNOSPR, On: 24-Nov-2012 Intent SBC/INTRM ([id number])By: Lexy Comments: lot: [id number]: 09/24/13site/route: L deltoid/IMamt: 0.5mLVIS signed when applicableChelsea, BREAKDOWN MAN DO, Leticia Lexy DO, Leticia Ultrasound - ThyroidBy: On: 24-Nov-2012 Intent Lexy DO, Leticia Lexy DO, Leticia IMMUNIZ ADMNIN, 1 VAC, On: 24-Nov-2012 Intent SNGL/COMBO ([id number])By: Leticia Pugh DO Lexy DOLeticia Eprescribed prescriptions On: 24-Nov-2012 Intent ([id number])By: Carmela Chery EKG ([id number])By: Shalini, On: 15-Aug-2012 Intent Yennifer NAZARIO Comments: nsr no acute chg Eprescribed prescriptions On: 15-Aug-2012 Intent ([id number])By: Yennifer Loya LPN Eprescribed prescriptions On: 16-May-2012 Intent ([id number])By: Lexy DO, Leticia Lexy DO, Leticia Eprescribed prescriptions On: 15-Feb-2012 Intent ([id number])By: Yennifer Loya LPN EKG ([id number])By: Lexy DO, On: 24-Sep-2011 Intent Leticia Lexy DO, Leticia Comments: nsr no acute chg Radiology - Lumbar SpineBy: On: 24-Sep-2011 Intent Lexy DO, Leticia Lexy DO, Leticia SPECIMEN HANDLING/TRANSPORT On: 27-Jan-2011 Intent ([id number])By: Tanner NAZARIO, [place] CALIX, SPLIT, >3 YEARS, On: 17-Dec-2010 Intent INTRAMUSC ([id number])By: Lexy Comments: pt refused DO, Leticia Lexy [...] Lexy DO, Leticia Lindaon DO, Leticia EKG ([id number])By: Lexy ISAACS, On: 18-May-2007 Intent Leticia Reza [...] MCG/ML Injection Solution Ordered: 25-Feb-2015 Pending Emick, [place] Vitamin B-12 1000 MCG/ML Injection Solution Ordered: 04-Apr-2015 Pending Emick, [place] Vitamin B-12 1000 MCG/ML Injection Solution Ordered: [...] Advance Directives Name Dates Details Immunization Registry [place] - Effective on Effective: 17-Nov-201711/17/2017. Expiration date [...] Note for Urinary problems: [facility] had urine negEncounter Diagnosis: BMI 32.0-32.9,adult, [...] for Tdap vaccination (Renamed from Need for dvodprsblq-simofek-wswcawbgb (Tdap) vaccine, adult/adolescent) End: 04-Apr-2015 15:25 Comprehensive [...]
--- OUTSIDE RECORDS SUMMARY | 2018-04-04 16:08 | XMS RPT_ITS ---
:1955 Author Organization [place] Support Name Relationship Address Phone [employer] Unavailable [address] + [place] [address] AMY MARTINEZ Unavailable Unavailable + [place] [address] TRUE RAMOS Unavailable [address] + [place] [address] [employer] [address] + [place] [address] AMY MARTINEZ Unavailable Unavailable + [place] [address] TRUE RAMOS Unavailable [address] + [place] [address] TRUE RAMOS Unavailable Unavailable + TRUE RAMOS Unavailable Unavailable + [employer] [address]available [address] + [place] [address] AMY MARTINEZ Unavailable Unavailable + [place] [address] TRUE RAMOS Unavailable [address] + [place] [address] [employer] [address] + [place] [address] AMY MARTINEZ Unavailable Unavailable + [place] [address] TRUE RAMOS Unavailable [address] + [place] [address] [employer] [address] + [place] [address] TRUE RAMOS Unavailable [address] + [place] [address] [employer] [address] + [place] [address] TRUE RAMOS Unavailable [address] + [place] [address] [employer] [address] + [place] [address] TRUE RAMOS Unavailable [address] + [place] [address] TRUE RAMOS Unavailable Unavailable + [employer] Unavailable [address] + [place] [address] TRUE RAMOS Unavailable [address] + [place] [address] [employer] [address] + [place] [address] TRUE RAMOS Unavailable [address] [phone] [place] [address] [employer] [address] + [place] [address] TRUE RAMOS Unavailable [address] [phone] [place] [address] [employer] [address] + [place] [address] TRUE RAMOS Unavailable [address] [phone] [place] [address] [employer] [address] + [place] [address] TRUE RAMOS Unavailable [address] [phone] [place] [address] [employer] [address] + [place] [address] TRUE RAMOS Unavailable [address] [phone] [place] [address] [employer] [address] + [place] [address] TRUE RAMOS Unavailable [address] [phone] [place] [address] [employer] [address] + [place] [address] TRUE RAMOS Unavailable [address] [phone] [place] [address] [employer] [address] + [place] [address] TRUE RAMOS Unavailable [address] [phone] [place] [address] TRUE RAMOS Unavailable Unavailable + Care Team Providers Name Role Phone Leticia Pugh Attending Unavailable Isaac, Leticia Referring Unavailable Isaac, Leticia Primary Care Unavailable Jessica Cristobal Unavailable Isaac, Leticia Attending Unavailable Isaac, Leticia Primary Care Unavailable MoodisMarcus longoria Attending Unavailable Moodisparia, Marcus Referring Unavailable Isaac, Leticia Primary Care Unavailable Kiara Cross Attending Unavailable Jayna, Nancy Attending Unavailable Sj Vasquez Attending Unavailable Isaac, Leticia Referring Unavailable Isaac, Leticia Primary Care Unavailable Roof, True H Attending Unavailable Roof, True H Referring Unavailable Isaac, Leticia Primary Care Unavailable Joey Greer Attending Unavailable Joey Greer Referring Unavailable Isaac, Leticia Primary Care Unavailable Zhane Angeles Attending Unavailable Isaac, Leticia Primary Care Unavailable Moodisparia, Marcus Attending Unavailable Gloria Xie NP-C Attending Unavailable Isaac, Leticia Primary Care Unavailable Roof, True H Attending Unavailable Isaac, Leticia Referring Unavailable Roof, True H Attending Unavailable Isaac, Leticia Primary Care Unavailable Roof, True H Attending Unavailable Roof, True H Referring Unavailable Isaac, Leticia Primary Care Unavailable Marcus Villafana Attending Unavailable Roof, True H Referring Unavailable Isaac, Leticia Primary Care Unavailable Roof, True H Consulting Unavailable PercyJoey Attending Unavailable PercyJoey tan Referring Unavailable Isaac, Leticia Primary Care Unavailable JESSICA CRISTOBAL MD Attending Unavailable ISAAC DO, DR. FLORES Primary Care Unavailable JESSICA CRISTOBAL MD Attending Unavailable ISAAC DO, DR. FLORES Primary Care Unavailable JESSICA CRISTOBAL MD Attending Unavailable ISAAC DO, DR. FLORES Primary Care Unavailable JESSICA CRISTOBAL MD Attending Unavailable ISAAC DO, DR. FLORES Primary Care Unavailable GARFIELD PALACIO Attending Unavailable MARCUS VILLAFANA Referring Unavailable GARFIELD PALACIO Attending Unavailable MARCUS VLILAFANA Referring Unavailable ISAAC, MADELINE Primary Care Unavailable Isaac DO, Leticia Attending Unavailable Isaac DO, Leticia Referring Unavailable Isaac DO, Leticia Consulting Unavailable PROBLEMS PROBLEMS DATE TYPE CONDITION / CODE ATTENDING STATUS SOURCE 02/16/2018 Unknown M54.17 - Percy, Active [place] Radiculopathy, [facility] lumbosacral region / Hospital M54.17(ICD-10) Repository 01/14/2018 Active Supraventricular SCHWEIKERT, Active [place] tachycardia / [facility] Other I47.1(ICD-10) [place] Repository 01/14/2018 Active Palpitations / SCHWEIKERT, Active [place] R00.2(ICD-10) [facility] Other [place] Repository 01/14/2018 Admitting Unknown / SCHWEIKERT, Active [facility] diagnosis UNK(Unknown) [facility] Repository 12/14/2017 Unknown R06.09 - Other forms [place], Active [place] of dyspnea / [facility] R06.09(ICD-10) Hospital Repository 12/14/2017 Unknown R07.89 - Other chest [place], Active [place] pain / R07.89(ICD-10) [facility] Repository 12/07/2017 Unknown R00.2 - [facility] [place] / R00.2(ICD-10) [facility] Repository 12/07/2017 Unknown I34.1 - [facility]he[facility] [place] mitral (valve) [facility] prolapse / Hospital I34.1(ICD-10) Repository 09/01/2017 Unknown Z12.31 - Encounter Zhane Angeles Active [place] for screening [facility] mammogram for Hospital malignant neoplasm of Repository breast / Z12.31(ICD-10) 06/14/2017 Unknown E78.5 - [place], Active [place] Hyperlipidemia, [facility] unspecified / Hospital E78.5(ICD-10) Repository 06/14/2017 Unknown Z79.899 - Other long [place], Active [place] term (current) drug [facility] therapy / Hospital Z79.899(ICD-10) Repository PROCEDURES PROCEDURES No Procedure Records FoundRESULTS RESULTS VITAMIN D,25 HYDROXY Collected: 03/07/2018 Status: F Source: [place] 1:32 PM [facility] REPOSITORY TYPE CODE TESTS RESULT OUT OF REFERENCE UNITS RANGE LAB L506.1000 29.95-100.01 ng/mL Low Vitamin D 24.3 25-OH Result Comment: Vitamin D 25(OH) Status Range Deficiency <20 ng/mL (50nmol/L) Insuffciency 20 - 30 ng/mL (50 - 75 nmol/L) Sufficiency 30 - 100 ng/mL (75 - 250 nmol/L) Toxicity >100 ng/mL (>250 nmol/L) Performed By: #### L506.1000 #### [facility] [address] [place], [address] THYROID Observed: 03/07/2018 Status: F Source: [place] 12:56 PM [facility] REPOSITORY [facility] Imaging Services [address] [place] [address] Thyroid MR#: [id number] Acct: [id number] Name: RADHA RAMOS Rep #: [id number] : 1955 F 62 From: Ross Saxena MD PCP: Leticia Pugh DO Status: REG CLI Study: Thyroid Date of Exam: 03/07/18 Exam# [id number] Ordering Dr: Leticia Pugh DO STUDY: THYROID ULTRASOUND REASON FOR EXAM: Female, 62 years old. Known thyroid nodules. TECHNIQUE: Ultrasound evaluation of the thyroid was performed with real-time and static doll-scale imaging. COMPARISON: Comparison is made with prior ultrasound of thyroid dated September 24, 2016. FINDINGS: RIGHT LOBE: The right lobe of the thyroid gland measures 4.9 cm x 1.7 cm x 2.0 cm. There is a heterogeneous echotexture. Once again, multiple hypoechoic nodules are seen measuring less than 1 cm. The largest is in the lower pole and measures 1 cm x 9.3 mm. There is evidence of increased vascularity. LEFT LOBE: The left lobe of the thyroid gland measures 4.2 cm x 1.6 cm x 1.6 cm. There is a heterogeneous echotexture. Multiple hypoechoic solid nodules are seen. The largest is in the lower pole. This measures 7.8 mm x 1 cm. ISTHMUS: The isthmus is enlarged and measures 6.0 mm. The regional lymph nodes are normal. US/Thyroid IMPRESSION: Heterogeneous enlargement of both lobes of the thyroid slightly worse on the right side with multiple small nodules. There has been essentially no change. Electronically Signed: Ross Saxena MD at 14:00 EST Tel [phone], Service support , CC: Leticia Pugh DO Deputy County Attorney: Signed SPINE LUMBAR Observed: 02/16/2018 Status: F Source: [place] (ROUTINE) 12:42 PM [facility] REPOSITORY [facility] Imaging Services [address] [place] [id number] Spine Lumbar (Routine) MR#: [id number] Acct: [id number] Name: RADHA RAMOS Rep #: [id number] : 1955 F 62 From: Victor Manuel Harden PCP: Leticia Pugh DO Status: REG CLI Study: Spine Lumbar (Routine) Date of Exam: 02/16/18 Exam# [id number] Ordering Dr: Joey Greer MD STUDY: MRI LUMBAR SPINE WITHOUT CONTRAST REASON FOR EXAM: Female, 62 years old. LBP Lower Back Pain MRI - Lumbar, radiates into bilat hips, x 9 mons no known injury. TECHNIQUE: Standardized fat and water weighted pulse sequences were obtained in the sagittal and axial planes. COMPARISON: X-ray dated July 21, 2017 FINDINGS: T12-L1: There is minimal disc space narrowing and endplate spondylosis. There is no significant disc herniation, central canal or foraminal stenosis. There is straightening of the normal lumbar lordosis. There is no substantial scoliosis. Normal conus medullaris that terminates at the L1 L1-2: There is minimal disc space narrowing and endplate spondylosis. There is no significant disc herniation, central canal or foraminal stenosis. L2-3: There is mild disc space narrowing and endplate spondylosis. There is no significant disc herniation, central canal or foraminal stenosis. There is mild facet arthropathy L3-4: There is minimal disc space narrowing and endplate spondylosis. There is no significant disc herniation, central canal or foraminal stenosis. There is mild facet arthropathy. L4-5: There is minimal disc space narrowing and endplates spondylosis. There is a mild disc bulge asymmetric to the right with mild right foraminal stenosis. There is moderate facet arthropathy without significant central canal or left foraminal stenosis. L5-S1: There is minimal disc space narrowing and endplates spondylosis. There is moderate facet arthropathy. Normal visualized sacral ala. Normal visualized paraspinous soft tissue structures. MRI/Spine Lumbar (Routine) IMPRESSION: L4/L5: Mild right foraminal stenosis. Multilevel facet arthropathy. Electronically Signed: Victor Manuel Harden MD at 11:27 EST Tel , Service support , CC: Joey Greer; Leticia Pugh DO Deputy County Attorney: Signed A1C Collected: 02/15/2018 Status: F Source: [facility] 12:45 PM [facility] REPOSITORY TYPE CODE TESTS RESULT OUT OF RANGE REFERENCE UNITS LAB A1C(LOINC) 4.5-6.2 % Hgb A1c 6.2 Performed By: #### A1C, CMP, LIPID, GFR #### [place] [address] CMP Collected: 02/15/2018 Status: F Source: [facility] 12:45 [facility] REPOSITORY TYPE CODE TESTS RESULT OUT OF REFERENCE UNITS RANGE LAB GLU(LOINC) 80-115 mg/dL Glucose Level 91 LAB NA(LOINC) 136-145 mmol/L Sodium Level 138 LAB K(LOINC) 3.5-5.1 mmol/L Potassium Level 4.5 LAB CL(LOINC) 98-107 mmol/L Chloride 102 LAB CO2(LOINC) 23-31 mmol/L CO2 28 LAB EBAL(LOINC mEq/L ) Electrolyte Balance 8.0 LAB BUN(LOINC) 7-18 mg/dL BUN 12 LAB CRE(LOINC) 0.55-1.02 mg/dL Creatinine Lvl (s) 0.83 LAB BC(LOINC) 7-27 ratio BUN/Creatinine 14 Ratio LAB CA(LOINC) 8.4-10.2 mg/dL Calcium Lvl 9.2 LAB PROT(LOINC 6.4-8.2 G/dL ) Total Protein 7.3 LAB ALB(LOINC) 3.4-4.8 G/dL Albumin Level 4.1 LAB GLB(LOINC) G/dL Globulin 3.2 LAB AG(LOINC) 1.1-2.5 ratio A/G Ratio 1.3 LAB BILT(LOINC 0.2-1.0 mg/dL ) Bili Total 0.5 LAB AP(LOINC) 40-135 U/L Alk Phos 94 LAB AST(LOINC) 10-40 U/L AST/SGOT 34 LAB ALT(LOINC) 10-35 U/L ALT/SGPT High 51 Performed By: #### A1C, CMP, LIPID, GFR #### [place] [address] LIPID Collected: 02/15/2018 Status: F Source: [facility] 12:45 PM [facility] REPOSITORY TYPE CODE TESTS RESULT OUT OF REFERENCE UNITS RANGE LAB CHOL(LOINC 0-200 mg/dL ) Cholesterol 198 Result Comment: Cholesterol Reference Interval: Less than 200 Desirable 200-239 Borderline high risk 240 and above High risk LAB TRIG(LOINC) 0-150 mg/dL Triglycerides High 203 Result Comment: Triglyceride Reference Interval: Less than 150 Normal 150-199 Borderline high risk 200-499 High risk 500 or higher Very high risk LAB HD(LOINC) 40-60 mg/dL HDL Low Cholesterol 34 LAB LDL(LOINC) 0-130 mg/dL LDL Cholesterol 123 Performed By: #### A1C, CMP, LIPID, GFR #### [address] [address] .GFR Collected: 02/15/2018 Status: F Source: [facility] 12:45 PM [facility] REPOSITORY TYPE CODE TESTS RESULT OUT OF REFERENCE UNITS RANGE LAB GFRAA(LOINC ml/min/1.73 ) sqm GFR 85 [place] Result Comment: GFR Population mean for , Non- Americans Ages 20-29 = 116 mL/min/1.73 sq.m. Ages 30-39 = 107 mL/min/1.73 sq.m. Ages 40-49 = 99 mL/min/1.73 sq.m. Ages 50-59 = 93 mL/min/1.73 sq.m. Ages 60-69 = 85 mL/min/1.73 sq.m. Ages 70+ = 75 mL/min/1.73 sq.m. Chronic Kidney Disease: Less than 60 mL/min/1.73 square meters End Stage Renal Disease: Less than 15 mL/min/1.73 square meters LAB GFRNO(LOINC) ml/min/1.73sqm GFR Non- 70 Result Comment: GFR Population mean for , Non- Americans Ages 20-29 = 116 mL/min/1.73 sq.m. Ages 30-39 = 107 mL/min/1.73 sq.m. Ages 40-49 = 99 mL/min/1.73 sq.m. Ages 50-59 = 93 mL/min/1.73 sq.m. Ages 60-69 = 85 mL/min/1.73 sq.m. Ages 70+ = 75 mL/min/1.73 sq.m. Chronic Kidney Disease: Less than 60 mL/min/1.73 square meters End Stage Renal Disease: Less than 15 mL/min/1.73 square meters Performed By: #### A1C, CMP, LIPID, GFR #### [place] [address] PROGRESS Observed: 01/14/2018 Status: COMPLETED Source: [place] 12:56 PM [facility] OTHER [facility]AMPUS REPOSITORY HNO ID: [id number] Author: Garfield Palacio Service: (none) Author Type: Physician Type: Progress Notes Filed: 01/14/2018 1:26 PM Note Text: PRIMARY CARE PHYSICIAN: Leticia Pugh DO ([facility]) [address] [place] [address] REFERRING PHYSICIAN: Marcus Villafana MD ([facility]) [address] [place] [address] [facility] [id number] Patient Care Team: Leticia Pugh as PCP - General Marcus Villafana as Specialty Social Science Manager (Cardiology) CHIEF COMPLAINT: Evaluation for arrhythmia HISTORY OF PRESENT ILLNESS: Ms. 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 Villafana, for evaluation of arrhythmia. She states that she has had symptoms of arrhythmia for approximately 10 years dating back to about 2007. She recalls experiencing the heart racing. She states this always occurs at night when she is in bed. The episode might last a few minutes to at most a couple hours and is typically gone by the morning. Associated symptoms include palpitations, fluttering in the chest and also chest aching. Over the years a couple of episodes have been sufficiently severe and/or prolonged that she has gone to the local emergency room. She has done this about 2 or 3 times, but each time she is there the episodes have resolved. She has undergone cardiac stress testing a couple of times, and with the most recent stress test in December 2017 she did have an episode of tachycardia with heart rates up to about 240 bpm. She has been treated with oral metoprolol. Before treatment with metoprolol she would experience episodes in clusters occurring once or twice a year and during the cluster occurring intermittently for even up to a few weeks. Since the metoprolol treatment, she has experienced less frequent and less severe episodes, except for when she was given metoprolol from a different chief specialist leed and she started having problems with recurrent symptoms. This resolved when she went back to the previous chief specialist leed of the medication. She states that she is not overly bothered by the episodes because they do not occur very often. Dr. Villafana wanted her to be evaluated by an critical care nurse specialist. She denies chest pain, shortness of breath, orthopnea, edema, PND, lightheadedness or syncope. PAST MEDICAL HISTORY Diagnosis Date - Abnormal finding on thyroid function test - Abscess, abdomen - Atypical chest pain - Cellulitis of skin - Cervical radiculopathy - Diabetes mellitus type II, controlled, with no complications (HCC) - Dyspnea - Gastroparesis - GERD (gastroesophageal reflux disease) - Hypercholesteremia - Impaired fasting glucose - Insomnia, unspecified - Low back pain potentially associated with radiculopathy - Mild carpal tunnel syndrome - MVP (mitral valve prolapse) - Osteoarthritis - Other specified abnormal findings of blood chemistry - Palpitations - Stress reaction - SVT (supraventricular tachycardia) (HCC) - Tinnitus of both ears - Vitamin B12 deficiency - Vitamin D deficiency PAST SURGICAL HISTORY Procedure Laterality Date - APPENDECTOMY - CARDIAC CATH 2002 normal LV systolic fxn; LVEF 60-65%; no substantial CAD - COLONOSCOPY 2006 Dr. Garrido - FOOT SURGERY HX Left - HOLTER 48 HOUR J2 07/07/2017 min HR 57 bpm; max HR 135 bpm (walking); avg HR 79 bpm; sinus rhythm, PACs; symptom rapid HR, fluttering did not correlate with arrhythmia - HYSTERECTOMY HX partial - KNEE SURGERY HX - LAP CHOLECYSTECT/CHOLANGIOGRAPHY 01/02/2011 - STRESS ECHO 12/14/2017 157% MPHR (PSVT occurred with HR up to 250 bpm); exercise duration 8 min 18 seconds, 9 METs; no ischemia - STRESS ECHO 12/2016 LVEF 55%, no ischemia SOCIAL HISTORY Social History Substance Use Topics - Smoking status: Never Smoker - Smokeless tobacco: Never Used - Alcohol use No FAMILY HISTORY Problem Relation Age of Onset - Diabetes Mother - Heart Mother heart attack in her 70s; had coronary stent(s), CABG - Coronary Artery Disease Mother - Hypertension Mother - Hyperlipidemia Mother - Aneurysm Mother AAA s/p repair - Cancer Father malignant brain tumor (glioblastoma) - Aneurysm Brother AAA (not yet needing operation) - Hyperlipidemia Brother - other (smoker) Brother - No Known Problems Brother - Heart Maternal Aunt CABG ALLERGIES: ALLERGIES Allergen Reactions - Isudyjj-Lpd-Ppl Red* Myalgia MEDICATIONS: metFORMIN ER (GLUCOPHAGE XR) 500 mg 24 hr tablet Take 500 mg by mouth once daily. metoprolol tartrate, short acting, (LOPRESSOR) 25 mg tablet Take 25 mg by mouth once daily. oxybutynin (DITROPAN) 5 mg tablet Take 5 mg by mouth once daily. ZETIA 10 mg tablet 1 tablet once daily. VICTOZA 3-JUAN 0.6 mg/0.1 mL (18 mg/3 mL) pnij Inject 1.8 mg subcutaneously once daily. colestipol (COLESTID) 1 gram tablet 2 tablets once daily. aspirin(ASPIRIN LOW DOSE 81 MG TAB, DELAYED RELEASE) Take one(1) tablet daily. REVIEW OF SYSTEMS: PAIN ASSESSMENT: Negative for pain, history of chronic pain, or current treatment for a chronic pain condition. GENERAL: Negative for: Weight loss or gain, Fever or Chills, Weakness and Sleep difficulties. HEENT: Negative for:Headache, Impaired Vision, Hearing Impairment, Nosebleeds, Bleeding Gums and Dentures NECK: Negative for: Swelling, Pain, Stiffness RESPIRATORY: Negative for: Cough, Blood in Sputum, Shortness of breath, Wheezing, Apnea GASTROINTESTINAL: Negative for: Trouble swallowing, Heartburn, Change in bowel habits, Blood in stool, Dark black stools MUSCULOSKELETAL: Positive for: chronic low back pain , Negative for: muscle pain NEUROLOGIC/PSYCHIATRIC: Negative for: Weakness, Paralysis, Numbness, Tingling, Tremor, Nervousness or anxiety, Depressed mood, Memory loss SKIN: Negative for: Rash, Itching HEMATOLOGICAL/LYMPHATIC: Negative for: Easy bruising, Easy bleeding ENDOCRINE: Negative for: Heat or Cold Intolerance, Excessive Sweating, Frequent Urination, Frequent Thirst PHYSICAL EXAMINATION: BP 118/86 Pulse 79 Resp 16 Ht 5' 4.5 (1.64m) Wt 195 lb 9.6 oz (88.7kg) SpO2 97% BMI 33.07 kg/(m2). General: Well appearing, in no acute distress, speaking in complete sentences. Skin: No clubbing, no cyanosis. Eyes: Extra ocular movements intact, Non-icteric sclerae Neck: no jugular venous distention, Lungs: Clear to auscultation bilaterally, no wheezing or rhonchi. Heart: Regular rhythm, PMI not displaced, S1, S2 normal, no S3, no S4, no heaves, no rub and no murmur. Abdomen: Soft, nontender, bowel sounds normal Extremities: No peripheral edema . Grade 2/4 distal pulses bilaterally. Neuro: Oriented to person, place and time, alert, cooperative, gait coordinated. CARDIOVASCULAR MEDICINE TESTING: Electrocardiogram: Sinus rhythm 77 bpm; normal conduction intervals (TX 160 ms, QRS 90 ms); no WPW patterns I have personally reviewed the Electrocardiogram. ASSESSMENT/PLAN: 1. SVT (supraventricular tachycardia) (HCC) - ICD9: 427.89, ICD10: I47.1 2. Palpitations - ICD9: 785.1, ICD10: R00.2 IMPRESSION: Ms. Ramos has experienced intermittent episodes of symptoms suggestive of arrhythmia. Although a recent ambulatory Holter monitor did not correlate symptoms with arrhythmia, she did have a self-limited episode of SVT during a recent stress echocardiogram. A screen shot of the SVT was provided with her medical records. This appears to show a regular narrow complex tachycardia of the long RP variety, with what looks to be atrial activity or P-wave just prior to the following QRS complex. If this is indeed a long RP variety of SVT, it is not typical for the more common forms of SVT such as atrioventricular node reentry tachycardia (AVNRT) or atrioventricular reciprocating tachycardia (AVRT). This would be more consistent with an atrial tachycardia. The leads monitored on this screen shot are not labeled, although it appears to be an inferior lead, and the potential atrial electrogram just preceding the QRS seems to be a positive deflection rather than a negative one, which would not be consistent with retrograde activation, as with an atypical AVNRT. I would like to try to get the entire electrograms and EKGs from this stress test so that I can review the arrhythmia in more detail, particularly if we can find the onset and/or termination of this arrhythmia. I did have a detailed extensive discussion with Ms. Ramos regarding SVT and its management. I did reassure her that given the appearance of the arrhythmia being consistent with SVT and also the normal cardiac stress test and lack of structural heart disease, that any type of cardiac arrhythmia particularly SVT would be almost certainly benign and not at all likely to harm her. Treatment for suppression of the SVT with medication or catheter ablation for elimination of the SVT would only be indicated for control of excessively bothersome symptoms. At this point in time, she states that she is not excessively bothered by the arrhythmia as it is not frequently encountered. She states that the metoprolol seems to be providing adequate control of her symptoms. I did tell her that there is plenty of room to increase the dosage of the metoprolol if necessary. Currently she is only taking 25 mg once daily in the evening, which is a low dose. She takes a dose in the evening because her symptoms typically occur at nighttime when she is in bed. I told her that if her symptoms become more bothersome she could take 50 mg in the evening, and there is room even after that to increase it to 75 mg or even 100 mg without much risk for bothersome side effects. I did have a discussion with Ms. Ramos regarding other treatment options, such as EP study with the goal of curative catheter ablation. There are forms of SVT there are readily cured by catheter ablation at very low risks of serious palpitations. By the EKG her rhythm strip of the tachycardia that was captured during cardiac stress testing, I am suspicious that this is not typical AVNRT and might in fact represent focal atrial tachycardia. A focal atrial tachycardia would be somewhat more challenging to ablate, particularly if it is arising from the left atrium. Again, I would like to see additional EKGs and rhythm strips from the cardiac stress testing to determine the presence of atrial activity and the morphology and vector of the P wave to determine if the arrhythmia is indeed atrial tachycardia and potentially arising from the left atrium. With all of that in mind, I would not press at this time for her to have a catheter ablation procedure, and she is not very inclined to want to pursue an invasive option at this point given that she is not excessively bothered by the SVT. Therefore we agreed that she would continue with current treatment, consider a higher dosage of the beta le if her symptoms are not adequately controlled with the current dosage. She will also keep in touch with me regarding how she is doing much and I told her that we would always be available for her to have questions answered and so forth. I had a detailed discussion with Ms. Ramos regarding my evaluation and recommendations. After our discussion, Ms. Ramos expressed her understanding and I answered all her questions to her apparent satisfaction. PLAN AND RECOMMENDATIONS: 1) Ms. Ramos would like to continue with medical therapy for the SVT 2) If current dosage of metoprolol is ineffective, she can try higher dosages as tolerated 3) I will have my office nurse obtain the full report of the cardiac stress testing including all of the EKGs recorded during the study Return if symptoms worsen or fail to improve. She will continue to follow-up with Dr. Villafana. I am happy to see her back as needed in the future. Garfield Palacio MD 01/14/2018 CNOV Observed: 01/14/2018 Status: COMPLETED Source: [facility] 10:00 AM [facility] OTHER CAMPUS REPOSITORY Office Visit (AGCARDPHRA) RADHA RAMOS ([id number]) 1955 F [facility] Date Time Provider Department 01/14/18 10:00 AM GARFIELD PALACIO During your visit today, we recorded the following information about you: Pulse Respiration Blood pressure Weight 79/minute 16/minute 118/86 88.7 kg Height 1.638 m Leodan Lundy MA 01/14/2018 10:06 AM Signed No cardiac complaints today. ALEX Monzon. Garfield Palacio MD 01/14/2018 11:21 AM Signed Heart Rhythm Problem (Arrhythmia) What is arrhythmia? Arrhythmia is an abnormal rhythm of your heartbeat. Your heart may beat faster or more slowly than normal, or it may skip beats. This can make it harder for the heart to pump enough blood to your body. Another term for arrhythmia is dysrhythmia. What is the cause? An electrical signal in your heart starts each heartbeat, causing the heart muscle to squeeze (contract). Normally, this signal starts in the upper right chamber of the heart (the right atrium) at a place called the sinus node. The signal then follows normal pathways to the upper left atrium and to the lower chambers of the heart (the ventricles). You may have an abnormal heart rhythm if the electrical signals don?t follow the normal pathways or the nerve cells that make the electrical signals don?t work right. Common causes of heart rhythm problems are conditions that damage the heart, like coronary artery disease, heart attack, or heart failure. Problems with the heart valves are another common cause. The heart has 4 valves that open and close with each heartbeat to help blood flow in the right direction through the heart. Some other causes of heart rhythm problems include: -Health problems, such as a stroke, lung disease, diabetes, overactive thyroid gland, or high blood pressure -Abuse of alcohol or drugs, such as cocaine -Some medicines, such as cold medicines -Some natural remedies, such as ephedra, guarana, and licorice Exercise or emotional stress can make your heart beat faster or skip beats, but this is usually not a cause for concern. Sometimes no cause for arrhythmia can be found. What are the different types of arrhythmia? There are many different types of arrhythmia. The heart may beat very slowly (bradycardia) or very fast (tachycardia). The abnormal rhythm may start in either the upper or the lower heart chambers. The 2 main types of arrhythmia are: -Atrial arrhythmia: The electrical signals don?t start in the normal place in the right atrium and don?t travel normally. This can cause part or all of the heart to beat very fast and not in a normal pattern. This affects the ability of the heart to pump blood to the rest of the body. -Ventricular arrhythmia: The abnormal rhythm starts in the lower chambers of the heart. The heart beats in a rhythm that may be irregular or very fast. If severe and untreated, it can be life-threatening. What are the symptoms? Some arrhythmias do not cause any symptoms, or the symptoms may come and go. Your body may simply adjust to the change in rhythm over time. When you do have symptoms, they may include: -Feeling like your heart is beating too fast or too hard or skipping beats or fluttering -Feeling dizzy or lightheaded -Fainting -Feeling tired or weak -Chest pain -Shortness of breath How is it diagnosed? Your healthcare provider will ask about your symptoms and medical history and examine your heart and lungs. Tests may include: -An ECG (also called an EKG), which measures and records your heartbeat. You may have an ECG while you are resting or while you exercise on a treadmill. You may also be asked to wear a small portable ECG monitor for a few days or sometimes a couple weeks. -Blood tests -Chest X-ray -An echocardiogram, which uses sound waves (ultrasound) to show the structures of the heart and how well the heart muscle is pumping -An angiogram, which uses dye injected into a vein and X-rays to look for narrowing or blockages of blood vessels -An electrophysiology study (EPS), which uses tiny wires put into your heart through your veins to look at the electrical pathways in your heart How is it treated? The goal of treatment is to help the heart keep a normal rhythm. The right treatment for you depends on the cause of the arrhythmia, how often you have symptoms, and the severity of your symptoms. If you have no symptoms, or your symptoms are fairly mild, you may not need treatment. If a health problem like a leaky heart valve or heart failure is causing the arrhythmia, treating the health problem may also treat the arrhythmia. Other possible treatments are: -Medicine to control the heart rate -Surgery to: ?Make small cuts or scars in the heart that will block abnormal electrical pathways (cardiac ablation) ?Put an electronic device, such as a pacemaker, under the skin in your chest to help control the heartbeat ?Improve blood flow to the heart if you have coronary artery disease (bypass surgery) How can I take care of myself? Follow your healthcare provider's instructions. Ask your provider: -How and when you will hear your test results -How long it will take to recover -What activities you should avoid and when you can return to your normal activities -How to take care of yourself at home -What symptoms or problems you should watch for and what to do if you have them Make sure you know when you should come back for a checkup. How can I help prevent arrhythmia? The best prevention is to have a heart-healthy lifestyle: -Keep a healthy weight. -Eat a healthy diet. -Stay fit with the right kind of exercise for you. -Decrease stress. -Don?t smoke. -Limit your use of alcohol. Let your healthcare provider know if you have a family history of arrhythmia. If you have heart disease or high blood pressure, follow your healthcare provider's instructions for treatment. Developed by [employer]. Published by [employer]. Copyright ?2014 [employer] and/or one of its subsidiaries. All rights reserved. Garfield Palacio MD 01/14/2018 1:26 PM Signed PRIMARY CARE PHYSICIAN: Leticia Pugh DO ([facility]) [address] [facility] [address] [place] [address] REFERRING PHYSICIAN: Marcus Villafana MD ([facility]) [address] [id number] Patient Care Team: Leticia Pugh as PCP - General Marcus Villafana as Specialty Social Science Manager (Cardiology) CHIEF COMPLAINT: Evaluation for arrhythmia HISTORY OF PRESENT ILLNESS: Ms. 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 Villafana, for evaluation of arrhythmia. She states that she has had symptoms of arrhythmia for approximately 10 years dating back to about 2007. She recalls experiencing the heart racing. She states this always occurs at night when she is in bed. The episode might last a few minutes to at most a couple hours and is typically gone by the morning. Associated symptoms include palpitations, fluttering in the chest and also chest aching. Over the years a couple of episodes have been sufficiently severe and/or prolonged that she has gone to the local emergency room. She has done this about 2 or 3 times, but each time she is there the episodes have resolved. She has undergone cardiac stress testing a couple of times, and with the most recent stress test in December 2017 she did have an episode of tachycardia with heart rates up to about 240 bpm. She has been treated with oral metoprolol. Before treatment with metoprolol she would experience episodes in clusters occurring once or twice a year and during the cluster occurring intermittently for even up to a few weeks. Since the metoprolol treatment, she has experienced less frequent and less severe episodes, except for when she was given metoprolol from a different chief specialist leed and she started having problems with recurrent symptoms. This resolved when she went back to the previous chief specialist leed of the medication. She states that she is not overly bothered by the episodes because they do not occur very often. Dr. Villafana wanted her to be evaluated by an critical care nurse specialist. She denies chest pain, shortness of breath, orthopnea, edema, PND, lightheadedness or syncope. PAST MEDICAL HISTORY Diagnosis Date - Abnormal finding on thyroid function test - Abscess, abdomen - Atypical chest pain - Cellulitis of skin - Cervical radiculopathy - Diabetes mellitus type II, controlled, with no complications (HCC) - Dyspnea - Gastroparesis - GERD (gastroesophageal reflux disease) - Hypercholesteremia - Impaired fasting glucose - Insomnia, unspecified - Low back pain potentially associated with radiculopathy - Mild carpal tunnel syndrome - MVP (mitral valve prolapse) - Osteoarthritis - Other specified abnormal findings of blood chemistry - Palpitations - Stress reaction - SVT (supraventricular tachycardia) (HCC) - Tinnitus of both ears - Vitamin B12 deficiency - Vitamin D deficiency PAST SURGICAL HISTORY Procedure Laterality Date - APPENDECTOMY - CARDIAC CATH 2002 normal LV systolic fxn; LVEF 60-65%; no substantial CAD - COLONOSCOPY 2006 Dr. Garrido - FOOT SURGERY HX Left - HOLTER 48 HOUR J2 07/07/2017 min HR 57 bpm; max HR 135 bpm (walking); avg HR 79 bpm; sinus rhythm, PACs; symptom rapid HR, fluttering did not correlate with arrhythmia - HYSTERECTOMY HX partial - KNEE SURGERY HX - LAP CHOLECYSTECT/CHOLANGIOGRAPHY 01/02/2011 - STRESS ECHO 12/14/2017 157% MPHR (PSVT occurred with HR up to 250 bpm); exercise duration 8 min 18 seconds, 9 METs; no ischemia - STRESS ECHO 12/2016 LVEF 55%, no ischemia SOCIAL HISTORY Social History Substance Use Topics - Smoking status: Never Smoker - Smokeless tobacco: Never Used - Alcohol use No FAMILY HISTORY Problem Relation Age of Onset - Diabetes Mother - Heart Mother heart attack in her 70s; had coronary stent(s), CABG - Coronary Artery Disease Mother - Hypertension Mother - Hyperlipidemia Mother - Aneurysm Mother AAA s/p repair - Cancer Father malignant brain tumor (glioblastoma) - Aneurysm Brother AAA (not yet needing operation) - Hyperlipidemia Brother - other (smoker) Brother - No Known Problems Brother - Heart Maternal Aunt CABG ALLERGIES: ALLERGIES Allergen Reactions - Dlziuqv-Fws-Dbo Red* Myalgia MEDICATIONS: metFORMIN ER (GLUCOPHAGE XR) 500 mg 24 hr tablet Take 500 mg by mouth once daily. metoprolol tartrate, short acting, (LOPRESSOR) 25 mg tablet Take 25 mg by mouth once daily. oxybutynin (DITROPAN) 5 mg tablet Take 5 mg by mouth once daily. ZETIA 10 mg tablet 1 tablet once daily. VICTOZA 3-JUAN 0.6 mg/0.1 mL (18 mg/3 mL) pnij Inject 1.8 mg subcutaneously once daily. colestipol (COLESTID) 1 gram tablet 2 tablets once daily. aspirin(ASPIRIN LOW DOSE 81 MG TAB, DELAYED RELEASE) Take one(1) tablet daily. REVIEW OF SYSTEMS: PAIN ASSESSMENT: Negative for pain, history of chronic pain, or current treatment for a chronic pain condition. GENERAL: Negative for: Weight loss or gain, Fever or Chills, Weakness and Sleep difficulties. HEENT: Negative for:Headache, Impaired Vision, Hearing Impairment, Nosebleeds, Bleeding Gums and Dentures NECK: Negative for: Swelling, Pain, Stiffness RESPIRATORY: Negative for: Cough, Blood in Sputum, Shortness of breath, Wheezing, Apnea GASTROINTESTINAL: Negative for: Trouble swallowing, Heartburn, Change in bowel habits, Blood in stool, Dark black stools MUSCULOSKELETAL: Positive for: chronic low back pain , Negative for: muscle pain NEUROLOGIC/PSYCHIATRIC: Negative for: Weakness, Paralysis, Numbness, Tingling, Tremor, Nervousness or anxiety, Depressed mood, Memory loss SKIN: Negative for: Rash, Itching HEMATOLOGICAL/LYMPHATIC: Negative for: Easy bruising, Easy bleeding ENDOCRINE: Negative for: Heat or Cold Intolerance, Excessive Sweating, Frequent Urination, Frequent Thirst PHYSICAL EXAMINATION: BP 118/86 Pulse 79 Resp 16 Ht 5' 4.5 (1.64m) Wt 195 lb 9.6 oz (88.7kg) SpO2 97% BMI 33.07 kg/(m2). General: Well appearing, in no acute distress, speaking in complete sentences. Skin: No clubbing, no cyanosis. Eyes: Extra ocular movements intact, Non-icteric sclerae Neck: no jugular venous distention, Lungs: Clear to auscultation bilaterally, no wheezing or rhonchi. Heart: Regular rhythm, PMI not displaced, S1, S2 normal, no S3, no S4, no heaves, no rub and no murmur. Abdomen: Soft, nontender, bowel sounds normal Extremities: No peripheral edema . Grade 2/4 distal pulses bilaterally. Neuro: Oriented to person, place and time, alert, cooperative, gait coordinated. CARDIOVASCULAR MEDICINE TESTING: Electrocardiogram: Sinus rhythm 77 bpm; normal conduction intervals (TX 160 ms, QRS 90 ms); no WPW patterns I have personally reviewed the Electrocardiogram. ASSESSMENT/PLAN: 1. SVT (supraventricular tachycardia) (HCC) - ICD9: 427.89, ICD10: I47.1 2. Palpitations - ICD9: 785.1, ICD10: R00.2 IMPRESSION: Ms. Ramos has experienced intermittent episodes of symptoms suggestive of arrhythmia. Although a recent ambulatory Holter monitor did not correlate symptoms with arrhythmia, she did have a self-limited episode of SVT during a recent stress echocardiogram. A screen shot of the SVT was provided with her medical records. This appears to show a regular narrow complex tachycardia of the long RP variety, with what looks to be atrial activity or P-wave just prior to the following QRS complex. If this is indeed a long RP variety of SVT, it is not typical for the more common forms of SVT such as atrioventricular node reentry tachycardia (AVNRT) or atrioventricular reciprocating tachycardia (AVRT). This would be more consistent with an atrial tachycardia. The leads monitored on this screen shot are not labeled, although it appears to be an inferior lead, and the potential atrial electrogram just preceding the QRS seems to be a positive deflection rather than a negative one, which would not be consistent with retrograde activation, as with an atypical AVNRT. I would like to try to get the entire electrograms and EKGs from this stress test so that I can review the arrhythmia in more detail, particularly if we can find the onset and/or termination of this arrhythmia. I did have a detailed extensive discussion with Ms. Ramos regarding SVT and its management. I did reassure her that given the appearance of the arrhythmia being consistent with SVT and also the normal cardiac stress test and lack of structural heart disease, that any type of cardiac arrhythmia particularly SVT would be almost certainly benign and not at all likely to harm her. Treatment for suppression of the SVT with medication or catheter ablation for elimination of the SVT would only be indicated for control of excessively bothersome symptoms. At this point in time, she states that she is not excessively bothered by the arrhythmia as it is not frequently encountered. She states that the metoprolol seems to be providing adequate control of her symptoms. I did tell her that there is plenty of room to increase the dosage of the metoprolol if necessary. Currently she is only taking 25 mg once daily in the evening, which is a low dose. She takes a dose in the evening because her symptoms typically occur at nighttime when she is in bed. I told her that if her symptoms become more bothersome she could take 50 mg in the evening, and there is room even after that to increase it to 75 mg or even 100 mg without much risk for bothersome side effects. I did have a discussion with Ms. Ramos regarding other treatment options, such as EP study with the goal of curative catheter ablation. There are forms of SVT there are readily cured by catheter ablation at very low risks of serious palpitations. By the EKG her rhythm strip of the tachycardia that was captured during cardiac stress testing, I am suspicious that this is not typical AVNRT and might in fact represent focal atrial tachycardia. A focal atrial tachycardia would be somewhat more challenging to ablate, particularly if it is arising from the left atrium. Again, I would like to see additional EKGs and rhythm strips from the cardiac stress testing to determine the presence of atrial activity and the morphology and vector of the P wave to determine if the arrhythmia is indeed atrial tachycardia and potentially arising from the left atrium. With all of that in mind, I would not press at this time for her to have a catheter ablation procedure, and she is not very inclined to want to pursue an invasive option at this point given that she is not excessively bothered by the SVT. Therefore we agreed that she would continue with current treatment, consider a higher dosage of the beta le if her symptoms are not adequately controlled with the current dosage. She will also keep in touch with me regarding how she is doing much and I told her that we would always be available for her to have questions answered and so forth. I had a detailed discussion with Ms. Ramos regarding my evaluation and recommendations. After our discussion, Ms. Ramos expressed her understanding and I answered all her questions to her apparent satisfaction. PLAN AND RECOMMENDATIONS: 1) Ms. Ramos would like to continue with medical therapy for the SVT 2) If current dosage of metoprolol is ineffective, she can try higher dosages as tolerated 3) I will have my office nurse obtain the full report of the cardiac stress testing including all of the EKGs recorded during the study Return if symptoms worsen or fail to improve. She will continue to follow-up with Dr. Villafana. I am happy to see her back as needed in the future. Garfield Palacio MD 01/14/2018 Referring Provider: MARCUS VILLAFANA [[id number]] Allergies As of Date: 01/14/2018 Noted Allergy Reaction [id number] REDUCTASE INHIBIT*12/29/2017 17 - Myalgia Date Reviewed: 01/14/2018 Reviewed by: Garfield Palacio - Fully Assessed Reason for Visit: New Patient [172] Visit Diagnoses:SVT (supraventricular tachycardia) (HCC) [I47.1] Palpitations [R00.2] Order(s):EKG WITH INTERPRETATION [[id number]] Order #: [id number]: 1 Prescriptions as of 01/14/2018 Sig: METFORMIN ER 500 MG TABLET,EX* Take 500 mg by mouth once ant* METOPROLOL TARTRATE 25 MG TAB* Take 25 mg by mouth once luzmaria* OXYBUTYNIN CHLORIDE 5 MG TABL* Take 5 mg by mouth once daily. ZETIA 10 MG TABLET 1 tablet once daily. VICTOZA 3-JUAN 0.6 MG/0.1 ML (* Inject 1.8 mg subcutaneously * COLESTIPOL 1 GRAM TABLET 2 tablets once daily. ASPIRIN LOW DOSE 81 MG TABLET* Take one(1) tablet daily. Medication notes this encounter SULFAMETHOXAZOLE 800 MG-TRIMETHOPRIM 160 MG TABLET >> Leodan Lundy JEANMARIE 01/14/2018 10:03 AM >> LEODAN LUNDY MA WedJan 14, 2018 10:03 AM Not taking OXYCODONE-ACETAMINOPHEN 5 MG-325 MG TABLET >> Leodan NikkieJEANMARIE 01/14/2018 10:03 AM >> LEODAN LUNDY MA WedJan 14, 2018 10:03 AM Not taking SITAGLIPTIN 100 MG TABLET >> Leodanbrian Lundy MA 01/14/2018 10:03 AM >> LEODAN LUNDY MA WedJan 14, 2018 10:03 AM Not taking Problem List As Of Date 01/14/2018 Noted Resolved Hyperlipidemia [E78.5] INVALID FOR* Dysmetabolic Syndrome [E88.81] INVALID FOR* Hypertension [I10] INVALID FOR* Goiter [E04.9] INVALID FOR* Obesity, Class I, BMI 30-34.9 [E66.9] INVALID FOR* SVT (supraventricular tachycardia) (HCC) [I47.1] Palpitations [R00.2] Other instructions from your clinician: Heart Rhythm Problem (Arrhythmia) What is arrhythmia? Arrhythmia is an abnormal rhythm of your heartbeat. Your heart may beat faster or more slowly than normal, or it may skip beats. This can make it harder for the heart to pump enough blood to your body. Another term for arrhythmia is dysrhythmia. What is the cause? An electrical signal in your heart starts each heartbeat, causing the heart muscle to squeeze (contract). Normally, this signal starts in the upper right chamber of the heart (the right atrium) at a place called the sinus node. The signal then follows normal pathways to the upper left atrium and to the lower chambers of the heart (the ventricles). You may have an abnormal heart rhythm if the electrical signals don?t follow the normal pathways or the nerve cells that make the electrical signals don?t work right. Common causes of heart rhythm problems are conditions that damage the heart, like coronary artery disease, heart attack, or heart failure. Problems with the heart valves are another common cause. The heart has 4 valves that open and close with each heartbeat to help blood flow in the right direction through the heart. Some other causes of heart rhythm problems include: -Health problems, such as a stroke, lung disease, diabetes, overactive thyroid gland, or high blood pressure -Abuse of alcohol or drugs, such as cocaine -Some medicines, such as cold medicines -Some natural remedies, such as ephedra, guarana, and licorice Exercise or emotional stress can make your heart beat faster or skip beats, but this is usually not a cause for concern. Sometimes no cause for arrhythmia can be found. What are the different types of arrhythmia? There are many different types of arrhythmia. The heart may beat very slowly (bradycardia) or very fast (tachycardia). The abnormal rhythm may start in either the upper or the lower heart chambers. The 2 main types of arrhythmia are: -Atrial arrhythmia: The electrical signals don?t start in the normal place in the right atrium and don?t travel normally. This can cause part or all of the heart to beat very fast and not in a normal pattern. This affects the ability of the heart to pump blood to the rest of the body. -Ventricular arrhythmia: The abnormal rhythm starts in the lower chambers of the heart. The heart beats in a rhythm that may be irregular or very fast. If severe and untreated, it can be life-threatening. What are the symptoms? Some arrhythmias do not cause any symptoms, or the symptoms may come and go. Your body may simply adjust to the change in rhythm over time. When you do have symptoms, they may include: -Feeling like your heart is beating too fast or too hard or skipping beats or fluttering -Feeling dizzy or lightheaded -Fainting -Feeling tired or weak -Chest pain -Shortness of breath How is it diagnosed? Your healthcare provider will ask about your symptoms and medical history and examine your heart and lungs. Tests may include: -An ECG (also called an EKG), which measures and records your heartbeat. You may have an ECG while you are resting or while you exercise on a treadmill. You may also be asked to wear a small portable ECG monitor for a few days or sometimes a couple weeks. -Blood tests -Chest X-ray -An echocardiogram, which uses sound waves (ultrasound) to show the structures of the heart and how well the heart muscle is pumping -An angiogram, which uses dye injected into a vein and X-rays to look for narrowing or blockages of blood vessels -An electrophysiology study (EPS), which uses tiny wires put into your heart through your veins to look at the electrical pathways in your heart How is it treated? The goal of treatment is to help the heart keep a normal rhythm. The right treatment for you depends on the cause of the arrhythmia, how often you have symptoms, and the severity of your symptoms. If you have no symptoms, or your symptoms are fairly mild, you may not need treatment. If a health problem like a leaky heart valve or heart failure is causing the arrhythmia, treating the health problem may also treat the arrhythmia. Other possible treatments are: -Medicine to control the heart rate -Surgery to: ?Make small cuts or scars in the heart that will block abnormal electrical pathways (cardiac ablation) ?Put an electronic device, such as a pacemaker, under the skin in your chest to help control the heartbeat ?Improve blood flow to the heart if you have coronary artery disease (bypass surgery) How can I take care of myself? Follow your healthcare provider's instructions. Ask your provider: -How and when you will hear your test results -How long it will take to recover -What activities you should avoid and when you can return to your normal activities -How to take care of yourself at home -What symptoms or problems you should watch for and what to do if you have them Make sure you know when you should come back for a checkup. How can I help prevent arrhythmia? The best prevention is to have a heart-healthy lifestyle: -Keep a healthy weight. -Eat a healthy diet. -Stay fit with the right kind of exercise for you. -Decrease stress. -Don?t smoke. -Limit your use of alcohol. Let your healthcare provider know if you have a family history of arrhythmia. If you have heart disease or high blood pressure, follow your healthcare provider's instructions for treatment. Developed by [employer]. Published by [employer]. Copyright ?2014 [employer] and/or one of its subsidiaries. All rights reserved. Visit Notes: >> Leodan Lundy Fri Jan 14, 2018 10:05 AM Status: Signed No cardiac complaints today. ALEX Monzon. Medications Discontinued During This Encounter sitagliptin 100 mg tablet 30 t* 11 07/21/2011 01/14/2018 Route: ORAL Sig: Take 1 tablet by mouth once daily. Disc: Course of therapy completed Cosign accepted by KIM BRADLEY MD[[id number]] on 08/05/2011 6:21 PM oxyCODONE-acetaminophen (PERCOCET) 5* 30 t* 0 12/20/2015 01/14/2018 Class: Print RX Route: ORAL Sig: Take 1 tablet by mouth every 4 hours as needed. Disc: Course of therapy completed sulfamethoxazole-trimethoprim (BACTR* 12/12/2015 01/14/2018 Class: Historical Med Si tablet twice daily. Disc: Course of therapy completed Disposition: Return if symptoms worsen or fail to improve. Follow-up and Disposition History Recorded Letter Text Encounter Status:Closed by GARFIELD PALACIO MD on 01/14/18 TSH Collected: 01/11/2018 Status: F Source: [facility] 12:43 [facility] REPOSITORY TYPE CODE TESTS RESULT OUT OF RANGE REFERENCE UNITS LAB TSH(LOINC) 0.36-3.74 mcIU/mL TSH 3.22 Performed By: #### TSH, FT4, FT3 #### [place] [address] FT4 Collected: 01/11/2018 Status: F Source: [facility] 12:43 [facility] REPOSITORY TYPE CODE TESTS RESULT OUT OF RANGE REFERENCE UNITS LAB FT4(LOINC) 0.76-1.46 ng/dL Free T4 0.84 Performed By: #### TSH, FT4, FT3 #### [address] [address] FT3 Collected: 01/11/2018 Status: F Source: [facility] 12:43 PM [facility] REPOSITORY TYPE CODE TESTS RESULT OUT OF RANGE REFERENCE UNITS LAB FT3(LOINC) 2.30-4.00 pg/mL Free T3 2.86 Performed By: #### TSH, FT4, FT3 #### [place] [address] CNPN Observed: 12/28/2017 Status: COMPLETED Source: [place] 12:00 AM CLINIC OTHER CAMPUS REPOSITORY Telephone (AGCARDPOB) RADHA RAMOS ([id number]) 1955 F IPA Date Time Provider Department 12/28/17 GARFIELD PALACIO During your visit today, we recorded the following information about you: Sj Cunningham 12/28/2017 3:37 PM Signed Referral received from Dr. Harrison's office. Pt has been scheduled for 12/31/2017 @ 3:00p with Dr. Palacio. LM for pt to call back no later than 12/30/17 to confirm. 12/28/2017 15:33:48 Sj Cunningham 12/28/2017 3:39 PM Signed Spoke with patient she is unable to make the 12/31/17 appointment and is agreeable to come in on 01/14/18 @ 10:00am to see Dr. Palacio. Sj Cunningham Allergies As of Date: 12/28/2017 (No Known Allergies) Date Reviewed: 12/22/2015 Reviewed by: Kaye Tomas - Fully Assessed Reason for Visit: Future Appointment [256] Cmt: appointment Reason For Visit History Recorded Prescriptions as of 12/28/2017 Sig: SULFAMETHOXAZOLE 800 MG-TRIME* 1 tablet twice daily. ZETIA 10 MG TABLET 1 tablet once daily. VICTOZA 3-JUAN 0.6 MG/0.1 ML (* once daily. COLESTIPOL 1 GRAM TABLET 2 tablets once daily. OXYCODONE-ACETAMINOPHEN 5 MG-* Take 1 tablet by mouth every * SITAGLIPTIN 100 MG TABLET Take 1 tablet by mouth once d* ASPIRIN LOW DOSE 81 MG TABLET* Take one(1) tablet daily. Problem List As Of Date 12/28/2017 Noted Resolved Hyperlipidemia [E78.5] INVALID FOR* Dysmetabolic Syndrome [E88.81] INVALID FOR* Hypertension [I10] INVALID FOR* Goiter [E04.9] INVALID FOR* Encounter Status:Closed by SJ CUNNINGHAM on 12/28/17 STRESS TEST ECHO W/ Observed: 12/14/2017 Status: F Source: [place] CONTRAST 3:21 PM [facility] REPOSITORY [facility] Cardiovascular Services [address] [place], [place] [address] [address] Stress Test Echo W/Contrast MR#: [id number] Acct: [id number] Name: RADHA RAMOS Rep #: [id number] : 1955 62 From: Marcus Villafana MD Primary Care: Isaac Leticia Status: REG CLI Ordering Dr: True Ngo CLEANER SIGNS-C Sex: F C Stress Results Protocol: Stress Echocardiogram Maximum Predicted HR: 159 bpm Target HR: 135 bpm% Maximum Pr edicted HR: 157 % DurationHeart Rate Stage (mm:ss) (bpm) BPCom ment BASELINE 78 142/80 DILUTED DEFINITY 4 ML USED CHELA PROTOCOL- STAGE 1 3:00 13 1 160/84 CHELA PROTOCOL- STAGE 2 3:00 15 1 172/84 CHELA PROTOCOL- STAGE 3 2:18 25 0 / SVT , SOB RECOVERY 110 144/7 0 Stress Duration: 8:18 mm:ss Maximum Stress HR: 250 bpmM ETS: 9 Baseline Echocardiogram Findings Stress Echo Wall motion Data Resting WMIntermediate WMStress WM Resting Wall Motion Wall Motion Stress All segments Normal. All segments Hyperkinetic. Ejection Fraction 60 %. Ejection Fraction 75 %. Stress Results Heart rate response: appropriate Blood pressure response: resting hypertension - appropriate response Arrhythmias: a) exercise related intermittent episodes of PSVT (ventricular rates approximately 240 bpm) with spontaneous resolution towards baseline b) occasional PVCs during exercise / recovery c) rare ventricular couplets / triplets during recovery Functional capacity: good Stopped secndary to: dyspnea. EKG Data Baseline ECG: NSR. Exercise ECG: no obvious ECG changes. Symptoms with Stress No c/o chest discomfort during exercise / recovery. Interpretation Summary Negative (adequate) Stress Echocardiogram Negative (adequate) ECG ETT Cardiac dysrhythmias as noted above Ordering Physician: True Ngo Referring Physician: True Ngo Performed By: Millie Nieto, RDCS, RVT 12/14/17 1521 Date Marcus Villafana MD CC: CLEANER SIGNS True Malik Huber; Leticia Pugh DO Date Dictated: 12/14/17 1343 Date Transcribed: 12/14/17 1521 Deputy County Attorney: Signed PT D/C SUMMARY (1) Observed: 12/10/2017 Status: F Source: [place] 7:58 AM [facility] REPOSITORY [facility] [address] [place], [place] [address] Fax REHABILITATION SERVICES DISCHARGE SUMMARY MR#: [id number] Acct: [id number] Name: RADHA RAMOS Rep #: [id number] : 1955 62 From: Morgan Barnes PT, Cert. MDT, OCS Referring Dr.: Gloria Xie Status: REG RCR Insurance: [employer] SELF PAY INSURANCE HP - PT [...] - Overall Improvement % Improvement: 65 - Objective Objective/Function: POSTURE: mild foward posture. GAIT: normal aston. PALAPTION: unremarkable. NEURO: denies parathesia/tingling,reflexes L3-4,L4-5 2/3. MMT: 5/5. LUMBAR ROM: flexion WNL ,extension MIN loss,side glides min loss. -SLR - Goals Goal 1:: Patient to be Independant with HEP Goal Progress: Goal Met Goal 2:: Patient to be Independant with posture/body mechanics to decrease back pain Goal Progress: Goal Met Goal 3:: Patient to decrease lumbar pain by 50% or greater to improve function with ADL'S Goal Progress: Goal Met Goal 4:: Patient to improve lumbar ROM with less pain for function of recovery Goal Progress: Goal Met Goal [...] please feel free to call me at [phone]. Thank you for the referral of this patient. Sincerely, Morgan Barnes PT, <Electronically signed by Morgan Barnes PT, Cert. T, OCS> 12/10/17 0758 CC: Leticia KNAPP Prebish JOSSELINE Signed CARDIOLOGY VISIT Observed: 12/07/2017 Status: F Source: [place] REPORT 9:58 AM [facility] REPOSITORY [facility] [address] [place] [address] OFFICE VISIT Date of Service: 12/07/17 MR#: [id number] Acct: [id number] Name: RADHA RAMOS Rep #: [id number] : 1955 Provider: DEMETRICE Ngo Age/Sex: 62/F [facility] [facility] Status: Signed [facility] HPI Details: RADHA RAMOS, is a 62 F who presents to the office today for a cardiovascular outpatient follow-up. She has a history of atypical chest discomfort, palpitations, hyperlipidemia and diabetes. She states over the week she notices changing chest pressure that radiates to her bilateral upper biceps and bilateral jaw. She states with the chest pressure she notices she has to take an extra breath. It worse when lying down and improved when sitting up. The pain appears to be increasing in duration. With the chest pain she feels nauseated and diaphoretic. At times she rates the pain 8-9/10. She states SOB when going up steps this week. She states her exercise capacity and energy level has decreased over the last week. Her palpitations have not worsened or changed. She denies lightheadedness, dizziness, near syncopal or syncopal episodes. Pt denies edema or claudication issues. Pt. denies PND, fever, chills, blood in urine, blood in stool, or myalgia. She denies any recent illness. She states a month ago she was stung by a bee below her left eye. Her thryoid medication has been adjusted recently and she states with this adjustment her appetite has increased and her hemoglobin A1C has increased. Intake Vital Signs12/07/17 Height 5 ft 5 in 12/07/17 Weight: 192 lb 12/07/17 Body Mass Index (BMI) 31.9 12/07/17 Blood Pressure 130/76 H Intake Visit Reasons: PT REQ / NOT FEELING WELL Allergies pravastatin [From Pravachol] Adverse Reaction (Severe, Verified 06/24/17 14:32) Myalgias atorvastatin [From Lipitor] Adverse Reaction (Intermediate, Verified 06/24/17 14:32) Muscle pain simvastatin [From Zocor] Adverse Reaction (Intermediate, Verified 06/24/17 14:32) Myalgias Medications Cyanocobalamin [Vitamin B12] 100 mcg SC UD 09/24/14 [History Confirmed 06/24/17] Ezetimibe [Zetia] 10 mg PO DAILY 09/24/14 [History Confirmed 06/24/17] Liraglutide [Victoza 2-Juan] 0.1 - 8 mg SQ QHS 09/24/14 [History Confirmed 06/24/17] Aspirin 81 mg PO DAILY 12/23/15 [History Confirmed 06/24/17] cholecalciferol (vitamin D3) 2,000 unit tablet See Rx Instructions PO QDAY 06/22/17 [History Confirmed 06/24/17] oxybutynin chloride ER 5 mg tablet,extended release 24 hr 5 mg PO QDAY 06/24/17 [History Confirmed 06/24/17] metoprolol tartrate 25 mg tablet See Rx Instructions PO BID tab 07/02/17 [History] colestipol 1 gram tablet 2 [...] Const Const: Positive for fatigue and excessive sweating; negative for weakness, body ache, fever(s) or chills ENT ENT: Negative for dizziness Cardio Chest Pain: Yes Palpitations: Yes Edema: None Muscle aches with walking: None Resp Respiratory: Positive for SOB with activity and SOB orthopnea\SOB lying down; negative for SOB at rest, paroxysmal nocturnal dyspnea, Cough or chest congestion GI GI: Positive for nausea; negative black,tarry stools, bright, red blood in stools or vomiting blood/hematemesis : Negative for hematuria or frequent nighttime urination/ nocturia Musc Musc: Negative for muscle aches/ myalgia Skin Skin: Negative non-healing lesions or rash Neuro Neuro: Negative for weakness, dizziness, lightheadedness, near syncope, syncope or orthostatic symptoms Endo Endo: Positive for fatigue and excessive sweating Allergy Allergy/Immunology: Negative for rash Cardiology Exam Const Appearance: cooperative, no acute distress, well developed and healthy appearing; negative acute distress Orientation: alert, awake and oriented x3 Head Head: normocephalic, atraumatic and normal to inspection Ears: hearing grossly normal bilaterally Nose: external nose normal Face and Sinus: face symmetric Mouth: moist mucous membranes Eyes General: appearance normal, both eyes and all related structures Conjunctivae: conjunctivae normal Pupils: PERRL EOM: EOM intact bilaterally Neck Neck: normal visual inspection, no lymphadenopathy and no JVD Carotids: Negative bruit Neck Mass: Negative Neck mass Chest Chest inspection: normal inspection of the chest, symmetric chest movement and normal respiratory effort Auscultation: Bilateral: Clear to Auscultation Cardio Palpation: [...] abnormalities noted, and structurally normal valves. Heart catheterization from February 2003 showed elevation of LVEDP, estimated ejection fraction of 60-65%, left main as angiographically normal, LAD as angiographically normal, LCx that was a small nondominant vessel and angiographically normal, RCA that was a large dominant vessel and angiographically normal, and mild mitral valve prolapse with trace mitral valve regurgitation. Assessment AND Plan 1. Atypical chest pain R07.89 Plan She does have a history of atypical chest pain in the past, however, her chest pain this past week she states is different and is associated with multiple secondary symptoms and history of diabetes. She will undergo laboratory work, that includes a troponin to evaluated CAD. She will also undergo a stress echocardiogram for further evaluation. Depending on her laboratory workup further recommendation will be made. Her ECG in office showed sinus rhythm at a rate of 79 bpm with non-specific t-wave abnormality and consideration for old anterior infarct. Orders Orders: 2. Dyspnea on exertion R06.09 Plan She states over the last week has had increasing dyspnea on exertion most notably when going up steps. She will undergo laboratory work, which includes BNP to evaluate fluid component. On physical exam she does not appear [...] continue with current beta le and we will continue to monitor. Orders Orders: 4. Mixed [...] will wait for her laboratory results for further recommendation she will continue with current medications. Plan Detail Other Orders Orders: Additional Comments Thank you for allowing us to participate in the patient's plan of care, if you have any questions please do not hesitate to call. This note was generated using a voice recognition system and there may be incorrect words, spelling, or punctuation that were not noted upon reviewing the office note prior to saving. Coding Level of Care Code Off vis,est,level 4 Diagnoses Atypical chest pain R07.89 Dyspnea on exertion R06.09 Palpitations R00.2 Mixed hyperlipidemia E78.2 Coding Level of Care Code Off vis,est,level 4 Diagnoses Atypical chest pain R07.89 Dyspnea on exertion R06.09 Palpitations R00.2 Mixed hyperlipidemia E78.2 12/07/17 0958 <Electronically signed by True KNAPP> Date True KNAPP Cosigner Signature: Date (if applicable) CC: Leticia Pugh DO TROPONIN-I Collected: 12/07/2017 Status: F Source: [place] 9:54 AM [facility] REPOSITORY Order Comment: 'TROP' Serial specimen #1, #2, #3, or #4: 1 TYPE CODE TESTS RESULT OUT OF RANGE REFERENCE UNITS LAB L501.4010 <0.045 ng/mL Normal < 0.015 TROPONIN-I Result Comment: TROPONIN-I EXPECTED VALUES <0.045 Negative 0.045 - 0.590 Consistent with Cardiac Damage > OR = 0.600 Critical Value Not every elevated troponin is indicative of MS. These values should be used with clinical judgement in examining the patient's clinical picture for diagnosis. To establish a diagnosis of MS versus myocardial injury, there must be a demonstrated rise and/or fall in the troponin values, in addition to ischemic symptoms, EKG changes, new regional wall motion abnormality, and/or angiographical evidence. PLEASE NOTE: REFERENCE RANGES EDITED 17 Performed By: #### L501.4010 #### [facility] [address] [place], [address] BNP,B-TYPE NATRIURETIC Collected: 12/07/2017 Status: F Source: [place] 9:54 AM [facility] REPOSITORY TYPE CODE TESTS RESULT OUT OF RANGE REFERENCE UNITS LAB L503.6620 0-100 pg/mL Normal B-TYPE 38.2 CAMILO PEP Performed By: #### L503.6620 #### [facility] [address] [place], [address] 12 LEAD EKG PERFORMED Observed: 12/07/2017 Status: F Source: [place] [facility] 9:12 AM [facility] REPOSITORY [facility] [address] [place] [address] 12 Lead EKG performed by [facility] 12/07/17 0911 MR#: [id number] Acct: [id number] Name: RADHA RAMOS Rep #: [id number] : 1955 62 From: True Ngo CLEANER SIGNS-C Attending Dr: True Ngo NP Status: DEP AMB Ordering Dr: True Ngo CLEANER SIGNS-C Date: 12/07/17 Location: [facility] Sex: F C Admitted: BMS/12 Lead EKG performed by [facility] ECG Report Interpretation Sinus Rhythm Poor R wave progressionElectronically signed on 12/08/2017 at 17:44 by Marcus Villafana Software Version [id number] 12/08/17 1746 Date True KNAPP CC: Leticia Pugh DO Date Dictated: 12/07/17910 Date Transcribed: 12/07/17910 Deputy County Attorney: ISABEL Signed A1C Collected: 11/10/2017 Status: F Source: [facility] 12:48 PM [facility] REPOSITORY TYPE CODE TESTS RESULT OUT OF RANGE REFERENCE UNITS LAB A1C(LOINC) 4.5-6.2 % High Hgb A1c 7.4 Performed By: #### A1C, CMP, GFR #### [place] [address] CMP Collected: 11/10/2017 Status: F Source: [facility] 12:48 PM [facility] REPOSITORY TYPE CODE TESTS RESULT OUT OF REFERENCE UNITS RANGE LAB GLU(LOINC) 80-115 mg/dL Glucose High Level 251 LAB NA(LOINC) 136-145 mmol/L Sodium Level 141 LAB K(LOINC) 3.5-5.1 mmol/L Potassium Level 4.4 LAB CL(LOINC) 98-107 mmol/L Chloride 104 LAB CO2(LOINC) 23-31 mmol/L CO2 24 LAB EBAL(LOINC mEq/L ) Electrolyte Balance 13.0 LAB BUN(LOINC) 7-18 mg/dL BUN 11 LAB CRE(LOINC) 0.55-1.02 mg/dL Creatinine Lvl (s) 1.02 LAB BC(LOINC) 7-27 ratio BUN/Creatinine 11 Ratio LAB CA(LOINC) 8.4-10.2 mg/dL Calcium Lvl 9.1 LAB PROT(LOINC 6.4-8.2 G/dL ) Total Protein 7.0 LAB ALB(LOINC) 3.4-4.8 G/dL Albumin Level 3.9 LAB GLB(LOINC) G/dL Globulin 3.1 LAB AG(LOINC) 1.1-2.5 ratio A/G Ratio 1.3 LAB BILT(LOINC 0.2-1.0 mg/dL ) Bili Total 0.7 LAB AP(LOINC) 40-135 U/L Alk Phos 87 LAB AST(LOINC) 10-40 U/L AST/SGOT High 53 LAB ALT(LOINC) 10-35 U/L ALT/SGPT High 66 Performed By: #### A1C, CMP, GFR #### [address] [address] .GFR Collected: 11/10/2017 Status: F Source: [facility] 12:48 PM [facility] REPOSITORY TYPE CODE TESTS RESULT OUT OF REFERENCE UNITS RANGE LAB GFRAA(LOINC ml/min/1.73 ) sqm GFR 67 [place] Result Comment: GFR Population mean for , Non- Americans Ages 20-29 = 116 mL/min/1.73 sq.m. Ages 30-39 = 107 mL/min/1.73 sq.m. Ages 40-49 = 99 mL/min/1.73 sq.m. Ages 50-59 = 93 mL/min/1.73 sq.m. Ages 60-69 = 85 mL/min/1.73 sq.m. Ages 70+ = 75 mL/min/1.73 sq.m. Chronic Kidney Disease: Less than 60 mL/min/1.73 square meters End Stage Renal Disease: Less than 15 mL/min/1.73 square meters LAB GFRNO(LOINC) ml/min/1.73sqm GFR Non- 55 Result Comment: GFR Population mean for , Non- Americans Ages 20-29 = 116 mL/min/1.73 sq.m. Ages 30-39 = 107 mL/min/1.73 sq.m. Ages 40-49 = 99 mL/min/1.73 sq.m. Ages 50-59 = 93 mL/min/1.73 sq.m. Ages 60-69 = 85 mL/min/1.73 sq.m. Ages 70+ = 75 mL/min/1.73 sq.m. Chronic Kidney Disease: Less than 60 mL/min/1.73 square meters End Stage Renal Disease: Less than 15 mL/min/1.73 square meters Performed By: #### A1C, CMP, GFR #### [address] [address] INITAL EVALUATION (1) Observed: 10/28/2017 Status: F Source: [place] - [place] 10:10 AM [facility] REPOSITORY [facility] [address] [place], [place] [address] Fax REHABILITATION SERVICES INITIAL EVALUATION MR#: [id number] Acct: [id number] Name: RADHA RAMOS Rep #: [id number] : 1955 62 From: Morgan Barnes PT, Cert. MDT, OCS Referring Dr.: Gloria Xie Status: REG R Insurance: [employer] SELF PAY INSURANCE Patient's Visit Information RADHA RAMOS is a 62 year old F referred to Physical Therapy by RA Vale with a diagnosis of LUMBOSACRAL INTERVERTEBRAL DISC,DISORDER SACRUM,SACROILITIS. Date of Evaluation: 10/27/17 Physical Therapist: Morgan Barnes PT, - Visit Plan Frequency: 2x /Week Duration: 4 Weeks Plan: intailly pain releive intervention modalities ,progress to DLS for abd/back SI progam,postural ex's - Subjective Subjective: This 62 y/o female presents to physical therapy with lumbar pain . Patient fell on ice Esther slipped landed buttuck/sacrum. Patient seen Dr Pugh recommended pain managemnet. Patient had epidural injections x2 . Did x-rays -. Recommended PT. Symptoms worse with sitting,bending,lifting . Patient symptoms better MEDS ,CP. Denies parathesia/tingling. Cooghing/sneezing -. Sleeping okay at night on sides. Patient has h/o lumbar pain. No treatmment. Patient symptoms affect QOL ,job demands ,and housework tasks. SOCIAL: . VOCATION: [employer] - Pain Bilateral Back Pain Intensity (Out of 10): 7 Pain Intensity Range: 10 - Objective POSTURE: mild foward posture. GAIT: normal aston reciprocal pattern. NEURO: reflexes L3-4,L4-5,L5-S1 2/3 ,. FLEXABLITY: hams min tight. SYMMTRIES: ALIGN. PALAPTION: tender SI. LUMBAR ROM: flexion min loss ,extension min loss,side glides min loss pain all planes of motion. TA ACTIVATION: poor - Special Tests L/S Slump test left side: Negative L/S Slump test right side: Negative L/S Left Straight Leg Raise: Negative L/S Right Straight Leg Raise: Negative Lumbar Standing: Flexion - Mechanical Response: No effect Lumbar Standing: Flexion - Symptoms During Testing: Increases Lumbar Standing: Flexion - Symptoms After Testing: No worse Lumbar Standing: Extension - Mechanical Response: No effect Lumbar Standing: Extension - Symptoms During Testing: Increases Lumbar Standing: Extension - Symptoms After Testing: No worse Lumbar Standing: Right Side Glides - Mechanical Response: No effect Lumbar Standing: Right Side [place] - Symptoms During Testing: Increases Lumbar Standing: Right Side [place] - Symptoms After Testing: No worse Lumbar Standing: Left Side [place] - Mechanical Response: No effect Lumbar Standing: Left Side [place] - Symptoms During Testing: Increases Lumbar Standing: Left Side [place] - Symptoms After Testing: No worse Lumbar Lying: Flexion - Mechanical Response: No effect Lumbar Lying: Flexion - Symptoms During Testing: Increases Lumbar Lying: Flexion - Symptoms After Testing: No worse Lumbar Lying: Extension - Mechanical Response: No effect Lumbar Lying: Extension - Symptoms During Testing: Increases Lumbar Lying: Extension - Symptoms After Testing: No worse - Goals Goal 1:: Patient to be Independant with HEP Goal Time Frame: 4-6 Weeks Goal 2:: Patient to be Independant with posture/body mechanics to decrease back pain Goal Time Frame: 4-6 Weeks Goal 3:: Patient to decrease lumbar pain by 50% or greater to improve function with ADL'S Goal Time Frame: 4-6 Weeks Goal 4:: Patient to improve lumbar ROM with less pain for function of recovery Goal Time Frame: 4-6 Weeks Goal 5:: Patient be able to perform ADL'S and job demands with min limioations Goal Time Frame: 4-6 Weeks Goal 6:: Patient improve low back owestry outconme scor by 5 points Goal Time Frame: 4-6 Weeks - Rehabilitation Potential Physical Therapy Diagnosis: This patient has L-S/SI dysfunction with pain which patient fell Prashanth on ice [...] training, Body mechanics, Postural training, Flexibilty training, Dynamic Lumbar Stabilization For the Purpose of:: To decrease pain, To increase ROM, To improve muscle performance and motor function, To improve ability to perform ADL's, To increase tolerance to activity/condition/position, To decrease level of supervision to perform tasks, To improve health of tissue, To decrease soft tissue restriction, To increase flexibility/ROM, To improve ability to perform tasks related to life management TENS: Yes IF ES: Yes Cryotherapy (ice pack, ice massage): Yes Thermo therapy (hot pack): Yes Ultrasound (thermal/non thermal): Yes For the Purpose of:: To decrease pain, To increase ROM, To improve nutrient delivery to tissue, To increase oxygenation perfusion, To improve health of tissue, To decrease soft tissue restriction Thank you for the opportunity to evaluate your patient. For Medicare and Medicare HMO plans, please review the plan of care and approve it. It will need to be FAXED BACK to us at [phone] for Medicare purposes. Please let me know if there are questions or concerns regarding this plan of care. Physician Signature: Date: <Electronically signed by Morgan Barnes PT, Cert. T, OCS> 10/28/17 1010 CC: Gloria Pugh DO JOSSELINE Signed For Medicare only, by signing this I certify the plan of care. Physicians Signature Date DOWNTIME REPORT Observed: 08/26/2017 Status: F Source: [place] 11:57 AM [facility] REPOSITORY [facility] Medical Records Department [address] [place] [address] Downtime Report MR#: [id number] Acct: [id number] Name: RADHA RAMOS Rep #: [id number] : 1955 61 From: Herrera Garcia PCP: Leticia Pugh DO Status: REG CLI This patient was seen during an EMR downtime August 09, 2017 - August 16, 2017. This patient may have a combination of paper and electronic documentation or all paper documentation. All documentation is viewable within the e-chart portion of [facility] for each patient visit. SCREENING MAMM (CAD), Observed: 08/13/2017 Status: F Source: [place] BIL[place] 11:57 AM [facility] REPOSITORY [facility] Imaging Services [address] [place] [address] SCREENING MAMM (CAD), BILAT MR#: [id number] Acct: [id number] Name: RADHA RAMOS Rep #: [id number] : 1955 F 61 From: Kalpana Sharp MD PCP: Leticia Pugh DO Status: REG CLI Study: SCREENING MAMM (CAD), BILAT Date of Exam: 08/13/17 Exam# [id number] Ordering Dr: Zhane Angeles MD MAMMOGRAPHY - BILATERAL SCREENING REASON FOR EXAM: Female, 61 years old. Routine annual screening examination. PERTINENT HISTORY: NO FAM HX CURRENT PROGESTERONE CR X 6 MO NO SX TECHNIQUE: Digital bilateral breast compa (3D mammographic acquisition) in the CC and MLO projections. 2-D mediolateral oblique (MLO) and craniocaudad (CC) views of both breasts were obtained. CAD: Full Field Digital Mammography with Computer Added Detection was performed. COMPARISON: 08/11/2016, 08/08/2015, 08/03/2014 FINDINGS: Breast Composition: The breasts are heterogeneously dense, which may obscure small masses. There are no dominant masses or suspicious calcifications. No other significant abnormalities are identified. BI/SCREENING MAMM (CAD), BILAT IMPRESSION: Stable bilateral screening mammogram. Yearly follow-up mammogram recommended. (A) ASSESSMENT CATEGORY: BIRADS Category 2: Benign. A letter regarding these results will be sent to the patient by the facility within 30 days. Approximately 10% of breast cancers are not detected by mammography. A normal mammogram should not delay biopsy of a clinically suspicious abnormality. [id number] Electronically Signed: Kalpana Sharp MD at 13:51 EDT Tel , Service support , CC: Zhane Angeles MD; Leticia Pugh DO Deputy County Attorney: Signed L/S SPINE MIN 4 Observed: 07/21/2017 Status: F Source[place] VIEWS 3:23 PM [facility] REPOSITORY [facility] Imaging Services [address] [place] [address] L/S Spine Min 4 Views MR#: [id number] Acct: [id number] Name: RADHA RAMOS Rep #: [id number] : 1955 F 61 From: Durga Peñaloza MD PCP: Leticia Pugh DO Status: REG CLI Study: L/S Spine Min 4 Views Date of Exam: 07/21/17 Exam# [id number] Ordering Dr: Joey Greer MD STUDY: X-RAY - LUMBAR SPINE REASON FOR EXAM: [...] , CC: Joey Greer; Leticia Pugh DO Deputy County Attorney: Signed CARDIOLOGY VISIT Observed: 06/25/2017 Status: F Source[place] RE[place] 9:01 AM [facility] REPOSITORY [facility] [address] [place] [address] OFFICE VISIT Date of Service: 06/24/17 MR#: [id number] Acct: [id number] Name: RADHA RAMOS Rep #: [id number] : 1955 Provider: Sj Vasquez Age/Sex: 61/F Location: [facility] Status: Signed HPI HPI Details: RADHA RAMOS, is a 61 F who presents to the office today for a cardiovascular follow-up. She has a history of atypical chest discomfort, palpitations, hyperlipidemia and diabetes. From a cardiac standpoint, patient is doing well. She does not have any chest discomfort/heaviness/tightness. Her exercise tolerance is stable for her age. She does not have any worsening symptoms of shortness of breath. She does not have any orthopnea. She denies PND. She does not have any symptoms of congestive heart failure. She does not have any palpitations that she is aware of. She does not have any lightheadedness or dizziness. She does not have any near-syncope or syncope. She does not have any lower extremity edema. She does not have any symptoms of claudication. Intake Vital Signs06/24/17 Height 5 ft 5 in 06/24/17 Weight: 196 lb 06/24/17 Body Mass Index (BMI) 32.5 06/24/17 Blood Pressure 138/82 Intake Visit Reasons: 6 M FU Tow Operator Required: No Accompanied by: none Is patient in pain?: No Allergies pravastatin [From Pravachol] Adverse Reaction (Severe, Verified 06/24/17 14:32) Myalgias atorvastatin [From Lipitor] Adverse Reaction (Intermediate, Verified 06/24/17 14:32) Muscle pain simvastatin [From Zocor] Adverse Reaction (Intermediate, Verified 06/24/17 14:32) Myalgias Medications Colestipol Tablet [Colestid Tablet] 2 gm PO DAILY 09/24/14 [History Confirmed 06/24/17] Cyanocobalamin [Vitamin B12] 100 mcg SC UD 09/24/14 [History Confirmed 06/24/17] Ezetimibe [Zetia] 10 mg PO DAILY 09/24/14 [History Confirmed 06/24/17] Liraglutide [Victoza 2-Juan] 0.1 - 8 mg SQ QHS 09/24/14 [History Confirmed 06/24/17] Aspirin 81 mg PO DAILY 12/23/15 [History Confirmed 06/24/17] cholecalciferol (vitamin D3) 2,000 unit tablet See Label Instructions PO QDAY 06/22/17 [History Confirmed 06/24/17] metoprolol tartrate 25 mg tablet 25 mg PO QDAY tab 06/22/17 [History Confirmed 06/24/17] oxybutynin chloride ER 5 mg tablet,extended release 24 hr 5 mg PO QDAY 06/24/17 [History Confirmed 06/24/17] Ejection fraction %: 60 to 64 PFSH Medical History Palpitations (Chronic) Mitral valve prolapse (Chronic) Hyperlipidemia (Chronic) Chest pain (Acute) Night sweats (Acute) Surgical History History of knee surgery (Resolved) Hx of cholecystectomy (Resolved) H/O foot surgery (Resolved) Hx of appendectomy (Resolved) H/O: hysterectomy (Resolved) H/O shoulder surgery (Resolved) Family History Mother CAD (coronary artery [...] vision or transient loss of vision ENT ENT: Negative for headache(s), dizziness, tinnitus or Nosebleed/epistaxis Cardio Chest Pain: No Palpitations: No Edema: None Muscle aches with walking: None Resp Respiratory: Negative for SOB with activity, SOB at rest, SOB orthopnea\SOB lying down or Cough GI GI: Negative nausea, vomiting, heartburn or vomiting blood/hematemesis : Negative for hematuria Musc Musc: Negative for muscle aches/ myalgia Neuro Neuro: Negative for weakness, headache(s), dizziness, near syncope, syncope, lightheadedness or orthostatic symptoms Baldemar Hematologic/Lymphatic: Negative for easy bleeding Endo Endo: Negative for fatigue Cardiology Exam Const Appearance: cooperative, no acute distress and well developed Orientation: alert, awake and oriented x3 Head Head: normocephalic and atraumatic Mouth: moist mucous membranes Eyes General: appearance normal, both eyes and [...] Info Stress echocardiogram in December 2016 was negative for ischemia. Assessment AND Plan 1. Mixed hyperlipidemia E78.2 Plan Patient questions whether not she is a candidate for a Repatha. Her lipids are adequately controlled on current medications. Recent lipid profile demonstrates total cholesterol 180, HDL 35, LDL 110. Plan Detail Additional Comments Thank you for allowing us to participate in patient's plan of care, if you have any questions please do not hesitate to [...] hyperlipidemia Coding Level of Care Code Off vis,est,level 3 Diagnoses Mixed hyperlipidemia E78.2 Hyperlipidemia type: mixed hyperlipidemia 06/25/17 0901 <Electronically signed by Sj MCGRATH> Date Sj MCGRATH Cosigner Signature: Date (if applicable) CC: Leticia Pugh DO LIVER PROFILE Collected: 06/14/2017 Status: F Source: [place] 9:58 AM [facility] REPOSITORY Order Comment: Order Date: 10/16/16 Order Info: 0788-1 - *Hepatic Function Panel Order Info: [id number] - *Lipid Profile CC PCP Comments: 12 hours fasting, may have water. TYPE CODE TESTS RESULT OUT OF RANGE REFERENCE UNITS LAB L501.1500 6.4-8.2 g/dL Normal T PROT 7.6 LAB L501.1800 3.2-5.0 g/dL Normal ALB 4.0 LAB L501.1950 2.2-4.2 g/dL Normal GLOB 3.6 LAB L501.4100 15-37 U/L Normal AST 30 LAB L501.4305 45-117 U/L Normal ALK P 103 LAB L501.4405 13-56 U/L Normal ALT 47 Result Comment: Please note revised ALT reference range effective 2017. LAB L501.4600 0.20-1.00 mg/dL Normal T BILI 0.70 LAB L501.4700 0.00-0.30 mg/dL Normal D BILI 0.07 Performed By: #### L500.3400 #### [facility] [address] [place], [address] LIPID PROFILE Collected: 06/14/2017 Status: F Source: [place] 9:58 AM [facility] REPOSITORY Order Comment: Order Date: 10/16/16 Order Info: 0788-1 - *Hepatic Function Panel Order Info: [id number] - *Lipid Profile CC PCP Comments: 12 hours fasting, may have water. TYPE CODE TESTS RESULT OUT OF RANGE REFERENCE UNITS LAB L501.4900 200 mg/dL Normal CHOL 180 Result Comment: <200 mg/dL Desirable 200-240 mg/dL Borderline >240 mg/dL High Risk LAB L501.5000 mg/dL Normal TRIG 176 Result Comment: The drugs N-Acetylcysteine and Metamizole may falsely depress this assay. Serum Triglycerides Reference Interval Normal <150 mg/dL Borderline high 150 - 199 mg/dL High 200 - 499 mg/dL Very High > or = 500 mg/dL LAB L501.6400 mg/dL Low HDL 35 Result Comment: The drugs N-Acetylcysteine and Metamizole may falsely depress this assay. Reference Range HDL <40 mg/dL Low HDL Cholesterol HDL >or= 60 mg/dL High HDL Cholesterol LAB L501.6500 0-130 mg/dL Normal LDL 110 LAB L501.6600 5-40 mg/dL Normal VLDL 35 Performed By: #### L500.4100 #### [facility] [address] [facility] [place], [address] S-I JTS 3 OR MORE Observed: 05/21/2017 Status: F Source: [facility] 10:57 AM [facility] REPOSITORY [facility] Imaging Services [address] [place] [address] S-I Jts 3 or More Views MR#: [id number] Acct: [id number] Name: RADHA RAMOS Harsh Rep #: [id number] : 1955 F 61 From: Frederick Pemberton MD PCP: Leticia Pugh DO Status: REG CLI Study: S-I Jts 3 or More Views Date of Exam: 05/21/17 Exam# [id number] Ordering Dr: Leticia Pugh DO STUDY: X-RAY - SACROILIAC JOINTS REASON FOR EXAM: Female, 61 years old. Bilateral SI joint pain TECHNIQUE: 3 view(s) of the sacroiliac joints were obtained. COMPARISON: None. FINDINGS: Normal bilateral sacroiliac joints. Normal visualized sacral ala and sacrum. Normal visualized iliac bones. Normal visualized soft tissue structures. RAD/S-I Jts 3 or More Views IMPRESSION: Normal x-ray examination of the bilateral sacroiliac joints. Electronically Signed: Frederick Pemberton MD at 16:51 EDT , Service support , CC: Leticia Pugh DO Deputy County Attorney: Signed .GFR Collected: 05/12/2017 Status: F Source: [facility] 3:07 PM [facility] REPOSITORY TYPE CODE TESTS RESULT OUT OF REFERENCE UNITS RANGE LAB GFRAA(LOINC ml/min/1.73 ) sqm GFR 88 [place]ran Result Comment: GFR Population mean for , Non- Americans Ages 20-29 = 116 mL/min/1.73 sq.m. Ages 30-39 = 107 mL/min/1.73 sq.m. Ages 40-49 = 99 mL/min/1.73 sq.m. Ages 50-59 = 93 mL/min/1.73 sq.m. Ages 60-69 = 85 mL/min/1.73 sq.m. Ages 70+ = 75 mL/min/1.73 sq.m. Chronic Kidney Disease: Less than 60 mL/min/1.73 square meters End Stage Renal Disease: Less than 15 mL/min/1.73 square meters LAB GFRNO(LOINC) ml/min/1.73sqm GFR Non- >60 Result Comment: GFR Population mean for , Non- Americans Ages 20-29 = 116 mL/min/1.73 sq.m. Ages 30-39 = 107 mL/min/1.73 sq.m. Ages 40-49 = 99 mL/min/1.73 sq.m. Ages 50-59 = 93 mL/min/1.73 sq.m. Ages 60-69 = 85 mL/min/1.73 sq.m. Ages 70+ = 75 mL/min/1.73 sq.m. Chronic Kidney Disease: Less than 60 mL/min/1.73 square meters End Stage Renal Disease: Less than 15 mL/min/1.73 square meters Performed By: #### GFR, CMP, TSH, FT4, FT3, A1C #### [address] [place], [place] [address] CMP Collected: 05/12/2017 Status: F Source: [place] [email or web address] 3:07 PM [facility] REPOSITORY TYPE CODE TESTS RESULT OUT OF REFERENCE UNITS RANGE LAB 1547-9 80-115 mg/dL GLUCOSE High 142 LAB NA(LOINC) 136-146 mEq/L Sodium Level 140 LAB K(LOINC) 3.5-5.1 mEq/L Potassium Level 4.6 LAB CL(LOINC) 98-107 mEq/L Chloride 105 LAB CO2(LOINC) 23-31 mEq/L CO2 26 LAB EBAL(LOINC mEq/L ) Electrolyte Balance 9.0 LAB BUN(LOINC) 7.0-18.0 mg/dL BUN 14.6 LAB CRE(LOINC) 0.6-1.2 mg/dL Creatinine Lvl (s) 0.8 LAB BC(LOINC) 7-27 ratio BUN/Creatinine 18 Ratio LAB CA(LOINC) 8.4-10.2 mg/dL Calcium Lvl 9.1 LAB PROT(LOINC 6.0-8.3 G/dL ) Total Protein 6.9 LAB ALB(LOINC) 3.4-4.8 G/dL Albumin Level 4.6 LAB GLB(LOINC) G/dL Globulin 2.3 LAB AG(LOINC) 1.1-2.5 ratio A/G Ratio 2.0 LAB BILT(LOINC 0.2-1.0 mg/dL ) Bili Total 0.3 LAB AP(LOINC) 40-135 IU/L Alk Phos 96 LAB AST(LOINC) 10-40 IU/L AST/SGOT 30 LAB ALT(LOINC) 10-35 IU/L ALT/SGPT 34 Performed By: #### GFR, CMP, TSH, FT4, FT3, A1C #### [address] [place], [place] [address] TSH Collected: 05/12/2017 Status: F Source: [facility] 3:07 PM [facility] REPOSITORY TYPE CODE TESTS RESULT OUT OF RANGE REFERENCE UNITS LAB TSH(LOINC) 0.27-4.20 mcIU/mL TSH 1.77 Performed By: #### GFR, CMP, TSH, FT4, FT3, A1C #### [address] [place], [place] [address] FT4 Collected: 05/12/2017 Status: F Source: [facility] 3:07 PM [facility] REPOSITORY TYPE CODE TESTS RESULT OUT OF RANGE REFERENCE UNITS LAB FT4(LOINC) 0.6-1.7 ng/mL Free T4 0.9 Performed By: #### GFR, CMP, TSH, FT4, FT3, A1C #### [address] [address] FT3 Collected: 05/12/2017 Status: F Source: [facility] 3:07 [facility] REPOSITORY TYPE CODE TESTS RESULT OUT OF RANGE REFERENCE UNITS LAB FT3(LOINC) 2.3-4.0 pg/mL Free T3 3.6 Performed By: #### GFR, CMP, TSH, FT4, FT3, A1C #### [address] [address] A1C Collected: 05/12/2017 Status: F Source: [facility] 3:07 [facility] REPOSITORY TYPE CODE TESTS RESULT OUT OF RANGE REFERENCE UNITS LAB A1C(LOINC) 4.8-5.9 % High Hgb A1c 6.4 Performed By: #### GFR, CMP, TSH, FT4, FT3, A1C #### [address] [address] ALLERGIES ALLERGIES DATE TYPE / CODE NAME / CODE REACTION SEVERITY SOURCE 12/29/2017 Drug [id number] Myalgia [facility] Class/45977 REDUCTASE Other [place] 1003(SNOMED INHIBITORS Repository CT) 06/24/2017 Drug pravastatin/F0060 MYALGIAS [facility] Allergy/416 70324(RXNORM) Community 480463([facility] ED CT) Repository 06/24/2017 Drug simvastatin/F0060 MYALGIAS [place] [facility] All[facility]/416 05152(RXNORM) Community 534958([facility] ED CT) Repository 06/24/2017 Drug atorvastatin/F006 MUSCLE PAIN MO [facility] All[facility]/416 946024(RXNORM) Community 405085([facility] ED CT) Repository 11/14/2016 Drug No Known Unknown [facility] Allergy/416 Allergies/V041816 Community 033884([facility] Repository /[id number] [facility] 6([facility] CT) INHIBITORS Repository ENCOUNTERS ENCOUNTERS ADMIT/DISCHARGE ACCOUNT NUMBER ADMITTING ENCOUNTER LOCATION SOURCE CLASS 03/07/2018 [id number] Ambulatory [facility] ding:US Repository 02/24/2018 [id number] Ambulatory Building:[facility] OHIP Practices Repository 02/16/2018 [id number] Ambulatory [facility] ding:MRI Repository 02/15/2018/02/16/20 [id number] Ambulatory BBuilding:[address] Repository 01/14/2018/01/15/20 [id number] Ambulatory [address] Repository 01/14/2018/01/15/20 [id number] Ambulatory [place] [address] MEDICAL Repository CENTERBuildi ng:AGCARDPHR A 01/11/2018/01/12/20 [id number] Ambulatory [address] ding:[facility] Repository 12/14/2017 [id number] Ambulatory BMSBuilding: [place] BMS.CF.[facility] Repository 12/14/2017 [id number] Ambulatory [facility] ding:[facility] Repository 12/09/2017/12/10/19 [id number] Ambulatory [place] ding:PT Repository 12/07/2017 [id number] Ambulatory [facility] ding:POLAB3 Repository 12/07/2017/12/08/19 [id number] Ambulatory BMSBuilding: [facility] 18 BMS.[facility] Repository 11/10/2017/11/11/19 [id number] Ambulatory [address] ding:[facility] Repository 08/13/2017 [id number] Ambulatory [facility] ding:OPBI Repository 07/21/2017 [id number] Ambulatory [facility] ding:HPRAD Repository 07/07/2017 [id number] Ambulatory [facility] ding:PSN Repository 07/07/2017 [id number] Ambulatory BMSBuilding: [facility] Repository 06/24/2017/06/25/19 [id number] Ambulatory BMSBuilding: [place] 18 BMS.[facility] Repository 06/22/2017 [id number] Ambulatory BMS [facility] Repository 06/18/2017 [id number] Ambulatory BMSBuilding: [place] BMS.[facility] Repository 06/14/2017 [id number] Ambulatory [facility] ding:LAB Repository 05/21/2017 [id number] Ambulatory [facility] ding:HPRAD Repository 05/12/2017/05/13/19 [id number] Ambulatory [address] ding:[facility] Repository PAYERS PAYERS ENCOUNTER GUARANTOR PAYER SUBSCRIBER SOURCE 03/07/2018 RADHA House Primary TRUE SENNDOB: [place] [id number] BIB Insurance:AULTCAREPol [id number] [place], [place] icy Number: [facility] [address]Pfg: 330 [id number] Repository [phone] () Date:2426-86-09[address] [address]GD: 03/07/2018 Secondary NOT GIVENUNK [place] Insurance:SELF PAY [facility] Number: Effective Repository Date:2018-03-07 02/24/2018 Radha House Primary True Mary SennDOB: [place] [facility] SennDOB: Insurance:AultcarePol [id number] Repository icy Number: [address] [id number] [place], [place] Date:6284-90-59Plny [address]Tuz: [phone]: ([phone]) Name:[facility] [phone] () [phone] () [address] Cent[facility]alentina[facility] [place] [address]CX: 02/24/2018 Secondary True E SennDOB: [place] Practices Insurance:Medical [id number] Repository [place] [address] [address] Number: MARIA T Pinto [id number] [address]Vsh: 330) Date:2004-09-05 (HP) 2723-75-84Iacy Name:[facility] [address] [id number]: 02/24/2018 Tertiary True E SennDOB: [place] Practices Insurance:Medical [id number] Repository [place] [address] Bib Number: MARIA T Pinto [id number] [id number]: ([phone]) Date: () 8893-87-77Dpwh Name:[facility] [address] [address]af[place], [place] [id number]: 02/24/2018 Tertiary True E SennDOB: [place] Practices Insurance:[place] [id number] Repository [facility]/[address] Number: MARIA T Pinto [id number] [phone]: ([phone]) Date:2010-03-08 (HP) [id number] Name:. [address] [place] [id number]: 02/16/2018 RADHA House Primary TRUE SENNDOB: [place] [id number] BIB Insurance:AULTCAREPol [id number] [facility] BRAXTON [facility] Number: Hospital 91972Tyl: [phone]) [id number] Repository [phone] () Date:2560-53-60CC [address], [place] [address]FH: 02/16/2018 Secondary NOT GIVENUNK [place] Insurance:SELF PAY [facility] Number: Effective Repository Date:2018-02-07 02/15/2018 RADHA House Primary TRUE SENNDOB: [facility] SENNDOB: Insurance:[facility] [id number] Foundation [id number] Number: 1 BIB Repository BIB [id number] [place] Date:2018-02-15 [address]Bmr: [phone]~[id number]@ [id number] [phone] [email or web address]: Name:[employer] Box ()Tel: (000) [address] [place] [address] 000-0000 (WP) () 316[address]VU: 01/14/2018 RADHA House Primary TRUE SENNDOB: [facility] SENNDOB: Insurance:[facility] [id number] [facility] icy Number: Repository BIB [id number] [place], [place] Date: [address]Mmx: () 01/11/2018 RADHA House Primary TRUE SENNDOB: [facility] SENNDOB: Insurance:[facility] [id number] Foundation [id number] Number: 1 BIB Repository BIB [id number] [place], [place] Date:2018-01-11 [address]Ldk: [phone]~[id number]@ [id number] [phone] [email or web address]: Name:[employer] Box ()Tel: (000) [address] [place] [address] 000-0000 (WP) () 92[address]CM: 12/14/2017 RADHA House Primary TRUE SENNDOB: [facility] [id number] [address] Insurance:[facility] [id number] [place], [place] icy Number: Hospital [id number]: (148) [id number] Repository [phone] () Date:1574-65-69QF [address] [place] [address]QS: 12/14/2017 Secondary NOT GIVENUNK [place] Insurance:SELF PAY Community [facility] Number: Effective Repository Date:2017-12-14 12/14/2017 RADHA House Primary TRUE SENNDOB: [place] [id number] [address] Insurance:[employer]ULTCAREPol [id number] Community [place] icy Number: Hospital [id number]: 330 [id number] Repository [phone] () Date:9101-18-46NS [address] [place] [address]EO: 12/14/2017 Secondary NOT GIVENUNK [place] Insurance:SELF PAY Community [facility] Number: Effective Repository Date:2017-12-07 12/09/2017 RADHA House Primary True SennDOB: [place] [id number] [address] Insurance:AULTCAREPol [id number] [facility] [place] icy Number: Hospital [id number]: 330 [id number] Repository [phone] () Date:8618-76-70BO [facility] [address] [place] [address]TS: 12/09/2017 Secondary NOT GIVENUNK [facility] Insurance:SELF PAY Community [facility] Number: Effective Repository Date:2017-10-22 12/07/2017 RADHA House Primary True SennDOB: [place] [id number] [address] Insurance:AULTCAREPol [id number] [facility] [place] icy Number: Hospital [id number]: 330 [id number] Repository [phone] () Date:7434-52-16WU [address] [place] [address]SI: 12/07/2017 Secondary NOT GIVENUNK [place] Insurance:SELF PAY [facility] Effective Repository Date:2017-12-07 12/07/2017 RADHA House Primary True SennDOB: Artemio [id number] BIB Insurance:[place]ARE[place] [id number] [facility] [place] Number: Hospital [id number]: 330 [id number] Repository [phone] () Date:2367-92-39JM [address] [place] [id number]: 12/07/2017 Secondary NOT GIVENUNK Artemio Insurance:SELF PAY Community [facility] Number: Effective Repository Date:2017-12-07 11/10/2017 RADHA House Primary TRUE SENNDOB: [facility] SENNDOB: Insurance:AULTCARE [id number] L26Ictdsj Number: 1 [address] Repository [place] [id number] [place], [place] Date:2017-11-10 45057Mmj: [phone] [phone] [facility]ITALNETMarcelo: Name:TANK INSULATOR RUBBER Box ()Tel: (000) [address] [place] [address] [phone] () () [id number]: 08/13/2017 RADHA Harsh Primary True SennDOB: Noble [id number] BIB Insurance:[place]ARE[place] [id number] [place] Number: Hospital [id number]: [phone] [id number] Repository [phone] () Date:3734-10-94RJ [address] [place] [id number]: 08/13/2017 Secondary NOT GIVENUNK Noble Insurance:SELF PAY Community [facility] Number: Effective Repository Date:2017-07-21 07/21/2017 RADHA K Primary True SennDOB: Noble [id number] BIB Insurance:[place]ARE[place] [id number] [place] icy Number: [facility] 72403Iqh: [phone] [id number] Repository [phone] () Date:1415-21-04EM [address] [place] [id number]: 07/21/2017 Secondary NOT GIVENUNK Artemio Insurance:SELF PAY Community [facility] Number: Effective Repository Date:2017-07-21 07/07/2017 RADHA House Primary True SennDOB: Noble [id number] [address] Insurance:[place]ARE[place] [id number] [place], [place] icy Number: Hospital [id number]: 330 [id number] Repository [phone] (HP) Date:9837-16-55HQ [address] [place] [address]ZP: 07/07/2017 Secondary NOT GIVENUNK Artemio Insurance:SELF PAY Community [facility] Number: Effective Repository Date:2017-07-01 07/07/2017 RADHA House Primary True SennDOB: Artemio [id number] [place] Insurance:[place]ULTCARE[place] [id number] [place], [place] icy Number: Hospital [id number]: 330 [id number] Repository [phone] () Date:9078-67-00QO [address] [place] [id number]: 07/07/2017 Secondary NOT GIVENUNK Artemio Insurance:SELF PAY Community [facility] Number: Effective Repository Date:2017-07-07 06/24/2017 True [id number] Primary True SennDOB: Artemio Mccartney Insurance:[place]ARE[place] [id number] [place], [place] icy Number: Hospital [address]Lgs: 330 [id number] Repository [phone] () Date:6636-06-33JZ [address] [place] [id number]: 06/24/2017 Secondary NOT GIVENUNK Noble Insurance:SELF PAY Community [facility] Number: Effective Repository Date:2017-06-24 06/22/2017 True [id number] Primary True SennDOB: Artemio Mccartney Insurance:[place] [id number] Hospital [id number]: 330 [id number] Repository [phone] () Date:0272-01-08MY [address] [place] [id number]: 06/22/2017 Secondary NOT GIVENUNK Artemio Insurance:SELF PAY [facility] Number: Effective Repository Date:2017-06-22 06/18/2017 True [id number] Primary True SennDOB: Artemio Mccartney Insurance:[place]ARE[place] [id number] Number: Hospital [id number]: 330 [id number] Repository [phone] () Date:1755-89-31LV [address] [place] [id number]: 06/18/2017 Secondary NOT GIVENUNK Noble Insurance:SELF PAY [facility] Number: Effective Repository Date:2017-06-18 06/14/2017 True [id number] Primary True SennDOB: Noble Mccartney Insurance:[place]ARE[place] [id number]: Hospital [id number]: 330 [id number] Repository [phone] () Date:8808-30-41[address] [address]BW: 06/14/2017 Secondary NOT GIVENUNK Artemio Insurance:SELF PAY Community [facility] Number: Effective Repository Date:2017-06-14 05/21/2017 True [id number] Primary True SennDOB: Noble Mccartney Insurance:[place]ARE[place] [id number] Number: Hospital [id number]: 330 [id number] Repository [phone] () Date:8224-57-45PW [address] [place] [id number]: 05/21/2017 Secondary NOT GIVENUNK Artemio Insurance:SELF PAY Community [facility] Number: Effective Repository Date:2017-05-21 05/12/2017 RADHA House Primary TRUE SENNDOB: [facility] SENNDOB: Insurance:[facility] [id number] Foundation [id number] Number: 1 [address] Repository [place] [id number] T [place] Date:2017-05-12 [address]Hlz: [id number] [phone] [facility]OS[facility]ITALNETMarcelo: Name:CPO Nick ()Tel: [phone], [place] [phone] () [id number]:
== END ==
PROVIDERS: Family Provider Internal Medicine; PCP Internal Medicine; Referring Provider Anesthesiology Pain Medicine; Visit Provider Anesthesiology Pain Medicine
DX: M54.5 Low back pain (principal)
CPT/HCPCS: 72148

== ENCOUNTER → 2018-03-07 12:52 | Outpatient (CLI) | payer OTHER, SELFPAY ==
--- NOTE | 2018-03-07 12:55 | US_ITS ---
STUDY: THYROID ULTRASOUND REASON FOR EXAM: Female, 62 years old. Known thyroid nodules. TECHNIQUE: Ultrasound evaluation of the thyroid was performed with real-time and static doll-scale imaging. COMPARISON: Comparison is made with prior ultrasound of thyroid dated September 24, 2016. FINDINGS: RIGHT LOBE: The right lobe of the thyroid gland measures 4.9 cm x 1.7 cm x 2.0 cm. There is a heterogeneous echotexture. Once again, multiple hypoechoic nodules are seen measuring less than 1 cm. The largest is in the lower pole and measures 1 cm x 9.3 mm. There is evidence of increased vascularity. LEFT LOBE: The left lobe of the thyroid gland measures 4.2 cm x 1.6 cm x 1.6 cm. There is a heterogeneous echotexture. Multiple hypoechoic solid nodules are seen. The largest is in the lower pole. This measures 7.8 mm x 1 cm. ISTHMUS: The isthmus is enlarged and measures 6.0 mm. The regional lymph nodes are normal. US/Thyroid IMPRESSION: Heterogeneous enlargement of both lobes of the thyroid slightly worse on the right side with multiple small nodules. There has been essentially no change. Electronically Signed: Ross Saxena MD at 14:00 EST Tel [phone], Service support ,
[2018-03-07 16:15] LABS: Vitamin D,25 Hydroxy 24.3 ng/mL (29.95-100.01)
== END ==
PROVIDERS: Family Provider Internal Medicine; PCP Internal Medicine; Referring Provider Internal Medicine; Visit Provider Internal Medicine
DX: R93.89 Abnormal findings on diagnostic imaging of other specified body structures (principal); E55.9 Vitamin D deficiency, unspecified
CPT/HCPCS: 36415; 76536; 82306

== ENCOUNTER → 2018-08-15 09:53 | Outpatient (CLI) | payer OTHER, SELFPAY ==
[2018-06-20 14:57] VITALS: BMI 32.5
[2018-08-09 11:08] VITALS: BMI 32.5
--- NOTE | 2018-08-15 09:54 | BI_ITS ---
MAMMOGRAPHY - BILATERAL SCREENING REASON FOR EXAM: Female, 62 years old. Routine annual screening examination. PERTINENT HISTORY: Non-contributory. TECHNIQUE: Digital bilateral breast jeff (3D mammographic acquisition) in the CC and MLO projections. 2-D mediolateral oblique (MLO) and craniocaudad (CC) views of both breasts were obtained. CAD: Full Field Digital Mammography with Computer Added Detection was performed. COMPARISON: Comparison is made with prior study dated August 13, 2017 and August 11, 2016. FINDINGS: Breast Composition: The breasts are heterogeneously dense, which may obscure small masses. There are no dominant masses or suspicious calcifications. No other significant abnormalities are identified. There has been no significant change since the prior study. BI/SCREEN MAMM (CAD) W/JEFF BILAT IMPRESSION: Stable bilateral screening mammogram. Yearly follow-up mammogram recommended. (A) ASSESSMENT CATEGORY: BIRADS Category 1: Negative. A letter regarding these results will be sent to the patient by the facility within 30 days. Approximately 10% of breast cancers are not detected by mammography. A normal mammogram should not delay biopsy of a clinically suspicious abnormality. [id number] Electronically Signed: Ross Saxena, at 11:23 EDT , Service support ,
== END ==
PROVIDERS: Family Provider Internal Medicine; PCP Internal Medicine; Referring Provider Obstetrics & Gynecology; Visit Provider Obstetrics & Gynecology
DX: Z12.31 Encounter for screening mammogram for malignant neoplasm of breast (principal)
CPT/HCPCS: 77063; 77067

== ENCOUNTER → 2019-05-05 12:41 | Outpatient (CLI) | payer OTHER, SELFPAY ==
[2019-01-12 17:07] VITALS: BMI 32.5
--- NOTE | 2019-05-05 12:47 | RAD_ITS ---
EXAM DESCRIPTION: PA and lateral chest CLINICAL HISTORY: 63 years Female, COUGH X 2 WKS, PT STATES SINCE RECEIVED SHINGLES VACCINE COUGH X 2 WKS, PT STATES SINCE RECEIVED SHINGLES VACCINE COMPARISON: Previous chest obtained on 11/14/2016 FINDINGS: The thorax is intact. The heart and mediastinum appear to be within normal limits. The lungs appear to be well areated without evidence of pneumonic consolidation or pleural effusion. RAD/Chest PA and Lateral IMPRESSION: Normal PA and lateral chest Electronically Signed: Larry Alvarez, at 16:02 EST Tel , Service support ,
== END ==
PROVIDERS: PCP Internal Medicine; Referring Provider Nurse Practitioner; Visit Provider Nurse Practitioner
DX: R05 Cough (principal)
CPT/HCPCS: 71046

== ENCOUNTER → 2019-08-10 12:48 | Outpatient (CLI) | payer OTHER, SELFPAY ==
[2019-01-12 17:07] VITALS: BMI 32.5
[2019-08-10 13:48] LABS: Estradiol 15.1 pg/mL
[2019-08-10 13:58] LABS: Progesterone Level < 0.21 ng/mL (See Comment)
[2019-08-11 13:18] LABS: DHEA Sulfate 69.3 ug/dL (29.4-220.5)
== END ==
PROVIDERS: PCP Internal Medicine; Visit Provider Obstetrics & Gynecology
DX: N95.1 Menopausal and female climacteric states (principal); L65.9 Nonscarring hair loss, unspecified
CPT/HCPCS: 36415; 82627; 82670; 84144; 82626

== ENCOUNTER → 2019-08-18 10:07 | Outpatient (CLI) | payer OTHER, SELFPAY ==
[2019-01-12 17:07] VITALS: BMI 32.5
[2019-08-14 09:05] VITALS: BMI 32.5
--- NOTE | 2019-08-18 10:09 | CT_ITS ---
STUDY: CT PELVIS WITH CONTRAST REASON FOR EXAM: Female, 63 years old. LEFT GROIN PAIN. RADIATION DOSAGE (If Supplied By Facility): CTDIvol = ( 28.21 ) mGy, DLP = ( 968.68 ) mGycm TECHNIQUE: Transaxial imaging of the pelvis was performed with oral contrast. Oral and amp; IV Readi-CAT and amp; 100mL Isovue-300 was administered intravenously. Individualized dose optimization techniques were used for this CT. COMPARISON: None. FINDINGS: Small bilateral benign appearing inguinal lymph nodes. Normal urinary bladder. Normal visualized small intestine. There are multiple colonic diverticula of the sigmoid colon consistent with chronic diverticulosis. Surgical clips are seen in the region of the appendix consistent with a prior appendectomy. There is no pelvic fluid. There is no pelvic lymphadenopathy or mass lesion. There is diffuse atherosclerotic calcification of the pelvic arteries. Normal abdominal wall. Normal osseous structures. CT/Pelvis WITH IV Contrast IMPRESSION: Sigmoid diverticulosis. Small benign-appearing bilateral inguinal lymph nodes. Electronically Signed: Ross Saxena, at 12:35 EDT , Service support ,
--- NOTE | 2019-08-18 10:16 | BI_ITS ---
MAMMOGRAPHY - BILATERAL SCREENING REASON FOR EXAM: Female, 63 years old. Routine annual screening examination. PERTINENT HISTORY: Non-contributory. TECHNIQUE: Digital bilateral breast jeff (3D mammographic acquisition) in the CC and MLO projections. 2-D mediolateral oblique (MLO) and craniocaudad (CC) views of both breasts were obtained. CAD: Full Field Digital Mammography with Computer Added Detection was performed. COMPARISON: Comparison is made with prior study dated August 15, 2018 and August 13, 2017. FINDINGS: Breast Composition: The breasts are heterogeneously dense, which may obscure small masses. There are no dominant masses or suspicious calcifications. Stable benign-appearing bilateral axillary. No other significant abnormalities are identified. There has been no significant change since the prior study. BI/SCREEN MAMM (CAD) W/JEFF BILAT IMPRESSION: Stable bilateral screening mammogram. Yearly follow-up mammogram recommended. (A) ASSESSMENT CATEGORY: BIRADS Category 2: Benign. A letter regarding these results will be sent to the patient by the facility within 30 days. Approximately 10% of breast cancers are not detected by mammography. A normal mammogram should not delay biopsy of a clinically suspicious abnormality. [id number] Electronically Signed: Ross Saxena, at 12:30 EDT , Service support ,
[2019-08-26 09:50] LABS: CREATININE FINGERSTICK 0.8 mg/dL (0.55-1.02)
== END ==
PROVIDERS: PCP Internal Medicine; Visit Provider Obstetrics & Gynecology
DX: Z12.31 Encounter for screening mammogram for malignant neoplasm of breast (principal); R10.32 Left lower quadrant pain
CPT/HCPCS: 72193; 77063; 77067; Q9967

== ENCOUNTER 2019-09-14 10:01 | Day surgery (SDC) | payer OTHER, SELFPAY ==
[2019-08-22 08:56] VITALS: BMI 32.5
--- NOTE | 2019-08-23 09:32 | HP_ITS ---
Intake Vital Signs 08/22/19 Height 5 ft 5 in 08/22/19 Weight: 184 lb 08/22/19 BMI 30.6 08/22/19 BP 138/80 H 08/22/19 Blood Pressure Location Rt brachial 08/22/19 Position Sitting 08/22/19 Respiration 16 08/22/19 Pulse 73 08/22/19 Pulse Source Monitor 08/22/19 Temp 97.6 F L 08/22/19 Temp Source Temporal 08/22/19 Pulse Oximetry (%) 99 08/22/19 Oxygen Delivery Method room air Intake Visit Reasons: F/U CT Chief Complaint: left inguinal hernia Sizing Sponger Required: No Is patient in pain?: Yes (Left groin) Pain scale (1-10): 6 Allergies exenatide [From Byetta] Adverse Reaction (Severe, Verified 08/22/19 08:56) dizziness pravastatin [From Pravachol] Adverse Reaction (Severe, Verified 08/22/19 08:56) Myalgias atorvastatin [From Lipitor] Adverse Reaction (Intermediate, Verified 08/22/19 08:56) Muscle pain simvastatin [From Zocor] Adverse Reaction (Intermediate, Verified 08/22/19 08:56) Myalgias Medications Ezetimibe [Zetia] 10 mg PO DAILY 09/24/14 [History Confirmed 08/22/19] Liraglutide [Victoza 2-Balbir] 0.1 - 8 mg SQ QHS 09/24/14 [History Confirmed 08/22/19] metformin 500 mg tablet 500 mg PO DAILY tab 06/20/18 [History Confirmed 08/22/19] metoprolol tartrate 25 mg tablet 25 mg PO BID #135 tab 06/20/18 [Rx Confirmed 08/22/19] colestipol 1 gram tablet 2 g PO DAILY #180 tab 07/21/18 [Rx Confirmed 08/22/19] aspirin 81 mg tablet,delayed release 81 mg PO DAILY 08/14/19 [History Confirmed 08/22/19] oxybutynin chloride 5 mg tablet tab PO 08/14/19 [History Confirmed 08/22/19] [facility] Medical History Type 2 diabetes mellitus (Chronic) Mixed hyperlipidemia (Chronic) Atypical chest pain (Chronic) Encounter for long-term current use of high risk medication (Chronic) Palpitations (Chronic) Wound, open, abdominal wall, anterior (Acute) Abscess of abdominal wall (Acute) Arthritis (Acute) Chest pain (Acute) Enlarged thyroid (Acute) H/O urinary tract infection (Acute) Low back problem (Acute) Night sweats (Acute) Racing heart beat (Acute) Vitamin B12 deficiency (Acute) Vitamin D deficiency (Acute) Post-op pain (Resolved) Diabetes mellitus (Inactive) Mitral valve prolapse (Inactive) Surgical History History of appendectomy (Resolved) History of cholecystectomy (Resolved) History of foot surgery (Resolved) History of hysterectomy (Resolved) History of right knee surgery (Resolved) History of shoulder surgery (Resolved) S/P foot surgery (Inactive) Family History Mother CAD (coronary artery disease) Heart disease Hypertension Diabetes Myocardial infarction, Onset Age: 78 Hyperlipidemia Father Brain tumor Cancer Hyperlipidemia Hypertension Brother Aortic aneurysm Hyperlipidemia Hypertension Grandmother Arthritis Grandfather Diabetes Social History (Updated 08/23/19 @ 09:[address] James Casey MD) Smoking Status: Never smoker alcohol intake: never substance use type: does not use diet: low carbohydrate caffeine: Yes Type: carbonated beverages Number of servings: 1 what type of physical activity do you participate in: walking frequency: 1-2 times per week seatbelt use: always do you feel safe at home: Yes HPI HPI Surgical H&P: Yes HPI: PING CHUNG, is a 63 F who presents to the office today for Follow-up from a CAT scan of her pelvis. Patient had a CAT scan of her pelvis completed on 08/18/2019. This showed sigmoid diverticulosis and some benign-appearing bilateral inguinal lymph nodes, As well as a small bulge on the left Inguinal area. Patient has had a bulge in this area for some time I actually saw her sometime back and recommended she undergo a laparoscopic left inguinal hernia repair but she wanted to wait. However the last 5 to 6 weeks she has had increasing discomfort in the left inguinal area and noticed that the bulge has actually gotten larger. She has had no change in her bowel or bladder habits. ROS General General: No weight change, appetite, fatigue, colon cancer, breast cancer or weakness HEENT HEENT: No difficulty swallowing, eye injury, eye surgery, swollen glands or hoarseness Endo Endocrine: Yes diabetes mellitus; no thyroid disease, thyroid cancer, Hair loss, heat intolerance or cold intolerance Musc Musculoskeletal: Yes back problems; no arthritis, rheumatoid arthritis, gout or joint pain Cardio Cardiovascular: No murmur, pacemaker, heart disease, atrial fibrillation, high blood pressure, heart attack, heart stent, palpitations, shortness of breat with exertion or chest pain Psych Psychiatric: No depression, anxiety or hearing voices Resp Respiratory: No shortness of breath, No sleep apnea, No cough, No COPD, No asthma, No emphysema, No wheezing Gastro Gastrointestinal: No abdominal pain, No nausea or vomiting, No diarrhea, No constipation, No blood in stool, No acid reflux, No hemorrhoids, No ulcers, No gallbladder problem, No black,tarry stools Baldemar Hematologic: No blood thinners, No blood disorders, No bleeding, No anemia, No blood clots Neuro Neurologic: No weakness Exam Const General: no acute distress, well developed, well hydrated Orientation: oriented to person, oriented to place, oriented to time [facility] Head: normocephalic, atraumatic Ears: external ears normal Mouth: moist mucous membranes Eyes Sclera: sclerae normal Pupils: normal by confrontation Neck Neck: no lymphadenopathy noted Neck mass: No Thyroid: thyroid normal, symmetrical Chest Chest palpation & inspection: normal inspection of the chest Resp Effort & Inspection: normal respiratory effort Auscultation: clear to auscultation bilaterally Percussion: percussion normal Cardio Rate: regular rate Rhythm: regular rhythm Heart Sounds: no murmurs GI Palpation: soft, no hepatosplenomegaly, no masses, tender Rectal Exam: other Other: Small inguinal hernias identified on the left side. Right side still feels stable. Rectal exam deferred. Extrem General: normal to inspection, no clubbing, cyanosis or edema Assessment & Plan Problems 1. Left inguinal hernia K40.90 Plan My plan is to perform a Robotically assisted laparoscopic left Inguinal Hernia repair repair. The planned surgical procedure was discussed extensively with the patient. The risks, benefits, anticipated outcomes and possible complication were mentioned. The patient understands that all hernia repair surgery has a chance of recurrence and/or chronic post-operative pain. My staff has also explained the procedure in understandable terms and the patient was given the option to take printed material concerning the planned procedure. The patient had the opportunity to ask questions concerning the planned procedure. The patient freely consents to the planned procedure. Plan Detail Goals Improve ROM Decrease inflammation and spasm Improve ability to perform ADLs Improve sleep Barriers DDD Facet arthosis Repetitive bending/carrying Coding Level of Care Code Off vis,est,level 2 Diagnoses Left inguinal hernia K40.90 08/23/19 0933 <Electronically signed by James jones MD> Date _ James Casey MD I have re-examined the patient. There are no clinical changes since date of exam.
[2019-09-14] VITALS (10 sets, daily range): BP systolic 136–163; BP diastolic 77–91; PULSE 83–102; RESP 14–18; TEMP 36.3–36.8; O2SAT 93–100; BMI 30.9
--- NOTE | 2019-09-14 10:29 | EKG12_ITS ---
Test Reason : PREOP Blood Pressure : / mmHG Vent. Rate : 084 BPM Atrial Rate : 084 BPM P-R Int : 150 ms QRS Dur : 084 ms QT Int : 358 ms P-R-T Axes : 029 047 027 degrees QTc Int : 423 ms Normal sinus rhythm Normal ECG When compared with ECG of 14-NOV-2016 01:57, No significant change was found Confirmed by INGE VIDALES, LESLYE ([id number]), newspaper or periodical editor PIA ESPINO ([id number]) on 09/18/2019 1:30:30 PM Referred By: James Casey Confirmed By:LESLYE ALCAZAR MD
[2019-09-14] MEDS: Lactated Ringers 1,000 ML 100 ML IV (11:05)
--- NOTE | 2019-09-14 11:18 | DCINST_ITS ---
Discharge Diet: Light diet - advance as tolerated Discharge Activity: Return to Normal Activity, May Drive - when you are no longer taking narcotic pain medications., May Shower - with the bandage in place 1-2 days after surgery. Lifting Restrictions: 20 pounds for 8 weeks. Additional Activity Instructions:: Climbing stairs is fine, walking is encouraged. Sitting in bed may be uncomfortable. Sitting up using your lateral muscles (sitting up sideways) is usually more comfortable. Do not drive, work heavy equipment of sign legal documents for 24 hours. If your hernia repair was an ingunial repair, you may have scrotal swelling, an ice pack and/or athletic support can provide more comfort. Pain medications may cause nausea, you should typically eat light foods as you take your pain medications. Pain medications may also cause constipation. If you have difficulty with this, discuss with your doctor. Call your doctor if your incision/area has: Continuous Slow Oozing, Sudden Increased Bleeding, Increased Pain/ Swelling, Increased Redness, Foul Smelling Discharge Call your doctor if you observe: Fever of 101 or Higher Suture Line Care: Avoid Pulling/Pushing, Avoid Pinching/Bending Additional Dressing/Incision Instructions:: Leave the operative bandage on for 2-3 days. When you remove the bandage, leave the steri-strips on place until your follow up appointment or they fall off. Allergies/Adverse Reactions: Allergies exenatide [From Byetta] Adverse Reaction (Severe, Verified 09/14/19 10:33) dizziness pravastatin [From Pravachol] Adverse Reaction (Severe, Verified 09/14/19 10:33) Myalgias atorvastatin [From Lipitor] Adverse Reaction (Intermediate, Verified 09/14/19 10:33) Muscle pain simvastatin [From Zocor] Adverse Reaction (Intermediate, Verified 09/14/19 10:33) Myalgias Medications to take at Discharge Ezetimibe [Zetia] 10 mg PO DAILY 09/24/14 Liraglutide [Victoza 2-Balbir] 0.1 - 8 mg SQ QHS 09/24/14 metformin 500 mg tablet 500 mg PO DAILY tab 06/20/18 aspirin 81 mg tablet,delayed release 81 mg PO DAILY 08/14/19 oxybutynin chloride 5 mg tablet 1 tab PO DAILY 08/14/19 Colestipol Tablet [Colestid Tablet] 2 g PO DAILY 09/06/19 Metoprolol Tartrate 25 mg PO BID 09/06/19 Oxycodone HCl/Acetaminophen [Percocet 5/325] 1 - 2 tablet PO Q4H PRN PRN 6 Days #30 tablet 09/14/19 The following prescriptions were given: Oxycodone HCl/Acetaminophen [Percocet 5/325] 1 - 2 tablet PO Q4H PRN PRN 6 Days #30 tablet PRN Reason: Pain Transmission Status: Sent to [facility] Primary Care Physician: Leticia Pugh DO [Primary Care Provider] - Test Results: Test results from this visit will be discussed in further detail at your follow- up appointment, if applicable. Please Follow Up With: James Casey MD - [phone] When: Plan to have a follow up appointment in 7 days. Call to schedule.
--- NOTE | 2019-09-14 11:19 | PCM.OPRPT ---
Problem List (1) Left inguinal hernia Status: Acute Report of Operation Date of Procedure: 09/14/19 Pre-Operative Diagnosis: Left inguinal hernia Post-Operative Diagnosis: Same Surgery/Procedure Performed:: Robotically assisted laparoscopic left inguinal hernia repair with mesh Type of Anesthesia:: General Anesthesiologist: Arley Santiago Estimated Blood Loss (mL): < 25 CC Fluids Replaced: 1100 CC lr Description of Procedure: Patient was brought in the operating room. Placed in the supine position. Under excellent general trach intubation a Spence catheter was placed the abdomen was then sterilely prepped and draped in usual fashion. Patient was placed in the headdown and rotated slightly to the left. Went above the umbilicus injected local dissected down to the fascia please a varies needle in the abdomen and insufflated the abdomen to 15 torr #8 trocar was placed without difficulty. It was flank by 2 #8 trochars both placed under direct visualization. Robot was brought in and docked. The mesh and peritoneal suture were then directly placed inside the abdomen. I scored the peritoneum going into a preperitoneal plane I dissected down to Vignesh's ligament identified this dissected laterally bringing back a fairly large indirect inguinal hernia back into the abdominal cavity. The round ligament was then dissected free hemoclips were placed proximally distally and I ligated the round ligament. I dissected further laterally. Pro-accounts receivable analyst mesh was then placed inside the abdomen I unfolded it and placed it medially and inferiorly to Vignesh's over the pubic tubercle and then kept unfolding it laterally. I brought the peritoneum back up it was nice to see that the mesh was nicely adherent to the underlying structures and was not lifting up on the peritoneum. I closed the peritoneum with a 0 Vicryl V lock making sure that I closed all the rents. Suture was cut and was removed from the abdomen without difficulty. Trochars were removed the incisions were closed with subcuticular stitches of 4-0 Monocryl. Steri-Strips were applied. Sterile dressings were applied. Spence catheter was removed. And the patient tolerated the procedure well. - Admit VTE Documentation VTE Present on Admission: No VTE Mechan Device Prophylaxis: SCD's VTE Pharm Prophylaxis ordered?: No Reason prophylaxis not ordered:: Treatment Not Indicated 40xxx-49xxx: [id number] Lap ing hernia repair init
[2019-09-14 11:20] LABS: Bedside Glucose 113 mg/dL (70-110)
[2019-09-14] MEDS: Cefazolin 2 GM in 0.9% Normal Saline 100 ML IV (11:54)
[2019-09-14] MEDS: Bupivacaine Mpf 0.5% 30 ML VIAL (13:33)
[2019-09-14 14:01] LABS: Bedside Glucose 134 mg/dL (70-110)
== END 2019-09-14 18:30 | disposition home or self-care (01) ==
LOC: SDC 10:02 → AC 10:05
PROVIDERS: Anesthesiology; PCP Internal Medicine; Referring Provider Surgery; Visit Provider Surgery
PROC: 0YQ64ZZ Repair Left Inguinal Region, Percutaneous Endoscopic Approach (ICD-10-PCS; CPT 49650; principal; 2019-09-14 12:30)
DX: K40.90 Unilateral inguinal hernia, without obstruction or gangrene, not specified as recurrent (principal); Z11.59 Encounter for screening for other viral diseases; E11.9 Type 2 diabetes mellitus without complications; E78.00 Pure hypercholesterolemia, unspecified; E78.2 Mixed hyperlipidemia; M19.90 Unspecified osteoarthritis, unspecified site; E55.9 Vitamin D deficiency, unspecified; Z79.84 Long term (current) use of oral hypoglycemic drugs; Z79.82 Long term (current) use of aspirin; Z79.899 Other long term (current) drug therapy
CPT/HCPCS: 00840; 49650; S2900; 82962; 87635; 93005; G2023; J7120; A4216; J2405; U0003

== ENCOUNTER → 2019-12-29 13:11 | Outpatient (CLI) | payer OTHER, SELFPAY ==
[2019-10-20 09:32] VITALS: BMI 30.9
--- NOTE | 2019-12-29 13:14 | CT_ITS ---
STUDY: CT ABDOMEN AND PELVIS WITH CONTRAST REASON FOR EXAM: Female, 64 years old. PERSISTENT LLQ PAIN AFTER HERNIA REPAIR RADIATION DOSAGE (If Supplied By Facility): CTDIvol = ( 12.18 ) mGy, DLP = ( 855.97 ) mGycm TECHNIQUE: Transaxial images were obtained from the dome of the diaphragm to the symphysis pubis with oral contrast. Oral and amp; IV READII-CAT and amp; 100ML ISOVUE 300 was administered. Sagittal and coronal images were reconstructed. Individualized dose optimization techniques were used for this CT. COMPARISON: Comparison is made with prior study dated 08/18/2019. FINDINGS: The visualized lung bases are unremarkable. The visualized portions of the heart are within normal limits. There is decreased attenuation of the liver consistent with steatosis. The patient is status post cholecystectomy. Normal spleen. Normal pancreas. Normal bilateral adrenal glands. Normal right kidney. Normal left kidney. Normal visualized stomach. Normal small intestine. There are scattered colonic diverticula consistent with diverticulosis. Fecal material is seen in the cecum. There are surgical clips in the region of the appendix consistent with a prior appendectomy. There is scattered atherosclerotic calcification of the abdominal aorta, without a demonstrated aneurysm. Normal inferior vena cava. Normal retroperitoneum. Normal urinary bladder. There is absence of the uterus consistent with a prior hysterectomy. Normal abdominal wall. Normal osseous structures. CT/Abdomen/Pelvis WITH Contrast IMPRESSION: Scattered sigmoid diverticula. Electronically Signed: Ross Saxena, at 15:10 EDT , Service support ,
[2019-12-29 13:45] LABS: CREATININE FINGERSTICK 0.9 mg/dL (0.55-1.02)
== END ==
PROVIDERS: PCP Internal Medicine; Referring Provider Surgery; Visit Provider Surgery
DX: R10.32 Left lower quadrant pain (principal)
CPT/HCPCS: 74177; Q9967

== ENCOUNTER → 2020-01-08 | Outpatient (CLI) | payer OTHER, SELFPAY ==
[2020-01-04 13:41] VITALS: BMI 30.9
== END | disposition home or self-care (01) ==
LOC: LABSPEC 09:13
PROVIDERS: PCP Internal Medicine; Referring Provider Surgery; Visit Provider Surgery
DX: R19.7 Diarrhea, unspecified (principal); R10.32 Left lower quadrant pain
CPT/HCPCS: 82274; 83630; 87177; 87209; 87493; 87506

== ENCOUNTER 2020-02-05 06:51 | Day surgery (SDC) | payer OTHER, SELFPAY ==
[2020-01-04 13:41] VITALS: BMI 30.9
[2020-02-05] VITALS (7 sets, daily range): BP systolic 114–145; BP diastolic 77–85; PULSE 65–78; RESP 16–18; TEMP 36.2–36.6; O2SAT 95–100; BMI 30.6
--- NOTE | 2020-02-05 | COLBX_PTH ---
PATIENT: PING CHUNG LOC: EN U#:[id number] AGE/SX: 64/F ROOM: RE02/05/[address]: Dr. James Casey MD : 1955 BED: DIS: 02/05/2020 SPEC #: [id number] RECD: 02/05/20 13:47 STATUS: JET [place] #: [id number] CAT: 02/05/20 00:[address]: James Casey DEPT: SURGICAL PATHOLOGY RECD BY: Kavin Serrano ENTERED: 02/06/20 08:43 SP TYPE: COLON BX OTHR DR: Dr. Leticia Pugh, Tissues: COLON BIOPSY Procedures: Surgery Specimen Level IV HEADER OPERATION: Colonoscopy (MAC) PRE-OP DIAGNOSIS: Abdominal pain, diarrhea TISSUE SUBMITTED: Random colon biopsies MICROSCOPIC DIAGNOSIS Colon, random biopsy: Fragments of colonic mucosa, no pathologic diagnosis. SJ:brayden 02/07/20 MICROSCOPIC DESCRIPTION Slides are reviewed. GROSS DESCRIPTION Received in fixative is one container labeled with the patient's name and designated random colon biopsy. The specimen consists of multiple irregular fragments of light presley soft tissue that in aggregate measure 2.5 x 0.5 x 0.1 cm. The specimen is totally submitted in one cassette. / SJ:brayden 02/06/20 TC:4 CPT: 01823
--- NOTE | 2020-02-05 06:00 | HP_ITS ---
Intake Vital Signs 01/04/20 Height 5 ft 5 in 01/04/20 Weight: 186 lb 01/04/20 BMI 30.9 01/04/20 BP 136/86 H 01/04/20 Blood Pressure Location Rt brachial 01/04/20 Respiration 18 Intake Visit Reasons: Follow up CT scan Chief Complaint: f/u CT Ip Architect Required: No Is patient in pain?: Yes (LLQ pain) Allergies exenatide [From Byetta] Adverse Reaction (Severe, Verified 01/04/20 13:18) dizziness pravastatin [From Pravachol] Adverse Reaction (Severe, Verified 01/04/20 13:18) Myalgias atorvastatin [From Lipitor] Adverse Reaction (Intermediate, Verified 01/04/20 13:18) Muscle pain simvastatin [From Zocor] Adverse Reaction (Intermediate, Verified 01/04/20 13:18) Myalgias Medications Ezetimibe [Zetia] 10 mg PO DAILY 09/24/14 [History Confirmed 01/04/20] Liraglutide [Victoza 2-Balbir] 0.1 - 8 mg SQ QHS 09/24/14 [History Confirmed 01/04/20] metformin 500 mg tablet 500 mg PO DAILY tab 06/20/18 [History Confirmed 01/04/20] aspirin 81 mg tablet,delayed release 81 mg PO DAILY 08/14/19 [History Confirmed 01/04/20] Colestipol Tablet [Colestid Tablet] 2 g PO DAILY 09/06/19 [History Confirmed 01/04/20] metoprolol tartrate 25 mg tablet 25 mg PO .COMPLEX 09/21/19 [History Confirmed 01/04/20] oxybutynin chloride 5 mg tablet 5 mg PO DAILY PRN 09/21/19 [History Confirmed 01/04/20] [facility] Medical History Type 2 diabetes mellitus (Chronic) Mixed hyperlipidemia (Chronic) Atypical chest pain (Chronic) Encounter for long-term current use of high risk medication (Chronic) Palpitations (Chronic) Wound, open, abdominal wall, anterior (Acute) Abscess of abdominal wall (Acute) Arthritis (Acute) Chest pain (Acute) Enlarged thyroid (Acute) H/O urinary tract infection (Acute) Left inguinal hernia (Acute) Low back problem (Acute) Night sweats (Acute) Racing heart beat (Acute) Vitamin B12 deficiency (Acute) Vitamin D deficiency (Acute) Post-op pain (Resolved) Diabetes mellitus (Inactive) Mitral valve prolapse (Inactive) Surgical History S/P left inguinal hernia repair (Acute) History of appendectomy (Resolved) History of cholecystectomy (Resolved) History of foot surgery (Resolved) History of hysterectomy (Resolved) History of right knee surgery (Resolved) History of shoulder surgery (Resolved) S/P foot surgery (Inactive) Family History Mother CAD (coronary artery disease) Heart disease Hypertension Diabetes Myocardial infarction, Onset Age: 78 Hyperlipidemia Father Brain tumor Cancer Hyperlipidemia Hypertension Brother Aortic aneurysm Hyperlipidemia Hypertension Grandmother Arthritis Grandfather Diabetes Social History (Updated 01/05/20 @ 10:[address] James Casey MD) Smoking Status: Never smoker alcohol intake: never substance use type: does not use diet: low carbohydrate caffeine: Yes Type: carbonated beverages Number of servings: 1 what type of physical activity do you participate in: walking frequency: 1-2 times per week seatbelt use: always do you feel safe at home: Yes HPI HPI Surgical H&P: Yes HPI: PING CHUNG, is a 64 F who presents to the office today for Follow-up from a CAT scan of her abdomen and pelvis which was completed at [facility] on 12/29/2019. This was done because she was having some left lower quadrant discomfort as well as explosive diarrhea. It did not show any signs of diverticulitis. And I was able to see the mesh and there was no recurrence of a hernia. I last saw this patient on 10/20/2019. I had previously performed a laparoscopic left inguinal hernia repair on her on 09/14/2019. She was feeling some generalized stretching and slight discomfort in the left inguinal area but she did not notice any new bulges at that time. She states this time that she will have episodes of left lower quadrant abdominal pain that will then develop into diarrhea and pelvic pressure she has not noticed any bulges. She has not had any fevers or chills. She has no nausea or vomiting. Her last colonoscopy was done when she was 56 years of age. It was reportedly negative. ROS General General: No weight change, appetite, fatigue, colon cancer, breast cancer or weakness HEENT HEENT: No difficulty swallowing, eye injury, eye surgery, swollen glands or hoarseness Endo Endocrine: Yes diabetes mellitus; no thyroid disease, thyroid cancer, Hair loss, heat intolerance or cold intolerance Musc Musculoskeletal: Yes back problems; no arthritis, rheumatoid arthritis, gout or joint pain Cardio Cardiovascular: No murmur, pacemaker, heart disease, atrial fibrillation, high blood pressure, heart attack, heart stent, palpitations, shortness of breat with exertion or chest pain Psych Psychiatric: No depression, anxiety or hearing voices Resp Respiratory: No shortness of breath, No sleep apnea, No cough, No COPD, No asthma, No emphysema, No wheezing Gastro Gastrointestinal: No abdominal pain, No nausea or vomiting, No diarrhea, No constipation, No blood in stool, No acid reflux, No hemorrhoids, No ulcers, No gallbladder problem, No black,tarry stools Baldemar Hematologic: No blood thinners, No blood disorders, No bleeding, No anemia, No blood clots Neuro Neurologic: No weakness Exam Const General: no acute distress, well developed, well hydrated Orientation: oriented to person, oriented to place, oriented to time [facility] Head: normocephalic, atraumatic Ears: external ears normal Mouth: moist mucous membranes Eyes Sclera: sclerae normal Pupils: normal by confrontation Neck Neck: no lymphadenopathy noted Neck mass: No Thyroid: thyroid normal, symmetrical Chest Chest palpation & inspection: normal inspection of the chest Resp Effort & Inspection: normal respiratory effort Auscultation: clear to auscultation bilaterally Percussion: percussion normal Cardio Rate: regular rate Rhythm: regular rhythm Heart Sounds: no murmurs GI Palpation: soft, no hepatosplenomegaly, no masses, nontender Rectal Exam: other Other: Rectal exam deferred. Extrem General: normal to inspection, no clubbing, cyanosis or edema Assessment & Plan Problems 1. Diarrhea, unspecified type R19.7 2. Left lower quadrant abdominal pain R10.32 Plan I have discussed the above with the patient. I have offered the patient colonoscopy for evaluation. I have explained the risks/benefits of the procedure and described the procedure. I have discussed the risks with the patient, including but not limited to: infection, bleeding, perforation of the GI tract requiring emergency surgery, inability to complete the procedure, injury to any internal organs, complications of anesthesia, etc. - the patient understands and agrees to proceed. I have answered all the patient's questions to the patient's satisfaction and the patient has no further questions. The patient has been given instructions for the colon cleansing preparation. We will be doing random colon biopsies I am also going to obtain some stool studies on her. Orders Orders: Ova and Parasites [id number] 01/04/20 R10.32, R19.7 ENTERIC PATHOGEN PANEL STOOL 01/04/20 R10.32, R19.7 Stool Occult Blood iFOB 01/04/20 R10.32, R19.7 CDIFF (PCR) 01/04/20 R10.32, R19.7 Stool Lactoferrin/WBC 01/04/20 R1., R19.7 Plan Detail Goals Improve ROM Decrease inflammation and spasm Improve ability to perform ADLs Improve sleep Barriers DDD Facet arthosis Repetitive bending/carrying Coding Level of Care Code Off vis,est,level 2 Diagnoses Diarrhea, unspecified type R19.7 ??Diarrhea type: unspecified type Left lower quadrant abdominal pain R10.32 COVID (Procedure Consent) Procedure Criteria Procedure Criteria: Yes Elective The surgeon/proceduralist and patient have discussed in detail the risk of exposure to and/or potential harm posed by the COVID-19 virus with having a surgery/procedure at this time versus the risk of? delaying the surgery/procedure. It is not possible to know either the risk of delaying the surgery or procedure or chance of getting an infection with perfect accuracy, but a joint decision was made between the patient and the surgeon/proceduralist ?to proceed at this time with the scheduled surgery/procedure as indicated on the consent form. I have re-examined the patient. There are no clinical changes since date of exam.
[2020-02-05] MEDS: Lactated Ringers 1,000 ML 100 ML IV (07:27)
[2020-02-05 07:36] LABS: Bedside Glucose 132 mg/dL (70-110)
--- NOTE | 2020-02-05 08:17 | OP.CCLET_ITS ---
02/05/2020 Leticia Pugh [address] [place] [address] Re : Colonoscopy procedure for Radha Ramos Dear Dr. Pugh This procedure was performed on Wednesday, February 05, 2020. My impressions and recommendations are as follows: Impressions : - Non-bleeding internal hemorrhoids. - Diverticulosis in the sigmoid colon. No specimens collected. - The entire examined colon is normal. Biopsied. - The examination was otherwise normal. Recommendations : - Discharge patient to home. - Resume previous diet. - Continue present medications. - Await pathology results. - Repeat colonoscopy in 10 years for screening purposes. - Telephone my office for pathology results in 1 week. My findings are described in the full procedure note, which is enclosed. If I can be of further assistance, please feel free to contact me at Doctor phone number(s): , Fax: [phone], Work: . Sincerely, MD James Sotomayor MD 02/05/2020 8:17:15 AM This report has been signed electronically.
--- NOTE | 2020-02-05 08:17 | OP.COLON_ITS ---
Patient Name: Radha Ramos Procedure Date: 02/05/2020 7:50 AM Date of : 1955 Age: 64 Procedure: Colonoscopy Indications: Abdominal pain in the left lower quadrant, Clinically significant diarrhea of unexplained origin Providers: James Casey MD Referring MD: Leticia Pugh Medicines: See the Anesthesia note for documentation of the administered medications Patient Profile: This is a 64 year old female. Refer to note in patient chart for documentation of history and physical. Last Colonoscopy: 2011. Complications: No immediate complications. Procedure: Pre-Anesthesia Assessment: - Prior to the procedure, a History and Physical was performed, and patient medications and allergies were reviewed. The patient's tolerance of previous anesthesia was also reviewed. The risks and benefits of the procedure and the sedation options and risks were discussed with the patient. All questions were answered, and informed consent was obtained. Prior Anticoagulants: The patient has taken no previous anticoagulant or antiplatelet agents. ASA Grade Assessment: II - A patient with mild systemic disease. After reviewing the risks and benefits, the patient was deemed in satisfactory condition to undergo the procedure. After I obtained informed consent, the scope was passed under direct vision. Throughout the procedure, the patient's blood pressure, pulse, and oxygen saturations were monitored continuously. The adult colonoscope was introduced through the anus and advanced to the cecum, identified by appendiceal orifice and ileocecal valve. The colonoscopy was performed without difficulty. The patient tolerated the procedure well. The quality of the bowel preparation was good. Scope In: 7:59:31 AM Scope Withdrawal Time 0 hours 6 minutes 51 seconds Scope Out: 8:12:32 AM Total Procedure Duration Time 0 hours 13 minutes 1 second Findings: Non-bleeding internal hemorrhoids were found during retroflexion. The hemorrhoids were Grade I (internal hemorrhoids that do not prolapse). A few small-mouthed diverticula were found in the sigmoid colon. No biopsies or other specimens were collected for this exam. The colon (entire examined portion) appeared normal. Biopsies for histology were taken with a cold forceps from the entire colon for evaluation of microscopic colitis. The exam was otherwise without abnormality. Impression: - Non-bleeding internal hemorrhoids. - Diverticulosis in the sigmoid colon. No specimens collected. - The entire examined colon is normal. Biopsied. - The examination was otherwise normal. Recommendation: - Discharge patient to home. - Resume previous diet. - Continue present medications. - Await pathology results. - Repeat colonoscopy in 10 years for screening purposes. - Telephone my office for pathology results in 1 week. Procedure Code(s): --- Professional --- 40950, Colonoscopy, flexible; with biopsy, single or multiple Diagnosis Code(s): --- Professional --- K64.0, First degree hemorrhoids R10.32, Left lower quadrant pain R19.7, Diarrhea, unspecified K57.30, Diverticulosis of large intestine without perforation or abscess without bleeding CPT copyright 2017 [employer]. All rights reserved. The codes documented in this report are preliminary and upon metalworker review may be revised to meet current compliance requirements. MD James Sotomayor MD 02/05/2020 8:17:15 AM This report has been signed electronically. Number of Addenda: 0 Note Initiated On: 02/05/2020 7:50 AM
== END 2020-02-05 09:09 | disposition home or self-care (01) ==
LOC: EN 06:52 → AC 06:52
PROVIDERS: PCP Internal Medicine; Referring Provider Internal Medicine; Visit Provider Surgery
PROC: 0DJD8ZZ Inspection of Lower Intestinal Tract, Via Natural or Artificial Opening Endoscopic (ICD-10-PCS; CPT 45378; principal; 2020-02-05 07:55)
DX: R19.7 Diarrhea, unspecified (principal); Z20.828 Contact with and (suspected) exposure to other viral communicable diseases; K64.0 First degree hemorrhoids; K57.30 Diverticulosis of large intestine without perforation or abscess without bleeding; Z79.899 Other long term (current) drug therapy; Z79.84 Long term (current) use of oral hypoglycemic drugs; Z79.82 Long term (current) use of aspirin; E78.2 Mixed hyperlipidemia; E11.9 Type 2 diabetes mellitus without complications; M19.90 Unspecified osteoarthritis, unspecified site; R10.32 Left lower quadrant pain
CPT/HCPCS: 45380; 82962; 87426; 88305; C9803; J7120; J2405

== ENCOUNTER → 2020-04-29 13:50 | Outpatient (CLI) | payer OTHER, SELFPAY ==
[2020-02-05 07:12] VITALS: BMI 30.6
[2020-04-29 16:24] LABS: Hematocrit 44.2 % (37-47); Hemoglobin 14.7 g/dL (12.0-15.0); Mean Corp Hgb Conc 33.3 g/dL (32-36); Mean Corpuscular Hgb 28.6 pg (27.0-32.0); Mean Platelet Vol. 9.3 fl (6.2-12.0); Platelet Count 325 K/mm3 (150-450); RBC Distribution Width CV 12.5 % (11.6-14.6); RBC Distribution Width SD 39.2 fl (35.1-43.9); Red Blood Count 5.14 M/mm3 (4.2-5.4); White Blood Count 9.1 K/mm3 (4.4-11.0)
[2020-04-29 17:30] LABS: Anion Gap 8 (5-15); BUN 10 mg/dL (7-18); BUN/Creat Ratio 11.5 RATIO (10-20); Calcium,Total 9.2 mg/dL (8.5-10.1); Chloride 105 mmol/L (98-107); Creatinine, Serum 0.87 mg/dL (0.55-1.02); EST Glomerular Filtration Rate 70 mL/min (>60); Est Glom Filt Rate - Afr Amer 85 mL/min (>60); Glucose 85 mg/dL (74-106); Magnesium 1.7 mg/dL (1.6-2.6); Potassium 3.6 mmol/L (3.5-5.1); Sodium Level 140 mmol/L (136-145); T4 Total, Thyroxin 7.6 ug/dL (4.8-13.9); Thyroid Stim Hormone (TSH) 3.37 uIU/mL (0.358-3.74)
== END ==
PROVIDERS: PCP Internal Medicine; Referring Provider Nurse Practitioner Family; Visit Provider Nurse Practitioner Family
DX: R07.89 Other chest pain (principal); I47.1 Supraventricular tachycardia; R00.2 Palpitations
CPT/HCPCS: 36415; 80048; 83735; 84436; 84443; 85027; 93225; 93226

== ENCOUNTER 2020-07-15 02:41 | Observation (INO) | payer OTHER, SELFPAY ==
[2020-05-07 11:24] VITALS: BMI 32.3
[2020-07-15] VITALS (16 sets, daily range): BP systolic 109–173; BP diastolic 71–87; PULSE 66–94; RESP 13–19; TEMP 36.2–37.1; O2SAT 95–100; BMI 32.1; BMI 31.6
--- NOTE | 2020-07-15 02:44 | ED.RN ---
CALLED FOR EKG PER RN REQUEST, PULLED OLD EKGS FOR
--- NOTE | 2020-07-15 03:01 | EKG12_ITS ---
Test Reason : AM EKG Blood Pressure : / mmHG Vent. Rate : 066 BPM Atrial Rate : 066 BPM P-R Int : 148 ms QRS Dur : 086 ms QT Int : 420 ms P-R-T Axes : 031 034 045 degrees QTc Int : 440 ms Normal sinus rhythm Normal ECG When compared with ECG of 15-JUL-2020 02:46, MANUAL COMPARISON REQUIRED, DATA IS UNCONFIRMED Confirmed by INGE VIDALES, LESLYE ([id number]), editor producer PIA ESPINO ([id number]) on 07/16/2020 8:51:34 AM Referred By: CHIDI Confirmed By:LESLYE ALCAZAR MD
--- NOTE | 2020-07-15 03:07 | RAD_ITS ---
HISTORY: chest pain x 3 days, sob. ADDITIONAL HISTORY: None provided. EXAMINATION/TECHNIQUE: XR Chest 1 View AP/PA Number of images including paperwork: 1 COMPARISON: 05/05/2019 FINDINGS: LUNGS AND PLEURA: No consolidation, mass or pleural effusion. CARDIAC SILHOUETTE: Unremarkable. MEDIASTINUM AND GENA: Aortic tortuosity. UPPER ABDOMEN: Unremarkable. SKELETON AND SOFT TISSUES: No acute skeletal findings. Degenerative changes. OTHER DEVICES AND HARDWARE: None. RAD/Chest 1 View (Portable) IMPRESSION: No acute cardiopulmonary abnormality. at 0335 Reported and signed by: Jennifer Serna MD Electronically Signed: Jennifer Serna MD at 3:35 EDT Tel , Service support ,
[2020-07-15 03:08] LABS: Absolute Lymphocyte Count 3.16 X10^3/uL (0.83-4.51); Absolute Neutrophil Count 3.4 X10^3/uL (2.0-7.7); Basophil# 0.03 X10^3/uL; Basophil% 0.4 % (0-1); Eosinophil# 0.14 X10^3/uL; Eosinophils% 1.9 % (0-5); Hematocrit 43.6 % (37-47); Hemoglobin 14.6 g/dL (12.0-15.0); Lymphocyte # 3.16 X10^3/ul (0.83-4.51); Lymphocyte % 43.2 % (19-41); Mean Corp Hgb Conc 33.5 g/dL (32-36); Mean Corpuscular Hgb 28.5 pg (27.0-32.0); Mean Corpuscular Volume 85.2 fL (81-99); Mean Platelet Vol. 9.3 fl (6.2-12.0); Monocyte# 0.55 X10^3/uL; Monocyte% 7.5 % (0-10); NRBC Flagged by Analyzer 0 % (0-5); Neutrophil # 3.42 X10^3/uL (2.7-7.7); Neutrophil % 46.7 % (47-70); Platelet Count 241 K/mm3 (150-450); RBC Distribution Width CV 11.9 % (11.6-14.6); RBC Distribution Width SD 36.8 fl (35.1-43.9); Red Blood Count 5.12 M/mm3 (4.2-5.4); White Blood Count 7.3 K/mm3 (4.4-11.0)
[2020-07-15] MEDS: Aspirin 81 MG TAB.CHEW 324 MG PO (03:11)
[2020-07-15 03:16] LABS: D-Dimer Quantitative (DVT/PE) 0.28 FEU/ug/m (0.27-0.49)
[2020-07-15 03:21] LABS: Anion Gap 8 (5-15); BUN 11 mg/dL (7-18); BUN/Creat Ratio 12.1 RATIO (10-20); Calcium,Total 8.9 mg/dL (8.5-10.1); Chloride 106 mmol/L (98-107); Creatinine, Serum 0.91 mg/dL (0.55-1.02); EST Glomerular Filtration Rate 66 mL/min (>60); Est Glom Filt Rate - Afr Amer 80 mL/min (>60); Estimated Creatinine Clearance 56.94 ml/min; Glucose 143 mg/dL (74-106); Potassium 4.1 mmol/L (3.5-5.1); Sodium Level 140 mmol/L (136-145)
--- NOTE | 2020-07-15 03:28 | EDS_ITS ---
HPI History of Present Illness Chief Complaint: Chest Pain Informant: patient Onset/Context/Timing Onset: Days (2) Activity at onset: gradual Timing: Intermittent and Lasts (Minutes) Quality: Positive for Pressure Location: Substernal and Left Parasternal Worsened By: Nothing Relieved By: Nothing Associated Symptoms: Positive for Nausea, Diaphoresis, Dyspnea, Lightheadedness and Palpitations; Negative for Vomiting, Cough, Fever and Acid Reflux Narrative Narrative: Patient presents with chest pain that has been intermittent over the last 2 days. Patient states it is getting more frequent. Patient states the pain lasts for several minutes. Patient describes the pain as a pressure. Patient states pain is over the substernal and left parasternal area. Patient states the pain radiates into her neck and left arm. Patient states nothing makes it better nothing makes it worse. Patient admits to nausea but denies any vomiting. Patient admits to some shortness of breath and diaphoresis. Patient also admits to some lightheadedness and palpitations. [facility] Medical History Abscess of abdominal wall Arthritis Atypical chest pain Chest pain Chest pressure Diabetes Diabetes mellitus Encounter for long-term current use of high risk medication Enlarged thyroid H/O urinary tract infection Left inguinal hernia Low back problem Mitral valve prolapse Mixed hyperlipidemia Night sweats Palpitations Post-op pain Racing heart beat SVT (supraventricular tachycardia) SVT (supraventricular tachycardia) Type 2 diabetes mellitus Vitamin B12 deficiency Vitamin D deficiency Wound, open, abdominal wall, anterior Home Medications ezetimibe [Zetia] 10 mg PO DAILY 09/24/14 [History Last Taken Unknown] aspirin 81 mg tablet,delayed release 81 mg PO DAILY 08/14/19 [History Last Taken Unknown] oxybutynin chloride 5 mg tablet 5 mg PO DAILY PRN 09/21/19 [History Last Taken Unknown] glimepiride 1 mg tablet 2 mg PO BID tab 05/07/20 [History Last Taken Unknown] metoprolol tartrate 25 mg tablet 75 mg PO .COMPLEX 90 Days #270 tab NS 05/08/20 [Rx Last Taken Unknown] colestipol [Colestid] 2 g PO DAILY 07/15/20 [History Last Taken Unknown] semaglutide [Rybelsus] 7 mg PO DAILY 07/15/20 [History Last Taken Unknown] semaglutide [Rybelsus] mg PO 07/15/20 [History Last Taken Unknown] Allergy/AdvReac Type Severity Reaction Status Date / Time exenatide [From Byetta] AdvReac Severe dizziness Verified 07/15/20 02:48 pravastatin [From Pravachol] AdvReac Severe Myalgias Verified 07/15/20 02:48 atorvastatin [From Lipitor] AdvReac Intermediate Muscle pain Verified 07/15/20 02:48 simvastatin [From Zocor] AdvReac Intermediate Myalgias Verified 07/15/20 02:48 Family History Mother CAD (coronary artery disease) Heart disease Hypertension Diabetes Myocardial infarction, Onset Age: 78 Hyperlipidemia Father Brain tumor Cancer Hyperlipidemia Hypertension Brother Aortic aneurysm Hyperlipidemia Hypertension Grandmother Arthritis Grandfather Diabetes Surgical History History of appendectomy History of cholecystectomy History of foot surgery History of hysterectomy History of right knee surgery History of shoulder surgery S/P foot surgery S/P left inguinal hernia repair Social History Smoking Status: Never smoker alcohol intake: never substance use type: does not use diet: low carbohydrate caffeine: Yes Type: carbonated beverages Number of servings: 1 what type of physical activity do you participate in: walking frequency: 1-2 times per week seatbelt use: always do you feel safe at home: Yes ROS ROS ED Constitutional Constitutional ED: Denies chills or fever(s) Eyes Eyes: Denies blurry vision or change in vision ENT ENT ED: Denies rhinorrhea or sore throat Cardiovascular Cardiovascular: Reports chest pain and palpitations Respiratory/Chest Respiratory/Chest: Reports dyspnea; Denies cough Gastrointestinal Gastrointestinal: Reports nausea; Denies vomiting Genitourinary Genitourinary ED: Denies dysuria or hematuria Musculoskeletal Musculoskeletal: Reports neck pain; Denies back pain Integumentary Denies abscess or rash Neurologic Neurologic: Denies headache(s) or weakness Allergic/Immunologic Allergic/Immunologic ED: Denies mouth swelling or urticaria EXAM Physical Exam Const Vital Signs: 07/15/20 02:42 07/15/20 03:09 07/15/20 03:52 Temperature 97.8 F 98.7 F Temperature Source Temporal Oral Pulse Rate 81 68 Respiratory Rate 17 13 Blood Pressure 173/87 H 167/81 H Blood Pressure Mean 115 109 Pulse Ox 98 97 100 Oxygen Delivery Method Room Air Room Air Room Air 07/15/20 03:54 Temperature Temperature Source Pulse Rate 72 Respiratory Rate Blood Pressure 167/81 H Blood Pressure Mean Pulse Ox Oxygen Delivery Method Positive well nourished, well developed and obese General Appearance ED: well developed Nutritional Appearance: obese HEENT normocephalic and atraumatic Neck supple and no JVD Resp normal respiratory effort and clear to auscultation bilaterally Effort and Inspection: Negative for respiratory distress Cardio regular rate, regular rhythm and no murmurs GI normal to inspection, nondistended, normoactive bowel sounds, soft to palpation, non-tender and non-distended Extremity normal to inspection General Extremety ED: Negative for edema or tenderness General Extremity: Negative for edema Neuro oriented x3, CN's II-XII intact bilaterally and no sensory deficits noted Sensorium / Orientation: awake and alert Motor Exam: strength 5/5 throughout Psych mental status grossly normal Heart Score History: Highly Suspicious ECG: Normal Age: >45 - <65 years Risk Factors: 1 or 2 Risk Factors Troponin: </= Normal Limit Score: 4 MDM MDM MDM Narrative Medical decision making narrative: EKG was obtained. On my interpretation, it showed a normal sinus rhythm with a rate of 75. RI interval, QRS interval, and QTc intervals were all normal. Bagley was normal. There are no acute ST or T wave changes. Portable 1 view chest x-ray was obtained. On my interpretation, lung pretty are clear. There is normal cardiac silhouette. Bony thorax is normal. There is no acute process noted. Radiologist also interpreted the x- ray and agrees. CBC and basic metabolic profile were essentially within normal limits. Troponin was normal. D-dimer was normal. Case was discussed with the hospitalist. He will admit the patient to his service. Patient understood and was agreeable with the plan. All questions were answered. Lab Data Attestation: I reviewed the patient's lab results. Labs: Laboratory Results - last 24 hr 07/15/20 07/15/20 07/15/20 02:51 02:51 02:51 WBC 7.3 RBC 5.12 Hgb 14.6 Hct 43.6 MCV 85.2 MCH 28.5 MCHC 33.5 RDW Std Deviation 36.8 RDW Coeff of Gia 11.9 Plt Count 241 MPV 9.3 Immature Gran % (Auto) 0.300 Neut % (Auto) 46.7 L Lymph % (Auto) 43.2 H Adams % (Auto) 7.5 Eos % (Auto) 1.9 Baso % (Auto) 0.4 Absolute Neuts (auto) 3.4 Absolute Lymphs (auto) 3.16 Nucleated RBC % 0 D-Dimer Quant (PE/DVT) 0.28 Sodium 140 Potassium 4.1 Chloride 106 Carbon Dioxide 26.0 Anion Gap 8 BUN 11 Creatinine 0.91 Estim Creat Clear Calc 56.94 Est GFR (MDRD) Af Amer 80 Est GFR (MDRD) Non-Af 66 BUN/Creatinine Ratio 12.1 Glucose 143 H Calcium 8.9 Troponin I < 0.015 Radiography Chest X-Ray - ED: 1 View, Read by ED Physician, Read by Radiologist and Normal Diagnostic Testing: Radiology Impression Chest X-Ray 07/15/20 03:07 IMPRESSION: No acute cardiopulmonary abnormality. at 0335 Reported and signed by: Jennifer Serna MD Electronically Signed: Jennifer Serna MD at 3:35 EDT Tel , Service support , EKG Initial EKG: Attestation: I personally reviewed and interpreted this EKG as follows: Interpretation: Sinus Rhythm (75) and No Acute Injury Pattern Prior: Unchanged (09/14/2019) Discharge Plan Dx/Rx/DC Orders Clinical Impression: Atypical chest pain Disposition Disposition: Acute Care Hospital [facility]
[2020-07-15] MEDS: Nitroglycerin SL (ED/IMG/CATH) 0.4 MG TABLET SL ×3 (03:54→04:09)
--- NOTE | 2020-07-15 04:25 | PCM.HP.STD ---
[facility] - General General Date of Admission: 07/15/20 HPI Narrative PING CHUNG, is a 64 F with a significant history of SVT who presents with a 2-day history of chest pain. Initially her chest pain was intermittent but now does become more persistent and worse. She describes her chest pain as pressure. The chest pain radiates to bilateral arms and into her jaw. She denies any aggravating or ameliorating factors to the chest pain. She rated her chest pain as 8 out of 10. Associated with her symptoms is nausea; lightheadedness; diaphoresis and shortness of breath. She reports a history of many treadmill stress test because of heart racing. However at this time she thinks he cannot do a treadmill stress test because of ankle problems. [facility] Medical History Abscess of abdominal wall Arthritis Atypical chest pain Chest pain Chest pressure Diabetes Diabetes mellitus Encounter for long-term current use of high risk medication Enlarged thyroid H/O urinary tract infection Left inguinal hernia Low back problem Mitral valve prolapse Mixed hyperlipidemia Night sweats Palpitations Post-op pain Racing heart beat SVT (supraventricular tachycardia) SVT (supraventricular tachycardia) Type 2 diabetes mellitus Vitamin B12 deficiency Vitamin D deficiency Wound, open, abdominal wall, anterior Home Medications ezetimibe [Zetia] 10 mg PO DAILY 09/24/14 [History Last Taken Unknown] aspirin 81 mg tablet,delayed release 81 mg PO DAILY 08/14/19 [History Last Taken Unknown] oxybutynin chloride 5 mg tablet 5 mg PO DAILY PRN 09/21/19 [History Last Taken Unknown] glimepiride 1 mg tablet 2 mg PO BID tab 05/07/20 [History Last Taken Unknown] metoprolol tartrate 25 mg tablet 75 mg PO .COMPLEX 90 Days #270 tab NS 05/08/20 [Rx Last Taken Unknown] colestipol [Colestid] 2 g PO DAILY 07/15/20 [History Last Taken Unknown] semaglutide [Rybelsus] 7 mg PO DAILY 07/15/20 [History Last Taken Unknown] semaglutide [Rybelsus] mg PO 07/15/20 [History Last Taken Unknown] Allergy/AdvReac Type Severity Reaction Status Date / Time exenatide [From Byetta] AdvReac Severe dizziness Verified 07/15/20 02:48 pravastatin [From Pravachol] AdvReac Severe Myalgias Verified 07/15/20 02:48 atorvastatin [From Lipitor] AdvReac Intermediate Muscle pain Verified 07/15/20 02:48 simvastatin [From Zocor] AdvReac Intermediate Myalgias Verified 07/15/20 02:48 Family History Mother CAD (coronary artery disease) Heart disease Hypertension Diabetes Myocardial infarction, Onset Age: 78 Hyperlipidemia Father Brain tumor Cancer Hyperlipidemia Hypertension Brother Aortic aneurysm Hyperlipidemia Hypertension Grandmother Arthritis Grandfather Diabetes Surgical History History of appendectomy History of cholecystectomy History of foot surgery History of hysterectomy History of right knee surgery History of shoulder surgery S/P foot surgery S/P left inguinal hernia repair Social History Smoking Status: Never smoker alcohol intake: never substance use type: does not use diet: low carbohydrate caffeine: Yes Type: carbonated beverages Number of servings: 1 what type of physical activity do you participate in: walking frequency: 1-2 times per week seatbelt use: always do you feel safe at home: Yes ROS ROS Narrative 12 point review of system is negative except as stated in the HPI Vital Signs Vital Signs Vital Signs: 07/15/20 02:42 07/15/20 03:09 07/15/20 03:52 Temperature 97.8 F 98.7 F Temperature Source Temporal Oral Pulse Rate 81 68 Respiratory Rate 17 13 Blood Pressure 173/87 H 167/81 H Blood Pressure Mean 115 109 Pulse Ox 98 97 100 Oxygen Delivery Method Room Air Room Air Room Air 07/15/20 03:54 07/15/20 03:58 07/15/20 04:09 Temperature Temperature Source Pulse Rate 72 81 79 Respiratory Rate Blood Pressure 167/81 H 127/82 H 109/79 Blood Pressure Mean Pulse Ox Oxygen Delivery Method 07/15/20 04:10 07/15/20 04:14 Temperature Temperature Source Pulse Rate 74 94 Respiratory Rate 16 14 Blood Pressure 109/79 114/71 Blood Pressure Mean 89 85 Pulse Ox 98 98 Oxygen Delivery Method Room Air Room Air Physical Exam Narrative Alert and oriented x3 Nontraumatic; normocephalic Lung clear to auscultate Heart sounds S1-S2. No murmur, gallop or rubs. Abdomen bowel sounds present soft, nontender nondistended Extremity without edema cyanosis or clubbing. Lab / Micro Data Result Diagrams: 07/15/20 02:51 07/15/20 02:51 Labs: Laboratory Results - last 24 hr 07/15/20 07/15/20 07/15/20 02:51 02:51 02:51 WBC 7.3 RBC 5.12 Hgb 14.6 Hct 43.6 MCV 85.2 MCH 28.5 MCHC 33.5 RDW Std Deviation 36.8 RDW Coeff of Gia 11.9 Plt Count 241 MPV 9.3 Immature Gran % (Auto) 0.300 Neut % (Auto) 46.7 L Lymph % (Auto) 43.2 H [place] % (Auto) 7.5 Eos % (Auto) 1.9 Baso % (Auto) 0.4 Absolute Neuts (auto) 3.4 Absolute Lymphs (auto) 3.16 Nucleated RBC % 0 D-Dimer Quant (PE/DVT) 0.28 Sodium 140 Potassium 4.1 Chloride 106 Carbon Dioxide 26.0 Anion Gap 8 BUN 11 Creatinine 0.91 Estim Creat Clear Calc 56.94 Est GFR (MDRD) Af Amer 80 Est GFR (MDRD) Non-Af 66 BUN/Creatinine Ratio 12.1 Glucose 143 H Calcium 8.9 Troponin I < 0.015 Radiology Impression Chest X-Ray 07/15/20 03:07 IMPRESSION: No acute cardiopulmonary abnormality. at 0335 Reported and signed by: Jennifer Serna MD Electronically Signed: Jennifer Serna MD at 3:35 EDT Tel , Service support , Assessment & Plan Assessment/Plan (1) Chest pain: QUALIFIERS: Chest pain type: unspecified Qualified Code(s): R07.9 - Chest pain, unspecified PLAN: Chest pain Place on a monitored bed at [facility] Impression of chest x-ray by radiology: No acute cardiopulmonary abnormality. Actual CXR image was independently visualized. No acute cardiopulmonary process was noted. Actual EKG tracing was independently visualized. EKG tracing showed sinus rhythm Received aspirin 325 mg at the emergency department and sublingual nitroglycerin x3. ASA 81 mg p.o. daily continued Morphine as needed for pain ordered We will check lipid panel. Home ezetimibe continued. Colestipol continued. Chemical stress test ordered. Diabetes mellitus Patient with mild hyperglycemia on presentation Hold glimepiride in the setting of keeping patient n.p.o. for stress test. Glucagon-like peptide continued. Accu-Chek every 6 hours. Correction scale insulin ordered. DVT prophylaxis SCD ordered. Visit Charges OBSV E&M: 31251 Initial observation care L2
--- NOTE | 2020-07-15 04:37 | NURSING ---
Dr Gillis aware no change in pain after the three nitro
--- NOTE | 2020-07-15 05:01 | EKG12_ITS ---
Test Reason : CP Blood Pressure : / mmHG Vent. Rate : 075 BPM Atrial Rate : 075 BPM P-R Int : 136 ms QRS Dur : 096 ms QT Int : 394 ms P-R-T Axes : 028 037 026 degrees QTc Int : 439 ms Normal sinus rhythm Normal ECG Confirmed by LEDY VIDALES, MUNA ([id number]), editorial clerk PIA ESPINO ([id number]) on 07/17/2020 8:12:24 AM Referred By: FRANCISCO J Confirmed By:MUNA VILLAFANA MD
[2020-07-15] MEDS: Aspirin E.C. 81 MG Tablet PO (06:37)
[2020-07-15 06:46] LABS: Bedside Glucose 135 mg/dL (70-110)
[2020-07-15 06:53] LABS: Cholesterol 173 mg/dL (200); High Density Lipoprotein 35 mg/dL; Triglycerides 148 mg/dL; Very Low Density Lipoprotein 30 mg/dL (5-40)
--- NOTE | 2020-07-15 12:07 | STRESSREP ---
Stress Test Report Pharmacologic myocardial perfusion stress test. 64-year-old lady with a history of chest pain. Stress protocol: Resting EKG demonstrates normal sinus rhythm with a rate of 74 bpm normal intervals are noted resting blood pressure is 130/78 mmHg. 0.4 mg of regadenoson was infused per usual protocol followed by rapid intravenous saline flush injection continuous EKG monitoring was performed. At rest there were no ST or T wave changes noted to suggest ischemia and at peak infusion nonspecific ST changes were noted which did not meet the criteria for ischemia. No clinical angina was noted. Myocardial perfusion protocol. 12.0 mCi of technetium 99m sestamibi was injected at rest. 0.4 mg of regadenoson was infused per usual protocol. At peak infusion 34.6 mCi of technetium 99m sestamibi was injected stress images were obtained stress and rest images were reconstructed and compared in the short axis vertical long and horizontal long axis. Gated images were also obtained. Perfusion SPECT analysis: Review of the stress images demonstrate normal uptake of tracer noted in all areas of the myocardium. The resting images similarly demonstrate normal uptake of tracer noted in all areas of the myocardium. No evidence of ischemia was noted no previous infarct was noted. Gated SPECT analysis: The gated ejection fraction is noted to be 73%. Conclusion: Normal pharmacologic myocardial perfusion stress test. Preserved ejection fraction.
[2020-07-15 12:11] LABS: Bedside Glucose 118 mg/dL (70-110)
[2020-07-15] MEDS: Ezetimibe 10 MG Tablet PO (12:33)
[2020-07-15] MEDS: Metoprolol Tartrate 25 MG Tablet PO (12:33)
--- NOTE | 2020-07-15 13:27 | PCM.DC ---
Discharge Instructions Follow Up Care Test Results: Test results from this visit will be discussed in further detail at your follow-up appointment, if applicable. Discharge Plan Admission Admit Date/Time: 07/15/20 04:24 Attending Provider: Jorge L Miller Primary Care Provider: Leticia Pugh Discharge Orders/Prescriptions Prescriptions: Continued aspirin 81 mg tablet,delayed release (DR/EC) 81 mg PO DAILY RF: 0 oxybutynin chloride 5 mg tablet 5 mg PO DAILY PRN (Reason: bladder) RF: 0 ezetimibe [Zetia] 10 MG tablet 10 mg PO DAILY RF: 0 glimepiride [Amaryl] 1 mg tablet 2 mg PO BID RF: 0 Rybelsus 7 mg tablet 7 mg PO DAILY RF: 0 Rybelsus 7 mg tablet PO RF: 0 colestipol [Colestid] 1 gram tablet 2 g PO DAILY RF: 0 metoprolol tartrate 25 mg tablet 75 mg PO .COMPLEX 90 Days Qty: 270 RF: 3 Referrals / Follow Up: Leticia Pugh DO [Primary Care Provider] - In 1 Week Larry Ngo NP, [employer] [Nurse Practitioner] - Within 2 Weeks Disposition Disposition (needs filled in before D/C Order can be placed): Home, self care
--- NOTE | 2020-07-15 13:42 | DS.PCM_ITS ---
Documented by User: Debora Malloy NP, [employer]-C 07/15/20 13:49 Providers Date of Admission: 07/15/20 Primary Care Physician: Dr. Leticia Pugh DO Reason For Visit: CHEST PAIN Diagnosis Discharge Diagnosis (1) Chest pain: Status: Acute Code(s): R07.9 - Chest pain, unspecified Qualifiers: Chest pain type: unspecified Qualified Code(s): R07.9 - Chest pain, unspecified Medications at Discharge Home Medications ezetimibe [Zetia] 10 mg PO DAILY 09/24/14 aspirin 81 mg tablet,delayed release 81 mg PO DAILY 08/14/19 oxybutynin chloride 5 mg tablet 5 mg PO DAILY PRN 09/21/19 glimepiride 1 mg tablet 2 mg PO BID tab 05/07/20 metoprolol tartrate 25 mg tablet 75 mg PO .COMPLEX 90 Days #270 tab NS 05/08/20 Rybelsus 7 mg PO DAILY 07/15/20 colestipol [Colestid] 2 g PO DAILY 07/15/20 omeprazole 20 mg PO DAILY #30 cap 07/15/20 Hospital Course Operations None Procedures Stress test Summary of Care Provided Minutes Spent on Discharge: 35 Hospital Course: Patient is a 64-year-old female admitted 07/15/2020 due to chest pain. 1. Atypical chest pain-ACS ruled out. Troponin negative. EKG without ST-T alyce nges. Chest x-ray unremarkable. Patient underwent chemical stress test which was negative for ischemia. Gated ejection fraction 73%. D-dimer negative. Continue baby aspirin. Follow-up with PCP in 1 week. Follow-up with cardiology in 2 weeks for routine follow-up. 2. History of PSVT-on metoprolol. No episodes during admission. 3. Type 2 diabetes mellitus- -on glimepiride, Rybelsus 4. Hyperlipidemia-on colestipol, Zetia. Patient seen and examined prior to discharge. Physical assessment as noted below. Patient is stable for discharge with follow up recommendations as noted above. This patient was seen by eDbora Malloy NP-C under the supervision of Dr. Miller. Physical Exam Const alert, oriented x3 and no apparent distress Orientation / Consciousness: awake, oriented to person, oriented to place and oriented to time HEENT normocephalic and moist oral mucous membranes Eyes PERRL, EOMs intact bilaterally and conjunctivae normal Neck no lymphadenopathy Resp normal respiratory effort and clear to auscultation bilaterally Cardio regular rate, regular rhythm and no murmurs Peripheral Pulses: pulses 2+ throughout GI normal to inspection, nondistended, normoactive bowel sounds, non-tender and non-distended Extremity normal to inspection Skin no rashes or lesions noted Lesions: no lesions Rashes: no rashes Trauma: no lacerations or abrasions Neuro oriented x3 Sensorium / Orientation: awake and alert Psych affect normal ABG / Lab / Microbiology Data Result Diagrams: 07/15/20 02:51 07/15/20 02:51 Laboratory: Laboratory Results - last 24 hr 07/15/20 07/15/20 07/15/20 02:51 02:51 02:51 WBC 7.3 RBC 5.12 Hgb 14.6 Hct 43.6 MCV 85.2 MCH 28.5 MCHC 33.5 RDW Std Deviation 36.8 RDW Coeff of Gia 11.9 Plt Count 241 MPV 9.3 Immature Gran % (Auto) 0.300 Neut % (Auto) 46.7 L Lymph % (Auto) 43.2 H Sequoyah % (Auto) 7.5 Eos % (Auto) 1.9 Baso % (Auto) 0.4 Absolute Neuts (auto) 3.4 Absolute Lymphs (auto) 3.16 Nucleated RBC % 0 D-Dimer Quant (PE/DVT) 0.28 Sodium 140 Potassium 4.1 Chloride 106 Carbon Dioxide 26.0 Anion Gap 8 BUN 11 Creatinine 0.91 Estim Creat Clear Calc 56.94 Est GFR (MDRD) Af Amer 80 Est GFR (MDRD) Non-Af 66 BUN/Creatinine Ratio 12.1 Glucose 143 H Calcium 8.9 Troponin I < 0.015 Triglycerides Cholesterol LDL Cholesterol VLDL Cholesterol HDL Cholesterol POC Glucose 07/15/20 07/15/20 07/15/20 05:54 06:34 08:44 WBC RBC Hgb Hct MCV MCH MCHC RDW Std Deviation RDW Coeff of Gia Plt Count MPV Immature Gran % (Auto) Neut % (Auto) Lymph % (Auto) Sequoyah % (Auto) Eos % (Auto) Baso % (Auto) Absolute Neuts (auto) Absolute Lymphs (auto) Nucleated RBC % D-Dimer Quant (PE/DVT) Sodium Potassium Chloride Carbon Dioxide Anion Gap BUN Creatinine Estim Creat Clear Calc Est GFR (MDRD) Af Amer Est GFR (MDRD) Non-Af BUN/Creatinine Ratio Glucose Calcium Troponin I < 0.015 < 0.015 Triglycerides 148 Cholesterol 173 LDL Cholesterol 108 VLDL Cholesterol 30 HDL Cholesterol 35 L POC Glucose 135 H 07/15/20 12:00 WBC RBC Hgb Hct MCV MCH MCHC RDW Std Deviation RDW Coeff of Gia Plt Count MPV Immature Gran % (Auto) Neut % (Auto) Lymph % (Auto) Sequoyah % (Auto) Eos % (Auto) Baso % (Auto) Absolute Neuts (auto) Absolute Lymphs (auto) Nucleated RBC % D-Dimer Quant (PE/DVT) Sodium Potassium Chloride Carbon Dioxide Anion Gap BUN Creatinine Estim Creat Clear Calc Est GFR (MDRD) Af Amer Est GFR (MDRD) Non-Af BUN/Creatinine Ratio Glucose Calcium Troponin I Triglycerides Cholesterol LDL Cholesterol VLDL Cholesterol HDL Cholesterol POC Glucose 118 H Radiography Diagnostic Testing: Radiology Impression Chest X-Ray 07/15/20 03:07 IMPRESSION: No acute cardiopulmonary abnormality. at 0335 Reported and signed by: Jennifer Serna MD Electronically Signed: Jennifer Serna MD at 3:35 EDT Tel , Service support , Meaningful Use Info Meaningful Use Diagnoses (Choose all that apply): None applicable Discharge Plan Admission Admit Date/Time: 07/15/20 04:24 Attending Provider: Jorge L Miller Primary Care Provider: Leticia Pugh Discharge Orders/Prescriptions Prescriptions: New omeprazole 20 mg capsule,delayed release(DR/EC) 20 mg PO DAILY Qty: 30 RF: 0 Continued aspirin 81 mg tablet,delayed release (DR/EC) 81 mg PO DAILY RF: 0 oxybutynin chloride 5 mg tablet 5 mg PO DAILY PRN (Reason: bladder) RF: 0 ezetimibe [Zetia] 10 MG tablet 10 mg PO DAILY RF: 0 glimepiride [Amaryl] 1 mg tablet 2 mg PO BID RF: 0 Rybelsus 7 mg tablet 7 mg PO DAILY RF: 0 colestipol [Colestid] 1 gram tablet 2 g PO DAILY RF: 0 metoprolol tartrate 25 mg tablet 75 mg PO .COMPLEX 90 Days Qty: 270 RF: 3 Referrals / Follow Up: Leticia Pugh DO [Primary Care Provider] - In 1 Week Larry Ngo [employer], [employer]-C [Nurse Practitioner] - Within 2 Weeks James Garrido MD [NON-STAFF] - Within 1 Month Disposition Disposition (needs filled in before D/C Order can be placed): Home, self care Documented by User: Dr. Jorge L Miller DO 07/15/20 16:16 Providers Date of Admission: 07/15/20 Reason For Visit: CHEST PAIN Medications at Discharge Home Medications ezetimibe [Zetia] 10 mg PO DAILY 09/24/14 aspirin 81 mg tablet,delayed release 81 mg PO DAILY 08/14/19 oxybutynin chloride 5 mg tablet 5 mg PO DAILY PRN 09/21/19 glimepiride 1 mg tablet 2 mg PO BID tab 05/07/20 metoprolol tartrate 25 mg tablet 75 mg PO .COMPLEX 90 Days #270 tab NS 05/08/20 Rybelsus 7 mg PO DAILY 07/15/20 colestipol [Colestid] 2 g PO DAILY 07/15/20 omeprazole 20 mg PO DAILY #30 cap 07/15/20 Hospital Course Summary of Care Provided Minutes Spent on Discharge: 28 Hospital Course: Patient presents with chest pain that been going on for a week. To be intermittent and throughout the day and also at night. To be midsternal radiating to her shoulders and upper jaw. Patient had D-dimer that was normal as well as a stress test. Patient was very concerned obviously about the etiology. Explained that we admitted her to rule out the lethal etiologies being PE and myocardial infarction. Patient states that she never had issues like this before but upon further inquiry, patient stated that she had similar but less severe symptoms years ago where she was having lower midsternal chest pain that appear to be alleviated after she had cholecystectomy. Patient said that she underwent an extensive GI evaluation with Dr. Garrido that did not find any other etiology. I did recommend to her taking PPI as is concerned this could be an esophageal spasm that could be aggravated by reflux. Did explain to her that reflux may not necessarily cause this per se. Patient in regards to her diet from previous, that is already doing everything that she should do in regards to mitigating reflux, including no caffeine, no alcohol, no spicy foods and not eating right before she goes to bed. I encouraged her to continue to follow those dietary recommendations that she is already doing but to take a PPI and to follow-up with GI. I explained the other etiology could be anxiety but she does not endorse any stressful situations at this time. I told her that that would be a diagnosis of exclusion GI would be my concern for this being the cause of her pain such as esophageal spasm. She her expressed understanding. Physical Exam Const alert and oriented x3 Neuro Sensorium / Orientation: awake and alert Psych affect normal ABG / Lab / Microbiology Data Result Diagrams: 07/15/20 02:51 07/15/20 02:51 Discharge Plan Admission Admit Date/Time: 07/15/20 04:24 Attending Provider: Jorge L Miller Primary Care Provider: Leticia Pugh Discharge Orders/Prescriptions Prescriptions: New omeprazole 20 mg capsule,delayed release(DR/EC) 20 mg PO DAILY Qty: 30 RF: 0 Continued aspirin 81 mg tablet,delayed release (DR/EC) 81 mg PO DAILY RF: 0 oxybutynin chloride 5 mg tablet 5 mg PO DAILY PRN (Reason: bladder) RF: 0 ezetimibe [Zetia] 10 MG tablet 10 mg PO DAILY RF: 0 glimepiride [Amaryl] 1 mg tablet 2 mg PO BID RF: 0 Rybelsus 7 mg tablet 7 mg PO DAILY RF: 0 colestipol [Colestid] 1 gram tablet 2 g PO DAILY RF: 0 metoprolol tartrate 25 mg tablet 75 mg PO .COMPLEX 90 Days Qty: 270 RF: 3 Referrals / Follow Up: Leticia Pugh DO [Primary Care Provider] - In 1 Week Larry Ngo [employer], [employer]-C [Nurse Practitioner] - Within 2 Weeks James Garrido MD [NON-STAFF] - Within 1 Month Disposition Disposition (needs filled in before D/C Order can be placed): Home, self care
--- NOTE | 2020-07-15 13:57 | PHA.DC.MR ---
Pharmacy Service has performed discharge medication reconciliation for this patient. The patient's discharge medication list was reviewed for discrepancies and discrepancies were resolved. Home Medications ezetimibe [Zetia] 10 mg PO DAILY 09/24/14 aspirin 81 mg tablet,delayed release 81 mg PO DAILY 08/14/19 oxybutynin chloride 5 mg tablet 5 mg PO DAILY PRN 09/21/19 glimepiride 1 mg tablet 2 mg PO BID tab 05/07/20 metoprolol tartrate 25 mg tablet 75 mg PO .COMPLEX 90 Days #270 tab NS 05/08/20 Rybelsus 7 mg PO DAILY 07/15/20 colestipol [Colestid] 2 g PO DAILY 07/15/20
== END 2020-07-15 13:34 | disposition home or self-care (01) ==
LOC: ED 04:21 → PCU 05:20
PROVIDERS: Admitting Provider Hospitalist; Emergency Provider Emergency Medicine; PCP Internal Medicine
DX: R07.89 Other chest pain (principal); I47.1 Supraventricular tachycardia; Z79.899 Other long term (current) drug therapy; Z79.84 Long term (current) use of oral hypoglycemic drugs; Z79.82 Long term (current) use of aspirin; M19.90 Unspecified osteoarthritis, unspecified site; E78.2 Mixed hyperlipidemia; E11.65 Type 2 diabetes mellitus with hyperglycemia
CPT/HCPCS: 36415; 71045; 78452; 80048; 80061; 82962; 84484; 85025; 85379; 93005; 93017; 99218; 99285; A9500; A4216; G0378; J2785

== ENCOUNTER → 2020-08-20 14:16 | Outpatient (CLI) | payer OTHER, SELFPAY ==
[2020-02-05 07:12] VITALS: BMI 30.6
[2020-07-15 05:05] VITALS: BMI 31.6
--- NOTE | 2020-08-20 14:21 | BI_ITS ---
MAMMOGRAPHY - BILATERAL SCREENING REASON FOR EXAM: Female, 64 years old. Routine annual screening examination. PERTINENT HISTORY: Non-contributory. TECHNIQUE: Digital bilateral breast jeff (3D mammographic acquisition) in the CC and MLO projections. 2-D mediolateral oblique (MLO) and craniocaudad (CC) views of both breasts were obtained. CAD: Full Field Digital Mammography with Computer Added Detection was performed. COMPARISON: Comparison is made with prior study dated 08/18/2019 and 08/15/2018. FINDINGS: Breast Composition: The breasts are heterogeneously dense, which may obscure small masses. There are no dominant masses or suspicious calcifications. No other significant abnormalities are identified. There has been no significant change since the prior study. BI/SCRN MAMM (CAD)W/JEFF BILAT IMPRESSION: Stable bilateral screening mammogram. Yearly follow-up mammogram recommended. (A) ASSESSMENT CATEGORY: BIRADS Category 1: Negative. A letter regarding these results will be sent to the patient by the facility within 30 days. Approximately 10% of breast cancers are not detected by mammography. A normal mammogram should not delay biopsy of a clinically suspicious abnormality. [id number] Electronically Signed: Ross Saxena MD at 15:26 EDT , Service support ,
--- NOTE | 2020-08-20 14:55 | BD_ITS ---
STUDY: DUAL ENERGY X-RAY ABSORPTIOMETRY / DXA REASON FOR EXAM: Female, 64 years old. [id number] TECHNIQUE: Bone Mineral Density (BMD) measurements of lumbar spine and bilateral hips were obtained. COMPARISON: Comparison is made with prior examination dated 07/02/2009. FINDINGS: Lumbar Spine (L1-L4): g/cm2 (1.289) / T-score (1.0) / Z-score (2.5) Findings are suggestive of normal bone density with a low fracture risk. Left Femur Total: g/cm2 (1.134) / T-score (1.0) / Z-score (2.1) Left Femoral Neck: g/cm2 (1.073) / T-score (0.3) / Z-score (1.7) Right Femur Total: g/cm2 (1.135) / T-score (1.0) / Z-score (2.1) Right Femoral Neck: g/cm2 (1.069) / T-score (0.2) / Z-score (1.6) The T-Scores on the most recent prior examination were: Lumbar Spine (L1-L4): There has been worsening of bone density since the previous examination. Left Femur Total: which represents a worsening of 10.7%. Right Femur Total: which represents a worsening of 10.2%. BD/Dexa Bone Density Study IMPRESSION: The patient is considered normal as outlined below according to World Chap[employer] Organization (WHO) criteria with a low fracture risk. There has been worsening of bone density since the previous examination. Reference Information: The T-score is the number of standard deviations above or below the standard which is normal for young adults at their peak bone mineral density. The World Health Organization (WHO) interprets the T-scores as follows: Above -1 Normal bone density Between -1 and -2.5 Osteopenia Equal to / or below -2.5 Osteoporosis As a practical clinical guideline, osteopenia may be graded as follows: Mild -1 through -1.5 Moderate -1.6 through -2.0 Severe -2.1 through -2.4 The Z-score is the number of standard deviations above or below age-matched controls. A Z-score of less than -1.5 would be considered abnormal. References: 1. NIH Osteoporosis and Related Bone Diseases www osteo.org 2. International Society for Clinical Densitometry www iscd.org 3. National Osteoporosis Foundation www nof.org Electronically Signed: Ross Saxena MD at 15:52 EDT , Service support ,
== END ==
PROVIDERS: PCP Internal Medicine; Referring Provider Internal Medicine; Visit Provider Internal Medicine
DX: Z12.31 Encounter for screening mammogram for malignant neoplasm of breast (principal); Z78.0 Asymptomatic menopausal state
CPT/HCPCS: 77063; 77067; 77080

== ENCOUNTER → 2020-08-23 16:05 | Outpatient (CLI) | payer OTHER, SELFPAY ==
[2020-07-15 05:05] VITALS: BMI 31.6
--- NOTE | 2020-08-23 16:09 | MRI_ITS ---
STUDY: MRI LUMBAR SPINE WITHOUT CONTRAST REASON FOR EXAM: Female, 64 years old. pain into L leg TECHNIQUE: Standardized fat and water weighted pulse sequences were obtained in the sagittal and axial following administration of . COMPARISON: None FINDINGS: T12-L1: Normal endplates. Normal disc height, hydration and morphology. Normal bilateral facet joints. Normal central canal and bilateral lateral recesses. Normal bilateral intervertebral neural foramina. Normal lumbar lordosis. There is no substantial scoliosis. Normal conus medullaris that terminates at the L1-L2. There is a small benign intrasacral CSF cyst. L1-2: Normal endplates. Normal disc height, hydration and morphology. Normal bilateral facet joints. Normal central canal and bilateral lateral recesses. Normal bilateral intervertebral neural foramina. L2-3: Normal endplates. Normal disc height, hydration and morphology. Normal bilateral facet joints. Normal central canal and bilateral lateral recesses. Normal bilateral intervertebral neural foramina. L3-4: Normal endplates. Normal disc height, hydration and morphology. Normal bilateral facet joints. Normal central canal and bilateral lateral recesses. Normal bilateral intervertebral neural foramina. L4-5: Normal endplates. Normal disc height, mildly decreased hydration and morphology. Normal bilateral facet joints. Normal central canal and bilateral lateral recesses. Normal bilateral intervertebral neural foramina. L5-S1: Normal endplates. Normal disc height, mildly decreased hydration and morphology. Normal bilateral facet joints. Normal central canal and bilateral lateral recesses. There is mild left foraminal stenosis with patent right foramen. Normal visualized sacral ala. Normal visualized paraspinous soft tissue structures. MRI/Spine Lumbar (Routine) IMPRESSION: 1. Patent canal, no neural compression. 2. Mild left L5-S1 foraminal stenosis. Electronically Signed: Madisyn Duval MD at 19:43 EDT Tel , Service support ,
== END ==
PROVIDERS: PCP Internal Medicine; Referring Provider Orthopaedic Surgery; Visit Provider Orthopaedic Surgery
DX: M51.27 Other intervertebral disc displacement, lumbosacral region (principal); M51.36 Other intervertebral disc degeneration, lumbar region; M79.605 Pain in left leg
CPT/HCPCS: 72148

== ENCOUNTER 2021-01-13 05:19 | Day surgery (SDC) | payer OTHER, SELFPAY ==
--- NOTE | 2021-01-13 | COLBX_PTH ---
PATIENT: PING CHUNG LOC: EN U#:[id number] AGE/SX: 65/F ROOM: RE01/13/[address]: Dr. Tyree Keita DO : 1955 BED: DIS: 01/13/2021 SPEC #: [id number] RECD: 01/13/21 09:14 STATUS: JET [place] #: [id number] CAT: 01/13/21 00:[address]: Tyree Keita DEPT: SURGICAL PATHOLOGY RECD BY: Kavin Serrano ENTERED: 01/13/21 13:28 SP TYPE: COLON BX OTHR DR: Dr. Leticia Pugh DO Tissues: A - Duodenum, NOS B - Esophageal mucous membrane C - Ileum, NOS D - Ascending colon E - COLON BIOPSY Procedures: Special Stain Group II Surgery Specimen Level IV Alcian Blue/PAS (control) HEADER OPERATION: Colonoscopy, EGD ([facility] – [place], [place]) PRE-OP DIAGNOSIS: Constipation, diarrhea, abdominal pain TISSUE SUBMITTED: A ? Biopsy duodenum, B ? Biopsy distal esophagus, C ? Biopsy terminal ileum, D ? Biopsy ascending colon lipoma, E ? Biopsy random colonic MICROSCOPIC DIAGNOSIS A. Duodenum, biopsy: Fragments of duodenal mucosa, no pathologic diagnosis. B. Distal esophagus, biopsy: Fragments of gastric mucosa with moderate chronic inflammation. 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 Negative for dysplasia. See comment. C. Terminal ileum, biopsy: A fragment of small intestinal mucosa, no pathologic diagnosis. D. Ascending colon lipoma, biopsy: Consistent with mucosal lipoma. E. Colon, random biopsy: Fragments of colonic mucosa, no pathologic diagnosis. COMMENT B. Immunohistochemistry ([id number]) for P53 and Ki-67 will be performed and results will be reported separately. Alcian blue/PAS stain with matched control is used in the evaluation of the specimen. MICROSCOPIC DESCRIPTION Slides are reviewed. GROSS DESCRIPTION A - Received in fixative is one container labeled with the patient's name and designated biopsy duodenum. The specimen consists of multiple irregular fragments of light presley soft tissue that in aggregate measure 1.5 x 0.3 x 0.1 cm. The specimen is totally submitted in one cassette. B - Received in fixative is one container labeled with the patient's name and designated biopsy distal esophagus. The specimen consists of multiple irregular fragments of light presley soft tissue that in aggregate measure 0.6 x 0.6 x 0.1 cm. The specimen is totally submitted in one cassette. C - Received in fixative is one container labeled with the patient's name and designated biopsy terminal ileum. The specimen consists of one irregular fragment of light presley soft tissue that measures 0.5 x 0.3 x 0.1 cm. The specimen is totally submitted in one cassette. D - Received in fixative is one container labeled with the patient's name and designated biopsy of ascending lipoma. The specimen consists of multiple irregular fragments of light presley soft tissue that in aggregate measure 0.5 x 0.3 x 0.1 cm. The specimen is totally submitted in one cassette. E - Received in fixative is one container labeled with the patient's name and designated biopsy random colonic. The specimen consists of multiple irregular fragments of light presley soft tissue that in aggregate measure 1.5 x 0.6 x 0.1 cm. The specimen is totally submitted in one cassette. / SJ:rg 01/13/21 TC:1 CPT: 31656 x5, [id number]
--- NOTE | 2021-01-13 | IMM_PTH ---
PATIENT: PING CHUNG LOC: EN U#:[id number] AGE/SX: 65/F ROOM: RE01/13/[address]: Dr. Tyree Keita DO : 1955 BED: DIS: 01/13/2021 SPEC #: [id number] RECD: 01/14/21 14:19 STATUS: JET REQ #: [id number] CAT: 01/13/21 00:[address]: Tyree Keita DEPT: IMMUNOHISTOCHEMISTRY RECD BY: Dasha Lin ENTERED: 01/14/21 14:20 SP TYPE: IMMUNO OTHR DR: Dr. Leticia Pugh DO Tissues: B - Esophagus, NOS Procedures: P53 (initial) KI-67 (add) PHYSICIAN & INSTITUTION [place] [id number] SPECIMEN INFORMATION: Tissue Source: B ? Distal esophagus, biopsy Clinical Info: Constipation, diarrhea, abdominal pain Specimen Number: [id number] CPT code: 77153, 05398 METHODOLOGY: Deparaffinized sections of prefer/formalin-fixed tissue or PAP/DQ stained slides are incubated with monoclonal/polyclonal antibodies/oligonucleotide probes. Localization is made via biotin free immunoperoxidase method. Appropriate controls are performed and reacted as expected. Results on target cell population are indicated in the following table: RESULTS: ANTIBODY / CLONE RESULT Block B P53 (DO-7) negative Ki-67 (30-9) positive, very low These tests were developed and their performance characteristics determined by [facility]. They may not have been cleared or approved by the U.S. Food and Drug Administration. The FDA has determined that such clearance or approval is not necessary. The above immunohistochemical/dualISH markers are ordered and reviewed by the Pathologist. INTERPRETATION: B. Distal esophagus, biopsy: Negative for dysplasia. SVETLANA:brayden 01/15/2021
[2021-01-13] MEDS: Lactated Ringers 1,000 ML 15 ML IV (05:40)
[2021-01-13 05:59] VITALS: BP 134/78; PULSE 79; RESP 16; TEMP 36.1; O2SAT 96; BMI 32.3
--- NOTE | 2021-01-13 06:43 | PCM.HP.BLA ---
History and Physical Date of Admission: 01/13/21 HPI HPI Details: PING CHUNG, is a 65 F who presents to the office today for the evaluation of left lower quadrant pain and alternating constipation and diarrhea. She underwent a colonoscopy approximately a year ago for diarrhea and left lower quadrant pain. As per the patient there were no findings on her colonoscopy. However she still continues to have the left lower quadrant pain. Upon reviewing her colonoscopy report she did have some diverticular disease. Therefore she was placed on antibiotic therapy with Levaquin and Flagyl. After that still continued after taking to antibiotic regimen she was switched to Augmentin for possible diverticulitis. She says she still gets the symptoms in the left lower quadrant. She describes as throbbing pressure resulting in pain. It does improve with her standing up. She also does recall that several years ago she had a left femoral hernia repair in that area and she had a total abdominal hysterectomy after she had uterine prolapse. She also notes that she had a left lower quadrant abscess that underwent incision and drainage with wound VAC placement. She is having alternating liquid stools with fecal urgency and fecal incontinence and episodes of constipation. She has been on MiraLAX unsuccessfully to help her constipation, enemas and fiber therapy with no results. Her symptoms started with new onset constipation alternating with diarrhea, tenesmus and chest pain. Cardiac workup without abnormal. She states she gets food stuck in her esophagus and heartburn. Swallow study performed many years ago with narrowed esophagus noted. LLQ abdominal pain. PCP ordered bowel cleanse due to impaction. Pain did not subside. PCP then attempted ATB for infected pockets. Pain continued to not be resolved and was prescribed flagyl and augmentin started last . If taken as directed she has urgent diarrhea and ribbon like stool. History of hernia repair same general area. Diabetic medications changed from victoza to rybelsus. Rybelsus makes her stomach upset and leaves an aftertaste, so she is switching back to Victoza. Has used carafate in the past in liquid form with effect. ROS ENT ENT: Positive for tinnitus and difficulty swallowing Gastro GI: Positive for abdominal pain, bloating, change in bowel habits, constipation, diarrhea, heartburn and difficulty swallowing Musc Musculoskeletal: Positive for joint pain, back pain, stiffness, Arthritis and sciatica Exam Const General: cooperative and comfortable Nutritional Appearance: average body habitus and well nourished [facility] Head: normal to inspection Ears: hearing grossly normal bilaterally Nose: external nose normal Face and sinus: normal facial exam Mouth: oral mucosae normal Throat: posterior oropharynx normal Eyes General: appearance normal, both eyes and all related structures Neck Neck: normal visual inspection Chest Chest palpation & inspection: normal inspection of the chest and normal palpation of entire chest wall Resp Effort & Inspection: normal respiratory effort Auscultation: Bilateral: Clear to Auscultation Cardio Palpation: normal PMI Rate: regular rate Rhythm: regular rhythm GI Inspection: normal to inspection Auscultation: normal bowel sounds Percussion: normal to percussion Palpation: no hepatosplenomegaly Skin General: no rashes or lesions noted Neuro General: patient alert Extrem General: normal to inspection Psych Affect: normal affect Quality Reporting Tobacco Screening ([facility] 138) Smoking Status: Never smoker Assessment and Plan Assessment and Plan (1) Abdominal pain: Status: Acute Plan - Dr. Clements Friend, DO: Differential diagnosis for her abdominal pain would be an adhesion, unresolved diverticulitis, segmental colitis. She should undergo colonoscopy for evaluation of her lower GI tract. I will not place her on any more antibiotics at this time because I do not feel that she is getting better with that recommendation. (2) Alternating constipation and diarrhea: Status: Acute Plan - Dr. Clements Friend, DO: Her alternating constipation is possibly secondary to IBS and less likely secondary to inflammatory bowel disease. We will evaluate her terminal ileum and we will take biopsies of the terminal ileum and throughout the colon. We may also need empiric budesonide. (3) Chest pain: Status: Acute Plan - Dr. Clements Friend, DO: Chest pain is likely noncardiac. She did have a presence of a hiatal hernia on previous the seen. Will evaluate her upper GI tract with an upper endoscopy.
[2021-01-13 06:51] LABS: Bedside Glucose 160 mg/dL (70-110)
--- NOTE | 2021-01-13 06:59 | OP.EGD_ITS ---
Patient Name: Radha Ramos Procedure Date: 01/13/2021 6:27 AM Date of : 1955 Age: 65 Procedure: Upper GI endoscopy Indications: Epigastric abdominal pain Providers: Tyree Keita DO Medicines: General Anesthesia, See the Anesthesia note for documentation of the administered medications Patient Profile: This is a 65 year old female. Refer to note in patient chart for documentation of history and physical. Patient has symptoms of chronic left lower quadrant abdominal pain and acute epigastric abdominal pain. The symptoms first began 2018. She is status post colonoscopy for diverticulitis one year ago. Complications: No immediate complications. Procedure: Pre-Anesthesia Assessment: - Prior to the procedure, a History and Physical was performed, and patient medications and allergies were reviewed. The risks and benefits of the procedure and the sedation options and risks were discussed with the patient. All questions were answered and informed consent was obtained. Patient identification and proposed procedure were verified by the physician in the pre-procedure area. Mental Status Examination: alert and oriented. Airway Examination: normal oropharyngeal airway and neck mobility. Respiratory Examination: clear to auscultation. CV Examination: normal. Prophylactic Antibiotics: The patient does not require prophylactic antibiotics. Prior Anticoagulants: The patient has taken no previous anticoagulant or antiplatelet agents. After reviewing the risks and benefits, the patient was deemed in satisfactory condition to undergo the procedure. The anesthesia plan was to use moderate sedation / analgesia (conscious sedation). Immediately prior to administration of medications, the patient was re-assessed for adequacy to receive sedatives. The heart rate, respiratory rate, oxygen saturations, blood pressure, adequacy of pulmonary ventilation, and response to care were monitored throughout the procedure. The physical status of the patient was re-assessed after the procedure. After obtaining informed consent, the endoscope was passed under direct vision. Throughout the procedure, the patient's blood pressure, pulse, and oxygen saturations were monitored continuously. The gastroscope was introduced through the mouth, and advanced to the second part of duodenum. The upper GI endoscopy was accomplished without difficulty. The patient tolerated the procedure well. Moderate Sedation: Moderate (conscious) sedation was administered by the endoscopy nurse and supervised by the endoscopist. The patient's oxygen saturation, heart rate, blood pressure and response to care were monitored. Total physician intraservice time was 15 minutes. Scope In: 6:50:15 AM Scope Out: 6:54:52 AM Total Procedure Duration Time 0 hours 4 minutes 37 seconds Findings: LA Grade A (one or more mucosal breaks less than 5 mm, not extending between tops of 2 mucosal folds) esophagitis with no bleeding was found 34 to 35 cm from the incisors. Biopsies were taken with a cold forceps for histology. Verification of patient identification for the specimen was done. Estimated blood loss was minimal. Food (residue) was found in the entire examined stomach. Localized mild inflammation characterized by congestion (edema) was found in the first portion of the duodenum. Biopsies were taken with a cold forceps for histology. Verification of patient identification for the specimen was done. Estimated blood loss was minimal. Impression: - LA Grade A reflux esophagitis. Biopsied. - Food (residue) in the stomach. - Duodenitis. Biopsied. Recommendation: - Discharge patient to home. - Resume previous diet. - Continue present medications. - Await pathology results. - Return to my office in 2 weeks. Procedure Code(s): --- Professional --- 60998, Esophagogastroduodenoscopy, flexible, transoral; with biopsy, single or multiple G0500, Moderate sedation services provided by the same physician or other qualified health healthcare insurance sales agent performing a gastrointestinal endoscopic service that sedation supports, requiring the presence of an independent trained observer to assist in the monitoring of the patient's level of consciousness and physiological status; initial 15 minutes of intra-service time; patient age 5 years or older (additional time may be reported with 76931, as appropriate) Diagnosis Code(s): --- Professional --- K21.0, Gastro-esophageal reflux disease with esophagitis K29.80, Duodenitis without bleeding CPT copyright 2017 [employer]. All rights reserved. The codes documented in this report are preliminary and upon laborer prestressed concrete review may be revised to meet current compliance requirements. Tyree Keita DO 01/13/2021 6:58:53 AM This report has been signed electronically. Number of Addenda: 1 Note Initiated On: 01/13/2021 6:27 AM Addendum Number: 1 Addendum Date: 11/07/2021 6:16:01 AM MAC was used instead of moderate sedation for this patient. Tyree Keita DO 11/07/2021 6:16:06 AM This report has been signed electronically.
--- NOTE | 2021-01-13 07:00 | OP.CCLET_ITS ---
11/07/2021 Leticia Pugh [address] [place] [address] Re : Upper GI endoscopy procedure for Radha Ramos Dear Dr. Pugh This procedure was performed on Wednesday, January 13, 2021. My impressions and recommendations are as follows: Impressions : - LA Grade A reflux esophagitis. Biopsied. - Food (residue) in the stomach. - Duodenitis. Biopsied. Recommendations : - Discharge patient to home. - Resume previous diet. - Continue present medications. - Await pathology results. - Return to my office in 2 weeks. My findings are described in the full procedure note, which is enclosed. If I can be of further assistance, please feel free to contact me at . Sincerely, Tyree Keita, 01/13/2021 6:58:53 AM This report has been signed electronically.
[2021-01-13 07:25] VITALS: BP 118/72; BP 134/78; PULSE 70; RESP 16; TEMP 36.1; O2SAT 16
[2021-01-13 07:30] VITALS: BP 127/76; BP 134/78; PULSE 70; RESP 16; O2SAT 96
--- NOTE | 2021-01-13 07:31 | OP.COLON_ITS ---
Patient Name: Radha Ramos Procedure Date: 01/13/2021 6:55 AM Date of : 1955 Age: 65 Procedure: Colonoscopy Indications: Abdominal pain in the left lower quadrant Providers: Tyree Keita DO Patient Profile: This is a 65 year old female. Refer to note in patient chart for documentation of history and physical. Patient has symptoms of chronic left lower quadrant abdominal pain and acute epigastric abdominal pain. The symptoms first began 2018. She is status post colonoscopy for diverticulitis one year ago. Last Colonoscopy: 3 years ago. Complications: No immediate complications. Procedure: Pre-Anesthesia Assessment: - Prior to the procedure, a History and Physical was performed, and patient medications and allergies were reviewed. The risks and benefits of the procedure and the sedation options and risks were discussed with the patient. All questions were answered and informed consent was obtained. Patient identification and proposed procedure were verified by the physician in the pre-procedure area. Mental Status Examination: alert and oriented. Airway Examination: normal oropharyngeal airway and neck mobility. Respiratory Examination: clear to auscultation. CV Examination: normal. Prophylactic Antibiotics: The patient does not require prophylactic antibiotics. Prior Anticoagulants: The patient has taken no previous anticoagulant or antiplatelet agents. After reviewing the risks and benefits, the patient was deemed in satisfactory condition to undergo the procedure. The anesthesia plan was to use moderate sedation / analgesia (conscious sedation). Immediately prior to administration of medications, the patient was re-assessed for adequacy to receive sedatives. The heart rate, respiratory rate, oxygen saturations, blood pressure, adequacy of pulmonary ventilation, and response to care were monitored throughout the procedure. The physical status of the patient was re-assessed after the procedure. ileum. Moderate Sedation: Moderate (conscious) sedation was administered by the endoscopy nurse and supervised by the endoscopist. The patient's oxygen saturation, heart rate, blood pressure and response to care were monitored. Total physician intraservice time was 15 minutes. Scope In: 7:01:01 AM Scope Withdrawal Time 0 hours 14 minutes 51 seconds Scope Out: 7:19:19 AM Total Procedure Duration Time 0 hours 18 minutes 18 seconds Findings: The perianal and digital rectal examinations were normal. There was a medium-sized lipoma, 15 mm in diameter, in the ascending colon. This was biopsied with a cold jumbo forceps for histology. Verification of patient identification for the specimen was done. Estimated blood loss was minimal. The sigmoid colon was mildly redundant. This was biopsied with a cold forceps for histology. Verification of patient identification for the specimen was done. Estimated blood loss was minimal. A patchy area of the terminal ileum was congested. Verification of patient identification for the specimen was done. Estimated blood loss was minimal. The entire examined colon appeared normal on direct and retroflexion views. Random biopsies were taken throughout the colon to rule out microscopic colitis. Impression: - Medium-sized lipoma in the ascending colon. Biopsied. - Redundant colon. - Congested mucosa in the terminal ileum. - The entire examined colon is normal on direct and retroflexion views. Recommendation: - Discharge patient to home. - Resume previous diet. - Await pathology results. - Return to my office in 2 weeks. - Repeat colonoscopy in 5 years for surveillance. - Continue present medications. Procedure Code(s): --- Professional --- 79042, Colonoscopy, flexible; with biopsy, single or multiple Diagnosis Code(s): --- Professional --- D17.5, Benign lipomatous neoplasm of intra-abdominal organs K63.89, Other specified diseases of intestine CPT copyright 2017 [employer]. All rights reserved. The codes documented in this report are preliminary and upon paint maker review may be revised to meet current compliance requirements. Tyree Keita DO 01/13/2021 7:31:03 AM This report has been signed electronically. Number of Addenda: 1 Note Initiated On: 01/13/2021 6:55 AM Addendum Number: 1 Addendum Date: 11/07/2021 6:16:18 AM MAC was used instead of moderate sedation for this patient. Tyree Keita DO 11/07/2021 6:16:31 AM This report has been signed electronically.
--- NOTE | 2021-01-13 07:32 | OP.CCLET_ITS ---
11/07/2021 Leticia Pugh [address] [place] [address] Re : Colonoscopy procedure for Radha Ramos Dear Dr. Pugh This procedure was performed on Wednesday, January 13, 2021. My impressions and recommendations are as follows: Impressions : - Medium-sized lipoma in the ascending colon. Biopsied. - Redundant colon. - Congested mucosa in the terminal ileum. - The entire examined colon is normal on direct and retroflexion views. Recommendations : - Discharge patient to home. - Resume previous diet. - Await pathology results. - Return to my office in 2 weeks. - Repeat colonoscopy in 5 years for surveillance. - Continue present medications. My findings are described in the full procedure note, which is enclosed. If I can be of further assistance, please feel free to contact me at . Sincerely, Tyree Keita, 01/13/2021 7:31:03 AM This report has been signed electronically.
[2021-01-13 07:35] VITALS: BP 130/78; BP 134/78; PULSE 71; RESP 16; O2SAT 97
[2021-01-13 07:40] VITALS: BP 128/74; BP 134/78; PULSE 74; RESP 16; TEMP 36.6; O2SAT 96
[2021-01-13 08:17] VITALS: BP 134/78
== END 2021-01-13 08:18 ==
LOC: EN 05:21 → AC 05:23
PROVIDERS: PCP Internal Medicine; Referring Provider Internal Medicine; Visit Provider Internal Medicine Gastroenterology
PROC: 0DJD8ZZ Inspection of Lower Intestinal Tract, Via Natural or Artificial Opening Endoscopic (ICD-10-PCS; CPT 45378; principal; 2021-01-13 06:25)
DX: K29.80 Duodenitis without bleeding (principal); K21.00 Gastro-esophageal reflux disease with esophagitis, without bleeding; Q43.8 Other specified congenital malformations of intestine; K63.89 Other specified diseases of intestine; D17.79 Benign lipomatous neoplasm of other sites; E11.9 Type 2 diabetes mellitus without complications; E04.9 Nontoxic goiter, unspecified; E78.2 Mixed hyperlipidemia; Z79.82 Long term (current) use of aspirin; Z79.899 Other long term (current) drug therapy
CPT/HCPCS: 43239; 45380; 82962; 88305; 88313; 88341; 88342; J7120; J2405

== ENCOUNTER 2021-03-25 15:40 | Outpatient (CLI) | payer OTHER, SELFPAY ==
[2021-03-25 17:51] LABS: Anion Gap 7 (5-15); BUN 14 mg/dL (7-18); BUN/Creat Ratio 16.3 RATIO (10-20); Chloride 104 mmol/L (98-107); Creatinine, Serum 0.86 mg/dL (0.55-1.02); EST Glomerular Filtration Rate 71 mL/min (>60); Est Glom Filt Rate - Afr Amer 85 mL/min (>60); Glucose 108 mg/dL (74-106); Magnesium 2.1 mg/dL (1.6-2.6); Potassium 3.6 mmol/L (3.5-5.1); Sodium Level 138 mmol/L (136-145)
== END 2021-03-25 23:59 | disposition short-term general hospital (02) ==
PROVIDERS: PCP Internal Medicine; Referring Provider Nurse Practitioner Family; Visit Provider Nurse Practitioner Family
DX: R25.2 Cramp and spasm (principal)
CPT/HCPCS: 36415; 80048; 83735

== ENCOUNTER 2021-04-14 14:10 | Outpatient (CLI) | payer OTHER, SELFPAY ==
--- NOTE | 2021-04-14 14:20 | MRI_ITS ---
STUDY: MRI LEFT HIP REASON FOR EXAM: Lateral left hip pain for one year, no specific injury. TECHNIQUE: Standardized fat and water weighted pulse sequences were obtained in all 3 orthogonal planes. COMPARISON: Radiographs 05/28/2020. FINDINGS: Normal hip joint without articular joint space narrowing. Normal acetabulum. Normal labrum. Normal femoral head. Normal femoral neck and intratrochanteric region. There is peritendinitis of the anterior aspect of the left gluteus medius tendon (inversion recovery coronal images 13-15) without discrete tendon tear. Normal gluteus minimus and iliopsoas tendons and distal insertions. There is no trochanteric, iliopsoas or iliopectineal bursitis. Normal superior and inferior pubic rami. Normal pubic symphysis. Normal ischial tuberosity. Normal origin of the hamstring tendons. Normal visualized iliac wing, sacroiliac joint, and sacral ala. Normal visualized soft tissue structures of the pelvis. MRI/Lower Ext Joint Only (Routine) IMPRESSION: Peritendinitis of the anterior aspect of the left gluteus medius tendon. No demonstrated left greater trochanteric bursitis. Electronically Signed: Thong Aguilera MD at 11:48 EST ,
== END 2021-04-14 23:59 | disposition home or self-care (01) ==
PROVIDERS: PCP Internal Medicine; Visit Provider Nurse Practitioner Family
DX: M25.552 Pain in left hip (principal); M70.72 Other bursitis of hip, left hip
CPT/HCPCS: 73721

== ENCOUNTER → 2021-07-04 | Outpatient (CLI) | payer OTHER, SELFPAY ==
--- NOTE | 2021-07-04 15:12 | US_ITS ---
EXAM: US PELVIS TRANSABDOMINAL, COMPLETE CLINICAL INDICATION: PELVIC PAIN-LLQ TECHNIQUE: Transabdominal pelvic ultrasound was performed with grayscale and color Doppler imaging. This report was created using [employer] report generation technology. COMPARISON: None. FINDINGS: UTERUS/CERVIX: Hysterectomy. OVARIES: Not identified. FREE FLUID: None. BLADDER: Moderately distended urinary bladder, 6.3 cm x 4.8 cm x 8 cm. Anechoic bladder contents, no debris. The bladder is collapsed on the transvaginal exam. US/Pelvic (Non ) IMPRESSION: Hysterectomy. No suspicious adnexal mass or fluid. Unremarkable urinary bladder. Electronically Signed: Desirae Kaufman MD at 7:52 EDT ,
== END | disposition home or self-care (01) ==
LOC: US 15:09
PROVIDERS: PCP Internal Medicine; Referring Provider Internal Medicine; Visit Provider Internal Medicine
DX: R10.2 Pelvic and perineal pain (principal)
CPT/HCPCS: 76856

== ENCOUNTER → 2021-08-21 | Outpatient (CLI) | payer OTHER, SELFPAY ==
--- NOTE | 2021-08-21 14:00 | BI_ITS ---
MAMMOGRAPHY - BILATERAL SCREENING REASON FOR EXAM: Female, 65 years old. Routine annual screening examination. PERTINENT HISTORY: Non-contributory. TECHNIQUE: Digital bilateral breast jeff (3D mammographic acquisition) in the CC and MLO projections. 2-D mediolateral oblique (MLO) and craniocaudad (CC) views of both breasts were obtained. CAD: Full Field Digital Mammography with Computer Added Detection was performed. COMPARISON: Comparison is made with prior study dated 08/20/2020 and 08/18/2019. FINDINGS: Breast Composition: The breasts are heterogeneously dense, which may obscure small masses. There are no dominant masses or suspicious calcifications. Stable benign-appearing bilateral axillary lymph nodes. No other significant abnormalities are identified. There has been no significant change since the prior study. BI/SCRN MAMM (CAD)W/JEFF BILAT IMPRESSION: Stable bilateral screening mammogram. Yearly follow-up mammogram recommended. (A) ASSESSMENT CATEGORY: BIRADS Category 2: Benign. A letter regarding these results will be sent to the patient by the facility within 30 days. Approximately 10% of breast cancers are not detected by mammography. A normal mammogram should not delay biopsy of a clinically suspicious abnormality. [id number] Electronically Signed: Ross Saxena MD at 15:53 EDT ,
== END | disposition home or self-care (01) ==
LOC: OPBI 13:56
PROVIDERS: PCP Internal Medicine; Visit Provider Internal Medicine
DX: Z12.31 Encounter for screening mammogram for malignant neoplasm of breast (principal)
CPT/HCPCS: 77063; 77067

== ENCOUNTER → 2021-09-26 | Outpatient (CLI) | payer OTHER, SELFPAY ==
[2021-09-26 14:36] LABS: Anion Gap 7 (5-15); BUN 11 mg/dL (7-18); Chloride 107 mmol/L (98-107); EST Glomerular Filtration Rate 59 mL/min (>60); Est Glom Filt Rate - Afr Amer 72 mL/min (>60); Glucose 167 mg/dL (74-106); Potassium 3.8 mmol/L (3.5-5.1); Sodium Level 139 mmol/L (136-145); T4 Total, Thyroxin 8.4 ug/dL (4.8-13.9); Thyroid Stim Hormone (TSH) 2.71 uIU/mL (0.358-3.74)
== END | disposition home or self-care (01) ==
LOC: LAB 13:25
PROVIDERS: PCP Internal Medicine; Referring Provider Nurse Practitioner Family; Visit Provider Nurse Practitioner Family
DX: R19.7 Diarrhea, unspecified (principal); R53.83 Other fatigue
CPT/HCPCS: 36415; 80048; 83735; 84436; 84443

== ENCOUNTER → 2021-10-24 | Outpatient (CLI) | payer OTHER, SELFPAY ==
[2021-10-24 16:40] LABS: Erythrocyte Sedimentation Rate 8 mm/hr (0-30)
[2021-10-24 16:49] LABS: CRP < 2.90 mg/L (0.0-3.0); LDH 175 U/L (84-246)
[2021-10-27 13:07] LABS: Anti-Centromere B Ab <0.2 AI (0.0-0.9); Anti-Chromatin <0.2 AI (0.0-0.9); Anti-Jo <0.2 AI (0.0-0.9); Anti-Scleroderma-70 AB <0.2 AI (0.0-0.9); RNP Ab 0.6 AI (0.0-0.9); SJOGREN'S Anti-SS-A test < 0.2 AI (0.0-0.9); SJOGREN'S Anti-SS-B test < 0.2 AI (0.0-0.9); Smith Ab <0.2 AI (0.0-0.9)
[2021-10-28 08:04] LABS: Anti-dsDNA Ab <1 IU/mL (0-9)
[2021-10-28 09:08] LABS: Endomysial Antibody IgA Negative (Negative)
[2021-10-28 09:21] LABS: Immunoglobulin A 334 mg/dL (87-352); t-Transglutaminase IgA <2 U/mL (0-3)
[2021-10-31 12:08] LABS: Cytoplasmic Ab (C-ANCA) <1:20 titer (Neg:<1:20); Immunoglobulin A 318 mg/dL (87-352); Immunoglobulin E 6 IU/mL (6-495); Immunoglobulin G 1033 mg/dL (586-1602)
[2021-10-31 17:30] LABS: Immunoglobulin M 16 mg/dL (26-217); Perinuclear Ab (P-ANCA) <1:20 titer (Neg:<1:20)
== END | disposition home or self-care (01) ==
LOC: LAB 15:48
PROVIDERS: PCP Internal Medicine; Referring Provider Nurse Practitioner Adult Health; Visit Provider Nurse Practitioner Adult Health
DX: R19.7 Diarrhea, unspecified (principal); R53.83 Other fatigue
CPT/HCPCS: 36415; 82784; 82785; 83516; 83615; 85652; 86140; 86225; 86235; 86255; 86256

== ENCOUNTER → 2021-10-31 | Outpatient (CLI) | payer OTHER, SELFPAY ==
[2021-11-06 14:01] LABS: Pancreatic Elastase, Fecal > 500 (>200)
[2021-11-09 14:07] LABS: Calprotectin, Stool 89 ug/g (0-120)
== END | disposition home or self-care (01) ==
LOC: LAB 14:07
PROVIDERS: PCP Internal Medicine; Referring Provider Nurse Practitioner Adult Health; Visit Provider Nurse Practitioner Adult Health
DX: K58.9 Irritable bowel syndrome, unspecified (principal); R19.7 Diarrhea, unspecified
CPT/HCPCS: 82653; 83630; 83993; 87506

== ENCOUNTER 2022-02-05 10:34 | Day surgery (SDC) | payer OTHER, SELFPAY ==
--- NOTE | 2022-02-05 | ESO_PTH ---
PATIENT: PING CHUNG LOC: EN U#:[id number] AGE/SX: 66/F ROOM: RE02/05/[address]: Dr. Tyree Keita DO : 1955 BED: DIS: 02/05/2022 SPEC #: [id number] RECD: 02/05/22 13:31 STATUS: JET [place] #: [id number] CAT: 02/05/22 00:[address]: Tyree Keita DEPT: SURGICAL PATHOLOGY RECD BY: Kavin Serrano ENTERED: 02/06/22 08:55 SP TYPE: LEANDRO HIGGINS DR: Dr. 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 Distal esophagus biopsy, B ? Gastric antrum biopsy for H. pylori and path MICROSCOPIC DIAGNOSIS A. Distal esophagus, biopsy: Fragments of gastroesophageal mucosa with chronic inflammation. Intestinal metaplasia (goblet cell metaplasia) not identified. See comment. B. Gastric antrum, biopsy: Moderate gastritis. See microscopic description and comment. SJ:brayden 02/09/2022 COMMENT A. Alcian blue/PAS stain with matched control is used in the evaluation of the specimen. B. The results of immunohistochemistry for Helicobacter pylori will be reported separately ([id number]). MICROSCOPIC DESCRIPTION Slides are reviewed. B. The specimen shows fragments of gastric mucosa with chronic inflammatory cell infiltrates in the lamina propria consisting of lymphocytes and plasma cells, consistent with moderate chronic gastritis. GROSS DESCRIPTION A - Received in fixative is one container labeled with the patient's name and designated distal esophagus. The specimen consists of multiple irregular fragments of light presley soft tissue that in aggregate measure 1 x 0.5 x 0.1 cm. The specimen is totally submitted in one cassette. B - Received in fixative is one container labeled with the patient's name and designated gastric antrum. The specimen consists of two irregular fragments of light presley soft tissue that in aggregate measure 0.6 x 0.5 x 0.1 cm. The specimen is totally submitted in one cassette. / AM:brayden 02/06/2022 TC:3 CPT: 42705 x2, 31746
[2022-02-05 11:03] VITALS: BP 140/88; PULSE 80; RESP 18; TEMP 36.1; O2SAT 100; BMI 31.6
[2022-02-05 11:35] LABS: Bedside Glucose 138 mg/dL (74-106)
--- NOTE | 2022-02-05 11:35 | PCM.HP.BLA ---
History and Physical Date of Admission: 02/05/22 PING CHUNG, is a 66 F who presents to the office today for f/u diarrhea. She is understandably very frustrated; the severity and frequency of the diarrhea plus the abdominal pain/cramps impacts her QOL and her ability to go anywhere. May have a normal BM in the morning, but then very loose or watery stool later in the morning, gets pain in lower abd as well as cramping, resolves an hour or so after the diarrhea. No hematochezia or melena. No relief with metamucil, stool softener, miralax, linzess, lotronex. Tried colon prep to see if starting over would resolve any underlying constipation and therefore overflow diarrhea, but no relief. Has been on colestipol x yrs for hyperlipidemia. 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 Medium sized lipoma (confirmed by biopsy) in ascending colon; Redundant colon; Congested mucosa in terminal ileum. No pathology on bxs of TI, colon, duodenum. US pelvis 04.01.[address] Aden Garcia for pelvic pain found surgically absent uterus. Ovaries not seen r/t overlying bowel. No areas of bowel peristalsis. Increased loop of bowel seen right and left adnexa. ROS Const Constitutional: No fatigue ENT ENT: No difficulty swallowing Gastro GI: Positive for abdominal pain, bloating, diarrhea and excessive flatus; No belching, change in bowel habits, change in stool character, coffee ground emesis, constipation, cramping, heartburn, difficulty swallowing, feeling full early, incontinent of stools, Vomiting blood/hematemesis, Blood in stool, loose stools, Black,tarry stools, nausea/dyspepsia, pain with swallowing, vomiting or other Musc Musculoskeletal: No joint pain Skin Skin: No yellowing of the eye or itchy eyes Psych Psychiatric: No anxiety and No depression Endo Endocrine: No fatigue Aller/Imm Allergy/Immunologic: No itchy eyes Baldemar/Lymp Hematologic/Lymphatic: No easy bleeding or easy bruising Exam Const General: cooperative and comfortable Nutritional Appearance: obese Orientation: alert, awake and oriented x3 Quality Reporting Tobacco Screening ([facility] 138) Smoking Status: Never smoker Assessment and Plan Assessment and Plan (1) Irritable bowel syndrome with diarrhea: ?Status:?Acute ?Plan: We reviewed her workup, went over lab results Xifaxan 550 mg tid x 2 wks, samples #18 pills provided, rx sent in, will need prior auth She will be scheduled for one yr f/u EGD to reeval Spencer's, w/ f/u 2 wks later (2) Spencer esophagus: ?Status:?Acute ?Plan: as above ? ? ? Medications: New rifaximin (Xifaxan) 550 mg? PO TID 42 tabs 0RF IBS-D ? ? Discontinued linaclotide (Linzess) ?? Discontinued Reason:? Pt no longer taking 72 mcg? PO QAM 90 caps 3RF ? ? I have examined the patient and the H&P has been reviewed. There are no clinical changes since date of exam.
--- NOTE | 2022-02-05 11:45 | IMM_PTH ---
PATIENT: PING CHUNG LOC: EN U#:[id number] AGE/SX: 66/F ROOM: RE02/05/[address]: Dr. Tyree Keita DO : 1955 BED: DIS: 02/05/2022 SPEC #: [id number] RECD: 02/06/22 12:18 STATUS: JET REQ #: [id number] CAT: 02/05/22 11:[address]: Tyree Keita DEPT: IMMUNOHISTOCHEMISTRY RECD BY: Dasha Lin ENTERED: 02/06/22 12:19 SP TYPE: IMMUNO OTHR DR: Dr. Leticia Pugh DO Tissues: B - Stomach, NOS Procedures: H Pylori (initial) PHYSICIAN & INSTITUTION [place] [id number] SPECIMEN INFORMATION: Tissue Source: B ? 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 Localization is made via biotin free immunoperoxidase method. Appropriate controls are performed and reacted as expected. Results on target cell population are indicated in the following table: RESULTS: ANTIBODY / CLONE RESULT Block B H Pylori (polyclonal) negative These tests were developed and their performance characteristics determined by [facility]. They may not have been cleared or approved by the U.S. Food and Drug Administration. The FDA has determined that such clearance or approval is not necessary. The above immunohistochemical/dualISH markers are ordered and reviewed by the Pathologist. INTERPRETATION: B. Gastric antrum, biopsy: Negative for Helicobacter pylori organisms. SVETLANA:brayden 02/09/2022
[2022-02-05 12:00] VITALS: BP 117/63; BP 140/88; PULSE 74; RESP 16; TEMP 37; O2SAT 94
[2022-02-05 12:05] VITALS: BP 110/65; BP 140/88; PULSE 74; RESP 16; O2SAT 93
[2022-02-05 12:10] VITALS: BP 117/63; BP 140/88; PULSE 72; RESP 16; O2SAT 92
--- NOTE | 2022-02-05 12:11 | OP.EGD_ITS ---
Patient Name: Radha Ramos Procedure Date: 02/05/2022 11:33 AM Date of : 1955 Age: 66 Procedure: Upper GI endoscopy Indications: Spencer's esophagus Providers: Tyree Keita DO Referring MD: Leticia Pugh Medicines: Monitored Anesthesia Care Patient Profile: This is a 66 year old female. Refer to note in patient chart for documentation of history and physical. Patient has symptoms of chronic dyspepsia, chronic heartburn and chronic nausea. Complications: No immediate complications. Procedure: Pre-Anesthesia Assessment: - Prior to the procedure, a History and Physical was performed, and patient medications and allergies were reviewed. The risks and benefits of the procedure and the sedation options and risks were discussed with the patient. All questions were answered and informed consent was obtained. Patient identification and proposed procedure were verified by the physician in the pre-procedure area. Mental Status Examination: alert and oriented. Airway Examination: normal oropharyngeal airway and neck mobility. Respiratory Examination: clear to auscultation. CV Examination: normal. Prophylactic Antibiotics: The patient does not require prophylactic antibiotics. Prior Anticoagulants: The patient has taken no previous anticoagulant or antiplatelet agents. ASA Grade Assessment: II - A patient with mild systemic disease. After reviewing the risks and benefits, the patient was deemed in satisfactory condition to undergo the procedure. The anesthesia plan was to use monitored anesthesia care (MAC). Immediately prior to administration of medications, the patient was re-assessed for adequacy to receive sedatives. The heart rate, respiratory rate, oxygen saturations, blood pressure, adequacy of pulmonary ventilation, and response to care were monitored throughout the procedure. The physical status of the patient was re-assessed after the procedure. After obtaining informed consent, the endoscope was passed under direct vision. Throughout the procedure, the patient's blood pressure, pulse, and oxygen saturations were monitored continuously. The gastroscope was introduced through the mouth, and advanced to the second part of duodenum. The upper GI endoscopy was accomplished without difficulty. The patient tolerated the procedure well. Scope In: 11:48:02 AM Scope Out: 11:54:29 AM Total Procedure Duration Time 0 hours 6 minutes 27 seconds Findings: The Z-line was irregular and was found 38 cm from the incisors. Biopsies were taken with a cold forceps for histology. Verification of patient identification for the specimen was done. Diffuse severe inflammation characterized by congestion (edema), erosions and erythema was found in the entire examined stomach. Biopsies were taken with a cold forceps for histology. Verification of patient identification for the specimen was done. Estimated blood loss was minimal. The second portion of the duodenum was normal. Impression: - Z-line irregular, 38 cm from the incisors. Biopsied. - Gastritis. Biopsied. - Normal second portion of the duodenum. Recommendation: - Discharge patient to home. - Resume previous diet. - Continue present medications. - Await pathology results. Procedure Code(s): --- Professional --- 48415, Esophagogastroduodenoscopy, flexible, transoral; with biopsy, single or multiple CPT copyright 2017 [employer]. All rights reserved. The codes documented in this report are preliminary and upon tongue stitcher review may be revised to meet current compliance requirements. Tyree Keita DO 02/05/2022 12:10:21 PM This report has been signed electronically. Number of Addenda: 0 Note Initiated On: 02/05/2022 11:33 AM
--- NOTE | 2022-02-05 12:11 | OP.CCLET_ITS ---
02/05/2022 Leticia Pugh [address] [place] [address] Re : Upper GI endoscopy procedure for Radha Ramos Dear Dr. Pugh This procedure was performed on February. My impressions and recommendations are as follows: Impressions : - Z-line irregular, 38 cm from the incisors. Biopsied. - Gastritis. Biopsied. - Normal second portion of the duodenum. Recommendations : - Discharge patient to home. - Resume previous diet. - Continue present medications. - Await pathology results. My findings are described in the full procedure note, which is enclosed. If I can be of further assistance, please feel free to contact me at . Sincerely, Tyree Keita, 02/05/2022 12:10:21 PM This report has been signed electronically.
[2022-02-05 12:15] VITALS: BP 114/69; BP 140/88; PULSE 72; RESP 16; O2SAT 92
[2022-02-05 12:16] VITALS: BP 116/68; BP 140/88; PULSE 73; RESP 16; TEMP 36.3; O2SAT 92
== END 2022-02-05 12:44 | disposition home or self-care (01) ==
LOC: EN 10:34 → AC 10:36
PROVIDERS: PCP Internal Medicine; Referring Provider Internal Medicine; Visit Provider Internal Medicine Gastroenterology
PROC: 0DJ08ZZ Inspection of Upper Intestinal Tract, Via Natural or Artificial Opening Endoscopic (ICD-10-PCS; CPT 43235; principal; 2022-02-05 11:40)
DX: K58.0 Irritable bowel syndrome with diarrhea (principal); K21.00 Gastro-esophageal reflux disease with esophagitis, without bleeding; K29.70 Gastritis, unspecified, without bleeding; Z79.82 Long term (current) use of aspirin; Z79.899 Other long term (current) drug therapy
CPT/HCPCS: 43239; 82962; 88305; 88313; 88342; J7120; J2405

== ENCOUNTER → 2022-02-11 | Outpatient (CLI) | payer OTHER, SELFPAY ==
[2022-02-15 07:23] LABS: Gastrin, Serum 173 pg/mL (0-115); Immunoglobulin M 19 mg/dL (26-217)
== END | disposition home or self-care (01) ==
LOC: LAB 11:15
PROVIDERS: PCP Internal Medicine; Visit Provider Nurse Practitioner Adult Health
DX: R19.7 Diarrhea, unspecified (principal); R76.8 Other specified abnormal immunological findings in serum
CPT/HCPCS: 36415; 82784; 82941

== ENCOUNTER → 2022-03-05 | Outpatient (CLI) | payer OTHER, SELFPAY ==
--- NOTE | 2022-03-05 11:37 | NM_ITS ---
CLINICAL: 66-year-old female with history of clinical gastroparesis. SOLID PHASE 99m Tc SULFUR COLLOID GASTRIC EMPTYING STUDY COMPARISON: Previous semisolid phase gastric emptying study report 07/04/2010 FINDINGS: The patient was administered 1.0 mCi of 99m Tc sulfur colloid mixed with egg and consumed per os. Image acquisitions in the anterior-posterior projection were obtained for 60 minutes. There is prompt visualization of the stomach. There is no gastroesophageal reflux identified. There is no definitive emptying of the gastric contents defined over 60 minutes of sequential imaging. The T1/2 linear fit was not calculable. (Normal 65-110 minutes). NM/Gastric Emptying Study IMPRESSION: 1. ABNORMAL 99m Tc sulfur colloid solid phase gastric emptying imaging examination. A. There is significant-severe delayed solid phase gastric emptying compared to normal controls. (Kirill et al, Gastroenterology 77: 75, 1979 Naomie tyler al, Semin Nucl Med 12: 116, 1981). Electronically Signed: Dagoberto Meyers, at 23:06 EST ,
== END | disposition home or self-care (01) ==
LOC: NM 11:35
PROVIDERS: PCP Internal Medicine; Referring Provider Nurse Practitioner Adult Health; Visit Provider Nurse Practitioner Adult Health
DX: K29.60 Other gastritis without bleeding (principal)
CPT/HCPCS: 78264; A9541

== ENCOUNTER 2022-07-08 02:56 | Emergency (ER) | payer OTHER, SELFPAY ==
[2022-07-08] VITALS (7 sets, daily range): BP systolic 132–186; BP diastolic 73–92; PULSE 60–81; RESP 14–19; TEMP 35.8; O2SAT 94–98; BMI 31.5
--- NOTE | 2022-07-08 03:12 | EDS_ITS ---
HPI History of Present Illness Chief Complaint: Chest Pain Informant: patient Onset/Context/Timing Onset: Hours (1) Activity at onset: activity on onset and sleep Timing: Intermittent Quality: Positive for Pressure Current Severity: Mild Maximum Severity: Moderate Worsened By: Nothing Relieved By: Nothing Associated Symptoms: Positive for Nausea, Lightheadedness and Palpitations Narrative Narrative: Patient states she has a history of SVT and frequently feels brief episodes of palpitations. This morning she woke up with an episode, but also with associated chest pressure. For the past hour she has been having the pressure come and go at times along with the palpitations, but she does have the pressure right now without the palpitations. She has felt a little lightheaded/faint, but no near-syncope or syncope. She denies any dyspnea. The discomfort is substernal, and nonpleuritic. She denies radiation to the back, jaw, arm, or elsewhere. She feels a little nauseated but has not vomited. No focal neurol ogic symptoms or headache. She states sometimes when she gets a frequent palpitation she takes an extra metoprolol, she has been compliant with her medications recently, no recent illness, travel out of the area, injury, leg pain or swelling, and she has not needed to take extra metoprolol recently. [facility] Medical History Abdominal pain Abscess of abdominal wall Alternating constipation and diarrhea Arthritis Atypical chest pain Back pain Cardiology follow-up encounter Chest pain Chest pain Chest pressure Chronic cough Diabetes Diabetes Diabetes mellitus Dietary restriction Encounter for long-term current use of high risk medication Enlarged thyroid Gastric reflux H/O urinary tract infection High cholesterol History of echocardiogram History of hiatal hernia History of IBS History of irregular heartbeat History of steroid therapy History of stress test Irritable bowel syndrome with diarrhea Left inguinal hernia Low back problem Mitral valve prolapse Mixed hyperlipidemia Night sweats Non-smoker Palpitations Post-op pain Racing heart beat SVT (supraventricular tachycardia) Type 2 diabetes mellitus Vitamin B12 deficiency Vitamin D deficiency Wound, open, abdominal wall, anterior Home Medications ezetimibe 10 mg tablet (Zetia) 10 mg PO DAILY cholesterol 09/24/14 [History Last Taken 02/05/22] aspirin 81 mg tablet,delayed release 81 mg PO DAILY heart health 08/14/19 [History Last Taken 02/05/22] oxybutynin chloride 5 mg tablet 5 mg PO DAILY PRN bladder 09/21/19 [History Last Taken 02/05/22] glimepiride 1 mg tablet (Amaryl) 2 mg PO BID blood sugar 05/07/20 [History Last Taken 02/05/22] cholecalciferol (vitamin D3) 50 mcg (2,000 unit) tablet 50 mcg PO DAILY 03/20/21 [History Last Taken 02/05/22] liraglutide 0.6 mg/0.1 mL (18 mg/3 mL) subcutaneous pen injector (Victoza 2-Balbir) 1.8 mg subcut DAILY 02/03/22 [History Last Taken 02/05/22] cholestyramine-aspartame 4 gram oral powder for susp in a packet (Cholestyramine Light) 4 g PO BID #60 ea 02/16/22 [Rx Last Taken Unknown] pantoprazole 40 mg tablet,delayed release (Protonix) 40 mg PO DAILY #90 tabs 05/04/22 [Rx Last Taken Unknown] metoclopramide HCl 5 mg tablet 5 mg PO QAC #270 tabs 06/02/22 [Rx Last Taken Unknown] metoprolol tartrate 25 mg tablet 25 mg PO .COMPLEX Clarification of instructions #180 tabs 06/30/22 [Rx Last Taken Unknown] Allergy/AdvReac Type Severity Reaction Status Date / Time exenatide [From Byetta] AdvReac Severe dizziness Verified 07/08/22 03:02 pravastatin [From Pravachol] AdvReac Severe Myalgias Verified 07/08/22 03:02 atorvastatin [From Lipitor] AdvReac Intermediate Muscle pain Verified 07/08/22 03:02 simvastatin [From Zocor] AdvReac Intermediate Myalgias Verified 07/08/22 03:02 Family History Mother CAD (coronary artery disease) Heart disease Hypertension Diabetes Myocardial infarction, Onset Age: 78 Hyperlipidemia Father Brain tumor Cancer Hyperlipidemia Hypertension Brother Aortic aneurysm Hyperlipidemia Hypertension Grandmother Arthritis Grandfather Diabetes Surgical History History of appendectomy History of cardiac catheterization History of cholecystectomy History of colonoscopy History of esophagogastroduodenoscopy (EGD) History of foot surgery History of hysterectomy History of shoulder surgery S/P foot surgery S/P left inguinal hernia repair Social History household members: spouse housing: house Smoking Status: Never smoker alcohol intake: never substance use type: does not use diet: low carbohydrate caffeine: Yes Type: carbonated beverages Number of servings: 1 what type of physical activity do you participate in: walking frequency: 1-2 times per week seatbelt use: always do you feel safe at home: Yes ROS ROS ED Constitutional Constitutional ED: Denies chills or fever(s) Eyes Eyes: Denies change in vision or diplopia ENT ENT ED: Denies rhinorrhea or sore throat Cardiovascular Cardiovascular: Reports chest pain, lightheadedness and palpitations; Denies syncope Respiratory/Chest Respiratory/Chest: Denies cough or dyspnea Gastrointestinal Gastrointestinal: Reports nausea; Denies abdominal pain, diarrhea or vomiting Genitourinary Genitourinary ED: Denies dysuria or hematuria Musculoskeletal Musculoskeletal: Denies back pain or neck pain Integumentary Denies abscess or rash Neurologic Neurologic: Denies headache(s), paresthesias or weakness Psychiatric Psychiatric: Denies anxiety or suicidal thoughts EXAM Physical Exam Const Vital Signs: 07/08/22 02:57 07/08/22 03:00 07/08/22 03:54 Temperature 96.5 F L Temperature Source Temporal Pulse Rate 81 63 Respiratory Rate 19 H Respiratory Effort Normal Blood Pressure 186/90 H 166/86 H Blood Pressure Mean 122 Pulse Ox 98 Oxygen Delivery Method Fraction of Inspired Oxygen (FIO2) 07/08/22 04:01 07/08/22 04:08 07/08/22 04:08 Temperature Temperature Source Pulse Rate 72 68 Respiratory Rate 14 Respiratory Effort Blood Pressure 150/79 H 132/86 H Blood Pressure Mean 101 Pulse Ox 94 Oxygen Delivery Method Room Air Room Air Fraction of Inspired Oxygen (FIO2) 97 07/08/22 05:20 07/08/22 06:00 Temperature Temperature Source Pulse Rate 60 64 Respiratory Rate 16 18 Respiratory Effort Blood Pressure 152/79 H 169/92 H Blood Pressure Mean 103 117 Pulse Ox 98 98 Oxygen Delivery Method Room Air Room Air Fraction of Inspired Oxygen (FIO2) Positive well nourished and well developed Constitutional Narrative: Well-appearing, pleasant General Appearance ED: well developed and NAD HEENT Reports moist mucous membranes normocephalic and atraumatic Eyes PERRL and EOMs intact bilaterally Neck full ROM and supple Resp normal respiratory effort and clear to auscultation bilaterally Cardio regular rate, regular rhythm and no murmurs GI non-tender and non-distended Auscultation: normoactive bowel sounds Palpation: soft Back/Spine no CVA tenderness General Back: other FROM Extremity normal to inspection General Extremety ED: Negative for edema, pulses abnormal or tenderness General Extremity: Negative for edema or pulses abnormal Neuro oriented x3, CN's II-XII intact bilaterally and no sensory deficits noted Sensorium / Orientation: awake and alert Motor Exam: strength 5/5 throughout Skin no rashes or lesions noted and no wounds Heart Score History: Slightly/Non-Suspicious ECG: Normal Age: >/= 65 years Risk Factors: 1 or 2 Risk Factors Troponin: </= Normal Limit Score: 3 MDM MDM MDM Narrative Medical decision making narrative: While performing initial work-up, patient was given aspirin and nitroglycerin for her symptoms, her blood pressure improved significantly down to 132/86 but she had no improvement in her chest discomfort which was still there. She was doing well otherwise, she had no telemetry events. She does have a history of GERD and takes pantoprazole and because her reflux involves bile acid, metoclopramide. She states she is compliant with her medications. Her initial work-up is negative with an EKG that is normal and a troponin that is for well within normal limits, as the initial draw at 4, with the second returning also less than 7 at 6, for essentially a negative delta and this has nearly 100% negative predictive value for MACE. We gave her a GI cocktail. It may be helped a little but she still had the discomfort. She was clinically and hemodynamically stable, offered morphine which she accepted. This did help and she was more comfortable. In further discussion, she states this has happened multiple times in the past, although her comments about her symptoms were ambiguous, she would say that this pressure was new, but then she would say she has had it with her palpitations in the past and it usually happens at night, she has been referred to EP cardiology I think, a [facility] in [place], she states someone has talked her about getting evaluated for an ablation [facility]. She states she has had multiple stress tests because of visits to the ER like this and they have all been negative. She had a heart cath 20 years ago that was okay but none since. At this time I reassured her it is safe for discharge home, close a patient follow-up advised. Lab Data Attestation: I reviewed the patient's lab results. Labs: Laboratory Results - last 24 hr 07/08/22 07/08/22 07/08/22 03:05 03:05 05:12 WBC 6.9 RBC 4.99 Hgb 14.5 Hct 42.9 MCV 86.0 MCH 29.1 MCHC 33.8 RDW Std Deviation 38.7 RDW Coeff of Gia 12.4 Plt Count 221 MPV 9.5 Immature Gran % (Auto) 0.100 Neut % (Auto) 35.5 L Lymph % (Auto) 53.7 H [place] % (Auto) 8.1 Eos % (Auto) 2.3 Baso % (Auto) 0.3 Absolute Neuts (auto) 2.5 Absolute Lymphs (auto) 3.71 Nucleated RBC % 0 Sodium 139 Potassium 3.9 Chloride 111 H Carbon Dioxide 22.0 Anion Gap 6 BUN 14 Creatinine 1.14 H Estim Creat Clear Calc 44.27 Est GFR (MDRD) Af Amer 61 Est GFR (MDRD) Non-Af 51 L BUN/Creatinine Ratio 12.3 Glucose 147 H Calcium 8.9 Troponin I High Sens 4 6 Radiography Chest X-Ray - ED: 2 View, Read by ED Physician, No Acute Disease and No Infiltrates Diagnostic Testing: Clinical Impression(s) from Imaging Studies Chest X-Ray 07/08/22 03:12 IMPRESSION: No demonstrated acute cardiopulmonary process. Electronically Signed: Aby Krause MD at 3:38 EDT , Rhythm Strip Rhythm Strip: Sinus Rhythm Rate: 70 Ectopy: None EKG Initial EKG: Attestation: I personally reviewed and interpreted this EKG as follows: Interpretation: Sinus Rhythm and No Acute Injury Pattern Comments: normal EKG Discharge Plan Triage Chief Complaint: Chest Pain ED Provider: Martell Prajapati Dx/Rx/DC Orders Clinical Impression: Chest pain, Palpitations Instructions: ED Chest Pain, Uncertain Cause Prescriptions: No Action aspirin 81 mg tablet,delayed release (DR/EC) 81 mg PO DAILY Label Comments: ask about stopping oxybutynin chloride 5 mg tablet 5 mg PO DAILY PRN (Reason: bladder) cholecalciferol (vitamin D3) 50 mcg (2,000 unit) tablet 50 mcg PO DAILY ezetimibe [Zetia] 10 MG tablet 10 mg PO DAILY Label Comments: cholesterol-need to take glimepiride [Amaryl] 1 mg tablet 2 mg PO BID Victoza 2-Balbir 0.6 mg/0.1 mL (18 mg/3 mL) Pen Injector 1.8 mg SUBCUT DAILY Rx Instructions: inject 0.6mg subcutaneously once daily x 7 days; then 1.2mg daily, not to exceed 1.8mg/day cholestyramine-aspartame [Cholestyramine Light] 4 gram powder in packet 4 g PO BID Qty: 60 2RF Rx Instructions: administer w/meal; avoid other meds within 1hr before or 4-6hr after dose pantoprazole [Protonix] 40 mg tablet,delayed release (DR/EC) 40 mg PO DAILY Qty: 90 3RF metoclopramide HCl 5 mg tablet 5 mg PO QAC Qty: 270 1RF Rx Instructions: administer 30 minutes before meals metoprolol tartrate 25 mg tablet 25 mg PO .COMPLEX Qty: 180 3RF Rx Instructions: 25 mg orally daily, may take and additional 25 mg prn palpitaitons or fast heart rate; Primary Care Provider: Leticia Pugh Referrals: Leticia Pugh DO [Primary Care Provider] - 1-2 Days if not improving Disposition Disposition: Home, Self Care
--- NOTE | 2022-07-08 03:12 | RAD_ITS ---
STUDY: X-RAY CHEST REASON FOR EXAM: Female, 66 years old. Chest pain TECHNIQUE: PA and lateral views of the chest. COMPARISON: February 12, 2022 chest x-ray FINDINGS: The lungs are clear and expanded. There is no demonstrated pleural abnormality. Normal size heart. Normal mediastinum and shemar. Normal visualized pulmonary arteries. Normal visualized aortic arch and descending thoracic aorta. There are diffuse degenerative changes of the visualized thoracic spine. Prior fracture right rib 6. There is no demonstrated abnormality of the visualized soft tissue structures of the upper abdomen. RAD/Chest PA and Lateral IMPRESSION: No demonstrated acute cardiopulmonary process. Electronically Signed: Aby Krause MD at 3:38 EDT ,
[2022-07-08 03:20] LABS: Absolute Lymphocyte Count 3.71 X10^3/uL (0.83-4.51); Absolute Neutrophil Count 2.5 X10^3/uL (2.0-7.7); Basophil# 0.02 X10^3/uL; Basophil% 0.3 % (0-1); Eosinophil# 0.16 X10^3/uL; Eosinophils% 2.3 % (0-5); Hematocrit 42.9 % (37-47); Hemoglobin 14.5 g/dL (12.0-15.0); Lymphocyte # 3.71 X10^3/ul (0.83-4.51); Lymphocyte % 53.7 % (19-41); Mean Corp Hgb Conc 33.8 g/dL (32-36); Mean Corpuscular Hgb 29.1 pg (27.0-32.0); Mean Platelet Vol. 9.5 fl (6.2-12.0); Monocyte# 0.56 X10^3/uL; Monocyte% 8.1 % (0-10); NRBC Flagged by Analyzer 0 % (0-5); Neutrophil # 2.45 X10^3/uL (2.7-7.7); Neutrophil % 35.5 % (47-70); Platelet Count 221 K/mm3 (150-450); RBC Distribution Width CV 12.4 % (11.6-14.6); RBC Distribution Width SD 38.7 fl (35.1-43.9); Red Blood Count 4.99 M/mm3 (4.2-5.4); White Blood Count 6.9 K/mm3 (4.4-11.0)
[2022-07-08 03:42] LABS: Anion Gap 6 (5-15); BUN 14 mg/dL (7-18); BUN/Creat Ratio 12.3 RATIO (10-20); Calcium,Total 8.9 mg/dL (8.5-10.1); Chloride 111 mmol/L (98-107); Creatinine, Serum 1.14 mg/dL (0.55-1.02); EST Glomerular Filtration Rate 51 mL/min (>60); Est Glom Filt Rate - Afr Amer 61 mL/min (>60); Estimated Creatinine Clearance 44.27 ml/min; Glucose 147 mg/dL (74-106); Potassium 3.9 mmol/L (3.5-5.1); Sodium Level 139 mmol/L (136-145); Troponin-I HS (w/2H Reflex) 4 pg/mL (3.0-54.0)
[2022-07-08] MEDS: Ondansetron 4 MG/2 ML Vial IV (03:49)
[2022-07-08] MEDS: Aspirin 81 MG TAB.CHEW 324 MG PO (03:49)
[2022-07-08] MEDS: Nitroglycerin SL (ED/IMG/CATH) 0.4 MG TABLET SL ×2 (03:54→04:01)
[2022-07-08] MEDS: Mag Hydrox/Al Hydrox/Simeth 30 ML UDC PO (04:21)
[2022-07-08 05:17] LABS: Reflex Troponin-HS? (from REC) Y
[2022-07-08 05:42] LABS: Troponin-I HS 6 pg/mL (3.0-54.0)
[2022-07-08] MEDS: Morphine 4 MG/ML Syringe IV (05:58)
== END 2022-07-08 07:04 | disposition home or self-care (01) ==
PROVIDERS: Emergency Provider Emergency Medicine; PCP Internal Medicine; Visit Provider Emergency Medicine
DX: R07.9 Chest pain, unspecified (principal); E11.9 Type 2 diabetes mellitus without complications; R00.2 Palpitations; K21.9 Gastro-esophageal reflux disease without esophagitis; E78.2 Mixed hyperlipidemia; Z79.82 Long term (current) use of aspirin; Z79.84 Long term (current) use of oral hypoglycemic drugs; Z79.899 Other long term (current) drug therapy
CPT/HCPCS: 71046; 80048; 84484; 85025; 93005; 96374; 96375; 99285; A4216; J2405

== ENCOUNTER → 2022-08-04 | Outpatient (CLI) | payer OTHER, SELFPAY ==
--- NOTE | 2022-08-04 12:38 | ECHOCS_ITS ---
Reason For Study: MVP Procedure This was a 2D Doppler, Color Flow transthoracic echocardiogram. The study was technically difficult. Contrast injection was performed. Exam performed in department. Left Ventricle Normal size and thickness. The left ventricular ejection fraction is 60 %. Normal diastology for age. Right Ventricle Normal right ventricle. Atria The left and right atria are normal. Mitral Valve Mild focal mitral valve calcification of the posterior leaflet. No mitral valve prolapse noted. Trivial mitral valve insufficiency. Tricuspid Valve Trivial tricuspid valve insufficiency. Unable to estimate RV systolic pressure due to insufficient tricuspid regurgitant envelope. Aortic Valve Normal aortic valve. Pulmonic Valve The pulmonic valve is not well visualized. Great Vessels Normal sized aortic root. Pericardium/Pleural No pericardial effusion. Medication 22 gauge I.V. with prn adaptor inserted into right arm. Diluted definity 2ml given slow IV push to enhance endocardial definition. MMode/2D Measurements & Calculations LVIDd: 5.3 cm IVSd: 0.76 cm LAV(MOD-bp): 63.2 ml LVIDs: 3.2 cm LVPWd: 0.91 cm FS: 38.9 % LAV(MOD-bp) Indexed: 32.7 ml/m2 LAV(MOD-sp2): 65.2 ml LAV(MOD-sp4): 59.0 ml SV(MOD-sp4): 60.8 ml SV(sp4-el): 65.6 ml LVAd ap4: 32.3 cm2 LVLd ap4: 7.5 cm EDV(MOD-sp4): 112.0 ml EDV(sp4-el): 118.5 ml LVAs ap4: 19.9 cm2 LVLs ap4: 6.4 cm ESV(MOD-sp4): 51.1 ml ESV(sp4-el): 52.9 ml EF(MOD-sp4): 54.3 % EF(sp4-el): 55.3 % LA dimension(2D): 3.9 cm LA A4 area: 19.6 cm2 RA A4 area: 13.6 cm2 TAPSE: 1.6 cm Time Measurements MV dec time: 0.21 sec Doppler Measurements & Calculations MV E max jovany: 66.2 cm/sec Lat Peak E' Jovany: 8.2 cm/sec Med Peak E' Jovany: 6.8 cm/sec MV A max jovany: 80.7 cm/sec E/E' lat: 8.0 E/E' med: 9.7 MV E/A: 0.82 MV V2 max: 88.3 cm/sec MV dec slope: 315.9 cm/sec2 Ao V2 max: 114.4 cm/sec MV max P.1 mmHg Ao max P.3 mmHg MV V2 mean: 65.0 cm/sec Ao V2 mean: 79.3 cm/sec MV mean P.8 mmHg Ao mean P.9 mmHg MV V2 VTI: 26.6 cm Ao V2 VTI: 24.2 cm AV (velocity ratio): 0.93 LV V1 max: 100.8 cm/sec PA V2 max: 122.3 cm/sec LV V1 max P.1 mmHg PA V2 mean: 79.0 cm/sec LV V1 mean P.3 mmHg LV V1 mean: 70.9 cm/sec LV V1 VTI: 22.6 cm ECHO/Echo Complete W/ Contrast Interpretation Summary The left ventricular ejection fraction is 60 %. Mild focal mitral valve calcification of the posterior leaflet. No mitral valve prolapse noted. Ordering Physician: Yennifer Prieto Referring Physician: Yennifer Prieto Performed By: Trinity Louise RCS
== END | disposition home or self-care (01) ==
PROVIDERS: PCP Internal Medicine; Referring Provider Nurse Practitioner Gerontology; Visit Provider Nurse Practitioner Gerontology
DX: I34.1 Nonrheumatic mitral (valve) prolapse (principal)
CPT/HCPCS: 93306; Q9957; A4216; C8929

== ENCOUNTER → 2022-08-24 | Outpatient (CLI) | payer OTHER, SELFPAY ==
--- NOTE | 2022-08-24 12:51 | BI_ITS ---
MAMMOGRAPHY - BILATERAL SCREENING REASON FOR EXAM: Female, 66 years old. Routine annual screening examination. PERTINENT HISTORY: Non-contributory. TECHNIQUE: Digital bilateral breast jeff (3D mammographic acquisition) in the CC and MLO projections. 2-D mediolateral oblique (MLO) and craniocaudad (CC) views of both breasts were obtained. CAD: Full Field Digital Mammography with Computer Added Detection was performed. COMPARISON: Mammogram from 08/21/2021, 08/20/2020. FINDINGS: Breast Composition: The breasts are heterogeneously dense, which may obscure small masses. There are no dominant masses or suspicious calcifications. No other significant abnormalities are identified. There has been no significant change since the prior study. BI/SCRN MAMM (CAD)W/JEFF BILAT IMPRESSION: Stable bilateral screening mammogram. Yearly follow-up mammogram recommended. (A) ASSESSMENT CATEGORY: BIRADS Category 1: Negative. A letter regarding these results will be sent to the patient by the facility within 30 days. Approximately 10% of breast cancers are not detected by mammography. A normal mammogram should not delay biopsy of a clinically suspicious abnormality. Electronically Signed: Vitaly North DO at 11:06 EDT ,
== END | disposition home or self-care (01) ==
PROVIDERS: PCP Internal Medicine; Referring Provider Nurse Practitioner Women's Health; Visit Provider Nurse Practitioner Women's Health
DX: Z12.31 Encounter for screening mammogram for malignant neoplasm of breast (principal)
CPT/HCPCS: 77063; 77067

== ENCOUNTER → 2022-08-27 | Outpatient (CLI) | payer OTHER, SELFPAY ==
--- NOTE | 2022-08-27 18:43 | CT_ITS ---
EXAM: CT Abdomen And Pelvis W/ Contrast Injection HISTORY: LLQ pain, diarrhea -- IV and oral TECHNIQUE: Routine protocol CT abdomen pelvis. IV Contrast: Oral and amp;amp; IV Readi-CAT and amp;amp; 100mL Isovue-300 . Oral Contrast: with. Sagittal and coronal images were reconstructed. RADIATION DOSAGE (If Supplied By Facility): CTDIvol = ( 13.64 ) mGy, DLP = ( 1129.64 ) mGycm Individualized dose optimization techniques were used for this CT. COMPARISON: CT abdomen and pelvis 02/28/2020. LIMITATIONS: None. FINDINGS: LOWER CHEST: Lung bases are clear. LIVER: Unremarkable. GALLBLADDER/BILE DUCTS: Gallbladder not identified presumed surgically absent. PANCREAS: Unremarkable. SPLEEN: Unremarkable. Small adjacent nodule likely a splenule. ADRENAL GLANDS: Unremarkable. KIDNEYS / URETERS: Unremarkable. BOWEL / MESENTERY: A few scattered diverticula in the colon. No bowel obstruction. APPENDIX: Surgically absent. PERITONEUM: No free air. No free fluid. VESSELS: Abdominal aorta is normal caliber. RETROPERITONEUM: Unremarkable. REPRODUCTIVE ORGANS: Uterus not identified. BLADDER: Unremarkable. ABDOMINAL WALL: Unremarkable. BONES: No acute abnormality. OTHER: None. CT/Abdomen/Pelvis WITH Contrast IMPRESSION: No acute findings. Colonic diverticulosis without evidence of acute diverticulitis. Electronically Signed: Amy Cartwright MD at 20:05 EDT ,
[2022-08-27 19:09] LABS: CREATININE FINGERSTICK 1.1 mg/dL (0.55-1.02)
== END | disposition home or self-care (01) ==
LOC: CT 18:40
PROVIDERS: PCP Internal Medicine; Referring Provider Nurse Practitioner Adult Health; Visit Provider Nurse Practitioner Adult Health
DX: R10.32 Left lower quadrant pain (principal); R19.7 Diarrhea, unspecified
CPT/HCPCS: 74177; Q9967

== ENCOUNTER → 2022-11-30 | Outpatient (CLI) | payer OTHER, SELFPAY | END | disposition home or self-care (01) | PROVIDERS: PCP Internal Medicine; Referring Provider Nurse Practitioner Acute Care; Visit Provider Nurse Practitioner Acute Care | DX: G47.30 Sleep apnea, unspecified (principal) | CPT/HCPCS: 95806 ==

== ENCOUNTER → 2022-12-22 | Outpatient (CLI) | payer OTHER, SELFPAY ==
--- NOTE | 2022-12-22 09:37 | NM_ITS ---
CLINICAL: 67-year-old female with history of previous cholecystectomy with history of abdominal pain. RADIONUCLIDE HEPATOBILIARY SCINTIGRAPHY COMPARISON: Previous hepatobiliary scintigraphy report dated 12/31/2010 FINDINGS: Following the intravenous administration of 6.0 mCi of 99m Tc Mebrofenin, hepatobiliary images reveal: 1. Relatively prompt and homogeneous radiopharmaceutical concentration is noted by a normal sized liver. No parenchymal defects are identified. 2. Gallbladder activity is not identified during 60 minutes of sequential imaging commensurate with known history of prior cholecystectomy. 3. Small intestinal tract is observed at 19 minutes post radiopharmaceutical administration. 4. Washout of the radiopharmaceutical by the hepatic parenchyma appears qualitatively normal. 5. There is scintigraphic evidence of duodenal-gastric reflux initiating at approximately 56 minutes post tracer injection. NM/Hepatobilliary Imaging IMPRESSION: 1. Nonvisualization of the gallbladder is consistent with prior cholecystectomy. 2. There is visualized duodenal gastric reflux as defined above. Electronically Signed: Dagoberto Meyers DO at 22:48 EDT ,
== END | disposition home or self-care (01) ==
LOC: NM 09:36
PROVIDERS: PCP Internal Medicine; Referring Provider Internal Medicine Gastroenterology; Visit Provider Internal Medicine Gastroenterology
DX: R19.8 Other specified symptoms and signs involving the digestive system and abdomen (principal)
CPT/HCPCS: 78226; A9537

== ENCOUNTER 2023-01-22 11:00 | Outpatient (CLI) | payer OTHER, SELFPAY | END 2023-01-22 23:59 | disposition home or self-care (01) | LOC: SL 11:47 | PROVIDERS: PCP Internal Medicine; Visit Provider Nurse Practitioner Acute Care | DX: Z00.00 Encounter for general adult medical examination without abnormal findings (principal) ==

== ENCOUNTER 2023-02-15 06:22 | Day surgery (SDC) | payer OTHER, SELFPAY ==
[2023-02-15] VITALS (7 sets, daily range): BP systolic 124–139; BP diastolic 72–81; PULSE 71–76; RESP 14–16; TEMP 36.1–36.9; O2SAT 92–100; BMI 31.2
[2023-02-15] MEDS: Lactated Ringers 1,000 ML 15 ML IV (06:49)
--- NOTE | 2023-02-15 07:16 | PCM.HP.BLA ---
History and Physical Date of Admission: 02/15/23 67 F who presents to the office today for *BGI established 12.19.20 with LLQ discomfort and constipation alternating with diarrhea. MiraLAX therapy has been helpful with constipation ? EGD and colonoscopy 01.13.21 EGD LA Grade A esophagitis, Spencer?s; food residue in stomach; duodenitis. ? Colonoscopy medium mucosal lipoma 15mm in ascending colon; redundant colon; TI congestion. OV 01.27.21 continues to have dysphagia, chest pain and constipation alternating with diarrhea. Start xifaxan OV 02.24.21 has not started Xifaxan OV 05.12.21 continues to have constipation alternating with diarrhea and LLQ discomfort and bloating. Did not complete Xifaxan course. OV 06.29.21 loose stools alternating with constipation. Completed Xifaxan and lotronex started without change in bowel habits. OV 09.11.21 Start Linzess 72mcg OV 10.25.21 LLQ pain with constipation and overflow loose stools. ? Biochemical ESR, CRP, LDH, STEVE comp, ANCA, IgGAE, celiac without pertinent abnormality. ? IgM L16 ? Stool calprotectin, elastase, C.difficile (cancelled), lactoferrin, EP WNL. O/P and giardia QNS ? EGD 02.05.22 irregular Zline 38cm without metaplasia; gastritis ? Biochemical ? IgM L19, gastrin H173 OV 02.27.22 reduction of high fiber foods has been helpful with loose stools. Colestipol changed to cholestyramine for better bile binding. Start dicyclomine and sucralfate. ? CT abd/pel 08.27.22 small splenic splenule; colonic diverticulosis Contact 09.14.22 with incomplete and small BM, using MiraLAX daily. Start Trulance (samples) Contact 10.22.22 with ongoing abdominal pain. States she is not constipation. Callback attempted but no answer. Start lomotil OV 11.25.22 continues to be having loose stools alternating with no BM. She still has cholestyramine prescribed but she takes it intermittently (approximately weekly). ROS Const Constitutional: No fatigue, frequent falls, headache(s) or weight change ENT ENT: No headache(s) or difficulty swallowing Cardio Cardiology: No leg pain with exertion Gastro GI: Positive for bloating, constipation and diarrhea; No abdominal pain, change in bowel habits, heartburn, difficulty swallowing, Vomiting blood/hematemesis, Blood in stool, nausea/dyspepsia or vomiting Musc Musculoskeletal: No abnormal gait, joint pain, back pain, joint swelling, muscle cramps, muscle weakness, numbness, stiffness, tingling, Arthritis, sciatica, leg pain at night or leg pain with exertion Skin Skin: No dry skin, lesions, itchy eyes or rash Neuro Neurology: No abnormal gait, frequent falls, headache(s), numbness or tingling Psych Psychiatric: No anxiety, No depression, No paranoia, No Behavioral Problems, No Compulsive Behavior, No hyperactivity, No inattentiveness, No obsessions/compulsions, Positive for Temper Tantrums and No suicidal ideation Endo Endocrine: No fatigue or weight change Aller/Imm Allergy/Immunologic: No itchy eyes Baldemar/Lymp Hematologic/Lymphatic: No easy bleeding or easy bruising Exam Const General: cooperative, healthy appearing and comfortable Nutritional Appearance: average body habitus Orientation: alert, awake and oriented x3 Quality Reporting Tobacco Screening ([facility] 138) Smoking Status: Never smoker Assessment and Plan Assessment and Plan (1) 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 We will continue her on PPI therapy. If there is any progression with the life of the disease and or histologic abnormalities then we will discuss ablation therapy. She was encouraged things to avoid and to stay on medicines. (3) Irritable bowel syndrome with diarrhea: Status: Chronic Plan: Her symptoms seem to be more constipation related than diarrhea. It sounds as if she is having increased evacuation. We will put her on a different bowel regimen in order to allow her to evacuate completely and therefore hopefully not have the episodes of dumping, urgency and diarrhea due to incomplete evacuation. (4) Gastroparesis: Status: Acute Plan: We will get a HIDA scan to see if the gastroparesis is worse due to duodenal gastric reflux Orders: Orders Hepatobilliary Imaging Today R19.8 - Other specified symptoms and signs involving the digestive system and abdomen I have examined the patient and the H&P has been reviewed. There are no clinical changes since date of exam.
--- NOTE | 2023-02-15 07:30 | IMM_PTH ---
PATIENT: PING CHUNG LOC: EN U#:[id number] AGE/SX: 67/F ROOM: RE02/15/[address]: Dr. Tyree Keita DO : 1955 BED: DIS: 02/15/2023 SPEC #: [id number] RECD: 02/15/23 10:47 STATUS: JET REQ #: [id number] CAT: 02/15/23 07:[address]: Tyree Keita DEPT: IMMUNOHISTOCHEMISTRY RECD BY: Dasha Lin ENTERED: 02/15/23 10:47 SP TYPE: IMMUNO OTHR DR: Dr. Leticia Pugh DO Tissues: C - Stomach, NOS Procedures: H Pylori (initial) PHYSICIAN & INSTITUTION [place] [phone] SPECIMEN INFORMATION: Tissue Source: C - Gastric antrum Clinical Info: Alternating constipation/diarrhea, Spencer's esophagus, irritable bowel syndrome Specimen Number: [id number] CPT code: 28676 METHODOLOGY: Deparaffinized sections of prefer/formalin-fixed tissue or PAP/DQ stained slides are incubated with monoclonal/polyclonal antibodies/oligonucleotide probes. Localization is made via biotin free immunoperoxidase method. Appropriate controls are performed and reacted as expected. Results on target cell population are indicated in the following table: RESULTS: ANTIBODY / CLONE RESULT Block C H Pylori (polyclonal) negative These tests were developed and their performance characteristics determined by [facility]. They may not have been cleared or approved by the U.S. Food and Drug Administration. The FDA has determined that such clearance or approval is not necessary. The above immunohistochemical/dualISH markers are ordered and reviewed by the Pathologist. INTERPRETATION: C. Gastric antrum, biopsy: Negative for Helicobacter pylori organisms. AM:brayden 02/16/2023
--- NOTE | 2023-02-15 07:30 | EGD_PTH ---
PATIENT: PING CHUNG LOC: EN U#:[id number] AGE/SX: 67/F ROOM: RE02/15/[address]: Dr. Tyree Keita DO : 1955 BED: DIS: 02/15/2023 SPEC #: [id number] RECD: 02/15/23 09:57 STATUS: JET [place] #: [id number] CAT: 02/15/23 07:[address]: Tyree Keita DEPT: SURGICAL PATHOLOGY RECD BY: Meme Mason ENTERED: 02/15/23 10:58 SP TYPE: EGD BIOPSY OT DR: Dr. Leticia Pugh DO Tissues: A - Esophagus, NOS B - Duodenum, NOS C - Gastric mucous membrane Procedures: Special Stain Group II Surgery Specimen Level IV Alcian Blue/PAS (control) HEADER OPERATION: EGD with biopsies PRE-OP DIAGNOSIS: Alternating constipation and diarrhea, Spencer's esophagus, Irritable bowel syndrome with diarrhea, gastroparesis TISSUE SUBMITTED: A - Distal esophagus biopsy, B - Duodenum biopsy, C - Gastric antrum biopsy. MICROSCOPIC DIAGNOSIS A. Distal esophagus, biopsy: Gastroesophageal junctional mucosa with mild chronic inflammation. No evidence of goblet cell metaplasia. See comment. B. Duodenum, biopsy: No pathologic change. C. Gastric antrum, biopsy: Chronic gastritis. See comment. AM:brayden 02/16/2023 COMMENT A. Alcian blue/PAS stain with matched control supports the above diagnosis. C. The results of immunohistochemistry for Helicobacter pylori will be reported separately ([id number]). MICROSCOPIC DESCRIPTION Slides are reviewed. GROSS DESCRIPTION A - Received in fixative is one container labeled with the patient's name and designated distal esophagus biopsy. The specimen consists of multiple irregular fragments of light presley soft tissue that in aggregate measure 1.0 x 0.6 x 0.1 cm. The specimen is totally submitted in one cassette. B - Received in fixative is one container labeled with the patient's name and designated duodenum biopsy. The specimen consists of one irregular fragment of light presley soft tissue that measures 0.4 x 0.4 x 0.1 cm. The specimen is totally submitted in one cassette. C - Received in fixative is one container labeled with the patient's name and designated gastric antrum biopsy. The specimen consists of one irregular fragment of light presley soft tissue that measures 0.5 x 0.5 x 0.1 cm. The specimen is totally submitted in one cassette. / SJ:rg 02/15/2023 TC:3 CPT: 54017 x3, 49883
--- NOTE | 2023-02-15 07:40 | OP.EGD_ITS ---
Patient Name: Radha Ramos Procedure Date: 02/15/2023 7:13 AM Date of : 1955 Age: 67 Procedure: Upper GI endoscopy Indications: Functional Dyspepsia, Heartburn, Spencer's esophagus Providers: Tyree Keita DO Medicines: Monitored Anesthesia Care Patient Profile: This is a 67 year old female. Refer to note in patient chart for documentation of history and physical. Patient has symptoms of chronic abdominal cramping, chronic right upper quadrant abdominal pain and chronic heartburn. Complications: No immediate complications. Procedure: Pre-Anesthesia Assessment: - Prior to the procedure, a History and Physical was performed, and patient medications and allergies were reviewed. The patient is competent. The risks and benefits of the procedure and the sedation options and risks were discussed with the patient. All questions were answered and informed consent was obtained. Patient identification and proposed procedure were verified by the physician in the pre-procedure area. Mental Status Examination: alert and oriented. Airway Examination: normal oropharyngeal airway and neck mobility. Respiratory Examination: clear to auscultation. CV Examination: normal. Prophylactic Antibiotics: The patient does not require prophylactic antibiotics. Prior Anticoagulants: The patient has taken no anticoagulant or antiplatelet agents. ASA Grade Assessment: II - A patient with mild systemic disease. After reviewing the risks and benefits, the patient was deemed in satisfactory condition to undergo the procedure. The anesthesia plan was to use monitored anesthesia care (MAC). Immediately prior to administration of medications, the patient was re-assessed for adequacy to receive sedatives. The heart rate, respiratory rate, oxygen saturations, blood pressure, adequacy of pulmonary ventilation, and response to care were monitored throughout the procedure. The physical status of the patient was re-assessed after the procedure. After obtaining informed consent, the endoscope was passed under direct vision. Throughout the procedure, the patient's blood pressure, pulse, and oxygen saturations were monitored continuously. The gastroscope was introduced through the mouth, and advanced to the second part of duodenum. Scope In: 7:22:23 AM Scope Out: 7:28:31 AM Total Procedure Duration Time 0 hours 6 minutes 8 seconds Findings: The Z-line was irregular and was found 39 cm from the incisors. Biopsies were taken with a cold forceps for histology. Verification of patient identification for the specimen was done. Estimated blood loss was minimal. Diffuse mildly erythematous mucosa without bleeding was found in the gastric body. Biopsies were taken with a cold forceps for histology. Biopsies were taken with a cold forceps for Helicobacter pylori testing. Verification of patient identification for the specimen was done. Estimated blood loss was minimal. Patchy mildly erythematous mucosa without active bleeding and with no stigmata of bleeding was found in the duodenal bulb, in the first portion of the duodenum and in the second portion of the duodenum. Biopsies were taken with a cold forceps for histology. Verification of patient identification for the specimen was done. Estimated blood loss was minimal. Impression: - Z-line irregular, 39 cm from the incisors. Biopsied. - Erythematous mucosa in the gastric body. Biopsied. - Erythematous duodenopathy. Biopsied. Recommendation: - Discharge patient to home. - Resume previous diet. - Continue present medications. - Await pathology results. - Start Viberzi twice a day Procedure Code(s): --- Professional --- 73712, Esophagogastroduodenoscopy, flexible, transoral; with biopsy, single or multiple CPT copyright 2021 [employer]. All rights reserved. The codes documented in this report are preliminary and upon stations superintendent review may be revised to meet current compliance requirements. Tyree Keita DO 02/15/2023 7:40:17 AM This report has been signed electronically. Number of Addenda: 0 Note Initiated On: 02/15/2023 7:13 AM
--- NOTE | 2023-02-15 07:40 | OP.CCLET_ITS ---
02/15/2023 Leticia Pugh [address] [place] [address] Re : Upper GI endoscopy procedure for Radha Ramos Dear Dr. Pugh This procedure was performed on Wednesday, February 15, 2023. My impressions and recommendations are as follows: Impressions : - Z-line irregular, 39 cm from the incisors. Biopsied. - Erythematous mucosa in the gastric body. Biopsied. - Erythematous duodenopathy. Biopsied. Recommendations : - Discharge patient to home. - Resume previous diet. - Continue present medications. - Await pathology results. - Start Viberzi twice a day My findings are described in the full procedure note, which is enclosed. If I can be of further assistance, please feel free to contact me at . Sincerely, Tyree Keita, 02/15/2023 7:40:17 AM This report has been signed electronically.
[2023-02-15 08:23] LABS: Bedside Glucose 130 mg/dL (74-106)
== END 2023-02-15 08:21 | disposition home or self-care (01) ==
LOC: EN 06:22 → AC 06:59
PROVIDERS: PCP Internal Medicine; Referring Provider Internal Medicine; Visit Provider Internal Medicine Gastroenterology
PROC: 0DJ08ZZ Inspection of Upper Intestinal Tract, Via Natural or Artificial Opening Endoscopic (ICD-10-PCS; CPT 43235; principal; 2023-02-15 07:25)
DX: K21.00 Gastro-esophageal reflux disease with esophagitis, without bleeding (principal); E11.43 Type 2 diabetes mellitus with diabetic autonomic (poly)neuropathy; K59.00 Constipation, unspecified; K22.70 Barrett's esophagus without dysplasia; K58.0 Irritable bowel syndrome with diarrhea; K31.84 Gastroparesis; K29.50 Unspecified chronic gastritis without bleeding; Z79.82 Long term (current) use of aspirin; Z79.899 Other long term (current) drug therapy; E78.2 Mixed hyperlipidemia; Z87.19 Personal history of other diseases of the digestive system; E66.9 Obesity, unspecified; Z68.31 Body mass index [BMI] 31.0-31.9, adult
CPT/HCPCS: 43239; 82962; 88305; 88313; 88342; J7120; J2405

== ENCOUNTER 2023-08-02 09:48 | Emergency (ER) | payer OTHER, SELFPAY ==
[2023-08-02 09:48] VITALS: BP 138/89; PULSE 89; RESP 16; TEMP 36.1; O2SAT 100; BMI 31.6
--- NOTE | 2023-08-02 10:08 | EX.ED.DYSGE1 ---
HPI History of Present Illness Chief Complaint: Abd Pain Informant: patient and spouse/S.O. Narrative Narrative: 67-year-old female presenting to the emergency room with vomiting diarrhea. Patient states that Wednesday late night into Wednesday morning she began to experience watery diarrhea and vomiting. She states now whenever she attempts to drink anything the fluid comes up. She states that she is otherwise having dry heaves. No black or bloody stools. She has a history of reflux and is treated for IBS. She is also diabetic. She notes generalized myalgias and intermittent sweating. No definitive fever. No recent travel or bad food exposures. No history of ulcerative colitis or Crohn's disease. Never been diagnosed with colitis. There is a history of diverticulosis. She sees Dr. Keita from gastroenterology for IBS. She is recently changed diabetic medicines from Victoza to Mounjaro. She states she intermittently feels bloated. [facility] Medical History LLQ abdominal pain Gastritis, bile acid reflux History of IBS Low serum IgM for age Diarrhea Fatigue IBS (irritable bowel syndrome) Irritable bowel syndrome with diarrhea Spencer esophagus Diabetes High cholesterol Back pain Dietary restriction History of hiatal hernia Gastric reflux Non-smoker History of echocardiogram History of stress test Cardiology follow-up encounter History of irregular heartbeat Chest pain Alternating constipation and diarrhea Abdominal pain Annular tear of lumbar disc Chest pain SVT (supraventricular tachycardia) Diabetes Chest pressure Left inguinal hernia Racing heart beat Enlarged thyroid Vitamin D deficiency Vitamin B12 deficiency H/O urinary tract infection Low back problem Arthritis UTI (urinary tract infection) Head ache Segmental and somatic dysfunction of lumbar region Segmental and somatic dysfunction of pelvic region DDD (degenerative disc disease), lumbar Facet arthritis of lumbar region Type 2 diabetes mellitus Nonrheumatic mitral (valve) prolapse Paroxysmal supraventricular tachycardia Dyspnea on exertion Mixed hyperlipidemia Atypical chest pain Chest pain Night sweats Encounter for long-term current use of high risk medication Palpitations Mitral valve prolapse Wound, open, abdominal wall, anterior Diabetes mellitus Abscess of abdominal wall Post-op pain Home Medications ?Medication ?Instructions ?Recorded ?Last Taken ?Type ezetimibe 10 mg tablet (Zetia) 10 mg PO DAILY cholesterol 09/24/14 02/05/22 History oxybutynin chloride 5 mg tablet 5 mg PO DAILY PRN bladder 09/21/19 02/05/22 History glimepiride 1 mg tablet (Amaryl) 2 mg PO .PM blood sugar 05/07/20 02/05/22 History metoprolol tartrate 25 mg tablet 50 mg (2 x 25 mg) PO DAILY 07/09/22 Unknown Rx Clarification of instructions #180 tabs cholecalciferol (vitamin D3) 125 125 mcg PO DAILY 10/21/22 Unknown History mcg (5,000 unit) capsule mecobalamin (vitamin B12) 1,000 1,000 mcg PO DAILY 10/21/22 Unknown History mcg chewable tablet Oral appliance #1 ea 01/26/23 Unknown Rx cholestyramine-aspartame 4 gram 4 g PO DAILY 05/04/23 Unknown History oral powder for susp in a packet (Cholestyramine Light) ondansetron 4 mg disintegrating 4 mg PO Q6H PRN PRN Nausea #15 tabs 08/02/23 Unknown Rx tablet tirzepatide 7.5 mg/0.5 mL 7.5 mg subcut .weekly 08/02/23 Unknown History subcutaneous pen injector (Eli) Allergy/AdvReac Type Severity Reaction Status Date / Time exenatide (From Byetta) AdvReac Severe dizziness Verified 08/02/23 09:48 pravastatin (From Pravachol) AdvReac Severe Myalgias Verified 08/02/23 09:48 atorvastatin (From Lipitor) AdvReac Intermediate Muscle pain Verified 08/02/23 09:48 simvastatin (From Zocor) AdvReac Intermediate Myalgias Verified 08/02/23 09:48 Family History Mother CAD (coronary artery disease) Heart disease Hypertension Diabetes Myocardial infarction, Onset Age: 78 Hyperlipidemia Father Brain tumor Cancer Hyperlipidemia Hypertension Brother Aortic aneurysm Hyperlipidemia Hypertension Grandmother Arthritis Grandfather Diabetes Surgical History History of esophagogastroduodenoscopy (EGD) History of colonoscopy History of cardiac catheterization S/P left inguinal hernia repair History of appendectomy History of shoulder surgery History of hysterectomy History of foot surgery History of cholecystectomy S/P foot surgery Social History household members: spouse housing: house current occupational status: employed 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 [employer]. Smoking Status: Never smoker alcohol intake: never substance use type: does not use diet: low carbohydrate caffeine: Yes Type: carbonated beverages Number of servings: 1 what type of physical activity do you participate in: walking frequency: 1-2 times per week seatbelt use: always do you feel safe at home: Yes ROS ROS ED Constitutional Constitutional ED: Reports sweats; Denies chills or weight loss Eyes Eyes: Denies change in vision or diplopia ENT ENT ED: Denies ear pain, rhinorrhea or sore throat Cardiovascular Cardiovascular: Denies chest pain, orthopnea, palpitations or racing heartbeat Respiratory/Chest Respiratory/Chest: Denies cough, dyspnea or orthopnea Gastrointestinal Gastrointestinal: Reports diarrhea, nausea and vomiting; Denies abdominal pain Genitourinary Genitourinary ED: Denies dysuria, hematuria or urinary frequency Musculoskeletal Musculoskeletal: Reports myalgias; Denies arthralgias Integumentary Denies abscess or rash Neurologic Neurologic: Denies headache(s) or weakness Psychiatric Psychiatric: Denies anxiety, depression, suicidal ideation or suicidal thoughts Endocrine Endocrinology: Denies polydipsia, polyphagia or polyuria Allergic/Immunologic Allergic/Immunologic ED: Denies mouth swelling, tongue swelling or urticaria EXAM Physical Exam Const Vital Signs: 08/02/23 09:48 08/02/23 11:48 Temperature 97.0 F L Temperature Source Temporal Pulse Rate 89 74 Respiratory Rate 16 16 Blood Pressure 138/89 H 134/89 H Blood Pressure Mean 105 104 Pulse Ox 100 97 Oxygen Delivery Method Room Air Room Air Positive well nourished and well developed General Appearance ED: well developed HEENT Reports normocephalic, head/scalp atraumatic and moist mucous membranes Eyes PERRL and EOMs intact bilaterally Neck no lymphadenopathy, supple and no JVD Resp normal respiratory effort and clear to auscultation bilaterally Cardio regular rate, regular rhythm and no murmurs GI Inspection: Negative for abdominal distention Auscultation: normoactive bowel sounds Palpation: soft and tender other (Mild diffuse tenderness to palpation. No guarding or rebound. The abdomen is still soft.); Negative for guarding or rebound tenderness present Back/Spine no CVA tenderness and normal ROM Extremity normal to inspection General Extremety ED: Negative for edema General Extremity: Negative for edema Neuro oriented x3 and CN's II-XII intact bilaterally Sensorium / Orientation: alert Motor Exam: strength 5/5 throughout Psych mental status grossly normal Mood & Affect: Negative for depressed or tearful Skin no rashes or lesions noted and no wounds MDM MDM MDM Narrative Medical decision making narrative: Differential diagnosis includes but not limited to colitis gastroenteritis gastroparesis pancreatitis biliary colic hepatitis reflux medication reaction to Mounjaro. White count is normal at 6.6 with 73 neutrophils otherwise negative. Hemoglobin 15.3. Sodium potassium within normal limits. CO2 is 22 with an anion gap of 7. BUN of 15 with a creatinine 1.10. Glucose 172 again she is a known diabetic. LFTs and lipase are normal. Patient received a liter of IV fluids as well as Zofran. I ordered stool studies patient was able to produce a small amount but unfortunately urinated with it. Her vital signs appear stable. Most likely this is a viral gastroenteritis. The abdomen does not palpate distended. Does not appear surgical in nature. I did recommend supportive care. I will write for Ani ODT. Patient to follow-up if not improving. History & Record Review Discussion w/independent historian: Patient and Significant other Lab Data Attestation: I reviewed the patient's lab results. Labs: Laboratory Results - last 24 hr 08/02/23 10:10 WBC 6.6 RBC 5.38 Hgb 15.3 H Hct 45.5 MCV 84.6 MCH 28.4 MCHC 33.6 RDW Std Deviation 36.7 RDW Coeff of Gia 12.1 Plt Count 214 MPV 9.3 Immature Gran % (Auto) 0.300 Neut % (Auto) 73.0 H Lymph % (Auto) 19.4 [place] % (Auto) 6.2 Eos % (Auto) 0.8 Baso % (Auto) 0.3 Absolute Neuts (auto) 4.8 Absolute Lymphs (auto) 1.28 Nucleated RBC % 0 Sodium 137 Potassium 4.1 Chloride 108 H Carbon Dioxide 22.0 Anion Gap 7 BUN 15 Creatinine 1.10 H Estim Creat Clear Calc 54.54 Est GFR (MDRD) Af Amer 64 Est GFR (MDRD) Non-Af 53 L BUN/Creatinine Ratio 13.6 Glucose 172 H Calcium 9.3 Total Bilirubin 0.90 Direct Bilirubin 0.22 AST 22 ALT 31 Alkaline Phosphatase 99 Total Protein 7.7 Albumin 4.2 Globulin 3.5 Lipase 44 Discharge Plan Triage Chief Complaint: Abd Pain Other Complaint: Nausea/Vomiting ED Provider: James Russell Dx/Rx/DC Orders Clinical Impression: Abdominal pain, vomiting, and diarrhea Instructions: ED Gastroenteritis, Viral (Adult) Prescriptions: New ondansetron 4 mg tablet,disintegrating 4 mg PO Q6H PRN PRN (Reason: Nausea) Qty: 15 0RF No Action oxybutynin chloride 5 mg tablet 5 mg PO DAILY PRN (Reason: bladder) metoprolol tartrate 25 mg tablet 50 mg PO DAILY Qty: 180 3RF cholecalciferol (vitamin D3) 125 mcg (5,000 unit) capsule 125 mcg PO DAILY mecobalamin (vitamin B12) 1,000 mcg tablet,chewable 1,000 mcg PO DAILY cholestyramine-aspartame [Cholestyramine Light] 4 gram powder in packet 4 g PO DAILY Rx Instructions: administer w/meal; avoid other meds within 1hr before or 4-6hr after dose ezetimibe [Zetia] 10 MG tablet 10 mg PO DAILY Patient Comments: cholesterol-need to take glimepiride [Amaryl] 1 mg tablet 2 mg PO .PM Mounjaro 7.5 mg/0.5 mL pen injector 7.5 mg subcut .weekly (DME) Oral appliance See Rx Instructions .ROUTE .MEDSUPPLY Qty: 1 0RF Rx Instructions: As directed Primary Care Provider: Leticia Pugh Referrals: Leticia Pugh DO [Primary Care Provider] - 3-5 Days if not improving Print Language: Pashto Disposition Disposition: Home, Self Care
[2023-08-02 10:18] LABS: Absolute Lymphocyte Count 1.28 X10^3/uL (0.83-4.51); Absolute Neutrophil Count 4.8 X10^3/uL (2.0-7.7); Basophil# 0.02 X10^3/uL; Basophil% 0.3 % (0-1); Eosinophil# 0.05 X10^3/uL; Eosinophils% 0.8 % (0-5); Hematocrit 45.5 % (37-47); Hemoglobin 15.3 g/dL (12.0-15.0); Lymphocyte # 1.28 X10^3/ul (0.83-4.51); Lymphocyte % 19.4 % (19-41); Mean Corp Hgb Conc 33.6 g/dL (32-36); Mean Corpuscular Hgb 28.4 pg (27.0-32.0); Mean Corpuscular Volume 84.6 fL (81-99); Mean Platelet Vol. 9.3 fl (6.2-12.0); Monocyte# 0.41 X10^3/uL; Monocyte% 6.2 % (0-10); NRBC Flagged by Analyzer 0 % (0-5); Neutrophil # 4.81 X10^3/uL (2.7-7.7); Platelet Count 214 K/mm3 (150-450); RBC Distribution Width CV 12.1 % (11.6-14.6); RBC Distribution Width SD 36.7 fl (35.1-43.9); Red Blood Count 5.38 M/mm3 (4.2-5.4); White Blood Count 6.6 K/mm3 (4.4-11.0)
[2023-08-02] MEDS: Ondansetron 4 MG/2 ML Vial IV (10:18)
[2023-08-02] MEDS: 0.9% Normal Saline (1000mL) 1,000 ML 999 ML IV (10:18)
[2023-08-02 10:36] LABS: AST(SGOT) 22 U/L (15-37); Alanine Aminotransfer ALT/SGPT 31 U/L (13-56); Albumin, Serum 4.2 g/dL (3.2-5.0); Alkaline Phosphatase 99 U/L (45-117); Anion Gap 7 (5-15); BUN 15 mg/dL (7-18); BUN/Creat Ratio 13.6 RATIO (10-20); Bilirubin, Direct 0.22 mg/dL (0.00-0.30); Calcium,Total 9.3 mg/dL (8.5-10.1); Chloride 108 mmol/L (98-107); EST Glomerular Filtration Rate 53 mL/min (>60); Est Glom Filt Rate - Afr Amer 64 mL/min (>60); Estimated Creatinine Clearance 54.54 ml/min; Globulin 3.5 g/dL (2.2-4.2); Glucose 172 mg/dL (74-106); Lipase 44 U/L (13-75); Potassium 4.1 mmol/L (3.5-5.1); Protein, Total 7.7 g/dL (6.4-8.2); Sodium Level 137 mmol/L (136-145)
[2023-08-02 11:48] VITALS: BP 134/89; PULSE 74; RESP 16; O2SAT 97
[2023-08-02 12:18] VITALS: BP 148/79; PULSE 89; RESP 18; TEMP 36.4; O2SAT 98
== END 2023-08-02 13:07 | disposition home or self-care (01) ==
PROVIDERS: Emergency Provider Emergency Medicine; PCP Internal Medicine; Visit Provider Emergency Medicine
DX: R10.9 Unspecified abdominal pain (principal); E11.9 Type 2 diabetes mellitus without complications; R11.2 Nausea with vomiting, unspecified; M79.10 Myalgia, unspecified site; E78.00 Pure hypercholesterolemia, unspecified; K58.0 Irritable bowel syndrome with diarrhea; Z79.84 Long term (current) use of oral hypoglycemic drugs; Z79.899 Other long term (current) drug therapy; Z87.19 Personal history of other diseases of the digestive system
CPT/HCPCS: 80048; 80076; 83690; 85025; 96361; 96374; 99283; J7030; A4216; J2405

== ENCOUNTER → 2023-08-27 | Outpatient (CLI) | payer OTHER, SELFPAY ==
--- NOTE | 2023-08-27 11:59 | BI_ITS ---
MAMMOGRAPHY - BILATERAL SCREENING REASON FOR EXAM: Female, 67 years old. Routine annual screening examination. PERTINENT HISTORY: Non-contributory. TECHNIQUE: Digital bilateral breast jeff (3D mammographic acquisition) in the CC and MLO projections. 2-D mediolateral oblique (MLO) and craniocaudad (CC) views of both breasts were obtained. CAD: Full Field Digital Mammography with Computer Added Detection was performed. COMPARISON: Comparison is made with prior study dated August 24, 2022 and August 21, 2021. FINDINGS: Breast Composition: The breasts are heterogeneously dense, which may obscure small masses. There are no dominant masses or suspicious calcifications. Stable bilateral fat containing axillary lymph nodes. No other significant abnormalities are identified. There has been no significant change since the prior study. BI/SCRN MAMM (CAD)W/JEFF BILAT IMPRESSION: Stable bilateral screening mammogram. Yearly follow-up mammogram recommended. (A) ASSESSMENT CATEGORY: BIRADS Category 2: Benign. A letter regarding these results will be sent to the patient by the facility within 30 days. Approximately 10% of breast cancers are not detected by mammography. A normal mammogram should not delay biopsy of a clinically suspicious abnormality. [id number] Electronically Signed: Ross Saxena MD at 12:46 EDT ,
== END | disposition home or self-care (01) ==
LOC: OPBI 11:58
PROVIDERS: PCP Internal Medicine; Referring Provider Advanced Practice Midwife; Visit Provider Advanced Practice Midwife
DX: Z12.31 Encounter for screening mammogram for malignant neoplasm of breast (principal)
CPT/HCPCS: 77063; 77067

== ENCOUNTER 2023-12-22 09:56 | Emergency (ER) | payer OTHER, SELFPAY ==
[2023-12-22] VITALS (7 sets, daily range): BP systolic 145–185; BP diastolic 74–99; PULSE 69–73; RESP 15–17; TEMP 36.2–36.6; O2SAT 97–100; BMI 30.7
--- NOTE | 2023-12-22 10:08 | EKG12_ITS ---
Test Reason : cp Blood Pressure : / mmHG Vent. Rate : 071 BPM Atrial Rate : 071 BPM P-R Int : 124 ms QRS Dur : 090 ms QT Int : 398 ms P-R-T Axes : 050 053 049 degrees QTc Int : 432 ms Normal sinus rhythm Normal ECG Confirmed by Wilmer Mullins ([id number]), web content editor HANDY MINAYA ([id number]) on 12/23/2023 6:39:41 AM Referred By: Confirmed By:Wilmer Mullins
--- NOTE | 2023-12-22 10:11 | EDS_ITS ---
HPI History of Present Illness Chief Complaint: Chest Pain Informant: patient and spouse/S.O. Narrative Narrative: 68-year-old female presenting to the emergency room for the evaluation of chest pain. Patient states that Wednesday she developed an intermittent chest heaviness that seem to radiate to her jaw and into her left arm. She states it was intermittent until around 4:00 this morning. She states now it has been waxing and waning but has not gone away. She notes no change in exercise tolerance. She has no known coronary artery disease but does have a remote history of SVT. Patient notes that she has seen Dr. Keita in the past and had an EGD originally thought to have Spencer's and was placed on Protonix. She states that her last scope did not show Spencer's esophagus. Patient notes that this morning she woke up and noted that she was sweaty. She does not feel any radiation to the back. She denies any DVT PE risk factors. She notes associated diagnoses of diabetes mixed hyperlipidemia mitral valve prolapse. She does have a history of sleep apnea. She denies any known aortic aneurysm or familial history of dissection. She denies any leg symptoms. [facility] Medical History LLQ abdominal pain Gastritis, bile acid reflux History of IBS Low serum IgM for age Diarrhea Fatigue IBS (irritable bowel syndrome) Irritable bowel syndrome with diarrhea Spencer esophagus Diabetes High cholesterol Back pain Dietary restriction History of hiatal hernia Gastric reflux Non-smoker History of echocardiogram History of stress test Cardiology follow-up encounter History of irregular heartbeat Chest pain Alternating constipation and diarrhea Abdominal pain Annular tear of lumbar disc Chest pain SVT (supraventricular tachycardia) Diabetes Chest pressure Left inguinal hernia Racing heart beat Enlarged thyroid Vitamin D deficiency Vitamin B12 deficiency H/O urinary tract infection Low back problem Arthritis UTI (urinary tract infection) Head ache Segmental and somatic dysfunction of lumbar region Segmental and somatic dysfunction of pelvic region DDD (degenerative disc disease), lumbar Facet arthritis of lumbar region Type 2 diabetes mellitus Nonrheumatic mitral (valve) prolapse Paroxysmal supraventricular tachycardia Dyspnea on exertion Mixed hyperlipidemia Atypical chest pain Chest pain Night sweats Encounter for long-term current use of high risk medication Palpitations Mitral valve prolapse Wound, open, abdominal wall, anterior Diabetes mellitus Abscess of abdominal wall Post-op pain Home Medications ?Medication ?Instructions ?Recorded ?Last Taken ?Type ezetimibe 10 mg tablet (Zetia) 10 mg PO DAILY cholesterol 09/24/14 02/05/22 History oxybutynin chloride 5 mg tablet 5 mg PO DAILY PRN bladder 09/21/19 02/05/22 History glimepiride 1 mg tablet (Amaryl) 2 mg PO .PM blood sugar 05/07/20 02/05/22 History cholecalciferol (vitamin D3) 125 125 mcg PO DAILY 10/21/22 Unknown History mcg (5,000 unit) capsule mecobalamin (vitamin B12) 1,000 1,000 mcg PO DAILY 10/21/22 Unknown History mcg chewable tablet Oral appliance #1 ea 01/26/23 Unknown Rx ondansetron 4 mg disintegrating 4 mg PO Q6H PRN PRN Nausea #15 tabs 08/02/23 Unknown Rx tablet tirzepatide 7.5 mg/0.5 mL 7.5 mg subcut .weekly 08/02/23 Unknown History subcutaneous pen injector (Eli) metoprolol tartrate 25 mg tablet 50 mg (2 x 25 mg) PO DAILY 08/17/23 Unknown Rx Clarification of instructions #180 tabs cholestyramine-aspartame 4 gram 4 g PO DAILY #60 ea 11/12/23 Unknown Rx oral powder for susp in a packet (Cholestyramine Light) Allergy/AdvReac Type Severity Reaction Status Date / Time exenatide (From Byetta) AdvReac Severe dizziness Verified 12/22/23 10:00 pravastatin (From Pravachol) AdvReac Severe Myalgias Verified 12/22/23 10:00 atorvastatin (From Lipitor) AdvReac Intermediate Muscle pain Verified 12/22/23 10:00 simvastatin (From Zocor) AdvReac Intermediate Myalgias Verified 12/22/23 10:00 Family History Mother CAD (coronary artery disease) Heart disease Hypertension Diabetes Myocardial infarction, Onset Age: 78 Hyperlipidemia Father Brain tumor Cancer Hyperlipidemia Hypertension Brother Aortic aneurysm Hyperlipidemia Hypertension Grandmother Arthritis Grandfather Diabetes Surgical History History of esophagogastroduodenoscopy (EGD) History of colonoscopy History of cardiac catheterization S/P left inguinal hernia repair History of appendectomy History of shoulder surgery History of hysterectomy History of foot surgery History of cholecystectomy S/P foot surgery Social History household members: spouse housing: house current occupational status: employed 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 [employer]. Smoking Status: Never smoker alcohol intake: never substance use type: does not use diet: low carbohydrate caffeine: Yes Type: carbonated beverages Number of servings: 1 what type of physical activity do you participate in: walking frequency: 1-2 times per week seatbelt use: always do you feel safe at home: Yes ROS ROS ED Constitutional Constitutional ED: Denies chills, fever(s) or weight loss Eyes Eyes: Denies change in vision or diplopia ENT ENT ED: Denies ear pain, rhinorrhea or sore throat Cardiovascular Cardiovascular: Reports as per HPI, chest pain and other Details: Jaw and left arm discomfort ; Denies orthopnea, palpitations or racing heartbeat Respiratory/Chest Respiratory/Chest: Denies cough, dyspnea or orthopnea Gastrointestinal Gastrointestinal: Reports diarrhea; Denies abdominal pain, nausea or vomiting Genitourinary Genitourinary ED: Denies dysuria, hematuria or urinary frequency Musculoskeletal Musculoskeletal: Denies arthralgias, back pain or myalgias Integumentary Denies abscess or rash Neurologic Neurologic: Denies headache(s), paresthesias or weakness Psychiatric Psychiatric: Denies anxiety, depression, suicidal ideation or suicidal thoughts Endocrine Endocrinology: Denies polydipsia, polyphagia or polyuria Allergic/Immunologic Allergic/Immunologic ED: Denies mouth swelling, tongue swelling or urticaria EXAM Physical Exam Const Vital Signs: 12/22/23 09:57 12/22/23 10:57 12/22/23 11:00 Temperature 97.2 F L Temperature Source Temporal Pulse Rate 73 70 71 Respiratory Rate 15 17 16 Blood Pressure 156/94 H 165/74 H 165/74 H Blood Pressure Mean 114 104 104 Pulse Ox 99 97 98 Oxygen Delivery Method Room Air 12/22/23 12:00 12/22/23 12:30 12/22/23 13:00 Temperature Temperature Source Pulse Rate 73 70 Respiratory Rate 16 15 Blood Pressure 158/89 H 185/99 H 152/77 H Blood Pressure Mean 112 127 100 Pulse Ox 98 97 Oxygen Delivery Method Room Air Positive well nourished and well developed General Appearance ED: well developed and NAD HEENT Reports normocephalic, head/scalp atraumatic and moist mucous membranes Eyes PERRL and EOMs intact bilaterally Neck no lymphadenopathy, supple and no JVD Resp normal respiratory effort and clear to auscultation bilaterally Cardio regular rate, regular rhythm and no murmurs Peripheral Pulses: pulses 2+ throughout GI normal to inspection, nondistended, normoactive bowel sounds and non-tender Palpation: soft Back/Spine no CVA tenderness and normal ROM Extremity normal to inspection General Extremety ED: Negative for edema General Extremity: Negative for edema Neuro oriented x3 and CN's II-XII intact bilaterally Sensorium / Orientation: alert Motor Exam: strength 5/5 throughout Psych mental status grossly normal Mood & Affect: Negative for depressed or tearful Skin no rashes or lesions noted and no wounds MDM MDM MDM Narrative Medical decision making narrative: Differential diagnosis would include but not limited to esophagitis esophageal spasm acute coronary syndrome aortic dissection/aneurysm pulmonary embolism thorax EKG is normal sinus rhythm with no significant change from prior. 2 sets of cardiac enzymes are within normal limits CBC is normal BMP with a creatinine 1.12 glucose 152. My independent interpretation of the chest x-ray is no acute process. I discussed the above findings with the patient felt that it would be unlikely to have been a cardiac event. My recommendation that she obtain outpatient cardiac stress testing either through primary care or cardiology. I did discuss the case with Dr. Mullins from cardiology who concurs with the above plan. Patient is comfortable with this and we will discharge her home. She is to return if new symptoms worsening or concerns History & Record Review Discussion w/independent historian: Patient Lab Data Attestation: I reviewed the patient's lab results. Labs: Laboratory Results - last 24 hr 12/22/23 12/22/23 10:19 11:55 WBC 6.4 RBC 5.31 Hgb 15.0 Hct 43.9 MCV 82.7 MCH 28.2 MCHC 34.2 RDW Std Deviation 37.8 RDW Coeff of Gia 12.5 Plt Count 227 MPV 9.3 Immature Gran % (Auto) 0.200 Neut % (Auto) 61.2 Lymph % (Auto) 31.0 [place] % (Auto) 6.1 Eos % (Auto) 1.2 Baso % (Auto) 0.3 Absolute Neuts (auto) 3.9 Absolute Lymphs (auto) 1.99 Nucleated RBC % 0 D-Dimer Quant (PE/DVT) 0.27 Sodium 139 Potassium 4.0 Chloride 109 H Carbon Dioxide 25.0 Anion Gap 5 BUN 12 Creatinine 1.12 H Estim Creat Clear Calc 52.14 Est GFR (MDRD) Af Amer 62 Est GFR (MDRD) Non-Af 52 L BUN/Creatinine Ratio 10.7 Glucose 152 H Calcium 10.1 Troponin I High Sens < 3 L 3 Radiography Diagnostic Testing: Clinical Impression(s) from Imaging Studies Chest X-Ray 12/22/23 10:35 IMPRESSION: No acute cardiopulmonary process identified. Electronically Signed: Pura Wilks MD at 11:20 EDT , EKG Initial EKG: Attestation: I personally reviewed and interpreted this EKG as follows: Comments: Normal sinus rhythm ventricular rate of 71 bpm Prior EKG tracings: available for review Prior: Unchanged (2023) Management Discussion w/another healthcare provider: Electrical/Instrument Technician (Dr. Mullins) Discharge Plan Triage Chief Complaint: Chest Pain ED Provider: James Russell Dx/Rx/DC Orders Clinical Impression: Chest pain Instructions: ED Chest Pain, Uncertain Cause Prescriptions: No Action oxybutynin chloride 5 mg tablet 5 mg PO DAILY PRN (Reason: bladder) cholecalciferol (vitamin D3) 125 mcg (5,000 unit) capsule 125 mcg PO DAILY mecobalamin (vitamin B12) 1,000 mcg tablet,chewable 1,000 mcg PO DAILY ezetimibe [Zetia] 10 MG tablet 10 mg PO DAILY Patient Comments: cholesterol-need to take glimepiride [Amaryl] 1 mg tablet 2 mg PO .PM Mounjaro 7.5 mg/0.5 mL pen injector 7.5 mg subcut .weekly ondansetron 4 mg tablet,disintegrating 4 mg PO Q6H PRN PRN (Reason: Nausea) Qty: 15 0RF (DME) Oral appliance See Rx Instructions .ROUTE .MEDSUPPLY Qty: 1 0RF Rx Instructions: As directed metoprolol tartrate 25 mg tablet 50 mg PO DAILY Qty: 180 3RF cholestyramine-aspartame [Cholestyramine Light] 4 gram powder in packet 4 g PO DAILY Qty: 60 3RF Rx Instructions: administer w/meal; avoid other meds within 1hr before or 4-6hr after dose Primary Care Provider: Leticia Pugh Referrals: Leticia Pugh, [Primary Care Provider] - As Needed Wilmer Mullins MD [Med Staff - Active Staff] - (call for stress test) Print Language: Belarusian Disposition Disposition: Home, Self Care
[2023-12-22 10:26] LABS: Absolute Lymphocyte Count 1.99 X10^3/uL (0.83-4.51); Absolute Neutrophil Count 3.9 X10^3/uL (2.0-7.7); Basophil# 0.02 X10^3/uL; Basophil% 0.3 % (0-1); Eosinophil# 0.08 X10^3/uL; Eosinophils% 1.2 % (0-5); Hematocrit 43.9 % (37-47); Lymphocyte # 1.99 X10^3/ul (0.83-4.51); Mean Corp Hgb Conc 34.2 g/dL (32-36); Mean Corpuscular Hgb 28.2 pg (27.0-32.0); Mean Corpuscular Volume 82.7 fL (81-99); Mean Platelet Vol. 9.3 fl (6.2-12.0); Monocyte# 0.39 X10^3/uL; Monocyte% 6.1 % (0-10); NRBC Flagged by Analyzer 0 % (0-5); Neutrophil # 3.92 X10^3/uL (2.7-7.7); Neutrophil % 61.2 % (47-70); Platelet Count 227 K/mm3 (150-450); RBC Distribution Width CV 12.5 % (11.6-14.6); RBC Distribution Width SD 37.8 fl (35.1-43.9); Red Blood Count 5.31 M/mm3 (4.2-5.4); White Blood Count 6.4 K/mm3 (4.4-11.0)
--- NOTE | 2023-12-22 10:35 | RAD_ITS ---
HISTORY: chest pain. TECHNIQUE: XR Chest 1 View. COMPARISON: 07/08/2022. FINDINGS: CARDIOMEDIASTINAL BORDERS: Cardiac silhouette within normal limits in size. Mediastinal contour unremarkable. LUNGS: Radiographically clear. PLEURA: No pleural effusion or pneumothorax seen. OSSEOUS STRUCTURES: Spinal osteophytes present. RAD/Chest 1 View (Portable) IMPRESSION: No acute cardiopulmonary process identified. Electronically Signed: Pura Wilks MD at 11:20 EDT ,
[2023-12-22 10:42] LABS: Anion Gap 5 (5-15); BUN 12 mg/dL (7-18); BUN/Creat Ratio 10.7 RATIO (10-20); Calcium,Total 10.1 mg/dL (8.5-10.1); Chloride 109 mmol/L (98-107); Creatinine, Serum 1.12 mg/dL (0.55-1.02); EST Glomerular Filtration Rate 52 mL/min (>60); Est Glom Filt Rate - Afr Amer 62 mL/min (>60); Estimated Creatinine Clearance 52.14 ml/min; Glucose 152 mg/dL (74-106); Sodium Level 139 mmol/L (136-145); Troponin-I HS (w/2H Reflex) < 3 pg/mL (3.0-54.0)
[2023-12-22 10:58] LABS: D-Dimer Quantitative (DVT/PE) 0.27 FEU/ug/m (0.27-0.49)
[2023-12-22 12:21] LABS: Reflex Troponin-HS? (from REC) Y
[2023-12-22 12:32] LABS: Troponin-I HS 3 pg/mL (3.0-54.0)
== END 2023-12-22 13:43 | disposition home or self-care (01) ==
PROVIDERS: Emergency Provider Emergency Medicine; PCP Internal Medicine; Visit Provider Emergency Medicine
DX: R07.9 Chest pain, unspecified (principal); E11.9 Type 2 diabetes mellitus without complications; I34.1 Nonrheumatic mitral (valve) prolapse; E78.2 Mixed hyperlipidemia; G47.30 Sleep apnea, unspecified; Z79.84 Long term (current) use of oral hypoglycemic drugs; Z79.85 Long-term (current) use of injectable non-insulin antidiabetic drugs; Z79.899 Other long term (current) drug therapy
CPT/HCPCS: 71045; 80048; 84484; 85025; 85379; 93005; 99283; A4216

== ENCOUNTER → 2023-12-29 | Outpatient (CLI) | payer OTHER, SELFPAY ==
--- NOTE | 2023-12-29 12:59 | ECHOD_ITS ---
Reason For Study: CHEST PAIN Procedure This was a 2D Doppler, Color Flow transthoracic echocardiogram. Exam performed in department. Left Ventricle Normal LV size. The left ventricular ejection fraction is 60 %. Stage 1 diastolic dysfunction. No regional wall motion abnormalities noted. Right Ventricle Normal RV size. Normal systolic function. Atria Normal left atrium. Normal right atrium. Mitral Valve Normal mitral valve. Tricuspid Valve Normal tricuspid valve. Aortic Valve Trisinus/trileaflet aortic valve. Pulmonic Valve Normal pulmonic valve. Great Vessels Normal aortic root. The pulmonary artery is normal size. Normal inferior vena cava. Pericardium/Pleural No pericardial effusion. MMode/2D Measurements & Calculations LVIDd: 4.3 cm IVSd: 1.1 cm LVOT diam: 2.0 cm LVIDs: 2.5 cm LVPWd: 0.94 cm LVOT area: 3.2 cm2 RVDd: 3.2 cm FS: 41.3 % asc Aorta Diam: 2.9 cm LAV(MOD-bp): 26.9 ml LVAd ap4: 17.1 cm2 LAV(MOD-bp) Indexed: 14.2 ml/m2 LVLd ap4: 6.3 cm LAV(MOD-sp2): 25.9 ml EDV(MOD-sp4): 39.5 ml LAV(MOD-sp4): 26.6 ml EDV(sp4-el): 39.6 ml LVAs ap4: 9.6 cm2 LVLs ap4: 5.3 cm ESV(MOD-sp4): 14.5 ml ESV(sp4-el): 14.9 ml EF(MOD-sp4): 63.4 % EF(sp4-el): 62.2 % LVAd ap2: 14.9 cm2 SV(MOD-sp4): 25.1 ml SV(MOD-sp2): 18.2 ml LVLd ap2: 6.3 cm EDV(MOD-sp2): 31.2 ml EDV(sp2-el): 29.9 ml LVAs ap2: 9.0 cm2 LVLs ap2: 5.3 cm ESV(MOD-sp2): 13.0 ml ESV(sp2-el): 13.0 ml EF(MOD-sp2): 58.4 % SV(sp4-el): 24.6 ml Ao sinus diam: 2.7 cm LA A4 area: 13.0 cm2 LA dimension(2D): 3.0 cm RA A4 area: 11.4 cm2 TAPSE: 1.6 cm Time Measurements MV dec time: 0.25 sec Doppler Measurements & Calculations MV E max jovany: 43.2 cm/sec Lat Peak E' Jovany: 10.1 cm/sec Med Peak E' Jovany: 10.0 cm/sec MV A max jovany: 78.0 cm/sec E/E' lat: 4.3 E/E' med: 4.3 MV E/A: 0.55 Ao V2 max: 107.2 cm/sec LV V1 max: 82.2 cm/sec MV dec slope: 171.3 cm/sec2 Ao max P.6 mmHg LV V1 max P.7 mmHg Ao V2 mean: 78.6 cm/sec LV V1 mean P.6 mmHg Ao mean P.7 mmHg LV V1 mean: 60.9 cm/sec Ao V2 VTI: 20.0 cm LV V1 VTI: 14.2 cm AV (velocity ratio): 0.71 MICA(I,D): 2.3 cm2 MICA(V,D): 2.5 cm2 SV(LVOT): 46.0 ml PA V2 max: 61.5 cm/sec PA max PG (full): 0.28 mmHg ECHO/Echo Complete Interpretation Summary The left ventricular ejection fraction is 60 %. Normal LV size. Stage 1 diastolic dysfunction. Structurally normal valves. Ordering Physician: Wilmer Mullins Referring Physician: Leticia Pugh M.D. Performed By: Veronica Almanza RDCS and Student
--- NOTE | 2023-12-29 18:18 | STRESSREP ---
Stress Test Report Exercise stress test. 68-year-old lady with a history of chest pain Stress protocol: Resting EKG demonstrates normal sinus rhythm with a rate of 82 bpm resting blood pressure is 132/82 mmHg. The patient exercised according to the regular Fabricio protocol for a total duration of 7 minutes attaining a maximum heart rate of 150 bpm which was 98% of maximum predicted heart rate; the maximum workload was 10.1 metabolic equivalents. At rest there were no ST or T wave changes noted to suggest ischemia and at peak exercise upsloping ST changes only were noted which did not meet the criteria for ischemia. No clinical angina was noted the test was terminated due to the target heart rate being achieved/fatigue. The peak blood pressure was 160/72 mmHg. Rate-pressure product was 21,900. Conclusion: Exercise stress test with no EKG criteria for ischemia at a high workload no clinical angina or arrhythmias noted.
== END | disposition home or self-care (01) ==
PROVIDERS: PCP Internal Medicine; Referring Provider Internal Medicine Cardiovascular Disease; Visit Provider Internal Medicine Cardiovascular Disease
DX: R07.9 Chest pain, unspecified (principal)
CPT/HCPCS: 93017; 93306

== ENCOUNTER 2023-12-30 14:51 | Emergency (ER) | payer OTHER, SELFPAY ==
[2023-12-30] VITALS (8 sets, daily range): BP systolic 140–161; BP diastolic 74–92; PULSE 69–89; RESP 12–28; TEMP 36.2; O2SAT 96–100; BMI 28.5
--- NOTE | 2023-12-30 17:03 | EKG12_ITS ---
Test Reason : CHEST/BACK PAIN Blood Pressure : / mmHG Vent. Rate : 073 BPM Atrial Rate : 073 BPM P-R Int : 138 ms QRS Dur : 094 ms QT Int : 406 ms P-R-T Axes : 028 032 030 degrees QTc Int : 447 ms Normal sinus rhythm Normal ECG Confirmed by INGE VIDALES, LESLYE ([id number]), web content editor HANDY MINAYA ([id number]) on 12/31/2023 9:58:59 AM Referred By: VICKY Confirmed By:LESLYE ALCAZAR MD
--- NOTE | 2023-12-30 17:05 | EDS_ITS ---
HPI History of Present Illness Chief Complaint: Chest Pain Informant: patient and spouse/S.O. Narrative Narrative: 68-year-old female presenting with pain in her left upper back near her spine that hurts worse to move. She denies any pleuritic pain or veronica dyspnea or chest discomfort. This has been here for 4 days, it was not necessarily sudden onset was gradual, she denies any obvious trigger or reason for the pain to start. She states she had a muscle relaxer tizanidine that she was trying and it did not do anything. She states prior to this last week, she was having chest discomfort radiating up into her jaw and her left arm, that resolved prior to this starting and as a result she was seen here in the ED and had testing that was negative and then subsequently had a follow-up stress test yesterday that was a treadmill + echocardiogram, which was reportedly normal. Denies leg pain or swelling. She states she went to see her PCP today for this, but was not seen and instead advised to come to the ER for this. She states she has a history of Spencer's esophagus and is on pantoprazole that was recently doubled. [facility] Medical History LLQ abdominal pain Gastritis, bile acid reflux History of IBS Low serum IgM for age Diarrhea Fatigue IBS (irritable bowel syndrome) Irritable bowel syndrome with diarrhea Spencer esophagus Diabetes High cholesterol Back pain Dietary restriction History of hiatal hernia Gastric reflux Non-smoker History of echocardiogram History of stress test Cardiology follow-up encounter History of irregular heartbeat Chest pain Alternating constipation and diarrhea Abdominal pain Annular tear of lumbar disc Chest pain SVT (supraventricular tachycardia) Diabetes Chest pressure Left inguinal hernia Racing heart beat Enlarged thyroid Vitamin D deficiency Vitamin B12 deficiency H/O urinary tract infection Low back problem Arthritis UTI (urinary tract infection) Head ache Segmental and somatic dysfunction of lumbar region Segmental and somatic dysfunction of pelvic region DDD (degenerative disc disease), lumbar Facet arthritis of lumbar region Type 2 diabetes mellitus Nonrheumatic mitral (valve) prolapse Paroxysmal supraventricular tachycardia Dyspnea on exertion Mixed hyperlipidemia Atypical chest pain Chest pain Night sweats Encounter for long-term current use of high risk medication Palpitations Mitral valve prolapse Wound, open, abdominal wall, anterior Diabetes mellitus Abscess of abdominal wall Post-op pain Home Medications ?Medication ?Instructions ?Recorded ?Last Taken ?Type ezetimibe 10 mg tablet (Zetia) 10 mg PO DAILY cholesterol 09/24/14 02/05/22 History oxybutynin chloride 5 mg tablet 5 mg PO DAILY PRN bladder 09/21/19 02/05/22 History glimepiride 1 mg tablet (Amaryl) 2 mg PO .PM blood sugar 05/07/20 02/05/22 History cholecalciferol (vitamin D3) 125 125 mcg PO DAILY 10/21/22 Unknown History mcg (5,000 unit) capsule mecobalamin (vitamin B12) 1,000 1,000 mcg PO DAILY 10/21/22 Unknown History mcg chewable tablet Oral appliance #1 ea 01/26/23 Unknown Rx ondansetron 4 mg disintegrating 4 mg PO Q6H PRN PRN Nausea #15 tabs 08/02/23 Unknown Rx tablet tirzepatide 7.5 mg/0.5 mL 7.5 mg subcut .weekly 08/02/23 Unknown History subcutaneous pen injector (Eli) metoprolol tartrate 25 mg tablet 50 mg (2 x 25 mg) PO DAILY 08/17/23 Unknown Rx Clarification of instructions #180 tabs cholestyramine-aspartame 4 gram 4 g PO DAILY #60 ea 11/12/23 Unknown Rx oral powder for susp in a packet (Cholestyramine Light) pantoprazole 40 mg tablet,delayed 40 mg PO BID #60 tabs 12/29/23 Unknown Rx release lorazepam 1 mg tablet 1 mg PO TID PRN muscle spasm #12 12/30/23 Unknown Rx tabs oxycodone-acetaminophen 5 mg-325 1 tab PO Q6H PRN PRN Pain 3 days 12/30/23 Unknown Rx mg tablet #12 TABLETS Allergy/AdvReac Type Severity Reaction Status Date / Time exenatide (From Byetta) AdvReac Severe dizziness Verified 12/30/23 14:53 pravastatin (From Pravachol) AdvReac Severe Myalgias Verified 12/30/23 14:53 atorvastatin (From Lipitor) AdvReac Intermediate Muscle pain Verified 12/30/23 14:53 simvastatin (From Zocor) AdvReac Intermediate Myalgias Verified 12/30/23 14:53 Family History Mother CAD (coronary artery disease) Heart disease Hypertension Diabetes Myocardial infarction, Onset Age: 78 Hyperlipidemia Father Brain tumor Cancer Hyperlipidemia Hypertension Brother Aortic aneurysm Hyperlipidemia Hypertension Grandmother Arthritis Grandfather Diabetes Surgical History History of esophagogastroduodenoscopy (EGD) History of colonoscopy History of cardiac catheterization S/P left inguinal hernia repair History of appendectomy History of shoulder surgery History of hysterectomy History of foot surgery History of cholecystectomy S/P foot surgery Social History household members: spouse housing: house current occupational status: employed 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 [employer]. Smoking Status: Never smoker alcohol intake: never substance use type: does not use diet: low carbohydrate caffeine: Yes Type: carbonated beverages Number of servings: 1 what type of physical activity do you participate in: walking frequency: 1-2 times per week seatbelt use: always do you feel safe at home: Yes ROS ROS ED Constitutional Constitutional ED: Denies chills or fever(s) Eyes Eyes: Denies change in vision or diplopia ENT ENT ED: Denies rhinorrhea or sore throat Cardiovascular Cardiovascular: Denies chest pain or palpitations Respiratory/Chest Respiratory/Chest: Denies cough or dyspnea Gastrointestinal Gastrointestinal: Denies abdominal pain, diarrhea, nausea or vomiting Genitourinary Genitourinary ED: Denies dysuria or hematuria Musculoskeletal Musculoskeletal: Reports back pain; Denies neck pain Integumentary Denies abscess or rash Neurologic Neurologic: Denies headache(s), paresthesias or weakness EXAM Physical Exam Const Vital Signs: 12/30/23 14:53 12/30/23 15:52 12/30/23 16:00 Temperature 97.2 F L Temperature Source Temporal Pulse Rate 79 77 69 Respiratory Rate 18 16 18 Respiratory Effort Blood Pressure 144/91 H 144/87 H 140/77 H Blood Pressure Mean 108 106 98 Pulse Ox 100 100 99 Oxygen Delivery Method Room Air Room Air Room Air 12/30/23 16:14 12/30/23 17:00 12/30/23 18:00 Temperature Temperature Source Pulse Rate 77 74 Respiratory Rate 12 20 H Respiratory Effort Normal Blood Pressure 155/92 H 153/74 H Blood Pressure Mean 113 100 Pulse Ox 100 100 Oxygen Delivery Method Room Air Room Air 12/30/23 19:00 12/30/23 20:00 Temperature Temperature Source Pulse Rate 76 89 Respiratory Rate 28 H 18 Respiratory Effort Blood Pressure 161/84 H 161/84 H Blood Pressure Mean 109 109 Pulse Ox 96 96 Oxygen Delivery Method Room Air Room Air Positive well nourished and well developed General Appearance ED: well developed and NAD HEENT Reports moist mucous membranes normocephalic and atraumatic Eyes PERRL and EOMs intact bilaterally Neck full ROM and supple Resp normal respiratory effort and clear to auscultation bilaterally Cardio regular rate, regular rhythm and no murmurs Peripheral Pulses: radial pulses present bilateral 2+ GI non-tender and non-distended Auscultation: normoactive bowel sounds Palpation: soft Back/Spine no CVA tenderness Back/Spine Narrative: Tender in the left rhomboids, but without any scapular or spinal tenderness, reproducing the patient's pain. No rash. General Back: other FROM but squeezing scapulae together reproduces pain Extremity normal to inspection General Extremety ED: Negative for edema, pulses abnormal or tenderness General Extremity: Negative for edema or pulses abnormal Neuro oriented x3, CN's II-XII intact bilaterally, no sensory deficits noted and gait normal Sensorium / Orientation: awake and alert Motor Exam: strength 5/5 throughout Skin no rashes or lesions noted and no wounds MDM MDM MDM Narrative Medical decision making narrative: I feel this is likely musculoskeletal. I am obtaining screening two-view chest x-ray to screen for mediastinal widening, pulmonary etiology, including pneumonia which I am at a very low suspicion for, and we will treat her with IV Toradol and Norflex. I am also obtaining an electrolyte panel as well as a troponin to rule out acute coronary syndrome, which I think is very unlikely given her symptoms and recent negative stress test yesterday, as some electr olyte disorders can cause muscle spasms without obvious etiology. This was done and negative as is the cardiac workup, and two-view chest x-ray on my interpretation is normal, showing no acute explanation for this or a wide mediastinum. Radiology in agreement and it is unchanged compared with her prior chest x-ray. After Toradol and Norflex she had some transient partial improvement but subsequently the pain is back and severe. It radiates around to the left axillary area but not all the way around to the sternum as I would suspect it would if this was a thoracic radiculopathy. Given how much pain she is in, I am giving her Ativan as a muscle relaxer as well as morphine and also sending her for CT of this area. I reviewed the images and the result which I agree with, the CT is negative/normal. I reevaluated her. Lying down she is asymptomatic. She uses her left arm on the rail of the bed to help pull herself up and at a certain point when she is almost in a complete sitting position, she states the pain becomes severe and tightens up. If she lays back down the pain resolves. I reviewed the aorta on this noncontrast scan, it is not large or abnormal appearing and although the scan was not contrasted/powered to look for dissection, she has equal bilateral radial pulses, she is not excessively hypertensive, and she is reproducing all of this pain with movement without h aving any chest discomfort and I can reproduce the pain with palpation of the rhomboid musculature which the patient states it feels like there is a knot in it, so I think dissection is very unlikely here. She is relatively comfortable and okay for discharge home, I do not think she needs to be admitted for any other emergent testing. Given all of the test that I have here that are negative, I feel this is very likely to be muscular with regards to her rhomboids, although I do not have an obvious etiology for neither does she. I am going to give her prescription for Percocet and Ativan, and advised her to use caution with regards to taking more than prescribed since they can both be sedative. Advised to follow-up. History & Record Review Additional record(s) reviewed:: Prior outpatient record (Cardiac stress test and echocardiogram yesterday both normal) Lab Data Attestation: I reviewed the patient's lab results. Labs: Laboratory Results - last 24 hr 12/30/23 16:00 WBC 7.9 RBC 5.32 Hgb 15.3 H Hct 44.2 MCV 83.1 MCH 28.8 MCHC 34.6 RDW Std Deviation 38.1 RDW Coeff of Gia 12.6 Plt Count 268 MPV 10.5 Immature Gran % (Auto) 0.400 Neut % (Auto) 64.1 Lymph % (Auto) 27.9 Meeker % (Auto) 6.6 Eos % (Auto) 0.5 Baso % (Auto) 0.5 Absolute Neuts (auto) 5.1 Absolute Lymphs (auto) 2.20 Nucleated RBC % 0 Sodium 138 Potassium 3.6 Chloride 108 H Carbon Dioxide 24.0 Anion Gap 6 BUN 13 Creatinine 1.19 H Estim Creat Clear Calc 47.34 Est GFR (MDRD) Af Amer 58 L Est GFR (MDRD) Non-Af 48 L BUN/Creatinine Ratio 10.9 Glucose 120 H Calcium 9.8 Troponin I High Sens < 3 L Radiography Diagnostic Testing: Clinical Impression(s) from Imaging Studies Chest X-Ray 12/30/23 17:25 IMPRESSION: No radiographic evidence of acute cardiopulmonary disease. Electronically Signed: Cory Anglin MD at 18:08 EDT , Thoracic Spine CT 12/30/23 18:23 IMPRESSION: No evidence of acute thoracic spinal fracture or spondylolisthesis. Electronically Signed: Cory Anglin MD at 19:59 EDT , Rhythm Strip Rhythm Strip: Sinus Rhythm Rate: 70 Ectopy: None EKG Initial EKG: Attestation: I personally reviewed and interpreted this EKG as follows: Interpretation: Sinus Rhythm and No Acute Injury Pattern Comments: Normal EKG Prior EKG tracings: available for review Prior: Unchanged Discharge Plan Triage Chief Complaint: Chest Pain Other Complaint: Back ED Provider: Martell Prajapati Dx/Rx/DC Orders Clinical Impression: Pain in left rhomboid muscle Instructions: Taking Opioid Medicine, ED Back Spasm, No Trauma Prescriptions: New oxycodone-acetaminophen 5-325 mg tablet 1 tab PO Q6H PRN PRN (Reason: Pain) 3 Days Qty: 12 0RF lorazepam 1 mg tablet 1 mg PO TID PRN (Reason: muscle spasm) Qty: 12 0RF No Action oxybutynin chloride 5 mg tablet 5 mg PO DAILY PRN (Reason: bladder) cholecalciferol (vitamin D3) 125 mcg (5,000 unit) capsule 125 mcg PO DAILY mecobalamin (vitamin B12) 1,000 mcg tablet,chewable 1,000 mcg PO DAILY ezetimibe [Zetia] 10 MG tablet 10 mg PO DAILY Patient Comments: cholesterol-need to take glimepiride [Amaryl] 1 mg tablet 2 mg PO .PM Mounjaro 7.5 mg/0.5 mL pen injector 7.5 mg subcut .weekly ondansetron 4 mg tablet,disintegrating 4 mg PO Q6H PRN PRN (Reason: Nausea) Qty: 15 0RF (DME) Oral appliance See Rx Instructions .ROUTE .MEDSUPPLY Qty: 1 0RF Rx Instructions: As directed metoprolol tartrate 25 mg tablet 50 mg PO DAILY Qty: 180 3RF cholestyramine-aspartame [Cholestyramine Light] 4 gram powder in packet 4 g PO DAILY Qty: 60 3RF Rx Instructions: administer w/meal; avoid other meds within 1hr before or 4-6hr after dose pantoprazole 40 mg tablet,delayed release (DR/EC) 40 mg PO BID Qty: 60 2RF Primary Care Provider: Leticia Pugh Referrals: Leticia Pugh DO [Primary Care Provider] - As soon as possible Print Language: Albanian Disposition Disposition: Home, Self Care
[2023-12-30] MEDS: Orphenadrine 60 MG/2 ML Ampul IV (17:09)
[2023-12-30] MEDS: Ketorolac 15 MG/ML Vial IV (17:09)
--- NOTE | 2023-12-30 17:25 | RAD_ITS ---
EXAM: XR CHEST, 2 VIEWS CLINICAL INDICATION: left upper back pain TECHNIQUE: Frontal and lateral views of the chest. COMPARISON: 12/22/2023 FINDINGS: LUNGS AND PLEURAL SPACES: Unremarkable. No consolidation or edema. No pneumothorax. No effusion. HEART: Unremarkable. Cardiac silhouette not enlarged. MEDIASTINUM: Central airways and mediastinal contour are unremarkable. BONES/JOINTS: Unremarkable. No acute fracture. SOFT TISSUES: Unremarkable. RAD/Chest PA and Lateral IMPRESSION: No radiographic evidence of acute cardiopulmonary disease. Electronically Signed: Cory Anglin MD at 18:08 EDT ,
[2023-12-30 17:29] LABS: Anion Gap 6 (5-15); BUN 13 mg/dL (7-18); BUN/Creat Ratio 10.9 RATIO (10-20); Calcium,Total 9.8 mg/dL (8.5-10.1); Chloride 108 mmol/L (98-107); Creatinine, Serum 1.19 mg/dL (0.55-1.02); EST Glomerular Filtration Rate 48 mL/min (>60); Est Glom Filt Rate - Afr Amer 58 mL/min (>60); Estimated Creatinine Clearance 47.34 ml/min; Glucose 120 mg/dL (74-106); Potassium 3.6 mmol/L (3.5-5.1); Sodium Level 138 mmol/L (136-145); Troponin-I HS < 3 pg/mL (3.0-54.0)
--- NOTE | 2023-12-30 18:23 | CT_ITS ---
EXAM: CT THORACIC SPINE WITHOUT INTRAVENOUS CONTRAST CLINICAL INDICATION: back pain TECHNIQUE: Helically acquired images were obtained of the thoracic spine without intravenous contrast. 2D reformats were reviewed. This CT exam was performed using one or more of the following dose reduction techniques: automated exposure control, adjustment of the mA and/or kV according to patient size, and/or use of iterative reconstruction technique. COMPARISON: No relevant prior studies available. FINDINGS: VERTEBRAE: Unremarkable. No fracture. No traumatic subluxation. No discrete lytic or blastic abnormality. Normal alignment. DISCS/SPINAL CANAL/NEURAL FORAMINA: Unremarkable. Disc heights are preserved. VASCULATURE: Visualized thoracic aorta is not dilated. LYMPH NODES: Unremarkable. No retroperitoneal adenopathy. LUNGS AND PLEURAL SPACES: Unremarkable as visualized. No mass. No consolidation or edema. No pleural effusion or thickening. No pneumothorax. CT/Spine Thoracic without Contras IMPRESSION: No evidence of acute thoracic spinal fracture or spondylolisthesis. Electronically Signed: Cory Anglin MD at 19:59 EDT ,
[2023-12-30] MEDS: Ondansetron 4 MG/2 ML Vial IV (18:35)
[2023-12-30] MEDS: LORazepam 2 MG/ML Syringe 0.5 MG IV (18:35)
[2023-12-30] MEDS: Morphine 4 MG/ML Syringe IV (18:35)
[2023-12-30 18:40] LABS: Absolute Neutrophil Count 5.1 X10^3/uL (2.0-7.7); Basophil# 0.04 X10^3/uL; Basophil% 0.5 % (0-1); Eosinophil# 0.04 X10^3/uL; Eosinophils% 0.5 % (0-5); Hematocrit 44.2 % (37-47); Hemoglobin 15.3 g/dL (12.0-15.0); Lymphocyte % 27.9 % (19-41); Mean Corp Hgb Conc 34.6 g/dL (32-36); Mean Corpuscular Hgb 28.8 pg (27.0-32.0); Mean Corpuscular Volume 83.1 fL (81-99); Mean Platelet Vol. 10.5 fl (6.2-12.0); Monocyte# 0.52 X10^3/uL; Monocyte% 6.6 % (0-10); NRBC Flagged by Analyzer 0 % (0-5); Neutrophil # 5.06 X10^3/uL (2.7-7.7); Neutrophil % 64.1 % (47-70); Platelet Count 268 K/mm3 (150-450); RBC Distribution Width CV 12.6 % (11.6-14.6); RBC Distribution Width SD 38.1 fl (35.1-43.9); Red Blood Count 5.32 M/mm3 (4.2-5.4); White Blood Count 7.9 K/mm3 (4.4-11.0)
== END 2023-12-30 21:06 | disposition home or self-care (01) ==
PROVIDERS: Emergency Provider Emergency Medicine; PCP Internal Medicine; Visit Provider Emergency Medicine
DX: M79.18 Myalgia, other site (principal); E11.9 Type 2 diabetes mellitus without complications; M54.9 Dorsalgia, unspecified; R07.89 Other chest pain; J18.9 Pneumonia, unspecified organism; K58.0 Irritable bowel syndrome with diarrhea; E78.2 Mixed hyperlipidemia; Z79.82 Long term (current) use of aspirin; Z79.84 Long term (current) use of oral hypoglycemic drugs; Z79.85 Long-term (current) use of injectable non-insulin antidiabetic drugs; Z79.899 Other long term (current) drug therapy
CPT/HCPCS: 71046; 72128; 80048; 84484; 85025; 93005; 96374; 96375; 99284; A4216; J2405

== ENCOUNTER 2024-01-03 10:03 | Emergency (ER) | payer OTHER, SELFPAY ==
[2024-01-03 10:04] VITALS: BP 143/88; PULSE 120; RESP 18; TEMP 35.9; O2SAT 98; BMI 28.1
--- NOTE | 2024-01-03 10:17 | EX.ED.DYSGE1 ---
HPI History of Present Illness Chief Complaint: Other, Pain/Inj Detail of Chief Complaint: Left upper back pain Informant: patient and spouse/S.O. Narrative Narrative: Patient presents to the emergency department complaint of left upper back pain that started 5 days ago. She denies injury or trauma. Patient was seen in the emergency department for this and had a cardiac workup and basic labs. She had a chest x-ray and a CT of the thoracic spine that was unremarkable. Patient was started on Toradol and oxycodone. Patient states she is not getting any pain relief. She rates her pain a 9 out of 10. Pain seems to be positional. It tends to radiate from the upper thoracic midline area towards the mid axillary line at times goes down her left arm to her left elbow. Patient attempted to follow-up with her primary care physician today as a walk-in and was told to come back to the emergency department and they did not see her. Patient denies recent travel or surgery. No history of PE or DVT. Patient has history of shingles but has not noted any rashes to her back. Patient denies any neck pain. [facility] Medical History LLQ abdominal pain Gastritis, bile acid reflux History of IBS Low serum IgM for age Diarrhea Fatigue IBS (irritable bowel syndrome) Irritable bowel syndrome with diarrhea Spencer esophagus Diabetes High cholesterol Back pain Dietary restriction History of hiatal hernia Gastric reflux Non-smoker History of echocardiogram History of stress test Cardiology follow-up encounter History of irregular heartbeat Chest pain Alternating constipation and diarrhea Abdominal pain Annular tear of lumbar disc Chest pain SVT (supraventricular tachycardia) Diabetes Chest pressure Left inguinal hernia Racing heart beat Enlarged thyroid Vitamin D deficiency Vitamin B12 deficiency H/O urinary tract infection Low back problem Arthritis UTI (urinary tract infection) Head ache Segmental and somatic dysfunction of lumbar region Segmental and somatic dysfunction of pelvic region DDD (degenerative disc disease), lumbar Facet arthritis of lumbar region Type 2 diabetes mellitus Nonrheumatic mitral (valve) prolapse Paroxysmal supraventricular tachycardia Dyspnea on exertion Mixed hyperlipidemia Atypical chest pain Chest pain Night sweats Encounter for long-term current use of high risk medication Palpitations Mitral valve prolapse Wound, open, abdominal wall, anterior Diabetes mellitus Abscess of abdominal wall Post-op pain Home Medications ?Medication ?Instructions ?Recorded ?Last Taken ?Type ezetimibe 10 mg tablet (Zetia) 10 mg PO DAILY cholesterol 09/24/14 02/05/22 History oxybutynin chloride 5 mg tablet 5 mg PO DAILY PRN bladder 09/21/19 02/05/22 History glimepiride 1 mg tablet (Amaryl) 2 mg PO .PM blood sugar 05/07/20 02/05/22 History cholecalciferol (vitamin D3) 125 125 mcg PO DAILY 10/21/22 Unknown History mcg (5,000 unit) capsule mecobalamin (vitamin B12) 1,000 1,000 mcg PO DAILY 10/21/22 Unknown History mcg chewable tablet Oral appliance #1 ea 01/26/23 Unknown Rx ondansetron 4 mg disintegrating 4 mg PO Q6H PRN PRN Nausea #15 tabs 08/02/23 Unknown Rx tablet tirzepatide 7.5 mg/0.5 mL 7.5 mg subcut .weekly 08/02/23 Unknown History subcutaneous pen injector (Eli) metoprolol tartrate 25 mg tablet 50 mg (2 x 25 mg) PO DAILY 08/17/23 Unknown Rx Clarification of instructions #180 tabs cholestyramine-aspartame 4 gram 4 g PO DAILY #60 ea 11/12/23 Unknown Rx oral powder for susp in a packet (Cholestyramine Light) pantoprazole 40 mg tablet,delayed 40 mg PO BID #60 tabs 12/29/23 Unknown Rx release lorazepam 1 mg tablet 1 mg PO TID PRN muscle spasm #12 12/30/23 Unknown Rx tabs oxycodone-acetaminophen 5 mg-325 1 tab PO Q6H PRN PRN Pain 3 days 12/30/23 Unknown Rx mg tablet #12 TABLETS Allergy/AdvReac Type Severity Reaction Status Date / Time exenatide (From Byetta) AdvReac Severe dizziness Verified 01/03/24 10:04 pravastatin (From Pravachol) AdvReac Severe Myalgias Verified 01/03/24 10:04 atorvastatin (From Lipitor) AdvReac Intermediate Muscle pain Verified 01/03/24 10:04 simvastatin (From Zocor) AdvReac Intermediate Myalgias Verified 01/03/24 10:04 Family History Mother CAD (coronary artery disease) Heart disease Hypertension Diabetes Myocardial infarction, Onset Age: 78 Hyperlipidemia Father Brain tumor Cancer Hyperlipidemia Hypertension Brother Aortic aneurysm Hyperlipidemia Hypertension Grandmother Arthritis Grandfather Diabetes Surgical History History of esophagogastroduodenoscopy (EGD) History of colonoscopy History of cardiac catheterization S/P left inguinal hernia repair History of appendectomy History of shoulder surgery History of hysterectomy History of foot surgery History of cholecystectomy S/P foot surgery Social History household members: spouse housing: house current occupational status: employed 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 [employer]. Smoking Status: Never smoker alcohol intake: never substance use type: does not use diet: low carbohydrate caffeine: Yes Type: carbonated beverages Number of servings: 1 what type of physical activity do you participate in: walking frequency: 1-2 times per week seatbelt use: always do you feel safe at home: Yes ROS ROS ED Review of Systems ROS Unobtainable: other Constitutional Constitutional ED: Reports lethargy; Denies chills, fever(s), sweats or weight loss Eyes Eyes: Denies blurry vision, change in vision or diplopia ENT ENT ED: Denies rhinorrhea or sore throat Cardiovascular Cardiovascular: Denies chest pain, orthopnea or racing heartbeat Respiratory/Chest Respiratory/Chest: Denies cough, dyspnea, dyspnea on exertion, orthopnea or sputum Gastrointestinal Gastrointestinal: Denies abdominal pain, diarrhea, nausea or vomiting Genitourinary Genitourinary ED: Denies dysuria, hematuria or urinary frequency Musculoskeletal Musculoskeletal: Reports back pain; Denies arthralgias, myalgias or neck pain Integumentary Denies abscess, Abrasions or rash Neurologic Neurologic: Denies headache(s) or weakness Psychiatric Psychiatric: Denies anxiety, depression or suicidal thoughts Endocrine Endocrinology: Denies polydipsia, polyphagia or polyuria Hematologic/Lymphatic Hematologic/Lymphatic: Denies easy bleeding, easy bruising or lymphadenopathy Allergic/Immunologic Allergic/Immunologic ED: Denies mouth swelling, tongue swelling or urticaria EXAM Physical Exam Const Vital Signs: 01/03/24 10:04 01/03/24 10:08 Temperature 96.6 F L Temperature Source Temporal Pulse Rate 120 H Respiratory Rate 18 Respiratory Effort Normal Respiratory Pattern Normal Blood Pressure 143/88 H Blood Pressure Mean 106 Pulse Ox 98 Positive well nourished and well developed General Appearance ED: well developed and NAD HEENT Reports TM's clear and moist mucous membranes normocephalic and atraumatic; Negative for trauma or tenderness Tympanic Membrane ED: Yes TM's clear Eyes PERRL and EOMs intact bilaterally General Eye ED: Negative for pale conjunctiva or scleral icterus Neck no lymphadenopathy, supple and no JVD General: Negative for tenderness Chest Wall inspection of chest normal and palpation of chest normal Chest: Negative for tenderness Resp normal respiratory effort and clear to auscultation bilaterally Effort and Inspection: Negative for respiratory distress or pain with movement Auscultation: Negative for rhonchi, wheezes or diminished lung sounds Cardio regular rate, regular rhythm, S1 normal heart sound, S2 normal heart sound and no murmurs Peripheral Pulses: pulses 2+ throughout GI normal to inspection, nondistended, normoactive bowel sounds, soft to palpation, non-tender, non-distended and no masses Back/Spine Back/Spine Narrative: Patient has tenderness palpation at the base of the trapezius and the upper to mid thoracic paraspinal musculature just medial to the scapula. There are no rashes noted. There is no ecchymosis or bruising noted. No erythema or warmth noted. Pain seems to exacerbate with certain motions of her left upper extremity Extremity normal to inspection General Extremety ED: Negative for edema General Extremity: Negative for edema Neuro oriented x3, CN's II-XII intact bilaterally, no sensory deficits noted and gait normal Sensorium / Orientation: awake, alert, oriented to person, oriented to place and oriented to time Motor Exam: strength 5/5 throughout and strength abnormal Psych mental status grossly normal Skin no rashes or lesions noted and no wounds MDM MDM MDM Narrative Medical decision making narrative: Patient presents with upper back pain with recent visit the ER and significant workup including lab work and cardiac workup which was unremarkable. Patient also recently had a stress test and echocardiogram that were unremarkable. She is not having chest pain. This suspicion for cardiac etiology extremely low. Suspect possibly nerve pain such as from a thoracic radiculopathy. In the differential still would be shingles type pain however no rash noted at this time. Patient will be given a milligram of Dilaudid and Zofran IV. Will obtain a D-dimer as this was not done to rule out PE although suspicion for this is low. She did present tachycardic today but this may be related to her pain. Patient's D-dimer was normal. Clinically she looks well. Do not feel she is having acute coronary syndrome. Concern for a thoracic radiculopathy. Patient will need further outpatient imaging such as MRI. Discussed admission for pain control as Dilaudid really did not help her pain very much. She does see pain management Dr. Mejia and we also discussed potentially pain injections. I did discuss case with Dr. Mejia as patient does not want to be admitted at this time. Dr. Mejia can see her in the office today and order outpatient MRI and try to manage her pain. Patient comfortable with plan to be seen later today. Lab Data Attestation: I reviewed the patient's lab results. Labs: Laboratory Results - last 24 hr 01/03/24 10:20 D-Dimer Quant (PE/DVT) < 0.27 L Discharge Plan Triage Chief Complaint: Other, Pain/Inj ED Provider: Rosa Ortega Dx/Rx/DC Orders Clinical Impression: Back pain Instructions: ED Back Pain (Acute or Chronic) Prescriptions: No Action oxybutynin chloride 5 mg tablet 5 mg PO DAILY PRN (Reason: bladder) cholecalciferol (vitamin D3) 125 mcg (5,000 unit) capsule 125 mcg PO DAILY mecobalamin (vitamin B12) 1,000 mcg tablet,chewable 1,000 mcg PO DAILY ezetimibe [Zetia] 10 MG tablet 10 mg PO DAILY Patient Comments: cholesterol-need to take glimepiride [Amaryl] 1 mg tablet 2 mg PO .PM Mounjaro 7.5 mg/0.5 mL pen injector 7.5 mg subcut .weekly ondansetron 4 mg tablet,disintegrating 4 mg PO Q6H PRN PRN (Reason: Nausea) Qty: 15 0RF oxycodone-acetaminophen 5-325 mg tablet 1 tab PO Q6H PRN PRN (Reason: Pain) 3 Days Qty: 12 0RF lorazepam 1 mg tablet 1 mg PO TID PRN (Reason: muscle spasm) Qty: 12 0RF (DME) Oral appliance See Rx Instructions .ROUTE .MEDSUPPLY Qty: 1 0RF Rx Instructions: As directed metoprolol tartrate 25 mg tablet 50 mg PO DAILY Qty: 180 3RF cholestyramine-aspartame [Cholestyramine Light] 4 gram powder in packet 4 g PO DAILY Qty: 60 3RF Rx Instructions: administer w/meal; avoid other meds within 1hr before or 4-6hr after dose pantoprazole 40 mg tablet,delayed release (DR/EC) 40 mg PO BID Qty: 60 2RF Primary Care Provider: Leticia Pugh Referrals: Leticia Pugh DO [Primary Care Provider] - Activity Restrictions/Additional Instructions: See Dr. Mejia today at 4 PM. He asked that you please arrive by 3:45 PM. Print Language: Burundian Disposition Disposition: Home, Self Care
[2024-01-03] MEDS: Ondansetron 4 MG/2 ML Vial IV (10:22)
[2024-01-03] MEDS: HYDROcodone Bitartrate/Apap 5/325 Tablet PO (10:22)
[2024-01-03 10:43] LABS: D-Dimer Quantitative (DVT/PE) < 0.27 FEU/ug/m (0.27-0.49)
[2024-01-03 11:44] VITALS: BP 155/96; PULSE 88; RESP 16; TEMP 36.6; O2SAT 100
[2024-01-03] MEDS: HYDROmorphone 1 MG/ML Syringe IV (11:44)
== END 2024-01-03 11:53 | disposition home or self-care (01) ==
PROVIDERS: Emergency Provider Emergency Medicine; PCP Internal Medicine; Visit Provider Emergency Medicine
DX: M54.9 Dorsalgia, unspecified (principal); E11.9 Type 2 diabetes mellitus without complications; E78.2 Mixed hyperlipidemia; Z79.84 Long term (current) use of oral hypoglycemic drugs; Z79.85 Long-term (current) use of injectable non-insulin antidiabetic drugs; Z79.899 Other long term (current) drug therapy
CPT/HCPCS: 85379; 96374; 96375; 99283; A4216; J2405

== ENCOUNTER → 2024-01-31 | Outpatient (CLI) | payer OTHER, SELFPAY | END | disposition home or self-care (01) | LOC: MRI 16:07 | PROVIDERS: PCP Internal Medicine; Referring Provider Internal Medicine; Visit Provider Internal Medicine | DX: M54.6 Pain in thoracic spine (principal) | CPT/HCPCS: 72146 ==

== ENCOUNTER 2024-02-15 13:00 | Outpatient (RCR) | payer OTHER, SELFPAY ==
--- NOTE | 2024-01-12 16:01 | HP.PTEVAL_ITS ---
Patient's Visit Information Visit Information Visit Information: PING CHUNG is a 68 year old F referred to Physical Therapy by Dr. Leticia Pugh DO with a diagnosis of THORACIC LEFT SIDE BACK PAIN. Date of Evaluation: 01/12/24 Physical Therapist: Morgan Barnes, PT, Cert MDT, OCS Visit Plan Frequency: 2x /Week Duration: 4 Weeks Plan: PATIENT ANXIOUS ABOUT PAIN PT INTERVENTIONS MODALITIES FOR PAIN RELIEVE , MANUAL THERAPY ,CERVICAL ROM ,INITIALLY AVOID TO LEFT ,AND POSTURAL EX'S ,ACTIVITY MODIFIACTION Subjective Subjective: This 68 y/o female presents to physical therapy with left cervical and upper thoracic pain with symptoms in arm left. Patient has had these symptom 2 weeks ,ust insidious onset of pain no mechanisms of pain. Patient went to ER x2 with pain in arm . Patient seen and recommend had CTSCAN . Dr Wants to do MRI . Tried pain medication gabapentin and muscle relaxer. Patient has seen pain management and plans for injection. Location left scapular tricep to hand described constant ache. . Patient aggravating extension ,sitting ,flexion. Alleviating factors heat/ice. Coughing/sneezing -. Denies Dizziness/naus ea/tinnitus. Patient pain pain affects sleeping. Patient affects QOL and function . Patient goals to decrease pain. SOCIAL: VOCATION: Pain Left Scapula: Pain Intensity (Out of 10): 10 Pain Intensity Range: 10 Right Face: Pain Intensity (Out of 10): 7 Pain Intensity Range: 10 Left Shoulder: Pain Intensity (Out of 10): 7 Pain Intensity Range: 10 Objective Objective: POSTURE: rounded shoulder head forward PALPATION:mild scapular NEURO: c/o paresthesia/tingling in left arm AROM: BUE WFL MMT: BUE 4/5 ,SHOULDERS left 3+/5 CERVICAL ROM: flexion min loss pain ,rotation /lateral flexion /extesnion mod loss pain in shoulder /scapular elbow towards left Special Tests C/S Radiculapathy - Left Upper limb tension test: Negative C/S Radiculapathy - Right Upper limb tension test: Negative C/S Radiculapathy - Left Spurlings: Positive C/S Radiculapathy - Right Spurlings: Negative C/S Radiculapathy - Left Cervical distraction: Negative C/S Radiculapathy - Right Cervical distraction: Negative C/S Radiculapathy - Left Relief test: Negative C/S Radiculapathy - Right Relief test: Negative Sharp Vincent: Negative Vertebral Artery Test: Negative Alar Ligament Test: Negative Cervical Sitting: Protrusion - Mechanical Response: No effect Cervical Sitting: Protrusion - Symptoms During Testing: Increases Cervical Sitting: Protrusion - Symptoms After Testing: Worse Cervical Sitting: Retraction - Mechanical Response: No effect Cervical Sitting: Retraction - Symptoms During Testing: Increases Cervical Sitting: Retraction - Symptoms After Testing: Worse Comments:: arm Cervical Sitting: Retraction-Extension - Mechanical Response: No effect Cerv Sitting: Retraction-Extension - Symptoms During Testing: Increases Cerv Sitting: Retraction-Extension - Symptoms After Testing: No worse Comments:: arm Cervical Sitting: Sidebend Right - Mechanical Response: No effect Cervical Sitting: Sidebend Right - Symptoms During Testing: No effect Cervical Sitting: Sidebend Right - Symptoms After Testing: No effect Cervical Sitting: Sidebend Left - Mechanical Response: No effect Cervical Sitting: Sidebend Left - Symptoms During Testing: Increases Cervical Sitting: Sidebend Left - Symptoms After Testing: Worse Comments:: arm Cervical Sitting: Rotation Right - Mechanical Response: No effect Cervical Sitting: Rotation Right - Symptoms During Testing: No effect Cervical Sitting: Rotation Right - Symptoms After Testing: No effect Cervical Sitting: Rotation Left - Mechanical Response: No effect Cervical Sitting: Rotation Left - Symptoms During Testing: Increases Cervical Sitting: Rotation Left - Symptoms After Testing: Worse Comments:: arm Cervical Sitting: Flexion - Mechanical Response: No effect Cervical Sitting: Flexion - Symptoms During Testing: Increases Cervical Sitting: Flexion - Symptoms After Testing: Worse Comments:: arm Thoracic Sitting: Flexion - Mechanical Response: No effect Thoracic Sitting: Flexion - Symptoms During Testing: No effect Thoracic Sitting: Flexion - Symptoms After Testing: No effect Thoracic Sitting: Extension - Mechanical Response: No effect Thoracic Sitting: Extension - Symptoms During Testing: No effect Thoracic Sitting: Extension - Symptoms After Testing: No effect Thoracic Sitting: Right rotation - Mechanical Response: No effect Thoracic Sitting: Right Rotation - Symptoms During Testing: No effect Thoracic Sitting: Right Rotation - Symptoms After Testing: No effect Thoracic Sitting: Left rotation - Mechanical Response: No effect Thoracic Sitting: Left Rotation - Symptoms During Testing: No effect Thoracic Sitting: Left Rotation - Symptoms After Testing: No effect Balance/Special Test Scores Oswestry Neck Score: 31 Goals Goal 1:: I with HEP for neck and thoracic Goal Time Frame: 4-6 Weeks Goal 2:: Patient to improve cervical ROM for function of recovery for driving Goal Time Frame: 4-6 Weeks Goal 3:: Patient to improve neck oswestry score by 5 points to improve QOL Goal Time Frame: 4-6 Weeks Goal 4:: Patient to demonstrate 50% improvement with less pain and improved function. Goal Time Frame: 4-6 Weeks Goal 5:: Patient be able to perform ADLS and housework with less symptoms 50% of the time Goal Time Frame: 4-6 Weeks Rehabilitation Potential Physical Therapy Diagnosis: Patient with pain appears to have cervical radiculopathy with symptoms of disc vs stenosis worse with positioning and motion testing towards left no position and movement decrease symptoms thus bene fit from skilled PT may need MRI on cervical and upper thoracic Rehabilitation Potential: Fair Anticipated Interventions Patient/Client Instruction: Educate patient on: Condition and Plan of Care For the Purpose of:: To decrease pain, To increase ROM, To improve muscle performance and motor function, To improve ability to perform ADL's, To increase tolerance to activity/condition/position, To improve ability of physical actions for home/community/work/leisure, To improve health of tissue, To decrease soft tissue restriction and To increase flexibility/ROM Therapeutic Exercise to Include: Strength training, Postural training, Flexibilty training, Active ROM and Scapular Strength/Stabilization Comment: RTC For the Purpose of:: To decrease pain, To increase ROM, To improve muscle performance and motor function, To improve ability to perform ADL's, To increase tolerance to activity/condition/position, To improve ability of physical actions for home/community/work/leisure, To improve health of tissue, To assume or resum e ADL's and To improve tolerance to ADL's Manual Therapy Techniques to Include: Mobilization and Passive ROM Comment: G-H JOINT 2-3 For the Purpose of:: To decrease pain, To increase ROM, To improve health of tissue and To decrease soft tissue restriction TENS: Yes IF ES: Yes Cryotherapy (ice pack, ice massage): Yes Thermo therapy (hot pack): Yes Ultrasound (thermal/non thermal): Yes For the Purpose of:: To decrease pain, To increase ROM, To improve nutrient delivery to tissue, To increase oxygenation perfusion, To improve health of tissue and To decrease soft tissue restriction Text: Thank you for the opportunity to evaluate your patient. For Medicare and Medicare HMO plans, please review the plan of care and approve it. It will need to be FAXED BACK to us at [phone] for Medicare purposes. For Medicare only, by signing this I certify the plan of care. Please let me know if there are questions or concerns regarding this plan of care. Physician Signature: Date:
--- NOTE | 2024-02-15 13:38 | HP.PTDCSUM_ITS ---
Discharge Summary D/C summary: It has been my pleasure to treat PING CHUNG referred by Dr. Leticia Pugh DO, with the diagnosis of THORACIC LEFT SIDE BACK PAIN for a total of 8 visit(s). Discharge Date: Please see the following information for a summary of their discharge status. Subjective Subjective: Patient had MRI for thoracic Patient reports seen DR Mejia had injection mid thoracic region Plan for MRI cervical Patient has tingling Pain Left Scapula: Pain Intensity (Out of 10): 7 Right Face: Pain Intensity (Out of 10): 0 Left Shoulder: Pain Intensity (Out of 10): 7 Objective Objective/Function: POSTURE: rounded shoulder head forward PALPATION:mild scapular NEURO: c/o paresthesia/tingling in left arm AROM: BUE WFL MMT: BUE 4/5 ,SHOULDERS left 4-/5 pain THORACIC WILL: MIN LOSS ALL PLANES ,ROTATION ,EXTENSION MOD CERVICAL ROM: flexion min loss pain ,rotation /lateral flexion mod and extension min/mod loss pain in shoulder /scapular elbow towards left + cervical quadrant ( spurling) to left [employer]EL[employer] EXP[employer]ER STRENGTH: 10# LEFT ,RIGHT 60# Goals Goal 1:: I with HEP for neck and thoracic Goal Progress: Progressing Goal 2:: Patient to improve cervical ROM for function of recovery for driving Goal Progress: Not Progressing Goal 3:: Patient to improve neck oswestry score by 5 points to improve QOL Goal Progress: Not Progressing Goal 4:: Patient to demonstrate 50% improvement with less pain and improved function. Goal Progress: Not Progressing Goal 5:: Patient be able to perform ADLS and housework with less symptoms 50% of the time Goal Progress: Not Progressing Plan Plan: SYMPTOMS APPEAR CERVICAL RADICULOPATHY RELATED RTD possible MRI cervical D/C Information d/c sentence: If there are questions or concerns regarding this patient's physical therapy, please feel free to call me at [phone]. Thank you for the referral of this patient. Sincerely, Morgan Barnes, PT, Cert MDT, OCS Balance/Gait/Functional tests Balance/Special Test Scores Oswestry Neck Score: 31
== END 2024-02-15 19:00 | disposition home or self-care (01) ==
LOC: PT 13:00
PROVIDERS: PCP Internal Medicine; Referring Provider Internal Medicine; Visit Provider Internal Medicine
DX: M54.6 Pain in thoracic spine (principal)
CPT/HCPCS: 97035; 97110; 97140; 97162; 97530

== ENCOUNTER → 2024-02-26 | Outpatient (CLI) | payer OTHER, SELFPAY ==
--- NOTE | 2024-02-26 08:12 | MRI_ITS ---
STUDY: MRI CERVICAL SPINE WITHOUT CONTRAST REASON FOR EXAM: Female, 68 years old. Cervical radiculopathy (M54.12) TECHNIQUE: Standardized fat and water weighted pulse sequences were obtained in the sagittal and axial planes. COMPARISON: 05/18/2014 FINDINGS: Normal foramen magnum and brainstem-cervical cord junction. Normal craniovertebral junction. Normal anterior atlantoaxial articulation. Normal odontoid process. Normal cervical lordosis. Normal vertebral bodies and posterior osseous elements. C2-3: Normal endplates. Normal disc height, signal and morphology. Normal central canal and intervertebral neural foramina. C3-4: Normal endplates. Normal disc height, signal and morphology. Normal central canal and intervertebral neural foramina. C4-5: Left uncovertebral hypertrophy produces mild left neural foraminal stenosis. No central spinal stenosis. C5-6: Enlarging broad disc osteophyte complex produces a moderate spinal stenosis with effacement of the right hemicord and mild bilateral neural foraminal stenosis. C6-7: Normal endplates. Normal disc height, signal and morphology. Normal central canal and intervertebral neural foramina. C7-T1: Normal endplates. Normal disc height, signal and morphology. Normal central canal and intervertebral neural foramina. Normal cervical cord. Normal visualized soft tissue structures. MRI/Spine Cervical (Routine) IMPRESSION: Worsening degenerative disc disease as described above. Electronically Signed: Dagoberto Davies MD at 13:41 EST ,
== END | disposition home or self-care (01) ==
LOC: MRI 08:11
PROVIDERS: PCP Internal Medicine; Referring Provider Internal Medicine; Visit Provider Internal Medicine
DX: M54.12 Radiculopathy, cervical region (principal)
CPT/HCPCS: 72141

== ENCOUNTER → 2024-04-19 | Outpatient (CLI) | payer MEDICARE, SELFPAY ==
--- NOTE | 2024-04-19 15:14 | NEURO ---
NCS and/or EMG Patient Report Ordering Doctor: Solo Fuentes DATE OF SERVICE: 04/19/24 Radha presents for electrodiagnostic testing of the upper limbs. She reports left-sided neck pain with radiation into the scapula. Electrodiagnostic findings: Left median motor nerve demonstrates prolonged latency with normal amplitude and conduction velocity. Right median motor response within normal limits. Ulnar motor response is normal bilaterally. Prolonged left median sensory latency at the wrist. Normal median and ulnar F?waves. Needle EMG testing was performed in the upper limbs. 1+ fibrillations noted in the left mid cervical paraspinals, left infraspinatus and left deltoid. Motor unit action potentials are of normal amplitude and duration. Electrodiagnostic impression: This is an abnormal study in the upper limbs 1. Electrodiagnostic findings suggestive of an acute left C5 radiculopathy. Consider correlation with cervical spine imaging. 2. Electrodiagnostic findings suggestive of left-sided median mononeuropathy. This consistent with a mild left carpal tunnel syndrome. Multi Select Codes Neurology Neurology Interp Codes: 42287-98 Musc test done w/n test comp (interp) (2) and 98954-28 Nr cndj test 13/> studies (interp)
== END | disposition home or self-care (01) ==
PROVIDERS: PCP Internal Medicine; Referring Provider Orthopaedic Surgery Orthopaedic Surgery of the Spine; Visit Provider Orthopaedic Surgery Orthopaedic Surgery of the Spine
DX: M51.24 Other intervertebral disc displacement, thoracic region (principal); M54.12 Radiculopathy, cervical region
CPT/HCPCS: 95886; 95912

== ENCOUNTER → 2024-08-28 | Outpatient (CLI) | payer MEDICARE, SELFPAY ==
--- NOTE | 2024-08-28 10:45 | BI_ITS ---
EXAM: SCRN MAMM (CAD)W/JEFF BILAT DATE: 08/28/2024 CLINICAL HISTORY: F, Age 68 y/o , BREAST CANCER SCREENING BREAST CANCER RISK ASSESSMENT: Has not been calculated. TECHNIQUE: SCRN MAMM (CAD)W/JEFF BILAT COMPARISON: Prior exam(s) dated 08/27/2023, [id number] and 08/21/2021. FINDINGS: TISSUE DENSITY: The breast tissue is composed of scattered areas of fibroglandular density. Bilateral Breast Mammographic Findings: Benign-appearing round microcalcifications are seen in both breast. No suspicious masses, suspicious cluster of microcalcifications, architectural distortion or secondary sign of malignancy is identified in either breast. BI/SCRN MAMM (CAD)W/JEFF BILAT IMPRESSION: Benign screening mammogram study. OVERALL FINAL ASSESSMENT BI-RADS 2: BENIGN RECOMMEND ANNUAL MAMMOGRAPHIC SCREENING. RECOMMENDATION: Routine annual follow-up in 1 Year A letter with findings and recommendations will be mailed to the patient. Reading Location: [id number]
== END | disposition home or self-care (01) ==
LOC: OPBI 10:33
PROVIDERS: PCP Internal Medicine; Referring Provider Advanced Practice Midwife; Visit Provider Advanced Practice Midwife
DX: Z12.31 Encounter for screening mammogram for malignant neoplasm of breast (principal)
CPT/HCPCS: 77063; 77067

== ENCOUNTER → 2024-11-01 | Outpatient (CLI) | payer MEDICARE, SELFPAY ==
--- NOTE | 2024-11-01 09:00 | RAD_ITS ---
EXAM: Double-contrast upper GI series and single and double contrast esophagram. CLINICAL HISTORY: Epigastric pain. COMPARISON: None. TECHNIQUE: Double-contrast upper GI series and single and double contrast esophagram. FINDINGS: Visually, the swallowing mechanism was unremarkable. The esophagus shows no area of persistent narrowing or mucosal changes. Intermittent mid to distal esophageal spasm was seen. A widely patent esophagogastric junction was noted. No hiatal hernia is seen. Gastroesophageal reflux to the level of the proximal esophagus was seen. Imaging of the stomach multiple small benign-appearing gastric ulcers in the proximal and mid portions of the stomach. No duodenal abnormality is seen. Easy passage of the 13 mm barium tablet into the stomach was noted. RAD/Upper GI w/BA Swallow IMPRESSION: Benign gastric ulcers. Gastroesophageal reflux. Reading Location: [place] [id number]
== END | disposition home or self-care (01) ==
LOC: RAD 08:35
PROVIDERS: PCP Internal Medicine; Referring Provider Nurse Practitioner Acute Care; Visit Provider Nurse Practitioner Acute Care
DX: R10.13 Epigastric pain (principal); K31.84 Gastroparesis; R11.2 Nausea with vomiting, unspecified
CPT/HCPCS: 74246

== ENCOUNTER → 2024-11-09 | Outpatient (CLI) | payer MEDICARE, SELFPAY ==
--- NOTE | 2024-11-09 10:48 | BD_ITS ---
PROCEDURE: DEXA BONE DENSITY STUDY 11/09/2024 REASON FOR EXAM: F, age 69 y/o . Postmenopausal. TECHNIQUE: Procedure Code: BDDBD Modality: DX Procedure: DEXA BONE DENSITY STUDY COMPARISON: Prior study dated August 20, 2020. FINDINGS: BMD and T-SCORES Lumbar spine: 1.147 g/cm2, T-score 0.9 Levels: L1 through L4 Change from prior: Loss of 8.6%. Left femoral neck: 0.849 g/cm2, T-score 0.0 Femoral neck comparison data not recommended for monitoring change. Left total hip: 1.010 g/cm2, T-score 0.6 Change from prior: Loss of 5.1%. The World Health Organization has defined the following categories based on bone density: Normal bone density: T-score equal to or greater than -1.0 Osteopenia: T-score between -1.0 and -2.5 Osteoporosis: T-score equal to or less than -2.5 FRAX (or Comparable) Fracture Risk Assessment: 10 Year Probability of Fracture: Major Osteoporotic Fracture: 11% Hip Fracture: 0.6% (Note: FRAX is not to be reported in setting of normal range bone density, osteoporosis on DEXA, known history of osteoporosis, prior osteoporotic hip or vertebral fracture, or for any patient undergoing pharmacological treatment for bone loss.) The National Osteoporosis Foundation (NOF) recommends pharmacological treatment for patients with a FRAX 10-year risk of 3% or higher for a hip fracture, or 20% or higher for a major osteoporotic fracture, to prevent osteoporosis and reduce fracture risk. The patient does not meet the pharmacological treatment recommendations for prevention of osteoporosis. BD/Dexa Bone Density Study IMPRESSION: NORMAL T-SCORES. Recommend follow-up as clinically warranted. Reading Location: [id number]
== END | disposition home or self-care (01) ==
LOC: OPBD 10:47
PROVIDERS: PCP Internal Medicine; Referring Provider Internal Medicine; Visit Provider Internal Medicine
DX: Z78.0 Asymptomatic menopausal state (principal)
CPT/HCPCS: 77080

== ENCOUNTER 2024-11-16 12:02 | Day surgery (SDC) | payer MEDICARE, SELFPAY ==
--- NOTE | 2024-11-13 14:21 | PAT.ANESEVAL ---
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 When Was Last Pacemaker Check QUESTION #4 FULL TEXT: You/Your Family Experience fever (hyperthermia) with Anesthesia Last Oral Intake Last Oral intake: Last Oral Intake NPO since Meds taken in AM with sips of water? Meds patient instructed to take am of surgery PONV PONV - jewish thought professor: PONV - jewish thought professor Female Yes 11/13/24 12:37 HX of Motion Sickness No 11/13/24 12:37 HX of N/V After Surgery No 11/13/24 12:37 Non-Smoker Yes 11/13/24 12:37 Duration of Surgery greater No 11/13/24 12:37 than 60 minutes Number of Risk Factors 2 11/13/24 12:37 PONV Score Moderate Risk 11/13/24 12:37 Height & Weight Height & Weight: Anesthesia: Height & Weight Height 5 ft 5 in 11/09/24 13:34 Respiratory Assessment Respiratory Assessment - jewish thought professor: Respiratory Tract Infection Hx - jewish thought professor Hx Respiratory Tract Infection No 11/13/24 12:37 STOP Sleep Apnea STOP Sleep Apnea - jewish thought professor: STOP Sleep Apnea - jewish thought professor Hx Hypertension No 11/13/24 12:37 Hx Sleep Apnea Yes 11/13/24 12:37 CPAP Yes: NOT USING 11/13/24 12:37 BIPAP No 11/13/24 12:37 Do you snore loudly (louder than talking or can be heard Do you often feel tired/ fatigued/ sleepy during daytime? Has anyone observed you stop breathing during sleep? STOP Results Positive 11/13/24 12:37 QUESTION #5 FULL TEXT : Do you snore loudly (louder than talking or can be heard through closed doors)? 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 Specify any problems Hx of Preganancy in last 3 No 11/13/24 12:37 Months Nurse Filling Out Transfusion DSCHRIBER 11/13/24 12:37 & Questions: Date: 11/13/24 11/13/24 12:37 Time: 12:39 11/13/24 12:37 Patient unable to answer at this time (ie. confused, unrespo /Reproduction History /Reproductive History - jewish thought professor: /Reproductive Hx- jewish thought professor Hx Now No 11/13/24 12:37 Gestational Age (in weeks): EDC: Hx Hx Para Hx Section SAB No 11/13/24 12:37 [facility] Medical History (Updated 11/13/24 @ 12:47 by Naz Roberson) CPAP (continuous positive airway pressure) dependence Post-menopausal History of ulceration LLQ abdominal pain Gastritis, bile acid reflux Low serum IgM for age Diarrhea Fatigue IBS (irritable bowel syndrome) Irritable bowel syndrome with diarrhea Spencer esophagus High cholesterol Back pain Dietary restriction Gastric reflux Non-smoker History of echocardiogram History of stress test Cardiology follow-up encounter History of irregular heartbeat Chest pain Alternating constipation and diarrhea Abdominal pain Annular tear of lumbar disc Chest pain SVT (supraventricular tachycardia) Diabetes Chest pressure Vitamin D deficiency Vitamin B12 deficiency Low back problem Arthritis UTI (urinary tract infection) Head ache Segmental and somatic dysfunction of lumbar region Segmental and somatic dysfunction of pelvic region DDD (degenerative disc disease), lumbar Facet arthritis of lumbar region Type 2 diabetes mellitus Nonrheumatic mitral (valve) prolapse Paroxysmal supraventricular tachycardia Dyspnea on exertion Mixed hyperlipidemia Atypical chest pain Night sweats Encounter for long-term current use of high risk medication Palpitations Mitral valve prolapse Wound, open, abdominal wall, anterior Diabetes mellitus Abscess of abdominal wall Post-op pain Home Medications ?Medication ?Instructions ?Recorded ?Last Taken ?Type ezetimibe 10 mg tablet (Zetia) 10 mg PO DAILY cholesterol 09/24/14 02/05/22 History cholecalciferol (vitamin D3) 125 125 mcg PO DAILY 10/21/22 Unknown History mcg (5,000 unit) capsule mecobalamin (vitamin B12) 1,000 1,000 mcg PO DAILY 10/21/22 Unknown History mcg chewable tablet Oral appliance #1 ea 01/26/23 Unknown Rx tirzepatide 7.5 mg/0.5 mL 7.5 mg subcut SA 08/02/23 11/04/24 History subcutaneous pen injector (Eli) cholestyramine-aspartame 4 gram 4 g PO DAILY #60 ea 11/12/23 Unknown Rx oral powder for susp in a packet (Cholestyramine Light) metoprolol tartrate 25 mg tablet 25 mg PO DAILY #180 tabs 08/29/24 Unknown Rx pantoprazole 40 mg tablet,delayed 40 mg PO BID #60 tabs 09/10/24 Unknown Rx release hyoscyamine sulfate 0.125 mg 0.125 mg sublingual Q6-8H PRN 10/10/24 Unknown Rx sublingual tablet epigastric pain #15 tabs Allergy/AdvReac Type Severity Reaction Status Date / Time exenatide (From Byetta) AdvReac Severe dizziness Verified 11/13/24 12:35 pravastatin (From Pravachol) AdvReac Severe Myalgias Verified 11/13/24 12:35 atorvastatin (From Lipitor) AdvReac Intermediate Muscle pain Verified 11/13/24 12:35 simvastatin (From Zocor) AdvReac Intermediate Myalgias Verified 11/13/24 12:35 Family History Mother CAD (coronary artery disease) Heart disease Hypertension Diabetes Myocardial infarction, Onset Age: 78 Hyperlipidemia Father Brain tumor Cancer Hyperlipidemia Hypertension Brother Aortic aneurysm Hyperlipidemia Hypertension Grandmother Arthritis Grandfather Diabetes Surgical History (Updated 11/13/24 @ 12:44 by Naz Roberson) History of esophagogastroduodenoscopy (EGD) History of colonoscopy History of cardiac catheterization S/P left inguinal hernia repair History of appendectomy History of shoulder surgery History of hysterectomy History of foot surgery History of cholecystectomy S/P foot surgery Social History household members: spouse housing: house current occupational status: employed 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 [employer]. Smoking Status: Never smoker alcohol intake: never substance use type: does not use diet: low carbohydrate caffeine: Yes Type: carbonated beverages Number of servings: 1 what type of physical activity do you participate in: walking frequency: 1-2 times per week seatbelt use: always do you feel safe at home: Yes Audit: Pertinent Findings Pertinent Findings EKG Perinent findings: EKG 12/30/2023. Normal sinus rhythm. Stress test pertinent findings: Stress test 12/29/2023. Conclusion exercise stress test with no EKG criteria for ischemia at a high workload no clinical angina or arrhythmias noted. Echo (EF%) pertinent findings: Echo 12/29/2023. Normal LV size. EF 60%. Stage I diastolic dysfunction. No regional wall motion abnormalities noted. Recommendation Anesthesia Recommendation Anesthesia recommendation: OPTIMIZED for anesthesia
[2024-11-16] VITALS (8 sets, daily range): BP systolic 130–156; BP diastolic 70–88; PULSE 66–72; RESP 16–18; TEMP 36.6–37; O2SAT 97–100; BMI 26.5
[2024-11-16] MEDS: Lactated Ringers 1,000 ML 15 ML IV (12:38)
--- NOTE | 2024-11-16 13:15 | EGD_PTH ---
PATIENT: PING CHUNG LOC: EN U#:[id number] AGE/SX: 69/F ROOM: RE11/16/[address]: Dr. Tyree Keita DO : 1955 BED: DIS: 11/16/2024 SPEC #: [id number] RECD: 11/16/24 14:48 STATUS: JET REQ #: [id number] CAT: 11/16/24 13:[address]: Tyree Keita DEPT: SURGICAL PATHOLOGY RECD BY: Rolando Kasper ENTERED: 11/16/24 15:21 SP TYPE: EGD BIOPSY RONALDO DR: Dr. Leticia Pugh DO Tissues: A - Gastric mucous membrane Procedures: Surgery Specimen Level IV HEADER OPERATION: EGD with biopsy PRE-OP DIAGNOSIS: Dysphagia, nausea / vomiting, epigastric pain TISSUE SUBMITTED: A- Gastric body biopsy MICROSCOPIC DIAGNOSIS A. Stomach, gastric body, biopsy: Oxyntic mucosa with mild chronic inflammation No morphologic evidence of Helicobacter pylori organisms MICROSCOPIC DESCRIPTION Slides are reviewed. GROSS DESCRIPTION A. Received in fixative is one container labeled with the patient's name and designated Gastric body biopsy. The specimen consists of two irregular fragments of light presley soft tissue that measure 0.7 and 0.9 cm. The specimen is totally submitted in one cassette. NV 11/16/2024 CPT:19610
--- NOTE | 2024-11-16 13:38 | PCM.PRE.AN2 ---
ASA Classification* ASA Classification ASA Classification: 2 Assessment & Plan Anesthesia* Anesthesia Assessment Anesthesia Assessment: Discussed sedation and/or anesthesia options, risks, benefits, and alternatives with patient/parents/legal guardian/POA. Questions invited. The patient/parents/legal guardian/POA seems to understand and agrees to proceed with anesthesia plan. Reviewed the physical assessment, medical history, allergy history and patient home medications list prior to surgery/procedure/anesthetic and documented any changes. Performed airway and anesthesia risk assessments. Anesthesia Type Anesthesia Type: MAC History Source History Obtained from:: Patient and Chart Anesthesia Focused Assessment* Temperature: 98.6 F Pulse Rate: 68 Blood Pressure: 130/75 Respiratory Rate: 18 Pulse Ox: 100 Oxygen Delivery Method: Room Air Airway Assessment Mouth opens: >3 cm Mallampati Score: III Teeth Condition: Caps/Crowns (Patient has several crowns. They are tight.) Neck Range of motion (ROM): Limited ROM (Slight Decrease) Labs Anesthesia Preop lab: CBC WBC 7.9 K/mm3 (4.4-11.0) 12/30/23 16:00 12/30/23 RBC 5.32 M/mm3 (4.2-5.4) 12/30/23 16:00 12/30/23 Hgb 15.3 g/dL (12.0-15.0) H 12/30/23 16:00 12/30/23 Hct 44.2 % (37-47) 12/30/23 16:00 12/30/23 Plt Count 268 K/mm3 (150-450) 12/30/23 16:00 12/30/23 CHEMISTRY Potassium 3.6 mmol/L (3.5-5.1) 12/30/23 16:00 12/30/23 Sodium 138 mmol/L (136-145) 12/30/23 16:00 12/30/23 Magnesium 2.0 mg/dL (1.6-2.6) 09/26/21 13:31 09/26/21 BUN 13 mg/dL (7-18) 12/30/23 16:00 12/30/23 Creatinine 1.19 mg/dL (0.55-1.02) H 12/30/23 16:00 12/30/23 Glucose 120 mg/dL (74-106) H 12/30/23 16:00 12/30/23 POC Glucose 108 mg/dL (74-106) H 11/16/24 12:29 11/16/24 TSH 2.71 uIU/mL (0.358-3.74) 09/26/21 13:31 09/26/21 COAG Pre-Assessment Diagnosis/Proposed Procedure Planned Operative Procedure(s): EGD Anesthesia History Anesthesia History - translator and interpreter: Anesthesia History - translator and interpreter Hx Hospitalization No 11/13/24 12:37 Any Problems With Anesthesia Yes: SLOW TO AWAKEN AFTER 11/13/24 12:37 GENERAL ANESTHESIA Cholinesterase deficiency No 11/13/24 12:37 You/Your Family Experience No 11/13/24 12:37 fever (hyperthermia) with Relationship Recent Exposure to Contagious No 11/16/24 12:25 Disease Does patient have nerve No 11/13/24 12:37 stimulator Patient instructed to have device shut off --Does patient have Pacemaker No 11/16/24 12:25 or ICD? When Was Last Pacemaker Check QUESTION #4 FULL TEXT: You/Your Family Experience fever (hyperthermia) with Anesthesia Last Oral Intake Last Oral intake: Last Oral Intake NPO since 22:00 11/16/24 12:25 Meds taken in AM with sips of Yes 11/16/24 12:25 water? Meds patient instructed to pantoprazole 11/16/24 12:25 take am of surgery Any additional information?: Yes Meds taken in AM with sips of water?: Yes PONV PONV - translator and interpreter: PONV - translator and interpreter Female Yes 11/13/24 12:37 HX of Motion Sickness No 11/13/24 12:37 HX of N/V After Surgery No 11/13/24 12:37 Non-Smoker Yes 11/13/24 12:37 Duration of Surgery greater No 11/13/24 12:37 than 60 minutes Number of Risk Factors 2 11/13/24 12:37 PONV Score Moderate Risk 11/13/24 12:37 Height & Weight Height & Weight: Anesthesia: Height & Weight Height 5 ft 5 in 11/16/24 12:25 Weight: 72.4 kg 11/16/24 12:25 Body Mass Index (BMI) 26.5 11/16/24 12:25 Respiratory Assessment Respiratory Assessment - translator and interpreter: Respiratory Tract Infection Hx - translator and interpreter Hx Respiratory Tract Infection No 11/13/24 12:37 STOP Sleep Apnea STOP Sleep Apnea - translator and interpreter: STOP Sleep Apnea - translator and interpreter Hx Hypertension No 11/13/24 12:37 Hx Sleep Apnea Yes 11/13/24 12:37 CPAP Yes: NOT USING 11/13/24 12:37 BIPAP No 11/13/24 12:37 Do you snore loudly (louder than talking or can be heard Do you often feel tired/ fatigued/ sleepy during daytime? Has anyone observed you stop breathing during sleep? STOP Results Positive 11/13/24 12:37 QUESTION #5 FULL TEXT : Do you snore loudly (louder than talking or can be heard through closed doors)? 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 Specify any problems Hx of Preganancy in last 3 No 11/13/24 12:37 Months Nurse Filling Out Transfusion DSCHRIBER 11/13/24 12:37 & Questions: Date: 11/13/24 11/13/24 12:37 Time: 12:39 11/13/24 12:37 Patient unable to answer at this time (ie. confused, unrespo /Reproduction History /Reproductive History - translator and interpreter: /Reproductive Hx- translator and interpreter Hx Now No 11/13/24 12:37 Gestational Age (in weeks): EDC: Hx Hx Para Hx Section SAB No 11/13/24 12:37 Active Medications Active Medications: Current Medications Generic Name Dose Route Start Last Admin Trade Name Freq PRN Reason Stop Dose Admin Lactated Ringer's 1,000 mls @ 15 mls/hr 11/16/24 12:15 11/16/24 12:38 IV 15 mls/hr .Q48H JOSE F Administration PFSH Medical History CPAP (continuous positive airway pressure) dependence Post-menopausal History of ulceration LLQ abdominal pain Gastritis, bile acid reflux Low serum IgM for age Diarrhea Fatigue IBS (irritable bowel syndrome) Irritable bowel syndrome with diarrhea Spencer esophagus High cholesterol Back pain Dietary restriction Gastric reflux Non-smoker History of echocardiogram History of stress test Cardiology follow-up encounter History of irregular heartbeat Chest pain Alternating constipation and diarrhea Abdominal pain Annular tear of lumbar disc Chest pain SVT (supraventricular tachycardia) Diabetes Chest pressure Vitamin D deficiency Vitamin B12 deficiency Low back problem Arthritis UTI (urinary tract infection) Head ache Segmental and somatic dysfunction of lumbar region Segmental and somatic dysfunction of pelvic region DDD (degenerative disc disease), lumbar Facet arthritis of lumbar region Type 2 diabetes mellitus Nonrheumatic mitral (valve) prolapse Paroxysmal supraventricular tachycardia Dyspnea on exertion Mixed hyperlipidemia Atypical chest pain Night sweats Encounter for long-term current use of high risk medication Palpitations Mitral valve prolapse Wound, open, abdominal wall, anterior Diabetes mellitus Abscess of abdominal wall Post-op pain Home Medications ?Medication ?Instructions ?Recorded ?Last Taken ?Type ezetimibe 10 mg tablet (Zetia) 10 mg PO DAILY cholesterol 09/24/14 11/15/24 History cholecalciferol (vitamin D3) 125 125 mcg PO DAILY 10/21/22 11/15/24 History mcg (5,000 unit) capsule mecobalamin (vitamin B12) 1,000 1,000 mcg PO DAILY 10/21/22 11/15/24 History mcg chewable tablet Oral appliance #1 ea 01/26/23 Unknown Rx tirzepatide 7.5 mg/0.5 mL 7.5 mg subcut SA 08/02/23 11/04/24 History subcutaneous pen injector (Eli) cholestyramine-aspartame 4 gram 4 g PO DAILY #60 ea 11/12/23 11/15/24 Rx oral powder for susp in a packet (Cholestyramine Light) metoprolol tartrate 25 mg tablet 25 mg PO DAILY #180 tabs 08/29/24 11/15/24 Rx pantoprazole 40 mg tablet,delayed 40 mg PO BID #60 tabs 09/10/24 11/16/24 Rx release hyoscyamine sulfate 0.125 mg 0.125 mg sublingual Q6-8H PRN 10/10/24 11/15/24 Rx sublingual tablet epigastric pain #15 tabs Allergy/AdvReac Type Severity Reaction Status Date / Time exenatide (From Byetta) AdvReac Severe dizziness Verified 11/16/24 12:23 pravastatin (From Pravachol) AdvReac Severe Myalgias Verified 11/16/24 12:23 atorvastatin (From Lipitor) AdvReac Intermediate Muscle pain Verified 11/16/24 12:23 simvastatin (From Zocor) AdvReac Intermediate Myalgias Verified 11/16/24 12:23 Family History Mother CAD (coronary artery disease) Heart disease Hypertension Diabetes Myocardial infarction, Onset Age: 78 Hyperlipidemia Father Brain tumor Cancer Hyperlipidemia Hypertension Brother Aortic aneurysm Hyperlipidemia Hypertension Grandmother Arthritis Grandfather Diabetes Surgical History History of esophagogastroduodenoscopy (EGD) History of colonoscopy History of cardiac catheterization S/P left inguinal hernia repair History of appendectomy History of shoulder surgery History of hysterectomy History of foot surgery History of cholecystectomy S/P foot surgery Social History household members: spouse housing: house current occupational status: employed 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 Smoking Status: Never smoker alcohol intake: never substance use type: does not use diet: low carbohydrate caffeine: Yes Type: carbonated beverages Number of servings: 1 what type of physical activity do you participate in: walking frequency: 1-2 times per week seatbelt use: always do you feel safe at home: Yes Review of Systems (Anesthesia) ROS Narrative System reviewed and no additional complaints, except as documented.
--- NOTE | 2024-11-16 13:41 | PCM.HP.STD ---
HPI - General General Date of Admission: 11/16/24 Date of Service: 11/16/24 Chief Complaint: Dysphagia and abdominal pain HPI Narrative PING CHUNG, is a 69 F who presentsChief Complaint: follow-up Details: OV 10/10/2024 68-year-old female with history of Spencer's Esophagus and cholecystectomy, presenting with episodic epigastric pain suggestive of intermittent bowel obstruction associated with gastroparesis. Symptoms of nausea, vomiting, inability to pass gas, and sporadic bowel movements support diagnosis of gastroparesis, likely influenced by medications such as Mounjaro, aligning with the delayed gastric emptying study conducted in 2021. The reported episodes are intermittent, and it is suspected that the patient may experience periods of gastrointestinal motility dysfunction or spasm. Patient Instructions: - Avoid triggering foods including corn, lettuce, and heavy or tomato-based sauces to reduce gastrointestinal discomfort. - Alert medical staff to any acute episode of abdominal pain for prompt abdominal X-ray evaluation. - Hold Cholestyramine during episodes of acute pain. - Schedule and undergo the UGI/SBFT as soon as feasible. - For episode-associated pain, take hyoscyamine as instructed and allow the medication time for effect. - Continue taking pantoprazole as prescribed twice daily. - Seek immediate care for persistent vomiting, pain lasting beyond typical onset, or notable reduction in bowel movements. UGI/Barium Swallow 11/01/2024 Benign gastric ulcers. Gastroesophageal reflux. Intermittent mid to distal esophageal spasm was seen. Tablet passed without difficulty - she reports having recurrent episodes - feels like food is trapped in the lower esophagus, until she can belch to get it down I feel like I have to puree my food to get it down - frequent episodes of lower esophageal dysphagia, will vomit to dislodge - remains on PPI BID - infrequent caffeine - denies any weight loss - hates mint and does not think she would be able to tolerate PFSH Medical History CPAP (continuous positive airway pressure) dependence Post-menopausal History of ulceration LLQ abdominal pain Gastritis, bile acid reflux Low serum IgM for age Diarrhea Fatigue IBS (irritable bowel syndrome) Irritable bowel syndrome with diarrhea Spencer esophagus High cholesterol Back pain Dietary restriction Gastric reflux Non-smoker History of echocardiogram History of stress test Cardiology follow-up encounter History of irregular heartbeat Chest pain Alternating constipation and diarrhea Abdominal pain Annular tear of lumbar disc Chest pain SVT (supraventricular tachycardia) Diabetes Chest pressure Vitamin D deficiency Vitamin B12 deficiency Low back problem Arthritis UTI (urinary tract infection) Head ache Segmental and somatic dysfunction of lumbar region Segmental and somatic dysfunction of pelvic region DDD (degenerative disc disease), lumbar Facet arthritis of lumbar region Type 2 diabetes mellitus Nonrheumatic mitral (valve) prolapse Paroxysmal supraventricular tachycardia Dyspnea on exertion Mixed hyperlipidemia Atypical chest pain Night sweats Encounter for long-term current use of high risk medication Palpitations Mitral valve prolapse Wound, open, abdominal wall, anterior Diabetes mellitus Abscess of abdominal wall Post-op pain Home Medications ?Medication ?Instructions ?Recorded ?Last Taken ?Type ezetimibe 10 mg tablet (Zetia) 10 mg PO DAILY cholesterol 09/24/14 11/15/24 History cholecalciferol (vitamin D3) 125 125 mcg PO DAILY 10/21/22 11/15/24 History mcg (5,000 unit) capsule mecobalamin (vitamin B12) 1,000 1,000 mcg PO DAILY 10/21/22 11/15/24 History mcg chewable tablet Oral appliance #1 ea 01/26/23 Unknown Rx tirzepatide 7.5 mg/0.5 mL 7.5 mg subcut SA 08/02/23 11/04/24 History subcutaneous pen injector (Eli) cholestyramine-aspartame 4 gram 4 g PO DAILY #60 ea 11/12/23 11/15/24 Rx oral powder for susp in a packet (Cholestyramine Light) metoprolol tartrate 25 mg tablet 25 mg PO DAILY #180 tabs 08/29/24 11/15/24 Rx pantoprazole 40 mg tablet,delayed 40 mg PO BID #60 tabs 09/10/24 11/16/24 Rx release hyoscyamine sulfate 0.125 mg 0.125 mg sublingual Q6-8H PRN 10/10/24 11/15/24 Rx sublingual tablet epigastric pain #15 tabs Allergy/AdvReac Type Severity Reaction Status Date / Time exenatide (From Byetta) AdvReac Severe dizziness Verified 11/16/24 12:23 pravastatin (From Pravachol) AdvReac Severe Myalgias Verified 11/16/24 12:23 atorvastatin (From Lipitor) AdvReac Intermediate Muscle pain Verified 11/16/24 12:23 simvastatin (From Zocor) AdvReac Intermediate Myalgias Verified 11/16/24 12:23 Family History Mother CAD (coronary artery disease) Heart disease Hypertension Diabetes Myocardial infarction, Onset Age: 78 Hyperlipidemia Father Brain tumor Cancer Hyperlipidemia Hypertension Brother Aortic aneurysm Hyperlipidemia Hypertension Grandmother Arthritis Grandfather Diabetes Surgical History History of esophagogastroduodenoscopy (EGD) History of colonoscopy History of cardiac catheterization S/P left inguinal hernia repair History of appendectomy History of shoulder surgery History of hysterectomy History of foot surgery History of cholecystectomy S/P foot surgery Social History household members: spouse housing: house current occupational status: employed 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 [employer]. Smoking Status: Never smoker alcohol intake: never substance use type: does not use diet: low carbohydrate caffeine: Yes Type: carbonated beverages Number of servings: 1 what type of physical activity do you participate in: walking frequency: 1-2 times per week seatbelt use: always do you feel safe at home: Yes ROS Constitutional Constitutional: Denies fatigue, fever(s), poor appetite, weight gain or weight loss Gastrointestinal Gastrointestinal: Denies belching, bloating, change in bowel habits, change in stool character, chewing difficulty, coffee ground emesis, constipation, cramping, diarrhea, dyspepsia, dysphagia, early satiety, excessive flatus, fecal incontinence, heartburn, hematemesis, hematochezia, hemorrhoids, loose stools, melena, nausea, odynophagia, rectal bleeding, tenesmus, vomiting or weight changes Vital Signs Vital Signs Vital Signs: 11/16/24 12:25 11/16/24 12:25 Temperature 98.6 F Temperature Source Temporal Pulse Rate 68 Respiratory Rate 18 Respiratory Pattern Normal Blood Pressure 130/75 H Blood Pressure Mean 93 Blood Pressure Source Monitor Blood Pressure Position Semi-Fowlers Blood Pressure Location Right Arm Pulse Ox 100 Oxygen Delivery Method Room Air Weight Weight: 159 lb 9.835 oz Body Mass Index (BMI) 26.5 Physical Exam Const alert, oriented x3, no apparent distress and healthy appearing General Appearance: cooperative GI normal to inspection, nondistended, normoactive bowel sounds, soft to palpation, non-tender and non-distended Percussion: normal to percussion Rectal Exam: deferred Results Lab / Micro Data Labs: Laboratory Results - last 24 hr 11/16/24 12:29: POC Glucose 108 H Assessment & Plan Assessment/Plan (1) Dysphagia: (2) Nausea & vomiting: (3) Epigastric pain: PLAN: Assessment and Plan Assessment and Plan (1) Dysphagia: Status: Acute Plan The patient is a 69-year-old female presenting with symptoms related to swallowing difficulty and concerns about gastric ulcers. The patient reports intermittent episodes where food feels trapped in the esophagus, particularly after meals. These episodes have been occurring infrequently, but enough to cause concern. She describes the sensation as though food is laying in the esophagus until she is able to burp, which provides temporary relief. The sensation does not typically involve burning, but rather a feeling of being stuck. The patient underwent an UGI barium swallow test which revealed the presence of multiple small benign-appearing gastric ulcers located in the proximal and mid portions of the stomach, with normal passage of a barium tablet suggesting unobstructed esophageal transit. The patient expresses that the episodes of food feeling stuck in her esophagus have persisted and occur with certain foods, notably chicken, which often feels stock drier tender. She mentions that cutting food into smaller pieces helps manage the problem. She experiences on-and-off pain associated with these episodes but denies consistent heartburn sensation outside of these symptoms. The patient notes that she is taking pantoprazole BID, which was intended to manage GERD symptoms and potentially mitigate ulcer formation. Despite this treatment, the presence of gastric ulcers suggests continued gastric acid issues. Patient Instructions: EGD - (Denisse Benitez) Continue pantoprazole 40mg BID
--- NOTE | 2024-11-16 14:17 | PCM.POST.ANE ---
Anesthesia: Postop Eval I Current Vital Signs Temperature: 97.9 F Pulse Rate: 72 Blood Pressure: 148/88 Respiratory Rate: 16 Pulse Ox: 97 Oxygen Delivery Method: Room Air Assessment Airway patent: Yes Spontaneous unlabored respirations: Yes Mental status: Awake and Calm nausea: No Vomiting: No Anesthesia Complication: No Fluid Hydration Crystalloid volume administer (ml): 100 Total IV fluid infused: 100 Progress Note Anesthesia document: Postop Eval 1 completed: Yes
--- NOTE | 2024-11-16 14:19 | OP.PROVAT_ITS ---
11/16/2024 Leticia Pugh [address] [place] [address] Re : Upper GI endoscopy procedure for Radha Ramos Dear Dr. Pugh This procedure was performed on November. My impressions and recommendations are as follows: Impressions : - Normal esophagus. - Erythematous mucosa in the stomach. Biopsied. - No gross lesions in the entire examined duodenum. Recommendations : - Discharge patient to home. - Resume previous diet. - Continue present medications. - Await pathology results. My findings are described in the full procedure note, which is enclosed. If I can be of further assistance, please feel free to contact me at . Sincerely, Tyree Keita, 11/16/2024 2:18:35 PM This report has been signed electronically.
--- NOTE | 2024-11-16 14:19 | OP.EGD_ITS ---
Patient Name: Radha Ramos Procedure Date: 11/16/2024 2:05 PM Date of : 1955 Age: 69 Procedure: Upper GI endoscopy Indications: Epigastric abdominal pain, Abdominal pain in the left upper quadrant, Functional Dyspepsia, Failure to respond to medical treatment Providers: Tyree Keita DO Referring MD: Leticia Pugh Medicines: Monitored Anesthesia Care Patient Profile: This is a 69 year old female. Refer to note in patient chart for documentation of history and physical. Patient has symptoms of chronic abdominal cramping, chronic abdominal distention, acute epigastric abdominal pain and chronic dyspepsia. Complications: No immediate complications. Procedure: Pre-Anesthesia Assessment: - Prior to the procedure, a History and Physical was performed, and patient medications and allergies were reviewed. The patient is competent. The risks and benefits of the procedure and the sedation options and risks were discussed with the patient. All questions were answered and informed consent was obtained. Patient identification and proposed procedure were verified by the physician in the pre-procedure area. Mental Status Examination: alert and oriented. Airway Examination: normal oropharyngeal airway and neck mobility. Respiratory Examination: clear to auscultation. CV Examination: normal. Prophylactic Antibiotics: The patient does not require prophylactic antibiotics. Prior Anticoagulants: The patient has taken no anticoagulant or antiplatelet agents except for NSAID medication. ASA Grade Assessment: II - A patient with mild systemic disease. After reviewing the risks and benefits, the patient was deemed in satisfactory condition to undergo the procedure. The anesthesia plan was to use monitored anesthesia care (MAC). Immediately prior to administration of medications, the patient was re-assessed for adequacy to receive sedatives. The heart rate, respiratory rate, oxygen saturations, blood pressure, adequacy of pulmonary ventilation, and response to care were monitored throughout the procedure. The physical status of the patient was re-assessed after the procedure. After obtaining informed consent, the endoscope was passed under direct vision. Throughout the procedure, the patient's blood pressure, pulse, and oxygen saturations were monitored continuously. The Endoscope was introduced through the mouth, and advanced to the fourth part of the duodenum. Small bowel enteroscopy was deemed necessary. The upper GI endoscopy was accomplished without difficulty. The patient tolerated the procedure well. Scope In: 2:12:01 PM Scope Out: 2:14:40 PM Total Procedure Duration Time 0 hours 2 minutes 39 seconds Findings: The examined esophagus was normal. Diffuse moderately erythematous mucosa without bleeding was found in the entire examined stomach. Biopsies were taken with a cold forceps for histology. Verification of patient identification for the specimen was done. Biopsies were taken with a cold forceps for Helicobacter pylori testing. Verification of patient identification for the specimen was done. Estimated blood loss was minimal. No gross lesions were noted in the entire examined duodenum. Impression: - Normal esophagus. - Erythematous mucosa in the stomach. Biopsied. - No gross lesions in the entire examined duodenum. Recommendation: - Discharge patient to home. - Resume previous diet. - Continue present medications. - Await pathology results. Procedure Code(s): --- Professional --- 68684, Small intestinal endoscopy, enteroscopy beyond second portion of duodenum, not including ileum; with biopsy, single or multiple CPT copyright 2021 [employer]. All rights reserved. The codes documented in this report are preliminary and upon retail director review may be revised to meet current compliance requirements. Tyree Keita DO 11/16/2024 2:18:35 PM This report has been signed electronically. Number of Addenda: 0 Note Initiated On: 11/16/2024 2:05 PM
--- NOTE | 2024-11-16 19:33 | PCM.POSTANE2 ---
Anesthesia Postop Eval I Sum Postop Eval Completion status Anesthesia document: Postop Eval 1 completed: Yes Anesthesia Postop Eval I Summary Anesthesia Postop Eval I Summary: Anesthesia Postop Eval I: Assessment Summary Airway patent Yes 11/16/24 14:22 SYSTEM [email or web address].MEDM Spontaneous unlabored Yes 11/16/24 14:22 SYSTEM ARCHITECT.MEDM respirations Mental status Awake,Calm 11/16/24 14:22 SYSTEM [email or web address].MEDM nausea No 11/16/24 14:22 SYSTEM ARCHITECT.MEDM Vomiting No 11/16/24 14:22 SYSTEM ARCHITECT.MEDM Anesthesia Postop Eval I: Fluid Summary Crystalloid volume administer 100 11/16/24 14:22 SYSTEM ARCHITECT.MEDM (ml) Colloids volume administered ( ml) Blood Product volume administered (ml) Total IV fluid infused 100 11/16/24 14:22 SYSTEM ARCHITECT.MEDM Anesthesia Postop Eval I: Summary Notes Anesthesia Complication No 11/16/24 14:22 SYSTEM ARCHITECT.MEDM Anesthesia Complication Comment: Post-operative progress note Anesthesia: Postop Eval II Evaluation Mental status: Awake and Calm Pain Level: 0 nausea: No Vomiting: No Complications Anesthesia Complication: No
--- NOTE | 2024-11-16 19:33 | POSTOPAN2_ITS ---
Anesthesia Postop Eval I Sum Postop Eval Completion status Anesthesia document: Postop Eval 1 completed: Yes Anesthesia Postop Eval I Summary Anesthesia Postop Eval I Summary: Anesthesia Postop Eval I: Assessment Summary Airway patent Yes 11/16/24 14:22 CRANE CREW SUPERVISOR.MEDM Spontaneous unlabored Yes 11/16/24 14:22 CRANE CREW SUPERVISOR.MEDM respirations Mental status Awake,Calm 11/16/24 14:22 CRANE CREW SUPERVISOR.MEDM nausea No 11/16/24 14:22 CRANE CREW SUPERVISOR.MEDM Vomiting No 11/16/24 14:22 CRANE CREW SUPERVISOR.MEDM Anesthesia Postop Eval I: Fluid Summary Crystalloid volume administer 100 11/16/24 14:22 CRANE CREW SUPERVISOR.MEDM (ml) Colloids volume administered ( ml) Blood Product volume administered (ml) Total IV fluid infused 100 11/16/24 14:22 CRANE CREW SUPERVISOR.MEDM Anesthesia Postop Eval I: Summary Notes Anesthesia Complication No 11/16/24 14:22 CRANE CREW SUPERVISOR.MEDM Anesthesia Complication Comment: Post-operative progress note Anesthesia: Postop Eval II Evaluation Mental status: Awake and Calm Pain Level: 0 nausea: No Vomiting: No Complications Anesthesia Complication: No
== END 2024-11-16 14:57 | disposition home or self-care (01) ==
LOC: EN 12:08 → AC 12:08
PROVIDERS: PCP Internal Medicine; Referring Provider Internal Medicine; Visit Provider Internal Medicine Gastroenterology
PROC: 0DJ08ZZ Inspection of Upper Intestinal Tract, Via Natural or Artificial Opening Endoscopic (ICD-10-PCS; CPT 43235; principal; 2024-11-16 13:10)
DX: K29.50 Unspecified chronic gastritis without bleeding (principal); E11.9 Type 2 diabetes mellitus without complications; E78.2 Mixed hyperlipidemia; Z90.49 Acquired absence of other specified parts of digestive tract; Z79.899 Other long term (current) drug therapy; K21.9 Gastro-esophageal reflux disease without esophagitis; Z79.85 Long-term (current) use of injectable non-insulin antidiabetic drugs
CPT/HCPCS: 44361; 82962; 88305

== ENCOUNTER → 2025-01-04 | Outpatient (CLI) | payer MEDICARE, SELFPAY ==
[2025-01-04 11:43] LABS: Red Blood Cells-Urine 0 SEEN /hpf (0-5)
[2025-01-04 12:33] LABS: Color, Urine Yellow (Yellow); Glucose, Dipstick Normal (Normal); Ketone-Dipstick Negative (Negative); Leukocyte Esterase-Dipstick Negative /ul (Negative); Nitrite-Dipstick Negative (Negative); Occult Blood-Urine Negative /ul (Negative); Protein-Dipstick 15 mg/dl (Negative); Specific Gravity, Urine 1.020 (1.002-1.030)
[2025-01-04 12:35] LABS: Hematocrit 42.3 % (37-47); Hemoglobin 14.1 g/dL (12.0-15.0); Immature Granulocytes Count 0.020 X10^3/uL (0.0-0.0); Mean Corp Hgb Conc 33.3 g/dL (32-36); Mean Corpuscular Volume 85.3 fL (81-99); Mean Platelet Vol. 9.5 fl (6.2-12.0); NRBC Flagged by Analyzer 0 % (0-5); Platelet Count 244 K/mm3 (150-450); RBC Distribution Width CV 13.1 % (11.6-14.6); RBC Distribution Width SD 40.8 fl (35.1-43.9); Red Blood Count 4.96 M/mm3 (4.2-5.4); Urine Bilirubin Dipstick 1 mg/dL (Negative); White Blood Count 6.1 K/mm3 (4.4-11.0)
[2025-01-04 12:57] LABS: Squamous Epithelial Cells - UA 10-25 SEEN /hpf (5-10)
[2025-01-04 12:58] LABS: Mucous, Urine 1+ /hpf (<or=2+)
[2025-01-04 13:05] LABS: Creatinine, Urine (random) 183.00 mg/dL (28.00-217.00); Microalbumin,Random Urine < 12.0 mg/L (<20 mg/L)
[2025-01-04 13:33] LABS: AST(SGOT) 27 U/L (<=31); Alanine Aminotransfer ALT/SGPT 13 U/L (<=34); Albumin, Serum 4.6 g/dL (3.4-4.8); Alkaline Phosphatase 94 U/L (35-104); Anion Gap 10 (5-15); BUN 14 mg/dL (4-19); BUN/Creat Ratio 15.0 RATIO (10-20); Calcium,Total 9.3 mg/dL (7.6-11.0); Carbon Dioxide 23.8 mmol/L (21.0-32.0); Chloride 105 mmol/L (98-108); Cholesterol 185 mg/dL (<=200); Globulin 2.8 g/dL (2.2-4.2); Glucose 102 mg/dL (70-99); Low Density Lipoprotein Calc. 112 mg/dL; Potassium 4.3 mmol/L (3.3-5.1); Triglycerides 78 mg/dL; Very Low Density Lipoprotein 16 mg/dL (5-40); Vitamin B12 755 pg/mL (180-914); cholesterol:hdl ratio screen 3.16
[2025-01-09 14:09] LABS: Vitamin D 1,25-Dihydroxy 38.7 pg/mL (24.8-81.5)
== END | disposition home or self-care (01) ==
LOC: LAB 11:29
PROVIDERS: PCP Internal Medicine; Referring Provider Internal Medicine; Visit Provider Internal Medicine
DX: E11.9 Type 2 diabetes mellitus without complications (principal); E55.9 Vitamin D deficiency, unspecified; E53.8 Deficiency of other specified B group vitamins; E78.00 Pure hypercholesterolemia, unspecified
CPT/HCPCS: 36415; 80053; 80061; 81001; 82043; 82570; 82607; 82652; 85025

== ENCOUNTER → 2025-01-31 | Outpatient (CLI) | payer MEDICARE, SELFPAY ==
--- NOTE | 2025-01-31 11:12 | MRI_ITS ---
PROCEDURE: LOWER EXT JOINT ONLY (ROUTINE) 01/31/2025 REASON FOR EXAM: LEFT HIP PAIN / FALLS TECHNIQUE: Procedure Code: MRILEJ Modality: MR Procedure: LOWER EXT JOINT ONLY (ROUTINE) Multiplanar and multisequence images were obtained without IV contrast administration. COMPARISON: COMPARISON : Left hip and pelvis study of 08/28/2024. FINDINGS: Degenerative changes of the visualized lower lumbar spine again noted. Minimal right hip degenerative changes and mild left hip degenerative changes are seen, with some osseous reactive changes seen in the left, along with mild irregular articular cartilage thinning superiorly. No evidence of femoral head osteonecrosis. No joint effusion is seen. No acute osseous signal changes are seen. No soft tissue mass is seen. No free or loculated fluid collection is noted. MRI/Lower Ext Joint Only (Routine) IMPRESSION: 1. Mild hip joint degenerative changes [id number]. 2. Degenerative changes of the visualized lower lumbar spine again noted. 3. No acute osseous change is seen. Reading Location: [id number]
== END | disposition home or self-care (01) ==
PROVIDERS: PCP Internal Medicine; Referring Provider Internal Medicine; Visit Provider Internal Medicine
DX: M25.552 Pain in left hip (principal); G89.29 Other chronic pain
CPT/HCPCS: 73721

== ENCOUNTER 2025-02-22 15:00 | Outpatient (RCR) | payer MEDICARE, SELFPAY ==
--- NOTE | 2025-01-22 14:30 | HP.PTEVAL ---
Patient's Visit Information Visit Information Visit Information: PING CHUNG is a 69 year old F referred to Physical Therapy by Dr. Leticia Pugh DO with a diagnosis of PAIN LEFT HIP ,CHRONIC PAIN. Date of Evaluation: 01/22/25 Physical Therapist: Morgan Barnes PT, Cert MDT, OCS Visit Plan Frequency: 2x /Week Duration: 4 Weeks Plan: PT INTERVENTIONS MANUAL THERAPY STM/STICK IT BAND ,MODALITIES HIP ,STRENGTHENING EX'S GLUT MEDIUS AND STRETCH HIP/IT BAND Subjective Subjective: This 69 y/o female presents to physical therapy for chronic left hip pain. Patient has left hip pain for ~ year . Seen DR alexa JENSEN and had x-rays showed OA. Plan for MRI of hip. Patient had cortisone injection by DR. Mejia. Pain in left lateral hip to groin to thigh. Patient aggravating factors walking ,standing ,squatting ,stairs and unable to sleep on left side. Alleviating factors rest. Denies paresthesia/tingling-. Bowel/bladder- Coughing/sneezing-. Patient has minor back pain. Aggravating factors back not specific . Pain affects sleeping and left side .Pain constant pain Patient symptoms affects QOL and function/walking. Patient goals to decrease pain. 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 Pain Left Hip: Pain Intensity (Out of 10): 5 Pain Intensity Range: 10 Objective Objective: POSTURE: WFL GAIT: reciprocal pattern NEURO: denies paresthesia/tingling PALAPTION: TTP greater trochanteric ,IT BAND left PROM:hip flexion 110 degrees ,IR 20 Degrees MMT: quads/hamstrings 4/5 ,hip flexion 4/5 ,( glut medius ) left 21.1 LUMBAR ROM: flexion min loss ,extension mod loss ,side gides mod loss Special Tests L/S Slump test left side: Negative L/S Slump test right side: Negative L/S Left Straight Leg Raise: Negative L/S Right Straight Leg Raise: Negative Lumbar Standing: Flexion - Mechanical Response: No effect Lumbar Standing: Flexion - Symptoms During Testing: No effect Lumbar Standing: Flexion - Symptoms After Testing: No effect Lumbar Standing: Extension - Mechanical Response: No effect Lumbar Standing: Extension - Symptoms During Testing: No effect Lumbar Standing: Extension - Symptoms After Testing: No effect Lumbar Standing: Right Side Glides - Mechanical Response: No effect Lumbar Standing: Right Side Lamar - Symptoms During Testing: No effect Lumbar Standing: Right Side Lamar - Symptoms After Testing: No effect Lumbar Standing: Left Side Lamar - Mechanical Response: No effect Lumbar Standing: Left Side Lamar - Symptoms During Testing: No effect Lumbar Standing: Left Side Lamar - Symptoms After Testing: No effect Comments:: PAIN LATERAL HIP CONSTANT L Hip Trendelenberg - Glut Medius: Negative L Hip Rochelle - IT Band: Negative Balance/Special Test Scores Oswestry Low Back Score: 24 Goals Goal 1:: Patient to be I with HEP for hip Goal Time Frame: 4-6 Weeks Goal 2:: Patient to improve LFES score by 5 points to improve QOL and functiuon Goal Time Frame: 4-6 Weeks Goal 3:: Patient to improve peak force hip glut medius by 5 # to improve gait Goal Time Frame: 4-6 Weeks Goal 4:: Patient to demonstrate 50% improvement with less pain and improved function Goal Time Frame: 4-6 Weeks Goal 5:: Patient to decrease pain left hip to sleep on left side Goal Time Frame: 4-6 Weeks Rehabilitation Potential Physical Therapy Diagnosis: This patient has left hip lateral pain with TTP greater trochanteric ,IT band ,weakness glut medius,impairs walking and unable to sleep on side thus benefit from skilled PT Rehabilitation Potential: Good Anticipated Interventions Patient/Client Instruction: Educate patient on: Condition and Plan of Care For the Purpose of:: To decrease pain, To increase ROM, To improve muscle performance and motor function, To improve ability to perform ADL's, To increase tolerance to activity/condition/position, To improve ability of physical actions for home/community/work/leisure, To improve health of tissue, To decrease soft tissue restriction and To increase flexibility/ROM Therapeutic Exercise to Include: Strength training, Flexibilty training, Active ROM and Dynamic Lumbar Stabilization Comment: GLUT MEDIUS For the Purpose of:: To decrease pain, To increase ROM, To improve muscle performance and motor function, To increase tolerance to activity/condition/position, To improve ability of physical actions for home/community/work/leisure, To improve gait and locomotor functions, To improve health of tissue, To decrease soft tissue restriction and To increase flexibility/ROM Manual Therapy Techniques to Include: Soft tissue mobilization Comment: IT BAND /STICK For the Purpose of:: To decrease pain, To increase ROM, To improve health of tissue and To decrease soft tissue restriction TENS: Yes IF ES: Yes Cryotherapy (ice pack, ice massage): Yes Thermo therapy (hot pack): Yes Ultrasound (thermal/non thermal): Yes For the Purpose of:: To decrease pain, To increase ROM, To improve nutrient delivery to tissue, To increase oxygenation perfusion, To improve health of tissue and To decrease soft tissue restriction Text: Thank you for the opportunity to evaluate your patient. For Medicare and Medicare HMO plans, please review the plan of care and approve it. It will need to be FAXED BACK to us at [phone] for Medicare purposes. For Medicare only, by signing this I certify the plan of care. Please let me know if there are questions or concerns regarding this plan of care. Physician Signature: Date:
--- NOTE | 2025-02-22 15:30 | HP.PTDCSUM ---
Discharge Summary D/C summary: It has been my pleasure to treat PING CHUNG referred by Dr. Leticia Pugh DO, with the diagnosis of PAIN LEFT HIP ,CHRONIC PAIN for a total of 9 visit(s). Discharge Date: 02/22/25 Please see the following information for a summary of their discharge status. Subjective Subjective: Ready to do be doing good Dong ex' on Pain Left Hip: Pain Intensity (Out of 10): 3 Overall Improvement % Improvement: 50 Objective Objective/Function: POSTURE: WFL GAIT: reciprocal pattern NEURO: denies paresthesia/tingling PALAPTION: TTP greater trochanteric ,IT BAND left PROM:hip flexion 110 degrees ,IR 20 Degrees MMT: quads/hamstrings 4/5 ,hip flexion 4/5 ,( glut medius ) left 21.1 LUMBAR ROM: flexion min loss ,extension min loss ,side gides min loss Goals Goal 1:: Patient to be I with HEP for hip Goal Progress: Goal Met Goal 2:: Patient to improve LFES score by 5 points to improve QOL and functiuon Goal Progress: Goal Met Goal 3:: Patient to improve peak force hip glut medius by 5 # to improve gait Goal Progress: Goal Met Goal 4:: Patient to demonstrate 50% improvement with less pain and improved function Goal Progress: Goal Met Goal 5:: Patient to decrease pain left hip to sleep on left side Goal Progress: Goal Met Plan Plan: D/C D/C Information Discharge Comments: HEP d/c sentence: If there are questions or concerns regarding this patient's physical therapy, please feel free to call me at [phone]. Thank you for the referral of this patient. Sincerely, Morgan Barnes, PT, Cert MDT, OCS Balance/Gait/Functional tests Balance/Special Test Scores Oswestry Low Back Score: 5 Improvement % Improvement: 50
== END 2025-02-22 19:00 | disposition home or self-care (01) ==
LOC: PT 15:00
PROVIDERS: PCP Internal Medicine; Referring Provider Internal Medicine; Visit Provider Internal Medicine
DX: M25.552 Pain in left hip (principal); G89.29 Other chronic pain
CPT/HCPCS: 97110; 97140; 97162; 97530